=== PATIENT | male | born 1945 | race Caucasian/White ===

== ENCOUNTER 2018-05-06 09:59 | Outpatient (CLI) | payer MEDICARE, BC, SELFPAY ==
[2018-05-06 10:22] LABS: Abs Immature Grans 0.03 k/cumm (0.0-0.09); Absolute Basophil Count 0.04 k/cumm (0.0-0.2); Absolute Eosinophil Count 0.18 k/cumm (0.0-0.7); Absolute Lymphocyte Count 1.26 k/cumm (1.2-3.4); Absolute Monocyte Count 0.56 k/cumm (0.11-0.7); Absolute Neutrophil Count 4.98 k/cumm (1.2-6.7); Basophils % 0.6; Eosinophils % 2.6; HCT 46.1 % (40.0-50.0); HGB 15.2 g/dL (13.5-17.5); Immature Grans % 0.4; Lymphocytes % 17.9; Mean Corpuscular Hemoglobin 31.7 pg (27.0-33.0); Mean Platelet Volume 10.3 fL (8.0-11.0); Monocytes % 7.9; Neutrophils % 70.6; Platelet Count 317 x1000/uL (130-400); RBC Distribution Width 15.9 % (11.8-14.1); White Blood Cell Count 7.05 k/cumm (4.4-10.8)
[2018-05-06 11:28] LABS: ALT 21 U/L (12-78); AST 12 U/L (15-37); Albumin 3.9 g/dL (3.4-5.0); Alkaline Phosphatase 70 U/L (46-116); Anion Gap 6.1 mmol/L (3-11); BUN 17 mg/dL (7-18); Bilirubin, Total 0.4 mg/dL (0.2-1.0); CO2 28.9 mmol/L (21.0-32.0); CREATININE 1.13 mg/dL (0.70-1.30); Chloride 104 mmol/L (98-107); Glucose 92 mg/dL (70-100); Potassium 4.8 mmol/L (3.5-5.1); Sodium 139 mmol/L (136-145); Total Protein 6.7 g/dL (6.4-8.2)
== END 2018-05-06 10:19 ==
PROVIDERS: PCP Nurse Practitioner; Visit Provider Internal Medicine Rheumatology
DX: M06.4 Inflammatory polyarthropathy (principal); Z79.899 Other long term (current) drug therapy; G89.29 Other chronic pain
CPT/HCPCS: 36415; 80053; 85025

== ENCOUNTER 2018-05-15 13:07 | Outpatient (REF) | payer MEDICARE, BC, SELFPAY ==
[2018-05-18 08:49] LABS: PSA, Screening 0.5 ng/ml (0-6.5)
== END 2018-05-15 13:27 ==
LOC: NCHCN 13:07
PROVIDERS: PCP Nurse Practitioner; Visit Provider Nurse Practitioner
DX: R82.90 Unspecified abnormal findings in urine (principal); Z87.448 Personal history of other diseases of urinary system; Z12.5 Encounter for screening for malignant neoplasm of prostate
CPT/HCPCS: 84153; 87086

== ENCOUNTER 2018-05-18 15:26 | Outpatient (REF) | payer MEDICARE, BC, SELFPAY ==
[2018-05-18 22:19] LABS: Bilirubin Negative (Negative); Blood Trace-intact (Negative); Clarity Clear; Glucose Negative (Negative); Ketones Negative (Negative); Leukocyte Esterase Negative (Negative); Nitrite Negative (Negative); Specific Gravity 1.015 (1.005-1.025); Urobilinogen 0.2 EU/dL (Up TO 0.2)
[2018-05-18 22:35] LABS: Bacteria Negative HPF (Negative); C & S Indicated? No; Casts Negative LPF (Negative); Crystals Negative HPF (Negative); Epithelial Cells Negative HPF (Negative); Mucus Negative (Negative); Other Cells Negative (Negative); RBC 0-2 (0-2); WBC Negative HPF (0-5)
== END 2018-05-18 15:46 ==
LOC: NCHCN 15:26
PROVIDERS: PCP Nurse Practitioner; Visit Provider Nurse Practitioner
DX: R31.9 Hematuria, unspecified (principal)
CPT/HCPCS: 81003; 81015

== ENCOUNTER → 2018-06-04 13:41 | Outpatient (BNVA) | payer MEDICARE, BC, SELFPAY | PROVIDERS: PCP Nurse Practitioner; Visit Provider Nurse Practitioner Primary Care | DX: G47.33 Obstructive sleep apnea (adult) (pediatric) (principal); E66.9 Obesity, unspecified; E78.5 Hyperlipidemia, unspecified; I10 Essential (primary) hypertension; I49.5 Sick sinus syndrome; Z45.02 Encounter for adjustment and management of automatic implantable cardiac defibrillator | CPT/HCPCS: 93279; 99213 ==

== ENCOUNTER → 2018-06-26 09:46 | Outpatient (BNVA) | payer MEDICARE, BC, SELFPAY | PROVIDERS: PCP Nurse Practitioner; Visit Provider Urology | DX: R31.29 Other microscopic hematuria (principal) | CPT/HCPCS: 81003; 99214 ==

== ENCOUNTER 2018-09-07 15:41 | Outpatient (CLI) | payer MEDICARE, BC, SELFPAY ==
[2018-09-07 16:03] LABS: Abs Immature Grans 0.02 k/cumm (0.0-0.09); Absolute Basophil Count 0.02 k/cumm (0.0-0.2); Absolute Eosinophil Count 0.19 k/cumm (0.0-0.7); Absolute Lymphocyte Count 1.15 k/cumm (1.2-3.4); Absolute Monocyte Count 0.55 k/cumm (0.11-0.7); Absolute Neutrophil Count 4.48 k/cumm (1.2-6.7); Basophils % 0.3; HCT 51.1 % (40.0-50.0); Immature Grans % 0.3; Lymphocytes % 17.9; Mean Corp. HGB Concentration 33.3 g/dL (32.0-36.0); Mean Corpuscular Hemoglobin 31.7 pg (27.0-33.0); Mean Corpuscular Volume 95.2 fL (80-95); Mean Platelet Volume 10.6 fL (8.0-11.0); Monocytes % 8.6; Neutrophils % 69.9; Platelet Count 298 x1000/uL (130-400); RBC 5.37 m/cumm (4.50-6.00); RBC Distribution Width 16.2 % (11.8-14.1); White Blood Cell Count 6.41 k/cumm (4.4-10.8)
[2018-09-07 17:04] LABS: ALT 27 U/L (12-78); AST 22 U/L (15-37); Albumin 4.3 g/dL (3.4-5.0); Alkaline Phosphatase 75 U/L (46-116); Anion Gap 10.4 mmol/L (3-11); BUN 17 mg/dL (7-18); Bilirubin, Total 0.8 mg/dL (0.2-1.0); CO2 28.6 mmol/L (21.0-32.0); CREATININE 1.42 mg/dL (0.70-1.30); Calcium 9.6 mg/dL (8.5-10.1); Chloride 103 mmol/L (98-107); Estimated GFR 48.73 (mL/min/1.73m2); Glucose 103 mg/dL (70-100); Sodium 142 mmol/L (136-145); Total Protein 7.3 g/dL (6.4-8.2)
== END 2018-09-07 16:01 ==
PROVIDERS: PCP Nurse Practitioner; Visit Provider Internal Medicine Rheumatology
DX: M06.9 Rheumatoid arthritis, unspecified (principal); Z87.39 Personal history of other diseases of the musculoskeletal system and connective tissue
CPT/HCPCS: 36415; 80053; 85025

== ENCOUNTER 2018-12-12 00:12 | Outpatient (CLI) | payer MEDICARE, BC, SELFPAY ==
[2018-12-12 10:02] LABS: Abs Immature Grans 0.01 k/cumm (0.0-0.09); Absolute Basophil Count 0.03 k/cumm (0.0-0.2); Absolute Eosinophil Count 0.13 k/cumm (0.0-0.7); Absolute Lymphocyte Count 1.09 k/cumm (1.2-3.4); Absolute Monocyte Count 0.64 k/cumm (0.11-0.7); Absolute Neutrophil Count 5.04 k/cumm (1.2-6.7); Basophils % 0.4; Eosinophils % 1.9; HCT 53.3 % (40.0-50.0); HGB 17.4 g/dL (13.5-17.5); Immature Grans % 0.1; Lymphocytes % 15.7; Mean Corp. HGB Concentration 32.6 g/dL (32.0-36.0); Mean Corpuscular Hemoglobin 30.9 pg (27.0-33.0); Mean Corpuscular Volume 94.5 fL (80-95); Mean Platelet Volume 11.5 fL (8.0-11.0); Monocytes % 9.2; Neutrophils % 72.7; Platelet Count 339 x1000/uL (130-400); RBC 5.64 m/cumm (4.50-6.00); RBC Distribution Width 16.8 % (11.8-14.1); White Blood Cell Count 6.94 k/cumm (4.4-10.8)
[2018-12-12 10:56] LABS: Iron 69 ug/dL (50-175); Total Iron Binding Capacity 294 ug/dL (250-450); Transferrin Sat 23 % (20-55)
[2018-12-12 10:57] LABS: ALT 20 U/L (12-78); AST 5 U/L (15-37); Albumin 3.8 g/dL (3.4-5.0); Alkaline Phosphatase 84 U/L (46-116); BUN 16 mg/dL (7-18); Bilirubin, Total 0.6 mg/dL (0.2-1.0); CREATININE 1.09 mg/dL (0.70-1.30); Chloride 105 mmol/L (98-107); Glucose 116 mg/dL (70-100); Potassium 5.2 mmol/L (3.5-5.1); Sodium 140 mmol/L (136-145); Total Protein 6.8 g/dL (6.4-8.2)
[2018-12-12 11:10] LABS: Calcium 8.7 mg/dL (8.5-10.1)
[2018-12-12 11:20] LABS: Magnesium 2.1 mg/dL (1.8-2.4); Vitamin B12 560 pg/mL (193-986)
== END 2018-12-12 00:32 ==
PROVIDERS: Internal Medicine Rheumatology; PCP Nurse Practitioner; Visit Provider Nurse Practitioner Family
DX: I10 Essential (primary) hypertension (principal); M06.4 Inflammatory polyarthropathy; I49.5 Sick sinus syndrome; E78.5 Hyperlipidemia, unspecified; N18.3 Chronic kidney disease, stage 3 (moderate); K21.9 Gastro-esophageal reflux disease without esophagitis; Z87.39 Personal history of other diseases of the musculoskeletal system and connective tissue; Z79.899 Other long term (current) drug therapy; G25.81 Restless legs syndrome; R73.09 Other abnormal glucose; R71.8 Other abnormality of red blood cells
CPT/HCPCS: 36415; 80053; 82607; 83540; 83550; 83735; 85025

== ENCOUNTER → 2019-01-26 09:24 | Outpatient (BNVA) | payer MEDICARE, BC, SELFPAY | PROVIDERS: PCP Nurse Practitioner; Visit Provider Nurse Practitioner Primary Care | DX: G47.33 Obstructive sleep apnea (adult) (pediatric) (principal); E66.9 Obesity, unspecified; E78.5 Hyperlipidemia, unspecified; I12.9 Hypertensive chronic kidney disease with stage 1 through stage 4 chronic kidney disease, or unspecified chronic kidney disease; Z45.010 Encounter for checking and testing of cardiac pacemaker pulse generator [battery]; N18.3 Chronic kidney disease, stage 3 (moderate); R55 Syncope and collapse | CPT/HCPCS: 93288; 99214 ==

== ENCOUNTER 2019-01-28 08:29 | Outpatient (CLI) | payer MEDICARE, BC, SELFPAY ==
--- NOTE | 2019-01-28 08:45 | MERGE_ITS ---
*[facility]* *[facility]* [address] [place] [address] Date of study: 01/28/2019 Transthoracic Echocardiography M-mode, complete 2D, complete spectral Doppler, and color Doppler *STUDY CONCLUSIONS* Summary: 1. Left ventricle: The cavity size was normal. Wall thickness was increased in a pattern of mild LVH. Systolic function was normal. The estimated ejection fraction was 60-65%. Wall motion was normal; there were no regional wall motion abnormalities. 2. Right ventricle: The cavity size was normal. Systolic function was normal. 3. Aortic valve: Trileaflet; normal thickness, mildly calcified leaflets. There was mild to moderate regurgitation. *PATIENT PRESENTATION* Height: 182.9cm (72in ) S/D Pressure: 133 / 77 Weight: 101.2kg (222.5lb ) BSA: 2.29m^2 Test start time: 08:45 AM. Test stop time: 09:45 AM. PERFORMING Unknown PERFORMING [facility] CONSULTING Claire Lopez Aprn ORDERING Claire Lopez Aprn REFERRING Claire Lopez Aprn BOND MANAGER RT Eliceo (Alissa)(SAMREEN)RIAN *PROCEDURE DATA* Procedure information: This study was interpreted by [facility]. Pertinent images and digital data are archived for permanent storage and are available for subsequent review. Comparison was made to the study of 10/29/2005. Study status: Routine. Transthoracic echocardiography. M-mode, complete 2D, complete spectral Doppler, and color Doppler. A Transthoracic Echocardiogram was performed. Scanning was performed from the parasternal, apical, subcostal, and suprasternal notch acoustic windows. Images were obtained using an [id number] cardiac ultrasound machine. Image quality was adequate. Study completion: The patient tolerated the procedure well. There were no complications. History: PMH: Dizziness R42 HTN. *CARDIAC ANATOMY* Left ventricle: The cavity size was normal. Wall thickness was increased in a pattern of mild LVH. Systolic function was normal. The estimated ejection fraction was 60-65%. Wall motion was normal; there were no regional wall motion abnormalities. Findings consistent with diastolic dysfunction. There was no evidence of elevated ventricular filling pressure by Doppler parameters. Aortic valve: Trileaflet; normal thickness, mildly calcified leaflets. Mobility was not restricted. Doppler: Transvalvular velocity was within the normal range. There was no stenosis. There was mild to moderate regurgitation. VTI ratio of LVOT to aortic valve: 0.72. Valve area (VTI): 2.8cm^2. Indexed valve area (VTI): 1.2cm^2/m^2. Peak velocity ratio of LVOT to aortic valve: 0.7. Valve area (Vmax): 2.7cm^2. Indexed valve area (Vmax): 1.2cm^2/m^2. Mean velocity ratio of LVOT to aortic valve: 0.74. Valve area (Vmean): 2.9cm^2. Indexed valve area (Vmean): 1.3cm^2/m^2. Mean gradient (S): 5.5mm Hg. Peak gradient (S): 9.9mm Hg. Aorta: Aortic root: The aortic root was normal in size. Mitral valve: Mildly thickened leaflets. Mobility was not restricted. Doppler: Transvalvular velocity was within the normal range. There was no evidence for stenosis. There was trivial regurgitation. Valve area by pressure half-time: 3cm^2. Indexed valve area by pressure half-time: 1.3cm^2/m^2. Peak gradient (D): 4.5mm Hg. Left atrium: The atrium was normal in size. Right ventricle: The cavity size was normal. Systolic function was normal. Pulmonic valve: Poorly visualized. Doppler: Transvalvular velocity was within the normal range. There was no evidence for stenosis. There was no significant regurgitation. Tricuspid valve: Structurally normal valve. Doppler: Transvalvular velocity was within the normal range. There was no evidence for stenosis. There was trivial regurgitation. Pulmonary artery: Poorly visualized. Pulmonary systolic pressure was within the normal range, in the range of 20mm Hg to 25mm Hg. Right atrium: The atrium was normal in size. Device wire noted in right atrium. Pericardium: There was no pericardial effusion. Systemic veins: Inferior vena cava: Not well visualized. The vessel was patent and normal in size. Measurements Left ventricle Value Reference LV ID, ED, PLAX 4.6 cm 3.5 - 6.0 LV ID, ES, PLAX 2.7 cm 2.1 - 4.0 LV PW thickness, ED, PLAX 1.2 cm LV end-diastolic volume, 1-p A2C 97 ml LV ejection fraction, 1-p A2C 62 % LV end-diastolic volume, 1-p A4C 110 ml LV ejection fraction, 1-p A4C 64 % LV e', lateral 0.083 m/sec LV E/e', lateral 13 LV e', medial 0.064 m/sec LV E/e', medial 17 LV e', average 0.074 m/sec LV E/e', average 14 Ventricular septum Value Reference IVS thickness, ED, PLAX 1.3 cm LVOT Value Reference LVOT ID, A-P 2.2 cm LVOT area 3.9 cm^2 LVOT peak velocity, S 1.1 m/sec LVOT mean velocity, S 0.83 m/sec LVOT VTI, S 27.3 cm LVOT peak gradient, S 4.8 mm Hg LVOT mean gradient, S 3 mm Hg Stroke volume (SV), LVOT DP 107 ml Stroke index (SV/bsa), LVOT DP 47 ml/m^2 Aortic valve Value Reference Aortic valve peak velocity, S 1.6 m/sec Aortic valve mean velocity, S 1.1 m/sec Aortic valve VTI, S 38.0 cm Aortic mean gradient, S 5.5 mm Hg Aortic peak gradient, S 9.9 mm Hg VTI ratio, LVOT/AV 0.72 Aortic valve area, VTI 2.8 cm^2 Velocity ratio, peak, LVOT/AV 0.7 Aortic valve area, peak velocity 2.7 cm^2 Velocity ratio, mean, LVOT/AV 0.74 Aortic valve area, mean velocity 2.9 cm^2 Aortic valve area/bsa, mean velocity 1.3 cm^2/m^2 Aortic regurg deceleration 223 cm/s^2 Aortic regurg pressure half-time 438 ms Aorta Value Reference Aortic root ID, ED 4.0 cm Left atrium Value Reference LA ID, A-P, ES 4.6 cm LA ID/bsa, A-P 2.0 cm/m^2 <=2.2 LA volume/bsa, ES, 1-p A4C 30 ml/m^2 LA volume, ES, 2-p 52 ml LA volume/bsa, ES, 2-p 23 ml/m^2 LA/aortic root ratio 1.16 Mitral valve Value Reference Mitral E-wave peak velocity 1.06 m/sec Mitral A-wave peak velocity 0.85 m/sec Mitral deceleration time (H) 257 ms 150 - 230 Mitral pressure half-time 75 ms Mitral peak gradient, D 4.5 mm Hg Mitral E/A ratio, peak 1.25 Mitral valve area, PHT, DP 3 cm^2 Tricuspid valve Value Reference Tricuspid regurg peak velocity 2.3 m/sec Tricuspid peak RV-RA gradient 21.4 mm Hg Right atrium Value Reference RA area, ES, A4C 14.9 cm^2 8.3 - 19.5 Legend: (L) and (H) bipin values outside specified reference range. I have personally reviewed the images and have reviewed and edited the reported findings. Electronically signed by Vaughn Gandhi 01/28/2019 11:23
== END 2019-01-28 08:49 ==
PROVIDERS: PCP Nurse Practitioner; Visit Provider Nurse Practitioner Primary Care
DX: I10 Essential (primary) hypertension (principal); R42 Dizziness and giddiness; I35.1 Nonrheumatic aortic (valve) insufficiency
CPT/HCPCS: 93306

== ENCOUNTER 2019-02-01 02:17 | Outpatient (CLI) | payer MEDICARE, BC, SELFPAY ==
--- NOTE | 2019-02-10 09:50 | HOLTER_ITS ---
HOLTER MONITOR DATE OF DICTATION February 10, 2019 48-hour study. Baseline rhythm sinus. Rare single PAC. 2 burst SVT, longest 4-beat duration, fastest 164. No atrial fibrillation. Rare single PVC. No VT. No bradycardia. No symptoms. Average heart rate 68 beats per minute, range 60-112 beats per minute. Kalia York M.D. RAFAELA/jaguar T - 02/10/2019
== END 2019-02-01 02:37 ==
PROVIDERS: PCP Nurse Practitioner; Visit Provider Nurse Practitioner Primary Care
DX: R42 Dizziness and giddiness (principal); I49.1 Atrial premature depolarization; I49.3 Ventricular premature depolarization
CPT/HCPCS: 93225

== ENCOUNTER 2019-02-05 08:20 | Outpatient (CLI) | payer MEDICARE, BC, SELFPAY | END 2019-02-05 08:40 | PROVIDERS: PCP Nurse Practitioner; Visit Provider Nurse Practitioner Primary Care | DX: R42 Dizziness and giddiness (principal); I49.1 Atrial premature depolarization; I49.3 Ventricular premature depolarization | CPT/HCPCS: 93226 ==

== ENCOUNTER 2019-02-10 09:02 | Outpatient (CLI) | payer MEDICARE, BC, SELFPAY | END 2019-02-10 09:22 | PROVIDERS: PCP Nurse Practitioner; Referring Provider Nurse Practitioner; Visit Provider Internal Medicine Interventional Cardiology | DX: R42 Dizziness and giddiness (principal); I49.1 Atrial premature depolarization; I49.3 Ventricular premature depolarization | CPT/HCPCS: 93227 ==

== ENCOUNTER 2019-05-01 08:54 | Outpatient (CLI) | payer MEDICARE, BC, SELFPAY ==
[2019-05-01 10:17] LABS: Abs Immature Grans 0.03 k/cumm (0.0-0.09); Absolute Basophil Count 0.03 k/cumm (0.0-0.2); Absolute Eosinophil Count 0.15 k/cumm (0.0-0.7); Absolute Lymphocyte Count 1.35 k/cumm (1.2-3.4); Absolute Monocyte Count 0.86 k/cumm (0.11-0.7); Absolute Neutrophil Count 5.86 k/cumm (1.2-6.7); Basophils % 0.4; Eosinophils % 1.8; HGB 18.8 g/dL (13.5-17.5); Immature Grans % 0.4; Lymphocytes % 16.3; Mean Corp. HGB Concentration 31.3 g/dL (32.0-36.0); Mean Corpuscular Hemoglobin 26.5 pg (27.0-33.0); Mean Corpuscular Volume 84.5 fL (80-95); Mean Platelet Volume 10.9 fL (8.0-11.0); Monocytes % 10.4; Neutrophils % 70.7; Platelet Count 426 x1000/uL (130-400); RBC Distribution Width 18.7 % (11.8-14.1); White Blood Cell Count 8.28 k/cumm (4.4-10.8)
[2019-05-01 10:31] LABS: ALT 24 U/L (16-63); AST 18 U/L (15-37); Albumin 4.3 g/dL (3.4-5.0); Alkaline Phosphatase 88 U/L (46-116); Anion Gap 5.1 mmol/L (3-11); BUN 16 mg/dL (7-18); Bilirubin, Total 0.7 mg/dL (0.2-1.0); CO2 30.9 mmol/L (21.0-32.0); Calcium 9.5 mg/dL (8.5-10.1); Chloride 103 mmol/L (98-107); Estimated GFR 53.82 (mL/min/1.73m2); Glucose 93 mg/dL (70-100); Potassium 5.6 mmol/L (3.5-5.1); Sodium 139 mmol/L (136-145); Total Protein 7.5 g/dL (6.4-8.2)
== END 2019-05-01 09:14 ==
PROVIDERS: PCP Family Medicine; Visit Provider Internal Medicine Rheumatology
DX: M19.90 Unspecified osteoarthritis, unspecified site (principal); Z79.899 Other long term (current) drug therapy
CPT/HCPCS: 36415; 80053; 85025

== ENCOUNTER 2019-05-20 11:36 | Outpatient (REF) | payer MEDICARE, BC, SELFPAY ==
[2019-05-20 22:24] LABS: Abs Immature Grans 0.05 k/cumm (0.0-0.09); Absolute Basophil Count 0.04 k/cumm (0.0-0.2); Absolute Eosinophil Count 0.18 k/cumm (0.0-0.7); Absolute Lymphocyte Count 1.37 k/cumm (1.2-3.4); Absolute Monocyte Count 0.74 k/cumm (0.11-0.7); Absolute Neutrophil Count 6.15 k/cumm (1.2-6.7); Basophils % 0.5; Eosinophils % 2.1; Immature Grans % 0.6; Lymphocytes % 16.1; Mean Corp. HGB Concentration 31.3 g/dL (32.0-36.0); Mean Corpuscular Hemoglobin 25.6 pg (27.0-33.0); Mean Corpuscular Volume 82.1 fL (80-95); Mean Platelet Volume 11.8 fL (8.0-11.0); Monocytes % 8.7; Platelet Count 471 x1000/uL (130-400); RBC 7.02 m/cumm (4.50-6.00); RBC Distribution Width 18.9 % (11.8-14.1); White Blood Cell Count 8.53 k/cumm (4.4-10.8)
[2019-05-20 22:39] LABS: HCT 57.6 % (40.0-50.0)
[2019-05-20 22:49] LABS: Diff Comment RBC Morph Reviewed; RBC Morphology Normal
[2019-05-20 22:55] LABS: ALT 30 U/L (16-63); AST 22 U/L (15-37); Albumin 4.3 g/dL (3.4-5.0); Alkaline Phosphatase 99 U/L (46-116); Anion Gap 11.2 mmol/L (3-11); BUN 19 mg/dL (7-18); Bilirubin, Total 0.6 mg/dL (0.2-1.0); CO2 25.8 mmol/L (21.0-32.0); CREATININE 1.27 mg/dL (0.70-1.30); Calcium 9.5 mg/dL (8.5-10.1); Chloride 102 mmol/L (98-107); Estimated GFR 55.29 (mL/min/1.73m2); Folate > 20.0 ng/mL (8.6-20.0); Glucose 114 mg/dL (74-106); Magnesium 2.2 mg/dL (1.8-2.4); Potassium 5.3 mmol/L (3.5-5.1); Sodium 139 mmol/L (136-145); TSH (W/Ref FT4) 2.15 uIU/mL (0.36-3.74); Total Protein 7.7 g/dL (6.4-8.2); Vitamin B12 575 pg/mL (193-986)
[2019-05-20 23:13] LABS: ESR 3 mm/hr (1-20)
== END 2019-05-20 11:56 ==
LOC: NCHCN 11:36
PROVIDERS: PCP Family Medicine; Visit Provider Nurse Practitioner Family
DX: I10 Essential (primary) hypertension (principal); R42 Dizziness and giddiness; R73.09 Other abnormal glucose; R55 Syncope and collapse; E87.5 Hyperkalemia; D75.1 Secondary polycythemia; M06.4 Inflammatory polyarthropathy; N18.3 Chronic kidney disease, stage 3 (moderate)
CPT/HCPCS: 80053; 85652; 82607; 82746; 83036; 83735; 84443; 85025

== ENCOUNTER 2019-05-26 01:18 | Outpatient (CLI) | payer MEDICARE, BC, SELFPAY ==
--- NOTE | 2019-05-26 14:01 | DI.US_ITS ---
EXAM: US CAROTID CLINICAL HISTORY: DIZZINESS, R42, NEAR SYNCOPE, R55, HEADACHES, R51 TECHNIQUE: Ultrasound performed using standard protocol. COMPARISON: No previous for comparison. FINDINGS: On the right, there is mild calcific plaque seen in the carotid bulb. No hemodynamically significant velocity elevations are present. The right vertebral artery is antegrade. On the left, there is mild calcific plaque seen in the bulb and the origin of the internal carotid ar krys. No hemodynamically significant velocity elevations are present. The left vertebral artery is antegrade IMPRESSION: No evidence of hemodynamically significant carotid artery stenosis.
== END 2019-05-26 01:38 ==
PROVIDERS: PCP Family Medicine; Visit Provider Nurse Practitioner Family
DX: R42 Dizziness and giddiness (principal); R55 Syncope and collapse; R51 Headache
CPT/HCPCS: 93880

== ENCOUNTER 2019-06-03 00:32 | Outpatient (CLI) | payer MEDICARE, BC, SELFPAY ==
--- NOTE | 2019-06-03 13:16 | DI.CT_ITS ---
EXAM: CT HEAD WO/W CLINICAL HISTORY: DIZZINESS, R42, NEAR SYNCOPE, R55, HEADACHES X 1 MONTH, R51 TECHNIQUE: Cranial CT was performed prior to and following intravenous infusion of 100 cc of Omnipaq ue 350. COMPARISON: No exams were available for comparison FINDINGS: There is moderate generalized cerebral atrophy. There is no evidence of intracranial hemorrhage, mas s effect or midline shift. Post contrast imaging shows no mass lesion or enhancing lesion and the ci rcle of Landon vasculature is unremarkable in appearance. No aneurysm or significant stenosis. The o rbital and temporal bone structures appear intact. Mastoid air cells and visualized paranasal sinuse s are clear. IMPRESSION: Cranial CT negative for age.
[2019-06-03] MEDS: Omnipaque 350 MG/ML 100 ML BTL IV (13:46)
== END 2019-06-03 00:52 ==
PROVIDERS: PCP Family Medicine; Visit Provider Nurse Practitioner Family
DX: R42 Dizziness and giddiness (principal); R55 Syncope and collapse; R51 Headache; G31.89 Other specified degenerative diseases of nervous system
CPT/HCPCS: 70470; J3490

== ENCOUNTER → 2019-06-22 13:26 | Outpatient (BNVA) | payer MEDICARE, BC, SELFPAY | PROVIDERS: PCP Family Medicine; Referring Provider Nurse Practitioner; Visit Provider Urology | DX: R31.29 Other microscopic hematuria (principal) | CPT/HCPCS: 81002; 99213 ==

== ENCOUNTER 2019-10-06 13:33 | Outpatient (REF) | payer MEDICARE, BC, SELFPAY ==
[2019-10-11 11:43] LABS: JAK2 Result see interpretation
== END 2019-10-06 13:53 ==
LOC: LBN 13:33
PROVIDERS: PCP Family Medicine; Visit Provider Student in an Organized Health Care Education/Training Program
DX: D75.1 Secondary polycythemia (principal)
CPT/HCPCS: 81270

== ENCOUNTER 2019-11-09 01:45 | Outpatient (CLI) | payer MEDICARE, BC, SELFPAY ==
[2019-11-10 19:14] LABS: Erythropoietin 1.6 mIU/mL (2.6 - 18.5)
== END 2019-11-09 02:05 ==
PROVIDERS: PCP Family Medicine; Visit Provider Student in an Organized Health Care Education/Training Program
DX: D75.1 Secondary polycythemia (principal)
CPT/HCPCS: 36415; 82668

== ENCOUNTER 2019-12-14 02:38 | Outpatient (CLI) | payer MEDICARE, BC, SELFPAY ==
[2019-12-14 07:23] LABS: Abs Immature Grans 0.03 k/cumm (0.0-0.09); Absolute Basophil Count 0.05 k/cumm (0.0-0.2); Absolute Eosinophil Count 0.17 k/cumm (0.0-0.7); Absolute Neutrophil Count 3.55 k/cumm (1.2-6.7); Eosinophils % 3.3; HCT 55.1 % (40.0-50.0); HGB 17.3 g/dL (13.5-17.5); Immature Grans % 0.6 %; Lymphocytes % 21.2; Mean Corp. HGB Concentration 31.4 g/dL (32.0-36.0); Mean Corpuscular Hemoglobin 26.4 pg (27.0-33.0); Mean Platelet Volume 10.2 fL (8.0-11.0); Monocytes % 5.8; Neutrophils % 68.1; Platelet Count 454 x1000/uL (130-400); RBC 6.56 m/cumm (4.50-6.00); RBC Distribution Width 23.5 % (11.8-14.1)
[2019-12-14 07:48] LABS: Anisocytosis 3+; Diff Comment RBC Morph Reviewed; Poikilocytes 1+; Polychromasia Present
[2019-12-14 08:19] LABS: ALT 22 U/L (16-63); AST 20 U/L (15-37); Albumin 4.1 g/dL (3.4-5.0); Alkaline Phosphatase 83 U/L (46-116); BUN 18 mg/dL (7-18); Bilirubin, Total 0.7 mg/dL (0.2-1.0); CREATININE 1.22 mg/dL (0.70-1.30); Calcium 9.6 mg/dL (8.5-10.1); Chloride 102 mmol/L (98-107); Estimated GFR 57.75 (mL/min/1.73m2); Glucose 119 mg/dL (74-106); Potassium 5.1 mmol/L (3.5-5.1); Sodium 138 mmol/L (136-145)
== END 2019-12-14 02:58 ==
PROVIDERS: PCP Family Medicine; Visit Provider Family Medicine
DX: D45 Polycythemia vera (principal)
CPT/HCPCS: 36415; 80053; 85025

== ENCOUNTER 2019-12-20 02:11 | Outpatient (CLI) | payer MEDICARE, BC, SELFPAY ==
[2019-12-20 10:54] LABS: Abs Immature Grans 0.01 k/cumm (0.0-0.09); Absolute Basophil Count 0.02 k/cumm (0.0-0.2); Absolute Eosinophil Count 0.12 k/cumm (0.0-0.7); Absolute Lymphocyte Count 0.92 k/cumm (1.2-3.4); Absolute Monocyte Count 0.34 k/cumm (0.11-0.7); Absolute Neutrophil Count 4.66 k/cumm (1.2-6.7); Basophils % 0.3; HCT 50.3 % (40.0-50.0); HGB 15.9 g/dL (13.5-17.5); Immature Grans % 0.2 %; Lymphocytes % 15.2; Mean Corp. HGB Concentration 31.6 g/dL (32.0-36.0); Mean Corpuscular Hemoglobin 26.8 pg (27.0-33.0); Mean Corpuscular Volume 84.8 fL (80-95); Mean Platelet Volume 10.4 fL (8.0-11.0); Monocytes % 5.6; Neutrophils % 76.7; Platelet Count 365 x1000/uL (130-400); RBC 5.93 m/cumm (4.50-6.00); RBC Distribution Width 23.6 % (11.8-14.1); White Blood Cell Count 6.07 k/cumm (4.4-10.8)
[2019-12-20 11:18] LABS: Anisocytosis 3+; Diff Comment RBC Morph Reviewed
[2019-12-20 11:19] LABS: Poikilocytes 1+
[2019-12-20 11:21] LABS: ALT 35 U/L (16-63); AST 32 U/L (15-37); Albumin 3.8 g/dL (3.4-5.0); Alkaline Phosphatase 73 U/L (46-116); Anion Gap 9.4 mmol/L (3-11); BUN 18 mg/dL (7-18); Bilirubin, Total 0.4 mg/dL (0.2-1.0); CO2 24.6 mmol/L (21.0-32.0); CREATININE 1.01 mg/dL (0.70-1.30); Calcium 8.8 mg/dL (8.5-10.1); Chloride 105 mmol/L (98-107); Glucose 131 mg/dL (74-106); Potassium 4.8 mmol/L (3.5-5.1); Sodium 139 mmol/L (136-145); Total Protein 6.5 g/dL (6.4-8.2)
== END 2019-12-20 02:31 ==
PROVIDERS: PCP Family Medicine; Visit Provider Student in an Organized Health Care Education/Training Program
DX: D45 Polycythemia vera (principal)
CPT/HCPCS: 36415; 80053; 85025

== ENCOUNTER 2019-12-27 01:39 | Outpatient (CLI) | payer MEDICARE, BC, SELFPAY ==
[2019-12-27 07:51] LABS: Absolute Basophil Count 0.02 k/cumm (0.0-0.2); Absolute Eosinophil Count 0.07 k/cumm (0.0-0.7); Absolute Lymphocyte Count 0.97 k/cumm (1.2-3.4); Absolute Monocyte Count 0.25 k/cumm (0.11-0.7); Basophils % 0.5; Eosinophils % 1.7; Lymphocytes % 24.2; Mean Corpuscular Hemoglobin 27.4 pg (27.0-33.0); Mean Corpuscular Volume 85.6 fL (80-95); Mean Platelet Volume 10.2 fL (8.0-11.0); Monocytes % 6.2; Neutrophils % 67.4; Platelet Count 199 x1000/uL (130-400); RBC 5.84 m/cumm (4.50-6.00); White Blood Cell Count 4.01 k/cumm (4.4-10.8)
[2019-12-27 08:32] LABS: ALT 32 U/L (16-63); AST 30 U/L (15-37); Alkaline Phosphatase 70 U/L (46-116); Anion Gap 9.2 mmol/L (3-11); BUN 19 mg/dL (7-18); Bilirubin, Total 0.8 mg/dL (0.2-1.0); CO2 26.8 mmol/L (21.0-32.0); CREATININE 1.09 mg/dL (0.70-1.30); Calcium 9.2 mg/dL (8.5-10.1); Chloride 103 mmol/L (98-107); Glucose 117 mg/dL (74-106); Potassium 4.3 mmol/L (3.5-5.1); Sodium 139 mmol/L (136-145); Total Protein 6.7 g/dL (6.4-8.2)
== END 2019-12-27 01:59 ==
PROVIDERS: PCP Family Medicine; Visit Provider Student in an Organized Health Care Education/Training Program
DX: D45 Polycythemia vera (principal)
CPT/HCPCS: 36415; 80053; 85025

== ENCOUNTER 2020-01-03 02:30 | Outpatient (CLI) | payer MEDICARE, BC, SELFPAY ==
[2020-01-03 09:34] LABS: Abs Immature Grans 0.01 k/cumm (0.0-0.09); Absolute Basophil Count 0.01 k/cumm (0.0-0.2); Absolute Eosinophil Count 0.05 k/cumm (0.0-0.7); Absolute Lymphocyte Count 0.84 k/cumm (1.2-3.4); Absolute Monocyte Count 0.32 k/cumm (0.11-0.7); Absolute Neutrophil Count 3.67 k/cumm (1.2-6.7); Basophils % 0.2; HCT 47.8 % (40.0-50.0); HGB 15.2 g/dL (13.5-17.5); Immature Grans % 0.2 %; Lymphocytes % 17.1; Mean Corp. HGB Concentration 31.8 g/dL (32.0-36.0); Mean Platelet Volume 10.9 fL (8.0-11.0); Monocytes % 6.5; RBC 5.43 m/cumm (4.50-6.00); RBC Distribution Width 24.8 % (11.8-14.1)
[2020-01-03 09:47] LABS: ALT 29 U/L (16-63); AST 29 U/L (15-37); Alkaline Phosphatase 71 U/L (46-116); Anion Gap 10.4 mmol/L (3-11); BUN 20 mg/dL (7-18); Bilirubin, Total 0.8 mg/dL (0.2-1.0); CO2 24.6 mmol/L (21.0-32.0); CREATININE 1.08 mg/dL (0.70-1.30); Calcium 8.8 mg/dL (8.5-10.1); Chloride 103 mmol/L (98-107); Glucose 108 mg/dL (74-106); Potassium 4.3 mmol/L (3.5-5.1); Sodium 138 mmol/L (136-145); Total Protein 6.7 g/dL (6.4-8.2)
[2020-01-03 10:03] LABS: Anisocytosis 3+; Diff Comment RBC Morph Reviewed; Platelet Count 161 x1000/uL (130-400)
[2020-01-03 10:05] LABS: Poikilocytes 1+
== END 2020-01-03 02:50 ==
PROVIDERS: PCP Family Medicine; Visit Provider Student in an Organized Health Care Education/Training Program
DX: D45 Polycythemia vera (principal)
CPT/HCPCS: 36415; 80053; 85025

== ENCOUNTER 2020-01-10 02:23 | Outpatient (CLI) | payer MEDICARE, BC, SELFPAY ==
[2020-01-10 07:43] LABS: Abs Immature Grans 0.01 k/cumm (0.0-0.09); Absolute Basophil Count 0.02 k/cumm (0.0-0.2); Absolute Eosinophil Count 0.04 k/cumm (0.0-0.7); Absolute Lymphocyte Count 1.03 k/cumm (1.2-3.4); Absolute Monocyte Count 0.18 k/cumm (0.11-0.7); Absolute Neutrophil Count 2.75 k/cumm (1.2-6.7); Basophils % 0.5; HCT 44.1 % (40.0-50.0); Immature Grans % 0.2 %; Lymphocytes % 25.6; Mean Corp. HGB Concentration 31.7 g/dL (32.0-36.0); Mean Corpuscular Hemoglobin 28.2 pg (27.0-33.0); Mean Corpuscular Volume 88.9 fL (80-95); Mean Platelet Volume 10.5 fL (8.0-11.0); Monocytes % 4.5; Neutrophils % 68.2; Platelet Count 175 x1000/uL (130-400); RBC 4.96 m/cumm (4.50-6.00); RBC Distribution Width 25.6 % (11.8-14.1); White Blood Cell Count 4.03 k/cumm (4.4-10.8)
[2020-01-10 07:58] LABS: Anisocytosis 3+; Diff Comment RBC Morph Reviewed
[2020-01-10 07:59] LABS: Poikilocytes 1+
[2020-01-10 08:26] LABS: ALT 28 U/L (16-63); AST 28 U/L (15-37); Albumin 3.8 g/dL (3.4-5.0); Alkaline Phosphatase 59 U/L (46-116); BUN 23 mg/dL (7-18); Bilirubin, Total 0.6 mg/dL (0.2-1.0); CREATININE 1.02 mg/dL (0.70-1.30); Calcium 8.7 mg/dL (8.5-10.1); Chloride 106 mmol/L (98-107); Glucose 114 mg/dL (74-106); Potassium 4.3 mmol/L (3.5-5.1); Sodium 140 mmol/L (136-145); Total Protein 6.4 g/dL (6.4-8.2)
== END 2020-01-10 02:43 ==
PROVIDERS: PCP Family Medicine; Visit Provider Student in an Organized Health Care Education/Training Program
DX: D45 Polycythemia vera (principal)
CPT/HCPCS: 36415; 80053; 85025

== ENCOUNTER 2020-01-24 07:04 | Outpatient (CLI) | payer MEDICARE, BC, SELFPAY ==
[2020-01-24 07:48] LABS: Abs Immature Grans 0.01 10^3/uL (0.0-0.06); Absolute Basophil Count 0.03 10^3/uL (0.0-0.2); Absolute Eosinophil Count 0.04 10^3/uL (0.0-0.7); Absolute Lymphocyte Count 0.81 10^3/uL (1.2-3.4); Absolute Monocyte Count 0.31 10^3/uL (0.1-0.8); Absolute Neutrophil Count 1.37 10^3/uL (1.2-6.7); Basophils % 1.2; Eosinophils % 1.6; HCT 41.2 % (40.0-50.0); HGB 13.3 g/dL (13.5-17.5); Immature Grans % 0.4; Lymphocytes % 31.5; MCH 30.5 pg (27.0-33.0); MCHC 32.3 % (32.0-36.0); MCV 94.5 fL (80-95); MPV 10.6 fL (8.0-11.0); Monocytes % 12.1; Neutrophils % 53.2; Nucleated RBC 0 %; RBC 4.36 10^6/uL (4.36-5.78); RDW 26.2 % (11.8-14.1); RDW-SD 89.9 fL; WBC 2.57 10^3/uL (4.4-10.8)
[2020-01-24 08:07] LABS: Anisocytosis 3+; Diff Comment PLT Morph Reviewed; Poikilocytes 1+
[2020-01-24 08:56] LABS: ALT 21 U/L (16-63); AST 18 U/L (15-37); Albumin 3.7 g/dL (3.4-5.0); Alkaline Phosphatase 72 U/L (46-116); Anion Gap 10.4 mmol/L (3-11); BUN 20 mg/dL (7-18); Bilirubin, Total 0.6 mg/dL (0.2-1.0); CO2 25.6 mmol/L (21.0-32.0); Calcium 8.9 mg/dL (8.5-10.1); Chloride 105 mmol/L (98-107); Glucose 128 mg/dL (74-106); Potassium 4.9 mmol/L (3.5-5.1); Sodium 141 mmol/L (136-145); Total Protein 6.5 g/dL (6.4-8.2)
== END 2020-01-24 07:24 ==
PROVIDERS: PCP Family Medicine; Visit Provider Student in an Organized Health Care Education/Training Program
DX: D45 Polycythemia vera (principal)
CPT/HCPCS: 36415; 80053; 85025

== ENCOUNTER 2020-01-31 02:27 | Outpatient (CLI) | payer MEDICARE, BC, SELFPAY ==
[2020-01-31 07:20] LABS: Abs Immature Grans 0.01 10^3/uL (0.0-0.06); Absolute Basophil Count 0.01 10^3/uL (0.0-0.2); Absolute Eosinophil Count 0.04 10^3/uL (0.0-0.7); Absolute Lymphocyte Count 0.67 10^3/uL (1.2-3.4); Absolute Monocyte Count 0.32 10^3/uL (0.1-0.8); Basophils % 0.8; Eosinophils % 3.2; HCT 37.7 % (40.0-50.0); HGB 12.4 g/dL (13.5-17.5); Immature Grans % 0.8; MCH 31.1 pg (27.0-33.0); MCHC 32.9 % (32.0-36.0); MCV 94.5 fL (80-95); Monocytes % 25.8; Neutrophils % 15.4; Nucleated RBC 0 %; Platelet Count 123 10^3/uL (130-400); RBC 3.99 10^6/uL (4.36-5.78); RDW 26.2 % (11.8-14.1); RDW-SD 90.4 fL
[2020-01-31 08:28] LABS: ALT 23 U/L (16-63); AST 21 U/L (15-37); Albumin 3.5 g/dL (3.4-5.0); Alkaline Phosphatase 63 U/L (46-116); Anion Gap 10.1 mmol/L (3-11); BUN 20 mg/dL (7-18); Bilirubin, Total 0.3 mg/dL (0.2-1.0); CO2 23.9 mmol/L (21.0-32.0); CREATININE 1.07 mg/dL (0.70-1.30); Calcium 8.4 mg/dL (8.5-10.1); Chloride 107 mmol/L (98-107); Glucose 125 mg/dL (74-106); Sodium 141 mmol/L (136-145)
[2020-01-31 10:03] LABS: Absolute Neutrophil Count 0.19 10^3/uL (1.2-6.7); WBC 1.24 10^3/uL (4.4-10.8)
[2020-01-31 10:04] LABS: Anisocytosis 3+; Diff Comment Agrees w/ Instrument
[2020-01-31 10:05] LABS: Poikilocytes 1+
== END 2020-01-31 02:47 ==
PROVIDERS: PCP Family Medicine; Visit Provider Student in an Organized Health Care Education/Training Program
DX: D45 Polycythemia vera (principal)
CPT/HCPCS: 36415; 80053; 85025

== ENCOUNTER 2020-02-03 01:34 | Outpatient (CLI) | payer MEDICARE, BC, SELFPAY ==
[2020-02-03 07:16] LABS: Abs Immature Grans 0.02 10^3/uL (0.0-0.06); Absolute Eosinophil Count 0.04 10^3/uL (0.0-0.7); HCT 42.1 % (40.0-50.0); MCH 31.4 pg (27.0-33.0); MCHC 33.3 % (32.0-36.0); MCV 94.4 fL (80-95); MPV 9.3 fL (8.0-11.0); Nucleated RBC 0 %; Platelet Count 142 10^3/uL (130-400); RBC 4.46 10^6/uL (4.36-5.78); RDW 26.5 % (11.8-14.1); RDW-SD 91.3 fL
[2020-02-03 07:40] LABS: Anisocytosis 3+; Diff Comment Manual Differential
[2020-02-03 07:41] LABS: Absolute Basophil Count 0.04 10^3/uL (0.0-0.2); Absolute Lymphocyte Count 1.09 10^3/uL (1.2-3.4); Atypical Lymphocytes % 3; Poikilocytes 1+
[2020-02-03 08:13] LABS: Absolute Neutrophil Count 0.19 10^3/uL (1.2-6.7); WBC 1.76 10^3/uL (4.4-10.8)
[2020-02-03 08:49] LABS: ALT 25 U/L (16-63); AST 22 U/L (15-37); Albumin 4.2 g/dL (3.4-5.0); Alkaline Phosphatase 71 U/L (46-116); Anion Gap 9.2 mmol/L (3-11); BUN 17 mg/dL (7-18); Bilirubin, Total 0.6 mg/dL (0.2-1.0); CO2 27.8 mmol/L (21.0-32.0); CREATININE 1.22 mg/dL (0.70-1.30); Chloride 102 mmol/L (98-107); Estimated GFR 57.75 (mL/min/1.73m2); Glucose 115 mg/dL (74-106); Potassium 4.3 mmol/L (3.5-5.1); Sodium 139 mmol/L (136-145); Total Protein 7.2 g/dL (6.4-8.2)
== END 2020-02-03 01:54 ==
PROVIDERS: PCP Family Medicine; Visit Provider Student in an Organized Health Care Education/Training Program
DX: D45 Polycythemia vera (principal)
CPT/HCPCS: 36415; 80053; 85025

== ENCOUNTER 2020-02-07 02:47 | Outpatient (CLI) | payer MEDICARE, BC, SELFPAY ==
[2020-02-07 09:13] LABS: Abs Immature Grans 0.04 10^3/uL (0.0-0.06); Absolute Eosinophil Count 0.07 10^3/uL (0.0-0.7); HCT 42.6 % (40.0-50.0); HGB 14.3 g/dL (13.5-17.5); MCH 31.4 pg (27.0-33.0); MCHC 33.6 % (32.0-36.0); MCV 93.4 fL (80-95); MPV 9.6 fL (8.0-11.0); Nucleated RBC 0 %; Platelet Count 173 10^3/uL (130-400); RBC 4.56 10^6/uL (4.36-5.78); RDW 26.4 % (11.8-14.1); RDW-SD 88.4 fL
[2020-02-07 09:25] LABS: ALT 25 U/L (16-63); AST 20 U/L (15-37); Albumin 4.1 g/dL (3.4-5.0); Alkaline Phosphatase 66 U/L (46-116); Anion Gap 7.8 mmol/L (3-11); BUN 19 mg/dL (7-18); Bilirubin, Total 0.5 mg/dL (0.2-1.0); CO2 27.2 mmol/L (21.0-32.0); CREATININE 1.15 mg/dL (0.70-1.30); Chloride 103 mmol/L (98-107); Glucose 123 mg/dL (74-106); Potassium 4.2 mmol/L (3.5-5.1); Sodium 138 mmol/L (136-145); Total Protein 7.4 g/dL (6.4-8.2)
[2020-02-07 09:49] LABS: Absolute Basophil Count 0.07 10^3/uL (0.0-0.2); Absolute Lymphocyte Count 1.37 10^3/uL (1.2-3.4); Absolute Monocyte Count 0.58 10^3/uL (0.1-0.8); Absolute Neutrophil Count 1.51 10^3/uL (1.2-6.7); Anisocytosis 2+; Bands % 1; Diff Comment Manual Differential; Microcytosis 1+
[2020-02-07 09:50] LABS: Poikilocytes 1+
== END 2020-02-07 03:07 ==
PROVIDERS: PCP Family Medicine; Visit Provider Student in an Organized Health Care Education/Training Program
DX: D45 Polycythemia vera (principal)
CPT/HCPCS: 36415; 80053; 85025

== ENCOUNTER 2020-02-14 04:45 | Outpatient (CLI) | payer MEDICARE, BC, SELFPAY ==
[2020-02-14 07:39] LABS: Abs Immature Grans 0.02 10^3/uL (0.0-0.06); Absolute Basophil Count 0.04 10^3/uL (0.0-0.2); Absolute Eosinophil Count 0.11 10^3/uL (0.0-0.7); Absolute Lymphocyte Count 1.75 10^3/uL (1.2-3.4); Absolute Neutrophil Count 3.78 10^3/uL (1.2-6.7); Basophils % 0.7; Eosinophils % 1.8; HCT 43.5 % (40.0-50.0); HGB 14.3 g/dL (13.5-17.5); Immature Grans % 0.3; Lymphocytes % 28.7; MCH 31.3 pg (27.0-33.0); MCHC 32.9 % (32.0-36.0); MCV 95.2 fL (80-95); MPV 11.4 fL (8.0-11.0); Monocytes % 6.6; Neutrophils % 61.9; Nucleated RBC 0 %; Platelet Count 236 10^3/uL (130-400); RBC 4.57 10^6/uL (4.36-5.78); RDW 25.2 % (11.8-14.1); RDW-SD 86.4 fL
[2020-02-14 08:50] LABS: ALT 26 U/L (16-63); AST 22 U/L (15-37); Albumin 4.1 g/dL (3.4-5.0); Alkaline Phosphatase 69 U/L (46-116); Anion Gap 6.5 mmol/L (3-11); BUN 24 mg/dL (7-18); Bilirubin, Total 0.5 mg/dL (0.2-1.0); CO2 28.5 mmol/L (21.0-32.0); CREATININE 1.14 mg/dL (0.70-1.30); Calcium 9.1 mg/dL (8.5-10.1); Chloride 106 mmol/L (98-107); Glucose 128 mg/dL (74-106); Potassium 4.9 mmol/L (3.5-5.1); Sodium 141 mmol/L (136-145); Total Protein 6.9 g/dL (6.4-8.2)
[2020-02-16 11:01] LABS: BCR/ABL1, p210 Result see interpretation
== END 2020-02-14 05:05 ==
PROVIDERS: PCP Family Medicine; Visit Provider Student in an Organized Health Care Education/Training Program
DX: D45 Polycythemia vera (principal)
CPT/HCPCS: 36415; 80053; 81206; 85025

== ENCOUNTER 2020-02-22 04:49 | Outpatient (CLI) | payer MEDICARE, BC, SELFPAY ==
[2020-02-22 08:20] LABS: Abs Immature Grans 0.03 10^3/uL (0.0-0.06); Absolute Basophil Count 0.01 10^3/uL (0.0-0.2); Absolute Eosinophil Count 0.09 10^3/uL (0.0-0.7); Absolute Lymphocyte Count 1.32 10^3/uL (1.2-3.4); Absolute Monocyte Count 0.36 10^3/uL (0.1-0.8); Absolute Neutrophil Count 3.74 10^3/uL (1.2-6.7); Basophils % 0.2; Eosinophils % 1.6; HCT 42.4 % (40.0-50.0); HGB 13.9 g/dL (13.5-17.5); Immature Grans % 0.5; Lymphocytes % 23.8; MCH 32.4 pg (27.0-33.0); MCHC 32.8 % (32.0-36.0); MCV 98.8 fL (80-95); MPV 10.9 fL (8.0-11.0); Monocytes % 6.5; Neutrophils % 67.4; Nucleated RBC 0 %; Platelet Count 254 10^3/uL (130-400); RBC 4.29 10^6/uL (4.36-5.78); RDW 23.8 % (11.8-14.1); RDW-SD 85.8 fL; WBC 5.55 10^3/uL (4.4-10.8)
[2020-02-22 08:31] LABS: ALT 24 U/L (16-63); AST 18 U/L (15-37); Albumin 3.9 g/dL (3.4-5.0); Alkaline Phosphatase 63 U/L (46-116); Anion Gap 5.2 mmol/L (3-11); BUN 18 mg/dL (7-18); Bilirubin, Total 0.5 mg/dL (0.2-1.0); CO2 28.8 mmol/L (21.0-32.0); CREATININE 1.13 mg/dL (0.70-1.30); Calcium 8.8 mg/dL (8.5-10.1); Chloride 104 mmol/L (98-107); Glucose 125 mg/dL (74-106); Potassium 4.2 mmol/L (3.5-5.1); Sodium 138 mmol/L (136-145)
== END 2020-02-22 05:09 ==
PROVIDERS: PCP Family Medicine; Visit Provider Student in an Organized Health Care Education/Training Program
DX: D45 Polycythemia vera (principal)
CPT/HCPCS: 36415; 80053; 85025

== ENCOUNTER 2020-03-06 01:33 | Outpatient (CLI) | payer MEDICARE, BC, SELFPAY ==
[2020-03-06 07:30] LABS: Abs Immature Grans 0.01 10^3/uL (0.0-0.06); Absolute Basophil Count 0.02 10^3/uL (0.0-0.2); Absolute Eosinophil Count 0.11 10^3/uL (0.0-0.7); Absolute Lymphocyte Count 1.13 10^3/uL (1.2-3.4); Absolute Monocyte Count 0.25 10^3/uL (0.1-0.8); Absolute Neutrophil Count 2.98 10^3/uL (1.2-6.7); Basophils % 0.4; Eosinophils % 2.4; HCT 42.8 % (40.0-50.0); HGB 14.3 g/dL (13.5-17.5); Immature Grans % 0.2; Lymphocytes % 25.1; MCH 32.9 pg (27.0-33.0); MCHC 33.4 % (32.0-36.0); MCV 98.6 fL (80-95); MPV 10.4 fL (8.0-11.0); Monocytes % 5.6; Neutrophils % 66.3; Nucleated RBC 0 %; Platelet Count 223 10^3/uL (130-400); RBC 4.34 10^6/uL (4.36-5.78); RDW 21.2 % (11.8-14.1); RDW-SD 76.9 fL
[2020-03-06 08:49] LABS: ALT 18 U/L (16-63); AST 21 U/L (15-37); Alkaline Phosphatase 61 U/L (46-116); Anion Gap 4.7 mmol/L (3-11); BUN 18 mg/dL (7-18); Bilirubin, Total 0.9 mg/dL (0.2-1.0); CO2 29.3 mmol/L (21.0-32.0); CREATININE 1.08 mg/dL (0.70-1.30); Calcium 8.8 mg/dL (8.5-10.1); Chloride 105 mmol/L (98-107); Glucose 118 mg/dL (74-106); Potassium 4.5 mmol/L (3.5-5.1); Sodium 139 mmol/L (136-145); Total Protein 6.7 g/dL (6.4-8.2)
== END 2020-03-06 01:53 ==
PROVIDERS: PCP Family Medicine; Visit Provider Student in an Organized Health Care Education/Training Program
DX: D45 Polycythemia vera (principal)
CPT/HCPCS: 36415; 80053; 85025

== ENCOUNTER 2020-04-04 01:25 | Outpatient (CLI) | payer MEDICARE, BC, SELFPAY ==
[2020-04-04 08:50] LABS: Abs Immature Grans 0.03 10^3/uL (0.0-0.06); Absolute Basophil Count 0.03 10^3/uL (0.0-0.2); Absolute Eosinophil Count 0.12 10^3/uL (0.0-0.7); Absolute Lymphocyte Count 1.37 10^3/uL (1.2-3.4); Absolute Monocyte Count 0.46 10^3/uL (0.1-0.8); Absolute Neutrophil Count 4.57 10^3/uL (1.2-6.7); Basophils % 0.5; Eosinophils % 1.8; HGB 14.8 g/dL (13.5-17.5); Immature Grans % 0.5; Lymphocytes % 20.8; MCH 33.2 pg (27.0-33.0); MCHC 32.9 % (32.0-36.0); MCV 100.9 fL (80-95); MPV 10.8 fL (8.0-11.0); Neutrophils % 69.4; Nucleated RBC 0 %; Platelet Count 279 10^3/uL (130-400); RBC 4.46 10^6/uL (4.36-5.78); WBC 6.58 10^3/uL (4.4-10.8)
[2020-04-04 10:05] LABS: ALT 20 U/L (16-63); AST 18 U/L (15-37); Alkaline Phosphatase 69 U/L (46-116); Anion Gap 8.3 mmol/L (3-11); BUN 19 mg/dL (7-18); Bilirubin, Total 0.5 mg/dL (0.2-1.0); CO2 25.7 mmol/L (21.0-32.0); CREATININE 1.24 mg/dL (0.70-1.30); Calcium 9.1 mg/dL (8.5-10.1); Chloride 105 mmol/L (98-107); Estimated GFR 56.68 (mL/min/1.73m2); Glucose 120 mg/dL (74-106); Potassium 4.4 mmol/L (3.5-5.1); Sodium 139 mmol/L (136-145); Total Protein 6.7 g/dL (6.4-8.2)
== END 2020-04-04 01:45 ==
PROVIDERS: PCP Family Medicine; Visit Provider Student in an Organized Health Care Education/Training Program
DX: D45 Polycythemia vera (principal)
CPT/HCPCS: 36415; 80053; 85025

== ENCOUNTER 2020-04-19 03:05 | Outpatient (CLI) | payer MEDICARE, BC, SELFPAY ==
[2020-04-19 07:28] LABS: Abs Immature Grans 0.06 10^3/uL (0.0-0.06); Absolute Basophil Count 0.06 10^3/uL (0.0-0.2); Absolute Eosinophil Count 0.15 10^3/uL (0.0-0.7); Absolute Lymphocyte Count 1.42 10^3/uL (1.2-3.4); Absolute Monocyte Count 0.51 10^3/uL (0.1-0.8); Absolute Neutrophil Count 5.23 10^3/uL (1.2-6.7); Basophils % 0.8; HCT 44.1 % (40.0-50.0); HGB 14.4 g/dL (13.5-17.5); Immature Grans % 0.8; Lymphocytes % 19.1; MCH 32.4 pg (27.0-33.0); MCHC 32.7 % (32.0-36.0); MCV 99.1 fL (80-95); MPV 11.1 fL (8.0-11.0); Monocytes % 6.9; Neutrophils % 70.4; Nucleated RBC 0 %; Platelet Count 282 10^3/uL (130-400); RBC 4.45 10^6/uL (4.36-5.78); RDW 15.2 % (11.8-14.1); RDW-SD 55.4 fL; WBC 7.43 10^3/uL (4.4-10.8)
[2020-04-19 10:37] LABS: ALT 23 U/L (16-63); AST 17 U/L (15-37); Albumin 4.2 g/dL (3.4-5.0); Alkaline Phosphatase 75 U/L (46-116); Anion Gap 9.4 mmol/L (3-11); BUN 21 mg/dL (7-18); Bilirubin, Total 0.5 mg/dL (0.2-1.0); CO2 27.6 mmol/L (21.0-32.0); CREATININE 1.31 mg/dL (0.70-1.30); Calcium 8.9 mg/dL (8.5-10.1); Chloride 104 mmol/L (98-107); Glucose 138 mg/dL (74-106); Potassium 4.5 mmol/L (3.5-5.1); Sodium 141 mmol/L (136-145); Total Protein 6.9 g/dL (6.4-8.2)
== END 2020-04-19 03:25 ==
PROVIDERS: PCP Family Medicine; Visit Provider Student in an Organized Health Care Education/Training Program
DX: D45 Polycythemia vera (principal)
CPT/HCPCS: 36415; 80053; 85025

== ENCOUNTER 2020-05-01 02:07 | Outpatient (CLI) | payer MEDICARE, BC, SELFPAY ==
[2020-05-01 07:25] LABS: Abs Immature Grans 0.02 10^3/uL (0.0-0.06); Absolute Basophil Count 0.03 10^3/uL (0.0-0.2); Absolute Eosinophil Count 0.15 10^3/uL (0.0-0.7); Absolute Lymphocyte Count 1.07 10^3/uL (1.2-3.4); Absolute Monocyte Count 0.29 10^3/uL (0.1-0.8); Absolute Neutrophil Count 4.37 10^3/uL (1.2-6.7); Basophils % 0.5; Eosinophils % 2.5; HCT 44.7 % (40.0-50.0); HGB 14.6 g/dL (13.5-17.5); Immature Grans % 0.3; MCH 32.3 pg (27.0-33.0); MCHC 32.7 % (32.0-36.0); MCV 98.9 fL (80-95); MPV 10.9 fL (8.0-11.0); Monocytes % 4.9; Neutrophils % 73.8; Nucleated RBC 0 %; Platelet Count 257 10^3/uL (130-400); RBC 4.52 10^6/uL (4.36-5.78); RDW 14.8 % (11.8-14.1); RDW-SD 53.3 fL; WBC 5.93 10^3/uL (4.4-10.8)
[2020-05-01 07:40] LABS: ALT 26 U/L (16-63); AST 28 U/L (15-37); Albumin 4.1 g/dL (3.4-5.0); Alkaline Phosphatase 68 U/L (46-116); Anion Gap 7.8 mmol/L (3-11); BUN 18 mg/dL (7-18); Bilirubin, Total 0.6 mg/dL (0.2-1.0); CO2 26.2 mmol/L (21.0-32.0); CREATININE 1.19 mg/dL (0.70-1.30); Calcium 8.6 mg/dL (8.5-10.1); Chloride 105 mmol/L (98-107); Estimated GFR 59.44 (mL/min/1.73m2); Glucose 126 mg/dL (74-106); Potassium 4.3 mmol/L (3.5-5.1); Sodium 139 mmol/L (136-145); Total Protein 7.2 g/dL (6.4-8.2)
== END 2020-05-01 02:27 ==
PROVIDERS: PCP Family Medicine; Referring Provider Nurse Practitioner Family; Visit Provider Student in an Organized Health Care Education/Training Program
DX: Z87.39 Personal history of other diseases of the musculoskeletal system and connective tissue (principal); Z79.899 Other long term (current) drug therapy; D45 Polycythemia vera; M77.8 Other enthesopathies, not elsewhere classified
CPT/HCPCS: 36415; 80053; 85025

== ENCOUNTER 2020-06-07 01:57 | Outpatient (CLI) | payer MEDICARE, BC, SELFPAY ==
[2020-06-07 07:32] LABS: Abs Immature Grans 0.03 10^3/uL (0.0-0.06); Absolute Basophil Count 0.05 10^3/uL (0.0-0.2); Absolute Eosinophil Count 0.17 10^3/uL (0.0-0.7); Absolute Lymphocyte Count 1.16 10^3/uL (1.2-3.4); Absolute Monocyte Count 0.48 10^3/uL (0.1-0.8); Absolute Neutrophil Count 4.78 10^3/uL (1.2-6.7); Basophils % 0.7; Eosinophils % 2.5; HCT 44.9 % (40.0-50.0); HGB 14.3 g/dL (13.5-17.5); Immature Grans % 0.4; Lymphocytes % 17.4; MCH 29.9 pg (27.0-33.0); MCHC 31.8 % (32.0-36.0); MCV 93.9 fL (80-95); MPV 11.2 fL (8.0-11.0); Monocytes % 7.2; Neutrophils % 71.8; Nucleated RBC 0 %; Platelet Count 210 10^3/uL (130-400); RBC 4.78 10^6/uL (4.36-5.78); RDW 15.8 % (11.8-14.1); RDW-SD 53.3 fL; WBC 6.67 10^3/uL (4.4-10.8)
[2020-06-07 07:53] LABS: Hemoglobin A1C 6.1 % (<5.7)
[2020-06-07 08:25] LABS: COMMENT (LAB VIEW ONLY) 120.32 mg/dL; Microalb ug/mg Crea 4.1 ug/mg Cr
[2020-06-07 08:26] LABS: ALT 21 U/L (16-63); AST 17 U/L (15-37); Alkaline Phosphatase 71 U/L (46-116); Anion Gap 5.5 mmol/L (3-11); BUN 22 mg/dL (7-18); Bilirubin, Total 0.4 mg/dL (0.2-1.0); CO2 29.5 mmol/L (21.0-32.0); CREATININE 1.27 mg/dL (0.70-1.30); Calcium 8.7 mg/dL (8.5-10.1); Chloride 104 mmol/L (98-107); Estimated GFR 55.14 (mL/min/1.73m2); Glucose 119 mg/dL (74-106); Potassium 4.6 mmol/L (3.5-5.1); Sodium 139 mmol/L (136-145); Total Protein 6.9 g/dL (6.4-8.2)
[2020-06-07 08:51] LABS: Magnesium 2.3 mg/dL (1.8-2.4); Vitamin B12 593 pg/mL (193-986)
[2020-06-11 10:20] LABS: Bilirubin, Direct 0.08 mg/dL (0.00-0.20)
== END 2020-06-07 02:17 ==
PROVIDERS: PCP Nurse Practitioner Family; Visit Provider Nurse Practitioner Family
DX: D45 Polycythemia vera (principal); I10 Essential (primary) hypertension; R42 Dizziness and giddiness; R55 Syncope and collapse; M77.9 Enthesopathy, unspecified; K21.9 Gastro-esophageal reflux disease without esophagitis; G47.33 Obstructive sleep apnea (adult) (pediatric); M06.4 Inflammatory polyarthropathy; Z79.899 Other long term (current) drug therapy; Z87.39 Personal history of other diseases of the musculoskeletal system and connective tissue; G25.81 Restless legs syndrome
CPT/HCPCS: 36415; 80053; 80076; 82043; 82570; 82607; 83036; 83735; 85025

== ENCOUNTER 2020-06-15 03:41 | Outpatient (CLI) | payer MEDICARE, BC, SELFPAY ==
[2020-06-15 14:19] LABS: Abs Immature Grans 0.05 10^3/uL (0.0-0.06); Absolute Basophil Count 0.03 10^3/uL (0.0-0.2); Absolute Eosinophil Count 0.16 10^3/uL (0.0-0.7); Absolute Monocyte Count 0.51 10^3/uL (0.1-0.8); Absolute Neutrophil Count 4.84 10^3/uL (1.2-6.7); Basophils % 0.4; Eosinophils % 2.3; HCT 45.6 % (40.0-50.0); HGB 14.1 g/dL (13.5-17.5); Immature Grans % 0.7; Lymphocytes % 21.2; MCH 29.1 pg (27.0-33.0); MCHC 30.9 % (32.0-36.0); MPV 11.5 fL (8.0-11.0); Monocytes % 7.2; Neutrophils % 68.2; Nucleated RBC 0 %; Platelet Count 247 10^3/uL (130-400); RBC 4.85 10^6/uL (4.36-5.78); RDW 16.1 % (11.8-14.1); WBC 7.09 10^3/uL (4.4-10.8)
[2020-06-15 14:48] LABS: ALT 27 U/L (16-63); AST 16 U/L (15-37); Alkaline Phosphatase 72 U/L (46-116); Anion Gap 5.9 mmol/L (3-11); BUN 19 mg/dL (7-18); Bilirubin, Total 0.5 mg/dL (0.2-1.0); CO2 28.1 mmol/L (21.0-32.0); CREATININE 1.25 mg/dL (0.70-1.30); Calcium 8.8 mg/dL (8.5-10.1); Chloride 104 mmol/L (98-107); Estimated GFR 56.16 (mL/min/1.73m2); Glucose 119 mg/dL (74-106); Potassium 4.6 mmol/L (3.5-5.1); Sodium 138 mmol/L (136-145); Total Protein 6.7 g/dL (6.4-8.2)
== END 2020-06-15 04:01 ==
PROVIDERS: Nurse Practitioner Family; PCP Nurse Practitioner Family; Visit Provider Student in an Organized Health Care Education/Training Program
DX: D45 Polycythemia vera (principal); M77.8 Other enthesopathies, not elsewhere classified; Z87.39 Personal history of other diseases of the musculoskeletal system and connective tissue; Z79.899 Other long term (current) drug therapy
CPT/HCPCS: 36415; 80053; 85025

== ENCOUNTER → 2020-06-20 08:22 | Outpatient (BNVA) | payer MEDICARE, BC, SELFPAY | PROVIDERS: PCP Nurse Practitioner Family; Referring Provider Family Medicine; Visit Provider Urology | DX: R31.29 Other microscopic hematuria (principal) | CPT/HCPCS: 99212; 99213 ==

== ENCOUNTER 2020-06-22 02:41 | Outpatient (CLI) | payer MEDICARE, BC, SELFPAY ==
[2020-06-22 07:22] LABS: Abs Immature Grans 0.05 10^3/uL (0.0-0.06); Absolute Basophil Count 0.04 10^3/uL (0.0-0.2); Absolute Eosinophil Count 0.13 10^3/uL (0.0-0.7); Absolute Lymphocyte Count 1.18 10^3/uL (1.2-3.4); Absolute Monocyte Count 0.42 10^3/uL (0.1-0.8); Absolute Neutrophil Count 4.92 10^3/uL (1.2-6.7); Basophils % 0.6; Eosinophils % 1.9; HCT 46.5 % (40.0-50.0); HGB 14.4 g/dL (13.5-17.5); Immature Grans % 0.7; Lymphocytes % 17.5; MCH 29.2 pg (27.0-33.0); MCV 94.3 fL (80-95); MPV 11.9 fL (8.0-11.0); Monocytes % 6.2; Neutrophils % 73.1; Nucleated RBC 0 %; Platelet Count 215 10^3/uL (130-400); RBC 4.93 10^6/uL (4.36-5.78); RDW 16.8 % (11.8-14.1); RDW-SD 56.2 fL; WBC 6.74 10^3/uL (4.4-10.8)
== END 2020-06-22 03:01 ==
PROVIDERS: PCP Nurse Practitioner Family; Visit Provider Student in an Organized Health Care Education/Training Program
DX: D45 Polycythemia vera (principal)
CPT/HCPCS: 36415; 85025

== ENCOUNTER 2020-06-29 03:26 | Outpatient (CLI) | payer MEDICARE, BC, SELFPAY ==
[2020-06-29 11:09] LABS: Abs Immature Grans 0.06 10^3/uL (0.0-0.06); Absolute Basophil Count 0.05 10^3/uL (0.0-0.2); Absolute Eosinophil Count 0.19 10^3/uL (0.0-0.7); Absolute Lymphocyte Count 1.28 10^3/uL (1.2-3.4); Absolute Monocyte Count 0.78 10^3/uL (0.1-0.8); Absolute Neutrophil Count 5.76 10^3/uL (1.2-6.7); Basophils % 0.6; Eosinophils % 2.3; HCT 46.1 % (40.0-50.0); HGB 14.5 g/dL (13.5-17.5); Immature Grans % 0.7; Lymphocytes % 15.8; MCH 29.1 pg (27.0-33.0); MCHC 31.5 % (32.0-36.0); MCV 92.4 fL (80-95); MPV 11.5 fL (8.0-11.0); Monocytes % 9.6; Nucleated RBC 0 %; Platelet Count 237 10^3/uL (130-400); RBC 4.99 10^6/uL (4.36-5.78); RDW 17.6 % (11.8-14.1); RDW-SD 56.6 fL; WBC 8.12 10^3/uL (4.4-10.8)
[2020-06-29 12:19] LABS: ALT 24 U/L (16-63); AST 15 U/L (15-37); Alkaline Phosphatase 78 U/L (46-116); Anion Gap 8.6 mmol/L (3-11); BUN 19 mg/dL (7-18); Bilirubin, Total 0.5 mg/dL (0.2-1.0); CO2 26.4 mmol/L (21.0-32.0); Calcium 8.8 mg/dL (8.5-10.1); Chloride 103 mmol/L (98-107); Estimated GFR 58.86 (mL/min/1.73m2); Glucose 102 mg/dL (74-106); Potassium 4.5 mmol/L (3.5-5.1); Sodium 138 mmol/L (136-145); Total Protein 6.9 g/dL (6.4-8.2)
== END 2020-06-29 03:46 ==
PROVIDERS: PCP Nurse Practitioner Family; Visit Provider Nurse Practitioner Family
DX: D45 Polycythemia vera (principal); M77.9 Enthesopathy, unspecified; Z87.39 Personal history of other diseases of the musculoskeletal system and connective tissue; Z79.899 Other long term (current) drug therapy
CPT/HCPCS: 36415; 80053; 85025

== ENCOUNTER 2020-07-06 04:55 | Outpatient (CLI) | payer MEDICARE, BC, SELFPAY ==
[2020-07-06 07:50] LABS: Abs Immature Grans 0.07 10^3/uL (0.0-0.06); Absolute Basophil Count 0.06 10^3/uL (0.0-0.2); Absolute Eosinophil Count 0.19 10^3/uL (0.0-0.7); Absolute Lymphocyte Count 1.25 10^3/uL (1.2-3.4); Absolute Monocyte Count 0.59 10^3/uL (0.1-0.8); Absolute Neutrophil Count 4.98 10^3/uL (1.2-6.7); Basophils % 0.8; Eosinophils % 2.7; HCT 46.8 % (40.0-50.0); HGB 14.4 g/dL (13.5-17.5); Lymphocytes % 17.5; MCH 29.1 pg (27.0-33.0); MCHC 30.8 % (32.0-36.0); MCV 94.5 fL (80-95); MPV 11.5 fL (8.0-11.0); Monocytes % 8.3; Neutrophils % 69.7; Nucleated RBC 0 %; Platelet Count 277 10^3/uL (130-400); RBC 4.95 10^6/uL (4.36-5.78); RDW 18.4 % (11.8-14.1); RDW-SD 61.8 fL; WBC 7.14 10^3/uL (4.4-10.8)
[2020-07-06 09:10] LABS: ALT 25 U/L (16-63); AST 16 U/L (15-37); Alkaline Phosphatase 72 U/L (46-116); Anion Gap 8.2 mmol/L (3-11); BUN 22 mg/dL (7-18); Bilirubin, Total 0.4 mg/dL (0.2-1.0); CO2 26.8 mmol/L (21.0-32.0); CREATININE 1.29 mg/dL (0.70-1.30); Calcium 8.8 mg/dL (8.5-10.1); Chloride 105 mmol/L (98-107); Estimated GFR 54.15 (mL/min/1.73m2); Glucose 142 mg/dL (74-106); Potassium 4.6 mmol/L (3.5-5.1); Sodium 140 mmol/L (136-145); Total Protein 6.9 g/dL (6.4-8.2)
== END 2020-07-06 05:15 ==
PROVIDERS: PCP Nurse Practitioner Family; Visit Provider Nurse Practitioner Family
DX: D45 Polycythemia vera (principal); M77.8 Other enthesopathies, not elsewhere classified; Z87.39 Personal history of other diseases of the musculoskeletal system and connective tissue; Z79.899 Other long term (current) drug therapy
CPT/HCPCS: 36415; 80053; 85025

== ENCOUNTER 2020-07-24 03:23 | Outpatient (CLI) | payer MEDICARE, BC, SELFPAY ==
[2020-07-24 07:32] LABS: Abs Immature Grans 0.05 10^3/uL (0.0-0.06); Absolute Basophil Count 0.05 10^3/uL (0.0-0.2); Absolute Eosinophil Count 0.25 10^3/uL (0.0-0.7); Absolute Lymphocyte Count 0.95 10^3/uL (1.2-3.4); Absolute Monocyte Count 0.49 10^3/uL (0.1-0.8); Absolute Neutrophil Count 5.22 10^3/uL (1.2-6.7); Basophils % 0.7; Eosinophils % 3.6; HCT 46.3 % (40.0-50.0); HGB 14.5 g/dL (13.5-17.5); Immature Grans % 0.7; Lymphocytes % 13.6; MCH 29.2 pg (27.0-33.0); MCHC 31.3 % (32.0-36.0); MCV 93.3 fL (80-95); MPV 11.3 fL (8.0-11.0); Neutrophils % 74.4; Nucleated RBC 0 %; Platelet Count 245 10^3/uL (130-400); RBC 4.96 10^6/uL (4.36-5.78); RDW 19.1 % (11.8-14.1); RDW-SD 65.4 fL; WBC 7.01 10^3/uL (4.4-10.8)
[2020-07-24 07:43] LABS: ALT 24 U/L (16-63); AST 23 U/L (15-37); Albumin 3.9 g/dL (3.4-5.0); Alkaline Phosphatase 83 U/L (46-116); Anion Gap 7.9 mmol/L (3-11); BUN 25 mg/dL (7-18); Bilirubin, Total 0.6 mg/dL (0.2-1.0); CO2 27.1 mmol/L (21.0-32.0); CREATININE 1.5 mg/dL (0.70-1.30); Calcium 8.9 mg/dL (8.5-10.1); Chloride 105 mmol/L (98-107); Glucose 137 mg/dL (74-106); Potassium 4.4 mmol/L (3.5-5.1); Sodium 140 mmol/L (136-145); Total Protein 7.3 g/dL (6.4-8.2)
== END 2020-07-24 03:24 | disposition home or self-care (01) ==
LOC: LBO 03:23
PROVIDERS: PCP Nurse Practitioner Family; Visit Provider Student in an Organized Health Care Education/Training Program
DX: D45 Polycythemia vera (principal)
CPT/HCPCS: 36415; 80053; 85025

== ENCOUNTER 2020-09-05 03:49 | Outpatient (CLI) | payer MEDICARE, BC, SELFPAY ==
[2020-09-05 09:07] LABS: Abs Immature Grans 0.03 10^3/uL (0.0-0.06); Absolute Basophil Count 0.04 10^3/uL (0.0-0.2); Absolute Eosinophil Count 0.19 10^3/uL (0.0-0.7); Absolute Lymphocyte Count 1.11 10^3/uL (1.2-3.4); Absolute Monocyte Count 0.39 10^3/uL (0.1-0.8); Absolute Neutrophil Count 4.22 10^3/uL (1.2-6.7); Basophils % 0.7; Eosinophils % 3.2; HCT 46.6 % (40.0-50.0); HGB 14.6 g/dL (13.5-17.5); Immature Grans % 0.5; Lymphocytes % 18.6; MCH 30.4 pg (27.0-33.0); MCHC 31.3 % (32.0-36.0); MCV 96.9 fL (80-95); MPV 11.4 fL (8.0-11.0); Monocytes % 6.5; Neutrophils % 70.5; Nucleated RBC 0 %; Platelet Count 252 10^3/uL (130-400); RBC 4.81 10^6/uL (4.36-5.78); RDW 18.2 % (11.8-14.1); RDW-SD 66.2 fL; WBC 5.98 10^3/uL (4.4-10.8)
[2020-09-05 09:08] LABS: ALT 30 U/L (16-63); AST 22 U/L (15-37); Albumin 4.1 g/dL (3.4-5.0); Alkaline Phosphatase 83 U/L (46-116); BUN 22 mg/dL (7-18); Bilirubin, Total 0.6 mg/dL (0.2-1.0); CREATININE 1.1 mg/dL (0.70-1.30); Calcium 9.2 mg/dL (8.5-10.1); Chloride 102 mmol/L (98-107); Glucose 119 mg/dL (74-106); Potassium 4.7 mmol/L (3.5-5.1); Sodium 140 mmol/L (136-145); Total Protein 7.1 g/dL (6.4-8.2)
== END 2020-09-05 03:50 | disposition home or self-care (01) ==
LOC: LBO 03:50
PROVIDERS: PCP Nurse Practitioner Family; Visit Provider Student in an Organized Health Care Education/Training Program
DX: D45 Polycythemia vera (principal)
CPT/HCPCS: 36415; 80053; 85025

== ENCOUNTER 2020-09-25 14:50 | Outpatient (CLI) | payer MEDICARE, BC, SELFPAY ==
[2020-09-25 15:48] LABS: ALT 30 U/L (16-63); AST 26 U/L (15-37); Albumin 4.2 g/dL (3.4-5.0); Alkaline Phosphatase 73 U/L (46-116); Anion Gap 11.1 mmol/L (3-11); BUN 21 mg/dL (7-18); Bilirubin, Total 0.5 mg/dL (0.2-1.0); CO2 24.9 mmol/L (21.0-32.0); CREATININE 1.2 mg/dL (0.70-1.30); Calcium 9.4 mg/dL (8.5-10.1); Chloride 105 mmol/L (98-107); Estimated GFR 58.71 (mL/min/1.73m2); Glucose 115 mg/dL (74-106); Potassium 4.1 mmol/L (3.5-5.1); Sodium 141 mmol/L (136-145); Total Protein 7.3 g/dL (6.4-8.2)
[2020-09-25 15:49] LABS: Troponin I < 0.05 ng/mL (<0.06)
[2020-09-25 15:55] LABS: HCT 42.5 % (40.0-50.0); HGB 13.5 g/dL (13.5-17.5); MCH 29.9 pg (27.0-33.0); MCHC 31.8 % (32.0-36.0); Platelet Count 296 10^3/uL (130-400); RBC 4.52 10^6/uL (4.36-5.78); RDW 17.3 % (11.8-14.1); RDW-SD 60.4 fL; WBC 7.26 10^3/uL (4.4-10.8)
== END 2020-09-25 14:51 | disposition home or self-care (01) ==
LOC: LBO 14:52
PROVIDERS: PCP Nurse Practitioner Family; Visit Provider Family Medicine
DX: R07.89 Other chest pain (principal); Z95.0 Presence of cardiac pacemaker
CPT/HCPCS: 36415; 80053; 85027; 71046; 84484

== ENCOUNTER 2020-09-25 18:44 | Outpatient (CLI) | payer MEDICARE, BC, SELFPAY ==
--- NOTE | 2020-09-25 | DI.RAD_ITS ---
EXAM: XR CHEST 2V PA LATERAL CLINICAL HISTORY: CHEST PAIN EXERTIONAL, R07.89. TECHNIQUE: 2D digital imaging was performed. COMPARISON: CR CHEST 2 VIEWS PA,LAT from 11/08/2013 FINDINGS: Heart size is normal. The mediastinum is not widened. Unipolar left subclavian pacemaker again noted with lead tip in RA, unchanged. No infiltrates nor pleural effusions. No pulmonary edema. No pneumothorax IMPRESSION: No acute pulmonary findings.No significant change compared to 11/08/2013. DATA REPOSITORY: RADIATION DOSE DELIVERED:
== END 2020-09-25 19:04 ==
PROVIDERS: PCP Nurse Practitioner Family; Visit Provider Nurse Practitioner Family
DX: R07.89 Other chest pain (principal); Z95.0 Presence of cardiac pacemaker
CPT/HCPCS: 71046

== ENCOUNTER 2020-10-05 01:12 | Outpatient (CLI) | payer MEDICARE, BC, SELFPAY ==
--- NOTE | 2020-10-05 08:45 | DI.NM_ITS ---
APPROVED REPORT Exam: Pharmacologic paired with low level exercise Patient Location: Out-Patient Room/Bed: Ordering Provider:CASSANDRA QUINN, Contact Number: [phone] BMI: 31.19 Baseline Rhythm: Atrial Paced Indications: EXERTIONAL CHEST PAIN Medical History Medical History: NATALIE, CKD III, Obesity, HLD, GERD, Impaired fasting glucose, Clark's esophagus, Pac emaker for SSS, HTN, CP, Dizziness, Near syncope, PENDLETON Cardiac Medications: Simvastin, Omeprazole, Metoprolol succinate, Aspirin, Allergies: Lisinopril Cardiac Risk Factors: FHX of CAD, HTN, Hyperlipidemia, Obesity, Smoking (former) Previous Cardiac Procedures: PCI w/o stenting (2011), Pacemaker (2011) Pretest Chest Pain Characteristics: Exertional Chest pain/Dyspnea when getting out of chair. None whi le at rest. Exercise History: Sedentary Physical Disabilities: None. Lung Sounds: Clear to auscultation Heart Sounds: Regular Stress Test Details Test: Exercise stress converted to pharmacologic stress paired with low level exercise due to failur e to obtain a diagnostic stress test. Reason for pharmacologic stress test: physical limitation. Nuclear Acquisition: Rest Tc-99m/Stress Tc-99m 1 day Rest Isotope: Tc-99m Sestamibi. Dose: 12.2 Date: 10/05/20 Injection Time: 0900 Stress Isotope: Tc-99m Sestamibi. Dose: 37.7 Date: 10/05/20 Injection Time: 1030 HR Resting HR Supine: 61 bpm Max Heart Rate (APMHR): 143.200865 bpm Resting HR Standin bpm Target HR (85% APMHR): 121.849627 bpm Max HR Achieved: 97 bpm % of APMHR: 67.83 Recovery HR: 63 bpm HR response to stress: Normal HR response to stress Comment: Beta mckinley not held for test. BP Resting BP Supine: 134/78 mmHg Resting BP Standin/76 mmHg Max BP: 144/78 mmHg Recovery BP: 130/76 mmHg BP response to stress: Normal blood pressure response to stress. ECG Resting ECG: Atrial Paced Rhythm Ectopy: None Stress ECG: Atrial Paced Rhythm ST Change: No significant ST segment changes noted Arrhythmia: frequent PVCs, bigeminy Recovery ECG: Atrial Paced Rhythm Recovery ST Change: No significant ST segment changes noted Recovery Arrhythmia: frequent PVCs, bigeminy, trigeminy Clinical Reason for Termination: Chest pain/Anginal equivalent Stress Symptoms: Chest pain, Dyspnea, Headache, Dizziness Exercise duration: 1 min55 sec Highest Stage Reached: Stage 1: 1.7 mph at 10% grade. Rate Pressure Product: [id number] Stress ECG Conclusion 1. The resting electrocardiogram showed atrial paced, ventricular sensed rhythm 2. Patient exercised briefly on the treadmill. He received pharmacologic stress with regadenoson. P eak heart rate was 67% of maximal predicted for age 3. Electrocardiographically the test was nondiagnostic due to inadequate heart rate 4. Frequent PVCs were seen Stress Test Summary STAGE Time (mins) Speed (mph) Grade (%) HR BP SYMPTOMS METS Supine 61 134/78 Standing 63 130/76 1 3 1.7 10 10/10 CHEST PAIN, DYSPNEA 4.6 1 min post Lexiscan injection 71 144/78 DYSPNEA 3 min post Lexiscan injection 67 122/74 MACKEY, DIZZINESS, 7/10 CHEST PAIN 6 min post Lexiscan injection 63 130/76 SYMPTOMS RESOLVED. Patient reported feeling exertional chest pain when he stook up from chair before coming into the str ess lab. Symptoms resolved quickly. During exercise patient went into bigeminy and reports 10/10 ches t pain and SOB. Treadmill stopped and patient reports dizziness. BP obtained while standing. Patient reports symptoms better and wished to proceed with lexiscan injection paired with low level exercis e. Treadmill restarted at 1.0 MPH and 0% grade. Lexiscan injected and side effects reported include d yspnea, headache, dizziness, and 7/10 chest pain. MACKEY, dyspnea, and dizziness continued for 8 minutes into recovery period. Resolved by minute 9. MPI Conclusion Normal myocardial perfusion without evidence of ischemia or prior infarction EF 59% Radiologist Interpretation Radiologist agrees with Style Advisor's Interpretation. Radiologist Interpretation by: Shawnee Raya MD Interpretation Date/Time: 10/06/2020 11:57:05
[2020-10-05] MEDS: Regadenoson 0.4 MG/5 ML SYR IVP (10:47)
== END 2020-10-05 01:32 ==
PROVIDERS: PCP Nurse Practitioner Family; Visit Provider Family Medicine
DX: I20.8 Other forms of angina pectoris (principal); R07.89 Other chest pain; I10 Essential (primary) hypertension; Z87.891 Personal history of nicotine dependence; I49.3 Ventricular premature depolarization; Z82.49 Family history of ischemic heart disease and other diseases of the circulatory system; E78.5 Hyperlipidemia, unspecified; E66.9 Obesity, unspecified; Z68.31 Body mass index [BMI] 31.0-31.9, adult
CPT/HCPCS: 78452; 93016; 93018; 93017; J2785

== ENCOUNTER 2020-10-19 03:30 | Outpatient (CLI) | payer MEDICARE, BC, SELFPAY ==
[2020-10-19 07:37] LABS: Abs Immature Grans 0.07 10^3/uL (0.0-0.06); Absolute Basophil Count 0.06 10^3/uL (0.0-0.2); Absolute Eosinophil Count 0.15 10^3/uL (0.0-0.7); Absolute Lymphocyte Count 1.23 10^3/uL (1.2-3.4); Absolute Monocyte Count 0.59 10^3/uL (0.1-0.8); Absolute Neutrophil Count 5.27 10^3/uL (1.2-6.7); Basophils % 0.8; HCT 44.7 % (40.0-50.0); Immature Grans % 0.9; Lymphocytes % 16.7; MCH 29.5 pg (27.0-33.0); MCHC 31.3 % (32.0-36.0); MCV 94.1 fL (80-95); MPV 11.1 fL (8.0-11.0); Neutrophils % 71.6; Nucleated RBC 0 %; Platelet Count 272 10^3/uL (130-400); RBC 4.75 10^6/uL (4.36-5.78); RDW 16.7 % (11.8-14.1); RDW-SD 57.1 fL; WBC 7.37 10^3/uL (4.4-10.8)
[2020-10-19 07:50] LABS: ALT 25 U/L (16-63); AST 14 U/L (15-37); Albumin 4.2 g/dL (3.4-5.0); Alkaline Phosphatase 81 U/L (46-116); Anion Gap 7.9 mmol/L (3-11); BUN 23 mg/dL (7-18); Bilirubin, Total 0.5 mg/dL (0.2-1.0); CO2 28.1 mmol/L (21.0-32.0); CREATININE 1.3 mg/dL (0.70-1.30); Calcium 9.1 mg/dL (8.5-10.1); Chloride 105 mmol/L (98-107); Estimated GFR 53.53 (mL/min/1.73m2); Glucose 129 mg/dL (74-106); Potassium 4.1 mmol/L (3.5-5.1); Sodium 141 mmol/L (136-145); Total Protein 7.4 g/dL (6.4-8.2)
== END 2020-10-19 03:31 | disposition home or self-care (01) ==
LOC: LBO 03:30
PROVIDERS: PCP Nurse Practitioner Family; Visit Provider Student in an Organized Health Care Education/Training Program
DX: D45 Polycythemia vera (principal)
CPT/HCPCS: 36415; 80053; 85025

== ENCOUNTER 2020-12-11 03:57 | Outpatient (CLI) | payer MEDICARE, BC, SELFPAY ==
[2020-12-11 07:41] LABS: Abs Immature Grans 0.02 10^3/uL (0.0-0.06); Absolute Basophil Count 0.06 10^3/uL (0.0-0.2); Absolute Eosinophil Count 0.12 10^3/uL (0.0-0.7); Absolute Lymphocyte Count 1.12 10^3/uL (1.2-3.4); Absolute Monocyte Count 0.32 10^3/uL (0.1-0.8); Absolute Neutrophil Count 4.38 10^3/uL (1.2-6.7); HGB 13.3 g/dL (13.5-17.5); Immature Grans % 0.3; Lymphocytes % 18.6; MCH 27.9 pg (27.0-33.0); MCHC 30.2 % (32.0-36.0); MCV 92.2 fL (80-95); MPV 11.6 fL (8.0-11.0); Monocytes % 5.3; Neutrophils % 72.8; Nucleated RBC 0 %; Platelet Count 259 10^3/uL (130-400); RBC 4.77 10^6/uL (4.36-5.78); RDW 18.6 % (11.8-14.1); RDW-SD 62.9 fL; WBC 6.02 10^3/uL (4.4-10.8)
[2020-12-11 08:43] LABS: ALT 30 U/L (16-63); AST 26 U/L (15-37); Alkaline Phosphatase 76 U/L (46-116); Anion Gap 8.6 mmol/L (3-11); BUN 19 mg/dL (7-18); Bilirubin, Total 0.8 mg/dL (0.2-1.0); CO2 27.4 mmol/L (21.0-32.0); CREATININE 1.3 mg/dL (0.70-1.30); Calcium 8.9 mg/dL (8.5-10.1); Chloride 105 mmol/L (98-107); Estimated GFR 53.53 (mL/min/1.73m2); Glucose 130 mg/dL (74-106); Potassium 4.5 mmol/L (3.5-5.1); Sodium 141 mmol/L (136-145); Total Protein 6.9 g/dL (6.4-8.2)
== END 2020-12-11 03:58 | disposition home or self-care (01) ==
LOC: LBO 03:58
PROVIDERS: PCP Nurse Practitioner Family; Visit Provider Student in an Organized Health Care Education/Training Program
DX: D45 Polycythemia vera (principal)
CPT/HCPCS: 36415; 80053; 85025

== ENCOUNTER 2021-01-30 12:26 | Outpatient (REF) | payer MEDICARE, BC, SELFPAY ==
[2021-01-30 22:10] LABS: Rheumatoid Factor <8.6 IU/mL (<12.0)
[2021-01-31 08:55] LABS: Cyclic Citrullinated Peptide <2.5 U/mL (<5.0)
[2021-01-31 15:09] LABS: ANA Interpretation Positive (Negative); ANA Titer Pattern 1:160 Homogeneous
[2021-02-01 11:29] LABS: dsDNA Ab, IgG <12.3 IU/mL (<30.0)
[2021-02-05 16:49] LABS: Misc Referral (MAYO) See Comments
== END 2021-01-30 12:27 | disposition home or self-care (01) ==
LOC: LBN 12:26
PROVIDERS: PCP Nurse Practitioner Family; Visit Provider Student in an Organized Health Care Education/Training Program
DX: R06.00 Dyspnea, unspecified (principal)
CPT/HCPCS: 86200; 86038; 86225; 86431

== ENCOUNTER 2021-02-05 03:17 | Outpatient (CLI) | payer MEDICARE, BC, SELFPAY ==
[2021-02-05] MEDS: Albuterol HFA 18 GM 200 PUFF INH IH (16:07)
[2021-02-05] MEDS: Inhaler, Assist Device 1 EACH MC (16:07)
--- NOTE | 2021-02-05 17:15 | W.PFT ---
Date of service: 02/05/21 Time of Service: 14:56 Pulmonary Function Test Result Requesting Provider Kvng Interpretation Spirometry: There is no airflow limitation by spirometry values. There is no significant bronchodilator response. There appears to be some inspiratory loop flattening on the flow volume loop. There is also some evidence for airflow obstruction on the volume-time curve. Lung Volumes: Lung volumes are normal but there may be a mild amount of air trapping. Diffusion Capacity: Diffusion is normal Airway Pressure: Airways resistance is normal Impression Although there is technically no airflow limitation seen, the volume-time curve does suggest some degree of obstruction. There is also some inspiratory loop flattening on flow volume loop. Clinical Correlation therefore is recommended.
== END 2021-02-05 03:18 | disposition home or self-care (01) ==
LOC: RT 03:18
PROVIDERS: PCP Nurse Practitioner Family; Visit Provider Student in an Organized Health Care Education/Training Program
DX: R06.09 Other forms of dyspnea (principal); J44.9 Chronic obstructive pulmonary disease, unspecified
CPT/HCPCS: 94060; 94726; 94729

== ENCOUNTER 2021-02-16 04:34 | Outpatient (CLI) | payer MEDICARE, BC, SELFPAY ==
--- NOTE | 2021-02-16 08:00 | DI.CT_ITS ---
Exam(s) CT CHEST HIGH RESOLUTION EXAM: CT CHEST HIGH RESOLUTION CLINICAL HISTORY: New onset SOB, on methotrexate,DYSPNEA,R06.00 TECHNIQUE: COMPARISON: CT UPPER ABD WITH CONTRAST (P) from 06/22/2010 CR CHEST 2 VIEWS PA,LAT from 08/07/2012 CR CHEST 2 VIEWS PA,LAT from 08/07/2012 CR XR CHEST 2V PA LATERAL from 09/25/2020 CR XR CHEST 2V PA LATERAL from 09/25/2020 FINDINGS: Helical CT and inspiratory and expiratory high-resolution acquisitions were obtained. Patient report rosalie has a history of methotrexate use. Images obtained through the upper abdomen show unremarkable appearance of visualized portions of live r, spleen, pancreas, adrenals, and kidneys. Note is made of a prior cholecystectomy. No biliary dil atation. There is a transvenous cardiac pacemaker in position. No cardiomegaly. Coronary artery calcificatio ns are noted. Ascending thoracic aorta is ectatic at about 41 millimeters. There are multiple calcified and noncalcified pulmonary nodules. Largest noncalcified pulmonary nodu le is about 5 millimeters mean diameter in the right lower peripherally. There are predominantly linear areas increased radiodensity in both lung bases with some reticulation also present. There appears to be slight volume loss in these findings could represent atelectasis. No definite ground-glass opacities seen. Mild scattered bronchiectasis noted. No pleural effusion or pleural-based mass. No mediastinal or hilar adenopathy. No supraclavicular or axillary adenopat hy. Prior chest radiograph of September 25 did not show basilar opacities, linear or otherwise. IMPRESSION: Apparent interval development of areas of bibasilar pulmonary opacities, predominantly linear, but wi th additional reticular appearance. There appears to be mild volume loss. Although the findings may just represent atelectasis, the findings are somewhat suspicious for methotrexate toxicity, particul delmy considering the normal appearance of the lungs on prior recent examination in September of this year . Note is also made of multiple pulmonary nodules as described above, the largest a 5 millimeter noncal cified nodule in the right lower lobe. Follow-up low-dose chest CT suggested in 6 months in a smoker , 12 months in a nonsmoker. RADIATION DOSE DELIVERED: 797.08mGy.cm Total DLP 3.21mGy CTDIvol RADIATION OPTIMIZATION: All CT scans at this facility use at least one of these dose optimization te chniques: automated exposure control; mA and/or kV adjustment per patient size (includes targeted exa ms where dose is matched to clinical indication); or iterative reconstruction.
== END 2021-02-16 04:54 ==
PROVIDERS: PCP Nurse Practitioner Family; Visit Provider Student in an Organized Health Care Education/Training Program
DX: R06.00 Dyspnea, unspecified (principal); R91.8 Other nonspecific abnormal finding of lung field
CPT/HCPCS: 71250

== ENCOUNTER 2021-03-23 02:24 | Outpatient (CLI) | payer MEDICARE, BC, SELFPAY ==
[2021-03-23 07:22] LABS: Abs Immature Grans 0.04 10^3/uL (0.0-0.06); Absolute Basophil Count 0.05 10^3/uL (0.0-0.2); Absolute Eosinophil Count 0.14 10^3/uL (0.0-0.7); Absolute Lymphocyte Count 1.05 10^3/uL (1.2-3.4); Absolute Monocyte Count 0.54 10^3/uL (0.1-0.8); Absolute Neutrophil Count 5.03 10^3/uL (1.2-6.7); Basophils % 0.7; HGB 13.7 g/dL (13.5-17.5); Immature Grans % 0.6; Lymphocytes % 15.3; MCH 29.7 pg (27.0-33.0); MCHC 31.1 % (32.0-36.0); MCV 95.4 fL (80-95); MPV 10.6 fL (8.0-11.0); Monocytes % 7.9; Neutrophils % 73.5; Nucleated RBC 0 %; Platelet Count 242 10^3/uL (130-400); RBC 4.61 10^6/uL (4.36-5.78); RDW 18.4 % (11.8-14.1); RDW-SD 64.2 fL; WBC 6.85 10^3/uL (4.4-10.8)
[2021-03-23 07:37] LABS: ALT 20 U/L (16-63); AST 15 U/L (15-37); Albumin 3.8 g/dL (3.4-5.0); Alkaline Phosphatase 85 U/L (46-116); Anion Gap 6.2 mmol/L (3-11); BUN 21 mg/dL (7-18); Bilirubin, Total 0.6 mg/dL (0.2-1.0); CO2 27.8 mmol/L (21.0-32.0); CREATININE 1.2 mg/dL (0.70-1.30); Calcium 8.8 mg/dL (8.5-10.1); Chloride 105 mmol/L (98-107); Estimated GFR 58.71 (mL/min/1.73m2); Glucose 136 mg/dL (74-106); Sodium 139 mmol/L (136-145)
== END 2021-03-23 02:25 | disposition home or self-care (01) ==
LOC: LBO 02:25
PROVIDERS: PCP Nurse Practitioner Family; Visit Provider Student in an Organized Health Care Education/Training Program
DX: D45 Polycythemia vera (principal)
CPT/HCPCS: 36415; 80053; 85025

== ENCOUNTER 2021-03-27 00:58 | Outpatient (CLI) | payer MEDICARE, BC, SELFPAY ==
--- NOTE | 2021-03-27 | DI.US_ITS ---
APPROVED REPORT EXAM: Comprehensive 2D, Doppler, and color-flow Echocardiogram Patient Location: Out-Patient [place] Laborer: Summer Blank RDCS (AE) Indications: Pacem Other Information Study Quality: Fair. Technically limited study due to body habitus. Conclusion Technically difficult but adequate study Normal left ventricular wall thickness and chamber size. Estimated ejection fraction is 55 to 60%. There are no segmental wall motion abnormalities Normal right ventricular size and systolic function Both atria are normal in size The aortic valve is trileaflet and sclerotic with mild to moderate regurgitation Mild mitral annular calcification. Trace mitral regurgitation Normal tricuspid valve with trace regurgitation. Unable to estimate right ventricular systolic press ure The pulmonic valve is not well visualized Wall motion Left Ventricle The left ventricle is normal size. The overall left ventricular systolic function appears normal. The re is normal left ventricular wall thickness. There is normal LV segmental wall motion. There is no v entricular septal defect visualized. LVEF is 55-60%. Right Ventricle The right ventricle is normal size. The right ventricular systolic function is normal. Atria The left atrium size is normal. The right atrium size is normal. Aortic Valve The Aortic valve is sclerotic. There is no aortic valvular stenosis. Mild to moderate aortic regurgit ation. Mitral Valve Mild mitral annular calcification. No evidence of mitral valve stenosis. Trace mitral regurgitation. Tricuspid Valve The tricuspid valve is normal in structure. There is no tricuspid valve stenosis. Trace tricuspid reg urgitation. Pulmonic Valve Pulmonic valve is not well visualized. There is no pulmonic valvular stenosis. There is no pulmonic v alvular regurgitation. Great Vessels The aortic root is normal in size. Ascending aorta is not well visualized. Aortic arch is normal in c aliber. Due to poor image quality, the IVC could not be assessed. Pericardium Technically difficult subcostal imaging. 2D Dimensions IVSD d PLAX 1.04 cm M: 0.6-1.2 LV Vol A2C d MOD 83.6 mL LVPW d PLAX 1.04 cm M: 0.6 - 1.2 LV Vol A4C d MOD 103.6 mL LVID d PLAX 4.26 cm M: 4.2 - 5.8 LA vol/ BSA A2C s A-L 12.0 mL/m2 LVDs 3.00 cm M: 2.5 - 4.0 LA vol/ BSA A4C s A-L 21.6 mL/m2 Ao Root d 3.72 cm M: 3.1 - 3.7 LA Vol/ BSA Biplane s A-L 16.6 mL/m2 RA Area A4C 15.87 cm2 LA Area A4C s MOD 16.36 cm2 RA Vol/ BSA A4C s A-L 21.0 mL/m2 LA Area A2C s MOD 11.80 cm2 LV EF Teichholz 56.4 % LV EF A4C MOD 57.2 % LVEF (Young's) 56.01 % M: 52 - 72 LV EF A2C MOD 55.4 % LV Volume 68.45 mL M: 62 - 150 LV EF Biplane MOD 56.0 % LV Volume Index 30.55 mL/m2 M: 34 - 74 SV 53.01 mL LV Vol Biplane MOD 94.6 mL SV Index 23.67 mL/m2 FS 29.20 % M-Mode TAPSE 2.51 cm (M/F) >1.7 LV Diastology MV E' medial 0.065 (>0.07 m/s) E/A Ratio 0.8 LV E/e MED 11.15 (<14) MV E Vmax 0.72 (0.4-1.3 m/s) MV E' lateral 0.059 (>0.1 m/s) MV A Vmax 0.95 (0.4-1.3 m/s) LV E/e LAT 12.25 (<14) MV E/A Ratio 0.76 MV E/E' medial 11.17 MV E/E' lateral 12.29 Aortic Valve LVOT Area 3.88 cm2 AoV Area Vmax 2.95 cm2 LVOT Vmax 1.07 m/s AoV Area/ BSA (Vmax) 1.32 cm2/m2 LVOT Mean Camilo. 0.68 m/s YOMAIRA Mean Camilo. 2.79 cm2 LVOT Peak Grad 4.6 mmHg YOMAIRA Mean Camilo. Index 1.24 cm2/m2 LVOT Mean Grad 2.2 mmHg AR DT 3004 msec LVOT VTI 0.250 m AR PHT 871 msec LVOT Diam s 2.20 cm AoV Vmax 1.41 m/s Velocity Ratio 0.75 AoV Mean Camilo. 0.94 m/s AoV Peak Grad 7.9 mmHg LVOT SV 96.82 mL AoV Mean Grad 4.1 mmHg AoV VTI 0.271 m AoV Area VTI 3.57 cm2 AoV Area/ BSA (VTI) 1.59 cm/m2 Mitral Valve MV DT 460 (160-240 msec) MV PHT 133 msec MV Area PHT 1.65 cm2 MV VTI 0.411 m MV Area VTI 2.36 (4.0-6.0 cm2) Pulmonary Valve PV Vmax 1.05 (0.5-1.5 m/s) RVOT Peak Gr. 2.70 mmHg PV Peak Grad 4.4 mmHg RVOT Mean Gr. 1.45 mmHg PV Mean Grad 2.6 mmHg RVOT VTI 0.203 m PV VTI 0.251 m RVOT Vmax 0.82 m/s Tricuspid Valve TR Peak Grad 16.7 mmHg TR Vmax 2.04 m/s
== END 2021-03-27 01:18 ==
PROVIDERS: PCP Nurse Practitioner Family; Visit Provider Nurse Practitioner Primary Care
DX: I25.10 Atherosclerotic heart disease of native coronary artery without angina pectoris (principal); R93.9 Diagnostic imaging inconclusive due to excess body fat of patient; Z95.0 Presence of cardiac pacemaker; I08.0 Rheumatic disorders of both mitral and aortic valves
CPT/HCPCS: 93306

== ENCOUNTER 2021-05-21 03:13 | Outpatient (CLI) | payer MEDICARE, BC, SELFPAY ==
[2021-05-21 07:25] LABS: Abs Immature Grans 0.05 10^3/uL (0.0-0.06); Absolute Basophil Count 0.05 10^3/uL (0.0-0.2); Absolute Lymphocyte Count 1.33 10^3/uL (1.2-3.4); Absolute Neutrophil Count 5.48 10^3/uL (1.2-6.7); Basophils % 0.7; HCT 44.4 % (40.0-50.0); HGB 13.3 g/dL (13.5-17.5); Immature Grans % 0.7; Lymphocytes % 17.7; MCH 28.1 pg (27.0-33.0); MCV 93.9 fL (80-95); MPV 10.7 fL (8.0-11.0); Neutrophils % 72.9; Nucleated RBC 0 %; Platelet Count 328 10^3/uL (130-400); RBC 4.73 10^6/uL (4.36-5.78); RDW 16.4 % (11.8-14.1); RDW-SD 56.9 fL; WBC 7.51 10^3/uL (4.4-10.8)
[2021-05-21 08:46] LABS: ALT 20 U/L (16-63); AST 19 U/L (15-37); Albumin 3.7 g/dL (3.4-5.0); Alkaline Phosphatase 93 U/L (46-116); Anion Gap 7.7 mmol/L (3-11); BUN 17 mg/dL (7-18); Bilirubin, Total 0.4 mg/dL (0.2-1.0); CO2 29.3 mmol/L (21.0-32.0); CREATININE 1.3 mg/dL (0.70-1.30); Chloride 102 mmol/L (98-107); Estimated GFR 53.53 (mL/min/1.73m2); Glucose 127 mg/dL (74-106); Sodium 139 mmol/L (136-145)
== END 2021-05-21 03:14 | disposition home or self-care (01) ==
LOC: LBO 03:13
PROVIDERS: PCP Nurse Practitioner Family; Visit Provider Student in an Organized Health Care Education/Training Program
DX: D45 Polycythemia vera (principal); Z79.899 Other long term (current) drug therapy; Z87.39 Personal history of other diseases of the musculoskeletal system and connective tissue
CPT/HCPCS: 36415; 80053; 85025

== ENCOUNTER 2021-05-28 12:04 | Outpatient (CLI) | payer MEDICARE, BC, SELFPAY ==
--- NOTE | 2021-05-28 | DI.RAD_ITS ---
Exam(s) XR HIP RT COMPLETE AP PELVIS EXAM: XR HIP RT COMPLETE AP PELVIS CLINICAL HISTORY: RT PELVIC PAIN, R10.2, RT ANTERIOR HIP PAIN, S/P FALL FROM TRUCK 3 DAYS AGO. TECHNIQUE: 2D digital imaging was performed. COMPARISON: Prior x-rays 09/02/2013 FINDINGS: There is no evidence of obvious pelvic nor hip fracture. Again noted is evidence of previous left in guinal hernia surgery and there are surgical clips medial to both hips again noted which may be from prior vascular surgery. IMPRESSION: No fractures evident. DATA REPOSITORY: RADIATION DOSE DELIVERED:
== END 2021-05-28 12:24 ==
PROVIDERS: PCP Nurse Practitioner Family; Visit Provider Physician Assistant Medical
DX: R10.2 Pelvic and perineal pain (principal); Z98.890 Other specified postprocedural states
CPT/HCPCS: 73502

== ENCOUNTER 2021-06-07 02:15 | Outpatient (CLI) | payer MEDICARE, BC, SELFPAY ==
--- NOTE | 2021-06-07 | DI.CT_ITS ---
Exam(s) CT PELVIC WO EXAM: CT PELVIC WO CLINICAL HISTORY: RT PELVIC PAIN, R10.2,S/P TRAUMA, DIFFICULTY WALKING, ? FX. TECHNIQUE: Imaging Protocol: Axial computed tomography images with coronal and sagittal reformatted images were created and reviewed. CONTRAST MATERIAL: Oral: / no COMPARISON: CT UPPER ABD WITH CONTRAST (P) from 06/22/2010 CR XR HIP RT COMPLETE AP PELVIS from 05/28/2021 CR XR HIP RT COMPLETE AP PELVIS from 05/28/2021 FINDINGS: Bladder: Symmetric distention, no gross wall thickening. Bowel: No obstruction or bowel wall thickening. Peritoneal cavity: No ascites, collection or mesenteric inflammatory response. Bones: Nondisplaced fracture right inferior pubic ramus. No additional fractures identified. Degen erative disc changes at L4-5 and L5-S1. Mild degenerative changes of both hips. No visible hip join t effusion. SI joints and pubic since appear intact. Soft tissues: Prior inguinal and left lower abdominal wall hernia repairs. Surgical clips bilatera l groin regions. No hematoma. Symmetric musculature. IMPRESSION: Nondisplaced fracture right inferior pubic ramus. RADIATION DOSE DELIVERED: 510.75mGy.cmTotal DLP DATA REPOSITORY: All CT scans at this facility are submitted to the National Radiology Data Registry (NRDR) Dose Index Registry (DIR) with the [employer] ([employer]). RADIATION OPTIMIZATION: All CT scans at this facility use at least one of these dose optimization te chniques: automated exposure control; mA and/or kV adjustment per patient size (includes targeted exa ms where dose is matched to clinical indication); or iterative reconstruction.
== END 2021-06-07 02:35 ==
PROVIDERS: PCP Nurse Practitioner Family; Visit Provider Nurse Practitioner Family
DX: R10.2 Pelvic and perineal pain (principal); R26.2 Difficulty in walking, not elsewhere classified; S32.591A Other specified fracture of right pubis, initial encounter for closed fracture; X58.XXXA Exposure to other specified factors, initial encounter
CPT/HCPCS: 72192

== ENCOUNTER → 2021-06-22 07:51 | Outpatient (BNVA) | payer MEDICARE, BC, SELFPAY | PROVIDERS: PCP Nurse Practitioner Family; Referring Provider Nurse Practitioner Family; Visit Provider Urology | DX: R31.29 Other microscopic hematuria (principal); N40.0 Benign prostatic hyperplasia without lower urinary tract symptoms; N18.9 Chronic kidney disease, unspecified | CPT/HCPCS: 36415; 81003; 99214 ==

== ENCOUNTER 2021-06-22 08:44 | Outpatient (REF) | payer MEDICARE, BC, SELFPAY ==
[2021-06-22 13:42] LABS: ALT 24 U/L (16-63); AST 15 U/L (15-37); Alkaline Phosphatase 118 U/L (46-116); Anion Gap 8.1 mmol/L (3-11); BUN 20 mg/dL (7-18); Bilirubin, Total 0.4 mg/dL (0.2-1.0); CO2 27.9 mmol/L (21.0-32.0); CREATININE 1.2 mg/dL (0.70-1.30); Calcium 8.7 mg/dL (8.5-10.1); Chloride 104 mmol/L (98-107); Estimated GFR 58.71 (mL/min/1.73m2); Glucose 124 mg/dL (74-106); Potassium 4.5 mmol/L (3.5-5.1); Sodium 140 mmol/L (136-145)
== END 2021-06-22 08:45 | disposition home or self-care (01) ==
LOC: LBN 08:44
PROVIDERS: PCP Nurse Practitioner Family; Visit Provider Urology
DX: N18.30 Chronic kidney disease, stage 3 unspecified (principal)
CPT/HCPCS: 80053

== ENCOUNTER 2021-10-10 01:57 | Outpatient (CLI) | payer MEDICARE, BC, SELFPAY ==
--- NOTE | 2021-10-10 06:30 | DI.CT_ITS ---
Exam(s) CT CHEST WO EXAM: CT CHEST WO CLINICAL HISTORY: f/u nodules and methotrexate abnormalities,J98.4,R91.8,T45.1X5A TECHNIQUE: Imaging Protocol: Axial computed tomography images with coronal and sagittal reformatted images were created and reviewed CONTRAST MATERIAL: Intravenous: Omnipaque 350 Contrast volume:structured data in ml. COMPARISON: CT CT CHEST HIGH RESOLUTION from 02/16/2021 FINDINGS: Tracheobronchial tree: Minimal bronchiectasis. No mucous plugging. Mediastinum and Fabi: No dominant adenopathy or fluid collection. Pulmonary parenchyma: No consolidation or dominant measurable mass. Stable scattered tiny pulmonary n odules, the largest at the right lung base measuring 5 millimeters.Minimal peripheral reticular palencia es. Pleura: No effusion or pneumothorax. Heart: The heart is not dilated. coronary artery calcifications are seen. Aorta: Stable ectasia ascending aorta. Mild atherosclerotic changes.. Upper abdomen: Unremarkable. Lymph nodes: Within normal limits. Bones: Degenerative changes with flowing osteophytes. Tubes, Catheters, and Lines: Pacemaker. Soft tissues: Bilateral gynecomastia. IMPRESSION: Stable appearance of scattered small pulmonary nodules. Stable appearance of mild reticular changes and minimal bronchiectasis. RADIATION DOSE DELIVERED: 614.15mGy.cm Total DLP DATA REPOSITORY: All CT scans at this facility are submitted to the National Radiology Data Registry (NRDR) Dose Index Registry (DIR) with the [employer] (ACR). RADIATION OPTIMIZATION: All CT scans at this facility use at least one of these dose optimization te chniques: automated exposure control; mA and/or kV adjustment per patient size (includes targeted exa ms where dose is matched to clinical indication); or iterative reconstruction.
== END 2021-10-10 02:17 ==
PROVIDERS: PCP Nurse Practitioner Family; Visit Provider Student in an Organized Health Care Education/Training Program
DX: J98.4 Other disorders of lung (principal); R91.8 Other nonspecific abnormal finding of lung field; T45.1X5A Adverse effect of antineoplastic and immunosuppressive drugs, initial encounter; J47.9 Bronchiectasis, uncomplicated
CPT/HCPCS: 71250

== ENCOUNTER 2021-10-11 01:50 | Outpatient (CLI) | payer MEDICARE, BC, SELFPAY ==
--- NOTE | 2021-10-11 14:00 | DI.DEXA_ITS ---
Exam(s) XR DEXA BONE DENSITY W/WO REY EXAM: XR DEXA BONE DENSITY W/WO REY CLINICAL HISTORY: FX OTHER SITE DUE TO DISEASE, M84.68XA, RECENT STEROID USE, Z92.241 TECHNIQUE: COMPARISON: CR XR HIP RT COMPLETE AP PELVIS from 05/28/2021 FINDINGS: DEXA scan was performed according to the usual protocol. Please see the accompanying data sheets. Findings for left hip scanning are T-score -1.8 with left femoral neck T-score -1.9. Findings for lumbar spine scanning are T-score -1.5. Findings for left forearm scanning are T-score -1.5. IMPRESSION: The findings are consistent with osteopenia according to WHO criteria. The lateral vertebral scanogr am shows no evidence of a vertebral compression fracture. RADIATION DOSE DELIVERED: Total DLP
== END 2021-10-11 02:10 ==
PROVIDERS: PCP Nurse Practitioner Family; Visit Provider Nurse Practitioner Family
DX: M85.88 Other specified disorders of bone density and structure, other site (principal); M84.68XA Pathological fracture in other disease, other site, initial encounter for fracture; Z92.241 Personal history of systemic steroid therapy
CPT/HCPCS: 77080

== ENCOUNTER 2021-11-05 03:13 | Outpatient (CLI) | payer MEDICARE, BC, SELFPAY ==
[2021-11-05 07:12] LABS: Abs Immature Grans 0.05 10^3/uL (0.0-0.06); Absolute Basophil Count 0.07 10^3/uL (0.0-0.2); Absolute Lymphocyte Count 1.48 10^3/uL (1.2-3.4); Absolute Monocyte Count 0.67 10^3/uL (0.1-0.8); Absolute Neutrophil Count 6.33 10^3/uL (1.2-6.7); Basophils % 0.8; Immature Grans % 0.6; Lymphocytes % 17.2; MCH 22.7 pg (27.0-33.0); MCHC 28.3 % (32.0-36.0); MCV 80 fL (80-95); MPV 10.3 fL (8.0-11.0); Monocytes % 7.8; Neutrophils % 73.6; Platelet Count 291 10^3/uL (130-400); RBC 5.72 10^6/uL (4.36-5.78); RDW 18.3 % (11.8-14.1); RDW-SD 51.6 fL
[2021-11-05 08:26] LABS: Magnesium 2.5 mg/dL (1.8-2.4)
[2021-11-05 08:28] LABS: ALT 19 U/L (16-63); AST 15 U/L (15-37); Albumin 4.2 g/dL (3.4-5.0); Alkaline Phosphatase 97 U/L (46-116); Anion Gap 7.7 mmol/L (3-11); BUN 23 mg/dL (7-18); Bilirubin, Total 0.5 mg/dL (0.2-1.0); CO2 26.3 mmol/L (21.0-32.0); CREATININE 1.3 mg/dL (0.70-1.30); Calcium 8.9 mg/dL (8.5-10.1); Chloride 106 mmol/L (98-107); Estimated GFR 53.39 (mL/min/1.73m2); Glucose 128 mg/dL (74-106); Potassium 4.9 mmol/L (3.5-5.1); Sodium 140 mmol/L (136-145); Total Protein 7.1 g/dL (6.4-8.2)
[2021-11-05 17:12] LABS: Vitamin B12 592 pg/mL (193-986)
== END 2021-11-05 03:14 | disposition home or self-care (01) ==
LOC: LBO 03:13
PROVIDERS: Nurse Practitioner Family; PCP Nurse Practitioner Family; Visit Provider Nurse Practitioner Family
DX: Z87.39 Personal history of other diseases of the musculoskeletal system and connective tissue (principal); I12.9 Hypertensive chronic kidney disease with stage 1 through stage 4 chronic kidney disease, or unspecified chronic kidney disease; N18.30 Chronic kidney disease, stage 3 unspecified; K59.00 Constipation, unspecified; R06.09 Other forms of dyspnea; R21 Rash and other nonspecific skin eruption; Z79.899 Other long term (current) drug therapy
CPT/HCPCS: 36415; 80053; 82607; 83735; 85025

== ENCOUNTER 2021-12-21 01:13 | Outpatient (RCR) | payer MEDICARE, BC, SELFPAY ==
--- OUTSIDE RECORDS SUMMARY | 2021-12-21 01:19 | XMS_ITS | Encounter Summary ---
:1945 Author Organization [facility] Address [address] [place] [address] Care Team Providers Name Role Phone Layne Cai MD Primary Care Provider Claire Lopez LEAN SENSEI Unavailable Tod Perez LEAN SENSEI Unavailable Reason for Visit Reason Comments Telemedicine Video Visit Encounter Details Date Type Department Care Team Description 09/27/[address] [facility] Cancer Center Reshma Hilario Canc eled (Provider) Hematology & Oncology LEAN SENSEI - [id number] [place] [address] [facility] 2 [place] [address] (Wo rk) Social History Tobacco Use Types Packs/Day Years Used Date Former Smoker Cigarettes, Cigars 3 20 Quit: Smokeless Tobacco: Never Used Comments: Quit >30 years ago Alcohol Use Standard Drinks/Week Comments Yes 0 (1 standard drink = 0.6 oz pure alcoho l) Occasional beer Alcohol Habits Answer Date Recorded How often do you have a drink containing alcohol? Not asked How many drinks containing alcohol do you have on a Not aske d typical day when you are drinking? How often do you have six or more drinks on one Not asked occasion? Comment: Occasional beer 04/07/2012 Sex Assigned at Date Recorded Not on file documented as of this encounter Functional Status Functional Status Response Date of Assessment Because of a physical, mental, or emotional condition, No 06/19/2021 does this person have difficulty doing errands alone such as visiting a doctor's office or shopping? Cognitive Status Response Date of Assessment Because of a physical, mental, or emotional condition, No 11/24/2017 does this person have serious difficulty concentrating, remembering, or making decisions? documented as of this encounter Plan of Treatment Upcoming Encounters Date Type Specialty Care Team Description 12/27/2021 Office Visit Hematology and Erin Barillas M D Oncology [address] [place] [phone] (Wo rk) 02/14/2022 Office Visit Hematology and Erin Barillas M D Oncology [address] [place] [phone] (Wo rk) 04/25/2022 Ancillary Procedure Cardiology 04/25/2022 Office Visit Cardiology Claire Lopez NP [address] [place] [phone] (Wo rk) 05/13/2022 Office Visit Rheumatology Tod Perez NP [address] [phone] (Wo rk) documented as of this encounter Visit Diagnoses Not on filedocumented in this encounter Care Teams Flooring Salesperson Relationship Specialty Start Date End Date Layne Cai MD PCP - General 04/05/[address] [place] [phone] Claire Lopez NP Cardiovascular Disease 11/22/20 130 [facility] [address] [place] [address] Tod Perez NP Rheumatology 12/28/20 111 [facility], Level [address] [place] [address] documented as of this encounter
--- OUTSIDE RECORDS SUMMARY | 2021-12-21 01:19 | XMS_ITS | Encounter Summary ---
:1945 Author Organization [facility] Address [address] [place] [address] Care Team Providers Name Role Phone Layne Cai MD Primary Care Provider Claire Lopez AIRBORNE OPERATIONS Unavailable Tod Perez [employer] Unavailable Reason for Visit Reason Onset Date Comments Appointment Related 09/25/2021 Encounter Details Date Type Department Care Team Description 09/25/2021 Telephone [facility] Cancer Center Rochelle Hilario NP Appointment Related Hematology & Oncology [address] [place], [place] [address] [place] [address] [phone] (Wo rk) Social History Tobacco Use [...] making decisions? documented as of this encounter Miscellaneous Notes Telephone Encounter - Nan Queen MA - 09/25/2021 1607 EDT Called patient to remind them about upcoming televideo appointment scheduled for 09/27/21. Left a voicemail. documented in this encounter Plan of Treatment Upcoming Encounters Date Type Specialty Care Team Description 12/27/2021 Office Visit Hematology and Erin Barillas M D Oncology [address] [phone] (Wo rk) 02/14/2022 Office Visit Hematology and Erin Barillas M D Oncology [address] [phone] (Wo rk) 04/25/2022 Ancillary Procedure Cardiology 04/25/2022 Office Visit Cardiology Claire Lopez NP 130 [facility] 21 [place] [phone] (Wo rk) 05/13/2022 Office Visit Rheumatology Tod Perez NP [address] [phone] (Wo rk) documented as of this encounter Visit Diagnoses Not on filedocumented in this encounter Care Teams Child Psychometrist Relationship Specialty Start Date End Date Layne Cai MD PCP - General 04/05/20 [address] [place] [phone] Claire Lopez NP Cardiovascular Disease 11/22/20 130 [facility] [address] [place] [phone] Tod Perez NP Rheumatology 12/28/20 111 [facility], Level [address] [place] [phone] documented as of this encounter
--- OUTSIDE RECORDS SUMMARY | 2021-12-21 01:19 | XMS_ITS | Encounter Summary ---
:1945 Author Organization [facility] Address [address] [place] [address] Care Team Providers Name Role Phone Layne Cai MD Primary Care Provider Claire Lopez NP Unavailable Tod Perez NP Unavailable Reason for Referral Radiology Services (Routine/Next Available) - Receiving Office to Obtain Authorization Specialty Diagnoses / Procedures Referred By Contact Refer red To Contact Osteoporosis Diagnoses Pathological fracture of other site due to other disease, initial encounter Screening for osteoporosis History of recent steroid use Inflammatory arthritis Tod Perez NP [facility] Endocrinology Procedures XR DEXA BONE DENSITY [address], [address] [address] [place] [phone] Referral ID Status Reason Start Expiration Visits Visits Date Date Requested Authorized [id number] Receiving Office 07/31/2021 1 1 to Obtain Authorization Reason for Visit Reason Onset Date Comments Coordination Of Care 07/30/2021 Encounter Details Date Type Department Care Team Description 07/30/2021 Telephone [facility] Tod Perez, Co ordination Of Care Rheumatology & NEUROSCIENTIST Immunology - [facility] [address] [facility] [address] [place] [phone] [place] [address], [place] [phone] (Wo rk) Social History Tobacco Use Types [...] this encounter Miscellaneous Notes Telephone Encounter - Della Ceron RN - 07/31/2021 1505 EST I faxed over new order with correct ICD-10 code to [facility] Radiology. elephone Encounter - Tod Perez NP - 07/31/2021 1245 EST Spoke to [facility] M84.68xa was accepted. Please bipin corrected order on cover sheet and fax new order. Telephone Encounter - Gisele Elliott - 07/30/2021 1336 EST [facility] is calling to advise that Medicare won't cover a DXA for this patient with the diagnosis codes given on the referral. They need something showing he has fractures. It won't cover his right inferior pubic ramus fracture (S32.5) either. Please call back [facility] radiology to advise. documented in this encounter Plan of Treatment Upcoming Encounters Date Type Specialty Care Team Description 12/27/2021 Office Visit Hematology and Erin Barillas M D Oncology [address] [place] [phone] (Wo rk) 02/14/2022 Office Visit Hematology and Erin Barillas M D Oncology [address] [place] [phone] (Wo rk) 04/25/2022 Ancillary Procedure Cardiology 04/25/2022 Office Visit Cardiology Claire Lopez NP 130 [facility] [address] [phone] (Wo rk) 05/13/2022 Office Visit Rheumatology Tod Perez NP 111 [facility], [address] [phone] (Wo rk) Scheduled Orders Name Type Priority Associated Diagnoses Order S chedule XR DEXA BONE DENSITY Imaging Routine Pathological fractur e of Expected: 08/01/2021 other site due to other (Hugo roximate), disease, initial encounter Expires: 07/31/2022 Screening for os teoporosis History of recent steroid use Inflammatory arthritis documented as of this encounter Visit Diagnoses Diagnosis Pathological fracture of other site due to other disease, initial encounter - Primary Screening for osteoporosis Special screening for osteoporosis History of recent steroid use Inflammatory arthritis Unspecified inflammatory polyarthropathy documented in this encounter Care Teams Nuisance Wildlife Specialist Relationship Specialty Start Date End Date Layne Cai MD PCP - General 04/05/20 [address] [place] [phone] Claire Lopez NP Cardiovascular Disease 11/22/20 130 [facility] 2-1 [place] [phone] Tod Perez NP Rheumatology 12/28/20 111 [facility], [address] [place] [phone] documented as of this encounter
--- OUTSIDE RECORDS SUMMARY | 2021-12-21 01:19 | XMS_ITS | Encounter Summary ---
:[address] [facility] Address [address] [place] [address] Care Team Providers Name Role Phone Layne Cai MD Primary Care Provider Claire Lopez UPHOLSTERY DEPARTMENT SUPERVISOR Unavailable Tod Perez UPHOLSTERY DEPARTMENT SUPERVISOR Unavailable Reason for Referral Prior Authorization (See Order Priority) - Authorized Specialty Diagnoses / Procedures Referred By Contact Refer red To Contact Infusion Therapy Diagnoses Polycythemia vera (HCC) Reshma Hilario, UPHOLSTERY DEPARTMENT SUPERVISOR [facility] [address] [place] [phone] [facility] [address] [place], [place] Fax: [phone] Referral ID Status Reason Start Expiration Visits Visits Date Date Requested Authorized [id number] Authorized Specialty 06/15/2032 1 1 Services 1 Required Question Answer Is this appt for transfusion, medication, test or inje ction? Procedure Type of procedure? Therapeutic phlebotomy Have orders been place for this appt? (i.e.: Blood Tra nsfusion Yes Order Set, Therapy Plan, Lab Orders, Supportive Plan, Etc) Comments Patient needs appt on 06/19/21 (will be on site for a 12pm appt and can do earlier or after that appointment please) Reason for Visit Prior Authorization (See Order Priority) - Authorized Specialty Diagnoses / Procedures Referred By Contact Refer red To Contact Infusion Therapy Diagnoses Polycythemia vera (HCC) Reshma Hilario, UPHOLSTERY DEPARTMENT SUPERVISOR [facility] [address] [address] [facility], [address] [place], [place] Fax: [phone] Referral ID Status Reason Start Expiration Visits Visits Date Date Requested Authorized [id number] Authorized Specialty 06/15/2032 1 1 Services 1 Required Encounter Details Date Type Department Care Team Description 06/19/2021 Hospital Encounter [facility] Jonathan ycythemia vera (HCC) [facility] [address] [place] [address] Social History Tobacco Use Types Packs/Day Years [...] on file documented as of this encounter Last Filed Vital Signs Vital Sign Reading Time Taken Comments Blood Pressure 173/76 06/19/2021 1358 EST Pulse - - Temperature 36.2 ??C (97.2 ??F) 06/19/2021 1300 EST Respiratory Rate 20 06/19/2021 1300 EST Oxygen Saturation 98% 06/19/2021 1300 EST Inhaled Oxygen Concentration - - Weight - - Height - - Body Mass Index - - documented in this encounter Functional Status Functional Status Response [...] making decisions? documented as of this encounter Medications at Time of Discharge Medication Sig Dispensed Refills Start Date End Date aspirin 81 mg EC tablet Take 81 mg by 0 mouth daily. finasteride (PROSCAR) 5 mg Take 5 mg by mouth 0 tablet daily. metoprolol XL (TOPROL-XL) TK 1 T PO D 0 0 25 mg tablet omeprazole (PRILOSEC) 40 0 04/28/2019 mg capsule simvastatin (ZOCOR) 40 mg Take 40 mg by 0 tablet mouth every evening. sulfaSALAzine (AZULFIDINE) 1 tab twice daily 180 Tablet 3 500 mg tablet doxycycline (VIBRA-TABS) Take 100 mg by 0 11/15/2021 100 mg tablet mouth 2 times daily. hydroxyurea (HYDREA) 500 Take one tablet by 90 capsule 1 11/08/2021 mg capsule mouth daily. documented as of this encounter Discharge Disposition Disposition Code Departure Means Destination Home or Self Alf documented in this encounter Progress Notes Mata Singer RN - 06/19/2021 1300 EST Praneeth Villanueva arrive to [facility] Infusion Center for Therapeutic Phlebotomy secondary to D45 #20 Peripheral IV placed. Blood collection bag attached and unclamped. Tourniquet released after blood began to flow. 1355 Procedure completed, 500 ml blood withdrawn over 25 minutes. PIV removed, dressing applied. Patient encouraged to increase oral fluids before, during and after Therapeutic Phlebotomy procedure. Therapeutic phlebotomy performed per protocol, patient tolerated well. PIV removed, clean, sterile pressure dressing applied. Post Therapeutic phlebotomy instructions reviewed with patient. rMata rock RN - 06/19/2021 1300 EST CBC drawn via butterfly documented in this encounter Plan of Treatment Upcoming Encounters Date Type Specialty Care Team Description 12/27/2021 Office Visit Hematology and Erin Barillas M D Oncology 111 [facility] 2 [place] [phone] (Wo rk) 02/14/2022 Office Visit Hematology and Erin Barillas M D Oncology 111 [facility] 2 [place] [address] (Wo rk) 04/25/2022 Ancillary Procedure Cardiology 04/25/2022 Office Visit Cardiology Claire Lopez NP 130 [facility] [address] [phone] (Wo rk) 05/13/2022 Office Visit Rheumatology Tod Perez NP 111 [facility], [facility] 5 [place] [address] (Wo rk) Scheduled Referrals Name Type Priority Associated Diagnoses Order S chedule AMB Outpatient Referral STAT Polycythemia vera 1 O ccurrences CONS/FOLLOW UP (HCC) starting 09/2021 (SHEP 4 until 2 INFUSIONS) documented as of this encounter Procedures Procedure Name Priority Date/Time Associated Comments Diagnosis COMPLETE BLOOD COUNT STAT 06/19/2021 13:03 Res ults for this AND DIFFERENTIAL EST procedure a re in the results section. documented in this encounter Results (ABNORMAL) COMPLETE BLOOD COUNT AND DIFFERENTIAL (06/19/2021 13:03 EST) WBC 8.09 4.00 - 10.40 [facility] K/critical access hospital LABORATORY SERVICES RBC 5.06 4.36 - 5.78 [facility]critical access hospital LABORATORY SERVICES Hemoglobin 13.7 (L) 13.8 - 17.3 [facility] gm/dL LABORATORY SERVICES HCT 45.3 39.5 - 50.2 % [facility] LABORATORY SERVICES MCV 90 81 - 95 fl [facility] LABOR[facility]ORY SERVICES MCH 27.1 (L) 27.6 - 33.0 pg [facility] LABORATORY SERVICES MCHC 30.2 (L) 32.8 - 36.4 [facility] gm/dL LABORATORY SERVICES RDW-CV 16.5 (H) <14.2 % [facility] LABORATORY SERVICES RDW-SD 53.1 (H) <46.0 fl [facility] LABORATORY SERVICES PLT 286 141 - 377 [facility] MPV 12.1 9.5 - 12.7 fl [facility] LABORATORY SERVICES Neutrophils 73.4 % [facility] LABORATORY SERVICES Lymphocytes 17.6 % [facility] LABOR[facility]ORY SERVICES Monocytes 8.0 % [facility] LABORATORY SERVICES Eosinophils 0.0 % [facility] LABORATORY SERVICES Basophils 0.5 % [facility] LABORATORY SERVICES Immature Grans 0.5 % [facility] LABORATORY SERVICES Absolute Neutrophils 5.94 2.20 - 8.85 [facility] Kcounts include 234 beds at the [facility] LABORATORY SERVICES Absolute Lymphocytes 1.42 1.09 - 3.30 [facility] LABORATORY SERVICES Absolute Monocytes 0.65 0.10 - 0.80 [facility] LABORATORY SERVICES Absolute Eosinophils 0.00 (L) 0.03 - 0.61 [facility] LABORATORY SERVICES Absolute Basophils 0.04 0.01 - 0.11 [facility] LABORATORY SERVICES Absolute Immature 0.04 0.00 - 0.06 [facility] Grans [facility] LABORATORY SERVICES Type of Differential: Auto [facility] LABORATORY SERVICES Specimen Blood - Venous blood (substance) Performing Organization Address City/State/ZIP Code Phon e Number [facility] [address] [place] [address] SERVICES documented in this encounter Visit Diagnoses Diagnosis Polycythemia vera (HCC) documented in this encounter Care Teams Finish Repairer Relationship Specialty Start Date End Date Layne Cai MD PCP - General 04/05/[address] [place] [phone] Claire Lopez NP Cardiovascular Disease 11/22/20 130 [facility] [address] [place] [address] Tod Perez NP Rheumatology 12/28/20 111 [facility], [facility] 5 [place] [address] documented as of this encounter
--- OUTSIDE RECORDS SUMMARY | 2021-12-21 01:19 | XMS_ITS | Encounter Summary ---
:1945 Author Organization [facility] Address [address] [place] [address] Care Team Providers Name Role Phone Layne Cai MD Primary Care Provider Claire Lopez NP Unavailable Tod Perez TIN STACKER Unavailable Reason for Visit Reason Comments Other Encounter Details Date Type Department Care Team Description 11/07/2021 Refill [facility] Cancer Center Hematology Renate José, TIN STACKER Other & Oncology - [facility] 111 [facility] 111 [place] [address] [place], [place] [phone] (Wo rk) Social History Tobacco Use Types [...] making decisions? documented as of this encounter Ordered Prescriptions Prescription Sig Dispensed Refills Start Date End Date hydroxyurea (HYDREA) 500 TAKE 1 CAPSULE BY 90 capsule 1 10/1511/11/2021 mg capsule MOUTH DAILY documented in this encounter Plan of Treatment Upcoming Encounters Date Type Specialty Care Team Description 12/27/2021 Office Visit Hematology and Erin Barillas M D Oncology [address] [place] [phone] (Wo rk) 02/14/2022 Office Visit Hematology and Erin Barillas M D Oncology [address] [phone] (Wo rk) 04/25/2022 Ancillary Procedure Cardiology 04/25/2022 Office Visit Cardiology Claire Lopez NP [address] [place] [phone] (Wo rk) 05/13/2022 Office Visit Rheumatology Tod Perez NP [address] [phone] (Wo rk) documented as of this encounter Visit Diagnoses Not on filedocumented in this encounter Discontinued Medications Medication Sig Discontinue Reason Start Date End Date hydroxyurea (HYDREA) 500 Take one tablet by 05/14/2021 11/08/2021 mg capsule mouth daily. documented as of this encounter Care Teams Head Kiln Operator Relationship Specialty Start Date End Date Layne Cai MD PCP - General 04/05/[address] [place] [phone] Claire Lopez NP Cardiovascular Disease 11/22/20 130 [facility] 2[address] [place] [phone] Tod Perez NP Rheumatology 12/28/20 111 [facility], [address] [place] [phone] documented as of this encounter
--- OUTSIDE RECORDS SUMMARY | 2021-12-21 01:19 | XMS_ITS | Encounter Summary ---
:1945 Author Organization [facility] Address [address] [place] [address] Care Team Providers Name Role Phone Layne Cai MD Primary Care Provider Claire Lopez BIOFUELS PRODUCTION ASSOCIATE Unavailable Tod Perez BIOFUELS PRODUCTION ASSOCIATE Unavailable Encounter Details Date Type Department Care Team Description 05/03/2021 Orders Only [facility] Cancer Center Rehan Bearden ([facility]) Hematology & Oncology TRAM Diop (Prim augustine Dx) - [facility] [place] [address] [place] [address] Social History Tobacco Use Types Packs/Day Years [...] of a physical, mental, or emotional condition, Yes 12/28/2020 does this person have difficulty doing errands [...] Hematology and Erin Barillas M D Oncology [address] [place] [phone] (Wo rk) 02/14/2022 Office Visit Hematology and Erin Barillas M D Oncology [address] [place] [phone] (Wo rk) 04/25/2022 Ancillary Procedure Cardiology 04/25/2022 Office Visit Cardiology Claire Lopez NP [address] [place] [phone] (Wo rk) 05/13/2022 Office Visit Rheumatology Tod Perez NP [address] [place] [phone] (Wo rk) documented as of this encounter Visit Diagnoses Diagnosis Polycythemia vera (HCC) - Primary documented in this encounter Orders Nursing Count Last Ordered Date First Ordered Date NURSING COMMUNICATION 1 05/03/2021 documented in this encounter Care Teams Bakery Demonstrator Relationship Specialty Start Date End Date Layne Cai MD PCP - General 04/05/[address] [place] [phone] Claire Lopez NP Cardiovascular Disease 11/22/20 130 [facility] [address] [phone] Tod Perez NP Rheumatology 12/28/[address] [place], [place] [address]on, [address] [place] [address] documented as of this encounter
--- OUTSIDE RECORDS SUMMARY | 2021-12-21 01:19 | XMS_ITS | Encounter Summary ---
:1945 Author Organization [facility] Address [address] [place] [address] Care Team Providers Name Role Phone Layne Cai MD Primary Care Provider Claire Lopez NP Unavailable Tod Perez GLASS RIBBON MACHINE OPERATOR ASSISTANT Unavailable Reason for Referral Laboratory Services (Routine/Next Available) - New Request Specialty Diagnoses / Procedures Referred By Contact Refer red To Contact Diagnoses Inflammatory arthritis Encounter for vitamin deficiency screening Tod Perez NP Procedures COMPREHENSIVE METABOLIC PANEL (CMP) [address] [phone] Referral ID Status Reason Start Date Expiration Date Visits V isits Requested Authorized [id number] New Request 12/18/2021 1 1 aboratory Services (Routine/Next Available) - New Request Specialty Diagnoses / Procedures Referred By Contact Refer red To Contact Diagnoses Inflammatory arthritis Encounter for vitamin deficiency screening Tod Perez NP Procedures COMPLETE BLOOD COUNT AND DIFFERENTIAL [address] [phone] Referral ID Status Reason Start Date Expiration Date Visits V isits Requested Authorized [id number] New Request 12/18/2021 1 1 Reason for Visit Reason Comments Follow-up inflammatory arthritis, dexa scan results, lab work results (no response) Encounter Details Date Type Department Care Team Description 12/18/2021 Office Visit [facility] Tod Perez In flammatory arthritis (Primary Dx); Rheumatology & GLASS RIBBON MACHINE OPERATOR ASSISTANT En[place] [facility] [place] [address] [place] [address] [address], [place] [phone] (Wo rk) Social History Tobacco Use Types [...] Sign Reading Time Taken Comments Blood Pressure 121/74 12/18/2021 0958 EDT Pulse - - Temperature - - Respiratory Rate - - Oxygen Saturation - - Inhaled Oxygen Concentration - - Weight 102.1 kg (225 lb) 12/18/2021 0958 EDT Height 181 cm (5' 11.26) 12/18/2021 0958 EDT Body Mass Index 31.15 12/18/2021 0958 EDT documented in this encounter Functional Status Functional [...] making decisions? documented as of this encounter Patient Instructions Patient InstructionsTod Perez NP - 12/18/2021 10:00 EDT 1. Continue current meds. 2. Labs every 3-4 months 3. If you get covid, stop sulfasalzine and call the clinic for treatment 4. Per CDC guidelines recommend covid #4, 3 months after #3 Hold sulfasalazine 1-2 weeks , after each vaccine, then restart. Optional 5th covid vaccine per CDC, 4 months after #4 5. Recommend 1200-1500mg of calcium daily between diet and supplements. Dietary calcium is better absorbed and if taking supplements they should be spread out to twice daily dosing. One serving of dietary calcium is about 300mg = 1 glass of milk, 1 6-8oz yogurt or 1 slice or 1 inch of cheese. 6. Will check vit D on next labs F/u 5-6 months in person documented in this encounter Progress Notes Tod Perez NP - 12/18/2021 1000 EDT Images from the original note were not included. Patient ID: Deon Villanueva is a 76 y.o. y.o. male Subjective: Chief Complaint: Follow-up (inflammatory arthritis, dexa scan results, lab work results (no response)) HPI: ?? Pertinent Rheumatological History: 1. Seronegative inflammatory arthritis - On MTX 20 mg orally weekly with folic acid 1 mg orally daily - Will Reduce MTX to 17.5 mg orally weekly x 4 weeks then 15 mg orally weekly - Previously treated with hydroxychloroquine. ?? 2. Degenerative disc disease ?? 3. Rosacea - treated with Soolantra 4. Polycythemia vera ?? Previously followed with [facility] ?? Chief Complaint Patient presents with ??? Joint Pain ? neck and shoulders ??? Medications Refill ??? Labs Only ? SUBJECTIVE: Mr. Deon Villanueva is a 76 y.o. male with history of seronegative inflammatory polyarthritis and degenerative disc disease who presents today for a follow-up visit. ?? 04/03/2021 Alecia Saavedra at [facility] is concerned for MTX ILD/fibrosis. Reviewed that MTX resolved his hand swelling, but will try him on SSZ, alt arava. I would prefer to avoid biologics as he has been so MTX responsive. 03/27/21 ECHO EF 55-60%, aortic valve sclerotic with mild to moderate aortic regurgitation, mild mitral annual calcification, trace mitral regurgitation, trace triscupid regurgitation, IVC could not beassessed d/t poor imaging quality. All other structures normal. 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 Tellez ordered sleep study- neg for Sleep apnea, SOB has resolved CT findings had improved, F/u CT and PFTs 1 year- if good, might D/c pt. [facility] - osteopenia, no compression fractures Seeing hematology for polycethenia Denies any other joint pains or swelling. AM stiffness: Some Physical activity: Walks 2 miles per day Patient Active Problem List Diagnosis ??? Chest pain ??? Light headed ??? Sick sinus syndrome (HCC-CMS) ([facility]) ??? Pacemaker ??? Sleep apnea ??? Hypertension ??? GERD (gastroesophageal reflux disease) ??? Hypercholesteremia ??? Enlarged prostate ??? Left hand weakness ??? History of seronegative inflammatory arthritis ??? Facial rash ??? Exertional chest pain ??? Coronary artery disease involving [place] indians[place] division coronary artery of [place] heart without angina pectoris ??? PV (polycythemia vera) (HCC-CMS) ([facility]) Past Medical History: Diagnosis Date ??? Arthritis ??? Biliary colic ??? Cataract bilateral ??? Enlarged prostate ??? GERD (gastroesophageal reflux disease) ??? 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 Hypercholesteremia ??? Hypertension ??? Inguinal hernia bilateral ??? Pacemaker ??? Sleep apnea weaing cpap Past Surgical History: Procedure Laterality Date ??? CARDIAC PACEMAKER PLACEMENT ??? CATARACT REMOVAL bilateral ??? CHOLECYSTECTOMY 2005 ??? EYE SURGERY ??? HERNIA REPAIR Allergies Allergen Reactions ??? Lisinopril Causes chest pain. ? Myocardial bridging ??? 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 aspirin 81 mg EC tablet ??? finasteride (PROSCAR) 5 mg tablet ??? hydroxyurea (HYDREA) 500 mg capsule ??? metoprolol XL (TOPROL-XL) 25 mg tablet ??? metroNIDAZOLE (METROGEL) 0.75 % gel ??? omeprazole (PRILOSEC) 40 mg capsule ??? simvastatin (ZOCOR) 40 mg tablet ??? sulfaSALAzine (AZULFIDINE) 500 mg tablet No current facility-administered medications for this visit. ROS - SEE HPI I reviewed the 10 point ROS performed by the nurse which is as documented in Prism. Objective: BP 121/74 (BP Cuff Location: Left arm, BP Patient Position: Sitting, BP Cuff Sizes: Adult, regular) Ht 181 cm (71.26) Wt (!) 102.1 kg (225 lb) BMI 31.15 kg/m?? General: No acute distress. Alert, fully oriented, pleasant, conversant. HEENT: Conjunctivae/corneas clear. Pupils equal, Sclerae anicteric. Mucus membranes moist; oropharynx clear. Neck supple, symmetrical, trachea midline maxillary sinus tender to palpation bilaterally Lungs: Clear to auscultation bilaterally. Cough present Heart: Regular rate and rhythm, S1, S2 present, no murmur Abdomen: Soft, non-tender, non-distended. Extremities: Extremities without cyanosis, 2 + edema bilateral legs Skin: clear Musculoskeletal: Spine: No significant tenderness. Normal range of motion of the spine. Shoulder/Elbow: No significant tenderness, swelling, effusions, erythema or warmth is present. Appropriate range of motion present. Wrist/Hand: thickened wrists bilaterally, full ROM without any discomfort. No significant tenderness, swelling, effusions, erythema or warmth is present. Appropriate range ofmotion present. Hips/Knee: No significant tenderness, or erythema or warmth is present. Appropriate range of motion present. Ankle/Foot: no, hard to palpate 2-5 MTP but I think this is due to edema some OA, with cock ups, no significant tenderness, swelling, effusions, erythema or warmth is present. Appropriate range of motion present. LABS: Results for DEON VILLANUEVA ( ) as of 12/18/2021 07:57 Ref. Range 11/05/2021 00:00 Sodium, External Unknown 140 Potassium, External Unknown 4.9 Chloride, External Unknown 106 CO2, External Unknown 26.3 BUN, External Unknown 23 Creatinine, External Unknown 1.3 GFR, Calculated, External Unknown 53.39 Glucose, Serum, External Unknown 128 Magnesium, External Unknown 2.5 Total Protein, External Unknown 7.1 Albumin, External Unknown 4.2 ALT, External Unknown 19 AST, External Unknown 15 Bilirubin, Total, External Unknown 0.5 Alkaline Phosphatase, External Unknown 97 Calcium, External Unknown 8.9 WBC, External Unknown 8.60 RBC, External Unknown 5.72 Hemoglobin, External Unknown 13.0 HCT, External Unknown 46.0 MCH, External Unknown 22.7 MCV, External Unknown 80 MCHC, External Unknown 28.3 RDW-CV, External Unknown 18.3 PLT, External Unknown 291 ABS Neutrophils, External Unknown 6.33 Neutrophils, External Unknown 73.6 Lymphocytes, External Unknown 17.2 Eosinophils, External Unknown 0.0 Basophils, External Unknown 0.8 ABS Lymphs, External Unknown 1.48 ABS Monocytes, External Unknown 0.67 ABS Eosinophils, External Unknown 0.00 ABS Basophils, External Unknown 0.07 Monocytes, External Unknown 7.8 Results: SURGICAL PATHOLOGY Status: Final result (Collected: 10/23/2016 18:29) ?? SURGICAL PATHOLOGY Status: Final result ?Visible to patient: Yes ([employer]) Next appt: 05/25/2018 at 11:40 inRheumatology (Sudhir Rosales MD) Order: [id number] ? 1yr ago ?? Pathology Report: SURGICAL PATHOLOGY REPORT Reports generated via electronic interface contain original data; however they are lacking the format of the original report. Caution should be taken when reading/interpreting unformatted reports. Name: ? DEON VILLANUEVA ? Accession #: ? [id number] ? : ? 1945 (Age: 71) ??M ?Collect Date: ? 10/23/2016 ? Location: ? [facility] ? Receive Date: ? 10/24/2016 ? Provider: SHREYA LEA MD Copy to: MINDY SZYMANSKI [employer] ? Final Pathologic Diagnosis: A. ??GASTROESOPHAGEAL JUNCITON, BIOPSY: - Squamocolumnar junctional mucosa with reflux esophagitis. - Negative for intestinal metaplasia; Negative for dysplasia. B. ??STOMACH, ANTRUM, BIOPSY: - Fundic gland polyp. - Negative for histologic features of Helicobacter pylori. Document reviewed and electronically signed by: JACOBO RODRIGUES MD Report ??Date: 10/25/2016 16:35 By the signature above, the attending physician certifies that he/she has personally conducted a gross and/or microscopic examination of the described specimens and rendered or confirmed the above diagnosis. Specimen(s) Received: A. ??GE junction bx B. ??Antral bx for H. pylori Clinical History: Hx of Clark's esophagus ?? Gross Description: A. ?Received in formalin labelled with proper patient identification (initials C, J) and #1 GE junction bx are two light martínez tissues (0.2 x 0.2 x 0.1 cm and 0.5 x 0.2 x 0.1 cm). Entirely submitted in A1. B. ?Received in formalin labelled with proper patient identification (initials C, J) and #2 antral bx for H. pylori is a single light yellow-brown tissue fragment (0.4 x 0.2 x 0.1 cm). Submitted intact in B1. Ann Moscoso 10/25/2016 7:55 AM ?? Results: SURGICAL PATHOLOGY Status: Final result (Collected: 10/23/2016 18:29) ?? SURGICAL PATHOLOGY Status: Final result ?Visible to patient: Yes ([employer]) Next appt: 05/25/2018 at 11:40 inRheumatology (Sudhir Rosales MD) Order: [id number] ? 1yr ago ?? Pathology Report: SURGICAL PATHOLOGY REPORT Reports generated via electronic interface contain original data; however they are lacking the format of the original report. Caution should be taken when reading/interpreting unformatted reports. Name: ? DEON VILLANUEVA ? Accession #: ? [id number] ? : ? 1945 (Age: 71) ??M ?Collect Date: ? 10/23/2016 ? Location: ? [facility] ? Receive Date: ? 10/24/2016 ? Provider: SHREYA LEA MD Copy to: MINDY SZYMANSKI [facility] ? Final Pathologic Diagnosis: A. ??GASTROESOPHAGEAL JUNCITON, BIOPSY: - Squamocolumnar junctional mucosa with reflux esophagitis. - Negative for intestinal metaplasia; Negative for dysplasia. B. ??STOMACH, ANTRUM, BIOPSY: - Fundic gland polyp. - Negative for histologic features of Helicobacter pylori. Document reviewed and electronically signed by: JACOBO RODRIGUES MD Report ??Date: 10/25/2016 16:35 By the signature above, the attending physician certifies that he/she has personally conducted a gross and/or microscopic examination of the described specimens and rendered or confirmed the above diagnosis. Specimen(s) Received: A. ??GE junction bx B. ??Antral bx for H. pylori Clinical History: Hx of Clark's esophagus ?? Gross Description: A. ?Received in formalin labelled with proper patient identification (initials C, J) and #1 GE junction bx are two light martínez tissues (0.2 x 0.2 x 0.1 cm and 0.5 x 0.2 x 0.1 cm). Entirely submitted in A1. B. ?Received in formalin labelled with proper patient identification (initials C, J) and #2 antral bx for H. pylori is a single light yellow-brown tissue fragment (0.4 x 0.2 x 0.1 cm). Submitted intact in B1. Mihrab Ali 10/25/2016 7:55 AM ?XR CHEST 2 VIEWS (Order [id number]) Status: Final result (Exam End: 05/19/2020 16:15) Results XR CHEST 2 VIEWS ( (Order [id number]) XR CHEST 2 VIEWS Order: [id number] Status: Final result ?Visible to patient: Yes (MyChart) Next appt: None Details Reading Physician Reading Date Result Priority Dustin Ibrahim MD [phone] 05/19/2020 Narrative & Impression EXAM: RADIOLOGY/CHEST PA LAT EX. D/ (1542) CLINICAL INFORMATION: Z95.0 PACEMAKER PLACEMENT PRIOR TO GENERATOR CHANGE INDICATION: Z95.0 PACEMAKER PLACEMENT PRIOR TO GENERATOR, CHANGE. COMPARISON: None. TECHNIQUE: 2 views of the chest were obtained. FINDINGS: A single lead cardiac pacer is present with the lead tip superimposed over the right atrium. The cardiomediastinal silhouette and pulmonary vasculature are within normal limits. The lungs are clear. No pleural effusion or pneumothorax. Degenerative changes of aging throughout the thoracic spine. IMPRESSION: 1. Osteopenia. 2. Single lead cardiac pacer with lead tip superimposed over the right atrium. REPORT SIGNED IN OTHER VENDOR SYSTEM 05/19/2020 Reported By: Dustin Ibrahim MD XR CHEST 2 VIEWS (Order [id number]) Status: Final result (Exam End: 11/09/2020 16:33) Results XR CHEST 2 VIEWS ( (Order [id number]) XR CHEST 2 VIEWS Order: [id number] Status: Final result ?Visible to patient: Yes (seen) Next appt: 01/22/2021 at 10:45 in Cardiology(Claire Lopez, AUTO BUMPER STRAIGHTENER) 0 Result Notes Details Reading Physician Reading Date Result Priority Gerald Garcia MD [phone] 11/09/2020 Narrative & Impression EXAM: RADIOLOGY/CHEST PA LAT EX. D/ (6227) CLINICAL INFORMATION: SOB/cp PROCEDURE INFORMATION: Exam: XR Chest Exam date and time: 11/09/2020 4:01 PM Age: 75 years old Clinical indication: Pain; Other: Cp; Additional info: Sob/cp TECHNIQUE: Imaging protocol: XR of the chest. Views: 2 views. COMPARISON: CR (CHEST, CHEST PA) 05/19/2020 3:25 PM FINDINGS: Tubes, catheters and devices: Pacemaker. Lungs: Hyperinflation, interstitial prominence, and trace basilar airspace disease. Pleural spaces: No significant pleural effusion. Heart/Mediastinum: No cardiomegaly. Vasculature: Calcification of the thoracic aorta. Bones/joints: Degenerative change. IMPRESSION: 1. Hyperinflation, interstitial prominence, and trace basilar airspace disease. 2. Additional findings as described above. REPORT SIGNED IN OTHER VENDOR SYSTEM 11/09/2020 Reported By: Gerald CAMPBELL Summary Functional Status: 0.3 Pain Tolerance: 2 Global Estimate: 2 Score: 4.3 Interpretation: Low ASSESSMENT: 1.Inflammator arthritis doing well, no flares on SZZ 500mg BID started around 02/2021. Continue current meds. 2. 03/27/21 ECHO EF 55-60%, aortic valve sclerotic with mild to moderate aortic regurgitation, mild mitral annual calcification, trace mitral regurgitation, trace triscupid regurgitation, IVC could notbe assessed d/t poor imaging quality. All other structures normal. 3. Previously Dr. Alecia Calderon, at [facility] was concerned for MTX ILD/fibrosis. MTX d/'c'd for this reason. Pt's states SOB has resolved, and CT findings had improved. Sleep apnea resolved on recent sleep study. F/u CT and PFTs 1 year- if good, Pulm might D/c PT. 3. Labs every 3-4 months Given ext labs for [place] and for [facility]. 4. Polycythemia vera -followed by Dr. Barillas Hematology/Oncology On hydrea and aspirin 81mg. Not needing phlebotomy at this time as CBC and abs neutrophils normalized - 12/28/2020 doing well 5. moderna #1 and #2 and #3 6. HD flu 2020 complete 7. DXA at [facility]- osteopenia- neg for spinal fx. Reviewed calcium and vit D recommendations. Vit D lab added to next labs Will order DXA as he is >70 and most recent fx 9 dependent edema 2+ has been taking a break from his compression stockings- 2/2 increased restless leg - drinking pick juice per his PCP for restless leg, feels like it has helped some 10 recommend shingrix No diagnosis found. PLAN: 1. Continue current meds. 2. Labs every 3-4 months 3. If you get covid, stop sulfasalzine and call the clinic for treatment 4. Per CDC guidelines recommend covid #4, 3 months after #3 Hold sulfasalazine 1-2 weeks , after each vaccine, then restart. Optional 5th covid vaccine per CDC, 4 months after #4 5. Recommend 1200-1500mg of calcium daily between diet and supplements. Dietary calcium is better absorbed and if taking supplements they should be spread out to twice daily dosing. One serving of dietary calcium is about 300mg = 1 glass of milk, 1 6-8oz yogurt or 1 slice or 1 inch of cheese. 6. Will check vit D on next labs F/u 5-6 months in person No diagnosis found. No orders of the defined types were placed in this encounter. Barriers to learning identified: No Patient verbalizes understanding and agrees with plan Yes I was directly supervised by: Dr. Warner They were present in clinic and available for consult if needed. Tod Perez NP 12/18/2021 10:16 I spent a total of 30 minutes on the date of this encounter meeting with the patient and reviewing documentation/coordinating care as described in the above note. No procedures were performed at the time of the visit. documented in this encounter Plan of Treatment Upcoming Encounters Date Type Specialty Care Team Description 12/27/2021 Office Visit Hematology and Erin Barillas M D Oncology [address] [place] [address] [address] [place] [address] (Wo rk) 02/14/2022 Office Visit Hematology and Erin Barillas M D Oncology [address] [facility] 2 [place] [address] (Wo rk) 04/25/2022 Ancillary Procedure Cardiology 04/25/2022 Office Visit Cardiology Claire Lopez NP [facility] [address] [phone] (Wo rk) 05/13/2022 Office Visit Rheumatology Tod Perez NP [address] [phone] (Wo rk) Scheduled Orders Name Type Priority Associated Diagnoses Order S chedule VITAMIN D (25,OH) Lab Routine Inflammatory a rthritis Expected: 12/18/2021 Encounter for vitamin (Appro ximate), deficiency screening Expires : 12/18/2022 COMPLETE BLOOD COUNT AND Lab Routine Inflamm atory arthritis every 3-4 months for 4 DIFFERENTIAL Encounter for vitamin Occurr ences starting deficiency screening 022 until 12/18/2022 COMPREHENSIVE METABOLIC Lab Routine Inflamma tory arthritis every 3-4 months for 4 PANEL (CMP) Encounter for vitamin Occurr ences starting deficiency screening 022 until 12/18/2022 documented as of this encounter Visit Diagnoses Diagnosis Inflammatory arthritis - Primary Unspecified inflammatory polyarthropathy Encounter for vitamin deficiency screeni ng Screening for other and unspecified endo crine, nutritional, metabolic, and immunity disorders documented in this encounter Care Teams Engineer Process Relationship Specialty Start Date End Date Layne Cai MD PCP - General 04/05/[address] [place] [phone] Claire Lopez NP Cardiovascular Disease 11/22/20 [address] [facility] [address] [place] [address] Tod Perez NP Rheumatology 12/28/[address] [place] [address], [address] [place] [address] documented as of this encounter
--- OUTSIDE RECORDS SUMMARY | 2021-12-21 01:19 | XMS_ITS | Encounter Summary ---
:1945 Author Organization [facility] Address [address] [place] [address] Care Team Providers Name Role Phone Layne Cai MD Primary Care Provider Claire Lopez SOCIETY REPORTER Unavailable Tod Perez SOCIETY REPORTER Unavailable Encounter Details Date Type Department Care Team Description 11/16/2021 Orders Only [facility] Hematology Andrea Peters, TRAM & Oncology - Main [facility] [address] [place] [address] Social History Tobacco Use Types [...] making decisions? documented as of this encounter Progress Notes Almita Peters RN - 11/16/2021 1536 EDT Called [place], left message requesting they send us any needed paper orders for TP. Left PAC# and our fax #. documented in this encounter Plan of Treatment Upcoming Encounters Date Type Specialty Care Team Description 12/27/2021 Office Visit Hematology and Erin Barillas M D Oncology [address] [phone] (Wo rk) 02/14/2022 Office Visit Hematology and Erin Barillas M D Oncology [address] [phone] (Wo rk) 04/25/2022 Ancillary Procedure Cardiology 04/25/2022 Office Visit Cardiology Claire Lopez NP [address] [place] [address] [phone] (Wo rk) 05/13/2022 Office Visit Rheumatology Tod Perez NP [address] [phone] (Wo rk) documented as of this encounter Visit Diagnoses Not on filedocumented in this encounter Care Teams Sole Stainer Relationship Specialty Start Date End Date Layne Cai MD PCP - General 04/05/[address] [place] [phone] Claire Lopez NP Cardiovascular Disease 11/22/20 130 [facility] [address] [phone] Tod Perez NP Rheumatology 12/28/[address] [place] [address], [address] [place] [phone] documented as of this encounter
--- OUTSIDE RECORDS SUMMARY | 2021-12-21 01:19 | XMS_ITS | Encounter Summary ---
:1945 Author Organization [facility] Address [address] [place] [address] Care Team Providers Name Role Phone Layne Cai MD Primary Care Provider Claire Lopez NP Unavailable Tod Perez HORSE TRAINER Unavailable Encounter Details Date Type Department Care Team Description 06/25/2021 Abstract [facility] Juanjose Perez NP Rheumatology & Immunology - 111 [facility], [address], [address] [place], [place] [phone] [place] [phone] (Wo rk) Social History Tobacco Use [...] and Erin Barillas M D Oncology [address] [phone] (Wo rk) 02/14/2022 Office Visit Hematology and Erin Barillas M D Oncology [address] [place] [phone] (Wo rk) 04/25/2022 Ancillary Procedure Cardiology 04/25/2022 Office Visit Cardiology Claire Lopez , FETSUS 130 [facility] [address] [phone] (Wo rk) 05/13/2022 Office Visit Rheumatology Tod Perez NP [address] [phone] (Wo rk) documented as of this encounter Procedures Procedure Name Priority Date/Time Associated Diagnosis Comme nts COMPREHENSIVE METABOLIC Routine 06/22/2021 Resu lts for this PANEL (CMP) procedure are i n the results section . documented in this encounter Results COMPREHENSIVE METABOLIC PANEL (CMP) (06/22/2021) Pathologist Sig nature GFR, Calculated, 58.71 [facility] External Glucose, Serum, 124Comment: [facility] External high Albumin, External 4.0 [facility] Total Alkaline 118Comment: [facility] Phosphatase, high External ALT, External 24 [facility] AST, External 15 [facility] BUN, External 20Comment: high [facility] Calculated Calcium, [facility] External Calcium, External 8.7 [facility] Chloride, External 104 [facility] CO2, External 27.9 [facility] Creatinine, External 1.2 [facility] Fasting?, External [facility] Potassium, External 4.5 [facility] Sodium, External 140 [facility] Total Protein, 7.0 [facility] External Bilirubin, Total, 0.4 [facility] External Specimen Blood - Venous blood (substance) Performing Organization Address City/State/ZIP Code Phon e Number [facility] documented in this encounter Visit Diagnoses Not on filedocumented in this encounter Care Teams Snowblower Mechanic Relationship Specialty Start Date End Date Layne Cai MD PCP - General 04/05/20 26 [place] [phone] Claire Lopez NP Cardiovascular Disease 11/22/20 130 [facility] 21 [place] [phone] Tod Perez NP Rheumatology 12/28/20 111 [facility], Level 5 [place] [phone] documented as of this encounter
--- OUTSIDE RECORDS SUMMARY | 2021-12-21 01:19 | XMS_ITS | Encounter Summary ---
:1945 Author Organization [facility] Address [address] [place] [address] Care Team Providers Name Role Phone Layne Cai MD Primary Care Provider Claire Lopez DIRECTOR ONLINE MARKETING Unavailable Tod Perez DIRECTOR ONLINE MARKETING Unavailable Reason for Referral Prior Authorization (See Order Priority) - Authorized Specialty Diagnoses / Procedures Referred By Contact Refer red To Contact Infusion Therapy Diagnoses Polycythemia vera (HCC) Reshma Hilario, DIRECTOR ONLINE MARKETING [facility] [address] [place] [address] [facility], Level 2 [place], [place] Fax: [phone] Referral ID Status Reason Start Expiration Visits Visits Date Date Requested Authorized [id number] Authorized Specialty 06/15/2032 1 1 Services 1 [...] do earlier or after that appointment please) Encounter Details Date Type Department Care Team Description 06/14/2021 Orders Only [facility] Norah Vedruzco Polycyth emia vera ([facility]) Hematology & mental retardation nurse (Gladis Webb) - [address] [address] Social History Tobacco Use Types Packs/Day [...] documented as of this encounter Progress Notes Norah Verduzco RN - 06/14/2021 0851 EST [id number] placed for therapeutic phlebotomy needed on 06/19/21 documented in this encounter Plan of Treatment Upcoming Encounters Date Type Specialty Care Team Description 12/27/2021 Office Visit Hematology and Erin Barillas M D Oncology [address] [place] [address], [address] [place] [phone] (Wo rk) 02/14/2022 Office Visit Hematology and Erin Barillas M D Oncology 111 [facility] 2 [place] [phone] (Wo rk) 04/25/2022 Ancillary Procedure Cardiology 04/25/2022 Office Visit Cardiology Claire Lopez NP [address] [place] [phone] (Wo rk) 05/13/2022 Office Visit Rheumatology Tod Perez NP 111 [facility] 5 [place] [phone] (Wo rk) Scheduled Referrals Name Type Priority Associated Diagnoses Order S chedule AMB CONS/FOLLOW Outpatient Referral STAT Polycythemia vera (HCC) Expected: UP (SHEP 4 06/14/2021 INFUSIONS) (Approximate), Expires: 06/14/2022 documented as of this encounter Visit Diagnoses Diagnosis Polycythemia vera (HCC) - Primary documented in this encounter Care Teams Merry Go Round Attendant Relationship Specialty Start Date End Date Layne Cai MD PCP - General 04/05/[address] [place] [phone] Claire Lopez NP Cardiovascular Disease 11/22/[address] [place] [address], [place] [phone] Tod Perez NP Rheumatology 12/28/[address] [place] [phone] documented as of this encounter
--- OUTSIDE RECORDS SUMMARY | 2021-12-21 01:19 | XMS_ITS | Encounter Summary ---
:1945 Author Organization [facility] Address [address] [place] [address] Care Team Providers Name Role Phone Layne Cai MD Primary Care Provider Claire Lopez REGULATORY SUBMISSIONS ASSOCIATE Unavailable Tod ePrez REGULATORY SUBMISSIONS ASSOCIATE Unavailable Reason for Visit Reason Onset Date Comments Appointment Related 09/27/2021 Encounter Details Date Type Department Care Team Description 09/27/2021 Telephone [facility] Cancer Center Rochelle Hilario NP Appointment Related Hematology & Oncology [address] [place], [place] [address] [place] [address] [phone] (Wo rk) Social History Tobacco Use [...] this encounter Miscellaneous Notes Telephone Encounter - Kristi Adrian - 09/27/2021 1523 EDT Patient's Augustina called regarding patient's appointment and blurb writer informed it was rescheduled for 10/04 at 13:00. Augustina confirmed this time works. Please send new zoom link to patient. documented in this encounter Plan of Treatment Upcoming Encounters Date Type Specialty Care Team Description 12/27/2021 Office Visit Hematology and Erin Barillas M D Oncology [address] [phone] (Wo rk) 02/14/2022 Office Visit Hematology and Erin Barillas M D Oncology [address] [phone] (Wo rk) 04/25/2022 Ancillary Procedure Cardiology 04/25/2022 Office Visit Cardiology Claire Lopez NP [address] [phone] (Wo rk) 05/13/2022 Office Visit Rheumatology Tod Perez NP [address] [phone] (Wo rk) documented as of this encounter Visit Diagnoses Not on filedocumented in this encounter Care Teams Nurse Practical Relationship Specialty Start Date End Date Layne Cai MD PCP - General 04/05/20 26 [place] [phone] Claire Lopez NP Cardiovascular Disease 11/22/[address] [phone] Tod Perez NP Rheumatology 12/28/20 111 [facility], Level 5 [place] [phone] documented as of this encounter
--- OUTSIDE RECORDS SUMMARY | 2021-12-21 01:19 | XMS_ITS | Encounter Summary ---
:1945 Author Organization [facility] Address [address] [place] [address] Care Team Providers Name Role Phone Layne Cai MD Primary Care Provider Claire Lopez RESOURCE AGENT Unavailable Tod Perez RESOURCE AGENT Unavailable Encounter Details Date Type Department Care Team Description 06/07/2021 Orders Only [facility] - Rebeka Bell RN Sin us node dysfunction [facility] [place] [place] Cardiology Clin ic ([facility]) (HCC) [address] (Primary Dx) [place] [address] Social History Tobacco Use Types Packs/Day Years [...] Hematology and Erin Barillas M D Oncology [address] [place] [address] 2 [place] [phone] (Wo rk) 02/14/2022 Office Visit Hematology and Erin Barillas M D Oncology [address] [place] [phone] (Wo rk) 04/25/2022 Ancillary Procedure Cardiology 04/25/2022 Office Visit Cardiology Claire Lopez NP [address] [place] [address] [phone] (Wo rk) 05/13/2022 Office Visit Rheumatology Tod Perez NP [address] [place] [address], [facility] 5 [place] [phone] (Wo rk) documented as of this encounter Visit Diagnoses Diagnosis Sinus node dysfunction (HCC-CMS) (HCC) - Primary Sinoatrial node dysfunction documented in this encounter Orders Implantable Cardiac Device Count Last Ordered Date Fir st Ordered Date CARDIAC IMPLANT CHECK - REMOTE MONITOR 1 documented in this encounter Care Teams Print Developer Automatic Relationship Specialty Start Date End Date Layne Cai MD PCP - General 04/05/[address] [place] [phone] Claire Lopez NP Cardiovascular Disease 11/22/[address] [place] [address] [address] [place] [phone] Tod Perez NP Rheumatology 12/28/20 111 [facility], Level 5 [place] [phone] documented as of this encounter
--- OUTSIDE RECORDS SUMMARY | 2021-12-21 01:19 | XMS_ITS | Encounter Summary ---
:[address] [facility] Address [address] [place] [address] Care Team Providers Name Role Phone Layne Cai MD Primary Care Provider Claire Lopez JAVA DESIGNER Unavailable Tod Perez JAVA DESIGNER Unavailable Reason for Visit Reason Onset Date Comments Appointment Related 05/04/2021 Encounter Details Date Type Department Care Team Description 05/04/2021 Telephone [facility] Erin Barillas MD Appointment Related Ambulatory Infusion 111 [facility], [address] 2 [place], [place] [address] [place] [phone] (Wo rk) Social History Tobacco Use Types [...] this encounter Miscellaneous Notes Telephone Encounter - Robina Mendiola - 05/04/2021 1251 EST Screening Questions prior to Med Release 1. Do you have a fever or have had a fever of 100.4 degrees F. in the last 24 hours? No 2. Are you taking any medication for a recent infection? No 3. Have you had a recent illness, or changes in your health since your last infusion? If so, is yourordering provider aware? No 4. Have you had a recent COVID vaccination or have one scheduled? If so, does your ordering provideraware? Booster, 3 wks ago 5. (for Remicade, Entyvio, Renflexis, Rituximab, Ocrevus, pts, 'mab' patients) Have you had any recent surgeries in the last month or have any planned in the near future? No documented in this encounter Plan of Treatment Upcoming Encounters Date Type Specialty Care Team Description 12/27/2021 Office Visit Hematology and Erin Barillas M D Oncology [address] [phone] (Joi diallo) 02/14/2022 Office Visit Hematology and Erin Barillas M D Oncology [address] [phone] (Joi diallo) 04/25/2022 Ancillary Procedure Cardiology 04/25/2022 Office Visit Cardiology Claire Lopez , FESTUS 130 [facility] [address] [place] [phone] (Wo rk) 05/13/2022 Office Visit Rheumatology Tod Perez NP [address] [phone] (Wo rk) documented as of this encounter Visit Diagnoses Not on filedocumented in this encounter Care Teams Residential Sales Relationship Specialty Start Date End Date Layne Cai MD PCP - General 04/05/[address] [place] [phone] Claire Lopez NP Cardiovascular Disease 11/22/[address] [place] [phone] Tod Perez NP Rheumatology 12/28/[address] [phone] documented as of this encounter
--- OUTSIDE RECORDS SUMMARY | 2021-12-21 01:19 | XMS_ITS | Clinical Summary ---
:1945 Author Organization [facility] Address [address] [place] [address] Care Team Providers Name Role Phone Layne Cai MD Primary Care Provider Claire Lopez LAMP MECHANIC Unavailable Tod Perez LAMP MECHANIC Unavailable Allergies Active Allergy Reactions Severity Noted Date Comments Lisinopril 09/15/2013 Causes chest pa in. ? 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 omeprazole (PRILOSEC) 0 04/28/2019 Active 40 mg capsule metoprolol XL TK 1 T PO D 0 10/20/2019 Act nathaniel (TOPROL-XL) 25 mg tablet aspirin 81 mg EC tablet Take 81 mg by 0 Active mouth daily. simvastatin (ZOCOR) 40 Take 40 mg by 0 Active mg tablet mouth every evening. sulfaSALAzine 1 tab twice 180 Tablet 3 06/19/2021 Ac tive (AZULFIDINE) 500 mg daily tablet metroNIDAZOLE APPLY TO ROSACEA 0 10/05/2021 Active (METROGEL) 0.75 % gel TWO TIMES A DAY FOR 6 WEEKS; THEN ONCE DAILY EVER OTHER DAY hydroxyurea (HYDREA) TAKE 1 CAPSULE 90 capsule 1 11/15/2021 Active 500 mg capsule BY MOUTH DAILY Active Problems Patient Care Coordination Note Formatting of this note might be differe nt from the original. 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 Cardiac cath showing bridging and mild luminal irregularities in '12 Pacemaker Sleep apnea Overview: weaing cpap Hypertension GERD (gastroesophageal reflux disease) Hypercholesteremia Enlarged prostate Encounters Date Type Specialty Care Team Description 12/18/2021 Office Visit Rheumatology Ana, Inflammatory ar thritis (Primary Dx); Tod Maxwell NP Encounter for v itamin deficiency screening 11/28/2021 Telephone Hematology and Nargis, Coordination Of Care; Oncology MD Erin Orders (Non Pre -visit) 11/16/2021 Orders Only Hematology and Hudson, Oncology TRAM Recio 11/15/2021 Office Visit Hematology and Nargis, Polycythemia vera ([facility]) Oncology MD Erin (Primary Dx) 11/11/2021 Refill Hematology and Estefanía Renate Medications R efill Oncology R, LAMP MECHANIC 11/07/2021 Refill Hematology and Estefanía, Renate Other Oncology R, LAMP MECHANIC 11/05/2021 Abstract Rheumatology Tod Perez NP 10/17/2021 Office Visit Cardiology Jessica, Pacemaker (Prim augustine Dx); FESTUS Rangel Coronary artery disease involving tonawanda coronary artery of tonawanda heart without angina pectoris; Primary hyperte nsion; Hypercholestere nando 10/17/2021 Ancillary Procedure Cardiology Pacemake r 09/27/2021 Telemedicine Hematology and Yanelis, Canceled (Pro vider) Oncology Reshma Spencer NP 09/27/2021 Telephone Hematology and Yanelis, Appointment R elated Oncology Reshma Spencer NP 09/27/2021 Telephone Hematology and Yanelis, Appointment R elated Oncology Reshma Spencer, LAMP MECHANIC 09/25/2021 Telephone Hematology and Yanelis, Appointment R elated Oncology Reshma Spencer, LAMP MECHANIC from Last 3 Months Immunizations Name Administration Dates Next Due Covid-19 mRNA Vaccine (MODERNA COVID-19) 04/03/2021, 021, 07/13/2020 PF 0.5 ml IM (18 yrs+) Historical Influenza Vaccine, Unspecified 05/03/2019 Influenza Vaccine =>3yo Split 04/08/2012 Preservative Free IM Influenza Vaccine High Dose (FLUZONE HIGH 03/08/2021, 2019, 05/20/2019 DOSE) PF 0.7 ml IM (65 yrs+) Pneumococcal Conj Vacc PCV13 (PREVNAR-13) 12/28/2014 IM Pneumococcal Polysaccharide (PPSV23) 12/05/2008 Vaccine (PNEUMOVAX-23) =>2YO SQ/IM Surgical History Surgery Date Site/Laterality Comments CHOLECYSTECTOMY 2005 CATARACT REMOVAL bilateral HERNIA REPAIR EYE SURGERY CARDIAC PACEMAKER PLACEMENT Medical History Medical History Date Comments GERD (gastroesophageal reflux disease) Cataract bilateral Biliary colic Hypercholesteremia Enlarged prostate Inguinal hernia bilateral Hypertension Sleep apnea weaing cpap Pacemaker Heart imaging Left heart Cath 2011 Mild luminal irregularities and m yocardial bridging of LAD Arthritis Family History Medical History Relation Name Comments Diabetes Brother Diabetes Father Stroke Father Arthritis Mother unkown type Relation Name Status Comments Brother Father Mother Social History Tobacco Use Types Packs/Day Years [...] Assigned at Date Recorded Not on file Last Filed Vital Signs Vital Sign Reading Time Taken Comments Blood Pressure 121/74 12/18/2021 0958 EDT Pulse 77 11/15/2021 1016 EDT Temperature 36.1 ??C (96.9 ??F) 11/15/2021 1016 EDT Respiratory Rate 18 11/15/2021 1016 EDT Oxygen Saturation 98% 11/15/2021 1016 EDT Inhaled Oxygen Concentration - - Weight 102.1 kg (225 lb) 12/18/2021 0958 EDT Height 181 cm (5' 11.26) 12/18/2021 0958 EDT Body Mass Index 31.15 12/18/2021 0958 EDT Plan of Treatment Upcoming Encounters Date Type Specialty Care Team Description 12/27/2021 Office Visit Hematology and Erin Barillas M D Oncology [address] [place] [phone] (Joi rk) 02/14/2022 Office Visit Hematology and Erin Barillas M D Oncology [address] [place] [phone] (Wo rk) 04/25/2022 Ancillary Procedure Cardiology 04/25/2022 Office Visit Cardiology Claire Lopez NP 130 [facility] [address] [phone] (Wo rk) 05/13/2022 Office Visit Rheumatology Tod Perez NP 111 [facility], [facility] 5 [place] [phone] (Wo rk) Health Maintenance Due Date Last Done Comments COVID-19 Vaccine (4 - Booster for 08/04/2021 04/03/2021, , Moderna series) 07/13/2020 Fall Risk Screening 06/19/2022 06/19/2021, 04/03/2021, 12/28/2020, Additional history exists Hepatitis C Screen Completed 05/10/2014 Procedures Procedure Name Priority Date/Time Associated Comments Diagnosis MAGNESIUM Routine 11/05/2021 Results for thi s procedure are i n the results section. COMPLETE BLOOD COUNT Routine 11/05/2021 Results for this AND DIFFERENTIAL procedure a re in the results section. COMPREHENSIVE Routine 11/05/2021 Results for th is METABOLIC PANEL (CMP) proced ure are in the results section. CARDIAC IMPLANT CHECK Routine 10/17/2021 15:57 Pacemaker Re sults for this - IN CLINIC EDT procedure are i n the results section. from Last 3 Months Results COMPLETE BLOOD COUNT AND DIFFERENTIAL (11/05/2021) WBC, External 8.60 [facility] RBC, External 5.72 [facility] Hemoglobin, 13.0Comment: [facility] HCT, External 46.0 [facility] MCV, External 80 [facility] MCH, External 22.7Comment: [facility] MCHC, External 28.3Comment: [facility] PLT, External 291 [facility] RDW-CV, External 18.3Comment: [facility] Neutrophils, 73.6 [facility] Lymphocytes, 17.2 [facility] Monocytes, External 7.8 [facility] Eosinophils, 0.0 [facility] Basophils, External 0.8 [facility] ABS Neutrophils, 6.33 [facility] ABS Lymphs, 1.48 [facility] ABS Monocytes, 0.67 [facility] ABS Eosinophils, 0.00 [facility] ABS Basophils, 0.07 [facility] Specimen Blood - Venous blood (substance) Performing Organization Address City/State/ZIP Code Phon e Number [facility] MAGNESIUM (11/05/2021) Magnesium, External 2.5Comment: [facility] Specimen Blood - Venous blood (substance) Performing Organization Address City/State/ZIP Code Phon e Number [facility] COMPREHENSIVE METABOLIC PANEL (CMP) (11/05/2021) GFR, Calculated, 53.39 [facility] Glucose, Serum, 128Comment: [facility] Albumin, External 4.2 [facility] Total Alkaline [address] [facility] Phosphatase[facility] External ALT, External 19 [facility] AST, External 15 [facility] BUN, External 23Comment: [facility] Calculated Calcium, [facility] Calcium, External 8.9 [facility] Chloride, External 106 [facility] CO2, External 26.3 [facility] Creatinine, External 1.3 [facility] Fasting?, External [facility] Potassium, External 4.9 [facility] Sodium, External 140 [facility] Total Protein, 7.1 [facility] Bilirubin, Total, 0.5 [facility] Specimen Blood - Venous blood (substance) Performing Organization Address City/[facility]/ZIP Code Phon e Number [facility] CARDIAC IMPLANT CHECK - IN CLINIC - PACEMAKER SINGLE CHAMBER W/ PROG (10/17/2021 15:57 EDT) Specimen Narrative DEVICECHECK - 10/17/2021 15:58 EDT Refer to same day OV for full details Procedure Note Claire Lopez NP - 10/17/2021 Refer to same day OV for full details Performing Organization Address City/[facility] Code Phon e Number DEVICECHECK from Last 3 Months Insurance Payer Benefit Plan / Subscriber ID Effective Dates Phone Addre ss Type Group MEDICARE MEDICARE A/B [id number] 2008-Presen P O [place] [id number] Medicare GL [place] [facility] [place] [id number] [place] [facility] [id number] 2021-Prese [address] [place] [address] Colgrove,Praneeth E Personal/Family Self 1945 [address] (Home) [place] [address] Colgrove,Praneeth E Personal/Family Self 1945 [address] [place] [address] Colgrove,Praneeth E Personal/Family Self 1945 [address] (Home) [place] [address] Advance Directives For more information, please contact: [phone] Documents on File Type Date Recorded Patient Air Drier Machine Operator Explanati on Advance Directives and Living Will Power of Manager Procurement Latest Code Status on File Code Status Date Activated Date Inactivated Comments Full Code 11/22/2020 9:45 11/22/2020 17:38 Reason for decision includes: Full code consistent with over all plan of care Who participated in the discussion? Not Discussed Full Code 04/09/2012 14:03 04/10/2012 16:34 Full Code 04/08/2012 0:29 04/09/2012 14:03 Care Teams Capper Machine Operator Relationship Specialty Start Date End Date Layne Cai MD PCP - General 04/05/20 [address] [place] [phone] Claire Lopez NP Cardiovascular Disease 11/22/20 130 [facility] 2[address] [place] [phone] Tod Perez NP Rheumatology 12/28/20 111 [facility], [facility] 5 [place] [phone]
--- OUTSIDE RECORDS SUMMARY | 2021-12-21 01:19 | XMS_ITS | Encounter Summary ---
:1945 Author Organization [facility] Address [address] [place] [address] Care Team Providers Name Role Phone Layne Cai MD Primary Care Provider Claire Lopez CONSTRUCTION MGR Unavailable Tod Perez CONSTRUCTION MGR Unavailable Reason for Visit Reason Onset Date Comments Medications Refill 06/10/2021 Encounter Details Date Type Department Care Team Description 06/10/[address] [facility] Sudhir Rosales MD Medications Refill Rheumatology & Immunology [address], [facility] 5 [place], [place] [address] [place] [phone] (Wo rk) Social History Tobacco Use Types [...] Sig Dispensed Refills Start Date End Date sulfaSALAzine Take 1 tab daily for 60 Tablet 2 06/11/2021 0 06/19/2021 (AZULFIDINE) 500 mg 7-14 days then tablet increase to 1 tab in am and 1 tab in pm- check labs after 30 days documented in this encounter Miscellaneous Notes Telephone Encounter - Bing Espinal RN - 06/13/2021 1059 EST Images from the original note were not included. Catalina Willard MD Rheumatology Nurse Pool 13 hours ago (21:06) Hi, No concerns with labs. His renal function is stable. CBC and LFTs look good. No evidence of medication toxicity. Darcy elephone Encounter - Bing Espinal RN - 06/11/2021 1250 EST Results received. elephone Encounter - Bing Espinal RN - 06/11/2021 1245 EST [facility] lab contacted. Results to be faxed to us. elephone Encounter - Bing Espinal RN - 06/11/2021 1211 EST ESE 04/03/21 PLAN: Start sulfasalazine 500mg (1 tab) orally daily x 7-14 days if tolerated increase to 1 tab am and 1 tab pm Check labs 1 month after starting, then every 3-4 months Last labs 03/23/21 elephone Encounter - Bing Espinal RN - 06/11/2021 1211 EST From: Praneeth Villanueva To: Office of Sudhir Rosales MD Sent: 06/10/2021 9:41 EST Subject: Medication Renewal Request Refills have been requested for the following medications: sulfaSALAzine (AZULFIDINE) 500 mg tablet [Sudhir Rosales MD] Preferred pharmacy: [facility] [address] documented in this encounter Plan of Treatment Upcoming Encounters Date Type Specialty Care Team Description 12/27/2021 Office Visit Hematology and Erin Barillas M D Oncology [address] [place] [phone] (Joi diallo) 02/14/2022 Office Visit Hematology and Erin Barillas M D Oncology [address] [place] [phone] (Joi diallo) 04/25/2022 Ancillary Procedure Cardiology 04/25/2022 Office Visit Cardiology Claire Lopez NP 130 [facility] [address] [phone] (Joi rk) 05/13/2022 Office Visit Rheumatology Tod Perez NP 111 [facility], [facility] 5 [place] [address] (Joi diallo) documented as of this encounter Visit Diagnoses Not on filedocumented in this encounter Discontinued Medications Medication Sig Discontinue Reason Start Date End Date sulfaSALAzine Take 1 tab daily Reorder 04/12/2021 06/10/2021 (AZULFIDINE) 500 mg for 7-14 days then tablet increase to 1 tab in am and 1 tab in pm- check labs after 30 days documented as of this encounter Care Teams Boom Boss Relationship Specialty Start Date End Date Layne Cai MD PCP - General 04/05/20 [address] [place] [address] Claire Lopez NP Cardiovascular Disease 11/22/20 130 [facility] [address] [place] [phone] Tod Perez NP Rheumatology 12/28/20 111 [facility], Level 5 [place] [address] documented as of this encounter
--- OUTSIDE RECORDS SUMMARY | 2021-12-21 01:19 | XMS_ITS | Encounter Summary ---
:1945 Author Organization [facility] Address [address] [place] [address] Care Team Providers Name Role Phone Layne Cai MD Primary Care Provider Claire Lopez FILTER SCREEN CLEANER Unavailable Tod Perez NP Unavailable Reason for Visit (Routine) - Authorization Not Required Specialty Diagnoses / Procedures Referred By Contact Refer red To Contact Diagnoses Pacemaker Claire Lopez NP Procedures CARDIAC IMPLANT CHECK - IN CLINIC 130 [facility] [address] [place] [address] Referral ID Status Reason Start Expiration Visits Visits Date Date Requested Authorized [id number] Authorization Not 1 1 Required 9 Encounter Details Date Type Department Care Team Description 10/17/2021 Ancillary Procedure [facility] - [facility] Pacemaker Cardiology Clinic [address] [place] [address] Social History Tobacco Use Types [...] and Erin Barillas M D Oncology [address] [phone] (Wo rk) 02/14/2022 Office Visit Hematology and Erin Barillas M D Oncology [address] [phone] (Wo rk) 04/25/2022 Ancillary Procedure Cardiology 04/25/2022 Office Visit Cardiology Claire Lopez NP [address] [place] [address] [phone] (Wo rk) 05/13/2022 Office Visit Rheumatology Tod Perez NP [address] [phone] (Wo rk) documented as of this encounter Procedures Procedure Name Priority Date/Time Associated Diagnosis Comme nts CARDIAC IMPLANT Routine 10/17/2021 15:57 Pacemaker Results for this CHECK - IN CLINIC EDT procedure are in the results section. documented in this encounter Results CARDIAC IMPLANT CHECK - IN CLINIC - PACEMAKER SINGLE CHAMBER W/ PROG (10/17/2021 15:57 EDT) Specimen Narrative DEVICECHECK - 10/17/2021 15:58 EDT Refer to same day OV for full details Procedure Note Claire Lopez NP - 10/17/2021 Refer to same day OV for full details Performing Organization Address City/State/ZIP Code Phon e Number DEVICECHECK documented in this encounter Visit Diagnoses Diagnosis Pacemaker Cardiac pacemaker in situ documented in this encounter Care Teams President Relationship Specialty Start Date End Date Layne Cai MD PCP - General 04/05/20 26 [place] [phone] Claire Lopez NP Cardiovascular Disease 11/22/20 130 [facility] [address] [place] [address] Tod Perez NP Rheumatology 12/28/20 111 [facility], Level 5 [place] [address] documented as of this encounter
--- OUTSIDE RECORDS SUMMARY | 2021-12-21 01:19 | XMS_ITS | Encounter Summary ---
:1945 Author Organization [facility] Address [address] [place] [address] Care Team Providers Name Role Phone Layne Cai MD Primary Care Provider Claire Lopez LAST PICKER Unavailable Tod Perez LAST PICKER Unavailable Reason for Visit Reason Onset Date Comments Coordination Of Care 11/28/2021 Orders (Non Pre-visit) 12/03/2021 Encounter Details Date Type Department Care Team Description 11/28/2021 Telephone [facility] Cancer Center Erin Barillas MD Coordination Of Care; Hematology & Oncology [address] [place] [address] Orders (Non Pre-visit) - [facility], [address], [address] [place] [address] [place] [phone] (Wo rk) Social History Tobacco Use Types [...] this encounter Miscellaneous Notes Telephone Encounter - Almita Peters RN - 12/03/2021 1140 EDT Returned call to Chikis. Clarified that pt should have TP if hct is >44%. elephone Encounter - Demetrice Cole - 12/03/2021 1032 EDT Chikis from [facility] calling to get clarification on orders. Please call back to discuss elephone Encounter - Almita Peters RN - 11/30/2021 1651 EDT Returned call to Praneeth.Left message with PAC# for call back. elephone Encounter - Jame Soriano - 11/29/2021 1225 EDT Whitney with [facility] infusion services is calling regarding orders she received. Please call to discuss. elephone Encounter - Graciela Ross - 11/28/2021 0956 EDT States patient is to have theoputic phlebotomy [facility]. Calling to follow up documented in this encounter Plan of Treatment Upcoming Encounters Date Type Specialty Care Team Description 12/27/2021 Office Visit Hematology and Erin Barillas M D Oncology [address] [place] [phone] (Wo rk) 02/14/2022 Office Visit Hematology and Erin Barillas M D Oncology [address] [place] [phone] (Wo rk) 04/25/2022 Ancillary Procedure Cardiology 04/25/2022 Office Visit Cardiology Claire Lopez NP [address] [place] [phone] (Wo rk) 05/13/2022 Office Visit Rheumatology Tod Perez NP [address] [place] [phone] (Wo rk) documented as of this encounter Visit Diagnoses Not on filedocumented in this encounter Care Teams Supervisor Building Maintenance Relationship Specialty Start Date End Date Layne Cai MD PCP - General 04/05/[address] [place] [phone] Claire Lopez NP Cardiovascular Disease 11/22/[address] [place] [phone] Tod Perez NP Rheumatology 12/28/[address] [place] [phone] documented as of this encounter
--- OUTSIDE RECORDS SUMMARY | 2021-12-21 01:19 | XMS_ITS | Encounter Summary ---
:1945 Author Organization [facility] Address [address] [place] [address] Care Team Providers Name Role Phone Layne Cai MD Primary Care Provider Claire Lopez NP Unavailable Tod Perez ON SITE PROPERTY MANAGER Unavailable Encounter Details Date Type Department Care Team Description 11/05/2021 Abstract [facility] Juanjose Perez NP Rheumatology & Immunology - 111 [facility], [address], [address] [place], [place] [phone] [place] [phone] (Wo rk) Social History Tobacco Use [...] and Erin Barillas M D Oncology [address] [phone] (Wo rk) 02/14/2022 Office Visit Hematology and Erin Barillas M D Oncology [address] [place] [phone] (Wo rk) 04/25/2022 Ancillary Procedure Cardiology 04/25/2022 Office Visit Cardiology Claire Lopez , FESTUS 130 [facility] [address] [phone] (Wo rk) 05/13/2022 Office Visit Rheumatology Tod Perez NP 111 [facility], [facility] 5 [place] [address] (Wo rk) documented as of this encounter Procedures Procedure Name Priority Date/Time Associated Diagnosis Comme nts COMPLETE BLOOD COUNT AND Routine 11/05/2021 Res ults for this DIFFERENTIAL procedure are i n the results section . MAGNESIUM Routine 11/05/2021 Results for thi s procedure are i n the results section . COMPREHENSIVE METABOLIC Routine 11/05/2021 Resu lts for this PANEL (CMP) procedure are i n the results section . documented in this encounter Results MAGNESIUM (11/05/2021) Magnesium, External 2.5Comment: [facility] Specimen Blood - Venous blood (substance) Performing Organization Address City/State/ZIP Code Phon e Number [facility] COMPLETE BLOOD COUNT AND DIFFERENTIAL (11/05/2021) WBC, External 8.60 [facility] RBC, External 5.72 [facility] Hemoglobin, 13.0Comment: [facility] HCT, External 46.0 [facility] MCV, External 80 [facility] MCH, External 22.7Comment: [facility] MCHC, External 28.3Comment: [facility] PLT, External 291 [facility] RDW-CV, External 18.3Comment: [facility] Neutrophils, 73.6 [facility] Lymphocytes, 17.2 [facility] Monocytes, External 7.8 [facility] Eosinophils, 0.0 [facility] Basophils, External 0.8 [facility] ABS Neutrophils, 6.33 [facility] ABS Lymphs, 1.48 [facility] ABS Monocytes, 0.67 [facility] ABS Eosinophils, 0.00 [facility] ABS Basophils, 0.07 [facility] Specimen Blood - Venous blood (substance) Performing Organization Address City/State/ZIP Code Phon e Number [facility] COMPREHENSIVE METABOLIC PANEL (CMP) (11/05/2021) Pathologist [facility] GFR, Calculated, 53.39 [facility] Glucose, Serum, 128Comment: [facility] Albumin, External 4.2 [facility] Total Alkaline 97 [facility] External ALT, External 19 [facility] AST, External 15 [facility] BUN, External 23Comment: [facility] Calculated Calcium, [facility] Calcium, External 8.9 [facility] Chloride, External 106 [facility] CO2, External 26.3 [facility] Creatinine, External 1.3 [facility] Fasting?, External [facility] Potassium, External 4.9 [facility] Sodium, External 140 [facility] Total Protein, 7.1 [facility] Bilirubin, Total, 0.5 [facility] Specimen Blood - Venous blood (substance) Performing Organization Address City/State/ZIP Code Phon e Number [facility] documented in this encounter Visit Diagnoses Not on filedocumented in this encounter Care Teams Professor Of Marketing Relationship Specialty Start Date End Date Layne Cai MD PCP - General 04/05/20 [address] [place] [phone] Claire Lopez NP Cardiovascular Disease 11/22/20 130 [facility] [address] [place] [phone] Tod Perez NP Rheumatology 12/28/20 111 [facility], Level 5 [place] [phone] documented as of this encounter
--- OUTSIDE RECORDS SUMMARY | 2021-12-21 01:19 | XMS_ITS | Encounter Summary ---
:1945 Author Organization [facility] Address [address] [place] [address] Care Team Providers Name Role Phone Layne Cai MD Primary Care Provider Claire Lopez AUTO MACHINIST Unavailable Tod Perez AUTO MACHINIST Unavailable Reason for Visit Reason Onset Date Comments Results 06/11/2021 Encounter Details Date Type Department Care Team Description 06/11/2021 Telephone [facility] Cancer Center Erin Barillas MD Results Hematology & Oncology - [address] [place], [place] [phone] [place] [phone] (Wo rk) Social History Tobacco Use [...] this encounter Miscellaneous Notes Telephone Encounter - Augustina Salazar - 06/11/2021 1520 EST LABS ENTERED FROM EXTERNAL LAB. Augustina Salazar 06/11/2021 15:20 documented in this encounter Plan of Treatment Upcoming Encounters Date Type Specialty Care Team Description 12/27/2021 Office Visit Hematology and Erin Barillas M D Oncology [address] [place] [address] 2 [place] [phone] (Joi diallo) 02/14/2022 Office Visit Hematology and Erin Barillas M D Oncology [address] [phone] (Joi diallo) 04/25/2022 Ancillary Procedure Cardiology 04/25/2022 Office Visit Cardiology Claire Lopez NP 130 [facility] [address] [place] [phone] (Wo rk) 05/13/2022 Office Visit Rheumatology Tod Perez NP 111 [facility] 5 [place] [phone] (Wo imani) documented as of this encounter Procedures Procedure Name Priority Date/Time Associated Diagnosis Comme nts COMPREHENSIVE METABOLIC Routine 05/21/2021 Resu lts for this PANEL (ONCOLOGY USE procedur e are in the ONLY-INC MG) results section . COMPLETE BLOOD COUNT AND Routine 05/21/2021 Res ults for this DIFFERENTIAL procedure are i n the results section . documented in this encounter Results (ABNORMAL) COMPLETE BLOOD COUNT AND DIFFERENTIAL (05/21/2021) Pathologist Sig nature WBC, External 7.51 [facility] RBC, External 4.73 [facility] Hemoglobin, External 13.3 (A) 13.5 - 17.5 [facility] HCT, External 44.4 [facility] MCV, External 93.9 [facility] MCH, External 28.1 [facility] MCHC, External 30.0 (A) 32.0 - 36.0 [facility] PLT, External 328 [facility] RDW-CV, External 16.4 (A) 11.8 - 14.1 [facility] Neutrophils, External 72.9 [facility] Lymphocytes, External 17.7 [facility] Monocytes, External 8.0 [facility] Eosinophils, External 0.0 [facility] Basophils, External 0.7 [facility] ABS Neutrophils, External 5.48 [facility] ABS Lymphs, External 1.33 [facility] ABS Monocytes, External 0.60 [facility] ABS Eosinophils, External 0.00 [facility] ABS Basophils, External 0.05 [facility] LAB Specimen Blood - Venous blood (substance) Performing Organization Address City/State/ZIP Code Phon e Number EXTERNAL LAB (ABNORMAL) COMPREHENSIVE METABOLIC PANEL (ONCOLOGY USE ONLY-INC MG) (05/21/2021) Pathologist Sig nature Calcium, External 9.0 [facility] CO2, External 29.3 [facility] LAB AST, External 19 [facility] LAB ALT, External 20 [facility] LAB Bilirubin, Total, External 0.4 [facility] LAB Creatinine, External 1.3 [facility] LAB Calculated Calcium, External EXTERNAL LAB Anion Gap, External [facility] LAB Total Protein, External 7.0 [facility] LAB Potassium, External 5.0 [facility] LAB Total Alkaline Phosphatase, 93 [facility] LAB External Albumin, External 3.7 [facility] LAB BUN, External 17 [facility] LAB GFR, Calculated, External 53.53 EX[facility] LAB Fasting?, External [facility] LAB Chloride, External 102 [facility] LAB Glucose, Serum, External 127 (A) 74 - 106 [facility] LAB Sodium, External 139 [facility] LAB Magnesium, External [facility] LAB Specimen Blood - Venous blood (substance) Performing Organization Address City/State/ZIP Code Phon e Number EXTERNAL LAB documented in this encounter Visit Diagnoses Not on filedocumented in this encounter Care Teams Hand Icer Relationship Specialty Start Date End Date Layne Cai MD PCP - General 04/05/20 26 [place] [phone] Claire Lopez NP Cardiovascular Disease 11/22/20 130 [facility] [address] [place] [phone] Tod Perez NP Rheumatology 12/28/20 111 [facility], Level [address] [place] [address] documented as of this encounter
--- OUTSIDE RECORDS SUMMARY | 2021-12-21 01:19 | XMS_ITS | Encounter Summary ---
:1945 Author Organization [facility] Address [address] [place] [address] Care Team Providers Name Role Phone Layne Cai MD Primary Care Provider Claire Lopez CONSTRUCTION SALES MANAGER Unavailable Tod Perez CONSTRUCTION SALES MANAGER Unavailable Reason for Visit Reason Onset Date Comments Medications Refill 07/25/2021 Pt in [facility] and is in need of a new RX Returning Call 07/25/2021 Encounter Details Date Type Department Care Team Description 07/25/2021 Refill [facility] Tod Perez, Sc dications Refill (Pt Rheumatology & CONSTRUCTION SALES MANAGER in [facility] and is Immunology - Main [place] [facility] [address] [place] [address] in need of a new RX); 111 [facility], [facility] [place] [address] [place], [place] [phone] (Wo rk) Social History Tobacco Use Types [...] this encounter Miscellaneous Notes Telephone Encounter - Lane Uribe - 07/25/2021 1410 EST Patient's called to let us know this was sent to us in error. Patient's omeprazole filled by a different provider. Patient is all set. elephone Encounter - Raven Xie RN - 07/25/2021 1314 EST Left message for patient to call back. Not sure about the refill request we received today. I don't find a previous prescription for omeprazole from this office. documented in this encounter Plan of Treatment Upcoming Encounters Date Type Specialty Care Team Description 12/27/2021 Office Visit Hematology and Erin Barillas M D Oncology [address] [phone] (Joi diallo) 02/14/2022 Office Visit Hematology and Erin Barillas M D Oncology [address] [phone] (Joi diallo) 04/25/2022 Ancillary Procedure Cardiology 04/25/2022 Office Visit Cardiology Claire Lopez , FESTUS 130 [facility] [address] [place] [address] (Wo rk) 05/13/2022 Office Visit Rheumatology Tod Perez NP [address] [place] [phone] (Wo rk) documented as of this encounter Visit Diagnoses Not on filedocumented in this encounter Care Teams Freelance Operator Relationship Specialty Start Date End Date Layne Cai MD PCP - General 04/05/20 26 [place] [phone] Claire Lopez NP Cardiovascular Disease 11/22/20 130 [facility] 21 [place] [address] Tod Perez NP Rheumatology 12/28/[address] [place] [phone] documented as of this encounter
--- OUTSIDE RECORDS SUMMARY | 2021-12-21 01:19 | XMS_ITS | Encounter Summary ---
:1945 Author Organization [facility] Address [address] [place] [address] Care Team Providers Name Role Phone Layne Cai MD Primary Care Provider Claire Lopez PREVENTATIVE MAINTENANCE TECHNICIAN Unavailable Tod Perez PREVENTATIVE MAINTENANCE TECHNICIAN Unavailable Reason for Visit Reason Onset Date Comments Appointment Related 06/11/2021 Encounter Details Date Type Department Care Team Description 06/11/2021 Telephone [facility] Cancer Center Rochelle Hilario NP Appointment Related Hematology & Oncology [address] 2 [place], [place] [address] [place] [address] [phone] (Wo rk) Social History Tobacco Use [...] this encounter Miscellaneous Notes Telephone Encounter - Joanie Bowling MA - 06/11/2021 0930 EST Called patient pre-charting, no answer. Left message, reminder of visit. Will call back as time allows. documented in this encounter Plan of Treatment Upcoming Encounters Date Type Specialty Care Team Description 12/27/2021 Office Visit Hematology and Erin Barillas M D Oncology [address] [phone] (Wo rk) 02/14/2022 Office Visit Hematology and Erin Barillas M D Oncology [address] [place] [phone] (Wo rk) 04/25/2022 Ancillary Procedure Cardiology 04/25/2022 Office Visit Cardiology Claire Lopez NP 130 [facility] [address] [place] [phone] (Wo rk) 05/13/2022 Office Visit Rheumatology Tod Perez NP 111 [facility] 5 [place] [address] (Wo rk) documented as of this encounter Visit Diagnoses Not on filedocumented in this encounter Care Teams Nut Picker Relationship Specialty Start Date End Date Layne Cai MD PCP - General 04/05/20 26 [place] [address] Claire Lopez NP Cardiovascular Disease 11/22/20 130 [facility] [address] [place] [phone] Tod Perez NP Rheumatology 12/28/20 111 [facility], Level [address] [place] [address] documented as of this encounter
--- OUTSIDE RECORDS SUMMARY | 2021-12-21 01:19 | XMS_ITS | Encounter Summary ---
:1945 Author Organization [facility] Address [address] [place] [address] Care Team Providers Name Role Phone Layne Cai MD Primary Care Provider Claire Lopez PRODUCTION COST ESTIMATOR Unavailable Tod Perez PRODUCTION COST ESTIMATOR Unavailable Reason for Referral Prior Authorization (See Order Priority) - Authorized Specialty Diagnoses / Procedures Referred By Contact Refer red To Contact Infusion Therapy Diagnoses Polycythemia vera (HCC) Erin Barillas MD [facility] [address] [place] [id number] [facility] [address] [place], [place] Fax: [phone] Referral ID Status Reason Start Expiration Visits Visits Date Date Requested Authorized [id number] Authorized Specialty 04/23/2021 06/15/2021 1 1 Services Required Question Answer Is this appt for transfusion, medication, test or Proc edure injection? Type of procedure? Therapeutic phlebotomy Are labs to be obtained during the appt? No Does this have a lab dependency? This patient is not l ab dependent Are preliminary tests complete (like MRI)? No Have orders been place for this appt? (i.e.: Blood Yes Transfusion Order Set, Therapy Plan, Lab Orders, Supportive Plan, Etc) Comments Therapeutic phleb order from 08/2020 Reason for Visit Prior Authorization (See Order Priority) - Authorized Specialty Diagnoses / Procedures Referred By Contact Refer red To Contact Infusion Therapy Diagnoses Polycythemia vera (HCC) Erin Barillas MD [facility] [address] [address] [facility], [address] [place], [place] Fax: [phone] Referral ID Status Reason Start Expiration Visits Visits Date Date Requested Authorized [id number] Authorized Specialty 04/23/2021 06/15/2021 1 1 Services Required Encounter Details Date Type Department Care Team Description 05/04/2021 Hospital Encounter [facility] ycythemia vera (HCC) [facility] [address] [place] [address] Social History Tobacco Use Types Packs/Day Years [...] Sign Reading Time Taken Comments Blood Pressure 180/80 05/04/2021 1627 EST Pulse - - Temperature 36.4 ??C (97.5 ??F) 05/04/2021 1627 EST Respiratory Rate 18 05/04/2021 1627 EST Oxygen Saturation 95% 05/04/2021 1627 EST Inhaled Oxygen Concentration - - Weight [...] mg EC tablet Take 81 mg by mouth 0 daily. finasteride (PROSCAR) 5 Take 5 mg by mouth 0 mg tablet daily. metoprolol XL (TOPROL-XL) TK 1 T PO D 0 0 25 mg tablet omeprazole (PRILOSEC) 40 0 04/28/2019 mg capsule atorvastatin (LIPITOR) 40 Take 1 Tab by mouth 90 Tab 3 0 11/09/2020 06/14/2021 mg tablet at bedtime. hydroxyurea (HYDREA) 500 TAKE ONE CAPSULE BY 90 capsule 0 05/13/2021 mg capsule MOUTH EVERY DAY isosorbide MONOnitrate Take 1 Tablet by 90 Tablet 3 021 06/14/2021 (IMDUR) 30 mg CR tablet mouth daily. sulfaSALAzine Take 1 tab daily 60 Tablet 2 04/12/202106/10 (AZULFIDINE) 500 mg for 7-14 days then tablet increase to 1 tab in am and 1 tab in pm- check labs after 30 days documented as of this encounter Discharge Disposition Disposition Code Departure Means Destination Home or Self Care documented in this encounter Plan of Treatment Upcoming Encounters Date Type Specialty Care Team Description 12/27/2021 Office Visit Hematology and Erin Barillas M D Oncology 111 [facility] 2 [place] [address] (Joi diallo) 02/14/2022 Office Visit Hematology and Erin Barillas M D Oncology 111 [facility] 2 [place] [address] (Joi diallo) 04/25/2022 Ancillary Procedure Cardiology 04/25/2022 Office Visit Cardiology Claire Lopez NP 130 [facility] [address] [place] [phone] (Wo rk) 05/13/2022 Office Visit Rheumatology Tod Perez, FESTUS [address] [address] (Wo rk) Scheduled Referrals Name Type Priority Associated Order Schedule Diagnoses AMB CONS/FOLLOW Outpatient Routine/Next Polycythemia vera 1 Occur rences UP SHEP 4 Referral Available (HCC) starting INFUSIONS 05/04/2021 unti l 05/04/2021 documented as of this encounter Visit Diagnoses Diagnosis Polycythemia vera (HCC) documented in this encounter Care Teams Web Operations Administrator Relationship Specialty Start Date End Date Layne Cai MD PCP - General 04/05/[address] [place] [phone] Claire Lopez NP Cardiovascular Disease 11/22/20 130 [facility] [address] [place] [address] Tod Perez NP Rheumatology 12/28/[address] [phone] documented as of this encounter
--- OUTSIDE RECORDS SUMMARY | 2021-12-21 01:19 | XMS_ITS | Encounter Summary ---
:1945 Author Organization [facility] Address [address] [place] [address] Care Team Providers Name Role Phone Layne Cai MD Primary Care Provider Claire Lopez FOREIGN STUDENT ADVISER Unavailable Tod Perez FOREIGN STUDENT ADVISER Unavailable Encounter Details Date Type Department Care Team Description 05/31/2021 Orders Only [facility] Juanjose Perez NP Rheumatology & Immunology [address], [facility] 5 [place], [place] [address] [place] [address] [phone] (Wo rk) Social History Tobacco Use [...] Hematology and Erin Barillas M D Oncology [address] [place] [phone] (Wo rk) 02/14/2022 Office Visit Hematology and Erin Barillas M D Oncology [address] [place] [phone] (Wo rk) 04/25/2022 Ancillary Procedure Cardiology 04/25/2022 Office Visit Cardiology Claire Lopez NP [address] [place] [phone] (Wo rk) 05/13/2022 Office Visit Rheumatology Tod Perez NP [address] [place] [phone] (Wo rk) documented as of this encounter Visit Diagnoses Not on filedocumented in this encounter Care Teams Job Cost Estimator Relationship Specialty Start Date End Date Layne Cai MD PCP - General 04/05/[address] [place] [phone] Claire Lopez NP Cardiovascular Disease 11/22/[address] [place] [address] [phone] Tod Perez NP Rheumatology 12/28/20 111 [facility], Level [address] [place] [address] documented as of this encounter
--- OUTSIDE RECORDS SUMMARY | 2021-12-21 01:19 | XMS_ITS | Encounter Summary ---
:1945 Author Organization [facility] Address [address] [place] [address] Care Team Providers Name Role Phone Layne Cai MD Primary Care Provider Claire Lopez NP Unavailable Tod Perez HOSPICE NURSE PRACTITIONER Unavailable Encounter Details Date Type Department Care Team Description 08/30/2021 Abstract [facility] Juanjose Perez NP Rheumatology & Immunology - 111 [facility], [address], [address] [place], [place] [address] [place] [phone] (Wo rk) Social History Tobacco Use [...] and Erin Barillas M D Oncology [address] [phone] (Wo rk) 02/14/2022 Office Visit Hematology and Erin Barillas M D Oncology [address] [place] [phone] (Wo rk) 04/25/2022 Ancillary Procedure Cardiology 04/25/2022 Office Visit Cardiology Claire Lopez , FESTUS 130 [facility] [address] [phone] (Wo rk) 05/13/2022 Office Visit Rheumatology Tod Perez NP 111 [facility], [address] [phone] (Wo rk) documented as of this encounter Procedures Procedure Name Priority Date/Time Associated Diagnosis Comme nts COMPLETE BLOOD COUNT AND Routine 08/29/2021 Res ults for this DIFFERENTIAL procedure are i n the results section . COMPREHENSIVE METABOLIC Routine 08/29/2021 Resu lts for this PANEL (CMP) procedure are i n the results section . documented in this encounter Results COMPLETE BLOOD COUNT AND DIFFERENTIAL (08/29/2021) Pathologist Sig nature WBC, External 7.6 [facility] RBC, External 5.00 [facility] Hemoglobin, External 12.4Comment: [facility] Low HCT, External 43.0 [facility] MCV, External 86.0 [facility] MCH, External 24.8Comment: [facility] Low MCHC, External 28.8Comment: [facility] Low PLT, External 251 [facility] RDW-CV, External 17.8Comment: [facility] High Neutrophils, 71.8 [facility] External Lymphocytes, 18.5 [facility] External Monocytes, External 8.5 [facility] Eosinophils, 0.0 [facility] External Basophils, External 0.7 [facility] ABS Neutrophils, 5.43 [facility] External ABS Lymphs, External 1.40 [facility] ABS Monocytes, 0.64 [facility] External ABS Eosinophils, 0.00 [facility] External ABS Basophils, 0.05 [facility] External Specimen Blood - Venous blood (substance) Performing Organization Address City/[facility] Code Phon e Number [facility] COMPREHENSIVE METABOLIC PANEL (CMP) (08/29/2021) Pathologist Sig nature GFR, Calculated, 57Comment: Low [facility] External Glucose, Serum, 124Comment: [facility] External High Albumin, External 4.5 [facility] Total Alkaline 94 [facility] Phosphatase, External ALT, External 8 [facility] AST, External 15 [facility] BUN, External 23 [facility] Calculated Calcium, [facility] External Calcium, External 9.2 [facility] Chloride, External 104 [facility] CO2, External 25 [facility] Creatinine, External 1.28 [facility] Fasting?, External [facility] Potassium, External 4.5 [facility] Sodium, External 141 [facility] Total Protein, 6.7 [facility] External Bilirubin, Total, 0.3 [facility] External Specimen Blood - Venous blood (substance) Performing Organization Address City/State/ZIP Code Phon e Number [facility] documented in this encounter Visit Diagnoses Not on filedocumented in this encounter Care Teams Support Services Coordinator Relationship Specialty Start Date End Date Layne Cai MD PCP - General 04/05/20 [address] [place] [phone] Claire Lopez NP Cardiovascular Disease 11/22/20 130 [facility] [address] [phone] Tod Perez NP Rheumatology 12/28/20 111 [facility], [address] [place] [address] documented as of this encounter
--- OUTSIDE RECORDS SUMMARY | 2021-12-21 01:19 | XMS_ITS | Encounter Summary ---
:1945 Author Organization [facility] Address [address] [place] [address] Care Team Providers Name Role Phone Layne Cai MD Primary Care Provider Claire Lopez PLASTERER HELPER Unavailable Tod Perez PLASTERER HELPER Unavailable Reason for Visit Reason Onset Date Comments Medications Refill 11/11/2021 Encounter Details Date Type Department Care Team Description 11/11/2021 Refill [facility] Renate José, PLASTERER HELPER Medications Refill Hematology & Oncology - [address] [place], [place] [address] [place] [address] [phone] (Wo rk) Social History Tobacco Use [...] TAKE 1 CAPSULE BY 90 capsule 1 10/1611/15/2021 mg capsule MOUTH DAILY documented in this encounter Miscellaneous Notes Telephone Encounter - Almita Peters RN - 11/13/2021 1415 EDT From: Praneeth Villanueva To: Office of Renate José APRN Sent: 11/11/2021 21:28 EDT Subject: Medication Renewal Request Refills have been requested for the following medications: hydroxyurea (HYDREA) 500 mg capsule [Erin Barillas MD] Preferred pharmacy: [facility] [address] documented in this encounter Plan of Treatment Upcoming Encounters Date Type Specialty Care Team Description 12/27/2021 Office Visit Hematology and Erin Barillas M D Oncology [address] [phone] (Joi diallo) 02/14/2022 Office Visit Hematology and Erin Barillas M D Oncology [address] [phone] (Joi diallo) 04/25/2022 Ancillary Procedure Cardiology 04/25/2022 Office Visit Cardiology Claire Lopez NP [address] [phone] (Joi diallo) 05/13/2022 Office Visit Rheumatology Tod Perez NP [address] [facility] 5 [place] [address] (Wo rk) documented as of this encounter Visit Diagnoses Not on filedocumented in this encounter Discontinued Medications Medication Sig Discontinue Reason Start Date End Date hydroxyurea (HYDREA) 500 TAKE 1 CAPSULE BY Reorder 11/08/2021 11/11/2021 mg capsule MOUTH DAILY documented as of this encounter Care Teams Cloth Shrinking Machine Operator Helper Relationship Specialty Start Date End Date Layne Cai MD PCP - General 04/05/20 [address] [place] [phone] Claire Lopez NP Cardiovascular Disease 11/22/[address] [place] [phone] Tod Perez NP Rheumatology 12/28/[address] [facility] 5 [place] [phone] documented as of this encounter
--- OUTSIDE RECORDS SUMMARY | 2021-12-21 01:19 | XMS_ITS | Encounter Summary ---
:1945 Author Organization [facility] Address [address] [place] [address] Care Team Providers Name Role Phone Layne Cai MD Primary Care Provider Claire Lopez POULTRY BARN MANAGER Unavailable Tod Perez POULTRY BARN MANAGER Unavailable Reason for Visit Reason Onset Date Comments Appointment Related 05/15/2021 Encounter Details Date Type Department Care Team Description 05/15/2021 Telephone [facility] Rochelle Hilario NP Appointment Related Hematology & Oncology [address] [place], [place] [address] [place] [address] [phone] (Wo rk) Social History Tobacco Use [...] this encounter Miscellaneous Notes Telephone Encounter - Karina Bustamante - 05/15/2021 1138 EST Asked pt to have labs done either today or tomorrow for 05/17 zoom appt with AB documented in this encounter Plan of Treatment Upcoming Encounters Date Type Specialty Care Team Description 12/27/2021 Office Visit Hematology and Erin Barillas M D Oncology [address] [phone] (Wo rk) 02/14/2022 Office Visit Hematology and Erin Barillas M D Oncology [address] [phone] (Wo rk) 04/25/2022 Ancillary Procedure Cardiology 04/25/2022 Office Visit Cardiology Claire Lopez NP [address] [place] [address] [phone] (Wo rk) 05/13/2022 Office Visit Rheumatology Tod Perez NP 111 [facility] 5 [place] [phone] (Wo rk) documented as of this encounter Visit Diagnoses Not on filedocumented in this encounter Care Teams Yarn Texture Machine Operator Relationship Specialty Start Date End Date Layne Cai MD PCP - General 04/05/20 [address] [place] [phone] Claire Lopez NP Cardiovascular Disease 11/22/20 130 [facility] 2[address] [place] [phone] Tod Perez NP Rheumatology 12/28/20 111 [facility], [address] [place] [phone] documented as of this encounter
--- OUTSIDE RECORDS SUMMARY | 2021-12-21 01:19 | XMS_ITS | Encounter Summary ---
:1945 Author Organization [facility] Address [address] [place] [address] Care Team Providers Name Role Phone Layne Cai MD Primary Care Provider Claire Lopez NP Unavailable Tod Perez NP Unavailable Reason for Referral Laboratory Services (Routine/Next Available) - New Request Specialty Diagnoses / Procedures Referred By Contact Refer red To Contact Diagnoses History of seronegative inflammatory arthritis Encounter for long-term (current) use of medications Fall, initial encounter Screening for osteoporosis Tod Perez NP Procedures COMPREHENSIVE METABOLIC PANEL (CMP) [address] [phone] Referral ID Status Reason Start Date Expiration Date Visits V isits Requested Authorized [id number] New Request 06/19/2021 1 1 Laboratory Services (Routine/Next Available) - New Request Specialty Diagnoses / Procedures Referred By Contact Refer red To Contact Diagnoses History of seronegative inflammatory arthritis Encounter for long-term (current) use of medications Fall, initial encounter Screening for osteoporosis Tod Perez NP Procedures COMPLETE BLOOD COUNT AND DIFFERENTIAL [address] [phone] Referral ID Status Reason Start Date Expiration Date Visits V isits Requested Authorized [id number] New Request 06/19/2021 1 1 adiology Services (Routine/Next Available) - Receiving Office to Obtain Authorization Specialty Diagnoses / Procedures Referred By Contact Refer red To Contact Osteoporosis Diagnoses Fall, initial encounter Tod Perez NP [facility] Endocrinology Procedures DXA DUAL XRAY ABSORPTIOMETRY FOR BONE DENSITY ([facility] PERFORMED) [address] Phone: [phone] Referral ID Status Reason Start Expiration Visits Visits Date Date Requested Authorized [id number] Receiving Office 06/19/2021 1 1 to Obtain Authorization Laboratory Services (Routine/Next Available) - New Request Specialty Diagnoses / Procedures Referred By Contact Refer red To Contact Diagnoses History of seronegative inflammatory arthritis Encounter for long-term (current) use of medications Tod Perez NP Procedures COMPREHENSIVE METABOLIC PANEL (CMP) [address] [place] [phone] Referral ID Status Reason Start Date Expiration Date Visits V isits Requested Authorized [id number] New Request 06/19/2021 1 1 Laboratory Services (Routine/Next Available) - New Request Specialty Diagnoses / Procedures Referred By Contact Refer red To Contact Diagnoses History of seronegative inflammatory arthritis Encounter for long-term (current) use of medications Tod Peerz NP Procedures COMPLETE BLOOD COUNT AND DIFFERENTIAL [address] [phone] Referral ID Status Reason Start Date Expiration Date Visits V isits Requested Authorized [id number] New Request 06/19/2021 1 1 Reason for Visit Reason Comments Follow-up 3 month Joint Pain Nothing to mention - Inabili ty to stay on feet. 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 TECHNICIAN Encounter for long-term (current) use of medications; Immunology - Main [address] [place] Fall, in itial encounter; [address] Screening for osteoporosis [address] [place] [address] [place], [facility] [phone] (Wo rk) Social History Tobacco Use Types [...] Sign Reading Time Taken Comments Blood Pressure 140/78 06/19/2021 1158 EST Pulse 76 06/19/2021 1158 EST Temperature - - Respiratory Rate 18 06/19/2021 1158 EST Oxygen Saturation - - Inhaled Oxygen Concentration - - Weight 101.6 kg (224 lb) 06/19/2021 1158 EST Height 181.6 cm (5' 11.5) 06/19/2021 1158 EST Body Mass Index 30.81 06/19/2021 1158 EST documented in this encounter Functional Status Functional [...] of this encounter Patient Instructions Patient InstructionsTod Perez, BOILER ATTENDANT - 06/19/2021 12:00 EST 1. Continue on sulfasalazine 2 tabs orally daily 2. Please get labs monthly x 2, then if stable every 3-4 months 3. DXA for [facility] For when you get back to [place] to screen for osteoporosis 4. Recommend shingrix - sign up with pharmacist 5. Recommend compression stockings daily Vaccine Information Statement: Shingrix 6. F/u 4-5 months in person wear extra sun screen as the sulfasalazine can make you burn easier Recombinant Zoster (Shingles) Vaccine, RZV: What you need to know Many Vaccine Information Statements are available in Maltese and other languages. See www.immunize.org/vis Hojas de Informaci??n Sobre Vacunas est??n disponibles en Espa??ol y en muchos otros idiomas. Visitehttp://www.immunize.org/vis 1. Why get vaccinated? Shingles (also called herpes zoster, or just zoster) is a painful skin rash, often with blisters. Shingles is caused by the varicella zoster virus, the same virus that causes chickenpox. After you havechickenpox, the virus stays in your body and can cause shingles later in life. You can???t catch shingles from another person. However, a person who has never had chickenpox (or chickenpox vaccine) could get chickenpox from someone with shingles. A shingles rash usually appears on one side of the face or body and heals within 2 to 4 weeks. Its main symptom is pain, which can be severe. Other symptoms can include fever, headache, chills, and upset stomach. Very rarely, a shingles infection can lead to pneumonia, hearing problems, blindness, brain inflammation (encephalitis), or . For about 1 person in 5, severe pain can continue even long after the rash has cleared up. This long-lasting pain is called post-herpetic neuralgia (PHN). Shingles is far more common in people 50 years of age and older than in younger people, and the riskincreases with age. It is also more common in people whose immune system is weakened because of a disease such as cancer, or by drugs such as steroids or chemotherapy. At least 1 million people a year in the [place] get shingles. 2. Shingles vaccine (recombinant) Recombinant shingles vaccine was approved by FDA in 2017 for the prevention of shingles. In clinicaltrials, it was more than 90% effective in preventing shingles. It can also reduce the likelihood of PHN. Two doses, 2 to 6 months apart, are recommended for adults 50 and older. This vaccine is also recommended for people who have already gotten the live shingles vaccine (Zostavax). There is no live virus in this vaccine. 3. Some people should not get this vaccine Tell your vaccine provider if you: ??? Have any severe, life-threatening allergies. A person who has ever had a life-threatening allergic reaction after a dose of recombinant shingles vaccine, or has a severe allergy to any component ofthis vaccine, may be advised not to be vaccinated. Ask your health care provider if you want information about vaccine components. ??? Are or . There is not much information about use of recombinant shingles vaccine in or nursing women. Your healthcare provider might recommend delaying vaccination. ??? Are not feeling well. If you have a mild illness, such as a cold, you can probably get the vaccine today. If you are moderately or severely ill, you should probably wait until you recover. Your doctor can advise you. 4. Risks of a vaccine reaction With any medicine, including vaccines, there is a chance of reactions. After recombinant shingles vaccination, a person might experience: ??? Pain, redness, soreness, or swelling at the site of the injection ??? Headache, muscle aches, fever, shivering, fatigue In clinical trials, most people got a sore arm with mild or moderate pain after vaccination, and some also had redness and swelling where they got the shot. Some people felt tired, had muscle pain, a headache, shivering, fever, stomach pain, or nausea. About 1 out of 6 people who got recombinant zoster vaccine experienced side effects that prevented them from doing regular activities. Symptoms went away on their own in about 2 to 3 days. Side effects were more common in younger people. You should still get the second dose of recombinant zoster vaccine even if you had one of these reactions after the first dose. Other things that could happen after this vaccine: ??? People sometimes faint after medical procedures, including vaccination. Sitting or lying down for about 15 minutes can help prevent fainting and injuries caused by a fall. Tell your provider if youfeel dizzy or have vision changes or ringing in the ears. ??? Some people get shoulder pain that can be more severe and longer-lasting than routine soreness that can follow injections. This happens very rarely. ??? Any medication can cause a severe allergic reaction. Such reactions to a vaccine are estimated at about 1 in a million doses, and would happen within a few minutes to a few hours after the vaccination. As with any medicine, there is a very remote chance of a vaccine causing a serious injury or . The safety of vaccines is always being monitored. For more information, visit: www.cdc.gov/vaccinesafety/ 5. What if there is a serious problem? What should I look for? Look for anything that concerns you, such as signs of a severe allergic reaction, very high fever, or unusual behavior. Signs of a severe allergic reaction can include hives, swelling of the face and throat, difficulty breathing, a fast heartbeat, dizziness, and weakness. These would usually start a few minutes to a fewhours after the vaccination. What should I do? If you think it is a severe allergic reaction or other emergency that can???t wait, call or get to the nearest hospital. Otherwise, call your health care provider. Afterward, the reaction should be reported to the Vaccine Adverse Event Reporting System (VAERS). Your doctor should file this report, or you can do it yourself through the VAERS website at www.vaers.hhs.gov, or by calling . VAERS does not give medical advice. 6. How can I learn more? Ask your health care provider. He or she can give you the vaccine package insert or suggest other sources of information. ??? Call your local or state health department. ??? Contact the [facility] Disease Control and Prevention (CDC): - Call (2-440-BFO-INFO) or - Visit CDC???s website at www.cdc.gov/vaccines Vaccine Information Statement Recombinant Zoster Vaccine 07/28/2017 Department of Health and Human Services Centers for Disease Control and Prevention Office Use Only documented in this encounter Ordered Prescriptions Prescription Sig Dispensed Refills Start Date End Date sulfaSALAzine (AZULFIDINE) 1 tab twice daily 180 Tablet 3 500 mg tablet documented in this encounter Progress Notes Tod Perez APRN - 06/19/2021 1200 EST Images from the original note were not included. Patient ID: Deon Villanueva is a 75 y.o. y.o. male Subjective: Chief Complaint: Follow-up (3 month) and Joint Pain (Nothing to mention - Inability to stay on feet.Feel and Fractured his pelvis (Right Sided) Fell about a month ago ) HPI: ?? Pertinent Rheumatological History: 1. Seronegative [...] ? SUBJECTIVE: Mr. Deon Villanueva is a 75 y.o. male with history of seronegative inflammatory polyarthritis and degenerative disc disease who presents today for a follow-up visit. ?? 04/03/2021 Alecia Saavedra at [facility] is concerned for MTX ILD/fibrosis. Reviewed [...] pounds (lbs) Duration of AM joint stiffness hours / min Eye pain or dryness X Numbness/tingling X Mouth or nose sores X Heart burn / Nausea X Chest pain X Diarrhea X Shortness of Breath X Blood in stool X Cough X Burning on urination X Skin rash X Hand/Foot color change in cold X moderna #1 and #2 #3 HD flu completed 2020 Fell 05/25/21 inferior pubic ramus non displaced fracture, was getting out of the truck, No LOC, hit rocker panel and hit ground, Has not had a DXA SSZ 2 tabs daily doing well, no SE, no joint swelling On doxycycline for his skin with Derm, PCP recommended 6 months of treatment, his declined Denies any other joint pains or swelling. AM stiffness: Some Physical activity: Walks 5-6 miles per day Patient Active Problem List Diagnosis ??? Chest pain ??? Light headed ??? Sick sinus syndrome (HCC-CMS) (HCC) ??? Pacemaker ??? Sleep apnea ??? Hypertension ??? GERD (gastroesophageal reflux disease) ??? Hypercholesteremia ??? Enlarged prostate ??? Left hand weakness ??? History of seronegative inflammatory arthritis ??? Facial rash ??? Exertional chest pain ??? Coronary artery disease involving [place] coronary artery of [place] heart without angina pectoris ??? PV (polycythemia vera) (HCC-CMS) (HCC) Past Medical History: Diagnosis Date ??? Arthritis [...] ??? aspirin 81 mg EC tablet ??? doxycycline (VIBRA-TABS) 100 mg tablet ??? finasteride (PROSCAR) 5 mg tablet ??? hydroxyurea (HYDREA) 500 mg capsule ??? metoprolol XL (TOPROL-XL) 25 mg tablet ??? omeprazole (PRILOSEC) 40 mg capsule ??? simvastatin (ZOCOR) 40 mg tablet ??? sulfaSALAzine (AZULFIDINE) 500 mg tablet No current facility-administered medications for this visit. ROS - SEE HPI I reviewed the 10 point ROS performed by the nurse which is as documented in Prism. Objective: BP 140/78 (BP Cuff Location: Left arm) Pulse 76 Resp 18 Ht 181.6 cm (71.5) Wt (!) 101.6 kg (224 lb) BMI 30.81 kg/m?? General: No acute distress. Alert, fully oriented, pleasant, conversant. HEENT: Conjunctivae/corneas clear. Pupils equal, Sclerae anicteric. Mucus membranes moist; oropharynx clear. Neck supple, symmetrical, trachea midline maxillary sinus tender to palpation bilaterally Lungs: Clear to auscultation bilaterally. Cough present Heart: Regular rate and rhythm, S1, S2 present, no murmur Abdomen: Soft, non-tender, non-distended. Extremities: Extremities without cyanosis, 1+ edema bilateral legs Skin: clear Musculoskeletal: Spine: [...] present. Appropriate range of motion present. LABS: ??Results for DEON VILLANUEVA ( ) as of 04/03/2021 08:53 Ref. Range 12/28/2020 12:39 Sodium Latest Ref Range: 136 - 145 mEq/L 139 Potassium Latest Ref Range: 3.5 - 5.0 mEq/L 4.8 Chloride Latest Ref Range: 96 - 110 mEq/L 101 CO2 Latest Ref Range: 22 - 32 mEq/L 24 BUN Latest Ref Range: 10 - 26 mg/dL 16 Creatinine Latest Ref Range: 0.66 - 1.25 mg/dL 1.04 Glucose, Serum Latest Ref Range: 70 - 100 mg/dL 108 (H) Calcium Latest Ref Range: 8.5 - 10.5 mg/dL 9.5 Calculated Calcium Latest Ref Range: 8.5 - 10.5 mg/dL 9.2 Total Protein Latest Ref Range: 6.3 - 8.2 g/dL 6.9 Albumin Latest Ref Range: 3.4 - 4.9 g/dL 4.4 AST Latest Ref Range: 15 - 46 U/L 39 ALT Latest Ref Range: <50 U/L 18 Bilirubin, Total Latest Ref Range: <1.4 mg/dL 0.8 Total Alkaline Phosphatase Latest Ref Range: 38 - 126 U/L 58 GFR, Calculated Latest Ref Range: >60 mL/min/1.73m2 69 WBC Latest Ref Range: 4.00 - 10.40 K/cmm 5.77 RBC Latest Ref Range: 4.36 - 5.78 M/cmm 4.75 Hemoglobin Latest Ref Range: 13.8 - 17.3 gm/dL 13.5 (L) HCT Latest Ref Range: 39.5 - 50.2 % 42.6 MCV Latest Ref Range: 81 - 95 fl 90 MCH Latest Ref Range: 27.6 - 33.0 pg 28.4 MCHC Latest Ref Range: 32.8 - 36.4 gm/dL 31.7 (L) RDW-CV Latest Ref Range: <14.2 % 20.1 (H) RDW-SD Latest Ref Range: <46.0 fl 64.3 (H) PLT Latest Ref Range: 141 - 377 K/cmm 286 MPV Latest Ref Range: 9.5 - 12.7 fl 12.5 Neutrophils Latest Units: % 65.8 Lymphocytes Latest Units: % 20.1 Monocytes Latest Units: % 7.6 Eosinophils Latest Units: % 4.9 Basophils Latest Units: % 0.7 Immature Grans Latest Units: % 0.9 ABS Neutrophils Latest Ref Range: 2.20 - 8.85 K/cmm 3.80 ABS Lymphs Latest Ref Range: 1.09 - 3.30 K/cmm 1.16 ABS Monocytes Latest Ref Range: 0.10 - 0.80 K/cmm 0.44 ABS Eosinophils Latest Ref Range: 0.03 - 0.61 K/cmm 0.28 ABS Basophils Latest Ref Range: 0.01 - 0.11 K/cmm 0.04 ABS Immature Grans Latest Ref Range: 0.00 - 0.06 K/cmm 0.05 Type of Diff: Unknown Auto Lyme AB Latest Ref Range: Negative Negative Results: SURGICAL PATHOLOGY Status: Final result (Collected: 10/23/2016 18:29) ?? SURGICAL PATHOLOGY Status: Final result ?Visible to patient: Yes ([employer] Online) Next appt: 05/25/2018 at 11:40 inRheumatology (Sudhir Rosales MD) Order: [id number] ? 1yr ago ?? Pathology Report: SURGICAL PATHOLOGY REPORT Reports generated via electronic interface contain original data; however they are lacking the format of the original report. Caution should be taken when reading/interpreting unformatted reports. Name: ? ANTONIALORRAINE DEON Jeong ? Accession #: ? [id number] ? : ? 1945 (Age: 71) ??M ?Collect Date: ? 10/23/2016 ? Location: ? [facility] ? Receive Date: ? 10/24/2016 ? Provider: SHREYA LEA MD Copy to: MINDY MONTILLAP ? Final Pathologic Diagnosis: A. ??GASTROESOPHAGEAL JUNCITON, [...] Status: Final result ?Visible to patient: Yes ([facility]) Next appt: 05/25/2018 at 11:40 inRheumatology (Sudhir Rosales MD) Order: [id number] ? 1yr ago ?? Pathology Report: SURGICAL PATHOLOGY REPORT Reports generated via electronic interface contain original data; however they are lacking the format of the original report. Caution should be taken when reading/interpreting unformatted reports. Name: ? ANTONIADEON PETERS ? Accession #: ? [id number] ? : ? 1945 (Age: 71) ??M ?Collect Date: ? 10/23/2016 ? Location: ? [facility] ? Receive Date: ? 10/24/2016 ? Provider: SHREYA LEA MD Copy to: MINDY SZYMANSKI DENTAL HYGIENE PROFESSOR ? Final Pathologic Diagnosis: A. ??GASTROESOPHAGEAL JUNCITON, [...] in B1. Ann Moscoso 10/25/2016 7:55 AM ?XR CHEST 2 VIEWS (Order [id number]) Status: Final result (Exam End: 05/19/2020 16:15) Results XR CHEST 2 VIEWS ( (Order [id number]) XR CHEST 2 VIEWS Order: [id number] Status: Final result ?Visible to patient: Yes (MyChart) Next appt: None Details Reading Physician Reading Date Result Priority Dustin Ibrahim MD [phone] 05/19/2020 Narrative & Impression EXAM: RADIOLOGY/CHEST PA [...] Ibrahim MD XR CHEST 2 VIEWS (Order [id number]) Status: Final result (Exam End: 11/09/2020 16:33) Results XR CHEST 2 VIEWS ( (Order [id number]) XR CHEST 2 VIEWS Order: [id number] Status: Final result ?Visible to patient: Yes (seen) Next appt: 01/22/2021 at 10:45 in Cardiology(Claire Lopez APRN) 0 Result Notes Details Reading Physician Reading Date Result Priority Gerald Garcia MD [phone] 11/09/2020 Narrative & Impression EXAM: RADIOLOGY/CHEST PA LAT EX. D/ (1627) CLINICAL INFORMATION: SOB/cp PROCEDURE INFORMATION: Exam: XR [...] Reported By: Gerald CAMPBELL Summary Functional Status: 2 Pain Tolerance: 0 - No Pain Global Estimate: .5 Score: 2.5 Interpretation: NearRemission ASSESSMENT: 1.Inflammator arthritis doing well on SZZ 500mg BID started around 02/2021 as Alecia Saavedra at [facility] is concerned for MTX ILD/fibrosis. Doing well without SE and no joint swelling or pain. Continue current meds. 2. 03/27/21 ECHO EF 55-60%, aortic valve sclerotic with mild to moderate aortic regurgitation, mild mitral annual calcification, trace mitral regurgitation, trace triscupid regurgitation, IVC could notbe assessed d/t poor imaging quality. All other structures normal. 3. 04/03/2021 Alecia Saavedra at [facility] is concerned for MTX ILD/fibrosis. Reviewed that MTX 25mg po weekly completely resolved his hand swelling, but will try him on SSZ, altarava. I would prefer to avoid biologics as he has been so MTX responsive. 3. Labs monthly x 2, then every 3-4 months Given ext labs for [place] and for [facility]. 4. Polycythemia vera -followed by Dr. Barillas Hematology/Oncology On hydrea and aspirin 81mg. Not needing phlebotomy at this time as CBC and abs neutrophils normalized - 12/28/2020 doing well 5. moderna #1 and #2 and #3 6. HD flu 2020 complete 7. Rash to face, head and scalp. Seen by pulmonary and PCP. Greatly improved with doxy. PCP recommend 6 months of doxy but pt's declined. 8 05/25/21 Fell 05/25/21 inferior pubic ramus non displaced fracture, was getting out of the truck, No LOC, hit rocker panel and hit ground, Will order DXA as he is >70 and most recent fx 9 dependent edema 2+ has been taking a break from his compression stockings 10 recommend shingrix No diagnosis found. PLAN: 1. Continue on sulfasalazine 2 tabs orally daily 2. Please get labs monthly x 2, then if stable every 3-4 months 3. DXA for [facility] For when you get back to [place] to screen for osteoporosis 4. Recommend shingrix - sign up with pharmacist 5. Recommend compression stockings daily Vaccine Information Statement: Shingrix 6. F/u 4-5 months in person No diagnosis found. No orders of the defined types were placed in this encounter. Barriers to learning identified: No Patient verbalizes understanding and agrees with plan Yes I was directly supervised by: Dr. Warner They were present in clinic and available for consult if needed. Tod Perez APRN 06/19/2021 12:15 I spent a total of 30 minutes on the date of this encounter meeting with the patient and reviewing documentation/coordinating care as described in the above note.No procedures were performed at the time of the visit. documented in this encounter Plan of Treatment Upcoming Encounters Date Type Specialty Care Team Description 12/27/2021 Office Visit Hematology and Erin Barillas M D Oncology [address] [place] [phone] (Joi diallo) 02/14/2022 Office Visit Hematology and Erin Barillas M D Oncology [address] [phone] (Joi diallo) 04/25/2022 Ancillary Procedure Cardiology 04/25/2022 Office Visit Cardiology Claire Lopez NP [address] [facility] [address] [place] [address] (Joi diallo) 05/13/2022 Office Visit Rheumatology Tod Perez NP [address] [phone] (Joi diallo) Scheduled Orders Name Type Priority Associated Diagnoses Order S chedule COMPLETE BLOOD COUNT AND Lab Routine History of Exp ected: 06/19/2021 DIFFERENTIAL seronegative (Approximate), inflammatory art hritis Expires: 06/19/2022 Encounter for long-term (current) use of medications COMPREHENSIVE METABOLIC Lab Routine History of Expe cted: 06/19/2021 PANEL (CMP) seronegative (Approximate), inflammatory art hritis Expires: 06/19/2022 Encounter for long-term (current) use of medications DXA DUAL XRAY Imaging Routine Fall, initial Expected: , ABSORPTIOMETRY FOR BONE encounter Expi res: 06/19/2022 DENSITY ([facility] PERFORMED) COMPLETE BLOOD COUNT AND Lab Routine History of Mon ths - Every 1 DIFFERENTIAL seronegative (Monthly) for 1 2 inflammatory art hritis Occurrences starting Encounter for 06/19/2021 unt il long-term (current) 06/19/19 23 use of medicatio ns Fall, initial encounter Screening for osteoporosis COMPREHENSIVE METABOLIC Lab Routine History of Lizandro hs - Every 1 PANEL (CMP) seronegative (Monthly) for 1 2 inflammatory art hritis Occurrences starting Encounter for 06/19/2021 unt il long-term (current) 06/19/19 23 use of medicatio ns Fall, initial encounter Screening for osteoporosis documented as of this encounter Visit Diagnoses Diagnosis History of seronegative inflammatory art hritis - Primary Encounter for long-term (current) use of medications Encounter for long-term (current) use of other medications Fall, initial encounter Screening for osteoporosis Special screening for osteoporosis documented in this encounter Discontinued Medications Medication Sig Discontinue Reason Start Date End Date sulfaSALAzine Take 1 tab daily Reorder 06/11/2021 06/19/2021 (AZULFIDINE) 500 mg for 7-14 days then tablet increase to 1 tab in am and 1 tab in pm- check labs after 30 days documented as of this encounter Care Teams Interactive Developer Relationship Specialty Start Date End Date Layne Cai MD PCP - General 04/05/20 [address] [place] [phone] Claire Lopez NP Cardiovascular Disease 11/22/20 [address] [facility] [place] [address] Tod Perez NP Rheumatology 12/28/[address] [place] [address], [address] [place] [phone] documented as of this encounter
--- OUTSIDE RECORDS SUMMARY | 2021-12-21 01:19 | XMS_ITS | Encounter Summary ---
:1945 Author Organization [facility] Address [address] [place] [address] Care Team Providers Name Role Phone Layne Cai MD Primary Care Provider Claire Lopez MEDICAL BILLER Unavailable Tod Perez MEDICAL BILLER Unavailable Reason for Visit Reason Onset Date Comments Medications Refill 05/13/2021 Encounter Details Date Type Department Care Team Description 05/13/2021 Refill [facility] Erin Barillas MD Medications Refill Hematology & Oncology - [address] 2 [place], [place] [address] [place] [address] [phone] (Wo rk) Social History Tobacco Use [...] 1 11/08/2021 mg capsule mouth daily. documented in this encounter Plan of Treatment Upcoming Encounters Date Type Specialty Care Team Description 12/27/2021 Office Visit Hematology and Erin Barillas M D Oncology [address] [place] [phone] (Wo rk) 02/14/2022 Office Visit Hematology and Erin Barillas M D Oncology [address] [place] [phone] (Wo rk) 04/25/2022 Ancillary Procedure Cardiology 04/25/2022 Office Visit Cardiology Claire Lopez NP [address] [place] [phone] (Wo rk) 05/13/2022 Office Visit Rheumatology Tod Perez NP [address] [phone] (Wo rk) documented as of this encounter Visit Diagnoses Not on filedocumented in this encounter Discontinued Medications Medication Sig Discontinue Reason Start Date End Date hydroxyurea (HYDREA) 500 TAKE ONE CAPSULE BY Reorder 05/13/2021 mg capsule MOUTH EVERY DAY documented as of this encounter Care Teams Dinkey Brakeman Relationship Specialty Start Date End Date Layne Cai MD PCP - General 04/05/20 26 [place] [address] Claire Lopez NP Cardiovascular Disease 11/22/20 130 [facility] 21 [place] [phone] Tod Perez NP Rheumatology 12/28/20 111 [facility], Level 5 [place] [address] documented as of this encounter
--- OUTSIDE RECORDS SUMMARY | 2021-12-21 01:19 | XMS_ITS | Encounter Summary ---
:1945 Author Organization [facility] Address [address] [place] [address] Care Team Providers Name Role Phone Layne Cai MD Primary Care Provider Claire Lopez CLINICAL RN MANAGER Unavailable Tod Perez CLINICAL RN MANAGER Unavailable Reason for Visit Reason Comments Follow-up Encounter Details Date Type Department Care Team Description 11/15/2021 Office Visit [facility] Erin Barillas MD Polycythemia vera Hematology & [address] [place] [address] ([facility]) (Primar y Dx) Oncology - [facility], [address], [address] 2 [place], [place] [address] [place] [address] [phone] (Wo rk) Social History Tobacco Use [...] Sign Reading Time Taken Comments Blood Pressure 152/76 11/15/2021 1016 EDT Pulse 77 11/15/2021 1016 EDT Temperature 36.1 ??C (96.9 ??F) 11/15/2021 1016 EDT Respiratory Rate 18 11/15/2021 1016 EDT Oxygen Saturation 98% 11/15/2021 1016 EDT Inhaled Oxygen Concentration - - Weight 103 kg (227 lb 1.6 oz) 11/15/2021 1016 EDT Height 181.8 cm (5' 11.58) 11/15/2021 1016 EDT Body Mass Index 31.17 11/15/2021 1016 EDT documented in this encounter Functional Status [...] TAKE 1 CAPSULE BY 90 capsule 1 07/2021 mg capsule MOUTH DAILY documented in this encounter Progress Notes Erin Barillas MD - 11/15/2021 1000 EDT DATE: 11/15/21 HEMATOLOGIC HISTORY: Mr. Villanueva is a 76 y.o. gentleman with past medical history of Hypertension, Hyperlipidemia, Arthritis (followed by Dr. Rosales), currently on Sulfasalazine, BPH, history of sinus bradycardia and Type 2 sinoatrial exit block, s/p pacemaker placement and varicose veins. Referred to Hematology in November, for evaluation of Polycythemia vera. Labs showed BCR-ABL negative, Epo low, JAK2 positive. 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 He has not had a bone marrow biopsyand reports no history of blood clots. He was initially started on hydroxyurea 500 mg po bid, but developed cytopenias. His dose was decreased to Hydroxyurea 500 mg po daily. He receives intermittent phlebotomy. INTERVAL HISTORY: Praneeth returns to the clinic today with his spouse. Received phlebotomy in [place], [place] in August 2021.Tolerated this well. Continues to take Hydrea 500mg daily without any issues. No specific concerns today. BP elevated in the clinic but reports that it runs in SBP 120-130s at home. REVIEW OF SYSTEMS: The remainder of a 10-point review of systems, as filled out on the patient's symptom report form, is otherwise negative. SOCIAL HISTORY: Retired. Worked for the [employer]. Former smoker with 20 pack year smoking history, quit 40 years ago. 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 Family history: No family history of cancer, thrombosis or other blood disorders that patient is aware of. PHYSICAL EXAM: Vitals were not performed for this video visit. General: Well- appearing, in no acute distress. Alert and oriented to person, place, date and time. HEENT: Normocephalic. Resp: Lungs clear to auscultation Ext: No edema. Skin: Left upper extremity skin lesion noted. Labs: Reviewed in [facility] 46% Labs ordered, reviewed and interpreted by me today JAK2 V617F mutation testing is positive. Epo 1.6 (Low) ASSESSMENT: Praneeth Villanueva is a 76 y.o. male with a JAK2 positive myeloproliferative neoplasm, Polycythemia vera.He was started on hydroxyurea 1,000 mg daily in November, but this was complicated by cytopenias. He is now on hydroxyurea 500 mg po daily which is well tolerated. Also undergoes intermittent phlebotomy. PLAN: 1. Continue Hydrea 500mg daily 2. Recommend phlebotomy to maintain goal Hct <45. Will arrange for this at [facility] per patient request 3. Will send repeat lab orders for CBC with Diff, CMP to [facility] 4. Recommend yearly whole body skin examination given increased risk of secondary skin cancers whileon Hydrea. He has a juvenile court liaison that he sees locally and will follow up regarding this 5. Up to date with COVID vaccination series and booster. He is thinking about getting the 4th booster. 6. Follows with pulmonary for lung nodules. Next CT scan due in February 2022. RTC in 3 months Erin Barillas MD I spent 40 minutes related to this patient's care today, which includes time with the patient, time reviewing medical records and reviewing imaging reports and laboratory results, time updating the chart information, and time composing this note. documented in this encounter Plan of Treatment Upcoming Encounters Date Type Specialty Care Team Description 12/27/2021 Office Visit Hematology and Erin Barillas M D Oncology 111 [facility] 2 [place] [phone] (Wo rk) 02/14/2022 Office Visit Hematology and Erin Barillas M D Oncology [address] [place] [phone] (Wo rk) 04/25/2022 Ancillary Procedure Cardiology 04/25/2022 Office Visit Cardiology Claire Lopez NP [address] [phone] (Wo rk) 05/13/2022 Office Visit Rheumatology Tod Perez NP 111 [facility], [facility] 5 [place] [address] (Wo rk) documented as of this encounter Visit Diagnoses Diagnosis Polycythemia vera (HCC) - Primary documented in this encounter Discontinued Medications Medication Sig Discontinue Reason Start Date End Date doxycycline (VIBRA-TABS) Take 100 mg by mouth 11/15/2021 100 mg tablet 2 times daily. hydroxyurea (HYDREA) 500 TAKE 1 CAPSULE BY Reorder 11/13/2021 11/15/2021 mg capsule MOUTH DAILY documented as of this encounter Care Teams Mercury Cracking Tester Relationship Specialty Start Date End Date Layne Cai MD PCP - General 04/05/[address] [place] [phone] Claire Lopez NP Cardiovascular Disease 11/22/20 [facility] [address] [phone] Tod Perez NP Rheumatology 12/28/[address] [place] [address], [facility] 5 [place] [phone] documented as of this encounter
--- OUTSIDE RECORDS SUMMARY | 2021-12-21 01:19 | XMS_ITS | Encounter Summary ---
:1945 Author Organization [facility] Address [address] [place] [address] Care Team Providers Name Role Phone Layne Cai MD Primary Care Provider Claire Lopez NP Unavailable Tod Perez FRAUD ANALYST Unavailable Encounter Details Date Type Department Care Team Description 08/09/2021 Abstract [facility] Juanjose Perez NP Rheumatology & Immunology - 111 [facility], [address], [address] [place], [place] [phone] [place] [phone] (Wo rk) Social History Tobacco Use [...] Erin Barillas M D Oncology [address] [phone] (Wo rk) 02/14/2022 Office Visit Hematology and Erin Barillas M D Oncology [address] [place] [phone] (Wo rk) 04/25/2022 Ancillary Procedure Cardiology 04/25/2022 Office Visit Cardiology Claire Lopez , FESTUS 130 [facility] [address] [phone] (Wo rk) 05/13/2022 Office Visit Rheumatology Tod Perez NP 111 [facility], [address] [phone] (Wo rk) documented as of this encounter Procedures Procedure Name Priority Date/Time Associated Diagnosis Comme nts COMPLETE BLOOD COUNT AND Routine 07/25/2021 Res ults for this DIFFERENTIAL procedure are i n the results section . COMPREHENSIVE METABOLIC Routine 07/25/2021 Resu lts for this PANEL (CMP) procedure are i n the results section . documented in this encounter Results COMPLETE BLOOD COUNT AND DIFFERENTIAL (07/25/2021) Pathologist Sig nature WBC, External 6.6 [facility] RBC, External 5.40 [facility] Hemoglobin, External 13.8 [facility] HCT, External 48.0 [facility] MCV, External 88.9 [facility] MCH, External 25.6Comment: [facility] Low MCHC, External 28.8Comment: [facility] Low PLT, External 214 [facility] RDW-CV, External 16.9Comment: [facility] High Neutrophils, 70.2 [facility] External Lymphocytes, 19.7 [facility] External Monocytes, External 9.0 [facility] Eosinophils, 0.0 [facility] External Basophils, External 0.6 [facility] ABS Neutrophils, 4.63 [facility] External ABS Lymphs, External 1.30 [facility] ABS Monocytes, 0.59 [facility] External ABS Eosinophils, 0.00 [facility] External ABS Basophils, 0.04 [facility] External Specimen Blood - Venous blood (substance) Performing Organization Address City/State/[facility] Code Phon e Number [facility] COMPREHENSIVE METABOLIC PANEL (CMP) (07/25/2021) Pathologist Sig nature GFR, Calculated, 65 [facility] External Glucose, Serum, 138Comment: [facility] External High Albumin, External 4.7 [facility] Total Alkaline 113 [facility] Phosphatase, External ALT, External 12 [facility] AST, External 17 [facility] BUN, External 18 [facility] Calculated Calcium, [facility] External Calcium, External 9.4 [facility] Chloride, External 101 [facility] CO2, External 26 [facility] Creatinine, External 1.15 [facility] Fasting?, External [facility] Potassium, External 4.2 [facility] Sodium, External 138 [facility] Total Protein, 7.0 [facility] External Bilirubin, Total, 0.4 [facility] External Specimen Blood - Venous blood (substance) Performing Organization Address City/State/ZIP Code Phon e Number [facility] documented in this encounter Visit Diagnoses Not on filedocumented in this encounter Care Teams Airplane Fueler Relationship Specialty Start Date End Date Layne Cai MD PCP - General 04/05/20 26 [place] [address] Claire Lopez NP Cardiovascular Disease 11/22/20 130 [facility] [address] [phone] Tod Perez NP Rheumatology 12/28/[address] [facility], Level 5 [place] [phone] documented as of this encounter
--- OUTSIDE RECORDS SUMMARY | 2021-12-21 01:19 | XMS_ITS | Encounter Summary ---
:1945 Author Organization [facility] Address [address] [place] [address] Care Team Providers Name Role Phone Layne Cai MD Primary Care Provider Claire Lopez PEDIATRIC INTENSIVE PHYSICIAN Unavailable Tod Perez PEDIATRIC INTENSIVE PHYSICIAN Unavailable Reason for Visit Reason Comments Follow-up Telemedicine Video Visit Encounter Details Date Type Department Care Team Description 05/17/2021 Telemedicine [facility] Cancer Center Rochelle Hilario NP Canceled (Patient) Hematology & Oncology [address] [place], [place] [address] [place] [phone] (Wo rk) Social History Tobacco Use Types [...] and Erin Barillas M D Oncology [address] [phone] (Wo rk) 02/14/2022 Office Visit Hematology and Erin Barillas M D Oncology [address] [place] [phone] (Wo rk) 04/25/2022 Ancillary Procedure Cardiology 04/25/2022 Office Visit Cardiology Claire Lopez NP [address] [place], [place] [address]A [address] [place] [address] (Wo rk) 05/13/2022 Office Visit Rheumatology Tod Perez NP [address] [phone] (Wo rk) documented as of this encounter Visit Diagnoses Not on filedocumented in this encounter Care Teams Third Miller Relationship Specialty Start Date End Date Layne Cai MD PCP - General 04/05/[address] [place] [phone] Claire Lopez NP Cardiovascular Disease 11/22/20 [facility] [address] [place] [address] Tod Perez NP Rheumatology 12/28/[address] [place] [address], [address] [place] [phone] documented as of this encounter
--- OUTSIDE RECORDS SUMMARY | 2021-12-21 01:19 | XMS_ITS | Encounter Summary ---
:1945 Author Organization [facility] Address [address] [place] [address] Care Team Providers Name Role Phone Layne Cai MD Primary Care Provider Claire Lopez INSURANCE PRODUCER Unavailable Tod Perez INSURANCE PRODUCER Unavailable Reason for Visit Reason Onset Date Comments Appointment Related 05/15/2021 Encounter Details Date Type Department Care Team Description 05/15/2021 Telephone [facility] Center Rochelle Hilario NP Appointment Related Hematology & Oncology [address] [place], [place] [address] [place] [address] [phone] (Wo rk) Social History Tobacco Use [...] this encounter Miscellaneous Notes Telephone Encounter - Margaret Zelaya MA - 05/15/2021 1509 EST Called pt for 05/17 appt. No answer. Left message. MARGARET ZELAYA MA 05/15/2021 15:09 documented in this encounter Plan of Treatment Upcoming Encounters Date Type Specialty Care Team Description 12/27/2021 Office Visit Hematology and Erin Barillas M D Oncology [address] [phone] (Wo rk) 02/14/2022 Office Visit Hematology and Erin Barillas M D Oncology [address] [phone] (Wo rk) 04/25/2022 Ancillary Procedure Cardiology 04/25/2022 Office Visit Cardiology Claire Lopez NP 130 [facility] 21 [place] [phone] (Wo rk) 05/13/2022 Office Visit Rheumatology Tod Perez NP [address] [phone] (Wo rk) documented as of this encounter Visit Diagnoses Not on filedocumented in this encounter Care Teams Bottom Polisher Relationship Specialty Start Date End Date Layne Cai MD PCP - General 04/05/20 26 [place] [address] Claire Lopez NP Cardiovascular Disease 11/22/20 130 [facility] 21 [place] [phone] Tod Perez NP Rheumatology 12/28/20 111 [facility], [address] [place] [address] documented as of this encounter
--- OUTSIDE RECORDS SUMMARY | 2021-12-21 01:19 | XMS_ITS | Encounter Summary ---
:1945 Author Organization [facility] Address [address] [place] [address] Care Team Providers Name Role Phone Layne Cai MD Primary Care Provider Claire Lopez BOTTLE GAUGER Unavailable Tod Perez BOTTLE GAUGER Unavailable Encounter Details Date Type Department Care Team Description 06/14/2021 Orders Only [facility] Center Norah Verduzco Polycyth emia vera ([facility]) Hematology & biometrics technician (Prima ry Dx) - [facility] [address] [place] [address] Social History Tobacco Use Types [...] Progress Notes Norah Verduzco RN - 06/14/2021 0914 EST Therapeutic phlebotomy order entered per Alden Quintana NP for 06/19/21 documented in this encounter Plan of Treatment Upcoming Encounters Date Type Specialty Care Team Description 12/27/2021 Office Visit Hematology and Erin Barillas M D Oncology [address] [place] [phone] (Wo rk) 02/14/2022 Office Visit Hematology and Erin Barillas M D Oncology [address] [phone] (Wo rk) 04/25/2022 Ancillary Procedure Cardiology 04/25/2022 Office Visit Cardiology Claire Lopez NP [address] [place] [address] [phone] (Wo rk) 05/13/2022 Office Visit Rheumatology Tod Perez NP 111 [facility] 5 [place] [address] (Wo rk) documented as of this encounter Visit Diagnoses Diagnosis Polycythemia vera (HCC) - Primary documented in this encounter Orders IV Count Last Ordered Date First Ordered Date THERAPEUTIC PHLEBOTOMY 1 06/14/2021 documented in this encounter Care Teams Financial Systems Manager Relationship Specialty Start Date End Date aLyne Cai MD PCP - General 04/05/[address] [place] [phone] Claire Lopez NP Cardiovascular Disease 11/22/20 130 [facility] 2[address]1 [place] [address] Tod Perez NP Rheumatology 12/28/20 111 [facility], [facility] 5 [place] [phone] documented as of this encounter
--- OUTSIDE RECORDS SUMMARY | 2021-12-21 01:19 | XMS_ITS | Encounter Summary ---
:1945 Author Organization [facility] Address [address] [place] [address] Care Team Providers Name Role Phone Layne Cai MD Primary Care Provider Claire Lopez TRIPPER Unavailable Tod Perez TRIPPER Unavailable Reason for Visit Reason Onset Date Comments Other 09/05/2021 Disconnected carelin k box Encounter Details Date Type Department Care Team Description 09/05/2021 Telephone [facility] - Claire Lopez, Ot her (Disconnected [facility] Cardiology Clin ic TRIPPER carelink box) [address] [place] [address] [facility] [address] [place] [address] Social History Tobacco Use Types Packs/Day Years [...] this encounter Miscellaneous Notes Telephone Encounter - Ryann Venegas MA - 10/02/2021 1201 EDT Pt's carelink device is pluged back in and working. Pt has an appt in October with Claire and then a remote check scheduled on 01/21/22 elephone Encounter - Ryann Venegas MA - 09/05/2021 1353 EDT Pt's carelink remote box is currently disconnected per our [employer] carelink site. I have called and left a msg asking pt to please check on his remote box, it is either unplugged at this time or needs to be unplugged and plugged back in to be restarted. I have asked pt to call the office with any questions. documented in this encounter Plan of Treatment Upcoming Encounters Date Type Specialty Care Team Description 12/27/2021 Office Visit Hematology and Erin Barillas M D Oncology 111 [facility] 2 [place] [phone] (Joi diallo) 02/14/2022 Office Visit Hematology and Erin Barillas M D Oncology 111 [facility] 2 [place] [phone] (Joi diallo) 04/25/2022 Ancillary Procedure Cardiology 04/25/2022 Office Visit Cardiology Claire Lopez NP 130 [facility] [address] [place] [phone] (Wo rk) 05/13/2022 Office Visit Rheumatology Tod Perez NP [address] [phone] (Wo rk) documented as of this encounter Visit Diagnoses Not on filedocumented in this encounter Care Teams School Teacher Relationship Specialty Start Date End Date Layne Cai MD PCP - General 04/05/20 [address] [place] [phone] Claire Lopez NP Cardiovascular Disease 11/22/20 130 [facility] [address] [place] [address] Tod Perez NP Rheumatology 12/28/[address] [phone] documented as of this encounter
--- OUTSIDE RECORDS SUMMARY | 2021-12-21 01:19 | XMS_ITS | Encounter Summary ---
:1945 Author Organization [facility] Address [address] [place] [address] Care Team Providers Name Role Phone Layne Cai MD Primary Care Provider Claire Lopez COMMUNITY MENTAL HEALTH SOCIAL WORKER Unavailable Tod Perez COMMUNITY MENTAL HEALTH SOCIAL WORKER Unavailable Reason for Visit Reason Comments Telemedicine Video Visit Follow-up Encounter Details Date Type Department Care Team Description 06/14/2021 Telemedicine [facility] Reshma Hilario Poly cythemia vera Hematology & COMMUNITY MENTAL HEALTH SOCIAL WORKER (HCC) (Primary Dx) Oncology - [address] [place] [address] [address], [place] [address] (Wo rk) Social History Tobacco [...] documented as of this encounter Progress Notes Reshma Hilario, BATSHEVA - 06/14/2021 0800 EST DATE: 06/14/21 The concept of ???Telemedicine?? has been described to the patient. Patient has been informed of the anticipated benefits and possible risks. Patient understands the information provided regarding telemedicine, has had the opportunity to ask questions about this information, and all questions have been answered to patient???s satisfaction. Patient consents for the use of telemedicine in his/her medical care and authorizes the transmission of any relevant medical information to providers and their staff involved in patient???s medical or mental health care. The visit was conducted via Zoom. TELEMEDICINE VIDEO VISIT Today's visit was provided through telemedicine video conferencing: I have reviewed the appropriateness of using video technology with the patient with regards to today's visit. The location of the patient : [place], [place] The location of the provider: [place], [place] The following staff and their role did participate in today's encounter visit: Reshma Hilario APRN HEMATOLOGIC HISTORY: Mr. Villanueva is a 75 y.o. gentleman with past medical history of Hypertension, Hyperlipidemia, Arthritis (followed by Dr. Rosales), currently on weekly oral Methotrexate and folic acid supplements, BPH, history of sinus bradycardia and Type 2 sinoatrial exit block, s/p pacemaker placement and varicose veins. 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 Labs showed BCR-ABL negative, Epo low, JAK2 positive. 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 He has not had a bone marrow biopsy and reports no history of blood clots. He was initially started on hydroxyurea 500 mg po bid, but developed cytopenias. His dose was decreased to hydroxyurea 500 mg po daily. He receives intermittent phlebotomy. INTERVAL HISTORY: Praneeth returns for follow-up. His is with him on video. He states that he is feeling well. He hasnot had any trouble with hydroxyrea. He periodically receives TP intermittently, last on 05/04. He tolerates this fine. He has noticed an acneiform rash that his thinks could be from hydroxyurea. His PCP prescribed doxycycline and this has resolved. They are planning on traveling to [place] from June 26 to mid-September. They're thinking of etablishing care with a recycling collections driver out there, but would prefer not to. REVIEW OF SYSTEMS: The remainder of a 10-point review of systems, as filled out on the patient's symptom report form, is otherwise negative. Outpatient Medications Marked as Taking for the 06/14/21 encounter (Telemedicine) with Reshma Hilario APRN Medication Sig Dispense Refill ??? aspirin 81 mg EC tablet Take 81 mg by mouth daily. ??? doxycycline (VIBRA-TABS) 100 mg tablet Take 100 mg by mouth 2 times daily. ??? finasteride (PROSCAR) 5 mg tablet Take 5 mg by mouth daily. ??? hydroxyurea (HYDREA) 500 mg capsule Take one tablet by mouth daily. 90 capsule 1 ??? metoprolol XL (TOPROL-XL) 25 mg tablet TK 1 T PO D ??? omeprazole (PRILOSEC) 40 mg capsule ??? simvastatin (ZOCOR) 40 mg tablet Take 40 mg by mouth every evening. ??? sulfaSALAzine (AZULFIDINE) 500 mg tablet Take 1 tab daily for 7-14 days then increase to 1 tab in am and 1 tab in pm- check labs after 30 days 60 Tablet 2 SOCIAL HISTORY: Retired. Worked for the [employer]. Former smoker with 20 pack year smoking history, quit 40 years ago. 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 Family history: No family history of cancer, thrombosis or other blood disorders that patient is aware of. PHYSICAL EXAM: Vitals were not performed for this video visit. General: Well- appearing, in no acute distress. Alert and oriented to person, place, date and time. HEENT: Normocephalic. Resp: No distress noted, breathing comfortably on room air. Ext: No edema. Skin: No rashes noted. LABS: Ref. Range 05/21/2021 00:00 WBC, External Unknown 7.51 RBC, External Unknown 4.73 Hemoglobin, External Latest Ref Range: 13.5 - 17.5 13.3 (A) HCT, External Unknown 44.4 MCH, External Unknown 28.1 MCV, External Unknown 93.9 MCHC, External Latest Ref Range: 32.0 - 36.0 30.0 (A) RDW-CV, External Latest Ref Range: 11.8 - 14.1 16.4 (A) PLT, External Unknown 328 ABS Neutrophils, External Unknown 5.48 Neutrophils, External Unknown 72.9 Lymphocytes, External Unknown 17.7 Eosinophils, External Unknown 0.0 Basophils, External Unknown 0.7 ABS Lymphs, External Unknown 1.33 ABS Monocytes, External Unknown 0.60 ABS Eosinophils, External Unknown 0.00 ABS Basophils, External Unknown 0.05 Monocytes, External Unknown 8.0 Ref. Range 05/21/2021 00:00 Sodium, External Unknown 139 Potassium, External Unknown 5.0 Chloride, External Unknown 102 CO2, External Unknown 29.3 BUN, External Unknown 17 Creatinine, External Unknown 1.3 GFR, Calculated, External Unknown 53.53 Glucose, Serum, External Latest Ref Range: 74 - 106 127 (A) Total Protein, External Unknown 7.0 Albumin, External Unknown 3.7 ALT, External Unknown 20 AST, External Unknown 19 Bilirubin, Total, External Unknown 0.4 Alkaline Phosphatase, External Unknown 93 Calcium, External Unknown 9.0 JAK2 V617F mutation testing is positive. Epo 1.6 (Low) ASSESSMENT: Praneeth Villanueva is a 75 y.o. 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 He is now on hydroxyurea 500 mg po daily which is well tolerated. He receives intermittent phlebotomy at [facility], most recently on 05/04 (although I cannot see labs prior to that since December.) His most recent hematocrit level on 05/21/21 was 44 which is at goal. That being said, he is planning on traveling to [place] for 3 months and I think it would make sense to have phlebotomy before he leaves. We'll try to arrange this for 06/19/21, as he needs to be at [facility] for another appointment We'll plan on seeing him back when he returns from [place] in September. PLAN: 1. Schedule phlebotomy ideally on 06/19/21 despite recent hematocrit of 44.4 given upcoming travel. 2. Continue hydroxyurea 500 mg po daily. 3. Continue CBCd every 4 weeks, CMP quarterly- he will likely not have labs for the next 3 months while traveling. 4. Continue aspirin 81 mg po daily for secondary prophylaxis. 5. Follow-up with us in 3 months when returning from [place]. Reshma Hilario NP (Annie) Hematology Oncology I spent a total of 28 minutes on the date of this encounter meeting with the patient and reviewing documentation/coordinating care as described in the above note. No procedures were performed at the time of the visit. documented in this encounter Plan of Treatment Upcoming Encounters Date Type Specialty Care Team Description 12/27/2021 Office Visit Hematology and Erin Barillas M D Oncology [address] [phone] (Joi diallo) 02/14/2022 Office Visit Hematology and Erin Barillas M D Oncology [address] [phone] (Joi rk) 04/25/2022 Ancillary Procedure Cardiology 04/25/2022 Office Visit Cardiology Claire Lopez NP 130 [facility] [address] [phone] (Wo rk) 05/13/2022 Office Visit Rheumatology Tod Perez NP 111 [facility] [address] [place] [address] (Wo rk) documented as of this encounter Visit Diagnoses Diagnosis Polycythemia vera (HCC) - Primary documented in this encounter Discontinued Medications Medication Sig Discontinue Reason Start Date End Date isosorbide MONOnitrate Take 1 Tablet by 03/02/2021 1 (IMDUR) 30 mg CR tablet mouth daily. atorvastatin (LIPITOR) 40 Take 1 Tab by mouth 11/10/19 21 06/14/2021 mg tablet at bedtime. documented as of this encounter Historical Medications This list may reflect changes made after this encounter. Medication Sig Dispensed Refills Start Date End Date simvastatin (ZOCOR) 40 mg Take 40 mg by mouth 0 tablet every evening. doxycycline (VIBRA-TABS) Take 100 mg by 0 11/15/2021 100 mg tablet mouth 2 times daily. added in this encounter Care Teams Research And Evaluation Manager Relationship Specialty Start Date End Date Layne Cai MD PCP - General 04/05/20 [address] [place] [address] Claire Lopez NP Cardiovascular Disease 11/22/20 130 [facility] [address] [place] [address] Tod Perez NP Rheumatology 12/28/20 111 [facility], [facility] [address] [place] [phone] documented as of this encounter
--- OUTSIDE RECORDS SUMMARY | 2021-12-21 01:19 | XMS_ITS | Encounter Summary ---
:1945 Author Organization [facility] Address [address] [place] [address] Care Team Providers Name Role Phone Layne Cai MD Primary Care Provider Claire Lopez MANUFACTURERS AGENT Unavailable Tod Perez MANUFACTURERS AGENT Unavailable Reason for Visit Reason Onset Date Comments Appointment Related 09/27/2021 Encounter Details Date Type Department Care Team Description 09/27/2021 Telephone [facility] Rochelle Hilario NP Appointment Related Hematology & Oncology [address] [place], [place] [address] [place] [address] [phone] (Wo rk) Social History Tobacco Use [...] Notes Telephone Encounter - Karina Bustamante - 09/27/2021 1213 EDT pts 09/27 zoom now on 10/04 due to AB feeling sick documented in this encounter Plan of Treatment Upcoming Encounters Date Type Specialty Care Team Description 12/27/2021 Office Visit Hematology and Erin Barillas M D Oncology [address] [place] [phone] (Wo rk) 02/14/2022 Office Visit Hematology and Erin Barillas M D Oncology [address] [place] [phone] (Wo rk) 04/25/2022 Ancillary Procedure Cardiology 04/25/2022 Office Visit Cardiology Claire Lopez NP 130 [facility] [address] [place] [phone] (Wo rk) 05/13/2022 Office Visit Rheumatology Tod Perez NP 111 [facility], [facility] [address] [place] [address] (Wo rk) documented as of this encounter Visit Diagnoses Not on filedocumented in this encounter Care Teams Aerospace Engineer Relationship Specialty Start Date End Date Layne Cai MD PCP - General 04/05/[address] [place] [phone] Claire Lopez NP Cardiovascular Disease 11/22/20 130 [facility] [address] [place] [address] Tod Perez NP Rheumatology 12/28/[address] [place] [address], [address] [place] [phone] documented as of this encounter
--- OUTSIDE RECORDS SUMMARY | 2021-12-21 01:19 | XMS_ITS | Encounter Summary ---
:1945 Author Organization [facility] Address [address] [place] [address] Care Team Providers Name Role Phone Layne Cai MD Primary Care Provider Claire Lopez ELECTRICIAN HELPER Unavailable Tod Perez ELECTRICIAN HELPER Unavailable Reason for Visit Reason Onset Date Comments Appointment Related 06/19/2021 Encounter Details Date Type Department Care Team Description 06/19/2021 Telephone [facility] Serina Hilario, ELECTRICIAN HELPER Appointment Related Ambulatory Infusion 111 [facility], [address] [place], [place] [address] [place] [address] [phone] (Wo rk) Social History Tobacco Use [...] Notes Telephone Encounter - Robina Mendiola - 06/19/2021 0836 EST Screening Questions prior to Med Release [...] scheduled? If so, does your ordering provideraware? No 5. (for Remicade, Entyvio, Renflexis, Rituximab, Ocrevus, pts, 'mab' patients) Have you had any recent surgeries in the last month or have any planned in the near future? No documented in this encounter Plan of Treatment Upcoming Encounters Date Type Specialty Care Team Description 12/27/2021 Office Visit Hematology and Erin Barillas M D Oncology [address] [phone] (Joi diallo) 02/14/2022 Office Visit Hematology and Erin Barillas M D Oncology [address] [phone] (Joi diallo) 04/25/2022 Ancillary Procedure Cardiology 04/25/2022 Office Visit Cardiology Claire Lopez NP 130 [facility] [address] [place] [phone] (Wo rk) 05/13/2022 Office Visit Rheumatology Tod Perez NP [address] [phone] (Wo rk) documented as of this encounter Visit Diagnoses Not on filedocumented in this encounter Care Teams Toaster Element Repairer Relationship Specialty Start Date End Date Layne Cai MD PCP - General 04/05/[address] [place] [phone] Claire Lopez NP Cardiovascular Disease 11/22/[address] [place] [phone] Tod Perez NP Rheumatology 12/28/[address] [place] [phone] documented as of this encounter
--- OUTSIDE RECORDS SUMMARY | 2021-12-21 01:19 | XMS_ITS | Encounter Summary ---
:1945 Author Organization Address [address] [place] [address] Care Team Providers Name Role Phone Layne Cai MD Primary Care Provider Claire Lopez TOOL CRIB MANAGER Unavailable Tod Perez TOOL CRIB MANAGER Unavailable Reason for Visit Reason Comments Pacemaker/Device Check Medtronic Encounter Details Date Type Department Care Team Description 10/17/2021 Office Visit [facility] Jessica Pacemaker (Primary Dx); - [facility] [place] FESTUS Rangel Coronary artery disease involving [place] coronary artery of [place] heart without angina pectoris; Clinic [address] Primary hypertension; [address] [place] [address] [place], [place] [phone] Social History Tobacco Use Types Packs/Day [...] Sign Reading Time Taken Comments Blood Pressure 148/78 10/17/2021 1445 EDT Pulse 69 10/17/2021 1445 EDT Temperature - - Respiratory Rate - - Oxygen Saturation 98% 10/17/2021 1445 EDT Inhaled Oxygen Concentration - - Weight 105.2 kg (232 lb) 10/17/2021 1445 EDT Height 181.6 cm (5' 11.5) 10/17/2021 1445 EDT Body Mass Index 31.91 10/17/2021 1445 EDT documented in this encounter Functional Status [...] as of this encounter Patient Instructions Patient InstructionsClaire Lopez NP - 10/17/2021 15:00 EDT CONTINUE WITH ROUTINE HOME BP CHECKS IF CONSISTENTLY > 140/90 CALL OUR OFFICE OR MESSAGE IN [facility] documented in this encounter Progress Notes Claire Lopez NP - 10/17/2021 3484 EDT Cardiology Clinic Note 10/17/21 14:57 Presenting complaint: Pacemaker/Device Check (Medtronic) HPI Praneeth is a pleasant 76 yo with multiple medical co-morbidities including inflammatory polyarthropathytreated with methotrexate, hx benign neoplasm of the colon, polycythemia vera, GERD, BPH, stage III CKD, HLD, NATALIE, HTN, sinus node dysfunction s/p single chamber pacemaker who returns to the office forfollow-up. From a cardiac perspective Praneeth is feeling well. He is accompanied today by his , Augustina. They got back to [place] a few weeks ago after spending 3 months in [place]. Have follow up with tester vibrator equipment later this month. Recent Chest CT to f/u presumed methotrexate toxicity showed resolution of atelectasis. Also Praneeth ha had f/u with a sleep doctor who does not believe he has sleep apnea, although in recent days Augustina has noticed more snoring and apneic episodes. His fitbit shows improved sleep scores when he wears his CPAP so he has been doing this lately to see if he feels any better. Reportshaving good days and bad but overall is doing well. Routinely checks his BP at home. For the most part this shows excellent control although for the past few days has been in the 130's/80's. In the past he has become dizzy and does not feel well when on medications that lower his BP. Most recently he had to stop imdur due to feeling unwell while taking the medication. Systems review A 10 point review of systems was performed and pertinent negatives and positives are mentioned above. Past medical history Patient Active Problem List Diagnosis ??? Chest pain ??? Light headed ??? Sick sinus syndrome (HCC-CMS) ([facility]) ??? Pacemaker ??? Sleep apnea ??? Hypertension ??? GERD (gastroesophageal reflux disease) ??? Hypercholesteremia ??? Enlarged prostate ??? Left hand weakness ??? History of seronegative inflammatory arthritis ??? Facial rash ??? Exertional chest pain ??? Coronary artery disease involving [place] coronary artery of [place] heart without angina pectoris ??? PV (polycythemia vera) (HCC-CMS) ([facility]) Past Surgical History: Procedure Laterality Date ??? CARDIAC PACEMAKER PLACEMENT ??? CATARACT REMOVAL bilateral ??? CHOLECYSTECTOMY 2005 ??? EYE SURGERY ??? HERNIA REPAIR Medications Current Outpatient Medications on File Prior to Visit Medication Sig Dispense Refill ??? aspirin 81 mg EC tablet Take 81 mg by mouth daily. ??? doxycycline (VIBRA-TABS) 100 mg tablet Take 100 mg by mouth 2 times daily. (Patient not taking: Reported on 06/19/2021) ??? finasteride (PROSCAR) 5 mg tablet Take 5 mg by mouth daily. ??? hydroxyurea (HYDREA) 500 mg capsule Take one tablet by mouth daily. 90 capsule 1 ??? metoprolol XL (TOPROL-XL) 25 mg tablet TK 1 T PO D ??? metroNIDAZOLE (METROGEL) 0.75 % gel APPLY TO ROSACEA TWO TIMES A DAY FOR 6 WEEKS; THEN ONCE DAILY EVER OTHER DAY ??? omeprazole (PRILOSEC) 40 mg capsule ??? simvastatin (ZOCOR) 40 mg tablet Take 40 mg by mouth every evening. ??? sulfaSALAzine (AZULFIDINE) 500 mg tablet 1 tab twice daily 180 Tablet 3 No current facility-administered medications on file prior to visit. Medication allergies Allergies Allergen Reactions ??? Lisinopril Causes chest pain. ? Myocardial bridging ??? Methotrexate Methotrexate lung fibrosis dx per pulmonary 04/02/21 Fhx/ Shx Family History Problem Relation Age of Onset ??? Diabetes Father ??? Stroke Father ??? Diabetes Brother ??? Arthritis Mother unkown type Social History Socioeconomic History ??? Marital status: Spouse name: Not on file ??? Number of children: Not on file ??? Years of education: Not on file ??? Highest education level: Not on file Occupational History ??? Not on file Tobacco Use ??? Smoking status: Former Smoker Packs/day: 3.00 Years: 20.00 Pack years: 60.00 Types: Cigarettes, Cigars Quit date: 09/15/1980 Years since quittin.1 ??? Smokeless tobacco: Never Used ? ? Tobacco comment: Quit >30 years ago Vaping Use ??? Vaping Use: Never used ??? Passive vaping exposure Yes Substance and Sexual Activity ??? Alcohol use: Yes Comment: Occasional beer ??? Drug use: No ??? Sexual activity: Not on file Other Topics Concern ??? 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 BP re-check 154/80 General - A/Ox3, no acute distress -pleasant, cooperative -WD, WN HEENT -NC/AT - PERRL Chest - Chest expansion symmetrical, respirations unlabored - Lungs CTA throughout all lung hussein - no adventitious breath sounds CVS - regular rate and rhythm - S1, S2 - no murmur Extremities - no edema, distal pulses present, no clubbing Skin - intact Peripheral neurology - no focal deficits [facility] [place] Device Visit Supervisor Inventory Merchandising: Medtronic Device Type: Pacemaker Service: Office Visit Implant Date: 06/27/2020 Indication: Bradycardia Battery Longevity: 9.7 years Underlying rhythm: CHB with rare ventricular escape Mode: VVIR URL/LRL: 130/60 bpm Ventricle Paced: 96.6% Lead Impedance, threshold, and sensing testing all within normal parameters. (See scanned documentation associated with this visit for full details) Impression: Device program evaluation with iterative adjustments were made to test device function and select optimal permanent program values with analysis, review, and report. The leads and device are functioning normally. The patient will follow up In office in 6 months. LABS Lab Results Component Value Date WBC 8.09 06/19/2021 HGB 13.7 (L) 06/19/2021 HCT 45.3 06/19/2021 MCV 90 06/19/2021 PLT 286 06/19/2021 Lab Results Component Value Date CREATININE 1.04 12/28/2020 CREATININEEX 1.28 08/29/2021 Lab Results Component Value Date NA 139 12/28/2020 K 4.8 12/28/2020 KEXT 4.5 08/29/2021 CL 101 12/28/2020 CLEXT 104 08/29/2021 CO2 24 12/28/2020 CO2EXT 25 08/29/2021 Lab Results Component Value Date TSH 0.38 09/15/2013 Lab Results Component Value Date HGBA1C 6.0 04/08/2012 Lab Results Component Value Date CHOL 111 04/08/2012 HDL 22 04/08/2012 LDLBASE 66 04/08/2012 TRIG 117 04/08/2012 CHOLHDL 5.0 04/08/2012 Diagnostics C 11/2020 CORONARY ARTERIES: The coronary circulation is right dominant.?? Left main: Normal. LAD: Minor luminal irregularities. 1st diagonal: Minor luminal irregularities. Unchanged. Left circumflex: Minor luminal irregularities. Right coronary: Minor luminal irregularities. High anterior origin. HEMODYNAMICS: LVEDP 12 There was no gradient across the aortic valve. End diastolic pressure in the left ventricle is normal Nuclear stress test September 2020 ([place]) IMPRESSION: Normal myocardial perfusion without evidence of ischemia or prior infarction. LVEF afterstress 59%. 1. Pacemaker Device functioning normally with ample generator remaining. No arrhythmias. Refer to scanned documents for interrogation details. ?? 2. CAD Non flow limiting disease observed on [facility] 11/2020 involving the LAD, D1, LCx and RCA. Currently without CP symptoms. Previously developed dizziness while on imdur therefore discontinued this medication. ?? 3. Essential hypertension Good BP control on current regimen according to home BP readings, no changes. Recommended routine monitoring of home BP and to notify the office via phone or mychart if readings are consistently > 140/90. Reinforced lifestyle modification through diet, limiting sodium intake, regular activity and maintaining a healthy weight. ?? 4. Hypercholesteremia Continue statin. Lifestyle as above Claire Lopez NP [facility] [place] I spent a total of 40 minutes on the date of this encounter meeting with the patient and reviewing documentation/coordinating care as described in the above note. No procedures were performed at the time of the visit. documented in this encounter Plan of Treatment Upcoming Encounters Date Type Specialty Care Team Description 12/27/2021 Office Visit Hematology and Erin Barillas M D Oncology [address] [place] [phone] (Joi diallo) 02/14/2022 Office Visit Hematology and Erin Barillas M D Oncology [address] [place] [phone] (Joi rk) 04/25/2022 Ancillary Procedure Cardiology 04/25/2022 Office Visit Cardiology Claire Lopez NP 130 [facility] [address] [phone] (Joi diallo) 05/13/2022 Office Visit Rheumatology Tod Perez NP [address] [facility] [phone] (Wo rk) documented as of this encounter Visit Diagnoses Diagnosis Pacemaker - Primary Cardiac pacemaker in situ Coronary artery disease involving [place] coronary artery of [place] heart without angina pectoris Primary hypertension Unspecified essential hypertension Hypercholesteremia Pure hypercholesterolemia documented in this encounter Historical Medications This list may reflect changes made after this encounter. Medication Sig Dispensed Refills Start Date End Date metroNIDAZOLE (METROGEL) APPLY TO ROSAWINNIEA TWO 0 0 10/05/2021 0.75 % gel TIMES A DAY FOR 6 WEEKS; THEN ONCE DAILY EVER OTHER DAY added in this encounter Care Teams Practice Physician Relationship Specialty Start Date End Date Layne Cai MD PCP - General 04/05/[address] [place] [phone] Claire Lopez NP Cardiovascular Disease 11/22/[address] [place] [address] [address] [place] [phone] Tod Perez NP Rheumatology 12/28/[address] [phone] documented as of this encounter
--- OUTSIDE RECORDS SUMMARY | 2021-12-21 01:19 | XMS_ITS | Encounter Summary ---
:1945 Author Organization [facility] Address [address] [place] [address] Care Team Providers Name Role Phone Layne Cai MD Primary Care Provider Claire Lopez SINGING WAITER OR WAITRESS Unavailable Tod Perez SINGING WAITER OR WAITRESS Unavailable Reason for Visit Reason Onset Date Comments Appointment Related 05/16/2021 Encounter Details Date Type Department Care Team Description 05/16/2021 Telephone [facility] Cancer Center Rochelle Hilario NP Appointment Related Hematology & Oncology [address] 2 [place], [place] [phone] [place] [address] [phone] (Wo rk) Social History Tobacco Use [...] Notes Telephone Encounter - Karina Bustamante - 05/16/2021 0943 EST pts 05/17 zoom now on 06/14 as pt needed to get labs documented in this encounter Plan of Treatment Upcoming Encounters Date Type Specialty Care Team Description 12/27/2021 Office Visit Hematology and Erin Barillas M D Oncology [address] [place] [phone] (Wo rk) 02/14/2022 Office Visit Hematology and Erin Barillas M D Oncology [address] [place] [phone] (Wo rk) 04/25/2022 Ancillary Procedure Cardiology 04/25/2022 Office Visit Cardiology Claire Lopez NP 130 [facility] [address] [place] [phone] (Wo rk) 05/13/2022 Office Visit Rheumatology Tod Perez NP 111 [facility], [facility] 5 [place] [phone] (Wo rk) documented as of this encounter Visit Diagnoses Not on filedocumented in this encounter Care Teams Director Of Consulting Services Relationship Specialty Start Date End Date Layne Cai MD PCP - General 04/05/[address] [place] [phone] Claire Lopez NP Cardiovascular Disease 11/22/20 130 [facility] [address] [place] [phone] Tod Perez NP Rheumatology 12/28/[address] [place] [address], [address] [place] [phone] documented as of this encounter
--- OUTSIDE RECORDS SUMMARY | 2021-12-21 01:20 | XMS_ITS | Encounter Summary ---
:1945 Author Organization [facility] Address [address] [place] [address] Care Team Providers Name Role Phone Layne Cai MD Primary Care Provider Claire Lopez CONTROL AND RECOVERY SPECIAL TACTICS Unavailable Tod Perez CONTROL AND RECOVERY SPECIAL TACTICS Unavailable Reason for Visit Reason Onset Date Comments Appointment Related 04/19/2021 Encounter Details Date Type Department Care Team Description 04/19/2021 Telephone [facility] Cancer Center Erin Barillas MD Appointment Related Hematology & Oncology 111 [facility] 111 [facility], [address] [place], [place] [phone] [place] [phone] (Wo rk) Social History Tobacco Use Types [...] Telephone Encounter - Joanie Bowling MA - 04/19/2021 1007 EDT Called patient pre-charting, no answer. Left message, reminder of visit. documented in this encounter Plan of Treatment Upcoming Encounters Date Type Specialty Care Team Description 12/27/2021 Office Visit Hematology and Erin Barillas M D Oncology [address] [place] [phone] (Wo rk) 02/14/2022 Office Visit Hematology and Erin Barillas M D Oncology [address] [place] [phone] (Wo rk) 04/25/2022 Ancillary Procedure Cardiology 04/25/2022 Office Visit Cardiology Claire Lopez NP 130 [facility] [address] [phone] (Wo rk) 05/13/2022 Office Visit Rheumatology Tod Perez NP 111 [facility], [facility] 5 [place] [phone] (Wo rk) documented as of this encounter Visit Diagnoses Not on filedocumented in this encounter Care Teams Mining Engineer Relationship Specialty Start Date End Date Layne Cai MD PCP - General 04/05/[address] [place] [phone] Claire Lopez NP Cardiovascular Disease 11/22/20 130 [facility] [address] [place] [phone] Tod Perez NP Rheumatology 12/28/[address] [place] [address], [address] [place] [phone] documented as of this encounter
--- OUTSIDE RECORDS SUMMARY | 2021-12-21 01:20 | XMS_ITS | Encounter Summary ---
:1945 Author Organization [facility] Address [address] [place] [address] Care Team Providers Name Role Phone Layne Cai MD Primary Care Provider Claire Lopez ORDER ADMINISTRATOR Unavailable Tod Perez ORDER ADMINISTRATOR Unavailable Reason for Visit Reason Onset Date Comments Appointment Related 04/23/2021 Encounter Details Date Type Department Care Team Description 04/23/2021 Telephone [facility] Erin Barillas MD Appointment Related Ambulatory Infusion 111 [facility], [address] [place], [place] [address] [place] [phone] (Wo rk) Social History Tobacco Use Types [...] this encounter Miscellaneous Notes Telephone Encounter - Marilu Cleaning - 04/23/2021 1647 EST 1st attempt- Left VM requesting a call back to schedule appt. documented in this encounter Plan of Treatment Upcoming Encounters Date Type Specialty Care Team Description 12/27/2021 Office Visit Hematology and Erin Barillas M D Oncology [address] [phone] (Wo rk) 02/14/2022 Office Visit Hematology and Erin Barillas M D Oncology [address] [phone] (Wo rk) 04/25/2022 Ancillary Procedure Cardiology 04/25/2022 Office Visit Cardiology Claire Lopez NP [address] [place] [address] [phone] (Wo rk) 05/13/2022 Office Visit Rheumatology Tod Perez NP 111 [facility], [facility] 5 [place] [phone] (Wo rk) documented as of this encounter Visit Diagnoses Not on filedocumented in this encounter Care Teams Car Clerk Pullman Relationship Specialty Start Date End Date Layne Cai MD PCP - General 04/05/[address] [place] [phone] Claire Lopez NP Cardiovascular Disease 11/22/20 130 [facility] [address] [place] [phone] Tod Perez NP Rheumatology 12/28/[address] [place] [address], [address] [place] [phone] documented as of this encounter
--- OUTSIDE RECORDS SUMMARY | 2021-12-21 01:20 | XMS_ITS | Encounter Summary ---
:1945 Author Organization [facility] Address [address] [place] [address] Care Team Providers Name Role Phone Layne Cai MD Primary Care Provider Reason for Visit Reason Onset Date Comments COVID-19 11/15/2020 Encounter Details Date Type Department Care Team Description 11/15/2020 Telephone [facility] Cardiology [place] COVID-19 - Jamia UGALDE [address] NOT VALID [place], [place] [address] [place], [place] [phone] Social History Tobacco Use Types Packs/Day Years [...] a physical, mental, or emotional condition, No 06/01/2020 does this person have difficulty doing errands alone such as visiting a doctor's office or shopping? Cognitive Status Response Date of Assessment Because of a physical, mental, or emotional condition, No 11/24/2017 does this person have serious difficulty concentrating, remembering, or making decisions? documented as of this encounter Miscellaneous Notes Telephone Encounter - Lia Michaud RN - 11/15/2020 1211 EDT COVID pre LHC documented in this encounter Plan of Treatment Upcoming Encounters Date Type Specialty Care Team Description 12/27/2021 Office Visit Hematology and Erin Barillas M D Oncology 111 [facility], [facility] 2 [place] [phone] (Wo rk) 02/14/2022 Office Visit Hematology and Erin Barillas M D Oncology 111 [facility] 2 [place] [phone] (Wo rk) 04/25/2022 Ancillary Procedure Cardiology 04/25/2022 Office Visit Cardiology Claire Lopez NP 130 [facility] [address] [place] [phone] (Wo rk) 05/13/2022 Office Visit Rheumatology Tod Perez NP 111 [facility], [facility] 5 [place] [phone] (Wo rk) documented as of this encounter Results COVID-19 TESTING (11/19/2020 9:26 EDT) COVID-19 rt-PCR Negative Negative [facility] Result Comment: [facility] This test has not been FDA c leared or approved. This test has been authorized by FDA under an EUA for use by authorized laboratories. This test has been authorized only for detection of nucleic acid fro SERVICES m 2019-nCoV, not for any oth er viruses or pathogens. This test is only authorized for the duration of the declaration that circumstances exist justifying the authorization of emergency use of in vitro d iagnostic tests for detectio n and/or diagnosis of 2019-nCoV under section 564(b)(1) of Act, 21 U.S.C ?? 360bbb-3(b) (1), unless the authorization is terminated or revoked sooner. Negative results do not prec lude 2019-nCoV infection and should not be used as the sole basis for treatment or other patient management decisions. Negative results must be combined with clinical observa tions, patient history, and epidemiological informatio n. This test was developed and its performance characteristics determined by [facility]. It has not been cleared or approved by the US Food and Drug Administration. FDA does not require this test to go through premarket FDA review. This t est is used for clinical purposes. It should not be regarded as investigational or for research. This laboratory is certified under the Clinical Laboratory Improvement Amendm ents (CLIA) as qualified to perform high complexity clinical laboratory testing. This test is based on the CD C COVID-19 Emergency Use Authorization (EUA) assay, with minor modification as defined by the FDA Performed on the [employer] Flex RT-PCR System. Performing Lab [facility] Lab [facility] Specimen Swab - Anterior nares Performing Organization Address City/State/ZIP Code Phon e Number [facility] [address] [place] [address] SERVICES documented in this encounter Visit Diagnoses Diagnosis SOB (shortness of breath) - Primary Shortness of breath documented in this encounter Care Teams Rooming House Keeper Relationship Specialty Start Date End Date Layne Cai MD PCP - General 04/05/[address] [place] [phone] documented as of this encounter
--- OUTSIDE RECORDS SUMMARY | 2021-12-21 01:20 | XMS_ITS | Encounter Summary ---
:1945 Author Organization [facility] Address [address] [place] [address] Care Team Providers Name Role Phone Layne Cai MD Primary Care Provider Claire Lopez SEAM FINISHER Unavailable Tod Perez SEAM FINISHER Unavailable Reason for Visit Reason Comments Other Encounter Details Date Type Department Care Team Description 02/11/2021 Refill [facility] Hematology Ochoa Erin cutler MD Other & Oncology - [facility] Ca mpus 111 [facility] [address] [place] [address] [place] [phone] (Wo rk) Social History [...] 0 05/13/2021 mg capsule MOUTH EVERY DAY documented in this encounter Miscellaneous Notes Telephone Encounter - Renate De Leon, TRAM - 02/12/2021 1242 EDT Hydrea refill routed to [facility]. Per last note on 12/15/20 pt to continue on 500mg a day. Last filled 11/14. Pt has a return appointment with Dr Barillas on 03/29 documented in this encounter Plan of Treatment Upcoming Encounters Date Type Specialty Care Team Description 12/27/2021 Office Visit Hematology and Erin Barillas M D Oncology [address] [place] [phone] (Joi diallo) 02/14/2022 Office Visit Hematology and Erin Barillas M D Oncology [address] [phone] (Joi diallo) 04/25/2022 Ancillary Procedure Cardiology 04/25/2022 Office Visit Cardiology Claire Lopez NP 130 [facility] [address] [place] [phone] (Joi rk) 05/13/2022 Office Visit Rheumatology Tod Perez NP 111 [facility] 5 [place] [phone] (Wo rk) documented as of this encounter Visit Diagnoses Not on filedocumented in this encounter Discontinued Medications Medication Sig Discontinue Reason Start Date End Date hydroxyurea (HYDREA) 500 Take 1 Cap by 11/14/2020 mg capsuleIndications: mouth daily for 90 polycythemia vera days. documented as of this encounter Care Teams Golf Caddie Relationship Specialty Start Date End Date Layne Cai MD PCP - General 04/05/20 [address] [place] [phone] Claire Lopez NP Cardiovascular Disease 11/22/[address] [place] [address] [address] [place] [phone] Tod Perez NP Rheumatology 12/28/[address] [place] [address], Level 5 [place] [phone] documented as of this encounter
--- OUTSIDE RECORDS SUMMARY | 2021-12-21 01:20 | XMS_ITS | Encounter Summary ---
:1945 Author Organization [facility] Address [address] [place] [address] Care Team Providers Name Role Phone Layne Cai MD Primary Care Provider Claire Lopez FLIGHT READINESS TECHNICIAN Unavailable Reason for Visit Reason Onset Date Comments Results 12/13/2020 Encounter Details Date Type Department Care Team Description 12/13/2020 Telephone [facility] Erin Barillas MD Results Hematology & Oncology - 111 [facility], [address] 2 [place], [place] [address] [place] [phone] (Wo rk) Social History Tobacco Use [...] Assigned at Date Recorded Not on file COVID-19 Exposure Response Date Recorded In the last month, have you been in contact with No / Unsure 11/22/2020 9:32 EDT someone who was confirmed or suspected to have Coronavirus / COVID-19? documented as of this encounter Functional Status [...] Notes Telephone Encounter - Augustina Salazar - 12/13/2020 1200 EDT LABS ENTERED FROM [facility]. Augustina Salazar 12/13/2020 12:00 documented in this encounter Plan of Treatment Upcoming Encounters Date Type Specialty Care Team Description 12/27/2021 Office Visit Hematology and Erin Barillas M D Oncology [address] [phone] (Joi diallo) 02/14/2022 Office Visit Hematology and Erin Barillas M D Oncology [address] [phone] (Wo rk) 04/25/2022 Ancillary Procedure Cardiology 04/25/2022 Office Visit Cardiology Claire Lopez NP 130 [facility] [address] [phone] (Wo rk) 05/13/2022 Office Visit Rheumatology Tod Perez NP [address] [phone] (Wo rk) documented as of this encounter Procedures Procedure Name Priority Date/Time Associated Diagnosis Comme nts COMPREHENSIVE METABOLIC Routine 12/11/2020 Resu lts for this PANEL (ONCOLOGY USE procedur e are in the ONLY-INC MG) results section . COMPLETE BLOOD COUNT AND Routine 12/11/2020 Res ults for this DIFFERENTIAL procedure are i n the results section . documented in this encounter Results (ABNORMAL) COMPREHENSIVE METABOLIC PANEL (ONCOLOGY USE ONLY-INC MG) (12/11/2020) Pathologist Sig nature Calcium, External 8.9 [facility] CO2, External 27.4 [facility] AST, External 26 [facility] ALT, External 30 [facility] Bilirubin, Total, 0.8 [facility] Creatinine, External 1.3 [facility] Calculated Calcium, [facility] Anion Gap, External [facility] Total Protein, 6.9 [facility] Potassium, External 4.5 [facility] Total Alkaline 76 [facility] Phosphatase, [facility] AB Albumin, External 4.0 [facility] BUN, External 19 (A) 7 - 18 [facility] GFR, Calculated, 53.53 [facility] Fasting?, External [facility] Chloride, External 105 [facility] Glucose, Serum, 130 (A) 74 - 106 [facility] Sodium, External 141 [facility] Magnesium, External [facility] Specimen Blood - Venous blood (substance) Performing Organization Address City/State/ZIP Code Phon e Number [facility] (ABNORMAL) COMPLETE BLOOD COUNT AND DIFFERENTIAL (12/11/2020) Pathologist Sig nature WBC, External 6.02 [facility] RBC, External 4.77 [facility] Hemoglobin, External 13.3 (A) 13.5 - 17.5 [facility] HCT, External 44.0 [facility] MCV, External 92.2 [facility] MCH, External 27.9 [facility] MCHC, External 30.2 (A) 32.0 - 36.0 [facility] PLT, External 259 [facility] RDW-CV, External 18.6 (A) 11.8 - 14.1 [facility] Neutrophils, 72.8 [facility] Lymphocytes, 18.6 [facility] Monocytes, External 5.3 [facility] Eosinophils, 2.0 [facility] Basophils, External 1.0 [facility] ABS Neutrophils, 4.38 [facility] ABS Lymphs, External 1.12 (A) 1.2 - 3.4 [facility] ABS Monocytes, 0.32 [facility] ABS Eosinophils, 0.12 [facility] ABS Basophils, 0.06 [facility] Specimen Blood - Venous blood (substance) Performing Organization Address City/State/ZIP Code Phon e Number [facility] documented in this encounter Visit Diagnoses Not on filedocumented in this encounter Care Teams Van Loader Relationship Specialty Start Date End Date Layne Cai MD PCP - General 04/05/20 [address] [place] [phone] Claire Lopez NP Cardiovascular Disease 11/22/20 130 [facility] [address] [place] [phone] documented as of this encounter
--- OUTSIDE RECORDS SUMMARY | 2021-12-21 01:20 | XMS_ITS | Encounter Summary ---
:1945 Author Organization [facility] Address [address] [place] [address] Care Team Providers Name Role Phone Layne Cai MD Primary Care Provider Claire Lopez MOSQUITO SPRAYER Unavailable Tod Perez MOSQUITO SPRAYER Unavailable Reason for Visit Reason Onset Date Comments Appointment Related 03/09/2021 Encounter Details Date Type Department Care Team Description 03/09/2021 Telephone [facility] Erin Barillas MD Appointment Related Hematology & Oncology 111 [facility] 111 [facility], Level 2 [place], [place] [address] [place] [phone] (Wo rk) Social History Tobacco Use Types [...] Notes Telephone Encounter - Karina Bustamante - 03/12/2021 0851 EDT Called pt with zoom on April 20 elephone Encounter - Juan Bucio - 03/09/2021 1329 EDT Patients is calling about upcoming appt on 03/29/21 which they cannot make. They would prefer a zoom appointment as they are traveling across the state to get to the clinic. Please call back to reschedule. documented in this encounter Plan of Treatment Upcoming Encounters Date Type Specialty Care Team Description 12/27/2021 Office Visit Hematology and Erin Barillas M D Oncology [address] [place] [phone] (oJi diallo) 02/14/2022 Office Visit Hematology and Erin Barillas M D Oncology [address] [place] [phone] (Joi rk) 04/25/2022 Ancillary Procedure Cardiology 04/25/2022 Office Visit Cardiology Claire Lopez NP 130 [facility] [address] [phone] (Wo rk) 05/13/2022 Office Visit Rheumatology Tod Perez NP 111 [facility] 5 [place] [phone] (Wo rk) documented as of this encounter Visit Diagnoses Not on filedocumented in this encounter Care Teams Dock Operator Relationship Specialty Start Date End Date Layne Cai MD PCP - General 04/05/20 [address] [place] [phone] Claire Lopez NP Cardiovascular Disease 11/22/[address] [place] [address] [phone] Tod Perez NP Rheumatology 12/28/20 111 [facility] 5 [place] [phone] documented as of this encounter
--- OUTSIDE RECORDS SUMMARY | 2021-12-21 01:20 | XMS_ITS | Encounter Summary ---
:1945 Author Organization [facility] Address [address] [place] [address] Care Team Providers Name Role Phone Layne Cai MD Primary Care Provider Encounter Details Date Type Department Care Team Description 11/19/2020 Phlebotomy Only [facility] - SOB (shortness of DANDRE KERRI MOBILE breath) [address] [place] [address] Social History Tobacco Use Types Packs/Day Years [...] and Erin Barillas M D Oncology 111 [facility] 2 [place] [phone] (Wo rk) 02/14/2022 Office Visit Hematology and Erin Barillas M D Oncology 111 [facility] 2 [place] [phone] (Wo rk) 04/25/2022 Ancillary Procedure Cardiology 04/25/2022 Office Visit Cardiology Claire Lopez NP 130 [facility] [address] [phone] (Wo rk) 05/13/2022 Office Visit Rheumatology Tod Perez NP [address] [facility], [facility] 5 [place] [phone] (Wo rk) documented as of this encounter Procedures Procedure Name Priority Date/Time Associated Diagnosis Comme nts COVID-19 TEST [facility] Today 11/19/2020 9:26 EDT SOB (shortness of LAB PCR breath) COVID-19 TESTING Routine 11/19/2020 9:26 EDT SOB (shortness of Results for this breath) procedure are i n the results section. documented in this encounter Results COVID-19 TEST [facility] PCR (11/19/2020 9:26 EDT) Specimen Swab - Anterior nares Performing Organization Address City/State/ZIP Code Phon e Number [facility] [address] [place] [address] SERVICES COVID-19 TESTING (11/19/2020 9:26 EDT) COVID-19 rt-PCR Negative Negative [facility] Result Comment: CENTER LABORATORY This test [...] developed and its performance characteristics determined by [facility]. It has not been cleared or [...] defined by the FDA Performed on the [employer] 7 Flex RT-PCR System. Performing Lab [facility] Lab [facility] SERVICES Specimen Swab - Anterior nares Performing Organization Address City/State/ZIP Code Phon e Number [facility] [address] [place] [address] SERVICES documented in this encounter Visit Diagnoses Diagnosis SOB (shortness of breath) Shortness of breath documented in this encounter Care Teams Drier Feeder Relationship Specialty Start Date End Date Layne Cai MD PCP - General 04/05/[address] [place] [phone] documented as of this encounter
--- OUTSIDE RECORDS SUMMARY | 2021-12-21 01:20 | XMS_ITS | Encounter Summary ---
:1945 Author Organization [facility] Address [address] [place] [address] Care Team Providers Name Role Phone Layne Cai MD Primary Care Provider Claire Lopez EVP HEAD OF [employer] EXPERIENCE STRATEGY Unavailable Tod Perez EVP HEAD OF [employer] EXPERIENCE STRATEGY Unavailable Reason for Visit Reason Onset Date Comments Coordination Of Care 01/02/2021 Encounter Details Date Type Department Care Team Description 01/02/2021 Telephone [facility] Tod Perez, Co ordination Of Care Rheumatology & EVP [employer] EXPERIENCE STRATEGY Immunology - [facility] [address] [facility] [address] [place], [place] [address] [place] [address], [place] [phone] (Wo rk) Social History Tobacco Use Types [...] this encounter Miscellaneous Notes Telephone Encounter - Melchor Cantrell - 01/02/2021 1237 EDT Reason for Call: Coordination Of Care Summary/Symptoms: [facility] received a referral from Tod but the clinic is confused on if the patient was needing anything sleep related as from what they can tell the referral is for Pulm. If it was for Pulm please refax to [phone] and Pulm phone is [phone] Melchor Cantrell 01/02/2021 12:38 documented in this encounter Plan of Treatment Upcoming Encounters Date Type Specialty Care Team Description 12/27/2021 Office Visit Hematology and Erin Barillas M D Oncology [address] [place] [phone] (Wo rk) 02/14/2022 Office Visit Hematology and Erin Barillas M D Oncology [address] [phone] (Wo rk) 04/25/2022 Ancillary Procedure Cardiology 04/25/2022 Office Visit Cardiology Claire Lopez NP 130 [facility] [address] [place] [phone] (Wo rk) 05/13/2022 Office Visit Rheumatology Tod Perez NP 111 [facility] 5 [place] [phone] (Wo rk) documented as of this encounter Visit Diagnoses Not on filedocumented in this encounter Additional Health Concerns Infection Onset Date Last Indicated Resolved Time R/O COVID-19 12/28/2020 12/28/2020 01/02/2021 22:15 EDT documented as of this encounter Care Teams Credentials Specialist Relationship Specialty Start Date End Date aLyne Cai MD PCP - General 04/05/20 26 [place] [phone] Claire Lopez NP Cardiovascular Disease 11/22/20 130 [facility] [address] [place] [phone] Tod Perez NP Rheumatology 12/28/[address] [facility], Level [address] [place] [phone] documented as of this encounter
--- OUTSIDE RECORDS SUMMARY | 2021-12-21 01:20 | XMS_ITS | Encounter Summary ---
:1945 Author Organization [facility] Address [address] [place] [address] Care Team Providers Name Role Phone Layne Cai MD Primary Care Provider Claire Lopez LEAD SOFTWARE TESTER Unavailable Tod Perez LEAD SOFTWARE TESTER Unavailable Reason for Visit Reason Onset Date Comments Appointment Related 04/23/2021 Encounter Details Date Type Department Care Team Description 04/23/2021 Telephone [facility] Erin Barillas MD Appointment Related Hematology & Oncology 111 [facility] 111 [facility], Level 2 [place], [place] [address] [place] [phone] (Wo rk) Social History Tobacco Use Types [...] Notes Telephone Encounter - Karina Bustamante - 04/23/2021 1041 EST Called pt with 05/07 labs and 05/17 zoom with AB documented in this encounter Plan of Treatment Upcoming Encounters Date Type Specialty Care Team Description 12/27/2021 Office Visit Hematology and Erin Barillas M D Oncology [address] [place] [phone] (Joi rk) 02/14/2022 Office Visit Hematology and Erin Barillas M D Oncology [address] [phone] (Wo rk) 04/25/2022 Ancillary Procedure Cardiology 04/25/2022 Office Visit Cardiology Claire Lopez NP [address] [place] [address] [address] [place] [phone] (Wo rk) 05/13/2022 Office Visit Rheumatology Tod Perez NP 111 [facility] 5 [place] [phone] (Wo rk) documented as of this encounter Visit Diagnoses Not on filedocumented in this encounter Care Teams Brazing Machine Setter Relationship Specialty Start Date End Date Layne Cai MD PCP - General 04/05/[address] [place] [phone] Claire Lopez NP Cardiovascular Disease 11/22/20 130 [facility] [address] [place] [address] Tod Perez NP Rheumatology 12/28/[address] [place] [address], [address] [place] [phone] documented as of this encounter
--- OUTSIDE RECORDS SUMMARY | 2021-12-21 01:20 | XMS_ITS | Encounter Summary ---
:1945 Author Organization [facility] Address [address] [place] [address] Care Team Providers Name Role Phone Layne Cai MD Primary Care Provider Encounter Details Date Type Department Care Team Description 11/09/2020 Results Only [facility] Randy Null MD Lab - [facility] [address] [facility] [address] [place] [address] [place], [place] [id number] [phone] Social History Tobacco Use Types Packs/Day Years [...] and Erin Barillas M D Oncology 111 [facility], [facility] [address] [place] [phone] (Wo rk) 02/14/2022 Office Visit Hematology and Erin Barillas M D Oncology 111 [facility], [facility] [address] [place] [address] (Wo rk) 04/25/2022 Ancillary Procedure Cardiology 04/25/2022 Office Visit Cardiology Claire Lopez NP 130 [facility] [address] [phone] (Wo rk) 05/13/2022 Office Visit Rheumatology Tod Perez NP 111 [facility], [facility] [address] [place] [address] (Wo rk) documented as of this encounter Procedures Procedure Name Priority Date/Time Associated Comments Diagnosis D-DIMER Routine 11/09/2020 15:00 Results for this EDT procedure are i n the results section. NT-PROBNP SERPL-MCNC Routine 11/09/2020 14:40 Res ults for this - [facility] EDT procedure are i n the results section. COMPLETE BLOOD COUNT Routine 11/09/2020 14:40 Res ults for this WITH DIFFERENTIAL EDT procedure are in (AUTO) the results section. TROPONIN I Routine 11/09/2020 14:40 Results for this EDT procedure are i n the results section. MAGNESIUM Routine 11/09/2020 14:40 Results for this EDT procedure are i n the results section. documented in this encounter Results D-DIMER (11/09/2020 15:00 EDT) [facility]imer <150 <230 [facility] Comment: [facility] CUTOFF VALUE FOR THE EXCLUSION OF DVT and PE: 230 ng/mL D-dimer units. Any use of the age-adjusted cutoff value is a post-bruna lytic modification of this FDA-approved test and is consider ed off-label use of the test result. [facility] Laboratory do es not have literature to support the validity of an age-adju sted cutoff for our specific assay. Specimen Performing Organization Address [facility] Phon e Number [facility] [address] [place] [address] NT-PROBNP SERPL-[facility] - [facility] (11/09/2020 14:40 EDT) Pathologist Sig nature NT-pro BNP 126 <300 pg/mL [facility] Comment: CENTER LAB NT-proBNP values less than 300 pg/ml have a 99% negati ve predictive value for excluding acute congestive heart failure. A diagnostic NT-proBNP cutoff of 900 pg/ml ratliff s been suggested in adults over 50 years of age in the absenc e of renal failure. A cutoff of 1200 pg/ml for patients wit h eGFR <60 yields a diagnostic sensitivity and specificity of 89% and 72% for acute congestive failure. (OCD Praneeth Perez, PhD, [employer] of NT-proBNP (ICON) Study The results of this assay can be falsely lowered due t o the consumption of Biotin. Specimen Performing Organization Address [facility] [address] [place] [address] TROPONIN I (11/09/2020 14:40 EDT) Pathologist [facility] Troponin I <0.034 0.000 [facility] (ng/mL) Comment: 0.034 ng/mL [facility] CENTER LAB Interpretation comments: ??Cutoff for a positive troponin result is set at the 99th percentile of the upper reference limit. ??Elevated troponin must always be interpreted in the context of the clinical presentation. ?Serial troponin testing 3-6 hr from baseline is fav ored over relying on a single troponin level. ?? The results of this assay can be falsely lowered d ue to the consumption of Biotin. Specimen Performing Organization Address [facility] Phon e Number [facility] [address] [place] [address] MAGNESIUM (11/09/2020 14:40 EDT) Pathologist Sig nature Magnesium 2.00 1.7 - 2.8 mg/dL [facility] Specimen Performing Organization Address City/State/ZIP Code Phon e Number [facility] [address] [place] [address] (ABNORMAL) COMPLETE BLOOD COUNT WITH DIFFERENTIAL (AUTO) (11/09/2020 14:40 EDT) Pathologist Sig nature ABSOLUTE NEUTROPHIL 5.5 2.2 - 8.85 [facility] COUN - [facility] 10e3/uL CENTER LAB BASO # - [facility] 0.07 0.01 - 0.11 [facility] 10e/uL [facility] BASO % - [facility] 1 0 - 2 % [facility] EOS # - CV 0.16 0.03 - 0.61 [facility] 10e3/ul [facility] EOS % - [facility] 2 0 - 5 % [facility] GRAN % - [facility] 72.6 40 - 80 % [facility] HEMATOCRIT - [facility] 43.5 39.5 - 50.2 % [facility] HEMOGLOBIN - [facility] 13.6 (L) 13.8 - 17.3 [facility] g/dl [facility] IG# - [facility] 0.04 0 - 0.7 10e3/uL [facility] IG% - [facility] 0.5 0 - 0.9 % [facility] LYMPH # - [facility] 1.2 1.09 - 3.3 [facility] 10e3/ul [facility] LYMPH% - [facility] 16.4 (L) 20 - 40 % [facility] MEAN CORPUSCULAR HGB 28.5 27.6 - 33.0 pg [facility] ME D - [facility] CENTER LAB MEAN CORPUSCULAR HGB 31.3 (L) 32.8 - 36.4 [facility] CONC - [facility] g/dL [facility] MEAN CELL VOLUME - 91.2 81 - 95 fl [facility] MONO # - [facility] 0.6 0.1 - 0.8 [facility] 10e3/uL [facility] MONO% - [facility] 7.5 0 - 12 % [facility] PLATELET COUNT 255 141 - 377 [facility] 10e3/ul [facility] RED BLOOD COUNT - 4.77 4.36 - 5.78 [facility] 10e6/ul [facility]ENTER LAB RED CELL DISTRI WIDTH 17.6 <14.2 % [facility] WHITE BLOOD COUNT - 7.6 4.0 - 10.4 [facility] 10e3/ul [facility] LAB Specimen Performing Organization Address City/State/ZIP Code Phon e Number [facility] [address] [place] [address] documented in this encounter Visit Diagnoses Not on filedocumented in this encounter Care Teams Photography Colorist Relationship Specialty Start Date End Date Layne Cai MD PCP - General 04/05/20 [address] [place] [phone] documented as of this encounter
--- OUTSIDE RECORDS SUMMARY | 2021-12-21 01:20 | XMS_ITS | Encounter Summary ---
:1945 Author Organization [facility] Address [address] [place] [address] Care Team Providers Name Role Phone Layne Cai MD Primary Care Provider Claire Lopez BATCH UNLOADER Unavailable Tod Perez BATCH UNLOADER Unavailable Encounter Details Date Type Department Care Team Description 01/30/2021 Lab Requisition [facility] Outr Resulting Lab, Pathology & Laboratory Provider [facility] [address] [place] [address] Social History Tobacco Use Types [...] and Erin Barillas M D Oncology 111 [facility], [facility] [address] [place] [address] (Wo rk) 02/14/2022 Office Visit Hematology and Erin Barillas M D Oncology 111 [facility], [facility] [address] [place] [address] (Wo rk) 04/25/2022 Ancillary Procedure Cardiology 04/25/2022 Office Visit Cardiology Claire Lopez NP [address] [place] [address] [address] [place] [phone] (Wo rk) 05/13/2022 Office Visit Rheumatology Tod Perez NP 111 [facility], [address] [place] [address] (Wo rk) documented as of this encounter Procedures Procedure Name Priority Date/Time Associated Diagnosis Comme nts ANTI DNA (DOUBLE Routine 01/30/2021 10:15 Results for this STRANDED) EDT procedure are i n the results section. ANTI NUCLEAR AB Routine 01/30/2021 10:15 Results for this (AMOL), IFA EDT procedure are i n the results section. documented in this encounter Results ANTI DNA (DOUBLE STRANDED) (01/30/2021 10:15 EDT) Anti-DNA (Double <12.3 <30.0 IU/mL [facility] Stranded) Comment: LABORATORY ? SERV ICES ? Negative: ??<30.0 IU/mL ? Borderline Positive: ??30.0 - 75.0 IU/mL ? Positive: ??>75.0 IU/mL Results were obtained with angelika garner INOVA QUANTA Lite dsDNA SC SHANIA assay on the [employer] DSX. Specimen Blood - Venous blood (substance) Performing Organization Address City/[facility] Phon e Number [facility] [address] [place] [address] SERVICES (ABNORMAL) ANTI NUCLEAR AB (AMOL), IFA (01/30/2021 10:15 EDT) AMOL Interpretation Positive (A) Negative [facility] Comment: CENTER LABORATORY For titers greater than or e qual to 1:160 (except the centromere and nucleolar patterns) it is recommended that specific follow-up autoantibody testing ??(such as for dsDNA and Extractable Nuclear Antig SERVICES ens) be performed on all diffuse and/or speckled patterns NOTE: For add-on testing dsD NA is stable for 7 days refrigerated while Extractable Nuclear Antigens are only stable for 48 hours refrigerated. AMOL Titer and Pattern 1:[address] LABORATORY SERVICES Specimen Blood - Venous blood (substance) Narrative [facility] SERVICES - 01/31/2021 15:03 EDT Results were obtained with the INOVA NOV A Lite HEp-2 AMOL Kit by indirect immunofluorescence. Performing Organization Address City/[facility] Code Phon e Number [facility] [address] [place] [address] SERVICES documented in this encounter Visit Diagnoses Not on filedocumented in this encounter Care Teams Director Strategic Planning Relationship Specialty Start Date End Date Layne Cai MD PCP - General 04/05/[address] [place] [phone] Claire Lopez NP Cardiovascular Disease 11/22/20 130 [facility] [address] [place] [phone] Tod Perez NP Rheumatology 12/28/20 111 [facility], [address] [place] [address] documented as of this encounter
--- OUTSIDE RECORDS SUMMARY | 2021-12-21 01:20 | XMS_ITS | Encounter Summary ---
:1945 Author Organization [facility] Address [address] [place] [address] Care Team Providers Name Role Phone Layne Cai MD Primary Care Provider Claire Lopez NP Unavailable Tod Perez NP Unavailable Reason for Referral Consult (Routine) - Authorization Not Required Specialty Diagnoses / Procedures Referred By Contact Refer red To Contact Diagnoses History of seronegative inflammatory arthritis Encounter for long-term (current) use of medications Tod Perez NP [address] [phone] Referral ID Status Reason Start Expiration Visits Visits Date Date Requested Authorized [id number] Authorization Specialty 1 1 Not Required Services 1 Required Question Answer Reason for Request: SOB new onset since October 03, with some intermittent chest pain- which cardiology has w orked on, neg cardiac cath, Comments Usually walks 6-10 miles per day in the summer- was not able to do his summer walking, Hx of smoking, No updated chest CT adiology Services (Routine) - Authorization Not Required Specialty Diagnoses / Procedures Referred By Contact Refer red To Contact Diagnoses SOB (shortness of breath) Hx of smoking Tod Perez NP Procedures XR CHEST 2 VIEWS 111 [facility] [address] [place] [address] Referral ID Status Reason Start Expiration Visits Visits Date Date Requested Authorized [id number] Authorization Not 12/28/2020 1 1 Required Reason for Visit Reason Comments Follow-up Medication Management wants to discuss methotrexat e and if it could be contributing to his SOB Shortness of Breath SOB since august 2020, had ex tensive cards workup with no clear etiology Encounter Details Date Type Department Care Team Description 12/28/2020 Office Visit [facility] Tod Perez, [place] story of seronegative inflammatory arthritis (Primary Dx); 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 Pt sent to ED - for covid screening which was neg 2. Referred to Pulmonary- ext- pt would like to see [facility]. Chest xray Neg for infection, but it did show Chest xray did show Hyperinflation, interstitial prominence, and trace basilar airspace disease. Discussed this could be smoking and/or ILD related. 3. Inflammatory arthritis doing well continue methotrexate 10 tabs orally once weekly. Cr 1.02 doingwell. 4. Labs every 3-4 months 5. F/u 04/03/21 at 11am. If this time does not work for you please call the clinic. documented in this encounter Progress Notes Tod Perez APRN - 12/28/2020 1030 EDT Images from the original note were not included. Patient ID: Deon Villanueva is a 75 y.o. y.o. male Subjective: Chief Complaint: Follow-up, Medication Management (wants to discuss methotrexate and if it could be contributing to his SOB), and Shortness of Breath (SOB since august 2020, had extensive cards workup with no clear etiology ) HPI: ?? Pertinent Rheumatological History: 1. [...] ? SUBJECTIVE: Mr. Deon Villanueva is a 73 y.o. male with history of seronegative inflammatory polyarthritis and degenerative disc disease who presents today for a follow-up visit. he was last seen in clinic on 07/07/2018. ?? Since his last visit: - 07/07/2018 - decreased methotrexate to 10 mg orally weekly from 15 mg orally weekly. There was a mild flare and increased to 12.5 mg orally weekly for several weeks. Symptoms were stable and then decreased 10 mg orally weekly. - Neck and shoulder pain. Has increased his yard work activities - Left knee bruising after a work injury this past week. - CT myelogram was cancelled due to improvement of symptoms - Travelled to [place] including [facility] [place]. Able to ambulate without difficulty. - AM stiffness lasting approximately 30 minutes involving the hands and neck - Ibuprofen 800 mg orally daily as needed. Has not needed this in recent months. ?? 09/23/2019 Pt consents to telephone visit, Augustina also present on phone call 05/2019 visit canceled d/t CT the same day After my health discussion with Dr. Rosales MTX 1 tab weekly stopped first part of Jun 2019. Was tapering MTX to see if he could go off it. Having sciatic like pain right hip radiates to right ankle Hx of left sided sciatica - 1 year ago resolved with PT Started having inflammatory arthritis symptoms early 2019 with bilateral hand swelling. Was in a 5th meng in [place] at that time. new dx around 04/2019 of polycythemia: elevated RBC and hemoglobin Had repeat labs at [facility] 05/2019 PCP was suppose to set up NPV with hematology at [facility] - they have not heard from PCP or Hematology prednisone burst from PCP for hand swelling. 20mg x 7 days and 10mg x 7 days which ended today 12/02/2019 TELEMEDICINE VIDEO VISIT Today's visit was provided through telemedicine video conferencing: The location of the patient : Home The location of the provider: Office The following staff and their role did participate in today's encounter visit: Tod Perez APRN The concept of ???Telemedicine?? has been described to the patient.? Patient has been informed of the anticipated benefits and possible risks.? Patient understands the information provided regarding telemedicine, has had the opportunity to ask questions about this information, and all questions have been answered to patient???s satisfaction. Patient consents for the use of telemedicine in his/her medical care and authorizes the transmission of any relevant medical information to providers and theirstaff involved in patient???s medical or mental health care. MSK- MCP swelling and radicular pain intermittently to left hand and left wrist, No swelling to right hand Elbows, shoulders, right wrist, knees ankles, feet pt is not yet taking hydroxyurea until discusses with hematology Will have office visit with hematology on Friday and will will have phlebotomy- plan with weekly phlebotomy until counts are normal Will have CBC, 03/02/2020 Trouble closing left hand, but not as much pain Radiculopathy L>R- has not had that in the past month Polycythemia vera doing well followed by Dr. Barillas REVIEW OF SYSTEMS: Yes No Yes No Fever X Joint pain x Weight gain or loss pounds (lbs) Duration of AM joint stiffness 30 hours / min Eye pain or dryness X Numbness/tingling x X Mouth or nose sores X Heart burn / Nausea X Chest pain X Diarrhea X Shortness of Breath X Blood in stool X Cough X Burning on urination X Skin rash X Hand/Foot color change in cold X 08/31/2020 REVIEW OF SYSTEMS: Yes No Yes No Fever X Joint pain Weight gain or loss pounds (lbs) Duration of AM joint stiffness hours / min Eye pain or dryness X Numbness/tingling X Mouth or nose sores X Heart burn / Nausea X Chest pain X Diarrhea X Shortness of Breath X Blood in stool X Cough X Burning on urination X Skin rash X Hand/Foot color change in cold X Jun 2705/2021 scheduled for pacer battery replacement - completed moderna 19 #1, #2 doing well on MTX 10 tabs orally weekly Sc pen was too expensive Pt's states there was a breakdown in communication- they would like to fix the communication breakdown, or if unable to fix plan to transfer care. Has zoom meeting with Dr. Hilario next week, And labs next Changes since last visit REVIEW OF SYSTEMS: Yes No Yes No Fever x Joint pain X Weight gain or loss pounds (lbs) Duration of AM joint stiffness hours / min Eye pain or dryness X Numbness/tingling X Mouth or nose sores x Heart burn / Nausea X Chest pain X Diarrhea X Shortness of Breath x Blood in stool X Cough x X Burning on urination X Skin rash X Hand/Foot color change in cold X migel #1 and #2 11/22/20 cardiac cath was completed which was neg SOB since September 2020, was not able to do his spring walking, typically can do up to 10 miles, usually goes to [place] and walks daily in the winter, was not able to do that 2/2 covid panemic this year. He was much less active in the winter this year, worked around the house and some snow plowing with excavator, and a little shoveling. He was not SOB while shoveling. Friday- cough, sore throat, headache, fever 100.1 Was not able to get out of bed, was able to get out of bed , still has cough, nasal congestion, using saline mist No loss of state or smell, Did not treat with any meds, day time alchaselizer Friday blisters in his mouth- pt states it is from the fever he had, states they are improving, he has had blisters with fevers in the past States SOB was worse on Friday, now improved but still present, was able to do 2 flights of stairs without stopping on way to visit today, His was also SOB after 2 flights of stairs Was at an event on December 17 and was talking to a person who was coughing, had 2 grand children at the house tues, children were not sick. Denies any other sick contacts or people who were coughing, he continue to have chest pain, but less often, which cardiology is trying to work up, Saw PCP told him to see hematology and cardilogy, And was offered pulmonology, but declined at first, and is now ready to see pulmonology, Denies any other joint pains or swelling. AM stiffness: Some Physical activity: Walks 5-6 miles per day Patient Active Problem List Diagnosis ??? Chest pain ??? Light headed ??? Sick sinus syndrome (HCC-CMS) ??? Pacemaker ??? Sleep apnea ??? Hypertension ??? GERD (gastroesophageal reflux disease) ??? Hypercholesteremia ??? Enlarged prostate ??? Left hand weakness ??? History of seronegative inflammatory arthritis ??? Facial rash ??? Exertional chest pain Past Medical History: Diagnosis Date ??? Arthritis ??? Biliary colic ??? Cataract bilateral ??? Enlarged prostate ??? GERD (gastroesophageal reflux disease) ??? 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 Hypercholesteremia ??? Hypertension ??? Inguinal hernia bilateral ??? Pacemaker ??? Sleep apnea weaing cpap Past Surgical History: Procedure Laterality Date ??? CARDIAC PACEMAKER PLACEMENT ??? CATARACT REMOVAL bilateral ??? CHOLECYSTECTOMY 2005 ??? EYE SURGERY ??? HERNIA REPAIR Allergies Allergen Reactions ??? Lisinopril Causes chest pain. ? Myocardial bridging Current Outpatient Medications Medication ??? aspirin 81 mg EC tablet ??? atorvastatin (LIPITOR) 40 mg tablet ??? finasteride (PROSCAR) 5 mg tablet ??? folic acid (FOLVITE) 1 mg tablet ??? hydroxyurea (HYDREA) 500 mg capsule ??? isosorbide MONOnitrate (IMDUR) 60 mg CR tablet ??? methotrexate 2.5 mg tablet ??? metoprolol XL (TOPROL-XL) 25 mg tablet ??? omeprazole (PRILOSEC) 40 mg capsule No current facility-administered medications for this visit. ROS - SEE HPI I reviewed the 10 point ROS performed by the nurse which is as documented in Prism. Objective: BP 139/72 (BP Cuff Location: Left arm, BP Patient Position: Sitting, BP Cuff Sizes: Adult, long) Pulse 60 General: No acute distress. Alert, fully oriented, pleasant, conversant. HEENT: Conjunctivae/corneas clear. Pupils equal, Sclerae anicteric. Mucus membranes moist; oropharynx clear. Neck supple, symmetrical, trachea midline maxillary sinus tender to palpation bilaterally Lungs: Clear to auscultation bilaterally. Cough present Heart: Regular rate and rhythm, S1, S2 present, no murmur Abdomen: Soft, non-tender, non-distended. Extremities: Extremities without cyanosis, trace -1 edema left leg Skin: Clear Musculoskeletal: Spine: No significant tenderness. Normal range [...] present. Appropriate range of motion present. Ankle/Foot: In compression stockings, some OA, with cock ups, no significant tenderness, swelling, effusions, erythema or warmth is present. Appropriate range of motion present. LABS: Results for DEON VILLANUEVA ( ) as of 12/27/2020 10:56 Ref. Range 12/11/2020 00:00 Sodium, External Unknown 141 Potassium, External Unknown 4.5 Chloride, External Unknown 105 CO2, External Unknown 27.4 BUN, External Latest Ref Range: 7 - 18 19 (A) Creatinine, External Unknown 1.3 Glucose, Serum, External Latest Ref Range: 74 - 106 130 (A) Calcium, External Unknown 8.9 Total Protein, External Unknown 6.9 Albumin, External Unknown 4.0 AST, External Unknown 26 ALT, External Unknown 30 Bilirubin, Total, External Unknown 0.8 Alkaline Phosphatase, External Unknown 76 GFR, Calculated, External Unknown 53.53 WBC, External Unknown 6.02 RBC, External Unknown 4.77 Hemoglobin, External Latest Ref Range: 13.5 - 17.5 13.3 (A) HCT, External Unknown 44.0 MCH, External Unknown 27.9 MCV, External Unknown 92.2 MCHC, External Latest Ref Range: 32.0 - 36.0 30.2 (A) RDW-CV, External Latest Ref Range: 11.8 - 14.1 18.6 (A) PLT, External Unknown 259 ABS Neutrophils, External Unknown 4.38 Neutrophils, External Unknown 72.8 Lymphocytes, External Unknown 18.6 Eosinophils, External Unknown 2.0 Basophils, External Unknown 1.0 ABS Lymphs, External Latest Ref Range: 1.2 - 3.4 1.12 (A) ABS Monocytes, External Unknown 0.32 ABS Eosinophils, External Unknown 0.12 ABS Basophils, External Unknown 0.06 Monocytes, External Unknown 5.3 Ref. Range 07/24/2020 00:00 Sodium, External Unknown 140 Potassium, External Unknown 4.4 Chloride, External Unknown 105 CO2, External Unknown 27.1 BUN, External Latest Ref Range: 7 - 18 25 (A) Creatinine, External Latest Ref Range: 0.70 - 1.30 1.5 (A) Glucose, Serum, External Latest Ref Range: 74 - 106 137 (A) Calcium, External Unknown 8.9 Total Protein, External Unknown 7.3 Albumin, External Unknown 3.9 AST, External Unknown 23 ALT, External Unknown 24 Bilirubin, Total, External Unknown 0.6 Alkaline Phosphatase, External Unknown 83 GFR, Calculated, External Unknown 45.50 WBC, External Unknown 7.01 RBC, External Unknown 4.96 Hemoglobin, External Unknown 14.5 HCT, External Unknown 46.3 MCH, External Unknown 29.2 MCV, External Unknown 93.3 MCHC, External Latest Ref Range: 32.0 - 36.0 31.3 (A) RDW-CV, External Latest Ref Range: 11.8 - 14.1 19.1 (A) PLT, External Unknown 245 ABS Neutrophils, External Unknown 5.22 Neutrophils, External Unknown 74.4 Lymphocytes, External Unknown 13.6 Eosinophils, External Unknown 3.6 Basophils, External Unknown 0.7 ABS Lymphs, External Latest Ref Range: 1.2 - 3.4 0.95 (A) ABS Monocytes, External Unknown 0.49 ABS Eosinophils, External Unknown 0.25 ABS Basophils, External Unknown 0.05 Monocytes, External Unknown 7.0 Ref. Range 05/19/2020 15:25 Sodium Latest Ref Range: 136 - 145 mEq/L 138 Potassium Latest Ref Range: 3.5 - 5.0 mEq/L 4.5 Chloride Latest Ref Range: 96 - 110 mmol/L 102 CO2 Latest Ref Range: 21 - 32 mEq/L 28 BUN Latest Ref Range: 10 - 26 mg/dL 20 Creatinine Latest Ref Range: 0.66 - 1.25 mg/dL 1.06 Glucose, Serum Latest Ref Range: 70 - 100 mg/dL 105 (H) Calcium Latest Ref Range: 8.5 - 10.5 mg/dL 9.6 Anion Gap Latest Ref Range: 0 - 18 8 GFR, Calculated Unknown >60 WHITE BLOOD COUNT - [facility] Latest Ref Range: 4.0 - 10.4 10e3/ul 7.2 RED BLOOD COUNT - [facility] Latest Ref Range: 4.36 - 5.78 10e3/ul 4.74 Hemoglobin Latest Ref Range: 13.8 - 17.3 g/dl 14.3 HCT Latest Ref Range: 39.5 - 50.2 % 46.2 IG# - [facility] Latest Ref Range: 0 - 0.7 10e3/uL 0.05 IG% - [facility] Latest Ref Range: 0 - 0.9 % 0.7 MEAN CELL VOLUME - [facility] Latest Ref Range: 81 - 95 fl 97.5 (H) RED CELL DISTRI WIDTH - [facility] Latest Ref Range: <14.2 % 15.1 MEAN CORPUSCULAR HGB - [facility] Latest Ref Range: 27.6 - 33.0 pg 30.2 MEAN CORPUSCULAR HGB CONC - [facility] Latest Ref Range: 32.8 - 36.4 g/dL 31.0 (L) PLATELET COUNT Latest Ref Range: 141 - 377 10e3/ul 243 GRAN % - [facility] Latest Ref Range: 40 - 80 % 68.5 LYMPH% - [facility] Latest Ref Range: 20 - 40 % 17.8 (L) MONO% - [facility] Latest Ref Range: 0 - 12 % 9.8 EOS % - [facility] Latest Ref Range: 0 - 5 % 2 BASO % - [facility] Latest Ref Range: 0 - 2 % 1 ABSOLUTE NEUTROPHIL COUN - [facility] Latest Ref Range: 2.2 - 8.85 10e3/uL 4.9 LYMPH # - [facility] Latest Ref Range: 1.09 - 3.3 10e3/ul 1.3 MONO # - [facility] Latest Ref Range: 0.1 - 0.8 10e3/uL 0.7 EOS # - [facility] Latest Ref Range: 0.03 - 0.61 10e3/ul 0.16 BASO # - [facility] Latest Ref Range: 0.01 - 0.11 10e/uL 0.07 Ref. Range 02/14/2020 00:00 02/22/2020 00:00 Sodium, External Unknown 141 138 Potassium, External Unknown 4.9 4.2 Chloride, External Unknown 106 104 CO2, External Unknown 28.5 28.8 BUN, External Unknown 24 18 Creatinine, External Unknown 1.14 1.13 Glucose, Serum, External Unknown 128 125 Calcium, External Unknown 9.1 8.8 Total Protein, External Unknown 6.9 7.0 Albumin, External Unknown 4.1 3.9 AST, External Unknown 22 18 ALT, External Unknown 26 24 Bilirubin, Total, External Unknown 0.5 0.5 Alkaline Phosphatase, External Unknown 69 63 GFR, Calculated, External Unknown >60 >60 WBC, External Unknown 6.10 5.55 RBC, External Unknown 4.57 4.29 Hemoglobin, External Unknown 14.3 13.9 HCT, External Unknown 43.5 42.4 MCH, External Unknown 31.3 32.4 MCV, External Unknown 95.2 98.8 MCHC, External Unknown 32.9 32.8 RDW-CV, External Unknown 25.2 23.8 PLT, External Unknown 236 254 Neutrophils, External Unknown 61.9 67.4 Lymphocytes, External Unknown 28.7 23.8 Eosinophils, External Unknown 1.8 1.6 Basophils, External Unknown 0.7 0.2 ABS Lymphs, External Unknown 1.75 1.32 ABS Monocytes, External Unknown 0.40 0.36 ABS Eosinophils, External Unknown 0.11 0.09 ABS Basophils, External Unknown 0.04 0.01 Monocytes, External Unknown 6.6 6.5 ABS Neutrophils, External Unknown 3.78 3.74 Lab Results Component Value Date ?? WBC 7.21 03/29/2015 ?? WBC 7.10 09/20/2014 ?? WBC 8.75 07/26/2014 ?? WBC 9.15 06/23/2014 ?? WBC 7.48 05/10/2014 ?? HGB 14.6 03/29/2015 ?? HGB 14.7 09/20/2014 ?? HGB 15.1 07/26/2014 ?? HGB 14.9 06/23/2014 ?? HGB 14.4 05/10/2014 ?? HCT 44.5 03/29/2015 ?? HCT 43.7 09/20/2014 ?? HCT 45.5 07/26/2014 ?? HCT 44.4 06/23/2014 ?? HCT 43.3 05/10/2014 ?? MCV 91 03/29/2015 ?? MCV 92 09/20/2014 ?? MCV 91 07/26/2014 ?? MCV 89 06/23/2014 ?? MCV 88 05/10/2014 ?? PLT 219 03/29/2015 ?? PLT 210 09/20/2014 ?? PLT 196 07/26/2014 ?? PLT 212 06/23/2014 ?? PLT 220 05/10/2014 ?? Lab Results Component Value Date ?? BUN 13 03/29/2015 ?? CREATININE 0.90 03/29/2015 ?? AST 14 (L) 03/29/2015 ?? ALT 33 03/29/2015 ?? Lab Results Component Value Date ?? SEDRATE 5 05/10/2014 ?? CRP 2.9 (H) 05/10/2014 ?? Lab Results Component Value Date ?? AMOL <40 05/10/2014 ?? DSDNA <12.3 05/10/2014 ?? C3 135 05/10/2014 ?? C4 27 05/10/2014 ?? [facility]: 11/18/18: CBC with differential: CBC = 9.9 Hemoglobin = 16.5 Hematocrit = 49.2 Platelet = 25 MCV = 94.3 Neutrophil = 16.1% Lymphocyte = 20.4% Monocytes = 8.0% Eosinophil = 2.7% ?? CMP: Calcium 9.0 BUN = 16 Creatinine = 1.14 Estimated GFR > 60 Total protein = 6.9 Albumin: 4.0 Total bilirubin = 0.6 Alkaline phosphatase = 70 Sodium = 140 Potassium = 4.5 Chloride = 104 CO2 = 26.5 ?? AST = 10 low ( normal =15-37) ALT = 20 ?? Results: SURGICAL PATHOLOGY Status: Final result (Collected: 10/23/2016 18:29) ?? SURGICAL PATHOLOGY Status: Final result ?Visible to patient: Yes ([employer]) Next appt: 05/25/2018 at 11:40 inRheumatology (Sudhir Rosales MD) Order: [id number] ? 1yr ago ?? Pathology Report: SURGICAL PATHOLOGY REPORT Reports generated via electronic interface contain original data; however they are lacking the format of the original report. Caution should be taken when reading/interpreting unformatted reports. Name: ? ANTONIALORRAINE DEON Jean-Paul ? Accession #: ? [id number] ? : ? 1945 (Age: 71) ??M ?Collect Date: ? 10/23/2016 ? Location: ? [facility] ? Receive Date: ? 10/24/2016 ? Provider: SHREYA LEA MD Copy to: MINDY SZYMANSKI [employer] ? Final Pathologic Diagnosis: A. ??GASTROESOPHAGEAL JUNCITON, [...] Status: Final result ?Visible to patient: Yes ([employer]) Next appt: 05/25/2018 at 11:40 inRheumatology (Sudhir Rosales MD) Order: [id number] ? 1yr ago ?? Pathology Report: SURGICAL PATHOLOGY REPORT Reports generated via electronic interface contain original data; however they are lacking the format of the original report. Caution should be taken when reading/interpreting unformatted reports. Name: ? DEON VILLANUEVA ? Accession #: ? [id number] ? : ? 1945 (Age: 71) ??M ?Collect Date: ? 10/23/2016 ? Location: ? [facility] ? Receive Date: ? 10/24/2016 ? Provider: SHREYA LEA MD Copy to: MINDY SZYMANSKI [facility] ? Final Pathologic Diagnosis: A. ??GASTROESOPHAGEAL JUNCITON, [...] 7:55 AM ?XR CHEST 2 VIEWS (Order [id number]) Status: Final result (Exam End: 05/19/2020 16:15) Results XR CHEST 2 VIEWS ( (Order [id number]) XR CHEST 2 VIEWS Order: [id number] Status: Final result ?Visible to patient: Yes (MyChart) Next appt: None Details Reading Physician Reading Date Result Priority Dustin Ibrahim MD [phone] 05/19/2020 Narrative & Impression EXAM: RADIOLOGY/CHEST PA LAT EX. D/ (7832) CLINICAL INFORMATION: Z95.0 PACEMAKER PLACEMENT PRIOR TO [...] Ibrahim MD XR CHEST 2 VIEWS (Order [id number]) Status: Final result (Exam End: 11/09/2020 16:33) Results XR CHEST 2 VIEWS ( (Order [id number]) XR CHEST 2 VIEWS Order: [id number] Status: Final result ?Visible to patient: Yes (seen) Next appt: 01/22/2021 at 10:45 in Cardiology(Claire Lopez APRN) 0 Result Notes Details Reading Physician Reading Date Result Priority Gerald Garcia MD [phone] 11/09/2020 Narrative & Impression EXAM: RADIOLOGY/CHEST PA LAT EX. D/ (6427) CLINICAL INFORMATION: SOB/cp PROCEDURE INFORMATION: Exam: XR [...] Reported By: Gerald CAMPBELL Summary Functional Status: 1.7 Pain Tolerance: 0 - No Pain Global Estimate: 2.5 Score: 4.2 Interpretation: Low ASSESSMENT: 1.Inflammator arthritis doing well on MTX 10 tabs MTX pen was too expencive. Cr 1.04 GFR 69 12/28/2020 inflammatory arthritis doing well on MTX 10 tabs, no flares URI started Friday, with cough, sinus congestion, fever 100.1, fever blisters orally which pt stateshe has had in the past with fevers. He was not able to get out of bed on Friday and Friday and was feeling better Friday. He still has cough, nasal congestion, using saline mist and tried lanre seltzerx 1 without improvement. No loss of state or smell. I do not see any oral blisters on PE, he still has cough in office, and maxillary sinus tenderness on palpation bilaterally. He was at an event on December 17 and was talking to a person who was coughing,had 2 grand children at the house , children were not sick. Denies any other sick contacts or people who were coughing, Curbside consult with Dr. Philly Gee- pt sent to ER for covid 19 screening and was neg. Dx for URI, with chest xray neg for pneumonia or acute interstitial syndrome. Pt has been having new onset SOB since September 2020, was not able to do his spring walking, typically can do up to 10 miles, usually goes to [place] and walks daily in the winter, was not able to do that 2/2 covid panemic this year. He was much less active in the winter this year, worked around the house and some snow plowing with excavator, and a little shoveling. He was not SOB while shoveling. He has also been having chest pain but states less often which cardiology is trying to work up. 11/22/20 cardiac cath was completed which was neg. Saw PCP told him to see hematology and cardilogy, and was offered pulmonology referral, but declined at first, and is now ready to see pulmonology. He was able to do 2 flights of stairs without stopping on way to visit today, His was also SOB after 2 flights of stairs. Discussed this could be deconditioning, and he doeshave a hx of smoking, occasionally MTX can contribute to ILD, or ILD can be ideopathic. No signs of infection or acte interstitial lung disease on chest xray. Referred to Pulmonary at [facility] per their request. They states driving to [place] gets very tiring. Chest xray did show Hyperinflation, interstitial prominence, and trace basilar airspace disease. Discussed this could be smoking and/or ILD related. Pt updated by dilan. 3. up to date on labs 4. Polycythemia vera -followed by Dr. Barillas Hematology/Oncology On hydrea and aspirin 81mg. Not needing phlebotomy at this time as CBC and abs neutrophils normalized - 12/28/2020 doing well 5. moderna #1 and #2 Encounter Diagnoses Name Primary? History of seronegative inflammatory arthritis Yes ??? Encounter for long-term (current) use of medications PLAN: 1. Pt sent to ED - for covid screening which was neg 2. Referred to Pulmonary- ext- pt would like to see [facility]. Chest xray Neg for infection, but it did show Chest xray did show Hyperinflation, interstitial prominence, and trace basilar airspace disease. Discussed this could be smoking and/or ILD related. 3. Inflammatory arthritis doing well continue methotrexate 10 tabs orally once weekly. Cr 1.02 doingwell. 4. Labs every 3-4 months 5. F/u 04/03/21 at 11am. If this time does not work for you please call the clinic. 1. History of seronegative inflammatory arthritis 2. Encounter for long-term (current) use of medications No orders of the defined types were placed in this encounter. Barriers to learning identified: No Patient verbalizes understanding and agrees with plan Yes I was directly supervised by: Dr. Rosales They were present in clinic and available for consult if needed. Tod Perez APRN 12/28/2020 10:41 I spent a total of 50 minutes on the date of this encounter meeting with the patient and reviewing documentation/coordinating care as described in the above note. No procedures were performed at the time of the visit. documented in this encounter Plan of Treatment Upcoming Encounters Date Type Specialty Care Team Description 12/27/2021 Office Visit Hematology and Erin Barillas M D Oncology [address] [place] [phone] (Joi rk) 02/14/2022 Office Visit Hematology and Erin Barillas M D Oncology [address] [place] [phone] (Joi rk) 04/25/2022 Ancillary Procedure Cardiology 04/25/2022 Office Visit Cardiology Claire Lopez NP 130 [facility] [address] [phone] (Wo rk) 05/13/2022 Office Visit Rheumatology Tod Perez NP [address] [phone] (Wo rk) Scheduled Orders Name Type Priority Associated Diagnoses Order S chedule XR CHEST 2 VIEWS Imaging Routine SOB (shortness of breath) Expected: 12/28/2020, Hx of smoking Expires: 12/28 Scheduled Referrals Name Type Priority Associated Diagnoses Order S chedule AMB CONS/FOLLOW UP Outpatient Referral Routine History of Ex pected: PULMONARY seronegative 12/28/2020 inflammatory (Approximate) arthritis Encounter for long-term (current) use of medications documented as of this encounter Visit Diagnoses Diagnosis History of seronegative inflammatory art hritis - Primary Encounter for long-term (current) use of medications Encounter for long-term (current) use of other medications SOB (shortness of breath) Shortness of breath Hx of smoking Personal history of tobacco use, present ing hazards to health documented in this encounter Additional Health Concerns Infection Onset Date Last Indicated Resolved Time R/O COVID-19 12/28/2020 12/28/2020 01/02/2021 22:15 EDT documented as of this encounter Care Teams Banquet Director Relationship Specialty Start Date End Date Layne Cai MD PCP - General 04/05/20 26 [place] [phone] Claire Lopez NP Cardiovascular Disease 11/22/[address] [phone] Tod Perez NP Rheumatology 12/28/20 111 [facility], [address] [place] [phone] documented as of this encounter
--- OUTSIDE RECORDS SUMMARY | 2021-12-21 01:20 | XMS_ITS | Encounter Summary ---
:1945 Author Organization [facility] Address [address] [place] [address] Care Team Providers Name Role Phone Layne Cai MD Primary Care Provider Claire Lopez UNIFORM CAP OPERATOR Unavailable Tod Perez UNIFORM CAP OPERATOR Unavailable Reason for Visit Reason Comments Medication Management discuss TX Dizziness Encounter Details Date Type Department Care Team Description 04/03/2021 Office Visit [facility] oTd Perez, Ri story of seronegative inflammatory arthritis (Primary Dx); Rheumatology & UNIFORM CAP OPERATOR Encounter for long-term (current) use of medications Immunology - Main [address] [place], [place] [phone] [place] [address], [place] [phone] (Wo rk) Social History Tobacco [...] Sign Reading Time Taken Comments Blood Pressure 106/66 04/03/2021 1050 EDT Pulse 76 04/03/2021 1050 EDT Temperature - - Respiratory Rate - - Oxygen Saturation - - Inhaled Oxygen Concentration - - Weight 101.6 kg (224 lb) 04/03/2021 1050 EDT Height - - Body Mass Index 30.74 03/02/2021 1454 EDT documented in this encounter Functional Status [...] Patient Instructions Patient InstructionsTod Perez APRN - 04/03/2021 11:00 EDT 1. Stop methotrexate and folic acid 2. Start antibiotics from pulmonary for rash to face/head 3. Once antibiotics complete Start sulfasalazine 500mg (1 tab) orally daily x 7- 14 days if toleratedincrease to 1 tab am and 1 tab pm 3. Check labs 1 month after starting, then every 3-4 months 4. F/u jun 2021 in person SULFASALAZINE (AZULFIDINE) - Patient Fact Sheet WHAT IS IT? Sulfasalazine (Azulfidine) is considered a disease-modifying anti-rheumatic drug (DMARD). It can decrease the pain and swelling of arthritis, prevent joint damage and reduce the risk of long-term disability. Sulfasalazine is in a type of sulfa drug. You should not take it if you have a sulfa allergy. Sulfasalazine is used in the treatment of rheumatoid arthritis (RA), inflammatory bowel disease, and some other autoimmune conditions. It works to lower inflammation in the body. HOW TO TAKE IT Sulfasalazine comes in a 500mg tablet and should be taken with food and a full glass of water to avoid an upset stomach. The medication is often started at low doses when treating RA to prevent side effects, typically 1 to 2 tablets a day. After the first week, the dose may be slowly increased to the usual dosage of 2 tablets (1g) twice a day. This dose can be increased to up to 6 pills (3g) a day insome situations. An Enteric-coated (or stomach-coated) preparation is available that may lessen someof the side effects associated with sulfasalazine, particularly stomach upset. This form of sulfasalazine should not be crushed or chewed. Adequate fluid intake is required to prevent kidney stones. Itusually takes between 2 to 3 months to notice any improvement in RA symptoms after starting sulfasalazine. TIME TO EFFECT It usually takes between 1 and 3 months to notice any improvement in rheumatoid arthritis symptoms after starting sulfasalazine. SIDE EFFECTS In general, most patients can take sulfasalazine with few side effects. The most common side effectsare nausea and abdominal discomfort, which occurs early in the course of treatment. Serious side effects, such as stomach ulcers, are actually less common with sulfasalazine than with non-steroidal anti- inflammatory drugs (NSAIDs such as ibuprofen). Abdominal side effects that do occur with sulfasalazine usually improve with time, and are often avoided by slowly increasing from a low starting dose. Sun sensitivity of the skin can also be a a side effect. Those on sulfasalazine should use sunscreen (SPF 15 or higher) when outdoors and avoid prolonged exposure to sunlight. Some people will develop orange colored urine and even orange skin. This should not cause alarm. It is usually harmless and goes away after medication is stopped. In some cases, sulfasalazine may reduce the number of disease-fighting white blood cells in the body. This often does not cause symptoms, but can be detected by regular blood tests performed by your doctor. Sulfasalazine also increases the risk of reduced blood counts in people born with deficiency of an enzyme called Rqadqso-2-ujvzijral dehydrogenase. Most rashes are not serious, but occasionally patients taking sulfasalazine develop a more severe rash and should be evaluated by their doctor to determine if the medication should be discontinued. TELL YOUR DOCTOR Sulfasalazine may interfere with warfarin (Coumadin), cyclosporine or digoxin, so dose adjustments may be needed if these medications are taken together. Sulfasalazine increases the risk for liver injury if given with the drug isoniazid (INH), a drug for tuberculosis and may increase the risk for low blood sugar in patients taking certain medications for diabetes such as glimepiride (Amaryl), glyburide (Diabeta, Micronase, Glynase) and glipizide (Glucotrol). Sulfasalazine treatment is generally considered to be safe during , but usage should be discussed with your physician if you are planning to become . This medication should not be taken while , as it can cause jaundice (yellowing of baby's skin and eyes) and brainproblems in infants younger than two years old. Tell your doctor if you have ever had any unusual orallergic reaction to any other sulfa medicines as well as medicines that are chemically related to sulfa drugs. In men, sulfasalazine may lower sperm count, although this should improve after stopping the medication. ?? 2019 [employer] documented in this encounter Progress Notes Tod Perez APRN - 04/03/2021 1100 EDT Images from the original note were not included. Patient ID: Deon Villanueva is a 75 y.o. y.o. male Subjective: Chief Complaint: Medication Management (discuss TX) and Dizziness HPI: ?? Pertinent Rheumatological History: 1. Seronegative [...] presents today for a follow-up visit. ?? Changes since last visit REVIEW OF SYSTEMS: [...] X Burning on urination X Skin rash x Hand/Foot color change in cold X moderna #1 and #2 #3 Dose #3 today, denies any side effect HD flu completed 2020 Alecia Saavedra at [facility] is concerned for MTX ILD/fibrosis. Reviewed [...] poor imaging quality. All other structures normal. Rash to scalp, face, and is pruritic 2-3 months ago, started with pulmonary, then PCP today, Will start oral doxy, Will go back to [place] Jun 2021 Denies any other joint pains or swelling. [...] chest pain ??? Coronary artery disease involving [place] coronary artery of [place] heart without angina pectoris Past Medical History: Diagnosis Date ??? Arthritis [...] PLACEMENT ??? CATARACT REMOVAL bilateral ??? CHOLECYSTECTOMY 2004 ??? EYE SURGERY ??? HERNIA REPAIR Allergies Allergen Reactions ??? Lisinopril Causes chest pain. ? Myocardial bridging Current Outpatient Medications Medication ??? aspirin 81 mg EC tablet ??? atorvastatin (LIPITOR) 40 mg tablet ??? finasteride (PROSCAR) 5 mg tablet ??? hydroxyurea (HYDREA) 500 mg capsule ??? isosorbide MONOnitrate (IMDUR) 30 mg CR tablet ??? metoprolol XL (TOPROL-XL) 25 mg tablet ??? omeprazole (PRILOSEC) 40 mg capsule No current facility-administered medications for this visit. ROS - SEE HPI I reviewed the 10 point ROS performed by the nurse which is as documented in Prism. Objective: BP 106/66 (BP Cuff Location: Left arm, BP Patient Position: Sitting, BP Cuff Sizes: Adult, large) Pulse 76 Wt (!) 101.6 kg (224 lb) BMI 30.74 kg/m?? General: No acute distress. Alert, fully oriented, pleasant, conversant. HEENT: Conjunctivae/corneas clear. Pupils equal, Sclerae anicteric. Mucus membranes moist; oropharynx clear. Neck supple, symmetrical, trachea midline maxillary sinus tender to palpation bilaterally Lungs: Clear to auscultation bilaterally. Cough present Heart: Regular rate and rhythm, S1, S2 present, no murmur Abdomen: Soft, non-tender, non-distended. Extremities: Extremities without cyanosis, 1+ edema bilateral legs Skin: Macular papular with acne like pustules, to face, ears, scalp, pruritic Musculoskeletal: Spine: No significant tenderness. Normal range [...] of motion present. Ankle/Foot: In compression stockings, hard to palpate 2-5 MTP but I [...] Status: Final result ?Visible to patient: Yes ([employer]) Next appt: 05/25/2018 at 11:40 inRheumatology (Sudhir Rosales MD) Order: [id number] ? 1yr ago ?? Pathology Report: SURGICAL PATHOLOGY REPORT Reports generated via electronic interface contain original data; however they are lacking the format of the original report. Caution should be taken when reading/interpreting unformatted reports. Name: ? DEON VILLANUEVA ? Accession #: ? [id number] ? : ? 1945 (Age: 71) ??M ?Collect Date: ? 10/23/2016 ? Location: ? [facility] ? Receive Date: ? 10/24/2016 ? Provider: SHREYA LEA MD Copy to: MINDY SHEFFIELD ? Final Pathologic Diagnosis: A. ??GASTROESOPHAGEAL JUNCITON, [...] Status: Final result ?Visible to patient: Yes ([employer]) Next appt: 05/25/2018 at 11:40 inRheumatology (Sudhir Rosales MD) Order: [id number] ? 1yr ago ?? Pathology Report: SURGICAL PATHOLOGY REPORT Reports generated via electronic interface contain original data; however they are lacking the format of the original report. Caution should be taken when reading/interpreting unformatted reports. Name: ? DEON VILLANUEVA ? Accession #: ? [id number] ? : ? 1945 (Age: 71) ??M ?Collect Date: ? 10/23/2016 ? Location: ? [facility] ? Receive Date: ? 10/24/2016 ? Provider: SHREYA LEA MD Copy to: MINDY SZYMANSKI ICE SKATING COACH ? Final Pathologic Diagnosis: A. ??GASTROESOPHAGEAL JUNCITON, [...] x 0.1 cm). Submitted intact in B1. Minat Moscoso 10/25/2016 7:55 AM ?XR CHEST 2 VIEWS (Order [id number]) Status: Final result (Exam End: 05/19/2020 16:15) Results XR CHEST 2 VIEWS ( (Order [id number]) XR CHEST 2 VIEWS Order: [id number] Status: Final result ?Visible to patient: Yes (MyChart) Next appt: None Details Reading Physician Reading Date Result Priority Dustin Ibrahim MD [phone] 05/19/2020 Narrative & Impression EXAM: RADIOLOGY/CHEST PA [...] Ibrahim MD XR CHEST 2 VIEWS (Order [id number]) Status: Final result (Exam End: 11/09/2020 16:33) Results XR CHEST 2 VIEWS ( (Order [id number]) XR CHEST 2 VIEWS Order: [id number] Status: Final result ?Visible to patient: Yes (seen) Next appt: 01/22/2021 at 10:45 in Cardiology(Claire Lopez APRN) 0 Result Notes Details Reading Physician Reading Date Result Priority Gerald Garcia MD [phone] 11/09/2020 Narrative & Impression EXAM: RADIOLOGY/CHEST PA [...] Reported By: Gerald CAMPBELL Summary Functional Status: Pain Tolerance: 1 Global Estimate: 2 Score: Interpretation: ASSESSMENT: 1.Inflammator arthritis doing well on MTX 10 tabs MTX pen was too expencive. Alecia Saavedra at [facility] is concerned for MTX ILD/fibrosis. Reviewed that MTX 25mg po weekly completely resolved his hand swelling, but will try him on SSZ, altarava. I would prefer to avoid biologics as he has been so MTX responsive. 2. 03/27/21 ECHO EF 55-60%, aortic valve sclerotic with mild to moderate aortic regurgitation, mild mitral annual calcification, trace mitral regurgitation, trace triscupid regurgitation, IVC could notbe assessed d/t poor imaging quality. All other structures normal. 3. Pt has been having new onset SOB since September 2020, was not able to do his spring walking, typically can do up to 10 miles, usually goes to [place] and walks daily in the winter, was [...] on chest xray. Referred to Pulmonary at [facility] per their request. They states driving to [place] gets very tiring. Chest xray did show Hyperinflation, interstitial prominence, and trace basilar airspace disease. Discussed this could be smoking and/or ILD related. Pt updated by [employer] Wait[employer]. 04/03/2021 Alecia Saavedra at [facility] is concerned for MTX ILD/fibrosis. Reviewed that MTX 25mg po weekly completely resolved his hand swelling, but will try him on SSZ, altarava. I would prefer to avoid biologics as he has been so MTX responsive. 3. up to date on labs they are being faxed 4. Polycythemia vera -followed by Dr. Barillas Hematology/Oncology On hydrea and aspirin 81mg. Not needing phlebotomy at this time as CBC and abs neutrophils normalized - 12/28/2020 doing well 5. moderna #1 and #2 and #3 6. HD flu 2020 complete 7. Rash to face, head and scalp. Seen by pulmonary and PCP. Pt will start doxycycline x 10 days Encounter Diagnoses Name Primary? History of seronegative inflammatory arthritis Yes ??? Encounter for long-term (current) use of medications PLAN: 1. Stop methotrexate and folic acid 2. Start antibiotics from pulmonary for rash to face/head 3. Once antibiotics complete Start sulfasalazine 500mg (1 tab) orally daily x 7- 14 days if toleratedincrease to 1 tab am and 1 tab pm 3. Check labs 1 month after starting, then every 3-4 months 4. F/u jun 2021 in person 1. History of seronegative inflammatory arthritis COMPLETE BLOOD COUNT AND DIFFERENTIAL COMPREHENSIVE METABOLIC PANEL (CMP) 2. Encounter for long-term (current) use of medications COMPLETE BLOOD COUNT AND DIFFERENTIAL COMPREHENSIVE METABOLIC PANEL (CMP) Orders Placed This Encounter Procedures ??? Complete Blood Count and Differential Standing Status: Standing Number of Occurrences: 12 Standing Expiration Date: 04/03/2022 Order Specific Question: Release to Patient (Note: Choosing Manual Release will only block results from tests performed at [facility] and does not apply for Miscellaneous Test Order) Answer: Immediate ??? Comprehensive Metabolic Panel (CMP) Standing Status: Standing Number of Occurrences: 12 Standing Expiration Date: 04/03/2022 Scheduling Instructions: Blood Test and Fasting How long do I have to fast for before a blood test? - If a fasting blood test is ordered, you should not have anything to eat or drink (except water) for at least eight hours. This usually involves an overnight fast. - You should continue to take any prescription medications, unless your physician directed you not to take them. - Smoking and exercise may affect your results as well, so you should refrain from these activitiesas much as possible during this time. If you have any concerns about refraining from food for this period of time, talk to your physician. Order Specific Question: The lab recommends a fasting sample. Should phlebotomy collect the sample if the patient is NOT fasting? Answer: Yes Order Specific Question: Release to Patient (Note: Choosing Manual Release will only block results from tests performed at [facility] and does not apply for Miscellaneous Test Order) Answer: Immediate Barriers to learning identified: No Patient verbalizes understanding and agrees with plan Yes I was directly supervised by: Dr. Rosales They were present in clinic and available for consult if needed. Tod Perez APRN 04/03/2021 13:27 I spent a total of 30 minutes on the date of this encountermeeting with the patient and reviewing documentation/coordinating care as described in the above note. No procedures were performed at the time of the visit. documented in this encounter Plan of Treatment Upcoming Encounters Date Type Specialty Care Team Description 12/27/2021 Office Visit Hematology and Erin Barillas M D Oncology [address] [place] [phone] (Joi diallo) 02/14/2022 Office Visit Hematology and Erin Barillas M D Oncology [address] [phone] (Joi diallo) 04/25/2022 Ancillary Procedure Cardiology 04/25/2022 Office Visit Cardiology Claire Lopez NP [address] [place] [address] (Joi diallo) 05/13/2022 Office Visit Rheumatology Tod Perez NP [address] [phone] (Wo rk) Scheduled Orders Name Type Priority Associated Diagnoses Order S chedule COMPLETE BLOOD COUNT AND Lab Routine History of seron egative Months - Every 1 DIFFERENTIAL inflammatory art hritis (Monthly) for 12 Encounter for long-term Occu rrences starting (current) use of 04/03/2021 until medications 04/03/2022 COMPREHENSIVE METABOLIC Lab Routine History of serone gative Months - Every 1 PANEL (CMP) inflammatory art hritis (Monthly) for 12 Encounter for long-term Occu rrences starting (current) use of 04/03/2021 until medications 04/03/2022 documented as of this encounter Visit Diagnoses Diagnosis History of seronegative inflammatory art hritis - Primary Encounter for long-term (current) use of medications Encounter for long-term (current) use of other medications documented in this encounter Discontinued Medications Medication Sig Discontinue Reason Start Date End Date methotrexate 2.5 mg Take 10 Tabs by 11/16/202004/03 tabletIndications: mouth once a week. Inflammation around joint, Encounter for long-term (current) use of medications folic acid (FOLVITE) 1 mg Take 1 Tab by 09/20/2020 1 tabletIndications: mouth daily. Inflammation around joint, Encounter for long-term (current) use of medications documented as of this encounter Care Teams Boatbuilder Supervisor Relationship Specialty Start Date End Date Layne Cai MD PCP - General 04/05/20 [address] [place] [phone] Claire Lopez NP Cardiovascular Disease 11/22/20 130 [facility] [address] [place] [phone] Tod Perez NP Rheumatology 12/28/[address] [place] [address], [facility] [address] [place] [phone] documented as of this encounter
--- OUTSIDE RECORDS SUMMARY | 2021-12-21 01:20 | XMS_ITS | Encounter Summary ---
:1945 Author Organization [facility] Address [address] [place] [address] Care Team Providers Name Role Phone Layne Cai MD Primary Care Provider Reason for Visit Reason Onset Date Comments Medications Refill 11/12/2020 Encounter Details Date Type Department Care Team Description 11/12/2020 Refill [facility] Erin Barillas MD Medications Refill Hematology & Oncology - 111 [facility], [address], [address] [place], [place] [id number] [place] [address] [phone] (Wo rk) Social History Tobacco Use [...] hydroxyurea (HYDREA) 500 Take 1 Cap by mouth 90 Cap 0 02/12/2021 mg capsuleIndications: daily for 90 days. polycythemia vera documented in this encounter Miscellaneous Notes Telephone Encounter - Thalia Linda RN - 11/14/2020 0900 EDT From: Praneeth Villanueva To: Office of Erin Barillas MD Sent: 11/12/2020 9:15 EDT Subject: Medication Renewal Request Refills have been requested for the following medications: hydroxyurea (HYDREA) 500 mg capsule [Erin Barillas MD] Preferred pharmacy: [facility] [address] documented in this encounter Plan of Treatment Upcoming Encounters Date Type Specialty Care Team Description 12/27/2021 Office Visit Hematology and Erin Barillas M D Oncology [address] [place] [phone] (Joi diallo) 02/14/2022 Office Visit Hematology and Erin Barillas M D Oncology [address] [place] [phone] (Jio rk) 04/25/2022 Ancillary Procedure Cardiology 04/25/2022 Office Visit Cardiology Claire Lopez NP 130 [facility] [address] [phone] (Wo rk) 05/13/2022 Office Visit Rheumatology Tod Perez NP 111 [facility] 5 [place] [address] (Wo rk) documented as of this encounter Visit Diagnoses Not on filedocumented in this encounter Discontinued Medications Medication Sig Discontinue Reason Start Date End Date hydroxyurea (HYDREA) 500 Take 1 Cap by Reorder 08/14/2020 mg capsuleIndications: mouth daily for 90 polycythemia vera days. documented as of this encounter Care Teams Mid Level Developer Relationship Specialty Start Date End Date Layne Cai MD PCP - General 04/05/[address] [place] [phone] documented as of this encounter
--- OUTSIDE RECORDS SUMMARY | 2021-12-21 01:20 | XMS_ITS | Encounter Summary ---
:1945 Author Organization [facility] Address [address] [place] [address] Care Team Providers Name Role Phone Layne Cai MD Primary Care Provider Claire Lopez NP Unavailable Tod Perez EQUINE DENTIST Unavailable Encounter Details Date Type Department Care Team Description 12/28/2020 Telephone [facility] Juanjose Perez NP Rheumatology & Immunology - [address] [facility], [address], [address] [place], [place] [phone] [place] [phone] (Wo rk) Social History Tobacco Use [...] this encounter Miscellaneous Notes Telephone Encounter - Tod Perez APRN - 12/28/2020 1136 EDT Spoke to [facility] intake, Sending pt for covid screening after curbside consult with Dr. Philly Flores Friday- cough, sore throat, headache, fever 100.1 [...] without stopping on way to visit today, He had interaction with a person who was coughing on December 17. New onset SOB started September 2020, was not able to do his spring walking, usually walks 6-10 miles daily, did not go to [place] in the winter covid and was much less active. Hx of smoking. On PE maxillary sinus tenderness bilaterally, cough, no wheezes or crackles Chest xray ordered for SOB, cough, screen for pneumonia and on MTX 10 tabs weekly, ddx screen for ILD documented in this encounter Plan of Treatment Upcoming Encounters Date Type Specialty Care Team Description 12/27/2021 Office Visit Hematology and Erin Barillas M D Oncology 111 [facility] [address] 2 [place] [phone] (Wo rk) 02/14/2022 Office Visit Hematology and Erin Barillas M D Oncology 111 [facility] 2 [place] [phone] (Wo rk) 04/25/2022 Ancillary Procedure Cardiology 04/25/2022 Office Visit Cardiology Claire Lopez NP [address] [facility] [address] [place] [address] (Wo rk) 05/13/2022 Office Visit Rheumatology Tod Perez NP 111 [facility] 5 [place] [phone] (Wo rk) documented as of this encounter Visit Diagnoses Not on filedocumented in this encounter Additional Health Concerns Infection Onset Date Last Indicated Resolved Time R/O COVID-19 12/28/2020 12/28/2020 01/02/2021 22:15 EDT documented as of this encounter Care Teams Pocket Setter Relationship Specialty Start Date End Date Layne Cai MD PCP - General 04/05/[address] [place] [phone] Claire Lopez NP Cardiovascular Disease 11/22/[address] [facility] [address] [place] [address] Tod Perez NP Rheumatology 12/28/[address] [phone] documented as of this encounter
--- OUTSIDE RECORDS SUMMARY | 2021-12-21 01:20 | XMS_ITS | Encounter Summary ---
:1945 Author Organization [facility] Address [address] [place] [address] Care Team Providers Name Role Phone Layne Cai MD Primary Care Provider Claire Lopez RADIATOR MECHANIC Unavailable Reason for Visit Reason Comments Follow-up Encounter Details Date Type Department Care Team Description 12/15/2020 Office Visit [facility] Erin Barillas MD Polycythemia vera Hematology & [address] [place] [address] ([facility]LY [facility] ([facility]) [facility], [address] [place], [place] [id number] [place] [address] [phone] (Wo rk) Social History Tobacco Use [...] / COVID-19? documented as of this encounter Last Filed Vital Signs Vital Sign Reading Time Taken Comments Blood Pressure 146/72 12/15/2020 1350 EDT Pulse 64 12/15/2020 1350 EDT Temperature 36.1 ??C (96.9 ??F) 12/15/2020 1350 EDT Respiratory Rate 16 12/15/2020 1350 EDT Oxygen Saturation 99% 12/15/2020 1350 EDT Inhaled Oxygen Concentration - - Weight 103.5 kg (228 lb 3.2 oz) 12/15/2020 1350 EDT Height 181.8 cm (5' 11.58) 12/15/2020 1350 EDT Body Mass Index 31.32 12/15/2020 1350 EDT documented in this encounter Functional Status [...] documented as of this encounter Progress Notes Erin Barillas MD - 12/15/2020 1400 EDT In person visit Subjective: Chief Complaint Patient presents with ??? Follow-up HPI Mr. Villanueva is a pleasant 74 year old gentleman with past medical history of Hypertension, Hyperlipidemia, Arthritis (followed by Dr. Rosales), currently on weekly oral Methotrexate and folicacid supplements, BPH, history of sinus bradycardia and Type 2 sinoatrial exit block, s/p pacemaker placement and varicose veins. 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 Currently on Hydrea Interval Visit: Mr. Villanueva is accompanied to the clinic today by his . Reports having some dyspnea with exertion and substernal chest pain. He underwent a thorough cardiac workup for this including a nuclear stress test followed by a cardiac catheterization. Reports that this was within normal limits. He continues to have some dyspnea. PCP had recommended PFTs but he refused. Otherwise, no new complaints. 12 point ROS performed with pertinent positives and negatives as documented in HPI and ROS summary below. Previous Visit Patient reports that he generally feels well. States that he is very active and works 8-10 hours a day. Denies any fatigue. However, does report an unintentional weight loss of 8-10 lbs over the past 6months. States that he has a good appetite. Denies any fevers or chills. No night sweats. No headaches. Occasional dizziness but no loss of consciousness reported. No vision changes reported. No URI symptoms. Denies any dyspnea or cough. No chest pain or palpitations. No nausea or vomiting. No abdominal pain. No changes in bowel habits. No blood in stool or urine reported. Reports occasional tinglingin the left hand. Denies any pruritus. Denies any skin rashes. States that he spent the winter in [place] and noted that his fingers would turn red and get cold very easily. Denies any epistaxis, gum bleeding or easy bruising. BCR-ABL negative. Epo low. JAK2 positive. 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 Received phlebotomy initially followed by initiation of Hydrea. Noted to have significant myelosuppression with hydrea, requiring dose reduction to 500 mg daily. Patient denies any history of blood clots. 12 point ROS performed with pertinent positives and negatives as documented in HPI and ROS summary below. Social history: Retired. Worked for the [employer]. Former smoker with 20 pack year smoking history, quit 40 years ago. Family history: No family history of cancer, thrombosis or other blood disorders that patient is aware of. Past Medical History: Diagnosis Date ??? Arthritis [...] 2004 ??? EYE SURGERY ??? HERNIA REPAIR Family History Family History Problem Relation Age of Onset ??? Diabetes Father ??? Stroke Father ??? Diabetes Brother ??? Arthritis Mother unkown type Social History Social History Socioeconomic History ??? Marital status: Spouse name: None ??? Number of children: None ??? Years of education: None ??? Highest education level: None Occupational History ??? None Tobacco Use ??? Smoking status: Former Smoker Packs/day: 3.00 Years: 20.00 Pack years: 60.00 Types: Cigarettes, Cigars Quit date: 09/15/1980 Years since quittin.2 ??? Smokeless tobacco: Never Used ? ? Tobacco comment: Quit >30 years ago Substance and Sexual Activity ??? Alcohol use: Yes Comment: Occasional beer ??? Drug use: No ??? Sexual activity: None Other Topics Concern ??? 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 Difficulty of Paying Living Expenses: Food Insecurity: ??? Worried About Running Out of Food in the Last Year: ??? Ran Out of Food in the Last Year: Transportation Needs: ??? Lack of Transportation (Medical): ??? Lack of Transportation (Non-Medical): Physical Activity: ??? Days of Exercise per Week: ??? Minutes of Exercise per Session: Stress: ??? Feeling of Stress : Social Connections: ??? Frequency of Communication with Friends and Family: ??? Frequency of Social Gatherings with Friends and Family: ??? Attends Sabianist Services: ??? Active Member of Clubs or Organizations: ??? Attends Club or Organization Meetings: ??? Marital Status: Current Outpatient Medications Medication ??? aspirin 81 [...] No current facility-administered medications for this visit. Allergies Allergen Reactions ??? Lisinopril Causes chest pain. ? Myocardial bridging Review of Systems Neurological: Positive for dizziness. - See HPI Objective: BP (!) 146/72 Pulse 64 Temp 36.1 ??C (96.9 ??F) (Tympanic) Resp 16 Ht 181.8 cm (71.58) Wt(!) 103.5 kg (228 lb 3.2 oz) SpO2 99% BMI 31.32 kg/m?? ECOG Performance Status: 0 Physical Exam: Resting comfortably. In no acute distress Lungs clear to auscultation +S1/S2. No murmurs. No pedal edema. No calf tenderness Labs: Labs: Complete Blood Count Lab Results Component Value Date WBC 7.59 11/22/2020 RBC 4.86 11/22/2020 HGB 13.9 11/22/2020 HCT 43.7 11/22/2020 MCV 90 11/22/2020 MCH 28.6 11/22/2020 MCHC 31.8 (L) 11/22/2020 PLT 315 11/22/2020 MPV 11.8 11/22/2020 RDWCV 18.4 (H) 11/22/2020 Differential (Absolute) Lab Results Component Value Date DIFFTYPE Auto 12/06/2019 NEUTROABS 6.74 12/06/2019 LYMPHSABS 1.41 12/06/2019 MONOSABS 0.48 12/06/2019 EOSABS 0.26 12/06/2019 BASOSABS 0.04 03/29/2015 Basic Metabolic Panel Lab Results Component Value Date NA 143 11/22/2020 K 4.8 11/22/2020 CL 106 11/22/2020 CO2 25 11/22/2020 BUN 22 11/22/2020 CREATININE 1.07 11/22/2020 CALCGFR 67 11/22/2020 CALCIUM 9.6 12/06/2019 CALCCA 9.4 12/06/2019 MG 2.00 11/09/2020 Gastrointestinal Lab Results Component Value Date ALKPHOS 68 12/06/2019 AST 26 12/06/2019 ALT 16 12/06/2019 TBIL <0.5 12/06/2019 TP 7.1 12/06/2019 LABALBU 4.3 12/06/2019 Labs ordered, reviewed and interpreted by me today Review of records from patient's PCP's office demonstrates recent onset of polycythemia since May 2019 with Hgb ranging from 18-18.8, WBC count 8, Platelets ranging from 426-471. 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 Epo 1.6 (Low) Assessment: Mr. Villanueva is a pleasant 74 year old gentleman with past medical history of Hypertension, Hyperlipidemia, Arthritis (followed by Dr. Rosales), currently on weekly oral Methotrexate and folicacid supplements, BPH, history of sinus bradycardia and Type 2 sinoatrial exit block, s/p pacemaker placement and varicose veins. Referred to Hematology for evaluation of polycythemia. As per the WHO criteria, diagnosis of Polycythemia vera (PV) includes the following: Major: 1. Hgb above 16.5 in men 2. JAK2 V617F mutation present 3. Bone marrow biopsy findings consistent with PV. Minor: 4. Serum Erythropoietin level below reference range for normal. Diagnosis requires the presence of either all 3 major criteria or the first two major and minor criteria. Given the presence of Hgb above 18, JAK2 V617F mutation and now a confirmed low Erythropoietin level, patient's diagnosis of Polycythemia Vera is confirmed. No need to proceed with a bone marrow biopsy at this time. I explained to the patient and his the natural history of PV and risk of thrombosis, stroke, cardiovascular complications, bleeding and possible risk of transformation to secondary MDS, myelofibrosis and AML. Given that the patient is above the age of 60 years, he would be considered to have high-risk disease, even in the absence of a history of thrombotic events. The risk in this definition typically refers to a risk of thrombotic events Treatment for high risk PV typically consists of initiation of phlebotomy and likely cytoreductive therapy, and modification of lifestyle factors that would increase risk of cardiovascular complications. Plan: 1. Continue Hydrea. Hematocrit <45 so will hold off on further phlebotomy. 2. Continue low-dose Aspirin 81mg daily. 3. Recommend Pulmonary follow up given persistent dyspnea. We discussed alarm symptoms including but not limited to worsening fatigue, night sweats, fever, chills, weight loss, abdominal pain, nausea, dyspnea, chest pain, that would prompt an urgent medical evaluation. Patient expresses understanding and is agreeable to this plan of care I explained the above findings to the patient who is agreeable to this course of action. Required billing statement: I spent a total of 40 minutes on the date of this encounter meeting withthis patient, reviewing medical records, radiology reports and studies, laboratory results, updatingthe chart and records, documenting today's findings and recommendations, writing orders as necessary, and reviewing this all with the patient and coordinating care and followup as necessary. rEin Barillas MD documented in this encounter Plan of Treatment Upcoming Encounters Date Type Specialty Care Team Description 12/27/2021 Office Visit Hematology and Erin Barillas M D Oncology [address] [place] [phone] (Wo rk) 02/14/2022 Office Visit Hematology and Erin Barillas M D Oncology [address] [place] [phone] (Wo rk) 04/25/2022 Ancillary Procedure Cardiology 04/25/2022 Office Visit Cardiology Claire Lopez NP [address] [phone] (Wo rk) 05/13/2022 Office Visit Rheumatology Tod Perez NP [address] [phone] (Wo rk) documented as of this encounter Visit Diagnoses Diagnosis Polycythemia vera (HCC) - Primary documented in this encounter Discontinued Medications Medication Sig Discontinue Reason Start Date End Date ibuprofen (MOTRIN) 200 Take 200 mg by mouth 12/15/2020 mg tablet every 6 hours as needed for Pain. documented as of this encounter Care Teams Rent And Miscellaneous Remittance Clerk Relationship Specialty Start Date End Date Layne Cai MD PCP - General 04/05/[address] [place] [phone] Claire Lopez NP Cardiovascular Disease 11/22/[address] [place] [address], [place] [phone] documented as of this encounter
--- OUTSIDE RECORDS SUMMARY | 2021-12-21 01:20 | XMS_ITS | Encounter Summary ---
:1945 Author Organization [facility] Address [address] [place] [address] Care Team Providers Name Role Phone Layne Cai MD Primary Care Provider Claire Lopez PROFESSOR OF SOCIOLOGY Unavailable Tod Perez PROFESSOR OF SOCIOLOGY Unavailable Reason for Referral Prior Authorization (See Order Priority) - Authorized Specialty Diagnoses / Procedures Referred By Contact Refer red To Contact Infusion Therapy Diagnoses Polycythemia vera (HCC) Erin Barillas MD [facility] [address] [place] [phone] [facility], [address] [place], [place] Fax: [phone] Referral ID Status Reason Start Expiration Visits Visits Date Date Requested Authorized [id number] Authorized Specialty 04/23/2021 06/15/2021 1 1 Services [...] Etc) Comments Therapeutic phleb order from 08/2020 Encounter Details Date Type Department Care Team Description 04/23/2021 Orders Only [facility] Rehan Bearden ([facility]) Hematology & Oncology TRAM Diop (Prim augustine Dx) - [address] [phone] Social History Tobacco Use Types Packs/Day Years [...] documented as of this encounter Progress Notes Chikis Bearden RN - 04/23/2021 1350 EST requested patient have therapeutic phlebotomy week of 04/30. Spoke with Jatinder at [facility], placed new [id number] to be scheduled. documented in this encounter Plan of Treatment Upcoming Encounters Date Type Specialty Care Team Description 12/27/2021 Office Visit Hematology and Erin Barillas M D Oncology [address] [place] [address], [facility], [address] [place] [phone] (Wo rk) 02/14/2022 Office Visit Hematology and Erin Barillas M D Oncology 111 [facility] 2 [place] [phone] (Wo rk) 04/25/2022 Ancillary Procedure Cardiology 04/25/2022 Office Visit Cardiology Claire Lopez NP [address] [place] [address] [phone] (Wo rk) 05/13/2022 Office Visit Rheumatology Tod Perez NP [address] [phone] (Wo rk) Scheduled Referrals Name Type Priority Associated Order Schedule Diagnoses AMB CONS/FOLLOW Outpatient Routine/Next Polycythemia vera Expecte d: UP SHEP 4 Referral Available (HCC) 04/30/2021 INFUSIONS (Approximate), Expires: 04/23/2022 documented as of this encounter Visit Diagnoses Diagnosis Polycythemia vera (HCC) - Primary documented in this encounter Care Teams Ophthalmology Assistant Relationship Specialty Start Date End Date Layne Cai MD PCP - General 04/05/[address] [place] [phone] Claire Lopez NP Cardiovascular Disease 11/22/[address] [place] [address] [phone] Tod Perez NP Rheumatology 12/28/[address] [phone] documented as of this encounter
--- OUTSIDE RECORDS SUMMARY | 2021-12-21 01:20 | XMS_ITS | Encounter Summary ---
:1945 Author Organization [facility] Address [address] [place] [address] Care Team Providers Name Role Phone Layne Cai MD Primary Care Provider Claire Lopez STRUCTURAL ANALYSIS ENGINEER Unavailable Tod Perez STRUCTURAL ANALYSIS ENGINEER Unavailable Encounter Details Date Type Department Care Team Description 12/28/2020 Emergency [facility] Margaret Villavicencio Acute viral syndrome Emergency Department Octavia Castellanos (Primary Dx) - [facility] [address] 111 [facility] [address] [address] [phone] (Wo rk) Social History Tobacco Use Types [...] Reading Time Taken Comments Blood Pressure 140/78 12/28/2020 1400 EDT Pulse - - Temperature - - Respiratory Rate 17 12/28/2020 1400 EDT Oxygen Saturation 98% 12/28/2020 1400 EDT Inhaled Oxygen Concentration - - Weight - [...] making decisions? documented as of this encounter Discharge Instructions Margaret Bell MD - 12/28/2020 Thank you for trusting me with your emergent medical care. It was a privilege to be your doctor today. I am sorry you were not feeling well. We did a thorough evaluation in the emergency department including blood work and a lung ultrasound. The cause of your symptoms is most likely due to a viral syndrome with sore throat and nasal congestion. Fortunately, no immediately dangerous or emergent condition was identified. You had no evidence of pneumonia on your lung ultrasound or exam, your labs were reassuringly normal. Please continue your usual medications and activities. Please return or see your doctor immediately should you develop persistent fever lasting more than 48 hours, severe headache or neck stiffness, worsening shortness of breath, chest pain, neurologic symptoms, new or worsening symptoms. Please ask your nurse or me if you have questions about your care. Please follow-up with your regular doctor (or the doctor you were referred to) as directed. Indications for more urgent follow-up are listed but you may return to the Emergency Department at ANY time for any reason, particularly for any new or concerning symptoms. I hope you feel better soon. Sincerely, Margaret Villavicencio MD documented in this encounter Medications at Time of Discharge Medication Sig Dispensed Refills Start Date End Date aspirin 81 mg EC tablet Take 81 mg by mouth 0 daily. finasteride (PROSCAR) 5 mg Take 5 mg by mouth 0 tablet daily. metoprolol XL (TOPROL-XL) TK 1 T PO D 0 0 25 mg tablet omeprazole (PRILOSEC) 40 0 04/28/2019 mg capsule atorvastatin (LIPITOR) 40 Take 1 Tab by mouth 90 Tab 3 0 11/09/2020 06/14/2021 mg tablet at bedtime. folic acid (FOLVITE) 1 mg Take 1 Tab by mouth 90 Tab 3 0 09/20/2020 04/03/2021 tabletIndications: daily. Inflammation around joint, Encounter for long-term (current) use of medications hydroxyurea (HYDREA) 500 Take 1 Cap by mouth 90 Cap 0 02/12/2021 mg capsuleIndications: daily for 90 days. polycythemia vera isosorbide MONOnitrate Take 1 Tab by mouth 90 Tab 3 10/1503/02/2021 (IMDUR) 60 mg CR tablet daily. methotrexate 2.5 mg Take 10 Tabs by 120 Tab 1 11/16/2020 04/03/2021 tabletIndications: mouth once a week. Inflammation around joint, Encounter for long-term (current) use of medications documented as of this encounter Discharge Disposition Disposition Code Departure Means Destination Home or Self [place] documented in this encounter ED Notes Margaret Villavicencio MD - 12/28/2020 1258 EDT EMERGENCY DEPARTMENT ATTENDING NOTE Scribe Attestation: This documentation is recorded by Lawanda Carrera acting as Scribe under the direction and presence of Margaret Villavicencio*. Margaret Villavicencio*: I personally performed the services recorded by the scribe in my presence. I confirm the scribe's documentation has been reviewed by me to accurately and completely record mywork, treatment, procedures, and medical decision making. CHIEF COMPLAINT Fever, nasal congestion MEDICAL DECISION MAKING: This patient received an evaluation and medical screening exam for emergent medical conditions at the [facility] on 12/28/2020 I reviewed past medical history, I reviewed relevant prior medical records. I reviewed all labs, EKGs, and imaging studies, pertinent results are discussed below. More detailedresults are found at the bottom of this note. Symptoms and exam most consistent with acute viral upper respiratory infection with mild sore throat, nasal congestion and a mild headache. He has no throat erythema, no exudate, no swelling therefore I think bacterial pharyngitis is unlikely.He has an unchanged chronic cough, clear lungs bilaterally on exam, no worsening of chronic shortness of breath and fwbrf-sj-lmsl lung ultrasound very reassuring with no evidence of an acute interstitial syndrome, consolidation or viral process. 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 Considered tickborne illness though no known tick bites or rashes. No joint swelling. No symptoms of GI infection. No symptoms of infection. Plan for basic labs, Covid swab, Lyme test. ED COURSE: Patient continued to feel well. Labs reviewed and unremarkable. Plan for discharge home with supportive care, PCP follow-up and return precautions. FINAL IMPRESSION Final diagnoses: Acute viral syndrome DISPOSITION: home HPI: Praneeth Villanueva is a 75 y.o. 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 He reports a several month history of shortness of breath that is unchanged and a dry cough that he has had for several years that is also unchanged. He spoke with his PCPs office over the phone about the symptoms and they were concerned about possible Covid though he has been fully vaccinated and referred him to the emergency department. Patient reports mild gradual onset headache as well but no neck stiffness. He denies chest pain. Denies leg swelling. Denies rash. Denies any known tick bites. Denies known sick contacts. Denies nausea, vomiting or diarrhea. No abdominal pain. He has been eating and drinking well. He is not on any immunosuppression other than methotrexate. REVIEW OF SYSTEMS Constitutional:+low grade fevers Eyes: Denies vision changes HENT: +mild sore throat Respiratory: + chronic SOB Cardiovascular: Denies chest pain GI: Denies abdominal pain Musculoskeletal: Denies leg swelling Skin: Denies rash Neurologic: Denies focal weakness : Denies dysuria PAST MEDICAL HISTORY Past Medical History: Diagnosis Date ??? Arthritis ??? Biliary colic ??? Cataract bilateral ??? Enlarged prostate ??? GERD (gastroesophageal reflux disease) ??? 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 Hypercholesteremia ??? Hypertension ??? Inguinal hernia bilateral ??? Pacemaker ??? Sleep apnea weaing cpap SURGICAL HISTORY Past Surgical History: Procedure Laterality Date ??? CARDIAC PACEMAKER PLACEMENT ??? CATARACT REMOVAL bilateral ??? CHOLECYSTECTOMY 2005 ??? EYE SURGERY ??? HERNIA REPAIR CURRENT MEDICATIONS No current facility-administered medications for this encounter. Current Outpatient Medications Medication ??? aspirin 81 mg EC tablet ??? atorvastatin (LIPITOR) 40 mg tablet ??? finasteride (PROSCAR) 5 mg tablet ??? folic acid (FOLVITE) 1 mg tablet ??? hydroxyurea (HYDREA) 500 mg capsule ??? isosorbide MONOnitrate (IMDUR) 60 mg CR tablet ??? methotrexate 2.5 mg tablet ??? metoprolol XL (TOPROL-XL) 25 mg tablet ??? omeprazole (PRILOSEC) 40 mg capsule ALLERGIES Allergies Allergen Reactions ??? Lisinopril Causes chest pain. ? Myocardial bridging FAMILY HISTORY Family History Problem Relation Age of Onset ??? Diabetes Father ??? Stroke Father ??? Diabetes Brother ??? Arthritis Mother unkown type SOCIAL HISTORY: Social History Socioeconomic History ??? Marital status: Spouse name: None ??? Number of children: None ??? Years of education: None ??? Highest education level: None Occupational History ??? None Tobacco Use ??? Smoking status: Former Smoker Packs/day: 3.00 Years: 20.00 Pack years: 60.00 Types: Cigarettes, Cigars Quit date: 09/15/1980 Years since quittin.3 ??? Smokeless tobacco: Never Used ? ? Tobacco comment: Quit >30 years ago Substance and Sexual Activity ??? Alcohol use: Yes Comment: Occasional beer ??? Drug use: No ??? Sexual activity: None Other Topics Concern ??? 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 Attends Restorationist Services: ??? Active Member of Clubs or Organizations: ??? Attends Club or Organization Meetings: ??? Marital Status: PHYSICAL EXAM Gen: well appearing, afebrile Eyes: conjunctiva without injection HENT: atraumatic, no nasal discharge, mucous membranes moist, oropharynx clear with no erythema, no exudates, no cervical lymphadenopathy Neck: supple, no stridor CV: RRR, brisk and symmetric bilateral radial pulses Pulm: normal respiratory effort, clear to auscultation bilaterally Abd: soft and non-tender MSK: no edema, no joint effusions Skin: no rashes, warm and dry Back: grossly atraumatic Neuro: alert and conversant, speech fluent, face symmetric VITAL SIGN FLOW SHEET: Vitals: 12/28/20 1300 12/28/20 1400 BP: 141/79 140/78 Resp: 06 01 SpO2: 98% 98% RESULTS: LABS: Labs Reviewed COMPLETE BLOOD COUNT AND DIFFERENTIAL - Abnormal Result Value Status WBC 5.77 Final RBC 4.75 Final Hemoglobin 13.5 (*) Final HCT 42.6 Final MCV 90 Final MCH 28.4 Final MCHC 31.7 (*) Final RDW-CV 20.1 (*) Final RDW-SD 64.3 (*) Final PLT 286 Final MPV 12.5 Final Neutrophils 65.8 Final Lymphocytes 20.1 Final Monocytes 7.6 Final Eosinophils 4.9 Final Basophils 0.7 Final Immature Grans 0.9 Final Absolute Neutrophils 3.80 Final Absolute Lymphocytes 1.16 Final Absolute Monocytes 0.44 Final Absolute Eosinophils 0.28 Final Absolute Basophils 0.04 Final Absolute Immature Grans 0.05 Final Type of Differential: Auto Final COMPREHENSIVE METABOLIC PANEL (CMP) - Abnormal Sodium 139 Final Potassium 4.8 Final Chloride 101 Final CO2 Total 24 Final Glucose 108 (*) Final BUN 16 Final Creatinine 1.04 Final eGFR 69 Final Total Protein 6.9 Final Albumin 4.4 Final Alkaline Phosphatase 58 Final AST 39 Final ALT 18 Final Bilirubin, Total 0.8 Final Calcium 9.5 Final Calculated Calcium 9.2 Final LYME AB - Normal Lyme Ab Negative Final COVID-19 TESTING COVID-19 TEST [facility] PCR HOLD BLUE TOP Hold Hold Final HOLD GREEN TOP Hold Hold Final HOLD LAVENDER TOP Hold Hold Final HOLD SST Hold Hold Final HOLD GREEN TOP Hold Hold Final EXTRA BLOOD DRAW (RAINBOW) Narrative: The following orders were created for panel order EXTRA BLOOD DRAW (RAINBOW). Procedure Abnormality Status --------- ------ HOLD BLUE TOP[[id number]] Final result HOLD GREEN TOP[[id number]] Final result HOLD LAVENDER TOP[[id number]] Final result HOLD RED TOP[[id number]] HOLD SST[[id number]] Final result Please view results for these tests on the individual orders. HOLD RED TOP IMAGING: I performed a limited ED POCUS applications: Thoracic dvxyd-mv-phdl ultrasound. Please see my narrative and impression recorded in imaging results. I performed, reviewed, and independently interpreted the images. Images saved in XO1 and PACS. Procedures documented in this encounter Plan of Treatment Upcoming Encounters Date Type Specialty Care Team Description 12/27/2021 Office Visit Hematology and Erin Barillas M D Oncology [address] [place] [address] 2 [place] [address] (Wo rk) 02/14/2022 Office Visit Hematology and Erin Barillas M D Oncology [address] [place] [phone] (Wo rk) 04/25/2022 Ancillary Procedure Cardiology 04/25/2022 Office Visit Cardiology Claire Lopez NP [address] [place] [address] [address] [place] [address] (Wo rk) 05/13/2022 Office Visit Rheumatology Tod Perez NP [address] [facility], [facility] [address] [place] [address] (Wo rk) documented as of this encounter Procedures Procedure Name Priority Date/Time Associated Comments Diagnosis POCT US ED THORACIC 12/28/2020 13:06 Resu lts for this EDT procedure are i n the results section. COVID[facility]19 [facility] 12/28/2020 12:58 Resu lts for this LAB PCR EDT procedure are i n the results section. COVID-19 TESTING Routine 12/28/2020 12:58 Results for this EDT procedure are i n the results section. HOLD GREEN TOP Routine 12/28/2020 12:57 Results f or this EDT procedure are i n the results section. HOLD SST Routine 12/28/2020 12:39 Results for this EDT procedure are i n the results section. HOLD LAVENDER TOP Routine 12/28/2020 12:39 Result s for this EDT procedure are i n the results section. HOLD GREEN TOP Routine 12/28/2020 12:39 Results f or this EDT procedure are i n the results section. HOLD BLUE TOP Routine 12/28/2020 12:39 Results fo r this EDT procedure are i n the results section. LYME AB Add-On 12/28/2020 12:39 Results for this EDT procedure are i n the results section. EXTRA BLOOD DRAW Routine 12/28/2020 12:39 Results for this (RAINBOW) EDT procedure are i n the results section. COMPLETE BLOOD COUNT STAT Add-on 12/28/2020 12:39 Res ults for this AND DIFFERENTIAL EDT procedure a re in the results section. COMPREHENSIVE STAT Add-on 12/28/2020 12:39 Results fo r this METABOLIC PANEL (CMP) EDT proced ure are in the results section. documented in this encounter Results POCT US ED THORACIC (12/28/2020 13:06 EDT) Specimen Narrative [facility] - 02/21/2021 20:35 EDT Addendum: Authorized by Margaret Villavicencio on 2021-02-21 20:35 Study Date and Time: 2020-12-28 13:06 Study Author: Margaret Villavicencio ED Thoracic/Lung: Indication(s) for exam: ?Select all that apply: Dyspnea ?Other: N/A Views obtained: ?Right Thorax: RT Anterior / Superi or Thorax, RT Lateral/Distal Thorax, RT Posterior/PLAPS ?Left Thorax: LT Anterior / Superio r Thorax, LT Lateral / Distal Thorax, LT Posterior/PLAPS ?Cardiac Views: N/A ?Other: N/A Findings (Right Thorax): ?RT Lung Sliding: Present ?RT Lung Point Sign: Absent ?If positive, estimated size of pne umothorax: N/A ?Right Pleural Findings: Normal ?Other right pleural findings: N/A ?RT Interstitium: A-Lines: Present ?RT Interstitium: B-Lines (>3 per v iew): Absent ?RT Pleural Effusion: Absent ?If RT Pleural Effusion present: N/ A ?RT Lung Consolidation: Absent ?RT Air Bronchograms: N/A ?Other Right Thoracic Findings: N/A Findings (Left Thorax): ?LT Lung Sliding: Present ?LT Lung Point Sign: Absent ?If positive, estimated size of pne umothorax: N/A ?Left Pleural Findings: Normal ?Other left pleural findings: N/A ?LT Interstitium: A-Lines: Present ?LT Interstitium: B-Lines (>3 per v iew): Absent ?LT Pleural Effusion: Absent ?If LT Pleural Effusion present: N/ A ?LT Lung Consolidation: Absent ?LT Air Bronchograms: N/A ?Other Left Thoracic Findings: N/A Findings - Cardiac/IVC: ?Cardiac Findings: N/A ?Other Cardiac: N/A ?IVC Findings: N/A Interpretation: ?Select all that apply: No sonograp hic evidence of acute pulmonary disease ?Other: N/A Confirmatory Study: ?What confirmatory study was perfor med during ED patient evaluation?: No additional imaging ordered ?Confirmatory Study Findings/Commen ts:: N/A Signed by Margaret Villavicencio on 2021-02-21 2 0:35 Procedure Note Margaret Villavicencio MD - Addendum: Authorized by Margaret snider 2021-02-21 20:35 Study Date and Time: 2020-12-28 13:06 Study Author: Margaret Villavicencio ED Thoracic/Lung: Indication(s) for exam: Select all that apply: Dyspnea Other: N/A Views obtained: Right Thorax: RT Anterior / Superior Th orax, RT Lateral/Distal Thorax, RT Posterior/PLAPS Left Thorax: LT Anterior / Superior Tho rax, LT Lateral / Distal Thorax, LT Posterior/PLAPS Cardiac Views: N/A Other: N/A Findings (Right Thorax): RT Lung Sliding: Present RT Lung Point Sign: Absent If positive, estimated size of pneumoth orax: N/A Right Pleural Findings: Normal Other right pleural findings: N/A RT Interstitium: A-Lines: Present RT Interstitium: B-Lines (>3 per view): Absent RT Pleural Effusion: Absent If RT Pleural Effusion present: N/A RT Lung Consolidation: Absent RT Air Bronchograms: N/A Other Right Thoracic Findings: N/A Findings (Left Thorax): LT Lung Sliding: Present LT Lung Point Sign: Absent If positive, estimated size of pneumoth orax: N/A Left Pleural Findings: Normal Other left pleural findings: N/A LT Interstitium: A-Lines: Present LT Interstitium: B-Lines (>3 per view): Absent LT Pleural Effusion: Absent If LT Pleural Effusion present: N/A LT Lung Consolidation: Absent LT Air Bronchograms: N/A Other Left Thoracic Findings: N/A Findings - Cardiac/IVC: Cardiac Findings: N/A Other Cardiac: N/A IVC Findings: N/A Interpretation: Select all that apply: No sonographic e vidence of acute pulmonary disease Other: N/A Confirmatory Study: What confirmatory study was performed d [facility] ED patient evaluation?: No additional imaging ordered Confirmatory Study Findings/Comments:: N/A Signed by Margaret Villavicencio on 2021-02-21 2 0:35 Performing Organization Address [facility] Phon e Number [facility] COVID-19 TEST [facility] PCR (12/28/2020 12:58 EDT) Specimen Swab - Entire nasopharynx (body structur e) Performing Organization Address [facility] Phon e Number [facility] [address] [place] [address] SERVICES COVID-19 TESTING (12/28/2020 12:58 EDT) COVID-19 rt-PCR Negative Negative [facility] Result Comment: CENTER LABORATORY This test [...] tions, patient history, and epidemiological informatio n. Performed on the [place] Fusion instrument Performing Lab [place] [facility] Lab [facility] SERVICES Specimen Swab - Entire nasopharynx (body structur e) Performing Organization Address [facility] Phon e Number [facility] [address] [place] [address] SERVICES HOLD GREEN TOP (12/28/2020 12:57 EDT) Pathologist Sig nature Hold Hold [facility] LABORATOR Y SERVICES Specimen Blood - Venous blood (substance) Performing Organization Address [facility] Phon e Number [facility] [address] [place] [address] SERVICES LYME AB (12/28/2020 12:39 EDT) Pathologist Sig nature Lyme Ab NegativeComment: New Negative [facility] 3rd generation assay LABORATORY SERVICES in use 11/24/2019 Specimen Blood - Venous blood (substance) Performing Organization Address City/State/ZIP Code Phon e Number [facility] [address] [place] [address] SERVICES (ABNORMAL) COMPREHENSIVE METABOLIC PANEL (CMP) (12/28/2020 12:39 EDT) Sodium 139 136 - 145 [facility] mEq/L [facility] SERVICES Potassium 4.8Comment: Slight 3.5 - 5.0 [facility] hemolysis mEq/L [facility] identified, SERVICES interpret with caution as hemolysis will elevate potassium result. Chloride 101 96 - 110 [facility] mEq/L [facility] CO2 Total 24 22 - 32 mEq/L [facility] SERVICES Glucose 108 (H) 70 - 100 [facility] mg/dL [facility] SERVICES BUN 16 10 - 26 mg/dL [facility] Comment: [facility]ENTER LAB[facility]ATORY Slight hemolysis identified, interpret with caution as results may be affected due to hemolysis. SERVICES Creatinine 1.04 0.66 - 1.25 [facility] mg/dL [facility] SERVICES eGFR 69Comment: eGFR >60 [facility] calculated using mL/min/1.73m2 [facility] CKD-EPI equation SERVICES for non- Americans. Multiply eGFR by 1.16 for patients. Total Protein 6.9Comment: Slight 6.3 - 8.2 [facility] hemolysis g/dL [facility] identified, SERVICES interpret with caution as results may be affected due to hemolysis. Albumin 4.4Comment: Slight 3.4 - 4.9 [facility] hemolysis g/dL [facility] identified, SERVICES interpret with caution as results may be affected due to hemolysis. Alkaline 58Comment: Slight 38 - 126 U/L [facility] Phosphatase hemolysis [facility] identified, SERVICES hemolysis will decrease ALKP result. Interpret with caution as results may be affected due to hemolysis. AST 39Comment: Slight 15 - 46 U/L [facility] hemolysis [facility] identified, SERVICES interpret with caution as results may be affected due to hemolysis. ALT 18 <50 U/L [facility] SERVICES Bilirubin, Total 0.8 <1.4 mg/dL [facility] SERVICES Calcium 9.5 8.5 - 10.5 [facility] mg/dL [facility] SERVICES Calculated Calcium 9.2Comment: Slight 8.5 - 10.5 [facility] hemolysis mg/dL [facility] identified, SERVICES interpret with caution as results may be affected due to hemolysis. Specimen Blood - Venous blood (substance) Performing Organization Address City/State/ZIP Code Phon e Number [facility] [address] [place] [address] SERVICES (ABNORMAL) COMPLETE BLOOD COUNT AND DIFFERENTIAL (12/28/2020 12:39 EDT) WBC 5.77 4.00 - 10.40 [facility] LABORATORY SERVICES RBC 4.75 4.36 - 5.78 [facility] LABORATORY SERVICES Hemoglobin 13.5 (L) 13.8 - 17.3 [facility] gm/dL LABORATORY SERVICES HCT 42.6 39.5 - 50.2 % [facility] LABORATORY SERVICES MCV 90 81 - 95 fl [facility] SERVICES MCH 28.4 27.6 - 33.0 pg [facility] LABORATORY SERVICES MCHC 31.7 (L) 32.8 - 36.4 [facility] gm/dL LABORATORY SERVICES RDW-CV 20.1 (H) <14.2 % [facility] LABORATORY SERVICES RDW-SD 64.3 (H) <46.0 fl [facility] LABORATORY SERVICES PLT 286 141 - 377 /[facility] LABORATORY SERVICES MPV 12.5 9.5 - 12.7 fl [facility] LABORATORY SERVICES Neutrophils 65.8 % [facility] LABORATORY SERVICES Lymphocytes 20.1 % [facility] LAB[facility]ORY SERVICES Monocytes 7.6 % [facility]ORY SERVICES Eosinophils 4.9 % [facility] LAB[facility]ATORY SERVICES Basophils 0.7 % [facility] LAB[facility]ATORY SERVICES Immature Grans 0.9 % [facility] LABORATORY SERVICES Absolute Neutrophils 3.80 2.20 - 8.85 [facility] LABORATORY SERVICES Absolute Lymphocytes 1.16 1.09 - 3.30 [facility] LABORATORY SERVICES Absolute Monocytes 0.44 0.10 - 0.80 [facility] LABORATORY SERVICES Absolute Eosinophils 0.28 0.03 - 0.61 [facility] LABORATORY SERVICES Absolute Basophils 0.04 0.01 - 0.11 [facility] LABORATORY SERVICES Absolute Immature 0.05 0.00 - 0.06 [facility] Grans K/cmm LABORATORY SERVICES Type of Differential: Auto [facility] SERVICES Specimen Blood - Venous blood (substance) Performing Organization Address City/[facility]/ZIP Code Phon e Number [facility] [address] [place] [address] SERVICES HOLD SST (12/28/2020 12:39 EDT) Pathologist Sig nature Hold Hold [facility] LABORATOR Y SERVICES Specimen Blood - Venous blood (substance) Performing Organization Address [facility]/ZIP Code Phon e Number [facility] [address] [place] [address] SERVICES HOLD LAVENDER TOP (12/28/2020 12:39 EDT) Pathologist Sig nature Hold Hold [facility] Y SERVICES Specimen Blood - Venous blood (substance) Performing Organization Address [facility]/ZIP Code Phon e Number [facility] [address] [place] [address] SERVICES HOLD GREEN TOP (12/28/2020 12:39 EDT) Pathologist Sig nature Hold Hold [facility] Y SERVICES Specimen Blood - Venous blood (substance) Performing Organization Address City/[facility]/ZIP Code Phon e Number [facility] [address] [place] [address] SERVICES HOLD BLUE TOP (12/28/2020 12:39 EDT) Pathologist Sig nature Hold Hold [facility] Y SERVICES Specimen Blood - Venous blood (substance) Performing Organization Address [facility]/ZIP Code Phon e Number [facility] [address] [place] [address] SERVICES documented in this encounter Visit Diagnoses Diagnosis Acute viral syndrome - Primary Unspecified viral infection, in conditio ns classified elsewhere and of unspecified site documented in this encounter Active and Recently Administered Medications Orders Medications Ordered That Might Not Have Count Last Ord ered Date First Ordered Date Been Administered lidocaine (PF) 10 mg/mL (1 %) injection 2 1 2020 mg documented in this encounter Additional Health Concerns Infection Onset Date Last Indicated Resolved Time R/O COVID-19 12/28/2020 12/28/2020 01/02/2021 22:15 EDT documented as of this encounter Care Teams Automobile Parker Relationship Specialty Start Date End Date Layne Cai MD PCP - General 04/05/[address] [place] [phone] Claire Lopez NP Cardiovascular Disease 11/22/20 130 [facility] [address] [place] [address] Tod Perez NP Rheumatology 12/28/[address] [place] [address], [address] [place] [phone] documented as of this encounter
--- OUTSIDE RECORDS SUMMARY | 2021-12-21 01:20 | XMS_ITS | Encounter Summary ---
:1945 Author Organization [facility] Address [address] [place] [address] Care Team Providers Name Role Phone Layne Cai MD Primary Care Provider Reason for Visit Reason Onset Date Comments Results 11/10/2020 Encounter Details Date Type Department Care Team Description 11/10/2020 Telephone [facility] Erin Barillas MD Results Hematology & Oncology - 111 [facility], [address], [address] [place], [place] [address] [place] [phone] (Wo rk) Social History Tobacco Use Types [...] Notes Telephone Encounter - Augustina Salazar - 11/10/2020 1016 EDT LABS ENTERED FROM [facility]. Augustina Salazar 11/10/2020 10:16 documented in this encounter Plan of Treatment Upcoming Encounters Date Type Specialty Care Team Description 12/27/2021 Office Visit Hematology and Erin Barillas M D Oncology [address] [place] [phone] (Wo rk) 02/14/2022 Office Visit Hematology and Erin Barillas M D Oncology [address] [place] [phone] (Wo rk) 04/25/2022 Ancillary Procedure Cardiology 04/25/2022 Office Visit Cardiology Claire Lopez NP [address] [place] [address] [phone] (Wo rk) 05/13/2022 Office Visit Rheumatology Tod Perez NP [address] [phone] (Wo rk) documented as of this encounter Procedures Procedure Name Priority Date/Time Associated Diagnosis Comme nts COMPREHENSIVE METABOLIC Routine 10/19/2020 Resu lts for this PANEL (ONCOLOGY USE procedur e are in the ONLY-INC MG) results section . COMPLETE BLOOD COUNT AND Routine 10/19/2020 Res ults for this DIFFERENTIAL procedure are i n the results section . documented in this encounter Results (ABNORMAL) COMPREHENSIVE METABOLIC PANEL (ONCOLOGY USE ONLY-INC MG) (10/19/2020) Pathologist Sig nature Calcium, External 9.1 [facility] CO2, External 28.1 [facility] AST, External 14 (A) 15 - 37 [facility] ALT, External 25 [facility] Bilirubin, Total, 0.5 [facility] Creatinine, External 1.3 [facility] Calculated Calcium, [facility] Anion Gap, External [facility] Total Protein, 7.4 [facility] Potassium, External 4.1 [facility] Total Alkaline 81 [facility] Phosphatase, [facility] LAB Albumin, External 4.2 [facility] BUN, External 23 (A) 7 - 18 [facility] GFR, Calculated, 53.53 [facility] Fasting?, External [facility] Chloride, External 105 [facility] Glucose, Serum, 129 (A) 74 - 106 [facility] Sodium, External 141 [facility] Magnesium, External [facility] Specimen Blood - Venous blood (substance) Performing Organization Address City/[facility] Code Phon e Number [facility] (ABNORMAL) COMPLETE BLOOD COUNT AND DIFFERENTIAL (10/19/2020) Pathologist Sig nature WBC, External 7.37 [facility] RBC, External 4.75 [facility] Hemoglobin, External 14.0 [facility] HCT, External 44.7 [facility] MCV, External 94.1 [facility] MCH, External 29.5 [facility] MCHC, External 31.3 (A) 32.0 - 36.0 [facility] PLT, External 272 [facility] RDW-CV, External 16.7 (A) 11.8 - 14.1 [facility] Neutrophils, 71.6 [facility] Lymphocytes, 16.7 [facility] Monocytes, External 8.0 [facility] Eosinophils, 2.0 [facility] Basophils, External 0.8 [facility] ABS Neutrophils, 5.27 [facility] ABS Lymphs, External 1.23 [facility] ABS Monocytes, 0.59 [facility] ABS Eosinophils, 0.15 [facility] ABS Basophils, 0.06 [facility] Specimen Blood - Venous blood (substance) Performing Organization Address City/State/ZIP Code Phon e Number [facility] documented in this encounter Visit Diagnoses Not on filedocumented in this encounter Care Teams Marker Assembler Relationship Specialty Start Date End Date Layne Cai MD PCP - General 04/05/20 [address] [place] [address] documented as of this encounter
--- OUTSIDE RECORDS SUMMARY | 2021-12-21 01:20 | XMS_ITS | Encounter Summary ---
:1945 Author Organization [facility] Address [address] [place] [address] Care Team Providers Name Role Phone Layne Cai MD Primary Care Provider Claire Lopez FRETTED INSTRUMENT INSPECTOR Unavailable Tod Perez NP Unavailable Reason for Visit (Routine) - Authorization Not Required Specialty Diagnoses / Procedures Referred By Contact Refer red To Contact Diagnoses Pacemaker Claire Lopez NP Procedures CARDIAC IMPLANT CHECK - IN CLINIC [address] [facility] [address] [place] [address] Referral ID Status Reason Start Expiration Visits Visits Date Date Requested Authorized [id number] Authorization Not 1 1 Required 9 Encounter Details Date Type Department Care Team Description 03/02/2021 Ancillary Procedure [facility] [facility] [place] [facility] [address] [place] [address] Social History Tobacco Use Types [...] and Erin Barillas M D Oncology [address] [phone] (Wo rk) 02/14/2022 Office Visit Hematology and Erin Barillas M D Oncology [address] [phone] (Wo rk) 04/25/2022 Ancillary Procedure Cardiology 04/25/2022 Office Visit Cardiology Claire Lopez NP [address] [place] [address] [phone] (Wo rk) 05/13/2022 Office Visit Rheumatology Tod Perez NP [address] [phone] (Wo rk) documented as of this encounter Procedures Procedure Name Priority Date/Time Associated Diagnosis Comme nts CARDIAC IMPLANT Routine 03/02/2021 16:26 Pacemaker Results for this CHECK - IN CLINIC EDT procedure are in the results section. documented in this encounter Results CARDIAC IMPLANT CHECK - IN CLINIC - PACEMAKER SINGLE CHAMBER W/ PROG (03/02/2021 16:26 EDT) Specimen Narrative DEVICECHECK - 03/02/2021 16:26 EDT Refer to same day OV for full details Procedure Note Claire Lopez APRN - 03/02/2021 Refer to same day OV for full details Performing Organization Address City/State/ZIP Code Phon e Number [facility] documented in this encounter Visit Diagnoses Diagnosis Pacemaker Cardiac pacemaker in situ documented in this encounter Care Teams Computer Science Professor Relationship Specialty Start Date End Date Layne Cai MD PCP - General 04/05/20 [address] [place] [phone] Claire Lopez NP Cardiovascular Disease 11/22/20 130 [facility] [address] [place] [address] Tod Perez NP Rheumatology 12/28/20 111 [facility], [address] [place] [address] documented as of this encounter
--- OUTSIDE RECORDS SUMMARY | 2021-12-21 01:20 | XMS_ITS | Encounter Summary ---
:1945 Author Organization [facility] Address [address] [place] [address] Care Team Providers Name Role Phone Layne Cai MD Primary Care Provider Claire Lopez SHAMPOO TECHNICIAN Unavailable Tod Perez SHAMPOO TECHNICIAN Unavailable Reason for Referral Laboratory Services (Routine/Next Available) - New Request Specialty Diagnoses / Procedures Referred By Contact Refer red To Contact Diagnoses History of seronegative inflammatory arthritis Encounter for long-term (current) use of medications Tod Perez, FESTUS Procedures COMPREHENSIVE METABOLIC PANEL (CMP) [address] [phone] Referral ID Status Reason Start Date Expiration Date Visits V isits Requested Authorized [id number] New Request 04/02/2021 1 1 Laboratory Services (Routine/Next Available) - New Request Specialty Diagnoses / Procedures Referred By Contact Refer red To Contact Diagnoses History of seronegative inflammatory arthritis Encounter for long-term (current) use of medications Tod Perez NP Procedures COMPLETE BLOOD COUNT AND DIFFERENTIAL [address] [phone] Referral ID Status Reason Start Date Expiration Date Visits V isits Requested Authorized [id number] New Request 04/02/2021 1 1 Encounter Details Date Type Department Care Team Description 04/02/2021 Telephone [facility] Juanjose Perez, FESTUS Rheumatology & Immunology - [address] [place] [address], [address], [address] [place], [place] [phone] [place] [phone] (Wo rk) Social History Tobacco Use Types [...] Telephone Encounter - Tod Perez APRN - 04/02/2021 1634 EDT Spoke to rosalinda on his . Dr. 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 Therefore stop MTX and switch to sulfasalazine 1. Stop methotrexate 2. Start sulfasalazine 500mg (1 tab) orally daily x 7-14 days if tolerated increase to 1 tab am and 1 tab pm 3. Check labs 1 month after starting, then every 3-4 months Alt arava, or biologic documented in this encounter Plan of Treatment Upcoming Encounters Date Type Specialty Care Team Description 12/27/2021 Office Visit Hematology and Erin Barillas M D Oncology 111 [facility] 2 [place] [phone] (Wo rk) 02/14/2022 Office Visit Hematology and Erin Barillas M D Oncology [address] [phone] (Wo rk) 04/25/2022 Ancillary Procedure Cardiology 04/25/2022 Office Visit Cardiology Claire Lopez NP 130 [facility] [address] [phone] (Wo rk) 05/13/2022 Office Visit Rheumatology Tod Perez NP 111 [facility], [facility] 5 [place] [phone] (Wo rk) Scheduled Orders Name Type Priority Associated Diagnoses Order S chedule COMPLETE BLOOD COUNT AND Lab Routine History of seron egative Months - Every 1 DIFFERENTIAL inflammatory art hritis (Monthly) for 12 Encounter for long-term Occu rrences starting (current) use of 04/02/2021 until medications 04/02/2022 COMPREHENSIVE METABOLIC Lab Routine History of serone gative Months - Every 1 PANEL (CMP) inflammatory art hritis (Monthly) for 12 Encounter for long-term Occu rrences starting (current) use of 04/02/2021 until medications 04/02/2022 documented as of this encounter Visit Diagnoses Diagnosis History of seronegative inflammatory art hritis - Primary Encounter for long-term (current) use of medications Encounter for long-term (current) use of other medications documented in this encounter Care Teams Shield Installer Relationship Specialty Start Date End Date Layne Cai MD PCP - General 04/05/20 [address] [place] [address] Claire Lopez NP Cardiovascular Disease 11/22/20 130 [facility] [address] [place] [address] Tod Perez NP Rheumatology 12/28/20 111 [facility], [address] [place] [phone] documented as of this encounter
--- OUTSIDE RECORDS SUMMARY | 2021-12-21 01:20 | XMS_ITS | Encounter Summary ---
:1945 Author Organization [facility] Address [address] [place] [address] Care Team Providers Name Role Phone Layne Cai MD Primary Care Provider Claire Lopez CREDIT PRODUCT ANALYST Unavailable Tod Perez CREDIT PRODUCT ANALYST Unavailable Encounter Details Date Type Department Care Team Description 01/30/2021 Lab Requisition [facility] Outr Resulting Lab, Pathology & Laboratory Provider [facility] [address] [place] [address] Social History Tobacco Use Types [...] and Erin Barillas M D Oncology 111 [facility], [facility] 2 [place] [phone] (Wo rk) 02/14/2022 Office Visit Hematology and Erin Barillas M D Oncology 111 [facility], [facility] 2 [place] [phone] (Wo rk) 04/25/2022 Ancillary Procedure Cardiology 04/25/2022 Office Visit Cardiology Claire Lopez NP [address] [place] [address] [phone] (Wo rk) 05/13/2022 Office Visit Rheumatology Tod Perez NP 111 [facility], [facility] 5 [place] [address] (Wo rk) documented as of this encounter Procedures Procedure Name Priority Date/Time Associated Diagnosis Comme nts CCP ANTIBODIES Routine 01/30/2021 10:15 Results f or this EDT procedure are i n the results section. RHEUMATOID FACTOR Routine 01/30/2021 10:15 Result s for this EDT procedure are i n the results section. documented in this encounter Results RHEUMATOID FACTOR (01/30/2021 10:15 EDT) Pathologist Sig nature Rheumatoid Factor <8.6 <12.0 IU/mL [facility] SERVICES Specimen Blood - Venous blood (substance) Performing Organization Address City/State/ZIP Code Phon e Number [facility] [address] [place] [address] SERVICES CCP ANTIBODIES (01/30/2021 10:15 EDT) Pathologist Sig nature CCP Antibodies <2.5 <5.0 U/mL [facility] SERVICES Specimen Blood - Venous blood (substance) Performing Organization Address City/State/ZIP Code Phon e Number [facility] [address] [place] [address] SERVICES documented in this encounter Visit Diagnoses Not on filedocumented in this encounter Care Teams Airline Pilot Relationship Specialty Start Date End Date Layne Cai MD PCP - General 04/05/20 [address] [place] [phone] Claire Lopez NP Cardiovascular Disease 11/22/20 130 [facility] [address] [place] [address] Tod Perez NP Rheumatology 12/28/[address] [facility], [facility] 5 [place] [phone] documented as of this encounter
--- OUTSIDE RECORDS SUMMARY | 2021-12-21 01:20 | XMS_ITS | Encounter Summary ---
:[address] [facility] Address [address] [place] [address] Care Team Providers Name Role Phone Layne Cai MD Primary Care Provider Claire Lopez TELEVISION REPAIR TEACHER Unavailable Tod Perez TELEVISION REPAIR TEACHER Unavailable Reason for Referral Cardiology (Routine/Next Available) - Specialty Report Received Specialty Diagnoses / Procedures Referred By Contact Refer red To Contact Diagnoses Pacemaker Claire Lopez NP Procedures TRANSTHORACIC ECHO (TTE) COMPLETE [address] [facility] [address] [place] [address] Referral ID Status Reason Start Date Expiration Date Visits V isits Requested Authorized [id number] Specialty 03/02/2021 1 1 Report Received Reason for Visit Reason Comments Pacemaker/Device Check Medtronic Cardiology (Routine) - Authorization Not Required Specialty Diagnoses / Procedures Referred By Contact Refer red To Contact Cardiology Diagnoses Other chest pain Yannick Shaw MD [facility] [address] [place] [address] [place] [address] Referral ID Status Reason Start Expiration Visits Visits Date Date Requested Authorized [id number] Authorization Not 1 1 Required Encounter Details Date Type Department Care Team Description 03/02/2021 Office Visit [facility] Crissy Lopez (Primary Dx); - [facility] [place]iology FESTUS Rangel Coronary artery disease involving solomon coronary artery of solomon heart without angina pectoris; Clinic [address] Essential hypertension; [address] [place] [address] [place], [place] [phone] Social History Tobacco Use Types Packs/Day [...] Sign Reading Time Taken Comments Blood Pressure 120/70 03/02/2021 1454 EDT Pulse 66 03/02/2021 1454 EDT Temperature - - Respiratory Rate - - Oxygen Saturation 97% 03/02/2021 1454 EDT Inhaled Oxygen Concentration - - Weight 102.7 kg (226 lb 8 oz) 03/02/2021 1454 EDT Height 181.8 cm (5' 11.58) 03/02/2021 1454 EDT Body Mass Index 31.08 03/02/2021 1454 EDT documented in this encounter [...] Sig Dispensed Refills Start Date End Date isosorbide MONOnitrate Take 1 Tablet by 90 Tablet 3 09/17/2 021 06/14/2021 (IMDUR) 30 mg CR tablet mouth daily. documented in this encounter Progress Notes Claire Lopez APRN - 03/02/2021 1500 EDT Cardiology Clinic Note 03/02/21 15:03 Presenting complaint: Pacemaker/Device Check (Vyykntronic) CHASITY Dacosta is a pleasant 75 yo with multiple medical co-morbidities including inflammatory polyarthropathytreated with methotrexate, hx benign neoplasm of the colon, polycythemia vera, GERD, BPH, stage III CKD, HLD, NATALIE, HTN, sinus node dysfunction s/p single chamber pacemaker with recent generator change with Dr Chawla 06/27/2020 who returns to the office for follow-up. Last seen in the office in late October 2020 where he complained of exertional chest pain, shortness of breath and diaphoresis. Underwent exercise nuclear stress test at [facility] and was told that this was normal, although mentions he was only able to exercise for 2 to 3 minutes on the treadmill before experiencing symptoms. Given his ongoing symptoms it was recommended he go to the emergency department for further evaluation. There his work-up was generally benign, however we coordinated an outpatient cardiac catheterization to assess for flow-limiting coronary disease. This was obtained on November 22, 2020 and showed no flow-limiting disease,minor luminal irregularities of the LAD, left circumflex and RCA. Imdur was increased at that time with near resolution of symptoms, however today he and his expressed concern that this has resulted in increased dizziness. 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 Exertional chest pain Past Surgical History: Procedure Laterality Date ??? CARDIAC PACEMAKER PLACEMENT ??? CATARACT REMOVAL bilateral ??? CHOLECYSTECTOMY 2005 ??? EYE SURGERY ??? HERNIA REPAIR Medications Current Outpatient Medications on File Prior to Visit Medication Sig Dispense Refill ??? aspirin 81 mg EC tablet Take 81 mg by mouth daily. ??? atorvastatin (LIPITOR) 40 mg tablet Take 1 Tab by mouth at bedtime. 90 Tab 3 ??? finasteride (PROSCAR) 5 mg tablet Take 5 mg by mouth daily. ??? folic acid (FOLVITE) 1 mg tablet Take 1 Tab by mouth daily. 90 Tab 3 ??? hydroxyurea (HYDREA) 500 mg capsule TAKE ONE CAPSULE BY MOUTH EVERY DAY 90 capsule 0 ??? isosorbide MONOnitrate (IMDUR) 60 mg CR tablet Take 1 Tab by mouth daily. 90 Tab 3 ??? methotrexate 2.5 mg tablet Take 10 Tabs by mouth once a week. 120 Tab 1 ??? metoprolol XL (TOPROL-XL) 25 mg tablet TK 1 T PO D ??? omeprazole (PRILOSEC) 40 mg capsule No current facility-administered medications on file prior to visit. Medication allergies Allergies Allergen Reactions ??? Lisinopril Causes chest pain. ? Myocardial bridging Fhx/ Shx Family History Problem Relation Age [...] Cigarettes, Cigars Quit date: 09/15/1980 Years since quittin.4 ??? Smokeless tobacco: Never Used ? ? Tobacco comment: Quit >30 years ago Substance and Sexual Activity ??? Alcohol use: Yes Comment: Occasional beer ??? Drug use: No ??? Sexual activity: Not on file Other Topics Concern ??? 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 Difficulty of Paying Living Expenses: Not on file Food Insecurity: ??? Worried About Running Out of Food in the Last Year: Not on file ??? Ran Out of Food in the Last Year: Not on file Transportation Needs: ??? Lack of Transportation (Medical): Not on file ??? Lack of Transportation (Non-Medical): Not on file Physical Activity: ??? Days of Exercise per Week: Not on file ??? Minutes of Exercise per Session: Not on file Stress: ??? Feeling of Stress : Not on file Social Connections: ??? Frequency of Communication with Friends and Family: Not on file ??? Frequency of Social Gatherings with Friends and Family: Not on file ??? Attends Christian Services: Not on file ??? Active Member of Clubs or Organizations: Not on file ??? Attends Club or Organization Meetings: Not on file ??? Marital Status: Not on file Examination BP 120/70 (BP Cuff Location: Left arm, BP Patient Position: Sitting, BP Cuff Sizes: Adult, regular) Pulse 66 Ht 181.8 cm (71.58) Wt (!) 102.7 kg (226 lb 8 oz) SpO2 97% BMI 31.08 kg/m?? General - A/Ox3, no acute distress -pleasant, cooperative -WD, WN HEENT -NC/AT - PERRL Chest - Chest expansion symmetrical, respirations unlabored - Lungs CTA throughout all lung hussein - no adventitious breath sounds CVS - regular rate and rhythm - S1, S2 - no murmur Extremities - no edema, distal pulses present, no clubbing Skin - intact Peripheral neurology - no focal deficits [facility] Cardiology Device Visit Loom Starter: Medtronic Device Type: Pacemaker Service: Office Visit Implant Date: 06/27/2020 Indication: Bradycardia Battery Longevity: 10.4 years Underlying rhythm: CHB with rare ventricular escape Mode: VVIR URL/LRL: 130/60 bpm Ventricle Paced: 99.3% Lead Impedance, threshold, and sensing testing all [...] LABS Lab Results Component Value Date WBC 5.77 12/28/2020 HGB 13.5 (L) 12/28/2020 HCT 42.6 12/28/2020 MCV 90 12/28/2020 PLT 286 12/28/2020 Lab Results Component Value Date CREATININE 1.04 12/28/2020 CREATININEEX 1.3 12/11/2020 Lab Results Component Value Date NA 139 12/28/2020 K 4.8 12/28/2020 KEXT 4.5 12/11/2020 CL 101 12/28/2020 CLEXT 105 12/11/2020 CO2 24 12/28/2020 CO2EXT 27.4 12/11/2020 Lab Results Component Value Date TSH 0.38 09/15/2013 Lab Results Component Value Date HGBA1C 6.0 04/08/2012 Lab Results Component Value Date CHOL 111 04/08/2012 HDL 22 04/08/2012 LDLBASE 66 04/08/2012 TRIG 117 04/08/2012 CHOLHDL 5.0 04/08/[address] [facility] 11/2020 CORONARY ARTERIES: The coronary circulation is right dominant.?? Left main: Normal. LAD: Minor luminal irregularities. 1st diagonal: Minor luminal irregularities. Unchanged. Left circumflex: Minor luminal irregularities. Right coronary: Minor luminal irregularities. High anterior origin. HEMODYNAMICS: LVEDP 12 There was no gradient across the aortic valve. End diastolic pressure in the left ventricle is normal Nuclear stress test September 2020 ([facility]) IMPRESSION: Normal myocardial perfusion without evidence of ischemia or prior infarction. LVEF afterstress 59%. 1. Pacemaker Device functioning normally with ample generator remaining. 1 episode of nsVT lasting 1 sec in duration, pt asymptomatic. Refer to scanned documents for interrogation details. ?? 2. CAD Non flow limiting disease observed on [facility] 11/2020 involving the LAD, D1, LCx and RCA. Currently without CP symptoms. Due to worsening dizziness recommended reducing imdur from 60 mg to 30 mg daily. Given intermittent CP symptoms recommended repeat ECHO to assess LV function and for any structural/valvular disease or for evidence of chino/pauline-carditis. Follow up with results via phone. ?? 3. Essential hypertension Good BP control on current regimen, no changes. Reinforced lifestyle modification through diet, limiting sodium intake, regular activity and maintaining a healthy weight. ?? 4. Hypercholesteremia Continue statin. Lifestyle as above Claire Lopez NP [facility] Cardiology I spent a total of 30 minutes on the date of this encounter meeting with the patient and reviewing documentation/coordinating care as described in the above note. No procedures were performed at the time of the visit. documented in this encounter Plan of Treatment Upcoming Encounters Date Type Specialty Care Team Description 12/27/2021 Office Visit Hematology and Erin Barillas M D Oncology [address] [place] [phone] (Wo rk) 02/14/2022 Office Visit Hematology and Erin Barillas M D Oncology [address] [place] [phone] (Wo rk) 04/25/2022 Ancillary Procedure Cardiology 04/25/2022 Office Visit Cardiology Claire Lopez NP 130 [facility] [address] [place] [phone] (Wo rk) 05/13/2022 Office Visit Rheumatology Tod Perez NP [address] [phone] (Wo rk) documented as of this encounter Visit Diagnoses Diagnosis Pacemaker - Primary Cardiac pacemaker in situ Coronary artery disease involving solomon coronary artery of solomon heart without angina pectoris Essential hypertension Unspecified essential hypertension Hypercholesteremia Pure hypercholesterolemia documented in this encounter Discontinued Medications Medication Sig Discontinue Reason Start Date End Date isosorbide MONOnitrate Take 1 Tab by mouth 11/09/2020 03/02/2021 (IMDUR) 60 mg CR tablet daily. documented as of this encounter Orders Echocardiography Count Last Ordered Date First Ordered Date TRANSTHORACIC ECHO (TTE) COMPLETE 1 03/02/2021 documented in this encounter Care Teams Machine Shop Lead Man Relationship Specialty Start Date End Date Layne Cai MD PCP - General 04/05/20 [address] [place] [phone] Claire Lopez NP Cardiovascular Disease 11/22/20 130 [facility] [address] [place] [phone] Tod Perez NP Rheumatology 12/28/20 111 [facility], [address] [place] [address] documented as of this encounter
--- OUTSIDE RECORDS SUMMARY | 2021-12-21 01:20 | XMS_ITS | Encounter Summary ---
:1945 Author Organization [facility] Address [address] [place] [address] Care Team Providers Name Role Phone Layne Cai MD Primary Care Provider Reason for Visit Reason Onset Date Comments Medications Refill 11/12/2020 Encounter Details Date Type Department Care Team Description 11/12/2020 Refill [facility] Juanjose Perez NP Medications Refill Rheumatology & Immunology [address] [place], [place] [id number] [place] [address] [phone] (Wo rk) Social History Tobacco Use [...] Sig Dispensed Refills Start Date End Date methotrexate 2.5 mg Take 10 Tabs by 120 Tab 1 11/16/2020 04/03/2021 tabletIndications: mouth once a week. Inflammation around joint, Encounter for long-term (current) use of medications documented in this encounter Miscellaneous Notes Telephone Encounter - Payton Young RN - 11/15/2020 1620 EDT Requested Prescriptions Pending Prescriptions Disp Refills ??? methotrexate 2.5 mg tablet 120 Tab 3 Sig: Take 10 Tabs by mouth once a week. Pharmacy: [facility] Last Refill Date: 08/14/20 - different pharmacy Last Visit Date: 08/31/20 Next Non-Acute Visit Date Scheduled with Care Team: 12/28/2020 From last OV note 08/31/20: 'We will see what your next Cr is, if it is higher we need to decrease your methorexate PAYTON YOUNG RN 11/15/2020 16:20 elephone Encounter - Payton Young RN - 11/15/2020 1609 EDT From: Praneeth Villanueva To: Office of Tod Perez APRN Sent: 11/12/2020 9:24 EDT Subject: Medication Renewal Request Refills have been requested for the following medications: methotrexate 2.5 mg tablet [Tdo Perez APRN] Patient Comment: Prescriptions have been moved from [facility] to [facility]...[facility] will not transfer prescription so need renewal [facility] in [facility] . Preferred pharmacy: [id number] documented in this encounter Plan of Treatment Upcoming Encounters Date Type Specialty Care Team Description 12/27/2021 Office Visit Hematology and Erin Barillas M D Oncology 111 [facility] 2 [place] [address] (Wo rk) 02/14/2022 Office Visit Hematology and Erin Barillas M D Oncology [address] [phone] (Wo rk) 04/25/2022 Ancillary Procedure Cardiology 04/25/2022 Office Visit Cardiology Claire Lopez NP [address] [phone] (Wo rk) 05/13/2022 Office Visit Rheumatology Tod Perez NP 111 [facility] 5 [place] [address] (Wo rk) documented as of this encounter Visit Diagnoses Diagnosis Inflammation around joint Enthesopathy of unspecified site Encounter for long-term (current) use of medications Encounter for long-term (current) use of other medications documented in this encounter Discontinued Medications Medication Sig Discontinue Reason Start Date End Date methotrexate 2.5 mg Take 10 Tabs by Reorder 08/14/202011/12 tabletIndications: mouth once a week. Inflammation around joint, Encounter for long-term (current) use of medications documented as of this encounter Care Teams Cryptanalyst Relationship Specialty Start Date End Date Layne Cai MD PCP - General 04/05/[address] [place] [phone] documented as of this encounter
--- OUTSIDE RECORDS SUMMARY | 2021-12-21 01:20 | XMS_ITS | Encounter Summary ---
:1945 Author Organization [facility] Address [address] [place] [address] Care Team Providers Name Role Phone Layne Cai MD Primary Care Provider Claire Lopez SUPERVISOR TRANSCRIBING OPERATORS Unavailable Tod Perez SUPERVISOR TRANSCRIBING OPERATORS Unavailable Reason for Visit Reason Comments Telemedicine Video Visit Follow-up Encounter Details Date Type Department Care Team Description 04/20/2021 Telemedicine [facility] Erin Barillas MD Polycythemia vera Hematology & [address] [place] [phone] ([facility]) (Primar y Dx) Oncology - [facility], [address] [place], [place] [phone] [place] [address] [phone] (Wo rk) Social History Tobacco Use [...] encounter Progress Notes Erin Barillas MD - 04/20/2021 1630 EDT The concept of ???Telemedicine?? has been described [...] in patient???s medical or mental health care. TELEMEDICINE VIDEO VISIT Today's visit was provided through telemedicine video conferencing: I have reviewed the appropriateness of using video technology with the patient with regards to today's visit. The location of the patient : Home Patient location state: Visit Location State: [place] The location of the provider: Office Provider location state: Visit Location State: [place] The following people and their roles were present for today's visit: Appointment Provider: Erin Barillas MD Sakshi Jasra, MD Subjective: Chief Complaint Patient presents with ??? Telemedicine Video Visit ??? Follow-up HPI Mr. Villanueva is a pleasant 74 year old gentleman with past medical history of Hypertension, Hyperlipidemia, Arthritis (followed by Dr. Rosales), currently on weekly oral Methotrexate and folicacid supplements, BPH, history of sinus bradycardia and Type 2 sinoatrial exit block, s/p pacemaker placement and varicose veins. 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 Currently on Hydrea Interval Visit: Praneeth feels well. He has been following up with Pulmonary locally and noted to have Methotrexate toxicity. ROS also significant for dizziness when bending over but no episodes of loss of consciousness or falls reported. No other concerns today. 12 point ROS performed with pertinent positives [...] States that he spent the winter in [place] and noted that his fingers would turn [...] below. Social history: Retired. Worked for the [employer]. Former smoker with 20 pack year smoking [...] 2005 ??? EYE SURGERY ??? HERNIA REPAIR Family [...] Cigarettes, Cigars Quit date: 09/15/1980 Years since quittin.6 ??? Smokeless tobacco: Never Used ? ? Tobacco comment: Quit >30 years ago Vaping Use ??? Vaping Use: Never used Substance and Sexual Activity ??? Alcohol use: Yes Comment: Occasional beer ??? Drug use: No ??? Sexual activity: Not on file Other Topics Concern ??? 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 Attends Orthodox Services: Not on file ??? Active Member of Clubs or Organizations: Not on file ??? Attends Club or Organization Meetings: Not on file ??? Marital Status: Not on file Current Outpatient Medications Medication ??? aspirin 81 mg EC tablet ??? atorvastatin (LIPITOR) 40 mg tablet ??? finasteride (PROSCAR) 5 mg tablet ??? hydroxyurea (HYDREA) 500 mg capsule ??? isosorbide MONOnitrate (IMDUR) 30 mg CR tablet ??? metoprolol XL (TOPROL-XL) 25 mg tablet ??? omeprazole (PRILOSEC) 40 mg capsule ??? sulfaSALAzine (AZULFIDINE) 500 mg tablet No current facility-administered medications for this visit. Allergies Allergen Reactions ??? Lisinopril Causes chest pain. ? Myocardial bridging Review of Systems Neurological: Positive for dizziness. - See HPI Objective: There were no vitals taken for this visit. ECOG Performance Status: 0 Physical Exam: Resting comfortably. In no acute distress Lungs clear to auscultation +S1/S2. No murmurs. No pedal edema. No calf tenderness Labs: Labs: Reviewed in [facility] Review of records from patient's PCP's office [...] of cardiovascular complications. Plan: 1. Continue Hydrea. Will proceed with phlebotomy this month to maintain Hct <45 2. Continue low-dose Aspirin 81mg daily. We discussed alarm symptoms including but not [...] billing statement: I spent a total of 30 minutes on the date of this encounter meeting withthis patient, reviewing medical records, radiology reports and studies, laboratory results, updatingthe chart and records, documenting today's findings and recommendations, writing orders as necessary, and reviewing this all with the patient and coordinating care and followup as necessary. Erin Barillas MD documented in this encounter Plan of Treatment Upcoming Encounters Date Type Specialty Care Team Description 12/27/2021 Office Visit Hematology and Erin Barillas M D Oncology [address] [phone] (Joi diallo) 02/14/2022 Office Visit Hematology and Erin Barillas M D Oncology [address] [phone] (Joi rk) 04/25/2022 Ancillary Procedure Cardiology 04/25/2022 Office Visit Cardiology Claire Lopez NP 130 [facility] [address] [place] [phone] (Wo rk) 05/13/2022 Office Visit Rheumatology Tod Perez NP [address] [phone] (Wo rk) documented as of this encounter Visit Diagnoses Diagnosis Polycythemia vera (HCC) - Primary documented in this encounter Care Teams Stained Glass Installer Relationship Specialty Start Date End Date Layne Cai MD PCP - General 04/05/20 [address] [place] [phone] Claire Lopez NP Cardiovascular Disease 11/22/[address] [facility] [place] [address] Tod Perez NP Rheumatology 12/28/20 111 [facility], [address] [place] [address] documented as of this encounter
--- OUTSIDE RECORDS SUMMARY | 2021-12-21 01:20 | XMS_ITS | Encounter Summary ---
:1945 Author Organization [facility] Address [address] [place] [address] Care Team Providers Name Role Phone Layne Cai MD Primary Care Provider Reason for Visit Reason Comments Shortness of Breath Encounter Details Date Type Department Care Team Description 11/09/2020 Office Visit [facility] - Claire Herrmann, Ex ertional chest pain [facility] Cardiology Clin ic MACHINE INKER (Primary Dx) [address] [place], [place] [id number] [place] [address] [place] [phone] Social History Tobacco Use Types Packs/Day Years [...] Sign Reading Time Taken Comments Blood Pressure 122/62 11/09/2020 1338 EDT Pulse 63 11/09/2020 1338 EDT Temperature - - Respiratory Rate - - Oxygen Saturation 97% 11/09/2020 1338 EDT Inhaled Oxygen Concentration - - Weight 104.2 kg (229 lb 11.2 oz) 11/09/2020 1338 EDT Height 181.6 cm (5' 11.5) 11/09/2020 1338 EDT Body Mass Index 31.59 11/09/2020 1338 EDT documented in this encounter Functional Status [...] Sig Dispensed Refills Start Date End Date atorvastatin (LIPITOR) 40 Take 1 Tab by mouth 90 Tab 3 0 11/09/2020 06/14/2021 mg tablet at bedtime. isosorbide MONOnitrate Take 1 Tab by mouth 90 Tab 3 10/1503/02/2021 (IMDUR) 60 mg CR tablet daily. documented in this encounter Progress Notes Claire Herrmann APRN - 11/09/2020 1345 EDT Cardiology Clinic Note 11/09/20 13:54 Presenting complaint: Shortness of Breath HPI Deon is a pleasant 75 yo with multiple medical co-morbidities including inflammatory polyarthropathytreated with methotrexate, hx benign neoplasm of the colon, polycythemia vera, GERD, BPH, stage III CKD, HLD, NATALIE, HTN, sinus node dysfunction s/p single chamber pacemaker with recent generator change with Dr Chawla 06/27/2020 who returns to the office prior to regularly scheduled follow- up with complaints of exertional chest pain, shortness of breath and diaphoresis. For the past couple of months Deon has been experiencing regular episodes of exertional symptoms, however will occasionally experience chest discomfort and shortness of breath at rest. Symptoms are certainly exacerbated by exertion and improves after several minutes of rest. Is hardly able to walk up half of a flight of stairs without stopping to rest. Underwent exercise nuclear stress test at [facility] and was told that this was normal, although mentions he was only able to exercise for 2 to 3 minutes on the treadmill before experiencing symptoms. Has noticed a significant decline in his functional capacity and is not able to participate in enjoyable activities or work. Systems review A 10 point review of [...] of seronegative inflammatory arthritis ??? Facial rash Past Surgical History: Procedure Laterality Date ??? CARDIAC PACEMAKER PLACEMENT ??? CATARACT REMOVAL bilateral ??? CHOLECYSTECTOMY 2004 ??? EYE SURGERY ??? HERNIA REPAIR Medications Current Outpatient Medications on File Prior to Visit Medication Sig Dispense Refill ??? aspirin 81 mg EC tablet Take 81 mg by mouth daily. ??? finasteride (PROSCAR) 5 mg tablet Take 5 mg by mouth daily. ??? folic acid (FOLVITE) 1 mg tablet Take 1 Tab by mouth daily. 90 Tab 3 ??? hydroxyurea (HYDREA) 500 mg capsule Take 1 Cap by mouth daily for 90 days. 90 Cap 0 ??? ibuprofen (MOTRIN) 200 mg tablet Take 200 mg by mouth every 6 hours as needed for Pain. ??? isosorbide MONOnitrate (IMDUR) 30 mg CR tablet Take 30 mg by mouth daily. ??? methotrexate 2.5 mg tablet Take 10 Tabs by mouth once a week. 120 Tab 3 ??? metoprolol XL (TOPROL-XL) 25 mg tablet TK 1 T PO D ??? omeprazole (PRILOSEC) 40 mg capsule ??? simvastatin (ZOCOR) 40 mg tablet Take 40 mg by mouth every evening. No current facility-administered medications on file prior [...] file Occupational History ??? Not on file Social Needs ??? Financial resource strain: Not on file ??? Food insecurity Worry: Not on file Inability: Not on file ??? Transportation needs Medical: Not on file Non-medical: Not on file Tobacco Use ??? Smoking status: Former Smoker Packs/day: 3.00 Years: 20.00 Pack years: 60.00 Types: Cigarettes, Cigars Quit date: 09/15/1980 Years since quittin.1 ??? Smokeless tobacco: Never Used ? ? Tobacco comment: Quit >30 years ago Substance and Sexual Activity ??? Alcohol use: Yes Comment: Occasional beer ??? Drug use: No ??? Sexual activity: Not on file Lifestyle ??? Physical activity Days per week: Not on file Minutes per session: Not on file ??? Stress: Not on file Relationships ??? Social connections Talks on phone: Not on file Gets together: Not on file Attends episcopalian service: Not on file Active member of club or organization: Not on file Attends meetings of clubs or organizations: Not on file Relationship status: Not on file ??? Intimate partner violence Fear of current or ex partner: Not on file Emotionally abused: Not on file Physically abused: Not on file Forced sexual activity: Not on file Other Topics Concern ??? 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 General - A/Ox3, no acute distress [...] intact Peripheral neurology - no focal deficits LABS Lab Results Component Value Date WBC 8.98 12/06/2019 HGB 14.3 05/19/2020 HCT 58.4 (H) 12/06/2019 MCV 97.5 (H) 05/19/2020 PLT 243 05/19/2020 Lab Results Component Value Date CREATININE 1.06 05/19/2020 CREATININEEX 1.1 09/05/2020 Lab Results Component Value Date NA 138 05/19/2020 K 4.5 05/19/2020 KEXT 4.7 09/05/2020 CL 102 05/19/2020 CLEXT 102 09/05/2020 CO2 28 05/19/2020 CO2EXT 30.0 09/05/2020 Lab Results Component Value Date TSH 0.38 09/15/2013 Lab Results Component Value Date HGBA1C 6.0 04/08/2012 Lab Results Component Value Date CHOL 111 04/08/2012 HDL 22 04/08/2012 LDLBASE 66 04/08/2012 TRIG 117 04/08/2012 CHOLHDL 5.0 04/08/2012 1. Exertional Chest Pain Unclear etiology, however due to underlying polycythemia vera there is increased concern for a thromboembolic event. Differentials include PE, ACS, unlikely pericarditis or myocarditis. Recommended he undergo further evaluation in the emergency department. If he is stable and able to be discharged home would suggest antianginal therapy with plans for outpatient cardiac catheterization to assess for flow-limiting coronary disease. Was only able to make it 2-3 mins on Gerald Protocol on recent nuclear stress test before reproduction of symptoms which is concerning. Hemodynamically stable. 12 lead EKG shows an AP rhythm with no evidence of ischemia. Claire Herrmann NP [facility] Cardiology documented in this encounter Miscellaneous Notes Addendum Note - Claire Herrmann APRN - 11/09/2020 1345 EDT Addended by: CLAIRE HERRMANN on: 11/09/2020 17:12 Modules accepted: Orders ddendum Note - Claire Herrmann APRN - 11/09/2020 1345 EDT Addended by: CLAIRE HERRMANN on: 11/09/2020 17:11 Modules accepted: Orders documented in this encounter Plan of Treatment Upcoming Encounters Date Type Specialty Care Team Description 12/27/2021 Office Visit Hematology and Erin Barillas M D Oncology 111 [facility] [address] [place] [phone] (Wo rk) 02/14/2022 Office Visit Hematology and Erin Barillas M D Oncology 111 [facility] [address] [place] [address] (Wo rk) 04/25/2022 Ancillary Procedure Cardiology 04/25/2022 Office Visit Cardiology Claire Herrmann , FESTUS 130 [facility] [address] [phone] (Wo rk) 05/13/2022 Office Visit Rheumatology Tod Perez NP 111 [facility], [address] [phone] (Wo rk) documented as of this encounter Procedures Procedure Name Priority Date/Time Associated Diagnosis Comme nts XR CHEST 2 VIEWS 11/09/2020 16:33 EDT Res ults for this procedure are i n the results section. EKG 12-LEAD 11/09/2020 14:46 EDT Results for this procedure are i n the results section. EKG 12-LEAD 11/09/2020 13:44 EDT Results for this procedure are i n the results section. documented in this encounter Results XR CHEST 2 VIEWS (11/09/2020 16:33 EDT) Specimen [facility] RADIOLOGY - 11/09/2020 16:33 EDT ? EXAM: RADIOLOGY/CHEST PA ?? LAT ?EX. D/ (1627) ? CLINICAL INFORMATION: ? SOB/cp ? PROCEDURE INFORMATION: ? Exam: XR Chest ? Exam date and time: 11/09/2020 4:0 1 PM ? Age: 75 years old ? Clinical indication: Pain; Other: Cp; Additional info: Sob/cp ? TECHNIQUE: ? Imaging protocol: XR of the chest . ? Views: 2 views. ? COMPARISON: ? CR (CHEST, CHEST PA) 05/19/2020 3: 25 PM ? FINDINGS: ? Tubes, catheters and devices: Pac emaker. ? Lungs: ??Hyperinflation, intersti tial prominence, and trace ? basilar airspace disease. ? Pleural spaces: No significant pl eural effusion. ? Heart/Mediastinum: No cardiomegal y. ? Vasculature: Calcification of the thoracic aorta. ? Bones/joints: Degenerative change . ? IMPRESSION: ? 1. Hyperinflation, interstitial p rominence, and trace basilar ? airspace disease. ? 2. Additional findings as describ ed above. ? REPORT SIGNED IN OTHER VENDOR SYSTEM 11/09/2020 ?Reported B y: Gerald Garcia ? CC: ? Transcribed Date/Time: 11/09/2020 (1633) ? Hotel Staff Member: ? Printed Date/Time: 11/09/2020 (16 33) ? PAGE 1 ? Arcelia d Report ? Procedure Note Gerald Garcia MD - 11/09/2020 EXAM: RADIOLOGY/CHEST PA LAT EX. D/T: 0 11/09/2020 (1627) CLINICAL INFORMATION: SOB/cp PROCEDURE INFORMATION: Exam: XR Chest Exam date and time: 11/09/2020 4:01 PM Age: 75 years old Clinical indication: Pain; Other: Cp; A dditional info: Sob/cp TECHNIQUE: Imaging protocol: XR of the chest. Views: 2 views. COMPARISON: CR (CHEST, CHEST PA) 05/19/2020 3:25 PM FINDINGS: Tubes, catheters and devices: Pacemaker . Lungs: Hyperinflation, interstitial pro minence, and trace basilar airspace disease. Pleural spaces: No significant pleural effusion. Heart/Mediastinum: No cardiomegaly. Vasculature: Calcification of the thora cic aorta. Bones/joints: Degenerative change. IMPRESSION: 1. Hyperinflation, interstitial promine nce, and trace basilar airspace disease. 2. Additional findings as described abo ve. REPORT SIGNED IN OTHER VENDOR SYSTEM 11/09/2020 Reported By: Gerald Garcia CC: Transcribed Date/Time: 11/09/2020 (6877 ) Hotel Staff Member: Printed Date/Time: 11/09/2020 (9197) PAGE 1 Signed Report Performing Organization Address City/State/ZIP Code Phon e Number [facility] RADIOLOGY EKG 12-LEAD (11/09/2020 14:46 EDT) Specimen Narrative [facility] - 021 14:46 EDT ? [facility] ? Test Date: ?2020-11-09 14:46:13 Pat Name: ? DEON VILLANUEVA ?Department: ?Room: ? Gender: ? M ?Office Supervisor: ?? DT : ?1945 ? Requested By: Order Number: ?Reading MD: ?? Shiv Moran, MD ? Measurements Intervals ?[place] ? Rate: ? 67 ? P: ? NH: ? 242 ?QRS: ?47 QRSD: ? 92 ? T: ?50 QT: ? 460 ? QTc: ?486 ? Interpretive Statements Atrial-paced rhythm with prolonged AV co nduction with premature atrial complexes with aberrant conduction Prolonged QT Abnormal ECG Compared to ECG 05/19/2020 14:35:38 Atrial premature complex(es) now present Aberrant conduction of supraventricular beat(s) now present Prolonged QT interval now present Electronically Signed On 11-09-2020 17:24 :48 EDT by Shiv Moran MD [email or web address] Procedure Note Shiv Moran MD - 11/09/2020 [facility] Test Date: 2020-11-09 14:46:13 Pat Name: DEON VILLANUEVA Department: Room: Gender: Office Supervisor: PEPPER : 1945 Requested By: Order Number: Reading MD: Shiv flowers MD Measurements Intervals [place] Rate: 67 P: NH: 242 QRS: 47 QRSD: 92 T: 50 QT: 460 QTc: 486 Interpretive Statements Atrial-paced rhythm with prolonged AV co nduction with premature atrial complexes with aberrant conduction Prolonged QT Abnormal ECG Compared to ECG 05/19/2020 14:35:38 Atrial premature complex(es) now present Aberrant conduction of supraventricular beat(s) now present Prolonged QT interval now present Electronically Signed On 11-09-2020 17:24 :48 EDT by Shiv Moran MD [email or web address] Performing Organization Address City/State/ZIP Code Phon e Number [facility] [address] [place] [address] EKG 12-LEAD (11/09/2020 13:44 EDT) Specimen Narrative [facility] - 021 13:44 EDT ? [facility] ? Test Date: ?2020-11-09 13:44:16 Pat Name: ? DEON VILLANUEVA ?Department: ?Room: ? Gender: ? M ?Office Supervisor: ?? ES : ?1945 ? Requested By: Order Number: ?Reading MD: ?? Shiv Stellar, MD ? Measurements Intervals ?[place] ? Rate: ? 62 ? P: ?-19 NH: ? 234 ?QRS: ?51 QRSD: ? 86 ? T: ?54 QT: ? 442 ? QTc: ?448 ? Interpretive Statements Atrial-paced rhythm with prolonged AV co nduction Abnormal ECG Compared to ECG 05/19/2020 14:35:38 No significant changes Electronically Signed On 11-09-2020 17:26 :13 EDT by Shiv Moran MD [email or web address] [email or web address] Procedure Note Shiv Moran MD - 11/09/2020 [facility] Test Date: 2020-11-09 13:44:16 Pat Name: DEON VILLANUEVA Department: Room: Gender: Office Supervisor: : 1945 Requested By: Order Number: Reading MD: Shiv flowers MD Measurements Intervals [place] Rate: 62 P: -19 NH: 234 QRS: 51 QRSD: 86 T: 54 QT: 442 QTc: 448 Interpretive Statements Atrial-paced rhythm with prolonged AV co nduction Abnormal ECG Compared to ECG 05/19/2020 14:35:38 No significant changes Electronically Signed On 11-09-2020 17:26 :13 EDT by Shiv Moran MD [email or web address] Performing Organization Address City/State/ZIP Code Phon e Number [facility] [address] [place] [address] documented in this encounter Visit Diagnoses Diagnosis Exertional chest pain - Primary Chest pain, unspecified documented in this encounter Discontinued Medications Medication Sig Discontinue Reason Start Date End Date isosorbide MONOnitrate Take 30 mg by mouth 10/21/2020 11/09/2020 (IMDUR) 30 mg CR tablet daily. simvastatin (ZOCOR) 40 mg Take 40 mg by mouth Alternate therapy 11/09/2020 tablet every evening. documented as of this encounter Historical Medications This list may reflect changes made after this encounter. Medication Sig Dispensed Refills Start Date End Date isosorbide MONOnitrate Take 30 mg by mouth 0 01/202111/09/2020 (IMDUR) 30 mg CR tablet daily. added in this encounter Orders Case Request Count Last Ordered Date First Ordered Date CASE REQUEST OPERATIONS SECTION MANAGER 1 11/09/2020 documented in this encounter Care Teams Mobile Home Servicer Relationship Specialty Start Date End Date Layne Cai MD PCP - General 04/05/20 [address] [place] [phone] documented as of this encounter
--- OUTSIDE RECORDS SUMMARY | 2021-12-21 01:20 | XMS_ITS | Encounter Summary ---
:1945 Author Organization [facility] Address [address] [place] [address] Care Team Providers Name Role Phone Layne Cai MD Primary Care Provider Claire Lopez SAFETY COUNSELOR Unavailable Tod Perez SAFETY COUNSELOR Unavailable Reason for Visit Reason Onset Date Comments Coordination Of Care 04/18/2021 Encounter Details Date Type Department Care Team Description 04/18/2021 Telephone [facility] Hematology & Oncology - TRAM Di[facility] [address] [place] [address] Social History Tobacco Use Types [...] this encounter Miscellaneous Notes Telephone Encounter - Chikis Bearden RN - 04/18/2021 1328 EDT Called [facility] and requested 03/23 labs be sent to us as patient has a follow up this week. documented in this encounter Plan of Treatment Upcoming Encounters Date Type Specialty Care Team Description 12/27/2021 Office Visit Hematology and Erin Barillas M D Oncology [address] [place] [phone] (Wo rk) 02/14/2022 Office Visit Hematology and Erin Barillas M D Oncology [address] [phone] (Wo rk) 04/25/2022 Ancillary Procedure Cardiology 04/25/2022 Office Visit Cardiology Claire Lopez NP [address] [place] [address] [phone] (Wo rk) 05/13/2022 Office Visit Rheumatology Tod Perez NP 111 [facility], [address] [phone] (Wo rk) documented as of this encounter Visit Diagnoses Not on filedocumented in this encounter Care Teams Coin Machine Supervisor Relationship Specialty Start Date End Date Layne Cai MD PCP - General 04/05/[address] [place] [phone] Claire Lopez NP Cardiovascular Disease 11/22/20 130 [facility] [address] [place] [phone] Tod Perez, FESTUS Rheumatology 12/28/[address] [facility] [address] [place] [address] documented as of this encounter
--- OUTSIDE RECORDS SUMMARY | 2021-12-21 01:20 | XMS_ITS | Encounter Summary ---
:1945 Author Organization [facility] Address [address] [place] [address] Care Team Providers Name Role Phone Layne Cai MD Primary Care Provider Claire Lopez LAMINATION ASSEMBLER Unavailable Encounter Details Date Type Department Care Team Description 11/22/2020 Travel Social History Tobacco Use Types Packs/Day Years [...] Hematology and Erin Barillas M D Oncology [address] [place] [phone] (Wo rk) 02/14/2022 Office Visit Hematology and Erin Barillas M D Oncology [address] [phone] (Wo rk) 04/25/2022 Ancillary Procedure Cardiology 04/25/2022 Office Visit Cardiology Claire Lopez NP [address] [place] [phone] (Wo rk) 05/13/2022 Office Visit Rheumatology Tod Perez NP 111 [facility] [address] [place] [address] (Wo rk) documented as of this encounter Visit Diagnoses Not on filedocumented in this encounter Care Teams Schedule Analyst Relationship Specialty Start Date End Date Layne Cai MD PCP - General 04/05/[address] [place] [phone] Claire Lopez NP Cardiovascular Disease [facility]/22/20 [facility] [address] [place] [phone] documented as of this encounter
--- OUTSIDE RECORDS SUMMARY | 2021-12-21 01:20 | XMS_ITS | Encounter Summary ---
:1945 Author Organization [facility] Address [address] [id number] Care Team Providers Name Role Phone Layne Cai MD Primary Care Provider Jessica Claire BASE MANAGER Unavailable Reason for Visit Auth/Cert Specialty Diagnoses / Procedures Referred By Contact Refer red To Contact Diagnoses Exertional chest pain Exertional chest pain [R07.9] Cupid, Invasive Cardiolo gist Referral ID Status Reason Start Date Expiration Date Visits Requ ested Visits Authorized [id number] 11/09/2020 1 1 Encounter Details Date Type Department Care Team Description 11/22/2020 Surgery [facility] Jose Joseph Jr., Coronary Angiogram Invasive Cardiology Unit MD [address] [phone] Level 1 [place] [address] (Wo rk) Surgery Details Date/Time Status Location OR Service Patient Case Class Case Tr auma Class Type Case? 11/22/20 0930 Posted [facility] - Lab Lab 3 Outpatient Elective Procedure Panel 1 Procedure LRB Anes Op Region Wound Class Commen ts Coronary Angiogram Left Chest Surgeon Surgeon Role Service Panel Jose Joseph Jr., MD Primary Cardiovascular 1 Deon Flores MD Fellow Interventional Cardiology 1 Social History Tobacco Use Types Packs/Day Years [...] Sign Reading Time Taken Comments Blood Pressure 145/83 11/22/2020 0950 EDT Pulse - - Temperature 36 ??C (96.8 ??F) 11/22/2020 0950 EDT Respiratory Rate - - Oxygen Saturation 97% 11/22/2020 0950 EDT Inhaled Oxygen - - Concentration Weight 102.9 kg (226 lb 11/22/2020 0950 Simultaneous fi ling. 13.7 oz) EDT User may not hav e seen previous data. Height 182.9 cm (6') 11/22/2020 0950 EDT Body Mass Index 30.77 11/22/2020 0950 EDT documented in this encounter Functional Status [...] documented as of this encounter Discharge Instructions Anastasiya Israel RN - 11/22/2020 Diagnostic Cardiovascular Catheterization Discharge Instructions Department of Cardiology Deon Villanueva, your Procedure was performed by Dr Joseph . Phone # [phone] You have had a Cardiovascular Catheterization performed through a small incision in the artery in your right radial. Your artery was closed using the following method: TR Band Care of your Incision: For your right radial incision, keep the area clean & dry. Leave the sterile dressing in place for 24 hours. After this you may shower but no tub baths, swimming, or hot tubs for 5 days. You may remove your dressing the next day in the shower & wash area gently. (It is best to soak the dressing off with water in the shower. ) Apply a sterile bandage such as a Band Aid to the site after your shower daily until the site heals. DO NOT apply powder or lotion or antibiotic ointment to this area. Activity: Unless your physician instructs you otherwise, continue to drink a lot of fluids for the next 24 hours to flush the dye out of your system. Avoid Driving x 24 hours. If you had an ARM approach, Keep your arm comfortably straight for the first 24 hours and AVOID Bending or Lifting with your ARM for 48-72 hours. No Heavy lifting (>10 pounds) for one week. Normal Observations: Soreness or tenderness at the site that may last one week. Bruising that could last 2 weeks. Formation of a small lump (dime to quarter size) which may last up to 6 weeks. Call your Physician immediately if you experience any of the following: Fever (temp >101), swelling, redness or signs of infection (including yellow discharge). Persistent and increasing pain at the site of the wound, in your extremity or your back. Numbness or tingling at a point below the wound Skin Rash If you have not been able to Urinate within 24 hours of the procedure. *If you note any signs of bleeding, such as bulging under the skin (size of a golf ball or larger)put Direct Pressure on the area and Call your Doctor immediately.If bleeding persists after 10 minutes with pressure held call 911. *Please make a follow-up appointment with your Primary Care Physician 2 weeks after your Cardiac Catheterization was performed. documented in this encounter Medications at Time [...] capsuleIndications: daily for 90 days. polycythemia vera ibuprofen (MOTRIN) 200 mg Take 200 mg by 0 12/15/2020 tablet mouth every 6 hours as needed for Pain. isosorbide MONOnitrate Take 1 Tab by mouth 90 Tab 3 10/1503/02/2021 (IMDUR) 60 mg CR tablet daily. methotrexate 2.5 mg Take 10 Tabs by 120 Tab 1 11/16/2020 04/03/2021 tabletIndications: mouth once a week. Inflammation around joint, Encounter for long-term (current) use of medications documented as of this encounter Discharge Disposition Disposition Code Departure Means Destination Home or Self [facility] documented in this encounter Progress Notes Jeannette Hernandez RN - 11/22/2020 1517 EDT 1515 Reviewed discharge instructions with patient and . Verbalized understanding of discharge instructions. Anastasiya Carreon RN - 11/22/2020 1419 EDT Deon Villanueva arrived to CVU # 5 at 1142 via stretcher s/p diag heart cath. Alert and oriented x3. 1330 Discharge instructions gone over with pt and , copy given 1345 5ml removed from tr band immediate bleeding noted 3 place back in 1430 Last 4ml removed from tr band no bleeding or hematoma noted, good csmt. TR Band removed dsd applied,, Report given to Octavia hernandez rn. Kristina Worrell RN - 11/22/2020 1002 EDT Deon Villanueva arrived to the Cardiovascular Unit via ambulation. Patient alert and oriented x3. Transfers to stretcher independently. Patient greeted and identified per [facility] medical center policy. Allergies and procedure verified & patient oriented to Unit. Reviewed all pre-procedure instructionswith Deon Villanueva. All questions answered & patient verbalizes willingness and understanding of pre-procedure education. Patient stretcher in low position with side rails up & call boyle within patient reach. Patient's spouse is at bedside No covid symptoms. Lin Fisher RN - 11/15/2020 1231 EDT Pt's support person is fully vaccinated. Precardiac Cath Nursing Checklist Recent Labs: Lab Results Component Value Date BUN 19 11/09/2020 CREATININE 1.01 11/09/2020 HGB 13.6 (L) 11/09/2020 CALCGFR >60 11/09/2020 Hgt: 181.6cm Wgt: 104.2kg Allergies: Allergies Allergen Reactions ??? Lisinopril Causes chest pain. ? Myocardial bridging Local [facility] - [address] [address] Cardiac History: Stress Test? No Reason for Cath: chest pain, SOB Anginal equivalent:: Cardiac Procedures: no Stent Type/Size: Cardiac surgery: no Medical/Surgical History: Patient has a past medical history of Arthritis, Biliary colic, Cataract (bilateral), Enlarged prostate, GERD (gastroesophageal reflux disease), Heart imaging (Left heart Cath 2011 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), Hypercholesteremia, Hypertension, Inguinal hernia (bilateral), Pacemaker, and Sleep apnea (weaing cpap). Patient has a past surgical history that includes Cholecystectomy; Cataract removal; hernia repair; eye surgery; and Cardiac pacemaker placement. Chronic Risk Factors: HTN, HLD and CKD III Smoking and Alcohol intake: reports that he quit smoking about 40 years ago. His smoking use included cigarettes and cigars. He has a 60.00 pack-year smoking history. He has never used smokeless tobacco. He reports current alcohol use. History of complications from sedation: No Patient Instructions: Patient Instructed by: Patient instructed by Advanced Testing Nurse NPO Instructions: Patient/family instructed to have no solid food after midnight and to stop drinking clear liquids 3 hours prior to registration time. Diabetic Pre procedure Instructions: N/A Shower Instructions: Patient/family instructed to shower the night before or the day of the procedure. Registration location: Patient/family instructed to register on the 3rd floor [facility]. Transportation Issues: No Patient/family instructed that they will need a designated food service driver if they are discharged on the day of the procedure. Medications: Medication list: Patient/family instructed to bring medication list with them on the day of the procedure. Anticoagulants/Antiplatelets: Takes Aspirin 81 mg daily Anti-Anginal meds: B-Blockers and Long acting Nitrates LIN FLORES RN arkLin Montejo RN - 11/15/2020 1214 EDT Images from the original note were not included. [facility] [address] [place] [id number] Ara Melchor is important information regarding your upcoming Cardiac Catheterization procedure. I will callyou soon to go over these and answer any questions you may have. Please feel free to call with any questions or concerns, using phone numbers provided at the end of this letter. Procedure Date: Wednesday 11/22 Check in at: 0630am Performing Physician: Reid Brown Pre-procedure Nursing Instructions Have no solid food or liquids containing fats, including milk, after midnight before your procedure. You may have fat free liquids (clear liquids) until 4 hours before the scheduled time of check in. Fat free clear liquids include water, clear fruit juices (apple or cranberry), carbonated beverages, Jell-O, black or sweetened coffee and tea. 1. On the morning of your procedure please take your regular morning medications with a small amountof water. 2. Please REMAIN on your Aspirin. 3. Please self-quarantine as much as possible prior to your procedure. 4. Please shower the evening before or the morning of your procedure. 5. Please do not bring any medications with you to the hospital; it is important however to bring anaccurate list of the medications you are currently taking. 6. You may need to spend the night in the hospital, so please plan accordingly by bringing an overnight bag with simple items, such as a tooth brush, change of clothes, etc. We request that you leave any valuables at home unless you are able to hand them over to the support person with you. IF you need to spend the night you will be Allowed 1 FULLY vaccinated visitor per day. (Fully Vaccinated is hasreceived 1 J&J, or both doses of the Pfizer or Moderna vaccine a FULL 14 days prior to admission). 7. If you do not need to spend the night, you will be discharged once you have recovered. When you go home you will need a designated food service driver, or a responsible adult to accompany you if you are taking public transportation or a cab. 8. The pre-registration department will call you 1 to 2 business days before your procedure to verify your address and insurance information. You will still need to stop by registration the day of yourprocedure. When you arrive at the Hospital 1. Park in the underground garage, and take any elevator to the 3rd floor registration; or you may prefer to have your food service driver drop you off at the front entrance. 2. You will be met by our COVID greeters at the entrance to the hospital and your temperature will be taken. You may have only one person accompany you. 3. Please request a wheelchair within the lobby if needed. There is a long walk (the length of 2 football hussein) between registration and the cardiovascular unit. We have volunteers available to escort you. 4. The registration staff will direct you to the Cardiovascular Unit waiting room. Please check in with the radiology receptionist and they will notify of your arrival. If someone is accompanying you they will stay in the waiting room until your procedure is done. 5. When you arrive where you will be prepped for your procedure, the nurse will initiate your pre-procedure admission by reviewing your information, medications, etc. You will also have an intravenous started and possible some blood work drawn. 6. When the procedure is over, the doctor will meet with your family member or friend to review the results. We are here to help, so should you need assistance feel free to call anyone listed below with questions. Cath Fiberglass Boat Maker ??? [phone] Advanced Testing Nurse- [phone] ~ Lin Patients & Visitors Information [email or web address] documented in this encounter H&P Notes Deon Azevedo MD - 11/22/2020 1056 EDT CARDIOLOGY ADMISSION H&P Admit Date: 11/22/2020 PCP: Layne Cai Chief Complaint: SOB and PENDLETON HPI: Deon Villanueva is a 75 y.o. 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 Patient follows with Dr. Chawla with noted generator change 06/27/2020 and follow-up for complaints of exertional CP, S OB, diaphoresis. Symptoms noted over the past few months occurring both at rest and with exertion. Underwent nuclear stress test at [facility] which had been reportedly normal. ROS: Full 10 point system obtained; negative unless indicated in the HPI Relevant prior Cardiac Studies: [facility]: 04/08/2012: Left Main Artery: The left main coronary artery is normal in size and has no significant angiographic lesions. ?? Note injection of RCA is associated with increased pauses of sinus arrest 5 to 10 secs ?? Left Anterior Descending Artery: The LAD was normal in size and had mild luminal irregularities. The proximal portion of the 2nd Diagonal artery has a 50% stenosis The mid LAD has prominent bridging. ?? Circumflex Artery: The circumflex artery was normal in size and had mild luminal irregularities. ?? Right Coronary Artery: The RCA was normal in size and had mild luminal irregularities. The RCA is dominant. TTE: 04/08/12: Summary: 1. Left ventricle: The cavity size was normal. Wall thickness was normal. Systolic function was normal. The estimated ejection fraction was 60-65%. Wall motion was normal; there were no regional wall motion abnormalities. 2. Left atrium: The atrium was mildly dilated. PMH PSH Past Medical History: Diagnosis Date ??? Arthritis [...] 2005 ??? EYE SURGERY ??? HERNIA REPAIR Social History Family History Social History Tobacco Use ??? Smoking status: Former Smoker Packs/day: 3.00 Years: 20.00 Pack years: 60.00 Types: Cigarettes, Cigars Quit date: 09/15/1980 Years since quittin.2 ??? Smokeless tobacco: Never Used ? ? Tobacco comment: Quit >30 years ago Substance Use Topics ??? Alcohol use: Yes Comment: Occasional beer Family History Problem Relation Age of Onset ??? Diabetes Father ??? Stroke Father ??? Diabetes Brother ??? Arthritis Mother unkown type Medications No current facility-administered medications on file prior to encounter. Current Outpatient Medications on File Prior to Encounter Medication Sig Dispense Refill ??? aspirin 81 [...] needed for Pain. ??? isosorbide MONOnitrate (IMDUR) 60 mg CR tablet Take 1 Tab by mouth daily. 90 Tab 3 ??? methotrexate 2.5 mg tablet Take 10 Tabs by mouth once a week. 120 Tab 1 ??? metoprolol XL (TOPROL-XL) 25 mg tablet TK 1 T PO D ??? omeprazole (PRILOSEC) 40 mg capsule Allergies Allergies Allergen Reactions ??? Lisinopril Causes chest pain. ? Myocardial bridging Physical Exam: VS: Patient Vitals for the past 8 hrs: BP Temp SpO2 O2 Device 11/22/20 0950 (!) 145/83 36 ??C (96.8 ??F) 97 % None Weight: Weight : (!) 102.9 kg (226 lb 13.7 oz)(Simultaneous filing. User may not have seen previous data.) BMI: Body mass index is 30.77 kg/m??. GEN: in NAD, alert and oriented, appears stated age HEENT: NC/AT, EOMI, Anicteric, Oral mucosa moist. Neck: supple, trachea midline Resp: No accessory muscle use. Clear to auscultation b/l. No wheezes, crackles, rales or rhonchi. CV: Normal rate, regular rhythm. S1/S2. No MRG appreciated Pulses: Radial 2+ b/l; Femoral 2+ b/l; TP 2+ b/l; DP 2+ b/l. Abd: Soft, NT/ND, +BS. No masses, no organomegaly Ext: No edema, no cyanosis. No calf tenderness. Neuro: Grossly normal, non-focal exam. Skin: Warm, good turgor, no suspicious lesions noted Psych: Mood stable, affect appropriate Data Data reviewed. EKG: Reviewed Labs: WBC/Hgb/Hct/Plts: 7.59/13.9/43.7/315 (11/22 1014) PT/INR/PTT: 12.4/1.1/-- (11/22 101) BMP: Recent Labs 11/22/20 1014 NA 143 K 4.8 CL 106 CO2 25 BUN 22 CREATININE 1.07 Assessment/Plan: 75 y.o. male with a history of CAD, HTN, HLD, SSS (s/p PPM), inflammatory polyarthropathy (on MTX), benign neoplasm of the colon, PV, CKD 3, and BPH presenting for [facility]. Plan: Left heart catheterization to evaluate coronary anatomy and hemodynamics. Aspirin -81 mg daily Anti-anginal -Imdur 30 mg daily, Toprol 25 mg daily Anti-platelet - n/a Anti-coagulation - n/a MCKAY protocol - Yes. CKD 3 Cardiomyopathy - n/a Heart Failure - III PATIENT CONSENT TO CARDIOVASCULAR CATHETERIZATION OR INTERVENTION: I, DEON AZEVEDO MD, have explained the risks and benefits of cardiac catheterization and/or intervention to the patient (or responsible constitution party) and have answered the patient's (or responsible constitution party's) questions. To the best of my knowledge, the patient (or responsible constitution party) has been adequately informed. The patient (or responsible constitution party) has consented to the interventional cardiac procedure. As part of the consent we reviewed that, like surgical procedures, interventional procedures require aggressive short term support to determine the potential benefits of the procedures. For this reason, the patient (or responsible constitution party) has agreed to remain FULL CODE for a minimum of 48 hours after the procedure. DEON AZEVEDO MD 11/22/2020 10:59 documented in this encounter Procedure Notes Jose Joseph Jr., MD - 11/22/2020 1134 EDT Cardiovascular Catheterization Laboratory Preliminary Report -- Catheterization Date of Service/Procedure: 11/22/2020 Attending Physician: Jose Joseph Jr., MD Fellow: Deon Azevedo MD Dear Claire, I had the pleasure of performing cardiac catheterization on Deon Gunn today. As you know, he boogie 75-year-old male with atypical chest discomfort, with both exertional symptoms as well as symptomswith the onset at rest. He has a prior history of cardiac catheterization where no flow-limiting coronary disease was found, including pressure wire assessment of a first diagonal artery. He underwent stress testing recently, with no evidence of perfusion defects. Because of persistent symptoms, he was referred for cardiac catheterization. Details are below. In summary, he has no new flow-limiting coronary artery disease. His films today look identical to those in 2012, with the absence of the vasospasm after pressure wire assessment in 2012. Thus, he has no flow-limiting coronary artery disease, and revascularization is clearly not indicated. The origin of his symptoms is not related to high risk coronary artery disease. Thank you for allowing me to participate in the care of this patient. Please feel free to contact [facility] if you have any questions or concerns. Pre-Procedure Diagnosis /NCDR Indication: Deon Villanueva is a 75 y.o. year old male with new onset angina <= 2 months and stable known CAD. Chest Pain Symptom Assessment: Atypical Angina Heart Failure: No CHSA Clinical Frailty Scale: 3: Managing Well Prior Stress Testing? Yes, with a negative result. Anesthesia: A moderate level of anesthesia/conscious sedation was used in addition to local anesthesia. Access: Right radial artery Procedure: He was brought to [facility] Cardiac Catheterization Laboratory for the procedure: Diagnostic coronary/graft angiography and Left heart cath. Closure: TR Band Post-Procedure Condition: The condition of the patient was Good. Complications: None. IV Contrast Total: 70 mL X-ray Dose: 384 mGy Estimated Blood Loss: Minimal. Unless otherwise noted,there were no specimens removed, cultures obtained, or drains retained. Research Study: Patient is not enrolled in a research study. Diagnostic Cardiac Study Results Left main: Free of angiographically significant disease. Left anterior descending: Minor luminal irregularities. Minor disease in D1 and LAD unchanged. Left circumflex: Minor luminal irregularities. Right coronary artery: Dominant. High anterior origin in RCC. Minor luminal irregularities. Hemodynamic Results LVEDP 12 There was no gradient across the aortic valve. Post-Procedure Diagnostic Conclusion: Medical therapy is indicated. Plan: Continue prior medications. At the completion of the procedure, the attending physician has explained the findings, therapies, any complications and treatment plan to the patient. With the patients consent, all family members andpatient support persons who were present at the conclusion of the procedure have been notified of these results and treatment plans as well. Post Procedure Follow Up: Patient to follow up with Claire Lopez in 4 weeks Jose Joseph Jr., MD PagerNumber: [phone] 11/22/2020 11:34 documented in this encounter Plan of Treatment Upcoming Encounters Date Type Specialty Care Team Description 12/27/2021 Office Visit Hematology and Erin Barillas M D Oncology [address] [place] [address] [address] [place] [phone] (Wo rk) 02/14/2022 Office Visit Hematology and Erin Barillas M D Oncology [address] [facility] 2 [place] [address] (Wo rk) 04/25/2022 Ancillary Procedure Cardiology 04/25/2022 Office Visit Cardiology Claire Lopez NP [address] [facility] [address] [place] [phone] (Wo rk) 05/13/2022 Office Visit Rheumatology Tod Perez NP [address] [facility], [address] [place] [address] (Wo rk) documented as of this encounter Procedures Procedure Name Priority Date/Time Associated Comments Diagnosis ECG REPORT - SCANNED 11/27/2020 14:03 EDT ECG REPORT - SCANNED 11/27/2020 14:03 EDT ECG REPORT - SCANNED 11/23/2020 16:32 EDT CARDIAC CATHETERIZATION Routine 11/22/2020 11:38 Exertional ch est Results for this EDT pain procedure are i n the results section. PROTIME STAT 11/22/2020 10:14 Results for this EDT procedure are i n the results section. COMPLETE BLOOD COUNT STAT 11/22/2020 10:14 Res ults for this EDT procedure are i n the results section. BUN STAT 11/22/2020 10:14 Results for this EDT procedure are i n the results section. CREATININE STAT 11/22/2020 10:14 Results for this EDT procedure are i n the results section. ELECTROLYTES STAT 11/22/2020 10:14 Results for this EDT procedure are i n the results section. EKG 12-LEAD Routine 11/22/2020 10:03 Results for this EDT procedure are i n the results section. documented in this encounter Results CORONARY ANGIOGRAM (11/22/2020 11:38 EDT) Specimen Narrative [facility] - 11/28/2020 12:28 EDT Cardiology [address] [place] [address] Catheterization Laboratory Study Patient: Deon Villanueva ? Study Date: ? 11/22/2020 ? Accession #: ?[id number] : ? 1945 Referring: Claire Lopez Aprn Diagnostic Attending: ??Jose Joseph Interventional Attending: ?? Glendy Joseph Interventional Fellow: Deon Azevedo ATTESTATION: IDr. Deon was the initial a uthor of this report. Dr. Jose Joseph was present and supervisin g for the entire procedure. I, Dr. Jose Joseph have reviewed and agre ed with the findings of this report. (Report amended ) PROCEDURE PLAN: A diagnostic study was performed without intervention. RESEARCH STUDY: Patient is not enrolled in any research studies. IMPRESSIONS: Mild coronary artery disease. SUMMARY: 1. HPI and indications: Dyspnea. Sinus b radycardia. 2. Coronary arteries: The coronary circu lation is right dominant. 3. Left main: Normal. 4. LAD: Minor luminal irregularities. 5. 1st diagonal: Minor luminal irregular ities. Unchanged. 6. Left circumflex: Minor luminal irregu larities. 7. Right coronary: Minor luminal irregul arities. High anterior origin. RECOMMENDATIONS: ACC recommendation: Medical therapy and/ or counseling. HISTORY: Dyspnea. ??Sinus bradycardia. ??Function al status: ?? Normal LV systolic function; NYHA class III (symptoms with minimal exercise). ??Risk factors: ??Hypertension. Dyslipidemia. LABS, PRIOR TESTS, PROCEDURES AND SURGER Y: International normalized ratio (INR) of 1.1. ??Serum potassium (K) of 4.8 mEq/l. ??Serum creatinine (current admis nguyen) of 1.07 mg/dl. ??Blood urea nitrogen of 22 mg/dl. ??Platelet count o f 315 th/ul. ??Hematocrit of 43.7 %. ??Hemoglobin (pre-procedure) of 13.9 g/dl. STUDY DATA: Study status: ??Cardiac cath: elective. ??Location: ??Catheterization laboratory. Sex: male. Patient is 75yr o ld. Height: 182.9cm. Weight: 102.9kg. BSA: 2.31m^2. Procedures performed: ?Left heart catheterization. ?Right radial artery access. ?Left coronary angiog ming. ?Right coronary angiography. ANESTHESIA: Conscious sedation by cardiology staff. PROCEDURE: 1. Initial setup. The patient was deana t to the laboratory in the ?? fasting state. A baseline ECG was re corded. Surface ECG leads, ?? automatic cuff blood pressure measur ements, and pulse oximetric ?? signals were monitored. 2. Skin preparation. The planned punctur e sites were prepped with ?? chlorhexidine and draped in the usua l sterile manner. 3. Local anesthesia. Using 2% Lidocaine, local anesthetic was ?? administered to the access site(s). 4. Left heart catheterization. A 5 FR Ja cky catheter was successfully ?? advanced across the aortic valve to the left ventricle under ?? fluoroscopic guidance. Resting hemod ynamics were obtained. ?? Post-ventriculography LV pressure wa s obtained. The catheter was ?? gradually withdrawn into the aorta w ith continuous pressure ?? recording. 5. Right radial artery access. A 6FR/.02 1 Zumbrota Sheath Slender sheath ?? was advanced into the vessel. 6. Selective left coronary angiography. A 5 FR Dennis catheter was ?? advanced into the left coronary vess el ostium under fluoroscopic ?? guidance. Contrast was injected. Tia ges were obtained in multiple ?? projections. 7. Selective right coronary angiography. A 6F WRP catheter was advanced ?? into the right coronary vessel ostiu m under fluoroscopic guidance. ?? Contrast was injected. Images were o btained in multiple projections. 8. Right radial artery hemostasis. Mecha nical compression was applied. STUDY COMPLETION: The estimated blood loss was 10ml. All c atheters inserted during the procedure were removed. The patient saman rated the procedure well and was discharged from the lab. There were no c omplications. ??Contrast: Isovue 70ml (total dose). ??Isovue 130ml (wasted). ??Fluoroscopy time: 7.2min. ??Fluoroscopy dose: ??38.4cGy. CORONARY ARTERIES: The coronary circulation is right domina nt. Left main: ??Normal. LAD: ??Minor luminal irregularities. 1st diagonal: ??Minor luminal irregulari ties. Unchanged. Left circumflex: ??Minor luminal irregul arities. Right coronary: ??Minor luminal irregula rities. High anterior origin. HEMODYNAMICS: LVEDP 12 There was no gradient across the aortic valve. End diastolic pressure in the left ventr icle is normal. + + + LV pressure s/ed ? 120/12 ? + + + Arterial pressure s/d (m) 125/64 (91) + + + * Amended and electronically signed by Jose Joseph Jr., MD 2020-12-04 11:01 Procedure Note Jose Joseph Jr., MD - 12/04/2020 Cardiology [address] [place] [address] Catheterization Laboratory Study Patient: Deon Villanueva Study Date: : 1945 Referring: Claire Lopez Aprn Diagnostic Attending: Jose Joseph Interventional Attending: Jose Joseph Interventional Fellow: Deon Azevedo ATTESTATION: Dr. Deon Prajapati was the initial a uthor of this report. Dr. Jose Joseph was present and supervisin karla for the entire procedure. Dr. Jose Prajapati have reviewed and agre ed with the findings of this report. (Report amended ) PROCEDURE PLAN: A diagnostic study was performed without intervention. RESEARCH STUDY: Patient is not enrolled in any research studies. IMPRESSIONS: Mild coronary artery disease. SUMMARY: 1. HPI and indications: Dyspnea. Sinus b radycardia. 2. Coronary arteries: The coronary circu lation is right dominant. 3. Left main: Normal. 4. LAD: Minor luminal irregularities. 5. 1st diagonal: Minor luminal irregular ities. Unchanged. 6. Left circumflex: Minor luminal irregu larities. 7. Right coronary: Minor luminal irregul arities. High anterior origin. RECOMMENDATIONS: ACC recommendation: Medical therapy and/ or counseling. HISTORY: Dyspnea. Sinus bradycardia. Functional s tatus: Normal LV systolic function; NYHA class III (symptoms with minimal exercise). Risk factors: Hypertension. Dyslipidemia. LABS, PRIOR TESTS, PROCEDURES AND SURGER Y: International normalized ratio (INR) of 1.1. Serum potassium (K) of 4.8 mEq/l. Serum creatinine (current admissi on) of 1.07 mg/dl. Blood urea nitrogen of 22 mg/dl. Platelet count of 315 th/ul. Hematocrit of 43.7 %. Hemoglobin (pre-procedure) of 13.9 g/ dl. STUDY DATA: Study status: Cardiac cath: elective. Lo cation: Catheterization laboratory. Sex: male. Patient is 75yr o ld. Height: 182.9cm. Weight: 102.9kg. BSA: 2.31m^2. Procedures performed: Left heart cathete rization. Right radial artery access. Left coronary angiography . Right coronary angiography. ANESTHESIA: Conscious sedation by cardiology staff. PROCEDURE: 1. Initial setup. The patient was deana t to the laboratory in the fasting state. A baseline ECG was recor ded. Surface ECG leads, automatic cuff blood pressure measureme nts, and pulse oximetric signals were monitored. 2. Skin preparation. The planned punctur e sites were prepped with chlorhexidine and draped in the usual s terile manner. 3. Local anesthesia. Using 2% Lidocaine, local anesthetic was administered to the access site(s). 4. Left heart catheterization. A 5 FR Ja Revision Militaryy catheter was successfully advanced across the aortic valve to the left ventricle under fluoroscopic guidance. Resting hemodyna mics were obtained. Post-ventriculography LV pressure was o btained. The catheter was gradually withdrawn into the aorta with continuous pressure recording. 5. Right radial artery access. A 6FR/.02 1 Zumbrota Sheath Slender sheath was advanced into the vessel. 6. Selective left coronary angiography. A 5 FR Dennis catheter was advanced into the left coronary vessel ostium under fluoroscopic guidance. Contrast was injected. Images were obtained in multiple projections. 7. Selective right coronary angiography. A 6F WRP catheter was advanced into the right coronary vessel ostium u nder fluoroscopic guidance. Contrast was injected. Images were obta ined in multiple projections. 8. Right radial artery hemostasis. Mecha nical compression was applied. STUDY COMPLETION: The estimated blood loss was 10ml. All c atheters inserted during the procedure were removed. The patient saman rated the procedure well and was discharged from the lab. There were no c omplications. Contrast: Isovue 70ml (total dose). Isovue 130ml ( wasted). Fluoroscopy time: 7.2min. Fluoroscopy dose: 38.4cGy. CORONARY ARTERIES: The coronary circulation is right domina nt. Left main: Normal. LAD: Minor luminal irregularities. 1st diagonal: Minor luminal irregulariti es. Unchanged. Left circumflex: Minor luminal irregular ities. Right coronary: Minor luminal irregulari ties. High anterior origin. HEMODYNAMICS: LVEDP 12 There was no gradient across the aortic valve. End diastolic pressure in the left ventr icle is normal. + + + LV pressure s/ed 120/12 + + + Arterial pressure s/d (m) 125/64 (91) + + + * Amended and electronically signed by Jose Joseph Jr., MD 2020-12-04 11:01 Performing Organization Address City/[facility]/ZIP Code Phon e Number [facility] PROTIME (11/22/2020 10:14 EDT) Pathologist Sig yohana I.N.R. 1.1 0.9 - 1.1 Ratio [facility] Pro Time 12.4 10.4 - 12.6 secs [facility] Specimen Blood - Venous blood (substance) Narrative [facility] - 11/22/2020 10:38 EDT Moderate Intensity Coumadin INR = 2.0-3.0 Adjustments in anticoagulant therapy dos e should be based on the INR and NOT on the Protime. Performing Organization Address [facility] Phon e Number [facility] [address] [place] [address] SERVICES (ABNORMAL) COMPLETE BLOOD COUNT (11/22/2020 10:14 EDT) Pathologist Sig yohana WBC 7.59 4.00 - 10.40 K/cmm [facility] RBC 4.86 4.36 - 5.78 M/cmm [facility] Hemoglobin 13.9 13.8 - 17.3 gm/dL [facility] HCT 43.7 39.5 - 50.2 % [facility] MCV 90 81 - 95 fl [facility] MCH 28.6 27.6 - 33.0 pg [facility] MCHC 31.8 (L) 32.8 - 36.4 gm/dL [facility] RDW-CV 18.4 (H) <14.2 % [facility] RDW-SD 58.2 (H) <46.0 fl [facility] PLT 315 141 - 377 K/cmm [facility] MPV 11.8 9.5 - 12.7 fl [facility] Specimen Blood - Venous blood (substance) Performing Organization Address [facility]/ZIP Code Phon e Number [facility] [address] [place] [address] SERVICES ELECTROLYTES (11/22/2020 10:14 EDT) Pathologist Sig nature Sodium 143 136 - 145 mEq/L [facility] Potassium 4.8 3.5 - 5.0 mEq/L [facility] Chloride 106 96 - 110 mEq/L [facility] CO2 Total 25 22 - 32 mEq/L [facility] Specimen Blood - Venous blood (substance) Performing Organization Address [facility]/ZIP [facility] Phon e Number [facility] [address] [place] [address] SERVICES CREATININE (11/22/2020 10:14 EDT) Creatinine 1.07 0.66 - 1.25 [facility] mg/dL [facility] eGFR 67Comment: eGFR >60 [facility] calculated using mL/min/1.73m2 LAB[facility]AT[facility] SERVICES CKD-EPI equation for non- Americans. Multiply eGFR by 1.16 for patients. Specimen Blood - Venous blood (substance) Performing Organization Address [facility]/ZIP Code Phon e Number [facility] [address] [place] [address] SERVICES BUN (11/22/2020 10:14 EDT) Pathologist Sig nature BUN 22 10 - 26 mg/dL [facility] Specimen Blood - Venous blood (substance) Performing Organization Address [facility]/ZIP [facility] Phon e Number [facility] [address] [place] [address] SERVICES EKG 12-LEAD (11/22/2020 10:03 EDT) Specimen Narrative [facility] EKG - 11/23/2020 16:2 7 EDT ? [facility] ? Test Date: ?2020-11-22 Pat Name: ? DEON VILLANUEVA ?Department: ?? CVU ? Room: ? CL Gender: ? Male ? Domestic Cleaner: ?? [id number] : ?1945 ? Requested By: BARRY CHAVES Order Number: [id number] ? Reading MD: ?? SCARLETT JIN MD ? Measurements Intervals ?[place] ? Rate: ? 62 ? P: ?261 MS: ? 239 ?QRS: ?53 QRSD: ? 92 ? T: ?59 QT: ? 442 ? QTc: ?451 ? Interpretive Statements ELECTRONIC ATRIAL PACEMAKER ABNORMAL RHYTHM ECG I reviewed the tracing and have either a greed or edited the findings in this report. Electronically Signed On 11-24-19 16:27:49 EDT by SCARLETT JIN MD. Procedure Note Scarlett Jin MD - 11/23/2020 [facility] Test Date: 2020-11-22 Pat Name: DEON VILLANUEVA Department: CVU Room: Gender: Male Domestic Cleaner: [id number] : 1945 Requested By: BARRY GAMA Order Number: [id number] Reading MD: Boom JIN MD Measurements Intervals [place] Rate: 62 P: 261 MS: 239 QRS: 53 QRSD: 92 T: 59 QT: 442 QTc: 451 Interpretive Statements ELECTRONIC ATRIAL PACEMAKER ABNORMAL RHYTHM ECG I reviewed the tracing and have either a greed or edited the findings in this report. Electronically Signed On 11-24-19 16:27:49 EDT by SCARLETT JIN MD. Performing Organization Address City/State/ZIP Code Phon e Number [facility] EKG documented in this encounter Visit Diagnoses Diagnosis Exertional chest pain - Primary Chest pain, unspecified Exertional chest pain Chest pain, unspecified documented in this encounter Admitting Diagnoses Diagnosis Exertional chest pain Chest pain, unspecified documented in this encounter Administered Medications Inactive Administered Medications - up to 3 most recent administrations Medication Order MAR Action Action Date Dose Rate Site acetaminophen (TYLENOL) tablet 650 Given 11/22/2020 15:11 EDT 65 0 mg mg 650 mg, oral, EVERY 4 HOURS PRN, Starting on Fri11/22/20 at 1141, Until Fri11/22/20 at 1733, Pain, Routine, Release fentaNYL citrate (PF) 50 mcg/mL injectio n 1 dose, Starting on Fri11/22/20 at 1041, Until Fri at 1733 fentaNYL citrate (PF) injection Given 11/22/2020 11:12 EDT 25 mcg PRN, Starting on Fri11/22/20 at 1112, Until Fri11/22/20 at 1138, Routine, Intraprocedure heparin 1,000 unit/mL injection 1 dose, Starting on Fri11/22/20 at 1041, Until Fri at 1733 iopamidoL (ISOVUE-370) injection Given 11/22/2020 11:38 EDT 70 mL PRN, Starting on Fri11/22/20 at 1138, Until Fri11/22/20 at 1138, Routine, Intraprocedure lidocaine 20 mg/mL (2 %) injection 1 dose, Starting on Fri11/22/20 at 1041, Until Fri at 1733 midazolam (PF) (VERSED) 1 mg/mL injectio n 1 dose, Starting on Fri11/22/20 at 1041, Until Fri at 1733 midazolam (PF) (VERSED) injection Given 11/22/2020 11:12 EDT 1 mg PRN, Starting on Fri11/22/20 at 1112, Until Fri11/22/20 at 1138, Routine, Intraprocedure nitroglycerin 100 mcg/mL syringe 1 dose, Starting on Fri11/22/20 at 1041, Until Fri at 1733 sodium chloride 0.9 % (NS) Rate Change 11/22/2020 14:17 EDT 104 mL/hr 104 mL/hr infusion at 30 mL/hr, 30 mL/hr, intravenous, CONTINUOUS, Starting on Fri11/22/20 at 1015, Until Fri11/22/20 at 1733, Routine, Preprocedure Rate Change 11/22/2020 11:52 EDT 30 mL/hr 30 mL/hr sodium chloride 0.9 % (NS) New Bag 11/22/2020 10:26 EDT 3 mL/kg/hr 312.6 mL/hr infusion at 312.6 mL/hr, 3 mL/kg/hr ? 104.2 kg (312.6 mL/hr), intravenous, CONTINUOUS, Starting on Fri11/22/20 at 1015, Until Fri11/22/20 at 1125, Routine, Preprocedure sodium chloride 0.9 % (NS) infusion at 104.2 mL/hr, 1 mL/kg/hr ? 104.2 kg (104.2 mL/hr), intravenous, CON TINUOUS, Starting on Fri11/22/20 at 1126, Until Fri11/22/20 at 1725, Routine, Preprocedure verapamil (ISOPTIN) 2.5 mg/mL injection 1 dose, Starting on Fri11/22/20 at 1041, Until Fri at 1733 documented in this encounter Active and Recently Administered Medications Times are shown in EDT. Continuous Medication Order 11/20/2020 11/21/2020 11/22/2020 sodium chloride 0.9 % (NS) infusion 1015 (Canceled Entry - Provider: Batch Job User Admin - Comment: Automatically canceled at discontinue of medication order)1152 (Rate Change - Provider: Adam Florian RN)1417 (Rate Change - Provider: Anastasiya Steve RN) at 30 mL/hr, 30 mL/hr, intravenous, CONT INUOUS, Starting Fri11/22/20 at 1015, Until Fri11/22/20 at 1733, Routine, Preprocedure sodium chloride 0.9 % (NS) infusion 1026 (New Bag - Provider: Kristina Rivera RN - Comment: rate set at 125/hr) at 312.6 mL/hr, 3 mL/kg/hr ? 104.2 kg (312.6 mL/hr), intravenous, CONTINUOUS, Starting Fri11/22/20 at 1015, Until Fri11/22/20 at 1125, Routine, Preprocedure sodium chloride 0.9 % (NS) infusion 1126 (Canceled Entry - Provider: Batch Job User Admin - Comment: Automatically canceled at discontinue of medication order) at 104.2 mL/hr, 1 mL/kg/hr ? 104.2 kg (104.2 mL/hr), intravenous, CONTINUOUS, Starting Fri11/22/20 at 1126, Until Fri11/22/20 at 1725, Routine, Preprocedure PRN Medication Order 11/20/2020 11/21/2020 11/22/2020 acetaminophen (TYLENOL) tablet 650 mg 1511 (Given - Provider: Jeannette Hernandez RN) 650 mg, oral, EVERY 4 HOURS PRN, Startin g Fri11/22/20 at 1141, Until Fri11/22/20 at 1733, Pain, Routine, Release fentaNYL citrate (PF) injection (CANCELED) 1112 (Given - Provider: Ladonna Couch RN) PRN, Starting Fri11/22/20 at 1112, Until Fri11/22/20 at 1138, Routine, Intraprocedure iopamidoL (ISOVUE-370) injection (CANCELED) 1138 (Given - Provider: Jose Joseph Jr., MD) PRN, Starting Fri11/22/20 at 1138, Until Fri11/22/20 at 1138, Routine, Intraprocedure midazolam (PF) (VERSED) injection (CANCELED) 111 (Given - Provider: Ladonna Couch RN) PRN, Starting Fri11/22/20 at 1112, Until Fri11/22/20 at 1138, Routine, Intraprocedure No Frequency Medication Order 11/20/2020 11/21/2020 11/22/2020 fentaNYL citrate (PF) 50 mcg/mL injection 1 dose, Starting Fri11/22/20 at 1041, Until Discontinued heparin 1,000 unit/mL injection 1 dose, Starting Fri11/22/20 at 1041, Until Discontinued lidocaine 20 mg/mL (2 %) injection 1 dose, Starting Fri11/22/20 at 1041, Until Discontinued midazolam (PF) (VERSED) 1 mg/mL injection 1 dose, Starting Fri11/22/20 at 1041, Until Discontinued nitroglycerin 100 mcg/mL syringe 1 dose, Starting Fri11/22/20 at 1041, Until Discontinued verapamil (ISOPTIN) 2.5 mg/mL injection 1 dose, Starting Fri11/22/20 at 1041, Until Discontinued documented in this encounter Orders Medications Ordered That Might Not Have Count Last Ord ered Date First Ordered Date Been Administered fentaNYL citrate (PF) 50 mcg/mL injection 1 2020 heparin 1,000 unit/mL injection 1 11/22/2020 lidocaine (PF) 10 mg/mL (1 %) injection 2 1 2020 mg lidocaine 20 mg/mL (2 %) injection 1 11/22/2020 midazolam (PF) (VERSED) 1 mg/mL injection 1 2020 nitroglycerin 100 mcg/mL syringe 1 11/22/2020 sodium chloride 0.9 % (NS) infusion 1 11/22/2020 verapamil (ISOPTIN) 2.5 mg/mL injection 1 11/23/19 21 Procedures Count Last Ordered Date First Ordered Date ECG REPORT - SCANNED 3 11/27/2020 11/24/2020 Nursing Count Last Ordered Date First Ordered Date PATIENT AT LOW RISK FOR VTE: RISK OF 1 11/22/2020 MECHANICAL PROPHYLAXIS OUTWEIGHS PATIENT AT LOW RISK FOR VTE: RISK OF 1 11/22/2020 PHARMACOLOGIC PROPHYLAXIS OUTWEIG Discharge Count Last Ordered Date First Ordered Date DISCHARGE PATIENT 1 11/22/2020 documented in this encounter Care Teams Head Up Operator Helper Relationship Specialty Start Date End Date Layne Cai MD PCP - General 04/05/20 [address] [place] [phone] Claire Lopez NP Cardiovascular Disease 11/22/[address] [place] [address] [phone] documented as of this encounter
--- OUTSIDE RECORDS SUMMARY | 2021-12-21 01:20 | XMS_ITS | Encounter Summary ---
:1945 Author Organization [facility] Address [address] [place] [address] Care Team Providers Name Role Phone Layne Cai MD Primary Care Provider Claire Lopez NP Unavailable Tod Perez DUST MOP MAKER Unavailable Encounter Details Date Type Department Care Team Description 01/01/2021 Telephone [facility] Juanjose Perez NP Rheumatology & Immunology - [address] [facility], [address], [address] [place], [place] [id number] [place] [phone] (Wo rk) Social History Tobacco Use [...] Hematology and Erin Barillas M D Oncology [address] [place] [phone] (Wo rk) 02/14/2022 Office Visit Hematology and Erin Barillas M D Oncology [address] [place] [phone] (Wo rk) 04/25/2022 Ancillary Procedure Cardiology 04/25/2022 Office Visit Cardiology Claire Lopez NP [address] [place] [phone] (Wo rk) 05/13/2022 Office Visit Rheumatology Tod Perez NP [address] [phone] (Wo rk) documented as of this encounter Visit Diagnoses Not on filedocumented in this encounter Additional Health Concerns Infection Onset Date Last Indicated Resolved Time R/O COVID-19 12/28/2020 12/28/2020 01/02/2021 22:15 EDT documented as of this encounter Care Teams Steak Tenderizer Machine Relationship Specialty Start Date End Date Layne Cai MD PCP - General 04/05/[address] [place] [phone] Claire Lopez NP Cardiovascular Disease 11/22/[address] [phone] Tod Perez NP Rheumatology 12/28/[address] [place] [address], [facility] [address] [place] [phone] documented as of this encounter
--- OUTSIDE RECORDS SUMMARY | 2021-12-21 01:20 | XMS_ITS | Encounter Summary ---
:1945 Author Organization [facility] Address [address] [place] [address] Care Team Providers Name Role Phone Layne Cai MD Primary Care Provider Claire Lopez NETWORK DESIGNER Unavailable Reason for Visit Auth/Cert Specialty Diagnoses / Procedures Referred By Contact Refer red To Contact Diagnoses Exertional chest pain Exertional chest pain [R07.9] Cupid, Invasive Cardiolo gist Referral ID Status Reason Start Date Expiration Date Visits Requ ested Visits Authorized [id number] 11/09/2020 1 1 Encounter Details Date Type Department Care Team Description 11/22/2020 [facility] Jose Joseph Exert ional chest Encounter Cardiovascular Unit MD Grace pain 111 [facility] [address] [place] [address] Avenue [phone] [facility] [address] [place] [address] Social History Tobacco Use Types Packs/Day Years [...] Sign Reading Time Taken Comments Blood Pressure 152/69 11/22/2020 1435 EDT Pulse - - Temperature 36.1 ??C (97 ??F) 11/22/2020 1435 EDT Respiratory Rate 16 11/22/2020 1435 EDT Oxygen Saturation 97% 11/22/2020 1435 EDT Inhaled Oxygen - - Concentration Weight [...] performed by Dr Joseph . Phone # [phone] You have had a Cardiovascular Catheterization performed [...] or Self Halfway documented in this encounter Progress Notes Jeannette [...] stretcher independently. Patient greeted and identified per [facility] policy. Allergies and procedure verified & patient [...] chest pain. ? Myocardial bridging Local [facility] - [address] [address] Cardiac History: Stress Test? No Reason for [...] instructed to register on the 3rd floor [facility]. Transportation Issues: No Patient/family instructed that they will need a designated team truck driver if they are discharged on the day of the procedure. Medications: Medication list: Patient/family instructed to bring medication list with them on the day of the procedure. Anticoagulants/Antiplatelets: Takes Aspirin 81 mg daily Anti-Anginal meds: B-Blockers and Long acting Nitrates LIN FLORES RN arkLin Montejo RN - 11/15/2020 1214 EDT Images from the original note were not included. [facility] Cardiology Services [address] [place] [id number] Octavio Dacosta, Here is important information regarding your upcoming Cardiac [...] go home you will need a designated team truck driver, or a responsible adult to accompany [...] or you may prefer to have your team truck driver drop you off at the front [...] waiting room. Please check in with the nuclear control room operator and they will notify of your arrival. [...] call anyone listed below with questions. Cath Singing Messenger ??? [phone] Advanced Testing Nurse- [phone] Priya Fitzgerald Patients & Visitors Information [email or web address] documented in this encounter H&P Notes Deon Azevedo MD - 11/22/2020 1056 EDT CARDIOLOGY ADMISSION H&P Admit Date: 11/22/2020 PCP: Layne Cai Chief Complaint: SOB and PENDLETON HPI: Deon Villanueva is a 75 y.o. male with a PMHx significant for CAD, HTN, HLD, SSS (s/p PPM), inflammatory polyarthropathy (on MTX), benign neoplasm of the colon, PV, CKD 3, and BPH presenting for [facility]. Patient follows with Dr. Chawla with noted generator change 06/27/2020 and follow-up for complaints of exertional CP, S OB, diaphoresis. Symptoms noted over the past few months occurring both at rest and with exertion. Underwent nuclear stress test at [facility] which had been reportedly normal. ROS: Full 10 point system obtained; negative unless indicated in the HPI Relevant prior Cardiac Studies: [facility]: 04/08/2012: Left Main Artery: The left main [...] WBC/Hgb/Hct/Plts: 7.59/13.9/43.7/315 (11/22 1014) PT/INR/PTT: 12.4/1.1/-- (11/22 1014) BMP: Recent Labs 11/22/20 1014 NA 143 K 4.8 CL 106 CO2 25 BUN 22 CREATININE 1.07 Assessment/Plan: 75 y.o. male with a history of CAD, HTN, HLD, SSS (s/p PPM), inflammatory polyarthropathy (on MTX), benign neoplasm of the colon, PV, CKD 3, and BPH presenting for [facility]. Plan: Left heart catheterization to evaluate coronary [...] and/or intervention to the patient (or responsible green party) and have answered the patient's (or responsible green party's) questions. To the best of my knowledge, the patient (or responsible green party) has been adequately informed. The patient (or responsible green party) has consented to the interventional cardiac procedure. As part of the consent we reviewed that, like surgical procedures, interventional procedures require aggressive short term support to determine the potential benefits of the procedures. For this reason, the patient (or responsible green party) has agreed to remain FULL CODE [...] this patient. Please feel free to contact [facility] if you have any questions or [...] artery Procedure: He was brought to [facility] Cardiac Catheterization Laboratory for the procedure: [...] 4 weeks Jose Joseph Jr., MD PagerNumber: [phone] 11/22/2020 11:34 documented in this encounter Plan of Treatment Upcoming Encounters Date Type Specialty Care Team Description 12/27/2021 Office Visit Hematology and Erin Barillas M D Oncology [address] [phone] (Joi diallo) 02/14/2022 Office Visit Hematology and Erin Barillas M D Oncology [address] [phone] (Joi diallo) 04/25/2022 Ancillary Procedure Cardiology 04/25/2022 Office Visit Cardiology Claire Lopez NP 130 [facility] [address] [place] [phone] (Joi rk) 05/13/2022 Office Visit Rheumatology Tod Perez NP 111 [facility], [facility] [address] [place] [phone] (Joi rk) documented as of this encounter Procedures [...] CORONARY ANGIOGRAM (11/22/2020 11:38 EDT) Specimen Narrative [facility] CARDIOLOGY MAIN CAM[place] S - 11/28/2020 12:28 EDT Cardiology [address] [place] [address] Catheterization Laboratory Study Patient: Deon Villanueva ? Study Date: ? 11/22/2020 ? Accession #: ?[id number] : ? 1945 Referring: Claire Lopez Aprn Diagnostic Attending: ?Jose Bernal Interventional Attending: ?Glendy Clayton Interventional Fellow: Deon Azevedo ATTESTATION: Dr. Deon [...] with ?? chlorhexidine and draped in the ua errol sterile manner. 3. Local anesthesia. Using 2% [...] Right radial artery access. A 6FR/.02 1 [place] Slender sheath ?? was advanced into [...] Jose Joseph Jr., MD - 12/04/[address] [place] [address] Catheterization Laboratory Study Patient: Deon Villanueva Study Date: : 1945 Referring: Claire Lopez Aprn Diagnostic Attending: Jose Joseph Interventional Attending: Jose Joseph Interventional Fellow: Deon Azevedo ATTESTATION: I, Dr. Deon Flores was the initial a uthor of this [...] 5 FR Ja cky catheter was successfully advanced across the aortic valve to the left ventricle under fluoroscopic guidance. Resting hemodyna mics were obtained. Post-ventriculography LV pressure was o btained. The catheter was gradually withdrawn into the aorta with continuous pressure recording. 5. Right radial artery access. A 6FR/.02 1 [place] Slender sheath was advanced into the [...] Jr., MD 2020-12-04 11:01 Performing Organization Address City/State/ZIP Code Phon e Number [facility] CARDIOLOGY MAIN CAMPUS PROTIME (11/22/2020 10:14 EDT) Pathologist Sig nature I.N.R. 1.1 0.9 - 1.1 Ratio [facility] LABORA TORY SERVICES Pro Time 12.4 10.4 - 12.6 secs [facility] LABOR ATORY SERVICES Specimen Blood - Venous blood (substance) Narrative [facility] LABORATORY SERVICES - 11/22/2020 10:38 EDT Moderate Intensity Coumadin INR = 2.0-3.0 Adjustments in anticoagulant therapy dos e should be based on the INR and NOT on the Protime. Performing Organization Address City/[facility]/ZIP Code Phon e Number [facility] LABORATORY [address] [place] [address] SERVICES (ABNORMAL) COMPLETE BLOOD COUNT (11/22/2020 10:14 EDT) Pathologist Sig nature WBC 7.59 4.00 - 10.40 K/cmm [facility] LABORATORY SERVICES RBC 4.86 4.36 - 5.78 M/cmm [facility] LABORATORY SERVICES Hemoglobin 13.9 13.8 - 17.3 gm/dL [facility] LABORATORY SERVICES HCT 43.7 39.5 - 50.2 % [facility] LABORATORY SERVICES MCV 90 81 - 95 fl [facility] LABORATORY SERVICES MCH 28.6 27.6 - 33.0 pg [facility] LABORATORY SERVICES MCHC 31.8 (L) 32.8 - 36.4 gm/dL [facility] LABORATORY SERVICES RDW-CV 18.4 (H) <14.2 % [facility] LABORATORY SERVICES RDW-SD 58.2 (H) <46.0 fl [facility] LABORATORY SERVICES PLT 315 141 - 377 K/cmm [facility] LABORATORY SERVICES MPV 11.8 9.5 - 12.7 fl [facility] LABORATORY SERVICES Specimen Blood - Venous blood (substance) Performing Organization Address City/State/ZIP Code Phon e Number [facility] LABORATORY [address] [place] [address] SERVICES ELECTROLYTES (11/22/2020 10:14 EDT) Pathologist Sig nature Sodium 143 136 - 145 mEq/L [facility] LABORA TORY SERVICES Potassium 4.8 3.5 - 5.0 mEq/L [facility] LABORA TORY SERVICES Chloride 106 96 - 110 mEq/L [facility] LABORAT ORY SERVICES CO2 Total 25 22 - 32 mEq/L [facility] Specimen Blood - Venous blood (substance) Performing Organization Address [facility]/ZIP Code Phon e Number [facility] LABORATORY [address] [place] [phone] SERVICES CREATININE (11/22/2020 10:14 EDT) Creatinine 1.07 0.66 - 1.25 [facility] mg/dL LABORATORY SERVICES eGFR 67Comment: eGFR >60 [facility] calculated using mL/min/1.73m2 LABORATORY SERVICES CKD-EPI equation for non- Americans. Multiply eGFR by 1.16 for patients. Specimen Blood - Venous blood (substance) Performing Organization Address City/[facility]/ZIP Code Phon e Number [facility] LABORATORY [address] [place] [phone] SERVICES BUN (11/22/2020 10:14 EDT) Pathologist Sig nature BUN 22 10 - 26 mg/dL [facility] Specimen Blood - Venous blood (substance) Performing Organization Address City/[facility]/ZIP Code Phon e Number [facility] LABORATORY [address] [place] [address] SERVICES EKG 12-LEAD (11/22/2020 10:03 EDT) Specimen Narrative [facility] EKG - 11/23/2020 16:2 7 EDT ? [facility] ? Test Date: ?2020-11-22 Pat Name: ? DEON VILLANUEVA ?Department: ?? CVU ? Room: ? CL Gender: ? Male ? Tearoom Hostess: ?? [id number] : ?1945 ? Requested By: BARRY CHAVES Order Number: [id number] ? Reading MD: ?? SCARLETT JIN MD ? Measurements Intervals ?[place] ? Rate: ? 62 ? P: ?261 MD: ? 239 ?QRS: ?53 QRSD: ? 92 ? T: ?59 QT: ? 442 ? QTc: ?451 ? Interpretive Statements ELECTRONIC ATRIAL PACEMAKER ABNORMAL RHYTHM ECG I reviewed the tracing and have either a greed or edited the findings in this report. Electronically Signed On 11-24-19 21 16:27:49 EDT by SCARLETT JIN MD. Procedure Note Scarlett Jin MD - 11/23/2020 [facility] Test Date: 2020-11-22 Pat Name: DEON VILLANUEVA Department: CVU Room: Gender: Male Tearoom Hostess: [id number] : 1945 Requested By: BARRY GAMA Order Number: [id number] Reading MD: Boom JIN MD Measurements Intervals [place] Rate: 62 P: 261 MD: 239 QRS: 53 QRSD: 92 T: 59 QT: 442 QTc: 451 Interpretive Statements ELECTRONIC ATRIAL PACEMAKER ABNORMAL RHYTHM ECG I reviewed the tracing and have either a greed or edited the findings in this report. Electronically Signed On 11-24-19 16:27:49 EDT by SCARLETT JIN MD. Performing Organization Address City/State/ZIP Code Phon e Number [facility] EKG documented in this encounter Visit Diagnoses [...] Fri11/22/20 at 1041, Until Fri at 1733 heparin 1,000 unit/mL injection 1 dose, Starting on Fri11/22/20 at 1041, Until Fri at 1733 lidocaine 20 mg/mL (2 %) injection 1 dose, Starting on Fri11/22/20 at 1041, Until Fri at 1733 midazolam (PF) (VERSED) 1 mg/mL injectio n 1 dose, Starting on Fri11/22/20 at 1041, Until Fri at 1733 nitroglycerin 100 mcg/mL syringe 1 dose, Starting [...] Routine, Intraprocedure midazolam (PF) (VERSED) injection (CANCELED) 1112 (Given - Provider: Ladonna Couch RN) PRN, Starting Fri11/22/20 at 1112, Until Fri11/22/20 at 1138, Routine, Intraprocedure No Frequency Medication Order 11/20/2020 11/21/2020 11/22/2020 fentaNYL citrate (PF) 50 mcg/mL injection 1 dose, Starting Fri11/22/20 at 1041, Until Discontinued heparin 1,000 unit/mL injection 1 dose, Starting Fri11/22/20 at 1041, Until Discontinued lidocaine 20 mg/mL (2 %) injection 1 dose, Starting 11/22/20 at 1041, Until Discontinued midazolam (PF) (VERSED) 1 mg/mL injection 1 dose, Starting 11/22/20 at 1041, Until Discontinued nitroglycerin 100 mcg/mL syringe 1 dose, Starting 11/22/20 at 1041, Until Discontinued verapamil (ISOPTIN) 2.5 mg/mL injection 1 dose, Starting 11/22/20 at 1041, Until Discontinued documented in this encounter Orders Medications Ordered That Might Not Have Count Last Ord ered Date First Ordered Date Been Administered fentaNYL citrate (PF) 50 mcg/mL injection 1 2020 fentaNYL citrate (PF) injection 1 11/22/2020 heparin 1,000 unit/mL injection 1 11/22/2020 iopamidoL (ISOVUE-370) injection 1 11/22/2020 lidocaine (PF) 10 mg/mL (1 %) injection 2 1 2020 mg lidocaine 20 mg/mL (2 %) injection 1 11/22/2020 midazolam (PF) (VERSED) 1 mg/mL injection 1 2020 midazolam (PF) (VERSED) injection 1 11/22/2020 nitroglycerin 100 mcg/mL syringe 1 11/22/2020 sodium [...] 11/22/2020 documented in this encounter Care Teams School Psychologist Assistant Relationship Specialty Start Date End Date Layne Cai MD PCP - General 04/05/[address] [place] [phone] Claire Lopez NP Cardiovascular Disease 11/22/20 [address] [facility] [place] [address] documented as of this encounter
--- OUTSIDE RECORDS SUMMARY | 2021-12-21 01:20 | XMS_ITS | Encounter Summary ---
:1945 Author Organization [facility] Address [address] [place] [address] Care Team Providers Name Role Phone Layne Cai MD Primary Care Provider Reason for Visit Reason Onset Date Comments COVID-19 11/15/2020 testing Returning Call 11/15/2020 Encounter Details Date Type Department Care Team Description 11/15/2020 Telephone [facility] - Redi Brown , COVID-19 (testing); DANDRE SHOEMAKER MD Returning Call [address] [place] [address] (Wo rk) Social History Tobacco [...] this encounter Miscellaneous Notes Telephone Encounter - Cheyenne Pringle - 11/15/2020 1407 EDT We no longer do Covid testing here. Please call your patient and give them instructions and lab hours per the new algorythm. elephone Encounter - Nikole Guan - 11/15/2020 1320 EDT Per Augustina, , patient would like to have testing done on 6.6 Friday for 6.9 Friday procedure in [place]. Please call to schedule. elephone Encounter - Concepcion Woods - 11/15/2020 1306 EDT Called patient to schedule COVID-19 testing. Requested a call back @[phone]. This is our first attempt at contacting patient. documented in this encounter Plan of Treatment Upcoming Encounters Date Type Specialty Care Team Description 12/27/2021 Office Visit Hematology and Erin Barillas M D Oncology [address] [phone] (Joi diallo) 02/14/2022 Office Visit Hematology and Erin Barillas M D Oncology [address] [phone] (Joi diallo) 04/25/2022 Ancillary Procedure Cardiology 04/25/2022 Office Visit Cardiology Claire Lopez , FESTUS 130 [facility] [place] [address] (Wo rk) 05/13/2022 Office Visit Rheumatology Tod Perez, SAFETY LEAD 111 [facility], [facility] [address] [place] [address] (Wo rk) documented as of this encounter Visit Diagnoses Not on filedocumented in this encounter Care Teams Sales Account Executive Relationship Specialty Start Date End Date Layne Cai MD PCP - General 04/05/20 [address] [place] [phone] documented as of this encounter
--- OUTSIDE RECORDS SUMMARY | 2021-12-21 01:21 | XMS_ITS | Encounter Summary ---
:1945 Author Organization [facility] Address [address] [place] [address] Care Team Providers Name Role Phone Layne Cai MD Primary Care Provider Reason for Visit Reason Comments Pacemaker/Device Check Medtronic Encounter Details Date Type Department Care Team Description 05/19/2020 Office Visit [facility] Jessica, Pacemaker (Primary Dx); - [facility] Cardiology FESTUS Rangel Sick sinus syndrome (HCC-CMS); Clinic [address] [facility] Essential hypertension; [address] [place] [address] [place] [phone] Social History Tobacco Use Types Packs/Day [...] Reading Time Taken Comments Blood Pressure 140/78 05/19/2020 1417 EST Pulse 62 05/19/2020 1417 EST Temperature - - Respiratory Rate - - Oxygen Saturation 95% 05/19/2020 1417 EST Inhaled Oxygen Concentration - - Weight 103.2 kg (227 lb 8 oz) 05/19/2020 1417 EST Height 180.3 cm (5' 11) 05/19/2020 1417 EST Body Mass Index 31.73 05/19/2020 1417 EST documented in this encounter Functional Status Functional Status Response Date of Assessment Because of a physical, mental, or emotional condition, Yes 09/23/2019 does this person have difficulty doing errands alone such as visiting a doctor's office or shopping? Cognitive Status Response Date of Assessment Because of a physical, mental, or emotional condition, No 11/24/2017 does this person have serious difficulty concentrating, remembering, or making decisions? documented as of this encounter Progress Notes Claire Lopez APRN - 05/19/2020 1415 EST Cardiology Clinic Note 05/19/20 14:25 Presenting complaint: Pacemaker/Device Check (Medtronic) CHASITY Dacosta is a pleasant 74 yo with multiple medical co-morbidities including inflammatory polyarthropathytreated with methotrexate, hx benign neoplasm of the colon, polycythemia vera, GERD, BPH, stage III CKD, HLD, NATALIE, HTN, sinus node dysfunction s/p single chamber pacemaker who returns to the office forroutine device interrogation. Overall he reports feeling well from a cardiac perspective. Has no specific complaints or concerns to offer. His dialysis clinical manager and clothes marker have gotten his arthritis and polycythemia under control and he is back to being busy outside splitting and cutting [employer] Systems review A 10 point review of [...] 6 hours as needed for Pain. ??? methotrexate 2.5 mg tablet Take 9 Tabs by mouth once a week. 16 Tab 1 ??? metoprolol XL (TOPROL-XL) 25 [...] Cigarettes, Cigars Quit date: 09/15/1980 Years since quittin.7 ??? Smokeless tobacco: Never Used ? ? 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 General - A/Ox3, no acute distress -pleasant, cooperative -WD, WN HEENT -NC/AT - PERRL - oropharynx clear, moist mucous membranes -no carotid bruit Chest - Chest expansion symmetrical, respirations unlabored - Lungs CTA throughout all lung hussein - no adventitious breath sounds CVS - regular rate and rhythm - S1, S2 - no murmur Abdomen - soft and non-tender - no masses - bowel sounds present Extremities - no edema, distal pulses present, no clubbing Skin - intact Peripheral neurology - no focal deficits [facility] Cardiology Device Visit Hand Lacer: Medtronic Device Type: Single chamber pacemaker Service: Office Visit Implant Date: 04/09/2012 Indication: Bradycardia Battery Longevity: 6 months (< 1-15 months) Underlying rhythm: bradycardia, SND Mode: AAIR URL/LRL: 130/60 bpm Atrial Paced: 96% Lead Impedance, threshold, and sensing testing all within normal parameters. (See scanned documentation associated with this visit for full details) There were: no alerts AMS: none AF burden: none AT/AF: Patient is taking daily N/A Impression: The leads and device are functioning normally. The patient will follow up In office in 6months. Device program evaluation with iterative adjustments were made to test device function and select optimal permanent program values with analysis, review, and report. Generator approaching ADE[place]YO, e levated battery impedance. 96% AP, no underlying rhythm LABS Lab Results Component Value Date WBC 8.98 12/06/2019 HGB 17.8 (H) 12/06/2019 HCT 58.4 (H) 12/06/2019 MCV 84 12/06/2019 PLT 551 (H) 12/06/2019 Lab Results Component Value Date CREATININE 1.09 12/06/2019 CREATININEEX 1.19 05/01/2020 Lab Results Component Value Date NA 138 12/06/2019 K 4.9 12/06/2019 KEXT 4.3 05/01/2020 CL 102 12/06/2019 CLEXT 105 05/01/2020 CO2 30 12/06/2019 CO2EXT 26.2 05/01/2020 Lab Results Component Value Date TSH 0.38 09/15/2013 Lab Results Component Value Date HGBA1C 6.0 04/08/2012 Lab Results Component Value Date CHOL 111 04/08/2012 HDL 22 04/08/2012 LDLBASE 66 04/08/2012 TRIG 117 04/08/2012 CHOLHDL 5.0 04/08/2012 1. Pacemaker Device functioning normally. Generator at ADEBAYO. 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 12 lead EKG, BMP, CBC and CXR today in preparation for generator change. Will try to arrange wound check to be performed by PCP at [facility]. 2. Sick sinus syndrome (HCC-CMS) S/p single chamber pacemaker. 3. Essential hypertension Slightly hypertensive today in the office. Managed by PCP. If he remains hypertensive would recommend adding an ACEI or ARB. Reinforced lifestyle modification through diet, limiting sodium intake, regular activity and maintaining a healthy weight. 4. Hypercholesteremia Continue statin. Reinforced lifestyle modification through diet, limiting sodium intake, regular activity and maintaining a healthy weight. Claire Lopez NP [facility] Cardiology Face to face time spent with patient 25 minutes, > 50% in counseling and education regarding multiple medical co-morbidities and discussion regarding plan of care documented in this encounter Plan of Treatment Upcoming Encounters Date Type Specialty Care Team Description 12/27/2021 Office Visit Hematology and Erin Barillas M D Oncology [address] [place] [address] [address] [place] [address] (Wo rk) 02/14/2022 Office Visit Hematology and Erin Barillas M D Oncology 111 [facility], [facility], [facility] [address] [place] [address] (Wo rk) 04/25/2022 Ancillary Procedure Cardiology 04/25/2022 Office Visit Cardiology Claire Lopez NP 130 [facility] [address] [place] [address] (Wo rk) 05/13/2022 Office Visit Rheumatology Tod Perez NP 111 [facility], [address] [place] [address] (Wo rk) documented as of this encounter Procedures Procedure Name Priority Date/Time Associated Comments Diagnosis XR CHEST 2 VIEWS 05/19/2020 16:15 Results for this EST procedure are i n the results section. COMPLETE BLOOD COUNT Routine 05/19/2020 15:25 Pacemaker Res ults for this WITH DIFFERENTIAL EST procedure are in (AUTO) the results section. BASIC METABOLIC PANEL Routine 05/19/2020 15:25 Pacemaker Re sults for this (BMP) EST procedure are i n the results section. EKG 12-LEAD 05/19/2020 14:35 Results for this EST procedure are i n the results section. documented in this encounter Results XR CHEST 2 VIEWS (05/19/2020 16:15 EST) Specimen Narrative [facility] - 05/19/2020 16:15 EST ? EXAM: RADIOLOGY/CHEST PA ?? LAT ?EX. D/ (1542) ? CLINICAL INFORMATION: ? Z95.0 PACEMAKER PLACEMENT PRIOR T O GENERATOR ? CHANGE ? INDICATION: Z95.[address] MENT PRIOR TO GENERATOR, CHANGE. ? COMPARISON: None. ? TECHNIQUE: 2 views of the chest w ere obtained. ? FINDINGS: ? A single lead cardiac pacer is pr esent with the lead tip superimposed ? over the right atrium. The cardio mediastinal silhouette and pulmonary ? vasculature are within normal ipke its. The lungs are clear. No pleural ? effusion or pneumothorax. Degener ative changes of aging throughout ? the thoracic spine. ? IMPRESSION: ? 1. Osteopenia. ? 2. Single lead cardiac pacer with lead tip superimposed over the ? right atrium. ? REPORT SIGNED IN OTHER VENDOR SYSTEM 05/19/2020 ?Reported B y: Dustin Ibrahim MD ? CC: ? Transcribed Date/Time: 05/19/2020 (1615) ? Antichecking Iron Worker: SCR ? Printed Date/Time: 05/19/2020 (16 15) ? PAGE 1 ? Ar[place]ia d Report ? Procedure Note Dustin Ibrahim MD - 0 EXAM: RADIOLOGY/CHEST PA LAT EX. D/T: 1 07/20/2019 (1542) CLINICAL INFORMATION: Z95.0 PACEMAKER PLACEMENT PRIOR TO GENE RATOR CHANGE INDICATION: Z95.0 PACEMAKER PLACEMENT P RIOR TO GENERATOR, CHANGE. COMPARISON: None. TECHNIQUE: 2 views of the chest were ob tained. FINDINGS: A single lead cardiac pacer is present with the lead tip superimposed over the right atrium. The cardiomedias tinal silhouette and pulmonary vasculature are within normal limits. T he lungs are clear. No pleural effusion or pneumothorax. Degenerative changes of aging throughout the thoracic spine. IMPRESSION: 1. Osteopenia. 2. Single lead cardiac pacer with lead tip superimposed over the right atrium. REPORT SIGNED IN OTHER VENDOR SYSTEM 05/19/2020 Reported By: Dustin Ibrahim MD CC: Transcribed Date/Time: 05/19/2020 (1614 ) Antichecking Iron Worker: Printed Date/Time: 05/19/2020 (792) PAGE 1 Signed Report Performing Organization Address City/[facility]/ZIP Code Phon e Number [facility] (ABNORMAL) BASIC METABOLIC PANEL (BMP) (05/19/2020 15:25 EST) BUN - [facility] 20 10 - 26 mg/dL [facility] CALCIUM - [facility] 9.6 8.5 - 10.5 [facility] mg/dL [facility] Chloride 102 96 - 110 [facility] mmol/L [facility] CO2 Total 28 21 - 32 mEq/L [facility] CREATININE 1.06 0.66 - 1.25 [facility] mg/dL [facility] eGFR >60 [facility] Comment: [facility] Chronic renal impairment is defined as GFR <60 Multiply result by 1.210 for patients . Anion Gap 8 0 - 18 [facility] GLUCOSE - [facility] 105 (H) 70 - 100 mg/dL [facility] Potassium 4.5 3.5 - 5.0 [facility] mEq/L [facility] Sodium 138 136 - 145 [facility] mEq/L [facility] Specimen Narrative [facility] - 020 16:10 EST Does PT Have a Latex Allergy? NO Performing Organization Address City/[facility]/ZIP Code Phon e Number [facility] [address] [place] [address] (ABNORMAL) COMPLETE BLOOD COUNT WITH DIFFERENTIAL (AUTO) (05/19/2020 15:25 EST) Pathologist Sig nature ABSOLUTE NEUTROPHIL 4.9 2.2 - 8.85 [facility] COUN - [facility] 10e3/uL [facility] BASO # - [facility] 0.07 0.01 - 0.11 [facility] 10e/uL [facility] BASO % - CV 1 0 - 2 % [facility] EOS # - [facility] 0.16 0.03 - 0.61 [facility] 10e3/ul [facility] EOS % - [facility] 2 0 - 5 % [facility] GRAN % - CV 68.5 40 - 80 % [facility] HEMATOCRIT - [facility] 46.2 39.5 - 50.2 % [facility] HEMOGLOBIN - [facility] 14.3 13.8 - 17.3 [facility] g/dl [place] [facility] IG# - [facility] 0.05 0 - 0.7 10e3/uL [facility] IG% - [facility] 0.7 0 - 0.9 % [facility] LYMPH # - [facility] 1.3 1.09 - 3.3 [facility] 10e3/ul [place] [facility] LYMPH% - [facility] 17.8 (L) 20 - 40 % [facility] MEAN CORPUSCULAR HGB 30.2 27.6 - 33.0 pg [facility] ME D - [facility]ENTER LAB MEAN CORPUSCULAR HGB 31.0 (L) 32.8 - 36.4 [facility] CONC - [facility] g/dL CENTER [facility] MEAN CELL VOLUME - 97.5 (H) 81 - 95 fl [facility] MONO # - [facility] 0.7 0.1 - 0.8 [facility] 10e3/uL [place] [facility] MONO% - [facility] 9.8 0 - 12 % [facility] PLATELET COUNT 243 141 - 377 [facility] 10e3/ul [place] [facility] RED BLOOD COUNT - 4.74 4.36 - 5.78 [facility] 10e3/ul [place] [facility] RED CELL DISTRI WIDTH 15.1 <14.2 % [facility] WHITE BLOOD COUNT - 7.2 4.0 - 10.4 [facility] 10e3/ul [place] [facility] Specimen Narrative [facility] - 020 15:54 EST Does PT Have a Latex Allergy? NO Performing Organization Address City/State/ZIP Code Phon e Number [facility] [address] [place] [address] EKG 12-LEAD (05/19/2020 14:35 EST) Specimen Narrative [facility] - 020 14:35 EST ? [facility] Cardiology ? Test Date: ?2020-05-19 14:35:38 Pat Name: ? DEON VILLANUEVA ?Department: ?Room: ? Gender: ? M ?Gaggerman: ?? ES : ?1945 ? Requested By: Order Number: ?Reading MD: ?? Clayton Lischke, MD ? Measurements Intervals ?[place] ? Rate: ? 61 ? P: ? [place]: ? 234 ?QRS: ?36 QRSD: ? 90 ? T: ?51 QT: ? 438 ? QTc: ?440 ? Interpretive Statements Atrial-paced rhythm with prolonged AV co nduction Abnormal ECG No previous ECG available for comparison Electronically Signed On 05-19-2020 15:02 :25 EST by Clayton Torres MD [email or web address] Procedure Note Clayton Torres MD - 05/19/2020 [facility] Cardiology Test Date: 2020-05-19 14:35:38 Pat Name: DEON VILLANUEVA Department: Room: Gender: M Gaggerman: ROSANGELA : 1945 Requested By: Order Number: Reading MD: Clayton Torres MD Measurements Intervals [place] Rate: 61 P: [place]: 234 QRS: 36 QRSD: 90 T: 51 QT: 438 QTc: 440 Interpretive Statements Atrial-paced rhythm with prolonged AV co nduction Abnormal ECG No previous ECG available for comparison Electronically Signed On 05-19-2020 15:02 :25 EST by Clayton Torres MD [email or web address] Performing Organization Address City/State/ZIP Code Phon e Number [facility] [address] [place] [address] documented in this encounter Visit Diagnoses Diagnosis Pacemaker - Primary Cardiac pacemaker in situ Sick sinus syndrome (HCC-CMS) (HCC) Sinoatrial node dysfunction Essential hypertension Unspecified essential hypertension Hypercholesteremia Pure hypercholesterolemia documented in this encounter Care Teams Business Continuity Planner Relationship Specialty Start Date End Date Layne Cai MD PCP - General 04/05/[address] [place] [phone] documented as of this encounter
--- OUTSIDE RECORDS SUMMARY | 2021-12-21 01:21 | XMS_ITS | Encounter Summary ---
:1945 Author Organization [facility] Address [address] [place] [address] Care Team Providers Name Role Phone Layne Cai MD Primary Care Provider Encounter Details Date Type Department Care Team Description 04/12/2020 Hospital Encounter [facility] [address] [place], [place] [address] Social History Tobacco Use Types Packs/Day Years [...] been in contact with No / Unsure 04/07/2020 12:30 EDT someone who was confirmed or suspected [...] omeprazole (PRILOSEC) 40 0 04/28/2019 mg capsule folic acid (FOLVITE) 1 mg Take 1 Tab by mouth 90 Tab 3 0 09/23/2019 2020 tabletIndications: daily. Inflammation around joint, Encounter for long-term (current) use of medications hydroxyurea (HYDREA) 500 Take 500 mg by 0 05/15/2020 mg capsuleIndications: mouth daily. polycythemia vera ibuprofen (MOTRIN) 200 mg Take 200 mg by 0 12/15/2020 tablet mouth every 6 hours as needed for Pain. methotrexate 2.5 mg Take 9 Tabs by 16 Tab 1 04/10/2020 1 07/30/2019 tabletIndications: mouth once a week. Inflammation around joint, Encounter for long-term (current) use of medications simvastatin (ZOCOR) 40 mg Take 40 mg by mouth 0 11/09/2020 tablet every evening. documented as of this encounter Discharge Disposition Disposition Code Departure Means Destination Home or Self Alf documented in this encounter Plan of Treatment Upcoming Encounters Date Type Specialty Care Team Description 12/27/2021 Office Visit Hematology and Erin Barillas M D Oncology [address] [phone] (Joi rk) 02/14/2022 Office Visit Hematology and Erin Barillas M D Oncology [address] [phone] (Joi rk) 04/25/2022 Ancillary Procedure Cardiology 04/25/2022 Office Visit Cardiology Claire Lopez , FESTUS 130 [facility] [address] [place] [phone] (Wo rk) 05/13/2022 Office Visit Rheumatology Tod Perez NP 111 [facility], [address] [place] [address] (Wo rk) documented as of this encounter Visit Diagnoses Not on filedocumented in this encounter Care Teams Size Painter Relationship Specialty Start Date End Date Layne Cai MD PCP - General 04/05/[address] [place] [phone] documented as of this encounter
--- OUTSIDE RECORDS SUMMARY | 2021-12-21 01:21 | XMS_ITS | Encounter Summary ---
:1945 Author Organization [facility] Address [address] [place] [address] Care Team Providers Name Role Phone Layne Cai MD Primary Care Provider Reason for Visit Reason Onset Date Comments Results 09/05/2020 Encounter Details Date Type Department Care Team Description 09/05/2020 Telephone [facility] Erin Barillas MD Results Hematology & Oncology - 111 [facility], [address], [address] [place], [place] [address] [place] [phone] (Wo rk) Social History Tobacco Use Types [...] Notes Telephone Encounter - Augustina Salazar - 09/05/2020 1517 EDT LABS ENTERED FROM [facility]. Augustina Salazar 09/05/2020 15:17 documented in this encounter Plan of Treatment Upcoming Encounters Date Type Specialty Care Team Description 12/27/2021 Office Visit Hematology and Erin Barillas M D Oncology [address] [place] [phone] (Wo rk) 02/14/2022 Office Visit Hematology and Erin Barillas M D Oncology [address] [phone] (Wo rk) 04/25/2022 Ancillary Procedure Cardiology 04/25/2022 Office Visit Cardiology Claire Lopez NP [address] [place] [phone] (Wo rk) 05/13/2022 Office Visit Rheumatology Tod Perez NP [address] [phone] (Wo rk) documented as of this encounter Procedures Procedure Name Priority Date/Time Associated Diagnosis Comme nts COMPREHENSIVE METABOLIC Routine 09/05/2020 Resu lts for this PANEL (ONCOLOGY USE procedur e are in the ONLY-INC MG) results section . COMPLETE BLOOD COUNT AND Routine 09/05/2020 Res ults for this DIFFERENTIAL procedure are i n the results section . documented in this encounter Results (ABNORMAL) COMPREHENSIVE METABOLIC PANEL (ONCOLOGY USE ONLY-INC MG) (09/05/2020) Pathologist Sig nature Calcium, External 9.2 [facility] CO2, External 30.0 [facility] AST, External 22 [facility] ALT, External 30 [facility] Bilirubin, Total, 0.6 [facility] Creatinine, External 1.1 [facility] Calculated Calcium, [facility] Anion Gap, External [facility] Total Protein, 7.1 [facility] Potassium, External 4.7 [facility] Total Alkaline 83 [facility] Phosphatase, [facility] AB Albumin, External 4.1 [facility] BUN, External 22 (A) 7 - 18 [facility] GFR, Calculated, 60 [facility] Fasting?, External [facility] Chloride, External 102 [facility] Glucose, Serum, 119 (A) 74 - 106 [facility] Sodium, External 140 [facility] Magnesium, External [facility] Specimen Blood - Venous blood (substance) Performing Organization Address City/State/ZIP Code Phon e Number [facility] (ABNORMAL) COMPLETE BLOOD COUNT AND DIFFERENTIAL (09/05/2020) Pathologist Sig nature WBC, External 5.98 [facility] RBC, External 4.81 [facility] Hemoglobin, External 14.6 [facility] HCT, External 46.6 [facility] MCV, External 96.9 (A) 80 - 95 [facility] MCH, External 30.4 [facility] MCHC, External 31.3 (A) 32.0 - 36.0 [facility] PLT, External 252 [facility] RDW-CV, External 18.2 (A) 11.8 - 14.1 [facility] Neutrophils, 70.5 [facility] Lymphocytes, 18.6 [facility] Monocytes, External 6.5 [facility] Eosinophils, 3.2 [facility] Basophils, External 0.7 [facility] ABS Neutrophils, 4.22 [facility] ABS Lymphs, External 1.11 (A) 1.2 - 3.4 [facility] ABS Monocytes, 0.39 [facility] ABS Eosinophils, 0.19 [facility] ABS Basophils, 0.04 [facility] Specimen Blood - Venous blood (substance) Performing Organization Address City/State/ZIP Code Phon e Number [facility] documented in this encounter Visit Diagnoses Not on filedocumented in this encounter Care Teams Hot Dog Vendor Relationship Specialty Start Date End Date Layne Cai MD PCP - General 04/05/20 [address] [place] [phone] documented as of this encounter
--- OUTSIDE RECORDS SUMMARY | 2021-12-21 01:21 | XMS_ITS | Encounter Summary ---
:1945 Author Organization [facility] Address [address] [place] [address] Care Team Providers Name Role Phone Layne Cai MD Primary Care Provider Encounter Details Date Type Department Care Team Description 10/23/2020 Orders Only [facility] - Sollace, Ryann, Sinus node dysfunction [facility] [place] ([facility]) (Primary Dx) [address] [place], [place] [id number] Social History Tobacco Use Types Packs/Day Years [...] and Erin Barillas M D Oncology 111 [facility] 2 [place] [address] (Wo rk) 02/14/2022 Office Visit Hematology and Erin Barillas M D Oncology 111 [facility] 2 [place] [address] (Wo rk) 04/25/2022 Ancillary Procedure Cardiology 04/25/2022 Office Visit Cardiology Claire Lopez NP 130 [facility] [address] [place] [phone] (Wo rk) 05/13/2022 Office Visit Rheumatology Tod Perez NP 111 [facility], [facility] 5 [place] [address] (Wo rk) documented as of this encounter Procedures Procedure Name Priority Date/Time Associated Diagnosis Comme nts CARDIAC IMPLANT Routine 10/24/2020 9:31 EDT Sinus node Resul ts for this CHECK - REMOTE dysfunction procedure are in MONITOR ([facility]) the results section. documented in this encounter Results CARDIAC IMPLANT CHECK - REMOTE - PACEMAKER (10/24/2020 9:31 EDT) Specimen Narrative [facility] POINT OF CARE - 10/24/2020 9:32 ED T I have reviewed the pacemaker interrogation. ??I agree with the findings. See scanned document for details of monico te download. Adrien Hackett APRN Procedure Note Adrien Hackett APRN - 10/24/2020 I have reviewed the pacemaker interrogat ion. I agree with the findings. See scanned document for details of remote download. Adrien Hackett APRN Performing Organization Address City/State/ZIP Code Phon e Number [facility] POINT OF CARE documented in this encounter Visit Diagnoses Diagnosis Sinus node dysfunction (HCC-CMS) (HCC) - Primary Sinoatrial node dysfunction documented in this encounter Care Teams Hot Die Press Feeder Relationship Specialty Start Date End Date Layne Cai MD PCP - General 04/05/20 [address] [place] [phone] documented as of this encounter
--- OUTSIDE RECORDS SUMMARY | 2021-12-21 01:21 | XMS_ITS | Encounter Summary ---
:1945 Author Organization [facility] Address [address] [place] [address] Care Team Providers Name Role Phone Layne Cai MD Primary Care Provider Reason for Visit Reason Onset Date Comments Pacemaker Problem 05/22/2020 Needs generator thomas ge Labs Only 05/22/2020 06/22/20 9:00am Encounter Details Date Type Department Care Team Description 05/22/[address] [facility] - Claire Lopez Pa cemaker Problem [facility] [place] [place] Cardiology Clin ic LABORATORY DIRECTOR (Needs generator [address] change); [place] [address] [address] (06/22/20 9:00am) [phone] [place] [address] Social History Tobacco Use Types Packs/Day Years [...] this encounter Miscellaneous Notes Telephone Encounter - Ruthie Cheung RN - 06/26/2020 1137 EST OR called to request that patients OR time change to 1PM. Per time change OK. Per OR they called patient and [employer] and they are also OK with time change elephone Encounter - Liz Alvarez - 06/19/2020 1614 EST ..C-19 screening recommended by provider. Routed for testing ordering. Pre Surgery Clearance- 06/27 Vehicle: [employer] Color: white Cell #: [phone] Spoke to patient and verbally gave instructions for Testing Facility. Patient is instructed to be there at 9:00am sharp on 06/22/20. elephone Encounter - Thony Brooks RN - 06/19/2020 1526 EST Pt has a scheduled appt at [facility] on 07/04/20 and they can do a wound check on his surgical site at that time. elephone Encounter - Bronson Padilla - 06/19/2020 1311 EST Needs covid test scheduled on 06/22. elephone Encounter - Thony Brooks RN - 06/19/2020 1255 EST Routing message to [facility] Call Center schedulers to schedule patient for pre procedure COVID-19 screening. elephone Encounter - Sophie Chicas - 06/19/2020 1254 EST Called patient to schedule 4 week follow up with Claire, scheduled for 07/25/20. Patient's askedabout having wound check done at PCP at [facility]? Telephone Encounter - Thony Brooks RN - 06/19/2020 0858 EST Single Chamber Pacemaker Generator Change requested by Claire Lopez APRN for Sick Sinus Syndrome. Timeframe: 06/27/20 Location: [facility] [place] [place] Same Day Surgery unit. Physician Order form and surgical preparation form faxed 06/19/20. Surgical Booking Slip returned with date and time for procedure of 06/27/20 @ 1400hrs. Patient is NOT taking OAC. Patient had labs and CXR beginning of May 2020. Patient notified of date/time of arrival of procedure as well as need for a responsible person to drive them to and from the hospital as the patient will be receiving sedation and will not be able to drive. Patient verbalizes understanding that if they do not have a responsible person to drive them then the procedure will have to be rescheduled and that a bus or taxi is not acceptable for this situation. Current guidelines require patient have a screening test for COVID-19 and they are requesting those be done 5 days prior to the procedure. Order placed. Pt wondered about getting the COVID screening done closer to home, in [facility]. Advised pt that is acceptable to do so, but after explaining steps to register on line and that he would need to email the results to the office, pt decided to just have the COVID screening as ordered, performed at [facility] [place] [place] testing site. Wound Check scheduled in the PCP office ([facility]) for 07/04/20. 4 week follow up visit in office for device check and office visit with Claire Lopez APRN needs to be scheduled. Will forward to scheduling. Letter with detailed information as above printed and mailed to patient on 06/19/20. Patient verbalizes understanding of above information and advised to contact office as needed for questions or for clarification. elephone Encounter - Thony Brooks RN - 05/25/2020 1555 EST Called and offered 06/27/20 for generator change to see if that date works for pt/spouse. That is agreeable with them. Booking slip sent to the [facility] scheduling office requesting that date at either 1300 or 1400 hrs. Will contact pt with further details when date/time of procedure is confirmed. elephone Encounter - Claire Lopez APRN - 05/25/2020 1217 EST Wound check needs to be within 5-7 days of generator change. I already had Ricardo fax my OV note and device check. Thanks. elephone Encounter - Thony Brooks RN - 05/24/2020 1048 EST Routing to BATSHEVA Mar. Can you clarify how urgently patient is in need of generator change? elephone Encounter - Vianey Stark - 05/24/2020 1030 EST Call from [facility]. Pt has an appt scheduled already for 07/04/20. Wanted to know if this is an appropriate f/u time frame. The PCP would like any office notes, labs, testing faxed to them prior to checkup. elephone Encounter - Thony Brooks RN - 05/22/2020 1304 EST Patient is in need of a pacemaker generator change. From Office visit note on 05/19/20 with Isabela: 1. Pacemaker Device functioning normally. Generator at [employer]. 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 12 lead EKG, BMP, CBC and CXR today in preparation for generator change. Will try to arrange wound check to be performed by PCP at [facility]. elephone Encounter - Claire Lopez APRN - 05/22/2020 1150 EST He needs a visit for wound check with his PCP once he has been scheduled. Is from [facility]. Thanks. elephone Encounter - Vianey Stark - 05/22/2020 1016 EST Call from Solomon at PCP office. Returning call to Claire to discuss this patients pace maker. documented in this encounter Plan of Treatment Upcoming Encounters Date Type Specialty Care Team Description 12/27/2021 Office Visit Hematology and Erin Barillas M D Oncology [address] [place] [phone] (Joi diallo) 02/14/2022 Office Visit Hematology and Erin Barillas M D Oncology [address] [phone] (Wo rk) 04/25/2022 Ancillary Procedure Cardiology 04/25/2022 Office Visit Cardiology Claire Lopez NP 130 [facility] [address] [place] [phone] (Wo rk) 05/13/2022 Office Visit Rheumatology Tod Perez NP 111 [facility] Level 5 [place] [phone] (Wo rk) documented as of this encounter Visit Diagnoses Diagnosis Encounter for preprocedure screening lab oratory testing for COVID-19 - Primary documented in this encounter Care Teams Platen Press Operator Apprentice Relationship Specialty Start Date End Date Layne Cai MD PCP - General 04/05/20 [address] [place] [address] documented as of this encounter
--- OUTSIDE RECORDS SUMMARY | 2021-12-21 01:21 | XMS_ITS | Encounter Summary ---
:1945 Author Organization [facility] Address [address] [place] [address] Care Team Providers Name Role Phone Layne Cai MD Primary Care Provider Reason for Visit (Routine) - Authorization Not Required Specialty Diagnoses / Procedures Referred By Contact Refer red To Contact Diagnoses Pacemaker Claire Lopez NP Procedures CARDIAC IMPLANT CHECK - IN CLINIC 130 [facility]- [address] [place] [address] Referral ID Status Reason Start Expiration Visits Visits Date Date Requested Authorized [id number] Authorization Not 1 1 Required 9 Encounter Details Date Type Department Care Team Description 07/25/2020 Ancillary Procedure [facility] [place] Card[facility] Clinic [address] [place] [address] Social History Tobacco Use Types Packs/Day [...] Erin Barillas M D Oncology [address] [phone] (Wo rk) 02/14/2022 Office Visit Hematology and Erin Barillas M D Oncology [address] [phone] (Wo rk) 04/25/2022 Ancillary Procedure Cardiology 04/25/2022 Office Visit Cardiology Claire Lopez NP 130 [facility] [address] [phone] (Wo rk) 05/13/2022 Office Visit Rheumatology Tod Perez NP [address] [phone] (Wo rk) documented as of this encounter Visit Diagnoses Diagnosis Pacemaker Cardiac pacemaker in situ documented in this encounter Orders Implantable Cardiac Device Count Last Ordered Date Fir st Ordered Date CARDIAC IMPLANT CHECK - IN CLINIC 1 07/25/2020 documented in this encounter Care Teams Field Marketing Coordinator Relationship Specialty Start Date End Date Layne Cai MD PCP - General 04/05/[address] [place] [phone] documented as of this encounter
--- OUTSIDE RECORDS SUMMARY | 2021-12-21 01:21 | XMS_ITS | Encounter Summary ---
:1945 Author Organization [facility] Address [address] [place] [address] Care Team Providers Name Role Phone Layne Cai MD Primary Care Provider Reason for Visit Reason Onset Date Comments Medications Refill 05/15/2020 Encounter Details Date Type Department Care Team Description 05/15/2020 Refill [facility] Erin Barillas MD Medications Refill Hematology & Oncology - 111 [facility], [address], [address] [place], [place] [address] [place] [address] [phone] (Wo rk) Social History Tobacco Use [...] 1 Cap by mouth 90 Cap 0 08/14/2020 mg capsuleIndications: daily for 90 days. polycythemia vera documented in this encounter Miscellaneous Notes Telephone Encounter - Jeannette Araiza - 05/15/2020 0825 EST Medication(s) Requested hydroxyurea (HYDREA) 500 mg capsule 500 mg, DAILY EditCancel Reorder Summary: Take 500 mg by mouth daily Pharmacy [facility] Next Visit Date Visit date not found Out of Medication? No Jeannette Jose G 05/15/2020 8:25 documented in this encounter Plan of Treatment Upcoming Encounters Date Type Specialty Care Team Description 12/27/2021 Office Visit Hematology and Erin Barillas M D Oncology [address] [phone] (Joi diallo) 02/14/2022 Office Visit Hematology and Erin Barillas M D Oncology 111 [facility] 2 [place] [address] (Joi diallo) 04/25/2022 Ancillary Procedure Cardiology 04/25/2022 Office Visit Cardiology Claire Lopez NP 130 [facility] [address] [place] [phone] (Joi diallo) 05/13/2022 Office Visit Rheumatology Tod Perez NP 111 [facility], [facility] 5 [place] [address] (Wo rk) documented as of this encounter Visit Diagnoses Not on filedocumented in this encounter Discontinued Medications Medication Sig Discontinue Reason Start Date End Date hydroxyurea (HYDREA) 500 Take 500 mg by Reorder 1 07/15/2019 mg capsuleIndications: mouth daily. polycythemia vera documented as of this encounter Care Teams Motorcycle Riding Instructor Relationship Specialty Start Date End Date Layne Cai MD PCP - General 04/05/[address] [place] [phone] documented as of this encounter
--- OUTSIDE RECORDS SUMMARY | 2021-12-21 01:21 | XMS_ITS | Encounter Summary ---
:1945 Author Organization [facility] Address [address] [place] [address] Care Team Providers Name Role Phone Layne Cai MD Primary Care Provider Reason for Visit Reason Onset Date Comments Medications Refill 05/29/2020 Encounter Details Date Type Department Care Team Description 05/29/2020 Refill [facility] Juanjose Perez NP Medications Refill Rheumatology & Immunology [address], [address] [place], [place] [address] [place] [address] [phone] (Wo rk) Social History Tobacco Use [...] Date End Date methotrexate 2.5 mg Take 9 Tabs by 36 Tab 3 05/29/2020 1 08/02/2019 tabletIndications: mouth once a week. Inflammation around joint, Encounter for long-term (current) use of medications documented in this encounter Miscellaneous Notes Telephone Encounter - Zari Mccabe RN - 05/29/2020 0938 EST From: Praneeth Villanueva To: Office of Tod Perez APRN Sent: 05/29/2020 8:36 EST Subject: Medication Renewal Request Refills have been requested for the following medications: methotrexate 2.5 mg tablet [Tod Perez APRN] Preferred pharmacy: [id number] [facility] documented in this encounter Plan of Treatment Upcoming Encounters Date Type Specialty Care Team Description 12/27/2021 Office Visit Hematology and Erin Barillas M D Oncology [address] [place] [phone] (Joi diallo) 02/14/2022 Office Visit Hematology and Erin Barillas M D Oncology [address] [place] [phone] (Joi rk) 04/25/2022 Ancillary Procedure Cardiology 04/25/2022 Office Visit Cardiology Claire Lopez NP 130 [facility] [address] [phone] (Joi diallo) 05/13/2022 Office Visit Rheumatology Tod Perez NP 111 [facility], Level [address] [place] [address] (Wo rk) documented as of this encounter Visit Diagnoses Diagnosis Inflammation around joint Enthesopathy of unspecified site Encounter for long-term (current) use of medications Encounter for long-term (current) use of other medications documented in this encounter Discontinued Medications Medication Sig Discontinue Reason Start Date End Date methotrexate 2.5 mg Take 9 Tabs by Reorder 04/10/20202019 tabletIndications: mouth once a week. Inflammation around joint, Encounter for long-term (current) use of medications documented as of this encounter Care Teams Certified Orthotist/Pedorthist Relationship Specialty Start Date End Date Layne Cai MD PCP - General 04/05/[address] [place] [phone] documented as of this encounter
--- OUTSIDE RECORDS SUMMARY | 2021-12-21 01:21 | XMS_ITS | Encounter Summary ---
:1945 Author Organization [facility] Address [address] [place] [address] Care Team Providers Name Role Phone Layne Cai MD Primary Care Provider Encounter Details Date Type Department Care Team Description 04/07/2020 Travel Social History Tobacco Use Types Packs/Day [...] Barillas M D Oncology 111 [facility] 2 [place] [phone] (Wo rk) 02/14/2022 Office Visit Hematology and Erin Barillas M D Oncology 111 [facility] 2 [place] [phone] (Wo rk) 04/25/2022 Ancillary Procedure Cardiology 04/25/2022 Office Visit Cardiology Claire Lopez NP 130 [facility] [address] [phone] (Wo rk) 05/13/2022 Office Visit Rheumatology Tod Perez NP 111 [facility], Level [address] [place] [address] (Wo rk) documented as of this encounter Visit Diagnoses Not on filedocumented in this encounter Care Teams Delivery Manager Relationship Specialty Start Date End Date Layne Cai MD PCP - General 04/05/[address] [place] [phone] documented as of this encounter
--- OUTSIDE RECORDS SUMMARY | 2021-12-21 01:21 | XMS_ITS | Encounter Summary ---
:1945 Author Organization [facility] Address [address] [place] [address] Care Team Providers Name Role Phone Layne aCi MD Primary Care Provider Encounter Details Date Type Department Care Team Description 08/29/2020 Orders Only [facility] Cancer Center Omar Espinosa RN Hematology & Oncology - [address] [place] [address] [address] [place] [address] Social History Tobacco Use Types Packs/Day Years [...] Barillas M D Oncology 111 [facility] 2 [place] [phone] (Wo rk) 02/14/2022 Office Visit Hematology and Erin Barillas M D Oncology 111 [facility] 2 [place] [phone] (Wo rk) 04/25/2022 Ancillary Procedure Cardiology 04/25/2022 Office Visit Cardiology Claire Lopez NP 130 [facility] [address] [phone] (Wo rk) 05/13/2022 Office Visit Rheumatology Tod Perez NP 111 [facility], [facility] 5 [place] [address] (Wo rk) documented as of this encounter Visit Diagnoses Not on filedocumented in this encounter Care Teams Fine Arts Teacher Relationship Specialty Start Date End Date Layne Cai MD PCP - General 04/05/[address] [place] [phone] documented as of this encounter
--- OUTSIDE RECORDS SUMMARY | 2021-12-21 01:21 | XMS_ITS | Encounter Summary ---
:1945 Author Organization [facility] Address [address] [place] [address] Care Team Providers Name Role Phone Layne Cai MD Primary Care Provider Claire Lopez BARGE PILOT Unavailable Tod Perez BARGE PILOT Unavailable Encounter Details Date Type Department Care Team Description 06/22/2020 Lab Requisition [facility] Outr Resulting Lab, Pathology & Laboratory Provider [facility] [address] [place] [address] Social History Tobacco Use Types [...] and Erin Barillas M D Oncology 111 [facility], [facility] 2 [place] [phone] (Wo rk) 02/14/2022 Office Visit Hematology and Eirn Barillas M D Oncology 111 [facility], [facility] 2 [place] [phone] (Wo rk) 04/25/2022 Ancillary Procedure Cardiology 04/25/2022 Office Visit Cardiology Claire Lopez NP 130 [facility] [address] [phone] (Wo rk) 05/13/2022 Office Visit Rheumatology Tod Perez NP 111 [facility], [facility] 5 [place] [address] (Wo rk) documented as of this encounter Procedures Procedure Name Priority Date/Time Associated Diagnosis Comme nts COVID-19 TEST [facility] Today 06/22/2020 9:02 EST LAB PCR COVID-19 TESTING Routine 06/22/2020 9:02 EST Resu lts for this procedure are i n the results section. documented in this encounter Results COVID-19 TEST [facility] LAB PCR (06/22/2020 9:02 EST) Specimen Swab - Entire nasopharynx (body structur e) Performing Organization Address City/State/ZIP Code Phon e Number [facility] [address] [place] [address] SERVICES COVID-19 TESTING (06/22/2020 9:02 EST) COVID-19 rt-PCR Negative Negative [facility] Result Comment: CENTER LABORATORY This [...] and epidemiological informatio n. Performed on the in3Dgalleryher Fusion instrument Performing Lab [place] [facility] Lab [facility] SERVICES Specimen Swab Performing Organization Address City/State/ZIP Code Phon e Number [facility] [address] [place] [address] SERVICES documented in this encounter Visit Diagnoses Not on filedocumented in this encounter Additional Health Concerns Infection Onset Date Last Indicated Resolved Time R/O COVID-19 12/28/2020 12/28/2020 01/02/2021 22:15 EDT documented as of this encounter Care Teams Managing Consultant Relationship Specialty Start Date End Date Layne Cai MD PCP - General 04/05/[address] [place] [phone] Claire Lopez NP Cardiovascular Disease 11/22/20 130 [facility] [address] [place] [phone] Tod Perez NP Rheumatology 12/28/20 111 [facility], [facility] 5 [place] [phone] documented as of this encounter
--- OUTSIDE RECORDS SUMMARY | 2021-12-21 01:21 | XMS_ITS | Encounter Summary ---
:[address] [facility] Address [address] [place] [address] Care Team Providers Name Role Phone Layne Cai MD Primary Care Provider Encounter Details Date Type Department Care Team Description 07/07/2020 Orders Only [facility] Cancer Center Rehan Powell Hematology & Oncology TRAM Cuellar (HCC-C MS) (Primary Dx) - Main [place] [address] [place], [place] [phone] Social History Tobacco Use Types Packs/Day Years [...] and Erin Barillas M D Oncology 111 [facility] 2 [place] [phone] (Wo rk) 02/14/2022 Office Visit Hematology and Erin Barillas M D Oncology 111 [facility] 2 [place] [address] (Wo rk) 04/25/2022 Ancillary Procedure Cardiology 04/25/2022 Office Visit Cardiology Claire Lopez NP 130 [facility] [address] [phone] (Wo rk) 05/13/2022 Office Visit Rheumatology Tod Perez NP [address] [facility], [facility] 5 [place] [address] (Wo rk) documented as of this encounter Visit Diagnoses Diagnosis Polycythemia vera (HCC) - Primary documented in this encounter Care Teams Mid Level Clinician Relationship Specialty Start Date End Date Layne Cai MD PCP - General 04/05/[address] [place] [phone] documented as of this encounter
--- OUTSIDE RECORDS SUMMARY | 2021-12-21 01:21 | XMS_ITS | Encounter Summary ---
:1945 Author Organization [facility] Address [address] [place] [address] Care Team Providers Name Role Phone Layne Cai MD Primary Care Provider Reason for Visit Reason Comments Follow-up Joint Pain Encounter Details Date Type Department Care Team Description 08/31/2020 Office Visit [facility] Tod Perze Hi story of seronegative inflammatory arthritis (Primary Dx); Rheumatology & [employer] Encounter for long-term (current) use of medications Immunology - Main [address] [place], [place] [phone] [place] [address], [place] [phone] (Wo rk) Social History Tobacco Use Types [...] Sign Reading Time Taken Comments Blood Pressure 138/68 08/31/2020 1023 EDT Pulse 90 08/31/2020 1023 EDT Temperature - - Respiratory Rate - - Oxygen Saturation - - Inhaled Oxygen Concentration - - Weight 105.2 kg (232 lb) 08/31/2020 1023 EDT Height 181.6 cm (5' 11.5) 08/31/2020 1023 EDT Body Mass Index 31.91 08/31/2020 1023 EDT documented in this encounter Functional Status [...] Patient Instructions Patient InstructionsTod Perez APRN - 08/31/2020 10:30 EDT 1. Continue current meds. 2. We will see what your next Cr is, if it is higher we need to decrease your methorexate, Could add plaquenil, you would need to have plaquenil eye screening every 6-12 month 3. Labs next week every 3-4 months 4. F/u 3-4 months in person HYDROXYCHLOROQUINE (PLAQUENIL) - Patient Fact Sheet WHAT IS IT? Hydroxychloroquine (Plaquenil) is considered a disease-modifying anti-rheumatic drug (DMARD). It candecrease the pain and swelling of arthritis, prevent joint damage and reduce the risk of long-term disability. Hydroxychloroquine is in a class of medications that was first used to prevent and treat malaria. Today, it is used to treat rheumatoid arthritis, some symptoms of lupus, childhood arthritis (also known as juvenile idiopathic arthritis) and other autoimmune diseases. It is not clear why hydroxychloroquine is effective at treating autoimmune diseases. It is believed that hydroxychloroquine interferes with communication of cells in the immune system. HOW TO TAKE IT Hydroxychloroquine comes in an oral tablet. Adult dosing ranges from 200mg or 400mg per day (5 mg per kg of actual body weight). In some cases, higher doses can be used. It is recommended one tablet twice daily if taking more than one tablet. It is also recommended to be taken with food. Symptoms can start to improve in one to two months, but it may take up to six months before full benefits of this medication are experienced. SIDE EFFECTS Hydroxychloroquine typically is very well tolerated. Serious side effects are rare. The most common side effects are nausea and diarrhea, which often improve with time. Less common side effects includerash, changes in skin pigment (such as darkening or dark spots), hair changes, and muscle weakness. Rarely, hydroxychloroquine can lead to anemia in some individuals. This can happen in individuals with a condition known as G6PD deficiency or porphyria. In rare cases, hydroxychloroquine can cause visual changes or loss of vision. Such vision problems are more likely to occur in individuals taking high doses for many years, in individuals 60 years or older, or in those with significant kidney disease. At the recommended dose, development of visual problems due to the medication is rare. It is recommended that you have an eye exam within the first year of use, then repeat every 1 to 5 years based on current guidelines. TELL YOUR DOCTOR Although there are few drug interactions with hydroxychloroquine, to be safe be sure to tell your doctor about all of the medications you are taking, including zehy-ttu-hprynnu drugs and natural remedies. Be sure to notify your other physicians when taking this drug. This drug does not have a strong effect on the immune system, so vaccines recommended by other physicians are generally acceptable. Notify your eye doctor when you are on this medication so regular visual screening tests can be performed. If you are , considering becoming , or lactating, please discuss this with your doctor before taking this medication. However, hydroxychloroquine has been shown to be safe during p regnancy and breast feeding. ?? 2019 [employer] documented in this encounter Progress Notes Tod Perez APRN - 08/31/2020 1030 EDT Images from the original note were not included. Patient ID: Deon Villanueva is a 74 y.o. y.o. male Subjective: Chief Complaint: Follow-up and Joint Pain HPI: ?? Pertinent Rheumatological History: 1. Seronegative [...] to improvement of symptoms - Travelled to [place] including [facility]. Able to ambulate without difficulty. - AM [...] swelling. Was in a 5th meng in [place] at that time. new dx around 04/2019 of polycythemia: elevated RBC and hemoglobin Had repeat labs at [facility] 05/2019 PCP was suppose to set up NPV with hematology at [facility] - they have not heard from PCP [...] X Hand/Foot color change in cold X Changes since last visit REVIEW OF SYSTEMS: [...] Dr. Hilario next week, And labs next tues Denies any other joint pains or swelling. [...] seronegative inflammatory arthritis ??? Facial rash Past Medical History: Diagnosis Date ??? Arthritis [...] ??? hydroxyurea (HYDREA) 500 mg capsule ??? ibuprofen (MOTRIN) 200 mg tablet ??? methotrexate 2.5 mg tablet ??? metoprolol XL (TOPROL-XL) 25 mg tablet ??? omeprazole (PRILOSEC) 40 mg capsule ??? simvastatin (ZOCOR) 40 mg tablet No current facility-administered medications for this visit. ROS - SEE HPI I reviewed the 10 point ROS performed by the nurse which is as documented in Prism. Objective: BP 138/68 Pulse 90 Ht 181.6 cm (71.5) Wt (!) 105.2 kg (232 lb) BMI 31.91 kg/m?? General: No acute distress. Alert, fully oriented, pleasant, conversant. HEENT: Conjunctivae/corneas clear. Pupils equal, Sclerae anicteric. Mucus membranes moist; oropharynx clear. Neck supple, symmetrical, trachea midline Lungs: Clear to auscultation bilaterally. Heart: Regular rate and rhythm, S1, S2 present, no murmur Abdomen: Soft, non-tender, non-distended. Extremities: Extremities without cyanosis, Skin: Clear Musculoskeletal: Spine: No significant tenderness. [...] for DEON VILLANUEVA ( ) as of 08/30/2020 08:40 Ref. Range 07/24/2020 00:00 Sodium, External Unknown [...] Calculated Unknown >60 WHITE BLOOD COUNT - [facility] Latest Ref Range: 4.0 - 10.4 10e3/ul 7.2 RED BLOOD COUNT - [facility] Latest Ref Range: 4.36 - 5.78 10e3/ul 4.74 Hemoglobin Latest Ref Range: 13.8 - 17.3 g/dl 14.3 HCT Latest Ref Range: 39.5 - 50.2 % 46.2 IG# - [facility] Latest Ref Range: 0 - 0.7 10e3/uL [...] 2 % 1 ABSOLUTE NEUTROPHIL COUN - [facility] Latest Ref Range: 2.2 - 8.85 10e3/uL 4.9 LYMPH # - [facility] Latest Ref Range: 1.09 - 3.3 10e3/ul 1.3 MONO # - [facility] Latest Ref Range: 0.1 - 0.8 10e3/uL 0.7 EOS # - [facility] Latest Ref Range: 0.03 - 0.61 10e3/ul 0.16 BASO # - [facility] Latest Ref Range: 0.01 - 0.11 10e/uL [...] 135 05/10/2014 ?? C4 27 05/10/2014 ?? [facility]: 11/18/18: CBC with differential: CBC = [...] Status: Final result ?Visible to patient: Yes (Energy Excelerator Online) Next appt: 05/25/2018 at 11:40 inRheumatology (Sudhir Rosales MD) Order: [id number] ? 1yr ago ?? Pathology Report: SURGICAL PATHOLOGY REPORT Reports generated via electronic interface contain original data; however they are lacking the format of the original report. Caution should be taken when reading/interpreting unformatted reports. Name: ? DEON VILLANUEVA ? Accession #: ? [id number] ? : ? 1945 (Age: 71) ??M ?Collect Date: ? 10/23/2016 ? Location: ? [facility] ? Receive Date: ? 10/24/2016 ? Provider: SHREYA LEA MD Copy to: MINDY SZYMANSKI [facility] ? Final Pathologic Diagnosis: A. ??GASTROESOPHAGEAL JUNCITON, [...] Status: Final result ?Visible to patient: Yes (Rattle) Next appt: 05/25/2018 at 11:40 inRheumatology (Sudhir Rosales MD) Order: [id number] ? 1yr ago ?? Pathology Report: SURGICAL PATHOLOGY REPORT Reports generated via electronic interface contain original data; however they are lacking the format of the original report. Caution should be taken when reading/interpreting unformatted reports. Name: ? DEON VILLANUEVA ? Accession #: ? [id number] ? : ? 1945 (Age: 71) ??M ?Collect Date: ? 10/23/2016 ? Location: ? [facility] ? Receive Date: ? 10/24/2016 ? Provider: SHREYA LEA MD Copy to: MINDY E STEPHON MARKET RESEARCH INTERVIEWER ? Final Pathologic Diagnosis: A. ??GASTROESOPHAGEAL JUNCITON, [...] 7:55 AM ?XR CHEST 2 VIEWS (Order [id number]) Status: Final result (Exam End: 05/19/2020 16:15) Results XR CHEST 2 VIEWS ( (Order [id number]) XR CHEST 2 VIEWS Order: [id number] Status: Final result ?Visible to patient: Yes (MyChart) Next appt: None Details Reading Physician Reading Date Result Priority Dustin Ibrahim MD [phone] 05/19/2020 Narrative & Impression EXAM: RADIOLOGY/CHEST PA [...] SYSTEM 05/19/2020 Reported By: Dustin Ibrahim MD [email or web address] Summary Functional Status: 0 Pain Tolerance: 0 - No Pain Global Estimate: 0 - Very Well Score: 0 Interpretation: Near Remission ASSESSMENT: 1.Inflammator arthritis doing well on MTX 10 tabs MTX pen was too expencive. PT had increase in Cr 1.5 (1.2)- he is checking it next week, if still elevated will have to decrease MTX and could add HCQ. 2 up to date on labs PT had increase in Cr 1.5- he is checking it next week, maintenance labs every 3-4 months 4. Polycythemia vera -followed by Dr. Barillas Hematology/Oncology On hydrea and aspirin 81mg. Not needing phlebotomy at this time as CBC and abs neutrophils normalized Encounter Diagnoses Name Primary? History of seronegative inflammatory arthritis Yes ??? Encounter for long-term (current) use of medications PLAN: 1. Continue current meds. 2. We will see what your next Cr is, if it is higher we need to decrease your methorexate, Could add plaquenil, you would need to have plaquenil eye screening every 6-12 month 3. Labs next week every 3-4 months 4. F/u 3-4 months in person Addendum 09/05/20 Cr. 1.1 BUN 22. Continue current meds. 1. History of seronegative inflammatory arthritis 2. Encounter for long-term (current) use of medications No orders of the defined types were placed in this encounter. Barriers to learning identified: No Patient verbalizes understanding and agrees with plan Yes I was directly supervised by: Dr. Rosales They were present in clinic and available for consult if needed. Tod Peerz, BEER STILL RUNNER COMPOUNDER 08/31/2020 12:30 I spent a total of 30 minutes on the date of this encounter meeting with the patient and reviewing documentation/coordinating care as described in the above note. No procedures were performed at the time of the visit. documented in this encounter Plan of Treatment Upcoming Encounters Date Type Specialty Care Team Description 12/27/2021 Office Visit Hematology and Erin Barillas M D Oncology [address] [facility] [address] [place] [phone] (Wo rk) 02/14/2022 Office Visit Hematology and Erin Barillas M D Oncology [address] [phone] (Wo rk) 04/25/2022 Ancillary Procedure Cardiology 04/25/2022 Office Visit Cardiology Claire Lopez NP [address] [facility] [address] [place] [phone] (Wo rk) 05/13/2022 Office Visit Rheumatology Tod Perez NP 111 [facility] 5 [place] [phone] (Wo rk) documented as of this encounter Visit Diagnoses Diagnosis History of seronegative inflammatory art hritis - Primary Encounter for long-term (current) use of medications Encounter for long-term (current) use of other medications documented in this encounter Discontinued Medications Medication Sig Discontinue Reason Start Date End Date methotrexate, PF, Inject 25 mg into Therapy completed 06/06/2020 08/31/2020 (RASUVO, PF,) 25 mg/0.5 the skin once a mL auto-injector week. documented as of this encounter Care Teams Documentation Lead Relationship Specialty Start Date End Date Layne Cai MD PCP - General 04/05/[address] [place] [phone] documented as of this encounter
--- OUTSIDE RECORDS SUMMARY | 2021-12-21 01:21 | XMS_ITS | Encounter Summary ---
:1945 Author Organization [facility] Address [address] [place] [address] Care Team Providers Name Role Phone Layne Cai MD Primary Care Provider Reason for Visit Reason Comments Other pacer battery depletion Encounter Details Date Type Department Care Team Description 06/27/2020 External Contact [facility] - Andres Chawla Sick sinus syndrome ([facility]) (Primary Dx); [facility] Cardiology MD Minh Pacemaker battery depletion; Clinic [address] Pacemaker [address] [facility] [address] [place] [address] [place] [phone] Social History Tobacco Use Types Packs/Day [...] documented as of this encounter Progress Notes Andres Chawla MD - 06/27/2020 1252 EST [facility] Cardiology PreOP H&P Subjective: Chief Complaint(s): Other (pacer battery depletion) HPI: 74 yo with multiple medical co-morbidities including inflammatory polyarthropathy treated with methotrexate, hx benign neoplasm of the colon, polycythemia vera, GERD, BPH, stage III CKD, HLD, NATALIE, HTN,sinus node dysfunction s/p single chamber pacemaker who returns to the office for routine device interrogation. Overall he reports feeling well from a cardiac perspective. Has no specific complaints orconcerns to offer. 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 ?? Systems review A 10 point review of systems was performed and pertinent negatives and positives are mentioned above. ? Past medical history Patient Active Problem List Diagnosis ??? Chest pain ??? Light headed ??? Sick sinus syndrome (HCC-CMS) ??? Pacemaker ??? Sleep apnea ??? Hypertension ??? GERD (gastroesophageal reflux disease) ??? Hypercholesteremia ??? Enlarged prostate ??? Left hand weakness ??? History of seronegative inflammatory arthritis ??? Facial rash ?? Past Surgical History: Procedure Laterality Date ??? CARDIAC PACEMAKER PLACEMENT ? CATARACT REMOVAL ? bilateral ??? CHOLECYSTECTOMY ? 2005 ??? EYE SURGERY ? HERNIA REPAIR ? Medications Current Outpatient Medications on File Prior to Visit Medication Sig Dispense Refill ??? aspirin 81 mg EC tablet Take 81 mg by mouth daily. ? finasteride (PROSCAR) 5 mg tablet Take 5 mg by mouth daily. ? folic acid (FOLVITE) 1 mg tablet Take 1 Tab by mouth daily. 90 Tab 3 ??? hydroxyurea (HYDREA) 500 mg capsule Take 1 Cap by mouth daily for 90 days. 90 Cap 0 ??? ibuprofen (MOTRIN) 200 mg tablet Take 200 mg by mouth every 6 hours as needed for Pain. ? methotrexate 2.5 mg tablet Take 9 Tabs by mouth once a week. 16 Tab 1 ??? metoprolol XL (TOPROL-XL) 25 mg tablet TK 1 T PO D ? omeprazole (PRILOSEC) 40 mg capsule ? simvastatin (ZOCOR) 40 mg tablet Take 40 mg by mouth every evening. ? No current facility-administered medications on file prior to visit. ? Medication allergies Allergies Allergen Reactions ??? Lisinopril ? Causes chest pain. ? Myocardial bridging ? Fhx/ Shx Family History Problem Relation Age of Onset ??? Diabetes Father ? Stroke Father ? Diabetes Brother ? Arthritis Mother ? unkown type ?? Social History ?? Socioeconomic History ??? Marital status: ? Spouse name: Not on file ??? Number of children: Not on file ??? Years of education: Not on file ??? Highest education level: Not on file Occupational History ??? Not on file Social Needs ??? Financial resource strain: Not on file ??? Food insecurity ? Worry: Not on file ? Inability: Not on file ??? Transportation needs ? Medical: Not on file ? Non-medical: Not on file Tobacco Use ??? Smoking status: Former Smoker ? Packs/day: 3.00 ? Years: 20.00 ? Pack years: 60.00 ? Types: Cigarettes, Cigars ? Quit date: 09/15/1980 ? Years since quittin.7 ??? Smokeless tobacco: Never Used ? ? Tobacco comment: Quit >30 years ago Substance and Sexual Activity ??? Alcohol use: Yes ? Comment: Occasional beer ??? Drug use: No ??? Sexual activity: Not on file Lifestyle ??? Physical activity ? Days per week: Not on file ? Minutes per session: Not on file ??? Stress: Not on file Relationships ??? Social connections ? Talks on phone: Not on file ? Gets together: Not on file ? Attends protestant service: Not on file ? Active member of club or organization: Not on file ? Attends meetings of clubs or organizations: Not on file ? Relationship status: Not on file ??? Intimate partner violence ? Fear of current or ex partner: Not on file ? Emotionally abused: Not on file ? Physically abused: Not on file ? Forced sexual activity: Not on file Other Topics Concern ??? Not on file Social History Narrative ?? 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 3 children ? I have reviewed current problem list and current medications. ROS: A 10-system ROS was performed, pertinent items as mentioned in HPI, otherwise negative. ROS Objective: Examination: Vitals: see PRE-OP sheet. There were no vitals taken for this visit.There is no height or weight on file to calculate BMI. Physical Exam GENERAL APPEARANCE: no acute distress, pleasant, cooperative. HEENT EYES: conjunctiva clear, sclerae anicteric. NECK: supple, no JVD, no carotid bruit. CHEST: normal shape and expansion. HEART: regular rate and rhythm, normal S1S2, no murmurs, rub or gallop. LUNGS: clear to auscultation & percussion, good air entry bilaterally. ABDOMEN: soft, NT/ND, BS present. EXTREMITIES: no clubbing, no cyanosis, no edema. PERIPHERAL PULSES: carotid, radial, PT: 2+ bilaterally. SKIN: warm & dry. NEUROLOGIC EXAM: alert & oriented x3, nonfocal, normal speech, gait normal. Labs: Lab Results Component Value Date CHOL 111 04/08/2012 HDL 22 04/08/2012 LDLBASE 66 04/08/2012 TRIG 117 04/08/2012 CHOLHDL 5.0 04/08/2012 BUN Date Value Ref Range Status 12/06/2019 24 10 - 26 mg/dL Final 03/29/2015 13 10 - 26 mg/dl Final BUN - [facility] Date Value Ref Range Status 05/19/2020 20 10 - 26 mg/dL Final Creatinine Date Value Ref Range Status 12/06/2019 1.09 0.66 - 1.25 mg/dL Final 03/29/2015 0.90 0.66 - 1.25 mg/dl Final CREATININE Date Value Ref Range Status 05/19/2020 1.06 0.66 - 1.25 mg/dL Final Potassium Date Value Ref Range Status 05/19/2020 4.5 3.5 - 5.0 mEq/L Final 03/29/2015 4.3 3.5 - 5.0 mEq/L Final CALCIUM - [facility] Date Value Ref Range Status 05/19/2020 9.6 8.5 - 10.5 mg/dL Final WBC Date Value Ref Range Status 12/06/2019 8.98 4.00 - 10.40 K/cmm Final 03/29/2015 7.21 4.0 - 10.4 K/cmm Final Hemoglobin Date Value Ref Range Status 12/06/2019 17.8 (H) 13.8 - 17.3 gm/dL Final 03/29/2015 14.6 13.8 - 17.3 gm/dl Final HEMOGLOBIN - [facility] Date Value Ref Range Status 05/19/2020 14.3 13.8 - 17.3 g/dl Final PLT Date Value Ref Range Status 12/06/2019 551 (H) 141 - 377 K/cmm Final 03/29/2015 219 141 - 320 K/cmm Final PLATELET COUNT Date Value Ref Range Status 05/19/2020 243 141 - 377 10e3/ul Final TSH Date Value Ref Range Status 09/15/2013 0.38 0.35 - 5.00 uIU/ml Final Lab Results Component Value Date HGBA1C 6.0 04/08/2012 No results found for: NTBNP DEvice check 05/19/2020 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 Service: Office Visit Implant Date: 04/09/2012 Indication: Bradycardia Battery Longevity: 6 months (< 1-15 months) ?? Underlying rhythm: bradycardia, SND ?? Mode: AAIR ?? URL/LRL: 130/60 bpm ?? Atrial Paced: 96% ?? Lead Impedance, threshold, and sensing testing all within normal parameters. (See scanned documentation associated with this visit for full details) ?? There were: no alerts ?? AMS: none ?? AF burden: none ?? AT/AF: Patient is taking daily N/A ?? Impression: The leads and device are functioning normally. The patient will follow up In office in 6months. Device program evaluation with iterative adjustments were made to test device function and select optimal permanent program values with analysis, review, and report. Generator approaching ADEBAYO, e levated battery impedance. 96% AP, no underlying rhythm ? Assessment & Plan: 1. Sick sinus syndrome (HCC-CMS) 2. Pacemaker battery depletion 3. Pacemaker ?? 1. Pacemaker Device functioning normally. Generator at ADEBAYO. 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 12 lead EKG, BMP, CBC and CXR today in preparation for generator change. Will try to arrange wound check to be performed by PCP at [facility]. ?? 2. Sick sinus syndrome (HCC-CMS) S/p single chamber pacemaker. ?? Andres Chawla MD documented in this encounter Plan of Treatment Upcoming Encounters Date Type Specialty Care Team Description 12/27/2021 Office Visit Hematology and Erin Barillas M D Oncology [address] [place] [phone] (Joi diallo) 02/14/2022 Office Visit Hematology and Erin Barillas M D Oncology [address] [place] [phone] (Joi rk) 04/25/2022 Ancillary Procedure Cardiology 04/25/2022 Office Visit Cardiology Claire Lopez NP 130 [facility] [address] [place] [phone] (Wo rk) 05/13/2022 Office Visit Rheumatology Tod Perez NP 111 [facility] 5 [place] [phone] (Wo rk) documented as of this encounter Visit Diagnoses Diagnosis Sick sinus syndrome (HCC-CMS) (HCC) - Pr imary Sinoatrial node dysfunction Pacemaker battery depletion Fitting and adjustment of cardiac pacema ker Pacemaker Cardiac pacemaker in situ documented in this encounter Care Teams Wrapper Hand Relationship Specialty Start Date End Date Layne Cai MD PCP - General 04/05/[address] [place] [phone] documented as of this encounter
--- OUTSIDE RECORDS SUMMARY | 2021-12-21 01:21 | XMS_ITS | Encounter Summary ---
:1945 Author Organization [facility] Address [address] [place] [address] Care Team Providers Name Role Phone Layne Cai MD Primary Care Provider Reason for Visit Reason Onset Date Comments Results 07/27/2020 Encounter Details Date Type Department Care Team Description 07/27/2020 Telephone [facility] Erni Barillas MD Results Hematology & Oncology - 111 [facility], [address], [address] 2 [place], [place] [address] [place] [phone] (Wo rk) Social History Tobacco Use Types [...] Notes Telephone Encounter - Augustina Salazar - 07/27/2020 1041 EST LABS ENTERED FROM [facility]. Augustina Salazar 07/27/2020 10:42 documented in this encounter Plan of Treatment Upcoming Encounters Date Type Specialty Care Team Description 12/27/2021 Office Visit Hematology and Erin Barillas M D Oncology [address] [place] [phone] (Wo rk) 02/14/2022 Office Visit Hematology and Erin Barillas M D Oncology [address] [place] [phone] (Wo rk) 04/25/2022 Ancillary Procedure Cardiology 04/25/2022 Office Visit Cardiology Claire Lopez NP [address] [place] [address] [phone] (Wo rk) 05/13/2022 Office Visit Rheumatology Tod Perez NP [address] [phone] (Wo rk) documented as of this encounter Procedures Procedure Name Priority Date/Time Associated Diagnosis Comme nts COMPREHENSIVE METABOLIC Routine 07/24/2020 Resu lts for this PANEL (ONCOLOGY USE procedur e are in the ONLY-INC MG) results section . COMPLETE BLOOD COUNT AND Routine 07/24/2020 Res ults for this DIFFERENTIAL procedure are i n the results section . documented in this encounter Results (ABNORMAL) COMPREHENSIVE METABOLIC PANEL (ONCOLOGY USE ONLY-INC MG) (07/24/2020) Pathologist Sig nature Calcium, External 8.9 [facility] CO2, External 27.1 [facility] AST, External 23 [facility] ALT, External 24 [facility] Bilirubin, Total, 0.6 [facility] Creatinine, External 1.5 (A) 0.70 - 1.30 [facility] Calculated Calcium, [facility] Anion Gap, External [facility] Total Protein, 7.3 [facility] Potassium, External 4.4 [facility] Total Alkaline [facility] Phosphatase, [facility] AB Albumin, External 3.9 [facility] BUN, External 25 (A) 7 - 18 [facility] GFR, Calculated, 45.50 [facility] Fasting?, External [facility] Chloride, External 105 [facility] Glucose, Serum, 137 (A) 74 - 106 [facility] Sodium, External 140 [facility] Magnesium, External [facility] Specimen Blood - Venous blood (substance) Performing Organization Address City/State/ZIP Code Phon e Number [facility] (ABNORMAL) COMPLETE BLOOD COUNT AND DIFFERENTIAL (07/24/2020) Pathologist Sig nature WBC, External 7.01 [facility] RBC, External 4.96 [facility] Hemoglobin, External 14.5 [facility] HCT, External 46.3 [facility] MCV, External 93.3 [facility] MCH, External 29.2 [facility] MCHC, External 31.3 (A) 32.0 - 36.0 [facility] PLT, External 245 [facility] RDW-CV, External 19.1 (A) 11.8 - 14.1 [facility] Neutrophils, 74.4 [facility] Lymphocytes, 13.6 [facility] Monocytes, External 7.0 [facility] Eosinophils, 3.6 [facility] Basophils, External 0.7 [facility] ABS Neutrophils, 5.22 [facility] ABS Lymphs, External 0.95 (A) 1.2 - 3.4 [facility] ABS Monocytes, 0.49 [facility] ABS Eosinophils, 0.25 [facility] ABS Basophils, 0.05 [facility] Specimen Blood - Venous blood (substance) Performing Organization Address City/State/ZIP Code Phon e Number [facility] documented in this encounter Visit Diagnoses Not on filedocumented in this encounter Care Teams Hr Coordinator Relationship Specialty Start Date End Date Layne Cai MD PCP - General 04/05/20 [address] [place] [phone] documented as of this encounter
--- OUTSIDE RECORDS SUMMARY | 2021-12-21 01:21 | XMS_ITS | Encounter Summary ---
:1945 Author Organization [facility] Address [address] [place] [address] Care Team Providers Name Role Phone Layne Cai MD Primary Care Provider Reason for Visit Reason Onset Date Comments Appointment Related 07/28/2020 Encounter Details Date Type Department Care Team Description 07/28/2020 Telephone [facility] Serina Hilario, SENIOR QUALITY ENGINEER Appointment Related Ambulatory Infusion 111 [facility], [facility] 111 [facility], Level 2 [place], [place] [address] [address] [phone] (Wo rk) Social History Tobacco Use [...] Notes Telephone Encounter - Marilu Cleaning - 07/28/2020 0456 EST Spoke w/PT. Did not schedule as he was confused about who the provider is & insists he's never heard of Dr. Hilario. I sent an Search to Phone message to Dr. Hilario. documented in this encounter Plan of Treatment Upcoming Encounters Date Type Specialty Care Team Description 12/27/2021 Office Visit Hematology and Erin Barillas M D Oncology 111 [facility] 2 [place] [phone] (Wo rk) 02/14/2022 Office Visit Hematology and Erin Barillas M D Oncology 111 [facility] 2 [place] [phone] (Wo rk) 04/25/2022 Ancillary Procedure Cardiology 04/25/2022 Office Visit Cardiology Claire Lopez NP [address] [place] [address] 2[address] [place] [phone] (Wo rk) 05/13/2022 Office Visit Rheumatology Tod Perez NP 111 [facility], [facility] 5 [place] [phone] (Wo rk) documented as of this encounter Visit Diagnoses Not on filedocumented in this encounter Care Teams Senior Hydrogeologist Relationship Specialty Start Date End Date Layne Cai MD PCP - General 04/05/[address] [place] [phone] documented as of this encounter
--- OUTSIDE RECORDS SUMMARY | 2021-12-21 01:21 | XMS_ITS | Encounter Summary ---
:1945 Author Organization [facility] Address [address] [place] [address] Care Team Providers Name Role Phone Layne Cai MD Primary Care Provider Reason for Referral (Routine) - Authorization Not Required Specialty Diagnoses / Procedures Referred By Contact Refer red To Contact Diagnoses Sinus node dysfunction ([facility]) ([facility]) Adrien Hackett, NUT GRADER Procedures CARDIAC IMPLANT CHECK - REMOTE MONITOR [address] [place] [phone] Referral ID Status Reason Start Expiration Visits Visits Date Date Requested Authorized [id number] Authorization Not 10/23/2020 18 18 Required Encounter Details Date Type Department Care Team Description 10/23/2020 Orders Only [facility] - Adrien Hackett, Sin us node dysfunction [facility] Cardiology Clin ic NUT GRADER ([facility]) (Primary Dx) [address] [place] [address] [address] [place] [address] Social History Tobacco Use Types [...] Hematology and Erin Barillas M D Oncology [address] [place] [phone] (Joi diallo) 02/14/2022 Office Visit Hematology and Erin Barillas M D Oncology [address] [place] [phone] (Wo rk) 04/25/2022 Ancillary Procedure Cardiology 04/25/2022 Office Visit Cardiology Claire Lopez NP 130 [facility] [address] [place] [phone] (Wo rk) 05/13/2022 Office Visit Rheumatology Tod Perez NP 111 [facility], [facility] 5 [place] [phone] (Wo rk) documented as of this encounter Results CARDIAC IMPLANT CHECK - REMOTE - PACEMAKER (06/04/2021 12:55 EST) Specimen Narrative [facility]ARE - 06/07/2021 12:[address] I have reviewed the pacemaker interrogation. ??I agree with the findings. See scanned document for details of monico te download. Adrien Hackett APRN Performing Organization Address City/State/ZIP Code Phon e Number [facility] POINT OF CARE CARDIAC IMPLANT CHECK - REMOTE - PACEMAKER (10/24/2020 9:31 EDT) Specimen Narrative [facility] POINT OF CARE - 10/24/2020 9:32 ED [...] Organization Address City/State/ZIP Code Phon e Number [facility] POINT OF CARE documented in this encounter Visit Diagnoses Diagnosis Sinus node dysfunction (HCC-CMS) (HCC) - Primary Sinoatrial node dysfunction documented in this encounter Orders Implantable Cardiac Device Count Last Ordered Date Fir st Ordered Date CARDIAC IMPLANT CHECK - REMOTE MONITOR 1 1 documented in this encounter Care Teams Tour Coordinator Relationship Specialty Start Date End Date Layne Cai MD PCP - General 04/05/[address] [place] [phone] documented as of this encounter
--- OUTSIDE RECORDS SUMMARY | 2021-12-21 01:21 | XMS_ITS | Encounter Summary ---
:1945 Author Organization [facility] Address [address] [place] [address] Care Team Providers Name Role Phone Layne Cai MD Primary Care Provider Encounter Details Date Type Department Care Team Description 09/07/2020 Orders Only [facility] Cancer Center Rehan Powell Hematology & Oncology TRAM Cuellar (HCC-C MS) (Primary Dx) - [facility] [place] [address] [place], [place] [phone] Social History Tobacco Use Types Packs/Day Years [...] Erin Barillas M D Oncology 111 [facility] 2 [place] [phone] (Wo rk) 02/14/2022 Office Visit Hematology and Erin Barillas M D Oncology 111 [facility] 2 [place] [phone] (Wo rk) 04/25/2022 Ancillary Procedure Cardiology 04/25/2022 Office Visit Cardiology Claire Lopez NP 130 [facility] [address] [phone] (Wo rk) 05/13/2022 Office Visit Rheumatology Tod Perez NP 111 [facility], [facility] 5 [place] [phone] (Wo rk) documented as of this encounter Visit Diagnoses Diagnosis Polycythemia vera (HCC) - Primary documented in this encounter Care Teams Tire Repairman Relationship Specialty Start Date End Date Layne Cai MD PCP - General 04/05/[address] [place] [phone] documented as of this encounter
--- OUTSIDE RECORDS SUMMARY | 2021-12-21 01:21 | XMS_ITS | Encounter Summary ---
:1945 Author Organization [facility] Address [address] [place] [address] Care Team Providers Name Role Phone Layne Cai MD Primary Care Provider Reason for Visit Reason Comments Telemedicine Video Visit Encounter Details Date Type Department Care Team Description 09/07/2020 Telemedicine [facility] Center Reshma Hilario Poly cythemia vera Hematology & HAND FORMER HELPER ([facility]) (Primary Oncology - [address] [place] [address] [address], [place] [phone] (Wo rk) Social History Tobacco Use Types [...] as of this encounter Progress Notes Reshma Hilario APRN - 09/07/2020 1000 EDT DATE: 09/07/20 The concept of ???Telemedicine?? has been described [...] health care. The visit was conducted via Zoom, starting at 10:00 and ending at 10:22. TELEMEDICINE VIDEO VISIT Today's visit was provided through telemedicine video conferencing: I have reviewed the appropriateness of using video technology with the patient with regards to today's visit. The location of the patient : Home The location of the provider: Home The following staff and their role did participate in today's encounter visit: Reshma Hilario APRN HEMATOLOGIC HISTORY: Mr. Villanueva is a 74 y.o. gentleman with past medical history of [...] His is with him on video. He reports that he has been feeling well.He has not noticed any side effects with hydrea therapy. He reports no nausea or vomiting. No mouth sores or leg ulcerations. His appetite is normal. No drenching night sweats, fevers or chills. No headaches or vision changes. No chest pain, shortness of breath or lower extremity swelling. REVIEW OF SYSTEMS: The remainder of a 10-point review of systems, as filled out on the patient's symptom report form, is otherwise negative. Outpatient Medications Marked as Taking for the 09/07/20 encounter (Telemedicine) with Reshma Hilario APRN Medication [...] Pain. ??? methotrexate 2.5 mg tablet Take 10 Tabs by mouth once a week. 120 Tab 3 ??? metoprolol XL (TOPROL-XL) 25 mg tablet TK 1 T PO D ??? omeprazole (PRILOSEC) 40 mg capsule ??? simvastatin (ZOCOR) 40 mg tablet Take 40 mg by mouth every evening. SOCIAL HISTORY: Retired. 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 Former smoker with 20 pack year smoking history, quit 40 years ago. 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 Family history: No family history of cancer, [...] Skin: No rashes noted. LABS: Ref. Range 09/05/2020 00:00 Sodium, External Unknown 140 Potassium, External Unknown 4.7 Chloride, External Unknown 102 CO2, External Unknown 30.0 BUN, External Latest Ref Range: 7 - 18 22 (A) Creatinine, External Unknown 1.1 Glucose, Serum, External Latest Ref Range: 74 - 106 119 (A) Calcium, External Unknown 9.2 Total Protein, External Unknown 7.1 Albumin, External Unknown 4.1 AST, External Unknown 22 ALT, External Unknown 30 Bilirubin, Total, External Unknown 0.6 Alkaline Phosphatase, External Unknown 83 GFR, Calculated, External Unknown 60 WBC, External Unknown 5.98 RBC, External Unknown 4.81 Hemoglobin, External Unknown 14.6 HCT, External Unknown 46.6 MCH, External Unknown 30.4 MCV, External Latest Ref Range: 80 - 95 96.9 (A) MCHC, External Latest Ref Range: 32.0 - 36.0 31.3 (A) RDW-CV, External Latest Ref Range: 11.8 - 14.1 18.2 (A) PLT, External Unknown 252 ABS Neutrophils, External Unknown 4.22 Neutrophils, External Unknown 70.5 Lymphocytes, External Unknown 18.6 Eosinophils, External Unknown 3.2 Basophils, External Unknown 0.7 ABS Lymphs, External Latest Ref Range: 1.2 - 3.4 1.11 (A) ABS Monocytes, External Unknown 0.39 ABS Eosinophils, External Unknown 0.19 ABS Basophils, External Unknown 0.04 Monocytes, External Unknown 6.5 JAK2 V617F mutation testing is positive. Epo 1.6 (Low) ASSESSMENT: Praneeth Villanueva is a 74 y.o. 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 He is now on hydroxyurea 500 mg po daily which is well tolerated. He receives intermittent phlebotomy at [facility]. His most recent hematocrit levels have been >45, and not meeting goal. We will schedule him for therapeutic phlebotomy next week. He remains tolerating hydroxyurea well with no side effects or toxicity. He'll continue to have labs monitored every4 weeks locally, and will follow-up with us in 3 months. PLAN: 1. Schedule phlebotomy next Friday, 09/15 (per patient request) for hematocrit >45. 2. Continue hydroxyurea 500 mg po daily. 3. Continue CBCd every 4 weeks, CMP quarterly. 4. Continue aspirin 81 mg po daily for secondary prophylaxis. 5. Follow-up with us in 3 months. 6. Blood pressure/lipid monitoring through PCP's office. 7. He has received both doses of the Moderna COVID-19 vaccine. Reshma Hilario NP (Annie) Hematology Oncology documented in this encounter Plan of Treatment Upcoming Encounters Date Type Specialty Care Team Description 12/27/2021 Office Visit Hematology and Erin Barillas M D Oncology [address] [phone] (Wo rk) 02/14/2022 Office Visit Hematology and Erin Barillas M D Oncology [address] [place] [phone] (Wo rk) 04/25/2022 Ancillary Procedure Cardiology 04/25/2022 Office Visit Cardiology Claire Lopez NP 130 [facility] 2-1 [place] [phone] (Wo rk) 05/13/2022 Office Visit Rheumatology Tod Perez NP 111 [facility], [address] [phone] (Wo rk) documented as of this encounter Visit Diagnoses Diagnosis Polycythemia vera (HCC) - Primary documented in this encounter Care Teams Search Optimization Analyst Relationship Specialty Start Date End Date Layne Cai MD PCP - General 04/05/[address] [place] [phone] documented as of this encounter
--- OUTSIDE RECORDS SUMMARY | 2021-12-21 01:21 | XMS_ITS | Encounter Summary ---
:1945 Author Organization [facility] Address [address] [place] [address] Care Team Providers Name Role Phone Layne Cai MD Primary Care Provider Reason for Visit Reason Onset Date Comments Results 04/05/2020 Encounter Details Date Type Department Care Team Description 04/05/2020 Telephone [facility] Cancer Center Erin Barillas MD Results Hematology & Oncology - 111 [facility], [address], [address] 2 [place], [place] [phone] [place] [phone] (Wo rk) Social History Tobacco Use [...] Notes Telephone Encounter - Augustina Salazar - 04/05/2020 8735 EDT LABS ENTERED FROM [facility]. Augustina Salazar 04/05/2020 13:55 documented in this encounter Plan of Treatment Upcoming Encounters Date Type Specialty Care Team Description 12/27/2021 Office Visit Hematology and Erin Barillas M D Oncology [address] [place] [phone] (Wo rk) 02/14/2022 Office Visit Hematology and Erin Barillas M D Oncology [address] [place] [phone] (Wo rk) 04/25/2022 Ancillary Procedure Cardiology 04/25/2022 Office Visit Cardiology Claire Lopez NP [address] [place] [address] [phone] (Wo rk) 05/13/2022 Office Visit Rheumatology Tod Perez NP 111 [facility] 5 [place] [phone] (Wo rk) documented as of this encounter Procedures Procedure Name Priority Date/Time Associated Diagnosis Comme nts COMPREHENSIVE METABOLIC Routine 04/04/2020 Resu lts for this PANEL (ONCOLOGY USE procedur e are in the ONLY-INC MG) results section . COMPLETE BLOOD COUNT AND Routine 04/04/2020 Res ults for this DIFFERENTIAL procedure are i n the results section . documented in this encounter Results (ABNORMAL) COMPLETE BLOOD COUNT AND DIFFERENTIAL (04/04/2020) Pathologist Sig nature WBC, External 6.58 LAB RBC, External 4.46 LAB Hemoglobin, External 14.8 LAB HCT, External 45.0 LAB MCV, External 100.9 (A) 80 - 95 LAB MCH, External 33.2 (A) 27.0 - 33.0 LAB MCHC, External 32.9 LAB PLT, External 279 LAB RDW-CV, External 16.0 (A) 11.8 - 14.1 LAB Neutrophils, 69.4 [facility] Lymphocytes, 20.8 [facility] Monocytes, External 7.0 LAB Eosinophils, 1.8 [facility] Basophils, External 0.5 LAB ABS Neutrophils, 4.57 [facility] ABS Lymphs, External 1.37 LAB ABS Monocytes, 0.46 [facility] ABS Eosinophils, 0.12 [facility] ABS Basophils, 0.03 [facility] Specimen Blood - Venous blood (substance) Performing Organization Address City/State/ZIP Code Phon e Number LAB (ABNORMAL) COMPREHENSIVE METABOLIC PANEL (ONCOLOGY USE ONLY-INC MG) (04/04/2020) Pathologist Sig nature Calcium, External 9.1 LAB CO2, External 25.7 LAB AST, External 18 LAB ALT, External 20 LAB Bilirubin, Total, 0.5 [facility] Creatinine, External 1.24 LAB Calculated Calcium, [facility] Anion Gap, External LAB Total Protein, 6.7 [facility] Potassium, External 4.4 LAB Total Alkaline 69 [facility] Phosphatase, [facility] LAB Albumin, External 4.0 LAB BUN, External 19 (A) 7 - 18 LAB GFR, Calculated, 56.68 [facility] Fasting?, External LAB Chloride, External 105 LAB Glucose, Serum, 120 (A) 74 - 106 [facility] Sodium, External 139 LAB Magnesium, External LAB Specimen Blood - Venous blood (substance) Performing Organization Address City/State/ZIP Code Phon e Number LAB documented in this encounter Visit Diagnoses Not on filedocumented in this encounter Care Teams Rolling Down Machine Operator Relationship Specialty Start Date End Date Layne Cai MD PCP - General 04/05/20 [address] [place] [phone] documented as of this encounter
--- OUTSIDE RECORDS SUMMARY | 2021-12-21 01:21 | XMS_ITS | Encounter Summary ---
:1945 Author Organization [facility] Address [address] [place] [address] Care Team Providers Name Role Phone Layne Cai MD Primary Care Provider Claire Lopez LOW RAW SUGAR CUTTER Unavailable Tod Perez LOW RAW SUGAR CUTTER Unavailable Reason for Visit Reason Onset Date Comments Returning Call 08/07/2020 Labs Only 08/07/2020 Encounter Details Date Type Department Care Team Description 08/07/2020 Telephone [facility] Cancer Center Rochelle Hilario LOW RAW SUGAR CUTTER Returning Call; Labs Hematology & Oncology 111 [facility] - [facility], [address], [facility] 2 [place] [address] [place], [place] [phone] (Wo rk) Social History Tobacco Use [...] this encounter Miscellaneous Notes Telephone Encounter - Coreen Astorga - 08/07/2020 1133 EST Patient returning Reshma's call regarding lab orders? Please call to discuss. documented in this encounter Plan of Treatment Upcoming Encounters Date Type Specialty Care Team Description 12/27/2021 Office Visit Hematology and Erin Barillas M D Oncology [address] [place] [phone] (Joi diallo) 02/14/2022 Office Visit Hematology and Erin Barillas M D Oncology [address] [place] [phone] (Wo rk) 04/25/2022 Ancillary Procedure Cardiology 04/25/2022 Office Visit Cardiology Claire Lopez NP [address] [place] [address] [phone] (Wo rk) 05/13/2022 Office Visit Rheumatology Tod Perez NP 111 [facility] 5 [place] [phone] (Wo rk) documented as of this encounter Visit Diagnoses Not on filedocumented in this encounter Additional Health Concerns Infection Onset Date Last Indicated Resolved Time R/O COVID-19 12/28/2020 12/28/2020 01/02/2021 22:15 EDT documented as of this encounter Care Teams Financial Services Counselor Relationship Specialty Start Date End Date Layne Cai MD PCP - General 04/05/20 [address] [place] [phone] Claire Lopez NP Cardiovascular Disease 11/22/20 130 [facility] 2-1 [place] [phone] Tod Perez NP Rheumatology 12/28/20 111 [facility], Level 5 [place] [phone] documented as of this encounter
--- OUTSIDE RECORDS SUMMARY | 2021-12-21 01:21 | XMS_ITS | Encounter Summary ---
:1945 Author Organization [facility] Address [address] [place] [address] Care Team Providers Name Role Phone Layne Cai MD Primary Care Provider Reason for Visit Reason Onset Date Comments Results 06/28/2020 Encounter Details Date Type Department Care Team Description 06/28/2020 Telephone [facility] Erin Barillas MD Results Hematology & Oncology - 111 [facility], [address], [address] 2 [place], [place] [address] [place] [phone] (Wo rk) Social History Tobacco Use Types [...] Notes Telephone Encounter - Augustina Salazar - 06/28/2020 1508 EST LABS ENTERED FROM [facility]. documented in this encounter Plan of Treatment Upcoming Encounters Date Type Specialty Care Team Description 12/27/2021 Office Visit Hematology and Erin Barillas M D Oncology [address] [place] [phone] (Wo rk) 02/14/2022 Office Visit Hematology and Erin Barillas M D Oncology [address] [phone] (Wo rk) 04/25/2022 Ancillary Procedure Cardiology 04/25/2022 Office Visit Cardiology Claire Lopez NP [address] [place] [address] [phone] (Wo rk) 05/13/2022 Office Visit Rheumatology Tod Perez NP 111 [facility] 5 [place] [phone] (Wo rk) documented as of this encounter Procedures Procedure Name Priority Date/Time Associated Diagnosis Comme nts COMPLETE BLOOD COUNT AND Routine 06/22/2020 Res ults for this DIFFERENTIAL procedure are i n the results section . documented in this encounter Results (ABNORMAL) COMPLETE BLOOD COUNT AND DIFFERENTIAL (06/22/2020) Pathologist Sig nature WBC, External 6.74 [facility] RBC, External 4.93 [facility] Hemoglobin, External 14.4 [facility] HCT, External 46.5 [facility] MCV, External 94.3 [facility] MCH, External 29.2 [facility] MCHC, External 31.0 (A) 32.0 - 36.0 [facility] PLT, External 215 [facility] RDW-CV, External 16.8 (A) 11.8 - 14.1 [facility] Neutrophils, 73.1 [facility] Lymphocytes, 17.5 [facility] Monocytes, External 6.2 [facility] Eosinophils, 1.9 [facility] Basophils, External 0.6 [facility] ABS Neutrophils, 4.92 [facility] ABS Lymphs, External 1.18 (A) 1.2 - 3.4 [facility] ABS Monocytes, 0.42 [facility] ABS Eosinophils, 0.13 [facility] ABS Basophils, 0.04 [facility] Specimen Blood - Venous blood (substance) Performing Organization Address City/State/ZIP Code Phon e Number [facility] documented in this encounter Visit Diagnoses Not on filedocumented in this encounter Care Teams Ingot Caster Relationship Specialty Start Date End Date Layne Cai MD PCP - General 04/05/[address] [place] [phone] documented as of this encounter
--- OUTSIDE RECORDS SUMMARY | 2021-12-21 01:21 | XMS_ITS | Encounter Summary ---
:1945 Author Organization [facility] Address [address] [place] [address] Care Team Providers Name Role Phone Layne Cai MD Primary Care Provider Reason for Visit Reason Onset Date Comments Coordination Of Care 08/01/2020 Encounter Details Date Type Department Care Team Description 08/01/2020 Telephone [facility] Rochelle Hilario, MANAGER COMMUNITY DEVELOPMENT Coordination Of Care Hematology & Oncology [address] [place], [place] [address] [place] [address] [phone] (Wo rk) Social History Tobacco Use [...] this encounter Miscellaneous Notes Telephone Encounter - Reshma Hilario, BOBBIN CLEANER - 08/01/2020 1323 EST ----- Message from [employer] sent at 07/28/2020 14:53 EST ----- Regarding: Confused Patient Good afternoon Dr. Hilario, I reached out to this patient in attempt to schedule a Therapeutic Phlebotomy for next week, and he didn't have a clue what I was talking about. He said the only provider he sees in [place] is Dr. Barillas and he will not do anything without first speaking with her. I suggested he contact the office for more information but I wanted to inform you, too. Please let me know if there's anything I can do to help. Have a great day- Marilu [employer]aning ----- I called Praneeth to help clarify. No answer. Left message on machine asking for call back. -Diana Hilario NP documented in this encounter Plan of Treatment Upcoming Encounters Date Type Specialty Care Team Description 12/27/2021 Office Visit Hematology and Erin Barillas M D Oncology [address] [phone] (Joi diallo) 02/14/2022 Office Visit Hematology and Erin Barillas M D Oncology [address] [phone] (Joi diallo) 04/25/2022 Ancillary Procedure Cardiology 04/25/2022 Office Visit Cardiology Claire Lopez , FESTUS 130 [facility] [address] [place] [phone] (Wo rk) 05/13/2022 Office Visit Rheumatology Tod Perez NP 111 [facility], [address] 5 [place] [phone] (Wo rk) documented as of this encounter Visit Diagnoses Not on filedocumented in this encounter Care Teams Coffee Sampler Relationship Specialty Start Date End Date Layne Cai MD PCP - General 04/05/20 [address] [place] [phone] documented as of this encounter
--- OUTSIDE RECORDS SUMMARY | 2021-12-21 01:21 | XMS_ITS | Encounter Summary ---
:1945 Author Organization [facility] Address [address] [place] [address] Care Team Providers Name Role Phone Layne Cai MD Primary Care Provider Reason for Visit Reason Onset Date Comments Results 07/06/2020 Encounter Details Date Type Department Care Team Description 07/06/2020 Telephone [facility] Cancer Center Erin Barillas MD Results Hematology & Oncology - 111 [facility], [address], [address] [place], [place] [address] [place] [phone] (Wo rk) Social History Tobacco Use Types [...] Notes Telephone Encounter - Augustina Salazar - 07/06/2020 1352 EST LABS ENTERED FROM [facility]. Augustina Salazar 07/06/2020 13:52 documented in this encounter Plan of Treatment Upcoming Encounters Date Type Specialty Care Team Description 12/27/2021 Office Visit Hematology and Erin Barillas M D Oncology [address] [place] [phone] (Wo rk) 02/14/2022 Office Visit Hematology and Erin Barillas M D Oncology [address] [place] [phone] (Wo rk) 04/25/2022 Ancillary Procedure Cardiology 04/25/2022 Office Visit Cardiology Claire Lopez NP [address] [place] [address] [phone] (Wo rk) 05/13/2022 Office Visit Rheumatology Tod Perez NP [address] [phone] (Wo rk) documented as of this encounter Procedures Procedure Name Priority Date/Time Associated Diagnosis Comme nts COMPREHENSIVE METABOLIC Routine 07/06/2020 Resu lts for this PANEL (ONCOLOGY USE procedur e are in the ONLY-INC MG) results section . COMPLETE BLOOD COUNT AND Routine 07/06/2020 Res ults for this DIFFERENTIAL procedure are i n the results section . documented in this encounter Results (ABNORMAL) COMPREHENSIVE METABOLIC PANEL (ONCOLOGY USE ONLY-INC MG) (07/06/2020) Pathologist Sig nature Calcium, External 8.8 [facility] CO2, External 26.8 [facility] AST, External 16 [facility] ALT, External 25 [facility] Bilirubin, Total, 0.4 [facility] Creatinine, External 1.29 [facility] Calculated Calcium, [facility] Anion Gap, External [facility] Total Protein, 6.9 [facility] Potassium, External 4.6 [facility] Total Alkaline 72 [facility] Phosphatase, [facility] L AB Albumin, External 4.0 [facility] BUN, External 22 (A) 7 - 18 [facility] GFR, Calculated, 54.15 [facility] Fasting?, External [facility] Chloride, External 105 [facility] Glucose, Serum, 142 (A) 74 - 106 [facility] Sodium, External 140 [facility] Magnesium, External [facility] Specimen Blood - Venous blood (substance) Performing Organization Address City/State/ZIP Code Phon e Number [facility] (ABNORMAL) COMPLETE BLOOD COUNT AND DIFFERENTIAL (07/06/2020) Pathologist Sig nature WBC, External 7.14 [facility] RBC, External 4.95 [facility] Hemoglobin, External 14.4 [facility] HCT, External 46.8 [facility] MCV, External 94.5 [facility] MCH, External 29.1 [facility] MCHC, External 30.8 (A) 32.0 - 36.0 [facility] PLT, External 277 [facility] RDW-CV, External 18.4 (A) 11.8 - 14.1 [facility] Neutrophils, 69.7 [facility] Lymphocytes, 17.5 [facility] Monocytes, External 8.3 [facility] Eosinophils, 2.7 [facility] Basophils, External 0.8 [facility] ABS Neutrophils, 4.98 [facility] ABS Lymphs, External 1.25 [facility] ABS Monocytes, 0.59 [facility] ABS Eosinophils, 0.19 [facility] ABS Basophils, 0.06 [facility] Specimen Blood - Venous blood (substance) Performing Organization Address City/State/ZIP Code Phon e Number [facility] documented in this encounter Visit Diagnoses Not on filedocumented in this encounter Care Teams Certified Medical Transcriptionist Relationship Specialty Start Date End Date Layne Cai MD PCP - General 04/05/20 [address] [place] [phone] documented as of this encounter
--- OUTSIDE RECORDS SUMMARY | 2021-12-21 01:21 | XMS_ITS | Encounter Summary ---
:[address] [facility] Address [address] [place] [address] Care Team Providers Name Role Phone Layne Cai MD Primary Care Provider Reason for Referral Prior Authorization (3 - 10 Business Days) - Authorized Specialty Diagnoses / Procedures Referred By Contact Refer red To Contact Infusion Therapy Diagnoses Polycythemia vera (HCC) Reshma Hilario, FIREWORKS ASSEMBLY SUPERVISOR [facility] Procedures [place] PHLEBOTOMY 111 [facility] [address] [place] [address] [address], [address] [place], [place] Fax: [phone] Referral ID Status Reason Start Expiration Visits Visits Date Date Requested Authorized [id number] Authorized Specialty 09/07/2020 06/15/2032 1 1 Services Required Question Answer Is this appt for transfusion, medication, test or inje ction? Procedure Type of procedure? Therapeutic phlebotomy Have orders been place for this appt? (i.e.: Blood Tra nsfusion No Order Set, Therapy Plan, Lab Orders, Supportive Plan, Etc) Reason for Visit Prior Authorization (3 - 10 Business Days) - Authorized Specialty Diagnoses / Procedures Referred By Contact Refer red To Contact Infusion Therapy Diagnoses Polycythemia vera (HCC) Reshma Hilario, FIREWORKS ASSEMBLY SUPERVISOR [facility] Procedures [place] PHLEBOTOMY 111 [facility] [address] [place] [address] [address] [place], [place] Fax: [phone] Referral ID Status Reason Start Expiration Visits Visits Date Date Requested Authorized [id number] Authorized Specialty 09/07/2020 06/15/2032 1 1 Services Required Encounter Details Date Type Department Care Team Description 09/15/2020 Hospital Encounter [facility] Jonathan ycythemia vera Ambulatory Infusion ([facility] Center [address] [place] [address] Social History Tobacco Use Types [...] Sign Reading Time Taken Comments Blood Pressure 149/74 09/15/2020 1616 EDT Pulse - - Temperature 36.3 ??C (97.3 ??F) 09/15/2020 1548 EDT Respiratory Rate 16 09/15/2020 1616 EDT Oxygen Saturation 100% 09/15/2020 1548 EDT Inhaled Oxygen Concentration - - Weight [...] 1 Cap by mouth 90 Cap 0 11/12/2020 mg capsuleIndications: daily for 90 days. polycythemia vera ibuprofen (MOTRIN) 200 mg Take 200 mg by 0 12/15/2020 tablet mouth every 6 hours as needed for Pain. methotrexate 2.5 mg Take 10 Tabs by 120 Tab 3 08/14/2020 11/12/2020 tabletIndications: mouth once a week. Inflammation around joint, Encounter for long-term (current) use of medications simvastatin (ZOCOR) 40 mg Take 40 mg by mouth 0 11/09/2020 tablet every evening. documented as of this encounter Discharge Disposition Disposition Code Departure Means Destination Home or Self Care documented in this encounter Progress Notes Robi Dunlap RN - 09/15/2020 1600 EDT Patient Praneeth Villanueva admitted to [address] for therapeutic phlebotomy related to d45. Patient identification verified verbally and on patient armband. Consent signed. IV placed 18g. Therapeutic phlebotomy initiated at 1550 pre BP 157/80 Completed at 1620 BP 149/74, tolerated well without side effects. IV removed. Left via ambulation. documented in this encounter Plan of Treatment Upcoming Encounters Date Type Specialty Care Team Description 12/27/2021 Office Visit Hematology and Erin Barillas M D Oncology [address] [place] [address] 2 [place] [phone] (Wo rk) 02/14/2022 Office Visit Hematology and Erin Barillas M D Oncology 111 [facility], [facility] 2 [place] [phone] (Wo rk) 04/25/2022 Ancillary Procedure Cardiology 04/25/2022 Office Visit Cardiology Claire Lopez , FESTUS 130 [facility] 2[address]1 [place] [phone] (Wo rk) 05/13/2022 Office Visit Rheumatology Tod Perez NP 111 [facility], Level 5 [place] [phone] (Wo rk) Scheduled Referrals Name Type Priority Associated Diagnoses Order S chedule AMB CONS/FOLLOW Outpatient Referral Routine Polycythemia vera 1 Occurrences UP INFUSION (HCC-CMS) starting 2020 until documented as of this encounter Visit Diagnoses Diagnosis Polycythemia vera (HCC) documented in this encounter Care Teams Counter Supply Worker Relationship Specialty Start Date End Date Layne Cai MD PCP - General 04/05/[address] [place] [phone] documented as of this encounter
--- OUTSIDE RECORDS SUMMARY | 2021-12-21 01:21 | XMS_ITS | Encounter Summary ---
:1945 Author Organization [facility] Address [address] [place] [address] Care Team Providers Name Role Phone Layne Cai MD Primary Care Provider Reason for Visit Reason Comments Telemedicine Video Visit Follow-up Encounter Details Date Type Department Care Team Description 04/21/2020 Telemedicine [facility] Cancer Center Erin Barillas MD Polycythemia vera Hematology & [address] [place] [address] (HCC-[facility]) (Pr imary Oncology - [facility] Dx) [facility], [address], [address] [place], [place] [address] [place] [address] [phone] (Wo rk) Social History Tobacco Use [...] encounter Progress Notes Erin Barillas MD - 04/21/2020 1630 EST The concept of ???Telemedicine?? has been described [...] role did participate in today's encounter visit: Erin Barillas MD Subjective: Chief Complaint Patient presents with [...] to Hematology for evaluation of polycythemia vera. Interval Visit: No new complaints 12 point ROS performed with pertinent positives [...] States that he spent the winter in [place] and noted that his fingers would turn [...] below. Social history: Retired. Worked for the [employer]. Former smoker with 20 pack year [...] Cigarettes, Cigars Quit date: 09/15/1980 Years since quittin.8 ??? Smokeless tobacco: Never Used ? ? 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 aspirin 81 mg EC tablet ??? finasteride (PROSCAR) 5 mg tablet ??? folic acid (FOLVITE) 1 mg tablet ??? hydroxyurea (HYDREA) 500 mg capsule ??? ibuprofen (MOTRIN) 200 mg tablet ??? methotrexate 2.5 mg tablet ??? methotrexate, PF, (RASUVO, PF,) 25 mg/0.5 mL auto-injector ??? metoprolol XL (TOPROL-XL) 25 mg tablet ??? omeprazole (PRILOSEC) 40 mg capsule ??? simvastatin (ZOCOR) 40 mg tablet No current facility-administered medications for this visit. Allergies Allergen Reactions ??? Lisinopril Causes chest pain. ? Myocardial bridging Review of Systems Neurological: Positive for dizziness. - See HPI Objective: There were no vitals taken for this visit. ECOG Performance Status: 0 Labs: CBC reviewed Review of records from patient's PCP's office [...] would increase risk of cardiovascular complications. Plan: 1.Restarted Hydrea given resolution of neutropenia. Hct <45 so will hold off on further phlebotomy. 2. Continue low-dose Aspirin 81mg daily. Patient reports that BP at home has been ranging 120s-140s systolic We discussed alarm symptoms including but not limited to worsening fatigue, night sweats, fever, chills, weight loss, abdominal pain, nausea, dyspnea, chest pain, that would prompt an urgent medical evaluation. Patient expresses understanding and is agreeable to this plan of care I explained the above findings to the patient who is agreeable to this course of action. I spent a total of 25 minutes with Praneeth Villanueva today and 25 minutes of that time was spent in counseling and coordination of care as described in the progress note. Erin Barillas MD documented in this encounter Plan of Treatment Upcoming Encounters Date Type Specialty Care Team Description 12/27/2021 Office Visit Hematology and Erin Barillas M D Oncology [address] [phone] (Wo rk) 02/14/2022 Office Visit Hematology and Erin Barillas M D Oncology [address] [phone] (Wo rk) 04/25/2022 Ancillary Procedure Cardiology 04/25/2022 Office Visit Cardiology Claire Lopez NP 130 [facility] [address] [phone] (Wo rk) 05/13/2022 Office Visit Rheumatology Tod Perez NP 111 [facility] 5 [place] [phone] (Wo rk) documented as of this encounter Procedures Procedure Name Priority Date/Time Associated Diagnosis Comme nts ORDERS - SCANNED 08/03/2020 7:34 EST documented in this encounter Visit Diagnoses Diagnosis Polycythemia vera (HCC) - Primary documented in this encounter Orders Admission Count Last Ordered Date First Ordered Date ORDERS - SCANNED 1 08/03/2020 documented in this encounter Care Teams Control Room Technician Relationship Specialty Start Date End Date Layne Cai MD PCP - General 04/05/[address] [place] [phone] documented as of this encounter
--- OUTSIDE RECORDS SUMMARY | 2021-12-21 01:21 | XMS_ITS | Encounter Summary ---
:1945 Author Organization [facility] Address [address] [place] [address] Care Team Providers Name Role Phone Layne Cai MD Primary Care Provider Reason for Referral Prior Authorization (3 - 10 Business Days) - Authorized Specialty Diagnoses / Procedures Referred By Contact Refer red To Contact Infusion Therapy Diagnoses Polycythemia vera (HCC) Reshma Hilario, DRAWING IN MACHINE TENDER HELPER [facility] Procedures [place] PHLEBOTOMY [address] [address] [address], [address] [place], [place] Fax: [phone] Referral ID Status Reason Start Expiration Visits Visits Date Date Requested Authorized [id number] Authorized Specialty 09/07/2020 06/15/2032 1 1 Services Required Question Answer Is this appt for transfusion, medication, test or inje ction? Procedure Type of procedure? Therapeutic phlebotomy Have orders been place for this appt? (i.e.: Blood Tra nsfusion No Order Set, Therapy Plan, Lab Orders, Supportive Plan, Etc) Encounter Details Date Type Department Care Team Description 09/07/2020 Orders Only [facility] Cancer Center Rehan Powell ia vermandy Hematology & Oncology TRAM Cuellar (HCC-C [place]) (Primary Dx) - [address] [phone] Social History Tobacco Use Types Packs/Day Years [...] Hematology and Erin Barillas M D Oncology [address] [place] [phone] (Wo rk) 02/14/2022 Office Visit Hematology and Erin Barillas M D Oncology [address] [phone] (Wo rk) 04/25/2022 Ancillary Procedure Cardiology 04/25/2022 Office Visit Cardiology Claire Lopez NP 130 [facility] [address] [phone] (Wo rk) 05/13/2022 Office Visit Rheumatology Tod Perez NP [address] [phone] (Wo rk) Scheduled Referrals Name Type Priority Associated Diagnoses Order S chedule AMB CONS/FOLLOW UP Outpatient Referral Routine Polycythemia ve ra Expected: INFUSION ([facility]) 09/15/2020 documented as of this encounter Visit Diagnoses Diagnosis Polycythemia vera (HCC) - Primary documented in this encounter Care Teams Marble Polisher Relationship Specialty Start Date End Date Layne Cai MD PCP - General 04/05/[address] [place] [phone] documented as of this encounter
--- OUTSIDE RECORDS SUMMARY | 2021-12-21 01:21 | XMS_ITS | Encounter Summary ---
:1945 Author Organization [facility] Address [address] [place] [address] Care Team Providers Name Role Phone Layne Cai MD Primary Care Provider Reason for Visit Reason Comments Other pre-op covid 19 testing Encounter Details Date Type Department Care Team Description 06/22/2020 Office Visit [facility] Mobile Scre ening for viral [facility] Testing disease (Prim augustine Dx) [facility] - Mobile Testing Department [address] [place] [address] Social History Tobacco Use Types Packs/Day Years [...] documented as of this encounter Progress Notes Anisha Amezcua - 06/22/2020 0900 EST Covid specimen collected by: Michael Amezcua CCA II Patient tolerated well. Covid instructional hand-out given. documented in this encounter Plan of Treatment Upcoming Encounters Date Type Specialty Care Team Description 12/27/2021 Office Visit Hematology and Erin Barillas M D Oncology 111 [facility] 2 [place] [phone] (Wo rk) 02/14/2022 Office Visit Hematology and Erin Barillas M D Oncology 111 [facility] 2 [place] [phone] (Wo rk) 04/25/2022 Ancillary Procedure Cardiology 04/25/2022 Office Visit Cardiology Claire Lopez NP 130 [facility] [address] [place] [phone] (Wo rk) 05/13/2022 Office Visit Rheumatology Tod Perez NP 111 [facility], [facility] 5 [place] [phone] (Wo rk) documented as of this encounter Visit Diagnoses Diagnosis Screening for viral disease - Primary Special screening examination for unspec ified viral disease documented in this encounter Care Teams Chisel Worker Relationship Specialty Start Date End Date Layne Cai MD PCP - General 04/05/[address] [place] [phone] documented as of this encounter
--- OUTSIDE RECORDS SUMMARY | 2021-12-21 01:21 | XMS_ITS | Encounter Summary ---
:1945 Author Organization [facility] Address [address] [place] [address] Care Team Providers Name Role Phone Layne Cai MD Primary Care Provider Claire Lopez BUCKET OPERATOR Unavailable Tod Perez BUCKET OPERATOR Unavailable Reason for Visit Reason Onset Date Comments Prior Auth, Medication 06/05/2020 Rasuvo 25mg Encounter Details Date Type Department Care Team Description 06/05/2020 Telephone [facility] Tod Perez, Pr ior Auth, Rheumatology & BUCKET OPERATOR Medication (Rasuvo [facility] [address]) [address] [place], [place] [id number] [place] [address], [place] [phone] (Wo rk) Social History Tobacco [...] Sig Dispensed Refills Start Date End Date methotrexate, PF, Inject 25 mg into 12 Syringe 1 06/06/2020 08/31/2020 (RASUVO, PF,) 25 mg/0.5 the skin once a mL auto-injector week. documented in this encounter Miscellaneous Notes Telephone Encounter - Blanka Albert RPH - 06/06/2020 0854 EST Patient and informed that a PA is not required for Rasuvo (injectable methotrexate) use. They prefer that this prescription is sent to their [facility] pharmacy. Will discuss use with their pharmacist and call clinic afterwards if additional Zoom training is needed. Will also alert us if cost is an issue. Blanka Albert, Pharm.D., [facility] Pharmacist Clinician - Rheumatology 06/06/2020 Telephone Encounter - Scot Parikh - 06/05/2020 1301 EST Prior Authorization Not Required Medication: Rasuvo 25mg Insurance Response: drug is covered by current benefit plan Pharmacy: [facility] Prior Authorization Submission Process Medication: Rasuvo 25mg Insurance: GUI MedD Date PA Request Received: 06/01/20 PA Submission Date: 06/05/20 CMM Hansen: [id number] Submitted by: Danielleronickapil signed by Scot Parikh at 06/05/2020 13:24 ESTdocumented in this encounter Plan of Treatment Upcoming Encounters Date Type Specialty Care Team Description 12/27/2021 Office Visit Hematology and Erin Barillas M D Oncology [address] [place] [address] 2 [place] [phone] (Wo rk) 02/14/2022 Office Visit Hematology and Erin Barillas M D Oncology [address] [phone] (Wo rk) 04/25/2022 Ancillary Procedure Cardiology 04/25/2022 Office Visit Cardiology Claire Lopez NP [address] [place] [address] [phone] (Wo rk) 05/13/2022 Office Visit Rheumatology Tod Perez NP [address] [place] [phone] (Wo rk) documented as of this encounter Visit Diagnoses Not on filedocumented in this encounter Additional Health Concerns Infection Onset Date Last Indicated Resolved Time R/O COVID-19 12/28/2020 12/28/2020 01/02/2021 22:15 EDT documented as of this encounter Care Teams Insurance Policy Issue Clerk Relationship Specialty Start Date End Date Layne Cai MD PCP - General 04/05/[address] [place] [phone] Claire Lopez NP Cardiovascular Disease 11/22/[address] [place] [address] [phone] Tod Perez NP Rheumatology 12/28/[address] [place] [phone] documented as of this encounter
--- OUTSIDE RECORDS SUMMARY | 2021-12-21 01:21 | XMS_ITS | Encounter Summary ---
:1945 Author Organization [facility] Address [address] [place] [address] Care Team Providers Name Role Phone Layne Cai MD Primary Care Provider Reason for Visit Reason Onset Date Comments Results 06/30/2020 Encounter Details Date Type Department Care Team Description 06/30/2020 Telephone [facility] Erin Barillas MD Results Hematology & Oncology - 111 [facility], [address], [address] 2 [place], [place] [address] [place] [phone] (Wo rk) Social History Tobacco Use Types [...] Notes Telephone Encounter - Augustina Salazar - 06/30/2020 2505 EST LABS ENTERED FROM [facility]. Augustina Salazar 06/30/2020 15:58' documented in this encounter Plan of Treatment Upcoming Encounters Date Type Specialty Care Team Description 12/27/2021 Office Visit Hematology and Erin Barillas M D Oncology [address] [place] [address] 2 [place] [phone] (Wo rk) 02/14/2022 Office Visit Hematology and Erin Barillas M D Oncology [address] [place] [phone] (Wo rk) 04/25/2022 Ancillary Procedure Cardiology 04/25/2022 Office Visit Cardiology Claire Lopez NP [address] [place] [address] [phone] (Wo rk) 05/13/2022 Office Visit Rheumatology Tod Perez NP [address] [phone] (Wo rk) documented as of this encounter Procedures Procedure Name Priority Date/Time Associated Diagnosis Comme nts COMPREHENSIVE METABOLIC Routine 06/29/2020 Resu lts for this PANEL (ONCOLOGY USE procedur e are in the ONLY-INC MG) results section . COMPLETE BLOOD COUNT AND Routine 06/29/2020 Res ults for this DIFFERENTIAL procedure are i n the results section . documented in this encounter Results (ABNORMAL) COMPREHENSIVE METABOLIC PANEL (ONCOLOGY USE ONLY-INC MG) (06/29/2020) Pathologist Sig nature Calcium, External 8.8 [facility] CO2, External 26.4 [facility] AST, External 15 [facility] ALT, External 24 [facility] Bilirubin, Total, 0.5 [facility] Creatinine, External 1.20 [facility] Calculated Calcium, [facility] Anion Gap, External [facility] Total Protein, 6.9 [facility] Potassium, External 4.5 [facility] Total Alkaline [facility] Phosphatase, [facility] L AB Albumin, External 4.0 [facility] BUN, External 19 (A) 7 - 18 [facility] GFR, Calculated, 58.86 [facility] Fasting?, External [facility] Chloride, External 103 [facility] Glucose, Serum, 102 [facility] Sodium, External 138 [facility] Magnesium, External [facility] Specimen Blood - Venous blood (substance) Performing Organization Address City/State/ZIP Code Phon e Number [facility] (ABNORMAL) COMPLETE BLOOD COUNT AND DIFFERENTIAL (06/29/2020) Pathologist Sig nature WBC, External 8.12 [facility] RBC, External 4.99 [facility] Hemoglobin, External 14.5 [facility] HCT, External 46.1 [facility] MCV, External 92.4 [facility] MCH, External 29.1 [facility] MCHC, External 31.5 (A) 32.0 - 36.0 [facility] PLT, External 237 [facility] RDW-CV, External 17.6 (A) 11.8 - 14.1 [facility] Neutrophils, 71.0 [facility] Lymphocytes, 15.8 [facility] Monocytes, External 9.6 [facility] Eosinophils, 2.3 [facility] Basophils, External 0.6 [facility] ABS Neutrophils, 5.76 [facility] ABS Lymphs, External 1.28 [facility] ABS Monocytes, 0.78 [facility] ABS Eosinophils, 0.19 [facility] ABS Basophils, 0.05 [facility] Specimen Blood - Venous blood (substance) Performing Organization Address City/State/ZIP Code Phon e Number [facility] documented in this encounter Visit Diagnoses Not on filedocumented in this encounter Care Teams Data Analytics Specialist Relationship Specialty Start Date End Date Layne Cai MD PCP - General 04/05/20 [address] [place] [phone] documented as of this encounter
--- OUTSIDE RECORDS SUMMARY | 2021-12-21 01:21 | XMS_ITS | Encounter Summary ---
:1945 Author Organization [facility] Address [address] [place] [address] Care Team Providers Name Role Phone Layne Cai MD Primary Care Provider Encounter Details Date Type Department Care Team Description 06/22/[address] [facility] Chawla, Cardiology Clinic 130 [facility] [address] [place] [address] [address] [place] [phone] (Wo rk) Social History Tobacco Use Types [...] and Erin Barillas M D Oncology 111 [facility], [facility] 2 [place] [phone] (Wo rk) 02/14/2022 Office Visit Hematology and Erin Barillas M D Oncology 111 [facility], [facility] 2 [place] [phone] (Wo rk) 04/25/2022 Ancillary Procedure Cardiology 04/25/2022 Office Visit Cardiology Claire Lopez NP 130 [facility] [address] [phone] (Wo rk) 05/13/2022 Office Visit Rheumatology Tod Perez NP 111 [facility], [facility] 5 [place] [phone] (Wo rk) documented as of this encounter Procedures Procedure Name Priority Date/Time Associated Diagnosis Comme nts COVID-19 TESTING Routine 06/22/2020 9:02 EST Resu lts for this procedure are i n the results section. documented in this encounter Results COVID-19 TESTING (06/22/2020 9:02 EST) Performing Lab [place] [facility] () [facility] Comment: [facility] Please indicate the Triage TierT1 Test performed or referred by The [address] [address] COVID-19 rt-PCR Not Detected Negative [facility] Result Comment: [facility] This test has not been FDA cleared or approved. This t est has been authorized by FDA under an EUA for use by authorized laboratories. This test has been authorized only for detection of nucleic acid from 2019-nCoV, not for any other viruses or pathogens. This test is only authoriz ed for the duration of the declaration that circumstances exist justifying the authorization of emergency use of in vitro diagnostic tests for detection and/or diagnosis of 2019-nCoV under section 564(b)(1) of Act, 21 U.S.C ? 360bbb-3(b) (1), unless the authorization is terminate d or revoked sooner. Negative results do not preclude 2019-nCoV infection a nd should not be used as the sole basis for treatment or other patient management decisions. Negative results must be combined with clinical observations, patient history, and epidemiological information. Performed on the One Touch EMR Fusion instrument Specimen Performing Organization Address City/State/ZIP Code Phon e Number [facility] [address] [place] [address] documented in this encounter Visit Diagnoses Not on filedocumented in this encounter Care Teams Participant Administrator Relationship Specialty Start Date End Date Layne Cai MD PCP - General 04/05/[address] [place] [phone] documented as of this encounter
--- OUTSIDE RECORDS SUMMARY | 2021-12-21 01:21 | XMS_ITS | Encounter Summary ---
:1945 Author Organization [facility] Address [address] [place] [address] Care Team Providers Name Role Phone Layne Cai MD Primary Care Provider Claire Lopez WAREHOUSE PULLER Unavailable Tod Perez WAREHOUSE PULLER Unavailable Reason for Visit Reason Onset Date Comments Medications Refill 08/14/2020 Encounter Details Date Type Department Care Team Description 08/14/2020 Refill [facility] Erin Barillas MD Medications Refill Hematology & Oncology - [address] 2 [place], [place] [address] [place] [address] [phone] (Wo rk) Social History Tobacco Use [...] days. polycythemia vera documented in this encounter Plan of Treatment Upcoming Encounters Date Type Specialty Care Team Description 12/27/2021 Office Visit Hematology and Erin Barillas M D Oncology [address] [phone] (Joi rk) 02/14/2022 Office Visit Hematology and Erin Barillas M D Oncology [address] [phone] (Wo rk) 04/25/2022 Ancillary Procedure Cardiology 04/25/2022 Office Visit Cardiology Claire Lopez NP [address] [phone] (Wo rk) 05/13/2022 Office Visit Rheumatology Tod Perez NP [address] [phone] (Wo rk) documented as of this encounter Visit Diagnoses Not on filedocumented in this encounter Discontinued Medications Medication Sig Discontinue Reason Start Date End Date hydroxyurea (HYDREA) 500 Take 1 Cap by Reorder 05/15/2020 mg capsuleIndications: mouth daily for 90 polycythemia vera days. documented as of this encounter Additional Health Concerns Infection Onset Date Last Indicated Resolved Time R/O COVID-19 12/28/2020 12/28/2020 01/02/2021 22:15 EDT documented as of this encounter Care Teams Parts Sales Advisor Relationship Specialty Start Date End Date Layne Cai MD PCP - General 04/05/20 [address] [place] [phone] Claire Lopez NP Cardiovascular Disease 11/22/20 130 [facility] [address] [place] [phone] Tod Perez NP Rheumatology 12/28/[address] [facility], [facility] 5 [place] [phone] documented as of this encounter
--- OUTSIDE RECORDS SUMMARY | 2021-12-21 01:21 | XMS_ITS | Encounter Summary ---
:1945 Author Organization [facility] Address [address] [place] [address] Care Team Providers Name Role Phone Layne Cai MD Primary Care Provider Reason for Visit Reason Onset Date Comments Medications Refill 08/14/2020 Encounter Details Date Type Department Care Team Description 08/14/[address] [facility] Juanjose Perez NP Medications Refill Rheumatology & Immunology [address], [address] [place], [place] [address] [place] [address] [phone] (Wo rk) Social History Tobacco Use [...] Telephone Encounter - Zari Mccabe RN - 08/14/2020 1139 EST From: Praneeth Villanueva To: Office of Tod Perez APRN Sent: 08/14/2020 7:56 EST Subject: Medication Renewal Request Refills have been requested for the following medications: methotrexate 2.5 mg tablet [Tod Perez APRN] [id number] [facility] [address] documented in this encounter Plan of Treatment Upcoming Encounters Date Type Specialty Care Team Description 12/27/2021 Office Visit Hematology and Erin Barillas M D Oncology [address] [place] [phone] (Joi diallo) 02/14/2022 Office Visit Hematology and Erin Barillas M D Oncology [address] [phone] (Joi diallo) 04/25/2022 Ancillary Procedure Cardiology 04/25/2022 Office Visit Cardiology Claire Lopez NP [address] [phone] (Joi diallo) 05/13/2022 Office Visit Rheumatology Tod Perez NP 111 [facility], Level 5 [place] [phone] (Wo rk) documented as of this encounter Visit Diagnoses Diagnosis Inflammation around joint Enthesopathy of unspecified site Encounter for long-term (current) use of medications Encounter for long-term (current) use of other medications documented in this encounter Discontinued Medications Medication Sig Discontinue Reason Start Date End Date methotrexate 2.5 mg Take 10 Tabs by Reorder 06/01/202008/14 tabletIndications: mouth once a week. Inflammation around joint, Encounter for long-term (current) use of medications documented as of this encounter Care Teams Jewelry Sales Relationship Specialty Start Date End Date Layne Cai MD PCP - General 04/05/[address] [place] [phone] documented as of this encounter
--- OUTSIDE RECORDS SUMMARY | 2021-12-21 01:21 | XMS_ITS | Encounter Summary ---
:1945 Author Organization [facility] Address [address] [place] [address] Care Team Providers Name Role Phone Layne Cai MD Primary Care Provider Reason for Visit Reason Comments Other battery depletion Encounter Details Date Type Department Care Team Description 06/27/2020 External Contact [facility] - Andres Chawla Pacemaker battery depletion (Primary Dx); [facility] Cardiology MD Minh Pacemaker; Clinic 130 [facility] Sick sinus syndrome ([facility]) 130 [facility] [address] [place] [address] [place], [place] [phone] Social History Tobacco Use Types Packs/Day [...] Progress Notes Andres Chawla MD - 06/27/2020 2332 EST Operative Note ?? Patient:??Praneeth Villanueva ?? :??1945 ?? Date of service:??06/27/2020 ?? Preoperative diagnosis:??Pacemaker battery depletion, Sinus node dysfunction ?? Postoperative diagnosis:??Pacemaker battery depletion, Sinus node dysfunction ?? Procedure: Single chamber (AAI) pacemaker generator change ? Regional Sales Trainer: Andres Chawla MD ?? Anesthesia/sedation: Local and MAC??(Donato Abel CRNA) ?? Fluids: Per anesthesia protocol ?? Preprocedure antibiotic: Cefazolin??2000mg IV x1? Estimated blood loss:??less than 30 mL ?? Specimens: None ?? Drains: None ?? Complications: None ?? Fluoroscopy: 0.1 minutes ?? Indication for procedure:??Pacemaker??battery depletion ?? HPI:??74-year-old man with history of sinus node dysfunction and single-chamber atrial pacemaker implantation [place] [address] [facility]. He was noted on his last device check that his device had come close to ADEBAYO. He now presents for generator change. ?Procedure in detail: After informed consent was obtained, the patient was brought to the operatingroom in the fasting state??and??was prepped and draped in the usual sterile manner. ??Cefazolin was??given for perioperative infection prophylaxis. ??After timeout the??left??deltopectoral groove region was anesthetized. ??An incision was made??through the previous incision scar and cautiously taken down towards the device.??A Haolianluotronic PlasmaBlade was used to??dissect??around the lead??plug??to freethe device from scar tissue. ??After explanting the device,??the lead was??tested on the external report programmer. ??The??lead measurements were??within normal range??and the??lead plug??was mechanically intact on visual inspection.??The pocket was inspected and hemostasis achieved with the??PlasmaBlade.??The pocket was then copiously irrigated with bacitracin solution. ??The leads??were??attached to the new device and tight fit??and serial numbers??were??verified. ??The incision was then closed with 3 layers of suture. ??The deepest layer was continuous vertical mattress suture using 2-0 Biosyn, the mid layer was continuous horizontal mattress sutureThe system was placed in the pocket, verifying proper location of the lead with fluoroscopy. The incision was closed with a deep Continuous vertical mattress suture using 2-0 Biosyn. The mid layer with a continuous horizontal mattress suture using 3-0 Biosyn and the superficial layer was continuous horizontal mattress suture using 4-0 Biosyn. ??The skinwas closed with Dermabond skin glue and covered with a pressure dressing. ?? Programming: The device was programmed in??AAIR??mode with a lower rate of??60/min,??upper rate 130/min,??output??2.75V at 0.4ms.?Sensitivity was set to 0.45??mV.? Implanted hardware: 1. ??New Device: Medtronic??Leora S MRI,??[id number], serial number??[id number] 2. ??Right Atrial lead:??Medtronic 5076, 52cm, serial# [id number],??implanted?? 04/09/2012??to the??RA,??pacing threshold??0.5at 0.5ms, impedance??503??ohms,??P??wave??8.6??mV. Explanted device: Pacemaker Medtronic Sensia SR, SESR01, serial number??[id number],??implanted??04/09/2012. ?? Summary: ??1.??Successful??pacemaker generator change for battery depletion. ??2. As the Medtronic 5076 lead was approved MRI conditional, the pacemaker system is now MRI approved by FDA. ?? CPT 55095 ?? Andres Chawla MD documented in this encounter Plan of Treatment Upcoming Encounters Date Type Specialty Care Team Description 12/27/2021 Office Visit Hematology and Erin Barillas M D Oncology [address] [phone] (Wo rk) 02/14/2022 Office Visit Hematology and Erin Barillas M D Oncology [address] [place] [phone] (Wo rk) 04/25/2022 Ancillary Procedure Cardiology 04/25/2022 Office Visit Cardiology Claire Lopez , FESTUS 130 [facility] [address] [phone] (Wo rk) 05/13/2022 Office Visit Rheumatology Tod Perez NP [address] [phone] (Wo rk) documented as of this encounter Visit Diagnoses Diagnosis Pacemaker battery depletion - Primary Fitting and adjustment of cardiac pacema ker Pacemaker Cardiac pacemaker in situ Sick sinus syndrome (HCC-CMS) (HCC) Sinoatrial node dysfunction documented in this encounter Care Teams Microsoft Bi Architect Relationship Specialty Start Date End Date Layne Cai MD PCP - General 04/05/[address] [place] [phone] documented as of this encounter
--- OUTSIDE RECORDS SUMMARY | 2021-12-21 01:21 | XMS_ITS | Encounter Summary ---
:1945 Author Organization [facility] Address [address] [place] [address] Care Team Providers Name Role Phone Layne Cai MD Primary Care Provider Reason for Visit Reason Onset Date Comments Medications Refill 2020 Encounter Details Date Type Department Care Team Description 2020 Refill [facility] Juanjose Perez NP Medications Refill Rheumatology & Immunology [address], [address] [place], [place] [address] [place] [address] [phone] (Wo rk) Social History Tobacco Use [...] Sig Dispensed Refills Start Date End Date folic acid (FOLVITE) 1 mg Take 1 Tab by mouth 90 Tab 3 0 2020 09/20/2020 tabletIndications: daily. Inflammation around joint, Encounter for long-term (current) use of medications documented in this encounter Plan of Treatment Upcoming Encounters Date Type Specialty Care Team Description 12/27/2021 Office Visit Hematology and Erin Barillas M D Oncology [address] [place] [phone] (Wo rk) 02/14/2022 Office Visit Hematology and Erin Barillas M D Oncology [address] [place] [phone] (Wo rk) 04/25/2022 Ancillary Procedure Cardiology 04/25/2022 Office Visit Cardiology Claire Lopez NP [address] [place] [phone] (Wo rk) 05/13/2022 Office Visit Rheumatology Tod Perez NP [address] [phone] (Wo rk) documented as of this encounter Visit Diagnoses Diagnosis Inflammation around joint Enthesopathy of unspecified site Encounter for long-term (current) use of medications Encounter for long-term (current) use of other medications documented in this encounter Discontinued Medications Medication Sig Discontinue Reason Start Date End Date folic acid (FOLVITE) 1 mg Take 1 Tab by Reorder 09/23/2019 0 2020 tabletIndications: mouth daily. Inflammation around joint, Encounter for long-term (current) use of medications documented as of this encounter Care Teams Warranty Manager Relationship Specialty Start Date End Date Layne Cai MD PCP - General 04/05/20 26 [place] [phone] documented as of this encounter
--- OUTSIDE RECORDS SUMMARY | 2021-12-21 01:21 | XMS_ITS | Encounter Summary ---
:1945 Author Organization [facility] Address [address] [place] [address] Care Team Providers Name Role Phone Layne Cai MD Primary Care Provider Reason for Referral Prior Authorization (Routine/Next Available) - Authorized Specialty Diagnoses / Procedures Referred By Contact Refer red To Contact Infusion Therapy Diagnoses Polycythemia vera (HCC) Reshma Hilario, INDUCTION BRAZER [facility] [address] [place] [address] [address] [place] [address] [facility] Level 2 [place], [place] Fax: [phone] Referral ID Status Reason Start Expiration Visits Visits Date Date Requested Authorized [id number] Authorized Specialty 07/27/2020 1 1 Services Required Question Answer Is this appt for transfusion, medication, test or inje ction? Procedure Type of procedure? Therapeutic phlebotomy Have orders been place for this appt? (i.e.: Blood Tra nsfusion No Order Set, Therapy Plan, Lab Orders, Supportive Plan, Etc) Encounter Details Date Type Department Care Team Description 07/27/2020 Orders Only [facility] Andre Polycythem ia vera Hematology & Oncology TRAM Cuellar (HCC-C MS) (Primary Dx) - [address] [id number] Social History Tobacco Use Types Packs/Day Years [...] and Erin Barillas M D Oncology [address] [phone] (Wo rk) 02/14/2022 Office Visit Hematology and Erin Barillas M D Oncology [address] [phone] (Wo rk) 04/25/2022 Ancillary Procedure Cardiology 04/25/2022 Office Visit Cardiology Claire Lopez NP 130 [facility] [address] [phone] (Wo rk) 05/13/2022 Office Visit Rheumatology Tod Perez NP [address] [phone] (Wo rk) Scheduled Referrals Name Type Priority Associated Diagnoses Order S chedule AMB CONS/FOLLOW UP Outpatient Referral Routine Polycythemia ve ra Expected: INFUSION ([facility]) 08/03/2020 documented as of this encounter Visit Diagnoses Diagnosis Polycythemia vera (HCC) - Primary documented in this encounter Care Teams Etl Analyst Developer Relationship Specialty Start Date End Date Layne Cai MD PCP - General 04/05/[address] [place] [phone] documented as of this encounter
--- OUTSIDE RECORDS SUMMARY | 2021-12-21 01:21 | XMS_ITS | Encounter Summary ---
:1945 Author Organization [facility] Address [address] [place] [address] Care Team Providers Name Role Phone Layne Cai MD Primary Care Provider Reason for Visit Reason Onset Date Comments Results 05/15/2020 Encounter Details Date Type Department Care Team Description 05/15/[address] [facility] Cancer Center Erin Barillas MD Results Hematology & Oncology - 111 [facility], [address], [address] [place], [place] [phone] [place] [phone] (Wo rk) Social History Tobacco Use Types [...] encounter Miscellaneous Notes Telephone Encounter - Chikis Ji RN - 05/15/2020 0937 EST Received copy of Praneeth's lab results collected on 05/01/2020 at [facility]. I entered Praneeth's lab results from 04/19/20 and 05/01/20. I advised Praneeth's Augustina that I will send the results to Dr. Barillas so she can determine his Hydrea dosing. Augustina said Praneeth is currently taking Hydrea 500 mg daily. Also received a Hydrea refill request - will forward this request for Dr. Barillas to sign and/or change as needed. ------- Addendum 05/15/2020 at 1444: Spoke with Dr. Barillas - she wants Praneeth to continue Hydrea 500 mg daily and she refilled the Hydrea rxrequest. Outgoing call made to Praneeth's Augustina, I relayed the above information and she is agreeable and understanding. elephone Encounter - Jose GJeannette - 05/15/2020 0827 EST Patients calling for the results of patients labs done at [facility] from 2 weeks ago. documented in this encounter Plan of Treatment Upcoming Encounters Date Type Specialty Care Team Description 12/27/2021 Office Visit Hematology and Erin Barillas M D Oncology [address] [place] [phone] (Joi diallo) 02/14/2022 Office Visit Hematology and Erin Barillas M D Oncology [address] [phone] (Wo rk) 04/25/2022 Ancillary Procedure Cardiology 04/25/2022 Office Visit Cardiology Claire Lopez , [facility] [address] [place] [phone] (Wo rk) 05/13/2022 Office Visit Rheumatology Tod Perez, FESTUS 111 [facility], [address] [place] [phone] (Wo rk) documented as of this encounter Procedures Procedure Name Priority Date/Time Associated Diagnosis Comme nts COMPLETE BLOOD COUNT AND Routine 05/01/2020 Res ults for this DIFFERENTIAL procedure are i n the results section . COMPREHENSIVE METABOLIC Routine 05/01/2020 Resu lts for this PANEL (CMP) procedure are i n the results section . COMPLETE BLOOD COUNT AND Routine 04/19/2020 Res ults for this DIFFERENTIAL procedure are i n the results section . COMPREHENSIVE METABOLIC Routine 04/19/2020 Resu lts for this PANEL (CMP) procedure are i n the results section . documented in this encounter Results COMPREHENSIVE METABOLIC PANEL (CMP) (05/01/2020) Pathologist Sig nature GFR, Calculated, External 59.44 [facility] Glucose, Serum, External 126 [facility] ARE Albumin, External 4.1 [facility] Total Alkaline Phosphatase, 68 [facility] External ALT, External 26 [facility] AST, External 28 [facility] BUN, External 18 [facility] Calculated Calcium, [facility] External Calcium, External 8.6 [facility] Chloride, External 105 [facility] CO2, External 26.2 [facility] Creatinine, External 1.19 [facility] Fasting?, External [facility] Potassium, External 4.3 [facility] Sodium, External 139 [facility] Total Protein, External 7.2 [facility] RE Bilirubin, Total, External 0.6 [facility] Specimen Blood - Venous blood (substance) Performing Organization Address City/State/[facility] Code Phon e Number [facility] COMPLETE BLOOD COUNT AND DIFFERENTIAL (05/01/2020) Pathologist Sig nature WBC, External 5.93 [facility] RBC, External 4.52 [facility] Hemoglobin, External 14.6 [facility] HCT, External 44.7 [facility] MCV, External 98.9 [facility] MCH, External 32.3 [facility] MCHC, External 32.7 [facility] PLT, External 257 [facility] RDW-CV, External 14.8 [facility] Neutrophils, External 73.8 [facility] Lymphocytes, External 18.0 [facility] Monocytes, External 4.9 [facility] Eosinophils, External 2.5 [facility] Basophils, External 0.5 [facility] ABS Neutrophils, External 4.37 [facility] ABS Lymphs, External 1.07 [facility] ABS Monocytes, External 0.29 [facility]INT [facility] RE ABS Eosinophils, External 0.15 [facility] ABS Basophils, External 0.03 [facility]INT [facility] RE Specimen Blood - Venous blood (substance) Performing Organization Address City/[facility] Phon e Number [facility] COMPREHENSIVE METABOLIC PANEL (CMP) (04/19/2020) Pathologist Sig nature GFR, Calculated, External 53.20 [facility] Glucose, Serum, External 138 [facility]INT [facility] C ARE Albumin, External 4.2 [facility] Total Alkaline Phosphatase, 75 [facility] External ALT, External 23 [facility] AST, External 17 [facility] BUN, External 21 [facility] Calculated Calcium, [facility] External Calcium, External 8.9 [facility] Chloride, External 104 [facility] CO2, External 27.6 [facility] Creatinine, External 1.31 [facility] Fasting?, External [facility] Potassium, External 4.5 [facility] Sodium, External 141 [facility] Total Protein, External 6.9 [facility] POINT OF CA RE Bilirubin, Total, External 0.5 [facility] Specimen Blood - Venous blood (substance) Performing Organization Address City/State/[facility] Code Phon e Number [facility] COMPLETE BLOOD COUNT AND DIFFERENTIAL (04/19/2020) Pathologist Sig nature WBC, External 7.43 [facility] RBC, External 4.45 [facility] Hemoglobin, External 14.4 [facility] HCT, External 44.1 [facility] MCV, External 99.1 [facility] MCH, External 32.4 [facility] MCHC, External 32.7 [facility] PLT, External 282 [facility] RDW-CV, External 15.2 [facility] Neutrophils, External 70.4 [facility] Lymphocytes, External 19.1 [facility] Monocytes, External 6.9 [facility] Eosinophils, External 2.0 [facility] Basophils, External 0.8 [facility] ABS Neutrophils, External 5.23 [facility] ABS Lymphs, External 1.42 [facility] ABS Monocytes, External 0.51 [facility] POINT [facility] RE ABS Eosinophils, External 0.15 [facility] ABS Basophils, External 0.06 [facility] POINT OF CA RE Specimen Blood - Venous blood (substance) Performing Organization Address City/[facility] Phon e Number [facility] documented in this encounter Visit Diagnoses Not on filedocumented in this encounter Care Teams Sales Effectiveness Manager Relationship Specialty Start Date End Date Layne Cai MD PCP - General 04/05/[address] [place] [phone] documented as of this encounter
--- OUTSIDE RECORDS SUMMARY | 2021-12-21 01:21 | XMS_ITS | Encounter Summary ---
:1945 Author Organization [facility] Address [address] [place] [address] Care Team Providers Name Role Phone Layne Cai MD Primary Care Provider Reason for Visit (Routine) - Authorization Not Required Specialty Diagnoses / Procedures Referred By Contact Refer red To Contact Diagnoses Pacemaker Claire Lopez NP Procedures CARDIAC IMPLANT CHECK - IN CLINIC [address] [place] [phone] Referral ID Status Reason Start Expiration Visits Visits Date Date Requested Authorized [id number] Authorization Not 1 1 Required 9 Encounter Details Date Type Department Care Team Description 05/19/2020 Ancillary Procedure [facility] Cardiology Clinic [address] [place] [phone] Social History Tobacco Use Types Packs/Day [...] and Erin Barillas M D Oncology [address] [phone] (Wo rk) 02/14/2022 Office Visit Hematology and Erin Barillas M D Oncology [address] [place] [phone] (Wo rk) 04/25/2022 Ancillary Procedure Cardiology 04/25/2022 Office Visit Cardiology Claire Lopez , FESTUS 130 [facility] [address] [phone] (Wo rk) 05/13/2022 Office Visit Rheumatology Tod Perez NP [address] [phone] (Wo rk) documented as of this encounter Visit Diagnoses Not on filedocumented in this encounter Orders Implantable Cardiac Device Count Last Ordered Date Fir st Ordered Date CARDIAC IMPLANT CHECK - IN CLINIC 1 11/18/2019 documented in this encounter Care Teams Billet Header Relationship Specialty Start Date End Date Layne Cai MD PCP - General 04/05/[address] [place] [phone] documented as of this encounter
--- OUTSIDE RECORDS SUMMARY | 2021-12-21 01:21 | XMS_ITS | Encounter Summary ---
:1945 Author Organization [facility] Address [address] [place] [address] Care Team Providers Name Role Phone Layne Cai MD Primary Care Provider Reason for Visit Reason Comments Pacemaker/Device Check Medtronic Encounter Details Date Type Department Care Team Description 07/25/2020 Office Visit [facility] Jessica, Pacemaker (Primary Dx); - [facility] Cardiology FESTUS Rangel Sick sinus syndrome (HCC-CMS); Clinic 130 [facility] Essential hypertension; 130 [facility] [address] [place] [address] [place] [phone] Social History Tobacco Use Types Packs/Day [...] Sign Reading Time Taken Comments Blood Pressure 122/70 07/25/2020 0946 EST Pulse 61 07/25/2020 0946 EST Temperature - - Respiratory Rate - - Oxygen Saturation 97% 07/25/2020 0946 EST Inhaled Oxygen Concentration - - Weight 105 kg (231 lb 6.4 oz) 07/25/2020 0946 EST Height 181.6 cm (5' 11.5) 07/25/2020 0946 EST Body Mass Index 31.82 07/25/2020 0946 EST documented in this encounter Functional Status [...] as of this encounter Progress Notes Claire Lopez, BATSHEVA - 07/25/2020 1015 EST Cardiology Clinic Note 07/25/20 10:08 Presenting complaint: Pacemaker/Device Check (Medtronic) CHASITY Dacosta is a pleasant 74 yo with multiple medical co-morbidities including inflammatory polyarthropathytreated with methotrexate, hx benign neoplasm of the colon, polycythemia vera, GERD, BPH, stage III CKD, HLD, NATALIE, HTN, sinus node dysfunction s/p single chamber pacemaker with recent generator change with Dr Chawla 06/27/2020. Overall he reports feeling well from a cardiac perspective. Has no specific complaints or concerns to offer. Believes that his pacer insertion site has healed well. Since having his device change out he has noticed improved sleep and his CPAP machine is reading better O2 satsthroughout the night. Has remained physically active and denies exertional symptoms. Systems review A 10 point review of [...] once a week. 120 Tab 3 ??? methotrexate, PF, (RASUVO, PF,) 25 mg/0.5 mL auto-injector Inject 25 mg into the skin once a week. (Patient not taking: Reported on 07/25/2020) 12 Syringe 1 ??? 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 General - A/Ox3, no acute distress [...] intact Peripheral neurology - no focal deficits [facility] Cardiology Device Visit Negative Restorer: Medtronic Device Type: Single chamber pacemaker Service: Office Visit Implant Date: 04/09/2012 Indication: Bradycardia Battery Longevity: 11 years Underlying rhythm: bradycardia, SND Mode: VVIR URL/LRL: 130/60 bpm Atrial Paced: 96% Lead [...] program values with analysis, review, and report. LABS Lab Results Component Value Date WBC 8.98 12/06/2019 HGB 14.3 05/19/2020 HCT 58.4 (H) 12/06/2019 MCV 97.5 (H) 05/19/2020 PLT 243 05/19/2020 Lab Results Component Value Date CREATININE 1.06 05/19/2020 CREATININEEX 1.29 07/06/2020 Lab Results Component Value Date NA 138 05/19/2020 K 4.5 05/19/2020 KEXT 4.6 07/06/2020 CL 102 05/19/2020 CLEXT 105 07/06/2020 CO2 28 05/19/2020 CO2EXT 26.8 07/06/2020 Lab Results Component Value Date TSH 0.38 09/15/2013 Lab Results Component Value Date HGBA1C 6.0 04/08/2012 Lab Results Component Value Date CHOL 111 04/08/2012 HDL 22 04/08/2012 LDLBASE 66 04/08/2012 TRIG 117 04/08/2012 CHOLHDL 5.0 04/08/2012 1. Pacemaker Device functioning normally with ample generator remaining. No arrhythmias. Pacemaker site appears well approximated and is without signs of infection. 2. Sick sinus syndrome (HCC-CMS) S/p single chamber pacemaker. 3. Essential hypertension Good BP control on current regimen, no changes. Reinforced lifestyle modification through diet, limiting sodium intake, regular activity and maintaining a healthy weight. 4. Hypercholesteremia Continue statin. Reinforced lifestyle modification through diet, limiting sodium intake, regular activity and maintaining a healthy weight. Claire Lopez NP [facility] Cardiology documented in this encounter Plan of Treatment Upcoming Encounters Date Type Specialty Care Team Description 12/27/2021 Office Visit Hematology and Erin Barillas M D Oncology [address] [phone] (Wo rk) 02/14/2022 Office Visit Hematology and Erin Barillas M D Oncology [address] [phone] (Wo rk) 04/25/2022 Ancillary Procedure Cardiology 04/25/2022 Office Visit Cardiology Claire Lopez NP 130 [facility] [address] [place] [phone] (Wo rk) 05/13/2022 Office Visit Rheumatology Tod Perez NP 111 [facility] [address] [place] [phone] (Wo rk) documented as of this encounter Visit Diagnoses Diagnosis Pacemaker - Primary Cardiac pacemaker in situ Sick sinus syndrome (HCC-CMS) (HCC) Sinoatrial node dysfunction Essential hypertension Unspecified essential hypertension Hypercholesteremia Pure hypercholesterolemia documented in this encounter Care Teams Treating Machine Operator Relationship Specialty Start Date End Date Layne Cai MD PCP - General 04/05/[address] [place] [phone] documented as of this encounter
--- OUTSIDE RECORDS SUMMARY | 2021-12-21 01:21 | XMS_ITS | Encounter Summary ---
:1945 Author Organization [facility] Address [address] [place] [address] Care Team Providers Name Role Phone Layne Cai MD Primary Care Provider Reason for Referral Medication Prior Authorization (Routine) - Authorized Specialty Diagnoses / Procedures Referred By Contact Refer red To Contact Pharmacy Diagnoses History of seronegative inflammatory arthritis Encounter for long-term (current) use of medications Tod Perez, [facility] [address] [facility] e [address] [place] [address] [place], [address] [place], [place] Fax: [phone] Referral ID Status Reason Start Expiration Visits Visits Date Date Requested Authorized [id number] Authorized Medication Prior 06/01/20 1 1 Authorization 20 Question Answer Medication to be Prior Authorized: methotrexate pen 25 mg sc weeklyk, otrexup or rasuvo, pt has hard time to make a tight fist, will likely have hard time w ith needles Comments The purpose of this consult request is t o inform the scheduling staff that a medication needs to be prior-authorized before it is prescribed and/or administered. Reason for Visit Reason Comments Follow-up doing well Encounter Details Date Type Department Care Team Description 06/01/2020 Office Visit [facility] Tod Perez Hi story of seronegative inflammatory arthritis (Primary Dx); Rheumatology & SURGICAL NURSE Encounter for long-term (current) use of medications; Immunology - Main [address] [place] Inflamma tion around [facility] [address] [place] [address] [facility] [place] [phone] (Wo rk) Social History Tobacco Use Types [...] Sign Reading Time Taken Comments Blood Pressure 140/80 06/01/2020 1011 EST Pulse 72 06/01/2020 1011 EST Temperature - - Respiratory Rate - - Oxygen Saturation - - Inhaled Oxygen Concentration - - Weight 101.6 kg (224 lb) 06/01/2020 1011 EST Height 181.6 cm (5' 11.5) 06/01/2020 1011 EST Body Mass Index 30.81 06/01/2020 1011 EST documented in this encounter Functional Status [...] Patient Instructions Patient InstructionsTod Perez APRN - 06/01/2020 10:30 EST 1 increase methotrexate to 10 tabs orally weekly 2. Folic acid 1mg If you get oral or nasal sores, GI upset, diarrhea, feeling unwell around methotrexate day, please call to increase your folic acid Please do LFTs - given external order I don't need need CMP or CBC this time. Maintenance is every 3-4 months Please do CMP ( which includes liver enzymes) and cbc for methotrexate every 3-4 months Could try oboz, or SHERIE- for allen wool compression stockings [place] going to [place] for methotrexate injectable pen, if pen denies we can offer methotrexate needle and vial 5 can do pen or needle teaching over zoom 6/ f/u 3-4 months in person documented in this encounter Ordered Prescriptions Prescription Sig Dispensed Refills Start Date End Date methotrexate 2.5 mg Take 10 Tabs by 120 Tab 3 06/01/2020 08/14/2020 tabletIndications: mouth once a week. Inflammation around joint, Encounter for long-term (current) use of medications documented in this encounter Progress Notes Tod Perez APRN - 06/01/2020 1030 EST Images from the original note were not included. Patient ID: Deon Villanueva is a 74 y.o. y.o. male Subjective: Chief Complaint: Follow-up (doing well) HPI: ?? Pertinent Rheumatological History: 1. Seronegative [...] to improvement of symptoms - Travelled to [place] including [facility]. Able to ambulate without difficulty. - [...] swelling. Was in a 5th meng in [place] at that time. new dx around 04/2019 of polycythemia: elevated RBC and hemoglobin Had repeat labs at [facility] 05/2019 PCP was suppose to set up NPV with hematology at [facility] - they have not heard from PCP [...] Jun 2705/2021 scheduled for pacer battery replacement Denies any other joint pains or swelling. [...] is as documented in Prism. Objective: BP 140/80 (BP Cuff Location: Left arm, BP Patient Position: Sitting) Pulse 72 Ht 181.6 cm (71.5) Wt (!) 101.6 kg (224 lb) BMI 30.81 kg/m?? General: No acute distress. Alert, fully oriented, pleasant, conversant. HEENT: Conjunctivae/corneas clear. Pupils equal, Sclerae anicteric. Mucus membranes moist; oropharynx clear. Neck supple, symmetrical, trachea midline Lungs: Clear to auscultation bilaterally. Heart: Regular rate and rhythm, S1, S2 present, no murmur Abdomen: Soft, non-tender, non-distended. Extremities: Extremities without cyanosis, 3+ pitting edema bilaterally Skin: Clear Musculoskeletal: Spine: No significant tenderness. Normal range of motion of the spine. Shoulder/Elbow: No significant tenderness, swelling, effusions, erythema or warmth is present. Appropriate range of motion present. Wrist/Hand: very mild swelling bilateral wrist, no pain right 3rd pip minimial swelling, pain with making tight fist, decreased flexion/extension of wrist L>R No significant tenderness, swelling, effusions, erythema or warmth is present. Appropriate range of motion present. Hips/Knee: No significant tenderness, or erythema or warmth is present. Appropriate range of motion present. Ankle/Foot: In nylon stockings with mild compression which stop at mid foot, making assessment for edema vs joint swelling. Swelling vs edema posterior ankles difficult No significant tenderness, swelling, effusions, erythema or warmth is present. Appropriate range of motion present. LABS: RResults for DEON VILLANUEVA ( ) as of 06/01/2020 10:18 Ref. Range 05/19/2020 15:25 Sodium Latest Ref [...] - 3.3 10e3/ul 1.3 [place] [facility] [place]est Ref Range: 0.1 - 0.8 10e3/uL 0.7 [place] # [place] [facility] [place] Latest Ref Range: 0.03 - 0.61 10e3/ul 0.16 BASO # [place] [facility] [place] Latest Ref Range: 0.01 - 0.11 10e/uL [...] 135 05/10/2014 ?? C4 27 05/10/2014 ?? [facility]: 11/18/18: CBC with differential: CBC = 9.9 [...] Status: Final result ?Visible to patient: Yes (MyHealth Online) Next appt: 05/25/2018 at 11:40 inRheumatology (Sudhir Rosales MD) Order: [id number] ? 1yr ago ?? Pathology Report: SURGICAL PATHOLOGY REPORT Reports generated via electronic interface contain original data; however they are lacking the format of the original report. Caution should be taken when reading/interpreting unformatted reports. Name: ? DEON VILLANUEVA ? Accession #: ? [id number] ? : ? 1945 (Age: 71) ??M ?Collect Date: ? 10/23/2016 ? Location: ? [facility] ? Receive Date: ? 10/24/2016 ? Provider: SHREYA LEA MD Copy to: MINDY SZYMANSKI [facility] ? Final Pathologic Diagnosis: A. ??GASTROESOPHAGEAL [...] Status: Final result ?Visible to patient: Yes (Revinate) Next appt: 05/25/2018 at 11:40 inRheumatology (Sudhir Rosales MD) Order: [id number] ? 1yr ago ?? Pathology Report: SURGICAL PATHOLOGY REPORT Reports generated via electronic interface contain original data; however they are lacking the format of the original report. Caution should be taken when reading/interpreting unformatted reports. Name: ? DEON VILLANUEVA ? Accession #: ? [id number] ? : ? 1945 (Age: 71) ??M ?Collect Date: ? 10/23/2016 ? Location: ? [facility] ? Receive Date: ? 10/24/2016 ? Provider: SHREYA LEA MD Copy to: MINDY SZYMANSKI [facility] ? Final Pathologic Diagnosis: A. ??GASTROESOPHAGEAL [...] 7:55 AM ?XR CHEST 2 VIEWS (Order [id number]) Status: Final result (Exam End: 05/19/2020 16:15) Results XR CHEST 2 VIEWS ( (Order [id number]) XR CHEST 2 VIEWS Order: [id number] Status: Final result ?Visible to patient: Yes (MyChart) Next appt: None Details Reading Physician Reading Date Result Priority Dustin Ibrahim MD [phone] 05/19/2020 Narrative & Impression EXAM: RADIOLOGY/CHEST PA [...] 0 Interpretation: Near Remission ASSESSMENT: 1.Inflammator arthritis active but improved at MTX 9 tabs, still some mild swelling bilateral wrists, painful and not fully able to make tight fist. He also has swelling vs edema to feet and ankles. His is working to get correct compression stocking pressure from PCP. Once pressure is know, could also try allen wool compression stockings if desired. I increased MTX to 10 tabs, but would liketo switch him to MTX 25mg Sc pen. I do not think he will be able to do needles due to his hands. PA placed for MTX 25mg sc pen- brand does not matter 2 up to date on labs Labs up to date from cardiology but missing LFTs He is suppose to get his pacer batter replaced Jun and will need LFT labs for MTX, Given ext order to do through PCP maintenance labs every 3-4 months 4. Polycythemia vera -followed by Dr. Barillas Hematology/Oncology On hydrea and aspirin 81mg. Not needing phlebotomy at this time as CBC and abs neutrophils normalized Encounter Diagnoses Name Primary? History of seronegative inflammatory arthritis Yes ??? Encounter for long-term (current) use of medications ??? Inflammation around joint PLAN: 1 increase methotrexate to 10 tabs orally weekly 2. Folic acid 1mg If you get oral or nasal sores, GI upset, diarrhea, feeling unwell around methotrexate day, please call to increase your folic acid Please do LFTs - given external order I don't need need CMP or CBC this time. Maintenance is every 3-4 months Please do CMP ( which includes liver enzymes) and cbc for methotrexate every 3-4 months Could try oboz, or SHERIE- for allen wool compression stockings [place] going [place] for [place]otrexate injectable pen, if pen denies we can offer methotrexate needle and vial 5 can do pen or needle teaching over zoom 6/ f/u 3-4 months in person 1. History of seronegative inflammatory arthritis HEPATIC FUNCTION PANEL (ALB,ALK PHOS,ALT,AST,DBIL,TOT LAVELLE,TOT PROT) AMB MEDICATION PRIOR AUTHORIZATION 2. Encounter for long-term (current) use of medications HEPATIC FUNCTION PANEL (ALB,ALK PHOS,ALT,AST,DBIL,TOT LAVELLE,TOT PROT) AMB MEDICATION PRIOR AUTHORIZATION methotrexate 2.5 mg tablet 3. Inflammation around joint methotrexate 2.5 mg tablet Orders Placed This Encounter Procedures ??? Hepatic Function Panel (Alb,Alk Phos,ALT,AST,DBIL,Tot LAVELLE,Tot PROT) Standing Status: Future Standing Expiration Date: 06/01/2021 ??? Ambulatory Medication Prior Authorization The purpose of this consult request is to inform the scheduling staff that a medication needs to beprior-authorized before it is prescribed and/or administered. Standing Status: Future Referral Priority: Routine Referral Type: Medication Prior Authorization Referral Reason: Medication Prior Authorization Number of Visits Requested: 1 Barriers to learning identified: No Patient verbalizes understanding and agrees with plan Yes I was directly supervised by: Dr. Rosales They were present in clinic and available for consult if needed. Tod Perez APRN 06/01/2020 11:04 documented in this encounter Plan of Treatment Upcoming Encounters Date Type Specialty Care Team Description 12/27/2021 Office Visit Hematology and Eirn Barillas M D Oncology [address] [phone] (Joi diallo) 02/14/2022 Office Visit Hematology and Erin Barillas M D Oncology 111 [facility] 2 [place] [address] (Joi diallo) 04/25/2022 Ancillary Procedure Cardiology 04/25/2022 Office Visit Cardiology Claire Lopez NP 130 [facility] [address] [phone] (Joi diallo) 05/13/2022 Office Visit Rheumatology Tod Perez NP 111 [facility], [address] [place] [address] (Wo rk) Scheduled Referrals Name Type Priority Associated Diagnoses Order S chedule AMB MEDICATION PRIOR Outpatient Routine History of Expecte d: AUTHORIZATION Referral seronegative 06/01/2020 inflammatory (Approximate) arthritis Encounter for long-term (current) use of medications documented as of this encounter Visit Diagnoses Diagnosis History of seronegative inflammatory art hritis - Primary Encounter for long-term (current) use of medications Encounter for long-term (current) use of other medications Inflammation around joint Enthesopathy of unspecified site documented in this encounter Discontinued Medications Medication Sig Discontinue Reason Start Date End Date methotrexate 2.5 mg Take 9 Tabs by Reorder 05/29/20202019 tabletIndications: mouth once a week. Inflammation around joint, Encounter for long-term (current) use of medications documented as of this encounter Care Teams Certified Physical Therapist Assistant Relationship Specialty Start Date End Date Layne Cai MD PCP - General 04/05/[address] [place] [phone] documented as of this encounter
--- OUTSIDE RECORDS SUMMARY | 2021-12-21 01:22 | XMS_ITS | Encounter Summary ---
:1945 Author Organization [facility] Address [address] [place] [address] Care Team Providers Name Role Phone Dereck Schultz MD Primary Care Provider [phone] Reason for Visit Reason Onset Date Comments Coordination Of Care 12/30/2019 Encounter Details Date Type Department Care Team Description 12/30/2019 Telephone [facility] Chikis Ji [facility] Hematology & Oncology - Main [place] [address] [place], [place] [id number] Social History Tobacco Use Types Packs/Day Years [...] been in contact with No / Unsure 12/28/2019 12:44 EDT someone who was confirmed or suspected [...] Telephone Encounter - Chikis Ji RN - 12/30/[address] Barillas, Praneeth needs weekly therapeutic phlebotomies until his Hct <45, and Praneeth needs CBCD/CMP labs done prior to each TP. I scheduled Praneeth for lab dependent weekly therapeutic phlebotomies through 02/15/2020 on Shep 4. Praneeth will continue to get his weekly labs done at [facility] the day prior to each scheduled therapeutic phlebotomy. Standing CBCD/CMP orders are already in place at [facility] - I called the lab today and they confirmed the standing orders are valid until December 2020. Praneeth and his are aware of the TP appts via [employer]. documented in this encounter Plan of Treatment Upcoming Encounters Date Type Specialty Care Team Description 12/27/2021 Office Visit Hematology and Erin Barillas M D Oncology [address] [place] [phone] (Joi diallo) 02/14/2022 Office Visit Hematology and Erin Barillas M D Oncology [address] [place] [phone] (Joi diallo) 04/25/2022 Ancillary Procedure Cardiology 04/25/2022 Office Visit Cardiology Claire Lopez NP 130 [facility] [address] [place] [phone] (Joi rk) 05/13/2022 Office Visit Rheumatology Tod Perez NP 111 [facility] 5 [place] [address] (Wo rk) documented as of this encounter Visit Diagnoses Not on filedocumented in this encounter Care Teams Local Announcer Relationship Specialty Start Date End Date Dereck Schultz MD PCP - General 04/07/19 04/04/[address] [place] [phone] documented as of this encounter
--- OUTSIDE RECORDS SUMMARY | 2021-12-21 01:22 | XMS_ITS | Encounter Summary ---
:1945 Author Organization [facility] Address [address] [place] [address] Care Team Providers Name Role Phone Dereck Schultz MD Primary Care Provider [phone] Reason for Visit Reason Comments Follow-up Encounter Details Date Type Department Care Team Description 12/06/2019 Office Visit [facility] Cancer Center Erin Barillas MD Polycythemia vera Hematology & [address] [place] [address] ([facility]) (Pr imary Oncology - [facility] Dx) [facility], [address], [address] [place], [place] [address] [place] [address] [phone] (Wo rk) Social History Tobacco Use [...] been in contact with No / Unsure 12/06/2019 11:42 EDT someone who was confirmed or suspected to have Coronavirus / COVID-19? documented as of this encounter Last Filed Vital Signs Vital Sign Reading Time Taken Comments Blood Pressure 165/74 12/06/2019 1036 EDT Pulse 63 12/06/2019 1036 EDT Temperature 36.3 ??C (97.3 ??F) 12/06/2019 1036 EDT Respiratory Rate 16 12/06/2019 1036 EDT Oxygen Saturation 98% 12/06/2019 1036 EDT Inhaled Oxygen Concentration - - Weight 100 kg (220 lb 8 oz) 12/06/2019 1036 EDT Height - - Body Mass Index 30.75 05/11/2019 1458 EST documented in this encounter Functional Status [...] encounter Progress Notes Erin Barillas MD - 12/06/2019 1030 EDT This was an in person visit Subjective: Chief Complaint Patient presents [...] Referred to Hematology for evaluation of polycythemia. Interval Visit: Reports having occasional episodes of dizziness while bending down. Reports difficulty closing his left hand due to pain. Denies any difficulty breathing or cough. No chest pain or palpitations. No headaches or dizziness. Denies any significant pain on swelling in upper or lower extremities. No other complaints today. Has not as yet started taking Hydrea. 12 point ROS performed with pertinent positives [...] States that he spent the winter in [place] and noted that his fingers would turn red and get cold very easily. Denies any epistaxis, gum bleeding or easy bruising. Patient denies any history of blood clots. 12 point ROS performed with pertinent positives and negatives as documented in HPI and ROS summary below. Social history: Retired. Worked for the [employer]. Former smoker with 20 pack year smoking [...] education level: None Occupational History ??? None Social Needs ??? Financial resource strain: None ??? Food insecurity: Worry: None Inability: None ??? Transportation needs: Medical: None Non-medical: None Tobacco Use ??? Smoking status: Former Smoker Packs/day: 3.00 Years: 20.00 Pack years: 60.00 Types: Cigarettes, Cigars Last attempt to quit: 09/15/1980 Years since quittin.2 ??? Smokeless tobacco: Never Used ? ? Tobacco comment: Quit >30 years ago Substance and Sexual Activity ??? Alcohol use: Yes Comment: Occasional beer ??? Drug use: No ??? Sexual activity: None Lifestyle ??? Physical activity: Days per week: None Minutes per session: None ??? Stress: None Relationships ??? Social connections: Talks on phone: None Gets together: None Attends christianity service: None Active member of club or organization: None Attends meetings of clubs or organizations: None Relationship status: None ??? Intimate partner violence: Fear of current or ex partner: None Emotionally abused: None Physically abused: None Forced sexual activity: None Other Topics Concern ??? 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 Allergies Allergen Reactions ??? Lisinopril Causes chest pain. ? Myocardial bridging Review of Systems Neurological: Positive for dizziness. - See HPI Objective: BP (!) 165/74 Pulse 63 Temp 36.3 ??C (97.3 ??F) (Tympanic) Resp 16 Wt 100 kg (220 lb 8 oz) SpO2 98% BMI 30.75 kg/m?? ECOG Performance Status: 0 Physical Exam Constitutional: He is oriented to person, place, and time. He appears well- developed and well-nourished. No distress. HENT: Head: Atraumatic. Nose: Nose normal. Eyes: Pupils are equal, round, and reactive to light. EOM are normal. Neck: Normal range of motion. Neck supple. Cardiovascular: Normal rate, regular rhythm and normal heart sounds. Pulmonary/Chest: Effort normal and breath sounds normal. No respiratory distress. He has no wheezes. Abdominal: Soft. He exhibits no distension. There is no tenderness. Musculoskeletal: Normal range of motion. He exhibits edema (Trace pedal edema). He exhibits no tenderness. Varicose veins noted in bilateral LE Lymphadenopathy: He has no cervical adenopathy. Neurological: He is alert and oriented to person, place, and time. Skin: Skin is warm and dry. He is not diaphoretic. Psychiatric: He has a normal mood and affect. Thought content normal. Vitals reviewed. Labs: Complete Blood Count Lab Results Component Value Date WBC 8.98 12/06/2019 RBC 6.97 (H) 12/06/2019 HGB 17.8 (H) 12/06/2019 HCT 58.4 (H) 12/06/2019 MCV 84 12/06/2019 MCH 25.5 (L) 12/06/2019 MCHC 30.5 (L) 12/06/2019 PLT 551 (H) 12/06/2019 MPV 11.1 12/06/2019 RDWCV 23.2 (H) 12/06/2019 Differential (Absolute) Lab Results Component Value Date DIFFTYPE Auto 12/06/2019 NEUTROABS 6.74 12/06/2019 LYMPHSABS 1.41 12/06/2019 MONOSABS 0.48 12/06/2019 EOSABS 0.26 12/06/2019 BASOSABS 0.04 03/29/2015 Basic Metabolic Panel Lab Results Component Value Date NA 138 12/06/2019 K 4.9 12/06/2019 CL 102 12/06/2019 CO2 30 12/06/2019 BUN 24 12/06/2019 CREATININE 1.09 12/06/2019 CALCGFR 66 12/06/2019 CALCIUM 9.6 12/06/2019 CALCCA 9.4 12/06/2019 Gastrointestinal Lab Results Component Value Date ALKPHOS [...] would increase risk of cardiovascular complications. Plan: 1.Will plan to proceed with phlebotomy to maintain Hct <45. Will also initiate Hydroxyurea. We discussed the risks and benefits of phlebotomy including but not limited to cardiovascular complications. We also discussed the risks of Hydroxyurea including but not limited to mucocutaneous ulcerations,fatigue and low blood counts leading to an increased risk of infections, fatigue and bleeding. Patient expresses understanding and is agreeable to proceeding with treatment. 2. Will plan to schedule for phlebotomy x weekly for now until Hct <45. Also prescribed Hydroxyurea 500mg oral BID. May need to adjust dose to ensure that Hct <45 but WBC >3000. Check weekly labs. 3. Continue low-dose Aspirin 81mg daily. 4. Noted to have an elevated BP in clinic today. Patient does not recall what medication he takes athome for this. As per records is on Metoprolol but unclear if a recent change was made in his BP medications. Will follow up and contact PCP regarding adjusting medications. I explained the above findings to the patient who is agreeable to this course of action. Thank you for this referral. Diagnoses and all orders for this visit: Polycythemia vera ([facility]) Erin Barillas MD documented in this encounter Plan of Treatment Upcoming Encounters Date Type Specialty Care Team Description 12/27/2021 Office Visit Hematology and Erin Barillas M D Oncology 111 [facility] 2 [place] [phone] (Wo rk) 02/14/2022 Office Visit Hematology and Erin Barillas M D Oncology 111 [facility] 2 [place] [phone] (Wo rk) 04/25/2022 Ancillary Procedure Cardiology 04/25/2022 Office Visit Cardiology Claire Lopez NP 130 [facility] [address] [place] [phone] (Wo rk) 05/13/2022 Office Visit Rheumatology Tod Perez NP 111 [facility], [facility] 5 [place] [address] (Wo rk) documented as of this encounter Visit Diagnoses Diagnosis Polycythemia vera (HCC) - Primary documented in this encounter Care Teams Broomcorn Scraper Relationship Specialty Start Date End Date Dereck Schultz MD PCP - General 04/07/19 04/04/20 [address] [place] [phone] documented as of this encounter
--- OUTSIDE RECORDS SUMMARY | 2021-12-21 01:22 | XMS_ITS | Encounter Summary ---
:1945 Author Organization [facility] Address [address] [place] [address] Care Team Providers Name Role Phone Dereck Schultz MD Primary Care Provider [phone] Reason for Visit Reason Onset Date Comments Labs Only 01/10/2020 Encounter Details Date Type Department Care Team Description 01/10/2020 Telephone [facility] Cancer Center Hematology & [facility] hawa rodarte RN Labs Only Oncology - Main [facility] [address] [place] [address], [place] [phone] Social History Tobacco Use Types Packs/Day Years [...] Telephone Encounter - Chikis Ji RN - 01/10/2020 9767 EDT Entered external lab results from [facility]. Labs collected on 01/10/2020. documented in this encounter Plan of Treatment Upcoming Encounters Date Type Specialty Care Team Description 12/27/2021 Office Visit Hematology and Erin Barillas M D Oncology [address] [place] [phone] (Wo rk) 02/14/2022 Office Visit Hematology and Erin Barillas M D Oncology [address] [phone] (Wo rk) 04/25/2022 Ancillary Procedure Cardiology 04/25/2022 Office Visit Cardiology Claire Lopez NP [address] [place] [phone] (Wo rk) 05/13/2022 Office Visit Rheumatology Tdo Perez NP 111 [facility], [address] [phone] (Wo rk) documented as of this encounter Procedures Procedure Name Priority Date/Time Associated Diagnosis Comme nts COMPLETE BLOOD COUNT AND Routine 01/10/2020 Res ults for this DIFFERENTIAL procedure are i n the results section . COMPREHENSIVE METABOLIC Routine 01/10/2020 Resu lts for this PANEL (CMP) procedure are i n the results section . documented in this encounter Results COMPLETE BLOOD COUNT AND DIFFERENTIAL (01/10/2020) Pathologist Sig nature WBC, External 4.03 [facility] RBC, External 4.96 [facility] Hemoglobin, External 14.0 [facility] HCT, External 44.1 [facility] MCV, External 88.9 [facility] MCH, External 28.2 [facility] MCHC, External 31.7 [facility] PLT, External 175 [facility] RDW-CV, External 25.6 [facility] Neutrophils, External 68.2 [facility] Lymphocytes, External 25.6 [facility] Monocytes, External 4.5 [facility] Eosinophils, External 1.0 [facility] Basophils, External 0.5 [facility] ABS Neutrophils, External 2.75 [facility] ABS Lymphs, External 1.03 [facility] ABS Monocytes, External 0.18 [facility] Eosinophils, External 0.04 [facility] ABS Basophils, External 0.02 [facility] Specimen Blood - Venous blood (substance) Performing Organization Address City/State/ZIP Code Phon e Number [facility] POINT OF CARE [facility] COMPREHENSIVE METABOLIC PANEL (CMP) (01/10/2020) Pathologist Sig nature GFR, Calculated, External >=60 [facility] Glucose, Serum, External 114 [facility] Albumin, External 3.8 [facility] Total Alkaline Phosphatase, 59 [facility] External ALT, External 28 [facility] AST, External 28 [facility] BUN, External 23 [facility] Calculated Calcium, [facility] CARE [facility] External Calcium, External 8.7 [facility] Chloride, External 106 [facility] CO2, External 26.0 [facility] Creatinine, External 1.02 [facility] Fasting?, External [facility] Potassium, External 4.3 [facility] Sodium, External 140 [facility] Total Protein, External 6.4 [facility] Bilirubin, Total, External 0.6 [facility] Specimen Blood - Venous blood (substance) Performing Organization Address City/State/ZIP Code Phon e Number [facility] POINT OF CARE POINT [facility] CARE [facility] documented in this encounter Visit Diagnoses Not on filedocumented in this encounter Care Teams Clinical Academic Allergist Relationship Specialty Start Date End Date Dereck Schultz MD PCP - General 04/07/19 04/04/[address] [place] [phone] documented as of this encounter
--- OUTSIDE RECORDS SUMMARY | 2021-12-21 01:22 | XMS_ITS | Encounter Summary ---
:1945 Author Organization [facility] Address [address] [place] [address] Care Team Providers Name Role Phone Dereck Schultz MD Primary Care Provider [phone] Reason for Visit Reason Onset Date Comments Results 01/18/2020 Encounter Details Date Type Department Care Team Description 01/18/2020 Telephone [facility] Cancer [facility] Erin Barillas MD Results Hematology & Oncology - 111 [facility], [address], [address] [place], [place] [phone] [place] [phone] (Wo rk) Social History Tobacco Use Types [...] Notes Telephone Encounter - Augustina Salazar - 01/18/2020 0843 EDT LABS ENTERED FROM [facility]. documented in this encounter Plan of Treatment Upcoming Encounters Date Type Specialty Care Team Description 12/27/2021 Office Visit Hematology and Erin Barillas M D Oncology [address] [place] [address] 2 [place] [phone] (Joi diallo) 02/14/2022 Office Visit Hematology and Erin Barillas M D Oncology 111 [facility] 2 [place] [phone] (Joi diallo) 04/25/2022 Ancillary Procedure Cardiology 04/25/2022 Office Visit Cardiology Claire Lopez NP [address] [facility] [address] [place] [phone] (Wo rk) 05/13/2022 Office Visit Rheumatology Tod Perez NP 111 [facility], [facility] 5 [place] [address] (Wo rk) documented as of this encounter Procedures Procedure Name Priority Date/Time Associated Diagnosis Comme nts COMPREHENSIVE METABOLIC Routine 12/20/2019 Resu lts for this PANEL (ONCOLOGY USE procedur e are in the ONLY-INC MG) results section . COMPLETE BLOOD COUNT AND Routine 12/20/2019 Res ults for this DIFFERENTIAL procedure are i n the results section . documented in this encounter Results (ABNORMAL) COMPREHENSIVE METABOLIC PANEL (ONCOLOGY USE ONLY-INC MG) (12/20/2019) Pathologist Sig nature Calcium, External 8.8 [facility] CO2, External 24.6 [facility] AST, External 32 [facility] ALT, External 35 [facility] Bilirubin, Total, 0.4 [facility] Creatinine, External 1.01 [facility] Calculated Calcium, [facility] Anion Gap, External [facility] Total Protein, 6.5 [facility] Potassium, External 4.8 [facility] Total Alkaline 73 [facility] Phosphatase, [facility] Albumin, External 3.8 [facility] BUN, External 18 [facility] GFR, Calculated, 60 [facility] Fasting?, External [facility] Chloride, External 105 [facility] Glucose, Serum, 131 (A) 74 - 106 [facility] Sodium, External 139 [facility] Magnesium, External [facility] Specimen Blood - Venous blood (substance) Performing Organization Address City/State/ZIP Code Phon e Number [facility] (ABNORMAL) COMPLETE BLOOD COUNT AND DIFFERENTIAL (12/20/2019) Pathologist Sig nature WBC, External 6.07 [facility] RBC, External 5.93 [facility] Hemoglobin, External 15.9 [facility] HCT, External 50.3 (A) 40.0 - 50.0 [facility] MCV, External 84.8 [facility] MCH, External 26.8 (A) 27.0 - 33.0 [facility] MCHC, External 31.6 (A) 32.0 - 36.0 [facility] PLT, External 365 [facility] RDW-CV, External 23.6 (A) 11.8 - 14.1 [facility] Neutrophils, 76.7 [facility] Lymphocytes, 15.2 [facility] Monocytes, External 5.6 [facility] Eosinophils, 2.0 [facility] Basophils, External 0.3 [facility] ABS Neutrophils, 4.66 [facility] ABS Lymphs, External 0.92 (A) 1.2 - 3.4 [facility] ABS Monocytes, 0.34 [facility] ABS Eosinophils, 0.12 [facility] ABS Basophils, 0.02 [facility] Specimen Blood - Venous blood (substance) Performing Organization Address City/State/ZIP Code Phon e Number [facility] documented in this encounter Visit Diagnoses Not on filedocumented in this encounter Care Teams Asset Protection Representative Relationship Specialty Start Date End Date Dereck Schultz MD PCP - General 04/07/19 04/04/[address] [place] [phone] documented as of this encounter
--- OUTSIDE RECORDS SUMMARY | 2021-12-21 01:22 | XMS_ITS | Encounter Summary ---
:1945 Author Organization [facility] Address [address] [place] [address] Care Team Providers Name Role Phone Dereck Schultz MD Primary Care Provider [phone] Reason for Visit Reason Onset Date Comments Follow-up 12/27/2019 Encounter Details Date Type Department Care Team Description 12/27/2019 Telephone [facility] Cancer Center Hematology & Ga[facility] hawa meyers RN Follow-up Oncology - [facility] [address] [place], [place] [phone] Social History Tobacco Use Types Packs/Day Years [...] been in contact with No / Unsure 12/21/2019 13:54 EDT someone who was confirmed or suspected [...] Telephone Encounter - Chikis Ji RN - 12/28/[address] Barillas entered the Hydrea prescription. Outgoing call made to Praneeth. I notified Praneeth that the Hydrea prescription has been sent to [facility] - he verbalized understanding. elephone Encounter - Chikis Ji RN - 12/27/2019 1409 EDT Received copy of Praneeth's lab results collected today at [facility]. Reviewed results with Dr. Barillas - she recommends Praneeth continue Hydrea 500 mg PO TID, and that Praneeth needs to continue with the previously arranged therapeutic phlebotomy that is scheduled for tomorrow 12/28/2019. I called Praneeth and his Augustina answered. I relayed the above information and she verbalized understanding. Per Augustina, Praneeth has enough Hydrea pills until the evening of Fri12/29/2019, so she is requesting a prescription be sent to the [facility] pharmacy in [facility]. I entered the Hydrea prescription and routed to Dr. Barillas for review and signature. documented in this encounter Plan of Treatment Upcoming Encounters Date Type Specialty Care Team Description 12/27/2021 Office Visit Hematology and Erin Barillas M D Oncology [address] [place] [phone] (Wo rk) 02/14/2022 Office Visit Hematology and Erin Barillas M D Oncology [address] [phone] (Wo rk) 04/25/2022 Ancillary Procedure Cardiology 04/25/2022 Office Visit Cardiology Claire Lopez NP 130 [facility] [address] [address] [place] [phone] (Wo rk) 05/13/2022 Office Visit Rheumatology Tod Perez NP 111 [facility], [address] [place] [phone] (Wo rk) documented as of this encounter Visit Diagnoses Diagnosis Polycythemia vera (HCC) - Primary documented in this encounter Care Teams Manufacturing Maintenance Manager Relationship Specialty Start Date End Date Dereck Schultz MD PCP - General 04/07/19 04/04/20 [address] [place] [phone] documented as of this encounter
--- OUTSIDE RECORDS SUMMARY | 2021-12-21 01:22 | XMS_ITS | Encounter Summary ---
:1945 Author Organization [facility] Address [address] [place] [address] Care Team Providers Name Role Phone Dereck Schultz MD Primary Care Provider [phone] Encounter Details Date Type Department Care Team Description 12/15/2019 Hospital Encounter [facility] [address] [place], [place] [phone] Social History Tobacco Use Types Packs/Day Years [...] Sign Reading Time Taken Comments Blood Pressure 152/72 12/15/2019 1535 EDT Pulse 60 12/15/2019 1535 EDT Temperature 36.7 ??C (98.1 ??F) 12/15/2019 1535 EDT Respiratory Rate 18 12/15/2019 1535 EDT Oxygen Saturation 97% 12/15/2019 1535 EDT Inhaled Oxygen Concentration - - Weight [...] (HYDREA) 500 Take 1 Cap by mouth 60 Cap 0 12/26/2019 mg capsule 2 times daily for 30 days. ibuprofen (MOTRIN) 200 mg Take 200 mg by 0 12/15/2020 tablet mouth every 6 hours as needed for Pain. methotrexate 2.5 mg Take 6 Tabs by 72 Tab 1 12/02/2019 0 03/02/2020 tabletIndications: mouth once a week. Inflammation around joint, Encounter for long-term (current) use of medications predniSONE (DELTASONE) 5 Take 1 Tab by mouth 25 Tab 0 03/02/2020 mg tablet daily. 5mg daily x 14-21 then taper to 2.5 mg x 7 days simvastatin (ZOCOR) 40 mg Take 40 mg by mouth 0 11/09/2020 tablet every evening. documented as of this encounter Discharge Disposition Disposition Code Departure Means Destination Home or Self Care documented in this encounter Progress Notes Savannah Nunez RN - 12/15/2019 1430 EDT Therapeutic phlebotomy performed per protocol. Peripheral IV placed. Blood collection bag attached and unclamped. Tourniquet released after blood began to flow. 450 ml blood withdrawn over 30 Minutes. Order called for 250 ML NS post Therapeutic phlebotomy 15:00--250 ml NS infusion initiated 15:30 NS infusion completed Patient encouraged to increase po fluids before, during and after Therapeutic Phlebotomy procedure. Patient tolerated procedure. Pressure dressing applied. Post Therapeutic phlebotomy instructions reviewed with patient. No heavy lifting with the arm the IV was placed in for the next 6-8 hours to prevent bleeding. Increase fluids over next two days. Dressing clean dry and intact upon discharge. documented in this encounter Plan of Treatment Upcoming Encounters Date Type Specialty Care Team Description 12/27/2021 Office Visit Hematology and Erin Barillas M D Oncology [address] [phone] (Joi diallo) 02/14/2022 Office Visit Hematology and Erin Barillas M D Oncology [address] [phone] (Joi diallo) 04/25/2022 Ancillary Procedure Cardiology 04/25/2022 Office Visit Cardiology Claire Lopez NP 130 [facility] [address] [place] [phone] (Joi diallo) 05/13/2022 Office Visit Rheumatology Tod Perez NP 111 [facility] 5 [place] [address] (Joi diallo) documented as of this encounter Visit Diagnoses Not on filedocumented in this encounter Care Teams Dumper Bulk System Relationship Specialty Start Date End Date Dereck Schultz MD PCP - General 04/07/19 04/04/20 [facility] [place] [phone] documented as of this encounter
--- OUTSIDE RECORDS SUMMARY | 2021-12-21 01:22 | XMS_ITS | Encounter Summary ---
:1945 Author Organization [facility] Address [address] [place] [address] Care Team Providers Name Role Phone Dereck Schultz MD Primary Care Provider [phone] Reason for Visit Reason Comments Telemedicine Video Visit Encounter Details Date Type Department Care Team Description 02/10/2020 Telemedicine [facility] Cancer Center Erin Barillas MD Polycythemia vera Hematology & [address] [place] [address] ([facility]) [facility], [address], [address] [place], [place] [address] [place] [address] [phone] (Wo rk) Social History Tobacco Use [...] encounter Progress Notes Erin Barillas MD - 02/10/2020 1000 EDT The concept of ???Telemedicine?? has been [...] Patient presents with ??? Telemedicine Video Visit HPI Mr. Villanueva is a pleasant 74 year old gentleman with past medical history of Hypertension, Hyperlipidemia, Arthritis (followed by Dr. Rosales), currently on weekly oral Methotrexate and folicacid supplements, BPH, history of sinus bradycardia and Type 2 sinoatrial exit block, s/p pacemaker placement and varicose veins. 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 Interval Visit: Hydrea held given significant neutropenia, now resolving. Patient reports losing ~ 7 lbs of weight over the past month. However, states that he has put back 4lbs. No changes in appetite. Occasional headaches and dizziness but no loss of consciousness. No vision changes reported. Denies any dyspnea at rest or with exertion. No chest pain. No palpitations. No nausea/vomiting/abdominal pain/changes in bowel habits. No blood in stool or urine. No fever/chills or night sweats. No dysuria/hematuria. No rashes. No epistaxis/gum bleeding. No easy bruising reported. No other complaints offered today. 12 point ROS performed with pertinent [...] States that he spent the winter in [place] and noted that his fingers would turn red and get cold very easily. Denies any epistaxis, gum bleeding or easy bruising. Patient denies any history of blood clots. 12 point ROS performed with pertinent positives and negatives as documented in HPI and ROS summary below. Social history: Retired. Worked for the [employer]. Former smoker with 20 pack year smoking [...] ??? Financial resource strain: None ??? Food insecurity Worry: None Inability: None ??? Transportation needs Medical: None Non-medical: None Tobacco Use ??? Smoking status: Former Smoker Packs/day: 3.00 Years: 20.00 Pack years: 60.00 Types: Cigarettes, Cigars Quit date: 09/15/1980 Years since quittin.4 ??? Smokeless tobacco: Never Used ? ? Tobacco comment: Quit >30 years ago Substance and Sexual Activity ??? Alcohol use: Yes Comment: Occasional beer ??? Drug use: No ??? Sexual activity: None Lifestyle ??? Physical activity Days per week: None Minutes per session: None ??? Stress: None Relationships ??? Social connections Talks on phone: None Gets together: None Attends hindu service: None Active member of club or organization: None Attends meetings of clubs or organizations: None Relationship status: None ??? Intimate partner violence Fear of current or ex partner: None Emotionally abused: None Physically abused: None Forced sexual activity: None Other Topics Concern ??? 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 acyclovir (ZOVIRAX) 400 mg tablet ??? aspirin 81 mg EC tablet ??? finasteride (PROSCAR) 5 mg tablet ??? fluconazole (DIFLUCAN) 200 mg tablet ??? folic acid (FOLVITE) 1 mg tablet ??? ibuprofen (MOTRIN) 200 mg tablet ??? levOFLOXacin (LEVAQUIN) 500 mg tablet ??? methotrexate 2.5 mg tablet ??? metoprolol XL (TOPROL-XL) 25 mg tablet ??? omeprazole (PRILOSEC) 40 mg capsule ??? predniSONE (DELTASONE) 5 mg tablet ??? simvastatin (ZOCOR) 40 mg tablet No current facility-administered medications for this visit. Allergies Allergen Reactions ??? Lisinopril Causes chest pain. ? Myocardial bridging Review of Systems Neurological: Positive for dizziness. - See HPI Objective: There were no vitals taken for this visit. ECOG Performance Status: 0 Labs: CBC shows resolving neutropenia Labs ordered, reviewed and interpreted by me [...] increase risk of cardiovascular complications. Plan: 1. Hydrea on hold given neutropenia. Continue weekly CBC until neutropenia resolves. Will reinitiateHydrea at 500mg daily at that time. Hct <45 so will hold off on [...] of action. I spent a total of 40 minutes with Praneeth Villanueva today and 40 minutes of that time was spent in counseling and coordination of care as described in the progress note. Erin Barillas MD documented in this encounter Plan of Treatment Upcoming Encounters Date Type Specialty Care Team Description 12/27/2021 Office Visit Hematology and Erin Barillas M D Oncology [address] [phone] (Wo rk) 02/14/2022 Office Visit Hematology and Erin Barillas M D Oncology [address] [place] [phone] (Wo rk) 04/25/2022 Ancillary Procedure Cardiology 04/25/2022 Office Visit Cardiology Claire Lopez , FESTUS 130 [facility] [address] [phone] (Wo rk) 05/13/2022 Office Visit Rheumatology Tod Perez NP [address] [phone] (Wo rk) documented as of this encounter Visit Diagnoses Diagnosis Polycythemia vera (HCC) - Primary documented in this encounter Care Teams Clinic Business Manager Relationship Specialty Start Date End Date Dereck Schultz MD PCP - General 04/07/19 04/04/20 [address] [place] [phone] documented as of this encounter
--- OUTSIDE RECORDS SUMMARY | 2021-12-21 01:22 | XMS_ITS | Encounter Summary ---
:1945 Author Organization [facility] Address [address] [place] [address] Care Team Providers Name Role Phone Dereck Schultz MD Primary Care Provider [phone] Reason for Visit Laboratory Services (Routine) - Order Cancelled Specialty Diagnoses / Procedures Referred By Contact Refer red To Contact Diagnoses Encounter for long-term (current) use of medications Arthritis Sudhir Rosales MD Procedures COMPLETE BLOOD COUNT AND DIFFERENTIAL 111 [facility], Level 5 [place] [address] Referral ID Status Reason Start Date Expiration Date Visits V isits Requested Authorized [id number] Order 12/07/2018 1 1 Cancelled Encounter Details Date Type Department Care Team Description 12/06/2019 Phlebotomy Only [facility] ED Center 2 Linux Systems Analyst, Acc Encoun ter for long- term (current) use of medications; Phlebotomy Phlebotomy Arthritis; 111 [facility] Inflammation around joint; [place], [place] Polycythemia; [address] Polycythemia vera ([facility]) [phone] Social History Tobacco Use Types Packs/Day Years [...] and Erin Barillas M D Oncology [address] [address] (Wo rk) 02/14/2022 Office Visit Hematology and Erin Barillas M D Oncology [address] [phone] (Wo rk) 04/25/2022 Ancillary Procedure Cardiology 04/25/2022 Office Visit Cardiology Claire Lopez NP 130 [facility] 21 [place] [address] (Wo rk) 05/13/2022 Office Visit Rheumatology Tod Perez NP [address] [phone] (Wo rk) documented as of this encounter Procedures Procedure Name Priority Date/Time Associated Diagnosis Comme nts ERYTHROPOIETIN Routine 12/06/2019 9:26 Polycythemia Results fo r this EDT procedure are i n the results section. COMPLETE BLOOD COUNT STAT 12/06/2019 9:26 Polycythemia vera Results for this AND DIFFERENTIAL EDT ([facility]) procedure a re in the results section. COMPREHENSIVE STAT 12/06/2019 9:26 Polycythemia vera Result s for this METABOLIC PANEL (CMP) EDT ([facility]) proced ure are in the results section. documented in this encounter Results (ABNORMAL) COMPLETE BLOOD COUNT AND DIFFERENTIAL (12/06/2019 9:26 EDT) WBC 8.98 4.00 - 10.40 [facility] LABORATORY SERVICES RBC 6.97 (H) 4.36 - 5.78 [facility] LABORATORY SERVICES Hemoglobin 17.8 (H) 13.8 - 17.3 [facility] gm/dL LABORATORY SERVICES HCT 58.4 (H) 39.5 - 50.2 % [facility] LABORATORY SERVICES MCV 84 81 - 95 fl [facility] LABORATORY SERVICES MCH 25.5 (L) 27.6 - 33.0 pg [facility] LABORATORY SERVICES Hypochromia 1+ [facility] LABORATORY SERVICES MCHC 30.5 (L) 32.8 - 36.4 [facility] gm/dL LABORATORY SERVICES RDW-CV 23.2 (H) <14.2 % [facility] LABORATORY SERVICES RDW-SD 66.3 (H) <46.0 fl [facility] LABORATORY SERVICES Anisocytosis 2+ [facility] LABORATORY SERVICES PLT 551 (H) 141 - 377 K/[facility] LABORATORY SERVICES MPV 11.1 9.5 - 12.7 fl [facility] LABORATORY SERVICES Neutrophils 75.1 % [facility] LABORATORY SERVICES Lymphocytes 15.7 % [facility] LABORATORY SERVICES Monocytes 5.3 % [facility] LABORATORY SERVICES Eosinophils 2.9 % [facility] LABORATORY SERVICES Basophils 0.6 % [facility] LABORATORY SERVICES Immature Grans 0.4 % [facility] LABORATORY SERVICES Absolute Neutrophils 6.74 2.20 - 8.85 [facility] LABORATORY SERVICES Absolute Lymphocytes 1.41 1.09 - 3.30 [facility] LABORATORY SERVICES Absolute Monocytes 0.48 0.10 - 0.80 [facility] LABORATORY SERVICES Absolute Eosinophils 0.26 0.03 - 0.61 [facility] K/cm LABORATORY SERVICES Absolute Basophils 0.05 0.01 - 0.11 [facility] K/[facility] LABORATORY SERVICES Absolute Immature 0.04 0.00 - 0.06 [facility] Grans K/[facility] LABORATORY SERVICES Type of Differential: Auto [facility] LABORATORY SERVICES Specimen Blood - Venous blood (substance) Performing Organization Address [facility] Phon e Number [facility] LABORATORY [address] [place] [address] SERVICES (ABNORMAL) COMPREHENSIVE METABOLIC PANEL (CMP) (12/06/2019 9:26 EDT) Sodium 138 136 - 145 [facility] mEq/L [facility] Potassium 4.9 3.5 - 5.0 [facility] mEq/L [facility] Chloride 102 96 - 110 [facility] mEq/L [facility] CO2 Total 30 22 - 32 mEq/L [facility] LABORATORY SERVICES Glucose 111 (H) 70 - 100 [facility] mg/dL [facility] BUN 24 10 - 26 mg/dL [facility] LABORATORY SERVICES Creatinine 1.09 0.66 - 1.25 [facility] mg/dL [facility] eGFR 66Comment: eGFR >60 [facility] calculated using mL/min/1.73m2 CENTER LABORATORY CKD-EPI equation SERVICES for non- Americans. Multiply eGFR by 1.16 for patients. Total Protein 7.1 6.3 - 8.2 [facility] g/dL [facility] Albumin 4.3 3.4 - 4.9 [facility] g/dL [facility] Alkaline 68 38 - 126 U/L [facility] Phosphatase [facility] AST 26 15 - 46 U/L [facility] LABORATORY SERVICES ALT 16 <50 U/L [facility] LABORATORY SERVICES Bilirubin, Total <0.5 <1.4 mg/dL [facility] LABORATORY SERVICES Calcium 9.6 8.5 - 10.5 [facility] mg/dL [facility] Calculated Calcium 9.4 8.5 - 10.5 [facility] mg/dL [facility] Specimen Blood - Venous blood (substance) Performing Organization Address [facility] Phon e Number [facility] LABORATORY [address] [place] [address] SERVICES (ABNORMAL) ERYTHROPOIETIN (12/06/2019 9:26 EDT) Erythropoietin (EPO), 1.4 (L) 2.6 - 18.5 [facility] Comment: mIU/mL LABORATORIES Test Performed by: [facility] [address] [place] [address] Preboarder: Shiv Bhatia M.D. Ph.D.; CLIA# [id number] Specimen Blood - Venous blood (substance) Performing Organization Address City/State/ZIP Code Phon e Number [facility] [address] [place] [address] documented in this encounter Visit Diagnoses Diagnosis Encounter for long-term (current) use of medications Encounter for long-term (current) use of other medications Arthritis Arthropathy, unspecified, site unspecifi ed Inflammation around joint Enthesopathy of unspecified site Polycythemia Polycythemia vera Polycythemia vera (HCC) documented in this encounter Care Teams Pen Maker Relationship Specialty Start Date End Date Dereck Schultz MD PCP - General 04/07/19 04/04/20 4 [facility] [address] documented as of this encounter
--- OUTSIDE RECORDS SUMMARY | 2021-12-21 01:22 | XMS_ITS | Encounter Summary ---
:1945 Author Organization [facility] Address [address] [place] [address] Care Team Providers Name Role Phone Dereck Schultz MD Primary Care Provider Reason for Visit Reason Onset Date Comments Results 01/24/2020 Encounter Details Date Type Department Care Team Description 01/24/2020 Telephone [facility] Erin Barillas MD Results Hematology & Oncology - 111 [facility], [address], [address] [place], [place] [id number] [place] [phone] (Wo rk) Social History Tobacco Use Types [...] Notes Telephone Encounter - Augustina Salazar - 01/24/2020 1324 EDT LABS ENTERED FROM [facility]. documented in this encounter Plan of Treatment Upcoming Encounters Date Type Specialty Care Team Description 12/27/2021 Office Visit Hematology and Erin Barillas M D Oncology [address] [place] [address] 2 [place] [address] (Joi diallo) 02/14/2022 Office Visit Hematology and Erin Barillas M D Oncology 111 [facility] 2 [place] [address] (Joi diallo) 04/25/2022 Ancillary Procedure Cardiology 04/25/2022 Office Visit Cardiology Claire Lopez NP 130 [facility] [address] [place] [address] (Wo rk) 05/13/2022 Office Visit Rheumatology Tod Perez NP 111 [facility], [facility] 5 [place] [address] (Wo rk) documented as of this encounter Procedures Procedure Name Priority Date/Time Associated Diagnosis Comme nts COMPREHENSIVE METABOLIC Routine 01/24/2020 Resu lts for this PANEL (ONCOLOGY USE procedur e are in the ONLY-INC MG) results section . COMPLETE BLOOD COUNT AND Routine 01/24/2020 Res ults for this DIFFERENTIAL procedure are i n the results section . documented in this encounter Results (ABNORMAL) COMPREHENSIVE METABOLIC PANEL (ONCOLOGY USE ONLY-INC MG) (01/24/2020) Pathologist Sig nature Calcium, External 8.9 [facility] CO2, External 25.6 [facility] AST, External 18 [facility] ALT, External 21 [facility] Bilirubin, Total, 0.6 [facility] Creatinine, External 1.10 [facility] Calculated Calcium, [facility] Anion Gap, External [facility] Total Protein, 6.5 [facility] Potassium, External 4.9 [facility] Total Alkaline 72 [facility] Phosphatase, [facility] LAB Albumin, External 3.7 [facility] BUN, External 20 (A) 7 - 18 [facility] GFR, Calculated, 60 [facility] Fasting?, External [facility] Chloride, External 105 [facility] Glucose, Serum, 128 (A) 74 - 106 [facility] Sodium, External 141 [facility] Magnesium, External [facility] Specimen Blood - Venous blood (substance) Performing Organization Address City/State/ZIP Code Phon e Number [facility] (ABNORMAL) COMPLETE BLOOD COUNT AND DIFFERENTIAL (01/24/2020) Pathologist Sig nature WBC, External 2.57 (A) 4.4 - 10.8 [facility] RBC, External 4.36 [facility] Hemoglobin, External 13.3 (A) 13.5 - 17.5 [facility] HCT, External 41.2 [facility] MCV, External 94.5 [facility] MCH, External 30.5 [facility] MCHC, External 32.3 [facility] PLT, External [facility] RDW-CV, External 26.2 (A) 11.8 - 14.1 [facility] Neutrophils, 53.2 [facility] Lymphocytes, 31.5 [facility] Monocytes, External 12.1 [facility] Eosinophils, 1.6 [facility] Basophils, External 1.2 [facility] ABS Neutrophils, 1.37 [facility] ABS Lymphs, External 0.81 (A) 1.2 - 3.4 [facility] ABS Monocytes, 0.31 [facility] ABS Eosinophils, 0.04 [facility] ABS Basophils, 0.03 [facility] Specimen Blood - Venous blood (substance) Performing Organization Address City/State/ZIP Code Phon e Number [facility] documented in this encounter Visit Diagnoses Not on filedocumented in this encounter Care Teams Housing Counselor Relationship Specialty Start Date End Date Dereck Schultz MD PCP - General 04/07/19 04/04/[address] [place] [address] documented as of this encounter
--- OUTSIDE RECORDS SUMMARY | 2021-12-21 01:22 | XMS_ITS | Encounter Summary ---
:1945 Author Organization [facility] Address [address] [place] [address] Care Team Providers Name Role Phone Dereck Schultz MD Primary Care Provider [phone] Layne Cai MD Primary Care Provider Reason for Visit Reason Onset Date Comments Appointment Related 02/09/2020 Encounter Details Date Type Department Care Team Description 02/09/2020 Telephone [facility] Cancer Center Erin Barillas MD Appointment Related Hematology & Oncology [address] [place], [place] [address] [place] [address] [phone] (Wo rk) Social History Tobacco Use [...] this encounter Miscellaneous Notes Telephone Encounter - Elly Martinez MA - 02/09/2020 1054 EDT Called to pre-chart for 02/[address] Barillas. No answer. Will try again later. documented in this encounter Plan of Treatment Upcoming Encounters Date Type Specialty Care Team Description 12/27/2021 Office Visit Hematology and Erin Barillas M D Oncology [address] [address] (Joi diallo) 02/14/2022 Office Visit Hematology and Erin Barillas M D Oncology [address] [address] (Joi diallo) 04/25/2022 Ancillary Procedure Cardiology 04/25/2022 Office Visit Cardiology Claire Lopez NP 130 [facility] 2[address] [place] [address] (Joi diallo) 05/13/2022 Office Visit Rheumatology Tod Perez NP 111 [facility], [facility] 5 [place] [address] (Joi diallo) documented as of this encounter Visit Diagnoses Not on filedocumented in this encounter Care Teams Licensed Audiologist Relationship Specialty Start Date End Date Dereck Schultz MD PCP - General 04/07/19 04/04/20 [address] [place] [address] Layne aCi MD PCP - General 04/05/20 [address] [place] [phone] documented as of this encounter
--- OUTSIDE RECORDS SUMMARY | 2021-12-21 01:22 | XMS_ITS | Encounter Summary ---
:1945 Author Organization [facility] Address [address] [place] [address] Care Team Providers Name Role Phone Dereck Schultz MD Primary Care Provider [phone] Reason for Visit Reason Comments Telemedicine Phone Call Encounter Details Date Type Department Care Team Description 02/24/2020 Telemedicine [facility] Cancer Center Erin Barillas MD Polycythemia vera Hematology & [address] [place] [address] ([facility]) [facility], [address], [address] [place], [place] [address] [place] [address] [phone] (Wo rk) Social History Tobacco Use [...] encounter Progress Notes Erin Barillas MD - 02/24/2020 1430 EDT The concept of ???Telemedicine?? has been [...] in patient???s medical or mental health care. Phone visit Subjective: Chief Complaint Patient presents with ??? Telemedicine Phone Call [facility] Mr. Villanueva is a pleasant 74 year old gentleman with past medical history of Hypertension, Hyperlipidemia, Arthritis (followed by Dr. Rosales), currently on weekly oral Methotrexate and folicacid supplements, BPH, history of sinus bradycardia and Type 2 sinoatrial exit block, s/p pacemaker placement and varicose veins. 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 Interval Visit: Feels better at this time. Denies any headaches/dizziness. No vision changes reported. Denies any dyspnea at rest or with exertion. No chest pain. No palpitations. No nausea/vomiting/abdominal pain/changes in bowel habits. No blood in stool or urine. No fever/chills or night sweats. No unintentional we ight loss. No dysuria/hematuria. No rashes. No epistaxis/gum bleeding. No easy bruising reported. Noother complaints offered today. 12 point ROS performed [...] States that he spent the winter in [place] and noted that his fingers would turn [...] below. Social history: Retired. Worked for the [employer]. 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 Labs ordered, reviewed and interpreted by me [...] Barillas M D Oncology 111 [facility] 2 [place] [phone] (Wo rk) 02/14/2022 Office Visit Hematology and Erin Barillas M D Oncology 111 [facility] 2 [place] [address] (Wo rk) 04/25/2022 Ancillary Procedure Cardiology 04/25/2022 Office Visit Cardiology Claire Lopez NP 130 [facility] [address] [place] [phone] (Wo rk) 05/13/2022 Office Visit Rheumatology Tod Perez NP 111 [facility], [facility] 5 [place] [address] (Wo rk) documented as of this encounter Visit Diagnoses Diagnosis Polycythemia vera (HCC) - Primary documented in this encounter Care Teams Sugar Mixer Relationship Specialty Start Date End Date Dereck Schultz MD PCP - General 04/07/19 04/04/[address] [place], [place] [address] [place] [phone] documented as of this encounter
--- OUTSIDE RECORDS SUMMARY | 2021-12-21 01:22 | XMS_ITS | Encounter Summary ---
:1945 Author Organization [facility] Address [address] [place] [address] Care Team Providers Name Role Phone Dereck Schultz MD Primary Care Provider [phone] Encounter Details Date Type Department Care Team Description 01/04/2020 Hospital Encounter [facility] [address] [place], [place] [address] Social History Tobacco Use Types Packs/Day Years [...] Sign Reading Time Taken Comments Blood Pressure 145/73 01/04/2020 1309 EDT Pulse 60 01/04/2020 1309 EDT Temperature 36.2 ??C (97.2 ??F) 01/04/2020 1159 EDT Respiratory Rate 18 01/04/2020 1159 EDT Oxygen Saturation 99% 01/04/2020 1309 EDT Inhaled Oxygen Concentration - - Weight [...] Take 1 Cap by mouth 90 Cap 1 01/27/2020 mg capsule 3 times daily for 30 days. ibuprofen (MOTRIN) [...] Care documented in this encounter Progress Notes Loida Araujo RN - 01/04/2020 1314 EDT Post T.P. Hydration completed at 13:09. VSS. PIV removed, site wnl. Pt ambulated off of unit for discharge. Ivon apple RN - 01/04/2020 1257 EDT Pt Praneeth Villanueva admitted to [address] for Therapeutic Phlebotomy and post hydration after. DX--[id number] 1155 Therapeutic phlebotomy started.-djp 1250Therapeutic phlebotomy completed per protocol. 500ml blood withdrawn over 55 minutes. Patient encouraged to increase po fluids before, during and after Therapeutic Phlebotomy procedure. 1252 Post hydration started.-djp documented in this encounter Plan of Treatment Upcoming Encounters Date Type Specialty Care Team Description 12/27/2021 Office Visit Hematology and Erin Barillas M D Oncology [address] [phone] (Joi rk) 02/14/2022 Office Visit Hematology and Erin Barillas M D Oncology [address] [place] [phone] (Wo rk) 04/25/2022 Ancillary Procedure Cardiology 04/25/2022 Office Visit Cardiology Claire Lopez NP 130 [facility] 2[address] [place] [phone] (Wo rk) 05/13/2022 Office Visit Rheumatology Tod Perez NP 111 [facility] 5 [place] [address] (Wo rk) documented as of this encounter Visit Diagnoses Not on filedocumented in this encounter Administered Medications Inactive Administered Medications - up to 3 most recent administrations Medication Order MAR Action Action Date Dose Rate Site sodium chloride 0.9 % BOLUS 250 mL New Bag 01/04/2020 12:52 EDT 250 mL 250 mL, intravenous, ONCE, 1 dose, Starting on Fri01/04/20 at 1215, Until Fri01/04/20 at 1309, Routine documented in this encounter Orders Medications Ordered That Might Not Have Count Last Ord ered Date First Ordered Date Been Administered sodium chloride 0.9 % BOLUS 250 mL 1 01/04/2020 documented in this encounter Care Teams Breaker Unit Assembler Relationship Specialty Start Date End Date Dereck Schultz MD PCP - General 04/07/19 04/04/[address] [place] [address] documented as of this encounter
--- OUTSIDE RECORDS SUMMARY | 2021-12-21 01:22 | XMS_ITS | Encounter Summary ---
:1945 Author Organization [facility] Address [address] [place] [address] Care Team Providers Name Role Phone Dereck Schultz MD Primary Care Provider [phone] Reason for Visit Reason Onset Date Comments Follow-up 01/10/2020 Encounter Details Date Type Department Care Team Description 01/10/2020 Telephone [facility] Cancer Center Hematology & St hawa Ji RN Follow-up Oncology - [facility] [address] [place], [place] [phone] Social History Tobacco Use Types Packs/Day Years [...] Encounter - Chikis Ji RN - 01/10/[address] Barillas, agrees no further therapeutic phlebotomy at this time; Praneeth should continue his Hydrea; Praneeth should have repeat labs in 2 weeks. Outgoing call made to Praneeth and his Augustina. I relayed the above information and they both verbalized understanding. There are standing lab orders for CB[facility]/C[facility] at [facility] (orders valid through December 2020). elephone Encounter - Chikis Ji RN - 01/10/2020 1509 EDT Reviewed Praneeth's lab results from today. Hct is 44.1. Outgoing call made to Praneeth and his Augustina Jackman answered so I informed her of Praneeth's lab results and that Praneeth will not need therapeutic phlebotomy tomorrow. I advised Augustina that I am waiting to hear from Dr. Barillas regarding the next steps, like when Praneeth should be repeat labs, etc. Augustina verbalized understanding and agreement. Will follow up with Dr. Barillas and notify Praneeth/Augustina. Requested Shep 4 to please cancel Praneeth's therapeutic phlebotomy appts. documented in this encounter Plan of Treatment Upcoming Encounters Date Type Specialty Care Team Description 12/27/2021 Office Visit Hematology and Erin Barillas M D Oncology [address] [place] [phone] (Wo rk) 02/14/2022 Office Visit Hematology and Erin Barillas M D Oncology 111 [facility] 2 [place] [phone] (Wo rk) 04/25/2022 Ancillary Procedure Cardiology 04/25/2022 Office Visit Cardiology Claire Lopez NP 130 [facility] [address] [phone] (Wo rk) 05/13/2022 Office Visit Rheumatology Tod Perez NP 111 [facility] 5 [place] [address] (Wo rk) documented as of this encounter Visit Diagnoses Not on filedocumented in this encounter Care Teams Regional Administrative Assistant Relationship Specialty Start Date End Date Dereck Schultz MD PCP - General 04/07/19 04/04/[address] [place] [phone] documented as of this encounter
--- OUTSIDE RECORDS SUMMARY | 2021-12-21 01:22 | XMS_ITS | Encounter Summary ---
:1945 Author Organization [facility] Address [address] [place] [address] Care Team Providers Name Role Phone Dereck Schultz MD Primary Care Provider Reason for Visit Reason Onset Date Comments Follow-up 03/06/2020 Encounter Details Date Type Department Care Team Description 03/06/2020 Telephone [facility] Cancer Center Hematology & St hawa Ji RN Follow-up Oncology - [facility] [address] [place], [place] [id number] Social History Tobacco Use Types Packs/Day Years [...] Telephone Encounter - Chikis Ji RN - 03/06/2020 1300 EDT Per discussion with Dr. Barillas, she wants Praneeth to get repeat labs in 1 month. Outgoing call to the home number listed under Praneeth's name - no answer so I left a voicemail requesting a call back. Outgoing call made to Praneeth's mobile number - I reviewed Praneeth's lab results and advised him that he should continue his Hydrea 500 mg daily and get repeat labs in 1 months (around 04/03/2020). Praneeth verbalized understanding and will get repeat labs done at [facility] (this facility already has standing lab orders in place). elephone Encounter - Chikis Ji RN - 03/06/2020 1244 EDT Entered external lab results collected today at [facility] lab. Routed encounter to Dr. Barillas for review. documented in this encounter Plan of Treatment Upcoming Encounters Date Type Specialty Care Team Description 12/27/2021 Office Visit Hematology and Erin Barillas M D Oncology [address] [phone] (Joi diallo) 02/14/2022 Office Visit Hematology and Erin Barillas M D Oncology [address] [phone] (Jio diallo) 04/25/2022 Ancillary Procedure Cardiology 04/25/2022 Office Visit Cardiology Claire Lopez , FESTUS [address] [facility] [address] [place] [phone] (Joi diallo) 05/13/2022 Office Visit Rheumatology Tod Perez, FESTUS 111 [facility], [address] [place] [address] (Wo rk) documented as of this encounter Procedures Procedure Name Priority Date/Time Associated Diagnosis Comme nts COMPLETE BLOOD COUNT AND Routine 03/06/2020 Res ults for this DIFFERENTIAL procedure are i n the results section . COMPREHENSIVE METABOLIC Routine 03/06/2020 Resu lts for this PANEL (CMP) procedure are i n the results section . documented in this encounter Results COMPLETE BLOOD COUNT AND DIFFERENTIAL (03/06/2020) Pathologist Sig nature WBC, External 4.50 [facility] RBC, External 4.34 [facility] Hemoglobin, External 14.3 [facility] HCT, External 42.8 [facility] MCV, External 98.6 [facility] MCH, External 32.9 [facility] MCHC, External 33.4 [facility] PLT, External 223 [facility] RDW-CV, External 21.2 [facility] Neutrophils, External 66.3 [facility] Lymphocytes, External 25.1 [facility] Monocytes, External 5.6 [facility] Eosinophils, External 2.4 [facility] Basophils, External 0.4 [facility] ABS Neutrophils, External 2.98 [facility] ABS Lymphs, External 1.13 [facility] ABS Monocytes, External 0.25 [facility] RE ABS Eosinophils, External 0.11 [facility] ABS Basophils, External 0.02 [facility] RE Specimen Blood - Venous blood (substance) Performing Organization Address City/State/ZIP Code Phon e Number [facility] COMPREHENSIVE METABOLIC PANEL (CMP) (03/06/2020) Pathologist Sig nature GFR, Calculated, External >60 [facility] Glucose, Serum, External 118 [facility] Albumin, External 4.0 [facility] Total Alkaline Phosphatase, 61 [facility] External ALT, External 18 [facility] AST, External 21 [facility] BUN, External 18 [facility] Calculated Calcium, [facility] External Calcium, External 8.8 [facility] Chloride, External 105 [facility] CO2, External 29.3 [facility] Creatinine, External 1.08 [facility] Fasting?, External [facility] Potassium, External 4.5 [facility] Sodium, External 139 [facility] Total Protein, External 6.7 [facility] Bilirubin, Total, External 0.9 [facility] Specimen Blood - Venous blood (substance) Performing Organization Address City/State/ZIP Code Phon e Number [facility] documented in this encounter Visit Diagnoses Not on filedocumented in this encounter Care Teams Confidential Secretary Relationship Specialty Start Date End Date Dereck Schultz MD PCP - General 04/07/19 04/04/[address] [place] [address] documented as of this encounter
--- OUTSIDE RECORDS SUMMARY | 2021-12-21 01:22 | XMS_ITS | Encounter Summary ---
:1945 Author Organization [facility] Address [address] [place] [address] Care Team Providers Name Role Phone Dereck Schultz MD Primary Care Provider [phone] Reason for Visit Reason Comments Joint Pain inflammatory arthritis Encounter Details Date Type Department Care Team Description 03/02/2020 Office Visit [facility] Tod Perez, In flammation around joint (Primary Dx); Rheumatology & RD SCIENTIST History of seronegative inflammatory art hritis; Immunology - Main [facility] for long-term (current) use of medications [address] [place], [place] [id number] [place] [address], [place] [address] (Wo rk) Social History Tobacco [...] Sign Reading Time Taken Comments Blood Pressure 163/78 03/02/2020 1024 EDT Pulse 80 03/02/2020 1024 EDT Temperature - - Respiratory Rate - - Oxygen Saturation - - Inhaled Oxygen Concentration - - Weight 100.2 kg (221 lb) 03/02/2020 1024 EDT Height - - Body Mass Index 30.82 05/11/2019 1458 EST documented in this encounter [...] this encounter Patient Instructions Patient InstructionsTod Perez, BATSHEVA - 03/02/2020 10:00 EDT 1. Increase methotrexate to 17.5mg orally once weekly Will continue this dose for 6-8 weeks if not improved please call the clinic to increase methotrexate 2. Labs in about 4 weeks, then if stable every 3-4 months -given external orders 3.Recommend HD flu vaccine when available Recommend shingrix when covid 19 is quiet- sign up with pharmacist 4. Please ask Dr. Barillas your hydrea questions 5. F/u 3 months in person Vaccine Information Statement: Shingrix Recombinant Zoster (Shingles) Vaccine, RZV: What you need to know Many Vaccine Information Statements are available in Slovak and other languages. See www.immunize.org/vis [place] de [...] it yourself through the [employer]ERS website at www.vaers.[facility].gov, or by calling . [employer]ERS does not give medical advice. 6. How can I learn more? Ask your health care provider. He or she can give you the vaccine package insert or suggest other sources of information. ??? Call your local or state health department. ??? Contact the Centers for Disease Control and Prevention (CDC): - Call (5-322-OTM-INFO) or - Visit [facility]???s website at www.cdc.gov/vaccines Vaccine Information Statement Recombinant Zoster Vaccine 07/28/2017 Department of Health and Human Services Centers for Disease Control and Prevention Office Use Only documented in this encounter Ordered Prescriptions Prescription Sig Dispensed Refills Start Date End Date methotrexate 2.5 mg Take 7 Tabs by 84 Tab 1 03/02/2020 1 tabletIndications: mouth once a week. Inflammation around joint, Encounter for long-term (current) use of medications documented in this encounter Progress Notes Zari Mccabe RN - 03/02/2020 1000 EDT REVIEW OF SYSTEMS: Yes No Yes No Fever X Joint pain x Weight gain or loss x fluctuates Duration of AM joint stiffness 30 min Eye pain or dryness X Numbness/tingling X Mouth or nose sores X Heart burn / Nausea X Chest pain X Diarrhea X Shortness of Breath X Blood in stool X Cough x Burning on urination X Skin rash X Hand/Foot color change in cold X Are our immunization records accurate per patient report? (i.e. influenza, pneumococcal, shingles) Yes No If no, note change(s) below and update record x Tod morillo APRN - 03/02/2020 1000 EDT Images from the original note were not included. Patient ID: Deon Villanueva is a 74 y.o. y.o. male Subjective: Chief Complaint: Joint Pain (inflammatory arthritis ) HPI: ?? Pertinent Rheumatological History: 1. [...] to improvement of symptoms - Travelled to [place] including [facility]. Able to ambulate without difficulty. - AM stiffness lasting approximately 30 minutes involving the hands and neck - Ibuprofen 800 mg orally daily as needed. Has not needed this in recent months. ?? 09/23/2019 Pt consents to telephone visit, Augustian also present on phone call 05/2019 visit [...] swelling. Was in a 5th meng in [place] at that time. new dx around 04/2019 of polycythemia: elevated RBC and hemoglobin Had repeat labs at [facility] 05/2019 PCP was suppose to set up NPV with hematology at [facility] - they have not [...] until counts are normal Will have CBC, Changes since last visit Trouble closing left hand, but not as [...] X Hand/Foot color change in cold X Denies any other joint pains or swelling. [...] is as documented in Prism. Objective: BP (!) 163/78 Pulse 80 Wt 100.2 kg (221 lb) BMI 30.82 kg/m?? General: No acute distress. Alert, fully [...] present. Appropriate range of motion present. Wrist/Hand: soft tissue swelling left hand and wrist, some on right hand dorsal as well, not as muchas left, trouble making tight fist with left hand, No significant tenderness, swelling, effusions, erythema or warmth is present. Appropriate range of motion present. Hips/Knee: No significant tenderness, or erythema or warmth is present. Appropriate range of motion present. Ankle/Foot: swelling left lateral ankle - ? Tenosynovitis? -pt states this never changes and is chronic, swelling right medial ankle, soft tissue swelling vs edema right dorsal surface No significant tenderness, swelling, effusions, erythema or warmth is present. Appropriate range of motion present. LABS: Results for DEON VILLANUEVA ( ) as of 03/01/2020 09:09 Ref. Range 02/14/2020 00:00 02/22/2020 00:00 Sodium, [...] 135 05/10/2014 ?? C4 27 05/10/2014 ?? [facility]: 11/18/18: CBC with differential: CBC = [...] Status: Final result ?Visible to patient: Yes ([facility] Next appt: 05/25/2018 at 11:40 inRheumatology (Sudhir Rosales MD) Order: [id number] ? 1yr ago ?? Pathology Report: SURGICAL PATHOLOGY REPORT Reports generated via electronic interface contain original data; however they are lacking the format of the original report. Caution should be taken when reading/interpreting unformatted reports. Name: ? DEON VILLANUEVA ? Accession #: ? [id number] ? : ? 1945 (Age: 71) ??M ?Collect Date: ? 10/23/2016 ? Location: ? [facility] ? Receive Date: ? 10/24/2016 ? Provider: SHREYA LEA MD Copy to: MINDY SZYMANSKI [facility] ? Final Pathologic Diagnosis: A. ??GASTROESOPHAGEAL [...] Status: Final result ?Visible to patient: Yes ([employer]) Next appt: 05/25/2018 at 11:40 inRheumatology (Sudhir Rosales MD) Order: [id number] ? 1yr ago ?? Pathology Report: SURGICAL PATHOLOGY REPORT Reports generated via electronic interface contain original data; however they are lacking the format of the original report. Caution should be taken when reading/interpreting unformatted reports. Name: ? DEON VILLANUEVA ? Accession #: ? [id number] ? : ? 1945 (Age: 71) ??M ?Collect Date: ? 10/23/2016 ? Location: ? [facility] ? Receive Date: ? 10/24/2016 ? Provider: SHREAY LEA MD Copy to: MINDY SZYMANSKI [facility] ? Final Pathologic Diagnosis: A. ??GASTROESOPHAGEAL [place], [...] in B1. Ann Moscoso 10/25/2016 7:55 AM ? RAPID3 Summary Functional Status: 1 Pain Tolerance: 5 Global Estimate: 2 Score: 8 Interpretation: Moderate ASSESSMENT: 1.Inflammator arthritis active, weaned MTX Jun [address] Rosales as was trying to reduce his medication. Started flaring Jul 2019 with hand swelling. Was in [place] at that time. Received prednisone burst from PCP 2 weeks ago- 20mg x 7 days, then 10mg x 7 days. MTX 10mg restarted 09/23/2019. Currently on MTX 15mg with active swelling bilateral hands L>R, wrists and possibly tenosynovitis left lateral ankle. Will increase MTX slowly 2/2 polycemia vera, increased today to 17.5mg, will likely need higher dose. 2 up to date on labs Labs in 1 month for MTX increase 4. Polycythemia vera -followed by Dr. Barillas Hematology/Oncology On hydrea and aspirin 81mg. Not needing phlebotomy at this time as CBC and abs neutrophils normalized Encounter Diagnoses Name Primary? Inflammation around joint ??? History of seronegative inflammatory arthritis Yes ??? Encounter for long-term (current) use of medications PLAN: 1. Increase methotrexate to 17.5mg orally once weekly Will continue this dose for 6-8 weeks if not improved please call the clinic to increase methotrexate 2. Labs in about 4 weeks, then if stable every 3-4 months -given external orders 3.Recommend HD flu vaccine when available Recommend shingrix when covid 19 is quiet- sign up with pharmacist 4. Please ask Dr. Barillas your hydrea questions 5. F/u 3 months in person 8 1. History of seronegative inflammatory arthritis 2. Inflammation around joint 3. Encounter for long-term (current) use of medications No orders of the defined types were placed in this encounter. Barriers to learning identified: No Patient verbalizes understanding and agrees with plan Yes I was directly supervised by: Dr. Rosales They were present in clinic and available for consult if needed. Tod Perez APRN 03/02/2020 10:35 documented in this encounter Plan of Treatment Upcoming Encounters Date Type Specialty Care Team Description 12/27/2021 Office Visit Hematology and Erin Barillas M D Oncology [address] [phone] (Joi diallo) 02/14/2022 Office Visit Hematology and Erin Barillas M D Oncology [address] [phone] (Joi diallo) 04/25/2022 Ancillary Procedure Cardiology 04/25/2022 Office Visit Cardiology Claire Lopez , FESTUS 130 [facility] [address] [place] [phone] (Joi diallo) 05/13/2022 Office Visit Rheumatology Tod Perez NP 111 [facility], [address] [place] [address] (Wo rk) documented as of this encounter Visit Diagnoses Diagnosis Inflammation around joint - Primary Enthesopathy of unspecified site History of seronegative inflammatory art hritis Encounter for long-term (current) use of medications Encounter for long-term (current) use of other medications documented in this encounter Discontinued Medications Medication Sig Discontinue Reason Start Date End Date predniSONE (DELTASONE) 5 Take 1 Tab by Therapy completed 10/25/2019 03/02/2020 mg tablet mouth daily. 5mg daily x 14-21 then taper to 2.5 mg x 7 days methotrexate 2.5 mg Take 6 Tabs by Reorder 12/02/20192019 tabletIndications: mouth once a week. Inflammation around joint, Encounter for long-term (current) use of medications documented as of this encounter Historical Medications This list may reflect changes made after this encounter. Medication Sig Dispensed Refills Start Date End Date hydroxyurea (HYDREA) 500 Take 500 mg by 0 05/15/2020 mg capsuleIndications: mouth daily. polycythemia vera added in this encounter Care Teams Log Snaker Relationship Specialty Start Date End Date Dereck Schultz MD PCP - General 04/07/19 04/04/20 [address] [place] [phone] documented as of this encounter
--- OUTSIDE RECORDS SUMMARY | 2021-12-21 01:22 | XMS_ITS | Encounter Summary ---
:1945 Author Organization [facility] Address [address] [place] [address] Care Team Providers Name Role Phone Dereck Schultz MD Primary Care Provider [phone] Reason for Visit Reason Onset Date Comments Labs Only 02/22/2020 Follow-up 02/22/2020 Encounter Details Date Type Department Care Team Description 02/22/2020 Telephone [facility] Cancer Center Chikis Ji, Labs Only; Follow-up Hematology & Oncology - [facility] [place] [address] [place] [address] Social History Tobacco Use Types [...] this encounter Miscellaneous Notes Telephone Encounter - Karin Cardoza - 02/23/2020 1724 EDT Call Augustina and she wants to do a phone call on 02/[address] Barillas. elephone Encounter - Chikis Ji RN - 02/22/2020 1217 EDT Entered external labs (CBCD/CMP) collected today at [facility]. Forwarded results to Dr. Barillas for review - per discussion with Dr. Barillas, she wants Praneeth to continue his current dose of Hydrea 500 mg daily and get repeat labs every 2 weeks now. Outgoing call made to Praneeth. His Augustina answered. I advised her that Dr. Barillas wants Praneeth to continue Hydrea 500 mg daily and to get labs every 2 weeks. Augustina verbalized understanding/agreement and said she will notify Praneeth. Of note, Augustina does not need to change Praneeth's appt on this 02/23 as previously requested, but she is not sure if it's a phone or video appt since she didn't receive a Zoom link. I told her I'd askour outsoles channel opener to call her and clarify the plan. I sent an [employer] message to clinical data abstractor. Of note, I securely emailed Praneeth's BCR-ABL results to Dr. Barillas for review and sent copy of results to be scanned into Praneeth's medical record. documented in this encounter Plan of Treatment Upcoming Encounters Date Type Specialty Care Team Description 12/27/2021 Office Visit Hematology and Erin Barillas M D Oncology [address] [place] [address] [address] [place] [phone] (Wo rk) 02/14/2022 Office Visit Hematology and Erin Barillas M D Oncology 111 [facility] [address] [place] [phone] (Wo rk) 04/25/2022 Ancillary Procedure Cardiology 04/25/2022 Office Visit [facility] [address] [place] [phone] (Wo rk) 05/13/2022 Office Visit Rheumatology Tod Perez NP 111 [facility], [address] [place] [address] (Wo rk) documented as of this encounter Procedures Procedure Name Priority Date/Time Associated Diagnosis Comme nts COMPLETE BLOOD COUNT AND Routine 02/22/2020 Res ults for this DIFFERENTIAL procedure are i n the results section . COMPREHENSIVE METABOLIC Routine 02/22/2020 Resu lts for this PANEL (CMP) procedure are i n the results section . documented in this encounter Results COMPREHENSIVE METABOLIC PANEL (CMP) (02/22/2020) Pathologist Sig nature GFR, Calculated, External >60 [facility] Glucose, Serum, External 125 [facility] Albumin, External 3.9 [facility] Total Alkaline Phosphatase, 63 [facility] External ALT, External 24 [facility] AST, External 18 [facility] BUN, External 18 [facility] Calculated Calcium, [facility] External Calcium, External 8.8 [facility] Chloride, External 104 [facility] CO2, External 28.8 [facility] Creatinine, External 1.13 [facility] Fasting?, External [facility] Potassium, External 4.2 [facility] Sodium, External 138 [facility] Total Protein, External 7.0 [facility]INT [facility] RE Bilirubin, Total, External 0.5 [facility] Specimen Blood - Venous blood (substance) Performing Organization Address City/State/ZIP Code Phon e Number [facility] COMPLETE BLOOD COUNT AND DIFFERENTIAL (02/22/2020) Pathologist Sig nature WBC, External 5.55 [facility] RBC, External 4.29 [facility] Hemoglobin, External 13.9 [facility] HCT, External 42.4 [facility] MCV, External 98.8 [facility] MCH, External 32.4 [facility] MCHC, External 32.8 [facility] PLT, External 254 [facility] RDW-CV, External 23.8 [facility] Neutrophils, External 67.4 [facility] Lymphocytes, External 23.8 [facility] Monocytes, External 6.5 [facility] Eosinophils, External 1.6 [facility] Basophils, External 0.2 [facility] ABS Neutrophils, External 3.74 [facility] ABS Lymphs, External 1.32 [facility] ABS Monocytes, External 0.36 [facility] RE ABS Eosinophils, External 0.09 [facility] ABS Basophils, External 0.01 [facility] RE Specimen Blood - Venous blood (substance) Performing Organization Address City/State/ZIP Code Phon e Number [facility] documented in this encounter Visit Diagnoses Not on filedocumented in this encounter Care Teams Manager Monitoring Relationship Specialty Start Date End Date Dereck Schultz MD PCP - General 04/07/19 04/04/20 [address] [place] [phone] documented as of this encounter
--- OUTSIDE RECORDS SUMMARY | 2021-12-21 01:22 | XMS_ITS | Encounter Summary ---
:1945 Author Organization [facility] Address [address] [place] [address] Care Team Providers Name Role Phone Dereck Schultz MD Primary Care Provider [phone] Reason for Visit Reason Onset Date Comments Follow-up 12/20/2019 Encounter Details Date Type Department Care Team Description 12/20/2019 Telephone [facility] Hematology & GaSt hawa meyers RN Follow-up Oncology - [facility] [address] [place], [place] [phone] Social History Tobacco Use Types Packs/Day Years [...] Telephone Encounter - Chikis Ji RN - 12/20/2019 6283 EDT Per discussion with Dr. Barillas, Praneeth should proceed with his phlebotomy tomorrow 12/21/19, and Praneeth should increase his Hydrea to 500 mg three times a day. I called Praneeth and spoke with his Augustina. I relayed the above information and she is agreeable. documented in this encounter Plan of Treatment Upcoming Encounters Date Type Specialty Care Team Description 12/27/2021 Office Visit Hematology and Erin Barillas M D Oncology [address] [phone] (Wo rk) 02/14/2022 Office Visit Hematology and Erin Barillas M D Oncology [address] [phone] (Wo rk) 04/25/2022 Ancillary Procedure Cardiology 04/25/2022 Office Visit Cardiology Claire Lopez NP 130 [facility] [address] [place] [phone] (Wo rk) 05/13/2022 Office Visit Rheumatology Tod Perez NP 111 [facility] [address] [place] [address] (Wo rk) documented as of this encounter Visit Diagnoses Not on filedocumented in this encounter Care Teams Train Engineer Relationship Specialty Start Date End Date Dereck Schultz MD PCP - General 04/07/19 04/04/[address] [place] [address] documented as of this encounter
--- OUTSIDE RECORDS SUMMARY | 2021-12-21 01:22 | XMS_ITS | Encounter Summary ---
:1945 Author Organization [facility] Address [address] [place] [address] Care Team Providers Name Role Phone Dereck Schultz MD Primary Care Provider [phone] Reason for Visit Reason Comments Telemedicine Video Visit Encounter Details Date Type Department Care Team Description 12/20/2019 Telemedicine [facility] Erin Barillas MD Polycythemia vera Hematology & [address] [place] [address] (HCC-[facility]) ([place] im[place] Oncology - [facility] Dx) [facility], [address], [address] [place], [place] [address] [place] [address] [phone] (Wo rk) Social History Tobacco Use [...] encounter Progress Notes Erin Barillas MD - 12/20/2019 0930 EDT The concept of ???Telemedicine?? has been [...] Hematology for evaluation of polycythemia. Interval Visit: Tolerating phlebotomy well. Occasional dizziness but no episodes of loss of consciousness. 12 point ROS performed with pertinent positives [...] below. Social history: Retired. Worked for the [employer]. Former smoker with 20 pack year smoking [...] on phone: None Gets together: None Attends latter day service: None Active member of club or organization: None Attends meetings of clubs or organizations: None Relationship status: None ??? Intimate partner violence Fear of current or ex partner: None Emotionally abused: None Physically abused: None Forced sexual activity: None Other Topics Concern ??? 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 ECOG Performance Status: 0 Labs: Complete Blood Count Lab Results Component [...] of cardiovascular complications. Plan: 1.Will plan to continue with phlebotomy to maintain Hct <45. Will also initiate Hydroxyurea. We discussed the risks and benefits of phlebotomy including but not limited to cardiovascular complications. We also discussed the risks of Hydroxyurea including but not limited to mucocutaneous ulcerations, fatigue and low blood counts leading to an [...] labs. 3. Continue low-dose Aspirin 81mg daily. We discussed [...] and Erin Barillas M D Oncology [address] [place] [address] 2 [place] [phone] (Wo rk) 02/14/2022 Office Visit Hematology and Erin Barillas M D Oncology 111 [facility], [facility] 2 [place] [phone] (Wo rk) 04/25/2022 Ancillary Procedure Cardiology 04/25/2022 Office Visit [facility]iology [facility] 2[address]1 [place] [phone] (Wo rk) 05/13/2022 Office Visit Rheumatology Tod Perez NP 111 [facility], [facility] 5 [place] [address] (Wo rk) documented as of this encounter Visit Diagnoses Diagnosis Polycythemia vera (HCC) - Primary documented in this encounter Care Teams Mandrel Puller Relationship Specialty Start Date End Date Dereck Schultz MD PCP - General 04/07/19 04/04/[address] [place] [place] [phone] documented as of this encounter
--- OUTSIDE RECORDS SUMMARY | 2021-12-21 01:22 | XMS_ITS | Encounter Summary ---
:1945 Author Organization [facility] Address [address] [place] [address] Care Team Providers Name Role Phone Dereck Schultz MD Primary Care Provider [phone] Reason for Visit Reason Onset Date Comments Critical Value 01/31/2020 Encounter Details Date Type Department Care Team Description 01/31/[address] [facility] Cancer Center Erin Barillas MD Critical Value Hematology & Oncology - [facility], [address], [address] [place], [place] [address] [place] [address] [phone] (Wo rk) Social History Tobacco Use [...] Sig Dispensed Refills Start Date End Date levOFLOXacin (LEVAQUIN) Take 1 Tab by mouth 14 Tab 0 02/14/2020 500 mg tablet daily for 14 days. fluconazole (DIFLUCAN) 200 Take 1 Tab by mouth 14 Tab 0 01/31/2020 02/14/2020 mg tabletIndications: daily for 14 days. Neutropenia, unspecified type (HCC-CMS) (HCC), Polycythemia vera (HCC) acyclovir (ZOVIRAX) 400 mg Take 1 Tab by mouth 28 Tab 0 01/31/2020 02/14/2020 tabletIndications: 2 times daily for Neutropenia, unspecified 14 days. type (HCC-CMS) (HCC), Polycythemia vera (HCC) documented in this encounter Miscellaneous Notes Telephone Encounter - Chikis Ji RN - 01/31/2020 1150 [address] discussion with Dr[address] Barillas, Praneeth should get repeat labs this 02/03/2020. Outgoing call made to Praneeth. He answered and I reviewed the information I discussed earlier with his Augustina - Praneeth said he already spoke with Augustina and did not have any questions. I reinforced neutropenic precautions and when he should call the clinic. I advised Praneeth that he needs to get repeat labs this 02/02. He verbalized understanding of the conversation and asked me to call his about the labs. Outgoing call made to Augustina. Augustina verbalized understanding that Praneeth needs to get labs done this . elephone Encounter - Chikis Ji RN - 01/31/2020 1045 [address] discussion with Dr[address] Barillas, Praneeth should hold Hydrea, and start antimicrobial prophylaxis Fluconazole, Levaquin and Acyclovir as per our protocol. Outgoing call to Praneeth - no answer so I left a voicemail, attempted his other number and received a busy signal. Outgoing call to Praneeth's Augustina. Augustina answered and said Praneeth is up the road at their other houseworking on a trailer. I reviewed Praneeth's lab results and that Dr. Barillas is requesting Praneeth to hold his Hydrea and start prophylactic antimicrobials. I reviewed neutropenic precautions (to include not working in the yard or on equipment) and symptoms for which he should call the clinic immediately (including but not limited to temp or greater, chills, feeling run- down, vomiting, diarrhea, any skin issues like a poorly healing cut). Augustina reports Praneeth cut his forearm this weekend - she said it is healing fine but I will take a look at it again today. Augustina took notes during the conversation and verbalized understanding. At the end of the conversation Praneeth started walking into their house and Augustina said she will review the information with Praneeth. I encouraged them to please call the clinic if they have any questions or concerns. Entered prophylactic antimicrobial prescriptions to Praneeth's local pharmacy. Of note, Augustina reports Praneeth does not have any antibiotic allergies. elephone Encounter - Chikis Ji RN - 01/31/2020 1014 EDT Clinical Staff notified with Critical Results Provider Notified: Provider Name: Dr. Barillas Date: 01/31/2020 Time: 1015 AM Treatment Plan: Patient Notified: Date: Time: Did not notify Praneeth yet about his results. Routed encounter to Dr. Barillas for review and recommendation. Called [facility] lab and requested them to fax the rest of Praneeth's results to [phone]. elephone Encounter - Augustina Salazar - 01/31/2020 1003 EDT Non Clinical Staff notified with Critical Results Ordering Provider: HERLINDA Date and Time Test was Performed: 01/31/20 @ 7:13 AM Results: WBC 1.24 ANC 0.19 Result Read Back and Verified: yes Nursing/Provider Notified:YES Nursing/Provider Name: CHIKIS Mohamud Date: 01/31/20 Time: 10:04 AM documented in this encounter Plan of Treatment Upcoming Encounters Date Type Specialty Care Team Description 12/27/2021 Office Visit Hematology and Erin Barillas M D Oncology 111 [facility] 2 [place] [address] (Wo rk) 02/14/2022 Office Visit Hematology and Erin Barillas M D Oncology [address] [place] [address] 2 [place] [phone] (Wo rk) 04/25/2022 Ancillary Procedure Cardiology 04/25/2022 Office Visit Cardiology Claire Lopez NP 130 [facility] [address] [place] [phone] (Wo rk) 05/13/2022 Office Visit Rheumatology Tod Perez NP 111 [facility], [facility] 5 [place] [address] (Wo rk) documented as of this encounter Visit Diagnoses Diagnosis Neutropenia, unspecified type (HCC-CMS) (HCC) - Primary Polycythemia vera (HCC) documented in this encounter Care Teams Cupola Tapper Helper Relationship Specialty Start Date End Date Dereck Schultz MD PCP - General 04/07/19 04/04/[address] [place] [phone] documented as of this encounter
--- OUTSIDE RECORDS SUMMARY | 2021-12-21 01:22 | XMS_ITS | Encounter Summary ---
:1945 Author Organization [facility] Address [address] [place] [address] Care Team Providers Name Role Phone Dereck Schultz MD Primary Care Provider [phone] Encounter Details Date Type Department Care Team Description 12/28/2019 Hospital Encounter [facility] [address] [place], [place] [address] Social History Tobacco Use Types Packs/Day Years [...] Sign Reading Time Taken Comments Blood Pressure 165/76 12/28/2019 1427 EDT Pulse - - Temperature 35.9 ??C (96.6 ??F) 12/28/2019 1427 EDT Respiratory Rate 18 12/28/2019 1427 EDT Oxygen Saturation 97% 12/28/2019 1427 EDT Inhaled Oxygen Concentration - - Weight [...] Care documented in this encounter Progress Notes Judith Granados RN - 12/28/2019 1318 EDT Patient Praneeth Villanueva arrives [facility] for Therapeutic Phlebotomy related to D45. Pt identification verified verbally and on patient armband. Peripheral IV Placed line in placeon arrival. Therapeutic Phlebotomy initiated at 1315 Completed at 1420 Replaced with 250 ml NS Pt tolerated infusion well without signs or symptoms of infusion reaction. Peripheral IV removed . Pt left infusion center via ambulation. documented in this encounter Plan of Treatment Upcoming Encounters Date Type Specialty Care Team Description 12/27/2021 Office Visit Hematology and Erin Barillas M D Oncology 111 [facility] 2 [place] [address] (Wo rk) 02/14/2022 Office Visit Hematology and Erin Barillas M D Oncology 111 [facility] 2 [place] [address] (Wo rk) 04/25/2022 Ancillary Procedure Cardiology 04/25/2022 Office Visit Cardiology Claire Lopez NP 130 [facility] 2-[address] [place] [phone] (Wo rk) 05/13/2022 Office Visit Rheumatology Tod Perez NP 111 [facility], [facility] 5 [place] [address] (Wo rk) documented as of this encounter Visit Diagnoses Not on filedocumented in this encounter Care Teams Occupational Therapist Home Based Relationship Specialty Start Date End Date Dereck Schultz MD PCP - General 04/07/19 04/04/20 [address] [place] [phone] documented as of this encounter
--- OUTSIDE RECORDS SUMMARY | 2021-12-21 01:22 | XMS_ITS | Encounter Summary ---
:[address] [facility] Address [address] [place] [address] Care Team Providers Name Role Phone Dereck Schultz MD Primary Care Provider [phone] Reason for Visit Reason Onset Date Comments Labs Only 12/27/2019 Encounter Details Date Type Department Care Team Description 12/27/2019 Telephone [facility] Cancer Center Hematology & [address] hawa rodarte RN Labs Only Oncology - Main [facility] [address] [place], [place] [address] Social History Tobacco Use Types Packs/Day Years [...] Telephone Encounter - Chikis Ji RN - 12/27/2019 1520 EDT Entered external lab results from [facility] that were collected on 12/27/2019. documented in this encounter Plan of Treatment Upcoming Encounters Date Type Specialty Care Team Description 12/27/2021 Office Visit Hematology and Erin Barillas M D Oncology [address] [place] [address] 2 [place] [address] (Wo rk) 02/14/2022 Office Visit Hematology and Erin Barillas M D Oncology [address] [phone] (Wo rk) 04/25/2022 Ancillary Procedure Cardiology 04/25/2022 Office Visit Cardiology Claire Lopez NP [address] [place] [address] [phone] (Wo rk) 05/13/2022 Office Visit Rheumatology Tod Perez NP 111 [facility], [facility] 5 [place] [address] (Wo rk) documented as of this encounter Procedures Procedure Name Priority Date/Time Associated Comments Diagnosis COMPREHENSIVE Routine 11/09/2020 14:40 Results fo r this METABOLIC PANEL (CMP) EDT proced ure are in the results section. COMPLETE BLOOD COUNT Routine 12/27/2019 Results for this AND DIFFERENTIAL procedure a re in the results section. COMPREHENSIVE Routine 12/27/2019 Results for th is METABOLIC PANEL (CMP) proced ure are in the results section. documented in this encounter Results (ABNORMAL) COMPREHENSIVE METABOLIC PANEL (CMP) (11/09/2020 14:40 EDT) ALBUMIN - [facility] 4.6 3.4 - 4.9 [facility] g/dL [facility] ALKALINE 65 38 - 126 U/L [facility] PHOSPHATASE - [facility] BILIRUBIN TOTAL 0.5 0.2 - 1.3 [facility] mg/dL [facility] BUN - [facility] 19 10 - 26 mg/dL [facility] CALCIUM - [facility] 9.5 8.5 - 10.5 [facility] mg/dL [facility] Chloride 103 96 - 110 [facility] mmol/L [facility] CO2 Total 22 21 - 32 mEq/L [facility] CREATININE 1.01 0.66 - 1.25 [facility] mg/dL [facility] eGFR >60 [facility] Comment: [facility] Chronic renal impairment is defined as GFR <60 Multiply result by 1.210 for patients . Anion Gap 14 0 - 18 [facility] GLUCOSE - [facility] 152 (H) 70 - 100 [facility] mg/dL [facility] Potassium 4.3 3.5 - 5.0 [facility] mEq/L [facility] Sodium 139 136 - 145 [facility] mEq/L [facility] TOTAL PROTEIN - 7.1 6.2 - 8.2 [facility] gm/dL [facility] SGOT/AST - [facility] 23 17 - 59 U/L [facility] SGPT/ALT - [facility] 15 0 - 50 U/L [facility] Specimen Blood - Venous blood (substance) Performing Organization Address City/State/ZIP Code Phon e Number [facility] [address] [place] [address] COMPREHENSIVE METABOLIC PANEL (CMP) (12/27/2019) Pathologist Sig nature GFR, Calculated, External >=60 POINT OF CARE U [facility] Glucose, Serum, External 117 POINT OF CARE [facility] Albumin, External 4.0 POINT OF CARE [facility] Total Alkaline Phosphatase, 70 POINT OF CARE [facility] External ALT, External 32 POINT OF CARE [facility] AST, External 30 POINT OF CARE [facility] BUN, External 19 POINT OF CARE [facility] Calculated Calcium, POINT OF CARE [facility] External Calcium, External 9.2 POINT OF CARE [facility] Chloride, External 103 POINT OF CARE [facility] CO2, External 26.8 POINT OF CARE [facility] Creatinine, External 1.09 POINT OF CARE [facility] Fasting?, External POINT OF CARE [facility] Potassium, External 4.3 POINT OF CARE [facility] Sodium, External 139 POINT OF CARE [facility] Total Protein, External 6.7 POINT OF CARE [facility] Bilirubin, Total, External 0.8 POINT OF CARE [facility] Specimen Blood - Venous blood (substance) Performing Organization Address City/State/ZIP Code Phon e Number [facility] POINT OF CARE POINT OF CARE [facility] COMPLETE BLOOD COUNT AND DIFFERENTIAL (12/27/2019) Pathologist Sig nature WBC, External 4.01 POINT OF CARE [facility] RBC, External 5.84 POINT OF CARE [facility] Hemoglobin, External 16.0 POINT OF CARE [facility] HCT, External 50.0 POINT OF CARE [facility] MCV, External 85.6 POINT OF CARE [facility] MCH, External 27.4 POINT OF CARE [facility] MCHC, External 32.0 POINT OF CARE [facility] PLT, External 199 POINT OF CARE [facility] RDW-CV, External 24.0 POINT OF CARE [facility] Neutrophils, External 67.4 POINT OF CARE [facility] Lymphocytes, External 24.2 POINT OF CARE [facility] Monocytes, External 6.2 POINT OF CARE [facility] Eosinophils, External 1.7 POINT OF CARE [facility] Basophils, External 0.5 POINT OF CARE [facility] ABS Neutrophils, External 2.7 POINT OF CARE U [facility] ABS Lymphs, External 0.97 POINT OF CARE [facility] ABS Monocytes, External 0.25 POINT OF CARE [facility] ABS Eosinophils, External 0.07 POINT OF CARE [facility] ABS Basophils, External 0.02 POINT OF CARE [facility] Specimen Blood - Venous blood (substance) Performing Organization Address City/State/[facility] Code Phon e Number [facility] POINT OF CARE POINT OF CARE [facility] documented in this encounter Visit Diagnoses Not on filedocumented in this encounter Care Teams Veterinary Hospital Attendant Relationship Specialty Start Date End Date Dereck Schultz MD PCP - General 04/07/19 04/04/20 [address] [place] [address] documented as of this encounter
--- OUTSIDE RECORDS SUMMARY | 2021-12-21 01:22 | XMS_ITS | Encounter Summary ---
:1945 Author Organization [facility] Address [address] [place] [address] Care Team Providers Name Role Phone Dereck Schultz MD Primary Care Provider [phone] Encounter Details Date Type Department Care Team Description 12/06/2019 Travel Social History Tobacco Use Types Packs/Day [...] Erin Barillas M D Oncology 111 [facility] 2 [place] [address] (Wo rk) 02/14/2022 Office Visit Hematology and Erin Barillas M D Oncology 111 [facility] 2 [place] [address] (Wo rk) 04/25/2022 Ancillary Procedure Cardiology 04/25/2022 Office Visit Cardiology Claire Lopez NP 130 [facility] [address] [phone] (Wo rk) 05/13/2022 Office Visit Rheumatology Tod Perez NP 111 [facility] 5 [place] [address] (Wo rk) documented as of this encounter Visit Diagnoses Not on filedocumented in this encounter Care Teams Cooler Conveyor Loader Relationship Specialty Start Date End Date Dereck Schultz MD PCP - General 04/07/19 04/04/[address] [place] [phone] documented as of this encounter
--- OUTSIDE RECORDS SUMMARY | 2021-12-21 01:22 | XMS_ITS | Encounter Summary ---
:1945 Author Organization [facility] Address [address] [place] [address] Care Team Providers Name Role Phone Dereck Schultz MD Primary Care Provider [phone] Encounter Details Date Type Department Care Team Description 12/28/2019 Travel Social History Tobacco Use Types Packs/Day [...] and Erin Barillas M D Oncology 111 [facility] 2 [place] [address] (Wo rk) 02/14/2022 Office Visit Hematology and Erin Barillas M D Oncology 111 [facility] 2 [place] [address] (Wo rk) 04/25/2022 Ancillary Procedure Cardiology 04/25/2022 Office Visit Cardiology Claire Lopez NP 130 [facility] [address] [phone] (Wo rk) 05/13/2022 Office Visit Rheumatology Tod Perez NP 111 [facility], [facility] 5 [place] [address] (Wo rk) documented as of this encounter Visit Diagnoses Not on filedocumented in this encounter Care Teams Deliverer Merchandise Relationship Specialty Start Date End Date Dereck Schultz MD PCP - General 04/07/19 04/04/[address] [place] [phone] documented as of this encounter
--- OUTSIDE RECORDS SUMMARY | 2021-12-21 01:22 | XMS_ITS | Encounter Summary ---
:1945 Author Organization [facility] Address [address] [place] [address] Care Team Providers Name Role Phone Dereck Schultz MD Primary Care Provider [phone] Reason for Visit Reason Onset Date Comments Results 02/15/2020 Encounter Details Date Type Department Care Team Description 02/15/2020 Telephone [facility] Erin Barillas MD Results Hematology & Oncology - 111 [facility], [address], [address] 2 [place], [place] [address] [place] [phone] (Wo rk) Social History Tobacco Use Types [...] Notes Telephone Encounter - Augustina Salazar - 02/15/2020 1219 EDT LABS ENTERED FROM [facility]. Augustina Salazar 02/15/2020 12:19 documented in this encounter Plan of Treatment Upcoming Encounters Date Type Specialty Care Team Description 12/27/2021 Office Visit Hematology and Erin Barillas M D Oncology [address] [place] [phone] (Wo rk) 02/14/2022 Office Visit Hematology and Erin Barillas M D Oncology [address] [place] [phone] (Wo rk) 04/25/2022 Ancillary Procedure Cardiology 04/25/2022 Office Visit Cardiology Claire Lopez NP [address] [place] [phone] (Wo rk) 05/13/2022 Office Visit Rheumatology Tod Perez NP 111 [facility] 5 [place] [address] (Wo rk) documented as of this encounter Procedures Procedure Name Priority Date/Time Associated Diagnosis Comme nts COMPREHENSIVE METABOLIC Routine 01/31/2020 Resu lts for this PANEL (ONCOLOGY USE procedur e are in the ONLY-INC MG) results section . COMPLETE BLOOD COUNT AND Routine 01/31/2020 Res ults for this DIFFERENTIAL procedure are i n the results section . documented in this encounter Results (ABNORMAL) COMPREHENSIVE METABOLIC PANEL (ONCOLOGY USE ONLY-INC MG) (01/31/2020) Pathologist Sig nature Calcium, External 8.4 (A) 8.5 - 10.1 [facility] CO2, External 23.9 [facility] AST, External 21 [facility] ALT, External 23 [facility] Bilirubin, Total, 0.3 [facility] Creatinine, External 1.07 [facility] Calculated Calcium, [facility] Anion Gap, External [facility] Total Protein, 6.0 (A) 6.4 - 8.2 [facility] Potassium, External 4.0 [facility] Total Alkaline 63 [facility] Phosphatase, [facility] Albumin, External 3.5 [facility] BUN, External 20 (A) 7 - 18 [facility] GFR, Calculated, 60 [facility] Fasting?, External [facility] Chloride, External 107 [facility] Glucose, Serum, 125 (A) 74 - 106 [facility] Sodium, External 141 [facility] Magnesium, External [facility] Specimen Blood - Venous blood (substance) Performing Organization Address City/State/ZIP Code Phon e Number [facility] (ABNORMAL) COMPLETE BLOOD COUNT AND DIFFERENTIAL (01/31/2020) Pathologist Sig nature WBC, External 1.24 (A) 4.4 - 10.8 [facility] RBC, External 3.99 (A) 4.36 - 5.78 [facility] Hemoglobin, External 12.4 (A) 13.5 - 17.5 [facility] HCT, External 37.7 (A) 40.0 - 50.0 [facility] MCV, External 94.5 [facility] MCH, External 31.1 [facility] MCHC, External 32.9 [facility] PLT, External 123 (A) 130 - 400 [facility] RDW-CV, External 26.2 (A) 11.8 - 14.1 [facility] Neutrophils, 15.4 [facility] Lymphocytes, 54.0 [facility] Monocytes, External 25.8 [facility] Eosinophils, 3.2 [facility] Basophils, External 0.8 [facility] ABS Neutrophils, 0.19 (A) 1.2 - 6.7 [facility] ABS Lymphs, External 0.67 (A) 1.2 - 3.4 [facility] ABS Monocytes, 0.32 [facility] ABS Eosinophils, 0.04 [facility] ABS Basophils, 0.01 [facility] Specimen Blood - Venous blood (substance) Performing Organization Address City/State/ZIP Code Phon e Number [facility] documented in this encounter Visit Diagnoses Not on filedocumented in this encounter Care Teams State Manager Relationship Specialty Start Date End Date Dereck Schultz MD PCP - General 04/07/19 04/04/[address] [place] [phone] documented as of this encounter
--- OUTSIDE RECORDS SUMMARY | 2021-12-21 01:22 | XMS_ITS | Encounter Summary ---
:[address] [facility] Address [address] [place] [address] Care Team Providers Name Role Phone Dereck Schultz MD Primary Care Provider [phone] Reason for Visit Reason Onset Date Comments Critical Value 02/03/2020 Encounter Details Date Type Department Care Team Description 02/03/2020 Telephone [facility] Erin Barillas MD Critical Value Hematology & Oncology - 111 [facility], [address], [address] [place], [place] [address] [place] [address] [phone] (Wo rk) Social History Tobacco Use [...] Telephone Encounter - Chikis Ji RN - 02/03/2020 0904 EDT This issue is being addressed in a previous note - please refer to previous note written by this contract technical writer on 02/03/2020 at 0857. elephone Encounter - Mirela Pantoja - 02/03/2020 0808 EDT Nick from [facility] calling with critical values. Paging nurse. documented in this encounter Plan of Treatment Upcoming Encounters Date Type Specialty Care Team Description 12/27/2021 Office Visit Hematology and Erin Barillas M D Oncology [address] [phone] (Joi diallo) 02/14/2022 Office Visit Hematology and Erin Barillas M D Oncology [address] [phone] (Joi diallo) 04/25/2022 Ancillary Procedure Cardiology 04/25/2022 Office Visit Cardiology Claire Lopez NP 130 [facility] [address] [place] [phone] (Joi diallo) 05/13/2022 Office Visit Rheumatology Tod Perez NP 111 [facility], [facility] 5 [place] [address] (Joi diallo) documented as of this encounter Visit Diagnoses Not on filedocumented in this encounter Care Teams Stem Setter Relationship Specialty Start Date End Date Dereck Schultz MD PCP - General 04/07/19 04/04/[address] [place] [phone] documented as of this encounter
--- OUTSIDE RECORDS SUMMARY | 2021-12-21 01:22 | XMS_ITS | Encounter Summary ---
:1945 Author Organization [facility] [place] [facility] Address [address] [place] [address] Care Team Providers Name Role Phone Dereck Schultz MD Primary Care Provider [phone] Encounter Details Date Type Department Care Team Description 12/21/2019 Travel Social History Tobacco Use Types Packs/Day [...] Barillas M D Oncology 111 [facility] 2 [place] [phone] (Wo rk) 02/14/2022 Office Visit Hematology and Erin Barillas M D Oncology 111 [facility] 2 [place] [address] (Wo rk) 04/25/2022 Ancillary Procedure Cardiology 04/25/2022 Office Visit Cardiology Claire Lopez NP 130 [facility] [address] [phone] (Wo rk) 05/13/2022 Office Visit Rheumatology Tod Perez NP 111 [facility], [facility] 5 [place] [address] (Wo rk) documented as of this encounter Visit Diagnoses Not on filedocumented in this encounter Care Teams Pool Coordinator Relationship Specialty Start Date End Date Dereck Schultz MD PCP - General 04/07/19 04/04/[address] [place] [phone] documented as of this encounter
--- OUTSIDE RECORDS SUMMARY | 2021-12-21 01:22 | XMS_ITS | Encounter Summary ---
:1945 Author Organization [facility] Address [address] [place] [address] Care Team Providers Name Role Phone Dereck Schultz MD Primary Care Provider [phone] Reason for Visit Reason Onset Date Comments Labs Only 02/07/2020 Follow-up 02/07/2020 Encounter Details Date Type Department Care Team Description 02/07/2020 Telephone [facility] Chikis Ji, Labs Only; Follow-up Hematology & Oncology - Main [place] [address] [place] [address] Social History Tobacco Use Types [...] Telephone Encounter - Chikis Ji RN - 02/07/2020 9134 EDT Received Praneeth's lab results collected today from [facility] lab. Enteredexternal lab results. Per discussion with Dr. Barillas, she advises Praneeth hold his prophylactic antimicrobials, and continue to hold his Hydrea. Plan to re-check labs in 1 week. When Praneeth resumes his Hydrea he can restart at 500 mg daily. Outgoing call made to Praneeth, he and his Augustina were present on the call. Reviewed Praneeth's lab results and advised that since Praneeth's ANC has improved, he should stop the prophylactic antimicrobials. Also advised that Dr. Barillas wants him to continue to hold his Hydrea and get repeat labs again next Fri02/14/2020. Both parties verbalized understanding. Of note, Praneeth reports he gained 4 lbs since we spoke last week. His appetite, food intake, and energy levels remain unchanged. Praneeth weighs himself every Friday and Friday. documented in this encounter Plan of Treatment Upcoming Encounters Date Type Specialty Care Team Description 12/27/2021 Office Visit Hematology and Erin Barillas M D Oncology [address] [phone] (Joi diallo) 02/14/2022 Office Visit Hematology Erin Hernandez M D Oncology [address] [phone] (Joi diallo) 04/25/2022 Ancillary Procedure Cardiology 04/25/2022 Office Visit Cardiology Claire Lopez NP 130 [facility] [address] [place] [phone] (Joi diallo) 05/13/2022 Office Visit Rheumatology Tod Perez NP 111 [facility], Level 5 [place] [address] (Wo rk) documented as of this encounter Procedures Procedure Name Priority Date/Time Associated Diagnosis Comme nts COMPLETE BLOOD COUNT AND Routine 02/07/2020 Res ults for this DIFFERENTIAL procedure are i n the results section . COMPREHENSIVE METABOLIC Routine 02/07/2020 Resu lts for this PANEL (CMP) procedure are i n the results section . COMPLETE BLOOD COUNT AND Routine 02/03/2020 Res ults for this DIFFERENTIAL procedure are i n the results section . COMPREHENSIVE METABOLIC Routine 02/03/2020 Resu lts for this PANEL (CMP) procedure are i n the results section . documented in this encounter Results COMPLETE BLOOD COUNT AND DIFFERENTIAL (02/07/2020) Pathologist Sig nature WBC, External 3.60 [facility] RBC, External 4.56 [facility] Hemoglobin, External 14.3 [facility] HCT, External 42.6 [facility] MCV, External 93.4 [facility] MCH, External 31.4 [facility] MCHC, External 33.6 [facility] PLT, External 173 [facility] RDW-CV, External 26.4 [facility] Neutrophils, External 41.0 [facility] Lymphocytes, External 38.0 [facility] Monocytes, External 16.0 [facility] Eosinophils, External 2.0 [facility] Basophils, External 2.0 [facility] ABS Neutrophils, External 1.51 [facility] ABS Lymphs, External 1.37 [facility] ABS Monocytes, External 0.58 [facility] ABS Eosinophils, External 0.07 [facility] ABS Basophils, External 0.07 [facility] Specimen Blood - Venous blood (substance) Performing Organization Address City/State/ZIP Code Phon e Number [facility] COMPREHENSIVE METABOLIC PANEL (CMP) (02/07/2020) Pathologist Sig nature GFR, Calculated, External >60 [facility] Glucose, Serum, External 123 [facility] Albumin, External 4.1 [facility] Total Alkaline Phosphatase, 66 [facility] External ALT, External 25 [facility] AST, External 20 [facility] BUN, External 19 [facility] Calculated Calcium, [facility] External Calcium, External 9.0 [facility] Chloride, External 103 [facility] CO2, External 27.2 [facility] Creatinine, External 1.15 [facility] Fasting?, External [facility] Potassium, External 4.2 [facility] Sodium, External 138 [facility] Total Protein, External 7.4 [facility] Bilirubin, Total, External 0.5 [facility] Specimen Blood - Venous blood (substance) Performing Organization Address City/[facility] Code Phon e Number [facility] COMPLETE BLOOD COUNT AND DIFFERENTIAL (02/03/2020) Pathologist Sig nature WBC, External 1.76 [facility] RBC, External 4.46 [facility] Hemoglobin, External 14.0 [facility] HCT, External 42.1 [facility] MCV, External 94.4 [facility] MCH, External 31.4 [facility] MCHC, External 33.3 [facility] PLT, External 142 [facility] RDW-CV, External 26.5 [facility] Neutrophils, External 11.0 [facility] Lymphocytes, External 59.0 [facility] Monocytes, External 23.0 [facility] Eosinophils, External 2.0 [facility] Basophils, External 2.0 [facility] ABS Neutrophils, External 0.19 [facility] ABS Lymphs, External 1.09 [facility] ABS Monocytes, External 0.40 [facility] ABS Eosinophils, External 0.04 [facility] ABS Basophils, External 0.04 [facility] Specimen Blood - Venous blood (substance) Performing Organization Address City/[facility] Code Phon e Number [facility] COMPREHENSIVE METABOLIC PANEL (CMP) (02/03/2020) Pathologist Sig nature GFR, Calculated, External 57.75 [facility] Glucose, Serum, External 115 [facility] Albumin, External 4.2 [facility] Total Alkaline Phosphatase, 71 [facility] External ALT, External 25 [facility] AST, External 22 [facility] BUN, External 17 [facility] Calculated Calcium, [facility] External Calcium, External 9.0 [facility] Chloride, External 102 [facility] CO2, External 27.8 [facility] Creatinine, External 1.22 [facility] Fasting?, External [facility] [...] on filedocumented in this encounter Care Teams Press Tender Smoke Signal Relationship Specialty Start Date End Date Dereck Schultz MD PCP - General 04/07/19 04/04/[address] [place] [phone] documented as of this encounter
--- OUTSIDE RECORDS SUMMARY | 2021-12-21 01:22 | XMS_ITS | Encounter Summary ---
:1945 Author Organization [facility] Address [address] [place] [address] Care Team Providers Name Role Phone Dereck Schultz MD Primary Care Provider [phone] Reason for Visit Reason Onset Date Comments Follow-up 01/24/2020 Encounter Details Date Type Department Care Team Description 01/24/2020 Telephone [facility] Cancer Center Hematology & St hawa Ji RN Follow-up Oncology - [facility] [address] [place], [place] [phone] Social History Tobacco Use Types Packs/Day Years [...] Telephone Encounter - Chikis Ji RN - 01/24/2020 1527 EDT Per discussion with Dr. Barillas, she requests that Praneeth decrease his Hydrea 500 mg PO to twice a day and get repeat labs in 1 week. I called Praneeth and his Augustina answered. I relayed the above information and she verbalized understanding. Praneeth to get repeat labs next week at [facility]. [facility] elephone Encounter - Chikis Ji RN - 01/24/2020 1346 EDT Outgoing call made to Praneeth (his Augustina answered). Reviewed today's lab results. Augustina is wondering if Praneeth should continue his current dose of Hydrea 500 mg TID - I told Augustina that I will check with Dr. Barillas and then follow up with her. Augustina was agreeable. documented in this encounter Plan of Treatment Upcoming Encounters Date Type Specialty Care Team Description 12/27/2021 Office Visit Hematology and Erin Barillas M D Oncology [address] [phone] (Joi diallo) 02/14/2022 Office Visit Hematology and Erin Barillas M D Oncology [address] [phone] (Joi diallo) 04/25/2022 Ancillary Procedure Cardiology 04/25/2022 Office Visit Cardiology Claire Lopez , FESTUS 130 [facility] 2[address]1 [place] [phone] (Wo rk) 05/13/2022 Office Visit Rheumatology Tod Perez NP 111 [facility], [facility] 5 [place] [phone] (Wo rk) documented as of this encounter Visit Diagnoses Not on filedocumented in this encounter Care Teams Filing Clerk Relationship Specialty Start Date End Date Dereck Schultz MD PCP - General 04/07/19 04/04/20 4 [place] [phone] documented as of this encounter
--- OUTSIDE RECORDS SUMMARY | 2021-12-21 01:22 | XMS_ITS | Encounter Summary ---
:1945 Author Organization [facility] [place] [facility] Address [address] [place] [address] Care Team Providers Name Role Phone Dereck Schultz MD Primary Care Provider [phone] Reason for Visit Reason Onset Date Comments Labs Only 02/10/2020 Encounter Details Date Type Department Care Team Description 02/10/2020 Telephone [facility] Cancer Center Hematology & [facility] hawa rodarte RN Labs Only Oncology - Main [facility] [address] [place], [place] [address] Social History Tobacco Use Types Packs/Day Years [...] Telephone Encounter - Chikis Ji RN - 02/10/2020 [address] discussion with Dr[address] Barillas, Praneeth will have repeat labs in 1 week, and he is holding Hydrea for now. Dr. Barillas ordered the BCR-ABL lab and is requesting this to be done when Praneeth gets his repeat labsdone next week. I called [facility] and spoke with Steph. I advised Steph of the above information - she made note of this request in Praneeth's record and requested me to fax the BCR-ABL order to [phone]. Faxed BCR-ABL lab order as requested. documented in this encounter Plan of Treatment Upcoming Encounters Date Type Specialty Care Team Description 12/27/2021 Office Visit Hematology and Erin Barillas M D Oncology [address] [phone] (Wo rk) 02/14/2022 Office Visit Hematology and Erin Barillas M D Oncology [address] [phone] (Wo rk) 04/25/2022 Ancillary Procedure Cardiology 04/25/2022 Office Visit Cardiology Claire Lopez NP 130 [facility] 21 [place] [phone] (Wo rk) 05/13/2022 Office Visit Rheumatology Tod Perez NP 111 [facility], [facility] 5 [place] [address] (Wo rk) documented as of this encounter Visit Diagnoses Not on filedocumented in this encounter Care Teams Slasher Hand Relationship Specialty Start Date End Date Dereck Schultz MD PCP - General 04/07/19 04/04/20 [address] [place] [phone] documented as of this encounter
--- OUTSIDE RECORDS SUMMARY | 2021-12-21 01:22 | XMS_ITS | Encounter Summary ---
:1945 Author Organization [facility] Address [address] [place] [address] Care Team Providers Name Role Phone Dereck Schultz MD Primary Care Provider [phone] Reason for Visit Reason Onset Date Comments Coordination Of Care 01/04/2020 Encounter Details Date Type Department Care Team Description 01/04/2020 Telephone [facility] Center Chikis Ji [facility] Hematology & Oncology - Main [facility] [address] [place], [place] [phone] Social History Tobacco Use Types Packs/Day Years [...] Telephone Encounter - Chikis Ji RN - 01/04/[address] Barillas and, per Praneeth's preference, she is agreeable for Praneeth to receive future therapeutic phlebotomies at [facility] as long as Praneeth's PCP office agrees to make these arrangements. Outgoing call made to Praneeth, his Augustina answered. I advised Augustina that we still need Praneeth to get his labs done on 01/10/2020, and if he needs TP then the clinic nurse will contact Praneeth's PCP andattempt to have this arranged at [facility]. But for now, we will keep Praneeth's scheduledTP appts on Shep 4 just in case these appts are needed, if they are not needed then the clinic nursewill cancel these appts. Augustina verbalized understanding and agreement with the plan. Of note, ??Praneeth's current PCP is Layne Cai at the [facility] (the current PCP Dereck Schultz listed for Praneeth has since retired). On 01/03/20 I asked our clinical dietician to please update Praneeth's PCP information in Epic. documented in this encounter Plan of Treatment Upcoming Encounters Date Type Specialty Care Team Description 12/27/2021 Office Visit Hematology and Erin Barillas M D Oncology [address] [phone] (Joi diallo) 02/14/2022 Office Visit Hematology and Erin Barillas M D Oncology [address] [phone] (Joi diallo) 04/25/2022 Ancillary Procedure Cardiology 04/25/2022 Office Visit Cardiology Claire Lopez , FESTUS 130 [facility] [address] [place] [phone] (Wo rk) 05/13/2022 Office Visit Rheumatology Tod Perez NP 111 [facility], Level [address] [place] [address] (Wo rk) documented as of this encounter Visit Diagnoses Not on filedocumented in this encounter Care Teams Animal Killer Relationship Specialty Start Date End Date Dereck Schultz MD PCP - General 04/07/19 04/04/[address] [place] [phone] documented as of this encounter
--- OUTSIDE RECORDS SUMMARY | 2021-12-21 01:22 | XMS_ITS | Encounter Summary ---
:1945 Author Organization [facility] Address [address] [place] [address] Care Team Providers Name Role Phone Dereck Schultz MD Primary Care Provider Reason for Visit Reason Onset Date Comments Labs Only 12/20/2019 Encounter Details Date Type Department Care Team Description 12/20/2019 Telephone [facility] Cancer Center Hematology & [address] hawa rodarte RN Labs Only Oncology - Main [facility] [address] [place], [place] [address] Social History Tobacco Use Types Packs/Day Years [...] Encounter - Chikis Ji RN - 12/20/2019 4550 EDT Received copy of Praneeth's labs from [facility] that were collected today. Hct is 50.3. Per parameters established by Dr. Barillas, Praneeth needs weekly TP until Hct <45. Praneeth is already scheduled for TP on Shep 4 tomorrow 12/21/2019. I messaged Praneeth via [employer] requesting him to please get his TP done as previously arranged. I emailed a copy of Praneeth's lab results to Dr. Barillas, and requested our chief quality officer to enter theresults. documented in this encounter Plan of Treatment Upcoming Encounters Date Type Specialty Care Team Description 12/27/2021 Office Visit Hematology and Erin Barillas M D Oncology [address] [phone] (Joi diallo) 02/14/2022 Office Visit Hematology and Erin Barillas M D Oncology 111 [facility] 2 [place] [phone] (Joi diallo) 04/25/2022 Ancillary Procedure Cardiology 04/25/2022 Office Visit Cardiology Claire Lopez NP 130 [facility] [address] [place] [phone] (Joi diallo) 05/13/2022 Office Visit Rheumatology Tod Perez NP 111 [facility], [facility] 5 [place] [address] (Wo rk) documented as of this encounter Visit Diagnoses Not on filedocumented in this encounter Care Teams Zoo Keeper Relationship Specialty Start Date End Date Dereck Schultz MD PCP - General 04/07/19 04/04/[address] [place] [phone] documented as of this encounter
--- OUTSIDE RECORDS SUMMARY | 2021-12-21 01:22 | XMS_ITS | Encounter Summary ---
:1945 Author Organization [facility] Address [address] [place] [address] Care Team Providers Name Role Phone Dereck Schultz MD Primary Care Provider Reason for Visit Reason Onset Date Comments Labs Only 01/03/2020 Encounter Details Date Type Department Care Team Description 01/03/2020 Telephone [facility] Cancer Center Hematology & GavrSt hawa rodarte RN Labs Only Oncology - Main [facility] [address] [place], [place] [id number] Social History Tobacco Use Types Packs/Day Years [...] Telephone Encounter - Chikis Ji RN - 01/03/2020 6776 EDT Entered external lab results from [facility], labs were collected today 01/03/2020. Praneeth's Hct is 47.8. Praneeth is scheduled for therapeutic phlebotomy on 01/04/2020 at 1145 am on [facility] 4.Outgoing call made to Praneeth, his Augustina answered the phone. I reviewed lab results and she said Praneeth is agreeable with TP on 01/03. Augustina is wondering if future therapeutic phlebotomies can be arranged at [facility]. I advised Augustina that Dr. Barillas does not have privilegesthere but I could see if Praneeth's PCP could order this at [facility]. Augustina would like me to look into this. Per Augustina, Praneeth's current PCP is Layne Cai at the [facility] (the current PCP Dereck Schultz listed for Praneeth has since retired). I asked our advanced clinical specialist to please update Praneeth's PCP information in Epic. Scanned lab results to Dr. Barillas for review. documented in this encounter Plan of Treatment Upcoming Encounters Date Type Specialty Care Team Description 12/27/2021 Office Visit Hematology and Erin Barillas M D Oncology [address] [address] (Joi diallo) 02/14/2022 Office Visit Hematology Erin Hernandez M D Oncology [address] [address] (Joi diallo) 04/25/2022 Ancillary Procedure Cardiology 04/25/2022 Office Visit Cardiology Claire Lopez NP 130 [facility] [address] [place] [address] (Wo rk) 05/13/2022 Office Visit Rheumatology Tod Perez NP 111 [facility], [address] [place] [address] (Wo rk) documented as of this encounter Procedures Procedure Name Priority Date/Time Associated Diagnosis Comme nts COMPLETE BLOOD COUNT AND Routine 01/03/2020 Res ults for this DIFFERENTIAL procedure are i n the results section . COMPREHENSIVE METABOLIC Routine 01/03/2020 Resu lts for this PANEL (CMP) procedure are i n the results section . documented in this encounter Results COMPREHENSIVE METABOLIC PANEL (CMP) (01/03/2020) Pathologist Sig nature GFR, Calculated, External >=60 POINT OF CARE [facility] Glucose, Serum, External 108 POINT OF CARE [facility] Albumin, External 4.0 POINT OF CARE [facility] Total Alkaline Phosphatase, 71 POINT OF CARE [facility] External ALT, External 29 POINT OF CARE [facility] AST, External 29 POINT OF CARE [facility] BUN, External 20 POINT OF CARE [facility] Calculated Calcium, POINT OF CARE [facility] External Calcium, External 8.8 POINT OF CARE [facility] Chloride, External 103 POINT OF CARE [facility] CO2, External 24.6 POINT OF CARE [facility] Creatinine, External 1.08 POINT OF CARE [facility] Fasting?, External POINT OF CARE [facility] Potassium, External 4.3 POINT OF CARE [facility] Sodium, External 138 POINT OF CARE [facility] Total Protein, External 6.7 POINT OF CARE [facility] Bilirubin, Total, External 0.8 POINT OF CARE [facility] Specimen Blood - Venous blood (substance) Performing Organization Address City/State/ZIP Code Phon e Number [facility] POINT OF CARE POINT OF CARE [facility] COMPLETE BLOOD COUNT AND DIFFERENTIAL (01/03/2020) Pathologist Sig nature WBC, External 4.90 POINT OF CARE [facility] RBC, External 5.43 POINT OF CARE [facility] Hemoglobin, External 15.2 POINT OF CARE [facility] HCT, External 47.8 POINT OF CARE [facility] MCV, External 88.0 POINT OF CARE [facility] MCH, External 28.0 POINT OF CARE [facility] MCHC, External 31.8 POINT OF CARE [facility] PLT, External 161 POINT OF CARE [facility] RDW-CV, External 24.8 POINT OF CARE [facility] Neutrophils, External 75.0 POINT OF CARE [facility] Lymphocytes, External 17.1 POINT OF CARE [facility] Monocytes, External 6.5 POINT OF CARE [facility] Eosinophils, External 1.0 POINT OF CARE [facility] Basophils, External 0.2 POINT OF CARE [facility] ABS Neutrophils, External 3.67 POINT OF CARE [facility] ABS Lymphs, External 0.84 POINT OF CARE [facility] ABS Monocytes, External 0.32 POINT OF CARE [facility] ABS Eosinophils, External 0.05 POINT OF CARE [facility] ABS Basophils, External 0.01 POINT OF CARE [facility] Specimen Blood - Venous blood (substance) Performing Organization Address City/State/ZIP Code Phon e Number [facility] POINT OF CARE POINT OF CARE [facility] documented in this encounter Visit Diagnoses Not on filedocumented in this encounter Care Teams Dyer Assistant Relationship Specialty Start Date End Date Dereck Schultz MD PCP - General 04/07/19 04/04/20 [address] [place] [address] documented as of this encounter
--- OUTSIDE RECORDS SUMMARY | 2021-12-21 01:22 | XMS_ITS | Encounter Summary ---
:1945 Author Organization [facility] Address [address] [place] [address] Care Team Providers Name Role Phone Dereck Schultz MD Primary Care Provider [phone] Reason for Visit Reason Onset Date Comments Follow-up 02/14/2020 Encounter Details Date Type Department Care Team Description 02/14/2020 Telephone [facility] Cancer Center Hematology & St hawa Ji RN Follow-up Oncology - [facility] [address] [place], [place] [id number] Social History Tobacco Use Types Packs/Day Years [...] Telephone Encounter - Chikis Ji RN - 02/14/2020 1453 EDT [address] discussion with Dr[address] Barillas, Praneeth can restart Hydrea 500 mg daily and he needs to get repeat labs in 1 week. Outgoing call made to Praneeth - I advised him of the above information from Dr. Barillas and he verbalizedunderstanding and agreement. Outgoing call made to Praneeth's Augustina - no answer so I left a voicemail with the above informationfrom Dr. Barillas. elephone Encounter - Chikis Ji RN - 02/14/2020 1413 EDT Entered external lab results collected on 02/14/2020 from [facility] lab. Of note, [facility] lab was collected but it gets sent to [facility] so it will not result for a few days. [facility] lab said they will fax the final result to the clinic fax number [phone]. documented in this encounter Plan of Treatment Upcoming Encounters Date Type Specialty Care Team Description 12/27/2021 Office Visit Hematology and Erin Barillas M D Oncology 111 [facility] 2 [place] [address] (Joi diallo) 02/14/2022 Office Visit Hematology and Erin Barillas M D Oncology 111 [facility] 2 [place] [address] (Joi diallo) 04/25/2022 Ancillary Procedure Cardiology 04/25/2022 Office Visit Cardiology Claire Lopez , [facility] 130 [facility] [address] [place] [phone] (Joi diallo) 05/13/2022 Office Visit Rheumatology Tod Perez, [facility] 111 [facility], [address] [place] [address] (Joi diallo) documented as of this encounter Procedures Procedure Name Priority Date/Time Associated Diagnosis Comme nts COMPLETE BLOOD COUNT AND Routine 02/14/2020 Res ults for this DIFFERENTIAL procedure are i n the results section . COMPREHENSIVE METABOLIC Routine 02/14/2020 Resu lts for this PANEL (CMP) procedure are i n the results section . documented in this encounter Results COMPLETE BLOOD COUNT AND DIFFERENTIAL (02/14/2020) Pathologist Sig nature WBC, External 6.10 [facility] POINT OF CARE RBC, External 4.57 [facility] POINT OF CARE Hemoglobin, External 14.3 [facility] POINT OF CARE HCT, External 43.5 [facility] POINT OF CARE MCV, External 95.2 [facility] POINT OF CARE MCH, External 31.3 [facility] POINT OF CARE MCHC, External 32.9 [facility] POINT OF CARE PLT, External 236 [facility] POINT OF CARE RDW-CV, External 25.2 [facility] POINT OF CARE Neutrophils, External 61.9 [facility] POINT OF CARE Lymphocytes, External 28.7 [facility] POINT OF CARE Monocytes, External 6.6 [facility] POINT OF CARE Eosinophils, External 1.8 [facility] POINT OF CARE Basophils, External 0.7 [facility] POINT OF CARE ABS Neutrophils, External 3.78 [facility] POINT OF CARE ABS Lymphs, External 1.75 [facility] POINT OF CARE ABS Monocytes, External 0.40 [facility] POINT OF CA RE ABS Eosinophils, External 0.11 [facility] POINT OF CARE ABS Basophils, External 0.04 [facility] POINT OF CA RE Specimen Blood - Venous blood (substance) Performing Organization Address City/State/ZIP Code Phon e Number [facility] POINT OF CARE COMPREHENSIVE METABOLIC PANEL (CMP) (02/14/2020) Pathologist Sig nature GFR, Calculated, External >60 [facility] POINT OF CARE Glucose, Serum, External 128 [facility] POINT OF C ARE Albumin, External 4.1 [facility] POINT OF CARE Total Alkaline Phosphatase, 69 [facility] POINT O F CARE External ALT, External 26 [facility] POINT OF CARE AST, External 22 [facility] POINT OF CARE BUN, External 24 [facility] POINT OF CARE Calculated Calcium, [facility] POINT OF CARE External Calcium, External 9.1 [facility] POINT OF CARE Chloride, External 106 [facility] POINT OF CARE CO2, External 28.5 [facility] POINT OF CARE Creatinine, External 1.14 [facility] POINT OF CARE Fasting?, External [facility] POINT OF CARE Potassium, External 4.9 [facility] POINT OF CARE Sodium, External 141 [facility] POINT OF CARE Total Protein, External 6.9 [facility] POINT OF CA RE Bilirubin, Total, External 0.5 [facility] POINT OF CARE Specimen Blood - Venous blood (substance) Performing Organization Address City/State/ZIP Code Phon e Number [facility] POINT OF CARE documented in this encounter Visit Diagnoses Not on filedocumented in this encounter Care Teams Service Developer Relationship Specialty Start Date End Date Dereck Schultz MD PCP - General 04/07/19 04/04/[address] [place] [address] documented as of this encounter
--- OUTSIDE RECORDS SUMMARY | 2021-12-21 01:22 | XMS_ITS | Encounter Summary ---
:1945 Author Organization [facility] Address [address] [place] [address] Care Team Providers Name Role Phone Dereck Schultz MD Primary Care Provider Reason for Visit Reason Onset Date Comments Labs Only 12/14/2019 Encounter Details Date Type Department Care Team Description 12/14/2019 Telephone [facility] Center Hematology & GavrSt hawa rodarte RN Labs Only Oncology - Main [facility] [address] [place], [place] [address] Social History Tobacco Use Types Packs/Day Years [...] Telephone Encounter - Chikis Ji RN - 12/14/2019 1332 EDT Received Praneeth's lab results collected today from [facility]. Left voicemail for Praneeth and his Augustina letting them know we received the results and Praneeth shouldattend his previously arranged therapeutic phlebotomy appointment on Shep 4 tomorrow 12/15/2019 at 1430. I requested them to please call back if they have any questions or concerns. elephone Encounter - Chikis Ji RN - 12/14/2019 1149 EDT Called [facility] to inquire about Praneeth's CBCD/CMP results from this morning.I spoke with aLyne - she said the results are complete and she will fax the results to [facility] fax [phone]. Will continue to monitor for incoming fax. documented in this encounter Plan of Treatment Upcoming Encounters Date Type Specialty Care Team Description 12/27/2021 Office Visit Hematology and Erin Barillas M D Oncology [address] [address] (Joi diallo) 02/14/2022 Office Visit Hematology and Erin Barillas M D Oncology [address] [phone] (Joi diallo) 04/25/2022 Ancillary Procedure Cardiology 04/25/2022 Office Visit Cardiology Claire Lopez , [facility] [place] [address] (Wo rk) 05/13/2022 Office Visit Rheumatology Tod Perez NP 111 [facility] 5 [place] [address] (Wo rk) documented as of this encounter Visit Diagnoses Not on filedocumented in this encounter Care Teams Medical Front Desk Specialist Relationship Specialty Start Date End Date Dereck Schultz MD PCP - General 04/07/19 04/04/20 [address] [place] [address] documented as of this encounter
--- OUTSIDE RECORDS SUMMARY | 2021-12-21 01:22 | XMS_ITS | Encounter Summary ---
:1945 Author Organization [facility] Address [address] [place] [address] Care Team Providers Name Role Phone Dereck Schultz MD Primary Care Provider [phone] Reason for Visit Reason Onset Date Comments Critical Value 02/03/2020 Encounter Details Date Type Department Care Team Description 02/03/2020 Telephone [facility] Center Erin Barillas MD Critical Value Hematology & Oncology - 111 [facility], [address], [address] [place], [place] [id number] [place] [address] [phone] (Wo rk) Social History Tobacco Use [...] this encounter Miscellaneous Notes Telephone Encounter - Sony Karin - 02/03/2020 1241 EDT Spoke to Praneeth. Scheduled him for a video appt on 02/10/[address] Barillas at 10am. Emailed Zoom link. elephone Encounter - Chikis Ji RN - 02/03/2020 0946 EDT Per discussion with Dr. Barillas, Praneeth should continue to hold his Hydrea, continue taking his prophylactic antimicrobials, and should get repeat labs on Fri02/07/2020. Outgoing call made to Praneeth, he answered and handed the phone to his Augustina. I reviewed Praneeth's lab results from today, advised that Praneeth should continue to hold the Hydrea, continue taking his prophylactic antimicrobials, and get repeat labs on 02/06. I also reinforced that Praneeth should continueneutropenic precautions and he should call the clinic immediately if he develops symptoms including but not limited to a temp of 100.4 or greater, cough, chills, feeling run-down, vomiting, diarrhea, or any skin issues like a poorly healing cut. Augustina verbalized understanding and agreement. Of note, Augustina reports Praneeth has lost 7 lbs in the past 2 weeks despite his appetite/food intake staying the same - I told Augustina that I will notify Dr. Barillas. elephone Encounter - Chikis Ji RN - 02/03/2020 0857 EDT Clinical Staff notified with Critical Results Provider Notified: Provider Name: Dr. Barillas Date: 02/03/2020 Time: 0900 AM Treatment Plan: Patient Notified: Date: Time: Praneeth not yet notified. Routed encounter to Dr. Barillas for review. Also called [facility] lab and requested copy of Praneeth's lab results from today. elephone Encounter - Augustina Salazar - 02/03/2020 0814 EDT Non Clinical Staff notified with Critical Results Ordering Provider: HERLINDA Date and Time Test was Performed: 02/03/20 @ 7:10 AM Results: WBC 1.76 ANC 0.19 Result Read Back and Verified: yes Nursing/Provider Notified:YES Nursing/Provider Name: CHIKIS Mohamud Date: 02/03/20 Time: 8:16 AM documented in this encounter Plan of Treatment Upcoming Encounters Date Type Specialty Care Team Description 12/27/2021 Office Visit Hematology and Erin Barillas M D Oncology [address] [place] [phone] (Wo rk) 02/14/2022 Office Visit Hematology and Erin Barillas M D Oncology [address] [place] [phone] (Wo rk) 04/25/2022 Ancillary Procedure Cardiology 04/25/2022 Office Visit Cardiology Claire Lopez NP 130 [facility] 21 [place] [address] (Wo rk) 05/13/2022 Office Visit Rheumatology Tod Perez NP 111 [facility] [place] [facility] 5 [place] [address] (Wo rk) documented as of this encounter Visit Diagnoses Not on filedocumented in this encounter Care Teams Real Time Analyst Relationship Specialty Start Date End Date Dereck Schultz MD PCP - General 04/07/19 04/04/[address] [place] [address] documented as of this encounter
--- OUTSIDE RECORDS SUMMARY | 2021-12-21 01:22 | XMS_ITS | Encounter Summary ---
:[address] [facility] Address [address] [place] [address] Care Team Providers Name Role Phone Dereck Schultz MD Primary Care Provider [phone] Encounter Details Date Type Department Care Team Description 12/21/2019 Hospital Encounter [facility] [address] [place], [place] [address] Social History Tobacco Use Types Packs/Day Years [...] Sign Reading Time Taken Comments Blood Pressure 137/68 12/21/2019 1437 EDT Pulse - - Temperature 36.7 ??C (98.1 ??F) 12/21/2019 1437 EDT Respiratory Rate 16 12/21/2019 1437 EDT Oxygen Saturation 96% 12/21/2019 1437 EDT Inhaled Oxygen Concentration - - Weight [...] encounter Progress Notes Judith Granados RN - 12/21/2019 1416 EDT Patient Praneeth Villanueva [facility] for therapeutic phlebotomy related to D45. Pt identification verified verbally and on patient armband. Peripheral IV Placed. Therapeutic phlebotomy initiated at 1410 completed at 1430 Pt replaced with 250 ml NS Pt tolerated infusion well without signs or symptoms of infusion reaction. Peripheral IV removed. Ptleft infusion center via ambulation. documented in this encounter Plan of Treatment Upcoming Encounters Date Type Specialty Care Team Description 12/27/2021 Office Visit Hematology and Erin Barillas M D Oncology 111 [facility] 2 [place] [address] (Wo rk) 02/14/2022 Office Visit Hematology and Erin Barillas M D Oncology [address] [phone] (Wo rk) 04/25/2022 Ancillary Procedure Cardiology 04/25/2022 Office Visit Cardiology Claire Lopez NP 130 [facility] [address] [place] [address] (Wo rk) 05/13/2022 Office Visit Rheumatology Tod Perez NP 111 [facility] 5 [place] [address] (Wo rk) documented as of this encounter Visit Diagnoses Not on filedocumented in this encounter Care Teams Green Ware Caster Relationship Specialty Start Date End Date Dereck Schultz MD PCP - General 04/07/19 04/04/20 [facility] [place] [phone] documented as of this encounter
--- OUTSIDE RECORDS SUMMARY | 2021-12-21 01:22 | XMS_ITS | Encounter Summary ---
:1945 Author Organization [facility] Address [address] [place] [address] Care Team Providers Name Role Phone Dereck Schultz MD Primary Care Provider [phone] Encounter Details Date Type Department Care Team Description 12/28/2019 Orders Only [facility] Erin Barillas MD Hematology & Oncology - 111 [facility], [address] [place], [place] [id number] [place] [phone] (Wo rk) Social History Tobacco Use [...] capsule 3 times daily for 30 days. documented in this encounter Plan of Treatment Upcoming Encounters Date Type Specialty Care Team Description 12/27/2021 Office Visit Hematology and Erin Barillas M D Oncology [address] [place] [phone] (Wo rk) 02/14/2022 Office Visit Hematology and Erin Barillas M D Oncology [address] [place] [phone] (Wo rk) 04/25/2022 Ancillary Procedure Cardiology 04/25/2022 Office Visit Cardiology Claire Lopez NP [address] [place] [phone] (Wo rk) 05/13/2022 Office Visit Rheumatology Tod Perez NP [address] [address] (Wo rk) documented as of this encounter Visit Diagnoses Not on filedocumented in this encounter Care Teams Upholstery Trimmer Relationship Specialty Start Date End Date Dereck Schultz MD PCP - General 04/07/19 04/04/[address] [place] [phone] documented as of this encounter
--- OUTSIDE RECORDS SUMMARY | 2021-12-21 01:22 | XMS_ITS | Encounter Summary ---
:1945 Author Organization [facility] Address [address] [place] [address] Care Team Providers Name Role Phone Dereck Schultz MD Primary Care Provider [phone] Reason for Visit Reason Onset Date Comments Results 12/14/2019 Encounter Details Date Type Department Care Team Description 12/14/2019 Telephone [facility] Erin Barillas MD Results Hematology & Oncology - 111 [facility], [address], [address] [place], [place] [id number] [place] [phone] (Wo rk) Social History Tobacco Use Types [...] Notes Telephone Encounter - Augustina Salazar - 12/14/2019 1329 EDT LABS ENTERED FROM [facility]. Augustina Salazar 12/14/2019 13:29 documented in this encounter Plan of Treatment Upcoming Encounters Date Type Specialty Care Team Description 12/27/2021 Office Visit Hematology and Erin Barillas M D Oncology [address] [place] [phone] (Wo rk) 02/14/2022 Office Visit Hematology and Erin Barillas M D Oncology [address] [place] [phone] (Wo rk) 04/25/2022 Ancillary Procedure Cardiology 04/25/2022 Office Visit Cardiology Claire Lopez NP 130 [facility] 2[address]1 [place] [phone] (Wo rk) 05/13/2022 Office Visit Rheumatology Tod Perez NP 111 [facility] 5 [place] [phone] (Wo rk) documented as of this encounter Procedures Procedure Name Priority Date/Time Associated Diagnosis Comme nts COMPREHENSIVE METABOLIC Routine 12/14/2019 Resu lts for this PANEL (ONCOLOGY USE procedur e are in the ONLY-INC MG) results section . COMPLETE BLOOD COUNT AND Routine 12/14/2019 Res ults for this DIFFERENTIAL procedure are i n the results section . documented in this encounter Results (ABNORMAL) COMPLETE BLOOD COUNT AND DIFFERENTIAL (12/14/2019) Pathologist Sig nature WBC, External 5.20 [facility] RBC, External 6.56 (A) 4.50 - 6.00 [facility] Hemoglobin, External 17.3 [facility] HCT, External 55.1 (A) 40.0 - 50.0 [facility] MCV, External 84.0 [facility] MCH, External 26.4 (A) 27.0 - 33.0 [facility] MCHC, External 31.4 (A) 32.0 - 36.0 [facility] PLT, External 454 (A) 130 - 400 [facility] RDW-CV, External 23.5 (A) 11.8 - 14.1 [facility] Neutrophils, 68.1 [facility] Lymphocytes, 21.2 [facility] Monocytes, External 5.8 [facility] Eosinophils, 3.3 [facility] Basophils, External 1.0 [facility] ABS Neutrophils, 3.55 [facility] ABS Lymphs, External 1.10 (A) 1.2 - 3.4 [facility] ABS Monocytes, 0.30 [facility] ABS Eosinophils, 0.17 [facility] ABS Basophils, 0.05 [facility] Specimen Blood - Venous blood (substance) Performing Organization Address City/State/ZIP Code Phon e Number [facility] (ABNORMAL) COMPREHENSIVE METABOLIC PANEL (ONCOLOGY USE ONLY-INC MG) (12/14/2019) Pathologist Sig nature Calcium, External 9.6 [facility] CO2, External 29.0 [facility] AST, External 20 [facility] ALT, External 22 [facility] Bilirubin, Total, 0.7 [facility] Creatinine, External 1.22 [facility] Calculated Calcium, [facility] Anion Gap, External [facility] Total Protein, 7.0 [facility] Potassium, External 5.1 [facility] Total Alkaline 83 [facility] Phosphatase, [facility] Albumin, External 4.1 [facility] BUN, External 18 [facility] GFR, Calculated, 57.75 [facility] Fasting?, External [facility] Chloride, External 102 [facility] Glucose, Serum, 119 (A) 74 - 106 [facility] Sodium, External 138 [facility] Magnesium, External [facility] Specimen Blood - Venous blood (substance) Performing Organization Address City/State/ZIP Code Phon e Number [facility] documented in this encounter Visit Diagnoses Not on filedocumented in this encounter Care Teams Forestry Workers Relationship Specialty Start Date End Date Dereck Schultz MD PCP - General 04/07/19 04/04/[address] [place] [phone] documented as of this encounter
--- OUTSIDE RECORDS SUMMARY | 2021-12-21 01:23 | XMS_ITS | Encounter Summary ---
:1945 Author Organization [facility] Address [address] [place] [address] Care Team Providers Name Role Phone Dereck Schultz MD Primary Care Provider [phone] Reason for Visit Reason Comments Joint Pain hands hard time closing them Encounter Details Date Type Department Care Team Description 12/27/2015 Office Visit [facility] Marie Stanford arthritis (Primary Dx); Rheumatology & M, PADomingaC Encounter for long-term (current) use of medications Immunology - Main [address] [facility] 4 [address] [place] [phone] Social History Tobacco Use Types Packs/Day Years [...] Sign Reading Time Taken Comments Blood Pressure 135/78 12/27/2015 0913 EDT Pulse 66 12/27/2015912 EDT Temperature - - Respiratory Rate 18 12/27/2015912 EDT Oxygen Saturation - - Inhaled Oxygen Concentration - - Weight 112.5 kg (248 lb) 12/27/2015912 EDT Height 183.5 cm (6' 0.25) 12/27/2015912 EDT Body Mass Index 33.4 12/27/2015912 EDT documented in this encounter Functional Status Functional Status Response Date of Assessment Because of a physical, mental, or emotional condition, No 12/27/2015 does this person have difficulty doing errands alone such as visiting a doctor's office or shopping? Cognitive Status Response Date of Assessment Because of a physical, mental, or emotional condition, No 12/27/2015 does this person have serious difficulty concentrating, remembering, or making decisions? 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 Continue Methotrexate 8 tabs once weekly. Remember to have your labs checked every 3-4 months to monitor Methotrexate.?? Due again in April. Please let me know if your hands become more problematic and we'll adjust your medications.?? Otherwise I'll plan to see you back in 8 months. documented in this encounter Progress Notes Marie Stanford PA - 12/27/2015 09 EDT Images from the original note were not included. Division of Rheumatology and Clinical Immunology Chief Complaint Patient presents with ??? Joint Pain hands hard time closing them HPI: Mr. Praneeth Villanueva is a 70 y.o. male here for follow up of seronegative inflammatory polyarthritis.?? 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 Changes since last visit: Tapered off Prednisone. Remains on Methotrexate 8 tabs weekly. Going ok. Pretty much under control. No major flares. Affected joints: Hands. Stiff. Pain when tries to force them to close. Can't make a full fist. Makes it hard to hang on to the weedwacker. AM stiffness: Lasts 30 minutes (improves with hot shower) Physical activity: Stays active around the house Functional Limitations: See above Current Outpatient Prescriptions Medication Sig Dispense Refill ??? aspirin chewable 81 mg tablet Take 81 mg by mouth daily. ??? finasteride (PROSCAR) 5 mg tablet Take 5 mg by mouth daily. ??? folic acid (FOLVITE) 1 mg tablet Take 1 Tab by mouth daily. 90 Tab 3 ??? ibuprofen (MOTRIN) 200 mg tablet Take 200 mg by mouth every 6 hours as needed for Pain. Infrequent. Once in awhile. ??? LACTOBACILLUS ACIDOPHILUS (PROBIOTIC ORAL) Take by mouth daily ??? methotrexate 2.5 mg tablet Take 8 Tabs by mouth once a week. Recent canker sore. Otherwise tolerates ok without reported side effects. No recent infections. 96 Tab 1 ??? metoprolol (LOPRESSOR) 25 mg tablet Take 25 mg by mouth daily. ??? omeprazole (PRILOSEC) 20 mg capsule Take 40 mg by mouth daily. ??? predniSONE (DELTASONE) 1 mg tablet Decrease Prednisone to 4 mg daily for 1 month then slowly taper by 1 mg every month as tolerated Now off. 120 Tab 2 ??? RANITIDINE HCL ORAL Take by mouth. ??? simvastatin (ZOCOR) 40 mg tablet Take 40 mg by mouth every evening. Acute gastritis. Needed scoping. Increased Omeprazole dose and Ranitidine was added. Allergies include: Lisinopril Past Medical History Diagnosis Date ??? Biliary colic ??? Cataract bilateral ??? Enlarged prostate ??? GERD (gastroesophageal reflux disease) ??? 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 Hypercholesteremia ??? Hypertension ??? Inguinal hernia bilateral ??? Pacemaker ??? Sleep apnea weaing cpap Past Surgical History Procedure Laterality Date ??? Cholecystectomy 2005 ??? Cataract removal bilateral ??? Hernia repair Family History Problem Relation Age of Onset ??? Diabetes Father ??? Diabetes Brother ??? Arthritis Mother unkown type Social History Substance Use Topics ??? Smoking status: Former Smoker Packs/day: 3.00 Years: 20.00 Types: Cigarettes, Cigars Quit date: 09/15/1980 ??? Smokeless tobacco: Never Used Comment: Quit >30 years ago ??? Alcohol use Yes Comment: Occasional beer REVIEW OF SYSTEMS: As documented by Nurses/MAs during this visit and reviewed by me (LISSA). PHYSICAL EXAMINATION: Constitutional: Pleasant, well developed, well nourished male in no acute distress. Visit Vitals ??? BP 135/78 ??? Pulse 66 ??? Resp 18 ??? Ht 183.5 cm (72.25) ??? Wt (!) 112.5 kg (248 lb) ??? BMI 33.4 kg/m2 HEENT: No occular inflammation. No oral ulcers. No lymphadenopathy. RESPIRATORY: Clear to auscultation bilaterally; no adventitious sounds. CARDIOVASCULAR: Regular rate and rhythm, normal S1S2, no murmurs/gallops/rubs. NEUROLOGIC: Mental status normal. Walks without an assistive device. Moves on/off exam table independently. Muscle strength not formally assessed but moving all extremities against gravity. MUSCULOSKELETAL: A complete msk exam including bilateral upper and lower extremities was done and was normal except for abnormal findings shown on homonculus. RAPID3 Score: As documented by Nurses/MAs during this visit and reviewed by me (LISSA). LABS: No visits with results within 6 Month(s) from this visit. Latest known visit with results is: Phlebotomy Only on 03/29/2015 Component Date Value ??? WBC 03/29/2015 7.21 ??? RBC 03/29/2015 4.89 ??? Hemoglobin 03/29/2015 14.6 ??? HCT 03/29/2015 44.5 ??? MCV 03/29/2015 91 ??? MCH 03/29/2015 29.9 ??? MCHC 03/29/2015 32.9 ??? RDW-CV 03/29/2015 15.5* ??? RDW-SD 03/29/2015 48.6* ??? PLT 03/29/2015 219 ??? MPV 03/29/2015 10.1 ??? Neutrophils 03/29/2015 66.1 ??? Lymphocytes 03/29/2015 25.6 ??? Monocytes 03/29/2015 6.7 ??? Eosinophils 03/29/2015 1.0 ??? Basophils 03/29/2015 0.6 ??? ABS Neutrophils 03/29/2015 4.76 ??? ABS Lymphs 03/29/2015 1.84 ??? ABS Monocytes 03/29/2015 0.49 ??? ABS Eosinophils 03/29/2015 0.08 ??? ABS Basophils 03/29/2015 0.04 ??? Type of Diff: 03/29/2015 Automated ??? Potassium 03/29/2015 4.3 ??? Sodium 03/29/2015 139 ??? Chloride 03/29/2015 104 ??? CO2 03/29/2015 25 ??? Total Alkaline Phosphata* 03/29/2015 62 ??? Bilirubin, Total 03/29/2015 0.5 ??? AST 03/29/2015 14* ??? ALT 03/29/2015 33 ??? Albumin 03/29/2015 4.1 ??? Total Protein 03/29/2015 6.1* ??? Creatinine 03/29/2015 0.90 ??? GFR, Calculated 03/29/2015 86 ??? BUN 03/29/2015 13 ??? Calcium 03/29/2015 9.0 ??? Calculated Calcium 03/29/2015 9.3 ??? Glucose, Serum 03/29/2015 93 ??? Fasting? 03/29/2015 No Imaging: None recent/pertinent Impression/Plan: 1. Inflammatory arthritis Mild activity but remains functional and does not want to take more medication. 2. Encounter for long-term (current) use of medications Continue regular labs to monitor Methotrexate. - Hemagram & Differential; Standing - Comprehensive Metabolic Panel (CMP); Standing Patient Instructions No changes today.?? Continue Methotrexate 8 tabs once weekly. Remember to have your labs checked every 3-4 months to monitor Methotrexate.?? Due again in April. Please let me know if your hands become more problematic and we'll adjust your medications.?? Otherwise I'll plan to see you back in 8 months. Barriers to learning identified: No Patient verbalizes understanding and agrees with plan: Yes I was supervised by Dr. Rosales who was in the suite and immediately available for the entire time the service was provided. ALMA Bills 12/27/2015 9:22 Attestation statement: Supervising Physician Sudhir Rosales MD Della Magaña - 12/27/2015 0916 EDT REVIEW OF SYSTEMS: Yes No Yes No Fever X Joint pain x Weight gain or loss pounds (lbs) Duration of AM joint stiffness 30 min Eye pain or dryness X Numbness/tingling X Mouth or nose sores X Heart burn / Nausea X Chest pain X Diarrhea X Shortness of Breath X Blood in stool X Cough X Burning on urination X Skin rash X Hand/Foot color change in cold X documented in this encounter Plan of Treatment Upcoming Encounters Date Type Specialty Care Team Description 12/27/2021 Office Visit Hematology and Erin Barillas M D Oncology [address] [phone] (Wo rk) 02/14/2022 Office Visit Hematology and rEin Barillas M D Oncology [address] [phone] (Wo rk) 04/25/2022 Ancillary Procedure Cardiology 04/25/2022 Office Visit Cardiology Claire Lopez NP 130 [facility] [address] [phone] (Wo rk) 05/13/2022 Office Visit Rheumatology Tod Perez NP [address] [phone] (Wo rk) documented as of this encounter Visit Diagnoses Diagnosis Inflammatory arthritis - Primary Unspecified inflammatory polyarthropathy Encounter for long-term (current) use of medications Encounter for long-term (current) use of other medications documented in this encounter Discontinued Medications Medication Sig Discontinue Reason Start Date End Date predniSONE (DELTASONE) Decrease Prednisone to Therapy completed 12/27/2015 1 mg tablet 4 mg daily for 1 month then slowly taper by 1 mg every month as tolerated documented as of this encounter Historical Medications This list may reflect changes made after this encounter. Medication Sig Dispensed Refills Start Date End Date RANITIDINE HCL ORAL Take 300 mg by mouth 0 11/17/2019 daily. added in this encounter Care Teams Fibre Technologist Relationship Specialty Start Date End Date Dereck Schultz MD PCP - General 10/19/08 02/12/[address] [place] [phone] documented as of this encounter
--- OUTSIDE RECORDS SUMMARY | 2021-12-21 01:23 | XMS_ITS | Encounter Summary ---
:1945 Author Organization [facility] Address [address] [place] [address] Care Team Providers Name Role Phone Dereck Schultz MD Primary Care Provider [phone] Reason for Visit Reason Onset Date Comments Medications Refill 08/11/2016 Encounter Details Date Type Department Care Team Description 08/11/2016 Refill [facility] Marie Stanford, [facility] Refill Rheumatology & Immunology [address] [place] [address] [place] [address] [phone] (Wo rk) Social History Tobacco Use Types [...] Start Date End Date methotrexate 2.5 mg tablet Take 8 Tabs by 96 Tab 0 08/1211/04/2016 mouth once a week. documented in this encounter Miscellaneous Notes Telephone Encounter - Zari Mccabe RN - 08/12/2016 0954 EST From: Praneeth Villanueva To: Marie Stanford PA Sent: 08/11/2016 11:08 EST Subject: Medication Renewal Request Original authorizing provider: ALMA Bills would like a refill of the following medications: methotrexate 2.5 mg tablet [ALMA Bills] Preferred pharmacy: [address] Comment: documented in this encounter Plan of Treatment Upcoming Encounters Date Type Specialty Care Team Description 12/27/2021 Office Visit Hematology and Erin Barillas M D Oncology [address] [place] [phone] (Joi diallo) 02/14/2022 Office Visit Hematology and Erin Barillas M D Oncology [address] [place] [phone] (Joi rk) 04/25/2022 Ancillary Procedure Cardiology 04/25/2022 Office Visit Cardiology Claire Lopez NP 130 [facility] [address] [phone] (Wo rk) 05/13/2022 Office Visit Rheumatology Tod Preez NP 111 [facility] 5 [place] [address] (Wo rk) documented as of this encounter Visit Diagnoses Not on filedocumented in this encounter Discontinued Medications Medication Sig Discontinue Reason Start Date End Date methotrexate 2.5 mg tablet Take 8 Tabs by Reorder 12/08/2015 08/11/2016 mouth once a week. documented as of this encounter Care Teams Precipitator Operator Relationship Specialty Start Date End Date Dereck Schultz MD PCP - General 10/19/08 02/12/[address] [place] [phone] documented as of this encounter
--- OUTSIDE RECORDS SUMMARY | 2021-12-21 01:23 | XMS_ITS | Encounter Summary ---
:1945 Author Organization [facility] Address [address] [place] [address] Care Team Providers Name Role Phone Dereck Schultz MD Primary Care Provider [phone] Encounter Details Date Type Department Care Team Description 09/30/2019 Documentation Visit [facility] Kinsey Parry RN Hematology & Oncology [address] [place] [address] [address] [place] [address] Social History Tobacco Use Types Packs/Day Years [...] documented as of this encounter Progress Notes Luis Felipe Parry RN - 09/30/2019 0916 EDT Pt referred for long standing polycythemia. 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 Pt needs MPN panel drawn by PCP and then apt in hematology in October when he returns from [place]. PCP will be notified. documented in this encounter Plan of Treatment Upcoming Encounters Date Type Specialty Care Team Description 12/27/2021 Office Visit Hematology and Erin Barillas M D Oncology [address] [phone] (Wo rk) 02/14/2022 Office Visit Hematology and Erin Barillas M D Oncology [address] [phone] (Wo rk) 04/25/2022 Ancillary Procedure Cardiology 04/25/2022 Office Visit Cardiology Claire Lopez NP 130 [facility] [address] [phone] (Wo rk) 05/13/2022 Office Visit Rheumatology Tod Perez NP 111 [facility] 5 [place] [address] (Wo rk) documented as of this encounter Visit Diagnoses Not on filedocumented in this encounter Care Teams Architectural Manager Relationship Specialty Start Date End Date Dereck Schultz MD PCP - General 04/07/19 04/04/20 4 [place] [phone] documented as of this encounter
--- OUTSIDE RECORDS SUMMARY | 2021-12-21 01:23 | XMS_ITS | Encounter Summary ---
:1945 Author Organization [facility] Address [address] [place] [address] Care Team Providers Name Role Phone Dereck Schultz MD Primary Care Provider [phone] Reason for Visit Reason Onset Date Comments Medications Refill 09/11/2015 Encounter Details Date Type Department Care Team Description 09/11/2015 Refill [facility] Marie Stanford, [facility] Refill Rheumatology & Immunology [address] [place] [address] [place] [address] [phone] (Wo rk) Social History Tobacco Use Types [...] a physical, mental, or emotional condition, No 06/29/2015 does this person have difficulty doing errands alone such as visiting a doctor's office or shopping? Cognitive Status Response Date of Assessment Because of a physical, mental, or emotional condition, No 06/29/2015 does this person have serious difficulty concentrating, remembering, or making decisions? documented as of this encounter Ordered Prescriptions Prescription Sig Dispensed Refills Start Date End Date folic acid (FOLVITE) 1 mg Take 1 Tab by mouth 90 Tab 3 0 09/11/2015 09/09/2016 tablet daily. documented in this encounter Miscellaneous Notes Telephone Encounter - Claudia Salgado RN - 09/11/2015 1614 EDT From: Praneeth Villanueva To: Marie Stanford PA Sent: 09/11/2015 16:06 EDT Subject: Medication Renewal Request Original authorizing provider: ALMA Bills would like a refill of the following medications: folic acid (FOLVITE) 1 mg tablet [ALMA Bills] Preferred pharmacy: [address] Comment: Is it possible to get a 90 day prescription for the folic acid? Please renew at [facility] in [facility]. Thank you. documented in this encounter Plan of Treatment Upcoming Encounters Date Type Specialty Care Team Description 12/27/2021 Office Visit Hematology and Erin Barillas M D Oncology [address] [phone] (Joi diallo) 02/14/2022 Office Visit Hematology and Erin Barillas M D Oncology [address] [phone] (Joi diallo) 04/25/2022 Ancillary Procedure Cardiology 04/25/2022 Office Visit Cardiology Claire Lopez , [facility] 130 [facility] [address] [phone] (Joi diallo) 05/13/2022 Office Visit Rheumatology Tod Perez, [facility] 111 [facility], [address] [place] [phone] (Wo rk) documented as of this encounter Visit Diagnoses Not on filedocumented in this encounter Discontinued Medications Medication Sig Discontinue Reason Start Date End Date folic acid (FOLVITE) 1 mg Take 1 Tab by mouth Reorder 12/20/19 15 09/11/2015 tablet daily documented as of this encounter Care Teams Nut Roaster Helper Relationship Specialty Start Date End Date Dereck Schultz MD PCP - General 10/19/08 02/12/[address] [place] [phone] documented as of this encounter
--- OUTSIDE RECORDS SUMMARY | 2021-12-21 01:23 | XMS_ITS | Encounter Summary ---
:1945 Author Organization [facility] Address [address] [place] [address] Care Team Providers Name Role Phone Dereck Schultz MD Primary Care Provider [phone] Reason for Visit Reason Onset Date Comments Appointment Related 11/24/2019Saturday 11/25 Encounter Details Date Type Department Care Team Description 11/24/2019 Telephone [facility] Erin Barillas MD Appointment Related Hematology & Oncology 111 [facility] (Saturday 11/25) - [facility], [facility] 111 [facility], [address] [place], [place] [address] [place] [address] [phone] (Wo rk) Social History Tobacco Use [...] this encounter Miscellaneous Notes Telephone Encounter - Libra Rich - 11/25/2019 0940 EDT Called and scheduled on 11/25 at 930 elephone Encounter - Miley Verde - 11/24/2019 1252 EDT Please call to schedule appt for 11/25 as per RN note as soon as possible documented in this encounter Plan of Treatment Upcoming Encounters Date Type Specialty Care Team Description 12/27/2021 Office Visit Hematology and Erin Barillas M D Oncology [address] [phone] (Joi diallo) 02/14/2022 Office Visit Hematology and Erin Barillas M D Oncology [address] [phone] (Joi rk) 04/25/2022 Ancillary Procedure Cardiology 04/25/2022 Office Visit Cardiology Claire Lopez NP 130 [facility] 21 [place] [phone] (Wo rk) 05/13/2022 Office Visit Rheumatology Tod Perez NP 111 [facility] 5 [place] [phone] (Joi rk) documented as of this encounter Visit Diagnoses Not on filedocumented in this encounter Care Teams Clinical Research Analyst Relationship Specialty Start Date End Date Dereck Schultz MD PCP - General 04/07/19 04/04/[address] [place] [phone] documented as of this encounter
--- OUTSIDE RECORDS SUMMARY | 2021-12-21 01:23 | XMS_ITS | Encounter Summary ---
:1945 Author Organization [facility] Address [address] [place] [address] Care Team Providers Name Role Phone Dereck Schultz MD Primary Care Provider [phone] Reason for Referral Laboratory Services (Routine) - New Request Specialty Diagnoses / Procedures Referred By Contact Refer red To Contact Diagnoses Polycythemia Erin Barillas MD Procedures ERYTHROPOIETIN 111 [facility] 2 [place] [address] Referral ID Status Reason Start Date Expiration Date Visits V isits Requested Authorized [id number] New Request 11/04/2019 1 1 Reason for Visit Reason Onset Date Comments Labs Only 11/04/2019 Encounter Details Date Type Department Care Team Description 11/04/2019 Telephone [facility] Hematology & St hawa Ji RN Labs Only Oncology - [facility] [address] [place] [address] Social History Tobacco Use Types [...] Telephone Encounter - Chikis Ji RN - 11/04/2019 3051 EDT Per request of Dr. Barillas, entered lab order for serum erythropoietin and routed lab order to 's local hospital . Spoke with [facility] lab and they report Praneeth needs to call ([phone]) ahead of time to schedule an appt. Called Praneeth and spoke with his Augustina. Augustina reports she will let Praneeth know about the lab. documented in this encounter Plan of Treatment Upcoming Encounters Date Type Specialty Care Team Description 12/27/2021 Office Visit Hematology and Erin Barillas M D Oncology 111 [facility] 2 [place] [address] (Joi diallo) 02/14/2022 Office Visit Hematology and Erin Barillas M D Oncology 111 [facility] 2 [place] [address] (Joi diallo) 04/25/2022 Ancillary Procedure Cardiology 04/25/2022 Office Visit Cardiology Claire Lopez NP 130 [facility] [address] [place] [phone] (Joi diallo) 05/13/2022 Office Visit Rheumatology Tod Perez NP 111 [facility], Level [address] [place] [phone] (Wo rk) documented as of this encounter Visit Diagnoses Diagnosis Polycythemia - Primary Polycythemia vera documented in this encounter Orders Lab Orders Without Results Count Last Ordered Date st Ordered Date ERYTHROPOIETIN 1 11/04/2019 documented in this encounter Care Teams Safety Sitter Relationship Specialty Start Date End Date Dereck Schultz MD PCP - General 04/07/19 04/04/20 [address] [place] [phone] documented as of this encounter
--- OUTSIDE RECORDS SUMMARY | 2021-12-21 01:23 | XMS_ITS | Encounter Summary ---
:1945 Author Organization [facility] Address [address] [place] [address] Care Team Providers Name Role Phone CesarLawanda song [facility] Primary Care Provider [phone] Reason for Visit Reason Onset Date Comments Medications Refill 09/06/2018 Encounter Details Date Type Department Care Team Description 09/06/2018 Refill [facility] [place] Sudhir Rosales MD Medications Refill Rheumatology & Immunology [address], [address] [place], [place] [address] [place] [address] [phone] (Wo rk) Social History Tobacco Use [...] condition, No 11/24/2017 does this person have difficulty doing errands [...] folic acid (FOLVITE) 1 mg Take 1 tablet by 90 tablet 3 08/1509/23/2019 tablet mouth daily. documented in this encounter Miscellaneous Notes Telephone Encounter - Zari Mccabe RN - 09/07/2018 0945 EDT From: Praneeth Villanueva Sent: 09/06/2018 10:02 EDT Subject: Medication Renewal Request Praneeth Villanueva would like a refill of the following medications: folic acid (FOLVITE) 1 mg tablet [Sudhir Rosales MD] [facility]erred [facility]: [facility] documented in this encounter Plan of Treatment Upcoming Encounters Date Type Specialty Care Team Description 12/27/2021 Office Visit Hematology and Erin Barillas M D Oncology [address] [place] [address] (Joi diallo) 02/14/2022 Office Visit Hematology and Erin Barillas M D Oncology [address] [address] (Joi diallo) 04/25/2022 Ancillary Procedure Cardiology 04/25/2022 Office Visit Cardiology Claire Lopez NP 130 [facility] [address] [phone] (Joi diallo) 05/13/2022 Office Visit Rheumatology Tod Perez NP 111 [facility] 5 [place] [address] (Wo rk) documented as of this encounter Visit Diagnoses Not on filedocumented in this encounter Discontinued Medications Medication Sig Discontinue Reason Start Date End Date folic acid (FOLVITE) 1 mg Take 1 Tab by mouth Reorder 02/25/20 18 09/06/2018 tablet daily. documented as of this encounter Care Teams Professor Of Sport Management Relationship Specialty Start Date End Date Lawanda Teran, CORRESPONDENCE COORDINATOR- PCP - General 11/24/17 04/06/19 [address] [place] [address] documented as of this encounter
--- OUTSIDE RECORDS SUMMARY | 2021-12-21 01:23 | XMS_ITS | Encounter Summary ---
:1945 Author Organization [facility] Address [address] [place] [address] Care Team Providers Name Role Phone Jeffry Lawanda K [facility] Primary Care Provider [phone] Encounter Details Date Type Department Care Team Description 07/17/2018 Orders Only [facility] Mccabe, History o f seronegative inflammatory arthritis (Primary Dx); Rheumatology & TRAM Hameed Encounter for long-term (current) use of medications Immunology - [facility] [address] [place], [place] [phone] Social History Tobacco Use Types Packs/Day Years [...] and Erin Barillas M D Oncology [address] [place] [phone] (Wo rk) 02/14/2022 Office Visit Hematology and Erin Barillas M D Oncology [address] [phone] (Wo rk) 04/25/2022 Ancillary Procedure Cardiology 04/25/2022 Office Visit Cardiology Claire Lopez , FESTUS 130 [facility] [address] [phone] (Wo rk) 05/13/2022 Office Visit Rheumatology Tod Perez NP 111 [facility], [facility] 5 [place] [address] (Wo rk) documented as of this encounter Visit Diagnoses Diagnosis History of seronegative inflammatory art hritis - Primary Encounter for long-term (current) use of medications Encounter for long-term (current) use of other medications documented in this encounter Care Teams Retail Loan Originator Assistant Relationship Specialty Start Date End Date Lawanda Teran, NETTIE- PCP - General 11/24/17 04/06/[address] [place] [address] documented as of this encounter
--- OUTSIDE RECORDS SUMMARY | 2021-12-21 01:23 | XMS_ITS | Encounter Summary ---
:1945 Author Organization [facility] Address [address] [place] [address] Care Team Providers Name Role Phone Dereck Schultz MD Primary Care Provider [phone] Reason for Visit Reason Onset Date Comments Labs Only 07/09/2019 Encounter Details Date Type Department Care Team Description 07/09/2019 Orders Only [facility] Sudhir Rosales MD Encounter for long-term (current) use of medications (Primary Dx); Rheumatology & [address] [place] [address] [facility] Immunology [address], [address] [place], [place] [phone] [place] [phone] (Wo rk) Social History Tobacco Use Types [...] documented as of this encounter Progress Notes Jazmyne Welch MA - 07/09/2019 0822 EST Standing orders [facility] [id number] signed by Jazmyne Welch MA at 07/09/2019 9:20 ESTdocumented in this encounter Plan of Treatment Upcoming Encounters Date Type Specialty Care Team Description 12/27/2021 Office Visit Hematology and Erin Barillas M D Oncology [address] [place] [phone] (Wo rk) 02/14/2022 Office Visit Hematology and Erin Barillas M D Oncology [address] [place] [phone] (Wo rk) 04/25/2022 Ancillary Procedure Cardiology 04/25/2022 Office Visit Cardiology Claire Lopez NP [address] [place] [phone] (Wo rk) 05/13/2022 Office Visit Rheumatology Tod Perez NP [address] [phone] (Wo rk) documented as of this encounter Visit Diagnoses Diagnosis Encounter for long-term (current) use of medications - Primary Encounter for long-term (current) use of other medications Inflammation around joint Enthesopathy of unspecified site documented in this encounter Care Teams Heat Treat Puller Relationship Specialty Start Date End Date Dereck Schultz MD PCP - General 04/07/19 04/04/[address] [place] [address] documented as of this encounter
--- OUTSIDE RECORDS SUMMARY | 2021-12-21 01:23 | XMS_ITS | Encounter Summary ---
:1945 Author Organization [facility] Address [address] [place] [address] Care Team Providers Name Role Phone Dereck Schultz MD Primary Care Provider [phone] Reason for Visit Reason Onset Date Comments Coordination Of Care 11/29/2019 Encounter Details Date Type Department Care Team Description 11/29/2019 Telephone [facility] Cancer Center Chikis Ji [facility] Emergency Department Hematology & Oncology - [facility] [address] [place], [place] [phone] Social History Tobacco Use Types Packs/Day Years [...] Telephone Encounter - Chikis Ji RN - 11/29/2019 1502 EDT Praneeth is scheduled to see Dr. Barillas for an in-person FUR on Fri12/06/19 at 1030 hrs. Received confirmation from [facility] that Praneeth is scheduled for a therapeutic phlebotomy on Fri12/06/19at [address] Barillas anticipates Praneeth will need weekly therapeutic phlebotomies for now until Hct <45, and he will need CBCD/CMP done prior to each phlebotomy. Called Praneeth and spoke with his Augustina. Augustina reports Praneeth is busy but she can take the call. I informed Augustina about Praneeth's appointments as listed above and that Praneeth will need a CBCD/CMP done priorto each phlebotomy. Augustina reports Praneeth will get his labs done at [facility] on Fri12/06/19 around 0900 hrs. Regarding labs for future phlebotomies, since Praneeth lives in [place], [place], he would prefer to complete lab work at [facility] the day prior to future phlebotomies. Submitted a [facility] booking request for weekly Therapeutic Phlebotomies on Tuesdays, 12/20, 12/27, 01/03, and 01/10. Once future TP appts are confirmed, will need to route CBCD/CMP lab orders to [facility] and call Praneeth with confirmed future TP appts. documented in this encounter Plan of Treatment Upcoming Encounters Date Type Specialty Care Team Description 12/27/2021 Office Visit Hematology and Erin Barillas M D Oncology [address] [phone] (Joi diallo) 02/14/2022 Office Visit Hematology and Erin Barillas M D Oncology [address] [phone] (Joi diallo) 04/25/2022 Ancillary Procedure Cardiology 04/25/2022 Office Visit Cardiology Claire Lopez NP 130 [facility] [address] [place] [address] (Wo rk) 05/13/2022 Office Visit Rheumatology Tod Perez NP 111 [facility], [address] [place] [address] (Wo rk) documented as of this encounter Visit Diagnoses Not on filedocumented in this encounter Care Teams Type Mapper Relationship Specialty Start Date End Date Dereck Schultz MD PCP - General 04/07/19 04/04/[address] [place] [phone] documented as of this encounter
--- OUTSIDE RECORDS SUMMARY | 2021-12-21 01:23 | XMS_ITS | Encounter Summary ---
:1945 Author Organization [facility] Address [address] [place] [address] Care Team Providers Name Role Phone Dereck Schultz MD Primary Care Provider [phone] Encounter Details Date Type Department Care Team Description 10/23/2016 Hospital Encounter [facility] Unknown, Provider, [facility] [address] [facility] [phone] [place] [address] (Work) [phone] Social History Tobacco Use Types Packs/Day Years [...] a physical, mental, or emotional condition, No 09/24/2016 does this person have difficulty doing errands alone such as visiting a doctor's office or shopping? Cognitive Status Response Date of Assessment Because of a physical, mental, or emotional condition, No 09/24/2016 does this person have serious difficulty concentrating, remembering, or making decisions? documented as of this encounter Medications at Time of Discharge Medication Sig Dispensed Refills Start Date End Date finasteride (PROSCAR) 5 mg Take 5 mg by mouth 0 tablet daily. aspirin chewable 81 mg Take 81 mg by mouth 0 12/07/2018 tablet daily. folic acid (FOLVITE) 1 mg Take 1 Tab by mouth 90 Tab 3 0 09/09/2016 09/03/2017 tablet daily. ibuprofen (MOTRIN) 200 mg Take 200 mg by 0 12/15/2020 tablet mouth every 6 hours as needed for Pain. LACTOBACILLUS ACIDOPHILUS Take by mouth daily 0 05/10/2019 (PROBIOTIC ORAL) methotrexate 2.5 mg tablet Take 8 Tabs by 96 Tab 0 08/1211/04/2016 mouth once a week. metoprolol (LOPRESSOR) 25 Take 25 mg by mouth 0 11/17/2019 mg tablet daily. omeprazole (PRILOSEC) 20 Take 40 mg by mouth 0 05/11/2019 mg capsule daily. RANITIDINE HCL ORAL Take 300 mg by 0 0 11/17/2019 mouth daily. simvastatin (ZOCOR) 40 mg Take 40 mg by mouth 0 11/09/2020 tablet every evening. documented as of this encounter Discharge Disposition Disposition Code Departure Means Destination Home or Self Longterm documented in this encounter Plan of Treatment Upcoming Encounters Date Type Specialty Care Team Description 12/27/2021 Office Visit Hematology and Erin Barillas M D Oncology [address] [phone] (Joi diallo) 02/14/2022 Office Visit Hematology and Erin Barillas M D Oncology [address] [phone] (Wo rk) 04/25/2022 Ancillary Procedure Cardiology 04/25/2022 Office Visit Cardiology Claire Lopez NP 130 [facility] [address] [phone] (Wo rk) 05/13/2022 Office Visit Rheumatology Tod Perez NP 111 [facility], [address] [place] [phone] (Wo rk) documented as of this encounter Visit Diagnoses Not on filedocumented in this encounter Care Teams Item Processor Relationship Specialty Start Date End Date Dereck Schultz MD PCP - General 10/19/08 02/12/17 [facility] [facility] [place] [address] documented as of this encounter
--- OUTSIDE RECORDS SUMMARY | 2021-12-21 01:23 | XMS_ITS | Encounter Summary ---
:[address] [facility] Address [address] [place] [address] Care Team Providers Name Role Phone Dereck Schultz MD Primary Care Provider [phone] Reason for Referral Laboratory Services (Routine) - New Request Specialty Diagnoses / Procedures Referred By Contact Refer red To Contact Diagnoses Polycythemia Erin Barillas MD Procedures ERYTHROPOIETIN 111 [facility] 2 [place] [address] Referral ID Status Reason Start Date Expiration Date Visits V isits Requested Authorized [id number] New Request 11/04/2019 1 1 Reason for Visit Reason Comments Telemedicine Video Visit Consult (Routine) - Receiving Office to Obtain Authorization Specialty Diagnoses / Procedures Referred By Contact Refer red To Contact Hematology and Diagnoses Polycythemia Ary Araujo FNP Ep2 Hem/Onc Oncology [address] [place] [phone] [place] [id number] Referral ID Status Reason Start Expiration Visits Visits Date Date Requested Authorized [id number] Receiving Office 1 1 to Obtain Authorization Encounter Details Date Type Department Care Team Description 11/04/2019 Telemedicine [facility] Cancer Center Erin Barillas MD Polycythemia (Primary Hematology & [address] [place]x) Oncology - [facility], [address], [address] [place] [address] [place], [place] [phone] (Wo rk) Social History Tobacco Use [...] encounter Progress Notes Erin Barillas MD - 11/04/2019 1100 EDT The concept of ???Telemedicine?? has been [...] Referred to Hematology for evaluation of polycythemia. Patient reports that he generally feels well. [...] below. Social history: Retired. Worked for the [employer]. Former smoker with 20 pack year smoking [...] resource strain: Not on file ??? Food insecurity: Worry: Not on file Inability: Not on file ??? Transportation needs: Medical: Not on file Non-medical: Not on file Tobacco Use ??? Smoking status: Former Smoker Packs/day: 3.00 Years: 20.00 Pack years: 60.00 Types: Cigarettes, Cigars Last attempt to quit: 09/15/1980 Years since quittin.1 ??? Smokeless tobacco: Never Used ? ? Tobacco comment: Quit >30 years ago Substance and Sexual Activity ??? Alcohol use: Yes Comment: Occasional beer ??? Drug use: No ??? Sexual activity: Not on file Lifestyle ??? Physical activity: Days per week: Not on file Minutes per session: Not on file ??? Stress: Not on file Relationships ??? Social connections: Talks on phone: Not on file Gets together: Not on file Attends worship service: Not on file Active member of club or organization: Not on file Attends meetings of clubs or organizations: Not on file Relationship status: Not on file ??? Intimate partner violence: Fear of current or ex partner: Not on file Emotionally abused: Not on file Physically abused: Not on file Forced sexual activity: Not on file Other Topics Concern ??? 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 Allergies Allergen Reactions ??? Lisinopril Causes chest pain. ? Myocardial bridging ROS - See HPI Objective: There were no vitals taken for this visit. ECOG Performance Status: 0 Physical Exam Unable to perform as this was a video visit. Overall, patient appears well. In no distress. Able to speak in full sentences without difficulty Review of records from patient's PCP's office demonstrates recent onset of polycythemia since May 2019 with Hgb ranging from 18-18.8, WBC count 8, Platelets ranging from 426-471. 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 Assessment: Mr. Villanueva is a pleasant 74 [...] the first two major and minor criteria. For Mr. Villanueva, although he does have a consistently elevated Hgb and [id number] mutation present, we need to either perform a bone marrow biopsy or serum erythropoietin level to confirm the diagnosis of PV. I explained to the patient and his the natural history of PV and risk of thrombosis, stroke, cardiovascular complications, bleeding and possible risk of transformation to secondary MDS and AML. Given that the patient is above the age of 60 years, if the diagnosis of PV is confirmed, he would be considered to have high-risk disease, even in the absence of a history of thrombotic events. Treatment for high risk PV typically consists of initiation of phlebotomy and likely cytoreductive therapy, and modification of lifestyle factors that would increase risk of cardiovascular complications. Plan: 1. Recommend checking Erythropoietin level. Will contact patient's PCP to determine if this can be done locally. If Epo level is inconclusive, will plan to perform a bone marrow biopsy. 2. If the diagnosis of PV is confirmed, would recommend initiation of phlebotomy and cytoreductive therapy with Hydrea. 3. Would also recommend initiation of low-dose Aspirin 81mg daily. Will plan to follow up with the patient in 2 weeks once serum Epo levels have resulted to discuss further plan for treatment. Would prefer to see patient in person prior to initiation of cytoreductive therapy and phlebotomy. I explained the above findings to the patient who is agreeable to this course of action. Thank you for this referral. Diagnoses and all orders for this visit: Polycythemia - ERYTHROPOIETIN I spent a total of 60 minutes in face to face time with this patient today and 60 minutes of that time was spent in counseling and coordination of care as described in the progress note. Erin Barillas MD documented in this encounter Plan of Treatment Upcoming Encounters Date Type Specialty Care Team Description 12/27/2021 Office Visit Hematology and Erin Barillas M D Oncology [address] [place] [phone] (Joi diallo) 02/14/2022 Office Visit Hematology and Erin Barillas M D Oncology [address] [place] [address] 2 [place] [phone] (Joi diallo) 04/25/2022 Ancillary Procedure Cardiology 04/25/2022 Office Visit Cardiology Claire Lopez NP 130 [facility] [address] [place] [address] (Wo rk) 05/13/2022 Office Visit Rheumatology Tod Perez NP 111 [facility], [facility] 5 [place] [address] (Wo imani) documented as of this encounter Results (ABNORMAL) ERYTHROPOIETIN (12/06/2019 9:26 EDT) Erythropoietin (EPO), 1.4 (L) 2.6 - 18.5 [facility] Comment: mIU/mL LABORATORIES Test Performed by: [facility] [address] [facility], [place] [address] Pipe Supervisor: Shiv Bhatia M.D. Ph.D.; CLIA# [id number] Specimen Blood - Venous blood (substance) Performing Organization Address City/State/ZIP Code Phon e Number [facility] [address] [place] [address] documented in this encounter Visit Diagnoses Diagnosis Polycythemia - Primary Polycythemia vera documented in this encounter Care Teams Bank Examiner Relationship Specialty Start Date End Date Dereck Schultz MD PCP - General 04/07/19 04/04/[address] [place] [address] documented as of this encounter
--- OUTSIDE RECORDS SUMMARY | 2021-12-21 01:23 | XMS_ITS | Encounter Summary ---
:1945 Author Organization [facility] Address [address] [place] [address] Care Team Providers Name Role Phone Dereck Schultz MD Primary Care Provider [phone] Reason for Referral Laboratory Services (Routine/Next Available) - New Request Specialty Diagnoses / Procedures Referred By Contact Refer red To Contact Diagnoses Inflammation around joint Encounter for long-term (current) use of medications Tod Perez, FESTUS Procedures COMPREHENSIVE METABOLIC PANEL (CMP) [address] [phone] Referral ID Status Reason Start Date Expiration Date Visits V isits Requested Authorized [id number] New Request 09/23/2019 1 1 Laboratory Services (Routine/Next Available) - New Request Specialty Diagnoses / Procedures Referred By Contact Refer red To Contact Diagnoses Encounter for long-term (current) use of medications Inflammation around joint Tod Perez NP Procedures COMPLETE BLOOD COUNT AND DIFFERENTIAL [address] [phone] Referral ID Status Reason Start Date Expiration Date Visits V isits Requested Authorized [id number] New Request 09/23/2019 1 1 Reason for Visit Reason Comments Telemedicine Phone Call Hand Problem given prednisone burst for h and problem/ twice really helped Back Pain radiateds down right side Medication Management stopped meds in Jun/ Dr Rosales Encounter Details Date Type Department Care Team Description 09/23/2019 Telemedicine [facility] Tod Perez, In flammation around joint (Primary Dx); 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 Start prednisone 5mg tabs 20mg (4 tabs) x 5 days orally, decrease by 5 mg (1 tab) orally weekly 1. Please call PCP regarding new patient hematology consult 2. Restart methotrexate 10mg orally weekly 3. Folic acid 1mg orally daily try labs for late October 2019 if covid 19 is quiet, if it is active please call the clinic to discuss 4. For right sided sciatica - see exercises below- do what works for your body, Ok to skip what you need to 5. Recommend shingrix when covid 19 is quiet has similar side effects to symptoms of covid 19 6. F/u around 11/2019 with Tod Perez NP Or Dr. Rosales Vaccine Information Statement: Shingrix Recombinant Zoster (Shingles) Vaccine, RZV: What you need to know Many Vaccine Information Statements are available in Albanian and other languages. See www.immunize.org/vis [place] de [...] it yourself through the VAERS website at www.vaers.[facility].gov, or by calling . VAERS does not give medical advice. 6. How can I learn more? Ask your health care provider. He or she can give you the vaccine package insert or suggest other sources of information. ??? Call your local or state health department. ??? Contact the Centers for Disease Control and Prevention (CDC): - Call (7-080-XLK-INFO) or - Visit CDC???s website at www.cdc.gov/vaccines Vaccine Information Statement Recombinant Zoster Vaccine 07/28/2017 Department of Health and Human Services Centers for Disease Control and Prevention Office Use Only documented in this encounter Ordered Prescriptions Prescription Sig Dispensed Refills Start Date End Date predniSONE (DELTASONE) 5 20mg (4 tabs) x 5 62 Tab 0 02/202011/18/2019 mg tablet days orally, decrease by 5 mg (1 tab) orally weekly folic acid (FOLVITE) 1 mg Take 1 Tab by mouth 90 Tab 3 0 09/23/2019 2020 tabletIndications: daily. Inflammation around joint, Encounter for long-term (current) use of medications methotrexate 2.5 mg Take 4 Tabs by mouth 48 Tab 1 201912/02/2019 tabletIndications: once a week. Inflammation around joint, Encounter for long-term (current) use of medications documented in this encounter Progress Notes Tod Perez, LANDSCAPE CREW LEADER - 09/23/2019 1400 EDT Images from the original note were not included. Patient ID: Deon Villanueva is a 74 y.o. y.o. male Subjective: Chief Complaint: Telemedicine Phone Call; Hand Problem (given prednisone burst for hand problem/ twice really helped); Back Pain (radiateds down right side); and Medication Management (stopped meds in Jun/ per Dr Rosales) HPI: ?? Pertinent Rheumatological History: 1. Seronegative inflammatory arthritis - On MTX 20 mg orally weekly with folic acid 1 mg orally daily - Will Reduce MTX to 17.5 mg orally weekly x 4 weeks then 15 mg orally weekly - Previously treated with hydroxychloroquine. ?? 2. Degenerative disc disease ?? 3. Rosacea - treated with Soolantra ?? Previously followed with ALMA Mcclendon ?? [...] to improvement of symptoms - Travelled to [place] including [facility]. Able to ambulate without difficulty. - AM stiffness lasting approximately 30 minutes involving the hands and neck - Ibuprofen 800 mg orally daily as needed. Has not needed this in recent months. ?? Changes since last visit Pt consents to telephone visit, Augustina also [...] swelling. Was in a 5th meng in [place] at that time. new dx around 04/2019 of polycythemia: elevated RBC and hemoglobin Had repeat labs at [facility] 05/2019 PCP was suppose to set up NPV with hematology at [facility] - they have not heard from PCP or Hematology prednisone burst from PCP for hand swelling. 20mg x 7 days and 10mg x 7 days which ended today Denies any other joint pains or swelling. [...] chest pain. ? Myocardial bridging Current Outpatient Medications: finasteride (PROSCAR) 5 mg tablet folic acid (FOLVITE) 1 mg tablet ibuprofen (MOTRIN) 200 mg tablet methotrexate 2.5 mg tablet metoprolol (LOPRESSOR) 25 mg tablet omeprazole (PRILOSEC) 40 mg capsule PREDNISONE ORAL RANITIDINE HCL ORAL simvastatin (ZOCOR) 40 mg tablet No current facility-administered medications for this visit. ROS - SEE HPI I reviewed the 10 point ROS performed by the nurse which is as documented in Prism. Objective: There were no vitals taken for this visit. LABS: Lab Results Component Value Date ?? WBC [...] 135 05/10/2014 ?? C4 27 05/10/2014 ?? [facility]: 11/18/18: CBC with differential: CBC = [...] Status: Final result ?Visible to patient: Yes (STP Group) Next appt: 05/25/2018 at 11:40 inRheumatology (Sudhir Rosales MD) Order: [id number] ? 1yr ago ?? Pathology Report: SURGICAL PATHOLOGY REPORT Reports generated via electronic interface contain original data; however they are lacking the format of the original report. Caution should be taken when reading/interpreting unformatted reports. Name: ? DEON VILLANUEVA ? Accession #: ? [id number] ? : ? 1945 (Age: 71) ??M [...] Status: Final result ?Visible to patient: Yes (STP Group) Next appt: 05/25/2018 at 11:40 inRheumatology (Sudhir Rosales MD) Order: [id number] ? 1yr ago ?? Pathology Report: SURGICAL PATHOLOGY REPORT Reports generated via electronic interface contain original data; however they are lacking the format of the original report. Caution should be taken when reading/interpreting unformatted reports. Name: ? DEON VILLANUEVA ? Accession #: ? [id number] ? : ? 1945 (Age: 71) ??M ?Collect Date: ? 10/23/2016 ? Location: ? [facility] ? Receive Date: ? 10/24/2016 ? Provider: SHREYA LEA MD Copy to: MINDY Jean-Paul STEPHON SORTING AND FOLDING SUPERVISOR ? Final Pathologic Diagnosis: A. ??GASTROESOPHAGEAL JUNCITON, [...] 7:55 AM ? RAPID3 Summary Functional Status: 1.3 Pain Tolerance: 2 Global Estimate: 3 Score: 6.3 Interpretation: Moderate ASSESSMENT: 1.Inflammator arthritis active, weaned MTX Jun [address] Rosales as was trying to reduce his medication. Started flaring Jul 2019 with hand swelling. Was in [place] at that time. Received prednisone burst from PCP 2 weeks ago- 20mg x 7 days, then 10mg x 7 days, he completed this today. Will restart MTX at last effective dose 10mg orally weekly and folic acid 1mg orally daily prednisone burst sent 20mg (4 tabs) x 5 days orally, decrease by 5 mg (1 tab) orally weekly 2. Labs at [facility] in October 2019 if Covid 19 quiet 3. Active right sided sciatica, not sure if improved with prednisone burst from PCP, hx of left sided sciatic 1 year ago, resolved with PT. Encouraged him to restart those exercises and will mail him some additional ones. Instructed to pick which exercises work for his body. 4. New dx of polycythemia - managed by PCP was suppose to see NPV with hematology at [facility]. I do not see a referral in [facility], his will follow up with PCP States 05/2019 labs at [facility]- will call for labs Encounter Diagnoses Name Primary? Inflammation around joint Yes ??? Encounter for long-term (current) use of medications PLAN: 1. Please call PCP regarding new patient hematology consult 2. Restart methotrexate 10mg orally weekly 3. Folic acid 1mg orally daily try labs for late October 2019 if covid 19 is quiet, if it is active please call the clinic to discuss 4. For right sided sciatica - see exercises below- do what works for your body, Ok to skip what you need to 5. Recommend shingrix when covid 19 is quiet has similar side effects to symptoms of covid 19 6. F/u around 11/2019 with Tod Perez NP Or Dr. Rosales 1. Inflammation around joint 2. Encounter for long-term (current) use of medications No orders of the defined types were placed in this encounter. Barriers to learning identified: No Patient verbalizes understanding and agrees with plan Yes I was directly supervised by: Dr. Morocho They were present in clinic and available for consult if needed. Tod Perez APRN 09/23/2019 14:09 This visit was conducted by telephone. I spent a total of 30 minutes in discussion with the patientas described in the progress note. Jazmyne Welch MA - 09/23/2019 1400 EDT REVIEW OF SYSTEMS: Yes No Yes No Fever X Joint pain hip Weight gain or loss pounds (lbs) Duration of AM joint stiffness / min Eye pain or dryness X Numbness/tingling x Mouth or nose sores X Heart burn / Nausea X Chest pain X Diarrhea X Shortness of Breath X Blood in stool X Cough X Burning on urination X Skin rash X Hand/Foot color change in cold X Are our immunization records accurate per patient report? (i.e. influenza, pneumococcal, shingles) Yes No If no, note change(s) below and update record documented in this encounter Plan of Treatment Upcoming Encounters Date Type Specialty Care Team Description 12/27/2021 Office Visit Hematology and Erin Barillas M D Oncology [address] [phone] (Wo rk) 02/14/2022 Office Visit Hematology and Erin Barillas M D Oncology [address] [phone] (Wo rk) 04/25/2022 Ancillary Procedure Cardiology 04/25/2022 Office Visit Cardiology Claire Lopez NP 130 [facility] [address] [phone] (Wo rk) 05/13/2022 Office Visit Rheumatology Tod Perez NP [address] [phone] (Wo rk) documented as of this encounter Visit Diagnoses Diagnosis Inflammation around joint - Primary Enthesopathy of unspecified site Encounter for long-term (current) use of medications Encounter for long-term (current) use of other medications documented in this encounter Discontinued Medications Medication Sig Discontinue Reason Start Date End Date metoprolol XL (TOPROL-XL) Duplicate order 05/02/2019 09/23/2019 25 mg tablet PREDNISONE ORAL Take 10 mg by mouth Alternate therapy 09/23/2019 daily. methotrexate 2.5 mg Take 4 Tabs by Reorder 12/07/20182019 tablet mouth once a week. folic acid (FOLVITE) 1 mg Take 1 tablet by Reorder 09/07/2018 09/23/2019 tablet mouth daily. documented as of this encounter Historical Medications This list may reflect changes made after this encounter. Medication Sig Dispensed Refills Start Date End Date PREDNISONE ORAL Take 10 mg by mouth daily. 0 09/23/2019 added in this encounter Orders Lab Orders Without Results Count Last Ordered Date st Ordered Date COMPLETE BLOOD COUNT AND DIFFERENTIAL 1 09/23/2019 COMPREHENSIVE METABOLIC PANEL (CMP) 1 09/23/2019 documented in this encounter Care Teams Senior Cost Analyst Relationship Specialty Start Date End Date Dereck Schultz MD PCP - General 04/07/19 04/04/[address] [place] [phone] documented as of this encounter
--- OUTSIDE RECORDS SUMMARY | 2021-12-21 01:23 | XMS_ITS | Encounter Summary ---
:1945 Author Organization [facility] Address [address] [place] [address] Care Team Providers Name Role Phone Dereck Schultz MD Primary Care Provider [phone] Reason for Visit Reason Comments Telemedicine Video Visit Follow-up Encounter Details Date Type Department Care Team Description 11/26/2019 Telemedicine [facility] Erin Barillas MD Polycythemia vera Hematology & [address] [place] [address] [address]) ([facility], [address], [address] [place], [place] [address] [place] [address] [phone] (Wo rk) Social History Tobacco Use [...] capsule 2 times daily for 30 days. documented in this encounter Progress Notes Erin Barillas MD - 11/26/2019 0930 EDT The concept of ???Telemedicine?? has [...] Hematology for evaluation of polycythemia. Interval Visit: Mr. Villanueva states that he has experienced increasing tingling in his hands. States that he noticestrouble moving his left wrist and is not able to make a fist with that hand. Denies any shoulder pains. Denies any overall weakness in his arms or legs. Denies similar tingling, numbness or pain in hisfeet. Reports that he has chronic back pain which has not worsened. Reports occasional dizziness when bending but denies any headaches or vision changes. Denies any falls at home. No difficulty breathing or cough. No chest pain or palpitations. No nausea/vomiting/abdominal pain/changes in bowel habits. No other complaints offered at this time. 12 point ROS performed with pertinent positives [...] States that he spent the winter in [place] and noted that his fingers would turn red and get cold very easily. Denies any epistaxis, gum bleeding or easy bruising. Patient denies any history of blood clots. 12 point ROS performed with pertinent positives and negatives as documented in HPI and ROS summary below. Social history: Retired. Worked for the [employer]. Former smoker with 20 pack year smoking [...] on phone: None Gets together: None Attends caodaism service: None Active member of club or organization: None Attends meetings of clubs or organizations: None Relationship status: None ??? Intimate partner violence: Fear of current or ex partner: None Emotionally abused: None Physically abused: None Forced sexual activity: None Other Topics Concern ??? 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 Plan: 1.We discussed proceeding with phlebotomy, to maintain Hct <45. Will also initiate [...] ensure that Hct <45 but WBC >3000. 3. Would also recommend initiation of low-dose Aspirin 81mg daily. Will plan to see patient in person for a physical examination prior to the phlebotomy initiation. Will cohort both visits to limit patient's exposure to the hospital given the ongoing COVID19 pandemic I explained the above findings to the patient who is agreeable to this course of action. Thank you for this referral. Diagnoses and all orders for this visit: Polycythemia vera ([facility]) Other orders - hydroxyurea (HYDREA) 500 mg capsule I spent a total of 30 minutes in face to face time with this patient today and 60 minutes of that time was spent in counseling and coordination of care as described in the progress note. Erin Barillas MD documented in this encounter Plan of Treatment Upcoming Encounters Date Type Specialty Care Team Description 12/27/2021 Office Visit Hematology and Erin Barillas M D Oncology [address] [phone] (Joi rk) 02/14/2022 Office Visit Hematology and Erin Barillas M D Oncology [address] [place] [phone] (Wo rk) 04/25/2022 Ancillary Procedure Cardiology 04/25/2022 Office Visit Cardiology Claire Lopez NP 130 [facility] [address] [place] [address] (Wo rk) 05/13/2022 Office Visit Rheumatology Tod Perez NP 111 [facility], [facility] 5 [place] [address] (Wo rk) documented as of this encounter Visit Diagnoses Diagnosis Polycythemia vera (HCC) - Primary documented in this encounter Care Teams Dish Room Worker Relationship Specialty Start Date End Date Dereck Schultz MD PCP - General 04/07/19 04/04/[address] [place] [phone] documented as of this encounter
--- OUTSIDE RECORDS SUMMARY | 2021-12-21 01:23 | XMS_ITS | Encounter Summary ---
:1945 Author Organization [facility] Address [address] [place] [address] Care Team Providers Name Role Phone Dereck Schultz MD Primary Care Provider [phone] Reason for Visit Reason Onset Date Comments Medications Refill 12/08/2015 Encounter Details Date Type Department Care Team Description 12/08/2015 Refill [facility] Marie Stanford, [facility] Refill Rheumatology & Immunology [address] [place] [address] [place] [address] [phone] (Wo rk) Social History Tobacco Use Types [...] tablet Take 8 Tabs by 96 Tab 1 12/0708/11/2016 mouth once a week. documented in this encounter Miscellaneous Notes Telephone Encounter - Zari Mccabe RN - 12/08/2015 1247 EDT From: Praneeth Villanueva To: Marie Stanford PA Sent: 12/08/2015 11:36 EDT Subject: Medication Renewal Request Original authorizing provider: ALMA Bills would like a refill of the following medications: methotrexate 2.5 mg tablet [ALMA Bills] Preferred pharmacy: [address] Comment: documented in this encounter Plan of Treatment Upcoming Encounters Date Type Specialty Care Team Description 12/27/2021 Office Visit Hematology and Erin Barillas M D Oncology [address] [place] [phone] (Wo rk) 02/14/2022 Office Visit Hematology and Erin Barillas M D Oncology [address] [place] [phone] (Wo rk) 04/25/2022 Ancillary Procedure Cardiology 04/25/2022 Office Visit Cardiology Claire Lopez NP [address] [phone] (Wo rk) 05/13/2022 Office Visit Rheumatology Tod Perez NP 111 [facility] 5 [place] [address] (Wo rk) documented as of this encounter Visit Diagnoses Not on filedocumented in this encounter Discontinued Medications Medication Sig Discontinue Reason Start Date End Date methotrexate 2.5 mg tablet Take 8 Tabs by Reorder 2015 12/08/2015 mouth once a week. documented as of this encounter Care Teams Gunner'S Mate Relationship Specialty Start Date End Date Dereck Schultz MD PCP - General 10/19/08 02/12/[address] [place] [phone] documented as of this encounter
--- OUTSIDE RECORDS SUMMARY | 2021-12-21 01:23 | XMS_ITS | Encounter Summary ---
:1945 Author Organization [facility] Address [address] [place] [address] Care Team Providers Name Role Phone Rebecca Pickens SHADOWGRAPH OPERATOR Primary Care Provider Reason for Visit Reason Onset Date Comments Medications Refill 11/09/2017 Encounter Details Date Type Department Care Team Description 11/09/2017 Refill [facility] Sudhir Rosales MD Medications Refill Rheumatology & Immunology [address], [address] [place], [place] [address] [place] [address] [phone] (Wo rk) Social History Tobacco Use [...] a physical, mental, or emotional condition, No 05/28/2017 does this person have difficulty doing errands alone such as visiting a doctor's office or shopping? Cognitive Status Response Date of Assessment Because of a physical, mental, or emotional condition, No 05/28/2017 does this person have serious difficulty concentrating, remembering, or making decisions? documented as of this encounter Ordered Prescriptions Prescription Sig Dispensed Refills Start Date End Date methotrexate 2.5 mg tablet Take 6 Tabs by 72 Tab 1 11/1304/26/2018 mouth once a week. documented in this encounter Miscellaneous Notes Telephone Encounter - Diandra Chavez RN - 11/13/2017 0844 EDT Received call from pt's spouse verifying that pt is taking 6 tabs of methotrexate weekly. Labs current, methotrexate refilled. elephone Encounter - Savannah Nunez RN - 11/12/2017 0842 EDT From: Praneeth Villanueva To: Sudhir Rosales MD Sent: 11/09/2017 9:46 EDT Subject: Medication Renewal Request Original authorizing provider: MD Praneeth Evans would like a refill of the following medications: methotrexate 2.5 mg tablet [Sudhir Rosales MD] Preferred pharmacy: [address] Comment: documented in this encounter Plan of Treatment Upcoming Encounters Date Type Specialty Care Team Description 12/27/2021 Office Visit Hematology and Erin Barillas M D Oncology [address] [phone] (Joi diallo) 02/14/2022 Office Visit Hematology and Erin Barillas M D Oncology [address] [phone] (Joi diallo) 04/25/2022 Ancillary Procedure Cardiology 04/25/2022 Office Visit Cardiology Claire Lopez , FESTUS [facility] [address] [place] [phone] (Wo rk) 05/13/2022 Office Visit Rheumatology Tod Perez NP 111 [facility], [facility] 5 [place] [phone] (Wo rk) documented as of this encounter Visit Diagnoses Not on filedocumented in this encounter Discontinued Medications Medication Sig Discontinue Reason Start Date End Date methotrexate 2.5 mg tablet Take 8 Tabs by Reorder 04/23/2017 11/09/2017 mouth once a week. documented as of this encounter Care Teams Logistics And Planning Manager Relationship Specialty Start Date End Date Rebecca Pickens FNP PCP - General 02/13/17 11/23/[address] [place] [address] documented as of this encounter
--- OUTSIDE RECORDS SUMMARY | 2021-12-21 01:23 | XMS_ITS | Encounter Summary ---
:1945 Author Organization [facility] Address [address] [place] [address] Care Team Providers Name Role Phone Dereck Schulzt MD Primary Care Provider [phone] Reason for Visit Reason Comments Pacemaker/Device Check Follow-up Encounter Details Date Type Department Care Team Description 11/18/2019 Office Visit [facility] Jessica, Hyperchol esteremia (Primary Dx); - [facility] FESTUS Rangel Pacemaker; Clinic [address] [facility] Sick sinus syndrome ([facility]); [address] [place] [address] [place] [phone] Social History Tobacco Use Types Packs/Day [...] Sign Reading Time Taken Comments Blood Pressure 154/88 11/18/2019 1530 EDT Pulse 61 11/18/2019 1530 EDT Temperature - - Respiratory Rate 16 11/18/2019 1530 EDT Oxygen Saturation 95% 11/18/2019 1530 EDT Inhaled Oxygen Concentration - - Weight 99.3 kg (219 lb) 11/18/2019 1530 EDT Height - - Body Mass Index 30.54 05/11/2019 1458 EST documented in this encounter [...] documented as of this encounter Progress Notes Ryann Venegas - 11/18/2019 1545 EDT Note faxed to PCP Claire Lopez APRN - 11/18/2019 1545 EDT Cardiology Clinic Note 11/18/19 15:36 Presenting complaint: Pacemaker/Device Check and Follow-up HPI Praneeth is a pleasant 74 yo with multiple medical co-morbidities including inflammatory polyarthropathytreated with methotrexate, hx benign neoplasm of the colon, GERD, BPH, stage III CKD, HLD, NATALIE, HTN,sinus node dysfunction s/p single chamber pacemaker who returns to the office for routine device interrogation. Since our last visit Praneeth states he has been diagnosed with polycythemia vera. Is supposed to be undergoing a bone marrow biopsy to confirm diagnosis. Otherwise he has been in great health and spirits. Has remained physically active outdoors and tolerates physical activity well. Has no cardiac complaints or concerns to offer. Systems review A 10 point review of [...] SURGERY ??? HERNIA REPAIR Medications Current Outpatient Medications: aspirin 81 mg EC tablet finasteride (PROSCAR) 5 mg tablet folic acid (FOLVITE) 1 mg tablet ibuprofen (MOTRIN) 200 mg tablet methotrexate 2.5 mg tablet metoprolol XL (TOPROL-XL) 25 mg tablet omeprazole (PRILOSEC) 40 mg capsule predniSONE (DELTASONE) 5 mg tablet ranitidine (ZANTAC) 300 mg tablet simvastatin (ZOCOR) 40 mg tablet No current facility-administered medications for this visit. Medication allergies Allergies Allergen Reactions ??? 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 General - A/Ox3, no acute distress [...] intact Peripheral neurology - no focal deficits [facility] Device Visit Weave Room Supervisor: [employer] Device Type: Single chamber pacemaker Service: Office Visit Implant Date: 04/09/2012 Indication: Bradycardia Battery Longevity: 13 months (< 1-25 months) Underlying rhythm: bradycardia, SND Mode: AAIR URL/LRL: 130/60 bpm Atrial Paced: 83.6% Lead Impedance, threshold, and sensing testing all within normal parameters. (See scanned documentation associated with this visit for full details) There were: no alerts AMS: none AF burden: none AT/AF: Patient is taking daily N/A Impression: The leads and device are functioning normally. The patient will follow up In office in 6months. LABS Lab Results Component Value Date WBC 7.21 03/29/2015 HGB 14.6 03/29/2015 HCT 44.5 03/29/2015 MCV 91 03/29/2015 PLT 219 03/29/2015 Lab Results Component Value Date CREATININE 0.90 03/29/2015 Lab Results Component Value Date NA 139 03/29/2015 K 4.3 03/29/2015 CL 104 03/29/2015 CO2 25 03/29/2015 Lab Results Component Value Date TSH 0.38 09/15/2013 Lab Results Component Value Date HGBA1C 6.0 04/08/2012 Lab Results Component Value Date CHOL 111 04/08/2012 HDL 22 04/08/2012 LDLBASE 66 04/08/2012 TRIG 117 04/08/2012 CHOLHDL 5.0 04/08/2012 1. Pacemaker Device functioning normally. Generator approaching ADEBAYO. Judging from battery longevity at last visit6 months ago we should be ok to follow up in another 6 months. - CARDIAC IMPLANT CHECK - IN CLINIC 2. Sick sinus syndrome (HCC-CMS) S/p single chamber pacemaker. 3. Essential hypertension Slightly hypertensive today in the office. Previously held off on adding anti- hypertensives due to complaints of dizziness. This seems to have gotten better. He has follow up with his PCP soon. If he remains hypertensive would recommend adding an ACEI or ARB. Reinforced lifestyle modification through diet, limiting sodium intake, regular activity and maintaining a healthy weight. 4. Hypercholesteremia Continue statin Claire Lopez NP [facility] documented in this encounter Plan of Treatment Upcoming Encounters Date Type Specialty Care Team Description 12/27/2021 Office Visit Hematology and Erin Barillas M D Oncology [address] [phone] (Joi diallo) 02/14/2022 Office Visit Hematology and Erin Barillas M D Oncology [address] [phone] (Joi diallo) 04/25/2022 Ancillary Procedure Cardiology 04/25/2022 Office Visit Cardiology Claire Lopez NP 130 [facility] 21 [place] [address] (Joi diallo) 05/13/2022 Office Visit Rheumatology Tod Perez NP [address] [phone] (Joi diallo) documented as of this encounter Visit Diagnoses Diagnosis Hypercholesteremia - Primary Pure hypercholesterolemia Pacemaker Cardiac pacemaker in situ Sick sinus syndrome (HCC-CMS) (HCC) Sinoatrial node dysfunction Essential hypertension Unspecified essential hypertension documented in this encounter Discontinued Medications Medication Sig Discontinue Reason Start Date End Date RANITIDINE HCL ORAL Take 300 mg by mouth 11/17/2019 daily. metoprolol (LOPRESSOR) Take 25 mg by mouth 11/17/2019 25 mg tablet daily. predniSONE (DELTASONE) Therapy completed 09/10/2019 11/18/2019 10 mg tablet predniSONE (DELTASONE) 20mg (4 tabs) x 5 Therapy completed 09/23/1911/18/2019 5 mg tablet days orally, decrease by 5 mg (1 tab) orally weekly documented as of this encounter Historical Medications This list may reflect changes made after this encounter. Medication Sig Dispensed Refills Start Date End Date aspirin 81 mg EC tablet Take 81 mg by mouth 0 daily. metoprolol XL (TOPROL-XL) TK 1 T PO D 0 0 25 mg tablet ranitidine (ZANTAC) 300 TK 1 T PO D 0 08/23/2019 12/02/2019 mg tablet predniSONE (DELTASONE) 10 0 09/10/2019 11/18/2019 mg tablet added in this encounter Care Teams Color Blender Relationship Specialty Start Date End Date Dereck Schultz MD PCP - General 04/07/19 04/04/[address] [place] [address] documented as of this encounter
--- OUTSIDE RECORDS SUMMARY | 2021-12-21 01:23 | XMS_ITS | Encounter Summary ---
:1945 Author Organization [facility] Address [address] [place] [address] Care Team Providers Name Role Phone Dereck Schultz MD Primary Care Provider [phone] Reason for Visit Reason Onset Date Comments Appointment Related 11/02/2019 Encounter Details Date Type Department Care Team Description 11/02/2019 Telephone [facility] Erin Barillas MD Appointment Related Hematology & Oncology 111 [facility], [facility] 111 [facility], Level 2 [place] [address] [place], [place] [phone] (Wo rk) Social History Tobacco Use [...] this encounter Miscellaneous Notes Telephone Encounter - Pepe Meier MA - 11/02/2019 1602 EDT Attempted to call and speak to discuss pre-charting for 11/04/19 televideo appt with Erin Barillas MD. No answer. Will call again later. - 11/02/19 documented in this encounter Plan of Treatment Upcoming Encounters Date Type Specialty Care Team Description 12/27/2021 Office Visit Hematology and Erin Barillas M D Oncology 111 [facility] 2 [place] [address] (Joi diallo) 02/14/2022 Office Visit Hematology and Erin Barillas M D Oncology [address] [phone] (Joi rk) 04/25/2022 Ancillary Procedure Cardiology 04/25/2022 Office Visit Cardiology Claire Lopez NP 130 [facility] [address] [place] [address] (Wo rk) 05/13/2022 Office Visit Rheumatology Tod Perez NP 111 [facility], [facility] 5 [place] [address] (Wo rk) documented as of this encounter Visit Diagnoses Not on filedocumented in this encounter Care Teams Consumer Educator Relationship Specialty Start Date End Date Dereck Schultz MD PCP - General 04/07/19 04/04/[address] [place] [phone] documented as of this encounter
--- OUTSIDE RECORDS SUMMARY | 2021-12-21 01:23 | XMS_ITS | Encounter Summary ---
:1945 Author Organization [facility] Address [address] [place] [address] Care Team Providers Name Role Phone Dereck Schultz MD Primary Care Provider [phone] Layne Cai MD Primary Care Provider Reason for Visit Reason Onset Date Comments Appointment Related 11/02/2019 called for pre-visit , no answer Encounter Details Date Type Department Care Team Description 11/02/2019 Telephone [facility] Erin Barillas MD Appointment Related Hematology & Oncology 111 [facility] (called for pre-visit, - Main Barto Main Barto, Main no answer) [address] [facility] Level 2 [place] [address] [place] [phone] (Wo rk) Social History Tobacco Use [...] this encounter Miscellaneous Notes Telephone Encounter - Sintia Piña MA - 09/28/2020 1025 EDT Apt related documented in this encounter Plan of Treatment Upcoming Encounters Date Type Specialty Care Team Description 12/27/2021 Office Visit Hematology and Erin Barillas M D Oncology [address] [phone] (Joi diallo) 02/14/2022 Office Visit Hematology and Erin Barillas M D Oncology [address] [phone] (Joi diallo) 04/25/2022 Ancillary Procedure Cardiology 04/25/2022 Office Visit Cardiology Claire Lopez NP 130 [facility] [address] [place] [address] (Joi diallo) 05/13/2022 Office Visit Rheumatology Tod Perez NP 111 [facility], [facility] 5 [place] [address] (Joi diallo) documented as of this encounter Visit Diagnoses Not on filedocumented in this encounter Care Teams Oreman Relationship Specialty Start Date End Date Dereck Schultz MD PCP - General 04/07/19 04/04/20 [address] [place] [address] Layne Cai MD PCP - General 04/05/20 [address] [place] [phone] documented as of this encounter
--- OUTSIDE RECORDS SUMMARY | 2021-12-21 01:23 | XMS_ITS | Encounter Summary ---
:1945 Author Organization [facility] Address [address] [place] [address] Care Team Providers Name Role Phone CesarLawanda song [facility] Primary Care Provider [phone] Reason for Visit Reason Onset Date Comments Medications Refill 04/26/2018 Encounter Details Date Type Department Care Team Description 04/26/2018 Refill [facility] Sudhir Rosales MD Medications Refill Rheumatology & Immunology [address], [address] [place], [place] [address] [place] [address] [phone] (Wo rk) Social History Tobacco Use [...] Take 6 Tabs by 72 Tab 1 04/2807/07/2018 mouth once a week. documented in this encounter Miscellaneous Notes Telephone Encounter - Claudia Salgado RN - 04/28/2018 1606 EST [employer] message sent to pt to get labs completed when able. elephone Encounter - Sudhir Rosales MD - 04/28/2018 1539 EST 1. He should monitor blood work every 3-4 months 2. Ok to refill methotrexate Thank you Sudhir Rosales MD Telephone Encounter - Claudia Salgado RN - 04/28/2018 1520 EST Is pt to do labs every 3-4 months or on different schedule? Last done 11/2017. documented in this encounter Plan of Treatment Upcoming Encounters Date Type Specialty Care Team Description 12/27/2021 Office Visit Hematology and Erin Barillas M D Oncology [address] [phone] (Joi diallo) 02/14/2022 Office Visit Hematology and Erin Barillas M D Oncology 111 [facility] 2 [place] [address] (Joi diallo) 04/25/2022 Ancillary Procedure Cardiology 04/25/2022 Office Visit Cardiology Claire Lopez NP 130 [facility] [address] [place] [address] (Wo rk) 05/13/2022 Office Visit Rheumatology Tod Perez NP 111 [facility], [facility] 5 [place] [phone] (Wo rk) documented as of this encounter Visit Diagnoses Not on filedocumented in this encounter Discontinued Medications Medication Sig Discontinue Reason Start Date End Date methotrexate 2.5 mg tablet Take 6 Tabs by Reorder 11/13/2017 04/26/2018 mouth once a week. documented as of this encounter Care Teams Lumber Scaler Relationship Specialty Start Date End Date Lawanda Teran, PROFESSOR OF PSYCHOLOGY-BC PCP - General 11/24/17 04/06/19 [address] [place] [address] documented as of this encounter
--- OUTSIDE RECORDS SUMMARY | 2021-12-21 01:23 | XMS_ITS | Encounter Summary ---
:1945 Author Organization [facility] Address [address] [place] [address] Care Team Providers Name Role Phone Rebecca Pickens SENIOR FRONT END DEVELOPER Primary Care Provider Reason for Visit Reason Comments New Patient Visit facial rash x10 years Consult (Routine) - Closed Specialty Diagnoses / Procedures Referred By Contact Refer red To Contact Dermatology Diagnoses History of seronegative inflammatory arthritis Facial rash Taking multiple medications for chronic disease Sudhir Rosales MD [facility] Dermatology [address] [place] [address] [place], [place] Fax: [phone] Referral ID Status Reason Start Date Expiration Date Visits V isits Requested Authorized [id number] Closed Specialty 09/24/2016 1 1 Services Required Encounter Details Date Type Department Care Team Description 02/14/2017 Office Visit [facility] Tye Farley Ros acea (Primary Dx); Dermatology - Rudy [facility] Seborrheic keratoses [place] [phone] [facility] 5 [place] [address] (Wo rk) Social History Tobacco [...] as of this encounter Discharge Diagnoses Diagnosis L71.9 Rosacea, unspecified-L71.9[ICD-10- CM] documented in this encounter Ordered Prescriptions Prescription Sig Dispensed Refills Start Date End Date ivermectin 1 % cream Apply topically to 1 Tube 11 017 05/10/2019 affected area daily. documented in this encounter Discharge Disposition Disposition Code Departure Means Destination Auto Discharge documented in this encounter Progress Notes Tye Farley MD - 02/14/2017 0930 EDT Dermatology Outpatient Clinic Note 02/14/2017 Chief Complaint: History of Present Illness: Patient is a 71 y.o. male who presents for new evaluation and treatment a rash Forehead and cheeks Present x 10 years - not worsening Little white head pimples Occasionally itches, but not very often Picks at it, develops a scab, bleeds when he picks scab off Denies pain. Previously used a metro product, - metrocream or gel. No hx skin ca No fh melanoma. has a current medication list which includes the following prescription(s): aspirin chewable, finasteride, folic acid, ibuprofen, lactobacillus acidophilus, methotrexate, metoprolol, omeprazole, ranitidine hcl, and simvastatin. See documentation in [facility] for medical, surgical, social and family history, which were reviewed at this visit. Present medications, allergies, review of systems are also documented and were all reviewed at this visit. EXAM: a/o x 3. NAD. Scalp face neck trunk and 4 exts seen. Red papules and pustules central face Scattered stuck on brown papules c/w [place] IMPRESSION & PLAN: 1. Rosacea rx topical ivermectin cream 2. [place] - reassure Call w/ status in 1 month rtc prn Tye Farley MD 02/14/2017 9:37 inita Lion - 02/14/2017 0930 EDT Review of Systems Constitutional: Negative for fatigue, fever and unexpected weight change. HENT: Negative for mouth sores. Eyes: Negative for pain. Respiratory: Negative for cough and shortness of breath. Cardiovascular: Negative for chest pain and palpitations. Gastrointestinal: Negative for abdominal pain, blood in stool, constipation, diarrhea, nausea and vomiting. Genitourinary: Negative for dysuria, frequency and hematuria. Musculoskeletal: Negative for myalgias, joint swelling, arthralgias and muscle stiffness in the morning. Skin: Negative for rash. Neurological: Negative for numbness and headaches. Endo/Heme/Allergies: Does not bruise/bleed easily. Psychiatric/Behavioral: Negative for sleep disturbance. The patient is not nervous/anxious. Vinita Lion 02/14/2017 9:10 documented in this encounter Plan of Treatment Upcoming Encounters Date Type Specialty Care Team Description 12/27/2021 Office Visit Hematology and Erin Barillas M D Oncology [address] [phone] (Joi diallo) 02/14/2022 Office Visit Hematology and Erin Barillas M D Oncology [address] [phone] (Joi diallo) 04/25/2022 Ancillary Procedure Cardiology 04/25/2022 Office Visit Cardiology Claire Lopez , FESTUS 130 [facility] [address] [place] [phone] (Wo rk) 05/13/2022 Office Visit Rheumatology Tod Perez NP 111 [facility], [facility] 5 [place] [address] (Wo rk) documented as of this encounter Visit Diagnoses Diagnosis Rosacea - Primary Seborrheic keratoses documented in this encounter Care Teams Fusing Furnace Loader Relationship Specialty Start Date End Date Rebecca Pickens FNP PCP - General 02/13/17 11/23/[address] [place] [phone] documented as of this encounter
--- OUTSIDE RECORDS SUMMARY | 2021-12-21 01:23 | XMS_ITS | Encounter Summary ---
:1945 Author Organization [facility] Address [address] [place] [address] Care Team Providers Name Role Phone Dereck Schultz MD Primary Care Provider [phone] Reason for Visit Reason Onset Date Comments Medications Refill 11/04/2016 Encounter Details Date Type Department Care Team Description 11/04/2016 Refill [facility] Sudhir Rosales MD Medications Refill Rheumatology & Immunology [address], [address] [place], [place] [address] [place] [address] [phone] (Wo rk) Social History Tobacco Use [...] Take 8 Tabs by 96 Tab 1 11/0504/22/2017 mouth once a week. documented in this encounter Miscellaneous Notes Telephone Encounter - Claudia Salgado RN - 11/05/2016 1516 EDT From: Praneeth Villanueva To: Sudhir Rosales MD Sent: 11/04/2016 9:11 EDT Subject: Medication Renewal Request Original authorizing provider: MD Praneeth Evans would like a refill of the following medications: methotrexate 2.5 mg tablet [Sudhir Rosales MD] Preferred pharmacy: [address] Comment: documented in this encounter Plan of Treatment Upcoming Encounters Date Type Specialty Care Team Description 12/27/2021 Office Visit Hematology and Erin Barillas M D Oncology [address] [place] [phone] (Wo rk) 02/14/2022 Office Visit Hematology and Erin Barillas M D Oncology [address] [place] [phone] (Wo rk) 04/25/2022 Ancillary Procedure Cardiology 04/25/2022 Office Visit Cardiology Claire Lopez NP [address] [phone] (Wo rk) 05/13/2022 Office Visit Rheumatology Tod Perez NP 111 [facility] 5 [place] [address] (Wo rk) documented as of this encounter Visit Diagnoses Not on filedocumented in this encounter Discontinued Medications Medication Sig Discontinue Reason Start Date End Date methotrexate 2.5 mg tablet Take 8 Tabs by Reorder 08/12/2016 11/04/2016 mouth once a week. documented as of this encounter Care Teams Warehouse Order Picker Relationship Specialty Start Date End Date Dereck Schultz MD PCP - General 10/19/08 02/12/[address] [place] [phone] documented as of this encounter
--- OUTSIDE RECORDS SUMMARY | 2021-12-21 01:23 | XMS_ITS | Encounter Summary ---
:1945 Author Organization [facility] Address [address] [place] [address] Care Team Providers Name Role Phone Rebecca Pickens AMALGAMATOR Primary Care Provider Reason for Visit Reason Onset Date Comments Medications Refill 09/03/2017 Encounter Details Date Type Department Care Team Description 09/03/2017 Refill [facility] Sudhir Rosales MD Medications Refill Rheumatology & Immunology [address], [address] [place], [place] [address] [place] [address] [phone] (Wo rk) Social History Tobacco Use [...] Take 1 Tab by mouth 90 Tab 1 0 09/04/2017 02/24/2018 tablet daily. documented in this encounter Miscellaneous Notes Telephone Encounter - Claudia Salgado RN - 09/04/2017 1010 EDT From: Praneeth Villanueva To: Sudhir Rosales MD Sent: 09/03/2017 18:48 EDT Subject: Medication Renewal Request Original authorizing provider: MD Praneeth Evans would like a refill of the following medications: folic acid (FOLVITE) 1 mg tablet [Sudhir Rosales MD] Preferred pharmacy: [address] Comment: documented in this encounter Plan of Treatment Upcoming Encounters Date Type Specialty Care Team Description 12/27/2021 Office Visit Hematology and Erin Barillas M D Oncology [address] [place] [phone] (Wo rk) 02/14/2022 Office Visit Hematology and Erin Barillas M D Oncology [address] [place] [phone] (Wo rk) 04/25/2022 Ancillary Procedure Cardiology 04/25/2022 Office Visit Cardiology Claire Lopez NP 130 [facility] [address] [phone] (Wo rk) 05/13/2022 Office Visit Rheumatology Tod Perez NP 111 [facility] 5 [place] [address] (Wo rk) documented as of this encounter Visit Diagnoses Not on filedocumented in this encounter Discontinued Medications Medication Sig Discontinue Reason Start Date End Date folic acid (FOLVITE) 1 mg Take 1 Tab by mouth Reorder 09/10/19 17 09/03/2017 tablet daily. documented as of this encounter Care Teams Food Service Coordinator Relationship Specialty Start Date End Date Rebecca Pickens FNP PCP - General 02/13/17 11/23/[address] [place] [phone] documented as of this encounter
--- OUTSIDE RECORDS SUMMARY | 2021-12-21 01:23 | XMS_ITS | Encounter Summary ---
:1945 Author Organization [facility] Address [address] [place] [address] Care Team Providers Name Role Phone Rebecca Pickens SILK SCREEN CUTTER Primary Care Provider Reason for Visit Reason Comments Joint Pain neck,arms,hands, Rash legs Encounter Details Date Type Department Care Team Description 05/28/2017 Office Visit [facility] Sudhir Rosales MD History of seronegative inflammatory art hritis (Primary Dx); Rheumatology & [address] [place] [address] Taking mult iple medications for chronic disease; Immunology - [facility] Skin rash [facility], [address], [address] [place], [place] [id number] [place] [address] [phone] (Wo rk) Social History Tobacco Use [...] Sign Reading Time Taken Comments Blood Pressure 151/76 05/28/2017 1501 EST Pulse 67 05/28/2017 1501 EST Temperature - - Respiratory Rate - - Oxygen Saturation - - Inhaled Oxygen Concentration - - Weight 103 kg (227 lb) 05/28/2017 1501 EST Height 181.6 cm (5' 11.5) 05/28/2017 1501 EST Body Mass Index 31.22 05/28/2017 1501 EST documented in this encounter Functional Status [...] as of this encounter Discharge Diagnoses Diagnosis Z87.39 Personal history of other disease s of the musculoskeletal system and connective tissue-Z87.39[ICD-10-CM] R69 Illness, unspecified-R69[ICD-10-CM] R21 Rash and other nonspecific skin erup tion-R21[ICD-10-CM] documented in this encounter Patient Instructions Patient InstructionsSudhir Rosales MD - 05/28/2017 15:00 EST 1. Decrease methotrexate to 17.5 mg (7 tab) orally weekly x 4 weeks then decrease to 15 mg (6 tab) orally weekly. 2. Continue folic acid 1 mg orally daily 3. Continue ibuprofen 600 mg - 800 mg orally every 8 hours with food as needed 4. Add tylenol 1000 mg orally every 8 hours as needed 5. May try topical aspercreme with lidocaine 4% (patches or cream)/Salonpas lidocaine 4% patches or capzasin cream or icy/hot or biofreeze up to 4x/day to affected muscles and joints. 6. Schedule an appointment with dermatology for a skin check. 7. Recheck blood work every 3-4 months 8. Follow up in 6 months documented in this encounter Discharge Disposition Disposition Code Departure Means Destination Auto Discharge documented in this encounter Progress Notes Svetlana Stringer - 05/28/2017 1500 EST REVIEW OF SYSTEMS: Yes No Yes No [...] x Hand/Foot color change in cold X Sudhir Giordano MD - 05/28/2017 1500 EST DIVISION OF RHEUMATOLOGY AND CLINICAL IMMUNOLOGY PROGRESS / FOLLOW-UP VISIT NOTE Date of Service: 05/28/2017 Pertinent Rheumatological History: 1. Seronegative inflammatory arthritis - On MTX 20 mg orally weekly with folic acid 1 mg orally daily - Will Reduce MTX to 17.5 mg orally weekly x 4 weeks then 15 mg orally weekly - Previously treated with hydroxychloroquine. 2. Degenerative disc disease 3. Rosacea - treated with Soolantra Previously followed with [facility] Chief Complaint Patient presents with ??? Joint Pain neck,arms,hands, ??? Rash legs SUBJECTIVE: Mr. Praneeth Villanueva is a 71 y.o. male with history of seronegative inflammatory polyarthritis and degenerative disc disease who presents today for a follow-up visit. he was last seen in clinic on 09/24/2016. Since his last visit: - MTX 20 mg (8 tabs) orally weekly with folic acid 1 mg orally daily - AM stiffness lasting approximately 30 minutes involving the hands and neck - Feels that he has lost the strength in his hands - Rash on his thighs, saw. Rebecca Pickens NP, prescribed triamcinolone ointment, hydrocortisone cream and lotrimin. This is improving. - REVIEW OF SYSTEMS: Review of systems as documented by Nurses/MA's during this visit and reviewed by me. MEDICATIONS: Current Outpatient Prescriptions: aspirin chewable 81 mg tablet Take 81 mg by mouth daily. finasteride (PROSCAR) 5 mg tablet Take 5 mg by mouth daily. folic acid (FOLVITE) 1 mg tablet Take 1 Tab by mouth daily. ibuprofen (MOTRIN) 200 mg tablet Take 200 mg by mouth every 6 hours as needed for Pain. ivermectin 1 % cream Apply topically to affected area daily. LACTOBACILLUS ACIDOPHILUS (PROBIOTIC ORAL) Take by mouth daily methotrexate 2.5 mg tablet Take 8 Tabs by mouth once a week. metoprolol (LOPRESSOR) 25 mg tablet Take 25 mg by mouth daily. omeprazole (PRILOSEC) 20 mg capsule Take 40 mg by mouth daily. RANITIDINE HCL ORAL Take by mouth. simvastatin (ZOCOR) 40 mg tablet Take 40 mg by mouth every evening. triamcinolone (KENALOG) 0.1 % cream Apply topically daily. OBJECTIVE: Blood pressure (!) 151/76, pulse 67, height 181.6 cm (71.5), weight (!) 103 kg (227 lb). General: No acute distress. Alert, fully oriented, pleasant, conversant. HEENT: Conjunctivae/corneas clear. Pupils equal, Sclerae anicteric. Mucus membranes moist; oropharynx clear. Neck supple, symmetrical, trachea midline Lungs: Clear to auscultation bilaterally. Heart: Regular rate and rhythm, S1, S2 present, no murmur Abdomen: Soft, non-tender, non-distended. Extremities: Extremities without cyanosis or edema. Lower extremity varicosities. Skin: Facial rash with telangiectasia. Resolving confluent linear rash on bilateral inner thighs. Musculoskeletal: Spine: No significant tenderness. Normal range of motion of the spine. Shoulder/Elbow: No significant tenderness, swelling, effusions, erythema or warmth is present. Appropriate range of motion present. Wrist/Hand: Mild thickening of the 1stn-3rd MCP joints without tenderness, bogginess or erythema. Nosignificant tenderness, swelling, effusions, erythema or warmth is present. Appropriate range of motion present. Hips/Knee: Slight warmth of the left knee. Mild crepitance bilaterally. No other significant tenderness, swelling, effusions, erythema or warmth is present. Appropriate range of motion present. Ankle/Foot: No significant tenderness, swelling, effusions, erythema or warmth is present. Appropriate range of motion present. DIAGNOSTIC DATA: Labs: Lab Results Component Value Date WBC 7.21 03/29/2015 WBC 7.10 09/20/2014 WBC 8.75 07/26/2014 WBC 9.15 06/23/2014 WBC 7.48 05/10/2014 HGB 14.6 03/29/2015 HGB 14.7 09/20/2014 HGB 15.1 07/26/2014 HGB 14.9 06/23/2014 HGB 14.4 05/10/2014 HCT 44.5 03/29/2015 HCT 43.7 09/20/2014 HCT 45.5 07/26/2014 HCT 44.4 06/23/2014 HCT 43.3 05/10/2014 MCV 91 03/29/2015 MCV 92 09/20/2014 MCV 91 07/26/2014 MCV 89 06/23/2014 MCV 88 05/10/2014 PLT 219 03/29/2015 PLT 210 09/20/2014 PLT 196 07/26/2014 PLT 212 06/23/2014 PLT 220 05/10/2014 Lab Results Component Value Date BUN 13 03/29/2015 CREATININE 0.90 03/29/2015 AST 14 (L) 03/29/2015 ALT 33 03/29/2015 Lab Results Component Value Date SEDRATE 5 05/10/2014 CRP 2.9 (H) 05/10/2014 Lab Results Component Value Date AMOL <40 05/10/2014 DSDNA <12.3 05/10/2014 C3 135 05/10/2014 C4 27 05/10/2014 RAPID3 Summary Functional Status: 0 Pain Tolerance: 2 Global Estimate: 1 Score: 3 Interpretation: Near Remission RAPID3 SCORES AND INTERPRETATION 12/27/2015 09/24/2016 05/28/2017 Functional Status 0 0.3 0 Pain Tolerance 0 - No Pain 3 2 Global Estimate 0 - Very Well 2.5 1 RAPID3 0 5.8 3 Interpretation Near Remission Low Near Remission IMPRESSION / PLAN: Mr. Praneeth Villanueva is a 71 y.o. male with 1. Seronegative Inflammatory arthritis - Doing well on methotrexate 20 mg orally weekly with folic acid 1 mg orally daily. AM stifffness lasting 10 - 30 minutes. Feels well. CBC w/diff and CMP on 05/01/2017 reviewed. No evidence of leukopenia, leukocytosis, anemia, thrombocytopenia, neutropenia, lymphopenia, renal insufficiency or transaminitis. Since he is doing well we can try to decrease methotrexate to 17.5 mg (7 tab) orally weekly ??4 weeks then decrease to 15 mg (6 tabs) orally weekly. If he remains stable with continue this dose. ?? 2. Facial Rosacea - treated with Soolantra 3. Skin rash on legs - resolving with topical corticosteroids. If rash worsens he was instructed to contact Dr. Farley's office. 4. Encounter for long-term (current) use of medications - CBC w/diff and CMP in August 2016 within normal limits. ?? PATIENT INSTRUCTIONS: 1. Decrease methotrexate to 17.5 mg (7 tab) orally weekly x 4 weeks then decrease to 15 mg (6 tab) orally weekly. 2. Continue folic acid 1 mg orally daily 3. Continue ibuprofen 600 mg - 800 mg orally every 8 hours with food as needed 4. Add tylenol 1000 mg orally every 8 hours as needed 5. May try topical aspercreme with lidocaine 4% (patches or cream)/Salonpas lidocaine 4% patches or capzasin cream or icy/hot or biofreeze up to 4x/day to affected muscles and joints. 6. Schedule an appointment with dermatology for a skin check. 7. Recheck blood work every 3-4 months 8. Follow up in 6 months There are no barriers to understanding/learning. Patient verbalizes understanding and agrees with plan. Sudhir Rosales MD 05/28/2017 Please note: Parts of this documentation was created using voice recognition software. Transcriptionerrors may be present. documented in this encounter Plan of Treatment Upcoming Encounters Date Type Specialty Care Team Description 12/27/2021 Office Visit Hematology and Erin Barillas M [facility] Oncology [address] [phone] (Joi diallo) 02/14/2022 Office Visit Hematology and Erin Barillas M D Oncology [address] [phone] (Joi diallo) 04/25/2022 Ancillary Procedure Cardiology 04/25/2022 Office Visit Cardiology Claire Lopez NP [address] [facility] [address] [place] [phone] (Joi diallo) 05/13/2022 Office Visit Rheumatology Tod Perez NP [address] [facility], [address] [place] [phone] (Wo rk) documented as of this encounter Visit Diagnoses Diagnosis History of seronegative inflammatory art hritis - Primary Taking multiple medications for chronic disease Other unknown and unspecified cause of m orbidity or mortality Skin rash Rash and other nonspecific skin eruption documented in this encounter Historical Medications This list may reflect changes made after this encounter. Medication Sig Dispensed Refills Start Date End Date triamcinolone (KENALOG) Apply topically 0 05/10/2019 0.1 % creamIndications: daily. History of seronegative inflammatory arthritis, Taking multiple medications for chronic disease, Skin rash added in this encounter Care Teams Knifeman Relationship Specialty Start Date End Date Rebecca Pickens FNP PCP - General 02/13/17 11/23/17 [address] [place] [phone] documented as of this encounter
--- OUTSIDE RECORDS SUMMARY | 2021-12-21 01:23 | XMS_ITS | Encounter Summary ---
:1945 Author Organization [facility] Address [address] [place] [address] Care Team Providers Name Role Phone Lawanda Teran [facility] Primary Care Provider [phone] Reason for Referral Radiology Services (Routine) - Authorization Not Required Specialty Diagnoses / Procedures Referred By Contact Refer red To Contact Diagnoses Radicular low back pain History of seronegative inflammatory arthritis Sick sinus syndrome (HCC-CMS) ([facility]) Pacemaker Sudhir Rosales MD Procedures CT MYELOGRAM LUMBAR W CONTRAST [address] [phone] Referral ID Status Reason Start Expiration Visits Visits Date Date Requested Authorized [id number] Authorization Not 11/24/2017 1 1 Required T/OT/ST (Routine) - New Request Specialty Diagnoses / Procedures Referred By Contact Refer red To Contact Diagnoses Radicular low back pain History of seronegative inflammatory arthritis Sick sinus syndrome (HCC-CMS) ([facility]) Pacemaker Sudhir Rosales MD [address] [phone] Referral ID Status Reason Start Expiration Visits Visits Date Date Requested Authorized [id number] New Request Specialty 11/24/2017 1 1 Services Required Question Answer Reason for Request: low back pain with left lowe r extremity radiculopathy rior Authorization (Routine) - Closed Specialty Diagnoses / Procedures Referred By Contact Refer red To Contact Diagnoses Radicular low back pain History of seronegative inflammatory arthritis Sick sinus syndrome (HCC-CMS) ([facility]) Pacemaker Sudhir Rosales MD [address] [place] [phone] Referral ID Status Reason Start Date Expiration Date Visits V isits Requested Authorized [id number] Closed Specialty 11/24/2017 1 1 Services Required Question Answer Reason for Request: CT myelogram of the lumbar s pine. Low back pain with left lower extremity radiculopathy. Wor se when ascending hills and spinal extension. Positive left low er extremity straight leg raise. Comments The purpose of this consult request is t o inform the scheduling staff that a procedure/surgery needs to be prior-auth orized before it is scheduled. adiology Services (Routine) - New Request Specialty Diagnoses / Procedures Referred By Contact Refer red To Contact Diagnoses Radicular low back pain History of seronegative inflammatory arthritis Sick sinus syndrome (HCC-CMS) ([facility]) Pacemaker Sudhir Rosales MD Procedures L SPINE 2-[address] [place] [phone] Referral ID Status Reason Start Date Expiration Date Visits V isits Requested Authorized [id number] New Request 11/24/2017 1 1 Reason for Visit Reason Comments Joint Pain right hand Back Pain lower left side Encounter Details Date Type Department Care Team Description 11/24/2017 Office Visit [facility] Sudhir Rosales MD Radicular low back pain (Primary Dx); Rheumatology & [address] [place] [address] History of seronegative inflammatory arthritis; Immunology - [facility] Sick sinus syndrome ([facility]-CMS); [id number] [place], [place] [phone] (Wo rk) Social History Tobacco Use Types [...] Sign Reading Time Taken Comments Blood Pressure 130/68 11/24/2017 1533 EDT Pulse - - Temperature - - Respiratory Rate - - Oxygen Saturation - - Inhaled Oxygen Concentration - - Weight 102.1 kg (225 lb) 11/24/2017 1533 EDT Height 181.6 cm (5' 11.5) 11/24/2017 1533 EDT Body Mass Index 30.95 11/24/2017 1533 EDT documented in this encounter Functional Status [...] as of this encounter Discharge Diagnoses Diagnosis M54.5 Low back pain-M54.5[ICD-10-CM] M54.10 Radiculopathy, site unspecified-M 54.10[ICD-10-CM] Z87.39 Personal history of other disease s of the musculoskeletal system and connective tissue-Z87.39[ICD-10-CM] I49.5 Sick sinus syndrome-I49.5[ICD-10-C M] documented in this encounter Patient Instructions Patient InstructionsSudhir Rosales MD - 11/24/2017 15:00 EDT 1. Please have an x-ray of your lumbar spine done today 2. We will order a CT Myelogram imaging of the lumbar spine to evaluate further for spinal stenosis 3. This can be scheduled by you at [facility] 4. Schedule physical therapy for lumbar spinal stenosis 5. Continue ibuprofen 800 mg orally up to every 8 hours with food 6. Continue methotrexate 15 mg (6 tab) orally weekly 7. Once your back symptoms improve/resolve, we can then continue working on reducing the methotrexate. 8. If your back pain and left lower extremity symptoms worsen, please contact me. I can have you seethe spine doctors or pain management 9. Follow up in 6 months documented in this encounter Discharge Disposition Disposition Code Departure Means Destination Auto Discharge documented in this encounter Progress Notes Sudhir Rosales MD - 11/24/2017 1500 EDT DIVISION OF RHEUMATOLOGY AND CLINICAL IMMUNOLOGY PROGRESS / FOLLOW-UP VISIT NOTE Date of Service: 11/24/2017 Pertinent Rheumatological History: 1. Seronegative inflammatory arthritis [...] Complaint Patient presents with ??? Joint Pain right hand ??? Back Pain lower left side SUBJECTIVE: Mr. Deon Villanueva is a 72 y.o. male with history of seronegative inflammatory polyarthritis and degenerative disc disease who presents today for a follow-up visit. he was last seen in clinic on 05/28/2017. Since his last visit: - Decreased MTX to 15 mg (6 tabs) orally weekly with folic acid 1 mg orally daily - AM stiffness lasting approximately 30 minutes involving the hands and neck - Low back pain with radiation into the LLE. Radicular symptoms while sitting and standing. - laying flat on his back provokes pain - lays on his right side which provides some relief. - Able to cut grass and weed wacking without issues - walking up hills worsens lower extremity and lowe back pain - bilateral shoulders do get colder as well - ibuprofen 800 mg orally daily as needed REVIEW OF SYSTEMS: Review of systems as [...] cream Apply topically to affected area daily. (Patient not taking: Reported on 11/24/2017) LACTOBACILLUS ACIDOPHILUS (PROBIOTIC ORAL) Take by mouth daily methotrexate 2.5 mg tablet Take 6 Tabs by mouth once a week. metoprolol (LOPRESSOR) 25 mg tablet Take 25 mg by mouth daily. omeprazole (PRILOSEC) 20 mg capsule Take 40 mg by mouth daily. RANITIDINE HCL ORAL Take by mouth. simvastatin (ZOCOR) 40 mg tablet Take 40 mg by mouth every evening. triamcinolone (KENALOG) 0.1 % cream Apply topically daily. OBJECTIVE: Blood pressure 130/68, height 181.6 cm (71.5), weight (!) 102.1 kg (225 lb). General: No acute distress. Alert, fully [...] present. Appropriate range of motion present. Hips/Knee: positive straight leg raise test causing electrical shooting pain down the LLE. Slight warmth of the left knee. Mild [...] 05/10/2014 C3 135 05/10/2014 C4 27 05/10/2014 [facility]: 11/18/18: CBC with differential: CBC = 9.9 Hemoglobin = 16.5 Hematocrit = 49.2 Platelet = 25 MCV = 94.3 Neutrophil = 16.1% Lymphocyte = 20.4% Monocytes = 8.0% Eosinophil = 2.7% CMP: Calcium 9.0 BUN = 16 Creatinine = 1.14 Estimated GFR > 60 Total protein = 6.9 Albumin: 4.0 Total bilirubin = 0.6 Alkaline phosphatase = 70 Sodium = 140 Potassium = 4.5 Chloride = 104 CO2 = 26.5 AST = 10 low ( normal =15-37) ALT = 20 Results: SURGICAL PATHOLOGY Status: Final result (Collected: 10/23/2016 18:29) SURGICAL PATHOLOGY Status: Final result ?Visible to patient: Yes ([employer]) Next appt: 05/25/2018 at 11:40 inRheumatology (Sudhir Rosales MD) Order: [id number] ?? 1yr ago Pathology Report: SURGICAL PATHOLOGY REPORT Reports generated via electronic interface contain original data; however they are lacking the format of the original report. Caution should be taken when reading/interpreting unformatted reports. Name: ? DEON VILLANUEVA ? Accession #: ? [id number] ? : ? 1945 (Age: 71) ??M ?Collect Date: ? 10/23/2016 ? Location: ? [facility] ? Receive Date: ? 10/24/2016 ? Provider: SHREYA LEA MD Copy to: [facility] ? Final Pathologic Diagnosis: A. ??GASTROESOPHAGEAL [...] in B1. Ann Moscoso 10/25/2016 7:55 AM Results: SURGICAL PATHOLOGY Status: Final result (Collected: 10/23/2016 18:29) SURGICAL PATHOLOGY Status: Final result ?Visible to patient: Yes ([employer]) Next appt: 05/25/2018 at 11:40 inRheumatology (Sudhir Rosales MD) Order: [id number] ?? 1yr ago Pathology Report: SURGICAL PATHOLOGY REPORT Reports generated via electronic interface contain original data; however they are lacking the format of the original report. Caution should be taken when reading/interpreting unformatted reports. Name: ? DEON VILLANUEVA ? Accession #: ? [id number] ? : ? 1945 (Age: 71) ??M ?Collect Date: ? 10/23/2016 ? Location: ? [facility] ? Receive Date: ? 10/24/2016 ? Provider: SHREYA LEA MD Copy to: [facility] ? Final Pathologic Diagnosis: A. ??GASTROESOPHAGEAL [place], [...] in B1. Ann Moscoso 10/25/2016 7:55 AM RAPID3 Summary Functional Status: 0.3 Pain Tolerance: 1 Global Estimate: 1 Score: 2.3 Interpretation: Near Remission RAPID3 SCORES AND INTERPRETATION 12/27/2015 09/24/2016 05/28/2017 11/24/2017 Functional Status 0 0.3 0 0.3 Pain Tolerance 0 - No Pain 3 2 1 Global Estimate 0 - Very Well 2.5 1 1 RAPID3 0 5.8 3 2.3 Interpretation Near Remission Low Near Remission Near Remission IMPRESSION / PLAN: Mr. Deon Villanueva is a 72 y.o. male with 1. Low back pain with LLE radiculopathy - denies trauama to lower back. Describes pain and LLE paresthesia with spinal extension, ambulating up hill and laying supine. Able to participate in [employer] and weed whacking without difficulty. Ibuprofen 800 mg orally as needed helps alleviate back pain but not the radicular symptoms. On examination he has a positive straight leg raise test. I will order a lumbar spine x-ray and physical therapy. I have also submitted a PA for a CT myelogram has also been ordered. An MRI is contraindicated as he as a [employer]onic SES01 pacemaker that is not MRI compatible. Local steroid injections can be considered either by pain management or [place] interventional spine. 2. Seronegative Inflammatory arthritis - Doing well since reducing methotrexate to methotrexate 15 mg orally weekly with folic acid 1 mg orally daily. AM stifffness lasting 10 - 30 minutes. Feels well.CBC w/diff and CMP on 05/01/2017 reviewed. No evidence of leukopenia, leukocytosis, anemia, thrombocytopenia, neutropenia, lymphopenia, renal insufficiency or transaminitis. ?? 3. 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 4. Facial Rosacea - treated with Soolantra 5. Skin rash on legs - resolving with topical corticosteroids. If rash worsens he was instructed to contact Dr. Farley's office. 56. Encounter for long-term (current) use of medications - CBC w/diff and CMP in October 2017 is within normal limits. ?? PATIENT INSTRUCTIONS: 1. Please have an x-ray of your lumbar spine done today 2. We will order a CT Myelogram imaging of the lumbar spine to evaluate further for spinal stenosis 3. This can be scheduled by you at [facility] 4. Schedule physical therapy for lumbar spinal stenosis 5. Continue ibuprofen 800 mg orally up to every 8 hours with food 6. Continue methotrexate 15 mg (6 tab) orally weekly 7. Once your back symptoms improve/resolve, we can then continue working on reducing the methotrexate. 8. If your back pain and left lower extremity symptoms worsen, please contact me. I can have you seethe spine doctors or pain management 9. Follow up in 6 months There are no barriers to understanding/learning. Patient verbalizes understanding and agrees with plan. Sudhir Rosales MD 11/24/2017 Please note: Parts of this documentation was created using voice recognition software. Transcriptionerrors may be present. Svetlana Stringer - 11/24/2017 1500 EDT REVIEW OF SYSTEMS: Yes No Yes No Fever X Joint pain x Weight gain or loss pounds (lbs) Duration of AM joint stiffness 1 hour Eye pain or dryness X Numbness/tingling x [...] note change(s) below and update record x documented in this encounter Plan of Treatment Upcoming Encounters Date Type Specialty Care Team Description 12/27/2021 Office Visit Hematology and Erin Barillas M D Oncology [address] [phone] (Wo rk) 02/14/2022 Office Visit Hematology and Erin Barillas M D Oncology [address] [phone] (Wo rk) 04/25/2022 Ancillary Procedure Cardiology 04/25/2022 Office Visit Cardiology Claire Lopez NP 130 [facility] [address] [place] [phone] (Wo rk) 05/13/2022 Office Visit Rheumatology Tod Perez NP 111 [facility] [address] [place] [phone] (Wo rk) Scheduled Orders Name Type Priority Associated Diagnoses Order S chedule CT MYELOGRAM LUMBAR W Imaging Routine Radicular low back pain Ordered: 11/24/2017 CONTRAST History of seronegative inflammatory art hritis Sick sinus syndrome (HCC-CMS) Pacemaker Scheduled Referrals Name Type Priority Associated Diagnoses Order S chedule AMB CONS/FOLLOW UP Outpatient Routine Radicular low back Ord ered: PROCEDURE PRIOR Referral pain 11/24/2017 AUTHORIZATION REQUEST History of seronegative inflammatory arthritis Sick sinus syndrome (CMS-HCC) Pacemaker AMB CONS/FOLLOW UP Outpatient Routine Radicular low back Ord ered: PHYSICAL THERAPY Referral pain 11/24/2017 History of seronegative inflammatory arthritis Sick sinus syndrome (HCC-CMS) Pacemaker documented as of this encounter Procedures Procedure Name Priority Date/Time Associated Diagnosis Comme nts L SPINE 2-3 VIEWS Routine 11/24/2017 16:44 Radicular low back Results for this EDT pain procedure are in History of the results seronegative section. inflammatory arthritis Sick sinus syndrome (HCC-CMS) Pacemaker documented in this encounter Results L SPINE 2-3 VIEWS (11/24/2017 16:44 EDT) Anatomical Region Laterality Modality Other Specimen Narrative [facility]/MAIN [facility] MPUS - 11/26/2017 8:39 EDT L SPINE 2-3 VIEWS ??11/24/2017 4:44 PM Signs and Symptoms/Comments: ?? M54.10-Radiculopathy, site unspecified-I CD-10 Z87.39-Personal history of other diseases of the musculo skeletal system and connective [id number]; Low back pain with left lower extremity radiculopathy. ??Worse when ascending hi lls and spinal extension. Positive left lower extremity straight l eg raise. COMPARISON: None FINDINGS: Recumbent frontal, lateral and spot LS lateral views were obtained. Alignment is normal and vertebral body h eights are preserved. Moderate disc space narrowing is present at L4-L5. The L5-S1 disc space is severely narrowed. Facet arthro jeniffer is probably present at L4-L5, but the facets are incompletely e valuated without oblique views. Procedure Note Arjun Draper MD - 11/26/2017 L SPINE 2-3 VIEWS 11/24/2017 4:44 PM Signs and Symptoms/Comments: M54.10-Radiculopathy, site unspecified-I CD-10 Z87.39-Personal history of other diseases of the musculo skeletal system and connective [id number]; Low back pain with left lower extremity radiculopathy. Worse when ascending hill s and spinal extension. Positive left lower extremity straight l eg raise. COMPARISON: None FINDINGS: Recumbent frontal, lateral and spot LS lateral views were obtained. Alignment is normal and vertebral body h eights are preserved. Moderate disc space narrowing is present at L4-L5. The L5-S1 disc space is severely narrowed. Facet arthro jeniffer is probably present at L4-L5, but the facets are incompletely e valuated without oblique views. Performing Organization Address City/State/ZIP Code Phon e Number [facility] documented in this encounter Visit Diagnoses Diagnosis Radicular low back pain - Primary Thoracic or lumbosacral neuritis or radi culitis, unspecified History of seronegative inflammatory art hritis Sick sinus syndrome (HCC-CMS) (HCC) Sinoatrial node dysfunction Pacemaker Cardiac pacemaker in situ documented in this encounter Care Teams Violin Restorer Relationship Specialty Start Date End Date Lawanda Teran, [facility] PCP - General 11/24/17 04/06/19 [address] [place] [phone] documented as of this encounter
--- OUTSIDE RECORDS SUMMARY | 2021-12-21 01:23 | XMS_ITS | Encounter Summary ---
:1945 Author Organization [facility] Address [address] [place] [address] Care Team Providers Name Role Phone Rebecca Pickens THERAPEUTIC STRATEGY LEAD Primary Care Provider Reason for Visit Reason Onset Date Comments Medications Refill 04/22/2017 Encounter Details Date Type Department Care Team Description 04/22/2017 Refill [facility] Sudhir Rosales MD Medications Refill Rheumatology & Immunology [address] [place], [place] [address] [place] [address] [phone] (Wo rk) Social History Tobacco Use [...] Take 8 Tabs by 96 Tab 1 04/2311/09/2017 mouth once a week. documented in this encounter Miscellaneous Notes Telephone Encounter - Claudia Salgado RN - 04/23/2017 1113 EST From: Praneeth Villanueva To: Sudhir Rosales MD Sent: 04/22/2017 6:22 EST Subject: Medication Renewal Request Original authorizing provider: MD Praneeth Evans would like a refill of the following medications: methotrexate 2.5 mg tablet [Sudhir Rosales MD] Preferred pharmacy: [address] Comment: documented in this encounter Plan of Treatment Upcoming Encounters Date Type Specialty Care Team Description 12/27/2021 Office Visit Hematology and Erin Barillas M D Oncology [address] [place] [phone] (Wo rk) 02/14/2022 Office Visit Hematology and Erin Barillas M D Oncology [address] [place] [phone] (Wo rk) 04/25/2022 Ancillary Procedure Cardiology 04/25/2022 Office Visit Cardiology Claire Lopez NP [address] [phone] (Wo rk) 05/13/2022 Office Visit Rheumatology Tod Perez NP [address] [phone] (Wo rk) documented as of this encounter Visit Diagnoses Not on filedocumented in this encounter Discontinued Medications Medication Sig Discontinue Reason Start Date End Date methotrexate 2.5 mg tablet Take 8 Tabs by Reorder 11/05/2016 04/22/2017 mouth once a week. documented as of this encounter Care Teams Certified Public Accountant Relationship Specialty Start Date End Date Rebecca Pickens FNP PCP - General 02/13/17 11/23/[address] [place] [phone] documented as of this encounter
--- OUTSIDE RECORDS SUMMARY | 2021-12-21 01:23 | XMS_ITS | Encounter Summary ---
:1945 Author Organization [facility] Address [address] [place] [address] Care Team Providers Name Role Phone Lawanda Teran [facility] Primary Care Provider [phone] Reason for Visit Reason Comments Follow-up pt says he is stiff, but doi ng okay Encounter Details Date Type Department Care Team Description 07/07/[address] [facility] Sudhir Rosales MD History of seronegative inflammatory art hritis (Primary Dx); Rheumatology & [address] [place] [address] Encounter f or long-term (current) use of medications Immunology - [facility], [address], [address] [place], [place] [address] [place] [address] [phone] (Wo rk) Social History Tobacco Use [...] Sign Reading Time Taken Comments Blood Pressure 119/67 07/07/2018 1157 EST Pulse 64 07/07/2018 1157 EST Temperature - - Respiratory Rate - - Oxygen Saturation - - Inhaled Oxygen Concentration - - Weight 102.1 kg (225 lb) 07/07/2018 1157 EST Height 181.5 cm (5' 11.46) 07/07/2018 1157 EST Body Mass Index 30.98 07/07/2018 1157 EST documented in this encounter Functional Status [...] of the musculoskeletal system and connective tissue-Z87.39[ICD-10-CM] Z79.899 [facility] [place] [facility] (current) drug t herapy-Z79.899[ICD-10-CM] documented in this encounter Patient Instructions Patient InstructionsSudhir Rosales MD - 07/07/2018 11:20 EST 1. Decrease methotrexate to 12.5 mg (5 tab) orally weekly. Continue this for 4 weeks then decrease to 10 mg (4 tab) orally weekly. 2. Continue folic acid 1 mg orally daily 3. If symptoms of joint pain/swelling worsen, you can increase methotrexate back to the dose where you felt the best. 4. Recheck blood work every 3 months 5. Follow up in 5 months documented in this encounter Ordered Prescriptions Prescription Sig Dispensed Refills Start Date End Date methotrexate 2.5 mg tablet Take 6 Tabs by 72 Tab 1 07/0712/07/2018 mouth once a week. documented in this encounter Discharge Disposition Disposition Code Departure Means Destination Auto Discharge documented in this encounter Progress Notes Sudhir Rosales MD - 07/07/2018 1120 EST DIVISION OF RHEUMATOLOGY AND CLINICAL IMMUNOLOGY PROGRESS / FOLLOW-UP VISIT NOTE Date of Service: 07/07/2018 Pertinent Rheumatological History: 1. Seronegative inflammatory arthritis [...] Mcclendon Chief Complaint Patient presents with ??? Follow-up pt says he is stiff, but doing okay SUBJECTIVE: Mr. Deon Villanueva is a 72 y.o. male with history of seronegative inflammatory polyarthritis and degenerative disc disease who presents today for a follow-up visit. he was last seen in clinic on 11/24/2017. Since his last visit: - Participated in PT with improvement of his low back pain. - CT myelogram was cancelled due to improvement of symptoms - Feeling well. - Travelled to [place] [facility]. Able to ambulate without difficulty. - Decreased MTX to 15 mg (6 tabs) orally weekly with folic acid 1 mg orally daily - AM stiffness lasting approximately 30 minutes involving the hands and neck - Ibuprofen 800 mg orally daily as needed. Has not needed this in recent months. REVIEW OF SYSTEMS: Review of systems as documented by Nurses/MA's during this visit and reviewed by me. MEDICATIONS: Current Outpatient Medications: aspirin chewable 81 mg tablet Take 81 [...] cream Apply topically daily. OBJECTIVE: Blood pressure 119/67, pulse 64, height 181.5 cm (71.46), weight (!) 102.1 kg (225 lb). General: [...] is present. Appropriate range of motion present. No changes since last visit. Hips/Knee: Mild crepitance bilaterally. No other significant tenderness, [...] 05/10/2014 C3 135 05/10/2014 C4 27 05/10/2014 [facility]: 11/18/18: CBC with differential: [...] Status: Final result ?Visible to patient: Yes (Zscaler) Next appt: 05/25/2018 at 11:40 inRheumatology (Sudhir Rosales MD) Order: [id number] ?? 1yr ago Pathology Report: SURGICAL PATHOLOGY REPORT Reports generated via electronic interface contain original data; however they are lacking the format of the original report. Caution should be taken when reading/interpreting unformatted reports. Name: ? DEON VILLANUEVA ? Accession #: ? [id number] ? : ? 1945 (Age: 71) ??M ?Collect Date: ? 10/23/2016 ? Location: ? [facility] ? Receive Date: ? 10/24/2016 ? Provider: SHREYA LEA MD Copy to: MINDY SZYMANSKI [employer]OUNDR[employer] WORKER APPRENTICE ? Final Pathologic Diagnosis: A. ??GASTROESOPHAGEAL JUNCITON, [...] Status: Final result ?Visible to patient: Yes (Zscaler) Next appt: 05/25/2018 at 11:40 inRheumatology (Sudhir Rosales MD) Order: [id number] ?? 1yr ago Pathology Report: SURGICAL PATHOLOGY REPORT Reports generated via electronic interface contain original data; however they are lacking the format of the original report. Caution should be taken when reading/interpreting unformatted reports. Name: ? DEON VILLANUEVA ? Accession #: ? [id number] ? : ? 1945 (Age: 71) ??M ?Collect Date: ? 10/23/2016 ? Location: ? [facility] ? Receive Date: ? 10/24/2016 ? Provider: SHREYA LEA MD Copy to: MINDY SZYMANSKI [facility] ? Final Pathologic Diagnosis: A. ??GASTROESOPHAGEAL JUNCITON, [...] 10/25/2016 7:55 AM RAPID3 Summary Functional Status: 0 Pain Tolerance: 2 Global Estimate: 1 Score: 3 Interpretation: Near Remission RAPID3 SCORES AND INTERPRETATION 12/27/2015 09/24/2016 05/28/2017 11/24/2017 07/07/2018 Functional Status 0 0.3 0 0.3 0 Pain Tolerance 0 - No Pain 3 2 1 2 Global Estimate 0 - Very Well 2.5 1 1 1 RAPID3 0 5.8 3 2.3 3 Interpretation Near Remission Low Near Remission Near Remission Near Remission IMPRESSION / PLAN: Mr. Deon Villanueva is a 72 y.o. male with 1. Seronegative Inflammatory arthritis - Doing well since reducing methotrexate to methotrexate 15 mg orally weekly with folic acid 1 mg orally daily. AM stifffness lasting 10 - 30 minutes. Feels well.CBC w/diff and CMP on 05/03/2018 reviewed. No evidence of leukopenia, leukocytosis, anemia, thrombocytopenia, neutropenia, lymphopenia, renal insufficiency or transaminitis. Will continue to reduce methotrexate. Decrease to 12.5 mg orally weekly x 4 weeks then 10 mg orally weekly. If arthritis symptoms return or worsen, he was instructed to increase back to the dose where he felt most comfortable. Monitor CBC w/diff and CMP every 3-4 months. 2. Low back pain with LLE radiculopathy - denied trauama to lower back. Described pain and LLE paresthesia with spinal extension, ambulating up hill and laying supine. 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 Ibuprofen 800 mg orally as needed helps alleviate back pain but not the radicular symptoms. On examination had a positive straight leg raise test. Participated in PT with improvement of symptoms. Cancelled CT myelogram (ordered since an MRI is contraindicated as he as a [employer]onic SES01 pacemaker that is not MRI compatible). If symptoms worsen or return, this can be ordered and/or a local steroid injections can be considered either by pain management or [place] interventional spine. ?? 3. 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 4. Facial Rosacea - treated with Soolantra 5. Skin rash on legs - resolving with topical corticosteroids. If rash worsens he was instructed to contact Dr. Farley's office. 6. Encounter for long-term (current) use of medications - CBC w/diff and CMP in October 2017 is within normal limits. ?? PATIENT INSTRUCTIONS: 1. Decrease methotrexate to 12.5 mg (5 tab) orally weekly. Continue this for 4 weeks then decrease to 10 mg (4 tab) orally weekly. 2. Continue folic acid 1 mg orally daily 3. If symptoms of joint pain/swelling worsen, you can increase methotrexate back to the dose where you felt the best. 4. Recheck blood work every 3 months 5. Follow up in 5 months There are no barriers to understanding/learning. Patient verbalizes understanding and agrees with plan. Sudhir Rosales MD 07/07/2018 Please note: Parts of this documentation was created using voice recognition software. Transcriptionerrors may be present. Bill Walker - 07/07/2018 1120 EST REVIEW OF SYSTEMS: Yes No Yes No Fever X Joint pain x Weight gain or loss pounds (lbs) Duration of AM joint stiffness 1 hours Eye pain or dryness X Numbness/tingling X [...] and Erin Barillas M D Oncology [address] [place] [phone] (Wo rk) 02/14/2022 Office Visit Hematology and Erin Barillas M D Oncology [address] [address] [place] [phone] (Wo rk) 04/25/2022 Ancillary Procedure Cardiology 04/25/2022 Office Visit Cardiology [facility] NP [facility] [address] [place] [address] (Wo rk) 05/13/2022 Office Visit Rheumatology Tod Perez NP 111 [facility], [facility] 5 [place] [address] (Wo rk) documented as of this encounter Visit Diagnoses Diagnosis History of seronegative inflammatory art hritis - Primary Encounter for long-term (current) use of medications Encounter for long-term (current) use of other medications documented in this encounter Discontinued Medications Medication Sig Discontinue Reason Start Date End Date methotrexate 2.5 mg tablet Take 6 Tabs by Reorder 04/28/2018 07/07/2018 mouth once a week. documented as of this encounter Care Teams Companion Caregiver Relationship Specialty Start Date End Date Lawanda Teran FNP-BC PCP - General 11/24/17 04/06/19 [address] [place] [address] documented as of this encounter
--- OUTSIDE RECORDS SUMMARY | 2021-12-21 01:23 | XMS_ITS | Encounter Summary ---
:1945 Author Organization [facility] Address [address] [place] [address] Care Team Providers Name Role Phone Dereck Schultz MD Primary Care Provider [phone] Encounter Details Date Type Department Care Team Description 12/06/2019 Hospital Encounter [facility] Nay Barillas MD Ambulatory Infusion 111 [facility], [facility] 111 [facility] [address] 2 [place], [place] [address] [place] [address] [phone] (Wo rk) Social History Tobacco Use [...] Sign Reading Time Taken Comments Blood Pressure 152/80 12/06/2019 1219 EDT Pulse 60 12/06/2019 1219 EDT Temperature 35.5 ??C (95.9 ??F) 12/06/2019 1100 EDT Respiratory Rate 16 12/06/2019 1100 EDT Oxygen Saturation - - Inhaled Oxygen [...] documented as of this encounter Discharge Instructions Chikis Crook RN - 12/06/2019 After having a therapeutic phlebotomy, your body will require time to adjust to the loss of blood. You may feel mildly light-headed or dizzy and may need to lie down for a few minutes. Please make sureto increase your fluid intake about 2 liters per day with water or juices for the next two to three days and avoid alcohol. Also, you should avoid strenuous activity for the next six to eight hours. You should keep your arm dry for a few hours. You may develop a bruise at the site where the needle was placed. This is normal and will disappear in a few days. You may wish to use a warm compress to help this. There should be no bleeding at the site after you leave. If this does occur, raise your arm above the level of your heart and apply direct pressure to the site with a clean gauze until the bleeding stops. If the bleeding does not stop within 5 minutes, go to the Urgent Care or call 911 for an ambulance if you are bleeding heavily. documented in this encounter Medications at Time [...] Code Departure Means Destination Home or Self Jail documented in this encounter Progress Notes Chikis Centeno RN - 12/06/2019 1158 EDT Patient Praneeth Villanueva admitted to [address] for Therapeutic Phlebotomy related to D45. Patient identification verified verbally and on patient armband. Therapeutic phlebotomy performed per protocol. Peripheral IV placed. Blood collection bag attached and unclamped. Tourniquet released after blood began to flow. 500 ml blood withdrawn over 25 minutes. Patient encouraged to increase po fluids before, during and after Therapeutic Phlebotomy procedure. NS bolus given 250 ml post infusion. Patient tolerated procedure. Pressure dressing applied. Post Therapeutic phlebotomy instructions reviewed with patient. No heavy lifting with the arm the IV was placed in for the next 6-8 hours to prevent bleeding. Increase fluids over next two days. Dressing clean dry and intact upon discharge. CHIKIS ECNTENO RN 12/06/2019 12:29 documented in this encounter Plan of Treatment Upcoming Encounters Date Type Specialty Care Team Description 12/27/2021 Office Visit Hematology and Erin Barillas M D Oncology 111 [facility], [facility] 2 [place] [address] (Wo rk) 02/14/2022 Office Visit Hematology and Erin Barillas M D Oncology 111 [facility] 2 [place] [address] (Wo rk) 04/25/2022 Ancillary Procedure Cardiology 04/25/2022 Office Visit Cardiology Claire Lopez NP 130 [facility] [address] [place] [phone] (Wo rk) 05/13/2022 Office Visit Rheumatology Tod Perez NP 111 [facility], [address] [place] [address] (Wo rk) documented as of this encounter Visit Diagnoses Not on filedocumented in this encounter Administered Medications Inactive Administered Medications - up to 3 most recent administrations Medication Order MAR Action Action Date Dose Rate Site sodium chloride 0.9 % BOLUS 250 mL New Bag 12/06/2019 12:24 EDT 250 mL 250 mL, intravenous, NOW X1, 1 dose, On 12/06/19 at 1200, Routine documented in this encounter Orders Medications Ordered That Might Not Have Count Last Ord ered Date First Ordered Date Been Administered sodium chloride 0.9 % BOLUS 250 mL 1 12/06/2019 documented in this encounter Care Teams Room Service Attendant Relationship Specialty Start Date End Date Dereck Schultz MD PCP - General 04/07/19 04/04/20 [address] [place] [phone] documented as of this encounter
--- OUTSIDE RECORDS SUMMARY | 2021-12-21 01:23 | XMS_ITS | Encounter Summary ---
:[address] [facility] Address [address] [place] [address] Care Team Providers Name Role Phone Dereck Schultz MD Primary Care Provider [phone] Reason for Visit (Routine) - Authorization Not Required Specialty Diagnoses / Procedures Referred By Contact Refer red To Contact Diagnoses Pacemaker Claire Lopez NP Procedures CARDIAC IMPLANT CHECK - IN CLINIC 130 [facility] [address] [place] [address] Referral ID Status Reason Start Expiration Visits Visits Date Date Requested Authorized [id number] Authorization Not 1 1 Required 9 Encounter Details Date Type Department Care Team Description 11/18/2019 Ancillary Procedure [facility] Pacemaker Cardiology Clinic [address] [place] [address] Social History Tobacco Use Types Packs/Day [...] Erin Barillas M D Oncology [address] [phone] (Wo rk) 02/14/2022 Office Visit Hematology Erin Hernandez M D Oncology [address] [place] [phone] (Wo rk) 04/25/2022 Ancillary Procedure Cardiology 04/25/2022 Office Visit Cardiology Claire Lopez NP 130 [facility] [address] [phone] (Wo rk) 05/13/2022 Office Visit Rheumatology Tod Perez NP 111 [facility] 5 [place] [address] (Wo rk) documented as of this encounter Procedures Procedure Name Priority Date/Time Associated Diagnosis Comme nts CARDIAC IMPLANT Routine 11/22/2019 11:05 Pacemaker Results for this CHECK - IN CLINIC EDT procedure are in the results section. documented in this encounter Results CARDIAC IMPLANT CHECK - IN CLINIC - PACEMAKER SINGLE CHAMBER W/ PROG (11/22/2019 11:05 EDT) Specimen Narrative DEVICECHECK - 11/22/2019 11:05 EDT Refer to same day OV for full details Performing Organization Address City/State/ZIP Code Phon e Number DEVICECHECK documented in this encounter Visit Diagnoses Diagnosis Pacemaker Cardiac pacemaker in situ documented in this encounter Care Teams Air Pollution Specialist Relationship Specialty Start Date End Date Dereck Schultz MD PCP - General 04/07/19 04/04/[address] [place] [phone] documented as of this encounter
--- OUTSIDE RECORDS SUMMARY | 2021-12-21 01:23 | XMS_ITS | Encounter Summary ---
:1945 Author Organization [facility] Address [address] [place] [address] Care Team Providers Name Role Phone Dereck Schultz MD Primary Care Provider [phone] Layne Cai MD Primary Care Provider Claire Lopez STATIONARY BOILER FIREMAN Unavailable Tod Perez STATIONARY BOILER FIREMAN Unavailable Encounter Details Date Type Department Care Team Description 09/24/2019 Telephone [facility] Rheumatology Claudia Salgado RN & Immunology - [facility] [place] [address] [place] [address] Social History Tobacco Use Types [...] Telephone Encounter - Claudia Salgado RN - 09/24/2019 7437 EDT Received PA request for prednisone. Called pharmacy and cost to pt would be $13 dollars. While speaking with pt asked about folic acid needing PA. Reported that we did not receive PA request for folic acid and is reporting that they are being told it will be over $300. Discussed to use [facility] where it is priced from $3 dollars to $5 dollars or get OTC. If any issues will call our office andwill pay frankel for the prednisone. documented in this encounter Plan of Treatment Upcoming Encounters Date Type Specialty Care Team Description 12/27/2021 Office Visit Hematology and Erin Barillas M D Oncology [address] [phone] (Joi diallo) 02/14/2022 Office Visit Hematology and Erin Barillas M D Oncology [address] [phone] (Joi rk) 04/25/2022 Ancillary Procedure Cardiology 04/25/2022 Office Visit Cardiology Claire Lopez NP 130 [facility] [address] [phone] (Wo rk) 05/13/2022 Office Visit Rheumatology Tod Perez NP [address] [phone] (Wo rk) documented as of this encounter Visit Diagnoses Not on filedocumented in this encounter Additional Health Concerns Infection Onset Date Last Indicated Resolved Time R/O COVID-19 12/28/2020 12/28/2020 01/02/2021 22:15 EDT documented as of this encounter Care Teams Video Journalist Relationship Specialty Start Date End Date Dereck Schultz MD PCP - General 04/07/19 04/04/20 [address] [place] [phone] Layne Cai MD PCP - General 04/05/20 [address] [place] [phone] Claire Lopez NP Cardiovascular Disease 11/22/20 130 [facility] [address] [place] [phone] Tod Perez NP Rheumatology 12/28/[address] [place] [address], [address] [place] [phone] documented as of this encounter
--- OUTSIDE RECORDS SUMMARY | 2021-12-21 01:23 | XMS_ITS | Encounter Summary ---
:1945 Author Organization [facility] Address [address] [place] [address] Care Team Providers Name Role Phone Dereck Schultz MD Primary Care Provider [phone] Reason for Visit Reason Onset Date Comments Appointment Related 11/03/2019 Encounter Details Date Type Department Care Team Description 11/03/2019 Telephone [facility] Erin Barillas MD Appointment Related Hematology & Oncology 111 [facility], [facility] 111 [facility], [address] [place] [address] [place] [phone] (Wo rk) Social History Tobacco Use [...] Telephone Encounter - Elly Martinez MA - 11/03/2019 0924 EDT Called to pre-chart for appointment with Dr. Barillas on 11/03 at 11:00. No answer x2. documented in this encounter Plan of Treatment Upcoming Encounters Date Type Specialty Care Team Description 12/27/2021 Office Visit Hematology and Erin Barillas M D Oncology [address] [place] [phone] (Wo rk) 02/14/2022 Office Visit Hematology and Erin Barillas M D Oncology [address] [phone] (Wo rk) 04/25/2022 Ancillary Procedure Cardiology 04/25/2022 Office Visit Cardiology Claire Lopez NP [address] [place] [phone] (Wo rk) 05/13/2022 Office Visit Rheumatology Tod Perez NP [address] [phone] (Wo rk) documented as of this encounter Visit Diagnoses Not on filedocumented in this encounter Care Teams Network Operations Center Technician Relationship Specialty Start Date End Date Dereck Schultz MD PCP - General 04/07/19 04/04/20 [address] [place] [phone] documented as of this encounter
--- OUTSIDE RECORDS SUMMARY | 2021-12-21 01:23 | XMS_ITS | Encounter Summary ---
:1945 Author Organization [facility] Address [address] [place] [address] Care Team Providers Name Role Phone Dereck Schultz MD Primary Care Provider [phone] Encounter Details Date Type Department Care Team Description 11/18/2019 Orders Only [facility] - Claire Lopez Pa cemaker (Primary Dx) [facility] Cardiology Clin ic FORKLIFT TRUCK OPERATOR [address] [place] [address] [address] [place] [address] Social History Tobacco Use Types [...] D Oncology 111 [facility] 2 [place] [address] (Wo rk) 02/14/2022 Office Visit Hematology and Erin Barillas M D Oncology 111 [facility] 2 [place] [address] (Wo rk) 04/25/2022 Ancillary Procedure Cardiology 04/25/2022 Office Visit Cardiology Claire Lopez NP 130 [facility] [address] [place] [phone] (Wo rk) 05/13/2022 Office Visit Rheumatology Tod Perez NP 111 [facility], [facility] 5 [place] [address] (Wo rk) documented as of this encounter Visit Diagnoses Diagnosis Pacemaker - Primary Cardiac pacemaker in situ documented in this encounter Orders Implantable Cardiac Device Count Last Ordered Date Fir st Ordered Date CARDIAC IMPLANT CHECK - IN CLINIC 1 11/18/2019 documented in this encounter Care Teams Acquisition Specialist Relationship Specialty Start Date End Date Dereck Schultz MD PCP - General 04/07/19 04/04/20 4 [place] [phone] documented as of this encounter
--- OUTSIDE RECORDS SUMMARY | 2021-12-21 01:23 | XMS_ITS | Encounter Summary ---
:1945 Author Organization [facility] Address [address] [place] [address] Care Team Providers Name Role Phone Dereck Schultz MD Primary Care Provider [phone] Reason for Visit Reason Onset Date Comments Coordination Of Care 11/26/2019 Encounter Details Date Type Department Care Team Description 11/26/2019 Telephone [facility] Chikis Ji [facility] Hematology & Oncology - Main [place] [address] [place], [place] [phone] Social History Tobacco Use Types Packs/Day Years [...] Telephone Encounter - Chikis Ji RN - 11/26/[address] Barillas, Praneeth needs weekly therapeutic phlebotomy for now until Hct <45, he will need CBCD/CMP done prior to each phlebotomy, and she needs to see Praneeth prior to the first therapeutic phlebotomy appointment. In an effort to coordinate with Dr. Barillas's schedule and She 4, I submitted a Shep 4 booking request for 12/06/19. I entered therapeutic phlebotomy and CBCD/CMP orders. Called Praneeth's mobile phone and left a message stating I am working on coordinating the two follow upappointments and will reach out to him next week. Will follow up with Shep 4 and Dr. Barillas availability and contact Praneeth once the two appointments arecoordinated. documented in this encounter Plan of Treatment Upcoming Encounters Date Type Specialty Care Team Description 12/27/2021 Office Visit Hematology and Erin Barillas M D Oncology [address] [phone] (Joi diallo) 02/14/2022 Office Visit Hematology and Erin Barillas M D Oncology [address] [phone] (Joi diallo) 04/25/2022 Ancillary Procedure Cardiology 04/25/2022 Office Visit Cardiology Claire Lopez NP 130 [facility] [address] [place] [address] (Joi diallo) 05/13/2022 Office Visit Rheumatology Tod Perez NP 111 [facility], [facility] [address] [place] [address] (Wo rk) documented as of this encounter Results (ABNORMAL) COMPREHENSIVE METABOLIC PANEL (CMP) (12/06/2019 9:26 EDT) Sodium 138 136 - 145 [facility] mEq/L [facility] Potassium 4.9 3.5 - 5.0 [facility] mEq/L [facility] Chloride 102 96 - 110 [facility] mEq/L [facility] CO2 Total 30 22 - 32 mEq/L [facility] Glucose 111 (H) 70 - 100 [facility] mg/dL [facility] BUN 24 10 - 26 mg/dL [facility] Creatinine 1.09 0.66 - 1.25 [facility] mg/dL [facility] eGFR 66Comment: eGFR >60 [facility] calculated using mL/min/1.73m2 [facility] CKD-EPI equation SERVICES for non- Americans. Multiply eGFR by 1.16 for patients. Total Protein 7.1 6.3 - 8.2 [facility] g/dL [facility] Albumin 4.3 3.4 - 4.9 [facility] g/dL [facility] Alkaline 68 38 - 126 U/L [facility] Phosphatase [facility] AST 26 15 - 46 U/L [facility] ALT 16 <50 U/L [facility] Bilirubin, Total <0.5 <1.4 mg/dL [facility] Calcium 9.6 8.5 - 10.5 [facility] mg/dL [facility] Calculated Calcium 9.4 8.5 - 10.5 [facility] mg/dL [facility] Specimen Blood - Venous blood (substance) Performing Organization Address City/State/ZIP Code Phon e Number [facility] [address] [place] [address] SERVICES documented in this encounter Visit Diagnoses Diagnosis Polycythemia vera (HCC) - Primary documented in this encounter Care Teams Group Care Worker Relationship Specialty Start Date End Date Dereck Schultz MD PCP - General 04/07/19 04/04/[address] [place] [phone] documented as of this encounter
--- OUTSIDE RECORDS SUMMARY | 2021-12-21 01:23 | XMS_ITS | Encounter Summary ---
:1945 Author Organization [facility] Address [address] [place] [address] Care Team Providers Name Role Phone Dereck Schultz MD Primary Care Provider [phone] Reason for Referral Consult (Routine) - Closed Specialty Diagnoses / Procedures Referred By Contact Refer red To Contact Dermatology Diagnoses History of seronegative inflammatory arthritis Facial rash Taking multiple medications for chronic disease Sudhir Rosales MD [address] [place] [address], [address] [place], [place] Fax: [phone] Referral ID Status Reason Start Date Expiration Date Visits V isits Requested Authorized [id number] Closed Specialty 09/24/2016 1 1 Services Required Question Answer Reason for Request: Facial rash and skin check. History of inflammatory arthritis on methotrexate. Reason for Visit Reason Comments Joint Pain neck and shoulders am is the worst Encounter Details Date Type Department Care Team Description 09/24/2016 Office Visit [facility] Sudhir Rosales MD History of seronegative inflammatory art hritis (Primary Dx); Rheumatology & [address] [place] Facial rash ; Immunology - [address] Taking multiple medications for chronic disease [address], [address] [phone] ( rk) Social History Tobacco Use Types Packs/Day [...] Sign Reading Time Taken Comments Blood Pressure 151/75 09/24/2016 0754 EDT Pulse 67 09/24/2016 0754 EDT Temperature - - Respiratory Rate - - Oxygen Saturation - - Inhaled Oxygen Concentration - - Weight 112.5 kg (248 lb 0.3 oz) 09/24/2016 0754 EDT Height 182.9 cm (6') 09/24/2016 0754 EDT Body Mass Index 33.64 09/24/2016 0754 EDT documented in this encounter Functional Status [...] of the musculoskeletal system and connective tissue-Z87.39[ICD-10-CM] R21 Rash and other nonspecific skin erup tion-R21[ICD-10-CM] R69 Illness, unspecified-R69[ICD-10-CM] documented in this encounter Patient Instructions Patient InstructionsSudhir Rosales MD - 09/24/2016 8:00 EDT 1. Continue methotrexate 20 mg orally weekly 2. Continue folic acid 1 mg orally [...] 3-4 months 8. Follow up in 6 months. documented in this encounter Progress Notes Sudhir Rosales MD - 09/24/2016 0800 EDT DIVISION OF RHEUMATOLOGY AND CLINICAL IMMUNOLOGY PROGRESS / FOLLOW-UP VISIT NOTE Date of Service: 09/24/2016 Pertinent Rheumatological History: 1. Seronegative inflammatory arthritis - On MTX 20 mg orally weekly with folic acid 1 mg orally daily - Previously treated with hydroxychloroquine. 2. Degenerative disc disease Chief Complaint Patient presents with ??? Joint Pain neck and shoulders am is the worst SUBJECTIVE: Mr. Praneeth Villanueva is a 71 y.o. male with history of seronegative inflammatory polyarthritis and degenerative disc disease who presents today for a follow-up visit. he was last seen in clinic on 12/27/2015 by ALMA Pelletier. Since his last visit: - MTX 20 mg orally weekly with folic acid 1 mg orally daily - AM stiffness lasting approximately 10 minutes involving the hands and neck - Feels that he has lost the strength in his hands REVIEW OF SYSTEMS: Review of systems as documented by Nurses/MA's during this visit and reviewed by me. MEDICATIONS: Current Outpatient Prescriptions Medication Sig ??? aspirin chewable 81 mg tablet Take 81 mg by mouth daily. ??? finasteride (PROSCAR) 5 mg tablet Take 5 mg by mouth daily. ??? folic acid (FOLVITE) 1 mg tablet Take 1 Tab by mouth daily. ??? ibuprofen (MOTRIN) 200 mg tablet Take 200 mg by mouth every 6 hours as needed for Pain. ??? LACTOBACILLUS ACIDOPHILUS (PROBIOTIC ORAL) Take by mouth daily ??? methotrexate 2.5 mg tablet Take 8 Tabs by mouth once a week. ??? metoprolol (LOPRESSOR) 25 mg tablet Take 25 mg by mouth daily. ??? omeprazole (PRILOSEC) 20 mg capsule Take 40 mg by mouth daily. ??? RANITIDINE HCL ORAL Take by mouth. ??? simvastatin (ZOCOR) 40 mg tablet Take 40 mg by mouth every evening. OBJECTIVE: Blood pressure (!) 151/75, pulse 67, height 182.9 cm (72), weight (!) 112.5 kg (248 lb 0.3 oz). General: No acute distress. Alert, fully oriented, pleasant, conversant. HEENT: Conjunctivae/corneas clear. Pupils equal, Sclerae anicteric. Mucus membranes moist; oropharynx clear. Neck supple, symmetrical, trachea midline Lungs: Clear to auscultation bilaterally. Heart: Regular rate and rhythm, S1, S2 present, no murmur Abdomen: Soft, non-tender, non-distended. Extremities: Extremities without cyanosis or edema. Lower extremity varicosities. Skin: Facial rash. Musculoskeletal: Spine: No significant tenderness. Normal range [...] C3 135 05/10/2014 C4 27 05/10/2014 RAPID3 (Routine assessment of pt index data): Rapid3 score: 5.8 Disease activity: LS Goal: continue to help alleviate arthritis symptoms. This was discussed with patient. RAPID3 SCORES AND INTERPRETATION 12/27/2015 09/24/2016 Functional Status 0 0.3 Pain Tolerance 0 - No Pain 3 Global Estimate 0 - Very Well 2.5 RAPID3 0 5.8 Interpretation Near Remission Low IMPRESSION / PLAN: Mr. Praneeth Villanueva is a 71 y.o. male with 1. Seronegative Inflammatory arthritis - Doing well on methotrexate 20 mg orally weekly with folic acid 1 mg orally daily. AM stifffness lasting 10 minutes. Improves with heat and activity. ?? 2. Facial rash - will refer to dermatology for evaluation and a skin check. 3. Encounter for long-term (current) use of medications - CBC w/diff and CMP in August 2016 within normal limits. ?? PATIENT INSTRUCTIONS: Patient Instructions 1. Continue methotrexate 20 mg orally weekly 2. Continue folic acid 1 mg orally [...] 7. Recheck blood work every 3-4 months Follow up in 6 months. There are no barriers to understanding/learning. Patient verbalizes understanding and agrees with plan. Sudhir Rosales MD 09/24/2016 Please note: Parts of this documentation was created using voice recognition software. Transcriptionerrors may be present. ella Connell - 09/24/2016 0800 EDT REVIEW OF SYSTEMS: Yes No Yes [...] Erin Barillas M D Oncology [address] [phone] (Joi diallo) 02/14/2022 Office Visit Hematology and Erin Barillas M D Oncology [address] [phone] (Joi diallo) 04/25/2022 Ancillary Procedure Cardiology 04/25/2022 Office Visit Cardiology Claire Lopez NP 130 [facility] [address] [place] [address] (Joi rk) 05/13/2022 Office Visit Rheumatology Tod Perez NP 111 [facility], [facility] [address] [place] [address] (Wo rk) Scheduled Referrals Name Type Priority Associated Diagnoses Order S chedule AMB CONS/FOLLOW UP Outpatient Referral Routine History of Or dered: DERMATOLOGY seronegative 09/24/2016 inflammatory arthritis Facial rash Taking multiple medications for chronic disease documented as of this encounter Visit Diagnoses Diagnosis History of seronegative inflammatory art hritis - Primary Facial rash Rash and other nonspecific skin eruption Taking multiple medications for chronic disease Other unknown and unspecified cause of m orbidity or mortality documented in this encounter Care Teams Drycleaner Relationship Specialty Start Date End Date Dereck Schultz MD PCP - General 10/19/08 02/12/[address] [place] [phone] documented as of this encounter
--- OUTSIDE RECORDS SUMMARY | 2021-12-21 01:23 | XMS_ITS | Encounter Summary ---
:1945 Author Organization [facility] Address [address] [place] [address] Care Team Providers Name Role Phone Dereck Schultz MD Primary Care Provider Reason for Visit Reason Onset Date Comments Medications Refill 09/17/2015 Encounter Details Date Type Department Care Team Description 09/17/2015 Refill [facility] Marie Stanofrd, [facility] Refill Rheumatology & Immunology [address]ERA [address] [place] [address] [phone] (Wo rk) Social History Tobacco Use Types [...] Take 8 Tabs by 96 Tab 0 09/1712/08/2015 mouth once a week. documented in this encounter Miscellaneous Notes Telephone Encounter - Zari Mccabe RN - 2015 1239 EDT From: Praneeth Villanueva To: Marie Stanford PA Sent: 09/17/2015 8:44 EDT Subject: Medication Renewal Request Original authorizing provider: ALMA Bills would like a refill of the following medications: methotrexate 2.5 mg tablet [ALMA Bills] Preferred pharmacy: [address] Comment: documented in this encounter Plan of Treatment Upcoming Encounters Date Type Specialty Care Team Description 12/27/2021 Office Visit Hematology and Erin Barillas M D Oncology [address] [place] [phone] (Wo rk) 02/14/2022 Office Visit Hematology and Erin Barillas M D Oncology [address] [place] [phone] (Wo rk) 04/25/2022 Ancillary Procedure Cardiology 04/25/2022 Office Visit Cardiology Claire Lopez NP [address] [phone] (Wo rk) 05/13/2022 Office Visit Rheumatology Tod Perez NP 111 [facility] 5 [place] [address] (Wo rk) documented as of this encounter Visit Diagnoses Not on filedocumented in this encounter Discontinued Medications Medication Sig Discontinue Reason Start Date End Date methotrexate 2.5 mg tablet Take 8 Tabs by Reorder 06/29/2015 2015 mouth once a week documented as of this encounter Care Teams Motion Picture Director Relationship Specialty Start Date End Date Dereck Schultz MD PCP - General 10/19/08 02/12/[address] [place] [phone] documented as of this encounter
--- OUTSIDE RECORDS SUMMARY | 2021-12-21 01:23 | XMS_ITS | Encounter Summary ---
:1945 Author Organization [facility] Address [address] [place] [address] Care Team Providers Name Role Phone Dereck Schultz MD Primary Care Provider [phone] Reason for Visit Reason Comments Back Pain Telemedicine Video Visit Joint Pain left hand pain/ feels like a shocking pain/ swelling Encounter Details Date Type Department Care Team Description 12/02/2019 Telemedicine [facility] Tod Perez In flammation around joint (Primary Dx); Rheumatology & OUTSIDE SALES REPRESENTATIVE Encounter for long-term (current) use of medications Immunology - Main [address] [place], [place] [phone] [place] [address], [place] [phone] (Wo rk) Social History Tobacco Use Types [...] Patient Instructions Patient InstructionsTod Perez APRN - 12/02/2019 11:00 EDT 1. Increase methotrexate 15mg orally weekly 2. Folic acid 1mg orally daily If oral or nasal sores, GI upset, diarrhea, feeling unwell around methotrexate day please call the clinic to increase folic acid \3. Check labs - CBC, CMP 1 month for dose increase of methotrexate Then labs CBC and CMP every 3-4 months 4. Recommend daily home PT exercises for right sided sciatica 5. If hand not tolerable can call for prednsione- we would prefer to avoid prednisone if possible asit increases your risk of infection 6. F/u 3-4 months could be by zoom documented in this encounter Ordered Prescriptions Prescription Sig Dispensed Refills Start Date End Date methotrexate 2.5 mg Take 6 Tabs by 72 Tab 1 12/02/2019 0 03/02/2020 tabletIndications: mouth once a week. Inflammation around joint, Encounter for long-term (current) use of medications documented in this encounter Progress Notes Jazmyne Welch MA - 12/02/2019 1100 EDT REVIEW OF SYSTEMS: Yes No Yes [...] no, note change(s) below and update record y Tod Perez APRN - 12/02/2019 1100 EDT Images from the original note were not included. Patient ID: Deon Villanueva is a 74 y.o. y.o. male Subjective: Chief Complaint: Back Pain; Telemedicine Video Visit; and Joint Pain (left hand pain/ feels like a shocking pain/ swelling) HPI: ?? Pertinent Rheumatological History: 1. Seronegative [...] to improvement of symptoms - Travelled to [place] including [facility]. Able to ambulate without difficulty. - [...] swelling. Was in a 5th meng in [place] at that time. new dx around 04/2019 of polycythemia: elevated RBC and hemoglobin Had repeat labs at [facility] 05/2019 PCP was suppose to set up NPV with hematology at [facility] - they have not heard from PCP or Hematology prednisone burst from PCP for hand swelling. 20mg x 7 days and 10mg x 7 days which ended today Changes since last visit TELEMEDICINE VIDEO VISIT Today's visit was provided [...] until counts are normal Will have CBC, Denies any other joint pains or swelling. [...] pain. ? Myocardial bridging Current Outpatient Medications: aspirin 81 mg EC [...] 135 05/10/2014 ?? C4 27 05/10/2014 ?? [facility]: 11/18/18: CBC with differential: CBC = [...] Status: Final result ?Visible to patient: Yes (Soniqplay Online) Next appt: 05/25/2018 at 11:40 inRheumatology (Sudhir Rosales MD) Order: [id number] ? 1yr ago ?? Pathology Report: SURGICAL PATHOLOGY REPORT Reports generated via electronic interface contain original data; however they are lacking the format of the original report. Caution should be taken when reading/interpreting unformatted reports. Name: ? DEON VILLANUEVA ? Accession #: ? [id number] ? : ? 1945 (Age: 71) ??M ?Collect Date: ? 10/23/2016 ? Location: ? [facility] ? Receive Date: ? 10/24/2016 ? Provider: SHREYA LEA MD Copy to: MINDY SZYMANSKI [facility] [facility] ? Final Pathologic Diagnosis: A. ??GASTROESOPHAGEAL JUNCITON, [...] Status: Final result ?Visible to patient: Yes (Octopusapp) Next appt: 05/25/2018 at 11:40 inRheumatology (Sudhir Rosales MD) Order: [id number] ? 1yr ago ?? Pathology Report: SURGICAL PATHOLOGY REPORT Reports generated via electronic interface contain original data; however they are lacking the format of the original report. Caution should be taken when reading/interpreting unformatted reports. Name: ? DEON VILLANUEVA ? Accession #: ? [id number] ? : ? 1945 (Age: 71) ??M ?Collect Date: ? 10/23/2016 ? Location: ? [facility] ? Receive Date: ? 10/24/2016 ? Provider: SHREYA LEA MD Copy to: MINDY SZYMANSKI [facility] ? Final Pathologic Diagnosis: A. ??GASTROESOPHAGEAL [...] x 0.1 cm). Submitted intact in B1. Dominga Blanka 10/25/2016 7:55 AM ? RAPID3 Summary Functional Status: Pain Tolerance: 8 Global Estimate: 4 Score: Interpretation: ASSESSMENT: 1.Inflammator arthritis active, weaned MTX Jun [address] Rosales as was trying to reduce his medication. Started flaring Jul 2019 with hand swelling. Was in [place] at that time. Received prednisone burst from PCP 2 weeks ago- 20mg x 7 days, then 10mg x 7 days. MTX 10mg restarted 09/23/2019, still has swelling left hand and wrist with intermittent radiculopathywill increase to 15mg po weekly. 2. Labs at [facility] in October 2019 - I have called for these will check labs 1 month for MTX increase then every 3-4 months 3. Active right sided sciatica, not sure if improved with prednisone burst from PCP, hx of left sided sciatic 1 year ago, resolved with PT. Encouraged him to restart those exercises and will mail him some additional ones. Instructed to pick which exercises work for his body. - intermittently active, saw PT for left side occasionally home PT exercises, does not think they are helping, declines PT 4. New dx of polycythemia - managed by PCP was suppose to see NPV with hematology at [facility]. pt is not yet taking hydroxyurea until discusses with hematology Will have office visit with hematology on Friday and will will have phlebotomy- plan with weekly phlebotomy until counts are normal Will have CBC, Encounter Diagnoses Name Primary? Inflammation around joint ??? Encounter for long-term (current) use of medications PLAN: 1. Increase methotrexate 15mg orally weekly 2. Folic acid 1mg orally daily If oral or nasal sores, GI upset, diarrhea, feeling unwell around methotrexate day please call the clinic to increase folic acid \3. Check labs - CBC, CMP 1 month for dose increase of methotrexate Then labs CBC and CMP every 3-4 months 4. Recommend daily home PT exercises for right sided sciatica 5. If hand not tolerable can call for prednsione- we would prefer to avoid prednisone if possible asit increases your risk of infection 6. F/u 3-4 months could be by zoom 1. Inflammation around joint methotrexate 2.5 mg tablet 2. Encounter for long-term (current) use of medications methotrexate 2.5 mg tablet No orders of the defined types were placed in this encounter. Barriers to learning identified: No Patient verbalizes understanding and agrees with plan Yes I was directly supervised by: Dr. Morocho They were present in clinic and available for consult if needed. Tod Perez APRN 12/02/2019 12:17 documented in this encounter Plan of Treatment Upcoming Encounters Date Type Specialty Care Team Description 12/27/2021 Office Visit Hematology and Erin Barillas M D Oncology [address] [place] [phone] (Joi rk) 02/14/2022 Office Visit Hematology and Erin Barillas M D Oncology [address] [place] [phone] (Joi rk) 04/25/2022 Ancillary Procedure Cardiology 04/25/2022 Office Visit Cardiology Claire Lopez NP 130 [facility] [address] [phone] (Wo rk) 05/13/2022 Office Visit Rheumatology Tod Perez NP [address] [phone] (Joi rk) documented as of this encounter Visit Diagnoses Diagnosis Inflammation around joint - Primary Enthesopathy of unspecified site Encounter for long-term (current) use of medications Encounter for long-term (current) use of other medications documented in this encounter Discontinued Medications Medication Sig Discontinue Reason Start Date End Date ranitidine (ZANTAC) 300 mg TK 1 T PO D Therapy completed 0 12/02/2019 tablet methotrexate 2.5 mg Take 4 Tabs by Reorder 09/23/20192019 tabletIndications: mouth once a week. Inflammation around joint, Encounter for long-term (current) use of medications documented as of this encounter Care Teams Biomedical Photographer Relationship Specialty Start Date End Date Dereck Schultz MD PCP - General 04/07/19 04/04/[address] [place] [phone] documented as of this encounter
--- OUTSIDE RECORDS SUMMARY | 2021-12-21 01:23 | XMS_ITS | Encounter Summary ---
:1945 Author Organization [facility] Address [address] [place] [address] Care Team Providers Name Role Phone Dereck Schultz MD Primary Care Provider [phone] Reason for Visit (Routine) - Authorization Not Required Specialty Diagnoses / Procedures Referred By Contact Refer red To Contact Diagnoses Pacemaker Claire Lopez NP Procedures CARDIAC IMPLANT CHECK - IN CLINIC [address] [facility] [address] [place] [address] Referral ID Status Reason Start Expiration Visits Visits Date Date Requested Authorized [id number] Authorization Not 1 1 Required 9 Encounter Details Date Type Department Care Team Description 05/11/2019 Ancillary Procedure [facility] [address] [place] [address] Social History Tobacco Use Types Packs/Day [...] and Erin Barillas M D Oncology [address] [address] (Wo rk) 02/14/2022 Office Visit Hematology and Erin Barillas M D Oncology [address] [place] [phone] (Wo rk) 04/25/2022 Ancillary Procedure Cardiology 04/25/2022 Office Visit Cardiology Claire Lopez NP 130 [facility] [address] [address] (Wo rk) 05/13/2022 Office Visit Rheumatology Tod Perez NP 111 [facility] 5 [place] [address] (Wo rk) documented as of this encounter Procedures Procedure Name Priority Date/Time Associated Diagnosis Comme nts CARDIAC IMPLANT Routine 05/11/2019 15:41 Pacemaker Results for this CHECK - IN CLINIC EST procedure are in the results section. documented in this encounter Results CARDIAC IMPLANT CHECK - IN CLINIC - PACEMAKER (05/11/2019 15:41 EST) Specimen Narrative DEVICECHECK - 05/11/2019 15:42 EST This result has an attachment that is no t available. Refer to Office note performed same day for full details. Procedure Note Claire Lopez APRN - 05/11/2019 Refer to Office note performed same day for full details. Performing Organization Address City/State/ZIP Code Phon e Number DEVICECHECK documented in this encounter Visit Diagnoses Diagnosis Pacemaker Cardiac pacemaker in situ documented in this encounter Care Teams Housing Management Representative Relationship Specialty Start Date End Date Dereck Schultz MD PCP - General 04/07/19 04/04/[address] [place] [address] documented as of this encounter
--- OUTSIDE RECORDS SUMMARY | 2021-12-21 01:23 | XMS_ITS | Encounter Summary ---
:1945 Author Organization [facility] Address [address] [place] [address] Care Team Providers Name Role Phone Dereck Schultz MD Primary Care Provider [phone] Reason for Visit Reason Onset Date Comments Coordination Of Care 11/30/2019 Encounter Details Date Type Department Care Team Description 11/30/2019 Telephone [facility] Chikis Ji [facility] [place] Hematology & Oncology - Main Chemult [address] [place], [place] [phone] Social History Tobacco Use Types Packs/Day Years [...] Telephone Encounter - Chikis Ji RN - 11/30/2019 1309 EDT Received the fax number for [facility] lab. Faxed standing CBCD/CMP lab orders to [phone]. elephone Encounter - Chikis Ji RN - 11/30/2019 1047 EDT PAC - When [facility] calls back, please page [phone] or call [phone], thank you Per Dr. Barillas, Praneeth will need weekly therapeutic phlebotomies for now until Hct <45, and he will need CBCD/CMP done prior to each phlebotomy. Praneeth is scheduled for initial TP on [facility] 4 on Fri12/06/19 at 1245. Praneeth will get his CBCD/CMP labs done Fri12/06/19 around 0900. [facility] 4 confirmed future weekly therapeutic phlebotomy appts for: 12/15/19, 12/21/19, 12/28/19, 01/04/20, 01/11/20. Given the fact that Praneeth lives in [facility], he prefers to get pre-TP labs done at [facility] the day prior to future TP. I called Praneeth and reviewed his upcoming TP appts/needing labs done day prior - he verbalized understanding but asked that I call his Augustina as she usually handles his appts. I then called Augustina and reviewed his upcoming TP appts and needing labs done the day prior. Augustina isagreeable with the plan and said she will check the appointments in [facility] and Praneeth will get futurelabs done at [facility]. Augustina knows the lab is open Mon-Fri 7 am to 5 pm and they only see patients via appointments. I called [facility] lab to clarify the number which I should route standing CBCD/CMP orders - no answer so I left a voicemail requesting a call back. Will route lab orders once [facility] lab calls back. documented in this encounter Plan of Treatment Upcoming Encounters Date Type Specialty Care Team Description 12/27/2021 Office Visit Hematology and Erin Barillas M D Oncology [address] [place] [phone] (Wo rk) 02/14/2022 Office Visit Hematology and Erin Barillas M D Oncology [address] [place] [phone] (Wo rk) 04/25/2022 Ancillary Procedure Cardiology 04/25/2022 Office Visit Cardiology Claire Lopez , FESTUS 130 [facility] [address] [phone] (Wo rk) 05/13/2022 Office Visit Rheumatology Tod Perez NP 111 [facility] 5 [place] [address] (Wo rk) documented as of this encounter Visit Diagnoses Diagnosis Polycythemia vera (HCC) - Primary documented in this encounter Care Teams Engine Service Repairer Relationship Specialty Start Date End Date Dereck Schultz MD PCP - General 04/07/19 04/04/[address] [place] [phone] documented as of this encounter
--- OUTSIDE RECORDS SUMMARY | 2021-12-21 01:23 | XMS_ITS | Encounter Summary ---
:1945 Author Organization [facility] Address [address] [place] [address] Care Team Providers Name Role Phone CesarLawanda song [facility] Primary Care Provider [phone] Reason for Visit Reason Onset Date Comments Medications Refill 02/24/2018 Encounter Details Date Type Department Care Team Description 02/24/2018 Refill [facility] Sudhir Rosales MD Medications Refill Rheumatology & Immunology [address] [place], [place] [address] [place] [address] [phone] (Wo rk) Social History Tobacco Use [...] Tab by mouth 90 Tab 1 0 02/24/2018 09/06/2018 tablet daily. documented in this encounter Miscellaneous Notes Telephone Encounter - Layne Hatfield - 02/24/2018 1046 EDT Medication(s) Requested Folic Acid 1 mg tablet [facility] [place] [id number] Next Visit Date 05/25/2018 Out of Medication? No Layne Hatfield 02/24/2018 10:48 documented in this encounter Plan of Treatment Upcoming Encounters Date Type Specialty Care Team Description 12/27/2021 Office Visit Hematology and Erin Barillas M D Oncology [address] [address] (Joi diallo) 02/14/2022 Office Visit Hematology and Erin Barillas M D Oncology [address] [address] (Wo rk) 04/25/2022 Ancillary Procedure Cardiology 04/25/2022 Office Visit Cardiology Claire Lopez NP 130 [facility] [address] [place] [address] (Wo rk) 05/13/2022 Office Visit Rheumatology Tod Perez NP 111 [facility] 5 [place] [address] (Wo rk) documented as of this encounter Visit Diagnoses Not on filedocumented in this encounter Discontinued Medications Medication Sig Discontinue Reason Start Date End Date folic acid (FOLVITE) 1 mg Take 1 Tab by mouth Reorder 09/05/19 18 02/24/2018 tablet daily. documented as of this encounter Care Teams Facing Baster Relationship Specialty Start Date End Date Lawanda Teran, INSTALLATION MANAGER- PCP - General 11/24/17 04/06/19 [address] [place] [address] documented as of this encounter
--- OUTSIDE RECORDS SUMMARY | 2021-12-21 01:23 | XMS_ITS | Encounter Summary ---
:1945 Author Organization [facility] Address [address] [place] [address] Care Team Providers Name Role Phone CesarLawanda song CHIEF MARKETING OFFICER- Primary Care Provider [phone] Reason for Visit Reason Comments Joint Pain neck and shoulders Medications Refill Labs Only Encounter Details Date Type Department Care Team Description 12/07/2018 Office Visit [facility] Sudhir Rosales MD History of seronegative inflammatory art hritis (Primary Dx); Rheumatology & [address] [place] [address] Encounter f or long-term (current) use of medications; Immunology - [facility] Arthritis [address] [place], [place] [address] [place] [phone] (Wo rk) Social History Tobacco Use Types [...] Sign Reading Time Taken Comments Blood Pressure 158/78 12/07/2018 1452 EDT Pulse 64 12/07/2018 1452 EDT Temperature - - Respiratory Rate - - Oxygen Saturation - - Inhaled Oxygen Concentration - - Weight 101.6 kg (224 lb) 12/07/2018 1452 EDT Height 17.8 cm (7) 12/07/2018 1452 EDT Body Mass Index 3214.07 12/07/2018 1452 EDT documented in this encounter Functional Status [...] musculoskeletal system and connective tissue-Z87.39[ICD-10-CM] Z79.899 Other correction (current) drug t herapy-Z79.899[ICD-10-CM] M19.90 Unspecified osteoarthritis, unspe cified site-M19.90[ICD-10-CM] documented in this encounter Patient Instructions Patient InstructionsSudhir Rosales MD, MD - 12/07/2018 14:40 EDT 1. Continue methotrexate 10 mg (4 tab) orally weekly. 2. Continue folic acid 1 mg orally daily 3. If symptoms of joint pain/swelling worsen, you can increase methotrexate back to 12.5 mg orally weekly. 4. Recheck blood work every 3 months 5. Follow up in 6-7 months documented in this encounter Ordered Prescriptions Prescription Sig Dispensed Refills Start Date End Date methotrexate 2.5 mg tablet Take 4 Tabs by 48 Tab 1 12/0709/23/2019 mouth once a week. documented in this encounter Discharge Disposition Disposition Code Departure Means Destination Auto Discharge documented in this encounter Progress Notes Sudhir Rosales MD, MD - 12/07/2018 1440 EDT DIVISION OF RHEUMATOLOGY AND CLINICAL IMMUNOLOGY PROGRESS / FOLLOW-UP VISIT NOTE Date of Service: 12/07/2018 Pertinent Rheumatological History: 1. Seronegative inflammatory arthritis [...] with ??? Joint Pain neck and shoulders ??? Medications Refill ??? Labs Only SUBJECTIVE: Mr. Deon Huston is a 73 y.o. male with history of seronegative inflammatory polyarthritis and degenerative disc disease who presents today for a follow-up visit. he was last seen in clinic on 07/07/2018. Since his last visit: - 07/07/2018 - [...] to improvement of symptoms - Travelled to [place] including [facility]. Able to ambulate without difficulty. - AM stiffness lasting approximately 30 minutes involving the hands and neck - Ibuprofen 800 mg orally daily as needed. Has not needed this in recent months. REVIEW OF SYSTEMS: Review of systems as documented by Nurses/MA's during this visit and reviewed by me. MEDICATIONS: Current Outpatient Medications: finasteride (PROSCAR) 5 mg tablet Take 5 mg by mouth daily. folic acid (FOLVITE) 1 mg tablet Take 1 tablet by mouth daily. ibuprofen (MOTRIN) 200 mg tablet Take 200 mg by mouth every 6 hours as needed for Pain. ivermectin 1 % cream Apply topically to affected area daily. (Patient not taking: Reported on 12/07/2018) LACTOBACILLUS ACIDOPHILUS (PROBIOTIC ORAL) Take by mouth daily methotrexate 2.5 mg tablet Take 6 Tabs by mouth once a week. (Patient taking differently: Take 10 mgby mouth once a week. ) metoprolol (LOPRESSOR) 25 mg tablet Take 25 mg by mouth daily. omeprazole (PRILOSEC) 20 mg capsule Take 40 mg by mouth daily. RANITIDINE HCL ORAL Take 300 mg by mouth daily. simvastatin (ZOCOR) 40 mg tablet Take 40 mg by mouth every evening. triamcinolone (KENALOG) 0.1 % cream Apply topically daily. OBJECTIVE: Blood pressure (!) 158/78, pulse 64, height (!) 17.8 cm (7), weight (!) 101.6 kg (224 lb). General: No acute distress. Alert, fully [...] present. No changes since last visit. Hips/Knee: Left knee ecchymoses. Mild crepitance bilaterally. No other significant tenderness, [...] 05/10/2014 C3 135 05/10/2014 C4 27 05/10/2014 [facility]: 11/18/18: CBC with differential: CBC [...] Status: Final result ?Visible to patient: Yes (Aprilage) Next appt: 05/25/2018 at 11:40 inRheumatology (Sudhir Rosales MD) Order: [id number] ?? 1yr ago Pathology Report: SURGICAL PATHOLOGY REPORT Reports generated via electronic interface contain original data; however they are lacking the format of the original report. Caution should be taken when reading/interpreting unformatted reports. Name: ? DEON HUSTON ? Accession #: ? [id number] ? : ? 1945 (Age: 71) ??M ?Collect Date: ? 10/23/2016 ? Location: ? [facility] ? Receive Date: ? 10/24/2016 ? Provider: SHREYA LEA MD Copy to: MINDY Jeong STEPHON CHIEF MARKETING OFFICER ? Final Pathologic Diagnosis: A. ??GASTROESOPHAGEAL JUNCITON, [...] Status: Final result ?Visible to patient: Yes ([employer]) Next appt: 05/25/2018 at 11:40 inRheumatology (Sudhir Rosales MD) Order: [id number] ?? 1yr ago Pathology Report: SURGICAL PATHOLOGY REPORT Reports generated via electronic interface contain original data; however they are lacking the format of the original report. Caution should be taken when reading/interpreting unformatted reports. Name: ? DEON HUSTON ? Accession #: ? [id number] ? : ? 1945 (Age: 71) ??M ?Collect Date: ? 10/23/2016 ? Location: ? [facility] ? Receive Date: ? 10/24/2016 ? Provider: SHREYA LEA MD Copy to: MINDY [facility]SKI [facility] ? Final Pathologic Diagnosis: A. ??GASTROESOPHAGEAL [...] RAPID3 Summary Functional Status: 0 Pain Tolerance: 4 Global Estimate: 2 Score: 6 Interpretation: Low RAPID3 SCORES AND INTERPRETATION 12/27/2015 09/24/2016 05/28/2017 11/24/2017 07/07/2018 12/07/2018 Functional Status 0 0.3 0 0.3 0 0 Pain Tolerance 0 - No Pain 3 2 1 2 4 Global Estimate 0 - Very Well 2.5 1 1 1 2 RAPID3 0 5.8 3 2.3 3 6 Interpretation Near Remission Low Near Remission Near Remission Near Remission Low IMPRESSION / PLAN: Mr. Deon Huston is a 73 y.o. male with 1. Seronegative Inflammatory arthritis - Decreased methotrexate by 2.5 mg every 4 weeks until 10 mg orally weekly. Presents today on 10 mg orally weekly. A mild flare initially when reduced to 10 mg weekly then increased to 12.5 mg for 2-3 weeks with improvement of symptoms. [place] well then decreased back to 10 mg weekly. Continue methotrexate 10 mg orally weekly. If arthritis symptoms return or worsen, he was instructed to increase back to the dose where he feltmost comfortable. Monitor CBC w/diff and CMP every 3-4 months. 2. Low back pain with LLE radiculopathy - denied trauama to lower back. Described pain and LLE paresthesia with spinal extension, ambulating up hill and laying supine. Able to participate in mowing thelawn and weed whacking without difficulty. Ibuprofen 800 [...] within normal limits. ?? PATIENT INSTRUCTIONS: 1. Continue methotrexate 10 mg (4 tab) orally weekly. 2. Continue folic acid 1 mg orally daily 3. If symptoms of joint pain/swelling worsen, you can increase methotrexate back to 12.5 mg orally weekly. 4. Recheck blood work every 3 months 5. Follow up in 6-7 months There are no barriers to understanding/learning. Patient verbalizes understanding and agrees with plan. Sudhir Rosales MD 12/07/2018 Please note: Parts of this documentation was created using voice recognition software. Transcriptionerrors may be present. Jazmyne Welch - 12/07/2018 1440 EDT REVIEW OF SYSTEMS: Yes No Yes No Fever X Joint pain x Weight gain or loss pounds (lbs) Duration of AM joint stiffness min Eye pain or dryness X Numbness/tingling [...] and Erin Barillas M D Oncology [address] [place] [address] 2 [place] [address] (Wo rk) 02/14/2022 Office Visit Hematology and Erin Barillas M D Oncology 111 [facility] 2 [place] [address] (Wo rk) 04/25/2022 Ancillary Procedure Cardiology 04/25/2022 Office Visit Cardiology Claire Lopez NP 130 [facility] 21 [place] [address] (Wo rk) 05/13/2022 Office Visit Rheumatology Tod Perez NP 111 [facility], [facility] 5 [place] [address] (Wo rk) documented as of this encounter Visit Diagnoses Diagnosis History of seronegative inflammatory art hritis - Primary Encounter for long-term (current) use of medications Encounter for long-term (current) use of other medications Arthritis Arthropathy, unspecified, site unspecifi ed documented in this encounter Discontinued Medications Medication Sig Discontinue Reason Start Date End Date aspirin chewable 81 mg Take 81 mg by 11/15 tablet mouth daily. methotrexate 2.5 mg tablet Take 6 Tabs by Reorder 07/07/2018 12/07/2018 mouth once a week. documented as of this encounter Care Teams Java Web User Interface Developer Relationship Specialty Start Date End Date Lawanda Teran FNP- PCP - General 11/24/17 04/06/[address] [place] [address] documented as of this encounter
--- OUTSIDE RECORDS SUMMARY | 2021-12-21 01:23 | XMS_ITS | Encounter Summary ---
:1945 Author Organization [facility] Address [address] [place] [address] Care Team Providers Name Role Phone Dereck Schultz MD Primary Care Provider [phone] Reason for Visit Reason Onset Date Comments Provider Referred 09/24/2016 Encounter Details Date Type Department Care Team Description 09/24/2016 Telephone [facility] Tommy Mace MD Provider Referred Dermatology - Main [address] [place] [address] [address] [place] [address] (Wo rk) Social History Tobacco Use Types [...] this encounter Miscellaneous Notes Telephone Encounter - Loida Green RN - 10/02/2016 1534 EDT Spoke to patient Rash Forehead and cheeks Present x 10 years - not worsening Little white head pimples Occasionally itches, but not very often Picks at it, develops a scab, bleeds when he picks scab off Denies pain Uses dove soap to wash face Has not been prescribed any treatment Handed phone to so she could coordinate appointment NPV 02/14/17 at 9:[address] bunch, EP3 LOIDA GREEN RN 10/02/2016 15:41 elephone Encounter - Cami Cooper - 10/02/2016 1451 EDT The patient's stated she is returning a call. Please call the patient back. elephone Encounter - Cami Cooper - 09/24/2016 0913 EDT Per solar sales manager: Referring Provider: Sudhir Rosales MD Reason for referral: Facial rash and skin check. History of inflammatory arthritis on methotrexate Notes are in Prism documented in this encounter Plan of Treatment Upcoming Encounters Date Type Specialty Care Team Description 12/27/2021 Office Visit Hematology and Erin Barillas M D Oncology [address] [address] (Joi diallo) 02/14/2022 Office Visit Hematology and Erin Barillas M D Oncology [address] [address] (Wo rk) 04/25/2022 Ancillary Procedure Cardiology 04/25/2022 Office Visit Cardiology Claire Lopez NP 130 [facility] [address] [place] [phone] (Wo rk) 05/13/2022 Office Visit Rheumatology Tod Perez NP 111 [facility], [facility] 5 [place] [address] (Wo rk) documented as of this encounter Visit Diagnoses Not on filedocumented in this encounter Care Teams Record Changer Tester Relationship Specialty Start Date End Date Dereck Schultz MD PCP - General 10/19/08 02/12/17 [address] [place] [address] documented as of this encounter
--- OUTSIDE RECORDS SUMMARY | 2021-12-21 01:23 | XMS_ITS | Encounter Summary ---
:1945 Author Organization [facility] Address [address] [place] [address] Care Team Providers Name Role Phone Dereck Schultz MD Primary Care Provider [phone] Reason for Visit Reason Onset Date Comments Joint Swelling 09/10/2019 Hands Hand Pain 09/10/2019 Encounter Details Date Type Department Care Team Description 09/10/2019 Telephone [facility] Sudhir Rosales MD Joint Swelling Rheumatology & [address] [place] [address] (Hands); [place] [facility] Pain Immunology - [facility], [address] [place], [place] [address] [place] [address] [phone] (Wo rk) Social History Tobacco Use [...] this encounter Miscellaneous Notes Telephone Encounter - Vera Silva RN - 09/10/2019 1306 EDT Spoke with Ching from PCP office. They gave pt a new burst of prednisone to take for 2 weeks until FURwith FESTUS Perez. The burst is 20 mg for one week then 10 for one week. Telephone Encounter - Yessica Tyson - 09/10/2019 1120 EDT Patient had hands swelling so PCP got him Prednisone on 08/24/19. He still is having pain but swelling has gone down. This was all going on while Patient was having wige drive across country back to [place]. Please call Ching for the next steps. documented in this encounter Plan of Treatment Upcoming Encounters Date Type Specialty Care Team Description 12/27/2021 Office Visit Hematology and Erin Barillas M D Oncology [address] [place] [address] [address] (Joi diallo) 02/14/2022 Office Visit Hematology and Erin Barillas M D Oncology [address] [place] [address] [phone] (Joi diallo) 04/25/2022 Ancillary Procedure Cardiology 04/25/2022 Office Visit Cardiology Claire Lopez NP [address] [facility] [address] [place] [address] (Wo rk) 05/13/2022 Office Visit Rheumatology Tod Perez NP 111 [facility], [facility] 5 [place] [phone] (Wo rk) documented as of this encounter Visit Diagnoses Not on filedocumented in this encounter Care Teams Microfilm Processor Relationship Specialty Start Date End Date Dereck Schultz MD PCP - General 04/07/19 04/04/20 [address] [place] [address] documented as of this encounter
--- OUTSIDE RECORDS SUMMARY | 2021-12-21 01:23 | XMS_ITS | Encounter Summary ---
:1945 Author Organization [facility] Address [address] [place] [address] Care Team Providers Name Role Phone Dereck Schultz MD Primary Care Provider [phone] Encounter Details Date Type Department Care Team Description 10/23/2016 Results Only [facility]- Shreya Pitt, [address] [place] [address] [address] [place], [place] [id number] (Wo rk) Social History Tobacco Use Types [...] and Erin Barillas M D Oncology [address] [address] (Wo rk) 02/14/2022 Office Visit Hematology and Erin Barillas M D Oncology [address] [address] (Wo rk) 04/25/2022 Ancillary Procedure Cardiology 04/25/2022 Office Visit Cardiology Claire Lopez , FESTUS 130 [facility] [address] [address] (Wo rk) 05/13/2022 Office Visit Rheumatology Tod Perez NP [address] [address] (Wo rk) documented as of this encounter Procedures Procedure Name Priority Date/Time Associated Diagnosis Comme [facility] SURGICAL PATHOLOGY Routine 10/23/2016 18:29 Resul ts for this EDT procedure are i n the results section. documented in this encounter Results SURGICAL PATHOLOGY (10/23/2016 18:29 EDT) Pathology Report: SURGICAL PATHOLOGY REPORT [facility] Reports generated via electronic interface contain halle ginal data; LABORATORY however they are lacking the format of the original re port. SERVICES Caution should be taken when reading/interpreting unfo rmatted reports. Name: ? DEON VILLANUEVA ? Accession #: ? [id number] ? : ? 1945 (Age: 71 ) ??M ? Collect Date: ? 10/23/2016 ? Location: ? [facility] ? Receive Date: ? 10/25/19 17 ? Provider: SHREYA LEA MD Copy to: MINDY SZYMANSKI CLAMP OPERATOR ? Final Pathologic Diagnosis: A. ??GASTROESOPHAGEAL JUNCITON, BIOPSY: - Squamocolumnar junctional mucosa with reflux esophag itis. - Negative for intestinal metaplasia; Negative for dys plasia. B. ??STOMACH, ANTRUM, BIOPSY: - Fundic gland polyp. - Negative for histologic features of Helicobacter pyl halle. Document reviewed and electronically signed by: JACOBO RODRIGUES MD Report ??Date: 10/25/2016 16:35 By the signature above, the attending physician certif ies that he/she has personally conducted a gross and/or microscopic examin ation of the described specimens and rendered or confirmed the above diagnosi s. Specimen(s) Received: A. ??GE junction bx B. ??Antral bx for H. pylori Clinical History: Hx of Clark's esophagus Gross Description: A. ?Received in formalin labelled with proper p atient identification (initials C, J) and #1 GE junction bx are two light martínez tissues (0.2 x 0.2 x 0.1 cm and 0.5 x 0.2 x 0.1 cm). Entirely submitted in A1. B. ?Received in formalin labelled with proper p atient identification (initials C, J) and #2 antr al bx for H. pylori is a single light yellow-brown tissue fragment (0.4 x 0.2 x 0.1 cm). Submitted intact in B1. Ann Moscoso 10/25/2016 7:55 AM End of Report Specimen Performing Organization Address City/State/ZIP Code Phon e Number [facility] [address] [place] [address] SERVICES documented in this encounter Visit Diagnoses Not on filedocumented in this encounter Care Teams Deck Mate Relationship Specialty Start Date End Date Dereck Schultz MD PCP - General 10/19/08 02/12/[address] [place] [phone] documented as of this encounter
--- OUTSIDE RECORDS SUMMARY | 2021-12-21 01:23 | XMS_ITS | Encounter Summary ---
:1945 Author Organization [facility] Address [address] [place] [address] Care Team Providers Name Role Phone Dereck Schultz MD Primary Care Provider [phone] Reason for Referral (Routine) - Authorization Not Required Specialty Diagnoses / Procedures Referred By Contact Refer red To Contact Diagnoses Pacemaker Claire Lopez NP Procedures CARDIAC IMPLANT CHECK - IN CLINIC [address] [place] [address] [address] [place] [address] Referral ID Status Reason Start Expiration Visits Visits Date Date Requested Authorized [id number] Authorization Not 1 1 Required 9 (Routine) - Authorization Not Required Specialty Diagnoses / Procedures Referred By Contact Refer red To Contact Diagnoses Pacemaker Claire Lopez NP Procedures [facility] [address] [facility] [address] [place] [address] Referral ID Status Reason Start Expiration Visits Visits Date Date Requested Authorized [id number] Authorization Not 1 1 Required 9 Reason for Visit Reason Comments Pacemaker/Device Check [employer] Cardiology (Routine) - Specialty Report Received Specialty Diagnoses / Procedures Referred By Contact Refer red To Contact Diagnoses Encounter for adjustment and management of other part of cardiac pacemaker Andres Chawla MD Procedures CARDIAC IMPLANT CHECK - IN CLINIC [address] [facility] [address] [place] [address] Referral ID Status Reason Start Date Expiration Date Visits V varghese Requested Authorized [id number] Specialty 04/04/2019 1 1 Report Received Encounter Details Date Type Department Care Team Description 05/11/2019 Office Visit [facility] Jessica, Pacemaker (Primary Dx); - [facility] Cardiology FESTUS Rangel Sick sinus syndrome ([facility]-CMS); Clinic [address] [facility] Essential hypertension; [address] [facility] [address] [place] [address] [place], [place] [phone] Social History Tobacco Use Types Packs/Day [...] Sign Reading Time Taken Comments Blood Pressure 150/80 05/11/2019 1458 EST Pulse 66 05/11/2019 1458 EST Temperature - - Respiratory Rate - - Oxygen Saturation 94% 05/11/2019 1458 EST Inhaled Oxygen Concentration - - Weight 104.3 kg (230 lb) 05/11/2019 1458 EST Height 180.3 cm (5' 11) 05/11/2019 1458 EST Body Mass Index 32.08 05/11/2019 1458 EST documented in this encounter [...] encounter Progress Notes Claire Lopez, BATSHEVA - 05/11/2019 1515 EST Cardiology Clinic Note 05/11/19 15:30 Presenting complaint: Pacemaker/Device Check ([employer]) CHASITY Dacosta is a pleasant 73 yo with multiple medical co-morbidities including inflammatory polyarthropathytreated with methotrexate, hx benign neoplasm of the colon, GERD, BPH, stage III CKD, HLD, NATALIE, HTN,sinus node dysfunction s/p single chamber pacemaker who returns to the office for routine device interrogation. Last seen in January 2019 at [facility] device clinic where he complained of dizziness and pre-syncope prompting a holter and ECHO. Holter monitor 01/2019 showed no evidence of arrhythmia or high degree AVB that would contribute to symptoms. He also had an ECHO at that time which showed normal LV function and no significant structural or valvular disease to explain his dizziness/pre-syncope. Todayhe reports feeling well from a cardiac standpoint, however he experiences daily headaches and dizziness that does not seem to be related to position changes. Has a visit scheduled with his PCP next week and he is hoping to figure out what is going on. Systems review A 10 point review of [...] ??? HERNIA REPAIR Medications Current Outpatient Medications: finasteride (PROSCAR) 5 mg tablet folic acid (FOLVITE) 1 mg tablet ibuprofen (MOTRIN) 200 mg tablet methotrexate 2.5 mg tablet metoprolol (LOPRESSOR) 25 mg tablet metoprolol XL (TOPROL-XL) 25 mg tablet omeprazole (PRILOSEC) 40 mg capsule RANITIDINE HCL ORAL simvastatin (ZOCOR) 40 mg [...] Last attempt to quit: 09/15/1980 Years since quittin.6 ??? 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 General - A/Ox3, no acute distress [...] intact Peripheral neurology - no focal deficits [facility] Cardiology Device Visit Superintendent System Operation: [employer] Device Type: Single chamber pacemaker Service: Office Visit Implant Date: 04/09/2012 Indication: Bradycardia Battery Longevity: 15 months (< 2-27 months) Underlying rhythm: bradycardia, SND Mode: AAIR URL/LRL: 130/60 bpm Atrial Paced: 91.5% Lead Impedance, threshold, and sensing testing all [...] ADEBAYO. Judging from battery longevity at last visit3 months ago we should be ok to follow up in 6 months. - CARDIAC IMPLANT CHECK - IN CLINIC 2. Sick sinus syndrome (HCC-CMS) S/p single chamber pacemaker. 3. Essential hypertension Slightly hypertensive today in the office. I am hesitant to start an anti- hypertensive due to ongoing dizzy spells. He has follow up with his PCP next week so I will attempt to contact her to better coordinate care. I think he needs to have a sleep study to evaluate for NATALIE. 4. Hypercholesteremia Continue statin 5. Dizziness Holter monitor and ECHO 01/2019 fail to suggest any arrhythmia, structural or valvular disease to explain his symptoms. Recommended he discuss further work up with his PCP. Claire Lopez NP [facility] Cardiology documented in this encounter Plan of Treatment Upcoming Encounters Date Type Specialty Care Team Description 12/27/2021 Office Visit Hematology and Erin Barillas M D Oncology 111 [facility] [address] [place] [address] (Wo rk) 02/14/2022 Office Visit Hematology and Erin Barillas M D Oncology 111 [facility] [address] [place] [address] (Wo rk) 04/25/2022 Ancillary Procedure Cardiology 04/25/2022 Office Visit Cardiology Claire Lopez NP 130 [facility] [address] [place] [address] (Wo rk) 05/13/2022 Office Visit Rheumatology Tod Perez NP 111 [facility], [facility] [address] [place] [address] (Wo rk) documented as of [...] Address City/State/ZIP Code Phon e Number DEVICECHECK CARDIAC IMPLANT CHECK - IN CLINIC - PACEMAKER SINGLE CHAMBER W/ PROG (03/02/2021 16:26 EDT) Specimen Narrative DEVICECHECK - 03/02/2021 16:26 EDT Refer to same day OV for full details Procedure Note Claire Lopez APRN - 03/02/2021 Refer to same day OV for full details Performing Organization Address City/State/ZIP Code Phon e Number DEVICECHECK CARDIAC IMPLANT CHECK - IN CLINIC - PACEMAKER SINGLE CHAMBER W/ PROG (11/22/2019 11:05 EDT) Specimen Narrative DEVICECHECK - 11/22/2019 11:05 EDT Refer to same day OV for full details Performing Organization Address City/State/ZIP Code Phon e Number DEVICECHECK CARDIAC IMPLANT CHECK - IN CLINIC - [...] hypertension Unspecified essential hypertension Hypercholesteremia Pure hypercholesterolemia Pacemaker Cardiac pacemaker in situ Pacemaker Cardiac pacemaker in situ Pacemaker Cardiac pacemaker in situ Pacemaker Cardiac pacemaker in situ documented in this encounter Discontinued Medications Medication Sig Discontinue Reason Start Date End Date triamcinolone (KENALOG) Apply topically Patient Stopped 05/10/2019 0.1 % creamIndications: daily. Taking History of seronegative inflammatory arthritis, Taking multiple medications for chronic disease, Skin rash LACTOBACILLUS Take by mouth daily Patient Stopped 04/17 ACIDOPHILUS (PROBIOTIC Taking ORAL) ivermectin 1 % cream Apply topically to Patient Stopped 02/14/2017 05/10/2019 affected area Taking daily. omeprazole (PRILOSEC) Take 40 mg by mouth Duplicate order 05/11/2019 20 mg capsule daily. documented as of this encounter Historical Medications This list may reflect changes made after this encounter. Medication Sig Dispensed Refills Start Date End Date omeprazole (PRILOSEC) 40 mg capsule 0 04/28/2019 metoprolol XL (TOPROL-XL) 25 mg tablet 0 05/02/2019 09/23/2019 added in this encounter Orders Implantable Cardiac Device Count Last Ordered Date Fir st Ordered Date CARDIAC IMPLANT CHECK - IN CLINIC 3 07/25/2020 05/11/2019 documented in this encounter Care Teams Decontaminator Relationship Specialty Start Date End Date Dereck Schultz MD PCP - General 04/07/19 04/04/[address] [place] [phone] documented as of this encounter
--- OUTSIDE RECORDS SUMMARY | 2021-12-21 01:24 | XMS_ITS | Encounter Summary ---
:1945 Author Organization [facility] Address [address] [place] [address] Care Team Providers Name Role Phone Dereck Schultz MD Primary Care Provider [phone] Reason for Visit Reason Comments Other Encounter Details Date Type Department Care Team Description 03/17/2014 Refill [facility] Rheumatology & YueMajor MD Other Immunology - Main [facility] [address] [place] [address] Social History Tobacco Use Types [...] documented as of this encounter Functional Status Cognitive Status Response Date of Assessment Because of a physical, mental, or emotional condition, do Ye s 04/08/2012 you have serious difficulty concentrating, remembering, or making decisions? (5 years old or older) documented as of this encounter Ordered Prescriptions Prescription Sig Dispensed Refills Start Date End Date gabapentin (NEURONTIN) 100 Take 2 Caps by 180 Cap 5 03/1806/23/2014 mg capsule mouth 3 times daily. documented in this encounter Miscellaneous Notes Telephone Encounter - Zari Mccabe RN - 03/18/2014 0906 EDT Spoke with pt's . She states that the pt is taking 200mg TID and doing well. I will refill the Gabapentin. documented in this encounter Plan of Treatment Upcoming Encounters Date Type Specialty Care Team Description 12/27/2021 Office Visit Hematology and Erin Barillas M D Oncology 111 [facility] [address] [place] [address] (Wo rk) 02/14/2022 Office Visit Hematology and Erin Barillas M D Oncology [address] [place] [phone] (Wo rk) 04/25/2022 Ancillary Procedure Cardiology 04/25/2022 Office Visit Cardiology Claire Loepz NP 130 [facility] [address] [place] [phone] (Wo rk) 05/13/2022 Office Visit Rheumatology Tod Perez NP 111 [facility], [facility] [address] [place] [address] (Wo rk) documented as of this encounter Visit Diagnoses Not on filedocumented in this encounter Discontinued Medications Medication Sig Discontinue Reason Start Date End Date gabapentin (NEURONTIN) 1 tablet at bedtime Reorder 01/03/2014 03/17/2014 100 mg capsule for 4 days, then 1 bid for 4 days then 1 tid; after 2 weeks increase to 2 tid. documented as of this encounter Care Teams Flag Football Coach Relationship Specialty Start Date End Date Dereck Schultz MD PCP - General 10/19/08 02/12/17 [facility] [place] [phone] documented as of this encounter
--- OUTSIDE RECORDS SUMMARY | 2021-12-21 01:24 | XMS_ITS | Encounter Summary ---
:1945 Author Organization [facility] Address [address] [place] [address] Care Team Providers Name Role Phone Dereck Schultz MD Primary Care Provider [phone] Encounter Details Date Type Department Care Team Description 05/10/2014 Phlebotomy Only [facility] Python Django Developer, Darrick herrera arthritis; - [facility] Outpatient Pain in joint, multiple site s [address] [place] [address] Social History Tobacco Use Types Packs/Day Years [...] or older) documented as of this encounter Plan of Treatment Upcoming Encounters Date Type Specialty Care Team Description 12/27/2021 Office Visit Hematology and Erin Barillas M D Oncology [address] [facility], [address] [place] [address] (Wo rk) 02/14/2022 Office Visit Hematology and Erin Barillas M D Oncology 111 [facility], [facility] [address] [place] [address] (Wo rk) 04/25/2022 Ancillary Procedure Cardiology 04/25/2022 Office Visit Cardiology Claire Lopez NP [address] [facility] [address] [place] [address] (Wo rk) 05/13/2022 Office Visit Rheumatology Tod Perez NP 111 [facility], [facility] [address] [place] [address] (Wo rk) documented as of this encounter Procedures Procedure Name Priority Date/Time Associated Diagnosis Comme nts SSB ANTIBODIES BY Routine 05/10/2014 15:37 Inflammatory Result s for this YUE EST arthritis procedure are in Pain in joint, the results multiple sites section. SSA ANTIBODIES BY Routine 05/10/2014 15:37 Inflammatory Result s for this YUE EST arthritis procedure are in Pain in joint, the results multiple sites section. URINALYSIS WITH Routine 05/10/2014 15:37 Inflammatory Results for this MICROSCOPIC IF EST arthritis procedure are in POSITIVE Pain in joint, the results multiple sites section. HEPATITIS C AB W Routine 05/10/2014 15:37 Inflammatory Results for this REFLEX TO HCV RNA BY EST arthritis procedure are in PCR Pain in joint, the results multiple sites section. ANTI DNA (DOUBLE Routine 05/10/2014 15:37 Inflammatory Results for this STRANDED) EST arthritis procedure are in Pain in joint, the results multiple sites section. HEPATITIS B SURFACE Routine 05/10/2014 15:37 Inflammatory Resu lts for this ANTIGEN EST arthritis procedure are in Pain in joint, the results multiple sites section. ANCA, IFA Routine 05/10/2014 15:37 Inflammatory Results for this EST arthritis procedure are in Pain in joint, the results multiple sites section. SED RATE Routine 05/10/2014 15:37 Inflammatory Results for this EST arthritis procedure are in Pain in joint, the results multiple sites section. COMPLETE BLOOD COUNT Routine 05/10/2014 15:37 Inflammatory Res ults for this AND DIFFERENTIAL EST arthritis procedure are in Pain in joint, the results multiple sites section. C3 COMPLEMENT Routine 05/10/2014 15:37 Inflammatory Results fo r this EST arthritis procedure are in Pain in joint, the results multiple sites section. C4 COMPLEMENT Routine 05/10/2014 15:37 Inflammatory Results fo r this EST arthritis procedure are in Pain in joint, the results multiple sites section. C REACTIVE PROTEIN Routine 05/10/2014 15:37 Inflammatory Resul ts for this EST arthritis procedure are in Pain in joint, the results multiple sites section. ANTI NUCLEAR AB (AMOL), Routine 05/10/2014 15:37 Inflammatory R esults for this IFA EST arthritis procedure are in Pain in joint, the results multiple sites section. COMPREHENSIVE Routine 05/10/2014 15:37 Inflammatory Results fo r this METABOLIC PANEL (CMP) EST arthritis procedure are in Pain in joint, the results multiple sites section. documented in this encounter Results ANTI DNA (DOUBLE STRAND) (05/10/2014 15:37 EST) Pathologist Sig nature Anti DNA (DS) <12.3 <30 IU/mL [facility] Comment: LABORATORY SERVICES The following results were obtained with the [employer] Lite dsDNA SC Yue assay on the [employer] DSX. Specimen Blood specimen (specimen) - Blood Performing Organization Address City/[facility]/ZIP Code Phon e Number [facility] LABORATORY [address] [place] [address] SERVICES ANTI NUCLEAR ANTIBODY (05/10/2014 15:37 EST) Pathologist Sig nature Anti Nuclear Ab <40 0 - 40 [facility] LABORA TORY SERVICES Specimen Blood specimen (specimen) - Blood Performing Organization Address City/State/ZIP Code Phon e Number [facility] LABORATORY [address] [place] [address] SERVICES ANCA (05/10/2014 15:37 EST) Pathologist Sig nature ANCA Neg [facility] Specimen Blood specimen (specimen) - Blood Performing Organization Address City/[facility]/ZIP Code Phon e Number [facility] LABORATORY [address] [place] [address] SERVICES HEPATITIS C ANTIBODY (05/10/2014 15:37 EST) Pathologist Sig nature Hepatitis C Ab NegativeComment: [facility] Reference Range: LABORATORY SERVICES Negative Specimen Blood specimen (specimen) - Blood Performing Organization Address [facility]/ZIP [facility] Phon e Number [facility] LABORATORY [address] [place] [address] SERVICES HEPATITIS B SURFACE ANTIGEN (05/10/2014 15:37 EST) Hepatitis B NegativeComment: [facility] Surface Ag Reference Range: LABORATORY SERVICES Negative Specimen Blood specimen (specimen) - Blood Performing Organization Address City/[facility] Phon e Number [facility] LABORATORY [address] [place] [address] SERVICES SED. RATE:WESTERGREN (05/10/2014 15:37 EST) Pathologist Sig nature Sed. Rate Westergren 5 0 - 20 mm/hr [facility] LABORATORY SERVICES Specimen Blood specimen (specimen) - Blood Performing Organization Address [facility] Phon e Number [facility] LABORATORY [address] [place] [address] SERVICES (ABNORMAL) C-REACTIVE PROTEIN (05/10/2014 15:37 EST) Pathologist Sig nature C-Reactive Protein 2.9 (H) <1.0 mg/dl [facility] LABORATORY SERVICES Specimen Blood specimen (specimen) - Blood Performing Organization Address [facility] Phon e Number [facility] LABORATORY [address] [place] [address] SERVICES (ABNORMAL) HEMAGRAM AND DIFFERENTIAL (05/10/2014 15:37 EST) Pathologist Sig nature WBC 7.48 4.0 - 10.4 K/cmm [facility] LABORATORY SERVICES RBC 4.91 4.36 - 5.78 [facility] M/cmm LABORATORY SERVICES Hemoglobin 14.4 13.8 - 17.3 [facility] gm/dl LABORATORY SERVICES HCT 43.3 39.5 - 50.2 % [facility] LABORATORY SERVICES MCV 88 81 - 95 fl [facility] LABORATORY SERVICES MCH 29.4 27.6 - 33.0 pg [facility] LABORATORY SERVICES MCHC 33.3 32.8 - 36.4 [facility] gm/dl LABORATORY SERVICES PLT 220 141 - 320 K/cmm [facility] LABORATORY SERVICES RDW-CV 14.5 (H) 11.8 - 14.1 % [facility] LABORATORY SERVICES Neutrophils 74.2 45.5 - 79.7 % [facility] LABORATORY SERVICES Lymphocytes 17.0 15.0 - 46.8 % [facility] LABORATORY SERVICES Monocytes 8.0 1.8 - 12.0 % [facility] LABORATORY SERVICES Eosinophils 0.3 (L) 0.6 - 6.9 % [facility] LABORATORY SERVICES Basophils 0.5 0.2 - 1.4 % [facility] LABORATORY SERVICES ABS Neutrophils 5.54 2.20 - 8.85 [facility] K/[facility] LABORATORY SERVICES ABS Lymphs 1.27 1.09 - 3.30 [facility] K/[facility] LABORATORY SERVICES ABS Monocytes 0.60 0.1 - 0.8 /[facility] LABORATORY SERVICES ABS Eosinophils 0.02 (L) 0.03 - 0.61 [facility] K/[facility] LABORATORY SERVICES ABS Basophils 0.04 0.01 - 0.11 [facility] K/[facility] LABORATORY SERVICES Type of Diff: Automated [facility] LABORATORY SERVICES Specimen Blood specimen (specimen) - Blood Performing Organization Address City/State/[facility] Code Phon e Number [facility] LABORATORY [address] [place] [address] SERVICES (ABNORMAL) COMPREHENSIVE METABOLIC PANEL (CMP) (05/10/2014 15:37 EST) Pathologist Sig nature Potassium 4.7 3.5 - 5.0 mEq/L [facility] LABORATORY SERVICES Sodium 141 136 - 145 mEq/L [facility] LABORATORY SERVICES Chloride 105 96 - 110 mEq/L [facility] LABORATORY SERVICES CO2 25 24 - 32 mEq/L [facility] LABORATORY SERVICES Total Alkaline 62 38 - 126 U/L [facility] Phosphatase LABORATORY SERVICES Bilirubin, Total <0.5 <1.4 mg/dl [facility] LABORATORY SERVICES AST 22 15 - 46 U/L [facility] LABORATORY SERVICES ALT 32 21 - 72 U/L [facility] LABORATORY SERVICES Albumin 4.5 3.4 - 4.9 g/dl [facility] LABORATORY SERVICES Total Protein 6.8 6.5 - 8.3 g/dl [facility] LABORATORY SERVICES Creatinine 0.90 0.66 - 1.25 [facility] mg/dl LABORATORY SERVICES GFR, Calculated >60 >60 [facility] ml/min/1.73m2 LABORATORY SERVICES BUN 25 10 - 26 mg/dl [facility] LABORATORY SERVICES Calcium 9.9 8.5 - 10.5 [facility] mg/dl LABORATORY SERVICES Calculated Calcium 9.8 8.5 - 10.5 [facility] mg/dl LABORATORY SERVICES Glucose, Serum 134 (H) 70 - 100 mg/dl [facility] LABORATORY SERVICES Fasting? Unknown [facility] LABORATORY SERVICES Specimen Blood specimen (specimen) - Blood Performing Organization Address [facility]/ZIP Code Phon e Number [facility] LABORATORY [address] [place] [address] SERVICES SS-B/LA ANTIBODY, IGG, SERUM (05/10/2014 15:37 EST) Pathologist Sig nature SS B/La Ab, IgG, S <0.2 <1.0 (Negative) U [facility] LABORATORY SERVICES Specimen Blood specimen (specimen) - Blood Performing Organization Address [facility]/ZIP Code Phon e Number [facility] LABORATORY [address] [place] [address] SERVICES SS-A/RO ANTIBODY, IGG, SERUM (05/10/2014 15:37 EST) Pathologist Sig nature SS A/Ro Ab, IgG, S 0.3 <1.0 (Negative) U [facility] LABORATORY SERVICES Specimen Blood specimen (specimen) - Blood Performing Organization Address [facility]/ZIP [facility] Phon e Number [facility] LABORATORY [address] [place] [address] SERVICES (ABNORMAL) URINALYSIS (05/10/2014 15:37 EST) Pathologist Sig nature Color, UA Yellow [facility] LABORATORY SERVICES Clarity, UA Clear [facility] LABORATORY SERVICES Glucose, UA Neg Neg [facility] LABORATORY SERVICES Bilirubin, UA Neg Neg [facility] LABORATORY SERVICES Ketones, UA Neg Neg [facility] LABORATORY SERVICES Specific [place], 1.025 1.001 - 1.035 [facility] Urine LABORATORY SERVICES Blood, UA 2+ (A) Neg [facility] LABORATORY SERVICES pH, UA 5.5 4.6 - 8.0 [facility] LABORATORY SERVICES Protein, UA Neg Neg [facility] LABORATORY SERVICES Urobilinogen, UA 0.2 0.2 - 1.0 [facility] E.U./dl LABORATORY SERVICES Nitrite, UA Neg Neg [facility] LABORATORY SERVICES Leuk Esterase Neg Neg [facility] LABORATORY SERVICES Specimen Urine (substance) - Urine Performing Organization Address City/[facility]/ZIP Code Phon e Number [facility] LABORATORY [address] [place] [address] SERVICES C4 COMPLEMENT (05/10/2014 15:37 EST) Pathologist Sig nature C4 Complement 27 16 - 38 mg/dl [facility] LABORAT ORY SERVICES Specimen Blood specimen (specimen) - Blood Performing Organization Address City/[facility]/ZIP Code Phon e Number [facility] LABOR[facility]ORY [address] [place] [address] SERVICES C3 COMPLEMENT (05/10/2014 15:37 EST) Pathologist Sig nature C3 Complement 135 79 - 152 mg/dl [facility] LABORATORY SERVICES Specimen Blood specimen (specimen) - Blood Performing Organization Address City/[facility]/ZIP Code Phon e Number [facility] LABOR[facility]ORY [address] [place] [address] SERVICES documented in this encounter Visit Diagnoses Diagnosis Inflammatory arthritis Unspecified inflammatory polyarthropathy Pain in joint, multiple sites documented in this encounter Care Teams Entry Level Relationship Specialty Start Date End Date Dereck Schultz MD PCP - General 10/19/08 02/12/[address] [place] [id number] documented as of this encounter
--- OUTSIDE RECORDS SUMMARY | 2021-12-21 01:24 | XMS_ITS | Encounter Summary ---
:1945 Author Organization [facility] Address [address] [place] [address] Care Team Providers Name Role Phone Dereck Schultz MD Primary Care Provider [phone] Reason for Visit Reason Comments Medication Management doing well today Encounter Details Date Type Department Care Team Description 07/26/2014 Office Visit [facility] Major Turner Inflam matory arthritis (Primary Dx); Rheumatology & MD Pain in joint , ankle and foot; Immunology - Main LBP (low b ack pain) [place] [address] [place] [address] Social History Tobacco Use Types Packs/Day Years [...] Sign Reading Time Taken Comments Blood Pressure 130/80 07/26/2014 1412 EST Pulse 78 07/26/2014 1412 EST Temperature - - Respiratory Rate 18 07/26/2014 1412 EST Oxygen Saturation - - Inhaled Oxygen Concentration - - Weight 112 kg (247 lb) 07/26/2014 1412 EST Height 182.1 cm (5' 11.7) 07/26/2014 1412 EST Body Mass Index 33.78 07/26/2014 1412 EST documented in this encounter Functional Status Cognitive Status Response Date of Assessment Because of a physical, mental, or emotional condition, do Ye s 04/08/2012 you have serious difficulty concentrating, remembering, or making decisions? (5 years old or older) documented as of this encounter Discharge Diagnoses Diagnosis 714.9 INFLAMM POLYARTHROP NOS[ICD-9-CM] 719.47 JOINT PAIN-ANKLE[ICD-9-CM] 724.2 LUMBAGO[ICD-9-CM] documented in this encounter Progress Notes Della Catalan - 07/26/2014 1413 EST Division of Rheumatology and Clinical Immunology Chief Complaint Patient presents with ??? Medication Management doing well today HPI: Return visit for this 68-year-old male with a seronegative inflammatory polyarthritis. It has been 1month since my last visit with him. He is currently on methotrexate 15 mg orally once a week along with prednisone 12.5 mg a day. Since my last visit with him, he reports significant improvement in hisjoint pain and he no longer has any numbness in his left hand. His lower back pain and left leg numbness have also resolved. Current Outpatient Prescriptions Medication Sig Dispense Refill ??? aspirin chewable 81 mg tablet Take 81 mg by mouth daily. ??? finasteride (PROSCAR) 5 mg tablet Take 5 mg by mouth daily. ??? folic acid (FOLVITE) 1 mg tablet Take 1 Tab by mouth daily. 100 Tab 3 ??? gabapentin (NEURONTIN) 400 mg capsule Take 1 Cap by mouth 3 times daily. 90 Cap 5 ??? HYDROcodone-acetaminophen (VICODIN) 5-300 mg tablet Take 2 Tabs by mouth at bedtime. ??? ibuprofen (MOTRIN) 200 mg tablet Take 200 mg by mouth every 6 hours as needed for Pain. ??? methotrexate 2.5 mg tablet 6 tablets once a week. 30 Tab 3 ??? metoprolol (LOPRESSOR) 25 mg tablet Take 25 mg by mouth daily. ??? omeprazole (PRILOSEC) 20 mg capsule Take 20 mg by mouth daily. ??? predniSONE (DELTASONE) 5 mg tablet 3 daily or as directed by taper. 90 Tab 1 ??? simvastatin (ZOCOR) 40 mg tablet Take 40 mg by mouth every evening. No current facility-administered medications for this visit. Allergies include: Lisinopril Past Medical History Diagnosis Date ??? GERD (gastroesophageal reflux disease) ??? Cataract bilateral ??? Biliary colic ??? Hypercholesteremia ??? Enlarged prostate ??? Inguinal hernia bilateral ??? Hypertension ??? Sleep apnea weaing cpap ??? Pacemaker ??? 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 Cholecystectomy 2005 ??? Cataract removal bilateral ??? Hernia repair Family History Problem Relation Age of Onset ??? Diabetes Father ??? Diabetes Brother ??? Arthritis Mother unkown type History Social History ??? Marital Status: Spouse Name: N/A Number of Children: N/A ??? Years of Education: N/A Occupational History ??? Not on file. Social History Main Topics ??? Smoking status: Former Smoker -- 3.00 packs/day for 20 years Types: Cigarettes, Cigars Quit date: 09/15/1980 ??? Smokeless tobacco: Never Used Comment: Quit >30 years ago ??? Alcohol Use: Yes Comment: Occasional beer ??? Drug Use: No ??? Sexual Activity: Not on file Other Topics Concern ??? 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 loss Numbness/tingling x Eye discomfort x Headaches x Mouth/Nose sores x Muscle weakness x Chest pain x Burning on urination x Palpitations x Dark/bloody urine x Shortness of breath x Frequent urination x Cough x Trouble sleeping x Nausea/vomiting x Change in mood x Stomach pains/cramps x Nervous or anxious x Blood in stools x Sad or depressed x Diarrhea x Skin rash/changes x Constipation x Sun induced rash x Itching x Hand/Foot color change w/cold x Hair Loss x PHYSICAL EXAMINATION: BP 130/80 Pulse 78 Resp 18 Ht 182.1 cm (71.7) Wt 112.038 kg (247 lb) BMI 33.79 kg/m2 He is well appearing and in no distress. On joint exam, there is no swelling or pain in the DIP, PIPor MCP joints. The wrists, elbows, shoulders, hips, knees and ankles reveal no pain with passive motion. Mid foot and MTP joints are nontender. LABS Phlebotomy Only on 06/23/2014 Component Date Value ??? Potassium 06/23/2014 4.6 ??? Sodium 06/23/2014 143 ??? Chloride 06/23/2014 102 ??? CO2 06/23/2014 30 ??? Total Alkaline Phosphata* 06/23/2014 54 ? ? Bilirubin, Total 06/23/2014 <0.5 ??? AST 06/23/2014 16 ??? ALT 06/23/2014 26 ??? Albumin 06/23/2014 4.4 ??? Total Protein 06/23/2014 6.7 ??? Creatinine 06/23/2014 1.20 ??? GFR, Calculated 06/23/2014 60* ??? BUN 06/23/2014 25 ??? Calcium 06/23/2014 9.6 ??? Calculated Calcium 06/23/2014 9.6 ??? Glucose, Serum 06/23/2014 121* ??? Fasting? 06/23/2014 Unknown ??? WBC 06/23/2014 9.15 ??? RBC 06/23/2014 5.01 ??? Hemoglobin 06/23/2014 14.9 ??? HCT 06/23/2014 44.4 ??? MCV 06/23/2014 89 ??? MCH 06/23/2014 29.8 ??? MCHC 06/23/2014 33.6 ??? PLT 06/23/2014 212 ??? RDW-CV 06/23/2014 15.6* ??? Neutrophils 06/23/2014 75.4 ??? Lymphocytes 06/23/2014 17.0 ??? Monocytes 06/23/2014 6.7 ??? Eosinophils 06/23/2014 0.3* ??? Basophils 06/23/2014 0.6 ??? ABS Neutrophils 06/23/2014 6.89 ??? ABS Lymphs 06/23/2014 1.55 ??? ABS Monocytes 06/23/2014 0.62 ??? ABS Eosinophils 06/23/2014 0.03 ??? ABS Basophils 06/23/2014 0.05 ??? Type of Diff: 06/23/2014 Automated Results Only on 05/10/2014 Component Date Value ??? WBC, UA 05/10/2014 less than 1 ??? RBC, UA 05/10/2014 1 to 5 ??? Squam Epithel, UA 05/10/2014 None seen ??? Renal Epithel, UA 05/10/2014 None seen ??? Bacteria, UA 05/10/2014 None seen ??? Crystals, UA 05/10/2014 None seen ??? Casts, UA 05/10/2014 None seen ??? UA Comment 05/10/2014 Microscopic results ??? Mucus, UA 05/10/2014 Present Phlebotomy Only on 05/10/2014 Component Date Value ??? C3 Complement 05/10/2014 135 ??? C4 Complement 05/10/2014 27 ??? Color, UA 05/10/2014 Yellow ??? Clarity, UA 05/10/2014 Clear ??? Glucose, UA 05/10/2014 Neg ??? Bilirubin, UA 05/10/2014 Neg ??? Ketones, UA 05/10/2014 Neg ??? Specific [place], Urine 05/10/2014 1.025 ??? Blood, UA 05/10/2014 2+* ??? pH, UA 05/10/2014 5.5 ??? Protein, UA 05/10/2014 Neg ??? Urobilinogen, UA 05/10/2014 0.2 ??? Nitrite, UA 05/10/2014 Neg ??? Leuk Esterase 05/10/2014 Neg ??? SS A/Ro Ab, IgG, S 05/10/2014 0.3 ? ? SS B/La Ab, IgG, S 05/10/2014 <0.2 ??? Potassium 05/10/2014 4.7 ??? Sodium 05/10/2014 141 ??? Chloride 05/10/2014 105 ??? CO2 05/10/2014 25 ??? Total Alkaline Phosphata* 05/10/2014 62 ? ? Bilirubin, Total 05/10/2014 <0.5 ??? AST 05/10/2014 22 ??? ALT 05/10/2014 32 ??? Albumin 05/10/2014 4.5 ??? Total Protein 05/10/2014 6.8 ??? Creatinine 05/10/2014 0.90 ? ? GFR, Calculated 05/10/2014 >60 ??? BUN 05/10/2014 25 ??? Calcium 05/10/2014 9.9 ??? Calculated Calcium 05/10/2014 9.8 ??? Glucose, Serum 05/10/2014 134* ??? Fasting? 05/10/2014 Unknown ??? WBC 05/10/2014 7.48 ??? RBC 05/10/2014 4.91 ??? Hemoglobin 05/10/2014 14.4 ??? HCT 05/10/2014 43.3 ??? MCV 05/10/2014 88 ??? MCH 05/10/2014 29.4 ??? MCHC 05/10/2014 33.3 ??? PLT 05/10/2014 220 ??? RDW-CV 05/10/2014 14.5* ??? Neutrophils 05/10/2014 74.2 ??? Lymphocytes 05/10/2014 17.0 ??? Monocytes 05/10/2014 8.0 ??? Eosinophils 05/10/2014 0.3* ??? Basophils 05/10/2014 0.5 ??? ABS Neutrophils 05/10/2014 5.54 ??? ABS Lymphs 05/10/2014 1.27 ??? ABS Monocytes 05/10/2014 0.60 ??? ABS Eosinophils 05/10/2014 0.02* ??? ABS Basophils 05/10/2014 0.04 ??? Type of Diff: 05/10/2014 Automated ??? C-Reactive Protein 05/10/2014 2.9* ??? Sed. Rate Westergren 05/10/2014 5 ??? Hepatitis B Surface Ag 05/10/2014 Negative ??? Hepatitis C Ab 05/10/2014 Negative ??? ANCA 05/10/2014 Neg ? ? Anti Nuclear Ab 05/10/2014 <40 ? ? Anti DNA (DS) 05/10/2014 <12.3 Imaging: Diagnosis / Assessment: Inflammatory polyarthritis, much improved. Recommendations/Evaluation: I told him to go ahead and reduce his prednisone to 5 mg b.i.d. He will continue methotrexate 15 mg once a week along with folic acid 1 mg per day. I will see him back in 8 weeks. Barriers to learning identified: No Patient verbalizes understanding and agrees with plan Yes Major Turner MD 07/26/2014 15:04 documented in this encounter Plan of Treatment Upcoming Encounters Date Type Specialty Care Team Description 12/27/2021 Office Visit Hematology and Erin Barillas M D Oncology [address] [phone] (Wo rk) 02/14/2022 Office Visit Hematology and Erin Barillas M D Oncology [address] [place] [phone] (Wo rk) 04/25/2022 Ancillary Procedure Cardiology 04/25/2022 Office Visit Cardiology Claire Lopez NP 130 [facility] [address] [phone] (Wo rk) 05/13/2022 Office Visit Rheumatology Tod Perez, [facility] [address] [phone] (Wo rk) documented as of this encounter Results (ABNORMAL) HEMAGRAM AND DIFFERENTIAL (07/26/2014 15:06 EST) Pathologist Sig nature WBC 8.75 4.0 - 10.4 K/cmm [facility] RBC 5.02 4.36 - 5.78 [facility] Hemoglobin 15.1 13.8 - 17.3 [facility] gm/dl LABORATORY SERVICES HCT 45.5 39.5 - 50.2 % [facility] MCV 91 81 - 95 fl [facility] MCH 30.0 27.6 - 33.0 pg [facility] MCHC 33.1 32.8 - 36.4 [facility] gm/dl LABORATORY SERVICES RDW-CV 16.6 (H) 11.8 - 14.1 % [facility] RDW-SD 53.4 (H) 36.5 - 45.9 fl [facility] Anisocytosis 1+ [facility] PLT 196 141 - 320 [facility] MPV 9.8 7.5 - 11.2 fl [facility] Neutrophils 74.9 45.5 - 79.7 % [facility] Lymphocytes 17.2 15.0 - 46.8 % [facility] Monocytes 6.9 1.8 - 12.0 % [facility] Eosinophils 0.7 0.6 - 6.9 % [facility] Basophils 0.3 0.2 - 1.4 % [facility] ABS Neutrophils 6.56 2.20 - 8.85 [facility] ABS Lymphs 1.51 1.09 - 3.30 [facility] ABS Monocytes 0.60 0.1 - 0.8 K/[facility] ABS Eosinophils 0.06 0.03 - 0.61 [facility] ABS Basophils 0.03 0.01 - 0.11 [facility] Type of Diff: Automated [facility] Specimen Blood specimen (specimen) - Blood Performing Organization Address City/State/ZIP Code Phon e Number [facility] [address] [place] [address] SERVICES (ABNORMAL) COMPREHENSIVE METABOLIC PANEL (CMP) (07/26/2014 15:06 EST) Pathologist Sig nature Potassium 4.4 3.5 - 5.0 mEq/L [facility] Sodium 140 136 - 145 mEq/L [facility] Chloride 103 96 - 110 mEq/L [facility] CO2 27 24 - 32 mEq/L [facility] Total Alkaline 56 38 - 126 U/L [facility] Phosphatase LABORATORY SERVICES Bilirubin, Total 0.7 <1.4 mg/dl [facility] AST 17 15 - 46 U/L [facility] ALT 30 21 - 72 U/L [facility] Albumin 4.2 3.4 - 4.9 g/dl [facility] Total Protein 6.6 6.5 - 8.3 g/dl [facility] Creatinine 1.02 0.66 - 1.25 [facility] mg/dl LABORATORY SERVICES GFR, Calculated >60 >60 [facility] ml/min/1.73m2 LABORATORY SERVICES BUN 19 10 - 26 mg/dl [facility] Calcium 9.6 8.5 - 10.5 [facility] mg/dl LABORATORY SERVICES Calculated Calcium 9.8 8.5 - 10.5 [facility] mg/dl LABORATORY SERVICES Glucose, Serum 118 (H) 70 - 100 mg/dl [facility] Fasting? YES [facility] Specimen Blood specimen (specimen) - Blood Performing Organization Address City/State/ZIP Code Phon e Number [facility] [address] [place] [address] SERVICES documented in this encounter Visit Diagnoses Diagnosis Inflammatory arthritis - Primary Unspecified inflammatory polyarthropathy Pain in joint, ankle and foot LBP (low back pain) Lumbago documented in this encounter Care Teams Correctional Supervisor Relationship Specialty Start Date End Date Dereck Schultz MD PCP - General 10/19/08 02/12/[address] [place] [address] documented as of this encounter
--- OUTSIDE RECORDS SUMMARY | 2021-12-21 01:24 | XMS_ITS | Encounter Summary ---
:1945 Author Organization [facility] Address [address] [place] [address] Care Team Providers Name Role Phone Dereck Schultz MD Primary Care Provider [phone] Reason for Referral Prior Authorization (Routine) - Closed Specialty Diagnoses / Procedures Referred By Contact Refer red To Contact Diagnoses Inflammatory polyarthritis ([facility]) ([facility]) Major Turner MD [address] [place] [address] Referral ID Status Reason Start Date Expiration Date Visits Requ ested Visits Authorized [id number] Closed Other 09/14/2014 1 1 Question Answer Medication to be Prior Authorized: prednisone 5 mg twi ce a day Comments The purpose of this consult request is t o inform the scheduling staff that a medication needs to be prior-authorized before it is prescribed and/or administered. Reason for Visit Reason Onset Date Comments Medications Refill 09/13/2014 Encounter Details Date Type Department Care Team Description 09/13/2014 Refill [facility] Major Turner MD Med ications Refill Rheumatology & Immunology - Main Man [address] [place] [address] Social History Tobacco Use Types [...] Start Date End Date predniSONE (DELTASONE) 5 mg 1 tab twice a day 60 Tab 1 0 09/14/2014 09/20/2014 tablet documented in this encounter Miscellaneous Notes Telephone Encounter - Lynda Treadwell RN - 09/14/2014 1112 EDT Refill signed for 5 mg bid. New order for prior auth of prednisone has been placed elephone Encounter - Lynda Treadwell RN - 09/14/2014 1110 EDT From: Praneeth Villanueva To: Major Turner MD Sent: 09/13/2014 14:40 EDT Subject: Medication Renewal Request Original authorizing provider: MD Praneeth Odom would like a refill of the following medications: predniSONE (DELTASONE) 5 mg tablet [Major Turner MD] Preferred pharmacy: [id number] Comment: Praneeth needs a new prescription - please send to [facility]. The pharmacy tells me this Rx needs a prior authorization. Thank you. Augustina Villanueva documented in this encounter Plan of Treatment Upcoming Encounters Date Type Specialty Care Team Description 12/27/2021 Office Visit Hematology and Erin Barillas M D Oncology [address] [place] [address] [address] [place] [phone] (Wo rk) 02/14/2022 Office Visit Hematology and Erin Barillas M D Oncology 111 [facility] [address] [place] [address] (Wo rk) 04/25/2022 Ancillary Procedure Cardiology 04/25/2022 Office Visit Cardiology Claire Lopez NP 130 [facility] [address] [place] [phone] (Wo rk) 05/13/2022 Office Visit Rheumatology Tod Perez NP 111 [facility] [address] [place] [address] (Wo rk) Scheduled Referrals Name Type Priority Associated Diagnoses Order S chedule AMB MEDICATION PRIOR Outpatient Routine Inflammatory Ordered : AUTHORIZATION Referral polyarthritis 09/14/2014 ([facility]) documented as of this encounter Visit Diagnoses Diagnosis Inflammatory polyarthritis ([facility]) ([facility]) - Primary Unspecified inflammatory polyarthropathy documented in this encounter Discontinued Medications Medication Sig Discontinue Reason Start Date End Date predniSONE (DELTASONE) 3 daily or as Reorder 06/06/2014 04/0 06/2014 5 mg tablet directed by taper. documented as of this encounter Care Teams Cafe Assistant Relationship Specialty Start Date End Date Dereck Schultz MD PCP - General 10/19/08 02/12/17 [facility] [phone] documented as of this encounter
--- OUTSIDE RECORDS SUMMARY | 2021-12-21 01:24 | XMS_ITS | Encounter Summary ---
:1945 Author Organization [facility] Address [address] [place] [address] Care Team Providers Name Role Phone Dereck Schultz MD Primary Care Provider [phone] Reason for Visit Reason Comments Joint Pain hips Rash spot on upper left arm area Encounter Details Date Type Department Care Team Description 02/07/2014 Office Visit [facility] Major Turner Inflam matory arthritis (Primary Dx); Rheumatology & MD LBP (low back pain); Immunology - Main CTS (carpa l tunnel syndrome) [facility] [address], [place] [id number] Social History Tobacco Use Types Packs/Day Years [...] Sign Reading Time Taken Comments Blood Pressure 140/85 02/07/2014 1525 EDT Pulse 84 02/07/2014 1525 EDT Temperature - - Respiratory Rate 18 02/07/2014 1525 EDT Oxygen Saturation - - Inhaled Oxygen Concentration - - Weight 111.6 kg (246 lb) 02/07/2014 1525 EDT Height - - Body Mass Index 34.31 10/11/2013 1253 EDT documented in this encounter Functional Status Cognitive Status Response Date of Assessment Because of a physical, mental, or emotional condition, do Ye s 04/08/2012 you have serious difficulty concentrating, remembering, or making decisions? (5 years old or older) documented as of this encounter Discharge Diagnoses Diagnosis 714.9 INFLAMM POLYARTHROP NOS[ICD-9-CM] 724.2 LUMBAGO[ICD-9-CM] 354.0 CARPAL TUNNEL SYNDROME[ICD-9-CM] documented in this encounter Patient Instructions Patient InstructionsMajor Turner MD - 02/07/2014 15:51 EDT Reduce prednisone to 9 mg daily with breakfast for 30 days Then 8 mg daily for 30 days Then 7 mg daily for 30 days, until return visit documented in this encounter Ordered Prescriptions Prescription Sig Dispensed Refills Start Date End Date predniSONE (DELTASONE) 1 4 tablets daily or 100 Tab 5 06/23/2014 mg tablet as directed. predniSONE (DELTASONE) 5 1 daily or as 100 Tab 3 02/08/20 14 06/06/2014 mg tablet directed. documented in this encounter Progress Notes Major Turner MD - 02/07/2014 1526 EDT Division of Rheumatology and Clinical Immunology Chief Complaint Patient presents with ??? Joint Pain hips ??? Rash spot on upper left arm area HPI: Return visit for this 68-year-old gentleman with an inflammatory polyarthritis. Since my last visit with him, he has been doing well. 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 His low back pain has improved with the use of gabapentin and x-rays of the lumbar spine obtained, which I reviewed, showed some degenerative change in the lower lumbar spine. He continues on prednisone, his dose has now been reduced to 10 mg per day. He still has some mild numbness in his left hand and left foot. Current Outpatient Prescriptions Medication Sig Dispense Refill ??? aspirin chewable 81 mg tablet Take 81 mg by mouth daily. ??? finasteride (PROSCAR) 5 mg tablet Take 5 mg by mouth daily. ??? gabapentin (NEURONTIN) 100 mg capsule 1 tablet at bedtime for 4 days, then 1 bid for 4 days then1 tid; after 2 weeks increase to 2 tid. 100 Cap 3 ??? HYDROcodone-acetaminophen (VICODIN) 5-300 mg tablet Take 2 Tabs by mouth at bedtime. ??? ibuprofen (MOTRIN) 200 mg tablet Take 200 mg by mouth every 6 hours as needed for Pain. ??? metoprolol (LOPRESSOR) 25 mg tablet Take 25 mg by mouth daily. ??? omeprazole (PRILOSEC) 20 mg capsule Take 20 mg by mouth daily. ??? predniSONE (DELTASONE) 1 mg tablet 4 tablets daily or as directed. 100 Tab 5 ??? predniSONE (DELTASONE) 5 mg tablet 1 daily or as directed. 100 Tab 3 ??? simvastatin (ZOCOR) 40 mg tablet Take [...] Occasional beer ??? Drug Use: No ??? Sexually Active: Not on file Other Topics Concern ??? 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 Numbness/tingling x Eye discomfort x Headaches x [...] x Hair Loss x PHYSICAL EXAMINATION: BP 140/85 Pulse 84 Resp 18 Wt 111.585 kg (246 lb) BMI 34.33 kg/m2 On exam, he has no swelling or tenderness in the DIP, PIP or MCP joints. Wrists, elbows, shoulders, hips, knees and ankles reveal no pain with passive motion. Mid-foot and MTP joints are nontender. There is an area of erythema and scale on the upper left arm between 1 and 2 cm in diameter, which is not raised. LABS No visits with results within 3 Month(s) from this visit. Latest known visit with results is: Phlebotomy Only on 09/15/2013 Component Date Value ? ? CCP Antibodies 09/15/2013 <2.5 ??? TSH 09/15/2013 0.38 ??? Total Protein 09/15/2013 7.5 ??? Albumin, SPEP 09/15/2013 55.6 ??? Alpha 1, SPEP 09/15/2013 4.1 ??? Alpha 2, SPEP 09/15/2013 13.0 ??? Beta, SPEP 09/15/2013 13.0 ??? Gamma, SPEP 09/15/2013 14.3 ??? Comments, SPEP 09/15/2013 No apparent monoclonal protein ??? Potassium 09/15/2013 4.9 ??? Sodium 09/15/2013 140 ??? Chloride 09/15/2013 102 ??? CO2 09/15/2013 24 ??? Total Alkaline Phosphata* 09/15/2013 77 ??? Bilirubin, Total 09/15/2013 0.6 ??? AST 09/15/2013 18 ??? ALT 09/15/2013 39 ??? Albumin 09/15/2013 4.7 ??? Total Protein 09/15/2013 7.4 ??? Creatinine 09/15/2013 0.92 ??? GFR, Calculated 09/15/2013 Not calculated ??? BUN 09/15/2013 20 ??? Calcium 09/15/2013 9.8 ??? Calculated Calcium 09/15/2013 9.5 ??? Glucose, Serum 09/15/2013 138* ??? Fasting? 09/15/2013 Unknown ??? C-Reactive Protein 09/15/2013 0.8 ??? Sed. Rate Westergren 09/15/2013 4 Imaging: Diagnosis / Assessment: 1. Inflammatory polyarthritis, much improved. 2. Degenerative arthritis, lower lumbar spine. 3. Low back pain improved. 4. Left leg pain, improved. 5. Episodic erythematous skin rash of unclear etiology. Some of the features of this suggest that this could be a psoriasiform type rash. Recommendations/Evaluation: We are going to reduce his prednisone by 1 mg to 9 mg daily and he will reduce that in 30 days to 8 mg per day and 30 days later to 7 mg daily. He will continue gabapentin 200 mg t.i.d. Recheck in 3 months. Barriers to learning identified: No Patient verbalizes understanding and agrees with plan Yes Major Turner MD 02/07/2014 15:58 documented in this encounter Plan of Treatment Upcoming Encounters Date Type Specialty Care Team Description 12/27/2021 Office Visit Hematology and Erin Barillas M D Oncology [address] [phone] (Joi diallo) 02/14/2022 Office Visit Hematology and Erin Barillas M D Oncology [address] [phone] (Joi diallo) 04/25/2022 Ancillary Procedure Cardiology 04/25/2022 Office Visit Cardiology Claire Lopez NP [address] [facility] [address] [place] [phone] (Wo rk) 05/13/2022 Office Visit Rheumatology Tod Perez NP 111 [facility], [address] [place] [phone] (Wo rk) documented as of this encounter Visit Diagnoses Diagnosis Inflammatory arthritis - Primary Unspecified inflammatory polyarthropathy LBP (low back pain) Lumbago CTS (carpal tunnel syndrome) Carpal tunnel syndrome documented in this encounter Discontinued Medications Medication Sig Discontinue Reason Start Date End Date PREDNISONE ORAL Take 20 mg by mouth daily 20 mg alt with 10 mg. 02/07/2014 documented as of this encounter Care Teams Patent Leather Sorter Relationship Specialty Start Date End Date Dereck Schultz MD PCP - General 10/19/08 02/12/[address] [place], [place] [address] [phone] documented as of this encounter
--- OUTSIDE RECORDS SUMMARY | 2021-12-21 01:24 | XMS_ITS | Encounter Summary ---
:1945 Author Organization [facility] Address [address] [place] [address] Care Team Providers Name Role Phone Dereck Schultz MD Primary Care Provider [phone] Reason for Visit Reason Onset Date Comments Labs Only 09/24/2013 Encounter Details Date Type Department Care Team Description 09/24/2013 Telephone [facility] Rheumatology & YueMajor MD Labs Only Immunology - Main [facility] [address] [place], [place] [id number] Social History Tobacco Use Types Packs/Day Years [...] or older) documented as of this encounter Miscellaneous Notes Telephone Encounter - Lynda Treadwell RN - 09/24/2013 0102 EDT Lab req has been sent to pcp office as requested. elephone Encounter - Mariana Naik - 09/24/2013 1425 EDT Pt would like lab order to be sent to his PCP office/ [facility]. documented in this encounter Plan of Treatment Upcoming Encounters Date Type Specialty Care Team Description 12/27/2021 Office Visit Hematology and Erin Barillas M D Oncology [address] [phone] (Wo rk) 02/14/2022 Office Visit Hematology and Erin Barillas M D Oncology [address] [phone] (Wo rk) 04/25/2022 Ancillary Procedure Cardiology 04/25/2022 Office Visit Cardiology Claire Lopez , FESTUS [address] [place] [address] [phone] (Wo rk) 05/13/2022 Office Visit Rheumatology Tod Perez NOZZLEMAN [address] [facility] [address] [place] [phone] (Wo rk) documented as of this encounter Visit Diagnoses Not on filedocumented in this encounter Care Teams Training Systems Officer Relationship Specialty Start Date End Date Dereck Schultz MD PCP - General 10/19/08 02/12/17 [address] [place] [address] documented as of this encounter
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
--- OUTSIDE RECORDS SUMMARY | 2021-12-21 01:24 | XMS_ITS | Encounter Summary ---
:1945 Author Organization [facility] Address [address] [place] [address] Care Team Providers Name Role Phone Dereck Schultz MD Primary Care Provider [phone] Encounter Details Date Type Department Care Team Description 09/15/2013 Phlebotomy Only [facility] Contract Driver, Pain in joint, ankle - [facility] Outpatient and foot [address] [place] [address] Social History Tobacco Use Types Packs/Day Years [...] and Erin Barillas M D Oncology 111 [facility], [address] [place] [address] (Wo rk) 02/14/2022 Office Visit Hematology and Erin Barillas M D Oncology 111 [facility], [address] [place] [phone] (Wo rk) 04/25/2022 Ancillary Procedure Cardiology 04/25/2022 Office Visit Cardiology Claire Lopez , FESTUS [address] [facility] [address] [place] [address] (Wo rk) 05/13/2022 Office Visit Rheumatology Tod Perez NP 111 [facility], [facility], [address] [place] [address] (Wo rk) documented as of this encounter Procedures Procedure Name Priority Date/Time Associated Comments Diagnosis CCP ANTIBODIES Routine 09/15/2013 11:57 Pain in joint, Results for this EDT ankle and foot procedure are in the results section. SED RATE Routine 09/15/2013 11:57 Pain in joint, Results f or this EDT ankle and foot procedure are in the results section. C REACTIVE PROTEIN Routine 09/15/2013 11:57 Pain in joint, Res ults for this EDT ankle and foot procedure are in the results section. TSH Routine 09/15/2013 11:57 Pain in joint, Results f or this EDT ankle and foot procedure are in the results section. SPEP, INCLUDES Routine 09/15/2013 11:57 Pain in joint, Results for this QUANTITATION OF EDT ankle and foot procedure are in MONOCLONAL SPIKE the results section. COMPREHENSIVE Routine 09/15/2013 11:57 Pain in joint, Results for this METABOLIC PANEL (CMP) EDT ankle and foot proc edure are in the results section. documented in this encounter Results SED. RATE:JUAN (09/15/2013 11:57 EDT) Pathologist Sig nature Sed. Rate Juan 4 0 - 20 mm/hr [facility] Specimen Blood specimen (specimen) Performing Organization Address City/State/[facility] Code Phon e Number [facility] [address] [place] [address] SERVICES [facility] [address] [place] [address] C-REACTIVE PROTEIN (09/15/2013 11:57 EDT) Pathologist Sig nature C-Reactive Protein 0.8 <1.0 mg/dl [facility] Specimen Blood specimen (specimen) Performing Organization Address [facility] Phon e Number [facility] [address] [place] [address] SERVICES [facility] [address] [place] [address] (ABNORMAL) COMPREHENSIVE METABOLIC PANEL (CMP) (09/15/2013 11:57 EDT) Potassium 4.9 3.5 - 5.0 [facility] mEq/L LAB Sodium 140 136 - 145 [facility] mEq/L LAB Chloride 102 96 - 110 mEq/L [facility] CO2 24 24 - 32 mEq/L [facility] Total Alkaline 77 38 - 126 U/L [facility] Phosphatase LAB Bilirubin, Total 0.6 <1.4 mg/dl [facility] AST 18 15 - 46 U/L [facility] ALT 39 21 - 72 U/L [facility] Albumin 4.7 3.4 - 4.9 g/dl [facility] Total Protein 7.4 6.5 - 8.3 g/dl [facility] Creatinine 0.92 0.66 - 1.25 [facility] mg/dl LAB GFR, Calculated Not calculated >60 [facility] ml/min/1.73m2 LAB BUN 20 10 - 26 mg/dl [facility] Calcium 9.8 8.5 - 10.5 [facility] mg/dl LAB Calculated Calcium 9.5 8.5 - 10.5 [facility] mg/dl LAB Glucose, Serum 138 (H) 70 - 100 mg/dl [facility] Fasting? Unknown [facility] Specimen Blood specimen (specimen) Performing Organization Address City/[facility]/ZIP Code Phon e Number [facility] [address] [place] [address] SERVICES [facility] [address] [place] [address] ELECTROPHORESIS, SERUM (09/15/2013 11:57 EDT) Total Protein 7.5 6.5 - 8.3 g/dl [facility] Albumin, SPEP 55.6 47.6 - 61.9 % [facility] Alpha 1, SPEP 4.1 1.4 - 4.6 % [facility] Alpha 2, SPEP 13.0 7.3 - 13.9 % [facility] Beta, SPEP 13.0 10.9 - 19.1 % [facility] Gamma, SPEP 14.3 9.5 - 24.8 % [facility] Comments, SPEP No apparent monoclonal protein [facility] Comment: on serum electrophoresis. See Pathology Scanned Report in PRISM. Specimen Blood specimen (specimen) Performing Organization Address City/[facility] Phon e Number [facility] [address] [place] [address] SERVICES [facility] [address] [place] [id number] TSH (09/15/2013 11:57 EDT) Pathologist Sig nature TSH 0.38 0.35 - 5.00 uIU/ml [facility] Specimen Blood specimen (specimen) Performing Organization Address City/[facility]/ZIP Code Phon e Number [facility] [address] [place] [address] SERVICES [facility] [address] [place] [id number] CCP ANTIBODIES (09/15/2013 11:57 EDT) Pathologist Sig nature CCP Antibodies <2.5 <5.0 U/mL [facility] Specimen Performing Organization Address City/[facility] Phon e Number [facility] [address] [place] [address] SERVICES [facility] [address] [place] [id number] documented in this encounter Visit Diagnoses Diagnosis Pain in joint, ankle and foot documented in this encounter Care Teams Supervisor Plate Forming Relationship Specialty Start Date End Date Dereck Schultz MD PCP - General 10/19/08 02/12/17 [address] [place] [phone] documented as of this encounter
--- OUTSIDE RECORDS SUMMARY | 2021-12-21 01:24 | XMS_ITS | Encounter Summary ---
:[address] [facility] Address [address] [place] [address] Care Team Providers Name Role Phone Dereck Schultz MD Primary Care Provider [phone] Reason for Visit Reason Onset Date Comments Medications Refill 06/04/2014 Encounter Details Date Type Department Care Team Description 06/04/2014 Refill [facility] Major Turner MD [facility] Refill Rheumatology & Immunology - [facility] [address] [place], [place] [id number] Social History Tobacco Use Types Packs/Day Years [...] Start Date End Date predniSONE (DELTASONE) 5 3 daily or as 90 Tab 1 06/06/20 14 09/14/2014 mg tablet directed by taper. gabapentin (NEURONTIN) Take 1 Cap by mouth 90 Cap 5 05/1712/05/2014 400 mg capsule 3 times daily. documented in this encounter Miscellaneous Notes Telephone Encounter - Zari Mccabe RN - 06/06/2014 0854 EST Spoke with pt's . I advised her that I would send in a new RX for 400mg Gabapentin Caps. He willtake one cap three times a day. He will keep his follow up for Jun. Telephone Encounter - Zari Mccabe RN - 06/06/2014 0831 EST From: Praneeth Villanueva To: Major Turner MD Sent: 06/04/2014 12:55 EST Subject: Medication Renewal Request Original authorizing provider: MD Praneeth Odom would like a refill of the following medications: gabapentin (NEURONTIN) 100 mg capsule [Major Turner MD] Preferred pharmacy: [id number] Comment: Praneeth is taking 400 mg 3x/day. The pharmacy will not refill current Rx until 06/10. Could this new Rx be sent today? If not, we will pay for enough pills to get him through to 06/06. Thank you. documented in this encounter Plan of Treatment Upcoming Encounters Date Type Specialty Care Team Description 12/27/2021 Office Visit Hematology and Erin Barillas M D Oncology [address] [phone] (Joi diallo) 02/14/2022 Office Visit Hematology and Erin Barillas M D Oncology [address] [phone] (Joi diallo) 04/25/2022 Ancillary Procedure Cardiology 04/25/2022 Office Visit Cardiology Claire Lopez NP [address] [facility] [address] [place] [phone] (Wo rk) 05/13/2022 Office Visit Rheumatology Tod Perez NP 111 [facility], [address] [place] [address] (Wo rk) documented as of this encounter Visit Diagnoses Not on filedocumented in this encounter Discontinued Medications Medication Sig Discontinue Reason Start Date End Date predniSONE (DELTASONE) 5 1 daily or as Reorder 02/07/2014 mg tablet directed. documented as of this encounter Care Teams Tube Dispatcher Relationship Specialty Start Date End Date Dereck Schultz MD PCP - General 10/19/08 02/12/17 [facility] [place] [address] [place] [phone] documented as of this encounter
--- OUTSIDE RECORDS SUMMARY | 2021-12-21 01:24 | XMS_ITS | Encounter Summary ---
:1945 Author Organization [facility] Address [address] [place] [address] Care Team Providers Name Role Phone Dereck Schultz MD Primary Care Provider [phone] Encounter Details Date Type Department Care Team Description 05/10/2014 Results Only [facility] Major Turner MD Rheumatology & Immunology - [address] [address] Social History Tobacco Use Types [...] and Erin Barillas M D Oncology 111 [facility], [address] [place] [address] (Wo rk) 02/14/2022 Office Visit Hematology and Erin Barillas M D Oncology 111 [facility], [facility] [address] [place] [phone] (Wo rk) 04/25/2022 Ancillary Procedure Cardiology 04/25/2022 Office Visit Cardiology Claire Lopez , [facility] [address] [place] [phone] (Wo rk) 05/13/2022 Office Visit Rheumatology Tod Perez NP 111 [facility], [facility] [address] [place] [address] (Wo rk) documented as of this encounter Procedures Procedure Name Priority Date/Time Associated Diagnosis Comme nts URINE MICROSCOPIC Routine 05/10/2014 15:37 Result s for this EST procedure are i n the results section. documented in this encounter Results URINE MICROSCOPIC (05/10/2014 15:37 EST) WBC, UA less than 1 0 - 5 /HPF [facility] RBC, UA 1 to 5 0 - 5 /HPF [facility] Squam Epithel, UA None seen None seen [facility] Renal Epithel, UA None seen None seen [facility] Bacteria, UA None seen None seen [facility] Crystals, UA None seen /HPF [facility] Hyaline Casts, UA None seen /LPF [facility] UA Comment Microscopic results [facility] Comment: LABORATORY are unreliable on SERVICES urines unrefrig >2hrs or refrig >8hrs. Mucus, UA Present [facility] Specimen Urine Performing Organization Address City/State/ZIP Code Phon e Number [facility] [address] [place] [address] SERVICES documented in this encounter Visit Diagnoses Not on filedocumented in this encounter Care Teams Eye Clinic Manager Relationship Specialty Start Date End Date Meierdiercks, Dereck J, MD PCP - General 10/19/08 02/12/[address] [place] [phone] documented as of this encounter
--- OUTSIDE RECORDS SUMMARY | 2021-12-21 01:24 | XMS_ITS | Encounter Summary ---
:1945 Author Organization [facility] Address [address] [place] [address] Care Team Providers Name Role Phone Dereck Schultz MD Primary Care Provider [phone] Reason for Referral Radiology Services (Routine) - Closed Specialty Diagnoses / Procedures Referred By Contact Refer red To Contact Diagnoses Left leg pain LBP (low back pain) Major Turner MD Procedures L SPINE 4 OR MORE VIEWS [address] [place] [id number] Referral ID Status Reason Start Date Expiration Date Visits Requ ested Visits Authorized [id number] Closed 01/03/2014 1 1 Reason for Visit Reason Comments Joint Pain whole left side aches and ti ngles Encounter Details Date Type Department Care Team Description 01/03/2014 Office Visit [facility] Major Turner Inflam matlisa arthritis (Primary Dx); Rheumatology & Left leg pain ; Immunology - Main LBP (low b ack pain) [place] [address] [place], [place] [id number] Social History Tobacco Use Types Packs/Day Years [...] Sign Reading Time Taken Comments Blood Pressure 120/64 01/03/2014 1605 EDT Pulse 64 01/03/2014 1605 EDT Temperature - - Respiratory Rate 16 01/03/2014 1605 EDT Oxygen Saturation - - Inhaled Oxygen Concentration - - Weight 111.6 kg (246 lb) 01/03/2014 1605 EDT Height - - Body Mass Index 34.31 10/11/2013 1253 EDT documented in this encounter Functional Status Cognitive Status Response Date of Assessment Because of a physical, mental, or emotional condition, do Ye s 04/08/2012 you have serious difficulty concentrating, remembering, or making decisions? (5 years old or older) documented as of this encounter Discharge Diagnoses Diagnosis 714.9 INFLAMM POLYARTHROP NOS[ICD-9-CM] 729.5 PAIN IN LIMB[ICD-9-CM] 724.2 LUMBAGO[ICD-9-CM] documented in this encounter Ordered Prescriptions Prescription Sig Dispensed Refills Start Date End Date gabapentin (NEURONTIN) 1 tablet at bedtime 100 Cap 3 12/1503/17/2014 100 mg capsule for 4 days, then 1 bid for 4 days then 1 tid; after 2 weeks increase to 2 tid. documented in this encounter Progress Notes Jazmyne Welch - 01/03/2014 1604 EDT Division of Rheumatology and Clinical Immunology Chief Complaint Patient presents with ??? Joint Pain whole left side aches and tingles HPI: Mr. Villanueva is a 68 yo male who has been followed in rheumatology clinic for inflammatory polyarthritis which has caused hand swelling, compression of the L carpal tunnel and subsequent neuropathy, and L hand weakness. He has been tapering his prednisone and is currently taking a 20mg alternatedwith 10mg dose. He does report significant back pain which bothers him when he sits for long periodsof time which will affect him on an upcoming trip to [facility]. He does have a tingling of the left leg as well, but only when he has walked a bit. He explains that he is not able to work currently out of concern for his left leg not working properly and because he needs to rest every 20 minutes due to hand weakness. Current Outpatient Prescriptions Medication Sig Dispense Refill [...] by mouth daily. ??? PREDNISONE ORAL Take 20 mg by mouth daily 20 mg alt with 10 mg. ??? 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 Numbness/tingling x Eye discomfort [...] x Hair Loss x PHYSICAL EXAMINATION: BP 120/64 Pulse 64 Resp 16 Wt 111.585 kg (246 lb) BMI 34.33 kg/m2 Alert, no acute distress Heart with normal S1 and S2, no murmurs appreciated Left and right hands diffuse swelling, nonpainful joints or wrist, good strength throughout, no atrophy, muscular Good range of motion of shoulders, elbows Wrist flexion reduced in left wrist No nodules of forearms or elbows Knee has no effusions, full range of motion Ankles have full range of motion, moderate swelling present L>R No tender or inflamed joints in feet and ankles, no pitting edema Good dorsalis pedis pulses bilaterally Varicose veins bilaterally, very significant on left LABS No visits with results within 3 [...] [place]gren 09/15/2013 4 Imaging: Diagnosis / Assessment: 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 He is comfortable moving to 10mg daily. He is continuing to have swelling of his hands which worsens with activity, neurologic symptoms of tingling in his left hand (EMG showed this to be carpal tunnel) and perceives hand weakness although his strength is still very good objectively, and some left leg tingling when he walks. He is also having lower back pain exacerbated bysitting. These problems have made it difficult for him to do the physical labor he wishes to do. 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 If this worsens or objective weakness occurs, certainly we can reconsider other neurologic causes. Of note, his symptom of tingling in his left foot after walking for a period is concerning for vascular disease; he does have good dorsalis pedis pulses on exam. Recommendations/Evaluation: 1. We are slowly reducing the prednisone. Take 10mg daily. 2. Start neurontin 100mg for your tingling and hand pain. 3. Please return to office in 1 month Barriers to learning identified: Yes Mr. Villanueva prefers verbal instructions to written. Patient verbalizes understanding and agrees with plan Yes I spent a total of 25 minutes in face to face time with this patient and 15 minutes of that time wasspent in counseling and coordination of care as described in the progress note. Major Turner MD 01/04/2014 7:31 Attestation statement: I saw and examined the patient with the resident/fellow. I agree with the findings and plan of care documented in the resident's/fellow's note. Major Turner MD 01/04/2014 7:31 documented in this encounter Plan of Treatment Upcoming Encounters Date Type Specialty Care Team Description 12/27/2021 Office Visit Hematology and Erin Barillas M D Oncology [address] [place] [phone] (Wo rk) 02/14/2022 Office Visit Hematology and Erin Barillas M D Oncology [address] [place] [phone] (Wo rk) 04/25/2022 Ancillary Procedure Cardiology 04/25/2022 Office Visit Cardiology Claire Lopez NP [address] [place] [phone] (Wo rk) 05/13/2022 Office Visit Rheumatology Tod Perez NP [address] [phone] (Wo rk) Scheduled Orders Name Type Priority Associated Diagnoses Order S chedule L SPINE 4 OR MORE Imaging Routine Left leg pain Ordered: 01/03/2014 VIEWS LBP (low back pain) documented as of this encounter Visit Diagnoses Diagnosis Inflammatory arthritis - Primary Unspecified inflammatory polyarthropathy Left leg pain Pain in limb LBP (low back pain) Lumbago documented in this encounter Discontinued Medications Medication Sig Discontinue Reason Start Date End Date acetaminophen (TYLENOL) Take 1 Tab by Therapy completed 04/10/2012 01/03/2014 650 mg tablet mouth every 4 hours as needed for Pain. documented as of this encounter Care Teams Color Receiver Relationship Specialty Start Date End Date Dereck Schultz MD PCP - General 10/19/08 02/12/[address] [place] [phone] documented as of this encounter
--- OUTSIDE RECORDS SUMMARY | 2021-12-21 01:24 | XMS_ITS | Encounter Summary ---
:1945 Author Organization [facility] Address [address] [place] [address] Care Team Providers Name Role Phone Dereck Schultz MD Primary Care Provider [phone] Reason for Visit Reason Comments Joint Pain right or left shoulder 1st h our in AM Medication Management ?instruction for tapering pr ednisone (cut down prednisone to 2.5 mg in AM, 5 mg in PM to not run out before getting insurance auth). ?cut down g abapentin Bruise left upper arm Encounter Details Date Type Department Care Team Description 09/20/2014 Office Visit [facility] Major Turner Inflam matory arthritis (Primary Dx); Rheumatology & MD LBP (low back pain); Immunology - Main Osteoarthr [address] [id number] Social History Tobacco Use Types Packs/Day Years [...] Sign Reading Time Taken Comments Blood Pressure 140/84 09/20/2014 1452 EDT Pulse 72 09/20/2014 1452 EDT Temperature - - Respiratory Rate - - Oxygen Saturation - - Inhaled Oxygen Concentration - - Weight - - Height - - Body Mass Index - - documented in this encounter Functional Status Cognitive Status Response Date of Assessment Because of a physical, mental, or emotional condition, do Ye s 04/08/2012 you have serious difficulty concentrating, remembering, or making decisions? (5 years old or older) documented as of this encounter Discharge Diagnoses Diagnosis 714.9 INFLAMM POLYARTHROP NOS[ICD-9-CM] 724.2 LUMBAGO[ICD-9-CM] 715.90 OSTEOARTHROS NOS-UNSPEC[ICD-9-CM] documented in this encounter Ordered Prescriptions Prescription Sig Dispensed Refills Start Date End Date predniSONE (DELTASONE) 1 tab twice a day for 60 Tab 5 06/29/2015 5 mg tablet inflammatory arthritis (714.9) documented in this encounter Progress Notes Major Turner MD - 09/20/2014 1502 EDT Division of Rheumatology and Clinical Immunology Chief Complaint Patient presents with ??? Joint Pain right or left shoulder 1st hour in AM ??? Medication Management ?instruction for tapering prednisone (cut down prednisone to 2.5 mg in AM, 5 mg in PM to not run out before getting insurance auth). ?cut down gabapentin ??? Bruise left upper arm HPI: Return visit for this 69-year-old male with a seronegative inflammatory arthropathy, lumbar spine degenerative facet joint arthropathy and degenerative disk disease, left lower extremity weakness. He is currently on immunosuppressive therapy with methotrexate 15 mg orally once a week and prednisone, the dose of which has now been reduced to 7.5 mg per day. He also continues on gabapentin 400 mg 3 times daily. He has not needed to take any hydrocodone now for the last 2 to 3 months as the pain in hisback and left leg, and in fact, the rest of his joints has been much improved. Currently, he has about 10 minutes of morning stiffness. He has occasional shoulder pain. Since my last visit with him, hehas had a flareup of his chronic rosacea. Current Outpatient Prescriptions Medication Sig Dispense Refill [...] daily. ??? predniSONE (DELTASONE) 5 mg tablet 1 tab twice a day for inflammatory arthritis (714.9) 60 Tab 5 ??? simvastatin (ZOCOR) 40 mg tablet Take [...] x Weight change x If yes, duration 10 min Gain or loss? Numbness/tingling x Eye discomfort [...] or depressed x Diarrhea x Skin rash/changes bruise Constipation x Sun induced rash x Itching x Hand/Foot color change w/cold x Hair Loss x PHYSICAL EXAMINATION: BP 140/84 Pulse 72 He is well appearing and in no distress. Skin reveals erythematous rash on the forehead and face with some pustules. Certainly, this looks to be consistent with rosacea. He has a few scattered ecchymoses on the upper extremities. No vasculitic lesions, purpura or petechiae are found. HEENT Exam: Oropharynx, no lesions. On joint exam, he has no swelling or tenderness in the DIP, PIP or MCP joints. Wrists, elbows, shoulders, hips, knees and ankles reveal no pain with passive motion. Mid foot and MTP joints are nontender. Strength is normal proximally and distally in the left lower extremity. LABS Phlebotomy Only on 07/26/2014 Component Date Value ??? Potassium 07/26/2014 4.4 ??? Sodium 07/26/2014 140 ??? Chloride 07/26/2014 103 ??? CO2 07/26/2014 27 ??? Total Alkaline Phosphata* 07/26/2014 56 ??? Bilirubin, Total 07/26/2014 0.7 ??? AST 07/26/2014 17 ??? ALT 07/26/2014 30 ??? Albumin 07/26/2014 4.2 ??? Total Protein 07/26/2014 6.6 ??? Creatinine 07/26/2014 1.02 ? ? GFR, Calculated 07/26/2014 >60 ??? BUN 07/26/2014 19 ??? Calcium 07/26/2014 9.6 ??? Calculated Calcium 07/26/2014 9.8 ??? Glucose, Serum 07/26/2014 118* ??? Fasting? 07/26/2014 YES ??? WBC 07/26/2014 8.75 ??? RBC 07/26/2014 5.02 ??? Hemoglobin 07/26/2014 15.1 ??? HCT 07/26/2014 45.5 ??? MCV 07/26/2014 91 ??? MCH 07/26/2014 30.0 ??? MCHC 07/26/2014 33.1 ??? RDW-CV 07/26/2014 16.6* ??? RDW-SD 07/26/2014 53.4* ??? Anisocytosis 07/26/2014 1+ ??? PLT 07/26/2014 196 ??? MPV 07/26/2014 9.8 ??? Neutrophils 07/26/2014 74.9 ??? Lymphocytes 07/26/2014 17.2 ??? Monocytes 07/26/2014 6.9 ??? Eosinophils 07/26/2014 0.7 ??? Basophils 07/26/2014 0.3 ??? ABS Neutrophils 07/26/2014 6.56 ??? ABS Lymphs 07/26/2014 1.51 ??? ABS Monocytes 07/26/2014 0.60 ??? ABS Eosinophils 07/26/2014 0.06 ??? ABS Basophils 07/26/2014 0.03 ??? Type of Diff: 07/26/2014 Automated Phlebotomy Only on 06/23/2014 Component Date Value [...] 0.05 ??? Type of Diff: 06/23/2014 Automated Imaging: Diagnosis / Assessment: 1. Seronegative inflammatory polyarthritis, which continues to improve. 2. Low back pain, which has also improved. 3. Lumbar spine degenerative disk disease, and facet joint degenerative arthropathy, symptomaticallyimproved. 4. Left lower extremity weakness, which has resolved. Recommendations/Evaluation: He will continue methotrexate 15 mg orally once a week. In 3 weeks, he will try reducing his prednisone from 7.5 mg daily to 5 mg a day, taking 2.5 mg with breakfast and supper. I recommended he continue gabapentin 400 mg t.i.d. He no longer needs the hydrocodone, and he, at this point, continues to steadily improve. Return visit in 3 months. Barriers to learning identified: No Patient verbalizes understanding and agrees with plan Yes Major Turner MD 09/20/2014 15:30 documented in this encounter Plan of Treatment Upcoming Encounters Date Type Specialty Care Team Description 12/27/2021 Office Visit Hematology and Erin Barillas M D Oncology [address] [facility], [facility] [address] [place] [address] (Wo rk) 02/14/2022 Office Visit Hematology and Erin Barillas M D Oncology [address] [facility] [address] [place] [address] (Wo rk) 04/25/2022 Ancillary Procedure Cardiology 04/25/2022 Office Visit Cardiology Claire Lopez NP [address] [facility] [address] [address] (Wo rk) 05/13/2022 Office Visit Rheumatology Tod Perez NP [address] [facility], [facility] [address] [place] [address] (Wo rk) documented as of this encounter Results (ABNORMAL) HEMAGRAM AND DIFFERENTIAL (09/20/2014 15:43 EDT) Pathologist [facility] nature WBC 7.10 4.0 - 10.4 K/cmm [facility] RBC 4.73 4.36 - 5.78 [facility] M/cm LABORATORY SERVICES Hemoglobin 14.7 13.8 - 17.3 [facility] gm/dl LABORATORY SERVICES HCT 43.7 39.5 - 50.2 % [facility] MCV 92 81 - 95 fl [facility] MCH 31.1 27.6 - 33.0 pg [facility] MCHC 33.7 32.8 - 36.4 [facility] gm/dl LABORATORY SERVICES RDW-CV 15.7 (H) 11.8 - 14.1 % [facility] RDW-SD 49.4 (H) 36.5 - 45.9 fl [facility] PLT 210 141 - 320 K/cmm [facility] MPV 9.7 7.5 - 11.2 fl [facility] Neutrophils 65.9 45.5 - 79.7 % [facility] Lymphocytes 24.7 15.0 - 46.8 % [facility] Monocytes 7.9 1.8 - 12.0 % [facility] Eosinophils 0.9 0.6 - 6.9 % [facility] Basophils 0.6 0.2 - 1.4 % [facility] ABS Neutrophils 4.68 2.20 - 8.85 [facility] K/[facility] ABS Lymphs 1.76 1.09 - 3.30 [facility] K/[facility] ABS Monocytes 0.56 0.1 - 0.8 K/[facility]ORATORY [facility] ABS Eosinophils 0.06 0.03 - 0.61 [facility] K/[facility] ABS Basophils 0.04 0.01 - 0.11 [facility] K/[facility] Type of Diff: Automated [facility] Specimen Blood specimen (specimen) - Blood Performing Organization Address City/State/[facility] Code Phon e Number [facility] [address] [place] [address] SERVICES (ABNORMAL) COMPREHENSIVE METABOLIC PANEL (CMP) (09/20/2014 15:43 EDT) Pathologist Sig nature Potassium 4.5 3.5 - 5.0 mEq/L [facility] Sodium 143 136 - 145 mEq/L [facility] Chloride 100 96 - 110 mEq/L [facility] CO2 30 24 - 32 mEq/L [facility] Total Alkaline 64 38 - 126 U/L [facility] Phosphatase LABORATORY SERVICES Bilirubin, Total 0.6 <1.4 mg/dl [facility] AST 22 15 - 46 U/L [facility] ALT 38 21 - 72 U/L [facility] Albumin 4.5 3.4 - 4.9 g/dl [facility] Total Protein 6.7 6.5 - 8.3 g/dl [facility] Creatinine 1.01 0.66 - 1.25 [facility] mg/dl LABORATORY SERVICES GFR, Calculated >60 >60 [facility] ml/min/1.73m2 [facility] SERVICES BUN 19 10 - 26 mg/dl [facility] Calcium 9.7 8.5 - 10.5 [facility] mg/dl LABORATORY SERVICES Calculated Calcium 9.6 8.5 - 10.5 [facility] mg/dl LABORATORY SERVICES Glucose, Serum 102 (H) 70 - 100 mg/dl [facility] Fasting? No [facility] Specimen Blood specimen (specimen) - Blood Performing Organization Address City/State/ZIP Code Phon e Number [facility] [address] [place] [address] SERVICES documented in this encounter Visit Diagnoses Diagnosis Inflammatory arthritis - Primary Unspecified inflammatory polyarthropathy LBP (low back pain) Lumbago Osteoarthritis Osteoarthrosis, unspecified whether gene ralized or localized, unspecified site documented in this encounter Discontinued Medications Medication Sig Discontinue Reason Start Date End Date predniSONE (DELTASONE) 5 1 tab twice a day Reorder 09/14/2014 09/20/2014 mg tablet documented as of this encounter Care Teams Digital Printer Operator Relationship Specialty Start Date End Date Dereck Schultz MD PCP - General 10/19/08 02/12/[address] [place] [id number] documented as of this encounter
--- OUTSIDE RECORDS SUMMARY | 2021-12-21 01:24 | XMS_ITS | Encounter Summary ---
:[address] [facility] Address [address] [place] [address] Care Team Providers Name Role Phone Dereck Schultz MD Primary Care Provider [phone] Reason for Referral Radiology Services (Routine) - Closed Specialty Diagnoses / Procedures Referred By Contact Refer red To Contact Diagnoses Pain in joint, ankle and foot Major Turner MD Procedures HAND 2 VIEWS [address] [place] [address] Referral ID Status Reason Start Date Expiration Date Visits Requ ested Visits Authorized [id number] Closed 09/15/2013 1 1 Reason for Visit Reason Comments Joint Pain back, neck, shoulder,hand,/ mostly left sided Numbness hands and feet Encounter Details Date Type Department Care Team Description 09/15/2013 Office Visit [facility] Major Turner, Pain i n joint, ankle and foot (Primary Dx); Rheumatology & MD CTS (carpal t unnel syndrome); Immunology - Main [facility] [place] [address] [place], [place] [id number] Social History Tobacco Use Types Packs/Day Years [...] Sign Reading Time Taken Comments Blood Pressure 144/74 09/15/2013 0932 EDT Pulse 74 09/15/2013 0932 EDT Temperature - - Respiratory Rate 16 09/15/2013 0932 EDT Oxygen Saturation - - Inhaled Oxygen Concentration - - Weight 101.6 kg (224 lb) 09/15/2013 0932 EDT Height 182.2 cm (5' 11.75) 09/15/2013 0932 EDT Body Mass Index 30.59 09/15/2013 0932 EDT documented in this encounter Functional Status Cognitive Status Response Date of Assessment Because of a physical, mental, or emotional condition, do Ye s 04/08/2012 you have serious difficulty concentrating, remembering, or making decisions? (5 years old or older) documented as of this encounter Discharge Diagnoses Diagnosis 719.47 JOINT PAIN-ANKLE[ICD-9-CM] 354.0 CARPAL TUNNEL SYNDROME[ICD-9-CM] 729.1 MYALGIA AND MYOSITIS NOS[ICD-9-CM] documented in this encounter Patient Instructions Patient InstructionsRanThony martinez DO - 09/15/2013 11:30 EDT 1. Continue the current dose of prednisone at 30 mg 2. Xrays and Lab work today 3. The EMG test--speak to the front office schedulers about that 4. Bring a CD at next visit of your xrays and CT scan 5. Come back to see us in 3 weeks documented in this encounter Progress Notes Thony Richey DO - 09/15/2013 1138 EDT Rheumatology Initial Patient Visit / Consultation 09/15/2013 Dereck Schultz MD Frank Meierdiercks, MD [address] [facility] [id number] Chief Complaint Patient presents with ??? Joint Pain back, neck, shoulder,hand,/ mostly left sided ??? Numbness hands and feet Age: 67 y.o. Sex: male HPI: Mr. Villanueva is a pleasant 67 year old male with a past medical history of BPH, NATALIE on CPAP, bradycardia s/p pacemaker, HTN, HLD, rosacea, and barett's esophagus who presents on referral from his PCP for question of polymyalgia rheumatica. He is accompanied by his . The patient relates that he was in his usual state of health until ~2 months ago when he developed bilateral shoulder discomfort. Shortly thereafter his symptoms localized to his left side with persistent left shoulder pain, left hand weakness, left hand swelling (causing pt to remove his ring), occasional left wrist pain. The patients notes significant functional impairement from this weakness, making it difficult for him to hold a coffee cup, work, or do chores. He also developed symptoms in his left lower extremity including hip pain, leg weakness and pain. The patient notes that his leg weakness makes it hard for him to get out of a chair and has required him to pick up man his leg with his hands to get out of his truck. His leg pain is described as achy, numbness, tingling. It wakes the pt up from his sleep several times/night and resolves within a few minutes. He does endorse significant AM stiffness, lasting for 30 minutes and improved after a shower. He denies any spasms, worm like movement in his hand or otherwise. He also denies other focal joint pain or joint swelling. He was seen by his PCP who ordered several imagining studies that we have not been able to directly visualize including a shoulder xray (the interpretation of which we do not have), a CT of the cervical spine which was notable for DJD with mild to moderate narrowing of the foramen on R. C3-C5 and L. C4-C5. An Xray of the Pelvis and left hip was noable for minimal degerative changes. Labs studies include Rheumatoid Factor <20, ESR 22, CRP 1.66, CK 66 and a normal BMP/CBC/Calcium.Approximately 2 weeks ago the patient was put on 40 mg of prednisone daily and is currently on 30 mg. He notes improvement within 24-36 hours of beginning the steroids. ROS: a 12 point ROS was performed and is negative unless noted below Chronic hearing loss Mild non productive chronic cough Hematuria @ CDL physical but none following 2 repeats at PCP. Social: , 3 children. 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 30 pack yr tobacco history, quit 1980 1 beer/week No Drugs Family History: Mother: arthritis NOS causing hand disfigurement Father: DM Brother: DM Current Outpatient Prescriptions Medication Sig Dispense Refill [...] facility-administered medications for this visit. Allergies include: Lisinopril--Causes chest pain Past Medical History Diagnosis Date ??? 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 Overweight BP 144/74 Pulse 74 Resp 16 Ht 182.2 cm (71.75) Wt 101.606 kg (224 lb) BMI 30.61 kg/m2 HEENT: NCAT. MMM. No oral lesion. Mild submandibular adenopathy Bilat, no thyromegally Lungs: CTA (b) Heart: s1/s1. 1/6 MAC over RUSB Abd: S/NT/ND. No organomegally. Ext: Pronounced bilateral varicosities MSK: -Unable to rise from chair without using hands -Shoulder: Strength 5/5 (b). R. Shoulder/Trap region much more elevated than left at baseline.Left shoulder with decreased internal rotation and abduction. Negative neers and empty can test. -Upper extremity reflexes: Symmetric, 2+ biceps, triceps, brachioradialis -Wrist: pain on flexion and extension of left wrist -Hand: No synovitis, erythema, bony deformity -Hand sensation: subjectively decreased over entire left hand compared with right. 2 point discrimination much impaired on left compared with right. : + tinnel/phalen on left. Negative kenney.No atrophy or fasiculations -Hand Strength:Full on Right. Markedly diminished on left. Unable to completely close fist. -Legs: Bilateral strength 5/5 (B). Patellar reflexes 2+ Bilaterally. Achiles 1+ (B). Toes downgoing on babinski test.Left hip pain on external rotation. LABS: As mentioned in HPI Imaging: As mentioned in HPI Diagnosis / Assessment: 67 year old male in relatively good health with almost entirely left sided weakness associated with sensory and motor deficits and wrist pain who responded to steroids. The picture here is not clear given the uniaterality and unimpressive lab findings. DDX includes hypothyroidism, early rheumatoid arthritis, polymyalgia rheumatica, multiple myeloma, MS, or a confluence of symptoms associated with chronic shoulder impingement and some element of wrist inflammation causing irritation in wrist sheath. Suspect carpal tunnel syndrome in left hand Recommendations/Evaluation: 1. Imaging: hand xray today. Pt to bring original images of shoulder and hip and neck at next visit 2. Continue steroids at 30 mg. No taper for now. 3. Labs today: AMOL, ESR, CRP, CCP, TSH, serum protein electropheresis 4. Return in 3 weeks; EMG has been requested Patient seen and examined with Dr. Turner. Thony Richey DO 09/15/2013 11:39 Attestation statement: I saw and examined the patient with the resident/fellow. I agree with the findings and plan of care documented in the resident's/fellow's note. Major Turner MD 09/16/2013 8:10 documented in this encounter Plan of Treatment Upcoming Encounters Date Type Specialty Care Team Description 12/27/2021 Office Visit Hematology and Erin Barillas M D Oncology [address] [facility], [facility] [address] [place] [address] (Wo rk) 02/14/2022 Office Visit Hematology and Erin Barillas M D Oncology [address] [facility] [address] [place] [address] (Wo rk) 04/25/2022 Ancillary Procedure Cardiology 04/25/2022 Office Visit Cardiology Claire Lopez NP [address] [facility] [address] [place] [address] (Wo rk) 05/13/2022 Office Visit Rheumatology Tod Perez NP [address] [facility], [address] [place] [address] (Wo rk) documented as of this encounter Procedures Procedure Name Priority Date/Time Associated Diagnosis Comme nts PATHOLOGY - SCANNED 09/16/2013 14:00 EDT HAND 2 VIEWS Routine 09/15/2013 11:49 Pain in joint, ankle Res ults for this EDT and foot procedure are i n the results section. documented in this encounter Results PATHOLOGY - SCANNED (09/16/2013 14:00 EDT) Specimen Narrative This result has an attachment that is no t available. SED. RATE:WESTERGREN (09/15/2013 11:57 EDT) Pathologist Sig nature Sed. Rate Westergren 4 0 - 20 mm/hr [facility] Specimen Blood specimen (specimen) Performing Organization Address City/[facility]/[place] [facility] [place] [facility] [address] [place] [address] SERVICES [facility] [address] [place] [address] C-REACTIVE PROTEIN (09/15/2013 11:57 EDT) Pathologist Sig nature C-Reactive Protein 0.8 <1.0 mg/dl [facility] Specimen Blood specimen (specimen) Performing Organization Address [facility] Phon e Number [facility] [address] [place] [address] SERVICES [facility] [address] [place] [address] (ABNORMAL) COMPREHENSIVE METABOLIC PANEL (CMP) (09/15/2013 11:57 EDT) Potassium 4.9 3.5 - 5.0 [facility] mEq/L LAB Sodium 140 136 - 145 [facility] mEq/L LAB Chloride 102 96 - 110 mEq/L [facility] CO2 24 24 - 32 mEq/L [facility] Total Alkaline 77 38 - 126 U/L [facility] Phosphatase LAB Bilirubin, Total 0.6 <1.4 mg/dl [facility] AST 18 15 - 46 U/L [facility] ALT 39 21 - 72 U/L [facility] Albumin 4.7 3.4 - 4.9 g/dl [facility] Total Protein 7.4 6.5 - 8.3 g/dl [facility] Creatinine 0.92 0.66 - 1.25 [facility] mg/dl LAB GFR, Calculated Not calculated >60 [facility] ml/min/1.73m2 LAB BUN 20 10 - 26 mg/dl [facility] Calcium 9.8 8.5 - 10.5 [facility] mg/dl LAB Calculated Calcium 9.5 8.5 - 10.5 [facility] mg/dl LAB Glucose, Serum 138 (H) 70 - 100 mg/dl [facility] Fasting? Unknown [facility] Specimen Blood specimen (specimen) Performing Organization Address City/[facility]/ZIP Code Phon e Number [facility] [address] [place] [address] SERVICES [facility] [address] [place] [address] ELECTROPHORESIS, SERUM (09/15/2013 11:57 EDT) Total Protein [...] Specimen Blood specimen (specimen) Performing Organization Address [facility]/[place] [facility] [place] [facility] [address] [place] [address] SERVICES [facility] [address] [place] [address] TSH (09/15/2013 11:57 EDT) Pathologist Sig nature TSH 0.38 0.35 - 5.00 uIU/ml [facility] Specimen Blood specimen (specimen) Performing Organization Address City/[facility]/ZIP Code Phon e Number [facility] [address] [place] [address] SERVICES [facility] [address] [place] [address] CCP ANTIBODIES (09/15/2013 11:57 EDT) Pathologist Sig nature CCP Antibodies <2.5 <5.0 U/mL [facility] Specimen Performing Organization Address City/[facility]/ZIP Code Phon e Number [facility] [address] [place] [address] SERVICES [facility] [address] [place] [address] HAND 2 VIEWS (09/15/2013 11:49 EDT) Anatomical Region Laterality Modality Other Specimen Narrative [facility] - 09/15/2013 16:34 EDT HAND 2 VIEWS ??09/15/2013 11:49 AM Signs and Symptoms/Comments: ??719.47-Pa in in joint, ankle and [id number]; hand pain. Comparisons: None. Technique: PA and AP ball-catcher's view of the left hand. Findings: Osteoarthritic degenerative changes are evident within the triscaphe joint with asymmetric joint space loss, subchondral sclerosis and osteophytes present. Mild degenerative c hanges are evident in the 1st MCP and carpometacarpal joint spaces. Ad ditional mild osteoarthrosis is present throughout the DIP joints. Th e remainder of the joint spaces are relatively preserved. The ove rlying soft tissues are unremarkable. 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 Procedure Note 09/15/2013 HAND 2 VIEWS 09/15/2013 11:49 AM Signs and Symptoms/Comments: 719.47-Pain in joint, ankle and [id number]; hand pain. Comparisons: None. Technique: PA and AP ball-catcher's view of the left hand. Findings: Osteoarthritic degenerative changes are evident within the triscaphe joint with asymmetric joint space loss, subchondral sclerosis and osteophytes present. Mild degenerative c hanges are evident in the 1st MCP and carpometacarpal joint spaces. Ad ditional mild osteoarthrosis is present throughout the DIP joints. Th e remainder of the joint spaces are relatively preserved. The ove rlying soft tissues are unremarkable. 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 Performing Organization Address City/State/ZIP Code Phon e Number [facility] documented in this encounter Visit Diagnoses Diagnosis Pain in joint, ankle and foot - Primary CTS (carpal tunnel syndrome) Carpal tunnel syndrome Muscle pain Mylagia and myositis, unspecified documented in this encounter Discontinued Medications Medication Sig Discontinue Reason Start Date End Date lisinopril (PRINIVIL, Take 10 mg by mouth Formulary change 09/15/2013 ZESTRIL) 10 mg tablet daily. documented as of this encounter Historical Medications This list may reflect changes made after this encounter. Medication Sig Dispensed Refills Start Date End Date PREDNISONE ORAL Take 20 mg by mouth daily 20 mg alt with 10 mg. 0 02/07/2014 HYDROcodone-acetaminophen Take 2 Tabs by mouth 0 03/29/2015 (VICODIN) 5-300 mg tablet at bedtime. ibuprofen (MOTRIN) 200 mg Take 200 mg by mouth 0 12/15/2020 tablet every 6 hours as needed for Pain. metoprolol (LOPRESSOR) 25 Take 25 mg by mouth 0 11/17/2019 mg tablet daily. added in this encounter Care Teams Senior Project Leader/Team Lead Relationship Specialty Start Date End Date Dereck Schultz MD PCP - General 10/19/08 02/12/[address] [place] [phone] documented as of this encounter
--- OUTSIDE RECORDS SUMMARY | 2021-12-21 01:24 | XMS_ITS | Encounter Summary ---
:1945 Author Organization [facility] Address [address] [place] [address] Care Team Providers Name Role Phone Dereck Schultz MD Primary Care Provider [phone] Reason for Visit Reason Comments Other Encounter Details Date Type Department Care Team Description 12/03/2014 [facility] Rheumatology & YueMajor winkler MD Other Immunology - Main [facility] [address] [place] [address] Social History Tobacco Use Types [...] and Erin Barillas M D Oncology [address] [facility] [address] [place] [address] (Wo rk) 02/14/2022 Office Visit Hematology and Erin Barillas M D Oncology [address] [facility] [address] [place] [phone] (Wo rk) 04/25/2022 Ancillary Procedure Cardiology 04/25/2022 Office Visit Cardiology Claire Lopez NP [address] [facility] [address] [place] [address] (Wo rk) 05/13/2022 Office Visit Rheumatology Tod Perez NP [address] [facility], [facility] [address] [place] [address] (Wo rk) documented as of this encounter Visit Diagnoses Not on filedocumented in this encounter Care Teams Fire Tender Relationship Specialty Start Date End Date Dereck Schultz MD PCP - General 10/19/08 02/12/[address] [place], [place] [address] [place] [phone] documented as of this encounter
--- OUTSIDE RECORDS SUMMARY | 2021-12-21 01:24 | XMS_ITS | Encounter Summary ---
:1945 Author Organization [facility] Address [address] [place] [address] Care Team Providers Name Role Phone Dereck Schultz MD Primary Care Provider [phone] Reason for Visit Reason Comments Follow-up inflammatory arthritis Encounter Details Date Type Department Care Team Description 03/29/2015 Office Visit [facility] Marie Stanford arthritis (Primary Dx); Rheumatology & M, PA-C Chronic low back pain; Immunology - Main [address] Riley for long-term (current) use of medications [place] [address] [place], [place] [id number] Social History Tobacco Use Types Packs/Day Years [...] Sign Reading Time Taken Comments Blood Pressure 160/80 03/29/2015 0858 EDT Pulse 74 03/29/2015 0858 EDT Temperature - - Respiratory Rate 16 03/29/2015 0858 EDT Oxygen Saturation - - Inhaled Oxygen Concentration - - Weight 112.5 kg (248 lb) 03/29/2015 0858 EDT Height 183.5 cm (6' 0.25) 03/29/2015 0858 EDT Body Mass Index 33.4 03/29/2015 0858 EDT documented in this encounter Functional Status Functional Status Response Date of Assessment Because of a physical, mental, or emotional condition, No 03/29/2015 does this person have difficulty doing errands alone such as visiting a doctor's office or shopping? Cognitive Status Response Date of Assessment Because of a physical, mental, or emotional condition, No 03/29/2015 does this person have serious difficulty concentrating, remembering, or making decisions? documented as of this encounter Discharge Diagnoses Diagnosis M06.4 Inflammatory polyarthropathy-M06.4 [ICD-10-CM] Z79.899 Other long term care phlebotomist (current) drug t herapy-Z79.899[ICD-10-CM] documented in this encounter Patient Instructions Patient InstructionsMarie Stanford PA - 03/29/2015 9:47 EDT Please stop downstairs for labs today (2nd floor). As long as your labs look ok I would like you to increase Methotrexate to 8 tabs (20 mg) once weeklyto better control your arthritis. Please have labs repeated in 1 month then every 2-3 months thereafter to monitor Methotrexate. I would also like you to try tapering Prednisone again but slower this time. Start by dropping down to 4 mg daily for 1 month. If doing ok you can continue to wean by 1 mg every month as tolerated. Please let me know if you have any problems tapering Prednisone. Otherwise I will plan to follow up with you in 3 months. documented in this encounter Ordered Prescriptions Prescription Sig Dispensed Refills Start Date End Date predniSONE (DELTASONE) 1 Decrease Prednisone 120 Tab 2 12/27/2015 mg tablet to 4 mg daily for 1 month then slowly taper by 1 mg every month as tolerated methotrexate 2.5 mg Take 8 Tabs by mouth 96 Tab 1 201406/29/2015 tablet once a week documented in this encounter Progress Notes Marie Stanford PA - 03/29/2015 0938 EDT Images from the original note were not included. Division of Rheumatology and Clinical Immunology Chief Complaint Patient presents with ??? Follow-up inflammatory arthritis HPI: Mr. Praneeth Villanueva is a 69 y.o. male here for follow up of seronegative inflammatory polyarthritis. 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 Last seen in clinic ~3 months ago. Changes since last visit: Stopped Gabapentin without change in low back pain. Has also been taperingPrednisone. Got down to 2.5 mg daily but then developed pain and swelling in left hand so went back up to 5 mg daily with good response and has been fine since. Affected joints: Denies current joint pain or swelling. No significant AM stiffness. Physical activity: Stays active around the house Functional Limitations: None identified Current Outpatient Prescriptions Medication Sig Dispense Refill ??? aspirin chewable 81 mg tablet Take 81 mg by mouth daily. ??? finasteride (PROSCAR) 5 mg tablet Take 5 mg by mouth daily. ??? folic acid (FOLVITE) 1 mg tablet Take 1 Tab by mouth daily 100 Tab 3 ??? ibuprofen (MOTRIN) 200 mg tablet Take 200 mg by mouth every 6 hours as needed for Pain. Only as needed. Maybe once or twice per month. ??? LACTOBACILLUS ACIDOPHILUS (PROBIOTIC ORAL) Take by mouth daily ??? methotrexate 2.5 mg tablet Take 6 Tabs by mouth once a week Tolerates ok without reported side effects. No recent infections. All ready got a flu shot. 72 Tab 3 ??? metoprolol (LOPRESSOR) 25 mg tablet Take 25 mg by mouth daily. ??? omeprazole (PRILOSEC) 20 mg capsule Take 20 mg by mouth daily. ??? predniSONE (DELTASONE) 5 mg tablet 1 tab twice a day for inflammatory arthritis (714.9) (Patienttaking differently: Take 5 mg by mouth daily 1 tab twice a day for inflammatory arthritis (714.9) Currently taking 5 mg daily. 60 Tab 5 ??? simvastatin (ZOCOR) 40 mg tablet Take 40 mg by mouth every evening. Allergies include: Lisinopril Past Medical History Diagnosis Date ??? GERD (gastroesophageal reflux disease) ??? Cataract bilateral ??? Biliary colic ??? Hypercholesteremia ??? Enlarged prostate ??? Inguinal hernia bilateral ??? Hypertension ??? Sleep apnea weaing cpap ??? Pacemaker ??? 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 Cholecystectomy 2005 ??? Cataract removal bilateral ??? Hernia repair Family History Problem Relation Age of Onset ??? Diabetes Father ??? Diabetes Brother ??? Arthritis Mother unkown type History Substance Use Topics ??? Smoking status: Former Smoker -- 3.00 packs/day for 20 years Types: Cigarettes, Cigars Quit date: 09/15/1980 ??? Smokeless tobacco: Never Used Comment: Quit >30 years ago ??? Alcohol Use: Yes Comment: Occasional beer REVIEW OF SYSTEMS: As documented by Nurses/MAs during this visit and reviewed by me (LISSA). PHYSICAL EXAMINATION: Constitutional: Pleasant, well developed, well nourished male in no acute distress. BP 160/80 mmHg Pulse 74 Resp 16 Ht 183.5 cm (72.25) Wt 112.492 kg (248 lb) BMI 33.41 kg/m2 HEENT: PERRL, EOM's intact, no occular inflammation. Oropharynx clear, throat normal without erythema or exudate, no oral ulcers. No lymphadenopathy. RESPIRATORY: Some wheezing present. CARDIOVASCULAR: Regular rate and rhythm, normal S1S2, no murmurs/gallops/rubs. NEUROLOGIC: Mental status normal. Gait normal without assistive device. Moves on/off exam table independently. Muscle strength not formally assessed but moving all extremities against gravity. MUSCULOSKELETAL: A complete msk exam including bilateral upper and lower extremities was done and was normal except for abnormal findings shown on homonculus. RAPID3 Score: As documented by Nurses/MAs during this visit and reviewed by me (LISSA). LABS: Obtained externally on 12/19/14 - CMP: Glucose marked as elevated (108) but no mention of fasting status, otherwise normal CBC with diff not done Imaging: None recent Impression/Plan: Seronegative inflammatory arthritis. Doing better on Methotrexate but still unable to taper off Prednisone. Will increase Methotrexate dose for better control and try a slower Prednisone taper. 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 Seems to be managing ok off Gabapentin. Continue NSAID as needed. Could always restart Gabapentin if symptoms worsen. Encounter for intermediate use of medication. Due for labs. Patient Instructions Please stop downstairs for labs today (2nd floor). As long as your labs look ok I would like you to increase Methotrexate to 8 tabs (20 mg) once weeklyto better control your arthritis. Please have labs repeated in 1 month then every 2-3 months thereafter to monitor Methotrexate. I would also like you to try tapering Prednisone again but slower this time. Start by dropping down to 4 mg daily for 1 month. If doing ok you can continue to wean by 1 mg every month as tolerated. Please let me know if you have any problems tapering Prednisone. Otherwise I will plan to follow up with you in 3 months. Barriers to learning identified: No Patient verbalizes understanding and agrees with plan: Yes I was supervised by Dr. Sahu who was in the suite and immediately available for the entire time the service was provided. ALMA Bills 03/29/2015 9:38 I was available during the encounter. Gokul Sahu MD 03/31/2015 10:10 Jazmyne Jama - 03/29/2015 0856 EDT REVIEW OF SYSTEMS: Yes No Yes No Fever X Joint pain x Weight gain or loss pounds (lbs) Duration of AM joint stiffness hours / min Eye pain or dryness X Numbness/tingling X Mouth or nose sores X Heart burn / Nausea X Chest pain x Diarrhea x Shortness of Breath X Blood in stool x Cough x Burning on urination X Skin rash X Hand/Foot color change in cold X RAPID3 SCORE Over the last week were you able to: a. Dress yourself including tying shoelaces / doing buttons? 0 0 = Without ANY difficulty 1 = With SOME difficulty 2 = With MUCH difficulty 3 = UNABLE to do Conversion scale: 1=0.3 2=0.7 3=1.0 4=1.3 5=1.7 6=2.0 7=2.3 8=2.7 9=3.0 10=3.3 11=3.7 12=4.0 13=4.3 14=4.7 15=5.0 16=5.3 17=5.7 18=6.0 19=6.3 20=6.7 21=7.0 22=7.3 23=7.7 24=8.0 25=8.3 26=8.7 27=9.0 28=9.3 29=9.7 30=10 b. Get in and out of bed? 0 c. Lift a full cup or glass to your mouth? 0 d. Walk outdoors on flat ground? 0 e. Wash and dry your entire body? 0 f. Bend down to oyster picker clothing from the floor? 1 g. Turn regular faucets on and off? 0 h. Get in and out of a car, bus, train or airplane? 1 i. Walk two miles or three kilometers, if you wish? 2 j. Participate in recreational activities/sports, if you wish? 3 TOTAL = 7 FUNCTION (FN) (Use conversion scale) = 2.3 (Use conversion scale above) Get a good night???s sleep? 0 0 = Without ANY difficulty (0.0) 1 = With SOME difficulty (1.1) 2 = With MUCH difficulty (2.2) 3 = UNABLE to do (3.3) Deal with feelings of anxiety or being nervous? 0 Deal with feelings of depression or feeling blue? 0 PAIN (PN) = 1.5 0-10 PATIENT GLOBAL (PTGE) = 0 0-10 RAPID3 SCORE (FN + PN + PTGE) = 3.8 0-30 HS: > 12 MS: 6.1 - 12 LS: 3.1 - 6 NR: ? 3 documented in this encounter Plan of Treatment Upcoming Encounters Date Type Specialty Care Team Description 12/27/2021 Office Visit Hematology and Erin Barillas M D Oncology [address] [place] [phone] (Wo rk) 02/14/2022 Office Visit Hematology and Erin Barillas M D Oncology [address] [phone] (Wo rk) 04/25/2022 Ancillary Procedure Cardiology 04/25/2022 Office Visit [facility] [address] [place] [phone] (Wo rk) 05/13/2022 Office Visit Rheumatology Tod Perez NP 111 [facility] [address] [place] [address] (Wo rk) documented as of this encounter Visit Diagnoses Diagnosis Inflammatory arthritis - Primary Unspecified inflammatory polyarthropathy Chronic low back pain Lumbago Encounter for long-term (current) use of medications Encounter for long-term (current) use of other medications documented in this encounter Discontinued Medications Medication Sig Discontinue Reason Start Date End Date gabapentin (NEURONTIN) 400 Take 400 mg by Therapy completed 03/29/2015 mg capsule mouth daily HYDROcodone-acetaminophen Take 2 Tabs by Therapy completed 03/29/2015 (VICODIN) 5-300 mg tablet mouth at bedtime. methotrexate 2.5 mg tablet Take 6 Tabs by Reorder 12/19/2014 03/29/2015 mouth once a week documented as of this encounter Historical Medications This list may reflect changes made after this encounter. Medication Sig Dispensed Refills Start Date End Date LACTOBACILLUS ACIDOPHILUS Take by mouth 0 05/10/2019 (PROBIOTIC ORAL) daily added in this encounter Care Teams Game Farm Helper Relationship Specialty Start Date End Date Dereck Schultz MD PCP - General 10/19/08 02/12/17 [address] [place] [phone] documented as of this encounter
--- OUTSIDE RECORDS SUMMARY | 2021-12-21 01:24 | XMS_ITS | Encounter Summary ---
:1945 Author Organization [facility] Address [address] [place] [address] Care Team Providers Name Role Phone Dereck Schultz MD Primary Care Provider [phone] Encounter Details Date Type Department Care Team Description 07/26/2014 Phlebotomy Only [facility] Mechanic And Welder, Darrick herrera arthritis; - [facility] Outpatient Pain in joint, ankle and johanna t; [address] [facility] LBP (low back pain) [place] [address] Social History Tobacco Use Types Packs/Day Years [...] Barillas M D Oncology 111 [facility], [facility], [address] [place] [address] (Wo rk) 02/14/2022 Office Visit Hematology and Erin Barillas M D Oncology 111 [facility], [facility], [facility] 2 [place] [phone] (Wo rk) 04/25/2022 Ancillary Procedure Cardiology 04/25/2022 Office Visit Cardiology Claire Lopez NP [facility] [address] [place] [phone] (Wo rk) 05/13/2022 Office Visit Rheumatology Tod Perez NP 111 [facility], [facility] 5 [place] [address] (Wo rk) documented as of this encounter Procedures Procedure Name Priority Date/Time Associated Diagnosis Comme nts COMPLETE BLOOD COUNT Routine 07/26/2014 15:06 Inflammatory Res ults for this AND DIFFERENTIAL EST arthritis procedure are in Pain in joint, ankle the res ults and foot section. LBP (low back pain) COMPREHENSIVE Routine 07/26/2014 15:06 Inflammatory Results fo r this METABOLIC PANEL (CMP) EST arthritis procedure are in Pain in joint, ankle the res ults and foot section. LBP (low back pain) documented in this encounter Results (ABNORMAL) HEMAGRAM AND DIFFERENTIAL (07/26/2014 15:06 EST) Pathologist Sig nature WBC 8.75 4.0 - 10.4 K/cmm [facility] LABORATORY SERVICES RBC 5.02 4.36 - 5.78 [facility] M/cm LABORATORY SERVICES Hemoglobin 15.1 13.8 - 17.3 [facility] gm/dl LABORATORY SERVICES HCT 45.5 39.5 - 50.2 % [facility]OR[facility]ORY SERVICES MCV 91 81 - 95 fl [facility] SERVICES MCH 30.0 27.6 - 33.0 pg [facility]OR[facility]ORY SERVICES MCHC 33.1 32.8 - 36.4 [facility] gm/dl LABORATORY SERVICES RDW-CV 16.6 (H) 11.8 - 14.1 % [facility] LABOR[facility]ORY SERVICES RDW-SD 53.4 (H) 36.5 - 45.9 fl [facility] SERVICES Anisocytosis 1+ [facility] LABORATORY SERVICES PLT 196 141 - 320 [facility] MPV 9.8 7.5 - 11.2 fl [facility] SERVICES Neutrophils 74.9 45.5 - 79.7 % [facility] SERVICES Lymphocytes 17.2 15.0 - 46.8 % [facility] SERVICES Monocytes 6.9 1.8 - 12.0 % [facility] SERVICES Eosinophils 0.7 0.6 - 6.9 % [facility] SERVICES Basophils 0.3 0.2 - 1.4 % [facility] LABORATORY SERVICES ABS Neutrophils 6.56 2.20 - 8.85 [facility] ABS Lymphs 1.51 1.09 - 3.30 [facility] LAB[facility]ATORY SERVICES ABS Monocytes 0.60 0.1 - 0.8 K/[facility] LABORATORY SERVICES ABS Eosinophils 0.06 0.03 - 0.61 [facility] LABORATORY SERVICES ABS Basophils 0.03 0.01 - 0.11 [facility] LAB[facility]ATORY SERVICES Type of Diff: Automated [facility]OR[facility]ORY SERVICES Specimen Blood specimen (specimen) - Blood Performing Organization Address City/State/ZIP Code Phon e Number [facility] LABOR[facility]ORY [address] [place] [address] SERVICES (ABNORMAL) COMPREHENSIVE METABOLIC PANEL (CMP) (07/26/2014 15:06 EST) Pathologist Sig nature Potassium 4.4 3.5 - 5.0 mEq/L [facility] SERVICES Sodium 140 136 - 145 mEq/L [facility] SERVICES Chloride 103 96 - 110 mEq/L [facility]ATORY SERVICES CO2 27 24 - 32 mEq/L [facility]ORY SERVICES Total Alkaline 56 38 - 126 U/L [facility] Phosphatase LABORATORY SERVICES Bilirubin, Total 0.7 <1.4 mg/dl [facility] LABORATORY SERVICES AST 17 15 - 46 U/L [facility] LABORATORY SERVICES ALT 30 21 - 72 U/L [facility]ORY SERVICES Albumin 4.2 3.4 - 4.9 g/dl [facility]ORY SERVICES Total Protein 6.6 6.5 - 8.3 g/dl [facility]ORY SERVICES Creatinine 1.02 0.66 - 1.25 [facility] mg/dl LABORATORY SERVICES GFR, Calculated >60 >60 [facility] ml/min/1.73m2 LABORATORY SERVICES BUN 19 10 - 26 mg/dl [facility]ORY SERVICES Calcium 9.6 8.5 - 10.5 [facility] mg/dl LABORATORY SERVICES Calculated Calcium 9.8 8.5 - 10.5 [facility] mg/dl LABORATORY SERVICES Glucose, Serum 118 (H) 70 - 100 mg/dl [facility] LABORATORY SERVICES Fasting? YES [facility] SERVICES Specimen Blood specimen (specimen) - Blood Performing Organization Address City/State/ZIP Code Phon e Number [facility]ORY [address] [place] [address] SERVICES documented in this encounter Visit Diagnoses Diagnosis Inflammatory arthritis Unspecified inflammatory polyarthropathy Pain in joint, ankle and foot LBP (low back pain) Lumbago documented in this encounter Care Teams Carpet Layer Relationship Specialty Start Date End Date Dereck Schultz MD PCP - General 10/19/08 02/12/[address] [place] [address] documented as of this encounter
--- OUTSIDE RECORDS SUMMARY | 2021-12-21 01:24 | XMS_ITS | Encounter Summary ---
:1945 Author Organization [facility] Address [address] [place] [address] Care Team Providers Name Role Phone Dereck Schultz MD Primary Care Provider [phone] Reason for Visit Reason Onset Date Comments Labs Only 12/19/2014 STAT add on Encounter Details Date Type Department Care Team Description 12/19/2014 Telephone [facility] Marie Stanford, Lab s Only (STAT add on Rheumatology & PA-C ) Immunology - Main [place] [address]ES [place] [id number] [place] [address] [place] [address] Social History Tobacco Use Types Packs/Day Years [...] this encounter Miscellaneous Notes Telephone Encounter - Desire Adrian RN - 12/20/2014 0848 EDT Spoke with lab. The add on was entered for external and faxed to hospital in [facility]. Lab techverbalized understanding. elephone Encounter - Krista Mahan - 12/19/2014 1700 EDT Reason for Call: Labs Only Summary/Symptoms: Lab unable to complete STAT add on CMP, as no sample submitted. Krista Mahan 12/19/2014 17:00 documented in this encounter Plan of Treatment Upcoming Encounters Date Type Specialty Care Team Description 12/27/2021 Office Visit Hematology and Erin Barillas M D Oncology [address] [phone] (Wo rk) 02/14/2022 Office Visit Hematology and Erin Barillas M D Oncology [address] [phone] (Wo rk) 04/25/2022 Ancillary Procedure Cardiology 04/25/2022 Office Visit Cardiology Claire Lopez NP 130 [facility] [address] [place] [phone] (Wo rk) 05/13/2022 Office Visit Rheumatology Tod Perez NP 111 [facility] 5 [place] [address] (Wo rk) documented as of this encounter Visit Diagnoses Not on filedocumented in this encounter Care Teams Tattoo Artist Relationship Specialty Start Date End Date Dereck Schultz MD PCP - General 10/19/08 02/12/[address] [place] [phone] documented as of this encounter
--- OUTSIDE RECORDS SUMMARY | 2021-12-21 01:24 | XMS_ITS | Encounter Summary ---
:1945 Author Organization [facility] Address [address] [place] [address] Care Team Providers Name Role Phone Dereck Schultz MD Primary Care Provider [phone] Reason for Visit Reason Onset Date Comments Medications Refill 12/03/2014 Encounter Details Date Type Department Care Team Description 12/03/2014 Refill [facility] Major Turner MD Med [facility] Refill Rheumatology & Immunology - [facility] [address] [place], [place] [id number] Social History Tobacco Use Types Packs/Day Years [...] Start Date End Date methotrexate 2.5 mg 6 tablets once a 24 Tab 0 12/05/2014 12/19/2014 tablet week gabapentin (NEURONTIN) Take 1 Cap by mouth 90 Cap 0 11/1512/19/2014 400 mg capsule 3 times daily documented in this encounter Miscellaneous Notes Telephone Encounter - Zari Mccabe RN - 12/05/2014 0840 EDT From: Praneeth Villanueva To: Major Turner MD Sent: 12/03/2014 13:17 EDT Subject: Medication Renewal Request Original authorizing provider: MD Praneeth Odom would like a refill of the following medications: gabapentin (NEURONTIN) 400 mg capsule [Major Turner MD] methotrexate 2.5 mg tablet [Major Turner MD] [facility]: [facility] [place] [address] Comment: documented in this encounter Plan of Treatment Upcoming Encounters Date Type Specialty Care Team Description 12/27/2021 Office Visit Hematology and Erin Barillas M D Oncology [address] [phone] (Joi diallo) 02/14/2022 Office Visit Hematology and Erin Barillas M D Oncology [address] [phone] (Joi diallo) 04/25/2022 Ancillary Procedure Cardiology 04/25/2022 Office Visit Cardiology Claire Lopez NP 130 [facility] [address] [phone] (Joi rk) 05/13/2022 Office Visit Rheumatology Tod Perez NP [address] [phone] (Joi rk) documented as of this encounter Visit Diagnoses Not on filedocumented in this encounter Discontinued Medications Medication Sig Discontinue Reason Start Date End Date gabapentin (NEURONTIN) Take 1 Cap by mouth Reorder 06/06/2014 12/05/2014 400 mg capsule 3 times daily. methotrexate 2.5 mg 6 tablets once a Reorder 06/23/201411/15 tablet week. documented as of this encounter Care Teams Sewing Pattern Layout Technician Relationship Specialty Start Date End Date Dereck Schultz MD PCP - General 10/19/08 02/12/[address] [place] [phone] documented as of this encounter
--- OUTSIDE RECORDS SUMMARY | 2021-12-21 01:24 | XMS_ITS | Encounter Summary ---
:1945 Author Organization [facility] Address [address] [place] [address] Care Team Providers Name Role Phone Dereck Schultz MD Primary Care Provider [phone] Reason for Visit Reason Comments Follow-up inflammatory arthritis; no n ew issues Encounter Details Date Type Department Care Team Description 06/29/2015 Office Visit [facility] Marie Stanford arthritis (Primary Dx); Rheumatology & M, PADomingaC Encounter for long-term (current) use of medications Immunology - Main [address] [facility] [address] [phone] Social History Tobacco Use Types Packs/Day Years [...] Sign Reading Time Taken Comments Blood Pressure 122/80 06/29/2015 0834 EST Pulse 64 06/29/2015 0834 EST Temperature - - Respiratory Rate - [...] osteoarthritis, unspe cified site-M19.90[ICD-10-CM] Z79.899 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 Continue Methotrexate 8 tabs once weekly. Keep tapering Prednisone by 1 mg every month as tolerated. Remember to have your labs checked every 3-4 months to monitor Methotrexate. Due again in September. Please let me know if you have any problems tapering Prednisone. Otherwise I'll plan to see you backin 6 months. documented in this encounter Ordered Prescriptions Prescription Sig Dispensed Refills Start Date End Date methotrexate 2.5 mg tablet Take 8 Tabs by 96 Tab 1 06/2909/18/2015 mouth once a week documented in this encounter Progress Notes Marie Stanford PA - 06/29/2015 0842 EST Images from the original note were not included. Division of Rheumatology and Clinical Immunology Chief Complaint Patient presents with ??? Follow-up inflammatory arthritis; no new issues HPI: Mr. Praneeth Villanueva is a 69 y.o. male here for follow up of seronegative inflammatory polyarthritis.?? 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 Last seen in clinic ~3 months ago. Changes since last visit: Increased Methotrexate from 15 to 20 mg weekly. Tapering Prednisone by 1 mg every month. Down to 2 mg daily and doing well. No major flares. Affected joints: Denies current joint pain or swelling. AM stiffness: Lasts 30 minutes Physical activity: Stays active around the house [...] every 6 hours as needed for Pain. As needed. Infrequent. ??? LACTOBACILLUS ACIDOPHILUS (PROBIOTIC ORAL) Take by mouth daily ??? methotrexate 2.5 mg tablet Take 8 Tabs by mouth once a week Tolerates [...] by 1 mg every month as tolerated Currently 2 mg daily. 120 Tab 2 ??? simvastatin (ZOCOR) 40 mg tablet Take [...] nourished male in no acute distress. BP 122/80 mmHg Pulse 64 HEENT: No occular inflammation. No oral ulcers. No lymphadenopathy. RESPIRATORY: Clear to auscultation bilaterally; no adventitious sounds. CARDIOVASCULAR: Regular rate and rhythm, normal S1S2, no murmurs/gallops/rubs. NEUROLOGIC: Mental status normal. Walks without an assistive device. Muscle strength not formally assessed but moving all extremities against gravity. MUSCULOSKELETAL: A complete msk exam including bilateral upper and lower extremities was done and was normal except for abnormal findings shown on homonculus. RAPID3 Score: As documented by Nurses/MAs during this visit and reviewed by me (LISSA). LABS: Obtained externally on 06/26/15 - CBC with diff: Normal CMP: Glucose marked as elevated (118) but no mention of fasting status, otherwise normal Imaging: None reviewed Impression/Plan: 1. Inflammatory arthritis Improved on higher dose Methotrexate. Continue to slowly taper Prednisone as tolerated. 2. Encounter for long-term (current) use of medications Labs up to date. CBC with diff unremarkable. Renal and hepatic function normal. - Hemagram & Differential; Standing - Comprehensive Metabolic Panel (CMP); Standing Patient Instructions No changes today. Continue Methotrexate 8 tabs once weekly. Keep tapering Prednisone by 1 mg every month as tolerated. Remember to have your labs checked every 3-4 months to monitor Methotrexate. Due again in September. Please let me know if you have any problems tapering Prednisone. Otherwise I'll plan to see you backin 6 months. Barriers to learning identified: No Patient verbalizes understanding and agrees with plan: Yes I was supervised by Dr. Kaminski who was in the suite and immediately available for the entire time the service was provided. ALMA Bills 06/29/2015 8:42 Claudia Romano RN - 06/29/2015 0836 EST REVIEW OF SYSTEMS: Yes No Yes No Fever X Joint pain x Weight gain or loss pounds (lbs) Duration of AM joint stiffness 1.5 hours Eye pain or dryness X Numbness/tingling [...] entire body? 0 f. Bend down to pick and shovel man clothing from the floor? 0 g. Turn regular faucets on and off? 0 h. Get in and out of a car, bus, train or airplane? 0 i. Walk two miles or three kilometers, if you wish? 0 j. Participate in recreational activities/sports, if you wish? 0 TOTAL = 0 FUNCTION (FN) (Use conversion scale) = 0 (Use conversion scale above) Get a good night???s sleep? 0 0 = Without ANY difficulty (0.0) 1 = With SOME difficulty (1.1) 2 = With MUCH difficulty (2.2) 3 = UNABLE to do (3.3) Deal with feelings of anxiety or being nervous? 0 Deal with feelings of depression or feeling blue? 0 PAIN (PN) = 2 0-10 PATIENT GLOBAL (PTGE) = 1 0-10 RAPID3 SCORE (FN + PN + PTGE) = 3 0-30 HS: > 12 MS: 6.1 - 12 LS: 3.1 - 6 NR: ? 3 documented in this encounter Plan of Treatment Upcoming Encounters Date Type Specialty Care Team Description 12/27/2021 Office Visit Hematology and Erin Barillas M D Oncology 111 [facility] 2 [place] [address] (Wo rk) 02/14/2022 Office Visit Hematology and Erin Barillas M D Oncology [address] [place] [phone] (Wo rk) 04/25/2022 Ancillary Procedure Cardiology 04/25/2022 Office Visit Cardiology Claire Lopez NP [address] [place] [address] [phone] (Wo rk) 05/13/2022 Office Visit Rheumatology Tod Perez NP 111 [facility] 5 [place] [address] (Wo rk) documented as of this encounter Visit Diagnoses Diagnosis Inflammatory arthritis - Primary Unspecified inflammatory polyarthropathy Encounter for long-term (current) use of medications Encounter for long-term (current) use of other medications documented in this encounter Discontinued Medications Medication Sig Discontinue Reason Start Date End Date predniSONE (DELTASONE) 1 tab twice a day for Dose adjustment 201406/29/2015 5 mg tablet inflammatory arthritis (714.9) methotrexate 2.5 mg Take 8 Tabs by mouth Reorder 03/31/2015 06/29/2015 tablet once a week documented as of this encounter Care Teams Computer Numerical Control Operator Relationship Specialty Start Date End Date Dereck Schultz MD PCP - General 10/19/08 02/12/17 [facility] [place] [address] documented as of this encounter
--- OUTSIDE RECORDS SUMMARY | 2021-12-21 01:24 | XMS_ITS | Encounter Summary ---
:1945 Author Organization [facility] Address [address] [place] [address] Care Team Providers Name Role Phone Dereck Schultz MD Primary Care Provider [phone] Reason for Visit Reason Comments Follow-up Medication Management Encounter Details Date Type Department Care Team Description 12/19/2014 Office Visit [facility] Marie Stanford arthritis (Primary Dx); Rheumatology & M, PA-C Spondylosis of lumbar region without mye lopathy or radiculopathy; Immunology - Main [address] Riley for long-term (current) use of other medications [place] [address] [place] [address] [phone] Social History Tobacco Use Types Packs/Day Years [...] Sign Reading Time Taken Comments Blood Pressure 124/60 12/19/2014 1604 EDT Pulse 68 12/19/2014 1604 EDT Temperature - - Respiratory Rate 14 12/19/2014 1604 EDT Oxygen Saturation - - Inhaled Oxygen Concentration - - Weight 112.9 kg (249 lb) 12/19/2014 1604 EDT Height 182.2 cm (5' 11.75) 12/19/2014 1604 EDT Body Mass Index 34.01 12/19/2014 1604 EDT documented in this encounter Functional Status Cognitive Status Response Date of Assessment Because of a physical, mental, or emotional condition, do Ye s 04/08/2012 you have serious difficulty concentrating, remembering, or making decisions? (5 years old or older) documented as of this encounter Discharge Diagnoses Diagnosis 714.9 INFLAMM POLYARTHROP NOS[ICD-9-CM] 721.3 LUMBOSACRAL SPONDYLOSIS[ICD-9-CM] V58.69 AFTERCARE PROGRAM ADVISOR USE MEDICATN[ ICD-9-CM] documented in this encounter Patient Instructions Patient InstructionsMarie Stanford PA - 12/19/2014 16:55 EDT Continue Prednisone 2.5 mg daily for 2 more weeks then decrease to 2.5 mg every other day for 1 month. If no difference in joint symptoms you can try stopping it. Ok to try tapering Gabapentin by taking 1 tab every other day for 1 week. As long as your back pain doesn't worsen you can also try stopping this. Continue Methotrexate 6 tablets once weekly for now. Please let me know if you have any problems as you taper your medications. Otherwise I will follow up with you in 3 months. Please have labs checked before your appointment. documented in this encounter Ordered Prescriptions Prescription Sig Dispensed Refills Start Date End Date methotrexate 2.5 mg tablet Take 6 Tabs by 72 Tab 3 12/1903/29/2015 mouth once a week folic acid (FOLVITE) 1 mg Take 1 Tab by mouth 100 Tab 3 0 12/19/2014 09/11/2015 tablet daily documented in this encounter Progress Notes Marie Stanford PA - 12/19/2014 1627 EDT Images from the original note were not included. Division of Rheumatology and Clinical Immunology Chief Complaint Patient presents with ??? Follow-up ??? Medication Management HPI: Mr. Praneeth Villanueva is a 69 y.o. male here for follow up of seronegative inflammatory polyarthritis. 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 Previously followed by Dr. Turner, new to me. Last seen in clinic ~3 months ago. Changes since last visit: Decreased Prednisone from 7.5 to 5 mg daily in the beginning of October. Then 2 weeks ago further dropped down to 2.5 mg daily. Is hoping to get off of it soon. No difference in joint symptoms on lower dose Prednisone. He also decreased Gabapentin from 400 mg three times to once daily (per advice from his ). Affected joints: Has some low back pain but it's tolerable. His shoulders only hurt when it's cold. He says that he couldn't even lift his shoulders last year when he first met Dr. Turner so comparably he is doing a whole lot better. All that stuff is pretty much resolved right now. 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 aspirin chewable 81 mg tablet Take 81 mg by mouth daily. ??? finasteride (PROSCAR) 5 mg tablet Take 5 mg by mouth daily. ??? folic acid (FOLVITE) 1 mg tablet Take 1 Tab by mouth daily. 100 Tab 3 ??? gabapentin (NEURONTIN) 400 mg capsule Take 400 mg by mouth daily ??? HYDROcodone-acetaminophen (VICODIN) 5-300 mg tablet Take 2 Tabs by mouth at bedtime. Infrequent use. Hasn't taken in some time. ??? ibuprofen (MOTRIN) 200 mg tablet Take 200 mg by mouth every 6 hours as needed for Pain. As needed. Infrequent. ??? methotrexate 2.5 mg tablet 6 tablets once a week Tolerates ok without reported side effects. Has a lingering cough from a recent cold that he caught from his grandchildren. No other infections. 24 Tab 0 ??? metoprolol (LOPRESSOR) 25 mg tablet Take 25 mg by mouth daily. ??? omeprazole (PRILOSEC) 20 mg capsule Take 20 mg by mouth daily. ??? predniSONE (DELTASONE) 5 mg tablet 1 tab twice a day for inflammatory arthritis (714.9) (Patienttaking differently: Take 2.5 mg by mouth daily 1 tab twice a day for inflammatory arthritis (714.9) Taking 2.5 mg daily. 60 Tab 5 ??? simvastatin [...] Surgical History Procedure Laterality Date ??? Cholecystectomy 2004 ??? Cataract removal bilateral ??? Hernia repair [...] well nourished male in no acute distress. Accompanied by his today. BP 124/60 Pulse 68 Resp 14 Ht 182.2 cm (71.75) Wt 112.946 kg (249 lb) BMI 34.02 kg/m2 HEENT: PERRL, EOM's intact, no occular inflammation. Oropharynx clear, throat normal without erythema or exudate, no oral ulcers. No lymphadenopathy. RESPIRATORY: Clear to auscultation bilaterally; no adventitious sounds. CARDIOVASCULAR: Regular rate and rhythm, normal S1S2, no murmurs/gallops/rubs. SKIN: Rosacea (face). NEUROLOGIC: Mental status normal. Walks without an assistive device. Moves on/off exam table independently. Muscle strength not formally assessed but moving all extremities against gravity. MUSCULOSKELETAL: A complete msk exam including bilateral upper and lower extremities was done and was normal except for abnormal findings shown on homonculus. RAPID3 Score: As documented by Nurses/MAs during this visit and reviewed by me (LISSA). LABS: Phlebotomy Only on 09/20/2014 Component Date Value ??? Potassium 09/20/2014 4.5 ??? Sodium 09/20/2014 143 ??? Chloride 09/20/2014 100 ??? CO2 09/20/2014 30 ??? Total Alkaline Phosphata* 09/20/2014 64 ??? Bilirubin, Total 09/20/2014 0.6 ??? AST 09/20/2014 22 ??? ALT 09/20/2014 38 ??? Albumin 09/20/2014 4.5 ??? Total Protein 09/20/2014 6.7 ??? Creatinine 09/20/2014 1.01 ? ? GFR, Calculated 09/20/2014 >60 ??? BUN 09/20/2014 19 ??? Calcium 09/20/2014 9.7 ??? Calculated Calcium 09/20/2014 9.6 ??? Glucose, Serum 09/20/2014 102* ??? Fasting? 09/20/2014 No ??? WBC 09/20/2014 7.10 ??? RBC 09/20/2014 4.73 ??? Hemoglobin 09/20/2014 14.7 ??? HCT 09/20/2014 43.7 ??? MCV 09/20/2014 92 ??? MCH 09/20/2014 31.1 ??? MCHC 09/20/2014 33.7 ??? RDW-CV 09/20/2014 15.7* ??? RDW-SD 09/20/2014 49.4* ??? PLT 09/20/2014 210 ??? MPV 09/20/2014 9.7 ??? Neutrophils 09/20/2014 65.9 ??? Lymphocytes 09/20/2014 24.7 ??? Monocytes 09/20/2014 7.9 ??? Eosinophils 09/20/2014 0.9 ??? Basophils 09/20/2014 0.6 ??? ABS Neutrophils 09/20/2014 4.68 ??? ABS Lymphs 09/20/2014 1.76 ??? ABS Monocytes 09/20/2014 0.56 ??? ABS Eosinophils 09/20/2014 0.06 ??? ABS Basophils 09/20/2014 0.04 ??? Type of Diff: 09/20/2014 Automated Imaging: None recent Impression/Plan: Seronegative inflammatory arthritis. Good response to Methotrexate. Continue to slowly taper Prednisone as tolerated. 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 Symptomatic improvement on Gabapentinbut Praneeth is eager to taper off as many medications as he can so will try weaning off. Encounter for medical terminologist use of medication. Praneeth says that he had labs drawn at [facility] this morning. Nursing contacted [facility] but these did not include our standing labs. They were able to add on a CMP (results pending) but couldn't do the CBC with diff (no purple top). Patient Instructions Continue Prednisone 2.5 mg daily for 2 more weeks then decrease to 2.5 mg every other day for 1 month. If no difference in joint symptoms you can try stopping it. Ok to try tapering Gabapentin by taking 1 tab every other day for 1 week. As long as your back pain doesn't worsen you can also try stopping this. Continue Methotrexate 6 tablets once weekly for now. Please let me know if you have any problems as you taper your medications. Otherwise I will follow up with you in 3 months. Please have labs checked before your appointment. Barriers to learning identified: No Patient verbalizes understanding and agrees with plan: Yes I was supervised by Dr. Warner who was in the suite and immediately available for the entire time the service was provided. ALMA Bills 12/19/2014 16:27 I was present in the clinic for consultation while the PA was seeing patients. Russ Warner MD. 12/26/2014 Jazmyne Jama - 12/19/2014 7684 EDT REVIEW OF SYSTEMS: Yes No Yes [...] x Burning on urination X Skin rash x Hand/Foot color change in cold X RAPID3 [...] entire body? 0 f. Bend down to cherry picker operator clothing from the floor? 0 g. Turn regular faucets on and off? 0 h. Get in and out of a car, bus, train or airplane? 0 i. Walk two miles or three kilometers, if you wish? 0 j. Participate in recreational activities/sports, if you wish? 0 TOTAL = 0 FUNCTION (FN) (Use conversion scale) = (Use conversion scale above) Get a good night???s sleep? 1 0 = Without ANY difficulty (0.0) 1 = With SOME difficulty (1.1) 2 = With MUCH difficulty (2.2) 3 = UNABLE to do (3.3) Deal with feelings of anxiety or being nervous? 0 Deal with feelings of depression or feeling blue? 0 PAIN (PN) = 0.5 0-10 PATIENT GLOBAL (PTGE) = 0 0-10 RAPID3 SCORE (FN + PN + PTGE) = 0.5 0-30 HS: > 12 MS: 6.1 - 12 LS: 3.1 - 6 NR: ? 3 documented in this encounter Plan of Treatment Upcoming Encounters Date Type Specialty Care Team Description 12/27/2021 Office Visit Hematology and Erin Barillas M D Oncology 111 [facility] 2 [place] [address] (Wo rk) 02/14/2022 Office Visit Hematology and Erin Barillas M D Oncology [address] [phone] (Wo rk) 04/25/2022 Ancillary Procedure Cardiology 04/25/2022 Office Visit Cardiology Claire Lopez NP 130 [facility] [address] [phone] (Wo rk) 05/13/2022 Office Visit Rheumatology Tod Perez NP [address] [phone] (Wo rk) documented as of this encounter Visit Diagnoses Diagnosis Inflammatory arthritis - Primary Unspecified inflammatory polyarthropathy Spondylosis of lumbar region without mye lopathy or radiculopathy Lumbosacral spondylosis without myelopat hy Encounter for long-term (current) use of other medications documented in this encounter Discontinued Medications Medication Sig Discontinue Reason Start Date End Date gabapentin (NEURONTIN) Take 1 Cap by mouth Dose adjustment 12/06/19 15 12/19/2014 400 mg capsule 3 times daily folic acid (FOLVITE) 1 mg Take 1 Tab by mouth Reorder 05/10/20 14 12/19/2014 tablet daily. methotrexate 2.5 mg 6 tablets once a Reorder 12/05/201411/2014 tablet week documented as of this encounter Historical Medications This list may reflect changes made after this encounter. Medication Sig Dispensed Refills Start Date End Date gabapentin (NEURONTIN) Take 400 mg by mouth 0 03/29/2015 400 mg capsule daily added in this encounter Care Teams Oyster Bed Worker Relationship Specialty Start Date End Date Dereck Schultz MD PCP - General 10/19/08 02/12/[address] [place] [phone] documented as of this encounter
--- OUTSIDE RECORDS SUMMARY | 2021-12-21 01:24 | XMS_ITS | Encounter Summary ---
:1945 Author Organization [facility] Address [address] [place] [address] Care Team Providers Name Role Phone Dereck Schultz MD Primary Care Provider [phone] Encounter Details Date Type Department Care Team Description 12/19/2014 Orders Only [facility] Marie Stanford Rheumatology & M, PA-C arthropathy (Primary Immunology - Main [address] [place] [address] DR Anthony) [place] [address] [place] [phone] Social History Tobacco Use Types Packs/Day Years [...] or older) documented as of this encounter Progress Notes Desire Adrian RN - 12/19/2014 0050 EDT Asked by LEONEL padilla to add on CBC with diff and CMP to pt's labs drawn today at [facility]. Spoke with [facility]. They are not able to add CBC with diff because no purple top drawn. Order for CMP faxed to [phone] with confirmation of successful transmission page received. documented in this encounter Plan of Treatment Upcoming Encounters Date Type Specialty Care Team Description 12/27/2021 Office Visit Hematology and Erin Barillas M D Oncology [address] [place] [phone] (Wo rk) 02/14/2022 Office Visit Hematology and Erin Barillas M D Oncology [address] [phone] (Wo rk) 04/25/2022 Ancillary Procedure Cardiology 04/25/2022 Office Visit Cardiology Claire Lopez NP [address] [place] [address] [phone] (Wo rk) 05/13/2022 Office Visit Rheumatology Tod Perez NP 111 [facility] 5 [place] [address] (Wo rk) documented as of this encounter Procedures Procedure Name Priority Date/Time Associated Diagnosis Comme nts OUTPATIENT ADD-ON STAT 12/19/2014 16:46 Inflammatory Result s for this EDT arthropathy procedure are i n the results section. documented in this encounter Results OUTPATIENT ADD-ON (12/19/2014 16:46 EDT) Tests to be added CMP [facility] Diagnosis Code SEE PRISM [facility] Number for problems 802 [facility] Comment: LABORATORY 847 SERVICES 3180 Accession number CALLED RHEUM WITH [facility] INABILITY TO ADD LABORATORY ON CMP DUE TO NOT SERVICES HAVING A SAMPLE SPOKE WITH LOW [place] ABP Done [facility] Specimen Blood Performing Organization Address City/State/ZIP Code Phon e Number [facility] [address] [place] [address] SERVICES documented in this encounter Visit Diagnoses Diagnosis Inflammatory arthropathy - Primary Arthropathy, unspecified, site unspecifi ed documented in this encounter Care Teams Hourly Caregiver Relationship Specialty Start Date End Date Dereck Schultz MD PCP - General 10/19/08 02/12/[address] [place] [address] documented as of this encounter
--- OUTSIDE RECORDS SUMMARY | 2021-12-21 01:24 | XMS_ITS | Encounter Summary ---
:1945 Author Organization [facility] Address [address] [place] [address] Care Team Providers Name Role Phone Dereck Schultz MD Primary Care Provider [phone] Encounter Details Date Type Department Care Team Description 03/29/2015 Phlebotomy Only [facility] Drop Forger Helper, Darrick herrera arthritis; - [facility] Outpatient Encounter for long-term (cur rent) use of medications [address] [place] [address] Social History Tobacco Use Types Packs/Day Years [...] Erin Barillas M D Oncology 111 [facility] 2 [place] [address] (Wo rk) 02/14/2022 Office Visit Hematology and Erin Barillas M D Oncology 111 [facility] 2 [place] [address] (Wo rk) 04/25/2022 Ancillary Procedure Cardiology 04/25/2022 Office Visit Cardiology Claire Lopez NP 130 [facility] [address] [phone] (Wo rk) 05/13/2022 Office Visit Rheumatology Tod Perez NP 111 [facility] 5 [place] [address] (Wo rk) documented as of this encounter Procedures Procedure Name Priority Date/Time Associated Diagnosis Comme nts COMPLETE BLOOD COUNT Routine 03/29/2015 10:13 Inflammatory Res ults for this AND DIFFERENTIAL EDT arthritis procedure are in Encounter for the results long-term (current) section. use of medications COMPREHENSIVE Routine 03/29/2015 10:13 Inflammatory Results fo r this METABOLIC PANEL (CMP) EDT arthritis procedure are in Encounter for the results long-term (current) section. use of medications documented in this encounter Results (ABNORMAL) COMPREHENSIVE METABOLIC PANEL (CMP) (03/29/2015 10:13 EDT) Potassium 4.3 3.5 - 5.0 [facility] Sodium 139 136 - 145 [facility] Chloride 104 96 - 110 [facility] CO2 25 24 - 32 mEq/L [facility] [place] Total Alkaline 62 38 - 126 U/L [facility] Phosphatase [facility] Bilirubin, Total 0.5 <1.4 mg/dl [facility] AST 14 (L) 15 - 46 U/L [facility] ALT 33 21 - 72 U/L [facility] Albumin 4.1 3.4 - 4.9 [facility] g/dl [facility] Total Protein 6.1 (L) 6.3 - 8.2 [facility] g/dl [facility] Creatinine 0.90 0.66 - 1.25 [facility] mg/dl [facility] GFR, Calculated 86 >60 [facility] Comment: ml/min/1.73m2 [facility] eGFR calculated using CKD-EPI equation for SERVICES non Americans. Multiply eGFR by 1.16 for Americans. BUN 13 10 - 26 mg/dl [facility] Calcium 9.0 8.5 - 10.5 [facility] mg/dl [facility] Calculated Calcium 9.3 8.5 - 10.5 [facility] mg/dl [facility] Glucose, Serum 93 70 - 100 [facility] mg/dl [facility] Fasting? No [facility] Specimen Blood specimen (specimen) - Blood Performing Organization Address City/State/ZIP Code Phon e Number [facility] [address] [place] [address] SERVICES (ABNORMAL) HEMAGRAM AND DIFFERENTIAL (03/29/2015 10:13 EDT) Pathologist Sig nature WBC 7.21 4.0 - 10.4 [facility] RBC 4.89 4.36 - 5.78 [facility] M/[facility] LABORATORY SERVICES Hemoglobin 14.6 13.8 - 17.3 [facility] gm/dl LAB[facility] SERVICES HCT 44.5 39.5 - 50.2 % [facility] MCV 91 81 - 95 fl [facility] MCH 29.9 27.6 - 33.0 pg [facility] MCHC 32.9 32.8 - 36.4 [facility] gm/dl LABORATORY SERVICES RDW-CV 15.5 (H) 11.8 - 14.1 % [facility] RDW-SD 48.6 (H) 36.5 - 45.9 fl [facility] PLT 219 141 - 320 K/[facility] LABORATORY SERVICES MPV 10.1 7.5 - 11.2 fl [facility] Neutrophils 66.1 45.5 - 79.7 % [facility] Lymphocytes 25.6 15.0 - 46.8 % [facility] Monocytes 6.7 1.8 - 12.0 % [facility] Eosinophils 1.0 0.6 - 6.9 % [facility] Basophils 0.6 0.2 - 1.4 % [facility] ABS Neutrophils 4.76 2.20 - 8.85 [facility] K/[facility] LABORATORY SERVICES ABS Lymphs 1.84 1.09 - 3.30 [facility] LABORATORY SERVICES ABS Monocytes 0.49 0.1 - 0.8 K/[facility] LABORATORY SERVICES ABS Eosinophils 0.08 0.03 - 0.61 [facility]OR[facility]ORY SERVICES ABS Basophils 0.04 0.01 - 0.11 [facility]ORY SERVICES Type of Diff: Automated [facility] Specimen Blood specimen (specimen) - Blood Performing Organization Address City/State/[facility] Phon e Number [facility] [address] [place] [address] SERVICES documented in this encounter Visit Diagnoses Diagnosis Inflammatory arthritis Unspecified inflammatory polyarthropathy Encounter for long-term (current) use of medications Encounter for long-term (current) use of other medications documented in this encounter Orders Lab Orders Without Results Count Last Ordered Date Fir st Ordered Date COMPREHENSIVE METABOLIC PANEL (CMP) 1 03/29/2015 HEMAGRAM AND DIFFERENTIAL 1 03/29/2015 documented in this encounter Care Teams Customer Data Technician Relationship Specialty Start Date End Date Dereck Schultz MD PCP - General 10/19/08 02/12/[address] [place] [phone] documented as of this encounter
--- OUTSIDE RECORDS SUMMARY | 2021-12-21 01:24 | XMS_ITS | Encounter Summary ---
:1945 Author Organization [facility] Address [address] [place] [address] Care Team Providers Name Role Phone Dereck Schultz MD Primary Care Provider [phone] Reason for Visit Reason Comments Clinic Admin Medications follow up prednisone dosing Encounter Details Date Type Department Care Team Description 06/23/2014 Office Visit [facility] Major Turner Inflam matory arthritis Rheumatology & (Primary Dx) Immunology - Main [place] [address] [place], [place] [id number] Social History Tobacco Use Types Packs/Day Years [...] Sign Reading Time Taken Comments Blood Pressure 130/72 06/23/2014 1302 EST Pulse 68 06/23/2014 1302 EST Temperature - - Respiratory Rate 16 06/23/2014 1302 EST Oxygen Saturation - - Inhaled Oxygen Concentration - - Weight 112.5 kg (248 lb) 06/23/2014 1302 EST Height 182.2 cm (5' 11.75) 06/23/2014 1302 EST Body Mass Index 33.87 06/23/2014 1302 EST documented in this encounter Functional Status Cognitive Status Response Date of Assessment Because of a physical, mental, or emotional condition, do Ye s 04/08/2012 you have serious difficulty concentrating, remembering, or making decisions? (5 years old or older) documented as of this encounter Discharge Diagnoses Diagnosis 714.9 INFLAMM POLYARTHROP NOS[ICD-9-CM] documented in this encounter Ordered Prescriptions Prescription Sig Dispensed Refills Start Date End Date methotrexate 2.5 mg 6 tablets once a 30 Tab 3 06/23/2014 12/05/2014 tablet week. documented in this encounter Progress Notes Major Turner MD - 06/23/2014 1301 EST Division of Rheumatology and Clinical Immunology Chief Complaint: Joint pain HPI: Return visit for this 68-year-old male with inflammatory arthritis. He is currently on prednisone 15mg daily and methotrexate 10 mg once a week. Since my last visit with him, there has been substantial improvement in his joint pain. He is now almost pain free and no longer has any tingling in his left hand. In addition to the methotrexate and prednisone he is also on gabapentin 400 mg 3 times daily.This has been quite helpful for his low back and left leg pain. 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 Numbness/tingling x Eye [...] x Hair Loss x PHYSICAL EXAMINATION: BP 130/72 Pulse 68 He well appearing and in no distress. HEENT exam: Eyes: Pupils round, reactive to light. Sclerae anicteric, noninjected. Oropharynx: No lesions. Lungs are clear to auscultation. Heart regular rate and rhythm without murmur, rub or gallop. On joint exam, he had no swelling or pain in the DIP, PIP or MCP joints. Wrists, elbows, shoulders, hips, knees and ankles reveal no pain with passive motion. Mid foot and MTP joints are nontender. LABS Results Only on 05/10/2014 Component Date Value [...] ??? Ketones, UA 05/10/2014 Neg ??? Specific [place], Urine 05/10/2014 1.025 ??? Blood, UA 05/10/2014 [...] <12.3 Imaging: Diagnosis / Assessment: Inflammatory polyarthritis, substantially improved since his last visit a month ago. Recommendations/Evaluation: I do feel that we need to increase his methotrexate to at least 15 mg once a week. After the third dose of that, he will try reducing his prednisone from 15 mg a day to 12.5 mg daily. Recheck in a month. Barriers to learning identified: No Patient verbalizes understanding and agrees with plan Yes Major Turner MD 06/23/2014 13:36 documented in this encounter Plan of Treatment Upcoming Encounters Date Type Specialty Care Team Description 12/27/2021 Office Visit Hematology and Erin Barillas M D Oncology [address] [place] [phone] (Joi rk) 02/14/2022 Office Visit Hematology and Erin Barillas M D Oncology [address] [phone] (Jio rk) 04/25/2022 Ancillary Procedure Cardiology 04/25/2022 Office Visit Cardiology Claire Lopez NP [address] [place] [address] [phone] (Wo rk) 05/13/2022 Office Visit Rheumatology Tod Perez NP 111 [facility], [address] [address] (Wo rk) documented as of this encounter Results (ABNORMAL) HEMAGRAM AND DIFFERENTIAL (06/23/2014 13:39 EST) [facility] nature WBC 9.15 4.0 - 10.4 K/cmm [facility]ORY SERVICES RBC 5.01 4.36 - 5.78 [facility] M/cm LABORATORY SERVICES Hemoglobin 14.9 13.8 - 17.3 [facility] gm/dl LABORATORY SERVICES HCT 44.4 39.5 - 50.2 % [facility] SERVICES MCV 89 81 - 95 fl [facility] SERVICES MCH 29.8 27.6 - 33.0 pg [facility] SERVICES MCHC 33.6 32.8 - 36.4 [facility] gm/dl LABORATORY SERVICES PLT 212 141 - 320 K/cmm [facility] SERVICES RDW-CV 15.6 (H) 11.8 - 14.1 % [facility] Neutrophils 75.4 45.5 - 79.7 % [facility] Lymphocytes 17.0 15.0 - 46.8 % [facility] SERVICES Monocytes 6.7 1.8 - 12.0 % [facility] Eosinophils 0.3 (L) 0.6 - 6.9 % [facility] SERVICES Basophils 0.6 0.2 - 1.4 % [facility]ORY SERVICES ABS Neutrophils 6.89 2.20 - 8.85 [facility] K/[facility] LABORATORY SERVICES ABS Lymphs 1.55 1.09 - 3.30 [facility] K/[facility] LABORATORY SERVICES ABS Monocytes 0.62 0.1 - 0.8 K/[facility] LABORATORY SERVICES ABS Eosinophils 0.03 0.03 - 0.61 [facility] K/[facility] LABORATORY SERVICES ABS Basophils 0.05 0.01 - 0.11 [facility] K/[facility] LABORATORY SERVICES Type of Diff: Automated [facility] SERVICES Specimen Blood specimen (specimen) - Blood Performing Organization Address City/State/ZIP Code Phon e Number [facility] [address] [place] [address] SERVICES (ABNORMAL) COMPREHENSIVE METABOLIC PANEL (CMP) (06/23/2014 13:39 EST) Pathologist Sig nature Potassium 4.6 3.5 - 5.0 mEq/L [facility] SERVICES Sodium 143 136 - 145 mEq/L [facility] SERVICES Chloride 102 96 - 110 mEq/L [facility] SERVICES CO2 30 24 - 32 mEq/L [facility] Total Alkaline 54 38 - 126 U/L [facility] Phosphatase LABORATORY SERVICES Bilirubin, Total <0.5 <1.4 mg/dl [facility] SERVICES AST 16 15 - 46 U/L [facility] SERVICES ALT 26 21 - 72 U/L [facility] Albumin 4.4 3.4 - 4.9 g/dl [facility] Total Protein 6.7 6.5 - 8.3 g/dl [facility] SERVICES Creatinine 1.20 0.66 - 1.25 [facility] mg/dl LABORATORY SERVICES GFR, Calculated 60 (L) >60 [facility] ml/min/1.73m2 LABORATORY SERVICES BUN 25 10 - 26 mg/dl [facility] SERVICES Calcium 9.6 8.5 - 10.5 [facility] mg/dl LABORATORY SERVICES Calculated Calcium 9.6 8.5 - 10.5 [facility] mg/dl LABORATORY SERVICES Glucose, Serum 121 (H) 70 - 100 mg/dl [facility] SERVICES Fasting? Unknown [facility] Specimen Blood specimen (specimen) - Blood Performing Organization Address City/State/ZIP Code Phon e Number [facility] [address] [place] [address] SERVICES documented in this encounter Visit Diagnoses Diagnosis Inflammatory arthritis - Primary Unspecified inflammatory polyarthropathy documented in this encounter Discontinued Medications Medication Sig Discontinue Reason Start Date End Date gabapentin (NEURONTIN) Take 2 Caps by Dose adjustment 03/18/2014 06/23/2014 100 mg capsule mouth 3 times daily. predniSONE (DELTASONE) 1 4 tablets daily or Therapy completed 02/0706/23/2014 mg tablet as directed. methotrexate 2.5 mg 4 tablets once a 05/30/201401/2015 tablet week. documented as of this encounter Care Teams Subway Train Operator Relationship Specialty Start Date End Date Dereck Schultz MD PCP - General 10/19/08 02/12/[address] [place] [address] documented as of this encounter
--- OUTSIDE RECORDS SUMMARY | 2021-12-21 01:24 | XMS_ITS | Encounter Summary ---
:1945 Author Organization [facility] Address [address] [place] [address] Care Team Providers Name Role Phone Dereck Schultz MD Primary Care Provider [phone] Encounter Details Date Type Department Care Team Description 09/24/2013 Orders Only [facility] Thony Richey DO Myopathy (Primary Dx) Adult Primary Care - [phone] [place] [address] [phone] (Wo rk) Social History Tobacco Use [...] Barillas M D Oncology 111 [facility] 2 [place] [address] (Wo rk) 02/14/2022 Office Visit Hematology and Erin Barillas M D Oncology 111 [facility] 2 [place] [address] (Wo rk) 04/25/2022 Ancillary Procedure Cardiology 04/25/2022 Office Visit Cardiology Claire Lopez NP 130 [facility] [address] [phone] (Wo rk) 05/13/2022 Office Visit Rheumatology Tod Perez NP 111 [facility] [address] [place] [address] (Wo rk) documented as of this encounter Visit Diagnoses Diagnosis Myopathy - Primary Myopathy, unspecified documented in this encounter Care Teams Pattern Mechanic Relationship Specialty Start Date End Date Dereck Schultz MD PCP - General 10/19/08 02/12/[address] [place] [phone] documented as of this encounter
--- OUTSIDE RECORDS SUMMARY | 2021-12-21 01:24 | XMS_ITS | Encounter Summary ---
:1945 Author Organization [facility] Address [address] [place] [address] Care Team Providers Name Role Phone Dereck Schultz MD Primary Care Provider [phone] Reason for Visit Reason Onset Date Comments Medications Refill 05/30/2014 methotrexate Encounter Details Date Type Department Care Team Description 05/30/2014 Refill [facility] Major Turner MD Med ications Refill Rheumatology & Immunology (m ethotrexate) - Main [place] [address] [place], [place] [address] Social History Tobacco Use Types Packs/Day Years [...] Start Date End Date methotrexate 2.5 mg 4 tablets once a 20 Tab 3 05/30/2014 06/23/2014 tablet week. documented in this encounter Miscellaneous Notes Telephone Encounter - Claudia Salgado RN - 05/31/2014 1508 EST The pharmacy was able to run the medication and it went through without difficulty. Telephone Encounter - Claudia Salgado RN - 05/31/2014 1209 EST Spoke with pt's and he took the MTX wrong. He has taken two doses and only has 3 tablets left. Will need 5 tablets phoned in to allow him to take the the correct dose. Do you want any lab work or ok to phone in a one time order of 5 tablets that will allow 8 tablets that will take him to his nextrefill. elephone Encounter - Shruthi Martel - 05/30/2014 0938 EST Medication(s) Requested: Methotrexate 2.5 mg tab 5 tabs a week Pharmacy: [place] [place] Last Refill Date: 05/10/14 Last Visit Date: 05/10/14 Next Visit Date: 06/23/2014 Is patient out of medication? Yes, pt's next does is 06/03/14 Shruthi Martel 05/30/2014 9:45 documented in this encounter Plan of Treatment Upcoming Encounters Date Type Specialty Care Team Description 12/27/2021 Office Visit Hematology and Erin Barillas M D Oncology [address] [phone] (Joi diallo) 02/14/2022 Office Visit Hematology and Erin Barillas M D Oncology [address] [phone] (Joi diallo) 04/25/2022 Ancillary Procedure Cardiology 04/25/2022 Office Visit Cardiology Claire Lopez NP 130 [facility] [address] [place] [phone] (Wo rk) 05/13/2022 Office Visit Rheumatology Tod Perez NP 111 [facility] [address] [place] [address] (Wo rk) documented as of this encounter Visit Diagnoses Not on filedocumented in this encounter Discontinued Medications Medication Sig Discontinue Reason Start Date End Date methotrexate 2.5 mg 4 tablets once a Reorder 05/10/201405/16 tablet week. documented as of this encounter Care Teams Fire Battalion Chief Relationship Specialty Start Date End Date Dereck Schultz MD PCP - General 10/19/08 02/12/17 [facility] [place] [phone] documented as of this encounter
--- OUTSIDE RECORDS SUMMARY | 2021-12-21 01:24 | XMS_ITS | Encounter Summary ---
:1945 Author Organization [facility] Address [address] [place] [address] Care Team Providers Name Role Phone Dereck Schultz MD Primary Care Provider [phone] Encounter Details Date Type Department Care Team Description 06/23/2014 Phlebotomy Only [facility] Mosaicist, [facility] Outpatient arthritis [address] [place] [address] Social History Tobacco Use Types Packs/Day Years [...] and Erin Barillas M D Oncology 111 [facility], Level [address] [place] [address] (Wo rk) 02/14/2022 Office Visit Hematology and Erin Barillas M D Oncology 111 [facility], [facility] 2 [place] [address] (Wo rk) 04/25/2022 Ancillary Procedure Cardiology 04/25/2022 Office Visit Cardiology Claire Lopez , [facility] [address] [place] [address] (Wo rk) 05/13/2022 Office Visit Rheumatology Tod Perez NP 111 [facility], [facility] 5 [place] [address] (Wo rk) documented as of this encounter Procedures Procedure Name Priority Date/Time Associated Diagnosis Comme nts COMPLETE BLOOD COUNT Routine 06/23/2014 13:39 Inflammatory Res ults for this AND DIFFERENTIAL EST arthritis procedure a re in the results section. COMPREHENSIVE Routine 06/23/2014 13:39 Inflammatory Results fo r this METABOLIC PANEL (CMP) EST arthritis proced ure are in the results section. documented in this encounter Results (ABNORMAL) HEMAGRAM AND DIFFERENTIAL (06/23/2014 13:39 EST) Pathologist Sig nature WBC 9.15 4.0 - 10.4 K/cmm [facility] RBC 5.01 4.36 - 5.78 [facility] M/cmm LABORATORY SERVICES Hemoglobin 14.9 13.8 - 17.3 [facility] gm/dl LABORATORY SERVICES HCT 44.4 39.5 - 50.2 % [facility] MCV 89 81 - 95 fl [facility] MCH 29.8 27.6 - 33.0 pg [facility] MCHC 33.6 32.8 - 36.4 [facility] gm/dl LAB[facility]ORY SERVICES PLT 212 141 - 320 K/cmm [facility] RDW-CV 15.6 (H) 11.8 - 14.1 % [facility] Neutrophils 75.4 45.5 - 79.7 % [facility] Lymphocytes 17.0 15.0 - 46.8 % [facility] Monocytes 6.7 1.8 - 12.0 % [facility] Eosinophils 0.3 (L) 0.6 - 6.9 % [facility] Basophils 0.6 0.2 - 1.4 % [facility] ABS Neutrophils 6.89 2.20 - 8.85 [facility] K/[facility] ABS Lymphs 1.55 1.09 - 3.30 [facility] K/[facility]ORATORY SERVICES ABS Monocytes 0.62 0.1 - 0.8 K/[facility] LABORATORY SERVICES ABS Eosinophils 0.03 0.03 - 0.61 [facility]ORATORY SERVICES ABS Basophils 0.05 0.01 - 0.11 [facility] K/[facility]ATORY SERVICES Type of Diff: Automated [facility] Specimen Blood specimen (specimen) - Blood Performing Organization Address City/State/[facility] Code Phon e Number [facility] [address] [place] [address] SERVICES (ABNORMAL) COMPREHENSIVE METABOLIC PANEL (CMP) (06/23/2014 13:39 EST) Pathologist Sig nature Potassium 4.6 3.5 - 5.0 mEq/L [facility] Sodium 143 136 - 145 mEq/L [facility] Chloride 102 96 - 110 mEq/L [facility] CO2 30 24 - 32 mEq/L [facility] Total Alkaline 54 38 - 126 U/L [facility] Phosphatase LABORATORY SERVICES Bilirubin, Total <0.5 <1.4 mg/dl [facility] AST 16 15 - 46 U/L [facility] ALT 26 21 - 72 U/L [facility] Albumin 4.4 3.4 - 4.9 g/dl [facility] Total Protein 6.7 6.5 - 8.3 g/dl [facility] Creatinine 1.20 0.66 - 1.25 [facility] mg/dl LAB[facility]ORY SERVICES GFR, Calculated 60 (L) >60 [facility] ml/min/1.73m2 LAB[facility] SERVICES BUN 25 10 - 26 mg/dl [facility] Calcium 9.6 8.5 - 10.5 [facility] mg/dl LAB[facility]ORY SERVICES Calculated Calcium 9.6 8.5 - 10.5 [facility] mg/dl [facility] Glucose, Serum 121 (H) 70 - 100 mg/dl [facility] Fasting? Unknown [facility] Specimen Blood specimen (specimen) - Blood Performing Organization Address City/State/ZIP Code Phon e Number [facility] [address] [place] [address] SERVICES documented in this encounter Visit Diagnoses Diagnosis Inflammatory arthritis Unspecified inflammatory polyarthropathy documented in this encounter Care Teams Counseling Aide Relationship Specialty Start Date End Date Dereck Schultz MD PCP - General 10/19/08 02/12/[address] [place] [phone] documented as of this encounter
--- OUTSIDE RECORDS SUMMARY | 2021-12-21 01:24 | XMS_ITS | Encounter Summary ---
:1945 Author Organization [facility] Address [address] [place] [address] Care Team Providers Name Role Phone Dereck Schultz MD Primary Care Provider [phone] Encounter Details Date Type Department Care Team Description 09/22/2013 Hospital Encounter [facility] Unknown, P MD ophelia [facility] [address] [facility]. [address] [place] [address] [place] MD Nancy [address] [place] [address] Social History Tobacco Use Types [...] as of this encounter Discharge Diagnoses Diagnosis 354.0 CARPAL TUNNEL SYNDROME[ICD-9-CM] 354.2 ULNAR NERVE LESION[ICD-9-CM] documented in this encounter Medications at Time of Discharge Medication Sig Dispensed Refills Start Date End Date finasteride (PROSCAR) 5 mg Take 5 mg by mouth 0 tablet daily. acetaminophen (TYLENOL) Take 1 Tab by mouth 60 Tab 3 01/03/2014 650 mg tablet every 4 hours as needed for Pain. aspirin chewable 81 mg Take 81 mg by mouth 0 12/07/2018 tablet daily. HYDROcodone-acetaminophen Take 2 Tabs by 0 03/29/2015 (VICODIN) 5-300 mg tablet mouth at bedtime. ibuprofen (MOTRIN) 200 mg Take 200 mg by 0 12/15/2020 tablet mouth every 6 hours as needed for Pain. metoprolol (LOPRESSOR) 25 Take 25 mg by mouth 0 11/17/2019 mg tablet daily. omeprazole (PRILOSEC) 20 Take 40 mg by mouth 0 05/11/2019 mg capsule daily. PREDNISONE ORAL Take 20 mg by mouth daily 20 mg alt with 10 mg. 0 02/07/2014 simvastatin (ZOCOR) 40 mg Take 40 mg by mouth 0 11/09/2020 tablet every evening. documented as of this encounter Discharge Disposition Disposition Code Departure Means Destination Home or Self Long Term documented in this encounter Procedure Notes Melchor Chan MD - 09/22/2013 1533 EDT [facility] ELECTRODIAGNOSTIC MEDICINE CONSULTATION - 09/22/2013 Major Turner MD [facility] - Rheumatology [address] [place] [address] Turner: Thank you for your [...] left lumbosacral radiculopathy or plexopathy. Sincerely yours, Melchor Chan MD 10 13 AM - Melchor Chan MD jn Dictation ID: [id number] cc: Major Turner MD, [facility] - Rheumatology [address] [place] [address] [id number] signed by Melchor Chan MD at 09/28/2013 15:51 EDT documented in this encounter Plan of Treatment Upcoming Encounters Date Type Specialty Care Team Description 12/27/2021 Office Visit Hematology and Erin Barillas M D Oncology [address] [place] [address] 2 [place] [phone] (Wo rk) 02/14/2022 Office Visit Hematology and Erin Barillas M D Oncology 111 [facility] 2 [place] [phone] (Wo rk) 04/25/2022 Ancillary Procedure Cardiology 04/25/2022 Office Visit Cardiology Claire Lopez NP [address] [facility] [address] [place] [phone] (Wo rk) 05/13/2022 Office Visit Rheumatology Tod Perez NP [address] [address] (Wo rk) Pending Results Name Type Priority Associated Diagnoses Date/Ti me OUTSIDE CD - OTHER NEURO Imaging 05/2014 11:52 EDT Scheduled Orders Name Type Priority Associated Diagnoses Order S chedule OUTSIDE CD - OTHER Imaging One Time for 1 NEURO Occurrences sta rting 01/25/2014 unti l 01/25/2014 documented as of this encounter Procedures Procedure Name Priority Date/Time Associated Diagnosis Comme nts ELECTROMYOGRAM - SCANNED 09/22/2013 11:43 EDT documented in this encounter Visit Diagnoses Not on filedocumented in this encounter Orders Procedures Count Last Ordered Date First Ordered Date ELECTROMYOGRAM - SCANNED 1 09/22/2013 documented in this encounter Care Teams Industrial X Ray Operator Relationship Specialty Start Date End Date Dereck Schultz MD PCP - General 10/19/08 02/12/17 [address] [place] [phone] documented as of this encounter
--- OUTSIDE RECORDS SUMMARY | 2021-12-21 01:24 | XMS_ITS | Encounter Summary ---
:1945 Author Organization [facility] Address [address] [place] [address] Care Team Providers Name Role Phone Dereck Schultz MD Primary Care Provider [phone] Reason for Visit Reason Comments Follow-up has decreased prednisone to 20 mg without any increase in pain. Encounter Details Date Type Department Care Team Description 11/18/2013 Office Visit [facility] Major Turner Inflam matlisa polyarthritis ([facility]) (Primary Dx); Rheumatology & Numbness and tingling in left hand; Immunology - Main Rash and o ther nonspecific skin eruption [place] [address] [place] [address] Social History Tobacco Use Types [...] Reading Time Taken Comments Blood Pressure 120/70 11/18/2013 1448 EDT Pulse 62 11/18/2013 1448 EDT Temperature - - Respiratory Rate - [...] Discharge Diagnoses Diagnosis 714.9 INFLAMM POLYARTHROP NOS[ICD-9-CM] 782.0 SKIN SENSATION DISTURB[ICD-9-CM] 782.1 NONSPECIF SKIN ERUPT NEC[ICD-9-CM] documented in this encounter Patient Instructions Patient InstructionsMajor Turner MD - 11/18/2013 15:19 EDT Reduce prednisone to 1/2 tablet one day with 1 tablet the next day for 3 weeks, the 1/2 tablet daily documented in this encounter Progress Notes Major Turner MD - 11/18/2013 1226 EDT Division of Rheumatology and Clinical Immunology Chief Complaint Patient presents with ??? Follow-up has decreased prednisone to 20 mg without any increase in pain. HPI: Return visit for this 68-year-old male with inflammatory polyarthritis. This has been associated with tingling in the left hand, thought to be due to carpal tunnel syndrome. He reports no significant pain since he was last here when his prednisone dose was reduced from 30 to 20 mg per day. He does have fairly constant tingling in the 3rd and 4th fingers of the left hand, but no change in sensation, and his hand function is normal. He has otherwise been quite comfortable. Current Outpatient Prescriptions Medication Sig Dispense Refill [...] ORAL Take 20 mg by mouth daily . ??? 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 Numbness/tingling x Eye [...] x Hair Loss x PHYSICAL EXAMINATION: BP 120/70 Pulse 62 He is well appearing and in no distress. On joint exam, there is no swelling or pain in the DIP, PIP, or MCP joints. Wrists, elbows, shoulders, hips, knees, and ankles reveal no pain with passive motion. Midfoot and MTP joints are nontender. Tinel's sign is negative at the wrists. There was also an approximately 1 cm superficial area of erythema with central clearing on the volaraspect of the left forearm. This was not tender to palpation. LABS Phlebotomy Only on 09/15/2013 Component Date [...] Assessment: 1. Inflammatory polyarthritis, much improved. 2. Continued tingling in the 3rd and 4th fingers of the left hand, which may be due to some residualmedian nerve irritation from this inflammatory process. 3. Solitary skin lesion, left forearm, etiology unclear. On further review, he tells me he has had these spots come up periodically over the last 4 years, but they are not painful and seem to go away within a couple of weeks of when he gets them. Recommendations/Evaluation: I have gone ahead and given him instructions on further reducing his prednisone dose so alternate 20mg 1 day with 10 mg the next day for the next 3 weeks and then to reduce the dose further at 10 mg daily. I will see him again in 6 weeks. Barriers to learning identified: No Patient verbalizes understanding and agrees with plan Yes Major Turner MD 11/18/2013 15:28 documented in this encounter Plan of Treatment Upcoming Encounters Date Type Specialty Care Team Description 12/27/2021 Office Visit Hematology and Erin Barillas M D Oncology [address] [address] (Joi diallo) 02/14/2022 Office Visit Hematology and Erin Barillas M D Oncology [address] [address] (Joi diallo) 04/25/2022 Ancillary Procedure Cardiology 04/25/2022 Office Visit Cardiology Claire Lopez NP 130 [facility] [address] [place] [address] (Joi diallo) 05/13/2022 Office Visit Rheumatology Tod Perez NP 111 [facility], [facility] 5 [place] [address] (Joi diallo) documented as of this encounter Visit Diagnoses Diagnosis Inflammatory polyarthritis (HCC-CMS) (HC C) - Primary Unspecified inflammatory polyarthropathy Numbness and tingling in left hand Disturbance of skin sensation Rash and other nonspecific skin eruption documented in this encounter Care Teams Welder Tack Relationship Specialty Start Date End Date Dereck Schultz MD PCP - General 10/19/08 02/12/[address] [place] [phone] documented as of this encounter
--- OUTSIDE RECORDS SUMMARY | 2021-12-21 01:24 | XMS_ITS | Encounter Summary ---
:1945 Author Organization [facility] Address [address] [place] [address] Care Team Providers Name Role Phone Dereck Schultz MD Primary Care Provider [phone] CelioRebecca oropeza [facility] Primary Care Provider Lawanda Teran [facility] Primary Care Provider [phone] Dereck Schultz MD Primary Care Provider [phone] Layne Cai MD Primary Care Provider Claire Lopez BANK CASHIER Unavailable Tod Perez BANK CASHIER Unavailable Reason for Referral Other Type (48 Hrs (Urgent)) - Closed Specialty Diagnoses / Procedures Referred By Contact Refer red To Contact Diagnoses Unspecified inflammatory polyarthropathy Encounter for long-term (current) use of other medications Major Turner MD [address] [place] [address] Referral ID Status Reason Start Date Expiration Date Visits Requ ested Visits Authorized [id number] Closed Other 06/27/2014 1 1 Question Answer Medication to be Prior Authorized: Methotrexate 6 tabs once weekly. (pt needs refill) Comments The purpose of this consult request is t o inform the scheduling staff that a medication needs to be prior-authorized before it is prescribed and/or administered. Reason for Visit Reason Onset Date Comments Medications Refill 06/27/2014 Encounter Details Date Type Department Care Team Description 06/27/2014 Refill [facility] Major Turner MD Med ications Refill Rheumatology [place] [address] Social History Tobacco Use Types Packs/Day Years [...] Telephone Encounter - Zari Mccabe RN - 06/27/2014 1415 EST From: Praneeth Villanueva To: Major Turner MD Sent: 06/27/2014 14:00 EST Subject: Medication Renewal Request Original authorizing provider: MD Praneeth Odom would like a refill of the following medications: methotrexate 2.5 mg tablet [Major Turner MD] [id number] Comment: I have tried twice now to warehouse order picker this Methotrexate prescription and the pharmacy tells me they need a prior authorization. Please advise when this has been sent. Thank you. Augustina Villanueva documented in this encounter Plan of Treatment Upcoming Encounters Date Type Specialty Care Team Description 12/27/2021 Office Visit Hematology and Erin Barillas M D Oncology [address] [place] [address], [address] [place] [address] (Wo rk) 02/14/2022 Office Visit Hematology and Erin Barillas M D Oncology 111 [facility] 2 [place] [address] (Wo rk) 04/25/2022 Ancillary Procedure Cardiology 04/25/2022 Office Visit Cardiology Claire Lopez , FESTUS 130 [facility] [address] [place] [address] (Wo rk) 05/13/2022 Office Visit Rheumatology Tod Perez NP 111 [facility], [facility] 5 [place] [address] (Wo rk) Scheduled Referrals Name Type Priority Associated Diagnoses Order S chedule AMB MEDICATION PRIOR Outpatient Routine Unspecified Ordered : AUTHORIZATION Referral inflammatory 06/27/2014 polyarthropathy Encounter for long-term (current) use of other medications documented as of this encounter Visit Diagnoses Diagnosis Unspecified inflammatory polyarthropathy - Primary Encounter for long-term (current) use of other medications documented in this encounter Additional Health Concerns Infection Onset Date Last Indicated Resolved Time R/O COVID-19 12/28/2020 12/28/2020 01/02/2021 22:15 EDT documented as of this encounter Care Teams Sales Specialist Relationship Specialty Start Date End Date Dereck Schultz MD PCP - General 10/19/08 02/12/17 [address] [place] [phone] Rebecca Pickens FNP PCP - General 02/13/17 11/23/17 [address] [place] [address] Lawanda Teran PCP - General 11/24/1703/17 [facility] [address] [facility] [place] [address] Dereck Schultz MD PCP - General 04/07/19 04/04/[address] [place] [phone] Layne Cai MD PCP - General 04/05/20 [address] [place] [phone] Claire Lopez NP Cardiovascular Disease 11/22/20 130 [facility] [address] [phone] Tod Perez NP Rheumatology 12/28/[address] [place] [address], [address] [place] [address] documented as of this encounter
--- OUTSIDE RECORDS SUMMARY | 2021-12-21 01:24 | XMS_ITS | Encounter Summary ---
:1945 Author Organization [facility] Address [address] [place] [address] Care Team Providers Name Role Phone Dereck Schultz MD Primary Care Provider [phone] Reason for Visit Reason Comments Joint Pain shoulders Encounter Details Date Type Department Care Team Description 05/10/2014 Office Visit [facility] Major Turner Inflam matory arthritis (Primary Dx); Rheumatology & Pain in joint , multiple sites Immunology - Main [place] [address], [place] [id number] Social History Tobacco Use Types Packs/Day Years [...] Sign Reading Time Taken Comments Blood Pressure 159/85 05/10/2014 1458 EST Pulse 64 05/10/2014 1458 EST Temperature - - Respiratory Rate 18 05/10/2014 1458 EST Oxygen Saturation - - Inhaled Oxygen Concentration - - Weight 113.4 kg (250 lb) 05/10/2014 1458 EST Height - - Body Mass Index 34.87 10/11/2013 1253 EDT documented in this encounter Functional Status Cognitive Status Response Date of Assessment Because of a physical, mental, or emotional condition, do Ye s 04/08/2012 you have serious difficulty concentrating, remembering, or making decisions? (5 years old or older) documented as of this encounter Discharge Diagnoses Diagnosis 714.9 INFLAMM POLYARTHROP NOS[ICD-9-CM] 719.49 JOINT PAIN-MULT JTS[ICD-9-CM] documented in this encounter Ordered Prescriptions Prescription Sig Dispensed Refills Start Date End Date folic acid (FOLVITE) 1 mg Take 1 Tab by mouth 100 Tab 3 1 07/10/2013 12/19/2014 tablet daily. methotrexate 2.5 mg 4 tablets once a 20 Tab 3 05/10/2014 05/30/2014 tablet week. documented in this encounter Progress Notes Major Turner MD - 05/10/2014 0097 EST Division of Rheumatology and Clinical Immunology Chief Complaint Patient presents with ??? Joint Pain shoulders HPI: Return visit for this 68-year-old male with a seronegative inflammatory arthritis. Since my last visit with him, he has had increasing difficulty with pain in both shoulders so much so that he went to the emergency room a couple weeks ago and received a steroid injection in his left shoulder, which helped for a few days. 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 He also has some pain initially hands and wrists. He has no significant lower extremity joint pain. Current Outpatient Prescriptions Medication Sig Dispense Refill ??? aspirin chewable 81 mg tablet Take 81 mg by mouth daily. ??? finasteride (PROSCAR) 5 mg tablet Take 5 mg by mouth daily. ??? folic acid (FOLVITE) 1 mg tablet Take 1 Tab by mouth daily. 100 Tab 3 ??? gabapentin (NEURONTIN) 100 mg capsule Take 2 Caps by mouth 3 times daily. 180 Cap 5 ??? HYDROcodone-acetaminophen (VICODIN) 5-300 mg tablet Take 2 Tabs by mouth at bedtime. ??? ibuprofen (MOTRIN) 200 mg tablet Take 200 mg by mouth every 6 hours as needed for Pain. ??? methotrexate 2.5 mg tablet 4 tablets once a week. 20 Tab 3 ??? 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 Numbness/tingling x Eye discomfort [...] x Hair Loss x PHYSICAL EXAMINATION: BP 159/85 Pulse 64 Resp 18 Wt 113.399 kg (250 lb) BMI 34.88 kg/m2 He is well appearing and in no acute distress. HEENT exam: Temporal arteries are palpable, pulsatile, not tender and not thickened. Eyes: Pupils round, reactive to light. Oropharynx: No lesions. There is no palpable cervical, supraclavicular or axillary lymphadenopathy. Lungs clear to auscultation. Heart regular rate and rhythm without murmur, rub or gallop. On joint exam, he had no swelling or tenderness in the DIP joints. There was mild swelling but no tenderness in the PIP and MCP joints except for the right 3rd MCP joint where there was 1+ tenderness. There was mild to moderate swelling in the wrists, but at 70 degrees of flexion, extension of the left wrist without pain. Right wrist revealed mild pain at 60 degrees of extension, 70 degrees of flexion in the right wrist was without pain. Elbows reveal full range of motion without significant pain. Shoulders revealed mild to moderate pain with abduction at 60 to 70 degrees. External rotation was mildly painful at 60 degrees, internal rotation was moderately painful at 50 degrees and Smith sign was positive bilaterally, Neer sign was negative. Hips, knees and ankles reveal no pain with passive motion. Mid foot and MTP joints are nontender. LABS No visits with results within 3 [...] 09/15/2013 4 Imaging: Diagnosis / Assessment: 1. Seronegative inflammatory arthropathy with increasing synovitis and periarthritis. 2. Bilateral shoulder pain, likely due to a combination of synovitis and rotator cuff tendinopathy. Recommendations/Evaluation: Begin methotrexate 10 mg once a week, folic acid 1 mg per day. He will take an extra 5 mg of prednisone each evening along with his current morning dose of prednisone, which is 9 mg a day. He was provided with a methotrexate information sheet. I did review with him the possible side effects. He knows to drink no alcohol. I will see him back in about a month. Barriers to learning identified: No Patient verbalizes understanding and agrees with plan Yes Major Turner MD 05/10/2014 15:34 documented in this encounter Plan of Treatment Upcoming Encounters Date Type Specialty Care Team Description 12/27/2021 Office Visit Hematology and Erin Barillas M D Oncology [address] [place] [address] [address] [place] [address] (Wo rk) 02/14/2022 Office Visit Hematology and Erin Barillas M D Oncology [address] [facility], [facility], [address] [place] [address] (Wo rk) 04/25/2022 Ancillary Procedure Cardiology 04/25/2022 Office Visit Cardiology Jessica ClaireFESTUS najera [address] [facility] [address] [place] [address] (Wo rk) 05/13/2022 Office Visit Rheumatology Tod Perez NP [address] [facility], [address] [place] [address] (Wo rk) documented as of this encounter Results SS-B/LA ANTIBODY, IGG, SERUM (05/10/2014 15:37 EST) Pathologist Sig nature SS B/La Ab, IgG, S <0.2 <1.0 (Negative) U [facility] LABORATORY SERVICES Specimen Blood specimen (specimen) - Blood Performing Organization Address City/[facility]/ZIP Code Phon e Number [facility] LABORATORY [address] [place] [address] SERVICES SS-A/RO ANTIBODY, IGG, SERUM (05/10/2014 15:37 EST) Pathologist Sig nature SS A/Ro Ab, IgG, S 0.3 <1.0 (Negative) U [facility] LABORATORY SERVICES Specimen Blood specimen (specimen) - Blood Performing Organization Address City/State/ZIP Code Phon e Number [facility] LABORATORY [address] [place] [address] SERVICES (ABNORMAL) URINALYSIS (05/10/2014 15:37 EST) Pathologist Sig nature Color, UA Yellow [facility] LABORATORY SERVICES Clarity, UA Clear [facility] LABORATORY SERVICES Glucose, UA Neg Neg [facility] LABORATORY SERVICES Bilirubin, UA Neg Neg [facility] LABORATORY SERVICES Ketones, UA Neg Neg [facility] LABORATORY SERVICES Specific [place], 1.025 1.001 - 1.035 [facility] Urine LABORATORY SERVICES Blood, UA 2+ (A) Neg [facility] LABORATORY SERVICES pH, UA 5.5 4.6 - 8.0 [facility] LABORATORY SERVICES Protein, UA Neg Neg [facility] LABORATORY SERVICES Urobilinogen, UA 0.2 0.2 - 1.0 [facility] E.U./dl LABORATORY SERVICES Nitrite, UA Neg Neg [facility] LABORATORY SERVICES Leuk Esterase Neg Neg [facility] LABORATORY SERVICES Specimen Urine (substance) - Urine Performing Organization Address [facility] LABORATORY [address] [place] [address] SERVICES C4 COMPLEMENT (05/10/2014 15:37 EST) Pathologist Sig nature C4 Complement 27 16 - 38 mg/dl [facility] LABORAT ORY SERVICES Specimen Blood specimen (specimen) - Blood Performing Organization Address [facility] LABORATORY [address] [place] [address] SERVICES C3 COMPLEMENT (05/10/2014 15:37 EST) Pathologist Sig nature C3 Complement 135 79 - 152 mg/dl [facility] LABORATORY SERVICES Specimen Blood specimen (specimen) - Blood Performing Organization Address [facility] LABORATORY [address] [place] [address] SERVICES ANTI DNA (DOUBLE STRAND) (05/10/2014 15:37 EST) Pathologist Sig nature Anti DNA (DS) <12.3 <30 IU/mL [facility] Comment: LABORATORY SERVICES The following results were obtained with the [facility] [employer] QUANTA Lite dsDNA SC Yue assay on the [employer] DSX. Specimen Blood specimen (specimen) - Blood Performing Organization Address [facility] LABORATORY [address] [place] [address] SERVICES ANTI NUCLEAR ANTIBODY (05/10/2014 15:37 EST) Pathologist Sig nature Anti Nuclear Ab <40 0 - 40 Dils [facility] LABORA TORY SERVICES Specimen Blood specimen (specimen) - Blood Performing Organization Address [facility] LABORATORY [address] [place] [address] SERVICES ANCA (05/10/2014 15:37 EST) Pathologist Sig nature ANCA Neg Neg [facility] Y SERVICES Specimen Blood specimen (specimen) - Blood Performing Organization Address [facility]/ZIP Code Phon e Number [facility] LABORATORY [address] [place] [address] SERVICES HEPATITIS C ANTIBODY (05/10/2014 15:37 EST) Pathologist Sig nature Hepatitis C Ab NegativeComment: [facility] Reference Range: LABORATORY SERVICES Negative Specimen Blood specimen (specimen) - Blood Performing Organization Address [facility]/ZIP [facility] Phon e Number [facility] LABORATORY [address] [place] [address] SERVICES HEPATITIS B SURFACE ANTIGEN (05/10/2014 15:37 EST) Hepatitis B NegativeComment: [facility] Surface Ag Reference Range: LABORATORY SERVICES Negative Specimen Blood specimen (specimen) - Blood Performing Organization Address [facility]/ZIP [facility] Phon e Number [facility] LABORATORY [address] [place] [address] SERVICES SED. RATE:WESTERGREN (05/10/2014 15:37 EST) Pathologist Sig nature Sed. Rate Westergren 5 0 - 20 mm/hr [facility] LABORATORY SERVICES Specimen Blood specimen (specimen) - Blood Performing Organization Address City/[facility]/ZIP Code Phon e Number [facility] LABORATORY [address] [place] [address] SERVICES (ABNORMAL) C-REACTIVE PROTEIN (05/10/2014 15:37 EST) Pathologist Sig nature C-Reactive Protein 2.9 (H) <1.0 mg/dl [facility] LABORATORY SERVICES Specimen Blood specimen (specimen) - Blood Performing Organization Address [facility]/ZIP [facility] Phon e Number [facility] LABORATORY [address] [place] [address] SERVICES (ABNORMAL) HEMAGRAM AND DIFFERENTIAL (05/10/2014 15:37 EST) Pathologist Sig nature WBC 7.48 4.0 - 10.4 K/cmm [facility] LABORATORY SERVICES RBC 4.91 4.36 - 5.78 [facility] M/cmm LABORATORY SERVICES Hemoglobin 14.4 13.8 - 17.3 [facility] gm/dl LABORATORY SERVICES HCT 43.3 39.5 - 50.2 % [facility] LABORATORY SERVICES MCV 88 81 - 95 fl [facility] LABORATORY SERVICES MCH 29.4 27.6 - 33.0 pg [facility] LABORATORY SERVICES MCHC 33.3 32.8 - 36.4 [facility] gm/dl LABORATORY SERVICES PLT 220 141 - 320 K/cmm [facility] LABORATORY SERVICES RDW-CV 14.5 (H) 11.8 - 14.1 % [facility] LABORATORY SERVICES Neutrophils 74.2 45.5 - 79.7 % [facility] LABORATORY SERVICES Lymphocytes 17.0 15.0 - 46.8 % [facility] LABORATORY SERVICES Monocytes 8.0 1.8 - 12.0 % [facility] LABORATORY SERVICES Eosinophils 0.3 (L) 0.6 - 6.9 % [facility] LABORATORY SERVICES Basophils 0.5 0.2 - 1.4 % [facility] LABORATORY SERVICES ABS Neutrophils 5.54 2.20 - 8.85 [facility] K/[facility] LABORATORY SERVICES ABS Lymphs 1.27 1.09 - 3.30 [facility], [facility] LABORATORY SERVICES ABS Monocytes 0.60 0.1 - 0.8 /[facility] LABORATORY SERVICES ABS Eosinophils 0.02 (L) 0.03 - 0.61 [facility] LABORATORY SERVICES ABS Basophils 0.04 0.01 - 0.11 [facility] LABORATORY SERVICES Type of Diff: Automated [facility] LABORATORY SERVICES Specimen Blood specimen (specimen) - Blood Performing Organization Address City/State/ZIP Code Phon e Number [facility] LABORATORY [address] [place] [address] SERVICES (ABNORMAL) COMPREHENSIVE METABOLIC PANEL (CMP) (05/10/2014 15:37 EST) Pathologist Sig nature Potassium 4.7 3.5 - 5.0 mEq/L [facility] LABORATORY SERVICES Sodium 141 136 - 145 mEq/L [facility] LABORATORY SERVICES Chloride 105 96 - 110 mEq/L [facility] LABORATORY SERVICES CO2 25 24 - 32 mEq/L [facility] LABORATORY SERVICES Total Alkaline 62 38 - 126 U/L [facility] Phosphatase LABORATORY SERVICES Bilirubin, Total <0.5 <1.4 mg/dl [facility] LABORATORY SERVICES AST 22 15 - 46 U/L [facility] LABORATORY SERVICES ALT 32 21 - 72 U/L [facility] LABORATORY SERVICES Albumin 4.5 3.4 - 4.9 g/dl [facility] LABORATORY SERVICES Total Protein 6.8 6.5 - 8.3 g/dl [facility] LABORATORY SERVICES Creatinine 0.90 0.66 - 1.25 [facility] mg/dl LABORATORY SERVICES GFR, Calculated >60 >60 [facility] ml/min/1.73m2 LABORATORY SERVICES BUN 25 10 - 26 mg/dl [facility] LABORATORY SERVICES Calcium 9.9 8.5 - 10.5 [facility] mg/dl LABORATORY SERVICES Calculated Calcium 9.8 8.5 - 10.5 [facility] mg/dl LABORATORY SERVICES Glucose, Serum 134 (H) 70 - 100 mg/dl [facility] LABORATORY SERVICES Fasting? Unknown [facility] LABORATORY SERVICES Specimen Blood specimen (specimen) - Blood Performing Organization Address City/State/ZIP Code Phon e Number [facility] LABORATORY [address] [place] [address] SERVICES documented in this encounter Visit Diagnoses Diagnosis Inflammatory arthritis - Primary Unspecified inflammatory polyarthropathy Pain in joint, multiple sites documented in this encounter Care Teams Guest Service Supervisor Relationship Specialty Start Date End Date Dereck Shcultz MD PCP - General 10/19/08 02/12/[address] [place] [address] documented as of this encounter
--- OUTSIDE RECORDS SUMMARY | 2021-12-21 01:24 | XMS_ITS | Encounter Summary ---
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, Darrick herrera arthritis; - [facility] Outpatient LBP (low back pain) [address] [place] [address] Social History Tobacco Use Types Packs/Day Years [...] and Erin Barillas M D Oncology [address] [facility], [address] [place] [address] (Wo rk) 02/14/2022 Office Visit Hematology and Erin Barillas M D Oncology [address] [facility], [facility] [address] [place] [address] (Wo rk) 04/25/2022 Ancillary Procedure Cardiology 04/25/2022 Office Visit Cardiology Claire Lopez , FESTUS [address] [facility] [address] [place] [address] (Wo rk) 05/13/2022 Office Visit Rheumatology Tod Perez NP [address] [facility], [facility] [address] [place] [address] (Wo rk) documented as of this encounter Procedures Procedure Name Priority Date/Time Associated Diagnosis Comme nts COMPLETE BLOOD COUNT Routine 09/20/2014 15:43 Inflammatory Res ults for this AND DIFFERENTIAL EDT arthritis procedure are in LBP (low back pain) the resu lts section. COMPREHENSIVE Routine 09/20/2014 15:43 Inflammatory Results fo r this METABOLIC PANEL (CMP) EDT arthritis procedure are in LBP (low back pain) the resu lts section. documented in this encounter Results (ABNORMAL) HEMAGRAM AND DIFFERENTIAL (09/20/2014 15:43 EDT) Pathologist Sig nature WBC 7.10 4.0 - 10.4 K/cmm [facility] LABORATORY SERVICES RBC 4.73 4.36 - 5.78 [facility] M/cmm LABORATORY SERVICES Hemoglobin 14.7 13.8 - 17.3 [facility] gm/dl LABORATORY SERVICES HCT 43.7 39.5 - 50.2 % [facility] LABORATORY SERVICES MCV 92 81 - 95 fl [facility] LABORATORY SERVICES MCH 31.1 27.6 - 33.0 pg [facility] LABORATORY SERVICES MCHC 33.7 32.8 - 36.4 [facility] gm/dl LABORATORY SERVICES RDW-CV 15.7 (H) 11.8 - 14.1 % [facility] LABORATORY SERVICES RDW-SD 49.4 (H) 36.5 - 45.9 fl [facility] LABORATORY SERVICES PLT 210 141 - 320 [facility] MPV 9.7 7.5 - 11.2 fl [facility] LABORATORY SERVICES Neutrophils 65.9 45.5 - 79.7 % [facility] LABORATORY SERVICES Lymphocytes 24.7 15.0 - 46.8 % [facility] LABORATORY SERVICES Monocytes 7.9 1.8 - 12.0 % [facility] LABORATORY SERVICES Eosinophils 0.9 0.6 - 6.9 % [facility] LABORATORY SERVICES Basophils 0.6 0.2 - 1.4 % [facility] LABORATORY SERVICES ABS Neutrophils 4.68 2.20 - 8.85 [facility] K/[facility] LABORATORY SERVICES ABS Lymphs 1.76 1.09 - 3.30 [facility] LABORATORY SERVICES ABS Monocytes 0.56 0.1 - 0.8 K/[facility] LABORATORY SERVICES ABS Eosinophils 0.06 0.03 - 0.61 [facility] K/[facility] LABORATORY SERVICES ABS Basophils 0.04 0.01 - 0.11 [facility] K/[facility] LABORATORY SERVICES Type of Diff: Automated [facility] LABORATORY SERVICES Specimen Blood specimen (specimen) - Blood Performing Organization Address City/State/ZIP Code Phon e Number [facility] LABOR[facility] [address] [place] [address] SERVICES (ABNORMAL) COMPREHENSIVE METABOLIC PANEL (CMP) (09/20/2014 15:43 EDT) Pathologist Sig nature Potassium 4.5 3.5 - 5.0 mEq/L [facility] LABORATORY SERVICES Sodium 143 136 - 145 mEq/L [facility] LAB[facility] SERVICES Chloride 100 96 - 110 mEq/L [facility]ORATORY SERVICES CO2 30 24 - 32 mEq/L [facility] LABORATORY SERVICES Total Alkaline 64 38 - 126 U/L [facility] Phosphatase LABORATORY SERVICES Bilirubin, Total 0.6 <1.4 mg/dl [facility] LABORATORY SERVICES AST 22 15 - 46 U/L [facility] LABORATORY SERVICES ALT 38 21 - 72 U/L [facility] LABORATORY SERVICES Albumin 4.5 3.4 - 4.9 g/dl [facility] LABORATORY SERVICES Total Protein 6.7 6.5 - 8.3 g/dl [facility] LABORATORY SERVICES Creatinine 1.01 0.66 - 1.25 [facility] mg/dl LABORATORY SERVICES GFR, Calculated >60 >60 [facility] ml/min/1.73m2 LABORATORY SERVICES BUN 19 10 - 26 mg/dl [facility] LABORATORY SERVICES Calcium 9.7 8.5 - 10.5 [facility] mg/dl LABORATORY SERVICES Calculated Calcium 9.6 8.5 - 10.5 [facility] mg/dl LABORATORY SERVICES Glucose, Serum 102 (H) 70 - 100 mg/dl [facility] LABORATORY SERVICES Fasting? No [facility] LAB[facility] SERVICES Specimen Blood specimen (specimen) - Blood Performing Organization Address City/State/ZIP Code Phon e Number [facility] LABOR[facility] [address] [place] [address] SERVICES documented in this encounter Visit Diagnoses Diagnosis Inflammatory arthritis Unspecified inflammatory polyarthropathy LBP (low back pain) Lumbago documented in this encounter Care Teams Clinic Nurse Relationship Specialty Start Date End Date Dereck Schultz MD PCP - General 10/19/08 02/12/[address] [place] [phone] documented as of this encounter
--- OUTSIDE RECORDS SUMMARY | 2021-12-21 01:24 | XMS_ITS | Encounter Summary ---
:1945 Author Organization [facility] Address [address] [place] [address] Care Team Providers Name Role Phone Dereck Schultz MD Primary Care Provider [phone] Reason for Visit Reason Onset Date Comments Appointment Related 09/16/2013 09/22/13 Encounter Details Date Type Department Care Team Description 09/16/[address] [facility] Major Turner, Christiano cornelius Related Rheumatology & MD (09/22/13) Immunology - Main [place] [facility] [address] [place] [address] Social History Tobacco Use Types [...] Telephone Encounter - Zari Mccabe RN - 09/17/2013 0844 EDT Msg left for pt with EMG appt day and time. elephone Encounter - Shruthi Martel - 09/16/2013 1639 EDT Remi Archibald pt is scheduled for EMG 09/22/13 at 9:15, check in 9:00 at [facility], no need to go to Registration. Requests we contact the pt and give them their number for call back - [phone]. documented in this encounter Plan of Treatment Upcoming Encounters Date Type Specialty Care Team Description 12/27/2021 Office Visit Hematology and Erin Barillas M D Oncology [address] [place] [phone] (Joi diallo) 02/14/2022 Office Visit Hematology and Erin Barillas M D Oncology [address] [place] [phone] (Wo rk) 04/25/2022 Ancillary Procedure Cardiology 04/25/2022 Office Visit Cardiology Claire Lopez NP [address] [facility] [address] [place] [phone] (Wo rk) 05/13/2022 Office Visit Rheumatology Tod Perez NP [address] [facility] 5 [place] [address] (Wo rk) documented as of this encounter Visit Diagnoses Not on filedocumented in this encounter 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
--- OUTSIDE RECORDS SUMMARY | 2021-12-21 01:25 | XMS_ITS | Encounter Summary ---
:1945 Author Organization [facility] Address [address] [place] [address] Care Team Providers Name Role Phone Dereck Narvaez MD Primary Care Provider [phone] Encounter Details Date Type Department Care Team Description 11/17/2007 Results Only [facility] Deon ellis MD conversion [address] [place] [phone] Social History Tobacco Use Types Packs/Day Years Used Date Never Assessed Sex Assigned at Date Recorded Not on file documented as of this encounter Plan of Treatment Upcoming Encounters Date Type Specialty Care Team Description 12/27/2021 Office Visit Hematology and Erin Barillas M D Oncology [address] [phone] (Joi diallo) 02/14/2022 Office Visit Hematology and Erin Barillas M D Oncology [address] [phone] (Joi diallo) 04/25/2022 Ancillary Procedure Cardiology 04/25/2022 Office Visit Cardiology Claire Lopez NP [address] [facility] [address] [place] [phone] (Joi diallo) 05/13/2022 Office Visit Rheumatology Tod Perez, FESTUS [address] [facility], [address] [place] [phone] (Joi diallo) documented as of this encounter Procedures Procedure Name Priority Date/Time Associated Diagnosis Comme nts SURGICAL PATHOLOGY Routine 11/17/2007 0:00 EDT Re sults for this procedure are i n the results section. documented in this encounter Results SURGICAL PATHOLOGY (11/17/2007 0:00 EDT) Pathology Report: SURGICAL PATHOLOGY REPORT JOHN BOB Reports generated via electronic interface contain halle ginal data; LAB however they are lacking the format of the original re port. Caution should be taken when reading/interpreting unfo rmatted reports. Name: ? ROBEL DEON ? Accession #: ? [id number] ? : ? 1945 (Age: 62) ??M ? Collect Date: ? 11/17/2007 ? Location: ? [facility] ? Receive Date: ? 008 ? Provider: MISSY VELAZQUEZ MD Copy to: DERECK NARVAEZ MD ? Final Pathologic Diagnosis: A. ?Stomach, polyp, biopsies: 1. ?Fundic gland polyp. B. ?Esophagus, gastroesophageal junction, biopsy: 1. ?Squamocolum silvana-line mucosa with acute and chronic inflammation and reactive epithelial changes. ? - PAS stain for fungal organisms is negative. ?2. ?? Negative for intestinal metaplasi a. ? 3. ?? Negative for H. pylori on H&E. Document reviewed and electronically signed by: Kathy Sahu [facility] Report ??Date: 11/23/2007 14:15 By the signature above, the attending physician certif ies that he/she has personally conducted a gross and/or microscopic examin ation of the described specimens and rendered or confirmed the above diagnosi s. Specimen(s) Received: A. ?Fundic gland polyp B. ? Bx GE junction Clinical History: ? Epigastric pain, dyspepsia Gross Description: ? Received in [employer]e' s fixative labelled [place] and #1 fundic gland polyp are two polypoid biopsies measuring 0.2 x 0.2 x 0.1 cm and 0.4 x 0.3 x 0.2 cm. ??The specimen is submitted intact as (A). Received in Hollande's fixat nathaniel labelled [place] and #2 bx GE junction is a 0.3 x 0.1 x 0.1 cm biopsy. ??The specimen is submitted intact as (B). ??(NITA Bartholomew)/karla End of Report Specimen Performing Organization Address City/State/ZIP Code Phon e Number 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
--- OUTSIDE RECORDS SUMMARY | 2021-12-21 01:25 | XMS_ITS | Encounter Summary ---
:1945 Author Organization [facility] Address [address] [place] [address] Care Team Providers Name Role Phone Dereck Schultz MD Primary Care Provider [phone] Reason for Visit Reason Comments Chest Pain See TCall. Pt sent for ACS, onset of SSCP at 1500, on Nitro gtt at 125 mcg/min, pain free upon arri bel to ED. Denies SOB, n/v upon arrival. Encounter Details Date Type Department Care Team Description 04/07/2012 - [facility] Zabrina Valencia MD [address] [place] [phone] Chest pain; 04/10/2012 Encounter Cardiac/Telemetry Saman Ortega MD [address] [place] [phone] Lipids abnormal; Unit Irena Posey MD [address] [place] [phone] HTN (hypertension); [address] [place] [address] Nguyễn uNnez MD [address] [place] [phone] Unstable angina ([facility]); [place], [place] Dizziness - l ight-headed; [id number] SSS (sick sinus syndrome) ([facility]) [phone] Social History Tobacco Use Types Packs/Day Years Used Date Former Smoker Comments: Quit >30 years ago Alcohol Use [...] Sign Reading Time Taken Comments Blood Pressure 133/74 04/10/2012 0814 EDT Pulse 66 04/09/2012 2321 EDT Temperature 36.8 ??C (98.2 ??F) 04/10/2012 0814 EDT Respiratory Rate 18 04/10/2012 0814 EDT Oxygen Saturation 97% 04/10/2012 0814 EDT Inhaled Oxygen Concentration - - Weight 102.2 kg (225 lb 5 oz) 04/10/2012 0510 EDT Height 188 cm (6' 2.02) 04/08/2012 0051 EDT Body Mass Index 28.92 04/08/2012 0051 EDT documented in this encounter Functional Status Cognitive Status Response Date of Assessment Because of a physical, mental, or emotional condition, do Ye s 04/08/2012 you have serious difficulty concentrating, remembering, or making decisions? (5 years old or older) documented as of this encounter Discharge Summaries Korey Raphael MD - 04/08/2012 1141 EDT Discharge Summary Deon Huston : 1945 [facility] Admission Dates: 04/07/2012 - 04/10/12 Discharge Location: home Chief Complaint/Reason for Admission: Chest pain Principal/Final Diagnosis: Sinus node dysfunction, mild CAD without stenosis Secondary Diagnoses: Past Medical History Diagnosis Date ??? GERD (gastroesophageal reflux disease) ??? Cataract bilateral ??? Biliary colic ??? Hypercholesteremia ??? Enlarged prostate ??? Inguinal hernia bilateral ??? Hypertension ??? Sleep apnea Code Status at time of discharge: Full Code Procedures: Left heart cath Pacemaker placement Follow up Appointments: Dr Mancia in Dr. Schultz office on April 23 at 9:15 for incision check. 6-8 week f/u with Dr. Canchola in [facility] for pacemaker check. Condition at Discharge: Fair Gen: NAD, resting comfortably Chest: CTAB, no w/r/r CV: RRR, S1/S2 normal, no m/r/g Extr: left pacemaker site c/d/i, mild erythema. Right inguinal cath site c/d/i, no bleeding or discharge, no hematoma or mass Pulse: radial pulse 2+ Neuro: A+Ox3, Hospital Course: Mr Huston is a 66 year old male with PMH HLD, HTN, ex-smoker, BPH, with central chest pain radiating into his shoulder with ssociated SOB and nausea. No emesis or diaphoresis noted. He was not exerting himself. Pain would not ease so he went to local ER, and pain resolved when given sublingual nitroand morphine. Commenced on IV nitroglycerin and transferred to [facility] for further care. Does report exertion chest pressure over last month - eased with rest, as well as some exertional SOB over the last1-2 months. On ED visit, he was pain free without SOB or nausea. No hx of palpitations or leg swelling or PND ororthopnea. No headache. His vital signs were within normal limits on room air. Physical exam was unremarkable. Had normal CBC, CMP, PT/PTT/INR, CK, MB, and troponins x 2. ECG showed irregular rhythm with sinus block, normal rate. No ST changes. He was admitted to the telemetry floor, started on heparin gtt, loaded with Plavix, continued on nitro drip, and an echo was ordered. Echo showed EF of 60- 65% with no wall motion abnormalities. Mild L atrial dilation. The patient was scheduled for the crown and bridge dental lab technician on 04/08/12 which showed mild CAD. Of note, patient was noted to have significant mid LAD bridging and sinus pauses during procedure. EP was consulted for this. He was diagnosed with sinus node dysfunction and a pacemaker was placed 04/09/2012. Post-procedure, he remained in NSR with a HR 60-70, asymptomatic, VS were stable. His VS remained stable and within normal limits overnight and on 04/10/12 he reported no problems. He was discharged home with his on 04/10/12 in good condition. Follow up Imaging/Labs required: None. Pacemaker check as above noted in [facility] with Dr. Canchola. Home Medication Instructions Medication Information simvastatin (ZOCOR) 40 mg tablet Take 40 mg by mouth every evening. lisinopril (PRINIVIL, ZESTRIL) 10 mg tablet Take 10 mg by mouth daily. finasteride (PROSCAR) 5 mg tablet Take 5 mg by mouth daily. omeprazole (PRILOSEC) 20 mg capsule Take 20 mg by mouth daily. aspirin chewable 81 mg tablet Take 81 mg by mouth daily. acetaminophen (TYLENOL) 650 mg tablet Take 1 Tab by mouth every 4 hours as needed for Pain. Disposition Data: Medications added include: Tylenol 650mg q4 for pain. Imaging: DIAGNOSTIC STUDY RESULTS: Cardiac: LM: normal LAD: With minor irregs, mid has prominent bridging, D1 50% prox Cx:minor irrges RCA:minor irregs FFR of D 1 is in normal range .94 Note injection of RCA is associated with increased pauses of sinus arrest 5 to 10 secs Echo: 04/08/2012 *STUDY CONCLUSIONS* Summary: 1. Left ventricle: The cavity size was normal. Wall thickness was normal. Systolic function was normal. The estimated ejection fraction was 60-65%. Wall motion was normal; there were no regional wall motion abnormalities. 2. Left atrium: The atrium was mildly dilated. Pertinent Labs: Results for DEON HUSTON ( ) as of 04/10/2012 11:13 Ref. Range 04/08/2012 00:08 04/08/2012 00:51 04/08/2012 07:56 Troponin I Latest Range: <0.034 ng/ml <0.034 <0.034 <0.034 Results for DEON HUSTON ( ) as of 04/10/2012 11:13 Ref. Range 04/08/2012 00:51 Cholesterol No range found 111 Triglycerides No range found 117 HDL No range found 22 LDL, Calculated No range found 66 Results for DEON HUSTON ( ) as of 04/10/2012 11:13 Ref. Range 04/08/2012 00:56 Hemoglobin A1C No range found 6.0 Est Avg Glucose No range found 126 Medications at Discharge: Medications prior to admission that will be resumed at discharge: Medication Sig Dispense Refill ??? simvastatin (ZOCOR) 40 mg tablet Take 40 mg by mouth every evening. ??? lisinopril (PRINIVIL, ZESTRIL) 10 mg tablet Take 10 mg by mouth daily. ??? finasteride (PROSCAR) 5 mg tablet Take 5 mg by mouth daily. ??? omeprazole (PRILOSEC) 20 mg capsule Take 20 mg by mouth daily. ??? aspirin chewable 81 mg tablet Take 81 mg by mouth daily. No new medications prescribed at discharge. Last Lab Results at Discharge: CBC: Recent Labs Basename 04/10/1252 04/09/12 0615 04/08/12 0051 WBC 6.57 6.33 6.62 HGB 14.2 13.7* 12.6* PLT 152 152 168 BMP: Recent Labs Basename 04/10/12 0652 04/09/12 0615 04/08/12 0051 NA 138 139 138 K 4.2 4.1 4.4 CL 104 106 108 CO2 23* 23* 24 BUN 17 12 19 CREATININE 0.84 0.93 0.96 Blood Sugar: No results found for this basename: GLUCOSEFINGE:12 in the last 72 hours Coagulation: PT/INR/PTT: --/-- (04/10 652) LFTs: No results found for this basename: ALT:3,AST:3,GGT:3,ALKPHOS:3,TBIL:3,CONJBILI:3,UNCONJBILI:3,TP:3,P REALBUMIN:3,LABALBU:3 in the last 72 hours cc: Dereck Schultz Discharge Summary Completed by Korey Raphael MD Attending at time of discharge: MD Dina. documented in this encounter Discharge Instructions InstructionsKorey Raphael MD - 04/09/2012 DISCHARGE INSTRUCTIONS FOR PATIENTS WITH PACEMAKERS 1. Wound Care: Dermabond adhesive was used: Do not attempt to remove the adhesive. It will disappear in 2-3 weeks. You will NOT have a dressing over the dermabond. Do not apply one. You may shower the next day. Call your physician or nurse if: ?? you develop drainage, redness or swelling at the incision site ?? you develop marked tenderness or bruising over incision site and it does not resolve in 2 days ?? you develop a fever 2. Activity: You can resume most of your normal activities as tolerated, unless you have been instructed otherwise. ?? No vigorous activity with your left / right arm for 4 weeks ?? KEEP YOUR ARM BELOW SHOULDER LEVEL FOR 4 WEEKS AFTER IMPLANT. ?? Do not lift more than 10 pounds with the affected arm for 4 weeks. ?? Avoid rough contact with the generator 3. Additional Instructions: ?? Avoid strong magnetic hussein as they may interfere with your pacemaker. Example: MRI (Magnetic Resonance Imaging). This does NOT include small refrigerator magnets or microwave ovens. ?? Avoid Security Medal Detectors such as when traveling by air please inform the grain elevator agent &airport security of your pacemaker. You must be hand searched verses walking through the medal detector. ?? Know your medicines, keep a list with you and take them as prescribed. ?? Please tell other physicians and dentists that you have a pacemaker. The pacemaker may need to bereprogrammed temporarily for certain procedures. ?? Instructions for the use of cellular phones: Your cellular phone should be held a minimum of 6 inches away from the ICD. It is recommended to hold the cellular phone on the side opposite of your device. ?? Carry your pacemaker identification card with you at all times. A permanent card will be sent to your home in approximately 6-8 weeks. 4. Appointments: ?? You will need to have a wound check approximately 2 weeks post-op. An appointment will be arranged for you prior to your discharge from the hospital. If you do not receive an appointment please callyour primary care physician or [place] [phone] Mancia in Dr. Schultz office on April 23 at 9:15 for a check of your incision. Please call Dr. Canchola's office in [facility] and make an appointment to follow up with him in 6-8 weeks. 5. Follow Up: ?? Your first pacemaker check will be scheduled in three months after implant at your closest choseninic location. You will be reminded of this date by mail ?? Subsequent pacemaker clinic checks will be scheduled either once or twice a year depending on your device. Appointments will be scheduled at your first pacemaker clinic visit. ?? Out Outpatient Cardiology clinic is located at [address] [place] [address] in [place]. ?? Clinics are also held in [facility], [facility]. If you live in those areas, we will make arrangements for follow-up appointments in one of those clinics. ?? Remote Monitors: Depending on where you live and the kind of pacemaker you have. You may be enrolled for a Remote Monitor. The monitor will be mailed to you and will allow you to have your pacemakerchecked over the phone for some scheduled check instead of coming into the clinic. This will also allow you to send information about your pacemaker over the phone in the event you do not feel well. Ifyou receive a remote monitor please bring it to your next clinic visit so you can learn how to use it. Please Note: If we have not contacted you or you have missed your scheduled appointment, you must contact us. If you have any nursing questions please don't hesitate to call the Cardiac Arrhythmia Service at [facility] at [phone] or extension [phone]. For any scheduling of appointments please call [phone] or extension [phone]. Mr. Huston's only new medicine prescribed is Tylenol, as above noted. This prescription can be picked up over the counter. Other than Tylenol, no new medicines prescribed, he can resume his home medicines as above noted when leaves the hospital. documented in this encounter Medications at Time of Discharge Medication Sig Dispensed Refills Start Date End Date finasteride (PROSCAR) 5 mg Take 5 mg by mouth 0 tablet daily. acetaminophen (TYLENOL) Take 1 Tab by mouth 60 Tab 3 01/03/2014 650 mg tablet every 4 hours as needed for Pain. aspirin chewable 81 mg Take 81 mg by mouth 0 12/07/2018 tablet daily. lisinopril (PRINIVIL, Take 10 mg by mouth 0 09/15/2013 ZESTRIL) 10 mg tablet daily. omeprazole (PRILOSEC) 20 Take 40 mg by mouth 0 05/11/2019 mg capsule daily. simvastatin (ZOCOR) 40 mg Take 40 mg by mouth 0 11/09/2020 tablet every evening. documented as of this encounter Ordered Prescriptions Prescription Sig Dispensed Refills Start Date End Date acetaminophen (TYLENOL) Take 1 Tab by mouth 60 Tab 3 01/03/2014 650 mg tablet every 4 hours as needed for Pain. documented in this encounter Discharge Disposition Disposition Code Departure Means Destination Home or Self Care documented in this encounter Progress Notes Yessica Balbuena MD - 04/09/2012 1700 EDT Cardiology Post Procedure Note s/p pacemaker placement Subjective: Pt is resting comfortably. Denies chest pain, palpitations, lightheadedness, dizziness, dyspnea, numbness or weakness. Objective: Blood pressure 141/75, pulse 51, temperature 36.2 ??C (97.2 ??F), temperature source Tympanic, resp.rate 18, height 188 cm (74.02), weight 103.4 kg (227 lb 15.3 oz), SpO2 95.00%. Gen: NAD, resting comfortably Chest: CTAB, no w/r/r CV: RRR, S1/S2 normal, no m/r/g Extr: left pacemaker site c/d/i, mild erythema Pulse: radial pulse 2+ Neuro: A+Ox3, A/P: 66 y.o.male s/p pacemaker placement -- stable as above, cont to monitor -- cont plan as per morning note Yessica Balbuena MD PGY2 ORIAManliusSavannah baez - 04/09/2012 1448 EDT Brief Case Management Assessment Reason for Hospitalization: Chest pain, Sinus node dysfunction Current Living Arrangements: Resides with his spouse in a camper. He states 3 steps in. He sold a home and is in the process of building a garage for his camper which he intends to heat with wood to keep the camper warm this winter. [employer] is assisting with this process. Pt uses no DME and is independent Current Social, Health Care and Community Supports: No services at home. Spouse and son are siupportive Identified Case Management/Social Work Needs and Issues (housing, care, financial, transportation, cultural, spiritual, emotional, legal, etc.): Pt and spouse both drive and spouse can provide ride home. Pt has [employer] and [employer] and states med assist(but per pt, his knows better than himself) . He uses [facility] in [facility] for meds. Case Management Actions (completed and planned): No needs identified. WIll monitor. Pt states his son and his daughter's boyfriend can assist with building his building and getting heat. JENNIFER Ryan #[id number] Dina, Adan Davison MD - 04/09/2012 9871 EDT Cardiology Progress note Admit Date: 04/07/2012 Hospital day: LOS: 2 days Date of Service: 04/09/2012 Code Status: Full Code Chief Complaint: Chest pain, sinus node dysfunction Events/ Procedures in the last 24 hrs: -cardiac catheterization showing mild CAD without stenosis, sinus pauses -seen by EP, plan for PPM today. Subjective: Mr. Huston denies chest pain, dyspnea, fatigue, irregular heart beat, palpitations. + dizziness with sitting yesterday. Current Facility-Administered Medications Medication Route Frequency ??? aspirin chewable tablet 81 mg Oral DAILY ??? finasteride (PROSCAR) tablet 5 mg Oral DAILY ??? simvastatin (ZOCOR) tablet 40 mg Oral QPM ??? pantoprazole (PROTONIX) tablet 40 mg Oral DAILY ??? lidocaine-EPINEPHrine 2 %-1:100,000 injection 5-10 mL Intradermal PRN Review of Systems: Pertinent items are noted in Subjective/HPI Objective/Physical Exam: VS: Patient Vitals for the past 8 hrs: BP Resp Temp SpO2 O2 Device 04/09/12 0750 - - 36.9 ??C (98.4 ??F) - - 04/09/12 0646 128/70 mmHg 19 - 95 % Room air Pain: Patient Vitals for the past 8 hrs: Numeric Pain Level (Scale 1-10) Asleep 04/09/12 0750 0 - 04/09/12 0629 0 Reassessed, sleeping comfortably, RR WNL. Weight: Patient Vitals for the past 8 hrs: Weight 04/09/12 0514 103.4 kg (227 lb 15.3 oz) Glucose Readings (last 8 hours): No results found for this basename: GLUCOSEFINGE:8 in the last 72 hours I&O: Intake/Output Summary (Last 24 hours) at 04/09/12 0755 Last data filed at 04/09/12 0623 Gross per 24 hour Intake 0 ml Output 3525 ml Net -3525 ml Exam: General appearance: alert, cooperative, no distress Lungs: clear to auscultation bilaterally, non labored breathing Heart: regular rate and rhythm, S1, S2 normal, no murmur, click, rub or gallop Abdomen: soft, non-tender; bowel sounds normal; no masses, no organomegaly Extremities: extremities warm, atraumatic, no cyanosis or edema positive pulses bilat Pulses: 2+ and symmetric Right femoral cath site is c/d with dressing intact Is PICC / Central line present?: No, PICC/Central line not present. Data Review: NA Lab Review: I have personally reviewed CBC: Lab Results Component Value Date WBC 6.33 04/09/2012 RBC 4.67 04/09/2012 HGB 13.7* 04/09/2012 HCT 41.8 04/09/2012 MCV 89 04/09/2012 MCH 29.4 04/09/2012 MCHC 32.9 04/09/2012 PLT 152 04/09/2012 NEUTROABS 4.41 04/09/2012 BMP: Lab Results Component Value Date NA 139 04/09/2012 K 4.1 04/09/2012 CL 106 04/09/2012 CO2 23* 04/09/2012 BUN 12 04/09/2012 CREATININE 0.93 04/09/2012 Coagulation: Lab Results Component Value Date PROTIME 12.1 04/08/2012 INR 1.1 04/08/2012 PTT 28 04/09/2012 Cardiac markers: Lab Results Component Value Date TROPONINI <0.034 04/08/2012 TROPONINI <0.034 04/08/2012 TROPONINI <0.034 04/08/2012 Lab Results Component Value Date HGBA1C 6.0 04/08/2012 Non-Invasive Findings last 24 hours: echo: *STUDY CONCLUSIONS* Summary: 1. Left ventricle: The cavity size was normal. Wall thickness was normal. Systolic function was normal. The estimated ejection fraction was 60-65%. Wall motion was normal; there were no regional wall motion abnormalities. 2. Left atrium: The atrium was mildly dilated. Telemetry: yes, Normal sinus rhythm EKG: N/A Does the patient have active heart failure? no Assessment: 66 year old male presents with chest pain, negative cardiac biomarkers, s/p LHC showing mild CAD, but having sinus node dysfunction. Will go for PPM today. Plan: (update problem list daily as appropriate) Patient Active Hospital Problem List: Chest pain (04/07/2012)- chest pain free -d/c heparin -d/c nitro - aspirin 81 mg daily Sinus node dysfunction -continuous telemetry -for PPM placement today BPH: -finasteride GERD Pantoprazole HLD Simvastatin Prophylaxis: heparin TID Diet: NPO Discharge Plan: Home or self care Yessica Balbuena MD 04/09/2012 7:55 I personally interviewed and examined the patient. I agree completely with Dr. Balbuena's history, physical examination and assessment. 20 minutes spent. Adan Valencia MD Attending in Cardiology #[id number] Saman Lo - 04/08/2012 3848 EDT Cardiology Post Procedure Note s/p left heart cardiac catheterization S: Pt resting comfortably. Denies chest pain, palpitations, lightheadedness, dizziness, dyspnea, numbness or weakness. Denies pain, bleeding or discharge from the cath site. Ambulating without complication. O:Blood pressure 141/69, pulse 51, temperature 37 ??C (98.6 ??F), temperature source Tympanic, resp.rate 16, height 188 cm (74.02), weight 103.6 kg (228 lb 6.3 oz), SpO2 95.00%. Gen: NAD, resting comfortably Chest: CTAB, no w/r/r CV: RRR, S1/S2 normal, no m/r/g Extr: right inguinal cath site c/d/i, no bleeding or discharge, no hematoma or mass Pulse: 2+ Neuro: A+Ox3, 5/5 strength, grossly normal sensation A/P: 66 y.o.male s/p cardiac catheterization. -- stable as above, cont to monitor -- NPO p MN, for PM placement tomorrow SAMAN LO MD PGY-3 ischlerAdan MD - 04/08/2012 1405 EDT No significant flow limiting CAD. However, when RCA injected, developed pauses. Has had documented sinus pauses on strips and tele. EP team to see to determine whether or not he would benefit from PPM implantation. The fact that he has significant LAD bridging makes it desirable to treat with beta mckinley which would likely be problematic without PPM. documented in this encounter H&P Notes Adan Valencia MD - 04/07/2012 2345 EDT Cardiology Admission Note Date - 04/07/2012 Day - 1 Presenting complaint: 66 year old male. Transfer from OSH with chest pain. Past medical history: Hypertension Dyslipidemia Ex-smoker BPH Varicose vein surgery in past Cholecystectomy Chest pain - with normal stress test 5 yrs ago Medications: Omeprazole 20 mg daily Aspirin 81 mg daily Simvastatin 40 mg daily Lisinopril 10 mg daily Finasteride 5 mg daily NKDA HPI Noted chest pain - central - at around 3 pm today. Heaviness. Radiation into shoulder. Associated SOB and nausea. No emesis. No diaphoresis. Was not exerting himself. Pain would not ease so he went to local ER. Was eased with s/l nitro and morphine at ER. Commenced on IV nitroglycerin. Transferred to [facility] for further care. Does report exertion chest pressure over last month - eased with rest. Had also noted some exertional SOB over the last 1-2 months. Currently pain free. No complaints of SOB or nausea at present. No hx of palpitations or leg swelling or PND or orthopnea. No headache. Systems review A 10 point review of systems was performed and pertinent negatives and positives are mentioned above. Fhx/ Shx Ex-smoker - quit 30 years ago. Occasional ethanol. No family hx of IHD. Independent of ADL's. Examination Blood pressure 106/60, pulse 51, temperature 36.7 ??C (98.1 ??F), temperature source Oral, resp. rate 14, SpO2 99.00%. General - alert and orientated, no acute distress HEENT - MADISYN - oropharynx clear - no palpable lymphadenopathy Chest - good air entry - no focal crepitations - no wheeze CVS - heart sounds I and II normal - no added sounds or murmurs - no elevated JVP Abdomen - soft and non-tender - no signs of peritonism - bowel sounds present Extremities - no edema, distal pulses present Skin - intact Peripheral neurology - grossly intact LABS CBC: Recent Labs Basename 04/08/1250 WBC 6.62 RBC 4.21* HGB 12.6* HCT 36.8* MCV 87 MCH 30.0 MCHC 34.3 PLT 168 NEUTROABS 4.54 SEDRATE -- BMP: Recent Labs Basename 04/08/1250 NA 138 K 4.4 CL 108 CO2 24 BUN 19 CREATININE 0.96 CALCIUM -- CALCCA -- CAION -- MG -- PHOS -- LABALBU -- Coags: Recent Labs Basename 04/08/1250 PROTIME 12.1 INR 1.1 PTT 28 Cardiac Markers: Recent Labs Basename 04/08/125004/08/12 0008 CK 76 -- MB 0.73 -- CKMBINDEX -- -- TROPONINI <0.034 <0.034 EKG - SR. Rate 55/ minute. Normal axis. Sinus exit block. Occasional junctional beats. No ST changes. Impression: ACS - unstable angina Arrhythmia - sinus exit block - likely type II (secondary to ischemia?) Plan: Telemetry bed Aspirin 81 mg daily Plavix 300 mg load and 75 mg daily Heparin drip prescribed Continue Simvastatin Hold STEPHANIE -inhibitor whilst on nitro drip Continue nitro drip for now Hold rate limiting medications (given bradycardia) Echo requested Left heart cath requested - NPO from midnight Prophylaxis - heparin drip Code - Full Disposition - uncertain Vaughn Gandhi MD Pager # [phone] 66 yo male with HTN, HLD ex smoker presents with substernal chest pressure at rest with multiple prior episodes as well sinus bradycardia with type II SA exit block, Sx relieved by nitro and triggered by activity. Keep npo for LHC in am given UA presentation and possible ischemic substrate to block . D/w Dr. Nunez and Dr. Hackett interventional staff I personally interviewed and examined the patient. I agree completely with Martha Davis and Eugene's history, physical examination and assessment. 40 minutes spent. Adan Valencia MD Attending in Cardiology #[id number] documented in this encounter Procedure Notes BUTT WELDER, SCAN 2 - 04/15/2012 2220 EDTAssociated Order(s): CARDIAC CATHERIZATION REPORT - SCANNED BUTT WELDER, SCAN 2 - 04/15/2012 2159 EDTAssociated Order(s): IMPLANT RECORD - SCANNED BUTT WELDER, SCAN 2 - 04/15/2012 2159 EDTAssociated Order(s): CARDIAC CATHERIZATION REPORT - SCANNED BUTT WELDER, SCAN 2 - 04/15/2012 2159 EDTAssociated Order(s): ECG REPORT - SCANNED BUTT WELDER, SCAN 2 - 04/10/2012 1033 EDTAssociated Order(s): ECG REPORT - SCANNED orrNelson alejandra Sa, MD - 04/09/2012 1442 EDT Electrophysiology Laboratory Preliminary Report -- Invasive Electrophysiology Procedure Date of Service/Procedure: 04/09/2012 Attending Physician: Manav Rodriguez MD Fellow: Nelson portillo Sa, MD Pre-Procedure Diagnosis/Indication: Deon Huston is a 66 y.o. year old male Presents to [facility] Elect[facility]iology [facility] in [place] for a pacemaker implantation which is Indicated for symptomatic bradycardia or chronotropic incompetence w/ 2AVB, 3AVB, or SND. Symptoms include pre-syncope and indication for dual chamber pacing is N/A Anesthesia: A moderate level of anesthesia/conscious sedation was used., Local anesthesia was used.. Access: Left axillary vein 1 x 7.0 fr Post-Procedure Condition: The condition of the patient was Good. Complications: None. Estimated Blood Loss: Minimal. Unless otherwise noted, there were no specimens removed, cultures obtained, or drains retained. Clinical Trial: The patient is not enrolled in a clinical trial. Summary of Procedure: Implant of a single chamber AAI Med[employer] pacemaker Full report in Verics and available on images after attending signature Post-Procedure Diagnosis: bradycardia Plan: see post-procedure orders and bedrest for 2 hour(s). At the completion of the procedure, the attending physician has explained the findings, therapies, any complications and treatment plan to the patient. With the patients consent, all family members andpatient support persons who were present at the conclusion of the procedure have been notified of these results and treatment plans as well. Post Procedural Disposition: Return for recovery to [place] [address] Reference: Hospitalization Criteria for Pacemaker and ICD Placement and EP/Ablation; Heart Rhythm Society; Revised November, NELSON PORTILLO SA, MD 04/09/2012 14:44 Edwin Marinelli MD - 04/08/2012 1403 EDT Preliminary Cardiac Catheterization Results and Plan ATTENDING: Mary Fellow/GLASSWARE MAKER DEMONSTRATOR: Scot Indication: A ( 66 ) year old cp and presyncope and baseline sinus arrythmia and pauses Anesthesia used for procedure: A moderate level of anesthesia/conscious sedation was used for this procedure. Contrast Total: 120 ml Estimated Blood Loss: < 20 ml Unless otherwise noted, there was no blood loss, specimens removed, cultures obtained or drains retained PROCEDURE: Diagnostic Coronary/Graft Angiography _XXX Pressure Wire_XXX ACCESS: Right: Femoral Artery- 6F Closure: Starclose: XXX Complications: None DIAGNOSTIC STUDY RESULTS: Cardiac: LM: normal LAD: With minor irregs, mid has prominent bridging, D1 50% prox Cx:minor irrges RCA:minor irregs FFR of D 1 is in normal range .94 Note injection of RCA is associated with increased pauses of sinus arrest 5 to 10 secs Endovascular: Right Femoral Artery: normal Diagnostic Summary and Plan: 1. Mild CAD without culprit stenosis. 2. Significant Mid LAD bridging 3. Sinus pauses reviewed with CCU team and Nahomy who is concerned with symptomatic bradycardia which may be aggravated with BBlocker or Ca Mckinley to Rx bridging. He plans further eval. 4. Heparin and nitro D/Alexis I have personally reviewed the results of the above procedure and the current treatment plan with the patient and with family members if available. Edwin Hernandez MD Attending Cardiology documented in this encounter Consult Notes Jose Alejandro Corea MD - 04/08/2012 1612 EDT Cardiology Consult Presenting Illness: 1. Sinus Node Dysfunction History of Presenting Illness: Pt is a 66 yo WM with MHx of HTN, HLD, NATALIE, GERD who initially presented with an Atypical Pleuritic CP. This has been occurring for some time, described as sharp, worsened with inspiration, occuring with greater frequency and severity. He also reports some Pre-Syncope type symptoms without over Syncope. The pt is not DM, and has never experienced an episode fo Syncope or Seizure. Upon transfer to [facility], he was noted to have SSS vs. SND. This was further typified by Vagal Maneuvers at bedside as well as RCA Contrast Injections. PCP: Dereck Schultz Corner Trimmer Operator: None 2D-TTE: Summary: 1. Left ventricle: The cavity size was normal. Wall thickness was normal. Systolic functionwas normal. The estimated ejection fraction was 60-65%. Wall motion was normal; there were no regional wall motion abnormalities. 2. Left atrium: The atrium was mildly dilated. LHC: DIAGNOSTIC STUDY RESULTS: Cardiac: LM: normal LAD: With minor irregs, mid has prominent bridging, D1 50% prox Cx:minor irrges RCA:minor irregs FFR of D 1 is in normal range 0.94 Note injection of RCA is associated with increased pauses of sinus arrest 5 to 10 secs Endovascular: Right Femoral Artery: normal EKG and Tele: ? Sinus Wenckebach Krystina: Results for DEON HUSTON ( ) as of 04/08/2012 16:32 Ref. Range 04/08/2012 00:51 04/08/2012 00:56 04/08/2012 07:56 CK Latest Range: 0-250 U/L 76 65 MB Latest Range: <4.21 ng/ml 0.73 0.76 Troponin I Latest Range: <0.034 ng/ml <0.034 <0.034 Cholesterol No range found 111 Triglycerides No range found 117 HDL No range found 22 LDL, Calculated No range found 66 Chol/HDL Ratio No range found 5.0 Fasting? No range found YES BNP ,CXR: No recent pertinent study performed. Exercise Capacity wnl, No Orthopnea, PND, Pedal Edema. No Syncope, +Pre-Syncope, Palpitations. No intermittent Claudication. Constitutional: No Fevers, Weight Loss, Night sweats, Malaise/Fatigue. Cardiovascular: see above. Respiratory: No Hemoptysis, Coughing, Wheezing. Gastrointestinal: No Hematemesis, Hematochezia, Melena, Diarrhea, Abdominal Pain, N/V. Neurologic: No Weakness, Speech Disturbance, loss of Balance. Dermatologic: No new Rashes, Lesions. Review of Systems: A 14 point review of systems was reviewed by myself; and negative except for pertinent positives as per HPI. Medical History: Past Medical History Diagnosis Date ??? GERD (gastroesophageal reflux disease) ??? Cataract bilateral ??? Biliary colic ??? Hypercholesteremia ??? Enlarged prostate ??? Inguinal hernia bilateral ??? Hypertension ??? Sleep apnea Surgical History: Past Surgical History Procedure Date ??? Cholecystectomy ??? Cataract removal bilateral ??? Hernia repair Social History: History Substance Use Topics ??? Smoking status: Former Smoker ??? Smokeless tobacco: Not on file Comment: Quit >30 years ago ??? Alcohol Use: Yes Occasional beer Family History: No family history on file. Allergies: No Known Allergies Outpatient Medications: Prescriptions prior to admission Medication Sig Dispense Refill ??? simvastatin (ZOCOR) 40 mg tablet Take 40 mg by mouth every evening. ??? lisinopril (PRINIVIL, ZESTRIL) 10 mg tablet Take 10 mg by mouth daily. ??? finasteride (PROSCAR) 5 mg tablet Take 5 mg by mouth daily. ??? omeprazole (PRILOSEC) 20 mg capsule Take 20 mg by mouth daily. ??? aspirin chewable 81 mg tablet Take 81 mg by mouth daily. Inpatient Medications: Current Facility-Administered Medications Medication Route Frequency ??? aspirin chewable tablet 81 mg Oral DAILY ??? finasteride (PROSCAR) tablet 5 mg Oral DAILY ??? simvastatin (ZOCOR) tablet 40 mg Oral QPM ??? pantoprazole (PROTONIX) tablet 40 mg Oral DAILY ??? lidocaine-EPINEPHrine 2 %-1:100,000 injection 5-10 mL Intradermal PRN Physical Exam: Patient Vitals for the past 24 hrs: BP Temp Temp src Pulse Resp SpO2 Height Weight 04/08/12 1535 123/88 mmHg - - - 16 - - - 04/08/12 1520 139/78 mmHg - - - - - - - 04/08/12 1505 128/67 mmHg - - - - - - - 04/08/12 1450 133/66 mmHg - - - 16 - - - 04/08/12 1440 122/61 mmHg - - - 16 - - - 04/08/12 1420 128/64 mmHg 37 ??C (98.6 ??F) Tympanic - 16 95 % - - 04/08/12 0700 106/59 mmHg 36.9 ??C (98.4 ??F) Tympanic - 18 97 % - - 04/08/12 0622 - - - - - - - 103.6 kg (228 lb 6.3 oz) 04/08/12 0257 108/57 mmHg 36 ??C (96.8 ??F) Tympanic - 16 96 % - - 04/08/12 0115 100/57 mmHg - - - 14 96 % - - 04/08/12 0051 - - - - - - 188 cm (74.02) 99.791 kg (220 lb) 04/08/12 0048 - - - - - - 188 cm (74) 102.059 kg (225 lb) 04/08/12 0045 99/58 mmHg - - - 15 98 % - - 04/08/12 0037 98/61 mmHg - - - 14 98 % - - 04/07/12 2245 106/60 mmHg - - - 14 99 % - - 04/07/12 2200 104/61 mmHg - - - 15 100 % - - 04/07/12 2130 108/70 mmHg - - - 14 99 % - - 04/07/122118 105/54 mmHg 36.7 ??C (98.1 ??F) Oral 51 14 99 % - - Weight: Weight : 103.6 kg (228 lb 6.3 oz) Body mass index is 29.31 kg/(m^2). General: Awake, Alert, Oriented x3/3, GCS 15. No Cardio-Pulmonary Distress. HEENT: Mucous Membranes [place] & Moist. Sclerae Anicteric. CVS: S1/S2, No Ad. Snds, Murmurs, Rubs, Gallops, Heaves, Thrills, Carotid Bruits. JVD/P wnl. Marked Sinus Bradycardia upon Carotid Massage. RS: CTAB btl, No Wheezes or Crackles. No Effusions. WIPING CLOTH CUTTER: No Focal Neurological Deficit noted. ABD: Soft, Non-Tender, Non-Distended, No Masses, HSM. Bowel Sounds Normoactive & Present. EXT: Pulses ++ x4. No Cyanosis, Edema, Clubbing. Data Review: CBC: Recent Labs Basename 04/08/1250 WBC 6.62 HGB 12.6* HCT 36.8* MCV 87 PLT 168 BMP: Recent Labs Basename 04/08/1250 NA 138 K 4.4 CL 108 CO2 24 BUN 19 CREATININE 0.96 CALCIUM -- MG -- PHOS -- SERGLU -- Estimated Creatinine Clearance: 94.6 ml/min (by C-G formula based on Cr of 0.96). KRYSTINA: Recent Labs Basename 04/08/12 0756 04/08/125004/08/12 0008 BNP -- -- -- NTBNP -- -- -- MB 0.76 0.73 -- TROPONINI <0.034 <0.034 <0.034 Coags: Lab Results Component Value Date/Time PROTIME 12.1 04/08/201250 INR 1.1 04/08/201250 PTT 99* 04/08/2012 0756 LFTs: No results found for this basename: ALT, AST, ALKPHOS, TBIL, CONJBILI, UNCONJBILI, TP, LABALBU DM: Lab Results Component Value Date/Time HGBA1C 6.0 04/08/2012 0056 FLP: Lab Results Component Value Date/Time CHOL 111 04/08/2012 0051 TRIG 117 04/08/2012 005 HDL 22 04/08/2012 0051 LDLBASE 66 04/08/2012 0051 CHOLHDL 5.0 04/08/2012 0051 TFTs: No results found for this basename: TSH, FREET4 Prev. EKG: See HPI Curr. EKG: See HPI I have independently visualized and reviewed the above EKGs. Impression and Assessment: -Sinus Node Dysfunction, accentuated with Vagal Maneuvers -Mild CAD -mLAD myocardial bridging -HTN, HLD, NATALIE -GERD Plan : -NPO MN -PPM (AAIR) tomorrow Discussed with Dr. Tarik Corea M.D. Cem Mauricio M.D. Cardiovascular Disease Fellow [facility] Office: [phone] Pager: [phone] Email: [email or web address] documented in this encounter ED Notes Lexi Self RN - 04/08/2012 0147 EDT Pt continues to be pain free, in hospital bed for comfort. Rand mota RN - 04/08/2012 0120 EDT Blood drawn via saline lock per protocol, rainbow tube(s) sent to lab per order. Kalia Pruitt - 04/08/2012 0011 EDT Blood drawn via saline lock per protocol, green tube(s) sent to lab per order. Saman amin MD - 04/07/20126 EDT The patient arrives stable in transfer for admission to the cardiology service. He is seen in the by cardiology and will be admitted to cardiology service for further evaluation and therapy. Lexi Rosales RN - 04/07/20123 EDT Cardiology at bedside for eval. Quinton Blankenship RN - 04/07/20120 EDT 12 Lead EKG Performed by Quinton Main RN and shown to Saman Garcia MD. exi Swan RN - 04/07/20122136 EDT 12 Lead EKG Performed by Lexi Self RN and shown to Dr. Ortega. Lexi Rosales RN - 04/07/20122125 EDT Upon arrival pt kept on Nitro at 125 mcg/min, placed on continuous cardiac, NIBP, and SpO2 monitoring, kept on 2L O2 via NC. Dr. Ortega at bedside for eval. lfredito Condon - 04/07/20122110 EDT Tcall: Deon Huston 41 Pt xfr from [facility] Dr. Nunez accepting. Cc: 66ym sudden onset SSCP at 1500. 6/10 Pale, sob on arrival. Ekg: SSS +ectopy DDimer neg, trop neg. 108/52 50'S-> 56 20 97% 4 liters 20G l ac Asa, ntg Note taken by Jean Carlos Saldivar RN ([facility]) documented in this encounter Miscellaneous Notes Scanned Note-Null - BUTT WELDER, SCAN 2 - 04/15/2012 2220 EDT canned Note- Null - BUTT WELDER, SCAN 2 - 04/15/2012 2159 EDT canned Note- Null - BUTT WELDER, SCAN 2 - 04/15/2012 2159 EDT lan of David - Marie Houston RN - 04/10/2012 0954 EDT Problem: PAIN Goal: Patient???s Pain And Discomfort Are Adequately Managed Intervention: Assess pain level Pain is to be assessed: admission, every shift, prior to medication administration, within two hoursafter pain medication administration, before transfer or discharge and every two hours while on LASER ENGRAVER or epidural. Data: Pt reports aching pain of 2/10 at pacemaker site. Action: Pt assessed, pacemaker site, clean, dry , intact. Reviewed activity restrictions post pacemaker placement and care of site. 650 mg Tylenol given for pain. Response: Pt verbalized understanding of post pacemaker instructions. Pain reported at 1/10 following Tylenol. Marie Houston RN 04/10/2012 9:52 1200: D: Patient ready for discharge . Order obtained. A: IV removed, catheter intact. Telemetry removed. Reviewed discharge instructions and medication with patient. Patient given discharge instructions. R: Discharge home via wheelchair. Pt expressed good understanding of discharge instructions. lan of Karin Anand RN - 04/10/2012 0656 EDT Problem: CIRCULATORY STATUS Goal: Patient Has Stable Vital Signs And Fluid Balance D Assumed care of post-ppm pt. VSS. SR on tele. L SC incision intact with minimal swelling. Pt declines pain medication. A Assessment per flow sheet. Reviewed plan of care. R Continue to monitor. lan of Care - Joanie Cole RN - 04/09/2012 1844 EDT Problem: CIRCULATORY STATUS Goal: Patient Has Stable Vital Signs And Fluid Balance Intervention: Assess rate, rhythm and regularity of pulses Including apical assessment for cardiology patients. Data: Post PPM placement. Action: Assumed patient care at 1530 and patient A&O x 3 with 5/10 pacer site pain. 650 mg Tylenol given with good result. Orthos completed and patient passed. Response: Patient up independently, will CTM. Joanie Cole RN 04/09/2012 18:42 canned Note-Null - BUTT WELDER, SCAN 2 - 04/09/2012 0707 EDT lan of Care - Anisha Hawley RN - 04/09/2012 0355 EDT Problem: CIRCULATORY STATUS Goal: Patient Has Stable Vital Signs And Fluid Balance Intervention: Assess rate, rhythm and regularity of pulses Including apical assessment for cardiology patients. D:Received pt at 1900 for care. Pt alert and oriented. A:No complaints of pain or discomfort. Call light in reach. Pt voiding in urinal. R:Will continue to monitor and report changes. lan of Care - Sophie Kothari RN - 04/08/2012 1857 EDT Problem: CIRCULATORY STATUS Goal: Patient Has Stable Vital Signs And Fluid Balance Outcome: Met This Shift D: Assumed care of pt this AM. Heparin gtt, nitro gtt & NS gtt infusing. NPO for crown and bridge dental lab technician. VSS. Denies chest pain. Tele- SB/SR 30s-60s. A: Echo done. Pt returned from crown and bridge dental lab technician with no intervention done. Right femoral cath site CDI. + pedal pulses. See post-cath flowsheet. R: Attempted to do orthos at 1710. Pt feeling dizzy when sitting at bedside. SBP increased. Pt back to bed for now. Encouraged food & fluids. Cath site remains intact. NPO after midnight for PPM r/t sick sinus syndrome. Sophie Kothari RN 04/08/2012 18:55 lan of Care - Eliceo Martin RN - 04/08/2012 034 EDT D: Patient arrived to [place] [address]. Vital signs noted. Tele applied. Patient SB with HR in 50s. Patientdenies chest pain, SOB, and discomfort. Patient denies complaints at this time. Patient oriented to room, equipment, and careplan. A: Assessment as documented in flowsheet. Admission database complete. R: RN will continue to monitor and document per protocol. canned Note-Null - BUTT WELDER, SCAN 2 - 04/07/20122208 EDT canned Note- Null - BUTT WELDER, SCAN 2 - 04/07/20122208 EDT canned Note- Null - BUTT WELDER, SCAN 2 - 04/07/20122208 EDT documented in this encounter Plan of Treatment Upcoming Encounters Date Type Specialty Care Team Description 12/27/2021 Office Visit Hematology and Erin Barillas M D Oncology [address] [facility] [facility] [place] [address] (Wo rk) 02/14/2022 Office Visit Hematology and Erin Barillas M D Oncology [address] [facility] [facility] [place] [address] (Wo rk) 04/25/2022 Ancillary Procedure Cardiology 04/25/2022 Office Visit Cardiology Claire Lopez , FESTUS [address] [facility] [address] [place] [address] (Wo rk) 05/13/2022 Office Visit Rheumatology Tod Perez NP [address] [facility] [place] [address] (Wo rk) documented as of this encounter Procedures Procedure Name Priority Date/Time Associated Comments Diagnosis INVASIVE CARDIOLOGY 04/15/2012 22:20 Resu lts for this REPORT-SCANNED EDT procedure are in the results section. IMPLANT RECORD - 04/15/2012 21:59 Results for this SCANNED EDT procedure are i n the results section. ECG REPORT - SCANNED 04/15/2012 21:59 Res ults for this EDT procedure are i n the results section. INVASIVE CARDIOLOGY 04/15/2012 21:59 Resu lts for this REPORT-SCANNED EDT procedure are in the results section. ECG REPORT - SCANNED 04/10/2012 10:33 Res ults for this EDT procedure are i n the results section. DIFFERENTIAL Routine 04/10/2012 6:52 Results for this EDT procedure are i n the results section. PTT Routine 04/10/2012 6:52 Results for this EDT procedure are i n the results section. COMPLETE BLOOD COUNT Routine 04/10/2012 6:52 Resu lts for this EDT procedure are i n the results section. COMPLETE BLOOD COUNT Routine 04/10/2012 6:52 AND DIFFERENTIAL EDT BUN Routine 04/10/2012 6:52 Results for this EDT procedure are i n the results section. CREATININE Routine 04/10/2012 6:52 Results for this EDT procedure are i n the results section. ELECTROLYTES Routine 04/10/2012 6:52 Results for this EDT procedure are i n the results section. PORTABLE CHEST 1 VIEW Routine 04/09/2012 14:59 Re sults for this EDT procedure are i n the results section. PERMANENT PACEMAKER Routine 04/09/2012 13:19 Resu lts for this PROCEDURE EDT procedure are i n the results section. DIFFERENTIAL Routine 04/09/2012 6:15 Results for this EDT procedure are i n the results section. PTT Routine 04/09/2012 6:15 Results for this EDT procedure are i n the results section. COMPLETE BLOOD COUNT Routine 04/09/2012 6:15 Resu lts for this EDT procedure are i n the results section. COMPLETE BLOOD COUNT Routine 04/09/2012 6:15 AND DIFFERENTIAL EDT BUN Routine 04/09/2012 6:15 Results for this EDT procedure are i n the results section. CREATININE Routine 04/09/2012 6:15 Results for this EDT procedure are i n the results section. ELECTROLYTES Routine 04/09/2012 6:15 Results for this EDT procedure are i n the results section. LEFT HEART CATH Routine 04/08/2012 13:33 Results for this EDT procedure are i n the results section. ECHOCARDIOGRAM Routine 04/08/2012 9:33 Results fo r this EDT procedure are i n the results section. TROPONIN I Routine 04/08/2012 7:56 Results for this EDT procedure are i n the results section. PTT STAT 04/08/2012 7:56 Results for this EDT procedure are i n the results section. CK MB WITH TOTAL CK Routine 04/08/2012 7:56 Resul ts for this EDT procedure are i n the results section. HEMOGLOBIN A1C Routine 04/08/2012 0:56 Results fo r this EDT procedure are i n the results section. SCREENING GLUCOSE Routine 04/08/2012 0:51 Results for this EDT procedure are i n the results section. TROPONIN I Routine 04/08/2012 0:51 Results for this EDT procedure are i n the results section. DIFFERENTIAL Routine 04/08/2012 0:51 Results for this EDT procedure are i n the results section. PTT Routine 04/08/2012 0:51 Results for this EDT procedure are i n the results section. PROTIME Routine 04/08/2012 0:51 Results for this EDT procedure are i n the results section. COMPLETE BLOOD COUNT Routine 04/08/2012 0:51 Resu lts for this EDT procedure are i n the results section. COMPLETE BLOOD COUNT Routine 04/08/2012 0:51 AND DIFFERENTIAL EDT BUN Routine 04/08/2012 0:51 Results for this EDT procedure are i n the results section. CREATININE Routine 04/08/2012 0:51 Results for this EDT procedure are i n the results section. CK MB WITH TOTAL CK Routine 04/08/2012 0:51 Resul ts for this EDT procedure are i n the results section. LIPID PROFILE (INCLUDES Routine 04/08/2012 0:51 R esults for this CHOLESTEROL, EDT procedure are i n TRIGLYCERIDES, HDL, the resu lts LDL) section. ELECTROLYTES Routine 04/08/2012 0:51 Results for this EDT procedure are i n the results section. TROPONIN I Routine 04/08/2012 0:08 Results for this EDT procedure are i n the results section. EKG 12-LEAD STAT 04/07/2012 22:08 EDT EKG 12-LEAD STAT 04/07/2012 21:33 Results for this EDT procedure are i n the results section. documented in this encounter Results CARDIAC CATHERIZATION REPORT - SCANNED (04/15/2012 22:20 EDT) Specimen Narrative 04/15/2012 22:23 EDT Procedure Note BUTT WELDER, SCAN 2 - 04/15/2012 22:20 EDT IMPLANT RECORD - SCANNED (04/15/2012 21:59 EDT) Specimen Narrative 04/15/2012 22:23 EDT Procedure Note BUTT WELDER, SCAN 2 - 04/15/2012 21:59 EDT CARDIAC CATHERIZATION REPORT - SCANNED (04/15/2012 21:59 EDT) Specimen Narrative 04/15/2012 22:23 EDT Procedure Note BUTT WELDER, SCAN 2 - 04/15/2012 21:59 EDT ECG REPORT - SCANNED (04/15/2012 21:59 EDT) Specimen Narrative 04/15/2012 22:23 EDT Procedure Note BUTT WELDER, SCAN 2 - 04/15/2012 21:59 EDT ECG REPORT - SCANNED (04/10/2012 10:33 EDT) Specimen Narrative 04/11/2012 4:44 EDT Procedure Note BUTT WELDER, SCAN 2 - 04/10/2012 10:33 EDT (ABNORMAL) DIFFERENTIAL (04/10/2012 6:52 EDT) Pathologist Sig nature Neutrophils 72.6 45.5 - 79.7 % [facility] Lymphocytes 14.0 (L) 15.0 - 46.8 % [facility] Monocytes 10.7 1.8 - 12.0 % [facility] Eosinophils 2.4 0.6 - 6.9 % [facility] Basophils 0.3 0.2 - 1.4 % [facility] ABS Neutrophils 4.77 2.20 - 8.85 K/cmm [facility] ABS Lymphs 0.92 (L) 1.09 - 3.30 K/cmm [facility] ABS Monocytes 0.70 0.1 - 0.8 K/cmm [facility] ABS Eosinophils 0.16 0.03 - 0.61 K/cmm [facility] ABS Basophils 0.02 0.01 - 0.11 K/cmm [facility] Type of Diff: Automated [facility] Specimen Performing Organization Address City/State/ZIP Code Phon e Number [facility] [address] [place] [address] SERVICES [facility] [address] [place] [address] HEMAGRAM (04/10/2012 6:52 EDT) Pathologist Sig nature WBC 6.57 4.0 - 10.4 K/cmm [facility] RBC 4.73 4.36 - 5.78 M/cmm [facility] Hemoglobin 14.2 13.8 - 17.3 gm/dl [facility] HCT 41.5 39.5 - 50.2 % [facility] MCV 88 81 - 95 fl [facility] MCH 30.0 27.6 - 33.0 pg [facility] MCHC 34.2 32.8 - 36.4 gm/dl [facility] PLT 152 141 - 320 K/cmm [facility] RDW-CV 13.9 11.8 - 14.1 % [facility] Specimen Performing Organization Address [facility] Phon e Number [facility] [address] [place] [address] SERVICES [facility] [address] [place] [address] PTT (04/10/2012 6:52 EDT) Pathologist Sig nature PTT 29Comment: Therapeutic 26 - 37 secs [facility] Heparin range: 65-100 seconds Specimen Blood specimen (specimen) Performing Organization Address [facility] Phon e Number [facility] [address] [place] [address] SERVICES [facility] [address] [place] [address] CREATININE (04/10/2012 6:52 EDT) Pathologist Sig nature Creatinine 0.84 0.66 - 1.25 mg/dl [facility] GFR, Calculated >60 >60 ml/min/1.73m2 [facility] Specimen Blood specimen (specimen) Performing Organization Address [facility] Phon e Number [facility] [address] [place] [address] SERVICES [facility] [address] [place] [address] BUN (04/10/2012 6:52 EDT) Pathologist Sig nature BUN 17 10 - 26 mg/dl [facility] Specimen Blood specimen (specimen) Performing Organization Address [facility] Phon e Number [facility] [address] [place] [id number] SERVICES [facility] [address] [place] [address] (ABNORMAL) ELECTROLYTES (04/10/2012 6:52 EDT) Pathologist Sig nature Sodium 138 136 - 145 mEq/L [facility] Potassium 4.2 3.5 - 5.0 mEq/L [facility] Chloride 104 96 - 110 mEq/L [facility] CO2 23 (L) 24 - 32 mEq/L [facility] Specimen Blood specimen (specimen) Performing Organization Address City/State/ZIP Code Phon e Number [facility] [address] [place] [address] SERVICES [facility] [address] [place] [address] PORTABLE CHEST 1 VIEW (04/09/2012 14:59 EDT) Anatomical Region Laterality Modality Other Specimen Narrative [facility] - 04/09/2012 15:05 EDT PORTABLE CHEST 1 VIEW ??Apr 09, 2012 02:59:00 PM Signs and Symptoms/Comments: ?? s/p ppm, check leads Impression: 1. No pneumothorax identified. Description: A portable semiupright AP c hest without comparisons. There is a battery pack projected over t he left axillary soft tissues with a single lead from this to the righ t atrium. The left diaphragm is slightly higher than the right. Procedure Note 04/09/2012 PORTABLE CHEST 1 VIEW Apr 09, 2012 02:59 :00 PM Signs and Symptoms/Comments: s/p ppm, ch mayo leads Impression: 1. No pneumothorax identified. Description: A portable semiupright AP c hest without comparisons. There is a battery pack projected over t he left axillary soft tissues with a single lead from this to the righ t atrium. The left diaphragm is slightly higher than the right. Performing Organization Address City/[facility]/ZIP Code Phon e Number [facility] PERMANENT PACEMAKER PROCEDURE (04/09/2012 13:19 EDT) Specimen Narrative CARDIOLOGY - 04/09/2012 15:04 EDT *Cardiology* [address] [place] [address] Device Implantation Patient: Deon Huston ?Kirk Date: ? 04/09/2012 ?Accession #: ?[id number] : ? 1945 Referring: Dereck Schultz Attending: Manav Rodriguez MD Fellow: ?Nelson portillo Sa, MD Assisting: Copies: SUMMARY OF PROCEDURE: - There were no complications. - Successful Single chamber pacemaker im plant. PROCEDURE INDICATION: INDICATION FOR PACING: Symptomatic korey cardia or chronotropic incompetence with 2AVB, 3AVB or SND. Sym ptoms include pre-syncope. HISTORY AND INDICATIONS: ??Pt is a 66 yo WM with MHx of HTN, HLD, NATALIE, GERD who initially presented with an Aty pical Pleuritic CP. This has been occurring for some time, described as sharp, worsened with inspiration, occuring with greater frequ ency and severity. He also reports some Pre-Syncope type symptoms w ithout over Syncope. The pt is not DM, and has never experienced an epi sode fo Syncope or Seizure. Upon transfer to [facility], he was noted to h ave SSS vs. SND. This was [facility] as well as RCA Contrast Injections. PROCEDURE: - Implant of a single chamber pacemaker ANESTHESIA: Conscious sedation and local anesthesia. PROCEDURE: The risks, benefits, and alternatives to the procedure and sedation were explained and informed consent was obtained. The patient name, date of , surgica l site, and procedure were verified prior to the procedure. The pat ient was brought to the OR in the fasting state. The chest was prepped and draped in the usual sterile manner. ??Local anesthestic was administered to the left deltopectoral groove. ??Left axillary ve in access. With the patient in Trendelenburg position and under fluoros copic guidance the vessel was entered on 1 occasion(s) allowing for pl acement of 1 soft-tipped J-wire(s) to the level of the inferior v anand cava. The attending physician was present for the entire pro cedure. An incision was made medial and perpendi cular to the left deltopectoral groove. Using blunt dissec tion and electrocautery to achieve hemostasis, a device pocket was constructed. Lead implantation. The wire was tunneled into the incision area. Using a 7F safety sheath, a lead was advanced to th e right atrium under fluoroscopic guidance and actively fixed to the right atrial appendage.The lead(s) were tested before and after suturing the lead sleeve(s) to the pre-pectoralis fascia. Device detail in table below. Wound closure. The pocket was copiously irrigated with bacitracin solution. The lead was attached to the d evice and the system was placed in the pocket.The wound was close d in three layers.The deepest layer was interrupted vertical mattress using 2-0 Monocryl.The mid layer was interrupted horizontal mattres s using 3-0 Monocryl.The superficial layer was continuous horizon driss mattress using 4-0 Monocryl.The skin was coated with topica l skin adhesive. IMPLANTED HARDWARE: Implanted device: Medtronic - Sensia SR - [id number] LEAD PARAMETERS + + + Lead # ? 1 ? + + + Chamber ? RA ? + + + Date implanted ?? 09-Apr-2012 + + + Model information Medtronic ?? + + + Serial number ? [id number] ?? + + + Location ? RA appendage + + + Capture ? 0.8V@ 0.5ms + + + Impedance ? 833Ohms ? + + + Sensing ? 1.5mV ? + + + Status ? Active ? + + + PACING SETTINGS + +-----+ Mode ? AAI ?? + +-----+ Lower rate 60bpm + +-----+ CHAMBER SETTINGS + +-------+ ? RA ? + +-------+ Pacing polarity Bipolar + +-------+ Amplitude ? 3.5V ?? + +-------+ Pulse width ? 0.4ms ?? + +-------+ Sensing polarity Bipolar + +-------+ Sensitivity ? 0.5mV ?? + +-------+ STUDY COMPLETION Administered medications: ?? Cefazolin ( Ancef, Kefzol) , prior to the procedure for infection prophylaxis. - Patient in-room time: 12:48 PM. - Patient out-of-room time: 02:30 PM. - Intake: 200ml - Estimated blood loss: 30ml. Clinical Trial: ??The patient is not enr olled in a clinical trial. PLAN: ??See post procedure orders. Bed r est for 2hours. At the completion of the procedure, find ings, results, any complications, and treatment plan were c ommunicated to the patient and reinforced after recovery from anesthesi a. With the patient's consent, the attending physician communicated fin dings, results, any complications, and treatment plan to [facility] and patient support persons who were present at the conclusion of the procedure. ?? Electronically signed by Manav Rodriguez MD 04/09/2012 15:03 Procedure Note 04/09/2012 *Cardiology* [address] [place] [address] Device Implantation Patient: Deon Huston Study Date: : 1945 Referring: Dereck Schultz Attending: Manav Rodriguez MD Fellow: Nelson portillo Sa, MD Assisting: Copies: SUMMARY OF PROCEDURE: - There were no complications. - Successful Single chamber pacemaker im plant. PROCEDURE INDICATION: INDICATION FOR PACING: Symptomatic korey cardia or chronotropic incompetence with 2AVB, 3AVB or SND. Sym ptoms include pre-syncope. HISTORY AND INDICATIONS: Pt is a 66 yo W M with MHx of HTN, HLD, NATALIE, GERD who initially presented with an Aty pical Pleuritic CP. This has been occurring for some time, described as sharp, worsened with inspiration, occuring with greater frequ ency and severity. He also reports some Pre-Syncope type symptoms w ithout over Syncope. The pt is not DM, and has never experienced an epi sode fo Syncope or Seizure. Upon transfer to [facility], he was noted to h ave SSS vs. SND. This was further typified by Vagal Maneuvers at [facility] as well as RCA Contrast Injections. PROCEDURE: - Implant of a single chamber pacemaker ANESTHESIA: Conscious sedation and local anesthesia. PROCEDURE: The risks, benefits, and alternatives to the procedure and sedation were explained and informed consent was obtained. The patient name, date of , surgica l site, and procedure were verified prior to the procedure. The pat ient was brought to the OR in the fasting state. The chest was prepped and draped in the usual sterile manner. Local anesthestic was ad ministered to the left deltopectoral groove. Left axillary vein access. With the patient in Trendelenburg position and under fluoros copic guidance the vessel was entered on 1 occasion(s) allowing for pl acement of 1 soft-tipped J-wire(s) to the level of the inferior v anand cava. The attending physician was present for the entire pro cedure. An incision was made medial and perpendi cular to the left deltopectoral groove. Using blunt dissec tion and electrocautery to achieve hemostasis, a device pocket was constructed. Lead implantation. The wire was tunneled into the incision area. Using a 7F safety sheath, a lead was advanced to th e right atrium under fluoroscopic guidance and actively fixed to the right atrial appendage.The lead(s) were tested before and after suturing the lead sleeve(s) to the pre-pectoralis fascia. Device detail in table below. Wound closure. The pocket was copiously irrigated with bacitracin solution. The lead was attached to the d evice and the system was placed in the pocket.The wound was close d in three layers.The deepest layer was interrupted vertical mattress using 2-0 Monocryl.The mid layer was interrupted horizontal mattres s using 3-0 Monocryl.The superficial layer was continuous horizon driss mattress using 4-0 Monocryl.The skin was coated with topica l skin adhesive. IMPLANTED HARDWARE: Implanted device: Medtronic - Kwame SR - [id number] LEAD PARAMETERS + + + Lead # 1 + + + Chamber RA + + + Date implanted 09-Apr-2012 + + + Model information Medtronic + + + Serial number [id number] + + + Location RA appendage + + + Capture 0.8V@ 0.5ms + + + Impedance 833Ohms + + + Sensing 1.5mV + + + Status Active + + + PACING SETTINGS + +-----+ Mode AAI + +-----+ Lower rate 60bpm + +-----+ CHAMBER SETTINGS + +-------+ RA + +-------+ Pacing polarity Bipolar + +-------+ Amplitude 3.5V + +-------+ Pulse width 0.4ms + +-------+ Sensing polarity Bipolar + +-------+ Sensitivity 0.5mV + +-------+ STUDY COMPLETION Administered medications: Cefazolin (Anc ef, Kefzol) , prior to the procedure for infection prophylaxis. - Patient in-room time: 12:48 PM. - Patient out-of-room time: 02:30 PM. - Intake: 200ml - Estimated blood loss: 30ml. Clinical Trial: The patient is not enrol led in a clinical trial. PLAN: See post procedure orders. Bed res t for 2hours. At the completion of the procedure, find ings, results, any complications, and treatment plan were c ommunicated to the patient and reinforced after recovery from anesthesi a. With the patient's consent, the attending physician communicated fin dings, results, any complications, and treatment plan to [facility] members and patient support persons who were present at the conclusion of the procedure. Electronically signed by Manav Rodriguez MD 04/09/2012 15:03 Performing Organization Address City/State/ZIP Code Phon e Number [facility] CARDIOLOGY (ABNORMAL) DIFFERENTIAL (04/09/2012 6:15 EDT) Pathologist Sig nature Neutrophils 69.7 45.5 - 79.7 % [facility] Lymphocytes 15.6 15.0 - 46.8 % [facility] Monocytes 13.6 (H) 1.8 - 12.0 % [facility] Eosinophils 0.8 0.6 - 6.9 % [facility] Basophils 0.3 0.2 - 1.4 % [facility] ABS Neutrophils 4.41 2.20 - 8.85 K/cmm [facility] ABS Lymphs 0.99 (L) 1.09 - 3.30 K/cmm [facility] ABS Monocytes 0.86 (H) 0.1 - 0.8 K/cmm [facility] ABS Eosinophils 0.05 0.03 - 0.61 K/cmm [facility] ABS Basophils 0.02 0.01 - 0.11 K/cmm [facility] Type of Diff: Automated [facility] Specimen Performing Organization Address City/State/ZIP Code Phon e Number [facility] [address] [place] [id number] SERVICES [facility] [address] [place] [address] (ABNORMAL) HEMAGRAM (04/09/2012 6:15 EDT) Pathologist Sig nature WBC 6.33 4.0 - 10.4 K/cmm [facility] RBC 4.67 4.36 - 5.78 M/cmm [facility] Hemoglobin 13.7 (L) 13.8 - 17.3 gm/dl [facility] HCT 41.8 39.5 - 50.2 % [facility] MCV 89 81 - 95 fl [facility] MCH 29.4 27.6 - 33.0 pg [facility] MCHC 32.9 32.8 - 36.4 gm/dl [facility] PLT 152 141 - 320 K/cmm [facility] RDW-CV 14.0 11.8 - 14.1 % [facility] Specimen Performing Organization Address City/[facility]/ZIP Code Phon e Number [facility] [address] [place] [address] SERVICES [facility] [address] [place] [address] PTT (04/09/2012 6:15 EDT) Pathologist Sig nature PTT 28Comment: Therapeutic 26 - 37 secs [facility] Heparin range: 65-100 seconds Specimen Blood specimen (specimen) Performing Organization Address [facility]/ZIP [place] Phon e Number [facility] [address] [place] [address] SERVICES [facility] [address] [place] [address] CREATININE (04/09/2012 6:15 EDT) Pathologist Sig [facility] Creatinine 0.93 0.66 - 1.25 mg/dl [facility] GFR, Calculated >60 >60 ml/min/1.73m2 [facility] Specimen Blood specimen (specimen) Performing Organization Address City/[facility]/ZIP [place] Phon e Number [facility] [address] [place] [address] SERVICES [facility] [address] [place] [address] BUN (04/09/2012 6:15 EDT) Pathologist Sig nature BUN 12 10 - 26 mg/dl [facility] Specimen Blood specimen (specimen) Performing Organization Address City/[facility]/ZIP [place] Phon e Number [facility] [address] [place] [address] SERVICES [facility] [address] [place] [address] (ABNORMAL) ELECTROLYTES (04/09/2012 6:15 EDT) Pathologist [facility] Sodium 139 136 - 145 mEq/L [facility] Potassium 4.1 3.5 - 5.0 mEq/L [facility] Chloride 106 96 - 110 mEq/L [facility] CO2 23 (L) 24 - 32 mEq/L [facility] Specimen Blood specimen (specimen) Performing Organization Address City/State/ZIP Code Phon e Number [facility] [address] [place] [address] SERVICES [facility] [address] [place] [address] LEFT HEART CATH (04/08/2012 13:33 EDT) Specimen Narrative CARDIOLOGY - 04/13/2012 11:42 EDT ?[facility] ? [address] ?? [place] [address] ? ?Fax: ?? [email or web address] ?Final Diagnostic Cardi ovascular Catheterization Report ?- -- SUMMARY OF RESULTS --- > Diagnostic cardiac catheterization wa s performed without any significant complications. > Coronary angiography revealed mild lum inal irregularities only. >There is prominent bridging in the mid LAD. > Injection of the RCA is associated wit h increased pauses of sinus arrest 5- 10 seconds. ? --- PLAN --- > It is recommended that the patient hav e medical therapy for mild coronary disease. > Further evaluation of the patient's si nus pauses is planned. ? --- PATIENT PRESENTATION --- The patient is a 66 year old male with t he following indications: ??arrythmia, chest pain . The patient has the following Comorbidit ies/Risk Factors: ??Dyslipidemia, Hypertension. : 1945 ?Sex: male ?Height : 188cm ?Weight: 103.6kg ?BSA: 2.3 Allergies: ??NKA Pre-Teacher Aide Values: ??HCT: 36.8 ?Pl atelets: 168.0 ?Creatinine:.9 ? --- PROCEDURE --- DIAGNOSTIC CARDIAC PROCEDURE Under local anesthesia, the right femora l artery was accessed with a 6F sheath using modified Seldinger technique. ??A 6F JL4 catheter was introduced and positioned in the ascending aorta. Selective coronary arteriography was the n performed using a 6F JL4 catheter to engage the left coronary artery and a 6F modified AR catheter to engage the right coronary artery. ??Right and left coronary arteriography were performed in multiple views. Via a 6F guide, an 0.014 inch RADI press ure wire was placed in the 2nd Diagonal. ??IV adenosine was infused ach ieving maximal hyperemia and the fractional flow reserve was assessed. The Largest Arterial Sheath/Cath placed was ??6F The Hemostasis method used was: ? Starclose [facility] Cheryl Sys Fluoro Time (min): 7 ?? The NCDR Recomme nds a Warning if FT > 30 minutes SELECTED MEDICATION ADMINISTERED DURING THE PROCEDURE: ??FENTANYL, VERSED ? (Please see PhysioLog report for complete list of medications used.) ?--- RESULTS --- HEMODYNAMICS ??Pressures: ?Site ?Systolic ??Araya to ??Mean ?lic ?Ao ?97 ? 53 ?73 ?Ao ?89 ? 50 ?67 ?Ao ?81 ? 34 ?64 LEFT VENTRICULOGRAPHY Ventriculography was not performed durin g the procedure. FEMORAL ANGIOGRAPHIC FINDINGS The right common femoral artery was norm al in size and had no significant angiographic lesions. The femoral artery sheath was placed wit hin the common femoral artery. CORONARY ANGIOGRAPHIC FINDINGS Left Main Artery: The left main coronary artery is normal in size and has no significant angiographic lesions. Note injection of RCA is associated with increased pauses of sinus arrest 5 to 10 secs Left Anterior Descending Artery: The LAD was normal in size and had mild luminal irregularities. The proximal por tion of the 2nd Diagonal artery has a 50% stenosis The mid LAD has prominent bridging. Circumflex Artery: The circumflex artery was normal in size and had mild luminal irregularities. Right Coronary Artery: The RCA was eric l in size and had mild luminal irregularities. The RCA is dominant. FFR: flow wire of D1 was negative for is chemia by FFR .94 Referring Physician: EUGENE FUCHS,VAUGHN Diagnostic Attending: Margarita Hernandez MD Diagnostic Assisting 1: Scot MORTENSEN, Rhea snider As the attending, supervising physician, I was present for the entire procedure. Signature date/time: 04/13/2012 11:42:18 AM Procedure Note Edwin Hernandez MD - 04/13/2012 [facility] [address] [place] [address] [phone] [email or web address] Final Diagnostic Cardiovascular Cathete rization Report --- SUMMARY OF RESULTS --- > Diagnostic cardiac catheterization wa s performed without any significant complications. > Coronary angiography revealed mild lum inal irregularities only. >There is prominent bridging in the mid LAD. > Injection of the RCA is associated wit h increased pauses of sinus arrest 5- 10 seconds. --- PLAN --- > It is recommended that the patient hav e medical therapy for mild coronary disease. > Further evaluation of the patient's si nus pauses is planned. --- PATIENT PRESENTATION --- The patient is a 66 year old male with t he following indications: arrythmia, chest pain . The patient has the following Comorbidit ies/Risk Factors: Dyslipidemia, Hypertension. : 1945 Sex: male Height: 188cm We ight: 103.6kg BSA: 2.3 Allergies: NKA Pre-Teacher Aide Values: HCT: 36.8 Platelets : 168.0 Creatinine:.9 --- PROCEDURE --- DIAGNOSTIC CARDIAC PROCEDURE Under local anesthesia, the right femora l artery was accessed with a 6F sheath using modified Seldinger technique. A 6F JL4 catheter was introduced and positioned in the ascending aorta. Selective coronary arteriography was the n performed using a 6F JL4 catheter to engage the left coronary artery and a 6F modified AR catheter to engage the right coronary artery. Right and left co ronary arteriography were performed in multiple views. Via a 6F guide, an 0.014 inch RADI press ure wire was placed in the 2nd Diagonal. IV adenosine was infused achie ving maximal hyperemia and the fractional flow reserve was assessed. The Largest Arterial Sheath/Cath placed was 6F The Hemostasis method used was: Starclos e Vascular Cheryl Sys Fluoro Time (min): 7 The NCDR Recommends a Warning if FT > 30 minutes SELECTED MEDICATION ADMINISTERED DURING THE PROCEDURE: FENTANYL, VERSED (Please see PhysioLog report for comple te list of medications used.) --- RESULTS --- HEMODYNAMICS Pressures: Site Systolic Diasto Mean lic Ao 97 53 73 Ao 89 50 67 Ao 81 34 64 LEFT VENTRICULOGRAPHY Ventriculography was not performed durin g the procedure. FEMORAL ANGIOGRAPHIC FINDINGS The right common femoral artery was norm al in size and had no significant angiographic lesions. The femoral artery sheath was placed wit hin the common femoral artery. CORONARY ANGIOGRAPHIC FINDINGS Left Main Artery: The left main coronary artery is normal in size and has no significant angiographic lesions. Note injection of RCA is associated with increased pauses of sinus arrest 5 to 10 secs Left Anterior Descending Artery: The LAD was normal in size and had mild luminal irregularities. The proximal por tion of the 2nd Diagonal artery has a 50% stenosis The mid LAD has prominent bridging. Circumflex Artery: The circumflex artery was normal in size and had mild luminal irregularities. Right Coronary Artery: The RCA was eric l in size and had mild luminal irregularities. The RCA is dominant. FFR: flow wire of D1 was negative for is chemia by FFR .94 Referring Physician: EUGENE FUCHS,PREJOSEY Diagnostic Attending: Mary FUCHS, Margarita resendiz Diagnostic Assisting 1: Scot MORTENSEN, Rhea snider As the attending, supervising physician, I was present for the entire procedure. Signature date/time: 04/13/2012 11:42:18 AM Performing Organization Address City/State/ZIP Code Phon e Number [facility] CARDIOLOGY ECHOCARDIOGRAM (04/08/2012 9:33 EDT) Specimen Narrative CARDIOLOGY - 04/08/2012 10:54 EDT *Interpreting Group:* *[facility]* [address] [place] [address] *STUDY CONCLUSIONS* Summary: 1. Left ventricle: The cavity size was n ormal. Wall ?? thickness was normal. Systolic funct ion was normal. The ?? estimated ejection fraction was 60-6 5%. Wall motion was ?? normal; there were no regional wall motion abnormalities. 2. Left atrium: The atrium was mildly di lated. *PATIENT PRESENTATION* Height: ? 188cm (74in ) S/D Pressure: 100 / 48 Weight: ? 103.4kg (227.5lb ) BSA: ?2.34m^2 Test start time: ??08:35 AM. Test stop time: ??09:35 AM. ADMITTING ?Nguyễn Nunez ATTENDING ?Nguyễn Nunez SPECIAL SERVICES DIRECTOR ??Alissa Milner LILLIAM REFERRING ?Dereck Schultz ORDERING ? Vaughn Gandhi REFERRING ?Vaughn Gandhi PERFORMING ?? Andrew SPECIAL SERVICES DIRECTOR ??Shruthi Ricardo *PROCEDURE DATA* Procedure information: ??This study was interpreted by [facility]. ??Study status: Routine. Transthoracic echocardiography. ??M-mode, complete 2D, complete spectral Doppler, and color Dop pler. A Transthoracic Echocardiogram was performed. The parast ernal window was low, thus no M-mode measurements were recorded. Scann ing was performed from the parasternal, apical, subcostal, and supr asternal notch acoustic windows. Images were obtained using a [employer] IE33 5 cardiac ultrasound machine. Image quality was ad equate. ??Study completion: The patient tolerated the procedure well . *INDICATIONS AND HISTORY* Indications: ?? Chest pain 786.51. *CARDIAC ANATOMY* Left ventricle: ??The cavity size was no rmal. Wall thickness was normal. Systolic function was normal. Th e estimated ejection fraction was 60-65%. Wall motion was normal; ther e were no regional wall motion abnormalities. Aortic valve: ?? Trileaflet; mildly thic kened leaflets. Mobility was not restricted. ??Doppler: ??Transvalvul ar velocity was within the normal range. There was no stenosis. ??N o regurgitation. Aorta: ??Aortic root: The aortic root wa s normal in size. Mitral valve: ?? Structurally normal bel ve. ?? Mobility was not restricted. ??Doppler: ??Transvalvular v elocity was within the normal range. There was no evidence for stenosi s. ??No regurgitation. ?Peak gradient: 5.1mm Hg (D). Left atrium: ??The atrium was mildly dil ated. Right ventricle: ??The cavity size was n ormal. Wall thickness was normal. Systolic function was normal. Pulmonic valve: ?Doppler: ??Transval vular velocity was within the normal range. There was no evidence for stenosis. Tricuspid valve: ?? Structurally normal valve. ?Doppler: Transvalvular velocity was within the no rmal range. ??Trivial regurgitation. Pulmonary artery: ?? Pulmonary systolic pressure was within the normal range. Right atrium: ??The atrium was normal in size. Pericardium: ??There was no pericardial effusion. Systemic veins: Inferior vena cava: The vessel was eric l in size. *MEASUREMENT TABLES* 2D measurements ?Normal Left ventricle Volume, ED, MOD, 1-plane ?105 ml ? ------- Volume, ES, MOD, 1-plane ? 37 ml ? ------- Ejection fraction, MOD, 1-plane ?65 % ?------- Volume index, ED, MOD, 1-plane ? 45 ml/m^2 ------- Volume index, ES, MOD, 1-plane ? 16 ml/m^2 ------- Aorta Root diameter, ED ?40 mm ? ------- Ascending aorta anterior-posterior ? 36 mm ? ------- diameter, S Left atrium Anterior-posterior dimension ? 41 mm ? ------- Anterior-posterior dimension index ? 1.75 cm/m^2 <2.2 Doppler measurements ? Normal Left ventricle IVRT ? 95 ms ? 60-100 Mitral valve Peak E-wave velocity ?113 cm/s ?? ------- Peak A-wave velocity ? 89.3 cm/s ?? ------- Deceleration time ?*239 ms ? 150-230 Peak gradient, D ?5.1 mm Hg ??------- Peak E/A ratio ? 1.27 ?------- Legend: Mean values are shown as u=mean value. Asterisk (*) plasencia values outside specif ied normal range. Electronically signed by Adan Valencia MD [id number] Procedure Note 04/08/2012 *Interpreting Group:* *[facility]* [address] [place] [address] *STUDY CONCLUSIONS* Summary: 1. Left ventricle: The cavity size was n ormal. Wall thickness was normal. Systolic function was normal. The estimated ejection fraction was 60-65%. Wall motion was normal; there were no regional wall mot ion abnormalities. 2. Left atrium: The atrium was mildly di lated. *PATIENT PRESENTATION* Height: 188cm (74in ) S/D Pressure: 100 / 48 Weight: 103.4kg (227.5lb ) BSA: 2.34m^2 Test start time: 08:35 AM. Test stop time: 09:35 AM. ADMITTING Nguyễn Nunez ATTENDING Nguyễn Nunez SPECIAL SERVICES DIRECTOR Kristy Rooney RN RDCS REFERRING Dereck Schultz ORDERING Vaughn Gandhi REFERRING Vaughn Gandhi PERFORMING [facility], SPECIAL SERVICES DIRECTOR Shruthi Ricardo *PROCEDURE DATA* Procedure information: This study was in terpreted by [facility] at [facility]. Study status: Routine. Transthoracic echocardiography. M-mode, complete 2D, complete spectral Doppler, and color Dop pler. A Transthoracic Echocardiogram was performed. The parast ernal window was low, thus no M-mode measurements were recorded. Scann ing was performed from the parasternal, apical, subcostal, and supr asternal notch acoustic windows. Images were obtained using a [employer] [id number] 5 cardiac ultrasound machine. Image quality was ad equate. Study completion: The patient tolerated the procedure well . *INDICATIONS AND HISTORY* Indications: Chest pain 786.51. *CARDIAC ANATOMY* Left ventricle: The cavity size was norm al. Wall thickness was normal. Systolic function was normal. Th e estimated ejection fraction was 60-65%. Wall motion was normal; ther e were no regional wall motion abnormalities. Aortic valve: Trileaflet; mildly thicken ed leaflets. Mobility was not restricted. Doppler: Transvalvular v elocity was within the normal range. There was no stenosis. No regurgitation. Aorta: Aortic root: The aortic root was normal in size. Mitral valve: Structurally normal valve. Mobility was not restricted. Doppler: Transvalvular veloc ity was within the normal range. There was no evidence for stenosi s. No regurgitation. Peak gradient: 5.1mm Hg (D). Left atrium: The atrium was mildly dilat ed. Right ventricle: The cavity size was nor mal. Wall thickness was normal. Systolic function was normal. Pulmonic valve: Doppler: Transvalvular v elocity was within the normal range. There was no evidence for stenosis. Tricuspid valve: Structurally normal bel ve. Doppler: Transvalvular velocity was within the no rmal range. Trivial regurgitation. Pulmonary artery: Pulmonary systolic pre ssure was within the normal range. Right atrium: The atrium was normal in s ize. Pericardium: There was no pericardial ef fusion. Systemic veins: Inferior vena cava: The vessel was eric l in size. *MEASUREMENT TABLES* 2D measurements Normal Left ventricle Volume, ED, MOD, 1-plane 105 ml ------- Volume, ES, MOD, 1-plane 37 ml ------- Ejection fraction, MOD, 1-plane 65 % --- ---- Volume index, ED, MOD, 1-plane 45 ml/m^2 ------- Volume index, ES, MOD, 1-plane 16 ml/m^2 ------- Aorta Root diameter, ED 40 mm ------- Ascending aorta anterior-posterior 36 mm ------- diameter, S Left atrium Anterior-posterior dimension 41 mm ----- -- Anterior-posterior dimension index 1.75 cm/m^2 <2.2 Doppler measurements Normal Left ventricle IVRT 95 ms 60-100 Mitral valve Peak E-wave velocity 113 cm/s ------- Peak A-wave velocity 89.3 cm/s ------- Deceleration time *239 ms 150-230 Peak gradient, D 5.1 mm Hg ------- Peak E/A ratio 1.27 ------- Legend: Mean values are shown as u=mean value. Asterisk (*) plasencia values outside specif ied normal range. Electronically signed by Adan Valencia MD [id number] Performing Organization Address City/State/ZIP Code Phon e Number [facility] C[facility] (ABNORMAL) PTT (04/08/2012 7:56 EDT) Pathologist Sig nature PTT 99 (H)Comment: 26 - 37 secs [facility] Therapeutic Heparin range: 65-100 seconds Specimen Blood specimen (specimen) Performing Organization Address City/[facility]/ZIP [place] Phon e Number [facility] [address] [place] [address] SERVICES [facility] [address] [place] [address] CK MB WITH TOTAL CK (04/08/2012 7:56 EDT) Pathologist Sig nature CK 65 0 - 250 U/L [facility] MB 0.76 <4.21 ng/ml [facility] Specimen Blood specimen (specimen) Performing Organization Address [facility] Phon e Number [facility] [address] [place] [address] SERVICES [facility] [address] [place] [address] TROPONIN I (04/08/2012 7:56 EDT) Pathologist Sig nature Troponin I (ng/mL) <0.034 <0.034 ng/ml [facility] Specimen Blood specimen (specimen) Performing Organization Address [facility] Phon e Number [facility] [address] [place] [address] SERVICES [facility] [address] [place] [address] HEMOGLOBIN A1C (04/08/2012 0:56 EDT) Hemoglobin A1C 6.0 % [facility] Comment: Reference Range: <5.7% Normal 5.7-6.4% Increased risk for diabetes =>6.5% Diagnostic for diabetes (if confirmed) The A1c goal for non adults in general is <7%. The A1c goal for selected patients may be significantly lower than 7% if this can be achieved without significant hypoglycemia or other adverse effects of treatment. Est Avg Glucose 126 mg/dl [facility] Comment: eAG represents the A1c result expressed as average glucose in mg/dl. Specimen Blood specimen (specimen) Performing Organization Address [facility] Phon e Number [facility] [address] [place] [address] SERVICES [facility] [address] [place] [address] DIFFERENTIAL (04/08/2012 0:51 EDT) Pathologist Sig nature Neutrophils 68.4 45.5 - 79.7 % [facility] Lymphocytes 20.1 15.0 - 46.8 % [facility] Monocytes 9.6 1.8 - 12.0 % [facility] Eosinophils 1.5 0.6 - 6.9 % [facility] Basophils 0.4 0.2 - 1.4 % [facility] ABS Neutrophils 4.54 2.20 - 8.85 K/cmm [facility] ABS Lymphs 1.33 1.09 - 3.30 K/cmm [facility] ABS Monocytes 0.63 0.1 - 0.8 K/cmm [facility] ABS Eosinophils 0.10 0.03 - 0.61 K/cmm [facility] ABS Basophils 0.02 0.01 - 0.11 K/cmm [facility] Type of Diff: Automated [facility] Specimen Performing Organization Address [facility] Phon e Number [facility] [address] [place] [address] SERVICES [facility] [address] [place] [address] (ABNORMAL) HEMAGRAM (04/08/2012 0:51 EDT) Pathologist Sig nature WBC 6.62 4.0 - 10.4 K/cmm [facility] RBC 4.21 (L) 4.36 - 5.78 M/cmm [facility] Hemoglobin 12.6 (L) 13.8 - 17.3 gm/dl [facility] HCT 36.8 (L) 39.5 - 50.2 % [facility] MCV 87 81 - 95 fl [facility] MCH 30.0 27.6 - 33.0 pg [facility] MCHC 34.3 32.8 - 36.4 gm/dl [facility] PLT 168 141 - 320 K/cmm [facility] RDW-CV 14.2 (H) 11.8 - 14.1 % [facility] Specimen Performing Organization Address [facility] Phon e Number [facility] [address] [place] [address] SERVICES [facility] [address] [place] [address] LIPID PROFILE (INCLUDES CHOLESTEROL, TRIGLYCERIDES, HDL, LDL) (04/08/2012 0:51 EDT) Cholesterol 111 mg/dl [facility] Comment: Slight hemolysis Desirable:<200 Borderline High:200-239 High:>ac=156 Triglycerides 117 mg/dl [facility] Comment: Slight hemolysis Normal:<150 Borderline High:150-199 High:200-499 Very High:>bg=882 HDL 22 mg/dl [facility] Comment: Slight hemolysis Low:<40 Normal:40-60 Desirable: >60 LDL, Calculated 66 mg/dl [facility] Comment: Optimal:<100 Near Optimal:100-129 Borderline High:130-159 High:160-189 Very High:>dj=965 Chol/HDL Ratio 5.0 [facility] Fasting? YES [facility] Specimen Performing Organization Address [facility] Phon e Number [facility] [address] [place] [address] SERVICES [facility] [address] [place] [address] CREATININE (04/08/2012 0:51 EDT) Creatinine 0.96Comment: 0.66 - 1.25 [facility] Slight hemolysis mg/dl GFR, Calculated >60 >60 [facility] ml/min/1.73m2 Specimen Blood specimen (specimen) Performing Organization Address [facility] Phon e Number [facility] [address] [place] [address] SERVICES [facility] [address] [place] [address] BUN (04/08/2012 0:51 EDT) Pathologist Sig nature BUN 19 10 - 26 mg/dl [facility] Comment: Slight hemolysis Results may be affected due to hemolysis. Specimen Blood specimen (specimen) Performing Organization Address City/[facility]/ZIP [place] Phon e Number [facility] [address] [place] [address] SERVICES [facility] [address] [place] [address] ELECTROLYTES (04/08/2012 0:51 EDT) Pathologist Sig nature Sodium 138Comment: Slight 136 - 145 mEq/L [facility] hemolysis Potassium 4.4 3.5 - 5.0 mEq/L [facility] Comment: Slight hemolysis Hemolysis may elevate potassium result. Chloride 108Comment: Slight 96 - 110 mEq/L [facility] hemolysis CO2 24Comment: Slight 24 - 32 mEq/L [facility] hemolysis Specimen Blood specimen (specimen) Performing Organization Address [facility]/ZIP [place] Phon e Number [facility] [address] [place] [address] SERVICES [facility] [address] [place] [address] CK MB WITH TOTAL CK (04/08/2012 0:51 EDT) Pathologist Sig nature CK 76 0 - 250 U/L [facility] MB 0.73 <4.21 ng/ml [facility] Specimen Blood specimen (specimen) Performing Organization Address [facility]/ZIP [place] Phon e Number [facility] [address] [place] [address] SERVICES [facility] [address] [place] [address] TROPONIN I (04/08/2012 0:51 EDT) Pathologist Sig nature Troponin I (ng/mL) <0.034 <0.034 ng/ml [facility] Specimen Blood specimen (specimen) Performing Organization Address [facility] Phon e Number [facility] [address] [place] [address] SERVICES [facility] [address] [place] [address] PTT (04/08/2012 0:51 EDT) Pathologist Sig nature PTT 28Comment: Therapeutic 26 - 37 secs [facility] Heparin range: 65-100 seconds Specimen Blood specimen (specimen) Performing Organization Address [facility]/ZIP [place] Phon e Number [facility] [address] [place] [address] SERVICES [facility] [address] [place] [id number] PROTIME (04/08/2012 0:51 EDT) Pro Time 12.1 9.5 - 13.1 [facility] secs I.N.R. 1.1 0.9 - 1.1 [facility] Comment: Ratio Moderate Intensity Coumadin INR = 2.0-3.0 Adjustments in anticoagulant therapy dose should be based upon the INR and NOT the Pro Time. Specimen Blood specimen (specimen) Performing Organization Address [facility] Phon e Number [facility] [address] [place] [address] SERVICES [facility] [address] [place] [address] (ABNORMAL) SCREENING GLUCOSE (04/08/2012 0:51 EDT) Glucose, Screening 103 (H) 70 - 100 [facility] Comment: mg/dl LAB Slight hemolysis Results may be affected due to hemolysis. Specimen Blood specimen (specimen) Performing Organization Address [facility] Phon e Number [facility] [address] [place] [address] SERVICES [facility] [address] [place] [address] TROPONIN I (04/08/2012 0:08 EDT) Pathologist Sig nature Troponin I (ng/mL) <0.034 <0.034 ng/ml [facility] Specimen Blood specimen (specimen) Performing Organization Address [facility]/ZIP Code Phon e Number [facility] [address] [place] [address] SERVICES [facility] [address] [place] [address] EKG 12-LEAD (04/07/2012 21:33 EDT) Specimen Narrative [facility] - 04/08/2012 10 :11 EDT ?[facility] ? Test Date: ?2012-04-07 Pat Name: ? DEON HUSTON ?Department: ?? ED ? Room: ? AC10 Gender: ? 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 [id number] : ?1945 ? Requested By: DINA DAVISON Order Number: [id number] ?Reading : ?? Edwin Hernandez MD ? Measurements Intervals ?Sherrill ? Rate: ? 53 ? P: ?53 CA: ? 180 ?QRS: ?45 QRSD: ? 96 ? T: ?56 QT: ? 520 ? QTc: ?502 ? Interpretive Statements SINUS BRADYCARDIA WITH 2ND DEGREE AV BLO CK, MOBITZ TYPE II LONG QT INTERVAL No previous ECG available for comparison Electronically Signed On 04-08-12 10:11: 24 EDT by Edwin Hernandez MD Procedure Note Edwin Hernandez MD - 04/08/2012 [facility] Test Date: 2012-04-07 Pat Name: DEON HUSTON Department: ED Room: [facility] Gender: M Costume Rental Clerk: [id number] : 1945 Requested By: DINA DAVISON Order Number: [id number] Reading MD: Katherine Hernandez MD Measurements Intervals Sherrill Rate: 53 P: 53 CA: 180 QRS: 45 QRSD: 96 T: 56 QT: 520 QTc: 502 Interpretive Statements SINUS BRADYCARDIA WITH 2ND DEGREE AV BLO CK, MOBITZ TYPE II LONG QT INTERVAL No previous ECG available for comparison Electronically Signed On 04-08-12 10:11: 24 EDT by Edwin Hernandez MD Performing Organization Address City/State/ZIP Code Phon e Number [facility] [address] [facility] [address] [facility] [address] [place], [place] [address] documented in this encounter Visit Diagnoses Diagnosis Chest pain Chest pain, unspecified Lipids abnormal Unspecified disorder of lipoid metabolis m HTN (hypertension) Unspecified essential hypertension Unstable angina (HCC-CMS) (HCC) Intermediate coronary syndrome Dizziness - light-headed Dizziness and giddiness SSS (sick sinus syndrome) (HCC-CMS) (HCC ) Sinoatrial node dysfunction documented in this encounter Administered Medications Inactive Administered Medications - up to 3 most recent administrations Medication Order MAR Action Action Date Dose Rate Site acetaminophen (TYLENOL) tablet 650 mg Given 04/10/2012 8:53 EDT 650 mg 650 mg, oral, EVERY 4 HOURS PRN, Starting on Marti 04/09/12 at 1403, Until Fri04/10/12 at 1634, Pain, Routine, Postprocedure Given 04/09/2012 23:22 EDT 650 mg Given 04/09/2012 17:04 EDT 650 mg aspirin chewable tablet 81 mg Given 04/10/2012 8:53 EDT 81 mg 81 mg, oral, DAILY, First dose on Fri04/08/12 at 0900, Until Discontinued, STAT Given 04/09/2012 8:04 EDT 81 mg Given 04/08/2012 9:46 EDT 81 mg ceFAZolin (ANCEF) 1,000 mg in sodium chloride Given 6:13 EDT 1,000 mg 0.9 % 50 mL IVPB 1,000 mg, intravenous, Administer over 30 Minutes, EVERY 8 HOURS, 3 doses, First dose on Marti 12 at 1430, Last dose on Fri04/10/12 at 0800, Routine, Postprocedure Given 04/09/2012 21:43 EDT 1,000 mg clopidogrel (PLAVIX) tablet 300 mg Given 04/08/2012 1:33 EDT 300 mg 300 mg, oral, NOW X1, 1 dose, On Fri04/08/12 at 0045, STAT clopidogrel (PLAVIX) tablet 75 mg Given 04/08/2012 9:46 EDT 75 mg 75 mg, oral, DAILY, First dose on Fri04/08/12 at 0900, Until Discontinued, STAT finasteride (PROSCAR) tablet 5 mg Given 04/10/2012 8:53 EDT 5 mg 5 mg, oral, DAILY, First dose on Fri04/08/12 at 0900, Until Discontinued, STAT Given 04/09/2012 8:04 EDT 5 mg Given 04/08/2012 9:46 EDT 5 mg heparin 1,000 unit/mL injection 6,200 Un its Given 04/08/2012 1:35 EDT 6,200 Units 6,200 Units (70 Units/kg ? 89.2 kg Adjusted weight), intravenous, NOW X1, 1 dose, On Fri04/08/12 at 0045, STAT heparin in D5W 25,000 Rate Documented 04/08/2012 7:30 EDT 15 Units/ kg/hr 13.4 mL/hr unit/250 mL infusion 15 Units/kg/hr ? 89.2 kg Adjusted weight (rounded to 13.4 mL/hr), intravenous, at 13.4 mL/hr, CONTINUOUS, Starting on Fri04/08/12 at 0045, Until Fri04/08/12 at 1400, STAT Rate Documented 04/08/2012 3:07 EDT 15 Units/kg/hr 13.4 mL/hr New Bag 04/08/2012 1:36 EDT 15 Units/kg/hr 13.4 mL/hr heparin injection 5,000 Units Given 04/10/2012 8:53 EDT 5,000 Units 5,000 Units, subcutaneous, EVERY 8 HOURS, First dose on Fri04/09/12 at 1600, Until Discontinued, Routine Given 04/09/2012 23:25 EDT 5,000 Units Given 04/09/2012 17:04 EDT 5,000 Units nitroglycerin 400 mcg/ml in D5W 250 ml i nfusion 1 dose, Starting on Fri04/07/12 at 2136, Until Fri at 2107 nitroglycerin 400 mcg/ml Rate Documented 04/08/2012 7:43 EDT 100 mc g/min 15 mL/hr in D5W 250 ml infusion 5 mcg/min (rounded to 0.8 mL/hr), intravenous, at 0.8 mL/hr, CONTINUOUS, Starting on Fri04/07/12 at 2245, Until Fri04/08/12 at 1513, STAT Rate Change 04/08/2012 3:09 EDT 100 mcg/min 15 mL/hr Rate Documented 04/08/2012 3:05 EDT 125 mcg/min 18.8 mL/hr pantoprazole (PROTONIX) tablet 40 mg Given 04/10/2012 8:53 EDT 40 mg 40 mg, oral, DAILY, First dose on Fri04/08/12 at 0900, Until Discontinued, STAT Given 04/09/2012 8:04 EDT 40 mg Given 04/08/2012 9:46 EDT 40 mg simvastatin (ZOCOR) tablet 40 mg Given 04/09/2012 17:04 EDT 40 mg 40 mg, oral, EVERY EVENING, First dose on Fri04/08/12 at 1700, Until Discontinued, STAT Given 04/08/2012 17:32 EDT 40 mg sodium chloride 0.9 % (NS) infusion Rate Documented 04/08/2012 7:44 EDT 75 mL/hr at 75 mL/hr, intravenous, CONTINUOUS, Starting on Fri04/08/12 at 0200, Until Fri04/08/12 at 1335, STAT New Bag 04/08/2012 1:36 EDT 75 mL/hr documented in this encounter Historical Medications This list may reflect changes made after this encounter. Medication Sig Dispensed Refills Start Date End Date finasteride (PROSCAR) 5 mg Take 5 mg by mouth 0 tablet daily. aspirin chewable 81 mg Take 81 mg by mouth 0 12/07/2018 tablet daily. omeprazole (PRILOSEC) 20 Take 40 mg by mouth 0 05/11/2019 mg capsule daily. lisinopril (PRINIVIL, Take 10 mg by mouth 0 09/15/2013 ZESTRIL) 10 mg tablet daily. simvastatin (ZOCOR) 40 mg Take 40 mg by mouth 0 11/09/2020 tablet every evening. added in this encounter Active and Recently Administered Medications Times are shown in EDT. Scheduled Medication Order 04/08/2012 04/09/2012 04/10/2012 aspirin chewable tablet 81 mg (CANCELED) 0946 (Given - Provider: Sophie Kothari RN) 0804 (Given - Provider: Rocio Mustafa, TRAM) 0853 (Gi cailin - Provider: Marie Houston, TRAM) 81 mg, Oral, DAILY, First dose on Fri04/08/12 at 0900, Until Di scontinued ceFAZolin (ANCEF) 1,000 mg in sodium chloride 0.9 % 50 mL IV PB (CANCELED) 1430 (Canceled Entry - Provider: Rocio Mustafa RN)2143 (Given - Provider: Karin Coronado, TRAM) 0000 (Canceled Entry - Provider: Rocio Mustafa RN)0613 (Given - Provider: Karin Coronado RN)0800 (Canceled Entry - Provider: Rocio Mustafa RN) 1,000 mg, Intravenous, for 30 Minutes, E VERY 8 HOURS, 3 doses, First dose on Marti 04/09/12 at 1430, Last dose on Fri04/10/12 at 0800 clopidogrel (PLAVIX) tablet 300 mg (COMPLETED) 0133 (G iven - Provider: Lexi Self, TRAM) 300 mg, Oral, NOW X1, 1 dose, Fri04/08/12 at 0045 clopidogrel (PLAVIX) tablet 75 mg (CANCELED) 09 (Giv en - Provider: Sophie Kothari RN) 75 mg, Oral, DAILY, First dose on Fri04/08/12 at 0900, Until Di scontinued finasteride (PROSCAR) tablet 5 mg (CANCELED) 945 (Giv en - Provider: Sophie Kothari, TRAM) 08 (Given - Provider: Rocio Mustafa RN) 0853 (Gi cailin - Provider: Marie Houston, TRAM) 5 mg, Oral, DAILY, First dose on Fri04/08/12 at 0900, Until Dis continued heparin 1,000 unit/mL injection 6,200 Units (COMPLETED ) 0135 (Given - Provider: Lexi Self RN) 70 Units/kg ? 89.2 kg (Adjusted weight) = 6,200 Units, Intravenous, NOW X1, 1 dose, Fri04/08/12 at 0045 heparin injection 5,000 Units (CANCELED) 1704 (Given - Provider: Joanie Cole, TRAM)2325 (Given - Provider: Karin Coronado RN) 0853 (Given - Provider: Marie Houston, TRAM) 5,000 Units, Subcutaneous, EVERY 8 HOURS , First dose on Marti 04/09/12 at 1600, Until Discontinued pantoprazole (PROTONIX) tablet 40 mg (CANCELED) 0946 ( Given - Provider: Sophie Kothari, TRAM) 0804 (Given - Provider: Rocio Mustafa RN) 0853 (Given - Provider: Marie Houston, TRAM) 40 mg, Oral, DAILY, First dose on Fri04/08/12 at 0900, Until Di scontinued simvastatin (ZOCOR) tablet 40 mg (CANCELED) 0204 (Not Given - Provider: Lexi Self RN - Reason: NPO)1732 (Given - Provider: Sophie Kothari, TRAM) 1704 (Given - Provider: Joanie Cole RN) 40 mg, Oral, EVERY EVENING, First dose o n Fri04/08/12 at 1700, Until Discontinued Continuous Medication Order 04/08/2012 04/09/2012 04/10/2012 heparin in D5W 25,000 unit/250 mL infusion (CANCELED) 0136 (New Bag - Provider: Lexi Self RN)0307 (Rate Documented - Provider: Eliceo [place], TRAM)0730 (Rate Documented - Provider: Sophie Kothari, TRAM) 15 Units/kg/hr ? 89.2 kg (Adjusted weight) = 13.4 mL/hr, Intravenous, at 13.4 mL/hr, CONTINUOUS, Starting Fri04/08/12 at 0045, Until Fri04/08/12 at 1400 nitroglycerin 400 mcg/ml in D5W 250 ml infusion (CANCE LED) 0015 (Canceled Entry - Provider: Ce Melchor RN)0305 (Rate Documented - Provider: Eliceo [place], TRAM)0309 (Rate Change - Provider: Eliceo [place], TRAM)0743 (Rate Documented - Provider: Sophie Kothari, TRAM) 5 mcg/min = 0.8 mL/hr, Intravenous, at 0 .8 mL/hr, CONTINUOUS, Starting Tu04/07/12 at 2245, Until Fri04/08/12 at 1513 sodium chloride 0.9 % (NS) infusion () 0136 (Ne w Bag - Provider: Lexi Self RN)0744 (Rate Documented - Provider: Sophie Kothari, TRAM) at 75 mL/hr, Intravenous, CONTINUOUS, St arting Fri04/08/12 at 0200, Until Fri04/08/12 at 1335 PRN Medication Order 04/08/2012 04/09/2012 04/10/2012 acetaminophen (TYLENOL) tablet 650 mg 17 04 (Given - Provider: Joanie Cole RN)2322 (Given - Provider: Karin Coronado RN) 0853 (Given - Provider: Marie Houston RN) 650 mg, Oral, EVERY 4 HOURS PRN, Startin g Marti 04/09/12 at 1403, Until Fri04/10/12 at 1634, Pain documented in this encounter Orders Medications Ordered That Might Not Have Count Last Ord ered Date First Ordered Date Been Administered oxycodone-acetaminophen (PERCOCET) 5-325 1 012 mg per tablet 1-2 Tab heparin 1,000 unit/mL injection 3,100 1 04/08/2012 Units heparin 1,000 unit/mL injection 6,200 1 04/08/2012 Units lidocaine-EPINEPHrine 2 %-1:100,000 1 04/08/2012 injection 5-10 mL omeprazole (PRILOSEC) capsule 20 mg 1 04/08/2012 sodium bicarbonate 8.4 % 150 mEq in 2 04/08/2012 dextrose 5% (D5W) 1,000 mL infusion EKG Orders Without Results Count Last Ordered Date Fir st Ordered Date EKG 12-LEAD 1 04/07/2012 Admission Count Last Ordered Date First Ordered Date STATUS: INPATIENT ACUTE ADMISSION 2 04/08/2012 04/07/2012 Transfer Count Last Ordered Date First Ordered Date NOTIFY PPS OF DISCHARGE COMPLETE 1 04/10/2012 NOTIFY PPS OF ROOM CHANGE COMPLETE 1 04/08/2012 TEACHING SERVICE 1 04/08/2012 Discharge Count Last Ordered Date First Ordered Date DISCHARGE PATIENT 1 04/10/2012 documented in this encounter Care Teams Route Sales Delivery Drivers Supervisor Relationship Specialty Start Date End Date Dereck Schultz MD PCP - General 10/19/08 02/12/[address] [place] [id number] documented as of this encounter
--- OUTSIDE RECORDS SUMMARY | 2021-12-21 01:25 | XMS_ITS | Encounter Summary ---
:1945 Author Organization [facility] Address [address] [place] [address] Care Team Providers Name Role Phone Dereck Schultz MD Primary Care Provider [phone] Encounter Details Date Type Department Care Team Description 09/14/2008 Before [facility] - Asa Mcdonnell, Converted Visit Zayra arellano MD (Zayra) [phone] [place] [phone] (Joi diallo) Social History Tobacco Use Types Packs/Day Years Used Date Never Assessed Sex Assigned at Date Recorded Not on file documented as of this encounter Plan of Treatment Upcoming Encounters Date Type Specialty Care Team Description 12/27/2021 Office Visit Hematology and Erin Barillas M D Oncology [address] [phone] (Joi diallo) 02/14/2022 Office Visit Hematology and Erin Barillas M D Oncology [address] [phone] (Joi diallo) 04/25/2022 Ancillary Procedure Cardiology 04/25/2022 Office Visit Cardiology Claire Lopez NP 130 [facility] 2[address] [place] [phone] (Wo rk) 05/13/2022 Office Visit Rheumatology Tod Perez NP 111 [facility], [address] [place] [address] (Wo rk) documented as of this encounter Procedures Procedure Name Priority Date/Time Associated Diagnosis Comme nts CYTOPATHOLOGY Routine 09/14/2008 0:00 EDT Results for this procedure are i n the results section . documented in this encounter Results CYTOPATHOLOGY (09/14/2008 0:00 EDT) Pathology Report: CYTOPATHOLOGY REPORT ? [facility] ? LAB Reports generated via electr onic interface contain original data; ? however they are lacking the format of the original report. ? Caution should be taken when reading/interpreting unformatted reports. ? Name: ? DEON VILLANUEVA ? Accession #: ? [id number] ? : ? 1945 (Age: 62) ??M ?Collect Date: ? 09/14/2008 ? Location: ? [facility] ? Receive Date: ? 09/15/2008 ? Provider: ? ASA KILLEE N MD ? Copy to: ? Specimen Type: ? Urine, Voided ? Clinical History: ? Clinical diagnosis co de: ??599.72 ? Gross Description: ? One vial of Cytolyt w as received and processed by selective cellular ? enhancement technique. ? CYTOLOGIC DIAGNOSIS: ? Urine, voided, cytolo gic evaluation: ? 1. ?Negative fo r malignant cells. ? 2. ? Many degenerated ur othelial cells. ? 3. ? Rare granular casts . ? Document reviewed and electr onically signed by: ? ABDELMONEM ELHOSSEINY MD ? Report Date: ??09/15/2008 19 :24 ? By the signature above, the attending physician certifies that he/she has ? personally conducted a gross and/or microscopic examination of the described ? specimens and rendered or co nfirmed the above diagnosis. ? End of Report ? Specimen Performing Organization Address City/[facility] Code Phon e Number [facility] [address] [place] [address] SERVICES [facility] [address] [place] [address] documented in this encounter Visit Diagnoses Not on filedocumented in this encounter Care Teams Assistant Administrator Relationship Specialty Start Date End Date Dereck Schultz MD PCP - General 10/19/08 02/12/17 [address] [place] [phone] documented as of this encounter
--- OUTSIDE RECORDS SUMMARY | 2021-12-21 01:25 | XMS_ITS | Encounter Summary ---
:1945 Author Organization [facility] Address [address] [place] [address] Care Team Providers Name Role Phone Dereck Schultz MD Primary Care Provider [phone] Encounter Details Date Type Department Care Team Description 08/27/2010 Results Only [facility] Ace Benito MD Laboratory Services - [address] [place] [address] [place] [address] [phone] Social History Tobacco Use Types Packs/Day Years Used Date Never Assessed Sex Assigned at Date Recorded Not on file documented as of this encounter Plan of Treatment Upcoming Encounters Date Type Specialty Care Team Description 12/27/2021 Office Visit Hematology and Erin Barillas M D Oncology [address] [phone] (Wo rk) 02/14/2022 Office Visit Hematology and Erin Barillas M D Oncology [address] [phone] (Wo rk) 04/25/2022 Ancillary Procedure Cardiology 04/25/2022 Office Visit Cardiology Claire Lopez NP 130 [facility] [address] [place] [phone] (Wo rk) 05/13/2022 Office Visit Rheumatology Tod Perez NP 111 [facility], [address] [place] [address] (Wo rk) documented as of this encounter Procedures Procedure Name Priority Date/Time Associated Diagnosis Comme nts SURGICAL PATHOLOGY Routine 08/27/2010 0:00 EDT Re sults for this procedure are i n the results section. documented in this encounter Results SURGICAL PATHOLOGY (08/27/2010 0:00 EDT) Pathology Report: SURGICAL PATHOLOGY REPORT ? JOHN MANNING Reports generated via electr [employer] interface contain original data; ? LAB however they are lacking the format of the original report. ? Caution should be taken when reading/interpreting unformatted reports. ? Name: ? DEON VILLANUEVA ? Accession #: ? [id number] ? : ? 1945 (Age: 64) ??M ? Collec t Date: ? 08/27/2010 ? Location: ? [facility] ? R eceive Date: ? 08/27/2010 ? Provider: BON AC MD ? Copy to: DERECK MEIERDIERCKS MD ? Final Pathologic Diagnosis: ? A. ?Duodenum, b iopsies: ? 1. ?Duodenal mu cosa with villous blunting and increased intraepithelial lymphocytes. ??See comment. ? B. ?Stomach, mariano dy, biopsies: ? 1. ?Oxyntic muc mendel with cystically dilated fundic glands. ??See comment. C. ?Esophagus, 38 cm, biopsies: ? 1. ?Clark's e sophagus. ? 2. ? Chronic inflammatio n and reactive epithelial changes. ? 3. ? No dysplasia identi fied. ? Comment: ? There is surface epit helial damage with increased intraepithelial ? lymphocytes and villous atro phy. 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 ??However, other conditions, such as bacterial overgrowth, chroni c malnutrition or hypersensitivity to other proteins may produce similar findings . ??Serologic studies may be further contributory. ?? The stomach biopsy shows dil ated fundic glands, raising the possibility of ? fundic gland polyp. Correlat ion with clinical and endoscopic findings is ? essential. ??(Dr. Brandon)/cj h ? Document reviewed and electr onically signed by: ? Jenni Cotton MD ? Report ??Date: 08/30/2010 11 :20 ? By the signature above, the attending physician certifies that he/she has ? personally conducted a gross and/or microscopic examination of the described ? specimens and rendered or co nfirmed the above diagnosis. ? Specimen(s) Received: ? A. ?Duodenum bx ? B. ? Body of stomach bx ? C. ? Esophagus 38 cm bx ? Clinical History: ? Early satiety, 30 hong nd weight loss ? Gross Description: ? Received in Andrei' s fixative labelled Deon Villanueva and duodenum ?? are two biopsies measuring 0 .3 x 0.3 x 0.2 cm and 0.6 x 0.2 x 0.1 cm. ??The ? specimen is submitted intact as (A). ? Received in [facility] fixat nathaniel labelled Deon Villanueva and #2 body of ? stomach bx are three polypo id biopsies which vary in size from 0.3 x 0.3 x 0.2 cm up to 0.5 x 0.3 x 0.3 cm. ??The specimen is submitted intact as (B). ? Received in Andrei's fixat nathaniel labelled Deon Villanueva and #3 esophagus 38 ?? cm bx are six biopsies whic h vary in size from 0.1 x 0.1 x 0.1 cm up to 0.5 x ?? 0.3 x 0.2 cm. ??The specimen is submitted intact as (C1) and (C2). ??(NITA ? Tessitore)/tmg ? End of Report ? Specimen Performing Organization Address City/State/[facility] Phon e Number [facility] [address] [place] [address] SERVICES [facility] [address] [place] [address] documented in this encounter Visit Diagnoses Not on filedocumented in this encounter Care Teams Galley Hand Relationship Specialty Start Date End Date Dereck Schultz MD PCP - General 10/19/08 02/12/17 [address] [place] [phone] documented as of this encounter
--- OUTSIDE RECORDS SUMMARY | 2021-12-21 01:25 | XMS_ITS | Encounter Summary ---
:1945 Author Organization [facility] Address [address] [place] [address] Care Team Providers Name Role Phone Dereck Narvaez MD Primary Care Provider [phone] Encounter Details Date Type Department Care Team Description 12/21/2003 Results Only [facility] Deon ellis MD conversion [address] [place] [phone] Social History Tobacco Use Types Packs/Day Years Used Date Never Assessed Sex Assigned at Date Recorded Not on file documented as of this encounter Plan of Treatment Upcoming Encounters Date Type Specialty Care Team Description 12/27/2021 Office Visit Hematology and Erin Barillas M D Oncology [address] [phone] (Joi diallo) 02/14/2022 Office Visit Hematology and Erin Barillas M D Oncology [address] [phone] (Joi diallo) 04/25/2022 Ancillary Procedure Cardiology 04/25/2022 Office Visit Cardiology Claire Lopez NP 130 [facility] [address] [place] [phone] (Joi diallo) 05/13/2022 Office Visit Rheumatology Ana, Tod Maxwell, SPECIAL WARFARE OPERATOR 111 [facility], [address] [place] [address] (Joi diallo) documented as of this encounter Procedures Procedure Name Priority Date/Time Associated Diagnosis Comme nts SURGICAL PATHOLOGY Routine 12/21/2003 0:00 EDT Re sults for this procedure are i n the results section. documented in this encounter Results SURGICAL PATHOLOGY (12/21/2003 0:00 EDT) Pathology Report: SURGICAL PATHOLOGY REPORT JONH BOB Reports generated via electronic interface contain halle ginal data; LAB however they are lacking the format of the original re port. Caution should be taken when reading/interpreting unfo rmatted reports. Name: ? ANTONIADEON PETERS ? Accession #: ? [id number] ? : ? 1945 (Age: 58) ??M ? Collect Date: ? 12/21/2003 ? Location: ? [facility] ? Receive Date: ? 004 ? Provider: MISSY VELAZQUEZ MD Copy to: DERECK NARVAEZ MD ? Final Pathologic Diagnosis: ? Colon, 30 cm, polypectomy: - Tubular adenoma. Document reviewed and electronically signed by: FLOR OSORIO MD Report ??Date: 12/27/2003 16:06 By the signature above, the attending physician certif ies that he/she has personally conducted a gross and/or microscopic examin ation of the described specimens and rendered or confirmed the above diagnosi s. Specimen(s) Received: ? Polyp 30 cm Clinical History: ? Screening colonoscopy; polyp @ 30 cm Gross Description: ? Received in Hollande' s fixative labelled Colgrove and polyp 30 cm are two martínez-pink, irregular soft tissue frag ments measuring 0.2 x 0.2 x 0.2 cm and 0.7 x 0.6 x 0.3 cm. ??The sp ecimen is entirely submitted in one cassette. ??(Pooja Cruz)/modesta End of Report Specimen Performing Organization Address City/State/ZIP Code Phon e Number [facility] [address] [place] [address] SERVICES [facility] [address] [place] [address] documented in this encounter Visit Diagnoses Not on filedocumented in this encounter Care Teams Survey Manager Relationship Specialty Start Date End Date Dereck Narvaez MD PCP - General 10/19/08 02/12/17 [address] [place] [phone] documented as of this encounter
--- OUTSIDE RECORDS SUMMARY | 2021-12-21 01:25 | XMS_ITS | Clinical Summary ---
:1945 Author Organization [facility] [place] [address] Care Team Providers Name Role Phone DaljitRohiniVianey Aimee HERMAN Primary Care Provider [phone] Allergies No known active allergies Medications Medication Sig Dispensed Refills Start Date End Date Status CIS Free Text Med - 0 10/13/2006 Active Baby ASA (aspirin) simvastatin (ZOCOR) 40 0 10/13/2006 Active mg tablet omeprazole (PRILOSEC) 0 10/13/2006 Active 20 mg capsule finasteride (PROSCAR) 5 0 10/13/2006 Active mg tablet metroNIDAZOLE Apply twice daily 45 g 5 10/04/2021 Active (METROGEL) 0.75 % Gel to rosacea for six weeks then apply once daily or every other day. Active Problems No known active problems Encounters Date Type Specialty Care Team Description 10/04/2021 Office Visit Dermatology Dustin Espinoza MD Rosace a 10/04/2021 Refill Dermatology Danya Taylor LPN from Last 3 Months Social History Tobacco Use Types Packs/Day Years Used Date Never Smoker Smokeless Tobacco: Never Used Sex Assigned at Date Recorded Not on file Plan of Treatment Upcoming Encounters Date Type Specialty Care Team Description 01/24/2022 Office Visit Dermatology Dustin Espinoza MD 580 [facility] DERMATOLOGY [place], [place] [address] (Wo rk) Health Maintenance Due Date Last Done Comments Covid-19 Vaccine (#1) 09/17/1950 Hepatitis C Screening 09/17/1961 Tdap adult 09/17/1962 Tetanus vaccine 09/17/1962 Zoster vaccine (1 of 2) 09/17/1993 Advance Directive 09/17/1998 Pneumoccocal Vaccine: 65+ (1 - PCV) 09/17/2008 Influenza (Flu) vaccine (1 of - Influenza standard 02/14/2022 series) Insurance Payer Benefit Plan / Subscriber ID Effective Phone Address T ype Group Dates [employer] [place] [id number] 2018-Prese [address] [place] [address] [place] [address] MEDICARE MEDICARE PART [id number] 2021-Prese [phone] [place] [address] Care Teams Band Nailer Relationship Specialty Start Date End Date Vianey Bocanegra APRN PCP - General Family Medicine 10/04/21 [address] [place], [place] [phone]
--- OUTSIDE RECORDS SUMMARY | 2021-12-21 01:25 | XMS_ITS | Encounter Summary ---
:1945 Author Organization [facility] [place] [address] Care Team Providers Name Role Phone Vianey Bocanegra APRN Primary Care Provider [phone] Encounter Details Date Type Department Care Team Description 10/04/2021 Refill Dermatology at [facility] Danya Winslow LPN [address] [facility] [place] [address] Social History Tobacco Use Types Packs/Day Years Used Date Never Smoker Smokeless Tobacco: Never Used Sex Assigned at Date Recorded Not on file documented as of this encounter Plan of Treatment Upcoming Encounters Date Type Specialty Care Team Description 01/24/2022 Office Visit Dermatology Dustin Espinoza MD [address] [facility] [address] DERMATOLOGY [place], [place] [address] (Wo rk) documented as of this encounter Visit Diagnoses Not on filedocumented in this encounter Care Teams Industrial Chemistry Teacher Relationship Specialty Start Date End Date Vianey Bocanegra APRN PCP - General Family Medicine 10/04/21 [address] [place] [address] documented as of this encounter
--- OUTSIDE RECORDS SUMMARY | 2021-12-21 01:25 | XMS_ITS | Encounter Summary ---
:1945 Author Organization [place] [address] Care Team Providers Name Role Phone Vianey Bocanegra BATSHEVA Primary Care Provider [phone] Reason for Visit Reason Comments Follow-up Encounter Details Date Type Department Care Team Description 10/04/2021 Office Visit Dermatology at [facility] Dustin Espinoza MD Rosacea [address] [facility] [address] [place] [phone] DERMATOLOGY [phone] [place], [place] [address] (Wo rk) Social History Tobacco Use Types Packs/Day Years Used Date Never Smoker Smokeless Tobacco: Never Used Sex Assigned at Date Recorded Not on file documented as of this encounter Progress Notes Dustin Espinoza MD - 10/04/2021 9:15 AM EDT Problem: Samira Dacosta follows up and is now 76. I last saw him in 2007. He is here today with his , Augustina. For about the last year and a half he has had a facial rash. It looks like acne. When I had seen him in 2006 I had diagnosed rosacea just on his right cheek.. They spent the winter in [place]. The rash improves when he takes oral doxycycline but they would prefer not to be on it long-term oral antibiotic. Physical examination reveals a pleasant 76-year-old gentleman with erythematous papules present in the rosacea form pattern over the nose the malar cheeks some on his chin and also on the front of the glabella. He has no involvement elsewhere. Assessment plan: Rosacea 1. Previously I had prescribed MetroGel. About a year ago he was seen at [facility] and a $600 prescriptionwas given to them. They do not want to use that again nor do they want for Praneeth to be on long-term oral antibiotics. 2. Begin metronidazole 0.75% gel apply on a twice daily basis first for 6 weeks then use this once daily once every other day. 3. Metronidazole 0.75% gel dispense 45 g with 5 refills apply once to twice daily. We will call stormcandy Raoaj in [facility]. If too expensive there, they are familiar with [facility] and I gave them awritten prescription to fill at the pharmacy of his choice 4. Return to clinic here as needed CC: Vianey Bocanegra APRN documented in this encounter Plan of Treatment Upcoming Encounters Date Type Specialty Care Team Description 01/24/2022 Office Visit Dermatology Dustin Espinoza MD 580 [facility] DERMATOLOGY [place], [place] [address] (Wo rk) documented as of this encounter Visit Diagnoses Diagnosis Rosacea documented in this encounter Care Teams Agricultural Research Director Relationship Specialty Start Date End Date Vianey Bocanegra APRN PCP - General Family Medicine 10/04/21 [address] [place] [address] documented as of this encounter
--- OUTSIDE RECORDS SUMMARY | 2021-12-21 01:25 | XMS_ITS | Encounter Summary ---
:1945 Author Organization [facility] Address [address] [place] [address] Care Team Providers Name Role Phone Dereck Narvaez MD Primary Care Provider [phone] Encounter Details Date Type Department Care Team Description 06/24/2007 Results Only [facility] Deon ellis MD conversion [address] [place] [phone] Social History Tobacco Use Types Packs/Day Years Used Date Never Assessed Sex Assigned at Date Recorded Not on file documented as of this encounter Plan of Treatment Upcoming Encounters Date Type Specialty Care Team Description 12/27/2021 Office Visit Hematology and Erin Barillas M D Oncology [address] [phone] (Joi diallo) 02/14/2022 Office Visit Hematology and Erin Barillas M D Oncology [address] [phone] (Joi diallo) 04/25/2022 Ancillary Procedure Cardiology 04/25/2022 Office Visit Cardiology Claire Lopez NP 130 [facility] [address] [place] [phone] (Joi diallo) 05/13/2022 Office Visit Rheumatology Ana, Tod Maxwell, AGRICULTURAL ENGINEERING TECHNOLOGIST 111 [facility], [address] [place] [address] (Joi diallo) documented as of this encounter Procedures Procedure Name Priority Date/Time Associated Diagnosis Comme nts SURGICAL PATHOLOGY Routine 06/24/2007 0:00 EST Re sults for this procedure are i n the results section. documented in this encounter Results SURGICAL PATHOLOGY (06/24/2007 0:00 EST) Pathology Report: SURGICAL PATHOLOGY REPORT JOHN BOB Reports generated via electronic interface contain halle ginal data; LAB however they are lacking the format of the original re port. Caution should be taken when reading/interpreting unfo rmatted reports. Name: ? DEON VILLANUEVA ? Accession #: ? [id number] ? : ? 1945 (Age: 61) ??M ? Collect Date: ? 06/24/2007 ? Location: ? [facility] ? Receive Date: ? 008 ? Provider: MISSY VELAZQUEZ MD Copy to: DERECK NARVAEZ MD ? Final Pathologic Diagnosis: A. ?Colon, 26 cm, polyp, biopsy: 1. ?Hyperplastic polyp. ??See comment. B. ?Colon, 30 cm, polyp, biopsy: 1. ?Benign fibroblastic polyp. See valerie Ryan ?Colon, 40 cm, polyp, biopsy: 1. ?Hyperplastic polyp with cautery artif act. D. ?Colon, transverse, biopsies: 1. ?Fragments of hyperplastic polyp. Comment: ? Sections (A) and (B) were shown at intradepartm ental consultation conference on 06/26/07. (Pooja Adkins) Document reviewed and electronically signed by: DOLORES ADKINS MD Report ??Date: 06/26/2007 15:38 By the signature above, the attending physician certif ies that he/she has personally conducted a gross and/or microscopic examin ation of the described specimens and rendered or confirmed the above diagnosi s. Specimen(s) Received: A. ?Polyp at 26 cm B. ? Polyp at 30 cm C. ? Polyp at 40 cm D. ? Transverse colon Clinical History: ? Hx of polyps Gross Description: ? Received in Hollande' s fixative labelled Colgrove and #1 polyp at 26 cm is a 0.5 x 0.5 x 0.3 cm firm, slightly l obular sessile polyp which is bisected and submitted entirely as (A). Received in Hollande's fixat nathaniel labelled Colgrove and #2 polyp at 30 cm is a 0.3 x 0.3 x 0.2 cm firm, smooth-surface sessile polyp which is bisected and submitted entirely as (B). Received in Hollande's fixat nathaniel labelled Colgrove and #3 polyp at 40 cm is a 0.9 x 0.2 x 0.2 cm piece of tissue which is submitted intact as (C). Received in Hollande's fixative labelled Colgro ve and #4 transverse colon are two firm pieces of tissue each of which jaquelin ures 0.2 x 0.2 x 0.2 cm which are submitted intact as (D). (Raul Bartholomew)/mpl End of Report Specimen Performing Organization Address City/State/ZIP Code Phon e Number [facility] [address] [place] [id number] SERVICES [facility] [address] [place] [address] documented in this encounter Visit Diagnoses Not on filedocumented in this encounter Care Teams Life Enrichment Manager Relationship Specialty Start Date End Date Dereck Narvaez MD PCP - General 10/19/08 02/12/[address] [place] [phone] documented as of this encounter
--- OUTSIDE RECORDS SUMMARY | 2021-12-21 01:25 | XMS_ITS | Encounter Summary ---
:1945 Author Organization [facility] Address [address] [place] [address] Care Team Providers Name Role Phone Dereck Narvaez MD Primary Care Provider [phone] Encounter Details Date Type Department Care Team Description 11/06/2005 Results Only [facility] - Luke Shen MD [employer] [address] [place] [address] [id number] [phone] Social History Tobacco Use Types Packs/Day Years Used Date Never Assessed Sex Assigned at Date Recorded Not on file documented as of this encounter Plan of Treatment Upcoming Encounters Date Type Specialty Care Team Description 12/27/2021 Office Visit Hematology and Erin Barillas M D Oncology [address] [phone] (Wo rk) 02/14/2022 Office Visit Hematology and Erin Barillas M D Oncology [address] [phone] (Wo rk) 04/25/2022 Ancillary Procedure Cardiology 04/25/2022 Office Visit Cardiology Claire Lopez , FESTUS [address] [facility] [address] [place] [phone] (Wo rk) 05/13/2022 Office Visit Rheumatology Tod Perez NP [address] [facility], [address] [place] [address] (Wo rk) documented as of this encounter Procedures Procedure Name Priority Date/Time Associated Diagnosis Comme nts SURGICAL PATHOLOGY Routine 11/06/2005 0:00 EDT Re sults for this procedure are i n the results section. documented in this encounter Results SURGICAL PATHOLOGY (11/06/2005 0:00 EDT) Pathology Report: SURGICAL PATHOLOGY REPORT JOHN BOB Reports generated via electronic interface contain halle ginal data; LAB however they are lacking the format of the original re port. Caution should be taken when reading/interpreting unfo rmatted reports. Name: ? DEON VILLANUEVA ? Accession #: ? [id number] ? : ? 1945 (Age: 60) ??M ? Collect Date: ? 11/06/2005 ? Location: ? [facility] ? Receive Date: ? 006 ? Provider: LUKE SHEN MD Copy to: DERECK NARVAEZ MD ? Final Pathologic Diagnosis: ? Gallbladder, cholecystectomy: 1. ?Chronic cholecystitis. 2. ?Benign cystic duct lymph node. Document reviewed and electronically signed by: DOLORES DORSEY MD Report ??Date: 11/08/2005 15:51 By the signature above, the attending physician certif ies that he/she has personally conducted a gross and/or microscopic examin ation of the described specimens and rendered or confirmed the above diagnosi s. Specimen(s) Received: ? Gallbladder Clinical History: ? Biliary colic Gross Description: ? Received in formalin labelled [place]gro[place] and gallbladder is a product of a cholecystectomy which jaquelin ures 8.0 x 4.2 x 2.5 cm and is received closed. ??The serosa is dark green to yellow, smooth and glistening. ??There is a moderate amount of attached adipose tissue on the non-hep atic side of the gallbladder. The cystic duct measures 0.4 cm in length by 0.2 cm in diameter and shows a 0.1 cm lumen. ??A possible cysti c duct lymph node is identified which measures 0.5 x 0.3 x 0.3 cm. ??The gallblad perla is open revealing a moderate amount of dark green bile. ??The mucosa is dark green, smooth and glistenin g. ??No choleliths are identified. ??The gallbladder wall measures less than 0.1 cm in thickness. Utility Worker Driver sections to include cysti c duct margin en face, body and fundus are submitted as (A1) and th e cystic duct lymph node is submitted as (A2). (Dr. Vann)/[facility] End of Report Specimen Performing Organization Address City/State/ZIP Code Phon e Number [facility] [address] [place] [address] [facility] [address] [place] [address] documented in this encounter Visit Diagnoses Not on filedocumented in this encounter Care Teams Client Renewal Specialist Relationship Specialty Start Date End Date Dereck Narvaze MD PCP - General 10/19/08 02/12/17 [address] [place] [address] documented as of this encounter
[2021-12-21 10:17] LABS: HCT 44.6 % (40.0-50.0)
[2021-12-21] MEDS: Normal Saline Flush 10 ML SYR IVP (10:50)
[2021-12-21 10:59] VITALS: BP 162/80; PULSE 60; RESP 16; TEMP 36.4; O2SAT 100
== END 2022-01-13 23:59 | disposition home or self-care (01) ==
LOC: INF 01:13
PROVIDERS: PCP Nurse Practitioner Family; Visit Provider Student in an Organized Health Care Education/Training Program
DX: D45 Polycythemia vera (principal)
CPT/HCPCS: 36415; 99195; 85014

== ENCOUNTER 2022-02-11 04:31 | Outpatient (CLI) | payer MEDICARE, BC, SELFPAY ==
[2022-02-11 08:04] LABS: Abs Immature Grans 0.05 10^3/uL (0.0-0.06); Absolute Basophil Count 0.08 10^3/uL (0.0-0.2); Absolute Eosinophil Count 0.22 10^3/uL (0.0-0.7); Absolute Lymphocyte Count 1.44 10^3/uL (1.2-3.4); Absolute Monocyte Count 0.62 10^3/uL (0.1-0.8); Absolute Neutrophil Count 6.42 10^3/uL (1.2-6.7); Basophils % 0.9; Eosinophils % 2.5; HCT 43.2 % (40.0-50.0); HGB 12.3 g/dL (13.5-17.5); Immature Grans % 0.6; Lymphocytes % 16.3; MCH 22.4 pg (27.0-33.0); MCHC 28.5 % (32.0-36.0); MCV 79 fL (80-95); Neutrophils % 72.7; RBC 5.48 10^6/uL (4.36-5.78); RDW 19.2 % (11.8-14.1); RDW-SD 53.5 fL; WBC 8.83 10^3/uL (4.4-10.8)
[2022-02-11 08:35] LABS: Platelet Count 255 10^3/uL (130-400)
[2022-02-11 08:42] LABS: ALT 15 U/L (16-63); AST 16 U/L (15-37); Alkaline Phosphatase 71 U/L (46-116); Anion Gap 7.9 mmol/L (3-11); BUN 22 mg/dL (7-18); Bilirubin, Total 0.5 mg/dL (0.2-1.0); CO2 28.1 mmol/L (21.0-32.0); CREATININE 1.1 mg/dL (0.70-1.30); Chloride 105 mmol/L (98-107); Glucose 128 mg/dL (74-106); Potassium 4.7 mmol/L (3.5-5.1); Sodium 141 mmol/L (136-145); Total Protein 7.4 g/dL (6.4-8.2)
[2022-02-11 09:44] LABS: Hemoglobin A1C 6.4 % (<5.7)
== END 2022-02-11 04:32 | disposition home or self-care (01) ==
PROVIDERS: PCP Nurse Practitioner Family; Visit Provider Nurse Practitioner Family
DX: R73.03 Prediabetes (principal); I10 Essential (primary) hypertension; R51.9 Headache, unspecified; K21.9 Gastro-esophageal reflux disease without esophagitis; G25.81 Restless legs syndrome
CPT/HCPCS: 36415; 80053; 83036; 85025

== ENCOUNTER 2022-05-23 01:46 | Outpatient (CLI) | payer MEDICARE, BC, SELFPAY ==
[2022-05-23 07:30] LABS: Abs Immature Grans 0.16 10^3/uL (0.0-0.06); Absolute Basophil Count 0.06 10^3/uL (0.0-0.2); Absolute Eosinophil Count 0.15 10^3/uL (0.0-0.7); Absolute Lymphocyte Count 1.22 10^3/uL (1.2-3.4); Absolute Monocyte Count 0.71 10^3/uL (0.1-0.8); Basophils % 0.6; Eosinophils % 1.6; HCT 44.7 % (40.0-50.0); HGB 12.8 g/dL (13.5-17.5); Immature Grans % 1.7; MCH 23.2 pg (27.0-33.0); MCHC 28.6 % (32.0-36.0); MCV 81 fL (80-95); MPV 10.7 fL (8.0-11.0); Monocytes % 7.6; Neutrophils % 75.5; Platelet Count 371 10^3/uL (130-400); RBC 5.51 10^6/uL (4.36-5.78); RDW 19.3 % (11.8-14.1); RDW-SD 54.7 fL
[2022-05-23 08:21] LABS: ALT 23 U/L (16-63); AST 19 U/L (15-37); Albumin 3.9 g/dL (3.4-5.0); Alkaline Phosphatase 76 U/L (46-116); Anion Gap 7.6 mmol/L (3-11); BUN 19 mg/dL (7-18); Bilirubin, Total 0.5 mg/dL (0.2-1.0); CO2 30.4 mmol/L (21.0-32.0); CREATININE 1.4 mg/dL (0.70-1.30); Calcium 9.2 mg/dL (8.5-10.1); Chloride 102 mmol/L (98-107); Estimated GFR 51.45 (mL/min/1.73m2); Glucose 128 mg/dL (74-106); Potassium 4.3 mmol/L (3.5-5.1); Sodium 140 mmol/L (136-145); Total Protein 7.4 g/dL (6.4-8.2)
== END 2022-05-23 01:47 | disposition home or self-care (01) ==
PROVIDERS: PCP Nurse Practitioner Family; Visit Provider Nurse Practitioner Family
DX: Z87.39 Personal history of other diseases of the musculoskeletal system and connective tissue (principal); Z79.899 Other long term (current) drug therapy; M06.09 Rheumatoid arthritis without rheumatoid factor, multiple sites
CPT/HCPCS: 36415; 80053; 85025

== ENCOUNTER 2022-06-21 02:09 | Outpatient (RCR) | payer MEDICARE, BC, SELFPAY ==
[2022-06-21] MEDS: Normal Saline Flush 10 ML SYR IVP (09:05)
[2022-06-21 09:07] LABS: HCT 45.3 % (40.0-50.0); HGB 12.7 g/dL (13.5-17.5)
== END 2022-07-16 23:59 | disposition home or self-care (01) ==
LOC: INF 02:09
PROVIDERS: PCP Nurse Practitioner Family; Visit Provider Student in an Organized Health Care Education/Training Program
DX: D45 Polycythemia vera (principal)
CPT/HCPCS: 36415; 51798; 81003; 99195; 99213; 85014; 85018

== ENCOUNTER 2022-10-21 02:59 | Outpatient (CLI) | payer MEDICARE, BC, SELFPAY ==
[2022-10-21 07:21] LABS: Abs Immature Grans 0.04 10^3/uL (0.0-0.06); Absolute Basophil Count 0.09 10^3/uL (0.0-0.2); Absolute Eosinophil Count 0.18 10^3/uL (0.0-0.7); Absolute Lymphocyte Count 1.38 10^3/uL (1.2-3.4); Absolute Monocyte Count 0.69 10^3/uL (0.1-0.8); Absolute Neutrophil Count 7.21 10^3/uL (1.2-6.7); Basophils % 0.9; Eosinophils % 1.9; HCT 42.6 % (40.0-50.0); HGB 12.1 g/dL (13.5-17.5); Immature Grans % 0.4; Lymphocytes % 14.4; MCH 21.8 pg (27.0-33.0); MCHC 28.4 % (32.0-36.0); MCV 77 fL (80-95); Monocytes % 7.2; Neutrophils % 75.2; Platelet Count 338 10^3/uL (130-400); RBC 5.56 10^6/uL (4.36-5.78); RDW 19.9 % (11.8-14.1); RDW-SD 53.4 fL; WBC 9.59 10^3/uL (4.4-10.8)
[2022-10-21 08:06] LABS: Anisocytosis 2+; Poikilocytes 2+; Polychromasia Present
== END 2022-10-21 03:00 | disposition home or self-care (01) ==
PROVIDERS: PCP Nurse Practitioner Family; Visit Provider Nurse Practitioner Family
DX: M19.90 Unspecified osteoarthritis, unspecified site (principal); Z79.899 Other long term (current) drug therapy; M06.09 Rheumatoid arthritis without rheumatoid factor, multiple sites
CPT/HCPCS: 36415; 85025

== ENCOUNTER 2022-10-31 01:27 | Outpatient (CLI) | payer MEDICARE, BC, SELFPAY ==
--- NOTE | 2022-10-31 07:30 | DI.CT_ITS ---
Exam(s) CT CHEST WO EXAM: CT CHEST WO CLINICAL HISTORY: f/u nodules,r91.8. TECHNIQUE: Imaging protocol: Axial computed tomography images were obtained and coronal and sagittal reformatted images were created and reviewed. COMPARISON: CT CT CHEST WO from 10/10/2021 FINDINGS: Tracheobronchial tree: Patent where visualized. Pulmonary parenchyma: No consolidation or dominant measurable mass. There are calcified granuloma pre sent. There again seen several noncalcified pulmonary nodules. No new pulmonary nodules are present . Mediastinum and Fabi: No dominant adenopathy or fluid collection. The esophagus is unremarkable.There is a small hiatal hernia. Thyroid gland: Unremarkable. Pleura: No effusion or pneumothorax. Heart: The heart is not dilated. Moderate coronary artery calcification is present. No pericardial e ffusion. Aorta: Thoracic aorta non-dilated. Atherosclerosis is present. Upper abdomen: Status post cholecystectomy. Lymph nodes: Within normal limits. Tubes, Catheters, and Lines: There is a single lead cardiac pacing device in place. Soft tissues: Bilateral gynecomastia. Bones:Within normal limits for the patient's age. IMPRESSION: Stable calcified and noncalcified pulmonary nodules. RADIATION DOSE DELIVERED: 546.22mGy.cm Total DLP 546.22mGy.cm Total DLP DATA REPOSITORY: All CT scans at this facility are submitted to the National Radiology Data Registry (NRDR) Dose Index Registry (DIR) with the [employer] (ACR). RADIATION OPTIMIZATION: All CT scans at this facility use at least one of these dose optimization te chniques: automated exposure control; mA and/or kV adjustment per patient size (includes targeted exa ms where dose is matched to clinical indication); or iterative reconstruction.
== END 2022-10-31 01:47 ==
PROVIDERS: PCP Nurse Practitioner Family; Visit Provider Student in an Organized Health Care Education/Training Program
DX: R91.8 Other nonspecific abnormal finding of lung field (principal); R59.0 Localized enlarged lymph nodes
CPT/HCPCS: 71250

== ENCOUNTER 2022-11-04 02:37 | Outpatient (CLI) | payer MEDICARE, BC, SELFPAY ==
[2022-11-04] MEDS: Inhaler, Assist Device 1 EACH MC (11:06)
[2022-11-04] MEDS: Albuterol HFA 18 GM 200 PUFF INH IH (11:06)
--- NOTE | 2022-11-04 13:49 | W.PFT ---
Date of service: 11/04/22 Time of Service: 10:05 Pulmonary Function Test Result Indications: Methotrexate induced pulmonary fibrosis Interpretation Spirometry: There is no airflow limitation. There is no bronchodilator response. Lung Volumes: Normal lung volumes Diffusion Capacity: Normal diffusion Airway Pressure: Normal airways resistance Impression Normal pulmonary function testing. Clinical Correlation therefore is recommended.
== END 2022-11-04 02:38 | disposition home or self-care (01) ==
LOC: RT 02:37
PROVIDERS: PCP Nurse Practitioner Family; Visit Provider Student in an Organized Health Care Education/Training Program
DX: J70.2 Acute drug-induced interstitial lung disorders (principal)
CPT/HCPCS: 94060; 94726; 94729

== ENCOUNTER 2022-11-14 09:23 | Outpatient (REF) | payer MEDICARE, BC, SELFPAY ==
[2022-11-14 10:17] LABS: Anion Gap 6.1 mmol/L (3-11); BUN 18 mg/dL (7-18); CO2 26.9 mmol/L (21.0-32.0); CREATININE 1.1 mg/dL (0.70-1.30); Calcium 9.1 mg/dL (8.5-10.1); Chloride 104 mmol/L (98-107); Estimated GFR 68.29 (mL/min/1.73m2); Glucose 125 mg/dL (74-106); Potassium 4.4 mmol/L (3.5-5.1); Sodium 137 mmol/L (136-145)
== END 2022-11-14 09:24 | disposition home or self-care (01) ==
LOC: LBN 09:23
PROVIDERS: PCP Nurse Practitioner Family; Visit Provider Student in an Organized Health Care Education/Training Program
DX: N18.30 Chronic kidney disease, stage 3 unspecified (principal)
CPT/HCPCS: 80048

== ENCOUNTER → 2022-11-14 09:27 | Outpatient (BNVA) | payer MEDICARE, BC, SELFPAY | PROVIDERS: PCP Nurse Practitioner Family; Referring Provider Nurse Practitioner Family; Visit Provider Physical Therapy Assistant | DX: K22.70 Barrett's esophagus without dysplasia (principal); D64.9 Anemia, unspecified | CPT/HCPCS: 99213 ==

== ENCOUNTER 2022-12-03 09:27 | Day surgery (SDC) | payer MEDICARE, BC, SELFPAY ==
--- NOTE | 2022-12-02 22:00 | ENDO_ITS ---
Date of service: 12/03/22 Time of Service: 09:00 Endoscopy Report DATE OF PROCEDURE: 12/03/22 PRE-OP DIAGNOSIS: Clark's /GERD/Anemia/hiatal hernia POST-OP DIAGNOSIS: same (also duodenal polyp) SURGEON: Swetha Tobin ANESTHESIA TYPE: General:No Airway ESTIMATED BLOOD LOSS: 1 PATHOLOGY: other COMPLICATIONS: None DISPOSITION: same day PROCEDURE DESCRIPTION: After informed consent was obtained the patient was take to the procedure room and placed in a supine position. Monitors were applied and a time out was done. The patients name, date of , procedure type, allergies to medications and metal in their body was reviewed. A bite block was placed and the patient was sedated. Once sedated and comfortable the gastroscope was advanced through the oropharynx which was grossly normal into the esophagus. The proximal and mid- esophagus were normal. In the distal esophagus there was 1 cm sliding-type hiatal hernia noted there is a x1, 5 mm tongue of Clark's at the 7 o'clock position. Otherwise there is no erosions, stricture, diverticula or varices noted. The scope was advanced into the stomach and through the pylorus into the 3rd portion of the duodenum. The duodenum was noted to be normal. There is a small polyp in D1. This is removed with a cold biting forcep. The scope was retracted back into the stomach and biopsies were done to rule out H. pylori. There are no gastritis or ulcers. The scope was retroflexed. The cardia and fundus were noted to be normal. There a small 1 cm sliding-type hiatal hernia noted. The scope was retracted back into the esophagus and biopsies were done of the GE junction to rule out Clark's. The Z line was irregular. The GE junction was at 42 cm. The scope was removed and the patient was woken up and taken back to [facility] in stable condition.
--- NOTE | 2022-12-02 22:02 | W.PM.DSUDISC ---
Date of service: 12/03/22 Time of Service: 12:58 Discharge Plan Disposition Patient Disposition: Home Condition: Good Discharge Details Reason For Visit: stomach and colon scope Attending Provider: Swetha Tobin Primary Care Provider: Vianey Bocanegra Home Meds and New Rx's Prescriptions: Continued hydroxyurea 500 mg capsule 500 mg PO DAILY simvastatin 40 mg tablet 40 mg PO DAILY sulfasalazine 500 mg tablet 0.5 g PO BID Rx Instructions: give with food (meal/snack) metronidazole 0.75 % gel 1 applic topical DAILY PRN gabapentin 300 mg capsule 300 mg PO QHS Qty: 60 2RF metoprolol succinate 25 MG tablet extended release 24 hr 25 mg PO HS Qty: 90 omeprazole 40 MG capsule,delayed release(DR/EC) 40 mg PO DAILY Qty: 90 3RF Rx Instructions: Take in the morning on an empty stomach at least 20-30 minutes before first meal finasteride 5 mg tablet 5 mg PO DAILY Qty: 90 4RF Held aspirin 81 mg tablet,chewable 81 mg PO DAILY Hold Instructions: Resume on 12/06/22. Discontinued bisacodyl [Dulcolax (bisacodyl)] 5 mg tablet,delayed release (DR/EC) 5 mg PO ONCE Qty: 4 0RF Rx Instructions: Take per colonoscopy instructions provided by ordering providers office polyethylene glycol 3350 17 gram/dose powder 17 g PO ONCE Qty: 238 0RF Rx Instructions: Take per colonoscopy instructions provided by ordering providers office Discharge Instructions Additional Instructions: DSU Colonoscopy Post-Op Instructions Instructions for Everyone who is given Anesthesia: For your safety, please do the following for the next twenty-four (24) hours: *Do Not operate a motor vehicle (car, truck, motorcycle, etc.) *Do Not drink alcoholic beverages or use any recreational drugs for the first 24 hours or while taking pain medications. The medications in your body may have a reaction that can be dangerous. *Do Not make any important decisions or sign any important papers. Findings: chronic reflux small polyp in colon Continue with lifestyle modifications: no alcohol, tobacco products, Aspirin or NSAID's (ibuprofen, Motrin, Naprosyn, aleve, etc), soda pop/any carbonated beverages, caffeine (including tea & chocolate), and acidic foods, (tomatoes, citrus, onions, peppermints) spicy or fried/fatty foods. Do not lie down for 30 minutes after eating, and do not eat 2 hours prior to bedtime. Avoid wearing tight fitting clothing/ belts Follow up: My office will send a letter in 2 to 3 weeks time with the results of the biopsies 1. No lifting over 20 pounds or strenuous activity for the first 24 hours after your procedure. After 24 hours there are no restrictions on your activity but you may feel fatigued for a few days. 2. After you arrive home you may have a light meal and return to your normal diet as you can tolerate it without feeling sick to your stomach. 3. You may have a bloated, gaseous feeling in your belly (abdomen) after a colonoscopy. Passing gas and belching will help. Walking or lying down on your left side with your knees flexed may relieve the discomfort. Call the office at [phone] (Office) or [phone] (Hospital) right away if you notice any of the following: a.Vomiting of blood or ?coffee ground stools?. b.Rectal bleeding 1Tbsp, blood clots or continuous bleeding. c.Severe belly (abdominal) pain. d.A hard distended belly (abdomen) and an inability to pass gas.Patient is seen and examined after they are endoscopy.? Patient has minimal sore throat.? They have been able to tolerate liquids.? They do not have any nausea vomiting.? They are not having any chest pain or shortness of breath.? They have been able to pass gas and are not having any abdominal pain or distention.? They have not vomited any blood.? The vital signs have been stable-see nursing notes. We discussed findings on their endoscopy. We reviewed the importance of lifestyle modification-see discharge instructions We reviewed any new medications that the patient may be prescribed-see discharge instructions Patient will either be sent a letter with the biopsy results or follow-up in the office-see discharge instructions. Patient was given explicit instructions to follow-up regarding post endoscopy-refer to discharge Patient verbalized understanding and discharged in stable and satisfactory condition.? See nursing notes. 4. Please don?t expect to have a normal see above (bowel movement) for 2-3 days after your procedure. 5. If there are questions regarding the findings of your procedure, please contact your doctor 6. If you are unable to contact your doctor with a problem, contact the hospital at [phone]. 7. Continue all your regular medications unless directed otherwise. I understand the above instructions and have no questions. Signature of Patient or Adult Escort Name of Responsible Adult Escort Signature of Nurse Date/Time Stand Alone Forms: Anesthesia Discharge Inst., Reji Chung ([facility]U) Referrals: Swetha Tobin DO [OSTEOPATHIC DOCTOR] - 12/23/22 11:30 am Activity:: see [facility] Diet:: see above Discharge Orders Discharge Orders: Discharge Order (Routine); Ordered 12/03/22 Ordered By: Swetha Tobin DS: Diagnosis Discharge Diagnosis (1) Coronary artery calcification seen on CAT scan: Status: Acute (2) Hiatal hernia with gastroesophageal reflux: Status: Acute Asessment and Plan: Patient is seen and examined after they are endoscopy.? Patient has minimal sore throat.? They have been able to tolerate liquids.? They do not have any nausea vomiting.? They are not having any chest pain or shortness of breath.? They have been able to pass gas and are not having any abdominal pain or distention.? They have not vomited any blood.? The vital signs have been stable-see nursing notes. We discussed findings on their endoscopy. We reviewed the importance of lifestyle modification-see discharge instructions We reviewed any new medications that the patient may be prescribed-see discharge instructions Patient will either be sent a letter with the biopsy results or follow-up in the office-see discharge instructions. Patient was given explicit instructions to follow-up regarding post endoscopy-refer to discharge Patient verbalized understanding and discharged in stable and satisfactory condition.? See nursing notes. (3) Hx of adenomatous colonic polyps: Status: Acute Asessment and Plan: The patient is seen and examined after their colonoscopy.? The patient has been able to pass gas.? They are not having abdominal pain.? They have been able to tolerate liquids and a snack.? They do not have any nausea or vomiting.? They are not having any chest pain or shortness of breath.??? They are not having any rectal bleeding. Their vital signs have been stable-see nursing notes. We discussed findings during their colonoscopy, and any biopsies that were done/polyps that were removed. The patient will be sent a letter with any biopsy results, and when to repeat the colonoscopy.-see discharge instructions. Patient was given explicit instructions to follow-up regarding colonoscopy-refer to discharge instructions.? We reviewed resumption of medications. Patient verbalized understanding and discharged in stable and satisfactory condition- See nursing notes. 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 Patient has minimal sore throat.? They have been able to tolerate liquids.? They do not have any nausea vomiting.? They are not having any chest pain or shortness of breath.? They have been able to pass gas and are not having any abdominal pain or distention.? They have not vomited any blood.? The vital signs have been stable-see nursing notes. We discussed findings on their endoscopy. We reviewed the importance of lifestyle modification-see discharge instructions We reviewed any new medications that the patient may be prescribed-see discharge instructions Patient will either be sent a letter with the biopsy results or follow-up in the office-see discharge instructions. Patient was given explicit instructions to follow-up regarding post endoscopy-refer to discharge Patient verbalized understanding and discharged in stable and satisfactory condition.? See nursing notes. (5) Barretts esophagus: (6) BPH (benign prostatic hyperplasia): (7) Celiac disease: (8) GERD (gastroesophageal reflux disease): (9) Hyperlipidemia: (10) Polycythemia: (11) Pre-diabetes: (12) Rosacea: (13) Sick sinus syndrome: (14) Sleep apnea: (15) Stage 3 chronic kidney disease: (16) Tubular adenoma:
--- NOTE | 2022-12-02 22:17 | COLE_ITS ---
Date of service: 12/03/22 Time of Service: 12:00 Colonoscopy Report Date of procedure: 12/03/22 Pre-op diagnosis general: previous polyps/anemia Post-op diagnosis procedure note: other (Polyps at 20 cm) Surgeon: Swetha Tobin Anesthesia Type: General:No Airway Estimated blood loss (mL): 1 Complications: None Disposition: PACU Prep: Miralax/Dulcolax Retraction Time: 9 Procedure Description: After informed consent was obtained the patient was taken to the procedure room and placed in a left decubitous position. Monitors were applied and a time out was done. The patients name, date of , procedure, allergies to medications and metal in their body was reviewed. The patient was then sedated. Once sedated and comfortable a rectal exam was done. External exam was normal. Internal exam revealed a normal sphincter tone and no palpable masses. The scope was then introduced and retrofelexed. Grade II internal hemorrhoids were identified, x 3 columns. The scope was then advanced to the cecum without difficulty. The TI and appendiceal orifice were identified. The prep was BBPS 2 in all segments for total of 6.. The scope was then slowly retracted over 9 minutes back into the rectum. At 20 cm there are multiple flat 5 mm polyps. A vaccine customer representative polyp was removed with a cold biting forcep. All specimen was retrieved and no bleeding is noted. These are most likely hyperplastic. There are no AVMs or diverticula visualized today.. The scope was removed and the patient was woken up and taken back to Same day surgery in stable condition. The patient tolerated the procedure well and there were no immediate complicati ons. Follow up: The patient does not require any further colonoscopies, unless they develop changes in bowel habits or other new gastrointestinal complaints.
[2022-12-03 09:43] VITALS: BP 142/82; PULSE 80; RESP 18; TEMP 36.6; O2SAT 98
[2022-12-03 09:47] VITALS: BMI 30.5
--- NOTE | 2022-12-03 09:47 | W.ANESPRE ---
General Info Date of Service Date Performed: 12/03/22 Height: 6 ft Weight: 102.058 kg Body Mass Index (BMI): 30.5 Surgical Procedure: Operation Date: 12/03/22 10:35 Proposed Procedure Side Surgeon p Colonoscopy/Gastroscopy Swetha Tobin, Meds Allergies and Home Medications Allergies Allergy/AdvReac Type Severity Reaction Status Date / Time methotrexate AdvReac Intermediate pulmonary Verified 12/02/22 13:09 fibrosis lisinopril AdvReac Mild cough Unverified 12/02/22 13:09 Home Medication Medication Instructions Recorded metoprolol succinate 25 mg 25 mg PO HS ##90 09/16/16 tablet,extended release 24 hr omeprazole 40 mg capsule,delayed 40 mg PO DAILY #90 tab-caps 04/30/17 release aspirin 81 mg chewable tablet 81 mg PO DAILY 06/20/20 hydroxyurea 500 mg capsule 500 mg PO DAILY 06/20/20 sulfasalazine 500 mg tablet 0.5 g PO BID 06/11/21 simvastatin 40 mg tablet 40 mg PO DAILY 06/22/21 metronidazole 0.75 % topical gel 1 applic topical DAILY PRN 12/10/21 finasteride 5 mg tablet 5 mg PO DAILY prostate #90 tabs 06/30/22 gabapentin 300 mg capsule 300 mg PO QHS #60 caps 11/07/22 Current Visit Medications: Current Medications Generic Name Dose Route Start Last Admin Trade Name Freq PRN Reason Stop Dose Admin Hyoscyamine Sulfate 0.125 mg 12/03/22 10:20 Hyoscyamine 0.125 Mg Sl/Oral/Chew SL 01/02/23 10:19 DIRECTED PRN Ringer's Solution 1,000 mls @ 80 mls/hr 12/03/22 06:00 IV 01/01/23 23:59 INFUSION [facility] IV Miscellaneous Supplies 1 each 12/03/22 06:00 Iv Access IV 01/01/23 23:59 DIRECTED LORENA Ondansetron HCl 4 mg 12/03/22 10:20 Ondansetron 4 Mg/2 Ml Vial IVP 01/02/23 10:19 Q4H PRN PRN Nausea / Vomiting Sodium Chloride 0 ml 12/03/22 06:00 Normal Saline Flush 10 Ml Syr IV 01/01/23 23:59 PRN PRN Sodium Chloride 0 ml 12/03/22 06:00 Normal Saline 10 Ml Vial IJ 01/01/23 23:59 DIRECTED PRN Sterile Water 0 ml 12/03/22 06:00 Water,Injection,Sterile 10 Ml Vial IJ 01/01/23 23:59 DIRECTED PRN PFSH Active Problems Active Problems: Problem Status Onset Code 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 K22.70 Hx of adenomatous colonic polyps Z86.010 Hiatal hernia with gastroesophageal reflux K44.9, K21.9 Coronary artery calcification seen on CAT scan I25.10 Cardiac pacemaker in situ Z95.0 Benign hypertension I10 Hypercholesterolemia E78.0 History of surgery Z98.89 BPH w/o urinary obs/LUTS 09/20/11 N40.0 Clark's esophagus 09/20/11 K22.70 Cardiac dysrhythmia, unspecified 06/03/12 I49.9 Carpal tunnel syndrome 10/13/13 G56.00 Celiac disease 09/20/11 K90.0 Chest pain 01/08/13 R07.9 Fundic gland polyps of stomach, benign 11/20/16 D13.1 Gastroesophageal reflux disease 09/20/11 K21.9 Gynecomastia 06/30/15 N62 BPH w urinary obs/LUTS 09/20/11 N40.1, N13.8 Hyperlipidemia 09/20/11 E78.5 Impaired fasting glucose 09/20/11 R73.01 Inflammatory polyarthropathy 10/13/13 M06.4 Microscopic hematuria 09/16/13 R31.29 Obesity 01/08/13 E66.9 Obstructive sleep apnea syndrome 09/20/11 G47.33 Rosacea 02/18/17 L71.9 Stage 3 chronic kidney disease 01/31/17 N18.3 Pre-syncope R55 Light headed R42 Pacemaker Z95.0 Hypertensive disorder I10 Hypercholesteremia E78.00 Enlarged prostate N40.0 Facial rash R21 Exertional chest pain R07.9 Dyspnea R06.00 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 states he does not have this anymore Stage 3 chronic kidney disease Tinea corporis Tubular adenoma Surgical History Surgical History (Updated 12/02/22 @ 13:19 by Ricardo Grijalva) Cardiac Cath 2012 Cholecystectomy 2006 Colonoscopy - IV Sedation (03/13/15) 2008,2014 DR.ANNICK ELA EGD - IV Sedation 2007 2010-Clark's 02/03/17 W/ BX EGD - MAC (10/23/16) Extraction of cataract Left and Right 2006 Pacemaker 2001 Implant date (per pt. battery was changed per [facility] visit was 06/27/2020 (8.8 year battery longevity) [employer] VVIR Indication: Bradycardia Last Interrogated: 11/05/22 @ [facility] Cardiology Claire Lopez NP Repair of inguinal hernia 2009 Stress test 2005, 2015 Tobacco Smoking/Tobacco Use Status: Former Tobacco Use Alcohol Alcohol Intake: never Substance Use Substance use: Never Substance use type: does not use Vital Signs and Lab Results Lab Results Blood Type / Crossmatch: No Data to Display Complete Blood Count: No Data to Display Complete Metabolic Panel: Sodium 137 mmol/L (136-145) 11/14/22 09:20 Potassium 4.4 mmol/L (3.5-5.1) 11/14/22 09:20 Chloride 104 mmol/L (98-107) 11/14/22 09:20 Carbon Dioxide 26.9 mmol/L (21.0-32.0) 11/14/22 09:20 BUN 18 mg/dL (7-18) 11/14/22 09:20 Creatinine 1.1 mg/dL (0.70-1.30) 11/14/22 09:20 Est GFR (CKD-EPI 2020) 68.29 (mL/min/1.73m2) 11/14/22 09:20 Calcium 9.1 mg/dL (8.5-10.1) 11/14/22 09:20 Glucose 125 mg/dL (74-106) H 11/14/22 09:20 Liver Function Panel: No Data to Display Coagulation Panel: No Data to Display Cardiac Panel: No Data to Display Arterial Blood Gas: No Data to Display Venous Blood Gas: No Data to Display Pancreas Panel: No Data to Display Thyroid Panel: No Data to Display Infectious Disease: No Data to Display Blood Cultures: No Data to Display Toxicology Panel: No Data to Display Anesthesia Assessment and Plan Anesthesia History Personal History: No History of Anesthesia Complications Family History: No Family History of Anesthesia Complications Exercise Tolerance Exercise Tolerance: Metabolic Equivalents>4 Pertinent Negatives Pertinent Negatives: No Symptoms of GERD Cardiac & Pulmonary Exam Cardiac Exam: Normal S1/S2 Heart Sounds Pulmonary Exam: Clear Bilateral Breath Sounds Implantable Cardiac Device Does patient have a Pacemaker or an ICD?: Yes Device Banking Pin Adjuster:: Twenty Jeans VVIR Reason for Placement:: Bradycardia Date of Last Device Interrogation:: 11/05/22 Airway Exam Known Difficult Airway: No Mallampati Class: 2 Mouth Opening: Normal (> 3cm) Thyromental Distance: Greater than 3 cm Neck Range of Motion: Full ROM Neck Circumference: Normal Teeth Condition: Normal Dentition ASA Classification ASA Score: ASA 2 Emergency Case?: No NPO Status NPO Status: NPO Clears >2 hours, Solids >8 hours Anesthesia Plan Resuscitation Status: Full Code Anesthesia Technique: General Anesthesia Airway Planned: Natural Airway Monitors Used: Standard Monitors
[2022-12-03] MEDS: Lactated Ringers 1,000 ML 80 ML IV (09:56)
--- NOTE | 2022-12-03 11:26 | STOM_PTH ---
PATIENT: Praneeth Villanueva LOC: [facility] U#:[id number] AGE/SX: 77/M ROOM: RE12/03/[address]: Swetha Tobin : 1945 BED: DIS: 12/03/2022 SPEC #: [id number] RECD: 12/03/22 12:56 STATUS: [facility] #: [id number] KIERRA: 12/03/22 11:[address]: Swetha Tobin DEPT: Surgical Specimen RECD BY: Mya Turpin ENTERED: 12/03/22 12:57 SP TYPE: STOMACH OTHR DR: Vianey Bocanegra Tissues: 1 - BIOPSY BOWEL 2 - BIOPSY BOWEL 3 - STOMACH BIOPSY 4 - STOMACH BIOPSY 5 - STOMACH BIOPSY 6 - ESOPHAGUS BIOPSY 7 - ESOPHAGUS BIOPSY 8 - BIOPSY BOWEL Procedures: GROSS AND MICRO LEVEL 4 Comments: [id number]
[2022-12-03 11:58] VITALS: BP 105/65; PULSE 60; RESP 16; TEMP 36.1; O2SAT 94
--- NOTE | 2022-12-03 12:14 | W.ANESPOSTOP ---
Postoperative Evaluation Date, Time and Location Date Performed: 12/03/22 Time Performed: 12:15 Patient Location: Day Surgery Unit Vital Signs Most Recent Imported Vital Signs: Most Recent Vital Signs Temp Pulse Resp BP Pulse Ox 36.1 C L 60 16 105/65 94 12/03/22 11:58 12/03/22 11:58 12/03/22 11:58 12/03/22 11:58 12/03/22 11:58 Pain Score Most Recent Pain Score: Most Recent Pain Score Pain Level 0 12/03/22 09:43 Assessment Mental Status: Awake (Alert & Oriented to Patient Baseline) Airway and Respiratory Function: Patent airway with normal (patient baseline) respiratory exam Cardiovascular Function: Hemodynamically Stable Hydration Status: Adequately Hydrated Nausea & Vomiting: No Nausea or Vomiting Pain: Pt. Denies Any Pain Peripheral Nerve Block: Patient did not receive a nerve block
[2022-12-03 12:35] VITALS: BP 152/73; PULSE 60; RESP 16; TEMP 36.2; O2SAT 97
== END 2022-12-03 13:10 | disposition home or self-care (01) ==
LOC: SUR 09:27
PROVIDERS: PCP Nurse Practitioner Family; Visit Provider Surgery
PROC: (CPT 45380; principal; 2022-12-03 10:30)
DX: Z12.11 Encounter for screening for malignant neoplasm of colon (principal); K63.5 Polyp of colon; K64.1 Second degree hemorrhoids; K22.70 Barrett's esophagus without dysplasia; D64.9 Anemia, unspecified; K31.7 Polyp of stomach and duodenum; K44.9 Diaphragmatic hernia without obstruction or gangrene; K31.89 Other diseases of stomach and duodenum
CPT/HCPCS: 45380; 43239; 88305; J2001

== ENCOUNTER 2023-01-16 04:23 | Outpatient (CLI) | payer MEDICARE, BC, SELFPAY ==
[2023-01-16 07:23] LABS: Abs Immature Grans 0.07 10^3/uL (0.0-0.06); Absolute Basophil Count 0.08 10^3/uL (0.0-0.2); Absolute Eosinophil Count 0.18 10^3/uL (0.0-0.7); Absolute Monocyte Count 0.68 10^3/uL (0.1-0.8); Absolute Neutrophil Count 9.07 10^3/uL (1.2-6.7); Basophils % 0.7; Eosinophils % 1.6; HCT 45.6 % (40.0-50.0); Immature Grans % 0.6; MCH 21.6 pg (27.0-33.0); MCHC 28.5 % (32.0-36.0); MCV 76 fL (80-95); Neutrophils % 80.1; Platelet Count 329 10^3/uL (130-400); RBC 6.03 10^6/uL (4.36-5.78); RDW 20.5 % (11.8-14.1); RDW-SD 53.1 fL; WBC 11.32 10^3/uL (4.4-10.8)
[2023-01-16 07:25] LABS: Absolute Lymphocyte Count 1.25 10^3/uL (1.2-3.4)
[2023-01-16 07:46] LABS: Anisocytosis 2+; Diff Comment RBC Morph Reviewed
[2023-01-16 09:09] LABS: ALT 16 U/L (16-63); AST 22 U/L (15-37); Albumin 4.1 g/dL (3.4-5.0); Alkaline Phosphatase 82 U/L (46-116); Anion Gap 8.8 mmol/L (3-11); BUN 21 mg/dL (7-18); Bilirubin, Total 0.6 mg/dL (0.2-1.0); CO2 27.2 mmol/L (21.0-32.0); CREATININE 1.3 mg/dL (0.70-1.30); Calcium 9.1 mg/dL (8.5-10.1); Chloride 104 mmol/L (98-107); Estimated GFR 55.88 (mL/min/1.73m2); Glucose 132 mg/dL (74-106); Potassium 4.6 mmol/L (3.5-5.1); Sodium 140 mmol/L (136-145); Total Protein 7.5 g/dL (6.4-8.2)
[2023-01-16 09:28] LABS: Vitamin D 25 Total 28.3 ng/mL (30-100)
== END 2023-01-16 04:24 | disposition home or self-care (01) ==
PROVIDERS: PCP Nurse Practitioner Family; Visit Provider Nurse Practitioner Family
DX: M85.88 Other specified disorders of bone density and structure, other site (principal); M19.90 Unspecified osteoarthritis, unspecified site; Z79.899 Other long term (current) drug therapy
CPT/HCPCS: 36415; 80053; 82306; 85025

== ENCOUNTER 2023-02-13 01:23 | Outpatient (RCR) | payer MEDICARE, BC, SELFPAY | END 2023-02-13 23:59 | disposition home or self-care (01) | LOC: INF 01:23 | PROVIDERS: PCP Nurse Practitioner Family; Visit Provider Student in an Organized Health Care Education/Training Program | DX: D45 Polycythemia vera (principal) | CPT/HCPCS: 99195 ==

== ENCOUNTER 2023-04-18 01:47 | Outpatient (CLI) | payer MEDICARE, BC, SELFPAY ==
[2023-04-18 07:17] LABS: HCT 44.4 % (40.0-50.0); HGB 12.3 g/dL (13.5-17.5); MCH 21.2 pg (27.0-33.0); MCHC 27.7 % (32.0-36.0); MCV 77 fL (80-95); Platelet Count 320 10^3/uL (130-400); RDW 19.9 % (11.8-14.1); RDW-SD 52.8 fL; WBC 11.12 10^3/uL (4.4-10.8)
[2023-04-18 07:34] LABS: Absolute Lymphocyte Count 2.56 10^3/uL (1.2-3.4); Atypical Lymphocytes % 4
[2023-04-18 07:35] LABS: Absolute Eosinophil Count 0.33 10^3/uL (0.0-0.7); Absolute Monocyte Count 0.33 10^3/uL (0.1-0.8); Diff Comment Manual Differential; Hypochromasia 2+
[2023-04-18 08:43] LABS: ALT 19 U/L (16-63); AST 16 U/L (15-37); Albumin 4.2 g/dL (3.4-5.0); Alkaline Phosphatase 81 U/L (46-116); Anion Gap 9.3 mmol/L (3-11); BUN 21 mg/dL (7-18); Bilirubin, Total 0.3 mg/dL (0.2-1.0); CO2 26.7 mmol/L (21.0-32.0); CREATININE 1.3 mg/dL (0.70-1.30); Calcium 9.4 mg/dL (8.5-10.1); Chloride 103 mmol/L (98-107); Estimated GFR 55.88 (mL/min/1.73m2); Glucose 137 mg/dL (74-106); Potassium 4.4 mmol/L (3.5-5.1); Sodium 139 mmol/L (136-145); Total Protein 7.7 g/dL (6.4-8.2)
[2023-04-18 09:02] LABS: Vitamin D 25 Total 32.7 ng/mL (30-100)
== END 2023-04-18 01:48 | disposition home or self-care (01) ==
PROVIDERS: Student in an Organized Health Care Education/Training Program; PCP Nurse Practitioner Family; Visit Provider Nurse Practitioner Family
DX: Z79.899 Other long term (current) drug therapy (principal); R71.8 Other abnormality of red blood cells
CPT/HCPCS: 36415; 80053; 82306; 85025

== ENCOUNTER → 2023-06-20 07:53 | Outpatient (BNVA) | payer MEDICARE, BC, SELFPAY | PROVIDERS: PCP Nurse Practitioner Family; Visit Provider Urology | DX: N40.1 Benign prostatic hyperplasia with lower urinary tract symptoms (principal); N13.8 Other obstructive and reflux uropathy; R35.1 Nocturia; R35.0 Frequency of micturition | CPT/HCPCS: 81003; 99214 ==

== ENCOUNTER 2023-08-01 02:11 | Outpatient (CLI) | payer MEDICARE, BC, SELFPAY ==
[2023-08-01 07:32] LABS: Abs Immature Grans 0.12 10^3/uL (0.0-0.06); Absolute Basophil Count 0.11 10^3/uL (0.0-0.2); Absolute Lymphocyte Count 1.73 10^3/uL (1.2-3.4); Absolute Monocyte Count 0.75 10^3/uL (0.1-0.8); Basophils % 0.9; Eosinophils % 1.6; HCT 45.5 % (40.0-50.0); HGB 12.7 g/dL (13.5-17.5); Lymphocytes % 14.1; MCH 21.1 pg (27.0-33.0); MCHC 27.9 % (32.0-36.0); MCV 76 fL (80-95); Monocytes % 6.1; Neutrophils % 76.3; Nucleated RBC 0.2 % (0.0-0.3); RBC 6.01 10^6/uL (4.36-5.78); RDW 19.8 % (11.8-14.1); RDW-SD 50.7 fL; WBC 12.24 10^3/uL (4.4-10.8)
[2023-08-01 07:36] LABS: Absolute Neutrophil Count 9.34 10^3/uL (1.2-6.7)
[2023-08-01 07:55] LABS: ALT 18 U/L (16-63); AST 18 U/L (15-37); Albumin 4.1 g/dL (3.4-5.0); Alkaline Phosphatase 87 U/L (46-116); Anion Gap 9.4 mmol/L (3-11); BUN 24 mg/dL (7-18); Bilirubin, Total 0.5 mg/dL (0.2-1.0); CO2 26.6 mmol/L (21.0-32.0); CREATININE 1.4 mg/dL (0.70-1.30); Chloride 103 mmol/L (98-107); Estimated GFR 51.13 (mL/min/1.73m2); Glucose 145 mg/dL (74-106); Potassium 4.1 mmol/L (3.5-5.1); Sodium 139 mmol/L (136-145); Total Protein 7.6 g/dL (6.4-8.2)
[2023-08-01 08:03] LABS: Diff Comment Diff Reviewed; Hypochromasia 2+; Platelet Count 348 10^3/uL (130-400); Polychromasia Present
[2023-08-01 08:04] LABS: Poikilocytes 2+
== END 2023-08-01 02:12 | disposition home or self-care (01) ==
PROVIDERS: PCP Nurse Practitioner Family; Visit Provider Nurse Practitioner Family
DX: Z79.899 Other long term (current) drug therapy (principal)
CPT/HCPCS: 36415; 80053; 85025

== ENCOUNTER 2023-10-10 01:07 | Outpatient (CLI) | payer MEDICARE, BC, SELFPAY ==
[2023-10-10 07:22] LABS: Abs Immature Grans 0.07 10^3/uL (0.0-0.06); Absolute Eosinophil Count 0.22 10^3/uL (0.0-0.7); Absolute Lymphocyte Count 1.64 10^3/uL (1.2-3.4); Absolute Monocyte Count 0.67 10^3/uL (0.1-0.8); Basophils % 0.9; HCT 44.5 % (40.0-50.0); HGB 12.7 g/dL (13.5-17.5); Immature Grans % 0.6; Lymphocytes % 14.7; MCH 21.7 pg (27.0-33.0); MCHC 28.5 % (32.0-36.0); MCV 76 fL (80-95); Neutrophils % 75.8; Platelet Count 316 10^3/uL (130-400); RBC 5.86 10^6/uL (4.36-5.78); RDW 20.2 % (11.8-14.1); RDW-SD 53.1 fL; WBC 11.18 10^3/uL (4.4-10.8)
[2023-10-10 07:26] LABS: Absolute Neutrophil Count 8.47 10^3/uL (1.2-6.7)
[2023-10-10 07:36] LABS: Diff Comment Diff Reviewed
[2023-10-10 07:37] LABS: Anisocytosis 2+; Hypochromasia 1+; Poikilocytes 1+
[2023-10-10 07:59] LABS: ALT 20 U/L (16-63); AST 14 U/L (15-37); Albumin 4.1 g/dL (3.4-5.0); Alkaline Phosphatase 83 U/L (46-116); Anion Gap 9.9 mmol/L (3-11); BUN 23 mg/dL (7-18); Bilirubin, Total 0.5 mg/dL (0.2-1.0); CO2 26.1 mmol/L (21.0-32.0); CREATININE 1.3 mg/dL (0.70-1.30); Calcium 9.2 mg/dL (8.5-10.1); Chloride 105 mmol/L (98-107); Estimated GFR 55.53 (mL/min/1.73m2); Glucose 148 mg/dL (74-106); Potassium 4.2 mmol/L (3.5-5.1); Sodium 141 mmol/L (136-145); Total Protein 7.4 g/dL (6.4-8.2)
== END 2023-10-10 01:08 | disposition home or self-care (01) ==
PROVIDERS: PCP Nurse Practitioner Family; Visit Provider Nurse Practitioner Family
DX: Z79.899 Other long term (current) drug therapy (principal)
CPT/HCPCS: 36415; 80053; 85025

== ENCOUNTER → 2023-10-27 01:19 | Outpatient (CLI) | payer MEDICARE, BC, SELFPAY ==
--- NOTE | 2023-10-27 07:00 | DI.CT_ITS ---
Exam(s) CT CHEST WO EXAM: CT CHEST WO CLINICAL HISTORY: f/u multiple pulmonary nodules,r91.8. TECHNIQUE: Imaging protocol: Axial computed tomography images were obtained and coronal and sagittal reformatted images were created and reviewed. COMPARISON: CT CT CHEST HIGH RESOLUTION from 02/16/[address] CHEST WO from 10/10/[address] CHEST WO from 10/31/2022 FINDINGS: Tracheobronchial tree: Patent where visualized. No evidence of bronchiectasis. Pulmonary parenchyma: No consolidation or dominant measurable mass. There is a stable 3 mm nodule in the lateral aspect of the left lower lobe (series 3, image 370). There is a stable 4 mm nodule in th e lateral aspect of the right lower lobe (series 3, image 395). There are calcified granuloma presen t. The nodule seen in the right upper lobe is now calcified. No new pulmonary nodules are present. Chronic scarring is seen in the lung bases. Mediastinum and Fabi: No dominant adenopathy or fluid collection. The esophagus is unremarkable.There is a small hiatal hernia. Thyroid gland: Unremarkable. Pleura: No effusion or pneumothorax. Heart: The heart is not dilated. Coronary artery calcifications and/or stents are present. No perica rdial effusion. Aorta: Thoracic aorta non-dilated. Atherosclerotic calcification is present. Upper abdomen: Status post cholecystectomy. Lymph nodes: Within normal limits. Tubes, Catheters, and Lines: A air sampling and monitoring is in place. Soft tissues: Bilateral gynecomastia. Bones:Within normal limits for the patient's age. IMPRESSION: 1. Stable pulmonary nodules. No new pulmonary nodules are seen. 2. No acute pulmonary process. RADIATION DOSE DELIVERED: 577mGy.cm Total DLP 577mGy.cm Total DLP DATA REPOSITORY: All CT scans at this facility are submitted to the National Radiology Data Registry (NRDR) Dose Index Registry (DIR) with the [employer] (ACR). RADIATION OPTIMIZATION: All CT scans at this facility use at least one of these dose optimization te chniques: automated exposure control; mA and/or kV adjustment per patient size (includes targeted exa ms where dose is matched to clinical indication); or iterative reconstruction.
== END ==
PROVIDERS: PCP Nurse Practitioner Family; Visit Provider Student in an Organized Health Care Education/Training Program
DX: R91.8 Other nonspecific abnormal finding of lung field (principal)
CPT/HCPCS: 71250

== ENCOUNTER → 2023-11-07 08:15 | Outpatient (BNVA) | payer MEDICARE, BC, SELFPAY | PROVIDERS: PCP Nurse Practitioner Family; Referring Provider Nurse Practitioner Family; Visit Provider Student in an Organized Health Care Education/Training Program | DX: R06.02 Shortness of breath (principal); T45.1X5A Adverse effect of antineoplastic and immunosuppressive drugs, initial encounter; R91.8 Other nonspecific abnormal finding of lung field; G47.33 Obstructive sleep apnea (adult) (pediatric) | CPT/HCPCS: 99214 ==

== ENCOUNTER 2024-01-09 01:45 | Outpatient (CLI) | payer MEDICARE, BC, SELFPAY ==
--- OUTSIDE RECORDS SUMMARY | 2024-01-09 01:47 | XMS_ITS | Encounter Summary ---
Author Organization [facility] Address [address] [place] [address] Care Team Providers Care Mailing Specialist Name Role Phone Layne Cai MD Primary Care Provider [phone] Claire Lopez INSPECTOR CRYSTAL Unavailable [phone] [facility] Tod Perez INSPECTOR CRYSTAL Unavailable [phone] Reason for Referral * Laboratory Services (Routine/Next Available) - New Request Specialty Diagnoses / Procedures Referred By Marissa carney Referred To Contact Diagnoses PV (polycythemia vera) ([facility]) Iron deficiency anemia due to chronic blood loss Procedures FERRITIN Erin Barillas MD [address] [address] Referral ID Status Reason Start Date Expiration Date V isits Requested Visits Authorized [id number] New Request 05/02/2023 7 7 * Laboratory Services (Routine/Next Available) - New Request Specialty Diagnoses / Procedures Referred By Marissa carney Referred To Contact Diagnoses PV (polycythemia vera) ([facility]) Iron deficiency anemia due to chronic blood loss Procedures COMPREHENSIVE METABOLIC PANEL (ONCOLOGY USE ONLY-INC MG) Erin Barillas MD [address] [address] Referral ID Status Reason Start Date Expiration Date V isits Requested Visits Authorized [id number] New Request 05/02/2023 7 7 * Laboratory Services (Routine/Next Available) - New Request Specialty Diagnoses / Procedures Referred By Contac t Referred To Contact Diagnoses PV (polycythemia vera) ([facility]) Iron deficiency anemia due to chronic blood loss Procedures COMPLETE BLOOD COUNT AND DIFFERENTIAL Erin Barillas MD [address] [place] [address] [address] [place] [address] Referral ID Status Reason Start Date Expiration Date V isits Requested Visits Authorized [id number] New Request 05/02/2023 7 7 Encounter Details Date Type Department Care Team (Late st Contact Info) Description 05/02/2023 Orders Only [facility] Hematology & Oncology - [address] [address] Libra Rich RN PV (polycythemia vera) ([facility]) (Primary Dx); Iron deficiency anemia due to chronic blood loss Social History Tobacco Use Types Packs/Day Years Used Date Smoking Tobacco: Former Cigarettes 3 20.2 1 961 - 09/15/1980 Cigars Passive Smoke Exposure: Never Smokeless Tobacco: Never Comments:Quit >30 years ago Alcohol Use Standard Drinks/Week Comments Yes 0 (1 standard drink = 0.6 oz pur e alcohol) Occasional beer Interpersonal Safety Answer Date Record ed Physically Hurt Never 01/16/2020 Verbally Threaten Not on file 01/16/2020 Sex and Gender Information Value Date Recorded Sex Assigned at Not on file Gender Identity Male 05/11/2019 13:17 EST Sexual Orientation Not on file documented as of this encounter Functional Status Functional Status Response Date of Assess ment Because of a physical, menta l, or emotional condition, does this person have difficulty doing errands alone such as visiting a doctor's office or shopping? No 10/24/2022 Cognitive Status Response Date of Assess ent Because of a physical, menta l, or emotional condition, does this person have serious difficulty concentrating, remembering, or making decisions? No 11/24/2017 documented as of this encounter Progress Notes * Libra Rich, RN - 05/02/2023 1534 EST External labs mailed to pt to have done in [place] documented in this encounter Plan of Treatment Upcoming Encounters Date Type Department Care Team (Late st Contact Info) Description 04/09/2024 16:30 EDT Office Visit [facility] Hematology & Oncology [address] [phone] Erin Barillas MD [address] [place] [address] [address] [place] [phone] 05/18/2024 10:00 EST Office Visit [facility] Rheumatology & Immunology [address] [phone] Tod Perez NP [address] [place] [address], [facility] [address] [place] [phone] 06/03/2024 9:00 EST Ancillary Procedure [facility] [address] [place] [phone] 06/03/2024 9:00 EST Office Visit [facility] [address] [place] [address] Claire Lopez NP [address] [place] [address] [place] [phone] Scheduled Orders Name Type Priority Associated Diagnoses Orde r Schedule COMPLETE BLOOD COUNT AND DIFFERENTIAL Lab Routine PV (polycythemia vera) ([facility]) Iron deficiency anemia due to chronic blood loss monthly for 7 Occurrences starting 05/02/2023 until 05/02/2024 COMPREHENSIVE METABOLIC PANEL (ONCOLOGY USE ONLY-INC MG) Lab Routine PV (polycythemia vera) ([facility]) Iron deficiency anemia due to chronic blood loss monthly for 7 Occurrences starting 05/02/2023 until 05/02/2024 FERRITIN Lab Routine PV (polycythemia vera) ([facility]) Iron deficiency anemia due to chronic blood loss monthly for 7 Occurrences starting 05/02/2023 until 05/02/2024 documented as of this encounter Visit Diagnoses Diagnosis PV (polycythemia vera) ([facility])- Primary Polycythemia vera Iron deficiency anemia due to chronic blood loss Iron deficiency anemia secondary to blood loss (chronic) documented in this encounter Care Teams Mailing Specialist Relationship Specialty Start Date End Date Layne Cai MD [address] [place] [address] PCP - General 04/05/20 12/16/23 Claire Lopez NP [address] [place] [address] [address] [place] [phone] Cardiovascular Disease 11/22/20 Tod Perez NP [address] [place] [address], [facility] [address] [place] [phone] Rheumatology 12/28/20 documented as of this encounter
--- OUTSIDE RECORDS SUMMARY | 2024-01-09 01:47 | XMS_ITS | Encounter Summary ---
Author Organization Health system Address [address] [place] [address] Care Team Providers Care Typewriter Assembler Name Role Phone Jessica Claire RN CARDIOLOGY Unavailable [phone] Tod Perez RN CARDIOLOGY Unavailable [phone] Vianey Bocanegra APRN Primary Care Provider [phone] Reason for Visit * Reason Onset Date Comments Appointment Related 12/17/2023 5 MO Follow Up Encounter Details Date Type Department Care Team (Late st Contact Info) Description 12/17/2023 Telephone [facility] Rheumatology & Immunology - [facility] [address] [place], [place] [phone] Tod Perez, RN CARDIOLOGY 111 [facility], [address] [place] [address] Appointment Related (5 MO Follow Up) Social History Tobacco Use Types Packs/Day Years [...] No 10/24/2022 Cognitive Status Response Date of Assessm ent Because of a physical, menta l, or emotional condition, does this person have serious difficulty concentrating, remembering, or making decisions? No 11/24/2017 documented as of this encounter Miscellaneous Notes * Telephone Encounter - Nikole Guan - 12/17/2023 0934 EDT Reason for Call: Appointment Related (5 MO Follow Up) Summary/Symptoms: Reason for call: Follow Up Appointment Left message to call back to schedule follow up appointment with Tod Perez Patient is due on or after 05.18.2024 First Call- Please schedule patient from the recall. Nikole Guan 12/17/2023 9:34 documented in this encounter Plan of Treatment Upcoming Encounters Date Type Department Care Team (Late st Contact Info) Description 04/09/2024 16:30 EDT Office Visit [facility] Hematology & Oncology - [address] [phone] Erin Barillas MD 111 [facility], [facility] [address] [place] [phone] 05/18/2024 10:00 EST Office Visit [facility] Rheumatology & Immunology - [address] [phone] Tod Perez NP 111 [facility], [facility] 5 [place] [phone] 06/03/2024 9:00 EST Ancillary Procedure [facility] [address] [place] [phone] 06/03/2024 9:00 EST Office Visit [facility] Cardiology Clinic [address] [place] [address] Claire Lopez NP [address] [place] [address] [address] [place] [address] documented as of this encounter Visit Diagnoses Not on filedocumented in this encounter Care Teams Typewriter Assembler Relationship Specialty Start Date End Date Vianey Bocanegra APRN 26 [facility] [address] [place] [phone] PCP - General 12/17/23 Claire Lopez NP [address] [place] [address] [address] Cardiovascular Disease 11/22/20 Tod Perez NP 111 [facility], [address] [place] [address] Rheumatology 12/28/20 documented as of this encounter
--- OUTSIDE RECORDS SUMMARY | 2024-01-09 01:47 | XMS_ITS | Encounter Summary ---
Author Organization [facility] Address [address] [place] [address] Care Team Providers Care Hobbing Press Operator Name Role Phone Layne Cai MD Primary Care Provider [phone] Claire Lopez AUTOMATIC SCREWMAKER Unavailable [phone] Tod Perez AUTOMATIC SCREWMAKER Unavailable [phone] Vianey Bocanegra APRN Primary Care Provider [phone] Reason for Visit * Reason Onset Date Comments Medications Refill 02/01/2023 Encounter Details Date Type Department Care Team (Late st Contact Info) Description 02/01/2023 Refill [facility] Hematology & Oncology - [address] [phone] Erin Barillas MD 111 [facility], [address] [place] [address] Medications Refill Social History Tobacco Use Types Packs/Day Years [...] No 11/24/2017 documented as of this encounter Ordered Prescriptions Prescription Sig Dispensed Refills Start Date End Da te hydroxyurea (HYDREA) 500 mg capsule Take 1 Capsule by mouth daily for 90 days. 90 Capsule 3 02/04/2023 05/05/2023 documented in this encounter Miscellaneous Notes * Telephone Encounter - Libra Rich RN - 02/04/2023 1009 EDT Last visit note: Continue Hydrea 500mg daily * Telephone Encounter - Libra Rich RN - 02/04/2023 1008 EDTFrom: Praneeth Villanueva To: Office of Erin Barillas MD Sent: 02/01/2023 22:48 EDT Subject: Medication Renewal Request Refills have been requested for the following medications: hydroxyurea (HYDREA) 500 mg capsule [Erin Barillas] Patient Comment: Can we go back to a 90 day supply please Preferred pharmacy: [phone] documented in this encounter Plan of Treatment Upcoming Encounters Date Type Department Care Team (Late st Contact Info) Description 04/09/2024 16:30 EDT Office Visit [facility] Hematology & Oncology - [address] [address] Erin Barillas MD [address] [place] [address] 2 [place] [phone] 05/18/2024 10:00 EST Office Visit [facility] Rheumatology & Immunology - [facility] [address] [place], [place] [phone] Tod Perez NP 111 [facility], [facility] [address] [place] [address] 06/03/2024 9:00 EST Ancillary Procedure [facility] Cardiology Clinic [address] [place] [address] 06/03/2024 9:00 EST Office Visit [facility] Cardiology Clinic [address] [place] [address] Claire Lopez NP [address] [phone] documented as of this encounter Visit Diagnoses Not on filedocumented in this encounter Discontinued Medications Medication Sig Discontinue Reason Start Date End Da te hydroxyurea (HYDREA) 500 mg capsule Take 1 Capsule by mouth daily. Reorder 10/02/2022 02/01/2023 documented as of this encounter Care Teams Hobbing Press Operator Relationship Specialty Start Date End Date Layne Cai MD [address] [place] [phone] PCP - General 04/05/20 12/16/23 Vianey Bocanegra APRN 26 [facility] [address] [place] [phone] PCP - General 12/17/23 Claire Lopez NP 130 [facility] [address] [phone] Cardiovascular Disease 11/22/20 Tod Perez NP [address] [place] [address], [facility] [address] [place] [phone] Rheumatology 12/28/20 documented as of this encounter
--- OUTSIDE RECORDS SUMMARY | 2024-01-09 01:47 | XMS_ITS | Encounter Summary ---
Author Organization [facility] Address [address] [place] [address] Care Team Providers Care Manager Bank Name Role Phone Layne Cai MD Primary Care Provider [phone] Claire Lopez GRAPHICS PRODUCTION SPECIALIST Unavailable [phone] Tod Perez GRAPHICS PRODUCTION SPECIALIST Unavailable [phone] Reason for Visit * Reason Comments Follow-up Encounter Details Date Type Department Care Team (Late st Contact Info) Description 10/13/2023 16:20 EDT Telemedicine [facility] Hematology & Oncology - [facility] [address], [place] [id number] Reshma Hilario, GRAPHICS PRODUCTION SPECIALIST [address] [facility], Level 2 [place] [address] PV (polycythemia vera) ([facility]) (Primary Dx) Social History Tobacco Use Types Packs/Day Years [...] as of this encounter Progress Notes * Reshma Hilario NP - 10/13/2023 1620 EDT DATE: 10/13/23 The concept of ???Telemedicine?? has been described to the patient. Patient has been informed of the anticipated benefits and possible risks. Patient understands the information provided regarding telemedicine, has had the opportunity to ask questions about this information, and all questions havebeen answered to patient???s satisfaction. Patient consents for [...] visit. The location of the patient : [place], [place] The location of the provider: [place], [place] The following staff and their role did participate in today's encounter visit: Reshma Hilario NP HEMATOLOGIC HISTORY: Mr. Villanueva is a 78 y.o. gentleman with past medical history of Hypertension, Hyperlipidemia, Arthritis (followed by Dr. Rosales), BPH, history of sinus bradycardia and Type 2 sinoatrial exit block, s/p pacemaker placement and varicose veins. 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 Labs showed BCR-ABL negative, Epo low, JAK2 positive. 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 He has not had a bone marrow biopsy and reports no historyof blood clots. He was initially started on hydroxyurea 500 mg po bid, but developed cytopenias. His dose was decreased to hydroxyurea 500 mg po daily. He receives intermittent phlebotomy. INTERVAL HISTORY: Praneeth returns for follow-up. His is with him on video. He reports that he is overall doing well. He celebrated his 78th birthday recently with his family. He reports some restless leg symptoms atnight and has been using gabapentin. His believes he had TP in April, but the last in the system is from January 2023. He continues to tolerate hydroxyurea well. No new health concerns at today 's visit. REVIEW OF SYSTEMS: The remainder of a 10-point review of systems, as filled out on the patient's symptom report form, is otherwise negative. SOCIAL HISTORY: Retired. Worked for the [employer]. Former smoker with 20 pack year smoking history, quit 40 years ago. 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 Family history: No family history of cancer, thrombosis or other blood disorders that patient is aware of. PHYSICAL EXAM: Vitals were not performed for this video visit. General: Well- appearing, in no acute distress. Alert and oriented to person, place, date and time. HEENT: Normocephalic. Resp: No distress noted, breathing comfortably on room air. LABS: Pending- these were drawn Friday at [facility]. However, his has the report and tells me his hematocrit is 44.5 via the portal. 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 Epo 1.6 (Low) ASSESSMENT: Praneeth Villanueva is a 78 y.o. male with a JAK2 positive myeloproliferative neoplasm, favor polycythemia vera (he has not had a bone marrow biopsy.) He was started on hydroxyurea 1,000 mg daily in November, but this was complicated by cytopenias. He is now on hydroxyurea 500 mg po daily which is well tolerated. He receives intermittent phlebotomy at [facility], most recently in January 2023. While I do not have labs to review personally at today's visit (they were drawn locally on Friday), his is able to report that his hematocrit is 44.5. We did not make any changes to his regimen today. He'll continue to have quarterly labs locally, and will follow-up with us in 6 months. PLAN: 1. Continue hydroxyurea 500 mg po daily. 2. Continue CBC and CMP every 3 months. We'll request a copy of his labs from Friday. 3. Continue aspirin 81 mg po daily for secondary prophylaxis. 4. Follow-up with Dr. Barillas in 6 months via televideo. Diana Hilario NP I spent a total of 30 minutes on the date of this encounter meeting with the patient and reviewing documentation/coordinating care as described in the above note. No procedures were performed at the time of the visit. documented in this encounter Plan of Treatment Upcoming Encounters Date Type Department Care Team (Late st Contact Info) Description 04/09/2024 16:30 EDT Office Visit [facility] Hematology & Oncology - [address] [phone] Erin Barillas MD [address] [place] [address] 2 [place] [phone] 05/18/2024 10:00 EST Office Visit [facility] Rheumatology & Immunology [address] [phone] Tod Perez NP [address] [place] [address], [facility] 5 [place] [phone] 06/03/2024 9:00 EST Ancillary Procedure [facility] Cardiology Clinic [address] [place] [phone] 06/03/2024 9:00 EST Office Visit [facility]iology Clinic [address] [place] [phone] Claire Lopez NP [address] [place] [address]-[address] [place] [address] [phone] documented as of this encounter Visit Diagnoses Diagnosis PV (polycythemia vera) ([facility])- Primary Polycythemia vera documented in this encounter Care Teams Manager Bank Relationship Specialty Start Date End Date Layne Cai MD [address] [place] [phone] PCP - General 04/05/20 12/16/23 Claire Lopez NP [address] [place] [address] 2[address] [place] [address] Cardiovascular Disease 11/22/20 Tod Perez NP [address] [facility], [address] [place] [address] Rheumatology 12/28/20 documented as of this encounter
--- OUTSIDE RECORDS SUMMARY | 2024-01-09 01:47 | XMS_ITS | Encounter Summary ---
Author Organization [facility] Address [address] [place] [address] Care Team Providers Care Mechanical Specialist Name Role Phone Layne Cai MD Primary Care Provider [phone] Claire Lopez DIESEL TRUCK DRIVER Unavailable [phone] Tod Perez DIESEL TRUCK DRIVER Unavailable [phone] Encounter Details Date Type Department Care Team (Late st Contact Info) Description 08/14/2023 Orders Only [facility] Cardiology Clinic [address] [place] [address] Ryann Venegas MA Sinus node dysfunction (HCC-CMS) (Primary Dx) Social History Tobacco Use Types [...] No 11/24/2017 documented as of this encounter Plan of Treatment Upcoming Encounters Date Type Department Care Team (Late st Contact Info) Description 04/09/2024 16:30 EDT Office Visit [facility] Hematology & Oncology [address] [phone] Erin Barillas MD [address] [place] [address] 2 [place] [phone] 05/18/2024 10:00 EST Office Visit [facility] Rheumatology & Immunology [address] 549051 Tod Perez NP [address] [place] [address], [facility] [address] [place] [phone] 06/03/2024 9:00 EST Ancillary Procedure [facility]iology Clinic [address] [place] [phone] 06/03/2024 9:00 EST Office Visit [facility] Clinic [address] [place] [address] [phone] Claire Lopez NP [address] [place] [address] MOB-A [address] [place] [phone] documented as of this encounter Procedures Procedure Name Priority Date/Time Associated Diagnosis Comments CARDIAC IMPLANT CHECK - REMOTE MONITOR Routine 08/14/2023 11:31 EST Sinus node dysfunction (HCC-CMS) documented in this encounter Results * CARDIAC IMPLANT CHECK - REMOTE - PACEMAKER (08/14/2023 11:31 EST) Anatomical Region Laterality Modality Device Narrative 08/14/2023 11:31 EST I have reviewed the pacemaker interrogation. ??I agree with the findings. See scanned document for details of remote download. Adrien Hackett NP Procedure Note Adrien Hackett NP - 08/14/2023 I have reviewed the pacemaker interrogation. I agree with the findings.See scanned document for details of remote download. Adrien Hackett NP Adrien Hackett NP CV IMPLANTABLE CARDI AC DEVICE documented in this encounter Visit Diagnoses Diagnosis Sinus node dysfunction (HCC-CMS)- Primary Sinoatrial node dysfunction documented in this encounter Care Teams Mechanical Specialist Relationship Specialty Start Date End Date Layne Cai MD [address] [place] [phone] PCP - General 04/05/20 12/16/23 Claire Lopez NP [address] [place] [address] 2[address] [place] [address] Cardiovascular Disease 11/22/20 Tod Perez NP [address] [place] [address], [facility] 5 [place] [phone] Rheumatology 12/28/20 documented as of this encounter
--- OUTSIDE RECORDS SUMMARY | 2024-01-09 01:47 | XMS_ITS | Encounter Summary ---
Author Organization [facility] Address [address] [place] [address] Care Team Providers Care Fish Pitcher Name Role Phone Layne Cai MD Primary Care Provider [phone] Claire Lopez NP Unavailable [phone] Tod Perez NP Unavailable [phone] Reason for Visit * (Routine) - Closed Specialty Diagnoses / Procedures Referred By Marissa carney Referred To Contact Diagnoses Pacemaker Procedures CARDIAC IMPLANT CHECK - IN CLINIC Claire Lopez NP [address] [facility] [address] [place] [address] Referral ID Status Reason Start Date Expiration Date Visits Re quested Visits Authorized [id number] Closed 05/11/2019 1 1 Encounter Details Date Type Department Care Team (Late st Contact Info) Description 05/13/2023 10:45 EST Ancillary Procedure [facility] [address] [place] [address] Social History Tobacco Use Types [...] Info) Description 04/09/2024 16:30 EDT Office Visit [facility] Hematology & Oncology [address] [phone] Erin Barillas MD [address] [place] [address] 2 [place] [phone] 05/18/2024 10:00 EST Office Visit [facility] Rheumatology & Immunology [address] [address]112[address] Tod Perez NP [address] [place] [address] 5 [place] [phone] 06/03/2024 9:00 EST Ancillary Procedure [facility] Cardiology Clinic [address] [place] [address] [phone] 06/03/2024 9:00 EST Office Visit [facility] Cardiology Clinic [address] [place] [address] [phone] Claire Lopez NP 130 [facility] MOB-A [address] [place] [phone] documented as of this encounter Procedures Procedure Name Priority Date/Time Associated Diagnosis Comments CARDIAC IMPLANT CHECK - IN CLINIC Routine 05/13/2023 11:02 EST Pacemaker documented in this encounter Results * CARDIAC IMPLANT CHECK - IN CLINIC - PACEMAKER SINGLE CHAMBER W/ PROG (05/13/2023 11:02 EST) Anatomical Region Laterality Modality Device Narrative 05/13/2023 11:02 EST Refer to same day OV for full details Procedure Note Claire Lopez NP - 05/13/2023 Refer to same day OV for full details Claire Lopez NP CV IMPLANTABLE CARDI AC DEVICE documented in this encounter Visit Diagnoses Not on filedocumented in this encounter Care Teams Fish Pitcher Relationship Specialty Start Date End Date Layne Cai MD [address] [place] [phone] PCP - General 04/05/20 12/16/23 Claire Lopez NP [address] [place] [address] 2[address] [place] [address] Cardiovascular Disease 11/22/20 Tod Perez NP [address] [place] [address], [address] [place] [phone] Rheumatology 12/28/20 documented as of this encounter
--- OUTSIDE RECORDS SUMMARY | 2024-01-09 01:47 | XMS_ITS | Encounter Summary ---
Author Organization [facility] Address [address] [place] [address] Care Team Providers Care Sales Floor Team Member Name Role Phone Layne Cai MD Primary Care Provider [phone] Claire Lopez QUALITY IMPROVEMENT SPECIALIST Unavailable [phone] Tod Perez NP Unavailable [phone] Reason for Visit * Reason Comments Pacemaker/Device Check Medtronic Encounter Details Date Type Department Care Team (Late st Contact Info) Description 12/04/2023 9:00 EDT Office Visit [facility] Cardiology Clinic [address] [place] [address] Claire Lopez NP [address] [facility] [address] [place] [address] Pacemaker (Primary Dx); Coronary artery disease involving port gamble coronary artery of port gamble heart without angina pectoris; Primary hypertension; Hypercholesteremia Social History Tobacco Use Types Packs/Day Years [...] Sign Reading Time Taken Comments Blood Pressure 116/70 12/04/2023 0853 EDT Pulse 67 12/04/2023 0853 EDT Temperature - - Respiratory Rate - - Oxygen Saturation 98% 12/04/2023 0853 EDT Inhaled Oxygen Concentration - - Weight 102.8 kg (226 lb 9.6 oz) 12/04/2023 0853 EDT Height 181 cm (5' 11.26) 12/04/2023 0853 EDT Body Mass Index 31.37 12/04/2023 0853 EDT documented in this encounter Functional Status [...] as of this encounter Progress Notes * Claire Lopez NP - 12/04/2023 0900 EDT CC: Pacemaker/Device Check (Medtronic) HPI: Praneeth is a pleasant 78 yo with multiple medical co-morbidities including inflammatory polyarthropathy, hx benign neoplasm of the colon, polycythemia vera, GERD, BPH, stage III CKD, HLD, NATALIE, HTN, sinus node dysfunction s/p single chamber pacemaker who returns to the office for follow-up. From a cardiac perspective Praneeth is feeling well. He is accompanied today by his , Augustina. Has no cardiac complaints or concerns to offer. Has been feeling significantly better since stopping methotrexate, which was being used to treat inflammatory arthritis but was the cause of her breathing trouble as wellas his polycythemia vera. PMH: Past Medical History: Diagnosis Date Arthritis Biliary colic Cataract bilateral Enlarged prostate GERD (gastroesophageal reflux disease) Heart imaging Left heart Cath 2011 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 Hypercholesteremia Hypertension Inguinal hernia bilateral Pacemaker Sleep apnea weaing cpap SH/FH: reviewed and updated MEDICATIONS: Medications Prior to Today's Visit Medication Sig aspirin 81 mg EC tablet Take 1 Tablet by mouth daily. ergocalciferol, vitamin D2, (VITAMIN D ORAL) Take 2,000 mg by mouth daily. finasteride (PROSCAR) 5 mg tablet Take 1 Tablet by mouth daily. gabapentin (NEURONTIN) 300 mg capsule Take 1 Capsule by mouth as needed. HYDROXYUREA, SICKLE CELL, ORAL Take 500 mg by mouth daily. melatonin 3 mg tablet Take 1 Tablet by mouth at bedtime. metoprolol XL (TOPROL-XL) 25 mg tablet Take 1 Tablet by mouth daily. metroNIDAZOLE (METROGEL) 0.75 % gel Apply topically as needed. omeprazole (PRILOSEC) 40 mg capsule Take 1 Capsule by mouth daily. simvastatin (ZOCOR) 40 mg tablet Take 1 Tablet by mouth every evening. sulfaSALAzine (AZULFIDINE) 500 mg tablet 1 tab twice daily No facility-administered medications prior to visit. ALLERGIES: Allergies Allergen Reactions Lisinopril Causes chest pain. ? 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 EOMI. Conjunctiva clear. Sclera anicteric NECK: Supple with full range of motion. No JVD/HJR CHEST: Normal shape and expansion HEART: Regular rate and rhythm no murmurs LUNGS: Clear to auscultation bilaterally, unlabored EXTREMITIES: No clubbing, cyanosis, or edema. PERIPHERAL PULSES: Lower extremity pulses 2+ bilaterally NEUROLOGIC EXAM: Alert and oriented x3. Gait normal [facility] Cardiology Device Visit Class C Truck Driver: Medtronic Device Type: Pacemaker Service: Office Visit Implant Date: 06/27/2020 Indication: Bradycardia Battery Longevity: 8 years Underlying rhythm: sinus arrest with rare ventricular escape Mode: VVIR URL/LRL: 130/60 bpm Ventricle Paced: 99.5% Lead Impedance, threshold, and sensing testing all within normal parameters. (See scanned documentation associated with this visit for full details) Impression: Device program evaluation with iterative adjustments were made to test device function and select optimal permanent program values with analysis, review, and report. The leads and device are functioning normally. The patient will follow up In office in 6 months. DATA: Lab Results Component Value Date HGB 12.6 (L) 10/24/2022 HCT 45.1 10/24/2022 PLT 298 10/24/2022 NTBNP 126 11/09/2020 CHOL 111 04/08/2012 HDL 22 04/08/2012 LDLBASE 66 04/08/2012 TRIG 117 04/08/2012 HGBA1C 6.0 04/08/2012 [facility] 11/2020 CORONARY ARTERIES: The coronary circulation is right dominant. Left main: Normal. LAD: Minor luminal irregularities. [...] evidence of ischemia or prior infarction. LVEF after stress 59%. ASSESSMENT: Problem List Items Addressed This Visit Cardiac/Vasculature Coronary artery disease involving port gamble coronary artery of port gamble heart without angina pectoris Non flow limiting disease observed on [facility] 11/2020 involving the LAD, D1, LCx and RCA. Currently without CP symptoms. Previously developed dizziness while on imdur therefore discontinued this medication. Pacemaker - Primary Device functioning normally with ample generator remaining. No arrhythmias. Refer to scanned documents for interrogation details. Hypertension Acceptable BP control on current regimen, no changes. Reinforced lifestyle modification through diet, limiting sodium intake, regular activity and maintaining a healthy weight. Hypercholesteremia Continue statin. Follow Up: 6 months I spent a total of 20 minutes on the date of this encounter which includes time with the patient, time reviewing medical records and laboratory results, time updating the chart information, and time composing this note. No procedures were performed at the time of the visit. Claire Lopez NP documented in this encounter Miscellaneous Notes * Assessment & Plan Note - Claire Lopez NP - 12/04/2023 0856 EDTAssociated Problem(s): Hypercholesteremia Continue statin. * Assessment & Plan Note - Claire Lopez NP - 12/04/2023 0856 EDTAssociated Problem(s): Hypertension Acceptable BP control on current regimen, no changes. Reinforced lifestyle modification through diet, limiting sodium intake, regular activity and maintaining a healthy weight. * Assessment & Plan Note - Claire Lopez NP - 12/04/2023 0855 EDTAssociated Problem(s): Coronary artery disease involving port gamble coronary artery of port gamble heart without angina pectoris Non flow limiting disease observed on [facility] 11/2020 involving the LAD, D1, LCx and RCA. Currently without CP symptoms. Previously developed dizziness while on imdur therefore discontinued this medication. * Assessment & Plan Note - Claire Lopez NP - 12/04/2023 0855 EDTAssociated Problem(s): Pacemaker Device functioning normally with ample generator remaining. No arrhythmias. Refer to scanned documents for interrogation details. documented in this encounter Plan of Treatment Upcoming Encounters Date Type Department Care Team (Late st Contact Info) Description 04/09/2024 16:30 EDT Office Visit [facility] Hematology & Oncology - [address] 070[address] Erin Barillas MD [address] [place] [address], [address] [place] [phone] 05/18/2024 10:00 EST Office Visit [facility] Rheumatology & Immunology - [address] [phone] Tod Perez NP [address] [place] [phone] 06/03/2024 9:00 EST Ancillary Procedure [facility] Cardiology Clinic [address] [place], [place] [phone] 06/03/2024 9:00 EST Office Visit [facility] Cardiology Clinic [address] [place] [address] Claire Lopez NP [address] [place] [phone] documented as of this encounter Visit Diagnoses Diagnosis Pacemaker- Primary Cardiac pacemaker in situ Coronary artery disease involving port gamble coronary artery of port gamble heart without angina pectoris Primary hypertension Unspecified essential hypertension Hypercholesteremia Pure hypercholesterolemia documented in this encounter Historical Medications * This list may reflect changes made after this encounter. Medication Sig Dispensed Refills Start Date End Date melatonin 3 mg tablet Take 10 mg by mouth at bedtime. gabapentin (NEURONTIN) 300 mg capsule Take 1 Capsule by mouth as needed. 11/17/2023 added in this encounter Care Teams Sales Floor Team Member Relationship Specialty Start Date End Date Layne Cai MD [address] [place] [phone] PCP - General 04/05/20 12/16/23 Claire Lopez NP [address] [place] [phone] Cardiovascular Disease 11/22/20 Tod Perez NP [address] [place] [phone] Rheumatology 12/28/20 documented as of this encounter
--- OUTSIDE RECORDS SUMMARY | 2024-01-09 01:47 | XMS_ITS | Encounter Summary ---
Author Organization [facility] Address [address] [place] [address] Care Team Providers Care Soda Fountain Manager Name Role Phone Layne Cai MD Primary Care Provider [phone] Claire Lopez NP Unavailable [phone] [facility] Tod Perez NP Unavailable [phone] Reason for Referral * Laboratory Services (Routine/Next Available) - New Request Specialty Diagnoses / Procedures Referred By Marissa carney Referred To Contact Diagnoses Inflammatory arthritis Encounter for long-term (current) use of medications Procedures COMPREHENSIVE METABOLIC PANEL (CMP) Tod Perez NP [address] [phone] Referral ID Status Reason Start Date Expiration Date V isits Requested Visits Authorized [id number] New Request 05/19/2023 1 1 * Laboratory Services (Routine/Next Available) - New Request Specialty Diagnoses / Procedures Referred By Marissa carney Referred To Contact Diagnoses Inflammatory arthritis Encounter for long-term (current) use of medications Procedures COMPLETE BLOOD COUNT AND DIFFERENTIAL Tod Perez NP [address] [phone] Referral ID Status Reason Start Date Expiration Date V isits Requested Visits Authorized [id number] New Request 05/19/2023 1 1 * Laboratory Services (Routine/Next Available) - New Request Specialty Diagnoses / Procedures Referred By Marissa carney Referred To Contact Diagnoses Inflammatory arthritis Encounter for long-term (current) use of medications Procedures COMPREHENSIVE METABOLIC PANEL (CMP) Tod Perez NP [address] [place] [phone] Referral ID Status Reason Start Date Expiration Date V isits Requested Visits Authorized [id number] New Request 05/19/2023 1 1 * Laboratory Services (Routine/Next Available) - New Request Specialty Diagnoses / Procedures Referred By Marissa carney Referred To Contact Diagnoses Inflammatory arthritis Encounter for long-term (current) use of medications Procedures COMPLETE BLOOD COUNT AND DIFFERENTIAL Tod Perez NP [address] [place] [phone] Referral ID Status Reason Start Date Expiration Date V isits Requested Visits Authorized [id number] New Request 05/19/2023 1 1 Reason for Visit * Reason Comments Follow-up Encounter Details Date Type Department Care Team (Late st Contact Info) Description 05/19/2023 13:30 EST Office Visit [facility] Rheumatology & Immunology - [address] [address] Tod Perez NP [address] [place], [place] [phone] Inflammatory arthritis (Primary Dx); Encounter for long-term (current) use of medications Social History Tobacco Use Types Packs/Day Years Used Date Smoking Tobacco: Former Cigarettes 3 20.2 1 961 - 09/15/1980 Cigars Passive Smoke Exposure: Never Smokeless Tobacco: Never Tobacco Cessation:Counseling Given: Not Answered Comments:Quit >30 years ago Alcohol Use Standard [...] Sign Reading Time Taken Comments Blood Pressure 142/66 05/19/2023 1321 EST Pulse 65 05/19/2023 1321 EST Temperature 36.7 ??C (98.1 ??F) 05/19/2023 1321 EST Respiratory Rate - - Oxygen Saturation - - Inhaled Oxygen Concentration - - Weight 103.9 kg (229 lb) 05/19/2023 1321 EST Height 181 cm (5' 11.26) 05/19/2023 1321 EST Body Mass Index 31.71 05/19/2023 1321 EST documented in this encounter Functional Status [...] No 11/24/2017 documented as of this encounter Patient Instructions * Patient Instructions* Tod Peerz NP - 05/19/2023 13:30 EST Continue current meds. Labs every 3-4 months If you get covid, stop sulfasalazine and call clinic for treatment Can discuss gabapentin dosing for restless leg with Dr. Calderon documented in this encounter Ordered Prescriptions Prescription Sig Dispensed Refills Start Date End Da te sulfaSALAzine (AZULFIDINE) 500 mg tabletIndications:Inflamma tory arthritis 1 tab twice daily 180 Tablet 3 05/19/2023 documented in this encounter Progress Notes * Tod Perez, LUMBER KILN OPERATOR - 05/19/2023 1330 EST Images from the original note were not included. Patient ID: Praneeth Villanueva is a 77 y.o. y.o. male Subjective: Chief Complaint: Follow-up HPI: ?? Pertinent Rheumatological History:?? 1. Seronegative inflammatory arthritis - On MTX 20 mg orally weekly with folic acid 1 mg orally daily - Will Reduce MTX to 17.5 mg orally weekly x 4 weeks then 15 mg orally weekly - Previously treated with hydroxychloroquine. ?? 2. Degenerative disc disease ?? 3. Rosacea - treated with Soolantra ?? 4. Polycythemia vera ?? Previously followed with [facility] Mcclendon history of seronegative inflammatory polyarthritis and degenerative disc disease who presents todayfor a follow-up visit. ? 04/03/2021 Alecia Saavedra at [facility] is concerned for MTX ILD/fibrosis. Reviewed that MTX resolved his hand swelling, but will try him on SSZ, alt arava. I would prefer toavoid biologics as he has been so MTX responsive. 03/27/21 ECHO EF 55-60%, aortic valve sclerotic with mild to moderate aortic regurgitation, mild mitral annual calcification, trace mitral regurgitation, trace triscupid regurgitation, IVC could not be assessed d/t poor imaging quality. All other structures normal. No specialty comments available. REVIEW OF SYSTEMS: Yes No Yes No Fever X Joint pain X Weight gain or loss pounds (lbs) Duration of AM joint stiffness none hours / min Eye pain or dryness X Numbness/tingling X Mouth or nose sores X Heart burn / Nausea X Chest pain X Diarrhea X Shortness of Breath x X Blood in stool X Cough x X Burning on urination X Skin rash X Hand/Foot color change in cold X Has f/u Dr. Calderon and CT chest October 2023 and plan for possible DC from pulmonary if doing well RSV, HD flu, shingles Declines covid Has been gabapentin 100mg at HS from Dr. Calderon for restless leg- states it helps and it doesn't sounds like he still gets some breakthrough Patient Active Problem List Diagnosis ??? Chest pain ??? Light headed ??? Sick sinus syndrome (HCC-CMS) ??? Pacemaker ??? Sleep apnea ??? Hypertension ??? GERD (gastroesophageal reflux disease) ??? Hypercholesteremia ??? Enlarged prostate ??? Left hand weakness ??? History of seronegative inflammatory arthritis ??? Facial rash ??? Exertional chest pain ??? Coronary artery disease involving [place] coronary artery of [place] heart without angina pectoris ??? PV (polycythemia vera) (HCC-CMS) Allergies Allergen Reactions ??? Lisinopril Causes chest pain. ? Myocardial bridging ??? 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 aspirin 81 mg EC tablet ??? ergocalciferol, vitamin D2, (VITAMIN D ORAL) ??? finasteride (PROSCAR) 5 mg tablet ??? HYDROXYUREA, SICKLE CELL, ORAL ??? metoprolol XL (TOPROL-XL) 25 mg tablet ??? metroNIDAZOLE (METROGEL) 0.75 % gel ??? omeprazole (PRILOSEC) 40 mg capsule ??? simvastatin (ZOCOR) 40 mg tablet ??? sulfaSALAzine (AZULFIDINE) 500 mg tablet No current facility-administered medications for this visit. Objective: BP (!) 142/66 (BP Cuff Location: Right arm, BP Patient Position: Sitting, BP Cuff Sizes: Adult, large) Pulse 65 Temp 36.7 ??C (98.1 ??F) Ht 181 cm (71.26) Wt (!) 103.9 kg (229 lb) BMI 31.71 kg/m?? PHYSICAL EXAM: General: No acute distress. Alert, fully oriented, pleasant, conversant. HEENT: Conjunctivae/corneas clear. Pupils equal, Sclerae anicteric. Left upper eye lid stye Mucus membranes moist; oropharynx clear. Neck supple, symmetrical, trachea midline maxillary sinus tender to palpation bilaterally Lungs: clear Heart: Regular rate and rhythm, S1, S2 present, no murmur Abdomen: Soft, non-tender, non-distended. Extremities: Extremities without cyanosis, 1 + edema bilateral legs Skin: clear Musculoskeletal: [...] or warmth is present. Appropriate range of motionpresent. Ankle/Foot: no, hard to palpate 2-5 MTP but I think this is due to edema some OA, with cock ups, no significant tenderness, swelling, effusions, erythema or warmth is present. Appropriate range ofmotion present. ?? LABS: Lab Results Component Value Date WBC 10.79 (H) 10/24/2022 HGB 12.6 (L) 10/24/2022 HCT 45.1 10/24/2022 MCV 77 (L) 10/24/2022 PLT 298 10/24/2022 Lab Results Component Value Date BUN 16 10/24/2022 CREATININE 1.15 10/24/2022 AST 22 10/24/2022 ALT 15 10/24/2022 Lab Results Component Value Date SEDRATE 5 05/10/2014 CRP 2.9 (H) 05/10/2014 Lab Results Component Value Date RF <8.6 01/30/2021 AMOL Positive (A) 01/30/2021 DSDNA <12.3 01/30/2021 C3 135 05/10/2014 C4 27 05/10/2014 No components found for: UPROT U/A: Lab Results Component Value Date CLARITYU Clear 05/10/2014 LABSPEC 1.025 05/10/2014 PHUR 5.5 05/10/2014 GLUCOSEU Neg 05/10/2014 BILIRUBINUR Neg 05/10/2014 KETONES Neg 05/10/2014 BLOODU 2+ (A) 05/10/2014 PROTEINUA Neg 05/10/2014 Lipid Profile: Lab Results Component Value Date CHOL 111 04/08/2012 TRIG 117 04/08/2012 HDL 22 04/08/2012 LDLBASE 66 04/08/2012 CHOLHDL 5.0 04/08/2012 RAPID3 Summary Functional Status: (P) 0 Pain Tolerance: (P) 0 - No Pain Global Estimate: (P) 0 - Very Well Score: (P) 0 Interpretation: (P) Near Remission ASSESSMENT/PLAN: Encounter Diagnoses Name Primary? Inflammatory arthritis Yes ??? Encounter for long-term (current) use of medications 1.Inflammator arthritis doing well, no flares on SZZ 500mg BID started around 02/2021. Continue current meds. ? 2. 03/27/21 ECHO EF 55-60%, aortic valve sclerotic with mild to moderate aortic regurgitation, mildmitral annual calcification, trace mitral regurgitation, trace triscupid regurgitation, IVC could not be assessed d/t poor imaging quality. All other structures normal. ? 3. Previously Dr. Alecia Calderon, at [facility] was concerned for MTX ILD/fibrosis. MTX d/'c'd forthis reason. At last visit Pt's states SOB has resolved, and CT findings had improved. Sleep apnea resolved on recent sleep study. F/u CT and PFTs 1 year- if good, Pulm might D/c PT in 2023. 05/19/23 ROS for some SOB with exertion ?? 3. Labs every 3-4 months Given ext labs for [place] and for [facility] ?? 4. Polycythemia vera -followed by Dr. Barillas Hematology/Oncology On hydrea and aspirin 81mg. Not needing phlebotomy at this time as CBC and abs neutrophils normalized 03/14/23 doing well. ? 5. moderna #1 and #2 and #3 ?? 6. HD flu 2020 complete ?? 7. DXA at [facility]- osteopenia- neg for spinal fx. Reviewed calcium and vit D recommendations. ? 9 dependent edema 1+ has been taking a break from his compression stockings- 2/2 increased restlessleg - drinking pick juice per his PCP for restless leg, feels like it has helped some ?? covid 05/16/22 did not stop SSZ , had -10lb wt loss, loss taste and smell, arthralgias, diarrha - treated with molpinivir, -still has a lingering cough. Pt does not think he will get 2022 covid vaccine. Patient Instructions 1. Continue current meds. 2. Labs every 3-4 months 3. If you get covid, stop sulfasalazine and call clinic for treatment 4. Can discuss gabapentin dosing for restless leg with Dr. Calderon Return in about 6 months (around 11/18/2023) for in person, f/u with me. Patient verbalizes understanding and agrees with plan Yes I was directly supervised by: Dr. Morocho. They were present in clinic and available for consult if needed. I spent a total of 25 minutes on the date of this encounter meeting with the patient and reviewing documentation/coordinating care as described in the above note. No procedures were performed at the time of the visit. Tod Perez NP 05/19/2023 documented in this encounter Plan of Treatment Upcoming Encounters Date Type Department Care Team (Late st Contact Info) Description 04/09/2024 16:30 EDT Office Visit [facility] Hematology & Oncology [address] [phone] Erin Barillas MD [address] [place] [address] 2 [place] [phone] 05/18/2024 10:00 EST Office Visit [facility] Rheumatology & Immunology [address] [phone] Tod Perez NP [address] [place] [address] 5 [place] [phone] 06/03/2024 9:00 EST Ancillary Procedure [facility] Cardiology Clinic [address] [place] [phone] 06/03/2024 9:00 EST Office Visit [facility] Cardiology Clinic [address] [place] [phone] Claire Lopez NP [address] [place] [address] [place] [address] Scheduled Orders Name Type Priority Associated Diagnoses Orde r Schedule COMPLETE BLOOD COUNT AND DIFFERENTIAL Lab Routine Inflammatory arthritis Encounter for long-term (current) use of medications Every 12-Weeks for 4 Occurrences starting 05/19/2023 until 05/19/2024 COMPREHENSIVE METABOLIC PANEL (CMP) Lab Routine Inflammatory arthritis Encounter for long-term (current) use of medications Every 12-Weeks for 4 Occurrences starting 05/19/2023 until 05/19/2024 COMPLETE BLOOD COUNT AND DIFFERENTIAL Lab Routine Inflammatory arthritis Encounter for long-term (current) use of medications Every 12-Weeks for 4 Occurrences starting 05/19/2023 until 05/19/2024 COMPREHENSIVE METABOLIC PANEL (CMP) Lab Routine Inflammatory arthritis Encounter for long-term (current) use of medications Every 12-Weeks for 4 Occurrences starting 05/19/2023 until 05/19/2024 documented as of this encounter Visit Diagnoses Diagnosis Inflammatory arthritis- Primary Unspecified inflammatory polyarthropathy Encounter for long-term (current) use of medications Encounter for long-term (current) use of other medications documented in this encounter Discontinued Medications Medication Sig Discontinue Reason Start Date End Da te sulfaSALAzine (AZULFIDINE) 500 mg tabletIndications:Inflamma tory arthritis 1 tab twice daily Reorder 06/29/2022 05/19/2023 documented as of this encounter Historical Medications * This list may reflect changes made after this encounter. Medication Sig Dispensed Refills Start Date End Date finasteride (PROSCAR) 5 mg tablet Take 1 Tablet by mouth daily. 03/13/2023 added in this encounter Care Teams Soda Fountain Manager Relationship Specialty Start Date End Date Layne Cai MD [address] [place] [address] PCP - General 04/05/20 12/16/23 Claire Lopez NP [address] [place] [address] [address] [place] [phone] Cardiovascular Disease 11/22/20 Tod Perez NP [address] [place] [address], [facility] [address] [place] [address] Rheumatology 12/28/20 documented as of this encounter
--- OUTSIDE RECORDS SUMMARY | 2024-01-09 01:47 | XMS_ITS | Encounter Summary ---
Author Organization [facility] Address [address] [place] [address] Care Team Providers Care Air Sampler Name Role Phone Layne Cai MD Primary Care Provider [phone] Claire Lopez NP Unavailable Tod Perez NP Unavailable [phone] Reason for Visit * (Routine) - Closed Specialty Diagnoses / Procedures Referred By Marissa carney Referred To Contact Diagnoses Pacemaker Procedures CARDIAC IMPLANT CHECK - IN CLINIC Claire Lopez NP [address] [facility] [address] [place] [address] Referral ID Status Reason Start Date Expiration Date Visits Re quested Visits Authorized [id number] Closed 05/11/2019 1 1 Encounter Details Date Type Department Care Team (Late st Contact Info) Description 11/05/2022 10:45 EDT Ancillary Procedure [facility] [address] [place] [address] Pacemaker Social History Tobacco Use Types Packs/Day Years [...] Info) Description 04/09/2024 16:30 EDT Office Visit [facility] Hematology & Oncology [address] [phone] Erin Barillas MD [address] [place] [address] 2 [place] [phone] 05/18/2024 10:00 EST Office Visit [facility] Rheumatology & Immunology [address] [phone] Tod Perez NP [address] [place] [address] 5 [place] [phone] 06/03/2024 9:00 EST Ancillary Procedure [facility] Cardiology Clinic [address] [place] [phone] 06/03/2024 9:00 EST Office Visit [facility] Cardiology Clinic [address] [place] [phone] Claire Lopez NP [address] [place] [address] [address] [place] [phone] documented as of this encounter Procedures Procedure Name Priority Date/Time Associated Diagnosis Comments CARDIAC IMPLANT CHECK - IN CLINIC Routine 11/05/2022 10:56 EDT Pacemaker documented in this encounter Results * CARDIAC IMPLANT CHECK - IN CLINIC - PACEMAKER SINGLE CHAMBER W/ PROG (11/05/2022 10:56 EDT) Anatomical Region Laterality Modality Device Narrative 11/05/2022 10:56 EDT Refer to same day OV for full details Procedure Note Claire Lopez NP - 11/05/2022 Refer to same day OV for full details Claire Lopez NP CV IMPLANTABLE CARDI AC DEVICE documented in this encounter Visit Diagnoses Diagnosis Pacemaker Cardiac pacemaker in situ documented in this encounter Care Teams Air Sampler Relationship Specialty Start Date End Date Layne Cai MD [address] [place] [phone] PCP - General 04/05/20 12/16/23 Claire Lopez NP [address] [place] [address] [address] [place] [address] Cardiovascular Disease 11/22/20 Tod Perez NP [address] [facility] [place] [phone] Rheumatology 12/28/20 documented as of this encounter
--- OUTSIDE RECORDS SUMMARY | 2024-01-09 01:47 | XMS_ITS | Encounter Summary ---
Author Organization [facility] Address [address] [place] [address] Care Team Providers Care Anchor Tacker Name Role Phone Layne Cai MD Primary Care Provider [phone] Claire Lopez RN PALLIATIVE Unavailable [phone] Tod Perez NP Unavailable [phone] Reason for Visit * Reason Comments Follow-up Pacemaker/Device Check Encounter Details Date Type Department Care Team (Late st Contact Info) Description 11/05/2022 10:45 EDT Office Visit [facility] [address] [place] [address] Claire Lopez NP 130 [facility] [address] [place] [address] Pacemaker (Primary Dx); 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; Primary hypertension; Hypercholesteremia [...] Sign Reading Time Taken Comments Blood Pressure 144/70 11/05/2022 1032 EDT Pulse 72 11/05/2022 1032 EDT Temperature - - Respiratory Rate - - Oxygen Saturation 98% 11/05/2022 1032 EDT Inhaled Oxygen Concentration - - Weight 99.8 kg (220 lb) 11/05/2022 1032 EDT Height - - Body Mass Index 30.29 10/24/2022 1310 EDT documented in this encounter Functional Status [...] Progress Notes * Claire Lopez NP - 11/05/2022 1045 EDT Cardiology Clinic Note 11/05/22 10:33 Presenting complaint: Follow-up and Pacemaker/Device Check HPI Praneeth is a pleasant 77 yo with multiple medical co-morbidities including inflammatory polyarthropathy, hx benign neoplasm of the colon, polycythemia vera, GERD, BPH, stage III CKD, HLD, NATALIE, HTN, sinus node dysfunction s/p single chamber pacemaker who returns to the office for follow-up. From a cardiac perspective Praneeth is feeling well. He is accompanied today by his , Augustina. Systems review A 10 point review of [...] chest pain ??? 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 PV (polycythemia vera) ([facility]) Past Surgical History: Procedure Laterality Date ??? CARDIAC PACEMAKER PLACEMENT ??? CATARACT REMOVAL bilateral ??? CHOLECYSTECTOMY 2004 ??? EYE SURGERY ??? HERNIA REPAIR Medications Current Outpatient Medications on File Prior to Visit Medication Sig Dispense Refill ??? aspirin 81 mg EC tablet Take 81 mg by mouth daily. ??? hydroxyurea (HYDREA) 500 mg capsule Take 1 Capsule by mouth daily. 30 Capsule 2 ??? metoprolol XL (TOPROL-XL) 25 mg tablet Take 25 mg by mouth daily. ??? metroNIDAZOLE (METROGEL) 0.75 % gel Apply topically as needed. ??? omeprazole (PRILOSEC) 40 mg capsule Take 40 mg by mouth daily. ??? simvastatin (ZOCOR) 40 mg tablet Take 40 mg by mouth every evening. ??? sulfaSALAzine (AZULFIDINE) 500 mg tablet 1 tab twice daily (Patient taking differently: Take 500 mg by mouth 2 times daily. 1 tab twice daily) 180 Tablet 3 No current facility-administered medications [...] file Tobacco Use ??? Smoking status: Former Packs/day: 3.00 Years: 20.00 Pack years: 60.00 Types: Cigarettes, Cigars Start date: 1962 Quit date: 09/15/1980 Years since quittin.1 Passive exposure: Never ??? Smokeless tobacco: Never ??? Tobacco comments: Quit >30 years ago Vaping Use ??? Vaping Use: Never used ??? Passive vaping exposure: Yes Substance and Sexual Activity ??? Alcohol use: Yes Comment: Occasional beer ??? Drug use: No ??? Sexual activity: Not on file Other Topics Concern ??? 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 General - A/Ox3, no acute distress [...] intact Peripheral neurology - no focal deficits [facility] Cardiology Device Visit Certified Legal Investigator: [employer] Device Type: Pacemaker Service: Office Visit Implant Date: 06/27/2020 Indication: Bradycardia Battery Longevity: 8.8 years Underlying rhythm: sinus arrest with rare ventricular escape Mode: VVIR URL/LRL: 130/60 bpm Ventricle Paced: 96.2% Lead Impedance, threshold, and sensing testing all [...] LABS Lab Results Component Value Date WBC 10.79 (H) 10/24/2022 HGB 12.6 (L) 10/24/2022 HCT 45.1 10/24/2022 MCV 77 (L) 10/24/2022 PLT 298 10/24/2022 Lab Results Component Value Date CREATININE 1.15 10/24/2022 CREATININEEX 1.4 (H) 05/23/2022 Lab Results Component Value Date NA 141 10/24/2022 K 4.6 10/24/2022 KEXT 4.3 05/23/2022 CL 103 10/24/2022 CLEXT 102 05/23/2022 CO2 27 10/24/2022 CO2EXT 30.4 05/23/2022 Lab Results Component Value Date TSH 0.38 09/15/2013 Lab Results Component Value Date HGBA1C 6.0 04/08/2012 Lab Results Component Value Date CHOL 111 04/08/2012 HDL 22 04/08/2012 LDLBASE 66 04/08/2012 TRIG 117 04/08/2012 CHOLHDL 5.0 04/08/2012 Diagnostics [facility] 11/2020 CORONARY ARTERIES: The coronary circulation [...] or prior infarction. LVEF after stress 59%. 1. Pacemaker Device functioning normally with ample generator remaining. No arrhythmias. Refer to scanned documents for interrogation details. ?? 2. CAD Non flow limiting disease observed on [facility] 11/2020 involving the LAD, D1, LCx and RCA. Currently without CP symptoms. Previously developed dizziness while on imdur therefore discontinued this medication. ?? 3. Essential hypertension Good BP control on current regimen according to home BP readings, no changes. Recommended routine monitoring of home BP and to notify the office via phone or mychart if readings are consistently >140/90. Reinforced lifestyle modification through diet, limiting sodium intake, regular activity and maintaining a healthy weight. ?? 4. Hypercholesteremia Continue statin. Lifestyle as above Claire Lopez NP [facility] Cardiology documented in this encounter Plan of Treatment Upcoming Encounters Date Type Department Care Team (Late st Contact Info) Description 04/09/2024 16:30 EDT Office Visit [facility] Hematology & Oncology - [address] 740[address] Erin Barillas MD [address] [place] [address], [facility], [address] [place] [phone] 05/18/2024 10:00 EST Office Visit [facility] Rheumatology & Immunology - [address] [phone] Tod Perez NP [address] [place] [phone] 06/03/2024 9:00 EST Ancillary Procedure [facility] [address] [place] [address] [phone] 06/03/2024 9:00 EST Office Visit [facility] [address] [place] [address] Claire Lopez NP [address] [place] [phone] documented as of this encounter Visit Diagnoses Diagnosis Pacemaker- Primary Cardiac pacemaker in situ 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 Primary hypertension Unspecified essential hypertension Hypercholesteremia Pure hypercholesterolemia documented in this encounter Care Teams Anchor Tacker Relationship Specialty Start Date End Date Layne Cai MD [address] [place] [phone] PCP - General 04/05/20 12/16/23 Claire Lopez NP [address] [place] [address] Cardiovascular Disease 11/22/20 Tod Perez NP [address] [place] [phone] Rheumatology 12/28/20 documented as of this encounter
--- OUTSIDE RECORDS SUMMARY | 2024-01-09 01:47 | XMS_ITS | Clinical Summary ---
Author Organization [facility] Address [address] [place] [address] Care Team Providers Care Electron Beam Welder Setter Name Role Phone JessicaClaire campoverde ELECTRONIC EQUIPMENT REPAIRMEN Unavailable Tod Perez ELECTRONIC EQUIPMENT REPAIRMEN Unavailable [phone] Vianey Bocanegra APRN Primary Care Provider [phone] Allergies Active Allergy Reactions Criticality Noted Date Comments Lisinopril 09/15/2013 Causes chest pain. ? Myocardial bridging Methotrexate 05/31/2021 Methotrexate lung fibrosis dx per pulmonary 04/02/21 Medications Medication Sig Dispensed Refills Start Date End Date Status omeprazole (PRILOSEC) 40 mg capsule Take 1 Capsule by mouth daily. 04/28/2019 Active metoprolol XL (TOPROL-XL) 25 mg tablet Take 1 Tablet by mouth daily. 10/20/2019 Active aspirin 81 mg EC tablet Take 1 Tablet by mouth daily. Active simvastatin (ZOCOR) 40 mg tablet Take 1 Tablet by mouth every evening. Active metroNIDAZOLE (METROGEL) 0.75 % gel Apply topically as needed. 10/05/2021 Active ergocalciferol, vitamin D2, (VITAMIN D ORAL) Take 2,000 mg by mouth daily. Active HYDROXYUREA, SICKLE CELL, ORAL Take 500 mg by mouth daily. Active finasteride (PROSCAR) 5 mg tablet Take 1 Tablet by mouth daily. 03/13/2023 Active sulfaSALAzine (AZULFIDINE) 500 mg tabletIndications:I nflammatory arthritis 1 tab twice daily 180 Tablet 3 05/19/2023 Active gabapentin (NEURONTIN) 300 mg capsule Take 1 Capsule by mouth as needed. 11/17/2023 Active melatonin 3 mg tablet Take 10 mg by mouth at bedtime. Active Active Problems Patient Care Coordination No te Formatting of this note migh t be different from the original. 2021-10-17 [facility] MGP Verbal DEIDRE: permission to speak with Augustina Villanueva (,) Rebeka Villanueva (daughter.) Problem Noted Date Diagnosed Date PV (polycythemia vera) ([facility]) 05/02/2021 Coronary artery disease invo lving keweenaw coronary artery of keween[place] heart without angina pectoris 03/02/2021 Last Assessment & Plan: Non flow limiting disease observed on [facility] 11/2020 involving the LAD, D1, LCx and RCA. Currently without CP symptoms. Previously developed dizziness while on imdur therefore discontinued this medication. Exertional chest pain 11/15/2020 Overview: Added automatically from request for surgery [id number] History of seronegative inflammatory arthritis 0 09/24/2016 Facial rash 09/24/2016 Left hand weakness 09/15/2013 Overview: Currently being worked up Light headed 04/09/2012 Sick sinus syndrome ([facility]) 04/09/2012 Chest pain 04/07/2012 Overview: Resolved. Cardiac cath showing bridging and mild luminal irregularities in '12 Pacemaker Last Assessment & Plan: Device functioning normally with ample generator remaining. No arrhythmias. Refer to scanned documents for interrogation details. Sleep apnea Overview: weaing cpap Hypertension Last Assessment & Plan: Acceptable BP control on current regimen, no changes. Reinforced lifestyle modification through diet, limiting sodium intake, regular activity and maintaining a healthy weight. GERD (gastroesophageal reflux disease) Hypercholesteremia Last Assessment & Plan: Continue statin. Enlarged prostate Encounters Date Type Department Care Team Description 12/17/2023 8:30 EDT Telemedicine [facility] Rheumatology & Immunology [address] [phone] Tod Perez NP Inflammatory arthritis (Primary Dx); Encounter for long-term (current) use of medications; Osteopenia, unspecified location 12/17/2023 Telephone [facility] Rheumatology & Immunology [address] [phone] Tod Perez NP Appointment Related (5 MO Follow Up) 12/15/2023 Telephone [facility] Rheumatology & Immunology [address] [phone] Stephanie Mercado MA Appointment Related 12/04/2023 9:00 EDT Ancillary Procedure [facility] [address] [place] [address] Pacemaker 12/04/2023 9:00 EDT Office Visit [facility] [address] [place] [address] Claire Lopez NP Pacemaker (Primary Dx); Coronary artery disease involving keweenaw coronary artery of keweenaw heart without angina pectoris; Primary hypertension; Hypercholesteremia 11/14/2023 Telephone [facility] Rheumatology & Immunology [address] [phone] Tod Perez NP Appointment Related 10/13/2023 16:20 EDT Telemedicine [facility] [place] Hematology & Oncology [address] [phone] Reshma Hilario NP PV (polycythemia vera) ([facility]) (Primary Dx) from Last 3 Months Immunizations Name Administration Dates Next Due Covid-19 mRNA Vaccine (MODER NA COVID-19) PF 0.5 ml IM (12 yrs+) 04/03/2021,08/11/2020,07/13/2020 Historical Influenza Vaccine, Unspecified 2018 Influenza Vaccine =>3yo Spli t Preservative Free IM 04/08/2012 Influenza Vaccine High Dose (FLUZONE HIGH DOSE) PF 0.7 ml IM (65 yrs+) 03/08/2021,04/29/2020,05/20/2019 Pneumococcal Conjugate Vacci ne 13-Valent (PCV13) (PREVNAR-13) 0.5 mL IM (6 wks+) 12/28/2014 Pneumococcal Polysaccharide (PPSV23) Vaccine (PNEUMOVAX-23) =>2YO SQ/IM 12/05/2008 Surgical History Surgery Date Site/Laterality Comments CHOLECYSTECTOMY 2005 CATARACT REMOVAL bilateral HERNIA REPAIR EYE SURGERY CARDIAC PACEMAKER PLACEMENT Medical History Medical History Date Comments GERD (gastroesophageal reflux disease) Cataract bilateral Biliary colic Hypercholesteremia Enlarged prostate Inguinal hernia bilateral Hypertension Sleep apnea weaing cpap Pacemaker Heart imaging Left heart Cath 2011 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 Arthritis Family History Medical History Relation Comments Diabetes Brother Diabetes Father Stroke Father Arthritis Mother unkown type Relation Status Comments Brother Father Mother Social History Tobacco Use Types Packs/Day Years Used Date Smoking Tobacco: Former Cigarettes 3 20.2 1 961 - 09/15/1980 Cigars Passive Smoke Exposure: Never Smokeless Tobacco: Never Tobacco Cessation:Counseling Given: Yes Comments:Quit >30 years ago Alcohol Use Standard Drinks/Week Comments Yes 0 (1 standard drink = 0.6 oz pur e alcohol) Occasional beer Interpersonal Safety Answer Date Record ed Physically Hurt Never 01/16/2020 Verbally Threaten Not on file 01/16/2020 Sex and Gender Information Value Date Recorded Sex Assigned at Not on file Gender Identity Male 05/11/2019 13:17 EST Sexual Orientation Not on file Obstetrics History Last Filed Vital Signs Vital Sign Reading Time Taken Comments Blood Pressure 116/70 12/04/2023 0853 EDT Pulse 67 12/04/2023 0853 EDT Temperature 36.7 ??C (98.1 ??F) 05/19/2023 1321 EST Respiratory Rate 16 03/14/2023 1415 EDT Oxygen Saturation 98% 12/04/2023 0853 EDT Inhaled Oxygen Concentration - - Weight 102.8 kg (226 lb 9.6 oz) 12/04/2023 0853 EDT Height 181 cm (5' 11.26) 12/04/2023 0853 EDT Body Mass Index 31.37 12/04/2023 0853 EDT Plan of Treatment Upcoming Encounters Date Type Department Care Team (Late st Contact Info) Description 04/09/2024 16:30 EDT Office Visit [facility] Hematology & Oncology - [address] [phone] Erin Barillas MD 111 [facility], [address] [place] [phone] 05/18/2024 10:00 EST Office Visit [facility] Rheumatology & Immunology - [address] [phone] Tod Perez NP [address] [place] [address], [facility] 5 [place] [phone] 06/03/2024 9:00 EST Ancillary Procedure [facility] [address] [place] [address] [phone] 06/03/2024 9:00 EST Office Visit [facility] [address] [place] [address] [phone] Claire Lopez NP 130 [facility] [address] [place] [address] Health Maintenance Due Date Last Done Comments RSV Immunization ( o r 60+ Years) (1 - 1-dose 60+ series) 2003 COVID-19 Vaccine (2022-2 4 season) 2023 04/03/2021, 08/11/2020, 07/13/2020 Fall Risk Screening 12/03/2024 12/04/2023, 10/24/2022, 05/30/2022, Additional history exists Procedures Procedure Name Priority Date/Time Associated Diagnosis Comments CARDIAC IMPLANT CHECK - IN CLINIC Routine 12/04/2023 9:21 EDT Pacemaker from Last 3 Months Results * CARDIAC IMPLANT CHECK - IN CLINIC - PACEMAKER SINGLE CHAMBER W/ PROG (12/04/2023 9:21 EDT) Anatomical Region Laterality Modality Device Narrative 12/04/2023 9:21 EDT Refer to same day OV for full details Procedure Note Claire Lopez NP - 12/04/2023 Refer to same day OV for full details Claire Lopez ELECTRONIC EQUIPMENT REPAIRMEN CV IMPLANTABLE CARDI AC DEVICE from Last 3 Months Advance Directives For more information, please contact: [phone] * Full Code (Latest Code Status on File) Date Activated Date Inactivated Comments 11/22/2020 9:45 11/22/2020 17:38 Question Answer Comments Reason for decision includes: Full code consistent with overall plan of care Who participated in the discussion? Not Discusse d * Full Code Date Activated Date Inactivated Comments 04/09/2012 14:03 04/10/2012 16:34 * Full Code Date Activated Date Inactivated Comments 04/08/2012 0:29 04/09/2012 14:03 Care Teams Electron Beam Welder Setter Relationship Specialty Start Date End Date Vianey Bocanegra APRN [address] [facility] [address] [place] [phone] PCP - General 12/17/23 Claire Lopez NP [address] [place] [address] [address] [place] [address] Cardiovascular Disease 11/22/20 Tod Perez NP [address] [place] [address], [facility] 5 [place] [phone] Rheumatology 12/28/20
--- OUTSIDE RECORDS SUMMARY | 2024-01-09 01:47 | XMS_ITS | Encounter Summary ---
Author Organization [facility] Address [address] [place] [address] Care Team Providers Care Tin Roofer Name Role Phone Layne Cai MD Primary Care Provider [phone] Claire Lopez PARATRANSIT DRIVER Unavailable [phone] Tod Perez PARATRANSIT DRIVER Unavailable [phone] Reason for Visit * Reason Onset Date Comments Appointment Related 12/15/2023 Encounter Details Date Type Department Care Team (Late st Contact Info) Description 12/15/2023 Telephone [facility] Rheumatology & Immunology - [facility] [address] [place] [address] Stephanie Mercado MA Appointment Related Social History Tobacco Use Types Packs/Day Years [...] encounter Miscellaneous Notes * Telephone Encounter - Stephanie Mercado MA - 12/15/2023 1324 EDT Rescheduled appt from 11-17-2023 for December 16 at 8:30 am via Cardoct video with Tod. documented in this encounter Plan of Treatment Upcoming Encounters Date Type Department Care Team (Late st Contact Info) Description 04/09/2024 16:30 EDT Office Visit [facility] Hematology & Oncology [address] [phone] Erin Barillas MD [address] [place] [address] 2 [place] [phone] 05/18/2024 10:00 EST Office Visit [facility] Rheumatology & Immunology [address] [phone] Tod Perez NP [address] [place] [address], [facility] [address] [place] [phone] 06/03/2024 9:[address] [facility] Cardiology Clinic [address] [place] [address] [phone] 06/03/2024 9:[address] [facility] Cardiology Clinic [address] [place] [address] [phone] Claire Lopez NP [address] [place] [address] [address] [place] [phone] documented as of this encounter Visit Diagnoses Not on filedocumented in this encounter Care Teams Tin Roofer Relationship Specialty Start Date End Date Layne Cai MD [address] [place] [phone] PCP - General 04/05/20 12/16/23 Claire Lopez NP [address] [place] [address] [phone] Cardiovascular Disease 11/22/20 Tod Perez NP [address] [place] [address], [address] [place] [phone] Rheumatology 12/28/20 documented as of this encounter
--- OUTSIDE RECORDS SUMMARY | 2024-01-09 01:47 | XMS_ITS | Encounter Summary ---
Author Organization [facility] Address [address] [place] [address] Care Team Providers Care Supervisor Heading Name Role Phone Layne Cai MD Primary Care Provider [phone] Claire Lopez CAN PUSHER Unavailable [phone] Tod Perez CAN PUSHER Unavailable [phone] Encounter Details Date Type Department Care Team (Late st Contact Info) Description 01/28/2023 Orders Only [facility] Hematology & Oncology - [facility] [address] [place], [place] [phone] Libra Rich, RN Social History Tobacco Use Types Packs/Day Years [...] Info) Description 04/09/2024 16:30 EDT Office Visit [facility] Hematology & Oncology - [address] [phone] Erin Barillas MD [address] [place] [address] 2 [place] [phone] 05/18/2024 10:00 EST [facility] Visit [facility] Rheumatology & Immunology [address] [phone] Tod Perez NP [address] [place] [address] 5 [place] [phone] 06/03/2024 9:00 EST Ancillary Procedure [facility] Cardiology Clinic [address] [place] [address] [phone] 06/03/2024 9:00 EST Office Visit [facility]iology Clinic [address] [place] [address] [phone] Claire Lopez NP [address] [place] [address] [address] [place] [phone] documented as of this encounter Visit Diagnoses Not on filedocumented in this encounter Care Teams Supervisor Heading Relationship Specialty Start Date End Date Layne Cai MD [address] [place] [phone] PCP - General 04/05/20 12/16/23 Claire Lopez NP [address] [place] [address] 2[address] [place] [address] Cardiovascular Disease 11/22/20 Tod Perez NP 111 [facility], [facility] 5 [place] [phone] Rheumatology 12/28/20 documented as of this encounter
--- OUTSIDE RECORDS SUMMARY | 2024-01-09 01:47 | XMS_ITS | Encounter Summary ---
Author Organization [facility] Address [address] [place] [address] Care Team Providers Care Robotic Maintenance Technician Name Role Phone Layne Cai MD Primary Care Provider Claire Lopez RESEARCH MANUFACTURING OPERATOR Unavailable [phone] Tod Perez RESEARCH MANUFACTURING OPERATOR Unavailable [phone] Encounter Details Date Type Department Care Team (Late st Contact Info) Description 10/30/2022 Orders Only [facility] Hematology & Oncology - [facility] [address] [place], [place] [phone] Libra Rich, TRAM Microcytosis (Primary Dx) Social History Tobacco Use Types [...] of this encounter Progress Notes * Libra Rich RN - 10/30/2022 1229 EDT CBC diff + CMP faxed to [facility] lab documented in this encounter Plan of Treatment Upcoming Encounters Date Type Department Care Team (Late st Contact Info) Description 04/09/2024 16:30 EDT Office Visit [facility] Hematology & Oncology - [address] [phone] Erin Barillas MD [address] [place] [address] 2 [place] [phone] 05/18/2024 10:00 EST Office Visit [facility] Rheumatology & Immunology - [address] [phone] Tod Perez NP 111 [facility], [facility] 5 [place] [phone] 06/03/2024 9:00 EST Ancillary Procedure [facility] Cardiology Clinic [address] [place] [address] [phone] 06/03/2024 9:00 EST Office Visit [facility] Cardiology Clinic [address] [place] [address] Claire Lopez NP [address] [place] [address] [address] [place] [phone] documented as of this encounter Visit Diagnoses Diagnosis Microcytosis- Primary Other abnormality of red blood cells documented in this encounter Care Teams Robotic Maintenance Technician Relationship Specialty Start Date End Date Layne Cai MD [address] [place] [phone] PCP - General 04/05/20 12/16/23 Claire Lopez NP [address] [place] [address] 2[address] [place] [address] Cardiovascular Disease 11/22/20 Tod Perez NP 111 [facility], [address] [place] [phone] Rheumatology 12/28/20 documented as of this encounter
--- OUTSIDE RECORDS SUMMARY | 2024-01-09 01:47 | XMS_ITS | Encounter Summary ---
Author Organization [facility] Address [address] [place] [address] Care Team Providers Care Sox Analyst Name Role Phone Layne Cai MD Primary Care Provider Claire Lopez STUDENT SERVICES COUNSELOR Unavailable [phone] Tod Perez STUDENT SERVICES COUNSELOR Unavailable [phone] Encounter Details Date Type Department Care Team (Late st Contact Info) Description 07/31/2023 Orders Only [facility] Hematology & Oncology - [facility] [address] [place], [place] [phone] Erin Barillas MD 111 [facility], Level 2 [place] [address] Social History Tobacco Use Types [...] Dispensed Refills Start Date End Da te doxycycline (VIBRA-TABS) 100 mg tablet Take 1 Tablet by mouth 2 times daily for 5 days. 10 Tablet 07/31/2023 08/01/2023 documented in this encounter Plan of Treatment Upcoming Encounters Date Type Department Care Team (Late st Contact Info) Description 04/09/2024 16:30 EDT Office Visit [facility] Hematology & Oncology [address] [phone] Erin Barillas MD [address] [place] [address], [facility] 2 [place] [phone] 05/18/2024 10:00 EST Office Visit [facility] Rheumatology & Immunology [address] [phone] Tod Perez NP [address] [place] [address], [facility] 5 [place] [phone] 06/03/2024 9:00 EST Ancillary Procedure [facility] [address] [place] [phone] 06/03/2024 9:00 EST Office Visit [facility] [address] [place] [address] [phone] Claire Lopez NP 130 [facility] [address] [place] [phone] documented as of this encounter Visit Diagnoses Not on filedocumented in this encounter Care Teams Sox Analyst Relationship Specialty Start Date End Date Layne Cai MD [address] [place] [phone] PCP - General 04/05/20 12/16/23 Claire Lopez NP [address] [place] [address] [address] [place] [address] Cardiovascular Disease 11/22/20 Tod Perez NP [address] [place] [address], [facility] 5 [place] [address] Rheumatology 12/28/20 documented as of this encounter
--- OUTSIDE RECORDS SUMMARY | 2024-01-09 01:47 | XMS_ITS | Encounter Summary ---
Author Organization [facility] Address [address] [place] [address] Care Team Providers Care Emergency Physician Name Role Phone JessicaClaire campoverde FESTUS Unavailable [phone] Tod Perez NP Unavailable [phone] Vianey Bocanegra APRN Primary Care Provider [phone] Reason for Referral * Laboratory Services (Routine/Next Available) - New Request Specialty Diagnoses / Procedures Referred By Marissa carney Referred To Contact Diagnoses Inflammatory arthritis Encounter for long-term (current) use of medications Osteopenia, unspecified location Procedures COMPREHENSIVE METABOLIC PANEL (CMP) Tod Perez NP [address] [address] Referral ID Status Reason Start Date Expiration Date V isits Requested Visits Authorized [id number] New Request 12/17/2023 1 1 * Laboratory Services (Routine/Next Available) - New Request Specialty Diagnoses / Procedures Referred By Marissa carney Referred To Contact Diagnoses Inflammatory arthritis Encounter for long-term (current) use of medications Osteopenia, unspecified location Procedures COMPLETE BLOOD COUNT AND DIFFERENTIAL Tod Perez NP [address] [address] Referral ID Status Reason Start Date Expiration Date V isits Requested Visits Authorized [id number] New Request 12/17/2023 1 1 * Radiology Services (Routine/Next Available) - Authorization Not Required Specialty Diagnoses / Procedures Referred By Contac t Referred To Contact Diagnoses Inflammatory arthritis Encounter for long-term (current) use of medications Osteopenia, unspecified location Procedures DXA BONE DENSITY Tod Perez NP [address] [place] [phone] Referral ID Status Reason Start Date Expiration Date Visits Requested Visits Authorized [id number] Authorization Not Required 12/17/2023 1 1 Reason for Visit * Reason Comments Follow-up Encounter Details Date Type Department Care Team (Late st Contact Info) Description 12/17/2023 8:30 EDT Telemedicine [facility] Rheumatology & Immunology - [address] [phone] Tod Perez NP [address] [place] [phone] Inflammatory arthritis (Primary Dx); Encounter for long-term (current) use of medications; Osteopenia, unspecified location Social History Tobacco Use Types Packs/Day Years [...] encounter Patient Instructions * Patient Instructions* Tod Perez NP - 12/17/2023 8:30 EDT Continue current meds. Labs every 3-4 months DXA at [facility] documented in this encounter Progress Notes * Starla Riley MA - 12/17/2023 0830 EDT The concept of ???Telemedicine?? has been described to the patient.? Patient has been informed of the anticipated benefits and possible risks.? Patient understands the information provided regardingtelemedicine, has had the opportunity to ask questions about this information, and all questions have been answered to patient???s satisfaction. Patient consents for the use of telemedicine in his/her medical care and authorizes the transmission of any relevant medical information to providers and their staff involved in patient???s medical or mental health care. Patient understands that they maybe responsible for copays, deductible or coinsurance for this service. Today's visit was conducted by telephone: The location of the patient: Home (where patient lives) The location of the provider: Office The following staff and their role did participate in today's encounter visit: STARLA RILEY MA I spent a total of minutes with Praneeth Villanueva as described in the progress note. * Tod Perez NP - 12/17/2023 0830 EDT Patient ID: Praneeth Villanueva is a 78 y.o. y.o. male Subjective: Chief Complaint: Follow-up HPI: Pertinent Rheumatological History: 1. Seronegative inflammatory arthritis - On MTX 20 mg orally weekly with folic acid 1 mg orally daily - Will Reduce MTX to 17.5 mg orally weekly x 4 weeks then 15 mg orally weekly - Previously treated with hydroxychloroquine. 2. Degenerative disc disease 3. Rosacea - treated with Soolantra 4. Polycythemia vera Previously followed with [facility] Mcclendon history of seronegative inflammatory polyarthritis and degenerative disc disease who presents todayfor a follow-up visit. 04/03/2021 Alecia Saavedra at [facility] is concerned for MTX ILD/fibrosis. Reviewed [...] other structures normal. No specialty comments available. 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 ? Myocardial bridging Methotrexate Methotrexate lung fibrosis dx per pulmonary 04/02/21 Current Outpatient Medications Medication aspirin 81 mg EC tablet ergocalciferol, vitamin D2, (VITAMIN D ORAL) finasteride (PROSCAR) 5 mg tablet gabapentin (NEURONTIN) 300 mg capsule HYDROXYUREA, SICKLE CELL, ORAL melatonin 3 mg tablet metoprolol XL (TOPROL-XL) 25 mg tablet metroNIDAZOLE (METROGEL) 0.75 % gel omeprazole (PRILOSEC) 40 mg capsule simvastatin (ZOCOR) 40 mg tablet sulfaSALAzine (AZULFIDINE) 500 mg tablet No current facility-administered medications for this visit. Objective: There were no vitals taken for this visit. LABS: Latest Reference Range & Units 08/01/23 00:00 WBC, External 4.4 - 10.8 12.24 ! (E) RBC, External 4.36 - 5.78 6.01 ! (E) Hemoglobin, External 13.5 - 17.5 % 12.7 ! (E) HCT, External 45.5 (E) MCH, External 27.0 - 33.0 g/dL 21.1 ! (E) MCV, External 80 - 95 76 ! (E) MCHC, External 32.0 - 36.0 g/dL 27.9 ! (E) RDW-CV, External 11.8 - 14.1 19.8 ! (E) PLT, External 348 (E) Neutrophils, External 76.3 (E) Lymphocytes, External 14.1 (E) Monocytes, External 6.1 (E) Eosinophils, External 1.6 (E) Basophils, External 0.9 (E) ABS Neutrophils, External 1.2 - 6.7 9.34 ! (E) ABS Lymphs, External 1.73 (E) ABS Monocytes, External 0.75 (E) ABS Eosinophils, External 0.20 (E) ABS Basophils, External 0.11 (E) !: Data is abnormal (E): External lab result Lab Results Component Value Date WBC 10.79 [...] CHOLHDL 5.0 04/08/2012 RAPID3 Summary Functional Status: 1 Pain Tolerance: 0 - No Pain Global Estimate: 0 - Very Well Score: 1 Interpretation: Near Remission ASSESSMENT/PLAN: Encounter Diagnoses Name Primary? Inflammatory arthritis Yes Encounter for long-term (current) use of medications [...] normal. 3. Previously Dr. Alecia Calderon, at [facility] was concerned for MTX ILD/fibrosis. MTX d/'c'd forthis reason. At last visit Pt's states SOB has resolved, and CT findings had improved. Sleep apnea resolved on recent sleep study. Pulm D/c PT in 2023 as doing well. 1 3. Labs every 3-4 months 4. Polycythemia vera -followed by Dr. Barillas Hematology/Oncology On hydrea and aspirin 81mg. Not needing phlebotomy at this time as CBC and abs neutrophils normalized doing well. 5. moderna #1 and #2 and #3 6. HD flu 2020 complete 7. DXA at [facility]- osteopenia- neg for spinal fx. Reviewed calcium and vit D recommendations. 9 dependent edema 1+ has been taking a break from his compression stockings- 2/2 increased restlessleg - drinking pick juice per his PCP for restless leg, feels like it has helped some covid 05/16/22 did not stop SSZ , had -10lb wt loss, loss taste and smell, arthralgias, diarrha - treated with molpinivir, -still has a lingering cough. Pt does not think he will get 2022 covid vaccine. There are no Patient Instructions on file for this visit. No follow-ups on file. Patient verbalizes understanding and agrees with plan Yes I was directly supervised by: Dr. Warner They were present in clinic and available for consult if needed. I spent a total of 17 minutes on the date of this encounter meeting with the patient and reviewing documentation/coordinating care as described in the above note. No procedures were performed at the time of the visit. Tod Perez NP 05/19/2023 documented in this encounter Plan of Treatment Upcoming Encounters Date Type Department Care Team (Late st Contact Info) Description 04/09/2024 16:30 EDT [facility] Hematology & Oncology - [address] [phone] Erin Barillas MD 111 [facility] 2 [place] [phone] 05/18/2024 10:00 EST Office Visit [facility] Rheumatology & Immunology - [address] [phone] Tod Perez NP 111 [facility] 5 [place] [phone] 06/03/2024 9:00 EST Ancillary Procedure [facility] [address] [place] [address] 06/03/2024 9:00 EST Office Visit [facility] [address] [place], [place] 919[address] Claire Lopez NP [address] [phone] Scheduled Orders Name Type Priority Associated Diagnoses Orde r Schedule DXA BONE DENSITY Imaging Routine Inflammatory arthritis Encounter for long-term (current) use of medications Osteopenia, unspecified location Expected: 12/24/2023 (Approximate), Expires: 12/16/2025 COMPLETE BLOOD COUNT AND DIFFERENTIAL Lab Routine Inflammatory arthritis Encounter for long-term (current) use of medications Osteopenia, unspecified location Every 12-Weeks for 4 Occurrences starting 12/17/2023 until 12/16/2024 COMPREHENSIVE METABOLIC PANEL (CMP) Lab Routine Inflammatory arthritis Encounter for long-term (current) use of medications Osteopenia, unspecified location Every 12-Weeks for 4 Occurrences starting 12/17/2023 until 12/16/2024 documented as of this encounter Visit Diagnoses Diagnosis Inflammatory arthritis- Primary Unspecified inflammatory polyarthropathy Encounter for long-term (current) use of medications Encounter for long-term (current) use of other medications Osteopenia, unspecified location documented in this encounter Care Teams Emergency Physician Relationship Specialty Start Date End Date Vianey Bocanegra APRN 26 [facility] [address] [place] [phone] PCP - General 12/17/23 Claire Lopez NP [address] [place] [phone] Cardiovascular Disease 11/22/20 Tod Perez NP 111 [facility] 5 [place] [phone] Rheumatology 12/28/20 documented as of this encounter
--- OUTSIDE RECORDS SUMMARY | 2024-01-09 01:47 | XMS_ITS | Encounter Summary ---
Author Organization [facility] Address [address] [place] [address] Care Team Providers Care Main Line Station Engineer Name Role Phone Layne Cai MD Primary Care Provider [phone] Claire Lopez PROJECT MANAGEMENT IT SPECIALIST Unavailable [phone] Tod Perez PROJECT MANAGEMENT IT SPECIALIST Unavailable [phone] Reason for Visit * Reason Comments Follow-up Encounter Details Date Type Department Care Team (Late st Contact Info) Description 05/02/2023 14:30 EST Telemedicine [facility] Hematology & Oncology - [facility] [address] [place], [place] [phone] Erin Barillas MD 111 [facility], Level [address] [place] [address] PV (polycythemia vera) ([facility]) (Primary Dx) Social History Tobacco Use Types [...] as of this encounter Progress Notes * Erin Barillas MD - 05/02/2023 1430 EST DATE: 05/02/23 The concept of ???Telemedicine?? has been described [...] Home Patient location state: Visit Location State: [place] The location of the provider: Office Provider location state: Visit Location State: [place] The following people and their roles were present for today's visit: Appointment Provider: Erin Barillas MD Sakshi Jasra, MD HEMATOLOGIC HISTORY: Mr. Villanueva is a 77 y.o. gentleman with past medical history of [...] He receives intermittent phlebotomy. INTERVAL HISTORY: Praneeth continues to take Hydrea 500mg daily without any issues. No specific concerns today. He has a chronic dry cough for which he is following up with pulmonary. REVIEW OF SYSTEMS: The remainder of a 10-point review of systems, as filled out on the patient's symptom report form, is otherwise negative. SOCIAL HISTORY: Retired. Worked for the [employer]. Former smoker with 20 pack year smoking history, quit 40 years ago. 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 Family history: No family history of cancer, thrombosis or other blood disorders that patient is aware of. PHYSICAL EXAM: General: Well- appearing, in no acute distress. Alert and oriented to person, place, date and time. HEENT: Normocephalic. Labs: Reviewed in [facility] ASSESSMENT: Praneeth Villanueva is a 77 y.o. male with a JAK2 positive myeloproliferative neoplasm, Polycythemia vera. He was started on hydroxyurea 1,000 mg daily in November, but this was complicated by cytopenias.He is now on hydroxyurea 500 mg po daily which is well tolerated. Also undergoes intermittent phlebotomy. Noted to have iron deficiency today. Likely secondary to the repeat phlebotomies. Hgb and Hct are at goal. No oral iron supplementation recommended as the purpose of phlebotomy is to create a state of absolute iron deficiency and control counts. He has undergone EGD/Colonoscopy and had a hyperplastic polyp removed Plan: 1. Continue Hydrea 500mg daily. Goal Hct of <45 2. Recommend repeat labs monthly. Will organize for this to be done in [place] per patient preference. Check CBC diff, CMP. Will also repeat Ferritin levels. 3. Age appropriate cancer screening 4. Covid, Flu and RSV vaccines recommended. Follow up with me in April after labs Erin Barillas MD I spent 30 minutes related to this patient's care today, which includes time with the patient, timereviewing medical records and reviewing imaging reports and laboratory results, time updating the chart information, and time composing this note. documented in this encounter Plan of Treatment Upcoming Encounters Date Type Department Care Team (Late st Contact Info) Description 04/09/2024 16:30 EDT Office Visit [facility] Hematology & Oncology - [address] [phone] Erin Barillas MD [address] [place] [address], [facility] 2 [place] [phone] 05/18/2024 10:00 EST Office Visit [facility] Rheumatology & Immunology - [address] [phone] Tod Perez NP [address] [place] [address], [facility] 5 [place] [phone] 06/03/2024 9:00 EST Ancillary Procedure [facility] [address] [place] [phone] 06/03/2024 9:00 EST Office Visit [facility] [address] [place] [phone] Claire Lopez NP [address] [place] [phone] documented as of this encounter Visit Diagnoses Diagnosis PV (polycythemia vera) ([facility])- Primary Polycythemia vera documented in this encounter Care Teams Main Line Station Engineer Relationship Specialty Start Date End Date Layne Cai MD [address] [place] [phone] PCP - General 04/05/20 12/16/23 Claire Lopez NP [address] [place] [address] [phone] Cardiovascular Disease 11/22/20 Tod Perez NP 111 [facility], Level [address] [place] [address] Rheumatology 12/28/20 documented as of this encounter
--- OUTSIDE RECORDS SUMMARY | 2024-01-09 01:47 | XMS_ITS | Encounter Summary ---
Author Organization [facility] Address [address] [place] [address] Care Team Providers Care Heat Regulator Name Role Phone Layne Cai MD Primary Care Provider [phone] Claire Lopez LANDSCAPE LABORER Unavailable [phone] Tod Perez LANDSCAPE LABORER Unavailable [phone] Encounter Details Date Type Department Care Team (Late st Contact Info) Description 08/01/2023 Orders Only [facility] Cancer Center Hematology & Oncology - [facility] [address] [place], [place] [phone] Sabiha Lockett, RN [address] [place] [address] Social History Tobacco Use Types Packs/Day Years [...] as of this encounter Progress Notes * Sabiha Lockett, RN - 08/01/2023 1352 EST Prescription cx per Dr. Barillas. documented in this encounter Plan of Treatment Upcoming Encounters Date Type Department Care Team (Late st Contact Info) Description 04/09/2024 16:30 EDT Office Visit [facility] Hematology & Oncology [address] [phone] Erin Barillas MD [address] [place] [address] 2 [place] [phone] 05/18/2024 10:00 EST Office Visit [facility] Rheumatology & Immunology [address] [phone] Tod Perez NP [address] [place] [address], [facility] 5 [place] [phone] 06/03/2024 9:[address] [facility] [address] [place] [phone] 06/03/2024 9:[address] [facility] [address] [place] [address] Claire Lopez NP [address] [place] [address]-[address] [place] [phone] documented as of this encounter Visit Diagnoses Not on filedocumented in this encounter Discontinued Medications Medication Sig Discontinue Reason Start Date End Da te doxycycline (VIBRA-TABS) 100 mg tablet Take 1 Tablet by mouth 2 times daily for 5 days. Error 07/31/2023 08/01/2023 documented as of this encounter Care Teams Heat Regulator Relationship Specialty Start Date End Date Layne Cai MD [address] [place] [address] PCP - General 04/05/20 12/16/23 Claire Lopez NP [address] [place] [address] [phone] Cardiovascular Disease 11/22/20 Tod Perez NP 111 [facility], [facility] 5 [place] [phone] Rheumatology 12/28/20 documented as of this encounter
--- OUTSIDE RECORDS SUMMARY | 2024-01-09 01:47 | XMS_ITS | Encounter Summary ---
Author Organization [facility] Address [address] [place] [address] Care Team Providers Care Ream Cutter Name Role Phone Layne Cai MD Primary Care Provider [phone] Claire Lopez ENDOCRINOLOGY TEACHER Unavailable [phone] Tod Perez ENDOCRINOLOGY TEACHER Unavailable Reason for Visit * Reason Onset Date Comments Appointment Related 09/15/2023 Encounter Details Date Type Department Care Team (Late st Contact Info) Description 09/15/2023 Telephone [facility] Cancer Center Hematology & Oncology - [facility] [address] [place], [place] [phone] Reshma Soni, ENDOCRINOLOGY TEACHER 111 [facility] Level 2 [place] [address] Appointment Related Social History Tobacco Use Types [...] encounter Miscellaneous Notes * Telephone Encounter - Tod Erickson - 09/15/2023 1509 EDT Lmom for pt about no 09/28 rescheduled for 09/24 at 420 via zoom with reshma soni at home. Labs prior can send orders closer to home left PAC# documented in this encounter Plan of Treatment Upcoming Encounters Date Type Department Care Team (Late st Contact Info) Description 04/09/2024 16:30 EDT Office Visit [facility] [place] Hematology & Oncology - [address] [phone] Erin Barillas MD [address] [place] [address], [facility] 2 [place] [phone] 05/18/2024 10:00 EST Office Visit [facility] Rheumatology & Immunology - [address] 750671 Tod Perez NP 111 [facility], [facility] 5 [place] [phone] 06/03/2024 9:00 EST Ancillary Procedure [facility] [address] [place] [phone] 06/03/2024 9:00 EST Office Visit [facility] [address] [place] [address] Claire Lopez NP [address] [phone] documented as of this encounter Visit Diagnoses Not on filedocumented in this encounter Care Teams Ream Cutter Relationship Specialty Start Date End Date Layne Cai MD [address] [place] [phone] PCP - General 04/05/20 12/16/23 Claire Lopez NP [address] [place] [phone] Cardiovascular Disease 11/22/20 Tod Perez NP [address] [place] [address], Level [address] [place] [address] Rheumatology 12/28/20 documented as of this encounter
--- OUTSIDE RECORDS SUMMARY | 2024-01-09 01:47 | XMS_ITS | Encounter Summary ---
Author Organization [facility] Address [address] [place] [address] Care Team Providers Care Trip Motor Operator Name Role Phone Layne Cai MD Primary Care Provider [phone] Claire Lopez GUARD IMMIGRATION Unavailable Tod Perez GUARD IMMIGRATION Unavailable [phone] Encounter Details Date Type Department Care Team (Late st Contact Info) Description 05/07/2023 Orders Only [facility] Cardiology Clinic [address] [place] [address] Ryann Venegas MA Pacemaker (Primary Dx) Social History Tobacco Use Types [...] Info) Description 04/09/2024 16:30 EDT Office Visit [facility] Hematology & Oncology [address] [phone] Erin Barillas MD [address] [place] [address] 2 [place] [phone] 05/18/2024 10:00 EST Office Visit [facility] Rheumatology & Immunology [address] [phone] Tod Perez NP [address] [place] [address] 5 [place] [phone] 06/03/2024 9:00 EST Ancillary Procedure [facility] [address] [place] [address] [phone] 06/03/2024 9:00 EST Office Visit [facility] [address] [place] [address] [phone] Claire Lopez NP [address] [place] [address] [address] [place] [phone] documented as of this encounter Procedures Procedure [...] documented in this encounter Visit Diagnoses Diagnosis Pacemaker- Primary Cardiac pacemaker in situ documented in this encounter Care Teams Trip Motor Operator Relationship Specialty Start Date End Date Layne Cai MD [address] [place] [phone] PCP - General 04/05/20 12/16/23 Claire Lopez NP [address] [place] [address] [address] [place] [phone] Cardiovascular Disease 11/22/20 Tod Perez NP [address] [place] [address], [facility] 5 [place] [address] Rheumatology 12/28/20 documented as of this encounter
--- OUTSIDE RECORDS SUMMARY | 2024-01-09 01:47 | XMS_ITS | Encounter Summary ---
Author Organization [facility] Address [address] [place] [address] Care Team Providers Care Billing Spec Name Role Phone Layne Cai MD Primary Care Provider [phone] Claire Lopez STITCHDOWNS TOE FORMER Unavailable [phone] Tod Perez STITCHDOWNS TOE FORMER Unavailable [phone] Reason for Visit * Reason Onset Date Comments Appointment Related 11/14/2023 Encounter Details Date Type Department Care Team (Late st Contact Info) Description 11/14/2023 Telephone [facility] Rheumatology & Immunology - [facility] [address] [place], [place] [phone] Tod Perez, STITCHDOWNS TOE FORMER [address] [facility], [address] [place] [address] Appointment Related Social History Tobacco [...] encounter Miscellaneous Notes * Telephone Encounter - Nan Cohen MA - 11/14/2023 1356 EDT Tod Perez broke her ankle and will be out for an unknown amount of time. Called patient to cancel appointment on 11/17/23 at 3:00pm. Informed patient we will not be rescheduling their appointmentat this time until we have more information. Staff will reach out to reschedule when we know when Tod will be returning. If you have any questions, please call [phone]. documented in this encounter Plan of Treatment Upcoming Encounters Date Type Department Care Team (Late st Contact Info) Description 04/09/2024 16:30 EDT Office Visit [facility] Hematology & Oncology - [address] [phone] Erin Barillas MD [address] [place] [address] 2 [place] [phone] 05/18/2024 10:00 EST Office Visit [facility] Rheumatology & Immunology - [address] [address] Tod Perez NP [address] [facility], [facility] 5 [place] [phone] 06/03/2024 9:00 EST Ancillary Procedure [facility] [address] [place] [phone] 06/03/2024 9:00 EST Office Visit [facility] Card[facility] Clinic [address] [place] [address] Claire Lopez NP [address] [place] [address] [phone] documented as of this encounter Visit Diagnoses Not on filedocumented in this encounter Care Teams Billing Spec Relationship Specialty Start Date End Date Layne Cai MD [address] [place] [phone] PCP - General 04/05/20 12/16/23 Claire Lopez NP [address] [place] [phone] Cardiovascular Disease 11/22/20 Tod Perez NP 111 [facility], [facility] 5 [place] [phone] Rheumatology 12/28/20 documented as of this encounter
--- OUTSIDE RECORDS SUMMARY | 2024-01-09 01:47 | XMS_ITS | Encounter Summary ---
Author Organization [facility] Address [address] [place] [address] Care Team Providers Care Consumer Science Teacher Name Role Phone Layne Cai MD Primary Care Provider [phone] Claire Lopez CONTROL ELECTRICIAN Unavailable [phone] Tod Perez NP Unavailable [phone] Reason for Visit * Reason Comments Pacemaker/Device Check Medtronic Encounter Details Date Type Department Care Team (Late st Contact Info) Description 05/13/2023 10:45 EST Office Visit [facility] [address] [place] [address] Claire Lopez NP 130 [facility] [address] [place] [address] Pacemaker (Primary Dx); 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; Primary hypertension; Hypercholesteremia [...] Sign Reading Time Taken Comments Blood Pressure 136/78 05/13/2023 1026 EST Pulse 63 05/13/2023 1026 EST Temperature - - Respiratory Rate - - Oxygen Saturation 97% 05/13/2023 1026 EST Inhaled Oxygen Concentration - - Weight 103.9 kg (229 lb) 05/13/2023 1026 EST Height 181.4 cm (5' 11.42) 05/13/2023 1026 EST Body Mass Index 31.56 05/13/2023 1026 EST documented in this encounter Functional Status [...] Progress Notes * Claire Lopez NP - 05/13/2023 1045 EST Cardiology Clinic Note 05/13/23 10:36 Presenting complaint: Pacemaker/Device Check (Medtronic) HPI Praneeth is a pleasant 77 yo with multiple medical co-morbidities including inflammatory polyarthropathy, hx benign neoplasm of the colon, polycythemia vera, GERD, BPH, stage III CKD, HLD, NATALIE, HTN, sinus node dysfunction s/p single chamber pacemaker who returns to the office for follow-up. From a cardiac perspective Praneeth is feeling well. He is accompanied today by his , Augustina. They are hoping shyanne able to head out to [place] in their camper later this winter. Systems review A 10 point review of [...] chest pain ??? 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 PV (polycythemia vera) ([facility]) Past Surgical History: Procedure Laterality Date ??? CARDIAC PACEMAKER PLACEMENT ??? CATARACT REMOVAL bilateral ??? CHOLECYSTECTOMY 2005 ??? EYE SURGERY ??? HERNIA REPAIR Medications Current Outpatient Medications on File Prior to Visit Medication Sig Dispense Refill ??? aspirin 81 mg EC tablet Take 1 Tablet by mouth daily. ??? ergocalciferol, vitamin D2, (VITAMIN D ORAL) Take 2,000 mg by mouth. ??? HYDROXYUREA, SICKLE CELL, ORAL Take 500 mg by mouth daily. ??? metoprolol XL (TOPROL-XL) 25 mg tablet Take 1 Tablet by mouth daily. ??? metroNIDAZOLE (METROGEL) 0.75 % gel Apply topically as needed. ??? omeprazole (PRILOSEC) 40 mg capsule Take 1 Capsule by mouth daily. ??? simvastatin (ZOCOR) 40 mg tablet Take 1 Tablet by mouth every evening. ??? sulfaSALAzine (AZULFIDINE) 500 mg tablet 1 tab twice daily (Patient taking differently: Take 1 Tablet by mouth 2 times daily. 1 tab [...] file Tobacco Use ??? Smoking status: Former Current packs/day: 0.00 Average packs/day: 3.0 packs/day for 20.2 years (60.7 ttl pk-yrs) Types: Cigarettes, Cigars Start date: 1962 Quit date: 09/15/1980 Years since quittin.6 Passive exposure: Never ??? Smokeless tobacco: Never ??? Tobacco comments: Quit >30 years ago Vaping Use ??? Vaping Use: Never used ??? Passive vaping exposure: Yes Substance and Sexual Activity ??? Alcohol use: Yes Comment: Occasional beer ??? Drug use: No ??? Sexual activity: Not on file Other Topics Concern ??? 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 General - A/Ox3, no acute distress [...] intact Peripheral neurology - no focal deficits [facility] Cardiology Device Visit Bank Examiner: Medtronic Device Type: Pacemaker Service: Office Visit Implant Date: 06/27/2020 Indication: Bradycardia Battery Longevity: 8.3 years Underlying rhythm: sinus arrest with rare ventricular escape Mode: VVIR URL/LRL: 130/60 bpm Ventricle Paced: 99.2% Lead Impedance, threshold, and sensing testing all [...] Component Value Date CREATININE 1.15 10/24/2022 CREATININEEX 1.3 04/18/2023 Lab Results Component Value Date NA 141 10/24/2022 K 4.6 10/24/2022 KEXT 4.4 04/18/2023 CL 103 10/24/2022 CLEXT 103 04/18/2023 CO2 27 10/24/2022 CO2EXT 26.7 04/18/2023 Lab Results Component Value Date TSH 0.38 09/15/2013 Lab Results Component Value Date HGBA1C 6.0 04/08/2012 Lab Results Component Value Date CHOL 111 04/08/2012 HDL 22 04/08/2012 LDLBASE 66 04/08/2012 TRIG 117 04/08/2012 CHOLHDL 5.0 04/08/2012 Diagnostics [facility] 11/2020 CORONARY ARTERIES: The coronary circulation is [...] CAD Non flow limiting disease observed on [facility] 11/2020 involving the LAD, D1, LCx and RCA. Currently without CP symptoms. Previously developed dizziness while on imdur therefore discontinued this medication. ?? 3. Essential hypertension Acceptable BP control on current regimen, no changes. Reinforced lifestyle modification through diet, limiting sodium intake, regular activity and maintaining a healthy weight. ?? 4. Hypercholesteremia Continue statin. Lifestyle as above Claire Lopez NP [facility] Cardiology documented in this encounter Plan of Treatment Upcoming Encounters Date Type Department Care Team (Late st Contact Info) Description 04/09/2024 16:30 EDT Office Visit [facility] Hematology & Oncology - [address] [phone] Erin Barillas MD 111 [facility] 2 [place] [phone] 05/18/2024 10:00 EST Office Visit [facility] Rheumatology & Immunology - [address] [phone] Tod Perez NP 111 [facility], Level [address] [place] [phone] 06/03/2024 9:00 EST Ancillary Procedure [facility] Cardiology Clinic [address] [place] [address] [phone] 06/03/2024 9:00 EST Office Visit [facility] Cardiology Clinic [address] [place] [address] Claire Lopez NP [address] [place] [phone] documented as of this encounter Visit Diagnoses Diagnosis Pacemaker- Primary Cardiac pacemaker in situ 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 Primary hypertension Unspecified essential hypertension Hypercholesteremia Pure hypercholesterolemia documented in this encounter Historical Medications * This list may reflect changes made after this encounter. Medication Sig Dispensed Refills Start Date End Date HYDROXYUREA, SICKLE CELL, ORAL Take 500 mg by mouth daily. added in this encounter Care Teams Consumer Science Teacher Relationship Specialty Start Date End Date Layne Cai MD [address] [place] [phone] PCP - General 04/05/20 12/16/23 Claire Lopez NP [address] [place] [phone] Cardiovascular Disease 11/22/20 Tod Perez NP 111 [facility], [address] [place] [phone] Rheumatology 12/28/20 documented as of this encounter
--- OUTSIDE RECORDS SUMMARY | 2024-01-09 01:47 | XMS_ITS | Encounter Summary ---
Author Organization [facility] Address [address] [place] [address] Care Team Providers Care [place] Monitoring Technician Name Role Phone Layne Cai MD Primary Care Provider [phone] Claire Lopez CLIENT CARE COORDINATOR Unavailable [phone] Tod Perez CLIENT CARE COORDINATOR Unavailable [phone] Reason for Visit * Reason Onset Date Comments Results 08/04/2023 Encounter Details Date Type Department Care Team (Late st Contact Info) Description 08/04/2023 Telephone [facility] Cancer Center Hematology & Oncology - [facility] [address] [place] [address] Erin Barillas MD 111 [facility], Level [address] [place] [address] Results Social History Tobacco Use Types Packs/Day Years [...] encounter Miscellaneous Notes * Telephone Encounter - Augustina Salazar - 08/04/2023 1420 EST LABS ENTERED FROM [facility] LAB. Augustina Salazar 08/04/2023 14:20 documented in this encounter Plan of Treatment Upcoming Encounters Date Type Department Care Team (Late st Contact Info) Description 04/09/2024 16:30 EDT Office Visit [facility] [place] Hematology & Oncology - [address] [phone] Erin Barillas MD [address] [place] [address] 2 [place] [phone] 05/18/2024 10:00 EST Office Visit [facility] Rheumatology & Immunology - [address] [phone] Tod Perez NP [address] [place] [address] 5 [place] [phone] 06/03/2024 9:00 EST Ancillary Procedure [facility] Cardiology Clinic [address] [place] [phone] 06/03/2024 9:00 EST Office Visit [facility] Cardiology Clinic [address] [place] [phone] Claire Lopez NP [address] [place] [address]-[address] [place] [address] documented as of this encounter Procedures Procedure Name Priority Date/Time Associated Diagnosis Comments COMPREHENSIVE METABOLIC PANEL (ONCOLOGY USE ONLY-INC MG) Routine 08/01/2023 COMPLETE BLOOD COUNT AND DIFFERENTIAL Routine 08/01/2023 documented in this encounter Results * (ABNORMAL) COMPREHENSIVE METABOLIC PANEL (ONCOLOGY USE ONLY-INC MG) (08/01/2023) Calcium, External 9.0 mg/dL [facility] CO2, External 26.6 mmol/L [facility] AST, External 18 U/L [facility] ALT, External 18 [facility] Bilirubin, Total, External 0.5 [facility] Creatinine, External 1.4(A) 0.70 - 1.30 mg/dL [facility] Calculated Calcium, External [facility] Anion Gap, External [facility] Total Protein, External 7.6 [facility] Potassium, External 4.1 mmol/L [facility] Total Alkaline Phosphatase, External 87 [facility] Albumin, External 4.1 g/dL [facility] BUN, External 24(A) 7 - 18 mg/dL [facility] GFR, Calculated, External 51.13 [facility] Fasting?, External [facility] Chloride, External 103 mmol/L [facility] Glucose, Serum, External 145(A) 74 - 106 mg/dL [facility] Sodium, External 139 mmol/L [facility] Magnesium, External [facility] Blood VENOUS BLOOD / Unknown 08/01/2023 Historical Provider CHEMISTRY & BLOOD GAS ORDERABLES [facility] * (ABNORMAL) COMPLETE BLOOD COUNT AND DIFFERENTIAL (08/01/2023) WBC, External 12.24(A) 4.4 - 10.8 [facility] RBC, External 6.01(A) 4.36 - 5.78 [facility] Hemoglobin, External 12.7(A) 13.5 - 17.5 % [facility] HCT, External 45.5 [facility] MCV, External 76(A) 80 - 95 [facility] MCH, External 21.1(A) 27.0 - 33.0 g/dL [facility] MCHC, External 27.9(A) 32.0 - 36.0 g/dL [facility] PLT, External 348 [facility] RDW-CV, External 19.8(A) 11.8 - 14.1 [facility] Neutrophils, External 76.3 [facility] Lymphocytes, External 14.1 [facility] Monocytes, External 6.1 [facility] Eosinophils, External 1.6 [facility] Basophils, External 0.9 [facility] ABS Neutrophils, External 9.34(A) 1.2 - 6.7 [facility] ABS Lymphs, External 1.73 [facility] ABS Monocytes, External 0.75 [facility] ABS Eosinophils, External 0.20 [facility] ABS Basophils, External 0.11 [facility] Blood VENOUS BLOOD / Unknown 08/01/2023 Historical Provider PACKAGES & DNA [place] OBE ORDERABLES [facility] documented in this encounter Visit Diagnoses Not on filedocumented in this encounter Care Teams [place] Monitoring Technician Relationship Specialty Start Date End Date Layne Cai MD [address] [place] [phone] PCP - General 04/05/20 12/16/23 Claire Lopez NP [address] [place] [address] 2[address] [place] [address] Cardiovascular Disease 11/22/20 Tod Perez NP [address] [place] [address], [facility] 5 [place] [phone] Rheumatology 12/28/20 documented as of this encounter
--- OUTSIDE RECORDS SUMMARY | 2024-01-09 01:47 | XMS_ITS | Encounter Summary ---
Author Organization [facility] Address [address] [place] [address] Care Team Providers Care Mining Captain Name Role Phone Layne Cai MD Primary Care Provider [phone] Claire Lopez RESEARCH GENETICIST Unavailable [phone] Tod Perez RESEARCH GENETICIST Unavailable [phone] Reason for Visit * Laboratory Services (Routine/Next Available) - Order Cancelled Specialty Diagnoses / Procedures Referred By Marissa carney Referred To Contact Diagnoses Inflammatory arthritis Encounter for vitamin deficiency screening Procedures COMPLETE BLOOD COUNT AND DIFFERENTIAL Tod Perez, RESEARCH GENETICIST 111 [facility], Level 5 [place] [address] Referral ID Status Reason Start Date Expiration Date V isits Requested Visits Authorized [id number] Order Cancelled 12/18/2021 1 1 Encounter Details Date Type Department Care Team (Late st Contact Info) Description 10/24/2022 14:00 EDT Phlebotomy Only [facility] ED Center 2 Phlebotomy [address] [place], [place] [id number] Surface Hydrologist, Acc Phlebotomy Inflammatory arthritis; Encounter for vitamin deficiency screening; Encounter for long-term (current) use of medications [...] Description 04/09/2024 16:30 EDT Office Visit [facility] Hematology & Oncology - [address] [phone] Erin Barillas MD [address] [place] [address] 2 [place] [phone] 05/18/2024 10:00 EST Office Visit [facility] Rheumatology & Immunology - [address] 419451 Tod Perez NP [address] [place] [address] 5 [place] [phone] 06/03/2024 9:00 EST Ancillary Procedure [facility] [address] [place] [address] [phone] 06/03/2024 9:00 EST Office Visit [facility] [address] [place] [address] [phone] Claire Lopez NP 130 [facility] 2-1 [place] [address] documented as of this encounter Procedures Procedure Name Priority Date/Time Associated Diagnosis Comments COMPLETE BLOOD COUNT AND DIFFERENTIAL Routine 10/24/2022 14:03 EDT Inflammatory arthritis Encounter for vitamin deficiency screening COMPREHENSIVE METABOLIC PANEL (CMP) Routine 10/24/2022 14:03 EDT Inflammatory arthritis Encounter for vitamin deficiency screening documented in this encounter Results * (ABNORMAL) COMPREHENSIVE METABOLIC PANEL (CMP) (10/24/2022 14:03 EDT) Sodium 141 136 - 145 mmol/L 10/24/2022 14:39 [facility] Potassium 4.6 3.5 - 5.0 mmol/L 10/24/2022 14:39 [facility] Chloride 103 96 - 110 mmol/L 10/24/2022 14:39 [facility] CO2 Total 27 22 - 32 mmol/L 10/24/2022 14:39 [facility] Glucose 114(H) 70 - 100 mg/dl 10/24/2022 14:39 [facility] BUN 16 10 - 26 mg/dL 10/24/2022 14:39 [facility] Creatinine 1.15 0.66 - 1.25 mg/dL 10/24/2022 14:39 [facility] eGFR 65 >60 mL/min/1.7 3m2 10/24/2022 14:39 [facility] Total Protein 7.4 6.3 - 8.2 g/dL 10/24/2022 14:39 [facility] Albumin 4.8 3.4 - 4.9 g/dL 10/24/2022 14:39 [facility] Alkaline Phosphatase 72 38 - 126 U/L 10/24/2022 14:39 [facility] AST 22 15 - 46 U/L 10/24/2022 14:39 [facility] ALT 15 <50 U/L 10/24/2022 14:39 T [facility] Bilirubin, Total 0.7 <1.4 mg/dL 10/25/19 14:39 T [facility] Calcium 9.5 8.5 - 10.5 mg/dL 10/24/2022 14:39 [facility] Albumin/Globulin Ratio 1.8 1.0 - 2.5 10/24/2022 14:39 T [facility] Anion Gap 11 5 - 14 mmol/L 10/24/2022 14:39 [facility] Blood VENOUS BLOOD / Unknown Venipuncture / Unknown 10/24/2022 14:03 EDT 10/24/2022 14:11 EDT Tod Perez NP CHEMISTRY & BLOOD G ORDERABLES Performing Organization Address City/State/[facility] Co de Phone Number [facility] [address] [place] [address] * (ABNORMAL) COMPLETE BLOOD COUNT AND DIFFERENTIAL (10/24/2022 14:03 EDT) WBC 10.79(H) 4.00 - 10.40 K/cmm 10/24/2022 14:24 [facility] RBC 5.87(H) 4.36 - 5.78 M/cmm 10/24/2022 14:24 [facility] Hemoglobin 12.6(L) 13.8 - 17.3 gm/dL 10/24/2022 14:24 [facility] HCT 45.1 39.5 - 50.2 % 10/24/2022 14:24 [facility] MCV 77(L) 81 - 95 fl 10/24/2022 14:24 [facility] MCH 21.5(L) 27.6 - 33.0 pg 10/24/2022 14:24 [facility] Hypochromia 2+ 10/24/2022 14:24 [facility] MCHC 27.9(L) 32.8 - 36.4 gm/dL 10/24/2022 14:24 [facility] RDW-CV 20.3(H) <14.2 % 10/24/2022 14:24 [facility] RDW-SD 53.6(H) <46.0 fl 10/24/2022 14:24 [facility] Anisocytosis 2+ 10/24/2022 14:24 [facility] PLT 298 141 - 377 K/cmm 10/24/2022 14:24 [facility] MPV 10/24/2022 14:24 [facility] Comment:Not Available % Neutrophils 78.3 % 10/24/2022 14:24 [facility] % Lymphocytes 13.1 % 10/24/2022 14:24 [facility] % Monocytes 6.1 % 10/24/2022 14:24 [facility] % Eosinophils 1.1 % 10/24/2022 14:24 [facility] % Basophils 0.8 % 10/24/2022 14:24 [facility] % Immature Grans 0.6 % 10/25/19 14:24 [facility] Absolute Neutrophils 8.45 2.20 - 8.85 K/cmm 10/24/2022 14:24 [facility] Absolute Lymphocytes 1.41 1.09 - 3.30 K/cmm 10/24/2022 14:24 [facility] Absolute Monocytes 0.66 0.10 - 0.80 K/cmm 10/24/2022 14:24 [facility] Absolute Eosinophils 0.12 0.03 - 0.61 K/cmm 10/24/2022 14:24 [facility] ABS Basophils 0.09 0.01 - 0.11 K/cmm 10/24/2022 14:24 [facility] Absolute Immature Grans 0.06 0.00 - 0.06 K/cmm 10/24/2022 14:24 [facility] Type of Differential: Auto 10/24/2022 14:24 EDT [facility] Blood VENOUS BLOOD / Unknown Venipuncture / Unknown 10/24/2022 14:03 EDT 10/24/2022 14:08 EDT Tod Perez NP PACKAGES & DNA PROB E ORDERABLES [facility] [address] [place] [address] documented in this encounter Visit Diagnoses Diagnosis Inflammatory arthritis Unspecified inflammatory polyarthropathy Encounter for vitamin deficiency screening Screening for other and unspecified endocrine, nutritional, metabolic, and immunity disorders Encounter for long-term (current) use of medications Encounter for long-term (current) use of other medications documented in this encounter Care Teams Mining Captain Relationship Specialty Start Date End Date Layne Cai MD [address] [place] [address] PCP - General 04/05/20 12/16/23 Claire Lopez NP [address] [place] [address] [phone] Cardiovascular Disease 11/22/20 Tod Perez NP 111 [facility], [facility] 5 [place] [address] Rheumatology 12/28/20 documented as of this encounter
--- OUTSIDE RECORDS SUMMARY | 2024-01-09 01:47 | XMS_ITS | Encounter Summary ---
Author Organization [facility] Address [address] [place] [address] Care Team Providers Care Field Service Rep Name Role Phone Layne Cai MD Primary Care Provider [phone] Claire Lopez TESTING COORDINATOR Unavailable Tod Perez TESTING COORDINATOR Unavailable Reason for Visit * Reason Onset Date Comments Appointment Related 04/30/2023 Encounter Details Date Type Department Care Team (Late st Contact Info) Description 04/30/2023 Telephone [facility] Hematology & Oncology - [facility] [address] [place], [place] [phone] Erin Barillas MD 111 [facility] Level 2 [place] [address] Appointment Related Social History Tobacco [...] encounter Miscellaneous Notes * Telephone Encounter - Selin Terry - 04/30/2023 0910 EST Informed spouse about change to 05/02 appt to be a zoom. Pt and spouse ok with this and comfortablezooming from home. Email sent documented in this encounter Plan of Treatment Upcoming Encounters Date Type Department Care Team (Late st Contact Info) Description 04/09/2024 16:30 EDT Office Visit [facility] Hematology & Oncology [address] [phone] Erin Barillas MD [address] [place] [address] 2 [place] [phone] 05/18/2024 10:00 EST Office Visit [facility] Rheumatology & Immunology - [address] [phone] Tod Perez NP 111 [facility], [facility] 5 [place] [phone] 06/03/2024 9:00 EST Ancillary Procedure [facility] Cardiology Clinic [address] [place] [phone] 06/03/2024 9:00 EST Office Visit [facility]iology Clinic [address] [place] [address] Claire Lopez NP 130 [facility] 21 [place] [address] documented as of this encounter Visit Diagnoses Not on filedocumented in this encounter Care Teams Field Service Rep Relationship Specialty Start Date End Date Layne Cai MD [address] [place] [address] PCP - General 04/05/20 12/16/23 Claire Lopez NP 130 [facility] [address] [address] Cardiovascular Disease 11/22/20 Tod Perez NP 111 [facility], [facility] 5 [place] [address] Rheumatology 12/28/20 documented as of this encounter
--- OUTSIDE RECORDS SUMMARY | 2024-01-09 01:47 | XMS_ITS | Encounter Summary ---
Author Organization [facility] Address [address] [place] [address] Care Team Providers Care Kalsominer Name Role Phone Layne Cai MD Primary Care Provider [phone] Claire Lopez NP Unavailable [phone] Tod Perez NP Unavailable [phone] Reason for Visit * (Routine) - Closed Specialty Diagnoses / Procedures Referred By Marissa carney Referred To Contact Diagnoses Pacemaker Procedures CARDIAC IMPLANT CHECK - IN CLINIC Claire Lopez NP 130 [facility] [address] [place] [address] Referral ID Status Reason Start Date Expiration Date Visits Re quested Visits Authorized [id number] Closed 05/11/2019 1 1 Encounter Details Date Type Department Care Team (Late st Contact Info) Description 12/04/2023 9:00 EDT Ancillary Procedure [facility] [address] [place] [address] Pacemaker Social History Tobacco Use [...] Info) Description 04/09/2024 16:30 EDT Office Visit [facility] Hematology & Oncology [address] 199401 Erin Barillas MD [address] [place] [address] 2 [place] [phone] 05/18/2024 10:00 EST Office Visit [facility] Rheumatology & Immunology [address] 211331 Tod Perez NP [address] [place] [address] 5 [place] [phone] 06/03/2024 9:00 EST Ancillary Procedure [facility] Cardiology Clinic [address] [place] [address] [phone] 06/03/2024 9:00 EST Office Visit [facility] Cardiology Clinic [address] [place] [address] [phone] Claire Lopez NP [address] [place] [address] MOB-A [address] [place] [phone] documented as of this encounter Procedures Procedure Name Priority Date/Time Associated Diagnosis Comments CARDIAC IMPLANT CHECK - IN CLINIC Routine 12/04/2023 9:21 EDT Pacemaker documented in this encounter Results [...] situ documented in this encounter Care Teams Kalsominer Relationship Specialty Start Date End Date Layne Cai MD [address] [place] [address] PCP - General 04/05/20 12/16/23 Claire Lopez NP [address] [place] [address] [address] [place] [address] Cardiovascular Disease 11/22/20 Tod Perez NP 111 [facility], Level [address] [place] [phone] Rheumatology 12/28/20 documented as of this encounter
--- OUTSIDE RECORDS SUMMARY | 2024-01-09 01:47 | XMS_ITS | Encounter Summary ---
Author Organization Health system Address [address] [place] [address] Care Team Providers Care Residential Assistant Name Role Phone Layne Cai MD Primary Care Provider [phone] Claire Lopez BILLING AUDITOR Unavailable [phone] Tod Perez BILLING AUDITOR Unavailable [phone] Vianey Bocanegra APRN Primary Care Provider [phone] Encounter Details Date Type Department Care Team (Late st Contact Info) Description 12/03/2022 Lab Requisition [facility] Pathology & Laboratory Medicine - [facility] [address] [place] [address] Swetha Tobin, DO [address] [facility] [address] Arthur 1 [place] [address] Encounter for other general examination Social History Tobacco Use Types Packs/Day Years [...] 04/09/2024 16:30 EDT Office Visit [facility] [place] Hematology & Oncology - [address] [phone] Erin Barillas MD [address] [place] [address] 2 [place] [phone] 05/18/2024 10:00 EST Office Visit [facility] Rheumatology & Immunology [address] [phone] Tod Perez NP [address] [place] [address] 5 [place] [phone] 06/03/2024 9:00 EST Ancillary Procedure [facility] Cardiology Clinic [address] [place] [phone] 06/03/2024 9:00 EST Office Visit [facility] Cardiology Clinic [address] [place] [address] Claire Lopez NP [address] [place] [address]-[address] [place] [address] documented as of this encounter Procedures Procedure Name Priority Date/Time Associated Diagnosis Comments SURGICAL PATHOLOGY Today 12/03/2022 11 :26 EDT Encounter for other general examination documented in this encounter Results * SURGICAL PATHOLOGY (12/03/2022 11:26 EDT) Note to Patient The following pathology results have been interpreted by your pathologist and may be available to you before your health provider has had the opportunity to review them. Please allow time for your provider to receive these results and explore management options, if applicable. 12/05/2022 9:10 [facility] Final Diagnosis A. JEJUNUM, PROXIMAL, BIOPSY: - Small intestinal mucosa with no significant diagnostic abnormalities. B. DUODENUM, BULB, BIOPSY: - Duodenal mucosa with no significant diagnostic abnormalities. C. SMALL INTESTINE, POLYP, BIOPSY: - Consistent with benign submucosal lipoma. D. STOMACH, ANTRUM, BIOPSY: - Antral mucosa with reactive (chemical) gastropathy. - Negative for Helicobacter pylori on H&E stained sections. E. STOMACH, GREATER CURVATURE, BIOPSY: - Gastric fundic mucosa with no significant diagnostic abnormalities. - Negative for Helicobacter pylori on H&E stained sections. F. GASTROESOPHAGEAL JUNCTION, 42 CMS, BIOPSY: - Gastric cardiofundic-type mucosa with mild reactive changes. - Negative for intestinal metaplasia and dysplasia. G. ESOPHAGUS, DISTAL AT 42 CMS, BIOPSY: - Squamous mucosa with no significant diagnostic abnormalities. H. COLON, 30 CMS, POLYP, BIOPSY: - Hyperplastic polyp. 12/05/2022 9:10 [facility] Attestation By the signature below, the attending physician certifies that they have 1) personally conducted a gross and/or microscopic examination of the described specimen(s), and/or personally interpreted the results of laboratory testing of the described specimen(s), and 2) personally rendered or confirmed the above diagnosis. 12/05/2022 9:10 [facility] at 0910 Clinical History Barretts esophagus, anemia, 1 cm HH, CE-ileum, polyp 3 cm 12/05/2022 9:10 [facility] Gross Description A. Received in formalin labelled with proper patient identification (initials C, J) and proximal jejunum Bx is a single martínez soft tissue fragment (0.4 x 0.3 x 0.2 cm). Submitted intact in A1. B. Received in formalin labelled with proper patient identification (initials C, J) and duodenum bulb Bx is a single martínez focally brown soft tissue fragment (0.5 x 0.3 x 0.2 cm). Submitted intact in B1. C. Received in formalin labelled with proper patient identification (initials C, J) and polyp in D1 are 2 pale martínez focally red-brown soft tissue fragments (0.4 x 0.2 x 0.2 cm and 0.4 x 0.3 x 0.2 cm). Entirely submitted in C1. D. Received in formalin labelled with proper patient identification (initials C, J) and antrum Bx is a single pale white focally martínez soft tissue fragment (0.5 x 0.4 x 0.2 cm). Submitted intact in D1. E. Received in formalin labelled with proper patient identification (initials C, J) and greater curve is a single martínez focally brown soft tissue fragment (0.8 x 0.2 x 0.2 cm). Submitted intact in E1. F. Received in formalin labelled with proper patient identification (initials C, J) and GE junction Bx at 40 cm are 2 pale martínez focally dark brown soft tissue fragments (0.4 x 0.3 x 0.2 cm and 0.5 x 0.3 x 0.1 cm). Entirely submitted in F1. G. Received in formalin labelled with proper patient identification (initials C, J) and distal esophagus at 42 cm Bx are 2 pale white focally martínez soft tissue fragments (0.3 x 0.2 x 0.1 cm and 0.5 x 0.2 x 0.1 cm). Entirely submitted in G1. H. Received in formalin labelled with proper patient identification (initials C, J) and colon polyp at 30 cm is a single pale martínez focally brown soft tissue fragment (0.4 x 0.3 x 0.2 cm). Submitted intact in H1. Sudhir Khan 12/04/2022 9:53 12/05/2022 9:10 [facility] Performing Lab [facility] 9:10 [facility] Scanned Images 12/05/2022 9:10 [facility] Tissue ENTIRE COLON / Unknown 12/03/2022 11:26 EDT 12/03/2022 17:57 EDT Tissue specimen (specimen) STRUCTURE OF SMALL INTESTINE / Unknown 12/03/2022 11:26 EDT 12/03/2022 17:57 EDT Tissue specimen (specimen) STRUCTURE OF SMALL INTESTINE / Unknown 12/03/2022 11:26 EDT 12/03/2022 17:57 EDT Tissue specimen (specimen) STOMACH STRUCTURE / Unknown 12/03/2022 11:26 EDT 12/03/2022 17:57 EDT Tissue specimen (specimen) STOMACH STRUCTURE / Unknown 12/03/2022 11:26 EDT 12/03/2022 17:57 EDT Tissue specimen (specimen) ESOPHAGEAL STRUCTURE / Unknown 12/03/2022 11:26 EDT 12/03/2022 17:57 EDT Tissue specimen (specimen) ESOPHAGEAL STRUCTURE / Unknown 12/03/2022 11:26 EDT 12/03/2022 17:57 EDT Tissue specimen (specimen) COLON STRUCTURE / Unknown 12/03/2022 11:26 EDT 12/03/2022 17:57 EDT Swetha Tobin DO PATHOLOGY ORDERABLES Performing Organization Address [facility]/State/[facility] Co de Phone Number [facility] [address] [place] [address] documented in this encounter Visit Diagnoses Diagnosis Encounter for other general examination documented in this encounter Care Teams Residential Assistant Relationship Specialty Start Date End Date Layne Cai MD [address] [place] [phone] PCP - General 04/05/20 12/16/23 Vianey Bocanegra APRN 26 [facility] 185 [place] [address] PCP - General 12/17/23 Claire Lopez NP [address] [place] [address] [address] [place] [phone] Cardiovascular Disease 6/9/21 Tod Perez NP 111 [facility], Level [address] [place] [address] Rheumatology 12/28/20 documented as of this encounter
--- OUTSIDE RECORDS SUMMARY | 2024-01-09 01:47 | XMS_ITS | Encounter Summary ---
Author Organization [facility] Address [address] [place] [address] Care Team Providers Care Wharf Attendant Name Role Phone Layne Cai MD Primary Care Provider [phone] Claire Lopez REGIONAL PROPERTY MANAGER Unavailable [phone] Tod Perez REGIONAL PROPERTY MANAGER Unavailable [phone] Vianey Bocanegra APRN Primary Care Provider [phone] Encounter Details Date Type Department Care Team (Late st Contact Info) Description 02/05/2023 Orders Only [facility] Cardiology Clinic [address] [place] [address] Rebeka Bell, TRAM Sinus node dysfunction ([facility]) Social History Tobacco Use Types Packs/Day Years [...] Info) Description 04/09/2024 16:30 EDT Office Visit [facility] Hematology & Oncology [address] [address] Erin Barillas MD [address] [place] [address], [facility] 2 [place] [phone] 05/18/2024 10:00 EST Office Visit [facility] Rheumatology & Immunology [address] [phone] Tod Perez NP [address] [place] [address], [facility] 5 [place] [phone] 06/03/2024 9:00 EST Ancillary Procedure [facility] Cardiology Clinic [address] [place] [address] [phone] 06/03/2024 9:00 EST Office Visit [facility] Cardiology Clinic [address] [place] [phone] Claire Lopez NP [address] [place] [address] MOB-A [address] [place] [phone] documented as of this encounter Procedures Procedure Name Priority Date/Time Associated Diagnosis Comments CARDIAC IMPLANT CHECK - REMOTE MONITOR Routine 02/05/2023 8:38 EDT Sinus node dysfunction ([facility]) documented in this encounter Results * CARDIAC IMPLANT CHECK - REMOTE - PACEMAKER (02/05/2023 8:38 EDT) Anatomical Region Laterality Modality Device Narrative 02/07/2023 8:40 EDT Remote pacemaker interrogation shows normal device function, ample generator. No arrhythmias. See scanned documents for full details. Procedure Note Claire Lopez NP - 02/07/2023 Remote pacemaker interrogation shows normal device function, amplegenerator. No arrhythmias. See scanned documents for full details. Adrien Hackett NP CV IMPLANTABLE CARDI AC DEVICE documented in this encounter Visit Diagnoses Diagnosis Sinus node dysfunction ([facility]) Sinoatrial node dysfunction documented in this encounter Care Teams Wharf Attendant Relationship Specialty Start Date End Date Layne Cai MD [address] [place] [address] PCP - General 04/05/20 12/16/23 Vianey Bocanegra APRN 26 [facility] 185 [place] [address] PCP - General 12/17/23 Claire Lopez NP [address] [place] [address] [address] [place] [address] Cardiovascular Disease 11/22/20 Tod Perez NP [address] [place] [address], [facility] 5 [place] [address] Rheumatology 12/28/20 documented as of this encounter
--- OUTSIDE RECORDS SUMMARY | 2024-01-09 01:47 | XMS_ITS | Encounter Summary ---
Author Organization [facility] Address [address] [place] [address] Care Team Providers Care Operator Prefinish Name Role Phone Layne Cai MD Primary Care Provider [phone] Claire Lopez YOUTH LIAISON OFFICER Unavailable [phone] Tod Perez YOUTH LIAISON OFFICER Unavailable [phone] Reason for Visit * Reason Onset Date Comments Results 04/21/2023 Encounter Details Date Type Department Care Team (Late st Contact Info) Description 04/21/2023 Telephone [facility] Cancer Center Hematology & Oncology - [facility] [address] [place] [address] Erin Barillas MD 111 [facility], Level 2 [place] [address] Results Social History Tobacco Use [...] * Telephone Encounter - Augustina Salazar - 04/21/2023 1544 EST LABS ENTERED FROM [facility]. Augustina Salazar 04/21/2023 15:44 documented in this encounter Plan of Treatment Upcoming Encounters Date Type Department Care Team (Late st Contact Info) Description 04/09/2024 16:30 EDT Office Visit [facility] Hematology & Oncology - [address] [phone] Erin Barillas MD [address] [place] [address] 2 [place] [phone] 05/18/2024 10:00 EST Office Visit [facility] Rheumatology & Immunology - [address] [phone] Tod Perez NP [address] [place] [address] 5 [place] [phone] 06/03/2024 9:00 EST Ancillary Procedure [facility] [address] [place] [address] [phone] 06/03/2024 9:00 EST Office Visit [facility] [address] [place] [address] [phone] Claire Lopez NP [address] [place] [address]-[address] [place] [address] documented as of this encounter Procedures Procedure Name Priority Date/Time Associated Diagnosis Comments COMPREHENSIVE METABOLIC PANEL (ONCOLOGY USE ONLY-INC MG) Routine 04/18/2023 COMPLETE BLOOD COUNT AND DIFFERENTIAL Routine 04/18/2023 documented in this encounter Results * (ABNORMAL) COMPLETE BLOOD COUNT AND DIFFERENTIAL (04/18/2023) WBC, External 11.12(A) 4.4 - 10.8 [facility] RBC, External 5.80(A) 4.36 - 5.78 [facility] Hemoglobin, External 12.3(A) 13.5 - 17.5 % [facility] HCT, External 44.4 [facility] MCV, External 77(A) 80 - 95 [facility] MCH, External 21.2(A) 27.0 - 33.0 g/dL [facility] MCHC, External 27.7(A) 32.0 - 36.0 g/dL [facility] PLT, External 320 [facility] RDW-CV, External 19.9(A) 11.8 - 14.1 [facility] Neutrophils, External 71.0 [facility] Lymphocytes, External 19.0 [facility] Monocytes, External 3.0 [facility] Eosinophils, External 3.0 [facility] Basophils, External 0.0 [facility] ABS Neutrophils, External 7.90(A) 1.2 - 6.7 [facility] ABS Lymphs, External 2.56 [facility] ABS Monocytes, External 0.33 [facility] ABS Eosinophils, External 0.33 [facility] ABS Basophils, External 0.00 [facility] Blood VENOUS BLOOD / Unknown 04/18/2023 Historical Provider PACKAGES & DNA IA OBE ORDERABLES Performing Organization Address [facility] de Phone Number [facility] * (ABNORMAL) COMPREHENSIVE METABOLIC PANEL (ONCOLOGY USE ONLY-INC MG) (04/18/2023) Calcium, External 9.4 mg/dL [facility] CO2, External 26.7 mmol/L [facility] AST, External 16 U/L [facility] ALT, External 19 [facility] Bilirubin, Total, External 0.3 [facility] Creatinine, External 1.3 mg/dL [facility] Calculated Calcium, External [facility] Anion Gap, External [facility] Total Protein, External 7.7 [facility] Potassium, External 4.4 mmol/L [facility] Total Alkaline Phosphatase, External 81 [facility] Albumin, External 4.2 g/dL [facility] BUN, External 21(A) 7 - 18 mg/dL [facility] GFR, Calculated, External 55.88 [facility] Fasting?, External [facility] Chloride, External 103 mmol/L [facility] Glucose, Serum, External 137(A) 74 - 105 mg/dL [facility] Sodium, External 139 mmol/L [facility] Magnesium, External [facility] Blood VENOUS BLOOD / Unknown 04/18/2023 Historical Provider CHEMISTRY & BLOOD GAS ORDERABLES [facility] documented in this encounter Visit Diagnoses Not on filedocumented in this encounter Care Teams Operator Prefinish Relationship Specialty Start Date End Date Layne Cai MD [address] [place] [phone] PCP - General 04/05/20 12/16/23 Claire Lopez NP [address] [place] [address]A [address] [place] [address] Cardiovascular Disease 11/22/20 Tod Perez NP 111 [facility], Level 5 [place] [phone] Rheumatology 12/28/20 documented as of this encounter
--- OUTSIDE RECORDS SUMMARY | 2024-01-09 01:47 | XMS_ITS | Encounter Summary ---
Author Organization [facility] Address [address] [place] [address] Care Team Providers Care Range Management Specialist Name Role Phone Layne Cai MD Primary Care Provider [phone] Claire Lopez TRAVELING ENGINEER Unavailable [phone] Tod Perez TRAVELING ENGINEER Unavailable [phone] Reason for Visit * Reason Comments Follow-up Encounter Details Date Type Department Care Team (Late st Contact Info) Description 03/14/2023 14:30 EDT Office Visit [facility] Cancer Center Hematology & Oncology - [address] [phone] Erin Barillas MD 111 [facility], Level 2 [place] [address] PV (polycythemia vera) ([facility]) (Primary Dx); Iron deficiency anemia due to [...] Sign Reading Time Taken Comments Blood Pressure 147/71 03/14/2023 1415 EDT Pulse 68 03/14/2023 1415 EDT manual r egular Temperature 36.2 ??C (97.1 ??F) 03/14/2023 1415 EDT Respiratory Rate 16 03/14/2023 1415 EDT Oxygen Saturation 99% 03/14/2023 1415 EDT Inhaled Oxygen Concentration - - Weight 101.2 kg (223 lb) 03/14/2023 1415 EDT Height 181.4 cm (5' 11.42) 03/14/2023 1415 EDT Body Mass Index 30.74 03/14/2023 1415 EDT documented in this encounter Functional Status [...] Progress Notes * Erin Barillas MD - 03/14/2023 1430 EDT DATE: 03/14/23 HEMATOLOGIC HISTORY: Mr. Villanueva is a 77 [...] to the clinic today with his spouse. Continues to take Hydrea 500mg daily without any issues. No specific concerns today. Does report some fatigue. Last phlebotomy was 3 weeks ago REVIEW OF SYSTEMS: The remainder of a 10-point review of systems, as filled out on the patient's symptom report form, is otherwise negative. SOCIAL HISTORY: Retired. Worked for the [employer]. Former smoker with 20 pack year smoking history, quit 40 years ago. 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 Family history: No family history of cancer, thrombosis or other blood disorders that patient is aware of. PHYSICAL EXAM: General: Well- appearing, in no acute distress. Alert and oriented to person, place, date and time. HEENT: Normocephalic. Labs: Reviewed in [facility] ASSESSMENT: Praneeth Villanueva is a [...] Hct of <45 2. Recommend repeat labs in April - CBC diff, CMP, Ferritin 3. Age appropriate cancer screening 4. Covid, Flu and RSV vaccines recommended Follow up with me in April after labs Erin Barillas MD I spent 40 minutes related to this patient's care today, which includes time with the patient, timereviewing medical records and reviewing imaging reports and laboratory results, time updating the chart information, and time composing this note. documented in this encounter Plan of Treatment Upcoming Encounters Date Type Department Care Team (Late st Contact Info) Description 04/09/2024 16:30 EDT Office Visit [facility] Hematology & Oncology - [address] [phone] Erin Barillas MD 111 [facility], [facility] 2 [place] [phone] 05/18/2024 10:[address] [facility] Rheumatology & Immunology - [address] [phone] Tod Perez NP 111 [facility], [facility] 5 [place] [phone] 06/03/2024 9:00 EST Ancillary Procedure [facility] Cardiology Clinic [address] [place] [address] [phone] 06/03/2024 9:00 EST Office Visit [facility] Cardiology Clinic [address] [place] [address] Claire Lopez NP [address] [place] [phone] documented as of this encounter Visit Diagnoses Diagnosis PV (polycythemia vera) ([facility])- Primary Polycythemia vera Iron deficiency anemia due to chronic blood loss Iron deficiency anemia secondary to blood loss (chronic) documented in this encounter Historical Medications * This list may reflect changes made after this encounter. Medication Sig Dispensed Refills Start Date End Date ergocalciferol, vitamin D2, (VITAMIN D ORAL) Take 2,000 mg by mouth daily. added in this encounter Care Teams Range Management Specialist Relationship Specialty Start Date End Date Layne Cai MD [address] [place] [phone] PCP - General 04/05/20 12/16/23 Claire Lopez NP [address] [place] [address] [phone] Cardiovascular Disease 11/22/20 Tod Perez NP [address] [place] [address], [address] 5 [place] [phone] Rheumatology 12/28/20 documented as of this encounter
--- OUTSIDE RECORDS SUMMARY | 2024-01-09 01:47 | XMS_ITS | Referral Summary ---
Author Organization [facility] Address [address] [place] [address] Care Team Providers Care Concrete Rod Buster Name Role Phone Claire Lopez PROJECT MANAGEMENT ADVISOR Unavailable [phone] Tod Perez PROJECT MANAGEMENT ADVISOR Unavailable [phone] Vianey Bocanegra APRN Primary Care Provider [phone] Encounters Date Type Department Care Team Description 12/17/[address] [facility] Rheumatology & Immunology [facility] [address] [place], [place] [phone] Tod Perez NP Appointment Related (5 MO Follow Up) 12/17/2023 8:[address] [facility] Rheumatology & Immunology [facility] [address] [place], [place] [phone] Tod Perez NP Inflammatory arthritis (Primary Dx); Encounter for long-term (current) use of medications; Osteopenia, unspecified location 12/15/[address] 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 Rheumatology & Immunology [address] [phone] Tod Perez NP Appointment Related 10/13/2023 16:20 EDT Telemedicine [facility] Hematology & Oncology [address] [phone] Reshma Hilario NP PV (polycythemia vera) ([facility]) (Primary Dx) from Last 3 Months Allergies Active Allergy Reactions Criticality Noted Date [...] t be different from the original. 2021-10-17 [facility] Verbal DEIDRE: permission to speak with Augustina Villanueva (,) Rebeka Villanueva (daughter.) Problem Noted Date Diagnosed Date PV (polycythemia vera) ([facility]) 05/02/2021 Coronary artery disease invo lving rincon coronary artery of rincon heart without angina pectoris 03/02/2021 Last Assessment & Plan: Non flow limiting disease observed on [facility] 11/2020 involving the LAD, D1, LCx and RCA. Currently without CP symptoms. Previously developed dizziness while on imdur therefore discontinued this medication. Exertional chest pain 11/15/2020 Overview: Added automatically from request for surgery [id number] History of seronegative inflammatory arthritis 0 09/24/2016 Facial rash 09/24/2016 Left hand weakness 09/15/2013 Overview: Currently being worked up Light headed 04/09/2012 Sick sinus syndrome ([facility]) 04/09/2012 Chest pain 04/07/2012 Overview: Resolved. Cardiac [...] Assessment & Plan: Continue statin. Enlarged prostate Immunizations Name Administration Dates Next Due Covid-19 [...] Polysaccharide (PPSV23) Vaccine (PNEUMOVAX-23) =>2YO SQ/IM 12/05/2008 Social History Tobacco Use Types Packs/Day Years [...] 13:17 EST Sexual Orientation Not on file Last Filed Vital Signs [...] Body Mass Index 31.37 12/04/2023 0853 EDT Functional Status Functional Status Response Date of [...] concentrating, remembering, or making decisions? No 11/24/2017 Plan of Treatment Upcoming Encounters Date Type Department Care Team (Late st Contact Info) Description 04/09/2024 16:30 EDT Office Visit [facility] Hematology & Oncology - [address] [phone] Erin Barillas MD 111 [facility], [facility] 2 [place] [phone] 05/18/2024 10:[address] [facility] Rheumatology & Immunology - [address] [phone] Tod Perez NP 111 [facility], [facility] 5 [place] [address] 06/03/2024 9:00 EST Ancillary Procedure [facility] Cardiology Clinic [address] [place] [phone] 06/03/2024 9:00 EST Office Visit [facility] Cardiology Clinic [address] [place] [address] [phone] Claire Lopez NP [address] [place] [address] MOB[address]A [address] [place] [address] Procedures Procedure Name Priority Date/Time Associated Diagnosis [...] Lopez NP CV IMPLANTABLE CARDI AC DEVICE from Last 3 Months Advance Directives For more information, please contact: [phone] * Full Code (Latest Code Status on [...] Comments 04/08/2012 0:29 04/09/2012 14:03 Care Teams Concrete Rod Buster Relationship Specialty Start Date End Date Vianey Bocanegra APRN 26 [facility] 185 [place] [address] PCP - General 12/17/23 Claire Lopez NP [address] [place] [address] [address] Cardiovascular Disease 11/22/20 Tod Perez NP 111 [facility], [facility] 5 [place] [address] Rheumatology 12/28/20
--- OUTSIDE RECORDS SUMMARY | 2024-01-09 01:48 | XMS_ITS | Encounter Summary ---
Author Organization [facility] Address [address] [place] [address] Care Team Providers Care Business Analysis Analyst Name Role Phone Layne Cai MD Primary Care Provider [phone] Claire Lopez CONE TRUCKER Unavailable [phone] Tod Perez CONE TRUCKER Unavailable [phone] Reason for Visit * Reason Onset Date Comments Appointment Related 10/10/2022 Encounter Details Date Type Department Care Team (Late st Contact Info) Description 10/10/2022 Telephone [facility] Cancer Center Hematology & Oncology - [place] [address] [place] [address] Erin Barillas MD 111 [facility] Level 2 [place] [address] Appointment Related Social History Tobacco Use Types Packs/Day Years Used Date Smoking Tobacco: Former Cigarettes 3 20 0 09/15/1960 - 09/15/1980 Cigars Passive Smoke Exposure: Never [...] visiting a doctor's office or shopping? No 06/19/2021 Cognitive Status Response Date of Assessm ent Because of a physical, menta l, or emotional condition, does this person have serious difficulty concentrating, remembering, or making decisions? No 11/24/2017 documented as of this encounter Miscellaneous Notes * Telephone Encounter - Karina Bustamante - 10/10/2022 1605 EDT 10/24 appt moved to 4:30 documented in this encounter Plan of Treatment Upcoming Encounters Date Type Department Care Team (Late st Contact Info) Description 04/09/2024 16:30 EDT [facility] - [address] [phone] Erin Barillas MD [address] [place] [address] 2 [place] [phone] 05/18/2024 10:00 EST Office Visit [facility] Rheumatology & Immunology - [address] [phone] Tod Perez NP [address] [place] [address] 5 [place] [phone] 06/03/2024 9:00 EST Ancillary Procedure [facility] Cardiology Clinic [address] [place] [phone] 06/03/2024 9:00 EST Office Visit [facility] Cardiology Clinic [address] [place] [address] [phone] Claire Lopez NP [address] [place] [address]-A [address] [place] [address] documented as of this encounter Visit Diagnoses Not on filedocumented in this encounter Care Teams Business Analysis Analyst Relationship Specialty Start Date End Date Layne Cai MD [address] [place] [phone] PCP - General 04/05/20 12/16/23 Claire Lopez NP 130 [facility] [address] [place] [address] Cardiovascular Disease 11/22/20 Tod Perez NP 111 [facility], Level [address] [place] [address] Rheumatology 12/28/20 documented as of this encounter
--- OUTSIDE RECORDS SUMMARY | 2024-01-09 01:48 | XMS_ITS | Encounter Summary ---
Author Organization [facility] Address [address] [place] [address] Care Team Providers Care Washery Engineer Name Role Phone Layne Cai MD Primary Care Provider [phone] Claire Lopez EVALUATION ADVISOR Unavailable [phone] Tod Perez NP Unavailable [phone] Reason for Visit * Reason Onset Date Comments Other 09/05/2021 Disconnected car elink box Encounter Details Date Type Department Care Team (Late st Contact Info) Description 09/05/2021 Telephone [facility] Cardiology Clinic [address] [place] [address] Claire Lopez NP 130 [facility] [address] [place] [address] Other (Disconnected carelink box) Social History Tobacco Use Types Packs/Day Years Used Date Smoking Tobacco: Former Cigarettes 3 20 0 09/15/1960 - 09/15/1980 Cigars Smokeless Tobacco: Never Comments:Quit >30 years ago [...] encounter Miscellaneous Notes * Telephone Encounter - Ryann Venegas MA - 10/02/2021 1201 EDT Pt's carelink device is pluged back in and working. Pt has an appt in October with Claire and then a remote check scheduled on 01/21/22 * Telephone Encounter - Ryann Venegas MA - 09/05/2021 [...] asked pt to call the office with anyquestions. documented in this encounter Plan of Treatment Upcoming Encounters Date Type Department Care Team (Late st Contact Info) Description 04/09/2024 16:30 EDT Office Visit [facility] Hematology & Oncology - [address] [phone] Erin Barillas MD [address] [place] [address], Level [address] [place] [phone] 05/18/2024 10:[address] [facility] Rheumatology & Immunology - [address] [phone] Tod Perez NP [address] [place] [phone] 06/03/2024 9:00 EST Ancillary Procedure [facility] Cardiology Clinic [address] [place] [address] 06/03/2024 9:00 EST Office Visit [facility]iology Clinic [address] [place] [address] Claire Lopez NP [address] [place] [phone] documented as of this encounter Visit Diagnoses Not on filedocumented in this encounter Care Teams Washery Engineer Relationship Specialty Start Date End Date Layne Cai MD [address] [place] [phone] PCP - General 04/05/20 12/16/23 Claire Lopez NP [address] [place] [phone] Cardiovascular Disease 11/22/20 Tod Perez EVALUATION ADVISOR [address] [place] [phone] Rheumatology 12/28/20 documented as of this encounter
--- OUTSIDE RECORDS SUMMARY | 2024-01-09 01:48 | XMS_ITS | Encounter Summary ---
Author Organization [facility] Address [address] [place] [address] Care Team Providers Care Special Effects Artist Name Role Phone Layne Cai MD Primary Care Provider [phone] Claire Lopez LAYOUT ARTIST Unavailable [phone] Tod Perez LAYOUT ARTIST Unavailable [phone] Encounter Details Date Type Department Care Team (Late st Contact Info) Description 11/05/2021 Abstract [facility] Rheumatology & Immunology - [facility] [address] [place], [place] [phone] Tod Perez, LAYOUT ARTIST [address] [facility], [address] [place] [address] Social History Tobacco Use Types [...] EDT Office Visit [facility] Hematology & Oncology - [address] [phone] Erin Barillas MD [address] [place] [address], [facility] [address] [place] [phone] 05/18/2024 10:00 EST Office Visit [facility] Rheumatology & Immunology [address] [phone] Tod Perez NP [address] [place] [address], [facility] [address] [place] [phone] 06/03/2024 9:00 EST Ancillary Procedure [facility] [address] [place] [phone] 06/03/2024 9:00 EST Office Visit [facility] [address] [place] [address] [phone] Claire Lopez NP [address] [place] [address] [address] [place] [address] documented as of this encounter Procedures Procedure Name Priority Date/Time Associated Diagnosis Comments COMPLETE BLOOD COUNT AND DIFFERENTIAL Routine 11/05/2021 MAGNESIUM Routine 11/05/2021 COMPREHENSIVE METABOLIC PANEL (CMP) Routine 11/05/2021 documented in this encounter Results * MAGNESIUM (11/05/2021) [facility] Magnesium, External 2.5 [facility] Comment:High Blood VENOUS BLOOD / Unknown 11/05/2021 Tod Perez NP CHEMISTRY & BLOOD G ORDERABLES Performing Organization Address City/[facility]/ZIP Co de Phone Number [facility] * COMPLETE BLOOD COUNT AND DIFFERENTIAL (11/05/2021) [facility] WBC, External 8.60 [facility] RBC, External 5.72 [facility] Hemoglobin, External 13.0 [facility] Comment:Low HCT, External 46.0 [facility] MCV, External 80 [facility] MCH, External 22.7 [facility] Comment:Low MCHC, External 28.3 [facility] Comment:Low PLT, External 291 [facility] RDW-CV, External 18.3 [facility] Comment:High Neutrophils, External 73.6 [facility] Lymphocytes, External 17.2 [facility] Monocytes, External 7.8 [facility] Eosinophils, External 0.0 [facility] Basophils, External 0.8 [facility] ABS Neutrophils, External 6.33 [facility] ABS Lymphs, External 1.48 [facility] ABS Monocytes, External 0.67 [facility] ABS Eosinophils, External 0.00 [facility] ABS Basophils, External 0.07 [facility] Blood VENOUS BLOOD / Unknown 11/05/2021 Tod Perez NP PACKAGES & DNA PROB E ORDERABLES Performing Organization Address [facility]/ZIP Co de Phone Number [facility] * COMPREHENSIVE METABOLIC PANEL (CMP) (11/05/2021) GFR, Calculated, External 53.39 [facility] Glucose, Serum, External 128 [facility] Comment:High Albumin, External 4.2 [facility] Total Alkaline Phosphatase, External 97 [facility] ALT, External 19 [facility] AST, External 15 [facility] BUN, External 23 [facility] Comment:High Calculated Calcium, External [facility] Calcium, External 8.9 [facility] Chloride, External 106 [facility] CO2, External 26.3 [facility] Creatinine, External 1.3 [facility] Fasting?, External [facility] Potassium, External 4.9 [facility] Sodium, External 140 [facility] Total Protein, External 7.1 [facility] Bilirubin, Total, External 0.5 [facility] Blood VENOUS BLOOD / Unknown 11/05/2021 Tod Perez NP CHEMISTRY & BLOOD G ORDERABLES [facility] documented in this encounter Visit Diagnoses Not on filedocumented in this encounter Care Teams Special Effects Artist Relationship Specialty Start Date End Date Layne Cai MD [address] [place] [phone] PCP - General 04/05/20 12/16/23 Claire Lopez NP [address] [place] [address] [address] [place] [phone] Cardiovascular Disease 11/22/20 Tod Perez NP [address] [facility], [address] [place] [address] Rheumatology 12/28/20 documented as of this encounter
--- OUTSIDE RECORDS SUMMARY | 2024-01-09 01:48 | XMS_ITS | Encounter Summary ---
Author Organization [facility] Address [address] [place] [address] Care Team Providers Care Intercell Connector Placer Name Role Phone Layne Cai MD Primary Care Provider [phone] Claire Lopez WAREHOUSE PERSON Unavailable [phone] Tod Perez WAREHOUSE PERSON Unavailable [phone] Reason for Visit * Reason Onset Date Comments Coordination Of Care 07/30/2021 Encounter Details Date Type Department Care Team (Late st Contact Info) Description 07/30/2021 Telephone [facility] Rheumatology & Immunology - [facility] [address] [place] [address] Tod Perez, WAREHOUSE PERSON 111 [facility], [address] [place] [address] Coordination Of Care Social History Tobacco Use Types Packs/Day Years [...] encounter Miscellaneous Notes * Telephone Encounter - Della Ceron RN - 07/31/2021 1505 EST I faxed over new order with correct ICD-10 code to [facility] Radiology. * Telephone Encounter - Tod Perez NP - 07/31/2021 1245 EST Spoke to [facility] [id number] was accepted. Please bipin corrected order on cover sheet and fax new order. * Telephone Encounter - Gisele Elliott - 07/30/2021 1336 EST [facility] is calling to advise that Medicare won't cover a DXA for this patient with the diagnosis codesgiven on the referral. They need something showing he has fractures. It won't cover his right inferior pubic ramus fracture (S32.5) either. Please call back [facility] radiology to advise. documented in this encounter Plan of Treatment Upcoming Encounters Date Type Department Care Team (Late st Contact Info) Description 04/09/2024 16:30 EDT Office Visit [facility] Hematology [place] [address] Erin Barillas MD [address] [place] [address], [address] [place] [phone] 05/18/2024 10:00 EST Office Visit [facility] Rheumatology & Immunology - [address] [phone] Tod Perez WAREHOUSE PERSON [address] [place] [address] 5 [place] [phone] 06/03/2024 9:[address] [facility] [address] [place] [phone] 06/03/2024 9:[address] [facility] [address] [place] [phone] Claire Lopez NP [address] [place] [address] [place] [address] [phone] documented as of this encounter Visit Diagnoses Diagnosis Pathological fracture of other site due to other disease, initial encounter- Primary Screening for osteoporosis Special screening for osteoporosis History of recent steroid use Inflammatory arthritis Unspecified inflammatory polyarthropathy documented in this encounter Care Teams Intercell Connector Placer Relationship Specialty Start Date End Date Layne Cai MD [address] [place] [phone] PCP - General 04/05/20 12/16/23 Claire Lopez NP [address] [place] [address] [place] [address] [phone] Cardiovascular Disease 11/22/20 Tod Perez WAREHOUSE PERSON [address] [place] [address] 5 [place] [phone] Rheumatology 12/28/20 documented as of this encounter
--- OUTSIDE RECORDS SUMMARY | 2024-01-09 01:48 | XMS_ITS | Encounter Summary ---
Author Organization [facility] Address [address] [place] [address] Care Team Providers Care Direct Customer Service Representative Name Role Phone Layne Cai MD Primary Care Provider [phone] Claire Lopez HOME SUPERVISOR Unavailable [phone] Tod Perez HOME SUPERVISOR Unavailable [phone] Reason for Visit * Reason Comments Follow-up Encounter Details Date Type Department Care Team (Late st Contact Info) Description 10/24/2022 16:30 EDT Office Visit [facility] Hematology & Oncology - [facility] [address] [place], [place] [phone] Erin Barillas MD 111 [facility], [address] [place] [address] Microcytosis (Primary Dx) Social History Tobacco Use [...] Progress Notes * Erin Barillas MD - 10/24/2022 1630 EDT DATE: 10/29/22 HEMATOLOGIC HISTORY: Mr. Villanueva is a 77 [...] without any issues. No specific concerns today. REVIEW OF SYSTEMS: The remainder of a 10-point review of systems, as filled out on the patient's symptom report form, is otherwise negative. SOCIAL HISTORY: Retired. Worked for the [employer]. Former smoker with 20 pack year smoking history, quit 40 years ago. 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 Family history: No family history of cancer, thrombosis or other blood disorders that patient is aware of. PHYSICAL EXAM: Vitals were not performed for this video visit. General: Well- appearing, in no acute distress. Alert and oriented to person, place, date and time. HEENT: Normocephalic. Resp: Lungs clear to auscultation Ext: No edema. Skin: Left upper extremity skin lesion noted. Labs: Reviewed in Epic ASSESSMENT: Praneeth Villanueva is a 77 y.o. [...] of absolute iron deficiency and control counts. However, he is due to have an EGD with Dr. Maxine Rashid in summer 2022. Would recommend doing colonoscopy at the same time to rule out a secondary cause of iron deficiency. Plan: 1. Continue Hydrea 500mg daily. Goal Hct of <45 2. Colonoscopy with EGD 3. Up to date with annual dermatologic evaluation 4. Up to date with COVID vaccination series and booster. He is thinking about getting the 4th booster. RTC in 3 months Erin Barillas MD I spent 45 minutes related to this patient's care today, which includes time with the patient, timereviewing medical records and reviewing imaging reports and laboratory results, time updating the chart information, and time composing this note. documented in this encounter Plan of Treatment Upcoming Encounters Date Type Department Care Team (Late st Contact Info) Description 04/09/2024 16:30 EDT Office Visit [facility] Hematology & Oncology - [address] [phone] Erin Barillas MD [address] [place] [address], [facility] 2 [place] [phone] 05/18/2024 10:00 EST Office Visit [facility] Rheumatology & Immunology - [address] [phone] Tod Perez NP 111 [facility], [address] [place] [phone] 06/03/2024 9:00 EST Ancillary Procedure [facility] [address] [place], [place] [phone] 06/03/2024 9:00 EST Office Visit [facility] [address] [place], [place] 140[address] Claire Lopez NP [address] [facility] [address] [place] [address] documented as of this encounter Procedures Procedure Name Priority Date/Time Associated Diagnosis Comments FERRITIN Add-On 10/24/2022 14:03 EDT Microcytosis documented in this encounter Results * (ABNORMAL) FERRITIN (10/24/2022 14:03 EDT) Ferritin 8(L) 22 - 322 ng/mL 10/24/2022 18:59 EDT [facility] Blood VENOUS BLOOD / Unknown Venipuncture / Unknown 10/24/2022 14:03 EDT 10/24/2022 14:11 EDT Erin Barillas MD CHEMISTRY & BLOOD GA S ORDERABLES [facility] [address] [place] [address] documented in this encounter Visit Diagnoses Diagnosis Microcytosis- Primary Other abnormality of red blood cells documented in this encounter Discontinued Medications Medication Sig Discontinue Reason Start Date End Da te finasteride (PROSCAR) 5 mg tablet Take 5 mg by mouth daily. 10/24/2022 documented as of this encounter Care Teams Direct Customer Service Representative Relationship Specialty Start Date End Date Layne Cai MD [address] [place] [phone] PCP - General 04/05/20 12/16/23 Claire Lopez NP [address] [place] [address] [address] [place] [phone] Cardiovascular Disease 11/22/20 Tod Perez NP [address] [place] [address], [address] [place] [address] Rheumatology 12/28/20 documented as of this encounter
--- OUTSIDE RECORDS SUMMARY | 2024-01-09 01:48 | XMS_ITS | Encounter Summary ---
Author Organization [facility] Address [address] [place] [address] Care Team Providers Care Rotary Surface Grinder Name Role Phone Layne Cai MD Primary Care Provider [phone] Claire Lopez LEARNING DISABLED TEACHER Unavailable [phone] Tod Perez NP Unavailable [phone] Reason for Visit * Reason Comments Follow-up 5-6 month follow up, inflammatory arthritis Encounter Details Date Type Department Care Team (Late st Contact Info) Description 05/30/2022 11:00 EST Office Visit [facility] Rheumatology & Immunology - [address] [phone] Tod Perez, LEARNING DISABLED TEACHER [address] [place] [address], Level 5 [place] [address] Inflammatory arthritis (Primary Dx); Encounter for [...] Sign Reading Time Taken Comments Blood Pressure 144/69 05/30/2022 1057 EST Pulse 78 05/30/2022 1057 EST Temperature - - Respiratory Rate - - Oxygen Saturation - - Inhaled Oxygen Concentration - - Weight 98.9 kg (218 lb) 05/30/2022 1057 EST Height 181 cm (5' 11.26) 05/30/2022 1057 EST Body Mass Index 30.18 05/30/2022 1057 EST documented in this encounter Functional Status [...] * Patient Instructions* Tod Perez NP - 05/30/2022 11:00 EST Continue current meds. Labs every 3-4 months 3. If you do get covid vaccine- due around August 2022 4.Recommend shingrix- 5. If you get covid, stop sulfasalazine and call rheumatology for treatment documented in this encounter Ordered Prescriptions Prescription Sig Dispensed Refills Start Date End Da te sulfaSALAzine (AZULFIDINE) 500 mg tablet 1 tab twice daily 180 Tablet 3 05/30/2022 06/29/2022 documented in this encounter Progress Notes * Nan Cohen MA - 05/30/2022 1100 EST Had covid on 05/16/22, but never stopped sulfasalazine if though note said stop and call office * Tod Perez NP - 05/30/2022 1100 EST Images from the original note were not included. Patient ID: Deon Villanueva is a 76 y.o. y.o. male Subjective: Chief Complaint: Follow-up (5-6 month follow up, inflammatory arthritis ) HPI: ?? Pertinent Rheumatological History: [...] follow-up visit. ?? 04/03/2021 [facility]aved[facility] is concerned for MTX ILD/fibrosis. Reviewed [...] Joint pain X Weight gain or loss -10 from covid pounds (lbs) Duration of AM joint stiffness hours / min Eye pain or dryness X Numbness/tingling X Mouth or nose sores X Heart burn / Nausea X Chest pain X Diarrhea X Shortness of Breath X Blood in stool X Cough X X Burning on urination X Skin rash X Hand/Foot color change in cold X moderna #1 and #2 #3 - might consider future covid in the fall covid 05/16/22 did not stop SSZ , had -10lb wt loss, loss taste and smell, arthralgias, diarrha - treated with molpinivir, -still has a lingering cough they discussed covid vaccines with Dr. Barillas- might not get next vaccine 2/2 severe reactions, Dr. Barillas is in agreement, he would be interested in treatment for covid if need pt had 2021 flu Denies any other joint pains or swelling. [...] chest pain ??? 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 PV (polycythemia [...] as documented in Prism. Objective: BP (!) 144/69 (BP Cuff Location: Right arm, BP Patient Position: Sitting, BP Cuff Sizes: Adult, regular) Pulse 78 Ht 181 cm (71.26) Wt 98.9 kg (218 lb) BMI 30.18 kg/m?? General: No acute distress. Alert, fully oriented, pleasant, conversant. HEENT: Conjunctivae/corneas clear. Pupils equal, Sclerae anicteric. Mucus membranes moist; oropharynx clear. Neck supple, symmetrical, trachea midline maxillary sinus tender to palpation bilaterally Lungs: small amount FC RLL lateral aspect only Heart: Regular rate and rhythm, S1, S2 [...] warmth is present. Appropriate range ofmotion present. LABS: 05/23/22 07:24 Sodium, External 140 (E) Potassium, External 4.3 (E) Chloride, External 102 (E) CO2, External 30.4 (E) BUN, External 19 (H) (E) Creatinine, External 1.4 (H) (E) GFR, Calculated, External 51.45 (E) Glucose, Serum, External 128 (H) (E) Total Protein, External 7.4 (E) Albumin, External 3.9 (E) ALT, External 23 (E) AST, External 19 (E) Bilirubin, Total, External 0.5 (E) Alkaline Phosphatase, External 76 (E) Calcium, External 9.2 (E) WBC, External 9.40 (E) RBC, External 5.51 (E) Hemoglobin, External 12.8 (L) (E) HCT, External 44.7 (E) MCH, External 23.2 (L) (E) MCV, External 81 (E) MCHC, External 28.6 (L) (E) RDW-CV, External 19 (H) (E) PLT, External 371 (E) ABS Neutrophils, External 7.10 (H) (E) Neutrophils, External 10.7 (E) Lymphocytes, External 13.0 (E) Eosinophils, External 1.6 (E) Basophils, External 0.6 (E) ABS Lymphs, External 1.22 (E) ABS Monocytes, External 0.71 (E) ABS Eosinophils, External 0.15 (E) ABS Basophils, External 0.06 (E) Monocytes, External 7.6 (E) (H): Data is abnormally high (L): Data is abnormally low (E): External lab result Results: SURGICAL PATHOLOGY Status: Final result (Collected: 10/23/2016 18:29) ?? SURGICAL PATHOLOGY Status: Final result ?Visible to patient: Yes (Serviceful) Next appt: 05/25/2018 at 11:40 in Rheumatology (Sudhir Rosales MD) Order: [id number] ? 1yr ago ?? Pathology Report: SURGICAL PATHOLOGY REPORT Reports generated via electronic interface contain original data; however they are lacking the format of the original report. Caution should be taken when reading/interpreting unformatted reports. Name: ? DEON VILLANUEVA ? Accession #: ? [id number] ? : ? 1945 (Age: 71) ??M ?Collect Date: ? 10/23/2016 ? Location: ? [facility] ? Receive Date: ? 10/24/2016 ? Provider: SHREYA LEA MD Copy to: MINDY SZYMANSKI SOUVENIR AND NOVELTY MAKER ? Final Pathologic Diagnosis: A. ??GASTROESOPHAGEAL [...] Status: Final result ?Visible to patient: Yes (Serviceful) Next appt: 05/25/2018 at 11:40 in Rheumatology (Sudhir Rosales MD) Order: [id number] ? 1yr ago ?? Pathology Report: SURGICAL PATHOLOGY REPORT Reports generated via electronic interface contain original data; however they are lacking the format of the original report. Caution should be taken when reading/interpreting unformatted reports. Name: ? DEON VILLANUEVA ? Accession #: ? [id number] ? : ? 1945 (Age: 71) ??M ?Collect Date: ? 10/23/2016 ? Location: ? [facility] ? Receive Date: ? 10/24/2016 ? Provider: SHREYA LEA MD Copy to: MINDY SZYMANSKI SOUVENIR AND NOVELTY MAKER ? Final Pathologic Diagnosis: A. ??GASTROESOPHAGEAL [...] 7:55 AM ?XR CHEST 2 VIEWS (Order [id number]) Status: Final result (Exam End: 05/19/2020 16:15) Results XR CHEST 2 VIEWS ( (Order [id number]) XR CHEST 2 VIEWS Order: [id number] Status: Final result ?Visible to patient: Yes (MyChart) Next appt: None Details Reading Physician Reading Date Result Priority Dustin Ibrahim MD [phone] 05/19/2020 Narrative & Impression EXAM: RADIOLOGY/CHEST PA [...] Ibrahim MD XR CHEST 2 VIEWS (Order [id number]) Status: Final result (Exam End: 11/09/2020 16:33) Results XR CHEST 2 VIEWS ( (Order [id number]) XR CHEST 2 VIEWS Order: [id number] Status: Final result ?Visible to patient: Yes (seen) Next appt: 01/22/2021 at 10:45 in Cardiology (Claire Lopez APRN) 0 Result Notes Details Reading Physician Reading Date Result Priority Gerald Garcia MD [phone] 11/09/2020 Narrative & Impression EXAM: RADIOLOGY/CHEST PA LAT EX. D/ (1807) CLINICAL INFORMATION: SOB/cp PROCEDURE INFORMATION: Exam: XR [...] Reported By: Gerald CAMPBELL Summary Functional Status: 0 Pain Tolerance: 0 - No Pain Global Estimate: 0 - Very Well Score: 0 Interpretation: Near Remission ASSESSMENT: 1.Inflammator arthritis doing well, no flares on SZZ 500mg BID started around 02/2021. Continue current meds. 2. 03/27/21 ECHO EF 55-60%, aortic valve sclerotic with mild to moderate aortic regurgitation, mildmitral annual calcification, trace mitral regurgitation, trace triscupid regurgitation, IVC could not be assessed d/t poor imaging quality. All other structures normal. 3. Previously Dr. Ale[facility] Calderon, at [facility] was concerned for MTX ILD/fibrosis. MTX d/'c'd forthis reason. Pt's states SOB has resolved, and [...] HD flu 2020 complete 7. DXA at [facility]- osteopenia- neg for spinal fx. Reviewed calcium and vit D recommendations. Vit D lab added to next labs 9 dependent edema 2+ has been taking a break from his compression stockings- 2/2 increased restlessleg - drinking pick juice per his PCP for restless leg, feels like it has helped some 10 recommend shingrix covid 12/1/22 did not stop SSZ , had -10lb wt loss, loss taste and smell, arthralgias, diarrha - treated with molpinivir, -still has a lingering cough No diagnosis found. PLAN: 1. Continue current meds. 2. Labs every 3-4 months 3. If you do get covid vaccine- due around August 2022 4.Recommend shingrix- 5. If you get covid, stop sulfasalazine and call rheumatology for treatment No diagnosis found. No orders of the defined types were placed in this encounter. Barriers to learning identified: No Patient verbalizes understanding and agrees with plan Yes I was directly supervised by: Dr. Warner They were present in clinic and available for consult if needed. Tod Perez NP 05/30/2022 11:33 I spent a total of 30 minutes on the date of this encounter meeting with the patient and reviewing documentation/coordinating care as described in the above note. No procedures were performed at the time of the visit. documented in this encounter Plan of Treatment Upcoming Encounters Date Type Department Care Team (Late st Contact Info) Description 04/09/2024 16:30 EDT Office Visit [facility] [place] Hematology & Oncology - [address] [phone] Erin Barillas MD [address] [place] [address] 2 [place] [phone] 05/18/2024 10:00 EST Office Visit [facility] Rheumatology & Immunology - [address] [phone] Tod Perez NP [address] [place] [address] 5 [place] [phone] 06/03/2024 9:00 EST Ancillary Procedure [facility] Cardiology Clinic [address] [place] [address] 06/03/2024 9:00 EST Office Visit [facility] Cardiology Clinic [address] [place], [place] 307952 Claire Lopez NP [address] [phone] documented as of this encounter Visit Diagnoses Diagnosis Inflammatory arthritis- Primary Unspecified inflammatory polyarthropathy Encounter for long-term (current) use of medications Encounter for long-term (current) use of other medications documented in this encounter Discontinued Medications Medication Sig Discontinue Reason Start Date End Da te sulfaSALAzine (AZULFIDINE) 500 mg tablet 1 tab twice daily Reorder 06/19/2021 05/30/2022 documented as of this encounter Care Teams Rotary Surface Grinder Relationship Specialty Start Date End Date Layne Cai MD [address] [place] [phone] PCP - General 04/05/20 12/16/23 Claire Lopez NP [address] [place] [address] Cardiovascular Disease 11/22/20 Tod Perez NP 111 [facility], [facility] 5 [place] [address] Rheumatology 12/28/20 documented as of this encounter
--- OUTSIDE RECORDS SUMMARY | 2024-01-09 01:48 | XMS_ITS | Encounter Summary ---
Author Organization [facility] Address [address] [place] [address] Care Team Providers Care Uppers Edge Burnisher Name Role Phone Layne Cai MD Primary Care Provider [phone] Claire Lopez TICKET AGENT Unavailable Tod Perez TICKET AGENT Unavailable [phone] Vianey Bocanegra APRN Primary Care Provider [phone] Encounter Details Date Type Department Care Team (Late st Contact Info) Description 01/21/2022 Orders Only [facility] Cardiology Clinic [address] [place] [address] Rebeka Bell RN Sinus node dysfunction (HCC-CMS) ([facility]) Social History Tobacco Use Types Packs/Day Years [...] No 06/19/2021 Cognitive Status Response Date of Assess ent Because of a physical, menta l, or emotional condition, does this person have serious difficulty concentrating, remembering, or making decisions? No 11/24/2017 documented as of this encounter Plan of Treatment Upcoming Encounters Date Type Department Care Team (Late st Contact Info) Description 04/09/2024 16:30 EDT Office Visit [facility] Hematology & Oncology [address] [phone] Erin Barillas MD [address] [place] [address], [facility] 2 [place] [phone] 05/18/2024 10:00 EST Office Visit [facility] Rheumatology & Immunology [address] [phone] Tod Perez NP [address] [place] [address], [facility] 5 [place] [phone] 06/03/2024 9:00 EST Ancillary Procedure [facility] Cardiology Clinic [address] [place] [phone] 06/03/2024 9:00 EST Office Visit [facility] Cardiology Clinic [address] [place] [phone] Claire Lopez NP [address] [place] [address] [address] [place] [phone] documented as of this encounter Procedures Procedure Name Priority Date/Time Associated Diagnosis Comments CARDIAC IMPLANT CHECK - REMOTE MONITOR Routine 01/24/2022 14:48 EDT Sinus node dysfunction (HCC-CMS) (HCC) documented in this encounter Results * CARDIAC IMPLANT CHECK - REMOTE - PACEMAKER (01/24/2022 14:48 EDT) Anatomical Region Laterality Modality Device Narrative 01/24/2022 14:49 EDT Remote pacemaker interrogation shows normal device function, ample generator. No arrhythmias. See scanned documents for full details. Procedure Note Claire Lopez NP - 01/24/2022 Remote pacemaker interrogation shows normal device function, amplegenerator. No arrhythmias. See scanned documents for full details. Adrien Hackett NP CV IMPLANTABLE CARDI AC DEVICE documented in this encounter Visit Diagnoses Diagnosis Sinus node dysfunction ([facility]-CMS) Sinoatrial node dysfunction documented in this encounter Care Teams Uppers Edge Burnisher Relationship Specialty Start Date End Date Layne Cai MD [address] [place] [address] PCP - General 04/05/20 12/16/23 Vianey Bocanegra APRN 26 [facility] 185 [place] [address] PCP - General 12/17/23 Claire Lopez NP [address] [place] [address] [address] [place] [phone] Cardiovascular Disease 11/22/20 Tod Perez NP [address] [place] [address], [facility] 5 [place] [address] Rheumatology 12/28/20 documented as of this encounter
--- OUTSIDE RECORDS SUMMARY | 2024-01-09 01:48 | XMS_ITS | Encounter Summary ---
Author Organization [facility] Address [address] [place] [address] Care Team Providers Care Ammonia Solution Preparer Name Role Phone Layne Cai MD Primary Care Provider Claire Lopez SURGERY ASSISTANT Unavailable [phone] Tod Perez SURGERY ASSISTANT Unavailable [phone] Reason for Visit * Reason Onset Date Comments Appointment Related 09/27/2021 Encounter Details Date Type Department Care Team (Late st Contact Info) Description 09/27/2021 Telephone [facility] Hematology & Oncology - [facility] [address] [place], [place] [phone] Reshma Hilario, SURGERY ASSISTANT 111 [facility] Level [address] [place] [address] Appointment Related Social History Tobacco [...] encounter Miscellaneous Notes * Telephone Encounter - Kristi Adrian - 09/27/2021 1523 EDT Patient's Augustina called regarding patient's appointment and freelance writer informed it was rescheduled for 10/04 at 13:00. Augustina confirmed this time works. Please send new zoom link to patient. documented in this encounter Plan of Treatment Upcoming Encounters Date Type Department Care Team (Late st Contact Info) Description 04/09/2024 16:30 EDT Office Visit [facility] Hematology & Oncology - [address] [phone] Erin Barillas MD [address] [place] [address], [facility] 2 [place] [phone] 05/18/2024 10:00 EST Office Visit [facility] Rheumatology & Immunology - [address] [phone] Tod Perez NP [address] [place] [address], [facility] [address] [place] [phone] 06/03/2024 9:00 EST Ancillary Procedure [facility] Cardiology Clinic [address] [place] [phone] 06/03/2024 9:00 EST Office Visit [facility] Cardiology Clinic [address] [place] [address] [phone] Claire Lopez NP [address] [phone] documented as of this encounter Visit Diagnoses Not on filedocumented in this encounter Care Teams Ammonia Solution Preparer Relationship Specialty Start Date End Date Layne Cai MD [address] [place] [phone] PCP - General 04/05/20 12/16/23 Claire Lopez NP [address] [address] Cardiovascular Disease 11/22/20 Tod Perez NP [address] [place] [address], [address] [place] [phone] Rheumatology 12/28/20 documented as of this encounter
--- OUTSIDE RECORDS SUMMARY | 2024-01-09 01:48 | XMS_ITS | Encounter Summary ---
Author Organization [facility] Address [address] [place] [address] Care Team Providers Care Line Technician Name Role Phone Layne Cai MD Primary Care Provider [phone] Claire Lopez DIVERSIFIED CROPS FARMWORKER Unavailable [phone] Tod Perez DIVERSIFIED CROPS FARMWORKER Unavailable [phone] Vianey Bocanegra APRN Primary Care Provider [phone] Reason for Visit * Reason Comments Other Encounter Details Date Type Department Care Team (Late st Contact Info) Description 11/07/2021 Refill [facility] Hematology & Oncology - [facility] [address] [place], [place] [phone] Renate José, DIVERSIFIED CROPS FARMWORKER 111 [facility], Level [address] [place] [address] Other Social History Tobacco Use Types Packs/Day Years [...] Da te hydroxyurea (HYDREA) 500 mg capsule TAKE 1 CAPSULE BY MOUTH DAILY 90 capsule 1 11/08/2021 11/11/2021 documented in this encounter Plan of Treatment Upcoming Encounters Date Type Department Care Team (Late st Contact Info) Description 04/09/2024 16:30 EDT Office Visit [facility] [place] Hematology & Oncology - [address] [phone] Erin Barillas MD [address] [place] [address] 2 [place] [phone] 05/18/2024 10:00 EST Office Visit [facility] Rheumatology & Immunology [address] [phone] Tod Perez NP [address] [place] [address] 5 [place] [phone] 06/03/2024 9:00 EST Ancillary Procedure [facility] Cardiology Clinic [address] [place] [phone] 06/03/2024 9:00 EST Office Visit [facility] Cardiology Clinic [address] [place] [phone] Claire Lopez NP [address] [place] [address] [address] [place] [phone] documented as of this encounter Visit Diagnoses Not on filedocumented in this encounter Discontinued Medications Medication Sig Discontinue Reason Start Date End Da te hydroxyurea (HYDREA) 500 mg capsule Take one tablet by mouth daily. 05/14/2021 11/08/2021 documented as of this encounter Care Teams Line Technician Relationship Specialty Start Date End Date Layne Cai MD [address] [place] [address] PCP - General 04/05/20 12/16/23 Vianey Bocanegra APRN 26 [facility] 185 [place] [address] PCP - General 12/17/23 Claire Lopez NP [address] [place] [address] [phone] Cardiovascular Disease 11/22/20 Tod Perez, DIVERSIFIED CROPS FARMWORKER [address] [place] [address], Level [address] [place] [phone] Rheumatology 12/28/20 documented as of this encounter
--- OUTSIDE RECORDS SUMMARY | 2024-01-09 01:48 | XMS_ITS | Encounter Summary ---
Author Organization [facility] Address [address] [place] [address] Care Team Providers Care Machine Buffer Name Role Phone Layne Cai MD Primary Care Provider [phone] Claire Lopez DISH CLOTH INSPECTOR Unavailable [phone] Tod Perez DISH CLOTH INSPECTOR Unavailable [phone] Encounter Details Date Type Department Care Team (Late st Contact Info) Description 06/21/2022 Documentation Visit [facility] Hematology & Oncology - [facility] [address] [place], [place] [phone] Almita Peters, RN Social History Tobacco Use Types Packs/Day [...] Info) Description 04/09/2024 16:30 EDT Office Visit [facility] Hematology & Oncology - [address] [phone] Erin Barillas MD [address] [place] [address] 2 [place] [phone] 05/18/2024 10:00 EST Office Visit [facility] Rheumatology & Immunology [address] [phone] Tod Perez NP [address] [place] [address] 5 [place] [phone] 06/03/2024 9:00 EST Ancillary Procedure [facility] Cardiology Clinic [address] [place] [phone] 06/03/2024 9:00 EST Office Visit [facility] Cardiology Clinic [address] [place] [phone] Claire Lopez NP [address] [place] [address]-[address] [place] [phone] documented as of this encounter Procedures Procedure Name Priority Date/Time Associated Diagnosis Comments HGB Routine 06/21/2022 HEMATOCRIT Routine 06/21/2022 documented in this encounter Results * (ABNORMAL) HGB (06/21/2022) Hemoglobin, External 12.7(A) 13.5 - 17.5 g'dL [facility] POINT OF CARE Blood VENOUS BLOOD / Unknown 06/21/2022 Historical Provider HEMATOLOGY & PF4 ORDERABLES [facility] POINT OF CARE * HEMATOCRIT (06/21/2022) HCT, External 45.3 40.0 - 50.0 % [facility] POINT OF CARE Blood VENOUS BLOOD / Unknown 06/21/2022 Historical Provider HEMATOLOGY & PF4 ORDERABLES [facility] POINT OF CARE documented in this encounter Visit Diagnoses Not on filedocumented in this encounter Care Teams Machine Buffer Relationship Specialty Start Date End Date Layne Cai MD [address] [place] [phone] PCP - General 04/05/20 12/16/23 Claire Lopez NP [address] [place] [address] [address] [place] [address] Cardiovascular Disease 11/22/20 Tod Perez NP [address] [place] [address], Level [address] [place] [address] Rheumatology 12/28/20 documented as of this encounter
--- OUTSIDE RECORDS SUMMARY | 2024-01-09 01:48 | XMS_ITS | Encounter Summary ---
Author Organization [facility] Address [address] [place] [address] Care Team Providers Care Asbestos Surveyor Name Role Phone Layne Cai MD Primary Care Provider [phone] Claire Lopez STEM TEACHER Unavailable [phone] Tod Perez STEM TEACHER Unavailable [phone] Encounter Details Date Type Department Care Team (Late st Contact Info) Description 08/09/2021 Abstract [facility] Rheumatology & Immunology - [facility] [address] [place], [place] [phone] Tod Perez, STEM TEACHER [address] [facility], Level 5 [place] [address] Social History Tobacco Use Types [...] Info) Description 04/09/2024 16:30 EDT Office Visit [facility] [place] Hematology & Oncology - [address] [phone] Erin Barillas MD [address] [place] [address], [facility] 2 [place] [phone] 05/18/2024 10:00 EST Office Visit [facility] Rheumatology & Immunology [address] [phone] Tod Perez NP [address] [place] [address], [facility] 5 [place] [phone] 06/03/2024 9:00 EST Ancillary Procedure [facility]iology Clinic [address] [place] [phone] 06/03/2024 9:00 EST Office Visit [facility] [address] [place] [address] [phone] Claire Lopez NP [address] [place] [address] MOB[address]A [address] [place] [address] documented as of this encounter Procedures Procedure Name Priority Date/Time Associated Diagnosis Comments COMPLETE BLOOD COUNT AND DIFFERENTIAL Routine 07/25/2021 COMPREHENSIVE METABOLIC PANEL (CMP) Routine 07/25/2021 documented in this encounter Results * COMPLETE BLOOD COUNT AND DIFFERENTIAL (07/25/2021) WBC, External 6.6 [facility] RBC, External 5.40 [facility] Hemoglobin, External 13.8 [facility] HCT, External 48.0 [facility] MCV, External 88.9 [facility] MCH, External 25.6 [facility] Comment:Low MCHC, External 28.8 [facility] Comment:Low PLT, External 214 [facility] RDW-CV, External 16.9 [facility] Comment:High Neutrophils, External 70.2 [facility] Lymphocytes, External 19.7 [facility] Monocytes, External 9.0 [facility] Eosinophils, External 0.0 [facility] Basophils, External 0.6 [facility] ABS Neutrophils, External 4.63 [facility] ABS Lymphs, External 1.30 [facility] ABS Monocytes, External 0.59 [facility] ABS Eosinophils, External 0.00 [facility] ABS Basophils, External 0.04 [facility] Blood VENOUS BLOOD / Unknown 07/25/2021 Tod Perez NP PACKAGES & DNA PROB E ORDERABLES [facility] * COMPREHENSIVE METABOLIC PANEL (CMP) (07/25/2021) GFR, Calculated, External 65 [facility] Glucose, Serum, External 138 [facility] Comment:High Albumin, External 4.7 [facility] Total Alkaline Phosphatase, External 113 [facility] ALT, External 12 [facility] AST, External 17 [facility] BUN, External 18 [facility] Calculated Calcium, External [facility] Calcium, External 9.4 [facility] Chloride, External 101 [facility] CO2, External 26 [facility] Creatinine, External 1.15 [facility] Fasting?, External [facility] Potassium, External 4.2 [facility] Sodium, External 138 [facility] Total Protein, External 7.0 [facility] Bilirubin, Total, External 0.4 [facility] Blood VENOUS BLOOD / Unknown 07/25/2021 Tod Perez NP CHEMISTRY & BLOOD G ORDERABLES [facility] documented in this encounter Visit Diagnoses Not on filedocumented in this encounter Care Teams Asbestos Surveyor Relationship Specialty Start Date [place] [phone] PCP - General 04/05/20 12/16/23 Claire Lopez NP [address] [place] [address] 2-1 [place] [phone] Cardiovascular Disease 11/22/20 Tod Perez NP [address] [place] [address], [facility] 5 [place] [phone] Rheumatology 12/28/20 documented as of this encounter
--- OUTSIDE RECORDS SUMMARY | 2024-01-09 01:48 | XMS_ITS | Encounter Summary ---
Author Organization [facility] Address [address] [place] [address] Care Team Providers Care Air Moving Technician Name Role Phone Layne Cai MD Primary Care Provider [phone] Claire Lopez NP Unavailable [phone] Tod Perez NP Unavailable [phone] Reason for Visit * (Routine) - Closed Specialty Diagnoses / Procedures Referred By Marissa carney Referred To Contact Diagnoses Pacemaker Procedures CARDIAC IMPLANT CHECK - IN CLINIC Claire Lopez NP [address] [facility] [address] [place] [address] Referral ID Status Reason Start Date Expiration Date Visits Re quested Visits Authorized [id number] Closed 05/11/2019 1 1 Encounter Details Date Type Department Care Team (Late st Contact Info) Description 04/25/2022 14:15 EST Ancillary Procedure [facility] Card[facility] Clinic [address] [place] [address] Pacemaker Social History Tobacco Use [...] Info) Description 04/09/2024 16:30 EDT Office Visit [facility] Hematology & Oncology [address] [phone] Erin Barillas MD [address] [place] [address] 2 [place] [phone] 05/18/2024 10:00 EST Office Visit [facility] Rheumatology & Immunology [address] 655671 Tod Perez NP [address] [place] [address] 5 [place] [phone] 06/03/2024 9:[address] [facility] Cardiology Clinic [address] [place] [phone] 06/03/2024 9:[address] [facility] Cardiology Clinic [address] [place] [address] [phone] Claire Lopez NP [address] [place] [address] MOB-A [address] [place] [phone] documented as of this encounter Procedures Procedure Name Priority Date/Time Associated Diagnosis Comments CARDIAC IMPLANT CHECK - IN CLINIC Routine 04/25/2022 14:17 EST Pacemaker documented in this encounter Results * CARDIAC IMPLANT CHECK - IN CLINIC - PACEMAKER SINGLE CHAMBER W/ PROG (04/25/2022 14:17 EST) Anatomical Region Laterality Modality Device Narrative 04/25/2022 14:17 EST Refer to same day OV for full details Procedure Note Claire Lopez NP - 04/25/2022 Refer to same day OV for full details Claire Lopez NP CV IMPLANTABLE CARDI AC DEVICE documented in this encounter Visit Diagnoses Diagnosis Pacemaker Cardiac pacemaker in situ documented in this encounter Care Teams Air Moving Technician Relationship Specialty Start Date End Date Layne Cai MD [address] [place] [address] PCP - General 04/05/20 12/16/23 Claire Lopez NP [address] [place] [address] 2[address] [place] [address] Cardiovascular Disease 11/22/20 Tod Perez NP [address] [place] [address], Level [address] [place] [phone] Rheumatology 12/28/20 documented as of this encounter
--- OUTSIDE RECORDS SUMMARY | 2024-01-09 01:48 | XMS_ITS | Encounter Summary ---
Author Organization [facility] Address [address] [place] [address] Care Team Providers Care Mattress Stuffer Name Role Phone Layne Cai MD Primary Care Provider [phone] Claire Lopez MEMORIAL MARKER DESIGNER Unavailable [phone] Tod Perez MEMORIAL MARKER DESIGNER Unavailable [phone] Encounter Details Date Type Department Care Team (Late st Contact Info) Description 11/16/2021 Orders Only [facility] Hematology & Oncology - [facility] [address] [place], [place] [phone] Almita Peters, RN Social History Tobacco Use [...] as of this encounter Progress Notes * Almita Peters, RN - 11/16/2021 1536 EDT Called [facility], left message requesting they send us any needed paper orders for TP. Left PAC# and ourfax #. documented in this encounter Plan of Treatment Upcoming Encounters Date Type Department Care Team (Late st Contact Info) Description 04/09/2024 16:30 EDT Office Visit [facility] Hematology & Oncology - [address] [phone] Erin Barillas MD [address] [place] [address] 2 [place] [phone] 05/18/2024 10:00 EST Office Visit [facility] Rheumatology & Immunology - [address] [phone] Tod Perez NP [address] [place] [address], [facility] 5 [place] [phone] 06/03/2024 9:00 EST Ancillary Procedure [facility] Cardiology Clinic [address] [place] [phone] 06/03/2024 9:00 EST Office Visit [facility] Cardiology Clinic [address] [place] [address] Claire Lopez NP [address] [place] [address]-A [address] [place] [phone] documented as of this encounter Visit Diagnoses Not on filedocumented in this encounter Care Teams Mattress Stuffer Relationship Specialty Start Date End Date Layne Cai MD [address] [place] [phone] PCP - General 04/05/20 12/16/23 Claire Lopez NP [address] [place] [address] 2-1 [place] [address] Cardiovascular Disease 11/22/20 Tod Perez NP [address] [place] [address], Level [address] [place] [address] Rheumatology 12/28/20 documented as of this encounter
--- OUTSIDE RECORDS SUMMARY | 2024-01-09 01:48 | XMS_ITS | Encounter Summary ---
Author Organization [facility] Address [address] [place] [address] Care Team Providers Care Cryptologic Linguist Name Role Phone Layne Cai MD Primary Care Provider [phone] Claire Lopez NP Unavailable [phone] Tod Perez NP Unavailable [phone] Reason for Visit * (Routine) - Closed Specialty Diagnoses / Procedures Referred By Marissa carney Referred To Contact Diagnoses Pacemaker Procedures CARDIAC IMPLANT CHECK - IN CLINIC Claire Lopez NP [address] [facility] [address] [place] [address] Referral ID Status Reason Start Date Expiration Date Visits Re quested Visits Authorized [id number] Closed 05/11/2019 1 1 Encounter Details Date Type Department Care Team (Late st Contact Info) Description 10/17/2021 15:00 EDT Ancillary Procedure [facility] [place] [address] [place] [address] Pacemaker Social History Tobacco Use [...] [facility] Hematology & Oncology [address] [phone] Erin Barillas MD [address] [place] [address] 2 [place] [phone] 05/18/2024 10:00 EST Office Visit [facility] Rheumatology & Immunology [address] 784451 Tod Perez NP [address] [place] [address] 5 [place] [phone] 06/03/2024 9:00 EST Ancillary Procedure [facility] [address] [place] [phone] 06/03/2024 9:00 EST Office [facility] [address] [place] [address] [phone] Claire Lopez NP [address] [facility] MOB-A [address] [place] [phone] documented as of this encounter Procedures Procedure Name Priority Date/Time Associated Diagnosis Comments CARDIAC IMPLANT CHECK - IN CLINIC Routine 10/17/2021 15:57 EDT Pacemaker documented in this encounter Results * CARDIAC IMPLANT CHECK - IN CLINIC - PACEMAKER SINGLE CHAMBER W/ PROG (10/17/2021 15:57 EDT) Anatomical Region Laterality Modality Device Narrative 10/17/2021 15:58 EDT Refer to same day OV for full details Procedure Note Claire Lopez NP - 10/17/2021 Refer to same day OV for full details Claire Lopez NP CV IMPLANTABLE CARDI AC DEVICE documented in this encounter Visit Diagnoses Diagnosis Pacemaker Cardiac pacemaker in situ documented in this encounter Care Teams Cryptologic Linguist Relationship Specialty Start Date End Date Layne Cai MD [address] [place] [phone] PCP - General 04/05/20 12/16/23 Claire Lopez NP [address] [place] [address] 2-1 [place] [address] Cardiovascular Disease 11/22/20 Tod Perez NP [address] [place] [address], Level [address] [place] [phone] Rheumatology 12/28/20 documented as of this encounter
--- OUTSIDE RECORDS SUMMARY | 2024-01-09 01:48 | XMS_ITS | Encounter Summary ---
Author Organization [facility] Address [address] [place] [address] Care Team Providers Care Bacteriologist Medical Name Role Phone Layne Cai MD Primary Care Provider [phone] Claire Lopez PYTHON DJANGO DEVELOPER Unavailable [phone] Tod Perez PYTHON DJANGO DEVELOPER Unavailable [phone] Encounter Details Date Type Department Care Team (Late st Contact Info) Description 05/23/2022 Documentation Visit [facility] Cancer Center Hematology & Oncology - [facility] [address] [place], [place] [phone] Jeannette Vaughn RN [address] [place] [address] Social History Tobacco Use Types Packs/Day Years [...] as of this encounter Progress Notes * Jeannette Vaughn RN - 05/23/2022 1443 EST External labs entered from [facility] documented in this encounter Plan of Treatment Upcoming Encounters Date Type Department Care Team (Late st Contact Info) Description 04/09/2024 16:30 EDT Office Visit [facility] Hematology & Oncology - [address] [phone] Erin Barillas MD [address] [place] [address] 2 [place] [phone] 05/18/2024 10:00 EST Office Visit [facility] Rheumatology & Immunology - [address] [phone] Tod Perez NP [address] [place] [address], [facility] 5 [place] [phone] 06/03/2024 9:00 EST Ancillary Procedure [facility] Cardiology Clinic [address] [place] [phone] 06/03/2024 9:00 EST Office Visit [facility] Cardiology Clinic [address] [place] [address] Claire Lopez NP [address] [place] [address]-A [address] [place] [address] documented as of this encounter Procedures Procedure Name Priority Date/Time Associated Diagnosis Comments COMPLETE BLOOD COUNT AND DIFFERENTIAL Routine 05/23/2022 7:24 EST COMPREHENSIVE METABOLIC PANEL (CMP) Routine 05/23/2022 7:24 EST documented in this encounter Results * (ABNORMAL) COMPLETE BLOOD COUNT AND DIFFERENTIAL (05/23/2022 7:24 EST) WBC, External 9.40 [facility] RBC, External 5.51 [facility] Hemoglobin, External 12.8(L) [facility] HCT, External 44.7 [facility] MCV, External 81 [facility] MCH, External 23.2(L) [facility] MCHC, External 28.6(L) [facility] PLT, External 371 [facility] RDW-CV, External 19(H) [facility] Neutrophils, External 10.7 [facility] Lymphocytes, External 13.0 [facility] Monocytes, External 7.6 [facility] Eosinophils, External 1.6 [facility] Basophils, External 0.6 [facility] ABS Neutrophils, External 7.10(H) [facility] ABS Lymphs, External 1.22 [facility] ABS Monocytes, External 0.71 [facility] ABS Eosinophils, External 0.15 [facility] ABS Basophils, External 0.06 [facility] Blood VENOUS BLOOD / Unknown 05/23/2022 7:24 EST Historical Provider PACKAGES & DNA LA OBE ORDERABLES [facility] * (ABNORMAL) COMPREHENSIVE METABOLIC PANEL (CMP) (05/23/2022 7:24 EST) GFR, Calculated, External 51.45 [facility] Glucose, Serum, External 128(H) [facility] Albumin, External 3.9 [facility] Total Alkaline Phosphatase, External 76 [facility] ALT, External 23 [facility] AST, External 19 [facility] BUN, External 19(H) [facility] Calculated Calcium, External [facility] Calcium, External 9.2 [facility] Chloride, External 102 [facility] CO2, External 30.4 [facility] Creatinine, External 1.4(H) [facility] Fasting?, External [facility] Potassium, External 4.3 [facility] Sodium, External 140 [facility] Total Protein, External 7.4 [facility] Bilirubin, Total, External 0.5 [facility] Blood VENOUS BLOOD / Unknown 05/23/2022 7:24 EST Historical Provider CHEMISTRY & BLOOD GAS ORDERABLES Performing Organization Address City/State/[facility] Co de Phone Number [facility] documented in this encounter Visit Diagnoses Not on filedocumented in this encounter Care Teams Bacteriologist Medical Relationship Specialty Start Date End Date Layne Cai MD [address] [place] [address] PCP - General 04/05/20 12/16/23 Claire Lopez NP [address] [place] [address] [phone] Cardiovascular Disease 11/22/20 Tod Perez NP [address] [place] [address], Level [address] [place] [phone] Rheumatology 12/28/20 documented as of this encounter
--- OUTSIDE RECORDS SUMMARY | 2024-01-09 01:48 | XMS_ITS | Encounter Summary ---
Author Organization [facility] Address [address] [place] [address] Care Team Providers Care Music Teacher Name Role Phone Layne Cai MD Primary Care Provider [phone] Claire Lopez LAMPS TESTER AND INSPECTOR Unavailable [phone] Tod Perez LAMPS TESTER AND INSPECTOR Unavailable [phone] Reason for Visit * Reason Onset Date Comments Coordination Of Care 11/28/2021 Orders (Non Pre-visit) 12/03/2021 Encounter Details Date Type Department Care Team (Late st Contact Info) Description 11/28/2021 Telephone [facility] Cancer Center Hematology & Oncology - [facility] [address] [place], [place] [phone] Erin Barillas MD [address] [facility], Level [address] [place] [phone] Coordination Of Care; Orders (Non Pre-visit) Social History Tobacco Use Types Packs/Day Years [...] encounter Miscellaneous Notes * Telephone Encounter - Almita Peters RN - 12/03/2021 1140 EDT Returned call to [facility]. Clarified that pt should have TP if hct is >44%. * Telephone Encounter - Demetrice Cole - 12/03/2021 1032 EDT Chikis from [facility] calling to get clarification on orders. Please call back to discuss * Telephone Encounter - Almita Peters RN - 11/30/2021 1651 EDT Returned call to Praneeth.Left message with PAC# for call back. * Telephone Encounter - Jame Soriano - 11/29/2021 1225 EDT Whitney with [facility] infusion services is calling regarding orders she received. Please call to discuss. * Telephone Encounter - Graciela Ross - 11/28/2021 0956 EDT States patient is to have theoputic phlebotomy [facility] in [facility]. Calling to follow up documented in this encounter Plan of Treatment Upcoming Encounters Date Type Department Care Team (Late st Contact Info) Description 04/09/2024 16:30 EDT Office Visit [facility] Hematology & Oncology [address] [phone] Erin Barillas MD [address] [place] [address], [facility] 2 [place] [phone] 05/18/2024 10:00 EST Office Visit [facility] Rheumatology & Immunology [address] [phone] Tod Perez NP [address] [place] [address] 5 [place] [phone] 06/03/2024 9:00 EST Ancillary Procedure [facility] Cardiology Clinic [address] [place] [phone] 06/03/2024 9:00 EST Office Visit [facility] Cardiology Clinic [address] [place] [address] [phone] Claire Lopez NP [address] [place] [phone] documented as of this encounter Visit Diagnoses Not on filedocumented in this encounter Care Teams Music Teacher Relationship Specialty Start Date End Date Layne Cai MD [address] [place] [address] PCP - General 04/05/20 12/16/23 Claire Lopez NP [address] [place] [address] Cardiovascular Disease 11/22/20 Tod Perez NP [address] [place] [address], [facility] 5 [place] [address] Rheumatology 12/28/20 documented as of this encounter
--- OUTSIDE RECORDS SUMMARY | 2024-01-09 01:48 | XMS_ITS | Encounter Summary ---
Author Organization [facility] Address [address] [place] [address] Care Team Providers Care Solar Sales Associate Name Role Phone Lyane Cai MD Primary Care Provider [phone] Claire Lopez DRAWER UPFITTER Unavailable Tod Perez DRAWER UPFITTER Unavailable [phone] Encounter Details Date Type Department Care Team (Late st Contact Info) Description 08/30/2021 Abstract [facility] Rheumatology & Immunology - [facility] [address] [place], [place] [phone] Tod Perez, DRAWER UPFITTER 111 [facility], Level 5 [place] [address] Social History Tobacco Use Types [...] Info) Description 04/09/2024 16:30 EDT Office Visit [facility] [place] Hematology & Oncology - [address] [phone] Erin Barillas MD [address] [place] [address], [facility] 2 [place] [phone] 05/18/2024 10:00 EST Office Visit [facility] Rheumatology & Immunology [address] 488761 Tod Perez NP [address] [place] [address], [facility] 5 [place] [phone] 06/03/2024 9:00 EST Ancillary Procedure [facility] Cardiology Clinic [address] [place] [address] [phone] 06/03/2024 9:00 EST Office Visit [facility] Card[facility] Clinic [address] [place] [address] [phone] Claire Lopez NP [address] [place] [address] [address] [place] [address] documented as of this encounter Procedures Procedure Name Priority Date/Time Associated Diagnosis Comments COMPLETE BLOOD COUNT AND DIFFERENTIAL Routine 08/29/2021 COMPREHENSIVE METABOLIC PANEL (CMP) Routine 08/29/2021 documented in this encounter Results * COMPLETE BLOOD COUNT AND DIFFERENTIAL (08/29/2021) WBC, External 7.6 [facility] RBC, External 5.00 [facility] Hemoglobin, External 12.4 [facility] Comment:Low HCT, External 43.0 [facility] MCV, External 86.0 [facility] MCH, External 24.8 [facility] Comment:Low MCHC, External 28.8 [facility] Comment:Low PLT, External 251 [facility] RDW-CV, External 17.8 [facility] Comment:High Neutrophils, External 71.8 [facility] Lymphocytes, External 18.5 [facility] Monocytes, External 8.5 [facility] Eosinophils, External 0.0 [facility] Basophils, External 0.7 [facility] ABS Neutrophils, External 5.43 [facility] ABS Lymphs, External 1.40 [facility] ABS Monocytes, External 0.64 [facility] ABS Eosinophils, External 0.00 [facility] ABS Basophils, External 0.05 [facility] Blood VENOUS BLOOD / Unknown 08/29/2021 Tod Perez NP PACKAGES & DNA PROB E ORDERABLES [facility] * COMPREHENSIVE METABOLIC PANEL (CMP) (08/29/2021) GFR, Calculated, External 57 [facility] Comment:Low Glucose, Serum, External 124 [facility] Comment:High Albumin, External 4.5 [facility] Total Alkaline Phosphatase, External 94 [facility] ALT, External 8 [facility] AST, External 15 [facility] BUN, External 23 [facility] Calculated Calcium, External [...] Total Protein, External 6.7 [facility] Bilirubin, Total, External 0.3 [facility] Blood VENOUS BLOOD / Unknown 08/29/2021 Tod Perez NP CHEMISTRY & BLOOD G ORDERABLES [facility] documented in this encounter Visit Diagnoses Not on filedocumented in this encounter Care Teams Solar Sales Associate Relationship Specialty Start Date End Date Layne Cai MD [address] [place] [phone] PCP - General 04/05/20 12/16/23 Claire Lopez NP [address] [place] [address] [phone] Cardiovascular Disease 11/22/20 Tod Perez NP [address] [place] [address], Level [address] [place] [phone] Rheumatology 12/28/20 documented as of this encounter
--- OUTSIDE RECORDS SUMMARY | 2024-01-09 01:48 | XMS_ITS | Encounter Summary ---
Author Organization [facility] Address [address] [place] [address] Care Team Providers Care Ion Exchange Operator Name Role Phone Layne Cai MD Primary Care Provider [phone] Claire Lopez ASSOCIATE PROFESSOR OF SURGERY Unavailable [phone] Tod Perez ASSOCIATE PROFESSOR OF SURGERY Unavailable [phone] Encounter Details Date Type Department Care Team (Late st Contact Info) Description 07/29/2022 Orders Only [facility] [address] [place] [address] Ryann Venegas MA Sinus node [...] Info) Description 04/09/2024 16:30 EDT Office Visit [facility] Hematology & Oncology [address] [phone] Erin Barillas MD [address] [place] [address] 2 [place] [phone] 05/18/2024 10:[address] [facility] Rheumatology & Immunology [address] [phone] Tod Perez NP [address] [place] [address], [facility] 5 [place] [phone] 06/03/2024 9:00 EST Ancillary Procedure [facility] Cardiology Clinic [address] [place] [address] [phone] 06/03/2024 9:00 EST Office Visit [facility] Cardiology Clinic [address] [place] [address] [phone] Claire Lopez NP [address] [place] [address] [address] [place] [phone] documented as of this encounter Procedures Procedure Name Priority Date/Time Associated Diagnosis Comments CARDIAC IMPLANT CHECK - REMOTE MONITOR Routine 07/30/2022 9:43 EST Sinus node dysfunction (HCC-CMS) documented in this encounter Results * CARDIAC IMPLANT CHECK - REMOTE - PACEMAKER (07/30/2022 9:43 EST) Anatomical Region Laterality Modality Device Narrative 07/30/2022 9:43 EST Remote pacemaker interrogation shows normal device function, ample generator. No arrhythmias. See scanned documents for full details. Procedure Note Claire Lopez NP - 07/30/2022 Remote pacemaker interrogation shows normal device function, amplegenerator. No arrhythmias. See scanned documents for full details. Adrien Hackett NP CV IMPLANTABLE CARDI AC DEVICE documented in this encounter Visit Diagnoses Diagnosis Sinus node dysfunction (HCC-CMS)- Primary Sinoatrial node dysfunction documented in this encounter Care Teams Ion Exchange Operator Relationship Specialty Start Date End Date Layne Cai MD [address] [place] [address] PCP - General 04/05/20 12/16/23 Claire Lopez NP [address] [place] [address] [address] [place] [address] Cardiovascular Disease 11/22/20 Tod Perez NP [address] [place] [address], Level [address] [place] [address] Rheumatology 12/28/20 documented as of this encounter
--- OUTSIDE RECORDS SUMMARY | 2024-01-09 01:48 | XMS_ITS | Encounter Summary ---
Author Organization [facility] Address [address] [place] [address] Care Team Providers Care Flask Pusher Name Role Phone Layne Cai MD Primary Care Provider [phone] Claire Lopez TOE STAPLER Unavailable [phone] Tod Perez TOE STAPLER Unavailable Vianey Bocanegra APRN Primary Care Provider [phone] Reason for Visit * Reason Onset Date Comments Appointment Related 05/22/2022 1.19.23 F/U Encounter Details Date Type Department Care Team (Late st Contact Info) Description 05/22/2022 Telephone [facility] Rheumatology & Immunology - [facility] [address] [place] [address] Tod Perez, TOE STAPLER 111 [facility], Level [address] [place] [address] Appointment Related (1..23 F/U) Social History Tobacco Use Types Packs/Day Years [...] * Telephone Encounter - Nikole Guan - 05/22/2022 1203 EST Reason for Call: Appointment Related (07.04. F/U) Summary/Symptoms: LMOM to call back if interested in sooner availability 05.23.2022 at 8a.m. Please schedule if still available. Please schedule from WAIT LIST TAB Nikole Guan 05/22/2022 12:04 documented in this encounter Plan of Treatment Upcoming Encounters Date Type Department Care Team (Late st Contact Info) Description 04/09/2024 16:30 EDT Office Visit [facility] Hematology & Oncology - [address] [phone] Erin Barillas MD [address] [place] [address] 2 [place] [phone] 05/18/2024 10:00 EST Office Visit [facility] Rheumatology & Immunology - [address] [phone] Tod Perez NP [address] [place] [address] 5 [place] [phone] 06/03/2024 9:00 EST Ancillary Procedure [facility] Cardiology Clinic [address] [place] [address] 06/03/2024 9:00 EST Office Visit [facility] Cardiology Clinic [address] [place] [address] Claire Lopez NP [address] [place] [phone] documented as of this encounter Visit Diagnoses Not on filedocumented in this encounter Care Teams Flask Pusher Relationship Specialty Start Date End Date Layne Cai MD [address] [place] [address] PCP - General 04/05/20 12/16/23 Vianey Bocanegra APRN 26 [facility] [address] [place] [address] PCP - General 12/17/23 Claire Lopez NP [address] [place] [phone] Cardiovascular Disease 11/22/20 Tod Perez NP [address] [place] [address], Level [address] [place] [phone] Rheumatology 12/28/20 documented as of this encounter
--- OUTSIDE RECORDS SUMMARY | 2024-01-09 01:48 | XMS_ITS | Encounter Summary ---
Author Organization [facility] Address [address] [place] [address] Care Team Providers Care Linux Systems Administrator Name Role Phone Layne Cai MD Primary Care Provider [phone] Claire Lopez CITY EDITOR Unavailable [phone] Tod Perez NP Unavailable [phone] Reason for Visit * Reason Comments Follow-up inflammatory arthrit is, dexa scan results, lab work results (no response) Encounter Details Date Type Department Care Team (Late st Contact Info) Description 12/18/2021 10:00 EDT Office Visit [facility] Rheumatology & Immunology - [address] [address] Tod Perez, FESTUS 111 [facility], Level 5 [place] [address] Inflammatory arthritis (Primary Dx); Encounter for vitamin deficiency screening Social History Tobacco Use Types Packs/Day Years [...] * Patient Instructions* Tod Perez NP - 12/18/2021 10:00 EDT 1. [...] person documented in this encounter Progress Notes * Tod Perez NP - 12/18/2021 1000 EDT [...] follow-up visit. ?? 04/03/2021 Alecia Saavedra at [facility] is concerned for MTX ILD/fibrosis. Reviewed [...] no flares Had a [place] winter in [place], Director Business Systems in [place] Dr. Tellez ordered sleep study- neg for Sleep apnea, SOB has resolved CT findings had improved, F/u CT and PFTs 1 year- if good, might D/c pt. DXA at [facility] - osteopenia, no compression fractures Seeing hematology for polycethenia Denies any other joint pains or swelling. AM stiffness: Some Physical activity: Walks 2 miles per day Patient Active Problem List Diagnosis ??? Chest pain ??? Light headed ??? Sick sinus syndrome (HCC-CMS) ([facility]) ??? Pacemaker ??? Sleep apnea ??? Hypertension ??? GERD (gastroesophageal reflux disease) ??? Hypercholesteremia ??? Enlarged prostate ??? Left hand weakness ??? History of seronegative inflammatory arthritis ??? Facial rash ??? Exertional chest pain ??? Coronary artery disease involving [place] coronary artery of [place] heart without angina pectoris ??? PV (polycythemia vera) (HCC-CMS) ([facility]) Past Medical History: Diagnosis Date ??? Arthritis [...] is present. Appropriate range ofmotion present. LABS: Results for DEON VILLANUEVA ( [...] Status: Final result ?Visible to patient: Yes ([employer]) Next appt: 05/25/2018 at 11:40 in Rheumatology (Sudhir Rosales MD) Order: [id number] ? 1yr ago ?? Pathology Report: SURGICAL PATHOLOGY REPORT Reports generated via electronic interface contain original data; however they are lacking the format of the original report. Caution should be taken when reading/interpreting unformatted reports. Name: ? DEON VILLANUEVA ? Accession #: ? [id number] ? : ? 1945 (Age: 71) ??M [...] Status: Final result ?Visible to patient: Yes ([employer]) Next appt: 05/25/2018 at 11:40 in Rheumatology (Sudhir Rosales MD) Order: [id number] ? 1yr ago ?? Pathology Report: SURGICAL PATHOLOGY REPORT Reports generated via electronic interface contain original data; however they are lacking the format of the original report. Caution should be taken when reading/interpreting unformatted reports. Name: ? DEON VILLANUEVA ? Accession #: ? [id number] ? : ? 1945 (Age: 71) ??M ?Collect Date: ? 10/23/2016 ? Location: ? [facility] ? Receive Date: ? 10/24/2016 ? Provider: SHREYA LEA MD Copy to: MINDYMarcio SZYMANSKI SAMPLER FIRST ? Final Pathologic Diagnosis: A. ??GASTROESOPHAGEAL JUNCITON, [...] 7:55 AM ?XR CHEST 2 VIEWS (Order [id number]) Status: Final result (Exam End: 05/19/2020 16:15) Results XR CHEST 2 VIEWS ( (Order [id number]) XR CHEST 2 VIEWS Order: [id number] Status: Final result ?Visible to patient: Yes (MyChart) Next appt: None Details Reading Physician Reading Date Result Priority Dustin Ibrahim MD [phone] 05/19/2020 Narrative & Impression EXAM: RADIOLOGY/CHEST PA [...] IN OTHER VENDOR SYSTEM 05/19/2020 Reported By: Dusitn Ibrahim MD XR CHEST 2 VIEWS (Order [id number]) Status: Final result (Exam End: 11/09/2020 16:33) Results XR CHEST 2 VIEWS ( (Order [id number]) XR CHEST 2 VIEWS Order: [id number] Status: Final result ?Visible to patient: Yes (seen) Next appt: 01/22/2021 at 10:45 in Cardiology (Claire Lopez APRN) 0 Result Notes Details Reading Physician Reading Date Result Priority Gerald Garcia MD [phone] 11/09/2020 Narrative & Impression EXAM: RADIOLOGY/CHEST PA [...] normal. 3. Previously Dr. Alecia Calderon, at [facility] was concerned for MTX ILD/fibrosis. MTX [...] HD flu 2020 complete 7. DXA at [facility]- osteopenia- neg for spinal fx. Reviewed [...] Info) Description 04/09/2024 16:30 EDT Office Visit [facility] Hematology & Oncology - [address] [phone] Erin Barillas MD [address] [place] [address] 2 [place] [phone] 05/18/2024 10:00 EST Office Visit [facility] Rheumatology & Immunology - [address] 281691 Tod Perez NP [address] [place] [address], [facility] 5 [place] [phone] 06/03/2024 9:00 EST Ancillary Procedure [facility] Cardiology Clinic [address] [place] [address] [phone] 06/03/2024 9:00 EST Office Visit [facility] Cardiology Clinic [address] [place] [address] [phone] Claire Lopez NP 130 [facility] 21 [place] [address] documented as of this encounter Visit Diagnoses Diagnosis Inflammatory arthritis- Primary Unspecified inflammatory polyarthropathy Encounter for vitamin deficiency screening Screening for other and unspecified endocrine, nutritional, metabolic, and immunity disorders documented in this encounter Care Teams Linux Systems Administrator Relationship Specialty Start Date End Date Layne Cai MD [address] [place] [address] PCP - General 04/05/20 12/16/23 Claire Lopez NP 130 [facility] [address] [address] Cardiovascular Disease 11/22/20 Tod Perez NP [address] [place] [address], [facility] 5 [place] [address] Rheumatology 12/28/20 documented as of this encounter
--- OUTSIDE RECORDS SUMMARY | 2024-01-09 01:48 | XMS_ITS | Encounter Summary ---
Author Organization [facility] Address [address] [place] [address] Care Team Providers Care Hydraulic Tester Name Role Phone Layne Cai MD Primary Care Provider [phone] Claire Lopez TALKBACK HOST Unavailable [phone] Tod Perez TALKBACK HOST Unavailable [phone] Reason for Visit * Reason Onset Date Comments Appointment Related 09/25/2021 Encounter Details Date Type Department Care Team (Late st Contact Info) Description 09/25/2021 Telephone [facility] Hematology & Oncology - [facility] [address] [place], [place] [phone] Reshma Hilario, TALKBACK HOST 111 [facility] Level 2 [place] [address] Appointment Related Social History Tobacco [...] Miscellaneous Notes * Telephone Encounter - Nan Queen MA - 09/25/2021 1607 EDT Called patient to remind them about upcoming televideo appointment scheduled for 09/27/21. Left a voicemail. documented in this encounter Plan of Treatment Upcoming Encounters Date Type Department Care Team (Late st Contact Info) Description 04/09/2024 16:30 EDT Office Visit [facility] Hematology & Oncology [address] [phone] Erin Barillas MD [address] [place] [address] 2 [place] [phone] 05/18/2024 10:00 EST Office Visit [facility] Rheumatology & Immunology - [address] 173631 Tod Perez NP [address] [place] [address], [facility] 5 [place] [phone] 06/03/2024 9:00 EST Ancillary Procedure [facility] Cardiology Clinic [address] [place] [phone] 06/03/2024 9:00 EST Office Visit [facility] Cardiology Clinic [address] [place] [address] Claire Lopez NP 130 [facility] 21 [place] [address] documented as of this encounter Visit Diagnoses Not on filedocumented in this encounter Care Teams Hydraulic Tester Relationship Specialty Start Date End Date Layne Cai MD [address] [place] [address] PCP - General 04/05/20 12/16/23 Claire Lopez NP 130 [facility] [address] [address] Cardiovascular Disease 11/22/20 Tod Perez NP 111 [facility], Level [address] [place] [phone] Rheumatology 12/28/20 documented as of this encounter
--- OUTSIDE RECORDS SUMMARY | 2024-01-09 01:48 | XMS_ITS | Encounter Summary ---
Author Organization [facility] Address [address] [place] [address] Care Team Providers Care Consultant Technology Name Role Phone Layne Cai MD Primary Care Provider [phone] Claire Lopez NP Unavailable [phone] Tod Perez NP Unavailable [phone] Reason for Visit * Reason Onset Date Comments Medications Refill 07/25/2021 Pt in [facility] and is in need of a new RX Returning Call 07/25/2021 Encounter Details Date Type Department Care Team (Late st Contact Info) Description 07/25/2021 Refill [facility] Rheumatology & Immunology - [facility] [address] [place], [place] [phone] Tod Perez NP 111 [facility], Level [address] [place] [phone] Medications Refill (Pt in [facility] and is in need of a new RX); Returning Call Social History Tobacco Use Types Packs/Day Years [...] encounter Miscellaneous Notes * Telephone Encounter - Lane Uribe - 07/25/2021 1410 EST Patient's called to let us know this was sent to us in error. Patient's omeprazole filled by adifferent provider. Patient is all set. * Telephone Encounter - Raven Xei RN - 07/25/2021 1314 EST Left message for patient to call back. Not sure about the refill request we received today. I don'tfind a previous prescription for omeprazole from this office. documented in this encounter Plan of Treatment Upcoming Encounters Date Type Department Care Team (Late st Contact Info) Description 04/09/2024 16:30 EDT Office Visit [facility] Hematology & Oncology - [address] [phone] Erin Barillas MD [address] [place] [address], Level [address] [place] [phone] 05/18/2024 10:00 EST Office Visit [facility] Rheumatology & Immunology - [address] [phone] Tod Perez NP [address] [phone] 06/03/2024 9:00 EST Ancillary Procedure [facility] Cardiology Clinic [address] [place] [address] 06/03/2024 9:00 EST Office Visit [facility] Cardiology Clinic [address] [place] [address] [phone] Claire Lopez NP [address] [place] [phone] documented as of this encounter Visit Diagnoses Not on filedocumented in this encounter Care Teams Consultant Technology Relationship Specialty Start Date End Date Layne Cai MD [address] [place] [phone] PCP - General 04/05/20 12/16/23 Claire Lopez NP [address] [place] [address] Cardiovascular Disease 11/22/20 Tod Perez NP [address] [address] Rheumatology 12/28/20 documented as of this encounter
--- OUTSIDE RECORDS SUMMARY | 2024-01-09 01:48 | XMS_ITS | Encounter Summary ---
Author Organization [facility] Address [address] [place] [address] Care Team Providers Care Air Plant Engineer Name Role Phone Layne Cai MD Primary Care Provider [phone] Claire Lopez MANIFOLD BUILDER Unavailable [phone] Tod Perez NP Unavailable [phone] Reason for Visit * Reason Comments Pacemaker/Device Check Medtronic Encounter Details Date Type Department Care Team (Late st Contact Info) Description 04/25/2022 14:15 EST Office Visit [facility] [address] [place] [address] Claire Lopez NP 130 [facility] [address] [place] [address] Pacemaker (Primary Dx); Coronary artery disease involving [place] coronary artery of [place] heart without angina pectoris; Primary hypertension; Hypercholesteremia Social History Tobacco Use Types Packs/Day Years Used Date Smoking Tobacco: Former Cigarettes 3 20 0 09/15/1960 - 09/15/1980 Cigars Smokeless Tobacco: Never Tobacco Cessation:Counseling Given: Not [...] Sign Reading Time Taken Comments Blood Pressure 142/70 04/25/2022 1347 EST Pulse 64 04/25/2022 1347 EST Temperature - - Respiratory Rate - - Oxygen Saturation 98% 04/25/2022 1347 EST Inhaled Oxygen Concentration - - Weight 102.1 kg (225 lb) 04/25/2022 1347 EST Height 181 cm (5' 11.26) 04/25/2022 1347 EST Body Mass Index 31.15 04/25/2022 1347 EST documented in this encounter Functional Status [...] of this encounter Progress Notes * Claire Lopez, FESTUS - 04/25/2022 1415 EST Cardiology Clinic Note 04/25/22 13:54 Presenting complaint: Pacemaker/Device Check (Medtronic/) CHASITY Dacosta is a pleasant 76 yo with multiple medical co-morbidities including inflammatory polyarthropathy, hx benign neoplasm of the colon, polycythemia vera, GERD, BPH, stage III CKD, HLD, NATALIE, HTN, sinus node dysfunction s/p single chamber pacemaker who returns to the office for follow-up. From a cardiac perspective Praneeth is feeling well. He is accompanied today by his , Augustina. Continues to routinely check BP. It has been well controlled until the last couple of weeks where readings have been consistently around 140. They are planning to leave for [place] in the next several weeks and are going tostay until October. They may prolong their trip to go with friends to [facility]. Systems review A 10 point review of [...] chest pain ??? Coronary artery disease involving [place] coronary artery of [place] heart without angina pectoris ??? PV (polycythemia vera) (HCC-CMS) (HCC) Past Surgical History: Procedure Laterality Date ??? [...] daily. ??? hydroxyurea (HYDREA) 500 mg capsule TAKE 1 CAPSULE BY MOUTH DAILY 90 capsule 1 ??? metoprolol XL (TOPROL-XL) [...] Years since quittin.6 ??? Smokeless tobacco: Never ??? Tobacco comments: Quit >30 years ago Vaping Use ??? Vaping Use: Never used ??? Passive vaping exposure: Yes Substance and Sexual Activity ??? Alcohol use: Yes Comment: Occasional beer ??? Drug use: No ??? Sexual activity: Not on file Other Topics Concern ??? 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 General - A/Ox3, no acute distress [...] intact Peripheral neurology - no focal deficits [facility] Card[facility] Device Visit Global Compensation Analyst: Medtronic Device Type: Pacemaker Service: Office Visit Implant Date: 06/27/2020 Indication: Bradycardia Battery Longevity: 9.5 years Underlying rhythm: CHB with rare ventricular escape Mode: VVIR URL/LRL: 130/60 bpm Ventricle Paced: 94.5% Lead Impedance, threshold, and sensing testing all [...] Value Date CREATININE 1.04 12/28/2020 CREATININEEX 1.3 11/05/2021 Lab Results Component Value Date NA 139 12/28/2020 K 4.8 12/28/2020 KEXT 4.9 11/05/2021 CL 101 12/28/2020 CLEXT 106 11/05/2021 CO2 24 12/28/2020 CO2EXT 26.3 11/05/2021 Lab Results Component Value Date TSH 0.38 09/15/2013 Lab Results Component Value Date HGBA1C 6.0 04/08/2012 Lab Results Component Value Date CHOL 111 04/08/2012 HDL 22 04/08/2012 LDLBASE 66 04/08/2012 TRIG 117 04/08/2012 CHOLHDL 5.0 04/08/2012 Diagnostics [facility] 11/2020 CORONARY ARTERIES: The coronary circulation is [...] CAD Non flow limiting disease observed on [facility] 11/2020 involving the LAD, D1, LCx and [...] statin. Lifestyle as above Claire Lopez NP [facility] Cardiology documented in this encounter Plan of Treatment Upcoming Encounters Date Type Department Care Team (Late st Contact Info) Description 04/09/2024 16:30 EDT Office Visit [facility] Hematology & Oncology - [address] [phone] Erin Barillas MD 111 [facility], Level 2 [place] [phone] 05/18/2024 10:00 EST Office Visit [facility] Rheumatology & Immunology - [address] [address] Tod Perez NP [address] [place] [address], [facility] 5 [place] [phone] 06/03/2024 9:00 EST Ancillary Procedure [facility] Cardiology Clinic [address] [place] [phone] 06/03/2024 9:00 EST Office Visit [facility] Cardiology Clinic [address] [place] [address] Claire Lopez NP [address] [place] [phone] documented as of this encounter Visit Diagnoses Diagnosis Pacemaker- Primary Cardiac pacemaker in situ Coronary artery disease involving [place] coronary artery of [place] heart without angina pectoris Primary hypertension Unspecified essential hypertension Hypercholesteremia Pure hypercholesterolemia documented in this encounter Care Teams Air Plant Engineer Relationship Specialty Start Date End Date Layne Cai MD [address] [place] [phone] PCP - General 04/05/20 12/16/23 Claire Lopez NP [address] [place] [phone] Cardiovascular Disease 11/22/20 Tod Perez NP 111 [facility], [address] [place] [phone] Rheumatology 12/28/20 documented as of this encounter
--- OUTSIDE RECORDS SUMMARY | 2024-01-09 01:48 | XMS_ITS | Encounter Summary ---
Author Organization [facility] Address [address] [place] [address] Care Team Providers Care Material Worker Name Role Phone Layne Cai MD Primary Care Provider [phone] Claire Lopez BENCH HAND MACHINE Unavailable [phone] Tod Perez NP Unavailable [phone] Reason for Visit * Reason Comments Pacemaker/Device Check Medtronic Encounter Details Date Type Department Care Team (Late st Contact Info) Description 10/17/2021 15:00 EDT Office Visit [facility] Card[facility] Clinic [address] [place] [address] Claire Lopez NP 130 [facility] [address] [place] [address] Pacemaker (Primary Dx); Coronary artery disease involving [place] coronary artery of [place] heart without angina pectoris; Primary hypertension; Hypercholesteremia [...] this encounter Patient Instructions * Patient Instructions* Claire Lopez NP - 10/17/2021 15:00 EDT CONTINUE WITH ROUTINE HOME BP CHECKS IF CONSISTENTLY > 140/90 CALL OUR OFFICE OR MESSAGE IN [facility] documented in this encounter Progress Notes * Claire Lopez NP - 10/17/2021 1500 EDT Cardiology Clinic Note 10/17/21 14:57 Presenting [...] well. He is accompanied today by his ,Augustina. They got back to [place] a few weeks ago after spending 3 months in [place]. Have follow up with dairy lab technician later this month. Recent Chest CT to f/u presumed methotrexate toxicity showed resolution ofatelectasis. Also Praneeth recent had f/u with a sleep doctor who does not believe he has sleep apnea, a lthough in recent days Augustina has noticed more snoring and apneic episodes. His fitbit shows improved sleep scores when he wears his CPAP so he has been doing this lately to see if he feels any better. Reports having good days and bad but overall is doing well. Routinely checks his BP at home. For the most part this shows excellent control although for the past few days has been in the 130's/80's.In the past he has become dizzy and [...] chest pain ??? Coronary artery disease involving [place] coronary artery of [place] heart without angina pectoris ??? PV (polycythemia [...] by mouth 2 times daily. (Patient not taking:Reported on 06/19/2021) ??? 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 LVEF after stress 59%. 1. Pacemaker Device functioning normally with ample generator remaining. No arrhythmias. Refer to scanned documents for interrogation details. ?? 2. CAD Non flow limiting disease observed on [facility] 11/2020 involving the LAD, D1, LCx [...] statin. Lifestyle as above Claire Lopez NP [facility] Cardiology I spent a total of 40 [...] [facility] [address] [phone] Erin Barillas MD [address] [place] [address] 2 [place] [phone] 05/18/2024 10:00 EST Office Visit [facility] Rheumatology & Immunology [address] [phone] Tod Perez NP [address] [place] [address], [facility] 5 [place] [phone] 06/03/2024 9:00 EST Ancillary Procedure [facility] Cardiology Clinic 130 [facility] [place] [address] 06/03/2024 9:00 EST Office Visit [facility] Cardiology Clinic [address] [place] [address], [place] [address]152 Claire Lopez NP [address] [place] [address] [address] [place] [address] documented as of this encounter Visit Diagnoses Diagnosis Pacemaker- Primary Cardiac pacemaker in situ Coronary artery disease involving [place] coronary artery of [place] heart without angina pectoris Primary hypertension Unspecified essential hypertension Hypercholesteremia Pure hypercholesterolemia documented in this encounter Historical Medications * This list may reflect changes made after this encounter. Medication Sig Dispensed Refills Start Date End Date metroNIDAZOLE (METROGEL) 0.75 % gel Apply topically as needed. 10/05/2021 added in this encounter Care Teams Material Worker Relationship Specialty Start Date End Date Layne Cai MD [address] [place] [phone] PCP - General 04/05/20 12/16/23 Claire Lopez NP [address] [place] [address] [phone] Cardiovascular Disease 11/22/20 Tod Perez NP [address] [place] [address], [facility] 5 [place] [phone] Rheumatology 12/28/20 documented as of this encounter
--- OUTSIDE RECORDS SUMMARY | 2024-01-09 01:48 | XMS_ITS | Encounter Summary ---
Author Organization [facility] Address [address] [place] [address] Care Team Providers Care Farm Labor Contractor Name Role Phone Layne Cai MD Primary Care Provider [phone] Claire Lopez ELECTRONIC INDUCTION HARDENER Unavailable [phone] Tod Perez ELECTRONIC INDUCTION HARDENER Unavailable Vianey Bocanegra APRN Primary Care Provider [phone] Reason for Visit * Reason Onset Date Comments Medications Refill 05/11/2022 Encounter Details Date Type Department Care Team (Late st Contact Info) Description 05/11/2022 Refill [facility] Hematology & Oncology - [address] [phone] Erin Barillas MD 111 [facility] Level [address] [place] [address] Medications Refill Social History Tobacco [...] TAKE 1 CAPSULE BY MOUTH DAILY 90 Capsule 1 05/13/2022 10/01/2022 documented in this encounter Miscellaneous Notes * Telephone Encounter - Flakita Abreu RN - 05/13/2022 1204 ESTFrom: Praneeth Villanueva To: Office of Erin Barillas MD Sent: 05/11/2022 20:21 EST Subject: Medication Renewal Request Refills have been requested for the following medications: hydroxyurea (HYDREA) 500 mg capsule [Erin Barillas] Preferred pharmacy: [facility] [address] documented in this encounter Plan of Treatment Upcoming Encounters Date Type Department Care Team (Late st Contact Info) Description 04/09/2024 16:30 EDT Office Visit [facility] Hematology & Oncology - [address] [phone] Erin Barillas MD [address] [place] [phone] 05/18/2024 10:00 EST Office Visit [facility] Rheumatology & Immunology - [address] [phone] Tod Perez NP [address] [facility] [address] [phone] 06/03/2024 9:00 EST Ancillary Procedure [facility] Cardiology Clinic [address] [place] [phone] 06/03/2024 9:00 EST Office Visit [facility] Cardiology Clinic [address] [place] [address] Claire Lopez NP [address] [place] [phone] documented as of this encounter Visit Diagnoses Not on filedocumented in this encounter Discontinued Medications Medication Sig Discontinue Reason Start Date End Da te hydroxyurea (HYDREA) 500 mg capsule TAKE 1 CAPSULE BY MOUTH DAILY Reorder 11/15/2021 05/11/2022 documented as of this encounter Care Teams Farm Labor Contractor Relationship Specialty Start Date End Date Layne Cai MD [address] [place] [address] PCP - General 04/05/20 12/16/23 Vianey Bocanegra APRN 26 [facility] [address] [place] [address] PCP - General 12/17/23 Claire Lopez NP [address] [place] [phone] Cardiovascular Disease 11/22/20 Tod Perez NP [address] [phone] Rheumatology 12/28/20 documented as of this encounter
--- OUTSIDE RECORDS SUMMARY | 2024-01-09 01:48 | XMS_ITS | Encounter Summary ---
Author Organization [facility] Address [address] [place] [address] Care Team Providers Care Rehab Trainer Name Role Phone Layne Cai MD Primary Care Provider [phone] Claire Lopez NP Unavailable [phone] Tod Perez NP Unavailable [phone] Reason for Visit * Reason Comments Follow-up 5 month follow up, i nflammatory arthritis Encounter Details Date Type Department Care Team (Late st Contact Info) Description 10/24/2022 13:30 EDT Office Visit [facility] Rheumatology & Immunology - [address] [phone] Tod Perez, STRIKE PLATE ATTACHER [address] [place] [address], [address] [place] [address] Inflammatory arthritis (Primary Dx); Encounter [...] Sign Reading Time Taken Comments Blood Pressure 155/72 10/24/2022 1310 EDT Pulse 61 10/24/2022 1310 EDT Temperature - - Respiratory Rate - - Oxygen Saturation - - Inhaled Oxygen Concentration - - Weight 101.6 kg (224 lb) 10/24/2022 1310 EDT Height 181.5 cm (5' 11.46) 10/24/2022 1310 EDT Body Mass Index 30.84 10/24/2022 1310 EDT documented in this encounter [...] * Patient Instructions* Tod Perez NP - 10/24/2022 13:30 EDT Continue current meds. Cmp today Then labs every 3-4 months 4. Recommend covid bivariant #1 and then #2 2 months after #1, hold sulfasalzine 1-2 weeks after then restart or depending what Dr. Barillas recommends Recommend shingrix 5 f/u early May 2023 documented in this encounter Progress Notes * Tod Perez NP - 10/24/2022 1330 EDT Images from the original note were not included. Patient ID: Deon Villanueva is a 77 y.o. y.o. male Subjective: Chief Complaint: Follow-up (5 month follow up, inflammatory arthritis ) HPI: [...] follow-up visit. ?? 04/03/[address] [facility] is concerned for MTX ILD/fibrosis. Reviewed that [...] pounds (lbs) Duration of AM joint stiffness Few min hours / min Eye pain or dryness X Numbness/tingling X Mouth or nose sores X Heart burn / Nausea X Chest pain X Diarrhea X Shortness of Breath X Blood in stool X Cough X X Burning on urination X Skin rash X Hand/Foot color change in cold X they discussed covid vaccines with Dr. Barillas- might not get next vaccine 2/2 severe reactions, Dr. Barillas is in agreement, he would be interested in treatment for covid if need pt had [address] chest planned at [facility] for Dr. Tellez Denies any other joint pains or swelling. [...] chest pain ??? Coronary artery disease involving [place] coronary artery of [place] heart without angina pectoris ??? PV (polycythemia vera) ([facility]) Past Medical History: Diagnosis Date ??? Arthritis [...] as documented in Prism. Objective: BP (!) 155/72 (BP Cuff Location: Right arm, BP Patient Position: Sitting, BP Cuff Sizes: Adult, long) Pulse 61 Ht 181.5 cm (71.46) Wt (!) 101.6 kg (224 lb) BMI 30.84 kg/m?? General: No acute distress. Alert, fully [...] is present. Appropriate range ofmotion present. LABS: Results: SURGICAL PATHOLOGY Status: Final result (Collected: 10/23/2016 18:29) ?? SURGICAL PATHOLOGY Status: Final result ?Visible to patient: Yes (Stylr) Next appt: 05/25/2018 at 11:40 in Rheumatology (Sudhir Rosales MD) Order: [id number] ? 1yr ago ?? Pathology Report: SURGICAL PATHOLOGY REPORT Reports generated via electronic interface contain original data; however they are lacking the format of the original report. Caution should be taken when reading/interpreting unformatted reports. Name: ? DEON VILLANUEVA ? Accession #: ? [id number] ? : ? 1945 (Age: 71) ??M ?Collect Date: ? 10/23/2016 ? Location: ? [facility] ? Receive Date: ? 10/24/2016 ? Provider: SHREYA LEA MD Copy to: MINDY SZYMANSKI EMERGENCY MANAGEMENT DIRECTOR ? Final Pathologic Diagnosis: A. ??GASTROESOPHAGEAL JUNCITON, [...] Status: Final result ?Visible to patient: Yes (Stylr) Next appt: 05/25/2018 at 11:40 in Rheumatology (Sudhir Rosales MD) Order: [id number] ? 1yr ago ?? Pathology Report: SURGICAL PATHOLOGY REPORT Reports generated via electronic interface contain original data; however they are lacking the format of the original report. Caution should be taken when reading/interpreting unformatted reports. Name: ? DEON VILLANUEVA ? Accession #: ? [id number] ? : ? 1945 (Age: 71) ??M ?Collect Date: ? 10/23/2016 ? Location: ? [facility] ? Receive Date: ? 10/24/2016 ? Provider: SHREYA LEA MD Copy to: MINDY SZYMANSKI EMERGENCY MANAGEMENT DIRECTOR ? Final Pathologic Diagnosis: A. ??GASTROESOPHAGEAL JUNCITON, [...] 7:55 AM ?XR CHEST 2 VIEWS (Order [id number]) Status: Final result (Exam End: 05/19/2020 16:15) Results XR CHEST 2 VIEWS ( (Order [id number]) XR CHEST 2 VIEWS Order: [id number] Status: Final result ?Visible to patient: Yes (MyChart) Next appt: None Details Reading Physician Reading Date Result Priority Dustin Ibrahim MD [phone] 05/19/2020 Narrative & Impression EXAM: RADIOLOGY/CHEST PA LAT EX. D/ (2542) CLINICAL INFORMATION: Z95.0 PACEMAKER PLACEMENT PRIOR TO [...] Ibrahim MD XR CHEST 2 VIEWS (Order [id number]) Status: Final result (Exam End: 11/09/2020 16:33) Results XR CHEST 2 VIEWS ( (Order [id number]) XR CHEST 2 VIEWS Order: [id number] Status: Final result ?Visible to patient: Yes (seen) Next appt: 01/22/2021 at 10:45 in Cardiology (Claire Lopez APRN) 0 Result Notes Details Reading Physician Reading Date Result Priority Gerald Garcia MD [phone] 11/09/2020 Narrative & Impression EXAM: RADIOLOGY/CHEST PA LAT EX. D/ (9847) CLINICAL INFORMATION: SOB/cp PROCEDURE INFORMATION: Exam: XR [...] normal. 3. Previously Dr. Alecia Calderon, at [facility] was concerned for MTX ILD/fibrosis. MTX d/'c'd [...] complete 7. DXA at [facility]- osteopenia- neg for spinal fx. Reviewed calcium and vit D recommendations. 9 dependent edema 2+ has been taking a break from his compression stockings- 2/2 increased restlessleg - drinking pick juice per his PCP for restless leg, feels like it has helped some 10 recommend shingrix covid 12/1/22 did not stop SSZ , had -10lb wt loss, loss taste and smell, arthralgias, diarrha - treated with molpinivir, -still has a lingering cough Encounter Diagnoses Name Primary? Inflammatory arthritis Yes ??? Encounter for long-term (current) use of medications PLAN: 1. Continue current meds. 2. Cmp today 3. Then labs every 3-4 months 4. Recommend covid bivariant #1 and then #2 2 months after #1, hold sulfasalzine 1-2 weeks after then restart or depending what Dr. Barillas recommends Recommend shingrix 5 f/u early May 2023 1. Inflammatory arthritis 2. Encounter for long-term (current) use of medications No orders of the defined types were placed in this encounter. Barriers to learning identified: No Patient verbalizes understanding and agrees with plan Yes I was directly supervised by: Dr. Warner They were present in clinic and available for consult if needed. Tod Perez NP 10/24/2022 13:21 I spent a total of 30 minutes on the date of this encounter meeting with the patient and reviewing documentation/coordinating care as described in the above note. No procedures were performed at the time of the visit. documented in this encounter Plan of Treatment Upcoming Encounters Date Type Department Care Team (Late st Contact Info) Description 04/09/2024 16:30 EDT Office Visit [facility] Hematology & Oncology - [address] [phone] Erin Barillas MD [address] [place] [address] 2 [place] [phone] 05/18/2024 10:00 EST Office Visit [facility] Rheumatology & Immunology [address] [phone] Tod Perez NP [address] [place] [address] 5 [place] [phone] 06/03/2024 9:00 EST Ancillary Procedure [facility] Cardiology Clinic [address] [place] [address] 06/03/2024 9:00 EST Office Visit [facility] Cardiology Clinic [address] [place] [address] Claire Lopez NP [address] [place] [phone] documented as of this encounter Visit Diagnoses Diagnosis Inflammatory arthritis- Primary Unspecified inflammatory polyarthropathy Encounter for long-term (current) use of medications Encounter for long-term (current) use of other medications documented in this encounter Orders Lab Orders Without Results Count Last Ordered D ate First Ordered Date COMPREHENSIVE METABOLIC PANEL (CMP) 1 10/24 documented in this encounter Care Teams Rehab Trainer Relationship Specialty Start Date End Date Layne Cai MD [address] [place] [phone] PCP - General 04/05/20 12/16/23 Claire Lopez NP [address] [place] [phone] Cardiovascular Disease 11/22/20 Tod Perez NP 111 [facility] 5 [place] [phone] Rheumatology 12/28/20 documented as of this encounter
--- OUTSIDE RECORDS SUMMARY | 2024-01-09 01:48 | XMS_ITS | Encounter Summary ---
Author Organization [facility] Address [address] [place] [address] Care Team Providers Care Teacher Selection Specialist Name Role Phone Layne Cai MD Primary Care Provider [phone] Claire Lopez PIANO INSTRUCTOR Unavailable [phone] Tod Perez PIANO INSTRUCTOR Unavailable [phone] Reason for Visit * Reason Comments Medications Refill Encounter Details Date Type Department Care Team (Late st Contact Info) Description 10/10/2022 Refill [facility] Cancer Center Hematology & Oncology - [facility] [address] [place], [place] [phone] Renate José, PIANO INSTRUCTOR 111 [facility], Level 2 [place] [address] Medications Refill Social History Tobacco [...] Office Visit [facility] Cancer [place] Hematology & Oncology - [address] [phone] Erin Barillas MD [address] [place] [address] 2 [place] [phone] 05/18/2024 10:[address] [facility] Rheumatology & Immunology [address] [phone] Tod Perez NP [address] [place] [address] 5 [place] [phone] 06/03/2024 9:[address] [facility] [address] [place] [address] 06/03/2024 9:[address] [facility] [address] [place] [address] Claire Lopez NP [address] [place] [address]- [address] [address] documented as of this encounter Visit Diagnoses Not on filedocumented in this encounter Care Teams Teacher Selection Specialist Relationship Specialty Start Date End Date Layne Cai MD [address] [place] [phone] PCP - General 04/05/20 12/16/23 Claire Lopez NP [address] [place] [address] 21 [place] [address] Cardiovascular Disease 11/22/20 Tod Perez NP [address] [place] [address], Level 5 [place] [address] Rheumatology 12/28/20 documented as of this encounter
--- OUTSIDE RECORDS SUMMARY | 2024-01-09 01:48 | XMS_ITS | Encounter Summary ---
Author Organization [facility] Address [address] [place] [address] Care Team Providers Care General Agent Name Role Phone Layne Cai MD Primary Care Provider Claire Lopez CASH SHORTAGE INVESTIGATOR Unavailable [phone] Tod Perez CASH SHORTAGE INVESTIGATOR Unavailable [phone] Reason for Visit * Reason Onset Date Comments Appointment Related 09/27/2021 Encounter Details Date Type Department Care Team (Late st Contact Info) Description 09/27/2021 Telephone [facility] Hematology & Oncology - [facility] [address] [place], [place] [phone] Reshma Hilario, CASH SHORTAGE INVESTIGATOR 111 [facility] Level 2 [place] [address] Appointment Related Social History Tobacco [...] * Telephone Encounter - Karina Bustamante - 09/27/2021 1213 EDT pts 09/27 zoom now on 10/04 due to AB feeling sick documented in this encounter Plan of Treatment Upcoming Encounters Date Type Department Care Team (Late st Contact Info) Description 04/09/2024 16:30 EDT Office Visit [facility] [place] Hematology & Oncology - [address] [phone] Erin Barillas MD [address] [place] [address] 2 [place] [phone] 05/18/2024 10:00 EST Office Visit [facility] Rheumatology & Immunology - [address] [phone] Tod Perez NP [address] [place] [address] 5 [place] [phone] 06/03/2024 9:00 EST Ancillary Procedure [facility] [address] [place] [phone] 06/03/2024 9:00 EST Office Visit [facility] [address] [place] [address] [phone] Claire Lopez NP 130 [facility] [address] [place] [address] documented as of this encounter Visit Diagnoses Not on filedocumented in this encounter Care Teams General Agent Relationship Specialty Start Date End Date Layne Cai MD 26 [place] [phone] PCP - General 04/05/20 12/16/23 Claire Lopez NP 130 [facility] 21 [place] [address] Cardiovascular Disease 11/22/20 Tod Perez NP 111 [facility], Level 5 [place] [address] Rheumatology 12/28/20 documented as of this encounter
--- OUTSIDE RECORDS SUMMARY | 2024-01-09 01:48 | XMS_ITS | Encounter Summary ---
Author Organization [facility] Address [address] [place] [address] Care Team Providers Care Plastics Bench Mechanic Name Role Phone Layne Cai MD Primary Care Provider [phone] Claire Lopez HAIR DRESSER Unavailable [phone] Tod Perez HAIR DRESSER Unavailable [phone] Reason for Visit * Reason Comments Follow-up Encounter Details Date Type Department Care Team (Late st Contact Info) Description 11/15/2021 10:00 EDT Office Visit [facility] Cancer Center Hematology & Oncology - [facility] [address] [place], [place] [phone] Erin Barillas MD 111 [facility], Level 2 [place] [address] Polycythemia vera (HCC) (HCC-CMS) (Primary Dx) Social History Tobacco Use [...] kg (227 lb 1.6 oz) 11/15/2021 1016 ED T Height 181.8 cm (5' 11.58) 11/15/2021 1016 [...] CAPSULE BY MOUTH DAILY 90 capsule 1 11/15/2021 05/11/2022 documented in this encounter Progress Notes * Erin Barillas MD - 11/15/2021 1000 EDT [...] today with his spouse. Received phlebotomy in [place], [place] in August 2021. Tolerated this well. Continues to take Hydrea 500mg daily without any issues. No specific concernstoday. BP elevated in the clinic but reports that it runs in SBP 120-130s at home. REVIEW OF SYSTEMS: The remainder of a 10-point review of systems, as filled out on the patient's symptom report form, is otherwise negative. SOCIAL HISTORY: Retired. Worked for the [employer] [place] [employer]. Former smoker with 20 pack year smoking history, quit 40 years ago. 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 Family history: No family history of cancer, thrombosis or other blood disorders that patient is aware of. PHYSICAL EXAM: Vitals were not performed for this video visit. General: Well- appearing, in no acute distress. Alert and oriented to person, place, date and time. HEENT: Normocephalic. Resp: Lungs clear to auscultation Ext: No edema. Skin: Left upper extremity skin lesion noted. Labs: Reviewed in [facility] - Hct 46% Labs ordered, reviewed and interpreted by [...] Hct <45. Will arrange for this at [facility] per patient request 3. Will send repeat lab orders for CBC with Diff, CMP to [facility] 4. Recommend yearly whole body skin examination given increased risk of secondary skin cancers while on Hydrea. He has a roofer helper that he sees locally and will follow [...] Info) Description 04/09/2024 16:30 EDT Office Visit [facility] Hematology & Oncology - [address] 189561 Erin Barillas MD [address] [place] [address] 2 [place] [phone] 05/18/2024 10:[address] [facility] Rheumatology & Immunology - [address] [phone] Tod Perez NP [address] [place] [address], [facility] 5 [place] [phone] 06/03/2024 9:00 EST Ancillary Procedure [facility] [address] [place] [phone] 06/03/2024 9:00 EST Office Visit [facility] [address] [place] [address] [phone] Claire Lopez NP [address] [place] [address]A [address] [phone] documented as of this encounter Visit Diagnoses Diagnosis Polycythemia vera (HCC-CMS)- Primary documented in this encounter Discontinued Medications Medication Sig Discontinue Reason Start Date End Da te doxycycline (VIBRA-TABS) 100 mg tablet Take 100 mg by mouth 2 times daily. 11/15/2021 hydroxyurea (HYDREA) 500 mg capsule TAKE 1 CAPSULE BY MOUTH DAILY Reorder 11/13/2021 11/15/2021 documented as of this encounter Care Teams Plastics Bench Mechanic Relationship Specialty Start Date End Date Layne Cai MD 26 [place] [phone] PCP - General 04/05/20 12/16/23 Claire Lopez NP [address] [place] [address] 21 [place] [phone] Cardiovascular Disease 11/22/20 Tod Perez NP [address] [place] [address], Level 5 [place] [phone] Rheumatology 12/28/20 documented as of this encounter
--- OUTSIDE RECORDS SUMMARY | 2024-01-09 01:48 | XMS_ITS | Encounter Summary ---
Author Organization [facility] Address [address] [place] [address] Care Team Providers Care Shipping And Receiving Specialist Name Role Phone Layne Cai MD Primary Care Provider Claire Lopez COMPUTATOR Unavailable [phone] Tod Perez COMPUTATOR Unavailable [phone] Reason for Visit * Reason Comments Follow-up Encounter Details Date Type Department Care Team (Late st Contact Info) Description 05/23/2022 13:00 EST Telemedicine [facility] Cancer Center Hematology & Oncology - [facility] [address] [place], [place] [phone] Reshma Hilario, COMPUTATOR 111 [facility], Level 2 [place] [address] PV (polycythemia vera) ([facility]) (Primary Dx) Social History Tobacco Use Types [...] Progress Notes * Reshma Hilario NP - 05/23/2022 1300 EST DATE: 05/23/22 The concept of ???Telemedicine?? has been described [...] visit. The location of the patient : [place], [place] The location of the provider: [place], [place] The following staff and their role did participate in today's encounter visit: Reshma Hilario NP HEMATOLOGIC HISTORY: Mr. Villanueva is a 76 [...] history of blood clots. He was initially s tarted on hydroxyurea 500 mg po bid, but developed cytopenias. His dose was decreased to hydroxyurea 500 mg po daily. He receives intermittent phlebotomy. INTERVAL HISTORY: Praneeth returns for follow-up. His is with him on video. He tested positive for COVID-19 on 05/12/22 and was symptomatic. His PCP prescribed antiviral therapy, and he reports he has completely recovered. He is vaccinated for COVID- 19 but has not yet received the bivalent COVID-19 booster. He has received his flu vaccine. He reports no side effects from hydroxyurea therapy, which he continues totake daily. He and his are planning to travel to [place] and [place], leaving around June 23 and returning around October 14. He did require TP while in [place] last year, and they stated it wasactually easier to do it there than in [place]. REVIEW OF SYSTEMS: The remainder of a 10-point review of systems, as filled out on the patient's symptom report form, is otherwise negative. Outpatient Medications Marked as Taking for the 05/23/22 encounter (Appointment) with Reshma Hilario NP Medication Sig Dispense Refill ??? aspirin 81 mg EC tablet Take 81 mg by mouth daily. ??? finasteride (PROSCAR) 5 mg tablet Take 5 mg by mouth daily. ??? hydroxyurea (HYDREA) 500 mg capsule TAKE 1 CAPSULE BY MOUTH DAILY 90 Capsule 1 ??? metoprolol XL (TOPROL-XL) 25 mg [...] 1 tab twice daily 180 Tablet 3 SOCIAL HISTORY: Retired. Worked for the [place] [email or web address]. Former smoker with 20 pack year smoking history, quit 40 years ago. 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 Family history: No family history of cancer, thrombosis or other blood disorders that patient is aware of. PHYSICAL EXAM: Vitals were not performed for this video visit. General: Well- appearing, in no acute distress. Alert and oriented to person, place, date and time. HEENT: Normocephalic. Resp: No distress noted, breathing comfortably on room air. LABS: Pending- these were drawn this morning at [facility]. However, his has the report and tells me his hematocrit is 44.7. 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 Epo [...] receives intermittent phlebotomy at [facility], most recently in August, while traveling in [place]. While I do not have labs to review personally at today's visit (they were drawn locally this morning), his is able to report that his hematocrit is 44.7. While we would not phlebotomize him unless > 45, I am somewhat suspicious that in light of his recent COVID infection, once fully recovered, he may be higher. We discussed that it would not be unreasonable to plan a phlebotomy before he leaves the [facility] (as he's not back until October) but he had no trouble having labs drawn and a phlebotomy performed while in [place]. Therefore, we'll mail the patient a copy for a lab orderand an order for phlebotomy as needed should hematocrit increase over 45. PLAN: 1. Continue hydroxyurea 500 mg po daily. 2. We'll mail an order to patient for CBC and phlebotomy PRN if hematocrit > [address] 3. Continue CBC and CMP every 3 months. We'll request a copy of his labs from today. 4. Continue aspirin 81 mg po daily for secondary prophylaxis. 5. Follow-up with us in October when returning from [place]. Reshma Hilario NP (Annie) Hematology Oncology I spent a total of 30 minutes [...] [facility] Hematology & Oncology - [address] [phone] Erin Barillas MD [address] [place] [address] 2 [place] [phone] 05/18/2024 10:00 EST Office Visit [facility] Rheumatology & Immunology - [address] [phone] Tod Perez NP [address] [place] [address], [facility] 5 [place] [phone] 06/03/2024 9:00 EST Ancillary Procedure [facility] [address] [place] [address] [phone] 06/03/2024 9:00 EST Office Visit [facility] [address] [place] [address] [phone] Claire Lopez NP [address] [place] [phone] documented as of this encounter Visit Diagnoses Diagnosis PV (polycythemia vera) ([facility])- Primary Polycythemia vera documented in this encounter Care Teams Shipping And Receiving Specialist Relationship Specialty Start Date End Date Layne Cai MD [address] [place] [phone] PCP - General 04/05/20 12/16/23 Claire Lopez NP [address] [place] [phone] Cardiovascular Disease 11/22/20 Tod Perez NP 111 [facility], Level 5 [place] [phone] Rheumatology 12/28/20 documented as of this encounter
--- OUTSIDE RECORDS SUMMARY | 2024-01-09 01:48 | XMS_ITS | Encounter Summary ---
Author Organization [facility] Address [address] [place] [address] Care Team Providers Care Ornamental Machine Operator Name Role Phone Layne Cai MD Primary Care Provider [phone] Claire Lopez SILVER PLATER Unavailable [phone] Tod Perez SILVER PLATER Unavailable [phone] Reason for Visit * Reason Comments Follow-up Encounter Details Date Type Department Care Team (Late st Contact Info) Description 02/14/2022 14:00 EDT Office Visit [facility] Cancer Center Hematology & Oncology - [address] [phone] Erin Barillas MD 111 [facility], Level 2 [place] [address] PV (polycythemia vera) (HCC-CMS) (HCC) (HCC-CMS) (Primary Dx) Social History Tobacco [...] Sign Reading Time Taken Comments Blood Pressure 161/77 02/14/2022 1346 EDT Pulse 79 02/14/2022 1346 EDT Temperature 36.4 ??C (97.5 ??F) 02/14/2022 1346 EDT Respiratory Rate 16 02/14/2022 1346 EDT Oxygen Saturation 99% 02/14/2022 1346 EDT Inhaled Oxygen Concentration - - Weight 101.2 kg (223 lb 3.2 oz) 02/14/2022 1346 EDT Height - - Body Mass Index 30.9 12/18/2021 0958 EDT documented in this encounter [...] Progress Notes * Erin Barillas MD - 02/14/2022 1400 EDT DATE: 02/14/22 HEMATOLOGIC HISTORY: Mr. Villanueva is a 76 [...] today with his spouse. Received phlebotomy in [place], [place] in August 2021. Tolerated this well. Continues to take Hydrea 500mg daily without any issues. No specific concernstoday. REVIEW OF SYSTEMS: The remainder of a 10-point review of systems, as filled out on the patient's symptom report form, is otherwise negative. SOCIAL HISTORY: Retired. Worked for the [employer]. Former smoker with 20 pack year smoking history, quit 40 years ago. 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 Family history: No family history [...] in Epic ASSESSMENT: Praneeth Villanueva is a 76 y.o. male with a JAK2 positive myeloproliferative neoplasm, Polycythemia vera. He was started on hydroxyurea 1,000 mg daily in November, but this was complicated by cytopenias.He is now on hydroxyurea 500 mg po daily which is well tolerated. Also undergoes intermittent phlebotomy. PLAN: 1. Continue Hydrea 500mg daily 2. Recommend phlebotomy to maintain goal Hct <45. Will likely plan to obtain another phlebotomy when patient is in [place] as needed 3. Up to date with annual dermatologic evaluation 4. Up to date with COVID vaccination series and booster. He is thinking about getting the 4th booster. RTC in 3 months Erin Barillas MD I spent 20 minutes related to this patient's care today, which includes time with the patient, timereviewing medical records and reviewing imaging reports and laboratory results, time updating the chart information, and time composing this note. documented in this encounter Plan of Treatment Upcoming Encounters Date Type Department Care Team (Late st Contact Info) Description 04/09/2024 16:30 EDT Office Visit [facility] Cancer Center Hematology & Oncology - Main [address] [address] Erin Barillas MD [address] [place] [address] 2 [place] [phone] 05/18/2024 10:00 EST Office Visit [facility] Rheumatology & Immunology - [address] [phone] Tod Perez NP [address] [place] [phone] 06/03/2024 9:00 EST Ancillary Procedure [facility] [address] [place] [address] [phone] 06/03/2024 9:00 EST Office Visit [facility] [address] [place] [address] [phone] Claire Lopez NP [address] [place] [phone] documented as of this encounter Visit Diagnoses Diagnosis PV (polycythemia vera) ([facility])- Primary Polycythemia vera documented in this encounter Care Teams Ornamental Machine Operator Relationship Specialty Start Date End Date Layne Cai MD [address] [place] [phone] PCP - General 04/05/20 12/16/23 Claire Lopez NP [address] [place] [phone] Cardiovascular Disease 11/22/20 Tod Perez NP [address] [place] [phone] Rheumatology 12/28/20 documented as of this encounter
--- OUTSIDE RECORDS SUMMARY | 2024-01-09 01:48 | XMS_ITS | Encounter Summary ---
Author Organization [facility] Address [address] [place] [address] Care Team Providers Care Manager Retail Name Role Phone Layne Cai MD Primary Care Provider [phone] Claire Lopez SENIOR APPLICATIONS DEVELOPER Unavailable [phone] Tod Perez SENIOR APPLICATIONS DEVELOPER Unavailable [phone] Reason for Visit * Reason Onset Date Comments Results 05/23/2022 Encounter Details Date Type Department Care Team (Late st Contact Info) Description 05/23/2022 Telephone [facility] Cancer Center Hematology & Oncology - [facility] [address] [place] [address] Erin Barillas MD 111 [facility] Level 2 [place] [address] Results Social History Tobacco Use [...] * Telephone Encounter - Augustina Salazar - 05/23/2022 1411 EST LABS ENTERED FROM [facility]. Augustina Salazar 05/23/2022 14:12 documented in this encounter Plan of Treatment Upcoming Encounters Date Type Department Care Team (Late st Contact Info) Description 04/09/2024 16:30 EDT Office Visit [facility] Hematology & Oncology [address] [phone] Erin Barillas MD [address] [place] [address] 2 [place] [address] 05/18/2024 10:00 EST Office Visit [facility] Rheumatology & Immunology - [address] [phone] Tod Perez NP [address] [place] [address], [facility] 5 [place] [phone] 06/03/2024 9:00 EST Ancillary Procedure [facility] [address] [place] [phone] 06/03/2024 9:00 EST Office Visit [facility] [address] [place] [address] [phone] Claire Lopez NP [address] [place] [address] [address] [place] [phone] documented as of this encounter Procedures Procedure Name Priority Date/Time Associated Diagnosis Comments COMPREHENSIVE METABOLIC PANEL (ONCOLOGY USE ONLY-INC MG) Routine 05/23/2022 COMPLETE BLOOD COUNT AND DIFFERENTIAL Routine 05/23/2022 documented in this encounter Results * (ABNORMAL) COMPLETE BLOOD COUNT AND DIFFERENTIAL (05/23/2022) WBC, External 9.40 [facility] RBC, External 5.51 [facility] Hemoglobin, External 12.8(A) 13.5 - 17.5 [facility] HCT, External 44.7 [facility] MCV, External 81 [facility] MCH, External 23.2(A) 27.0 - 33.0 [facility] MCHC, External 28.6(A) 32.0 - 36.0 [facility] PLT, External 371 [facility] RDW-CV, External 19.3(A) 11.8 - 14.1 [facility] Neutrophils, External 75.5 [facility] Lymphocytes, External 13.0 [facility] Monocytes, External 7.6 [facility] Eosinophils, External 1.6 [facility] Basophils, External 0.6 [facility] ABS Neutrophils, External 7.10(A) 1.2 - 6.7 [facility] ABS Lymphs, External 1.22 [facility] ABS Monocytes, External 0.71 [facility] ABS Eosinophils, External 0.15 [facility] ABS Basophils, External 0.06 [facility] Blood VENOUS BLOOD / Unknown 05/23/2022 Historical Provider MD PACKAGES & DNA ND OBE ORDERABLES [facility] * (ABNORMAL) COMPREHENSIVE METABOLIC PANEL (ONCOLOGY USE ONLY-INC MG) (05/23/2022) Calcium, External 9.2 [facility] CO2, External 30.4 [facility] AST, External 19 [facility] ALT, External 23 [facility] Bilirubin, Total, External 0.5 [facility] Creatinine, External 1.4(A) 0.70 - 1.30 [facility] Calculated Calcium, External [facility] Anion Gap, External [facility] Total Protein, External 7.4 [facility] Potassium, External 4.3 [facility] Total Alkaline Phosphatase, External 76 [facility] Albumin, External 3.9 [facility] BUN, External 19(A) 7 - 18 [facility] GFR, Calculated, External 51.45 [facility] Fasting?, External [facility] Chloride, External 102 [facility] Glucose, Serum, External 128(A) 74 - 106 [facility] Sodium, External 140 [facility] Magnesium, External [facility] Blood VENOUS BLOOD / Unknown 05/23/2022 Historical Provider CHEMISTRY & BLOOD GAS ORDERABLES [facility] documented in this encounter Visit Diagnoses Not on filedocumented in this encounter Care Teams Manager Retail Relationship Specialty Start Date End Date Layne Cai MD [address] [place] [phone] PCP - General 04/05/20 12/16/23 Claire Lopez NP [address] [place] [address] [address] [place] [phone] Cardiovascular Disease 11/22/20 Tod Perez NP 111 [facility], Level 5 [place] [phone] Rheumatology 12/28/20 documented as of this encounter
--- OUTSIDE RECORDS SUMMARY | 2024-01-09 01:48 | XMS_ITS | Encounter Summary ---
Author Organization [facility] Address [address] [place] [address] Care Team Providers Care Denture Model Maker Name Role Phone Layne Cai MD Primary Care Provider [phone] Claire Lopez RABBLER Unavailable [phone] Tod Perez RABBLER Unavailable Vianey Bocanegra APRN Primary Care Provider [phone] Reason for Visit * Reason Onset Date Comments Medications Refill 10/01/2022 Encounter Details Date Type Department Care Team (Late st Contact Info) Description 10/01/2022 Refill [facility] Hematology & Oncology - [facility] [address] [place], [place] [phone] Renate José RABBLER 111 [facility] Level 2 [place] [phone] Medications Refill Social History Tobacco Use Types [...] Capsule by mouth daily. 30 Capsule 2 10/02/2022 02/01/2023 documented in this encounter Miscellaneous Notes * Telephone Encounter - Libra Rich RN - 10/01/2022 1739 EDTFrom: Praneeth Villanueva To: Office of Renate José NP Sent: 10/01/2022 2:01 EDT Subject: Medication Renewal Request Refills have been requested for the following medications: hydroxyurea (HYDREA) 500 mg capsule [Renate José] Preferred pharmacy: [id number] documented in this encounter Plan of Treatment Upcoming Encounters Date Type Department Care Team (Late st Contact Info) Description 04/09/2024 16:30 EDT Office Visit [facility] Hematology & Oncology - [address] [phone] Erin Barillas MD [address] [place] [address], Level 2 [place] [phone] 05/18/2024 10:00 EST Office Visit [facility] Rheumatology & Immunology [address] 064481 Tod Perez NP 111 [facility] 5 [place] [address] 06/03/2024 9:00 EST Ancillary Procedure [facility] [address] [place], [place] [phone] 06/03/2024 9:00 EST Office Visit [facility] [address] [place] [address] Claire Lopez NP [address] [address] documented as of this encounter Visit Diagnoses Diagnosis PV (polycythemia vera) ([facility])- Primary Polycythemia vera documented in this encounter Discontinued Medications Medication Sig Discontinue Reason Start Date End Da te hydroxyurea (HYDREA) 500 mg capsule TAKE 1 CAPSULE BY MOUTH DAILY Reorder 05/13/2022 10/01/2022 documented as of this encounter Care Teams Denture Model Maker Relationship Specialty Start Date End Date Layne Cai MD 26 [place] [address] PCP - General 04/05/20 12/16/23 Vianey Bocanegra APRN 26 [facility] [address] [place] [address] PCP - General 12/17/23 Claire Lopez NP [address] [place] [address] Cardiovascular Disease 11/22/20 Tod Perez NP 111 [facility], [address] [address] Rheumatology 12/28/20 documented as of this encounter
--- OUTSIDE RECORDS SUMMARY | 2024-01-09 01:48 | XMS_ITS | Encounter Summary ---
Author Organization [facility] Address [address] [place] [address] Care Team Providers Care Sed Special Education Teacher Name Role Phone Layne Cai MD Primary Care Provider [phone] Claire Lopez BUSINESS REPRESENTATIVE Unavailable [phone] Tod Perez BUSINESS REPRESENTATIVE Unavailable [phone] Encounter Details Date Type Department Care Team (Late st Contact Info) Description 06/29/2022 Orders Only [facility] Rheumatology & Immunology - [facility] [address] [place], [place] [phone] Russ Warner Chi, MD 111 [facility], Level 5 [place] [address] Inflammatory arthritis (Primary Dx) Social History Tobacco Use Types [...] End Da te sulfaSALAzine (AZULFIDINE) 500 mg tabletIndications:Inflamm atory arthritis 1 tab twice daily 180 Tablet 3 06/29/2022 05/19/2023 documented in this encounter Plan of Treatment Upcoming Encounters Date Type Department Care Team (Late st Contact Info) Description 04/09/2024 16:30 EDT Office Visit [facility] Hematology & Oncology - [address] [address]85[address] Erin Barillas MD [address] [place] [address] 2 [place] [phone] 05/18/2024 10:00 EST Office Visit [facility] Rheumatology & Immunology [address] 068451 Tod Perez NP [address] [place] [address], [facility] 5 [place] [phone] 06/03/2024 9:00 EST Ancillary Procedure [facility]iology Clinic [address] [place] [phone] 06/03/2024 9:00 EST Office Visit [facility] Clinic [address] [place] [address] [phone] Claire Lopez NP [address] [place] [address] [facility] [address] [place] [phone] documented as of this encounter Visit Diagnoses Diagnosis Inflammatory arthritis- Primary Unspecified inflammatory polyarthropathy documented in this encounter Discontinued Medications Medication Sig Discontinue Reason Start Date End Da te sulfaSALAzine (AZULFIDINE) 500 mg tablet 1 tab twice daily Reorder 05/30/2022 06/29/2022 documented as of this encounter Care Teams Sed Special Education Teacher Relationship Specialty Start Date End Date Layne Cai MD 26 [place] [address] PCP - General 04/05/20 12/16/23 Claire Lopez NP [address] [place] [address] 2-1 [place] [address] Cardiovascular Disease 11/22/20 Tod Perez NP 111 [facility], Level 5 [place] [address] Rheumatology 12/28/20 documented as of this encounter
--- OUTSIDE RECORDS SUMMARY | 2024-01-09 01:48 | XMS_ITS | Encounter Summary ---
Author Organization [facility] Address [address] [place] [address] Care Team Providers Care Manager Site Name Role Phone Layne Cai MD Primary Care Provider [phone] Claire Lopez GEOSCIENCE TECHNICIAN Unavailable Tod Perez GEOSCIENCE TECHNICIAN Unavailable [phone] Vianey Bocanegra APRN Primary Care Provider [phone] Reason for Visit * Reason Onset Date Comments Medications Refill 11/11/2021 Encounter Details Date Type Department Care Team (Late st Contact Info) Description 11/11/2021 Refill [facility] Hematology & Oncology - [address] [phone] Renate José GEOSCIENCE TECHNICIAN 111 [facility] Level 2 [place] [phone] Medications Refill Social History Tobacco Use Types [...] CAPSULE BY MOUTH DAILY 90 capsule 1 11/13/2021 11/15/2021 documented in this encounter Miscellaneous Notes * Telephone Encounter - Almita Peters RN - 11/13/2021 9732 EDTFrom: Praneeth Villanueva To: Office of Renate José APRN Sent: 11/11/2021 21:28 EDT Subject: Medication Renewal Request Refills have been requested for the following medications: hydroxyurea (HYDREA) 500 mg capsule [Erin Barillas MD] Preferred pharmacy: [id number] documented in this encounter Plan of Treatment Upcoming Encounters Date Type Department Care Team (Late st Contact Info) Description 04/09/2024 16:30 EDT [facility] Hemat[facility] & Oncology - [address] [phone] Erin Barillas MD [address] [place] [address] 2 [place] [phone] 05/18/2024 10:00 EST Office Visit [facility] Rheumatology & Immunology - [address] 926761 Tod Perez NP [address] [phone] 06/03/2024 9:00 EST Ancillary Procedure [facility] Cardiology Clinic [address] [place] [phone] 06/03/2024 9:00 EST Office Visit [facility]iology Clinic [address] [place] [address] Claire Lopez NP [address] [place] [phone] documented as of this encounter Visit Diagnoses Not on filedocumented in this encounter Discontinued Medications Medication Sig Discontinue Reason Start Date End Da te hydroxyurea (HYDREA) 500 mg capsule TAKE 1 CAPSULE BY MOUTH DAILY Reorder 11/08/2021 11/11/2021 documented as of this encounter Care Teams Manager Site Relationship Specialty Start Date End Date Layne Cai MD 26 [place] [address] PCP - General 04/05/20 12/16/23 Vianey Bocanegra APRN 26 [facility] 185 [place] [address] PCP - General 12/17/23 Claire Lopez NP [address] [place] [phone] Cardiovascular Disease 11/22/20 Tod Perez NP [address] [phone] Rheumatology 12/28/20 documented as of this encounter
--- OUTSIDE RECORDS SUMMARY | 2024-01-09 01:49 | XMS_ITS | Encounter Summary ---
Author Organization [facility] Address [address] [place] [address] Care Team Providers Care Ship'S Officer Name Role Phone Layne Cai MD Primary Care Provider Claire Lopez TRAIL MAINTENANCE WORKER Unavailable [phone] Tod Perez TRAIL MAINTENANCE WORKER Unavailable [phone] Reason for Visit * Reason Onset Date Comments Coordination Of Care 04/18/2021 Encounter Details Date Type Department Care Team (Late st Contact Info) Description 04/18/2021 Telephone [facility] Hematology & Oncology - [facility] [place] [address] [place] [address] Chikis Bearden, RN Coordination Of Care Social History Tobacco Use [...] as visiting a doctor's office or shopping? Yes 12/28/2020 Cognitive Status Response Date of Assessm ent Because of a physical, menta l, or emotional condition, does this person have serious difficulty concentrating, remembering, or making decisions? No 11/24/2017 documented as of this encounter Miscellaneous Notes * Telephone Encounter - Chikis Bearden RN - 04/18/2021 1328 EDT Called [facility] and requested 03/23 labs be sent to us as patient has a follow up this week. documented in this encounter Plan of Treatment Upcoming Encounters Date Type Department Care Team (Late st Contact Info) Description 04/09/2024 16:30 EDT Office Visit [facility] Hematology & Oncology - [address] 182461 Erin Barillas MD [address] [place] [address] 2 [place] [phone] 05/18/2024 10:00 EST Office Visit [facility] Rheumatology & Immunology - [address] 570391 Tod Perez NP [address] [place] [address], [facility] 5 [place] [phone] 06/03/2024 9:00 EST Ancillary Procedure [facility] Cardiology Clinic [address] [place] [address] 06/03/2024 9:00 EST Office Visit [facility] Cardiology Clinic [address] [place] [phone] Claire Lopez NP [address] [place] [address] [address] [address] [place] [phone] documented as of this encounter Visit Diagnoses Not on filedocumented in this encounter Care Teams Ship'S Officer Relationship Specialty Start Date End Date Layne Cai MD 26 [place] [phone] PCP - General 04/05/20 12/16/23 Claire Lopez NP [address] [place] [address] 2-1 [place] [address] Cardiovascular Disease 11/22/20 Tod Perez TRAIL MAINTENANCE WORKER [address] [place] [address], Level 5 [place] [phone] Rheumatology 12/28/20 documented as of this encounter
--- OUTSIDE RECORDS SUMMARY | 2024-01-09 01:49 | XMS_ITS | Encounter Summary ---
Author Organization [facility] Address [address] [place] [address] Care Team Providers Care Drinking Water Technician Name Role Phone Layne Cai MD Primary Care Provider [phone] Claire Lopez CAMPUS RECEPTIONIST Unavailable [phone] Tod Perez CAMPUS RECEPTIONIST Unavailable [phone] Encounter Details Date Type Department Care Team (Late st Contact Info) Description 06/14/2021 Orders Only [facility] Hematology & Oncology - [facility] [address] [place], [place] [phone] Norah Verduzco RN Polycythemia vera (HCC) ([facility]) (Primary Dx) Social History Tobacco Use [...] Yes 12/28/2020 Cognitive Status Response Date of Assess ent Because of a physical, menta l, or emotional condition, does this person have serious difficulty concentrating, remembering, or making decisions? No 11/24/2017 documented as of this encounter Progress Notes * Norah Verduzco RN - 06/14/2021 0914 EST Therapeutic phlebotomy order entered per Alden Quintana NP for 06/19/21 documented in this encounter Plan of Treatment Upcoming Encounters Date Type Department Care Team (Late st Contact Info) Description 04/09/2024 16:30 EDT Office Visit [facility] Hematology & Oncology [address] [phone] Erin Barillas MD [address] [place] [address] 2 [place] [phone] 05/18/2024 10:00 EST Office Visit [facility] Rheumatology & Immunology [address] 920011 Tod Perez NP [address] [place] [address], [facility] 5 [place] [phone] 06/03/2024 9:00 EST Ancillary Procedure [facility] Cardiology Clinic [address] [place] [phone] 06/03/2024 9:00 EST Office Visit [facility] Cardiology Clinic [address] [place] [address] Claire Lopez NP 130 [facility] [address] [place] [phone] documented as of this encounter Visit Diagnoses Diagnosis Polycythemia vera ([facility])- Primary documented in this encounter Orders IV Count Last Ordered Date First Orde red Date THERAPEUTIC PHLEBOTOMY 1 06/14/2021 documented in this encounter Care Teams Drinking Water Technician Relationship Specialty Start Date End Date Layne aCi MD [address] [place] [address] PCP - General 04/05/20 12/16/23 Claire Lopez NP [address] [place] [address] 2-1 [place] [address] Cardiovascular Disease 11/22/20 Tod Perez NP [address] [place] [address], Level 5 [place] [address] Rheumatology 12/28/20 documented as of this encounter
--- OUTSIDE RECORDS SUMMARY | 2024-01-09 01:49 | XMS_ITS | Encounter Summary ---
Author Organization [facility] Address [address] [place] [address] Care Team Providers Care News Gathering Technician Name Role Phone Layne Cai MD Primary Care Provider [phone] Claire Lopez GREEN HOUSE MANAGER Unavailable [phone] Tod Perez GREEN HOUSE MANAGER Unavailable [phone] Reason for Visit * Reason Comments Medication Management discuss [place] Dizziness Encounter Details Date Type Department Care Team (Late st Contact Info) Description 04/03/2021 11:00 EDT Office Visit [facility] Rheumatology & Immunology - [facility] [address] [place], [place] [phone] Tod Perez, GREEN HOUSE MANAGER 111 [facility], Level 5 [place] [address] History of seronegative inflammatory arthritis (Primary Dx); Encounter for long-term (current) [...] encounter Patient Instructions * Patient Instructions* Tod Perez, BATSHEVA - 04/03/2021 11:00 EDT 1. Stop methotrexate and folic acid 2. Start antibiotics from pulmonary for rash to face/head 3. Once antibiotics complete Start sulfasalazine 500mg (1 tab) orally daily x 7- 14 days if tolerated increase to 1 tab [...] up to 6 pills (3g) a day in some situations. An Enteric-coated (or stomach-coated) preparation is available that may lessensome of the side effects associated with sulfasalazine, particularly stomach upset. This form of sulfasalazine should not be crushed or chewed. Adequate fluid intake is required to prevent kidney stones. It usually takes between 2 to 3 months to notice any improvement in RA symptoms after starting sulfasalazine. TIME TO EFFECT It usually takes between 1 and 3 months to notice any improvement in rheumatoid arthritis symptoms after starting sulfasalazine. SIDE EFFECTS In general, most patients can take sulfasalazine with few side effects. 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 Most rashes are not serious, but [...] (yellowing of baby's skin and eyes) and brain problems in infants younger than two years old. Tell your doctor if you have ever had any unusual or allergic reaction to any other sulfa medicines as well as medicines that are chemically relatedto sulfa drugs. In men, sulfasalazine may lower sperm count, although this should improve after stopping the medication. ?? 2019 [employer] [place] documented in this encounter Progress Notes * Tod Perez APRN - 04/03/2021 1100 EDT [...] HD flu completed 2020 Alecia Saavedra at [facility] is concerned for MTX ILD/fibrosis. Reviewed that [...] start oral doxy, Will go back to [place] Jun 2021 Denies any other joint pains [...] chest pain ??? 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 Appropriate range of motionpresent. Ankle/Foot: In compression stockings, hard to palpate 2-5 MTP but I think this is due to edema someOA, with cock ups, no significant tenderness, swelling, effusions, erythema or warmth is present. Appropriate range ofmotion present. LABS: ??Results for DEON VILLANUEVA ( [...] Status: Final result ?Visible to patient: Yes ([employer]) Next appt: 05/25/2018 at 11:40 in Rheumatology (Sudhir Rosales MD) Order: [id number] ? 1yr ago ?? Pathology Report: SURGICAL PATHOLOGY REPORT Reports generated via electronic interface contain original data; however they are lacking the format of the original report. Caution should be taken when reading/interpreting unformatted reports. Name: ? DEON VILLANUEVA ? Accession #: ? [id number] ? : ? 1945 (Age: 71) ??M [...] in B1. Minat Moscoso 10/25/2016 7:55 AM ?? Results: SURGICAL PATHOLOGY Status: Final result (Collected: 10/23/2016 18:29) ?? SURGICAL PATHOLOGY Status: Final result ?Visible to patient: Yes ([employer]) Next appt: 05/25/2018 at 11:40 in Rheumatology (Sudhir Rosales MD) Order: [id number] ? 1yr ago ?? Pathology Report: SURGICAL PATHOLOGY REPORT Reports generated via electronic interface contain original data; however they are lacking the format of the original report. Caution should be taken when reading/interpreting unformatted reports. Name: ? DEON VILLANUEVA ? Accession #: ? [id number] ? : ? 1945 (Age: 71) ??M ?Collect Date: ? 10/23/2016 ? Location: ? [facility] ? Receive Date: ? 10/24/2016 ? Provider: SHREYA LEA MD Copy to: MINDY SZYMANSKI RACK LOADER ? Final Pathologic Diagnosis: A. ??GASTROESOPHAGEAL JUNCITON, [...] 7:55 AM ?XR CHEST 2 VIEWS (Order [id number]) Status: Final result (Exam End: 05/19/2020 16:15) Results XR CHEST 2 VIEWS ( (Order [id number]) XR CHEST 2 VIEWS Order: [id number] Status: Final result ?Visible to patient: Yes (MyChart) Next appt: None Details Reading Physician Reading Date Result Priority Dustin Ibrahim MD [phone] 05/19/2020 Narrative & Impression EXAM: RADIOLOGY/CHEST PA [...] Ibrahim MD XR CHEST 2 VIEWS (Order [id number]) Status: Final result (Exam End: 11/09/2020 16:33) Results XR CHEST 2 VIEWS ( (Order [id number]) XR CHEST 2 VIEWS Order: [id number] Status: Final result ?Visible to patient: Yes (seen) Next appt: 01/22/2021 at 10:45 in Cardiology (Claire Lopez, BATSHEVA) 0 Result Notes Details Reading Physician Reading Date Result Priority Gerald Garcia MD [phone] 11/09/2020 Narrative & Impression EXAM: RADIOLOGY/CHEST PA [...] pen was too expencive. Alecia Saavedra at [facility] is concerned for MTX ILD/fibrosis. Reviewed that [...] not able to do his spring walking, typicallycan do up to 10 miles, usually goes to [place] and walks daily in the winter, was not able to do that 2/2 covid panemic this year. 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 He was not [...] Discussed this could be deconditioning, and he does have a hx of smoking, occasionally MTX can contribute to ILD, or ILD can be ideopathic. No signs of infection or acte interstitial lung disease on chest xray. Referred to Pulmonary at [facility] per their request. They states driving to [place] gets very tiring. Chest xray did show Hyperinflation, interstitial prominence, and trace basilar airspace disease. Discussed this could be smoking and/or ILD related. Pt updated by [facility]. 04/03/2021 Alecia Saavedra at [facility] is concerned for MTX ILD/fibrosis. Reviewed that [...] orally daily x 7- 14 days if tolerated increase to 1 tab [...] only block results from tests performed at [facility] and does not apply for Miscellaneous Test [...] only block results from tests performed at [facility] and does not apply for Miscellaneous Test [...] Info) Description 04/09/2024 16:30 EDT Office Visit [facility] [place] Hematology & Oncology - [address] [phone] Erin Barillas MD 111 [facility] 2 [place] [phone] 05/18/2024 10:00 EST Office Visit [facility] Rheumatology & Immunology - [address] [phone] Tod Perez NP 111 [facility], [facility] 5 [place] [phone] 06/03/2024 9:00 EST Ancillary Procedure [facility] Cardiology Clinic [address] [place], [place] [address] 06/03/2024 9:00 EST Office Visit [facility] Cardiology Clinic [address] [place] [address] Claire Lopez NP 130 [facility] 21 [place] [phone] documented as of this encounter Visit Diagnoses Diagnosis History of seronegative inflammatory arthritis- Primary Encounter for long-term (current) use of medications Encounter for long-term (current) use of other medications documented in this encounter Discontinued Medications Medication Sig Discontinue Reason Start Date End Da te methotrexate 2.5 mg tabletIndications:Inflamm ation around joint,Encounter for long-term (current) use of medications Take 10 Tabs by mouth once a week. 11/16/2020 04/03/2021 folic acid (FOLVITE) 1 mg tabletIndications:Inflamm ation around joint,Encounter for long-term (current) use of medications Take 1 Tab by mouth daily. 09/20/2020 04/03/2021 documented as of this encounter Care Teams News Gathering Technician Relationship Specialty Start Date End Date Layne Cai MD 26 [place] [phone] PCP - General 04/05/20 12/16/23 Claire Lopez NP 130 [facility] [address] [address] Cardiovascular Disease 11/22/20 Tod Perez NP 111 [facility], [facility] 5 [place] [phone] Rheumatology 12/28/20 documented as of this encounter
--- OUTSIDE RECORDS SUMMARY | 2024-01-09 01:49 | XMS_ITS | Encounter Summary ---
Author Organization [facility] Address [address] [place] [address] Care Team Providers Care House Worker General Name Role Phone Layne Cai MD Primary Care Provider [phone] Claire Lopez DESIGN PRINTING MACHINE SETTER Unavailable [phone] Tod Perez DESIGN PRINTING MACHINE SETTER Unavailable Reason for Visit * Reason Onset Date Comments Appointment Related 06/19/2021 Encounter Details Date Type Department Care Team (Late st Contact Info) Description 06/19/2021 Telephone [facility] Ambulatory Infusion Center [address] [place], [place] [phone] Reshma Hilario, DESIGN PRINTING MACHINE SETTER 111 [facility] 2 [place] [address] Appointment Related Social History Tobacco [...] encounter Miscellaneous Notes * Telephone Encounter - Robina Mendiola - 06/19/2021 [...] since your last infusion? If so, is your ordering provider aware? No 4. Have you had a recent COVID vaccination or have one scheduled? If so, does your ordering provider aware? No 5. (for Remicade, Entyvio, Renflexis, Rituximab, Ocrevus, pts, 'mab' patients) Have you had any recent surgeries in the last month or have any planned in the near future? No documented in this encounter Plan of Treatment Upcoming Encounters Date Type Department Care Team (Late st Contact Info) Description 04/09/2024 16:30 EDT Office Visit [facility] Hematology & Oncology - [address] 156151 Erin Barillas MD 111 [facility] 2 [place] [phone] 05/18/2024 10:00 EST Office Visit [facility] Rheumatology & Immunology - [address] [phone] Tod Perez NP [address] [phone] 06/03/2024 9:[address] [facility] Cardiology Clinic [address] [place] [phone] 06/03/2024 9:[address] [facility] Cardiology Clinic [address] [place] [address] Claire Lopez NP [address] [place] [phone] documented as of this encounter Visit Diagnoses Not on filedocumented in this encounter Care Teams House Worker General Relationship Specialty Start Date End Date Layne Cai MD [address] [place] [phone] PCP - General 04/05/20 12/16/23 Claire Lopez NP [address] [place] [phone] Cardiovascular Disease 11/22/20 Tod Perez NP 111 [facility] 5 [place] [address] Rheumatology 12/28/20 documented as of this encounter
--- OUTSIDE RECORDS SUMMARY | 2024-01-09 01:49 | XMS_ITS | Encounter Summary ---
Author Organization [facility] Address [address] [place] [address] Care Team Providers Care County Judge Name Role Phone Layne Cai MD Primary Care Provider [phone] Claire Lopez HIGH SCHOOL ART TEACHER Unavailable [phone] Tod Perez HIGH SCHOOL ART TEACHER Unavailable [phone] Reason for Referral * Prior Authorization (See Order Priority) - Closed Specialty Diagnoses / Procedures Referred By Marissa carney Referred To Contact Infusion Therapy Diagnoses Polycythemia vera ([facility]) Reshma Hilario, HIGH SCHOOL ART TEACHER 111 [facility] 2 [place] [address] [facility] Adult Infusion [facility] Shep [address] [place] [address] Referral ID Status Reason Start Date Expiration Date V isits Requested Visits Authorized [id number] Closed Specialty Services Required 06/14/2021 1 1 Question Answer Is this appt for transfusion, medication, test or injection? Procedure Type of procedure? Therapeutic phlebotomy Have orders been place for this appt? (i.e.: Blood Transfusion Order Set, Therapy Plan, Lab Orders, Supportive Plan, Etc) Yes Comments Patient needs appt on 06/19/21 (will be onsite for a 12pm appt and can do earlier or after that appointment please) Reason for Visit * Prior Authorization (See Order Priority) - Closed Specialty Diagnoses / Procedures Referred By Marissa t Referred To Contact Infusion Therapy Diagnoses Polycythemia vera ([facility]) Reshma Hilario, HIGH SCHOOL ART TEACHER 111 [facility] 2 [place] [address] [facility]fusion [facility] [address] [place] [address] Referral ID Status Reason Start Date Expiration Date V isits Requested Visits Authorized [id number] Closed Specialty Services Required 06/14/2021 1 1 Encounter Details Date Type Department Care Team (Latest Contact Info) Description 06/19/2021 8:36 EST - 06/19/2021 23:59 EST Hospital Encounter [facility] [address] [place] [address] Polycythemia vera (HCC) ([facility]) Discharge Disposition: Home or Self Care Social History Tobacco Use Types Packs/Day [...] No 11/24/2017 documented as of this encounter Medications at Time of Discharge Medication Sig Dispensed Refills Start Date End Date aspirin 81 mg EC tablet Take 1 Tablet by mouth daily. metoprolol XL (TOPROL-XL) 25 mg tablet Take 1 Tablet by mouth daily. 10/20/2019 omeprazole (PRILOSEC) 40 mg capsule Take 1 Capsule by mouth daily. 04/28/2019 simvastatin (ZOCOR) 40 mg tablet Take 1 Tablet by mouth every evening. doxycycline (VIBRA-TABS) 100 mg tablet Take 100 mg by mouth 2 times daily. 11/15/2021 finasteride (PROSCAR) 5 mg tablet Take 5 mg by mouth daily. 10/24/2022 hydroxyurea (HYDREA) 500 mg capsule Take one tablet by mouth daily. 90 capsule 1 05/14/2021 11/08/2021 sulfaSALAzine (AZULFIDINE) 500 mg tablet 1 tab twice daily 180 Tablet 3 06/19/2021 05/30/2022 documented as of this encounter Discharge Disposition Disposition Code Departure Means Destination Home or Self Retirement documented in this encounter Progress Notes * Mata Singer, TRAM - 06/19/2021 1300 EST CBC drawn via butterfly * Mata Singer, TRAM - 06/19/2021 1300 EST Praneeth Villanueva arrive to [address] [facility]lebot[facility] secondary to D45 [...] Post Therapeutic phlebotomy instructions reviewed with patient. documented in this encounter Plan of Treatment Upcoming Encounters Date Type Department Care Team (Late st Contact Info) Description 04/09/2024 16:30 EDT Office Visit [facility] Hematology & Oncology - [address] [phone] Erin Barillas MD [address] [place] [address] 2 [place] [phone] 05/18/2024 10:00 EST Office Visit [facility] Rheumatology & Immunology [address] [phone] Tod Perez NP [address] [place] [address], [facility] 5 [place] [phone] 06/03/2024 9:00 EST Ancillary Procedure [facility] Cardiology Clinic [address] [place] [phone] 06/03/2024 9:00 EST Office Visit [facility] Cardiology Clinic [address] [place] [address] [phone] Claire Lopez NP [address] [place] [address] [address] [place] [phone] Scheduled Referrals Name Type Priority Associated Diagnoses Orde r Schedule AMB CONS/FOLLOW UP (SHEP 4 INFUSIONS) Outpatient Referral STAT Polycythemia vera (HCC) (HCC-CMS) 1 Occurrences starting 06/19/2021 until 06/19/2021 documented as of this encounter Procedures Procedure Name Priority Date/Time Associated Diagnosis Comments COMPLETE BLOOD COUNT AND DIFFERENTIAL STAT 06/19/2021 13:03 EST documented in this encounter Results * (ABNORMAL) COMPLETE BLOOD COUNT AND DIFFERENTIAL (06/19/2021 13:03 [facility]) WBC 8.09 4.00 - 10.40 K/cmm 06/19/2021 13:26 [facility] RBC 5.06 4.36 - 5.78 M/cmm 06/19/2021 13:26 [facility] Hemoglobin 13.7(L) 13.8 - 17.3 gm/dL 06/19/2021 13:26 [facility] HCT 45.3 39.5 - 50.2 % 06/19/2021 13:26 [facility] MCV 90 81 - 95 fl 06/19/2021 13:26 [facility] MCH 27.1(L) 27.6 - 33.0 pg 06/19/2021 13:26 [facility] MCHC 30.2(L) 32.8 - 36.4 gm/dL 06/19/2021 13:26 [facility] RDW-CV 16.5(H) <14.2 % 06/19/2021 13:26 [facility] RDW-SD 53.1(H) <46.0 fl 06/19/2021 13:26 [facility] PLT 286 141 - 377 K/cmm 06/19/2021 13:26 [facility] MPV 12.1 9.5 - 12.7 fl 06/19/2021 13:26 [facility] % Neutrophils 73.4 % 06/19/2021 13:26 [facility] % Lymphocytes 17.6 % 06/19/2021 13:26 [facility] % Monocytes 8.0 % 06/19/2021 13:26 [facility] % Eosinophils 0.0 % 06/19/2021 13:26 [facility] % Basophils 0.5 % 06/19/2021 13:26 [facility] % Immature Grans 0.5 % 06/19/19 13:26 [facility] Absolute Neutrophils 5.94 2.20 - 8.85 K/cmm 06/19/2021 13:26 [facility] Absolute Lymphocytes 1.42 1.09 - 3.30 K/cmm 06/19/2021 13:26 [facility] Absolute Monocytes 0.65 0.10 - 0.80 K/cmm 06/19/2021 13:26 [facility] Absolute Eosinophils 0.00(L) 0.03 - 0.61 K/cmm 06/19/2021 13:26 [facility] ABS Basophils 0.04 0.01 - 0.11 K/cmm 06/19/2021 13:26 [facility] Absolute Immature Grans 0.04 0.00 - 0.06 K/cmm 06/19/2021 13:26 [facility] Type of Differential: Auto 06/19/2021 13:26 [facility] Blood VENOUS BLOOD / Unknown Venipuncture / Unknown 06/19/2021 13:03 EST 06/19/2021 13:17 EST Erin Barillas MD PACKAGES & DNA PROBE ORDERABLES Performing Organization Address City/State/[facility] Co de Phone Number [facility] [address] [place] [address] documented in this encounter Visit Diagnoses Diagnosis Polycythemia vera (HCC-CMS) documented in this encounter Care Teams County Judge Relationship Specialty Start Date End Date Layne Cai MD [address] [place] [phone] PCP - General 04/05/20 12/16/23 Claire Lopez NP 130 [facility] [address] [place] [address] Cardiovascular Disease 11/22/20 Tod Perez NP 111 [facility], Level 5 [place] [address] Rheumatology 12/28/20 documented as of this encounter
--- OUTSIDE RECORDS SUMMARY | 2024-01-09 01:49 | XMS_ITS | Encounter Summary ---
Author Organization [facility] Address [address] [place] [address] Care Team Providers Care Gift Manager Name Role Phone Layne Cai MD Primary Care Provider [phone] Claire Lopez APPLIANCE PAINTER AND REFINISHER Unavailable [phone] Tod Perez APPLIANCE PAINTER AND REFINISHER Unavailable [phone] Reason for Visit * Reason Onset Date Comments Appointment Related 05/04/2021 Encounter Details Date Type Department Care Team (Late st Contact Info) Description 05/04/2021 Telephone [facility] Ambulatory Infusion Center [address] [place], [place] [phone] Erin Barillas MD 111 [facility] 2 [place] [address] Appointment Related Social History Tobacco [...] * Telephone Encounter - Robina Mendiola - 05/04/2021 [...] If so, does your ordering provider aware? Booster, 3 wks ago 5. (for Remicade, Entyvio, Renflexis, Rituximab, Ocrevus, pts, 'mab' patients) Have you had any recent surgeries in the last month or have any planned in the near future? No documented in this encounter Plan of Treatment Upcoming Encounters Date Type Department Care Team (Late st Contact Info) Description 04/09/2024 16:30 EDT Office Visit [facility] Hematology & Oncology [address] [phone] Erin Barillas MD [address] [place] [address], Level [address] [place] [phone] 05/18/2024 10:00 EST Office Visit [facility] Rheumatology & Immunology [address] [phone] Tod Perez NP 111 [facility] 5 [place] [address] 06/03/2024 9:00 EST Ancillary Procedure [facility] Cardiology Clinic [address] [place] [phone] 06/03/2024 9:00 EST Office Visit [facility] Cardiology Clinic [address] [place] [phone] Claire Lopez NP [address] [place] [phone] documented as of this encounter Visit Diagnoses Not on filedocumented in this encounter Care Teams Gift Manager Relationship Specialty Start Date End Date Layne Cai MD [address] [place] [phone] PCP - General 04/05/20 12/16/23 Claire Lopez NP [address] [place] [phone] Cardiovascular Disease 11/22/20 Tod Perez NP 111 [facility] 5 [place] [address] Rheumatology 12/28/20 documented as of this encounter
--- OUTSIDE RECORDS SUMMARY | 2024-01-09 01:49 | XMS_ITS | Encounter Summary ---
Author Organization [facility] Address [address] [place] [address] Care Team Providers Care Fieldwork Coordinator Name Role Phone Layne Cai MD Primary Care Provider [phone] Claire Lopez ACCOUNTING TECHNICIAN Unavailable [phone] Tod Perez ACCOUNTING TECHNICIAN Unavailable [phone] Reason for Referral * Prior Authorization (See Order Priority) - Closed Specialty Diagnoses / Procedures Referred By Marissa carney Referred To Contact Infusion Therapy Diagnoses Polycythemia vera ([facility]) Erin Barillas MD 111 [facility] 2 [place] [address] [facility] Adult Infusion Center Shep [address] [place] [address] Referral ID Status Reason Start Date Expiration Date V isits Requested Visits Authorized [id number] Closed Specialty Services Required 04/23/2021 06/15/2021 1 1 Question Answer Is this appt for transfusion, medication, test or injection? Procedure Type of procedure? Therapeutic phlebotomy Are labs to be obtained during the appt? No Does this have a lab dependency? This patient is not lab dependent Are preliminary tests complete (like MRI)? No Have orders been place for this appt? (i.e.: Blood Transfusion Order Set, Therapy Plan, Lab Orders, Supportive Plan, Etc) Yes Comments Therapeutic phleb order from 08/2020 Reason for Visit * Prior Authorization (See Order Priority) - Closed Specialty Diagnoses / Procedures Referred By Contac t Referred To Contact Infusion Therapy Diagnoses Polycythemia vera ([facility]) Erin Barillas MD 111 [facility] 2 [place] [address] [facility] Adult Infusion Center She[address] [place] [address] Referral ID Status Reason Start Date Expiration Date V isits Requested Visits Authorized [id number] Closed Specialty Services Required 04/23/2021 06/15/2021 1 1 Encounter Details Date Type Department Care Team (Latest Contact Info) Description 05/04/2021 12:51 EST - 05/04/2021 23:[address] [facility] Ambulatory Infusion Center [address] [place] [address] Polycythemia vera (HCC) ([facility]) Discharge Disposition: Home or Self Care Social [...] Take 1 Capsule by mouth daily. 04/28/2019 atorvastatin (LIPITOR) 40 mg tablet Take 1 Tab by mouth at bedtime. 90 Tab 3 11/09/2020 06/14/2021 finasteride (PROSCAR) 5 mg tablet Take 5 mg by mouth daily. 10/24/2022 hydroxyurea (HYDREA) 500 mg capsule TAKE ONE CAPSULE BY MOUTH EVERY DAY 90 capsule 02/12/2021 05/13/2021 isosorbide MONOnitrate (IMDUR) 30 mg CR tablet Take 1 Tablet by mouth daily. 90 Tablet 3 03/02/2021 06/14/2021 sulfaSALAzine (AZULFIDINE) 500 mg tablet Take 1 tab daily for 7-14 days then increase to 1 tab in am and 1 tab in pm- check labs after 30 days 60 Tablet 2 04/12/2021 06/10/2021 documented as of this encounter Discharge Disposition Disposition Code Departure Means Destination Home or Self Care documented in this encounter Plan of Treatment Upcoming Encounters Date Type Department Care Team (Late st Contact Info) Description 04/09/2024 16:30 EDT Office Visit [facility] Hematology & Oncology - [address] [address] Erin Barillas MD [address] [place] [address], [facility], Level 2 [place] [address] 05/18/2024 10:[address] [facility] Rheumatology & Immunology - [address] [phone] Tod Perez NP [address] [place] [phone] 06/03/2024 9:00 EST Ancillary Procedure [facility] Cardiology Clinic [address] [place] [address] 06/03/2024 9:00 EST Office Visit [facility] Cardiology Clinic [address] [place] [address] Claire Lopez NP [address] [place] [phone] Scheduled Referrals Name Type Priority Associated Diagnoses Order Schedule AMB CONS/FOLLOW UP SHEP 4 INFUSIONS Outpatient Referral Routine/Next Available Polycythemia vera (HCC) (HCC-CMS) 1 Occurrences starting 05/04/2021 until 05/04/2021 documented as of this encounter Visit Diagnoses Diagnosis Polycythemia vera (HCC-CMS) documented in this encounter Care Teams Fieldwork Coordinator Relationship Specialty Start Date End Date Layne Cai MD [address] [place] [phone] PCP - General 04/05/20 12/16/23 Claire Lopez NP [address] [place] [phone] Cardiovascular Disease 11/22/20 Tod Perez NP [address] [place] [address] Rheumatology 12/28/20 documented as of this encounter
--- OUTSIDE RECORDS SUMMARY | 2024-01-09 01:49 | XMS_ITS | Encounter Summary ---
Author Organization [facility] Address [address] [place] [address] Care Team Providers Care Director Wholesale Name Role Phone Layne Cai MD Primary Care Provider [phone] Claire Lopez HEEL SEAM RUBBER Unavailable [phone] Tod Perez HEEL SEAM RUBBER Unavailable [phone] Vianey Bocanegra APRN Primary Care Provider [phone] Encounter Details Date Type Department Care Team (Late st Contact Info) Description 01/30/2021 Lab Requisition [facility] Pathology & Laboratory Medicine - [facility] [address] [place], [place] [phone] Outr Resulting Lab, Provider Social History Tobacco Use Types Packs/Day Years [...] Description 04/09/2024 16:30 EDT Office Visit [facility] Hematology & Oncology [address] [phone] Erin Barillas MD [address] [place] [address] 2 [place] [phone] 05/18/2024 10:00 EST Office Visit [facility] Rheumatology & Immunology [address] [phone] Tod Perez NP [address] [place] [address], [facility] 5 [place] [phone] 06/03/2024 9:00 EST Ancillary Procedure [facility] Cardiology Clinic [address] [place] [phone] 06/03/2024 9:00 EST Office Visit [facility] Cardiology Clinic [address] [place] [phone] Claire Lopez NP [address] [place] [address] [address] [place] [phone] documented as of this encounter Procedures Procedure Name Priority Date/Time Associated Diagnosis Comments DOUBLE STRANDED DNA ANTIBODY, IGG Routine 01/30/2021 10:15 EDT ANTI NUCLEAR AB (AMOL), IFA Routine 01/30/2021 10:15 EDT documented in this encounter Results * ANTI DNA (DOUBLE STRANDED) (01/30/2021 10:15 EDT) Anti-DNA (Double Stranded) <12.3 <30.0 IU/mL 02/01/2021 11:12 EDT [facility] Comment: ? Negative: ??<30.0 IU/mL ? Borderline Positive: ??30.0 - 75.0 IU/mL ? Positive: ??>75.0 IU/mL Results were obtained with the [employer] Lite dsDNA SC SHANIA assay on the [employer]. Blood VENOUS BLOOD / Unknown 01/30/2021 10:15 EDT 01/30/2021 21:20 EDT Provider Outr Resulting Lab IMMUNOLOGY A ND SEROLOGY ORDERABLES [facility] [address] [place] [address] * (ABNORMAL) ANTI NUCLEAR AB (AMOL), IFA (01/30/2021 10:15 EDT) Pathologist [facility] AMOL Interpretation Positive(A) Negative 01/31/2021 15:03 EDT [facility] Comment: For titers greater than or equal to 1:160 (except the centromere and nucleolar patterns) it is recommended that specific follow-up autoantibody testing ??(such as for dsDNA and Extractable Nuclear Antigens) be performed on all diffuse and/or speckled patterns NOTE: For add-on testing dsDNA is stable for 7 days refrigerated while Extractable Nuclear Antigens are only stable for 48 hours refrigerated. AMOL Titer and Pattern 1 1:160 Homogeneous 01/31/2021 15:03 EDT [facility] Blood VENOUS BLOOD / Unknown 01/30/2021 10:15 EDT 01/30/2021 21:20 EDT Narrative [facility] - 01/31/2021 15:03 EDT Results were obtained with the [employer] NOVA Lite HEp-2 AMOL Kit by indirect immunofluorescence. Provider Outr Resulting Lab IMMUNOLOGY A ND SEROLOGY ORDERABLES [facility] [address] [place] [address] documented in this encounter Visit Diagnoses Not on filedocumented in this encounter Care Teams Director Wholesale Relationship Specialty Start Date End Date Layne Cai MD [address] [place] [address] PCP - General 04/05/20 12/16/23 Vianey Bocanegra APRN 26 [facility] [address] [place] [address] PCP - General 12/17/23 Claire Lopez NP [address] [place] [address] [phone] Cardiovascular Disease 11/22/20 Tod Perez, HEEL SEAM RUBBER 111 [facility], [facility] 5 [place] [address] Rheumatology 12/28/20 documented as of this encounter
--- OUTSIDE RECORDS SUMMARY | 2024-01-09 01:49 | XMS_ITS | Encounter Summary ---
Author Organization [facility] Address [address] [place] [address] Care Team Providers Care Electronic Parts Designer Name Role Phone Layne Cai MD Primary Care Provider [phone] Claire Lopez HOME THEATER INSTALLER Unavailable [phone] Tod Perez HOME THEATER INSTALLER Unavailable [phone] Reason for Visit * Reason Onset Date Comments Appointment Related 06/11/2021 Encounter Details Date Type Department Care Team (Late st Contact Info) Description 06/11/2021 Telephone [facility] Hematology & Oncology - [facility] [address] [place], [place] [phone] Reshma Hilario, HOME THEATER INSTALLER 111 [facility] Level 2 [place] [address] Appointment Related Social History Tobacco [...] encounter Miscellaneous Notes * Telephone Encounter - Joanie Bowling MA - 06/11/2021 0930 EST Called patient pre-charting, no answer. Left message, reminder of visit. Will call back as time allows. documented in this encounter Plan of Treatment Upcoming Encounters Date Type Department Care Team (Late st Contact Info) Description 04/09/2024 16:30 EDT Office Visit [facility] Hematology & Oncology - [address] [phone] Erin Barillas MD [address] [place] [address] 2 [place] [phone] 05/18/2024 10:00 EST Office Visit [facility] Rheumatology & Immunology - [address] 717071 Tod Perez NP [address] [place] [address] 5 [place] [phone] 06/03/2024 9:00 EST Ancillary Procedure [facility] [address] [place] [address] [phone] 06/03/2024 9:00 EST Office Visit [facility] [address] [place] [address] [phone] Claire Lopez NP 130 [facility] [address] [place] [address] documented as of this encounter Visit Diagnoses Not on filedocumented in this encounter Care Teams Electronic Parts Designer Relationship Specialty Start Date End Date Layne Cai MD 26 [place] [phone] PCP - General 04/05/20 12/16/23 Claier Lopez NP [address] [address] Cardiovascular Disease 11/22/20 Tod Perez NP [address] [place] [address], Level 5 [place] [phone] Rheumatology 12/28/20 documented as of this encounter
--- OUTSIDE RECORDS SUMMARY | 2024-01-09 01:49 | XMS_ITS | Encounter Summary ---
Author Organization [facility] Address [address] [place] [address] Care Team Providers Care Woodworking Machine Offbearer Name Role Phone Layne Cai MD Primary Care Provider [phone] Claire Lopez TORQUE TESTER Unavailable Tod Perez TORQUE TESTER Unavailable [phone] Vianey Bocanegra APRN Primary Care Provider [phone] Encounter Details Date Type Department Care Team (Late st Contact Info) Description 05/31/2021 Orders Only [facility] Rheumatology & Immunology - [address] [phone] Tod Perez, TORQUE TESTER [address] [place] [address], Level 5 [place] [address] Social History Tobacco Use Types [...] Description 04/09/2024 16:30 EDT Office Visit [facility] Hematology & Oncology - [address] [phone] Erin Barillas MD [address] [place] [address] 2 [place] [phone] 05/18/2024 10:00 EST Office Visit [facility] Rheumatology & Immunology - [address] [phone] Tod Perez NP [address] [place] [address] 5 [place] [phone] 06/03/2024 9:00 EST Ancillary Procedure [facility] [address] [place] [address] [phone] 06/03/2024 9:00 EST Office Visit [facility] [address] [place] [address] Claire Lopez NP 130 [facility] [address] [address] documented as of this encounter Visit Diagnoses Not on filedocumented in this encounter Care Teams Woodworking Machine Offbearer Relationship Specialty Start Date End Date Layne Cai MD [address] [place] [phone] PCP - General 04/05/20 12/16/23 Vianey Bocanegra APRN 26 [facility] 185 [place] [address] PCP - General 12/17/23 Claire Lopez NP [address] [place] [address] Cardiovascular Disease 11/22/20 Tod Perez NP [address] [place] [address], [facility] 5 [place] [phone] Rheumatology 12/28/20 documented as of this encounter
--- OUTSIDE RECORDS SUMMARY | 2024-01-09 01:49 | XMS_ITS | Encounter Summary ---
Author Organization [facility] Address [address] [place] [address] Care Team Providers Care Lifestyle Block Farmer Name Role Phone Layne Cai MD Primary Care Provider Claire Lopez NP Unavailable [phone] Tod Perez AMMUNITION ASSEMBLY I LABORER Unavailable [phone] Reason for Visit * Reason Comments Follow-up 3 month Joint Pain Nothing to mention - Inability to stay on feet. Feel and Fractured his pelvis (Right Sided) Fell about a month ago Encounter Details Date Type Department Care Team (Late st Contact Info) Description 06/19/2021 12:00 EST Office Visit [facility] Rheumatology & Immunology - [address] [phone] Tod Perez NP 111 [facility], Level 5 [place] [address] History of seronegative inflammatory arthritis (Primary Dx); Encounter for long-term (current) use of medications; Fall, initial encounter; Screening for osteoporosis Social History Tobacco Use Types Packs/Day Years [...] Patient Instructions * Patient Instructions* Tod Perez, HOME HEALTH CNA - 06/19/2021 12:00 EST 1. Continue on sulfasalazine 2 tabs orally daily 2. Please get labs monthly x 2, then if stable every 3-4 months 3. DXA for [facility] For when you get back to [place] to screen for osteoporosis 4. Recommend shingrix - sign up with pharmacist 5. Recommend compression stockings daily Vaccine Information Statement: Shingrix 6. F/u 4-5 months in person wear extra sun screen as the sulfasalazine can make you burn easier Recombinant Zoster (Shingles) Vaccine, RZV: What you need to know Many Vaccine Information Statements are available in [place]an and other languages. See www.immunize.org/vis Hojas de Informaci??n Sobre Vacunas est??n disponibles en Espa??ol y en muchos otros idiomas. Visite http://www.immunize.org/vis 1. Why get vaccinated? Shingles (also called herpes zoster, or just zoster) is a painful skin rash, often with blisters. Shingles is caused by the varicella zoster virus, the same virus that causes chickenpox. After you have chickenpox, the virus stays in your body and [...] older than in younger people, and the risk increases with age. It is also more common in people whose immune system is weakened because of a disease such as cancer, or by drugs such as steroids or chemotherapy. At least 1 million people a year in the [place] get shingles. 2. Shingles vaccine (recombinant) Recombinant shingles vaccine was approved by FDA in 2017 for the prevention of shingles. In clinical trials, it was more than 90% effective in [...] has a severe allergy to any component of this vaccine, may be advised not to be [...] Some people felt tired, had muscle pain, aheadache, shivering, fever, stomach pain, or nausea. About [...] by a fall. Tell your provider if you feel dizzy or have vision changes or ringing [...] usually start a few minutes to a few hours after the vaccination. What should I do? [...] it yourself through the VAERS website at www.WillCallers.[facility].gov, or by calling . [employer] does not give medical advice. 6. How can I learn more? Ask your health care provider. He or she can give you the vaccine package insert or suggest other sources of information. ??? Call your local or state health department. ??? Contact the Centers for Disease Control and Prevention (CDC): - Call (7-349-BAZ-INFO) or - Visit CDC???s website at www.cdc.gov/vaccines Vaccine Information Statement Recombinant Zoster Vaccine 07/28/2017 Department of Health and Human Services Centers for Disease Control and Prevention Office Use Only documented in this encounter Ordered Prescriptions Prescription Sig Dispensed Refills Start Date End Da te sulfaSALAzine (AZULFIDINE) 500 mg tablet 1 tab twice daily 180 Tablet 3 06/19/2021 05/30/2022 documented in this encounter Progress Notes * Tod Perez APRN - 06/19/2021 1200 EST Images from the original note were not included. Patient ID: Deon Villanueva is a 75 y.o. y.o. male Subjective: Chief Complaint: Follow-up (3 month) and Joint Pain (Nothing to mention - Inability to stay on feet. Feel and Fractured [...] follow-up visit. ?? 04/03/2021 Alecia Saavedra at [facility] is concerned for MTX ILD/fibrosis. Reviewed [...] chest pain ??? Coronary artery disease involving [place] coronary artery of [place] heart without angina pectoris ??? PV (polycythemia [...] Ht 181.6 cm (71.5) Wt (!) 101.6 kg(224 lb) BMI 30.81 kg/m?? General: No acute [...] Status: Final result ?Visible to patient: Yes (WinLocal) Next appt: 05/25/2018 at 11:40 in Rheumatology (Sudhir Rosales MD) Order: [id number] ? 1yr ago ?? Pathology Report: SURGICAL PATHOLOGY REPORT Reports generated via electronic interface contain original data; however they are lacking the format of the original report. Caution should be taken when reading/interpreting unformatted reports. Name: ? DEON VILLANUEVA ? Accession #: ? [id number] ? : ? 1945 (Age: 71) ??M ?Collect Date: ? 10/23/2016 ? Location: ? [facility] ? Receive Date: ? 10/24/2016 ? Provider: SHREYA LEA MD Copy to: MINDY SZYMANSKI [facility] ? Final Pathologic Diagnosis: A. ??GASTROESOPHAGEAL [...] 0.1 cm). Submitted intact in B1. Mihrab Blanka 10/25/2016 7:55 AM ?? Results: SURGICAL PATHOLOGY Status: Final result (Collected: 10/23/2016 18:29) ?? SURGICAL PATHOLOGY Status: Final result ?Visible to patient: Yes (Team[employer] Online) Next appt: 05/25/2018 at 11:40 in Rheumatology (Sudhir Rosales MD) Order: [id number] ? 1yr ago ?? Pathology Report: SURGICAL PATHOLOGY REPORT Reports generated via electronic interface contain original data; however they are lacking the format of the original report. Caution should be taken when reading/interpreting unformatted reports. Name: ? DEON VILLANUEVA ? Accession #: ? [id number] ? : ? 1945 (Age: 71) ??M ?Collect Date: ? 10/23/2016 ? Location: ? [facility] ? Receive Date: ? 10/24/2016 ? Provider: SHREYA LEA MD Copy to: MINDY SZYMANSKI [facility] ? Final Pathologic Diagnosis: A. ??GASTROESOPHAGEAL [...] 7:55 AM ?XR CHEST 2 VIEWS (Order [id number]) Status: Final result (Exam End: 05/19/2020 16:15) Results XR CHEST 2 VIEWS ( (Order [id number]) XR CHEST 2 VIEWS Order: [id number] Status: Final result ?Visible to patient: Yes (MyChart) Next appt: None Details Reading Physician Reading Date Result Priority Dustin Ibrahim MD [phone] 05/19/2020 Narrative & Impression EXAM: RADIOLOGY/CHEST PA [...] Ibrahim MD XR CHEST 2 VIEWS (Order [id number]) Status: Final result (Exam End: 11/09/2020 16:33) Results XR CHEST 2 VIEWS ( (Order [id number]) XR CHEST 2 VIEWS Order: [id number] Status: Final result ?Visible to patient: Yes (seen) Next appt: 01/22/2021 at 10:45 in Cardiology (Claire Joeaudry, HOME HEALTH CNA) 0 Result Notes Details Reading Physician Reading Date Result Priority Gerald Garcia MD [phone] 11/09/2020 Narrative & Impression EXAM: RADIOLOGY/CHEST PA [...] Pain Global Estimate: .5 Score: 2.5 Interpretation: Near Remission ASSESSMENT: 1.Inflammator arthritis doing well on SZZ 500mg BID started around 02/2021 as Alecia Saavedra at [facility] is concerned for MTX ILD/fibrosis. Doing well without SE and no joint swelling or pain. Continue current meds. 2. 03/27/21 ECHO EF 55-60%, aortic valve sclerotic with mild to moderate aortic regurgitation, mildmitral annual calcification, trace mitral regurgitation, trace triscupid regurgitation, IVC could not be assessed d/t poor imaging quality. All other structures normal. 3. 04/03/2021 Alecia Saavedra at [facility] is concerned for MTX ILD/fibrosis. Reviewed [...] stable every 3-4 months 3. DXA for [facility] when you get back to [place] to screen for osteoporosis 4. Recommend shingrix [...] 16:30 EDT Office Visit [facility] Hematology & Oncology - [address] [phone] Erin Barillas MD 111 [facility], [facility] 2 [place] [phone] 05/18/2024 10:00 EST Office Visit [facility] Rheumatology & Immunology - [address] [phone] Tod Perez NP 111 [facility], [facility] 5 [place] [address] 06/03/2024 9:00 EST Ancillary Procedure [facility]iology Clinic [address] [place] [address] 669262 06/03/2024 9:00 EST Office Visit [facility] [address] [place] [address] 866402 Claire Lopez NP [address] [place] [address]-A [facility] [address] [phone] documented as of this encounter Visit Diagnoses Diagnosis History of seronegative inflammatory arthritis- Primary Encounter for long-term (current) use of medications Encounter for long-term (current) use of other medications Fall, initial encounter Screening for osteoporosis Special screening for osteoporosis documented in this encounter Discontinued Medications Medication Sig Discontinue Reason Start Date End Da te sulfaSALAzine (AZULFIDINE) 500 mg tablet Take 1 tab daily for 7-14 days then increase to 1 tab in am and 1 tab in pm- check labs after 30 days Reorder 06/11/2021 06/19/2021 documented as of this encounter Care Teams Lifestyle Block Farmer Relationship Specialty Start Date End Date Layne Cai MD [address] [place] [phone] PCP - General 04/05/20 12/16/23 Claire Lopez NP [address] [place] [address] 2-1 [place] [address] Cardiovascular Disease 11/22/20 Tod Perez NP [address] [place] [address], [facility] 5 [place] [address] Rheumatology 12/28/20 documented as of this encounter
--- OUTSIDE RECORDS SUMMARY | 2024-01-09 01:49 | XMS_ITS | Encounter Summary ---
Author Organization [facility] Address [address] [place] [address] Care Team Providers Care Crime Data Specialist Name Role Phone Layne aCi MD Primary Care Provider Claire Lopez SERVICE DESK DIRECTOR Unavailable [phone] [facility] Tod Perez SERVICE DESK DIRECTOR Unavailable [phone] Vianey Bocanegra APRN Primary Care Provider [phone] Reason for Visit * Reason Comments Other Encounter Details Date Type Department Care Team (Late st Contact Info) Description 02/11/2021 Refill [facility] Hematology & Oncology - [address] [address] Erin Barillas MD [address] [place] [address], Level 2 [place] [address] Other Social History Tobacco Use [...] te hydroxyurea (HYDREA) 500 mg capsule TAKE ONE CAPSULE BY MOUTH EVERY DAY 90 capsule 02/12/2021 05/13/2021 documented in this encounter Miscellaneous Notes * Telephone Encounter - Renate De Leon RN - 02/12/2021 1242 EDT Hydrea refill routed to [facility]. Per last note on 12/15/20 pt to continue on 500mg a day. Last filled 11/14. Pt has a return appointment with Dr Barillas on 03/29 documented in this encounter Plan of Treatment Upcoming Encounters Date Type Department Care Team (Late st Contact Info) Description 04/09/2024 16:30 EDT Office Visit [email or web address] Hematology & Oncology - [address] [phone] Erin Barillas MD [address] [place] [address], [facility] 2 [place] [phone] 05/18/2024 10:00 EST Office Visit [facility] Rheumatology & Immunology - [address] [phone] Tod Perez NP 111 [facility], [facility] 5 [place] [phone] 06/03/2024 9:[address] [facility]iology Clinic [address] [place] [address] 06/03/2024 9:[address] [facility] Cardiology Clinic [address] [place] [address] [phone] Claire Lopez NP [address] [place] [phone] documented as of this encounter Visit Diagnoses Not on filedocumented in this encounter Discontinued Medications Medication Sig Discontinue Reason Start Date End Da te hydroxyurea (HYDREA) 500 mg capsuleIndications:polycy themia vera Take 1 Cap by mouth daily for 90 days. 11/14/2020 02/12/2021 documented as of this encounter Care Teams Crime Data Specialist Relationship Specialty Start Date End Date Layne Cai MD 26 [place] [address] PCP - General 04/05/20 12/16/23 Vianey Bocanegra APRN 26 [facility] 185 [place] [address] PCP - General 12/17/23 Claire Lopez NP [address] [place] [address] Cardiovascular Disease 11/22/20 Tod Perez NP 111 [facility] 5 [place] [address] Rheumatology 12/28/20 documented as of this encounter
--- OUTSIDE RECORDS SUMMARY | 2024-01-09 01:49 | XMS_ITS | Encounter Summary ---
Author Organization [facility] Address [address] [place] [address] Care Team Providers Care Parachute Packer Name Role Phone Layne Cai MD Primary Care Provider [phone] Claire Lopez OVEN OPERATOR AUTOMATIC Unavailable [phone] Tod Perez OVEN OPERATOR AUTOMATIC Unavailable [phone] Encounter Details Date Type Department Care Team (Late st Contact Info) Description 06/25/2021 Abstract [facility] Rheumatology & Immunology - [facility] [address] [place], [place] [phone] Tod Perez, OVEN OPERATOR AUTOMATIC 111 [facility], Level 5 [place] [address] Social History Tobacco Use Types [...] Description 04/09/2024 16:30 EDT Office Visit [facility] [place] Hematology & Oncology - [address] [phone] Erin Barillas MD [address] [place] [address], [facility] 2 [place] [phone] 05/18/2024 10:00 EST Office Visit [facility] Rheumatology & Immunology [address] [phone] Tod Perez NP [address] [place] [address], [facility] 5 [place] [phone] 06/03/2024 9:00 EST Ancillary Procedure [facility] Cardiology Clinic [address] [place] [address] 06/03/2024 9:00 EST Office Visit [facility] Cardiology Clinic [address] [place] [address] [phone] Claire Lopez NP [address] [place] [address] [facility] [address] [place] [address] documented as of this encounter Procedures Procedure Name Priority Date/Time Associated Diagnosis Comments COMPREHENSIVE METABOLIC PANEL (CMP) Routine 06/22/2021 documented in this encounter Results * COMPREHENSIVE METABOLIC PANEL (CMP) (06/22/2021) GFR, Calculated, External 58.71 [facility] Glucose, Serum, External 124 [facility] Comment:high Albumin, External 4.0 [facility] Total Alkaline Phosphatase, External 118 [facility] Comment:high ALT, External 24 [facility] AST, External 15 [facility] BUN, External 20 [facility] Comment:high Calculated Calcium, External [facility] Calcium, External 8.7 [facility] [...] OF CARE Blood VENOUS BLOOD / Unknown 06/22/2021 Tod Perez NP CHEMISTRY & BLOOD G ORDERABLES [facility] documented in this encounter Visit Diagnoses Not on filedocumented in this encounter Care Teams Parachute Packer Relationship Specialty Start Date End Date Layne Cai MD 26 [place] [address] PCP - General 04/05/20 12/16/23 Claire Lopez NP [address] [place] [address] 21 [place] [phone] Cardiovascular Disease 11/22/20 Tod Perez NP [address] [place] [address], [facility] 5 [place] [phone] Rheumatology 12/28/20 documented as of this encounter
--- OUTSIDE RECORDS SUMMARY | 2024-01-09 01:49 | XMS_ITS | Encounter Summary ---
Author Organization [facility] Address [address] [place] [address] Care Team Providers Care Shell Worker Name Role Phone Layne Cai MD Primary Care Provider [phone] Claire Lopez YARD MANAGER Unavailable [phone] Tod Perez YARD MANAGER Unavailable [phone] Reason for Referral * Prior Authorization (See Order Priority) - Closed Specialty Diagnoses / Procedures Referred By Marissa carney Referred To Contact Infusion Therapy Diagnoses Polycythemia vera ([facility]) Reshma Hilario, YARD MANAGER 111 [facility], [facility] 2 [place] [address] [facility] [address] [place] [address] Referral ID Status Reason Start Date Expiration Date V isits Requested Visits Authorized [id number] Closed Specialty Services Required 06/14/2021 1 1 [...] st Contact Info) Description 06/14/2021 Orders Only [facility] Hematology Oncology [address] [address] Norah Verduzco RN Polycythemia vera (HCC) ([facility]) (Primary Dx) Social History Tobacco Use Types [...] Notes * Norah Verduzco RN - 06/14/2021 0851 EST [id number] placed for therapeutic phlebotomy needed on 06/19/21 documented in this encounter Plan of Treatment Upcoming Encounters Date Type Department Care Team (Late st Contact Info) Description 04/09/2024 16:30 EDT Office Visit [facility] Hematology & Oncology [address] [phone] Erin Barillas MD [address] [place] [address] Level 2 [place] [phone] 05/18/2024 10:00 EST Office Visit [facility] Rheumatology & Immunology - [address] [phone] Tod Perez NP [address] [place] [address] 5 [place] [address] 06/03/2024 9:00 EST Ancillary Procedure [facility] Cardiology Clinic [address] [place] [address] 06/03/2024 9:00 EST Office Visit [facility]iology Clinic [address] [place] [address] Claire Lopez NP [address] [place] [address] Scheduled Referrals Name Type Priority Associated Diagnoses Orde r Schedule AMB CONS/FOLLOW UP (SHEP 4 INFUSIONS) Outpatient Referral STAT Polycythemia vera (HCC) ([facility]) Expected: 06/14/2021 (Approximate), Expires: 06/14/2022 documented as of this encounter Visit Diagnoses Diagnosis Polycythemia vera ([facility])- Primary documented in this encounter Care Teams Shell Worker Relationship Specialty Start Date End Date Layne Cai MD [address] [place] [phone] PCP - General 04/05/20 12/16/23 Claire Lopez NP [address] [place] [address] Cardiovascular Disease 11/22/20 Tod Perez NP [address] [place] [address] Level 5 [place] [address] Rheumatology 12/28/20 documented as of this encounter
--- OUTSIDE RECORDS SUMMARY | 2024-01-09 01:49 | XMS_ITS | Encounter Summary ---
Author Organization [facility] Address [address] [place] [address] Care Team Providers Care Biostatistics Teacher Name Role Phone Layne Cai MD Primary Care Provider [phone] Claire Lopez PHYSICIAN ASSISTANT CERTIFIED Unavailable [phone] Tod Perez PHYSICIAN ASSISTANT CERTIFIED Unavailable [phone] Reason for Visit * Reason Onset Date Comments Appointment Related 05/16/2021 Encounter Details Date Type Department Care Team (Late st Contact Info) Description 05/16/2021 Telephone [facility] Cancer Center Hematology & Oncology - [facility] [address] [place], [place] [phone] Reshma Hilario, PHYSICIAN ASSISTANT CERTIFIED 111 [facility] Level 2 [place] [address] Appointment Related Social History Tobacco [...] * Telephone Encounter - Karina Bustamante - 05/16/2021 0943 EST pts 05/17 zoom now on 06/14 as pt needed to get labs documented in this encounter Plan of Treatment Upcoming Encounters Date Type Department Care Team (Late st Contact Info) Description 04/09/2024 16:30 EDT Office Visit [facility] [place] Hematology & Oncology - [address] [phone] Erin Barillas MD [address] [place] [address] 2 [place] [phone] 05/18/2024 10:00 EST Office Visit [facility] Rheumatology & Immunology - [address] 329171 Tod Perez NP [address] [place] [address] 5 [place] [phone] 06/03/2024 9:00 EST Ancillary Procedure [facility] Cardiology Clinic [address] [place] [address] [id number] 06/03/2024 9:00 EST Office Visit [facility] Cardiology Clinic [address] [place] [address] [phone] Claire Loepz NP [address] [place] [address]-[address] [place] [address] documented as of this encounter Visit Diagnoses Not on filedocumented in this encounter Care Teams Biostatistics Teacher Relationship Specialty Start Date End Date Layne Cai MD [address] [place] [address] PCP - General 04/05/20 12/16/23 Claire Lopez NP 130 [facility] 21 [place] [address] Cardiovascular Disease 11/22/20 Tod Perez NP 111 [facility], Level 5 [place] [address] Rheumatology 12/28/20 documented as of this encounter
--- OUTSIDE RECORDS SUMMARY | 2024-01-09 01:49 | XMS_ITS | Encounter Summary ---
Author Organization [facility] Address [address] [place] [address] Care Team Providers Care Wire Straightener Name Role Phone Layne Cai MD Primary Care Provider [phone] Claire Lopez HOUSE MOVER SUPERVISOR Unavailable Tod Perez HOUSE MOVER SUPERVISOR Unavailable [phone] Reason for Visit * Reason Onset Date Comments Appointment Related 05/15/2021 Encounter Details Date Type Department Care Team (Late st Contact Info) Description 05/15/2021 Telephone [facility] Cancer Center Hematology & Oncology - [facility] [address] [place], [place] [phone] Reshma Hilario, HOUSE MOVER SUPERVISOR 111 [facility] Level 2 [place] [address] Appointment Related Social History Tobacco [...] * Telephone Encounter - Karina Bustamante - 05/15/2021 1138 EST Asked pt to have labs done either today or tomorrow for 05/17 zoom appt with AB documented in this encounter Plan of Treatment Upcoming Encounters Date Type Department Care Team (Late st Contact Info) Description 04/09/2024 16:30 EDT Office Visit [facility] Hematology & Oncology - [address] [phone] Erin Barillas MD [address] [place] [address] 2 [place] [phone] 05/18/2024 10:00 EST Office Visit [facility] Rheumatology & Immunology - [address] 602881 Tod Perez NP [address] [place] [address], [facility] 5 [place] [address] 06/03/2024 9:[address] [facility] Cardiology Clinic [address] [place] [address] [id number] 06/03/2024 9:[address] [facility] Cardiology Clinic [address] [place] [address] [phone] Claire Lopez NP [address] [place] [address]-A [address] [place] [phone] documented as of this encounter Visit Diagnoses Not on filedocumented in this encounter Care Teams Wire Straightener Relationship Specialty Start Date End Date Layne Cai MD 26 [place] [address] PCP - General 04/05/20 12/16/23 Claire Lopez NP 130 [facility] 21 [place] [address] Cardiovascular Disease 11/22/20 Tod Perez NP 111 [facility], Level 5 [place] [phone] Rheumatology 12/28/20 documented as of this encounter
--- OUTSIDE RECORDS SUMMARY | 2024-01-09 01:49 | XMS_ITS | Encounter Summary ---
Author Organization [facility] Address [address] [place] [address] Care Team Providers Care Leather Cutter Name Role Phone Layne Cai MD Primary Care Provider [phone] Claire Lopez ADULT BASIC EDUCATION INSTRUCTOR Unavailable [phone] Tod Perez ADULT BASIC EDUCATION INSTRUCTOR Unavailable [phone] Reason for Visit * Reason Comments Telemedicine Video Visit Follow-up Encounter Details Date Type Department Care Team (Late st Contact Info) Description 06/14/2021 8:[address] [facility] Cancer Center Hematology & Oncology - [facility] [place] [address] [place], [place] [phone] Reshma Hilario, ADULT BASIC EDUCATION INSTRUCTOR 111 [facility], Level 2 [place] [address] Polycythemia vera (HCC) (HCC-CMS) (Primary [...] of this encounter Progress Notes * Reshma Hilario, BATSHEVA - 06/14/2021 0800 EST [...] visit. The location of the patient : [place], [place] The location of the provider: [place], [place] The following staff and their role [...] states that he is feeling well. He has not had any trouble with hydroxyrea. He periodically receives TP intermittently, last on 05/04. Hetolerates this fine. He has noticed an acneiform rash that his thinks could be from hydroxyurea. His PCP prescribed doxycycline and this has resolved. They are planning on traveling to [place] from June 26 to mid-September. They're thinking of etablishing care with a cable supervisor out there, but would prefer not to. [...] 2 SOCIAL HISTORY: Retired. Worked for the [employer]. Former smoker with 20 pack year smoking history, quit 40 years ago. His was an x-ray biological science technician fish at [employer]. Family history: No family history [...] well tolerated. He receives intermittent phlebotomy at [facility], most recently on 05/04 (although I cannot see labs prior to that since December.) His most recent hematocrit level on 05/21/21 was 44 which is at goal. That being said, he is planning on traveling to [place] for 3 months and I think it would make sense to have phlebotomy before he leaves. We'll try to arrange this for 06/19/21, [facility] We'll plan on seeing him back when he returns from [place] in September. PLAN: 1. Schedule phlebotomy ideally [...] us in 3 months when returning from [place]. Reshma Hilario NP ([facility]) Hematology Oncology I [...] CENTER Cancer Center Hematology & Oncology - [address] [phone] Erin Barillas MD 111 [facility], [facility] 2 [place] [phone] 05/18/2024 10:00 EST Office Visit [facility] Rheumatology & Immunology - [address] 309451 Tod Perez NP 111 [facility], [facility] 5 [place] [phone] 06/03/2024 9:00 EST Ancillary Procedure [facility] [address] [place] [address] 06/03/2024 9:00 EST Office Visit [facility] [address] [place] [address] Claire Lopez NP 130 [facility] [address] [address] documented as of this encounter Visit Diagnoses Diagnosis Polycythemia vera (HCC-CMS)- Primary documented in this encounter Discontinued Medications Medication Sig Discontinue Reason Start Date End Da te isosorbide MONOnitrate (IMDUR) 30 mg CR tablet Take 1 Tablet by mouth daily. 03/02/2021 06/14/2021 atorvastatin (LIPITOR) 40 mg tablet Take 1 Tab by mouth at bedtime. 11/09/2020 06/14/2021 documented as of this encounter Historical Medications * This list may reflect changes made after this encounter. Medication Sig Dispensed Refills Start Date End Date simvastatin (ZOCOR) 40 mg tablet Take 1 Tablet by mouth every evening. doxycycline (VIBRA-TABS) 100 mg tablet Take 100 mg by mouth 2 times daily. 11/15/2021 added in this encounter Care Teams Leather Cutter Relationship Specialty Start Date End Date Layne Cai MD 26 [place] [address] PCP - General 04/05/20 12/16/23 Claire Lopez NP 130 [facility] [address] [address] Cardiovascular Disease 11/22/20 Tod Perez NP 111 [facility], [facility] 5 [place] [phone] Rheumatology 12/28/20 documented as of this encounter
--- OUTSIDE RECORDS SUMMARY | 2024-01-09 01:49 | XMS_ITS | Encounter Summary ---
Author Organization [facility] Address [address] [place] [address] Care Team Providers Care Hand Scudder Name Role Phone Layne Cai MD Primary Care Provider Claire Lopez VOICE OVER ANNOUNCER Unavailable [phone] Tod Perez VOICE OVER ANNOUNCER Unavailable [phone] Reason for Visit * Reason Comments Telemedicine Video Visit Follow-up Encounter Details Date Type Department Care Team (Late st Contact Info) Description 04/20/2021 16:30 EDT Telemedicine [facility] Cancer Center Hematology & Oncology - [address] [phone] Erin Barillas MD 111 [facility] Level 2 [place] [address] Polycythemia vera (HCC) (HCC-CMS) (Primary [...] Progress Notes * Erin Barillas MD - 04/20/2021 1630 EDT [...] over but no episodes of loss of consciousnessor falls reported. No other concerns today. 12 point ROS performed with pertinent positives and negatives as documented in HPI and ROS summary below. Previous Visit Patient reports that he generally feels well. States that he is very active and works 8-10 hours a day. Denies any fatigue. However, does report an unintentional weight loss of 8-10 lbs over the past6 months. States that he has a good appetite. Denies any fevers or chills. No night sweats. No headaches. Occasional dizziness but no loss of consciousness reported. No vision changes reported. No URI symptoms. Denies any dyspnea or cough. No chest pain or palpitations. No nausea or vomiting. No abdominal pain. No changes in bowel habits. No blood in stool or urine reported. Reports occasional tingling in the left hand. Denies any pruritus. Denies any skin rashes. States that he spent the winter in [place] and noted that his fingers would turn [...] below. Social history: Retired. Worked for the [employer]. 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 Attends [employer]: Not on file ??? Active Member [...] No calf tenderness Labs: Labs: Reviewed in [facility] Review of records from patient's PCP's office [...] the date of this encounter meeting with this patient, reviewing medical records, radiology reports and studies, laboratory results, updating the chart and records, documenting today's findings and recommendations, writing orders as necessary, and reviewing this all with the patient and coordinating care and followup as necessary. Erin Barillas MD documented in this encounter Plan of Treatment Upcoming Encounters Date Type Department Care Team (Late st Contact Info) Description 04/09/2024 16:30 EDT Office Visit [facility] Cancer [place] Hematology & Oncology - [address] [phone] Erin Barillas MD [address] [place] [address], [facility] 2 [place] [phone] 05/18/2024 10:00 EST Office Visit [facility] [place] Rheumatology & Immunology - [address] [phone] Tod Perez NP 111 [facility], [facility] 5 [place] [phone] 06/03/2024 9:00 EST Ancillary Procedure [facility] Cardiology Clinic 130 [place] [address] 06/03/2024 9:00 EST Office Visit [facility] Cardiology Clinic [address] [place] [address] Claire Lopez NP 130 [facility] [address] [place] [address] documented as of this encounter Visit Diagnoses Diagnosis Polycythemia vera (HCC-CMS)- Primary documented in this encounter Care Teams Hand Scudder Relationship Specialty Start Date End Date Layne Cai MD [address] [place] [phone] PCP - General 04/05/20 12/16/23 Claire Lopez NP 130 [facility] [address] [address] Cardiovascular Disease 11/22/20 Tod Perez NP 111 [facility], Level 5 [place] [phone] Rheumatology 12/28/20 documented as of this encounter
--- OUTSIDE RECORDS SUMMARY | 2024-01-09 01:49 | XMS_ITS | Encounter Summary ---
Author Organization [facility] Address [address] [place] [address] Care Team Providers Care Tool Technician Name Role Phone Layne Cia MD Primary Care Provider [phone] Claire Lopez LATHE OPERATOR Unavailable [phone] Tod Perez LATHE OPERATOR Unavailable [phone] Reason for Visit * Reason Onset Date Comments Results 06/11/2021 Encounter Details Date Type Department Care Team (Late st Contact Info) Description 06/11/[address] [facility] Cancer Center Hematology & Oncology - [facility] [address] [place] [address] Erin Barillas MD 111 [facility] Level 2 [place] [address] Results Social History Tobacco Use [...] * Telephone Encounter - Augustina Salazar - 06/11/2021 1520 EST LABS ENTERED FROM EXTERNAL LAB. Augustina Salazar 06/11/2021 15:20 documented in this encounter Plan of Treatment Upcoming Encounters Date Type Department Care Team (Late st Contact Info) Description 04/09/2024 16:30 EDT Office Visit [facility] Hematology & Oncology [address] 1770[address] Erin Barillas MD [address] [place] [address] 2 [place] [phone] 05/18/2024 10:00 EST Office Visit [facility] Rheumatology & Immunology - [address] 508031 Tod Perez NP [address] [place] [address] 5 [place] [phone] 06/03/2024 9:00 EST Ancillary Procedure [facility] Cardiology Clinic [address] [place] [address] [phone] 06/03/2024 9:00 EST Office Visit [facility] Cardiology Clinic [address] [place] [address] [phone] Claire Lopez NP [address] [place] [address] MOB-A [address] [place] [address] documented as of this encounter Procedures Procedure Name Priority Date/Time Associated Diagnosis Comments COMPREHENSIVE METABOLIC PANEL (ONCOLOGY USE ONLY-INC MG) Routine 05/21/2021 COMPLETE BLOOD COUNT AND DIFFERENTIAL Routine 05/21/2021 documented in this encounter Results * (ABNORMAL) COMPLETE BLOOD COUNT AND DIFFERENTIAL (05/21/2021) WBC, External 7.51 EXTERNAL LAB RBC, External 4.73 EXTERNAL LAB Hemoglobin, External 13.3(A) 13.5 - 17.5 EXTERNAL LAB HCT, External 44.4 EXTERNAL LAB MCV, External 93.9 EXTERNAL LAB MCH, External 28.1 EXTERNAL LAB MCHC, External 30.0(A) 32.0 - 36.0 EXTERNAL LAB PLT, External 328 EXTERNAL LAB RDW-CV, External 16.4(A) 11.8 - 14.1 EXTERNAL LAB Neutrophils, External 72.9 EXTERNAL LAB Lymphocytes, External 17.7 EXTERNAL LAB Monocytes, External 8.0 EXTERNAL LAB Eosinophils, External 0.0 EXTERNAL LAB Basophils, External 0.7 EXTERNAL LAB ABS Neutrophils, External 5.48 EXTERNAL LAB ABS Lymphs, External 1.33 EXTERNAL LAB ABS Monocytes, External 0.60 EXTERNAL LAB ABS Eosinophils, External 0.00 EXTERNAL LAB ABS Basophils, External 0.05 EXTERNAL LAB Blood VENOUS BLOOD / Unknown 05/21/2021 Historical Provider PACKAGES & DNA IA OBE ORDERABLES EXTERNAL LAB * (ABNORMAL) COMPREHENSIVE METABOLIC PANEL (ONCOLOGY USE ONLY-INC MG) (05/21/2021) Calcium, External 9.0 EXTERNAL LAB CO2, External 29.3 EXTERNAL LAB AST, External 19 EXTERNAL LAB ALT, External 20 EXTERNAL LAB Bilirubin, Total, External 0.4 EXTERNAL LAB Creatinine, External 1.3 EXTERNAL LAB Calculated Calcium, External EXTERNAL LAB Anion Gap, External EXTERNAL LAB Total Protein, External 7.0 EXTERNAL LAB Potassium, External 5.0 EXTERNAL LAB Total Alkaline Phosphatase, External 93 EXTERNAL LAB Albumin, External 3.7 EXTERNAL LAB BUN, External 17 EXTERNAL LAB GFR, Calculated, External 53.53 EXTERNAL LAB Fasting?, External EXTERNAL LAB Chloride, External 102 EXTERNAL LAB Glucose, Serum, External 127(A) 74 - 106 EXTERNAL LAB Sodium, External 139 EXTERNAL LAB Magnesium, External EXTERNAL LAB Blood VENOUS BLOOD / Unknown 05/21/2021 Historical Provider CHEMISTRY & BLOOD GAS ORDERABLES EXTERNAL LAB documented in this encounter Visit Diagnoses Not on filedocumented in this encounter Care Teams Tool Technician Relationship Specialty Start Date End Date Layne Cai MD [address] [place] [phone] PCP - General 04/05/20 12/16/23 Claire Lopez NP [address] [place] [address] 2[address]1 [place] [address] Cardiovascular Disease 11/22/20 Tod Perez NP [address] [place] [address], [facility] 5 [place] [address] Rheumatology 12/28/20 documented as of this encounter
--- OUTSIDE RECORDS SUMMARY | 2024-01-09 01:49 | XMS_ITS | Encounter Summary ---
Author Organization [facility] Address [address] [place] [address] Care Team Providers Care Manufacturing Technology Analyst Name Role Phone Layne Cai MD Primary Care Provider [phone] Claire Lopez DOPE DRY HOUSE OPERATOR Unavailable [phone] Tod Perez DOPE DRY HOUSE OPERATOR Unavailable [phone] Reason for Visit * Reason Onset Date Comments Appointment Related 04/23/2021 Encounter Details Date Type Department Care Team (Late st Contact Info) Description 04/23/2021 Telephone [facility] Cancer Center Hematology & Oncology - [facility] [address] [place] [address] Erin Barillas MD 111 [facility] Level 2 [place] [address] Appointment Related Social History Tobacco [...] * Telephone Encounter - Karina Bustamante - 04/23/2021 1041 EST Called pt with 05/07 labs and 05/17 zoom with AB documented in this encounter Plan of Treatment Upcoming Encounters Date Type Department Care Team (Late st Contact Info) Description 04/09/2024 16:30 EDT Office Visit [facility] Hematology & Oncology [address] 805261 Erin Barillas MD [address] [place] [address] 2 [place] [address] 05/18/2024 10:00 EST Office Visit [facility] Rheumatology & Immunology - [address] [phone] Tod Perez NP [address] [place] [address], [facility] 5 [place] [phone] 06/03/2024 9:00 EST Ancillary Procedure [facility] Cardiology Clinic [address] [place] [phone] 06/03/2024 9:00 EST Office Visit [facility] Cardiology Clinic [address] [place] [address] [phone] Claire Lopez NP [address] [place] [address] MOB-A [address] [place] [address] documented as of this encounter Visit Diagnoses Not on filedocumented in this encounter Care Teams Manufacturing Technology Analyst Relationship Specialty Start Date End Date Layne Cai MD [address] [place] [address] PCP - General 04/05/20 12/16/23 Claire Lopez NP [address] [place] [address] MOB-A [address] [place] [address] Cardiovascular Disease 11/22/20 Tod Perez NP [address] [place] [address], [facility] 5 [place] [address] Rheumatology 12/28/20 documented as of this encounter
--- OUTSIDE RECORDS SUMMARY | 2024-01-09 01:49 | XMS_ITS | Encounter Summary ---
Author Organization [facility] Address [address] [place] [address] Care Team Providers Care Chiropractic Neurologist Name Role Phone Layne Cai MD Primary Care Provider [phone] Claire Lopez NP Unavailable [phone] Tod Perez NP Unavailable [phone] Reason for Visit * (Routine) - Closed Specialty Diagnoses / Procedures Referred By Marissa carney Referred To Contact Diagnoses Pacemaker Procedures CARDIAC IMPLANT CHECK - IN CLINIC Claire Lopez NP 130 [facility] [address] [place] [address] Referral ID Status Reason Start Date Expiration Date Visits Re quested Visits Authorized [id number] Closed 05/11/2019 1 1 Encounter Details Date Type Department Care Team (Late st Contact Info) Description 03/02/2021 15:00 EDT Ancillary Procedure [facility] Cardiology Clinic [address] [place] [address] Pacemaker Social History Tobacco Use [...] Visit [facility] Hematology & Oncology [address] 082641 Erin Barillas MD [address] [place] [address] 2 [place] [phone] 05/18/2024 10:00 EST Office Visit [facility] Rheumatology & Immunology [address] 116531 Tod Perez NP [address] [place] [address] 5 [place] [phone] 06/03/2024 9:00 EST Ancillary Procedure [facility] Cardiology Clinic [address] [place] [phone] 06/03/2024 9:00 EST Office Visit [facility] Cardiology Clinic [address] [place] [address] [phone] Claire Lopez NP 130 [facility] MOB-A [address] [place] [address] documented as of this encounter Procedures Procedure Name Priority Date/Time Associated Diagnosis Comments CARDIAC IMPLANT CHECK - IN CLINIC Routine 03/02/2021 16:26 EDT Pacemaker documented in this encounter Results * CARDIAC IMPLANT CHECK - IN CLINIC - PACEMAKER SINGLE CHAMBER W/ PROG (03/02/2021 16:26 EDT) Anatomical Region Laterality Modality Device Narrative 03/02/2021 16:26 EDT Refer to same day OV for full details Procedure Note Claire Lopez APRN - 03/02/2021 Refer to same day OV for full details Claire Lopez NP CV IMPLANTABLE CARDI AC DEVICE documented in this encounter Visit Diagnoses Diagnosis Pacemaker Cardiac pacemaker in situ documented in this encounter Care Teams Chiropractic Neurologist Relationship Specialty Start Date End Date Layne Cai MD [address] [place] [address] PCP - General 04/05/20 12/16/23 Claire Lopez NP [address] [place] [address] [address] [place] [address] Cardiovascular Disease 11/22/20 Tod Perez NP [address] [place] [address], [address] [place] [phone] Rheumatology 12/28/20 documented as of this encounter
--- OUTSIDE RECORDS SUMMARY | 2024-01-09 01:49 | XMS_ITS | Encounter Summary ---
Author Organization [facility] Address [address] [place] [address] Care Team Providers Care Mud Jack Nozzle Worker Name Role Phone Layne Cai MD Primary Care Provider Claire Lopez FILLING AND PACKING SUPERVISOR Unavailable [phone] Tod Perez FILLING AND PACKING SUPERVISOR Unavailable [phone] Encounter Details Date Type Department Care Team (Late st Contact Info) Description 05/03/2021 Orders Only [facility] Cancer Center Hematology & Oncology - [facility] [address] [place] [address] Chikis Bearden, TRAM Polycythemia vera (HCC) ([facility]) (Primary Dx) Social History Tobacco Use Types [...] Description 04/09/2024 16:30 EDT Office Visit [facility] Hematology & Oncology [address] 408691 Erin Barillas MD [address] [place] [address] 2 [place] [phone] 05/18/2024 10:00 EST Office Visit [facility] Rheumatology & Immunology [address] [phone] Tod Perez NP [address] [place] [address] 5 [place] [phone] 06/03/2024 9:00 EST Ancillary Procedure [facility] [address] [place] [address] 06/03/2024 9:00 EST Office Visit [facility] [address] [place] [address] [phone] Claire Lopez NP [address] [place] [address] [address] [place] [phone] documented as of this encounter Visit Diagnoses Diagnosis Polycythemia vera (HCC-CMS)- Primary documented in this encounter Orders Nursing Count Last Ordered Date First Orde red Date NURSING COMMUNICATION 1 05/03/2021 documented in this encounter Care Teams Mud Jack Nozzle Worker Relationship Specialty Start Date End Date Layne Cai MD [address] [place] [phone] PCP - General 04/05/20 12/16/23 Claire Lopez NP [address] [place] [address] [phone] Cardiovascular Disease 11/22/20 Tod Perez NP [address] [place] [address], Level 5 [place] [address] Rheumatology 12/28/20 documented as of this encounter
--- OUTSIDE RECORDS SUMMARY | 2024-01-09 01:49 | XMS_ITS | Encounter Summary ---
Author Organization [facility] Address [address] [place] [address] Care Team Providers Care Application Penetration Tester Name Role Phone Layne Cai MD Primary Care Provider [phone] Claire Lopez SURVEYOR MINE Unavailable [phone] Tod Perez SURVEYOR MINE Unavailable [phone] Reason for Visit * Reason Onset Date Comments Appointment Related 05/15/2021 Encounter Details Date Type Department Care Team (Late st Contact Info) Description 05/15/2021 Telephone [facility] Cancer Center Hematology & Oncology - [facility] [address] [place], [place] [phone] Reshma Hilario, SURVEYOR MINE 111 [facility] Level 2 [place] [address] Appointment Related Social History Tobacco [...] encounter Miscellaneous Notes * Telephone Encounter - Margaret Zelaya MA - 05/15/2021 1502 EST Called pt for 05/17 appt. No answer. Left message. MARGARET ZELAYA MA 05/15/2021 15:09 documented in this encounter Plan of Treatment Upcoming Encounters Date Type Department Care Team (Late st Contact Info) Description 04/09/2024 16:30 EDT Office Visit [facility] Hematology & Oncology [address] [phone] Erin Barillas MD [address] [place] [address] 2 [place] [phone] 05/18/2024 10:00 EST Office Visit [facility] Rheumatology & Immunology - [address] [phone] Tod Perez NP [address] [place] [address], [facility] 5 [place] [phone] 06/03/2024 9:00 EST Ancillary Procedure [facility] Cardiology Clinic [address] [place] [address] [phone] 06/03/2024 9:00 EST Office Visit [facility] Cardiology Clinic [address] [place] [address] Claire Lopez NP 130 [facility] 21 [place] [address] documented as of this encounter Visit Diagnoses Not on filedocumented in this encounter Care Teams Application Penetration Tester Relationship Specialty Start Date End Date Layne Cai MD 26 [place] [phone] PCP - General 04/05/20 12/16/23 Claire Lopez NP 130 [facility] [address] [address] Cardiovascular Disease 11/22/20 Tod Perez NP 111 [facility], Level 5 [place] [phone] Rheumatology 12/28/20 documented as of this encounter
--- OUTSIDE RECORDS SUMMARY | 2024-01-09 01:49 | XMS_ITS | Encounter Summary ---
Author Organization [facility] Address [address] [place] [address] Care Team Providers Care Superintendent Maintenance Name Role Phone Layne Cai MD Primary Care Provider [phone] Claire Lopez MAINSPRING WINDER AND OILER Unavailable [phone] Tod Perez MAINSPRING WINDER AND OILER Unavailable [phone] Vianey Bocanegra APRN Primary Care Provider [phone] Reason for Visit * Reason Onset Date Comments Coordination Of Care 01/02/2021 Encounter Details Date Type Department Care Team (Late st Contact Info) Description 01/02/2021 Telephone [facility] Rheumatology & Immunology - [facility] [address] [place] [address] Tod Perez MAINSPRING WINDER AND OILER 111 [facility], Level 5 [place] [address] Coordination Of Care Social History [...] encounter Miscellaneous Notes * Telephone Encounter - Melchor Cantrell - 01/02/2021 9373 EDT Reason for Call: Coordination Of Care Summary/Symptoms: [facility] received a referral from Tod but the clinic is confused on if the patient was needing anything sleep related as from what they can tell the referral is for Pulm. If it was for Pulm please refax to [phone] and Pulm phone is [phone] Melchor Cantrell 01/02/2021 12:38 documented in this encounter Plan of Treatment Upcoming Encounters Date Type Department Care Team (Late st Contact Info) Description 04/09/2024 16:30 EDT Office Visit [facility] Hematology & Oncology - [address] [phone] Erin Barillas MD 111 [facility] 2 [place] [phone] 05/18/2024 10:00 EST Office Visit [facility] Rheumatology & Immunology [address] [phone] Tod Perez NP 111 [facility], [facility] 5 [place] [phone] 06/03/2024 9:00 EST Ancillary Procedure [facility] Cardiology Clinic 130 [place] [address] 06/03/2024 9:00 EST Office Visit [facility] Cardiology Clinic [address] [place] [address] Claire Lopez NP 130 [facility] [address] [address] documented as of this encounter Visit Diagnoses Not on filedocumented in this encounter Additional Health Concerns Infection Onset Date Last Indicated Resolved Time R/O COVID-19 12/28/2020 12/28/2020 01/02/2021 22:1 5 EDT documented as of this encounter Care Teams Superintendent Maintenance Relationship Specialty Start Date End Date Layne Cai MD 26 [place] [address] PCP - General 04/05/20 12/16/23 Vianey Bocanegra APRN 26 [facility] 185 [place] [address] PCP - General 12/17/23 Claire Lopez NP [address] [place] [address] [phone] Cardiovascular Disease 11/22/20 Tod Perez NP 111 [facility] 5 [place] [phone] Rheumatology 12/28/20 documented as of this encounter
--- OUTSIDE RECORDS SUMMARY | 2024-01-09 01:49 | XMS_ITS | Encounter Summary ---
Author Organization [facility] Address [address] [place] [address] Care Team Providers Care Call Center Professional Name Role Phone Layne Cai MD Primary Care Provider [phone] Claire Lopez LAMINATION OPERATOR Unavailable Tod Perez LAMINATION OPERATOR Unavailable [phone] Reason for Referral * Prior Authorization (See Order Priority) - Closed Specialty Diagnoses / Procedures Referred By Marissa carney Referred To Contact Infusion Therapy Diagnoses Polycythemia vera ([facility] Erin Barillas MD 111 [facility], [facility] 2 [place] [address] [facility] She[address] [place] [address] Referral ID Status Reason Start Date Expiration Date V isits Requested Visits Authorized [id number] Closed Specialty Services Required 04/23/2021 06/15/2021 1 [...] Yes Comments Therapeutic phleb order from 08/2020 Encounter Details Date Type Department Care Team (Late st Contact Info) Description 04/23/2021 Orders Only [facility] Hematology & Oncology [address] [address] Chikis Bearden RN Polycythemia vera (HCC) ([facility]) (Primary Dx) Social History Tobacco Use Types [...] as of this encounter Progress Notes * Chikis Bearden RN - 04/23/2021 1350 EST requested patient have therapeutic phlebotomy week of 04/30. Spoke with Jatinder at [facility], placed new [email or web address] to be scheduled. documented in this encounter Plan of Treatment Upcoming Encounters Date Type Department Care Team (Late st Contact Info) Description 04/09/2024 16:30 EDT Office Visit [facility] Hematology & Oncology - [address] 749201 Erin Barillas MD 111 [facility], [facility] 2 [place] [phone] 05/18/2024 10:00 EST Office Visit [facility] Rheumatology & Immunology - [address] [phone] Tod Perez NP 111 [facility], Level 5 [place] [phone] 06/03/2024 9:00 EST Ancillary Procedure [facility] Cardiology Clinic [address] [place] [phone] 06/03/2024 9:00 EST Office Visit [facility] Cardiology Clinic [address] [place] [address] [phone] Claire Lopez NP [address] [place], [place] [address]A [facility] [address] [address] Scheduled Referrals Name Type Priority Associated Diagnoses Order Schedule AMB CONS/FOLLOW UP SHEP 4 INFUSIONS Outpatient Referral Routine/Next Available Polycythemia vera (HCC) (HCC-CMS) Expected: 04/30/2021 (Approximate), Expires: 04/23/2022 documented as of this encounter Visit Diagnoses Diagnosis Polycythemia vera (HCC-CMS)- Primary documented in this encounter Care Teams Call Center Professional Relationship Specialty Start Date End Date Layne Cai MD [address] [place] [phone] PCP - General 04/05/20 12/16/23 Claire Lopez NP [address] [place], [place] [address]A [address] [address] Cardiovascular Disease 11/22/20 Tod Perez NP 111 [facility], [facility] 5 [place] [address] Rheumatology 12/28/20 documented as of this encounter
--- OUTSIDE RECORDS SUMMARY | 2024-01-09 01:49 | XMS_ITS | Encounter Summary ---
Author Organization [facility] Address [address] [place] [address] Care Team Providers Care Ios Architect Name Role Phone Layne Cai MD Primary Care Provider [phone] Claire Lopez EGG SORTER Unavailable [phone] Tod Perez EGG SORTER Unavailable [phone] Encounter Details Date Type Department Care Team (Late st Contact Info) Description 06/07/2021 Orders Only [facility] Card[facility] Clinic [address] [place] [address] Rebeka Bell RN Sinus node dysfunction (HCC-CMS) (HCC) (Primary Dx) Social History Tobacco Use Types [...] Visit [facility] Hematology & Oncology - [address] [address] Erin Barillas MD [address] [place] [address] 2 [place] [phone] 05/18/2024 10:00 EST Office Visit [facility] Rheumatology & Immunology [address] 210061 Tod Perez NP [address] [place] [address] 5 [place] [phone] 06/03/2024 9:00 EST Ancillary Procedure [facility] Cardiology Clinic [address] [place] [address] [phone] 06/03/2024 9:00 EST Office Visit [facility] Cardiology Clinic [address] [place] [address] [phone] Claire Lopez NP [address] [place] [address] [address]OB[address] [place] [phone] documented as of this encounter Visit Diagnoses Diagnosis Sinus node dysfunction (HCC-CMS)- Primary Sinoatrial node dysfunction documented in this encounter Orders Imaging Orders Without Results Count Last Order ed Date First Ordered Date CARDIAC IMPLANT CHECK - REMOTE MONITOR 1 documented in this encounter Care Teams Ios Architect Relationship Specialty Start Date End Date Layne Cai MD 26 [place] [phone] PCP - General 04/05/20 12/16/23 Claire Lopez NP [address] [place] [address] 21 [place] [phone] Cardiovascular Disease 11/22/20 Tod Perez NP [address] [place] [address], [facility] 5 [place] [address] Rheumatology 12/28/20 documented as of this encounter
--- OUTSIDE RECORDS SUMMARY | 2024-01-09 01:49 | XMS_ITS | Encounter Summary ---
Author Organization [facility] Address [address] [place] [address] Care Team Providers Care Offset Pressman Name Role Phone Layne Cai MD Primary Care Provider [phone] Claire Lopez STEM FRAZER Unavailable [phone] Tod Perez STEM FRAZER Unavailable [phone] Reason for Visit * Reason Onset Date Comments Appointment Related 03/09/2021 Encounter Details Date Type Department Care Team (Late st Contact Info) Description 03/09/2021 Telephone [facility] Cancer Center Hematology & Oncology - [facility] [address] [place] [address] Erin Barillas MD 111 [facility] Level 2 [place] [address] Appointment Related Social History Tobacco [...] * Telephone Encounter - Karina Bustamante - 03/12/2021 0851 EDT Called pt with zoom on April 20 * Telephone Encounter - Juan Bucio - 03/09/2021 1329 EDT Patients is calling about upcoming appt on 03/29/21 which they cannot make. They would prefer a zoom appointment as they are [place] [facility] to get to the clinic. Please call back to reschedule. documented in this encounter Plan of Treatment Upcoming Encounters Date Type Department Care Team (Late st Contact Info) Description 04/09/2024 16:30 EDT Office Visit [facility] Hematology & Oncology - [address] [phone] Erin Barillas MD [address] [place] [address] 2 [place] [phone] 05/18/2024 10:[address] [facility] Rheumatology & Immunology - [address] [phone] Tod Perez NP 111 [facility], [facility] 5 [place] [phone] 06/03/2024 9:00 EST Ancillary Procedure [facility] Cardiology Clinic [address] [place] [address] 06/03/2024 9:00 EST Office Visit [facility] Cardiology Clinic [address] [place] [address] [phone] Claire Lopez NP [address] [place] [address] documented as of this encounter Visit Diagnoses Not on filedocumented in this encounter Care Teams Offset Pressman Relationship Specialty Start Date End Date Layne Cai MD [address] [place] [phone] PCP - General 04/05/20 12/16/23 Claire Lopez NP [address] [place] [address] Cardiovascular Disease 11/22/20 Tod Perez NP 111 [facility], [facility] 5 [place] [address] Rheumatology 12/28/20 documented as of this encounter
--- OUTSIDE RECORDS SUMMARY | 2024-01-09 01:49 | XMS_ITS | Encounter Summary ---
Author Organization [facility] Address [address] [place] [address] Care Team Providers Care Shrimp Peeling Machine Tender Name Role Phone Lyane Cai MD Primary Care Provider [phone] Claire Lopez CONDUIT MECHANIC Unavailable [phone] Tod Perez CONDUIT MECHANIC Unavailable [phone] Reason for Visit * Reason Onset Date Comments Appointment Related 04/23/2021 Encounter Details Date Type Department Care Team (Late st Contact Info) Description 04/23/[address] [facility] Ambulatory Infusion Center [address] [place], [place] [phone] Erin Barillas MD 111 [facility] 2 [place] [address] Appointment Related Social History Tobacco [...] encounter Miscellaneous Notes * Telephone Encounter - Marilu Cleaning - 04/23/2021 1647 EST 1st attempt- Left VM requesting a call back to schedule appt. documented in this encounter Plan of Treatment Upcoming Encounters Date Type Department Care Team (Late st Contact Info) Description 04/09/2024 16:30 EDT Office Visit [facility] Hematology & Oncology - [address] [phone] Erin Barillas MD [address] [place] [address] 2 [place] [phone] 05/18/2024 10:[address] [facility] Rheumatology & Immunology - [address] 157311 Tod Perez NP [address] [place] [address], [facility] 5 [place] [phone] 06/03/2024 9:00 EST Ancillary Procedure [facility] Cardiology Clinic [address] [place] [address] 06/03/2024 9:00 EST Office Visit [facility] Cardiology Clinic [address] [place] [address] Claire Lopze NP [address] [place] [address] [address] [place] [phone] documented as of this encounter Visit Diagnoses Not on filedocumented in this encounter Care Teams Shrimp Peeling Machine Tender Relationship Specialty Start Date End Date Layne Cai MD 26 [place] [address] PCP - General 04/05/20 12/16/23 Claire Lopez NP [address] [place] [address] [address] Cardiovascular Disease 11/22/20 Tod Perez NP [address] [place] [address], [facility] 5 [place] [phone] Rheumatology 12/28/20 documented as of this encounter
--- OUTSIDE RECORDS SUMMARY | 2024-01-09 01:49 | XMS_ITS | Encounter Summary ---
Author Organization [facility] Address [address] [place] [address] Care Team Providers Care President Of [place] Name Role Phone Layne Cai MD Primary Care Provider [phone] Claire Lopez SHORT GOODS DRIER Unavailable [phone] Tod Perez SHORT GOODS DRIER Unavailable [phone] Vianey Bocanegra APRN Primary Care Provider [phone] Encounter Details Date Type Department Care Team (Late st Contact Info) Description 01/30/2021 Lab Requisition [facility] Pathology & Laboratory Medicine - [facility] [address] [place], [place] [phone] Outr Resulting Lab, Provider Social History Tobacco [...] Description 04/09/2024 16:30 EDT Office Visit [facility] Hematology & Oncology [address] 699[address] Erin Barillas MD [address] [place] [address] 2 [place] [phone] 05/18/2024 10:00 EST Office Visit [facility] Rheumatology & Immunology [address] 568991 Tod Perez NP [address] [place] [address], [facility] 5 [place] [phone] 06/03/2024 9:00 EST Ancillary Procedure [facility] Cardiology Clinic [address] [place] [address] 06/03/2024 9:00 EST Office Visit [facility] Cardiology Clinic [address] [place] [address] [phone] Claire Lopez NP [address] [place] [address] [address] [place] [phone] documented as of this encounter Procedures Procedure Name Priority Date/Time Associated Diagnosis Comments CCP ANTIBODIES Routine 01/30/2021 10:15 EDT RHEUMATOID FACTOR Routine 01/30/2021 10: 15 EDT documented in this encounter Results * RHEUMATOID FACTOR (01/30/2021 10:15 EDT) Rheumatoid Factor <8.6 <12.0 IU/mL 01/30/2021 22:06 EDT [facility] Blood VENOUS BLOOD / Unknown 01/30/2021 10:15 EDT 01/30/2021 21:19 EDT Provider Outr Resulting Lab CHEMISTRY & BLOOD GAS ORDERABLES Performing Organization Address City/[facility] Co de Phone Number [facility] [address] [place] [address] * CCP ANTIBODIES (01/30/2021 10:15 EDT) CCP Antibodies <2.5 <5.0 U/mL 01/31/2021 8:50 EDT [facility] Blood VENOUS BLOOD / Unknown 01/30/2021 10:15 EDT 01/30/2021 21:19 EDT Provider Outr Resulting Lab IMMUNOLOGY A ND SEROLOGY ORDERABLES Performing Organization Address [facility] de Phone Number [facility] [address] [place] [address] documented in this encounter Visit Diagnoses Not on filedocumented in this encounter Care Teams President Of The [place] Relationship Specialty Start Date End Date Layne Cai MD 26 [place] [address] PCP - General 04/05/20 12/16/23 Vianey Bocanegra APRN 26 [facility] 185 [place] [address] PCP - General 12/17/23 Claire Lopez NP [address] [place] [address] [phone] Cardiovascular Disease 11/22/20 Tod Perez NP 111 [facility], [facility] 5 [place] [phone] Rheumatology 12/28/20 documented as of this encounter
--- OUTSIDE RECORDS SUMMARY | 2024-01-09 01:49 | XMS_ITS | Encounter Summary ---
Author Organization [facility] Address [address] [place] [address] Care Team Providers Care Operator Name Role Phone Layne Cai MD Primary Care Provider [phone] Claire Lopez HUMAN RESOURCE PROFESSIONAL Unavailable [phone] Tod Perez HUMAN RESOURCE PROFESSIONAL Unavailable [phone] Reason for Visit * Reason Onset Date Comments Appointment Related 04/19/2021 Encounter Details Date Type Department Care Team (Late st Contact Info) Description 04/19/2021 Telephone [facility] Cancer Center Hematology & Oncology - [facility] [address] [place] [address] Erin Barillas MD 111 [facility] Level 2 [place] [address] Appointment Related Social History Tobacco [...] [facility] Hematology & Oncology - [address] 362451 Erin Barillas MD [address] [place] [address] 2 [place] [phone] 05/18/2024 10:00 EST Office Visit [facility] Rheumatology & Immunology - [address] 270311 Tod Perez NP [address] [place] [address] 5 [place] [phone] 06/03/2024 9:[address] [facility] Cardiology Clinic [address] [place] [address] 06/03/2024 9:[address] [facility] Cardiology Clinic [address] [place] [address] [phone] Claire Lopez NP 130 [facility] [address] [place] [address] documented as of this encounter Visit Diagnoses Not on filedocumented in this encounter Care Teams Operator Relationship Specialty Start Date End Date Layne Cai MD 26 [place] [phone] PCP - General 04/05/20 12/16/23 Claire Lopez NP 130 [facility] 21 [place] [address] Cardiovascular Disease 11/22/20 Tod Perez NP [address] [place] [address], Level [address] [place] [address] Rheumatology 12/28/20 documented as of this encounter
--- OUTSIDE RECORDS SUMMARY | 2024-01-09 01:49 | XMS_ITS | Encounter Summary ---
Author Organization [facility] Address [address] [place] [address] Care Team Providers Care Technician Inventory Specialist Name Role Phone Layne Cai MD Primary Care Provider [phone] Claire Lopez CITY MAGISTRATE Unavailable [phone] Tod Perez CITY MAGISTRATE Unavailable [phone] Vianey Bocanegra APRN Primary Care Provider [phone] Encounter Details Date Type Department Care Team (Late st Contact Info) Description 01/01/[address] [facility] Rheumatology & Immunology - [facility] [address] [place] [address] Tod Perez, CITY MAGISTRATE [address] [place] [address], Level 5 [place] [address] Social History Tobacco Use Types [...] Info) Description 04/09/2024 16:30 EDT Office Visit [facility] [place] Hematology & Oncology - [address] [phone] Erin Barillas MD [address] [place] [address] 2 [place] [phone] 05/18/2024 10:[address] [facility] Rheumatology & Immunology [address] [phone] Tod Perez NP [address] [place] [address] 5 [place] [phone] 06/03/2024 9:00 EST Ancillary Procedure [facility] [address] [place] [phone] 06/03/2024 9:00 EST Office Visit [facility] Cardiology Clinic [address] [place] [address] [phone] Claire Lopez NP [address] [place] [address]-A [address] [address] documented as of this encounter Visit Diagnoses Not on filedocumented in this encounter Additional Health Concerns Infection Onset Date Last Indicated Resolved Time R/O COVID-19 12/28/2020 12/28/2020 01/02/2021 22:1 5 EDT documented as of this encounter Care Teams Technician Inventory Specialist Relationship Specialty Start Date End Date Layne Cai MD [address] [place] [address] PCP - General 04/05/20 12/16/23 Vianey Bocanegra APRN 26 [facility] 185 [place] [address] PCP - General 12/17/23 Claire Lopez NP [address] [place] [address] [address] Cardiovascular Disease 11/22/20 Tod Perez NP [address] [place] [address], [facility] 5 [place] [phone] Rheumatology 12/28/20 documented as of this encounter
--- OUTSIDE RECORDS SUMMARY | 2024-01-09 01:49 | XMS_ITS | Encounter Summary ---
Author Organization [facility] Address [address] [place] [address] Care Team Providers Care Display Department Manager Name Role Phone Layne Cai MD Primary Care Provider [phone] Claire Lopez LBD TEACHER Unavailable [phone] Tod Perez LBD TEACHER Unavailable [phone] Vianey Bocanegra APRN Primary Care Provider [phone] Encounter Details Date Type Department Care Team (Late st Contact Info) Description 04/02/2021 Telephone [facility] Rheumatology & Immunology - [facility] [address] [place] [address] Tod Perez, LBD TEACHER [address] [place] [address], Level [address] [place] [address] Social History Tobacco Use Types [...] Miscellaneous Notes * Telephone Encounter - Tod Perez, BATSHEVA - 04/02/2021 1634 EDT Spoke to rosalinda on his . Dr. 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 Therefore stop MTX and switch to sulfasalazine 1. Stop methotrexate 2. Start sulfasalazine 500mg (1 tab) orally daily x 7-14 days if tolerated increase to 1 tab am and1 tab pm 3. Check labs 1 month after starting, then every 3-4 months Alt arava, or biologic documented in this encounter Plan of Treatment Upcoming Encounters Date Type Department Care Team (Late st Contact Info) Description 04/09/2024 16:30 EDT Office Visit [facility] Hematology & Oncology - [address] [phone] Erin Barillas MD [address] [place] [address] 2 [place] [phone] 05/18/2024 10:00 EST Office Visit [facility] Rheumatology & Immunology - [address] [phone] Tod Perez, FESTUS [address] [place] [address], [facility] 5 [place] [phone] 06/03/2024 9:00 EST Ancillary Procedure [facility] [address] [place] [phone] 06/03/2024 9:00 EST Office Visit [facility] [address] [place] [address] Claire Lopez NP [address] [place] [address] 21 [place] [address] documented as of this encounter Visit Diagnoses Diagnosis History of seronegative inflammatory arthritis- Primary Encounter for long-term (current) use of medications Encounter for long-term (current) use of other medications documented in this encounter Care Teams Display Department Manager Relationship Specialty Start Date End Date Layne Cai MD 26 [place] [address] PCP - General 04/05/20 12/16/23 Vianey Bocanegra APRN 26 [facility] 185 [place] [address] PCP - General 12/17/23 Claire Lopez NP [address] [place] [phone] Cardiovascular Disease 11/22/20 Tod Perez NP [address] [place] [address], [facility] 5 [place] [address] Rheumatology 12/28/20 documented as of this encounter
--- OUTSIDE RECORDS SUMMARY | 2024-01-09 01:49 | XMS_ITS | Encounter Summary ---
Author Organization [facility] Address [address] [place] [address] Care Team Providers Care Cushion Filler Name Role Phone Layne Cai MD Primary Care Provider [phone] Claire Lopez SOUNDSCRIBER MECHANIC Unavailable [phone] Tod Perez NP Unavailable [phone] Reason for Referral * Cardiology (Routine/Next Available) - Specialty Report Received Specialty Diagnoses / Procedures Referred By Marissa carney Referred To Contact Diagnoses Pacemaker Procedures TRANSTHORACIC ECHO (TTE) COMPLETE Claire Lopez, FESTUS [address] [facility] [address] [place] [phone] Referral ID Status Reason Start Date Expiration Date V isits Requested Visits Authorized [id number] Specialty Report Received 03/02/2021 1 1 Reason for Visit * Reason Comments Pacemaker/Device Check Medtronic * Cardiology (Routine) - Closed Specialty Diagnoses / Procedures Referred By Marissa carney Referred To Contact Cardiology Diagnoses Other chest pain Yannick Shaw MD [address] [place] [address] [facility] Card[facility] Clinic [address] [place] [address] Referral ID Status Reason Start Date Expiration Date Visits Re quested Visits Authorized [id number] Closed 1 1 Encounter Details Date Type Department Care Team (Late st Contact Info) Description 03/02/2021 15:00 EDT Office Visit [facility] Cardiology Clinic [address] [place], [place] [address] Claire Lopez NP 130 [facility] [address]OB-A [address] [place] [address] Pacemaker (Primary Dx); 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 90 Tablet 3 03/02/2021 06/14/2021 documented in this encounter Progress Notes * Claire Lopez APRN - 03/02/2021 1500 EDT Cardiology Clinic Note 03/02/21 15:03 Presenting complaint: Pacemaker/Device Check (DLVR Therapeuticstronic) CHASITY Dacosta is a pleasant 75 yo [...] diaphoresis. Underwent exercise nuclear stress test at [facility] and was told that this was normal, although mentions he wasonly able to exercise for 2 to 3 minutes on the treadmill before experiencing symptoms. Given his ongoing symptoms it was recommended he go to the emergency department for further evaluation. There his work-up was generally benign, however we coordinated an outpatient cardiac catheterization to assess for flow-limiting coronary disease. This was obtained on November 22, 2020 and showed no flow-limiting disease, minor luminal irregularities of the LAD, left circumflex and RCA. Imdur was increased at that time with near resolution of symptoms, however today he and his expressed concern that this has resulted in increased dizziness. 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 They have not yet heard if he will be weaning off of this medication. 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 Attends Yarsanism Services: Not on file ??? Active Member [...] intact Peripheral neurology - no focal deficits [facility] Cardiology Device Visit Sheather: Medtronic Device Type: Pacemaker Service: Office Visit [...] 04/08/2012 TRIG 117 04/08/2012 CHOLHDL 5.0 04/08/2012 [facility] 11/2020 CORONARY ARTERIES: The coronary circulation [...] CAD Non flow limiting disease observed on [facility] 11/2020 involving the LAD, D1, LCx [...] statin. Lifestyle as above Claire Lopez NP [facility] Cardiology I spent a total of 30 [...] Office Visit [facility] [place] Hematology & Oncology - [address] [phone] Erin Barillas MD [address] [place] [address] 2 [place] [phone] 05/18/2024 10:00 EST Office Visit [facility] Rheumatology & Immunology [address] [phone] Tod Perez NP [address] [place] [address] 5 [place] [phone] 06/03/2024 9:00 EST Ancillary Procedure [facility]iology [facility] [address] [place] [address] [phone] 06/03/2024 9:00 EST Office Visit [facility] [address] [place] [address]302 Claire Lopez NP [address] [place] [address]A [address] [place] [phone] Scheduled Orders Name Type Priority Associated Diagnoses Order Schedule TRANSTHORACIC ECHO (TTE) COMPLETE Echocardiography Routine Pacemaker Expected: 03/02/2021 (Approximate), Expires: 03/02/2023 documented as of this encounter Visit Diagnoses Diagnosis Pacemaker- Primary Cardiac pacemaker in situ 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 11/09/2020 03/02/2021 documented as of this encounter Care Teams Cushion Filler Relationship Specialty Start Date End Date Layne Cai MD [address] [place] [address] PCP - General 04/05/20 12/16/23 Claire Lopez NP [address] [place] [address] [address] Cardiovascular Disease 11/22/20 Tod Perez NP 111 [facility] 5 [place] [phone] Rheumatology 12/28/20 documented as of this encounter
--- OUTSIDE RECORDS SUMMARY | 2024-01-09 01:49 | XMS_ITS | Encounter Summary ---
Author Organization [facility] Address [address] [place] [address] Care Team Providers Care Purchasing Administrator Name Role Phone Layne Cai MD Primary Care Provider [phone] Claire Lopez ALTERATIONS EXPERT Unavailable [phone] Tod Perez ALTERATIONS EXPERT Unavailable [phone] Vianey Bocanegra APRN Primary Care Provider [phone] Reason for Visit * Reason Onset Date Comments Medications Refill 05/13/2021 Encounter Details Date Type Department Care Team (Late st Contact Info) Description 05/13/2021 Refill [facility] Hematology & Oncology - [address] [phone] Erin Barillas MD 111 [facility] Level 2 [place] [phone] Medications Refill Social History Tobacco Use Types [...] mouth daily. 90 capsule 1 05/14/2021 11/08/2021 documented in this encounter Plan of Treatment Upcoming Encounters Date Type Department Care Team (Late st Contact Info) Description 04/09/2024 16:30 EDT Office Visit [facility] Hematology & Oncology - [address] [phone] Erin Barillas MD [address] [place] [address] 2 [place] [phone] 05/18/2024 10:00 EST Office Visit [facility] Rheumatology & Immunology - [address] [phone] Tod Perez NP [address] [place] [address] 5 [place] [phone] 06/03/2024 9:00 EST Ancillary Procedure [facility] Cardiology Clinic [address] [place] [address] 06/03/2024 9:00 EST Office Visit [facility] Cardiology Clinic [address] [place] [address] Claire Lopez NP [address] [place] [address] [address]OB[address] [place] [phone] documented as of this encounter Visit Diagnoses Not on filedocumented in this encounter Discontinued Medications Medication Sig Discontinue Reason Start Date End Da te hydroxyurea (HYDREA) 500 mg capsule TAKE ONE CAPSULE BY MOUTH EVERY DAY Reorder 02/12/2021 05/13/2021 documented as of this encounter Care Teams Purchasing Administrator Relationship Specialty Start Date End Date Layne Cai MD [address] [place] [address] PCP - General 04/05/20 12/16/23 Vianey Bocanegra APRN [address] [facility] [address] [place] [address] PCP - General 12/17/23 Claire Lopez NP [address] [place] [address] [address] [place] [phone] Cardiovascular Disease 11/22/20 Tod Perez, FESTUS [address] [place] [address], [facility] 5 [place] [address] Rheumatology 12/28/20 documented as of this encounter
--- OUTSIDE RECORDS SUMMARY | 2024-01-09 01:49 | XMS_ITS | Encounter Summary ---
Author Organization [facility] Address [address] [place] [address] Care Team Providers Care Make Up Operator Name Role Phone Layne Cai MD Primary Care Provider [phone] Claire Lopez COFFEE PLANTATION WORKER Unavailable [phone] Tod Perez COFFEE PLANTATION WORKER Unavailable [phone] Vianey Bocanegra APRN Primary Care Provider [phone] Reason for Visit * Reason Onset Date Comments Medications Refill 06/10/2021 Encounter Details Date Type Department Care Team (Late st Contact Info) Description 06/10/2021 Refill [facility] Rheumatology & Immunology - [facility] [address] [place], [place] [phone] Sudhir Rosales MD 910 [facility] [address] [address] Medications Refill Social History Tobacco Use Types [...] labs after 30 days 60 Tablet 2 06/11/2021 06/19/2021 documented in this encounter Miscellaneous Notes * Telephone Encounter - Bing Espinal RN - 06/13/2021 1059 EST Images from the original note were not included. Catalina Willard MD Rheumatology Nurse Pool 13 hours ago (21:06) Hi, No concerns with labs. His renal function is stable. CBC and LFTs look good. No evidence of medication toxicity. Darcy * Telephone Encounter - Bing Espinal RN - 06/11/2021 1250 EST Results received. * Telephone Encounter - Bing Espinal RN - 06/11/2021 1245 EST [facility] lab contacted. Results to be faxed to us. * Telephone Encounter - Bing Espinal RN - 06/11/2021 1211 EST ESE 04/03/21 PLAN: Start sulfasalazine 500mg (1 tab) orally daily x 7-14 days if tolerated increase to 1 tab am and 1 tab pm Check labs 1 month after starting, then every 3-4 months Last labs 03/23/21 * Telephone Encounter - Bing Espinal RN - 06/11/2021 1211 ESTFrom: Praneeth Villanueva To: Office of Sudhir Rosales MD Sent: 06/10/2021 9:41 EST Subject: Medication Renewal Request Refills have been requested for the following medications: sulfaSALAzine (AZULFIDINE) 500 mg tablet [Sudhir Rosales MD] Preferred pharmacy: [facility] [address] documented in this encounter Plan of Treatment Upcoming Encounters Date Type Department Care Team (Late st Contact Info) Description 04/09/2024 16:30 EDT Office Visit [facility] Hematology & Oncology - [address] [phone] Erin Barillas MD [address] [place] [address] 2 [place] [address] 05/18/2024 10:00 EST Office Visit [facility] Rheumatology & Immunology - [address] [phone] Tod Perez NP [address] [place] [address], [facility] 5 [place] [phone] 06/03/2024 9:00 EST Ancillary Procedure [facility] Cardiology [facility] [address] [place] [address] [phone] 06/03/2024 9:00 EST Office Visit [facility] Cardiology [facility] [address] [place] [address] [phone] Claire Lopez NP 130 [facility] 21 [place] [phone] documented as of this encounter Visit Diagnoses Not on filedocumented in this encounter Discontinued Medications Medication Sig Discontinue Reason Start Date End Da te sulfaSALAzine (AZULFIDINE) 500 mg tablet Take 1 tab daily for 7-14 days then increase to 1 tab in am and 1 tab in pm- check labs after 30 days Reorder 04/12/2021 06/10/2021 documented as of this encounter Care Teams Make Up Operator Relationship Specialty Start Date End Date Layne Cai MD [address] [place] [address] PCP - General 04/05/20 12/16/23 Vianey Bocanegra APRN 26 [facility] 185 [place] [address] PCP - General 12/17/23 Claire Lopez NP 130 [facility] [address] [address] Cardiovascular Disease 11/22/20 Tod Perez NP 111 [facility], [facility] 5 [place] [phone] Rheumatology 12/28/20 documented as of this encounter
--- OUTSIDE RECORDS SUMMARY | 2024-01-09 01:50 | XMS_ITS | Encounter Summary ---
Author Organization [facility] Address [address] [place] [address] Care Team Providers Care Legislative Director Name Role Phone Layne Cai MD Primary Care Provider [phone] Encounter Details Date Type Department Care Team (Late st Contact Info) Description 11/09/2020 Results Only [facility] - [place] [address] [place] [phone] Randy Null MD [address] [place] [phone] Social History Tobacco Use Types Packs/Day Years [...] visiting a doctor's office or shopping? No 06/01/2020 Cognitive Status Response Date of Assessm ent Because of a physical, menta l, or emotional condition, does this person have serious difficulty concentrating, remembering, or making decisions? No 11/24/2017 documented as of this encounter Plan of Treatment Upcoming Encounters Date Type Department Care Team (Late st Contact Info) Description 04/09/2024 16:30 EDT Office Visit [facility] Hematology & Oncology - [address] [phone] Erin Barillas MD [address] [place] [address] 2 [place] [phone] 05/18/2024 10:00 EST [facility] Visit [facility] Rheumatology & Immunology [address] [phone] Tod Perez NP [address] [place] [address] [address] [place] [phone] 06/03/2024 9:00 EST Ancillary Procedure [facility] [address] [place] [phone] 06/03/2024 9:00 EST Office Visit [facility] [address] [place] [address] [phone] Claire Lopez NP [address] [facility] [address] [place] [phone] documented as of this encounter Procedures Procedure Name Priority Date/Time Associated Diagnosis Comments D-DIMER Routine 11/09/2020 15:00 EDT [facility]OB[facility] Routine 11/09/2020 14:40 EDT COMPLETE BLOOD COUNT WITH DIFFERENTIAL (AUTO) Routine 11/09/2020 14:40 EDT TROPONIN I Routine 11/09/2020 14:40 EDT MAGNESIUM Routine 11/09/2020 14:40 EDT documented in this encounter Results * D-DIMER (11/09/2020 15:00 EDT) D-Dimer <150 <230 ng/mLDDU 11/09/2020 15:[address] [facility] Comment: CUTOFF VALUE FOR THE EXCLUSION OF DVT and PE: 230 ng/mL D-dimer units. Any use of the age-adjusted cutoff value is a post-analytic modification of this FDA-approved test and is considered off-label use of the test result. [facility] does not have literature to support the validity of an age-adjusted cutoff for our specific assay. 11/09/2020 15:0 0 EDT 11/09/2020 15:11 EDT Randy Null MD HEMATOLOGY & PF4 ORD ERABLES [facility] [address] [place] [address] * NT-PROBNP [facility] (11/09/2020 14:40 EDT) Pathologist [facility] NT-pro BNP 126 <300 pg/mL 11/09/2020 17:[address] [facility] Comment: NT-proBNP values less than 300 pg/ml have a 99% negative predictive value for excluding acute congestive heart failure. A diagnostic NT-proBNP cutoff of 900 pg/ml has been suggested in adults over 50 years of age in the absence of renal failure. A cutoff of 1200 pg/ml for patients with eGFR <60 yields a diagnostic sensitivity and specificity of 89% and 72% for acute congestive failure. (OCD Praneeth Perez, PhD, [employer] of NT-proBNP (ICON) Study The results of this assay can be falsely lowered due to the consumption of Biotin. 11/09/2020 14:4 0 EDT 11/09/2020 15:03 EDT Randy Null MD CHEMISTRY & BLOOD GA S ORDERABLES Performing Organization Address City/State/[facility] de Phone Number [facility] [address] [place] [address] * TROPONIN I (11/09/2020 14:40 EDT) [facility] Troponin I (ng/mL) <0.034 0.000 - 0.034 ng/mL 11/09/2020 15:[address] [facility] Comment: Interpretation comments: ??Cutoff for a positive troponin result is set at the 99th percentile of the upper reference limit. ??Elevated troponin must always be interpreted in the context of the clinical presentation. ?Serial troponin testing 3-6 hr from baseline is favored over relying on a single troponin level. ?? The results of this assay can be falsely lowered due to the consumption of Biotin. 11/09/2020 14:4 0 EDT 11/09/2020 15:03 EDT Randy Null MD CHEMISTRY & BLOOD GA S ORDERABLES Performing Organization Address [facility] Phone Number [facility] [address] [place] [address] * MAGNESIUM (11/09/2020 14:40 EDT) [facility] Magnesium 2.00 1.7 - 2.8 mg/dL 11/09/2020 15:[address] [facility] 11/09/2020 14:4 0 EDT 11/09/2020 15:03 EDT Randy Null MD CHEMISTRY & BLOOD GA S ORDERABLES Performing Organization Address [facility] de Phone Number [facility] [address] [place] [address] * (ABNORMAL) COMPLETE BLOOD COUNT WITH DIFFERENTIAL (AUTO) (11/09/2020 14:40 EDT) [facility] ABSOLUTE NEUTROPHIL COUN - [facility] 5.5 2.2 - 8.85 10e3/uL 11/09/2020 15:[address] [facility] BASO # - [facility] 0.07 0.01 - 0.11 10e/uL 11/09/2020 15:07 [facility] BASO % - [facility] 1 0 - 2 % 11/09/2020 15:07 [facility] EOS # - [facility] 0.16 0.03 - 0.61 10e3/ul 11/09/2020 15:07 [facility] EOS % - [facility] 2 0 - 5 % 11/09/2020 15:07 [facility] GRAN % - [facility] 72.6 40 - 80 % 11/09/2020 15:07 [facility] HEMATOCRIT - [facility] 43.5 39.5 - 50.2 % 11/09/2020 15:07 [facility] HEMOGLOBIN - [facility] 13.6(L) 13.8 - 17.3 g/dl 11/09/2020 15:07 [facility] IG# - [facility] 0.04 0 - 0.7 10e3/uL 11/09/2020 15:07 [facility] IG% - [facility] 0.5 0 - 0.9 % 11/09/2020 15:07 [facility] LYMPH # - [facility] 1.2 1.09 - 3.3 10e3/ul 11/09/2020 15:07 [facility] LYMPH% - [facility] 16.4(L) 20 - 40 % 11/09/2020 15:07 [facility] MEAN CORPUSCULAR HGB - [facility] 28.5 27.6 - 33.0 pg 11/09/2020 15:07 [facility] MEAN CORPUSCULAR HGB CONC - [facility] 31.3(L) 32.8 - 36.4 g/dL 11/09/2020 15:07 [facility] MEAN CELL VOLUME - [facility] 91.2 81 - 95 fl 11/09/2020 15:07 [facility] MONO # - [facility] 0.6 0.1 - 0.8 10e3/uL 11/09/2020 15:07 [facility] MONO% - [facility] 7.5 0 - 12 % 11/09/2020 15:[address] [facility] PLATELET COUNT 255 141 - 377 10e3/ul 11/09/2020 15:[address] [facility] RED BLOOD COUNT - [facility] 4.77 4.36 - 5.78 10e6/ul 11/09/2020 15:[address] [facility] RED CELL DISTRI WIDTH - [facility] 17.6 <14.2 % 11/09/2020 15:[address] [facility] WHITE BLOOD COUNT - [facility] 7.6 4.0 - 10.4 10e3/ul 11/09/2020 15:[address] [facility] 11/09/2020 14:4 0 EDT 11/09/2020 15:04 EDT Randy Null MD HEMATOLOGY & PF4 ORD ERABLES [facility] [address] [place] [address] documented in this encounter Visit Diagnoses Not on filedocumented in this encounter Care Teams Legislative Director Relationship Specialty Start Date End Date Layne Cai MD [address] [place] [phone] PCP - General 04/05/20 12/16/23 documented as of this encounter
--- OUTSIDE RECORDS SUMMARY | 2024-01-09 01:50 | XMS_ITS | Encounter Summary ---
Author Organization [facility] Address [address] [place] [address] Care Team Providers Care Internal Sales Engineer Name Role Phone Layne Cai MD Primary Care Provider [phone] Reason for Visit * Reason Onset Date Comments Results 09/05/2020 Encounter Details Date Type Department Care Team (Late st Contact Info) Description 09/05/2020 Telephone [facility] Hematology & Oncology - [facility] [address] [place], [place] [phone] Erin Barillas MD [address] [facility], Level [address] [place] [phone] Results Social History Tobacco Use [...] * Telephone Encounter - Augustina Salazar - 09/05/2020 1517 EDT LABS ENTERED FROM [facility]. Augustina Salazar 09/05/2020 15:17 documented in this encounter Plan of Treatment Upcoming Encounters Date Type Department Care Team (Late st Contact Info) Description 04/09/2024 16:30 EDT Office Visit [facility] Hematology & Oncology - [address] [phone] Erin Barillas MD [address] [place] [address] [address] [place] [phone] 05/18/2024 10:00 EST Office Visit [facility] Rheumatology & Immunology [address] [phone] Tod Perez NP [address] [place] [address], [facility] [address] [place] [phone] 06/03/2024 9:00 EST Ancillary Procedure [facility] [address] [place] [phone] 06/03/2024 9:00 EST Office Visit [facility] [address] [place] [address] [phone] Claire Lopez NP [address] [place] [address] [address] [place] [phone] documented as of this encounter Procedures Procedure Name Priority Date/Time Associated Diagnosis Comments COMPREHENSIVE METABOLIC PANEL (ONCOLOGY USE ONLY-INC MG) Routine 09/05/2020 COMPLETE BLOOD COUNT AND DIFFERENTIAL Routine 09/05/2020 documented in this encounter Results * (ABNORMAL) COMPREHENSIVE METABOLIC PANEL (ONCOLOGY USE ONLY-INC MG) (09/05/2020) Calcium, External 9.2 [facility] CO2, External 30.0 [facility] AST, External 22 [facility] ALT, External 30 [facility] Bilirubin, Total, External 0.6 [facility] Creatinine, External 1.1 [facility] Calculated Calcium, External [facility] Anion Gap, External [facility] Total Protein, External 7.1 [facility] Potassium, External 4.7 [facility] Total Alkaline Phosphatase, External 83 [facility] Albumin, External 4.1 [facility] BUN, External 22(A) 7 - 18 [facility] GFR, Calculated, External 60 [facility] Fasting?, External [facility] Chloride, External 102 [facility] Glucose, Serum, External 119(A) 74 - 106 [facility] Sodium, External 140 [facility] Magnesium, External [facility] Blood VENOUS BLOOD / Unknown 09/05/2020 Historical Provider MD CHEMISTRY & BLOOD GAS ORDERABLES [facility] * (ABNORMAL) COMPLETE BLOOD COUNT AND DIFFERENTIAL (09/05/2020) WBC, External 5.98 [facility] RBC, External 4.81 [facility] Hemoglobin, External 14.6 [facility] HCT, External 46.6 [facility] MCV, External 96.9(A) 80 - 95 [facility] MCH, External 30.4 [facility] MCHC, External 31.3(A) 32.0 - 36.0 [facility] PLT, External 252 [facility] RDW-CV, External 18.2(A) 11.8 - 14.1 [facility] Neutrophils, External 70.5 [facility] Lymphocytes, External 18.6 [facility] Monocytes, External 6.5 [facility] Eosinophils, External 3.2 [facility] Basophils, External 0.7 [facility] ABS Neutrophils, External 4.22 [facility] ABS Lymphs, External 1.11(A) 1.2 - 3.4 [facility] ABS Monocytes, External 0.39 [facility] ABS Eosinophils, External 0.19 [facility] ABS Basophils, External 0.04 [facility] Blood VENOUS BLOOD / Unknown 09/05/2020 Historical Provider MD PACKAGES & DNA [place] OBE ORDERABLES [facility] documented in this encounter Visit Diagnoses Not on filedocumented in this encounter Care Teams Internal Sales Engineer Relationship Specialty Start Date End Date Layne Cai MD [address] [place] [phone] PCP - General 04/05/20 12/16/23 documented as of this encounter
--- OUTSIDE RECORDS SUMMARY | 2024-01-09 01:50 | XMS_ITS | Encounter Summary ---
Author Organization [facility] Address [address] [place] [address] Care Team Providers Care Key Ringer Name Role Phone Layne Cai MD Primary Care Provider [phone] Reason for Visit * Reason Onset Date Comments Medications Refill 11/12/2020 Encounter Details Date Type Department Care Team (Late st Contact Info) Description 11/12/2020 Refill [facility] Hematology & Oncology - [facility] [address] [place] [address] Erin Barillas MD [address] [facility], Level [address] [place] [phone] Medications Refill Social History Tobacco Use Types [...] End Da te hydroxyurea (HYDREA) 500 mg capsuleIndications:polycyt hemia vera Take 1 Cap by mouth daily for 90 days. 90 Cap 11/14/2020 02/12/2021 documented in this encounter Miscellaneous Notes * Telephone Encounter - Thalia Linda RN - 11/14/2020 0900 EDTFrom: Praneeth Villanueva To: Office of Erin Barillas MD Sent: 11/12/2020 9:15 EDT Subject: Medication Renewal Request Refills have been requested for the following medications: hydroxyurea (HYDREA) 500 mg capsule [Erin Barillas MD] Preferred pharmacy: [id number] documented in this encounter Plan of Treatment Upcoming Encounters Date Type Department Care Team (Late st Contact Info) Description 04/09/2024 16:30 EDT Office Visit [facility] Hematology & Oncology - [address] [phone] Erin Barillas MD [address] [place] [address], [facility] [address] [place] [phone] 05/18/2024 10:00 EST Office Visit [facility] Rheumatology & Immunology - [address] [phone] Tod Perez NP [address] [place] [address], [facility] [address] [place] [phone] 06/03/2024 9:00 EST Ancillary Procedure [facility] [address] [place], [place] [phone] 06/03/2024 9:00 EST Office Visit [facility] [address] [place], [place] [phone] Claire Lopez NP 130 [facility] [address] [place] [phone] documented as of this encounter Visit Diagnoses Not on filedocumented in this encounter Discontinued Medications Medication Sig Discontinue Reason Start Date End Da te hydroxyurea (HYDREA) 500 mg capsuleIndications:polycy themia vera Take 1 Cap by mouth daily for 90 days. Reorder 08/14/2020 11/12/2020 documented as of this encounter Care Teams Key Ringer Relationship Specialty Start Date End Date Layne Cai MD [address] [place] [phone] PCP - General 04/05/20 12/16/23 documented as of this encounter
--- OUTSIDE RECORDS SUMMARY | 2024-01-09 01:50 | XMS_ITS | Encounter Summary ---
Author Organization [facility] Address [address] [place] [address] Care Team Providers Care Seed Cleaning Machine Operator Name Role Phone Layne Cai MD Primary Care Provider [phone] Claire Lopez ANIMAL CYTOLOGIST Unavailable [phone] Tod Perez ANIMAL CYTOLOGIST Unavailable Reason for Visit * Reason Comments Follow-up Medication Management wants to discuss m ethotrexate and if it could be contributing to his SOB Shortness of Breath SOB since august 2020 , had extensive cards workup with no clear etiology Encounter Details Date Type Department Care Team (Late st Contact Info) Description 12/28/2020 10:30 EDT Office Visit [facility] Rheumatology & Immunology - [facility] [address] [place], [place] [phone] Tod Perez NP 111 [facility], [address] 5 [place] [address] History of seronegative inflammatory arthritis (Primary Dx); Encounter for long-term (current) use of medications; SOB (shortness of breath); Hx of smoking Social History Tobacco Use Types Packs/Day Years [...] Patient Instructions * Patient Instructions* Tod Perez APRN - 12/28/2020 10:30 EDT 1. Pt sent to ED - for covid screening which was neg 2. Referred to Pulmonary- ext- pt would like to see [facility]. Chest xray Neg for infection, but it did show Chest xray did show Hyperinflation, interstitial prominence, and trace basilar airspace disease. Discussed this could be smoking and/or ILD related. 3. Inflammatory arthritis doing well continue methotrexate 10 tabs orally once weekly. Cr 1.02 doing well. 4. Labs every 3-4 months 5. F/u 04/03/21 at 11am. If this time does not work for you please call the clinic. documented in this encounter Progress Notes * Tod Perez APRN - 12/28/2020 1030 EDT Images from the original note were not included. Patient ID: Deon Villanueva is a 75 y.o. y.o. male Subjective: Chief Complaint: Follow-up, Medication Management (wants to discuss methotrexate and if it could becontributing to his SOB), and Shortness of Breath (SOB since august 2020, had extensive cards workupwith no clear etiology ) HPI: ?? Pertinent [...] ??? Labs Only ? SUBJECTIVE: Mr. Deon iVllanueva is a 73 y.o. male with history [...] to improvement of symptoms - Travelled to [place] including [facility]. Able to ambulate without difficulty. - AM [...] early 2019 with bilateral hand swelling. Was ester 5th mneg in [place] at that time. new dx around 04/2019 of polycythemia: elevated RBC and hemoglobin Had repeat labs at [facility] 05/2019 PCP was suppose to set up NPV with hematology at [facility] - they have not heard from PCP [...] in cold X moderna #1 and #2 11/22/20 cardiac cath was completed which was neg SOB since September 2020, was not able to do his spring walking, typically can do up to 10 miles, usually goes to [place] and walks daily in the winter, was not able to do that 2/ covid panemic this year. 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 He was not SOB while shoveling. Friday- cough, sore throat, headache, fever 100.1 Was not able to get out of bed, was able to get out of bed tues, still has cough, nasal congestion, using saline [...] had 2 grand children at the house [facility], children were not sick. Denies any other [...] range of motionpresent. Ankle/Foot: In compression stockings, some OA, with [...] 135 05/10/2014 ?? C4 27 05/10/2014 ?? [facility]: 11/18/18: CBC with differential: CBC [...] Status: Final result ?Visible to patient: Yes (TUNJI Online) Next appt: 05/25/2018 at 11:40 in Rheumatology (Sudhir Rosales MD) Order: [id number] ? 1yr ago ?? Pathology Report: SURGICAL PATHOLOGY REPORT Reports generated via electronic interface contain original data; however they are lacking the format of the original report. Caution should be taken when reading/interpreting unformatted reports. Name: ? DEON VILLANUEVA ? Accession #: ? [id number] ? : ? 1945 (Age: 71) ??M ?Collect Date: ? 10/23/2016 ? Location: ? [facility] ? Receive Date: ? 10/24/2016 ? Provider: SHREYA LEA MD Copy to: MINDY SZYMANSKI [facility] ? Final Pathologic Diagnosis: A. [...] Status: Final result ?Visible to patient: Yes ([email or web address]) Next appt: 05/25/2018 at 11:40 in Rheumatology (Sudhir Rosales MD) Order: [id number] ? 1yr ago ?? Pathology Report: SURGICAL PATHOLOGY REPORT Reports generated via electronic interface contain original data; however they are lacking the format of the original report. Caution should be taken when reading/interpreting unformatted reports. Name: ? ROBEL DEON Jean-Paul ? Accession #: ? [id number] ? : ? 1945 (Age: 71) ??M ?Collect Date: ? 10/23/2016 ? Location: ? [facility] ? Receive Date: ? 10/24/2016 ? Provider: SHREYA LEA MD Copy to: MINDY SZYMANSKI [facility] ? Final Pathologic Diagnosis: A. [...] 7:55 AM ?XR CHEST 2 VIEWS (Order [id number]) Status: Final result (Exam End: 05/19/2020 16:15) Results XR CHEST 2 VIEWS ( (Order [id number]) XR CHEST 2 VIEWS Order: [id number] Status: Final result ?Visible to patient: Yes (MyChart) Next appt: None Details Reading Physician Reading Date Result Priority Dustin Ibrahim MD [phone] 05/19/2020 Narrative & Impression EXAM: RADIOLOGY/CHEST PA [...] Ibrahim MD XR CHEST 2 VIEWS (Order [id number]) Status: Final result (Exam End: 11/09/2020 16:33) Results XR CHEST 2 VIEWS ( (Order [id number]) XR CHEST 2 VIEWS Order: [id number] Status: Final result ?Visible to patient: Yes (seen) Next appt: 01/22/2021 at 10:45 in Cardiology (Claire Lopez, PROFESSOR OF LANGUAGES) 0 Result Notes Details Reading Physician Reading Date Result Priority Gerald Garcia MD [phone] 11/09/2020 Narrative & Impression EXAM: RADIOLOGY/CHEST PA [...] VENDOR SYSTEM 11/09/2020 Reported By: Gerald Garcia [email or web address] Summary Functional Status: 1.7 Pain Tolerance: 0 - No Pain Global Estimate: 2.5 Score: 4.2 Interpretation: Low ASSESSMENT: 1.Inflammator arthritis doing well on MTX 10 tabs MTX pen was too expencive. Cr 1.04 GFR 69 12/28/2020 inflammatory arthritis doing well on MTX 10 tabs, no flares URI started Friday, with cough, sinus congestion, fever 100.1, fever blisters orally which pt states he has had in the past with fevers. He was not able to get out of bed on Friday and Friday and wasfeeling better Friday. He still has cough, nasal congestion, using saline mist and tried lanre seltzer x 1 without improvement. No loss of state or smell. I do not see any oral blisters on PE, he still has cough in office, and maxillary sinus tenderness on palpation bilaterally. He was at an event on December 17 and was talking to a person who was coughing, had 2 grand children at the [place], children were not sick. Denies any other sick contacts orpeople who were coughing, Curbside consult with Dr. Philly Gee- pt sent to ER for covid 19 screening and was neg. Dx for URI, with chest xray neg for pneumonia or acute interstitial syndrome. Pt has been having new onset SOB since September 2020, was not able to do his spring walking, typicallycan do up to 10 miles, usually goes to [place] and walks daily in the winter, was not able to do that 2/ covid panemic this year. He was much [...] per their request. They states driving to [place] gets very tiring. Chest xray did show [...] Pulmonary- ext- pt would like to see [facility]. Chest xray Neg for infection, but it did show Chest xray did show Hyperinflation, interstitial prominence, and trace basilar airspace disease. Discussed this could be smoking and/or ILD related. 3. Inflammatory arthritis doing well continue methotrexate 10 tabs orally once weekly. Cr 1.02 doing well. 4. Labs every 3-4 months 5. F/u [...] 50 minutes on the date of this encountermeeting with the patient and reviewing documentation/coordinating care as described in the above note. No procedures were performed at the time of the visit. documented in this encounter Plan of Treatment Upcoming Encounters Date Type Department Care Team (Late st Contact Info) Description 04/09/2024 16:30 EDT Office Visit [facility] Hematology & Oncology - [address] [phone] Erin Barillas MD [address] [place] [address] 2 [place] [address] 05/18/2024 10:00 EST Office Visit [facility] Rheumatology & Immunology - [address] [phone] Tod Perez NP [address] [place] [address] 5 [place] [phone] 06/03/2024 9:00 EST Ancillary Procedure [facility] Cardiology Clinic [address] [place] [address] 06/03/2024 9:00 EST Office Visit [facility] Cardiology Clinic [address] [place] [address] Claire Lopez NP [address] [place] [address] [address] [place] [phone] documented as of this encounter Visit Diagnoses Diagnosis History of seronegative inflammatory arthritis- Primary Encounter for long-term (current) use of medications Encounter for long-term (current) use of other medications SOB (shortness of breath) Shortness of breath Hx of smoking Personal history of tobacco use, presenting hazards to health documented in this encounter Additional Health Concerns Infection Onset Date Last Indicated Resolved Time R/O COVID-19 12/28/2020 12/28/2020 01/02/2021 22:1 5 EDT documented as of this encounter Care Teams Seed Cleaning Machine Operator Relationship Specialty Start Date End Date Layne Cai MD [address] [place] [phone] PCP - General 04/05/20 12/16/23 Claire Lopez NP [address] [place] [address] [address] [place] [phone] Cardiovascular Disease 11/22/20 Tod Perez NP 111 [facility], [facility] 5 [place] [phone] Rheumatology 12/28/20 documented as of this encounter
--- OUTSIDE RECORDS SUMMARY | 2024-01-09 01:50 | XMS_ITS | Encounter Summary ---
Author Organization [facility] Address [address] [place] [address] Care Team Providers Care Jewelry Casting Model Maker Apprentice Name Role Phone Layne Cai MD Primary Care Provider [phone] Claire Lopez NP Unavailable [phone] Reason for Visit * Reason Comments Follow-up Encounter Details Date Type Department Care Team (Late st Contact Info) Description 12/15/2020 14:00 EDT Office Visit [facility] Hematology & Oncology - [facility] [address] [place], [place] [phone] Erin Barillas MD 111 [facility], Level 2 [place] [address] Polycythemia vera (HCC-CMS) (Primary Dx) Social History Tobacco Use [...] 13:17 EST Sexual Orientation Not on file COVID-19 Exposure Response Date Recorded In the last month, have you been in contact with someone who was confirmed or suspected to have Coronavirus / COVID-19? No / Unsure 11/22/2020 9:32 EDT documented as of this encounter Last Filed [...] Progress Notes * Erin Barillas MD - 12/15/2020 1400 EDT [...] States that he spent the winter in [place] and noted that his fingers would turn [...] below. Social history: Retired. Worked for the [employer]. 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 Attends Taoist Services: ??? Active Member of Clubs or [...] (Tympanic) Resp 16 Ht 181.8 cm (71.58) Wt (!) 103.5 kg (228 lb 3.2 oz) SpO2 [...] [facility] [place] Hematology & Oncology - [address] [phone] Erin Barillas MD [address] [place] [address], [facility] 2 [place] [phone] 05/18/2024 10:00 EST Office Visit [facility] Rheumatology & Immunology [address] [phone] Tod Perez NP [address] [place] [address], [facility] 5 [place] [phone] 06/03/2024 9:00 EST Ancillary Procedure [facility] Cardiology Clinic [address] [place] [address] 06/03/2024 9:00 EST Office Visit [facility] Cardiology Clinic [address] [place] [phone] Claire Lopez NP [address] [place] [address]A [address] [place] [address] documented as of this encounter Visit Diagnoses Diagnosis Polycythemia vera (HCC-CMS)- Primary documented in this encounter Discontinued Medications Medication Sig Discontinue Reason Start Date End Da te ibuprofen (MOTRIN) 200 mg tablet Take 200 mg by mouth every 6 hours as needed for Pain. 12/15/2020 documented as of this encounter Care Teams Jewelry Casting Model Maker Apprentice Relationship Specialty Start Date End Date Layne Cai MD [address] [place] [phone] PCP - General 04/05/20 12/16/23 Claire Lopez NP [address] [place] [address] 2[address] [place] [phone] Cardiovascular Disease 11/22/20 documented as of this encounter
--- OUTSIDE RECORDS SUMMARY | 2024-01-09 01:50 | XMS_ITS | Encounter Summary ---
Author Organization [facility] Address [address] [place] [address] Care Team Providers Care Ventilation Equipment Tender Name Role Phone Layne Cai MD Primary Care Provider [phone] Reason for Visit * Reason Onset Date Comments COVID-19 11/15/2020 testing Returning Call 11/15/2020 Encounter Details Date Type Department Care Team (Late st Contact Info) Description 11/15/[address] [facility] - [place] [address] [place] [address] Reid Brown MD 111 [facility] 1 [place] [phone] COVID-19 (testing); Returning Call Social History Tobacco Use Types [...] encounter Miscellaneous Notes * Telephone Encounter - Cheyenne Pringle - 11/15/2020 1407 EDT We no longer do Covid testing here. Please call your patient and give them instructions and lab hours per the new algorythm. * Telephone Encounter - Nikole Guan - 11/15/2020 1320 EDT Per Augustina, , patient would like to have testing done on 6.6 Friday for 6.9 Friday procedure in [place]. Please call to schedule. * Telephone Encounter - Concepcion Woods - 11/15/2020 1305 EDT Called patient to schedule COVID-19 testing. Requested a call back [phone]. This is our firstattempt at contacting patient. documented in this encounter Plan of Treatment Upcoming Encounters Date Type Department Care Team (Late st Contact Info) Description 04/09/2024 16:30 EDT Office Visit [facility] Hematology & Oncology - [address] [phone] Erin Barillas MD [address] [place] [address], Level [address] [place] [phone] 05/18/2024 10:00 EST Office Visit [facility] Rheumatology & Immunology - [address] [address] Tod Perez NP 111 [facility], Level 5 [place] [address] 06/03/2024 9:00 EST Ancillary Procedure [facility] Cardiology Clinic [address] [place] [address] 06/03/2024 9:00 EST Office Visit [facility] Cardiology Clinic [address] [place] [address] Claire Lopez NP 130 [facility] [address] [place] [address] documented as of this encounter Visit Diagnoses Not on filedocumented in this encounter Care Teams Ventilation Equipment Tender Relationship Specialty Start Date End Date Layne Cai MD [address] [place] [address] PCP - General 04/05/20 12/16/23 documented as of this encounter
--- OUTSIDE RECORDS SUMMARY | 2024-01-09 01:50 | XMS_ITS | Encounter Summary ---
Author Organization [facility] Address [address] [place] [address] Care Team Providers Care Environmental Aid Name Role Phone Layne Cai MD Primary Care Provider [phone] Reason for Referral * Prior Authorization (3 - 10 Business Days) - Closed Specialty Diagnoses / Procedures Referred By Contac t Referred To Contact Infusion Therapy Diagnoses Polycythemia vera ([facility]) Procedures TX PHLEBOTOMY Reshma Hilario, ASH PIT WORKER 111 [facility] 2 [place] [address] [facility] [address] [place] [address] Referral ID Status Reason Start Date Expiration Date V isits Requested Visits Authorized [id number] Closed Specialty Services Required 09/07/2020 06/15/2032 1 1 Question Answer Is this appt for transfusion, medication, test or injection? Procedure Type of procedure? Therapeutic phlebotomy Have orders been place for this appt? (i.e.: Blood Transfusion Order Set, Therapy Plan, Lab Orders, Supportive Plan, Etc) No Reason for Visit * Prior Authorization (3 - 10 Business Days) - Closed Specialty Diagnoses / Procedures Referred By Marissa t Referred To Contact Infusion Therapy Diagnoses Polycythemia vera ([facility]) Procedures [place] PHLEBOTOMY Reshma Hilario, ASH PIT WORKER 111 [facility] 2 [place] [address] [facility] [address] [place] [address] Referral ID Status Reason Start Date Expiration Date V isits Requested Visits Authorized [id number] Closed Specialty Services Required 09/07/2020 06/15/2032 1 1 Encounter Details Date Type Department Care Team (Latest Contact Info) Description 09/15/2020 15:37 EDT - 09/15/2020 23:59 EDT Hospital Encounter [facility]fusion [facility] [address] [place] [address] Polycythemia vera ([facility]) Discharge Disposition: Home or Self Care [...] Take 1 Capsule by mouth daily. 04/28/2019 finasteride (PROSCAR) 5 mg tablet Take 5 mg by mouth daily. 10/24/2022 folic acid (FOLVITE) 1 mg tabletIndications:Inflamm ation around joint,Encounter for long-term (current) use of medications Take 1 Tab by mouth daily. 90 Tab 3 09/23/2019 2020 hydroxyurea (HYDREA) 500 mg capsuleIndications:polycy themia vera Take 1 Cap by mouth daily for 90 days. 90 Cap 08/14/2020 11/12/2020 ibuprofen (MOTRIN) 200 mg tablet Take 200 mg by mouth every 6 hours as needed for Pain. 12/15/2020 methotrexate 2.5 mg tabletIndications:Inflamm ation around joint,Encounter for long-term (current) use of medications Take 10 Tabs by mouth once a week. 120 Tab 3 08/14/2020 11/12/2020 simvastatin (ZOCOR) 40 mg tablet Take 40 mg by mouth every evening. 11/09/2020 documented as of this encounter Discharge Disposition Disposition Code Departure Means Destination Home or Self Care documented in this encounter Progress Notes * Robi Dunlap, RN - 09/15/2020 1600 EDT Patient Praneeth Villanueva admitted to [facility] for therapeutic phlebotomy related to d45. Patient [...] 16:30 EDT Office Visit [facility] Hematology & Oncology - [address] [phone] Erin Barillas MD [address] [place] [address], [facility] 2 [place] [phone] 05/18/2024 10:00 EST Office Visit [facility] Rheumatology & Immunology - [address] [phone] Tod Perez NP [address] [place] [address], [facility] 5 [place] [phone] 06/03/2024 9:00 EST Ancillary Procedure [facility] Cardiology Clinic [address] [place] [phone] 06/03/2024 9:00 EST Office Visit [facility] Cardiology Clinic [address] [place] [phone] Claire Lopez NP [address] [place] [address] [address] [phone] Scheduled Referrals Name Type Priority Associated Diagnoses Order Schedule AMB CONS/FOLLOW UP INFUSION Outpatient Referral Routine Polycythemia vera (HCC-CMS) 1 Occurrences starting 09/15/2020 until 09/15/2020 documented as of this encounter Visit Diagnoses Diagnosis Polycythemia vera (HCC-CMS) documented in this encounter Care Teams Environmental Aid Relationship Specialty Start Date End Date Layne Cai MD [address] [place] [phone] PCP - General 04/05/20 12/16/23 documented as of this encounter
--- OUTSIDE RECORDS SUMMARY | 2024-01-09 01:50 | XMS_ITS | Encounter Summary ---
Author Organization [facility] Address [address] [place] [address] Care Team Providers Care Software Support Technician Name Role Phone Layne Cai MD Primary Care Provider [phone] Claire Lopez SOCIAL SERVICES ASSISTANT Unavailable [phone] Tod Perez SOCIAL SERVICES ASSISTANT Unavailable Encounter Details Date Type Department Care Team (Late st Contact Info) Description 12/28/2020 11:48 EDT - 12/28/2020 14:12 EDT Emergency [facility] Emergency Department - [place] [address] [place] [address] Margaret Villavicencio MD [address] [place] [address] [address] [place] [address] Acute viral syndrome (Primary Dx) Discharge Disposition: Home or Self Care Social [...] No 11/24/2017 documented as of this encounter Discharge Instructions * Discharge Instructions* Margaret Villavicencio MD - 12/28/2020 14:00 EDT Thank you for trusting me with your [...] at ANY time for any reason, particularly forany new or concerning symptoms. I hope you [...] Tab by mouth daily. 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 90 Cap 11/14/2020 02/12/2021 isosorbide MONOnitrate (IMDUR) 60 mg CR tablet Take 1 Tab by mouth daily. 90 Tab 3 11/09/2020 03/02/2021 methotrexate 2.5 mg tabletIndications:Inflamm ation around joint,Encounter for long-term (current) use of medications Take 10 Tabs by mouth once a week. 120 Tab 1 11/16/2020 04/03/2021 documented as of this encounter Discharge Disposition Disposition Code Departure Means Destination Home or Self Assisted documented in this encounter ED Notes * Margaret Villavicencio MD - 12/28/2020 1258 EDT EMERGENCY DEPARTMENT ATTENDING NOTE Scribe Attestation: This documentation is recorded by Lawanda Carrera acting as Scribe under the direction and presence of Margaret Villavicencio*. Margaret Villavicencio*: I personally performed the services recorded by the scribe in my presence. I confirm the scribe's documentation has been reviewed by me to accurately and completely record my work, treatment, procedures, and medical decision making. CHIEF COMPLAINT Fever, nasal congestion MEDICAL DECISION MAKING: This patient received an evaluation and medical screening exam for emergent medical conditions at the [facility] on 12/28/2020 I reviewed past medical history, I reviewed relevant prior medical records. I reviewed all labs, EKGs, and imaging studies, pertinent results are discussed below. More detailed results are found at the bottom of this note. Symptoms and exam most consistent with acute viral upper respiratory infection with mild sore throat, nasal congestion and a mild headache. He has no throat erythema, no exudate, no swelling therefore I think bacterial pharyngitis is unlikely.He has an unchanged chronic cough, clear lungs bilaterally on exam, no worsening of chronic shortness of breath and [id number]-[id number] lung ultrasound very reassuring with no evidence of an acute interstitial syndrome, consolidation or viral process. 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 Considered tickborne illness though no known [...] for several years that is also unchanged. [place] with his PCPs office over the phone about the symptoms and they were concerned about possibleCovid though he has been fully vaccinated and referred him to the emergency department. Patient reports mild gradual onset headache as well but no neck stiffness. He denies chest pain. Denies leg swel ling. Denies rash. Denies any known tick bites. Denies known sick contacts. Denies nausea, vomitingor diarrhea. No abdominal pain. He has been [...] Concern ??? 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 Attends [employer] Services: ??? Active Member of Clubs or Organizations: ??? Attends Club or Organization Meetings: ??? Marital Status: PHYSICAL EXAM Gen: well appearing, afebrile Eyes: conjunctiva without injection HENT: atraumatic, no nasal discharge, mucous membranes moist, oropharynx clear with no erythema, noexudates, no cervical lymphadenopathy Neck: supple, no stridor [...] Ab Negative Final COVID-19 TESTING COVID-19 TEST [facility] PCR HOLD BLUE TOP Hold Hold Final HOLD GREEN TOP Hold Hold Final HOLD LAVENDER TOP Hold Hold Final HOLD SST Hold Hold Final HOLD GREEN TOP Hold Hold Final EXTRA BLOOD DRAW (RAINBOW) Narrative: The following orders were created for panel order EXTRA BLOOD DRAW (RAINBOW). Procedure Abnormality Status --------- ------ HOLD BLUE TOP[[id number]] Final result HOLD GREEN TOP[[id number]] Final result HOLD LAVENDER TOP[[id number]] Final result HOLD RED TOP[[id number]] HOLD SST[[id number]] Final result Please view results for these tests on the individual orders. HOLD RED TOP IMAGING: I performed a limited ED POCUS applications: Thoracic [id number] ultrasound. Please see my narrative and impression recorded in imaging results. I performed, reviewed, and independently interpreted the images. Images saved in [employer] and PACS. Procedures documented in this encounter Plan of Treatment Upcoming Encounters Date Type Department Care Team (Late st Contact Info) Description 04/09/2024 16:30 EDT Office Visit [facility] Hematology & Oncology - [address] [address] Erin Barillas MD 111 [facility] 2 [place] [address] 05/18/2024 10:00 EST Office Visit [facility] Rheumatology & Immunology - [address] [address] Tod Perez NP 111 [facility] 5 [place] [address] 06/03/2024 9:00 EST Ancillary Procedure [facility] [address] [facility], [place] [address] 06/03/2024 9:00 EST Office Visit [facility] Cardiology Clinic [address] [facility], [place] [address] JessicaClaire, FESTUS [address] [facility] [address] [address] [place] [address] documented as of this encounter Procedures Procedure Name Priority Date/Time Associated Diagnosis Comments POCT US ED THORACIC 12/28/2020 1 3:06 EDT ZZCOVID-19 TEST [facility] PCR Today 12/28/2020 12:58 EDT COVID-19 TESTING Routine 12/28/2020 12:5 8 EDT HOLD GREEN TOP Routine 12/28/2020 12:57 EDT HOLD SST Routine 12/28/2020 12:39 EDT HOLD LAVENDER TOP Routine 12/28/2020 12: 39 EDT HOLD GREEN TOP Routine 12/28/2020 12:39 EDT HOLD BLUE TOP Routine 12/28/2020 12:39 EDT LYME AB Add-On 12/28/2020 12:39 EDT EXTRA BLOOD DRAW (RAINBOW) Routine 12/28/2020 12:39 EDT COMPLETE BLOOD COUNT AND DIFFERENTIAL STAT Add-on 12/28/2020 12:39 EDT COMPREHENSIVE METABOLIC PANEL (CMP) STAT Add-on 12/28/2020 12:39 EDT documented in this encounter Results * POCT US ED THORACIC (12/28/2020 13:06 EDT) Anatomical Region Laterality Modality Other 12/28/2020 13:0 6 EDT Narrative 02/21/2021 20:35 EDT Addendum: Authorized by Margaret Villavicencio on 2021-02-21 20:35 Study Date and Time: 2020-12-28 13:06 Study Author: Margaret Villavicencio ED Thoracic/Lung: Indication(s) for exam: ?Select all that apply: Dyspnea ?Other: N/A Views obtained: ?Right Thorax: RT Anterior / Superior Thorax, RT Lateral/Distal Thorax, RT Posterior/PLAPS ?Left Thorax: LT Anterior / Superior Thorax, LT Lateral / Distal Thorax, LT Posterior/PLAPS ?Cardiac Views: N/A ?Other: N/A Findings (Right Thorax): ?RT Lung Sliding: Present ?RT Lung Point Sign: Absent ?If positive, estimated size of pneumothorax: N/A ?Right Pleural Findings: Normal ?Other right pleural findings: N/A ?RT Interstitium: A-Lines: Present ?RT Interstitium: B-Lines (>3 per view): Absent ?RT Pleural Effusion: Absent ?If RT Pleural Effusion present: N/A ?RT Lung Consolidation: Absent ?RT Air Bronchograms: N/A ?Other Right Thoracic Findings: N/A Findings (Left Thorax): ?LT Lung Sliding: Present ?LT Lung Point Sign: Absent ?If positive, estimated size of pneumothorax: N/A ?Left Pleural Findings: Normal ?Other left pleural findings: N/A ?LT Interstitium: A-Lines: Present ?LT Interstitium: B-Lines (>3 per view): Absent ?LT Pleural Effusion: Absent ?If LT Pleural Effusion present: N/A ?LT Lung Consolidation: Absent ?LT Air Bronchograms: N/A ?Other Left Thoracic Findings: N/A Findings - Cardiac/IVC: ?Cardiac Findings: N/A ?Other Cardiac: N/A ?IVC Findings: N/A Interpretation: ?Select all that apply: No sonographic evidence of acute pulmonary disease ?Other: N/A Confirmatory Study: ?What confirmatory study was performed during ED patient evaluation?: No additional imaging ordered ?Confirmatory Study Findings/Comments:: N/A Signed by Margaret Villavicencio on 2021-02-21 20:35 Procedure Note Margaret Villavicencio MD - 02/21/2021 Addendum: Authorized by Margaret Villavicencio on 2021-02-21 20:35 Study Date and Time: 2020-12-28 13:06 Study Author: Margaret Villavicencio ED Thoracic/Lung: Indication(s) for exam: Select all that apply: Dyspnea Other: N/A Views obtained: Right Thorax: RT Anterior / Superior Thorax, RT Lateral/Distal Thorax,RT Posterior/PLAPS Left Thorax: LT Anterior / Superior Thorax, LT Lateral / DistalThorax, LT Posterior/PLAPS Cardiac Views: N/A Other: N/A Findings (Right Thorax): RT Lung Sliding: Present RT Lung Point Sign: Absent If positive, estimated size of pneumothorax: N/A Right Pleural Findings: Normal Other right pleural findings: N/A RT Interstitium: A-Lines: Present RT Interstitium: B-Lines (>3 per view): Absent RT Pleural Effusion: Absent If RT Pleural Effusion present: N/A RT Lung Consolidation: Absent RT Air Bronchograms: N/A Other Right Thoracic Findings: N/A Findings (Left Thorax): LT Lung Sliding: Present LT Lung Point Sign: Absent If positive, estimated size of pneumothorax: N/A Left Pleural Findings: Normal Other left pleural findings: N/A LT Interstitium: A-Lines: Present LT Interstitium: B-Lines (>3 per view): Absent LT Pleural Effusion: Absent If LT Pleural Effusion present: N/A LT Lung Consolidation: Absent LT Air Bronchograms: N/A Other Left Thoracic Findings: N/A Findings - Cardiac/IVC: Cardiac Findings: N/A Other Cardiac: N/A IVC Findings: N/A Interpretation: Select all that apply: No sonographic evidence of acute pulmonarydisease Other: N/A Confirmatory Study: What confirmatory study was performed during ED patient evaluation?:No additional imaging ordered Confirmatory Study Findings/Comments:: N/A Signed by Margaret Villavicencio on 2021-02-21 20:35 Margaret Villavicencio MD IMG POCT US O RDERABLES * COVID-19 TEST [facility] PCR (12/28/2020 12:58 EDT) Swab ENTIRE NASOPHARYNX / Unknown Swab / Unknown 12/28/2020 12:58 EDT 12/28/2020 13:03 EDT Margaret Villavicencio MD MICROBIOLOGY - GENERAL ORDERABLES [facility] [address] [place] [address] * COVID-19 TESTING (12/28/2020 12:58 EDT) COVID-19 rt-PCR Result Negative Negative 12/28/2020 16:46 EDT [facility] Comment: This test has not been FDA cleared or approved. This test has been authorized [...] Negative results do not preclude 2019-nCoV infection and should not be used as the sole basis for treatment or other patient management decisions. Negative results must be combined with clinical observations, patient history, and epidemiological information. Performed on the [employer] [place] Fusion instrument Performing Lab [place] [facility] 12/28/2020 16:46 EDT [facility] Swab ENTIRE NASOPHARYNX / Unknown Swab / Unknown 12/28/2020 12:58 EDT 12/28/2020 13:03 EDT Margaret Villavicencio MD MICROBIOLOGY - GENERAL ORDERABLES [facility] [address] [place] [address] * HOLD GREEN TOP (12/28/2020 12:57 EDT) Hold Hold 12/28/2020 14:15 EDT [facility] Blood VENOUS BLOOD / Unknown Venipuncture / Unknown 12/28/2020 12:57 EDT 12/28/2020 13:02 EDT Margaret Villavicencio MD LAB INFO SERV ICE AND SUPPORT & PHONE RESULT Performing Organization Address [facility] Co de Phone Number [facility] [address] [place] [address] * LYME AB (12/28/2020 12:39 EDT) Lyme Ab Negative Negative 12/28/2020 14:14 EDT [facility] Comment:New 3rd generation a ssay in use 11/24/2019 Blood VENOUS BLOOD / Unknown Venipuncture / Unknown 12/28/2020 12:39 EDT 12/28/2020 13:02 EDT Margaret Villavicencio MD IMMUNOLOGY AN D SEROLOGY ORDERABLES Performing Organization Address City/[facility]/ZIP Co de Phone Number [facility] [address] [place] [address] * (ABNORMAL) COMPREHENSIVE METABOLIC PANEL (CMP) (12/28/2020 12:39 ED) Sodium 139 136 - 145 mEq/L 12/28/2020 13:38 [facility] Potassium 4.8 3.5 - 5.0 mEq/L 12/28/2020 13:38 [facility] Comment:Slight hemolysis asad ntified, interpret with caution as hemolysis will elevate potassium result. Chloride 101 96 - 110 mEq/L 12/28/2020 13:38 [facility] CO2 Total 24 22 - 32 mEq/L 12/28/2020 13:38 [facility] Glucose 108(H) 70 - 100 mg/dL 12/28/2020 13:38 [facility] BUN 16 10 - 26 mg/dL 12/28/2020 13:38 [facility] Comment: Slight hemolysis identified, interpret with caution as results may be affected due to hemolysis. Creatinine 1.04 0.66 - 1.25 mg/dL 12/28/2020 13:38 [facility] eGFR 69 >60 mL/min/1.7 3m2 12/28/2020 13:38 [facility] Comment:eGFR calculated noa acosta CKD-EPI equation for non- Americans. Multiply eGFR by 1.16 for patients. Total Protein 6.9 6.3 - 8.2 g/dL 12/28/2020 13:38 [facility] Comment:Slight hemolysis asad ntified, interpret with caution as results may be affected due to hemolysis. Albumin 4.4 3.4 - 4.9 g/dL 12/28/2020 13:38 [facility] Comment:Slight hemolysis asad ntified, interpret with caution as results may be affected due to hemolysis. Alkaline Phosphatase 58 38 - 126 U/L 12/28/2020 13:38 [facility] Comment:Slight hemolysis asad ntified, hemolysis will decrease ALKP result. Interpret with caution as results may be affected due to hemolysis. AST 39 15 - 46 U/L 12/28/2020 13:38 [facility] Comment:Slight hemolysis asad ntified, interpret with caution as results may be affected due to hemolysis. ALT 18 <50 U/L 12/28/2020 13:38 [facility] Bilirubin, Total 0.8 <1.4 mg/dL 12/29/19 13:38 [facility] Calcium 9.5 8.5 - 10.5 mg/dL 12/28/2020 13:38 [facility] Calculated Calcium 9.2 8.5 - 10.5 mg/dL 12/28/2020 13:38 [facility] Comment:Slight hemolysis asad ntified, interpret with caution as results may be affected due to hemolysis. Blood VENOUS BLOOD / Unknown Venipuncture / Unknown 12/28/2020 12:39 EDT 12/28/2020 13:02 EDT Margaret Villavicencio MD CHEMISTRY & B LOOD GAS ORDERABLES Performing Organization Address City/State/[facility] Co de Phone Number [facility] [address] [place] [address] * (ABNORMAL) COMPLETE BLOOD COUNT AND DIFFERENTIAL (12/28/2020 12:39 EDT) WBC 5.77 4.00 - 10.40 K/cmm 12/28/2020 13:30 [facility] RBC 4.75 4.36 - 5.78 M/cmm 12/28/2020 13:30 [facility] Hemoglobin 13.5(L) 13.8 - 17.3 gm/dL 12/28/2020 13:30 [facility] HCT 42.6 39.5 - 50.2 % 12/28/2020 13:30 [facility] MCV 90 81 - 95 fl 12/28/2020 13:30 [facility] MCH 28.4 27.6 - 33.0 pg 12/28/2020 13:30 [facility] MCHC 31.7(L) 32.8 - 36.4 gm/dL 12/28/2020 13:30 [facility] RDW-CV 20.1(H) <14.2 % 12/28/2020 13:30 [facility] RDW-SD 64.3(H) <46.0 fl 12/28/2020 13:30 [facility] PLT 286 141 - 377 K/cmm 12/28/2020 13:30 [facility] MPV 12.5 9.5 - 12.7 fl 12/28/2020 13:30 [facility] % Neutrophils 65.8 % 12/28/2020 13:30 [facility] % Lymphocytes 20.1 % 12/28/2020 13:30 [facility] % Monocytes 7.6 % 12/28/2020 13:30 [facility] % Eosinophils 4.9 % 12/28/2020 13:30 [facility] % Basophils 0.7 % 12/28/2020 13:30 [facility] % Immature Grans 0.9 % 12/29/19 13:30 [facility] Absolute Neutrophils 3.80 2.20 - 8.85 K/cmm 12/28/2020 13:30 [facility] Absolute Lymphocytes 1.16 1.09 - 3.30 K/cmm 12/28/2020 13:30 [facility] Absolute Monocytes 0.44 0.10 - 0.80 K/cmm 12/28/2020 13:30 [facility] Absolute Eosinophils 0.28 0.03 - 0.61 K/cmm 12/28/2020 13:30 [facility] ABS Basophils 0.04 0.01 - 0.11 K/cmm 12/28/2020 13:30 [facility] Absolute Immature Grans 0.05 0.00 - 0.06 K/cmm 12/28/2020 13:30 [facility] Type of Differential: Auto 12/28/2020 13:30 [facility] Blood VENOUS BLOOD / Unknown Venipuncture / Unknown 12/28/2020 12:39 EDT 12/28/2020 13:02 EDT Margaret Villavicencio MD PACKAGES & DN A PROBE ORDERABLES Performing Organization Address [facility] Co de Phone Number [facility] [address] [place] [address] * HOLD SST (12/28/2020 12:39 EDT) Hold Hold 12/28/2020 14:15 EDT [facility] Blood VENOUS BLOOD / Unknown Venipuncture / Unknown 12/28/2020 12:39 EDT 12/28/2020 13:02 EDT Margaret Villavicencio MD LAB INFO SERV ICE AND SUPPORT & PHONE RESULT Performing Organization Address [facility] de Phone Number [facility] [address] [place] [id number] * HOLD LAVENDER TOP (12/28/2020 12:39 EDT) Hold Hold 12/28/2020 14:15 EDT [facility] Blood VENOUS BLOOD / Unknown Venipuncture / Unknown 12/28/2020 12:39 EDT 12/28/2020 13:02 EDT Margaret Villavicencio MD LAB INFO SERV ICE AND SUPPORT & PHONE RESULT Performing Organization Address [facility] Co de Phone Number [facility] [address] [place] [address] * HOLD GREEN TOP (12/28/2020 12:39 EDT) Hold Hold 12/28/2020 14:15 EDT [facility] Blood VENOUS BLOOD / Unknown Venipuncture / Unknown 12/28/2020 12:39 EDT 12/28/2020 13:02 EDT Margaret Villavicencio MD LAB INFO SERV ICE AND SUPPORT & PHONE RESULT Performing Organization Address City/[facility]/ZIP Co de Phone Number [facility] [address] [place] [address] * HOLD BLUE TOP (12/28/2020 12:39 EDT) Hold Hold 12/28/2020 14:15 EDT [facility] Blood VENOUS BLOOD / Unknown Venipuncture / Unknown 12/28/2020 12:39 EDT 12/28/2020 13:02 EDT Margaret Villavicencio MD LAB INFO SERV ICE AND SUPPORT & PHONE RESULT [facility] [address] [place] [address] documented in this encounter Visit Diagnoses Diagnosis Acute viral syndrome- Primary Unspecified viral infection, in conditions classified elsewhere and of unspecified site documented in this encounter Active and Recently Administered Medications Orders Medications Ordered That Ramon ht Not Have Been Administered Count Last Ordered Date First Ordered Date lidocaine (PF) 10 mg/mL (1 % ) injection 2 mg 1 12/28/2020 documented in this encounter Additional Health Concerns Infection Onset Date Last Indicated Resolved Time R/O COVID-19 12/28/2020 12/28/2020 01/02/2021 22:1 5 EDT documented as of this encounter Care Teams Software Support Technician Relationship Specialty Start Date End Date Layne Cai MD [address] [place] [phone] PCP - General 04/05/20 12/16/23 Claire Lopez NP [address] [place] [address] [address] [place] [address] Cardiovascular Disease 11/22/20 Tod Perez NP [address] [facility], [address] [place] [phone] Rheumatology 12/28/20 documented as of this encounter
--- OUTSIDE RECORDS SUMMARY | 2024-01-09 01:50 | XMS_ITS | Encounter Summary ---
Author Organization [facility] Address [address] [place] [address] Care Team Providers Care Head Inspector And Center Marker Name Role Phone Layne Cai MD Primary Care Provider [phone] Reason for Visit * Reason Onset Date Comments Medications Refill 2020 Encounter Details Date Type Department Care Team (Late st Contact Info) Description 2020 Refill [facility] Rheumatology & Immunology - [facility] [address] [place] [address] Tod Perez, STEEL LAYER [address] [facility], [address] [place] [phone] Medications Refill Social History Tobacco Use Types [...] Dispensed Refills Start Date End Da te folic acid (FOLVITE) 1 mg tabletIndications:Inflamma tion around joint,Encounter for long-term (current) use of medications Take 1 Tab by mouth daily. 90 Tab 3 2020 09/20/2020 documented in this encounter Plan of Treatment Upcoming Encounters Date Type Department Care Team (Late st Contact Info) Description 04/09/2024 16:30 EDT Office Visit [facility] Hematology & Oncology [address] [phone] Erin Barillas MD [address] [place] [address] 2 [place] [phone] 05/18/2024 10:00 EST Office Visit [facility] Rheumatology & Immunology [address] [address] Tod Perez NP [address] [place] [address], [facility] [address] [place] [phone] 06/03/2024 9:00 EST Ancillary Procedure [facility] [address] [place] [phone] 06/03/2024 9:00 EST Office Visit [facility] [address] [place] [address] Claire Lopez NP [address] [place] [address] [place] [phone] documented as of this encounter Visit Diagnoses Diagnosis Inflammation around joint Enthesopathy of unspecified site Encounter for long-term (current) use of medications Encounter for long-term (current) use of other medications documented in this encounter Discontinued Medications Medication Sig Discontinue Reason Start Date End Da te folic acid (FOLVITE) 1 mg tabletIndications:Inflamm ation around joint,Encounter for long-term (current) use of medications Take 1 Tab by mouth daily. Reorder 09/23/2019 2020 documented as of this encounter Care Teams Head Inspector And Center Marker Relationship Specialty Start Date End Date Layne aCi MD [address] [place] [address] PCP - General 04/05/20 12/16/23 documented as of this encounter
--- OUTSIDE RECORDS SUMMARY | 2024-01-09 01:50 | XMS_ITS | Encounter Summary ---
Author Organization [facility] Address [address] [place] [address] Care Team Providers Care Defense Travel Administrator Name Role Phone Layne Cai MD Primary Care Provider [phone] Claire Lopez NP Unavailable [phone] Reason for Visit * Reason Onset Date Comments Results 12/13/2020 Encounter Details Date Type Department Care Team (Late st Contact Info) Description 12/13/2020 Telephone [facility] Hematology & Oncology - [facility] [address], [place] [phone] Erin Barillas MD 111 [facility], Level 2 [place] [address] Results Social History Tobacco Use [...] 9:32 EDT documented as of this encounter Functional Status [...] * Telephone Encounter - Augustina Salazar - 12/13/2020 1200 EDT LABS ENTERED FROM [facility]. Augustina Salazar 12/13/2020 12:00 documented in this encounter Plan of Treatment Upcoming Encounters Date Type Department Care Team (Late st Contact Info) Description 04/09/2024 16:30 EDT Office Visit [facility] Hematology & Oncology - [address] [phone] Erin Barillas MD [address] [place] [address], [facility] 2 [place] [phone] 05/18/2024 10:00 EST Office Visit [facility] Rheumatology & Immunology - [address] [phone] Tod Perez NP 111 [facility], [facility] 5 [place] [address] 06/03/2024 9:00 EST Ancillary Procedure [facility]iology Clinic [address] [place] [address] 06/03/2024 9:00 EST Office Visit [facility] [facility] Cardiology Clinic [address] [place] [address] Jessica ClaireFESTUS [address] [facility] [address] [place] [address] documented as of this encounter Procedures Procedure Name Priority Date/Time Associated Diagnosis Comments COMPREHENSIVE METABOLIC PANEL (ONCOLOGY USE ONLY-INC MG) Routine 12/11/2020 COMPLETE BLOOD COUNT AND DIFFERENTIAL Routine 12/11/2020 documented in this encounter Results * (ABNORMAL) COMPREHENSIVE METABOLIC PANEL (ONCOLOGY USE ONLY-INC MG) (12/11/2020) [facility] Calcium, External 8.9 [facility] CO2, External 27.4 [facility] AST, External 26 [facility] ALT, External 30 [facility] Bilirubin, Total, External 0.8 [facility] Creatinine, External 1.3 [facility] Calculated Calcium, External [facility] Anion Gap, External [facility] Total Protein, External 6.9 [facility] Potassium, External 4.5 [facility] Total Alkaline Phosphatase, External 76 [facility] Albumin, External 4.0 [facility] BUN, External 19(A) 7 - 18 [facility] GFR, Calculated, External 53.53 [facility] Fasting?, External [facility] Chloride, External 105 [facility] Glucose, Serum, External 130(A) 74 - 106 [facility] Sodium, External 141 [facility] Magnesium, External [facility] Blood VENOUS BLOOD / Unknown 12/11/2020 Historical Provider CHEMISTRY & BLOOD GAS ORDERABLES [facility] * (ABNORMAL) COMPLETE BLOOD COUNT AND DIFFERENTIAL (12/11/2020) Pathologist [facility] WBC, External 6.02 [facility] RBC, External 4.77 [facility] Hemoglobin, External 13.3(A) 13.5 - 17.5 [facility] HCT, External 44.0 [facility] MCV, External 92.2 [facility] MCH, External 27.9 [facility] MCHC, External 30.2(A) 32.0 - 36.0 [facility] PLT, External 259 [facility] RDW-CV, External 18.6(A) 11.8 - 14.1 [facility] Neutrophils, External 72.8 [facility] Lymphocytes, External 18.6 [facility] Monocytes, External 5.3 [facility] Eosinophils, External 2.0 [facility] Basophils, External 1.0 [facility] ABS Neutrophils, External 4.38 [facility] ABS Lymphs, External 1.12(A) 1.2 - 3.4 [facility] ABS Monocytes, External 0.32 [facility] ABS Eosinophils, External 0.12 [facility] ABS Basophils, External 0.06 [facility] Blood VENOUS BLOOD / Unknown 12/11/2020 Historical Provider MD PACKAGES & DNA SD OBE ORDERABLES [facility] documented in this encounter Visit Diagnoses Not on filedocumented in this encounter Care Teams Defense Travel Administrator Relationship Specialty Start Date End Date Layne Cai MD [address] [place] [address] PCP - General 04/05/20 12/16/23 Claire Lopez NP [address] [place] [address]A [address] [place] [address] Cardiovascular Disease 11/22/20 documented as of this encounter
--- OUTSIDE RECORDS SUMMARY | 2024-01-09 01:50 | XMS_ITS | Encounter Summary ---
Author Organization [facility] Address [address] [place] [address] Care Team Providers Care Car Starter Name Role Phone Layne Cai MD Primary Care Provider [phone] Reason for Visit * Reason Onset Date Comments Medications Refill 11/12/2020 Encounter Details Date Type Department Care Team (Late st Contact Info) Description 11/12/2020 Refill [facility] Rheumatology & Immunology - [facility] [address] [place] [address] Tod Perez, SEWER TAPPER 111 [facility], Level 5 [place] [phone] Medications Refill Social History Tobacco Use Types [...] Dispensed Refills Start Date End Da te methotrexate 2.5 mg tabletIndications:Inflamma tion around joint,Encounter for long-term (current) use of medications Take 10 Tabs by mouth once a week. 120 Tab 1 11/16/2020 04/03/2021 documented in this encounter Miscellaneous Notes * Telephone Encounter - Payton Young - 11/15/2020 1620 EDT Requested Prescriptions Pending Prescriptions Disp Refills ??? methotrexate 2.5 mg tablet 120 Tab 3 Sig: Take 10 Tabs by mouth once a week. Pharmacy: [facility] Last Refill Date: 08/14/20 - different pharmacy Last Visit Date: 08/31/20 Next Non-Acute Visit Date Scheduled with Care Team: 12/28/2020 From last OV note 08/31/20: 'We will see what your next Cr is, if it is higher we need to decrease your methorexate PAYTON YOUNG RN 11/15/2020 16:20 * Telephone Encounter - Payton Young - 11/15/2020 1609 EDTFrom: Praneeth Villanueva To: Office of Tod Perez APRN Sent: 11/12/2020 9:24 EDT Subject: Medication Renewal Request Refills have been requested for the following medications: methotrexate 2.5 mg tablet [Tod Perez APRN] Patient Comment: Prescriptions have been moved from [facility] to [facility] will not transfer prescription [facility] . Preferred pharmacy: [phone] documented in this encounter Plan of Treatment Upcoming Encounters Date Type Department Care Team (Late st Contact Info) Description 04/09/2024 16:30 EDT Office Visit [facility] Hematology & Oncology [address] [phone] Erin Barillas MD [address] [place] [address], [facility] 2 [place] [phone] 05/18/2024 10:00 EST Office Visit [facility] Rheumatology & Immunology - [address] [phone] Tod Perez NP [address] [place] [address], [facility] 5 [place] [phone] 06/03/2024 9:00 EST Ancillary Procedure [facility] Clinic [address] [place] [phone] 06/03/2024 9:00 EST Office Visit [facility] Cardiology Clinic [address] [place] [phone] Claire Lopez NP [address] [place] [address]-A [address] [place] [phone] documented as of this encounter Visit Diagnoses [...] 10 Tabs by mouth once a week. Reorder 08/14/2020 11/12/2020 documented as of this encounter Care Teams Car Starter Relationship Specialty Start Date End Date Layne Cai MD [address] [place] [phone] PCP - General 04/05/20 12/16/23 documented as of this encounter
--- OUTSIDE RECORDS SUMMARY | 2024-01-09 01:50 | XMS_ITS | Encounter Summary ---
Author Organization [facility] Address [address] [place] [address] Care Team Providers Care Contract Attorney Name Role Phone Layne Cai MD Primary Care Provider [phone] Claire Lopez PETROLEUM ENGINEER Unavailable [phone] Tod Perez PETROLEUM ENGINEER Unavailable [phone] Vianey Bocanegra APRN Primary Care Provider [phone] Encounter Details Date Type Department Care Team (Late st Contact Info) Description 12/28/2020 Telephone [facility] Rheumatology & Immunology - [facility] [address] [place] [address] Tod Perez, PETROLEUM ENGINEER [address] [place] [address], [address] [place] [address] Social History Tobacco Use Types [...] Telephone Encounter - Tod Perez, BATSHEVA - 12/28/2020 1139 EDT Spoke to [facility] intake, Sending [...] 6-10 miles daily, did not go to [place] in the winter covid and was much [...] Info) Description 04/09/2024 16:30 EDT Office Visit [facility] Hematology & Oncology - [address] [phone] Erin Barillas MD 111 [facility], [facility] 2 [place] [phone] 05/18/2024 10:00 EST Office Visit [facility] Rheumatology & Immunology - [address] [phone] Tod Perez NP 111 [facility], [facility] 5 [place] [phone] 06/03/2024 9:00 EST Ancillary Procedure [facility] Cardiology Clinic [address] [place] [phone] 06/03/2024 9:00 EST Office Visit [facility] Cardiology Clinic [address] [place] [address] Claire Lopez NP 130 [facility] [address] [phone] documented as of this encounter Visit Diagnoses Not on filedocumented in this encounter Additional Health Concerns Infection Onset Date Last Indicated Resolved Time R/O COVID-19 12/28/2020 12/28/2020 01/02/2021 22:1 5 EDT documented as of this encounter Care Teams Contract Attorney Relationship Specialty Start Date End Date Layne Cai MD [address] [place] [address] PCP - General 04/05/20 12/16/23 Vianey Bocanegra APRN [address] [address] PCP - General 12/17/23 Claire Lopez NP [address] [place] [address] [address] [place] [address] Cardiovascular Disease 11/22/20 Tod Perez NP [address] [place] [address], [facility] 5 [place] [phone] Rheumatology 12/28/20 documented as of this encounter
--- OUTSIDE RECORDS SUMMARY | 2024-01-09 01:50 | XMS_ITS | Encounter Summary ---
Author Organization [facility] Address [address] [place] [address] Care Team Providers Care Breaker Unit Assembler Name Role Phone Layne Cai MD Primary Care Provider [phone] Reason for Visit * Reason Comments Follow-up Joint Pain Encounter Details Date Type Department Care Team (Late st Contact Info) Description 08/31/2020 10:30 EDT Office Visit [facility] Rheumatology & Immunology - [facility] [address] [place] [address] Tod Perez, FURNITURE DESIGNER 111 [facility], Level 5 [place] [address] History of seronegative inflammatory arthritis [...] * Patient Instructions* Tod Perez, BATSHEVA - 08/31/2020 10:30 EDT 1. Continue current [...] joint damage and reduce the risk of long-termdisability. Hydroxychloroquine is in a class of medications that was first used to prevent and treat malaria. Today, it is used to treat rheumatoid arthritis, some symptoms of lupus, childhood arthrit is (also known as juvenile idiopathic arthritis) and other autoimmune diseases. It is not clear whyhydroxychloroquine is effective at treating autoimmune diseases. It [...] Serious side effects are rare. The most commonside effects are nausea and diarrhea, which often improve with time. Less common side effects include rash, changes in skin pigment (such as darkening or dark spots), hair changes, and muscle weakness. Rarely, hydroxychloroquine can lead to anemia in some individuals. This can happen in individualswith a condition known as G6PD deficiency or porphyria. In rare cases, hydroxychloroquine can cause visual changes or loss of vision. Such vision problems are more likely to occur in individuals taking high doses for many years, in individuals 60 years orolder, or in those with significant kidney disease. At the recommended dose, development of visual problems due to the medication is rare. It is recommended that you have an eye exam within the firstyear of use, then repeat every 1 to 5 years based on current guidelines. TELL YOUR DOCTOR Although there are few drug interactions with hydroxychloroquine, to be safe be sure to tell your doctor about all of the medications you are taking, including xlzj-nkk-[id number] drugs and natural remedies. Be sure to [...] has been shown to be safe during and breast feeding. ?? 2019 [employer] documented in this encounter Progress Notes * Tod Perez APRN - 08/31/2020 1030 EDT [...] to improvement of symptoms - Travelled to [place] including [facility]. Able to ambulate without difficulty. - AM [...] with bilateral hand swelling. Was ester 5th meng in [place] at that time. new dx around 04/2019 of polycythemia: elevated RBC and hemoglobin Had repeat labs at [facility] 05/2019 PCP was suppose to set up NPV with hematology at [facility] - they have not heard from PCP [...] - 40 % 17.8 (L) MONO% - CV Latest Ref Range: 0 - 12 % 9.8 EOS % - CV Latest Ref Range: 0 - 5 % 2 BASO % - CVMC Latest Ref Range: 0 - 2 % 1 ABSOLUTE NEUTROPHIL COUN - CV Latest Ref Range: 2.2 - 8.85 10e3/uL 4.9 LYMPH # - CV Latest Ref Range: 1.09 - 3.3 10e3/ul 1.3 MONO # - CV Latest Ref Range: 0.1 - 0.8 10e3/uL 0.7 EOS # - CV Latest Ref Range: 0.03 - 0.61 10e3/ul 0.16 BASO # - CV Latest Ref Range: 0.01 - 0.11 10e/uL [...] ?? Lab Results Component Value Date ?? AMLO <40 05/10/2014 ?? DSDNA <12.3 05/10/2014 ?? C3 135 05/10/2014 ?? C4 27 05/10/2014 ?? [facility]: 11/18/18: CBC with differential: CBC [...] Status: Final result ?Visible to patient: Yes ([employer]) Next appt: 05/25/2018 at 11:40 in Rheumatology (Sudhir Rosales MD) Order: [id number] ? 1yr ago ?? Pathology Report: SURGICAL PATHOLOGY REPORT Reports generated via electronic interface contain original data; however they are lacking the format of the original report. Caution should be taken when reading/interpreting unformatted reports. Name: ? DEON VILLANUEVA ? Accession #: ? [id number] ? : ? 1945 (Age: 71) ??M [...] Status: Final result ?Visible to patient: Yes ([employer]) Next appt: 05/25/2018 at 11:40 in Rheumatology (Sudhir Rosales MD) Order: [id number] ? 1yr ago ?? Pathology Report: SURGICAL PATHOLOGY REPORT Reports generated via electronic interface contain original data; however they are lacking the format of the original report. Caution should be taken when reading/interpreting unformatted reports. Name: ? DEON VILLANUEVA ? Accession #: ? [id number] ? : ? 1945 (Age: 71) ??M ?Collect Date: ? 10/23/2016 ? Location: ? [facility] ? Receive Date: ? 10/24/2016 ? Provider: SHREYA LEA MD Copy to: MINDY SZYMANSKI STOVE INSTALLER ? Final Pathologic Diagnosis: A. ??GASTROESOPHAGEAL JUNCITON, [...] x 0.1 cm). Submitted intact in B1. nAn Moscoso 10/25/2016 7:55 AM ?XR CHEST 2 VIEWS (Order [id number]) Status: Final result (Exam End: 05/19/2020 16:15) Results XR CHEST 2 VIEWS ( (Order [id number]) XR CHEST 2 VIEWS Order: [id number] Status: Final result ?Visible to patient: Yes (MyChart) Next appt: None Details Reading Physician Reading Date Result Priority Dustin Ibrahim MD [phone] 05/19/2020 Narrative & Impression EXAM: RADIOLOGY/CHEST PA [...] and available for consult if needed. Tod Perez, CELLULAR TOWER CLIMBER 08/31/2020 12:30 I spent a total of [...] [facility] [place] [facility] On[facility] [address] [phone] Erin Barillas MD [address] [place] [address] 2 [place] [phone] 05/18/2024 10:00 EST Office Visit [facility] Rheumatology & Immunology [address] [phone] Tod Perez NP [address] [place] [address] 5 [place] [phone] 06/03/2024 9:[address] [facility] Cardiology Clinic [address] [place] [phone] 06/03/2024 9:[address] [facility] Cardiology Clinic [address] [place] [phone] Claire Lopez NP [address] [place] [address]A [address] [place] [phone] documented as of this encounter Visit Diagnoses Diagnosis History of seronegative inflammatory arthritis- Primary Encounter for long-term (current) use of medications Encounter for long-term (current) use of other medications documented in this encounter Discontinued Medications Medication Sig Discontinue Reason Start Date End Da te methotrexate, PF, (RASUVO, PF,) 25 mg/0.5 mL auto-injector Inject 25 mg into the skin once a week. Therapy completed 06/06/2020 08/31/2020 documented as of this encounter Care Teams Breaker Unit Assembler Relationship Specialty Start Date End Date Layne Cai MD [address] [place] [phone] PCP - General 04/05/20 12/16/23 documented as of this encounter
--- OUTSIDE RECORDS SUMMARY | 2024-01-09 01:50 | XMS_ITS | Encounter Summary ---
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 11/22/20 0930 Posted [facility] Operational Review Sergeant Operational Review Sergeant 3 [facility] Outpatient Procedure H - Elective Panel 1 Procedure LRB Anes Op Region Wound Class Comments Coronary Angiogram Left Chest Surgeon Surgeon Role Service Panel Jose Joseph MD Primary Cardiovascular 1 Deon Flores MD Fellow Interventional Car diology 1 documented in this encounter Social History Tobacco Use Types Packs/Day Years [...] - Temperature 36 ??C (96.8 ??F) 11/22/2020 095 0 EDT Respiratory Rate - - Oxygen Saturation 97% 11/22/2020 095 0 EDT Inhaled Oxygen Concentration - - Weight 102.9 kg (226 lb 13.7 oz) 11/22/2020 0950 EDT Simultaneous filing. User may not have seen previous data. Height 182.9 cm (6') [...] this encounter Discharge Instructions * Discharge Instructions* Anastasiya Steve RN - 11/22/2020 12:11 EDT Diagnostic Cardiovascular Catheterization Discharge Instructions Department of Cardiology Deon Jeong Kay, your Procedure was performed by Dr Joseph . Phone # [phone] You have had a Cardiovascular Catheterization performed [...] for 90 days. 90 Cap 11/14/2020 02/12/2021 ibuprofen (MOTRIN) 200 mg tablet Take 200 mg by mouth every 6 hours as needed for Pain. 12/15/2020 isosorbide MONOnitrate (IMDUR) 60 mg CR tablet Take 1 Tab by mouth daily. 90 Tab 3 11/09/2020 03/02/2021 methotrexate 2.5 mg tabletIndications:Inflamm ation around joint,Encounter for long-term (current) use of medications Take 10 Tabs by mouth once a week. 120 Tab 1 11/16/2020 04/03/2021 documented as of this encounter Discharge Disposition Disposition Code Departure Means Destination Home or Self [facility] documented in this encounter Progress Notes * Jeannette Hernandez RN - 11/22/2020 1517 EDT 1515 Reviewed discharge instructions with patient and . Verbalized understanding of discharge instructions. * Anastasiya Steve RN - 11/22/2020 1419 EDT Deon Villanueva arrived to U # 5 at 1142 via stretcher s/p diag heart cath. Alert and oriented x3. 1330 Discharge instructions gone over with pt and , copy given 1345 5ml removed from tr band immediate bleeding noted 3 place back in 1430 Last 4ml removed from tr band no bleeding or hematoma noted, good csmt. TR Band removed dsd applied,, Report given to Octavia hernandez rn. * Kristina Rivera RN - 11/22/2020 1002 EDT Deon Villanueva arrived to the Cardiovascular Unit via ambulation. Patient alert and oriented x3. Transfers to stretcher independently. Patient greeted and identified per [facility] policy. Allergies and procedure verified & patient oriented to Unit. Reviewed all pre-procedure instructions with Deon Villanueva. All questions answered & patient verbalizes willingness and understanding of pre-procedure education. Patient stretcher in low position with side rails up & call bellwithin patient reach. Patient's spouse is at bedside No covid symptoms. * Lin Flores RN - 11/15/2020 1231 EDT Pt's support person is fully vaccinated. Precardiac Cath Nursing Checklist Recent Labs: Lab Results Component Value Date BUN 19 11/09/2020 CREATININE 1.01 11/09/2020 HGB 13.6 (L) 11/09/2020 CALCGFR >60 11/09/2020 Hgt: 181.6cm Wgt: 104.2kg Allergies: Allergies Allergen Reactions ??? Lisinopril Causes chest pain. ? Myocardial bridging Local [id number] - [place], [place] - [address] [facility] [address] [facility] [address] Cardiac History: Stress Test? No Reason for [...] history that includes Cholecystectomy; Cataract removal; hernia repair;eye surgery; and Cardiac pacemaker placement. Chronic Risk [...] instructed to register on the 3rd floor [facility]. Transportation Issues: No Patient/family instructed that they will need a designated log truck driver if they are discharged on the dayof the procedure. Medications: Medication list: Patient/family instructed to bring medication list with them on the day of the procedure. Anticoagulants/Antiplatelets: Takes Aspirin 81 mg daily Anti-Anginal meds: B-Blockers and Long acting Nitrates LIN FLORES RN * Lin Flores RN - 11/15/2020 1214 EDT Images from the original note were not included. [facility] [address] [place] [phone] Ara Melchor is important information regarding your upcoming Cardiac Catheterization procedure. I will call you soon to go over these and answer any questions you may have. Please feel free to call with anyquestions or concerns, using phone numbers provided at [...] clear fruit juices (apple or cranberry), carbonated beverages,Jell-O, black or sweetened coffee and tea. 1. On the morning of your procedure please take your regular morning medications with a small amount of water. 2. Please REMAIN on your Aspirin. 3. Please self-quarantine as much as possible prior to your procedure. 4. Please shower the evening before or the morning of your procedure. 5. Please do not bring any medications with you to the hospital; it is important however to bring an accurate list of the medications you are currently taking. 6. You may need to spend the night in the hospital, so please plan accordingly by bringing an overnight bag with simple items, such as a tooth brush, change of clothes, etc. We request that you leaveany valuables at home unless you are able to hand them over to the support person with you. IF you need to spend the night you will be Allowed 1 FULLY vaccinated visitor per day. (Fully Vaccinated ishas received 1 J&J, or both doses of the Pfizer or Moderna vaccine a FULL 14 days prior to admission). 7. If you do not need to spend the night, you will be discharged once you have recovered. When you go home you will need a designated log truck driver, or a responsible adult to accompany you if you are takingpublic transportation or a cab. 8. The pre-registration department will call you 1 to 2 business days before your procedure to verify your address and insurance information. You will still need to stop by registration the day of your procedure. When you arrive at the Hospital 1. Park in the underground garage, and take any elevator to the 3rd floor registration; or you may prefer to have your log truck driver drop you off at the [...] waiting room. Please check in with the executive receptionist and they will notify of your arrival. If someone is accompanying you they willstay in the waiting room until your procedure [...] your family member or friend to review theresults. We are here to help, so should you need assistance feel free to call anyone listed below with questions. Cath Field Talent Qualification Specialist - [phone] Advanced Testing Nurse- [phone] ~ Lin Patients & Visitors Information [email or web address] documented in this encounter H&P Notes * Deon Azevedo MD - 11/22/2020 1056 EDT CARDIOLOGY ADMISSION H&P Admit Date: 11/22/2020 PCP: Layne Cai Chief Complaint: SOB and PENDLETON HPI: Deon Villanueva is a 75 y.o. 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 Patient follows with Dr. Chawla with noted generator change 06/27/2020 and follow-up for complaintsof exertional CP, S OB, diaphoresis. Symptoms noted over the past few months occurring both at restand with exertion. Underwent nuclear stress test at [facility] which had been reportedly normal. ROS: Full 10 point system obtained; negative unless indicated in the HPI Relevant prior Cardiac Studies: [facility]: 04/08/2012: Left Main Artery: The left main [...] 2004 ??? EYE SURGERY ??? HERNIA REPAIR Social [...] oz)(Simultaneous filing. User may not have seen previousdata.) BMI: Body mass index is 30.77 kg/m??. [...] reviewed. EKG: Reviewed Labs: WBC/Hgb/Hct/Plts: 7.59/13.9/43.7/315 (11/22 1013) PT/INR/PTT: 12.4/1.1/-- (11/22 1013) BMP: Recent Labs 11/22/20 1014 NA 143 K 4.8 CL 106 CO2 25 BUN 22 CREATININE 1.07 Assessment/Plan: 75 y.o. male with a history of CAD, HTN, HLD, SSS (s/p PPM), inflammatory polyarthropathy (on MTX),benign neoplasm of the colon, PV, CKD 3, and BPH presenting for [facility]. Plan: Left heart catheterization to evaluate coronary [...] and/or intervention to the patient (or responsible alliance party) and have answered the patient's (or responsible alliance party's) questions. To the best of my knowledge, the patient (or responsible alliance party) has been adequately informed. The patient (or responsible alliance party) has consented to the interventional cardiac procedure. As part of the consent we reviewed that, like surgical procedures, interventional procedures require aggressive short term support to determine the potential benefits of the procedures. For this reason, the patient (or responsible alliance party) has agreed to remain FULL CODE for a minimum of 48 hours after the procedure. DEON AZEVEDO MD 11/22/2020 10:59 documented in this encounter Procedure Notes * Jose Joseph Jr., MD - 11/22/2020 1134 EDT Cardiovascular Catheterization Laboratory Preliminary Report -- Catheterization Date of Service/Procedure: 11/22/2020 Attending Physician: Jose Joseph Jr., MD Fellow: Deon Azevedo MD Dear Claire, I had the pleasure of performing cardiac catheterization on Deon Gunn today. As you know, he is a 75-year-old male with atypical chest discomfort, with both exertional symptoms as well as symptoms with the onset at rest. He has a [...] new flow-limiting coronary artery disease. His films todaylook identical to those in 2012, with the absence of the vasospasm after pressure wire assessment in 2011. Thus, he has no flow-limiting coronary artery disease, and revascularization is clearly not indicated. The origin of his symptoms is not related to high risk coronary artery disease. Thank you for allowing me to participate in the care of this patient. Please feel free to contact me anytime if you have any questions or concerns. Pre-Procedure Diagnosis /NCDR Indication: Deon Villanueva is a 75 y.o. year old male with new onsetangina <= 2 months and stable known CAD. Chest Pain Symptom Assessment: Atypical Angina Heart Failure: No CHSA Clinical Frailty Scale: 3: Managing Well Prior Stress Testing? Yes, with a negative result. Anesthesia: A moderate level of anesthesia/conscious sedation was used in addition to local anesthesia. Access: Right radial artery Procedure: He was brought to [facility] Cardiac Catheterization Laboratory for the procedure: [...] With the patients consent, all family members and patient support persons who were present at the conclusion of the procedure have been notified ofthese results and treatment plans as well. Post Procedure Follow Up: Patient to follow up with Claire Lopez in 4 weeks Jose Joseph Jr., MD PagerNumber: [phone] 11/22/2020 11:34 documented in this encounter Plan of Treatment Upcoming Encounters Date Type Department Care Team (Late st Contact Info) Description 04/09/2024 16:30 EDT Office Visit [facility] [place] [facility] - [address] [phone] Erin Barillas MD 111 [facility], [facility] 2 [place] [phone] 05/18/2024 10:00 EST Office Visit [facility] Rheumatology & Immunology - [address] [phone] Tod Perez NP [address] [place] [address], [facility] 5 [place] [phone] 06/03/2024 9:00 EST Ancillary Procedure [facility] [address] [place] [phone] 06/03/2024 9:00 EST Office Visit [facility] [address] [place] [phone] Claire Lopez NP [address] [place] [address] [place] [phone] documented as of this encounter Procedures Procedure Name Priority Date/Time Associated Diagnosis Comments ECG REPORT - SCANNED 11/27/2020 14:03 EDT ECG REPORT - SCANNED 11/27/2020 14:03 EDT ECG REPORT - SCANNED 11/23/2020 16:32 EDT CARDIAC CATHETERIZATION Routine 11/23/19 21 11:38 EDT Exertional chest pain PROTIME STAT 11/22/2020 10:14 EDT COMPLETE BLOOD COUNT STAT 11/22/2020 10:14 EDT BUN STAT 11/22/2020 10:14 EDT CREATININE STAT 11/22/2020 10:14 EDT ELECTROLYTES STAT 11/22/2020 10:14 EDT EKG 12-LEAD Routine 11/22/2020 10:03 EDT documented in this encounter Results * ECG REPORT - SCANNED (11/27/2020 14:03 EDT) 11/27/2020 14:0 3 EDT Scan 2 Channeling Machine Runner PROCEDURE/MINOR JHOAN GICAL ORDERABLES * ECG REPORT - SCANNED (11/27/2020 14:03 EDT) 11/27/2020 14:0 3 EDT Scan 2 Channeling Machine Runner PROCEDURE/MINOR JHOAN GICAL ORDERABLES * ECG REPORT - SCANNED (11/23/2020 16:32 EDT) 11/23/2020 16:3 2 EDT Scan 2 Channeling Machine Runner PROCEDURE/MINOR JHOAN GICAL ORDERABLES * CORONARY ANGIOGRAM (11/22/2020 11:38 EDT) Anatomical Region Laterality Modality Operational Review Sergeant 11/22/2020 10:5 5 EDT Narrative 11/28/2020 12:28 EDT Cardiology [address] [place] [phone] Catheterization Laboratory Study Patient: Deon Villanueva ? Study Date: ? 11/22/2020 ? Accession #: ?[id number] : ? 1945 Referring: Claire Lopez Aprn Diagnostic Attending: ?Jose Bernal Interventional Attending: ?? Jose Joseph Interventional Fellow: Deon Azevedo ATTESTATION: IDr. Deon was the initial author of this report. Dr. Jose Joseph was present and supervising for the entire procedure. I, Dr. Jose Joseph have reviewed and agreed with the findings of this report. (Report amended ) PROCEDURE PLAN: A diagnostic study was performed without intervention. RESEARCH STUDY: Patient is not enrolled in any research studies. IMPRESSIONS: Mild coronary artery disease. SUMMARY: 1. HPI and indications: Dyspnea. Sinus bradycardia. 2. Coronary arteries: The coronary circulation is right dominant. 3. Left main: Normal. 4. LAD: Minor luminal irregularities. 5. 1st diagonal: Minor luminal irregularities. Unchanged. 6. Left circumflex: Minor luminal irregularities. 7. Right coronary: Minor luminal irregularities. High anterior origin. RECOMMENDATIONS: ACC recommendation: Medical therapy and/or counseling. HISTORY: Dyspnea. ??Sinus bradycardia. ??Functional status: ?? Normal LV systolic function; NYHA class III (symptoms with minimal exercise). ??Risk factors: ??Hypertension. Dyslipidemia. LABS, PRIOR TESTS, PROCEDURES AND SURGERY: International normalized ratio (INR) of 1.1. ??Serum potassium (K) of 4.8 mEq/l. ??Serum creatinine (current admission) of 1.07 mg/dl. ??Blood urea nitrogen of 22 mg/dl. ??Platelet count of 315 th/ul. ??Hematocrit of 43.7 %. ??Hemoglobin (pre-procedure) of 13.9 g/dl. STUDY DATA: Study status: ??Cardiac cath: elective. ??Location: ??Catheterization laboratory. Sex: male. Patient is 75yr old. Height: 182.9cm. Weight: 102.9kg. BSA: 2.31m^2. Procedures performed: ?Left heart catheterization. ?Right radial artery access. ?Left coronary angiography. ?Right coronary angiography. ANESTHESIA: Conscious sedation by cardiology staff. PROCEDURE: 1. Initial setup. The patient was brought to the laboratory in the ?? fasting state. A baseline ECG was recorded. Surface ECG leads, ?? automatic cuff blood pressure measurements, and pulse oximetric ?? signals were monitored. 2. Skin preparation. The planned puncture sites were prepped with ?? chlorhexidine and draped in the usual sterile manner. 3. Local anesthesia. Using 2% Lidocaine, local anesthetic was ?? administered to the access site(s). 4. Left heart catheterization. A 5 FR Dennis catheter was successfully ?? advanced across the aortic valve to the left ventricle under ?? fluoroscopic guidance. Resting hemodynamics were obtained. ?? Post-ventriculography LV pressure was obtained. The catheter was ?? gradually withdrawn into the aorta with continuous pressure ?? recording. 5. Right radial artery access. A 6FR/.021 [place] Slender sheath ?? was advanced into the vessel. 6. Selective left coronary angiography. A 5 FR Dennis catheter was ?? advanced into the left coronary vessel ostium under fluoroscopic ?? guidance. Contrast was injected. Images were obtained in multiple ?? projections. 7. Selective right coronary angiography. A 6F WRP catheter was advanced ?? into the right coronary vessel ostium under fluoroscopic guidance. ?? Contrast was injected. Images were obtained in multiple projections. 8. Right radial artery hemostasis. Mechanical compression was applied. STUDY COMPLETION: The estimated blood loss was 10ml. All catheters inserted during the procedure were removed. The patient tolerated the procedure well and was discharged from the lab. There were no complications. ??Contrast: Isovue 70ml (total dose). ??Isovue 130ml (wasted). ??Fluoroscopy time: 7.2min. ??Fluoroscopy dose: ??38.4cGy. CORONARY ARTERIES: The coronary circulation is right dominant. Left main: ??Normal. LAD: ??Minor luminal irregularities. 1st diagonal: ??Minor luminal irregularities. Unchanged. Left circumflex: ??Minor luminal irregularities. Right coronary: ??Minor luminal irregularities. High anterior origin. HEMODYNAMICS: LVEDP 12 There was no gradient across the aortic valve. End diastolic pressure in the left ventricle is normal. + + + LV pressure s/ed ? 120/12 ? + + + Arterial pressure s/d (m) 125/64 (91) + + + * Amended and electronically signed by Jose Joseph Jr., MD 2020-12-04 11:01 Procedure Note Jose Joseph Jr., MD - 12/04/[address] [place] [address] Catheterization Laboratory Study Patient: Deon Villanueva Study Date: 11/22/2020 : 1945 Referring: Claire Lopez Aprn Diagnostic Attending: Jose Joseph Interventional Attending: Jose Joseph Interventional Fellow: eDon Azevedo ATTESTATION: Dr. Deon Prajapati was the initial author of this report. Dr. Jose Joseph was present and supervising for the entire procedure. Dr. Jose Prajapati have reviewed and agreed with the findings of this report. (Report amended ) PROCEDURE PLAN: A diagnostic study was performed without intervention. RESEARCH STUDY: Patient is not enrolled in any research studies. IMPRESSIONS: Mild coronary artery disease. SUMMARY: 1. HPI and indications: Dyspnea. Sinus bradycardia. 2. Coronary arteries: The coronary circulation is right dominant. 3. Left main: Normal. 4. LAD: Minor luminal irregularities. 5. 1st diagonal: Minor luminal irregularities. Unchanged. 6. Left circumflex: Minor luminal irregularities. 7. Right coronary: Minor luminal irregularities. High anterior origin. RECOMMENDATIONS: ACC recommendation: Medical therapy and/or counseling. HISTORY: Dyspnea. Sinus bradycardia. Functional status: Normal LV systolic function; NYHA class III (symptoms with minimal exercise). Risk factors: Hypertension. Dyslipidemia. LABS, PRIOR TESTS, PROCEDURES AND SURGERY: International normalized ratio (INR) of 1.1. Serum potassium (K) of 4.8 mEq/l. Serum creatinine (current admission) of 1.07 mg/dl. Blood urea nitrogen of 22 mg/dl. Platelet count of 315 th/ul. Hematocrit of 43.7 %. Hemoglobin (pre-procedure) of 13.9 g/dl. STUDY DATA: Study status: Cardiac cath: elective. Location: Catheterization laboratory. Sex: male. Patient is 75yr old. Height: 182.9cm. Weight: 102.9kg. BSA: 2.31m^2. Procedures performed: Left heart catheterization. Right radial artery access. Left coronary angiography. Right coronary angiography. ANESTHESIA: Conscious sedation by cardiology staff. PROCEDURE: 1. Initial setup. The patient was brought to the laboratory in the fasting state. A baseline ECG was recorded. Surface ECG leads, automatic cuff blood pressure measurements, and pulse oximetric signals were monitored. 2. Skin preparation. The planned puncture sites were prepped with chlorhexidine and draped in the usual sterile manner. 3. Local anesthesia. Using 2% Lidocaine, local anesthetic was administered to the access site(s). 4. Left heart catheterization. A 5 FR Dennis catheter was successfully advanced across the aortic valve to the left ventricle under fluoroscopic guidance. Resting hemodynamics were obtained. Post-ventriculography LV pressure was obtained. The catheter was gradually withdrawn into the aorta with continuous pressure recording. 5. Right radial artery access. A 6FR/.021 [place] Slender sheath was advanced into the vessel. 6. Selective left coronary angiography. A 5 FR Dennis catheter was advanced into the left coronary vessel ostium under fluoroscopic guidance. Contrast was injected. Images were obtained in multiple projections. 7. Selective right coronary angiography. A 6F WRP catheter was advanced into the right coronary vessel ostium under fluoroscopic guidance. Contrast was injected. Images were obtained in multiple projections. 8. Right radial artery hemostasis. Mechanical compression was applied. STUDY COMPLETION: The estimated blood loss was 10ml. All catheters inserted during the procedure were removed. The patient tolerated the procedure well and was discharged from the lab. There were no complications. Contrast: Isovue 70ml (total dose). Isovue 130ml (wasted). Fluoroscopy time: 7.2min. Fluoroscopy dose: 38.4cGy. CORONARY ARTERIES: The coronary circulation is right dominant. Left main: Normal. LAD: Minor luminal irregularities. 1st diagonal: Minor luminal irregularities. Unchanged. Left circumflex: Minor luminal irregularities. Right coronary: Minor luminal irregularities. High anterior origin. HEMODYNAMICS: LVEDP 12 There was no gradient across the aortic valve. End diastolic pressure in the left ventricle is normal. + + + LV pressure s/ed 120/12 + + + Arterial pressure s/d (m) 125/64 (91) + + + * Amended and electronically signed by Jose Joseph Jr., MD 2020-12-04 11:01 Claire Lopez NP CARDIAC CATH ORDERAB LES * PROTIME (11/22/2020 10:14 EDT) I.N.R. 1.1 0.9 - 1.1 Ratio 11/22/2020 10:38 [facility] Pro Time 12.4 10.4 - 12.6 secs 11/22/2020 10:38 [facility] Blood VENOUS BLOOD / Unknown Venipuncture / Unknown 11/22/2020 10:14 EDT 11/22/2020 10:[address] [facility]ORATORY [facility] - 11/22/2020 10:38 EDT Moderate Intensity Coumadin INR = 2.0-3.0 Adjustments in anticoagulant therapy dose should be based on the INR and NOT on the Protime. Malik Irving MD HEMATOLOGY & PF4 ORD ERABLES [facility] [address] [place] [address] * (ABNORMAL) COMPLETE BLOOD COUNT (11/22/2020 10:14 EDT) WBC 7.59 4.00 - 10.40 K/cmm 11/22/2020 10:30 EDT [facility] RBC 4.86 4.36 - 5.78 M/cmm 11/22/2020 10:30 [facility] Hemoglobin 13.9 13.8 - 17.3 gm/dL 11/22/2020 10:30 [facility] HCT 43.7 39.5 - 50.2 % 11/22/2020 10:30 [facility] MCV 90 81 - 95 fl 11/22/2020 10:30 [facility] MCH 28.6 27.6 - 33.0 pg 11/22/2020 10:30 [facility] MCHC 31.8(L) 32.8 - 36.4 gm/dL 11/22/2020 10:30 [facility] RDW-CV 18.4(H) <14.2 % 11/22/2020 10:30 [facility] RDW-SD 58.2(H) <46.0 fl 11/22/2020 10:30 [facility] PLT 315 141 - 377 K/cmm 11/22/2020 10:30 [facility] MPV 11.8 9.5 - 12.7 fl 11/22/2020 10:30 [facility] Blood VENOUS BLOOD / Unknown Venipuncture / Unknown 11/22/2020 10:14 EDT 11/22/2020 10:18 EDT Malik Irving MD HEMATOLOGY & PF4 ORD ERABLES Performing Organization Address City/[facility] Co de Phone Number [facility] [address] [place] [address] * ELECTROLYTES (11/22/2020 10:14 EDT) Sodium 143 136 - 145 mEq/L 11/22/2020 10:38 EDT [facility] Potassium 4.8 3.5 - 5.0 mEq/L 11/22/2020 10:38 EDT [facility] Chloride 106 96 - 110 mEq/L 11/22/2020 10:38 EDT [facility] CO2 Total 25 22 - 32 mEq/L 11/22/2020 10:38 EDT [facility] Blood VENOUS BLOOD / Unknown Venipuncture / Unknown 11/22/2020 10:14 EDT 11/22/2020 10:18 EDT Malik Irving MD CHEMISTRY & BLOOD GA S ORDERABLES Performing Organization Address [facility] Co de Phone Number [facility] [address] [place] [address] * CREATININE (11/22/2020 10:14 EDT) Creatinine 1.07 0.66 - 1.25 mg/dL 11/22/2020 10:38 EDT [facility] eGFR 67 >60 mL/min/1.7 3m2 11/22/2020 10:38 EDT [facility] Comment:eGFR calculated noa acosta CKD-EPI equation for non- Americans. Multiply eGFR by 1.16 for patients. Blood VENOUS BLOOD / Unknown Venipuncture / Unknown 11/22/2020 10:14 EDT 11/22/2020 10:18 EDT Malik Irving MD CHEMISTRY & BLOOD GA S ORDERABLES Performing Organization Address City/[facility]/ZIP Co de Phone Number [facility] [address] [place] [address] * BUN (11/22/2020 10:14 EDT) BUN 22 10 - 26 mg/dL 11/22/2020 10:38 EDT [facility] Blood VENOUS BLOOD / Unknown Venipuncture / Unknown 11/22/2020 10:14 EDT 11/22/2020 10:18 EDT Malik Irving MD CHEMISTRY & BLOOD GA S ORDERABLES [facility] [address] [place] [address] * EKG 12-LEAD (11/22/2020 10:03 EDT) 11/22/2020 10:0 3 EDT Narrative [facility] EKG - 11/23/2020 16:27 EDT ? [facility] ? Test Date: ?2020-11-22 Pat Name: ? DEON VILLANUEVA ?Department: ?? CVU ? Room: ? CL Gender: ? Male ? Chemical Recovery Operator: ?? [id number] : ?1945 ? Requested By: BARRY CHAVES Order Number: [id number] ? Fernanda FUCHS: ?? SCARLETT JIN MD ? Measurements Intervals ?Ashley ? Rate: ? 62 ? P: ?261 KS: ? 239 ?QRS: ?53 QRSD: ? 92 ? T: ?59 QT: ? 442 ? QTc: ?451 ? Interpretive Statements ELECTRONIC ATRIAL PACEMAKER ABNORMAL RHYTHM ECG I reviewed the tracing and have either agreed or edited the findings in this report. Electronically Signed On 11-23-2020 16:27:49 EDT by SCARLETT JIN MD. Procedure Note Scarlett Jin MD - 11/23/[address] [facility] Test Date: 2020-11-22 Pat Name: DEON VILLANUEVA Department: CVU Room: Gender: Male Chemical Recovery Operator: [id number] : 1945 Requested By: BARRY CHAVES Order Number: [id number] Reading MD: SCARLETT JIN MD Measurements Intervals Ashley Rate: 62 P: 261 KS: 239 QRS: 53 QRSD: 92 T: 59 QT: 442 QTc: 451 Interpretive Statements ELECTRONIC ATRIAL PACEMAKER ABNORMAL RHYTHM ECG I reviewed the tracing and have either agreed or edited the findings inthis report. Electronically Signed On 11-23-2020 16:27:49 EDT by SCARLETT SANTO. Malik Irving MD CARDIAC ECG ORDERABL ES [facility] EKG documented in this encounter Visit Diagnoses Diagnosis Exertional chest pain- Primary Chest pain, unspecified Exertional chest pain Chest pain, unspecified documented in this encounter Admitting Diagnoses Diagnosis Exertional chest pain Chest pain, unspecified documented in this encounter Administered Medications Inactive Administered Medications - up to 3 most recent administrations Medication Order MAR Action Action Date Dose Rate Site acetaminophen (TYLENOL) tablet 650 mg 650 mg, oral, EVERY 4 HOURS PRN, Starting on Fri11/22/20 at 1141, Until Fri11/22/20 at 1733, Pain, Routine, Release Given 11/22/2020 15:11 EDT 650 mg fentaNYL citrate (PF) 50 mcg/mL injection 1 dose, Starting on Fri11/22/20 at 1041, Until Fri11/22/20 at 1733 fentaNYL citrate (PF) injection PRN, Starting on Fri11/22/20 at 1112, Until Fri11/22/20 at 1138, Routine, Intraprocedure Given 11/22/2020 11:12 EDT 25 mcg heparin 1,000 unit/mL injection 1 dose, Starting on Fri11/22/20 at 1041, Until Fri11/22/20 at 1733 iopamidoL (ISOVUE-370) injection PRN, Starting on Fri11/22/20 at 1138, Until Fri11/22/20 at 1138, Routine, Intraprocedure Given 11/22/2020 11:38 EDT 70 mL lidocaine 20 mg/mL (2 %) injection 1 dose, Starting on Fri11/22/20 at 1041, Until Fri11/22/20 at 1733 midazolam (PF) (VERSED) 1 mg/mL injection 1 dose, Starting on Fri11/22/20 at 1041, Until Fri11/22/20 at 1733 midazolam (PF) (VERSED) injection PRN, Starting on Fri11/22/20 at 1112, Until Fri11/22/20 at 1138, Routine, Intraprocedure Given 11/22/2020 11:12 EDT 1 mg nitroglycerin 100 mcg/mL syringe 1 dose, Starting on Fri11/22/20 at 1041, Until Fri11/22/20 at 1733 sodium chloride 0.9 % (NS) infusion 30 mL/hr, intravenous, CONTINUOUS, Starting on Fri11/22/20 at 1015, Until Fri11/22/20 at 1733, Routine, Preprocedure Rate Change 11/22/2020 14:17 EDT 104 mL/hr 104 mL/hr Rate Change 11/22/2020 11:52 EDT 30 mL/hr 30 mL/hr sodium chloride 0.9 % (NS) infusion 3 mL/kg/hr ? 104.2 kg (312.6 mL/hr), intravenous, CONTINUOUS, Starting on Fri11/22/20 at 1015, Until Fri11/22/20 at 1125, Routine, Preprocedure New Bag 11/22/2020 10:26 EDT 3 mL/kg/hr 312.6 mL/hr sodium chloride 0.9 % (NS) infusion 1 mL/kg/hr ? 104.2 kg (104.2 mL/hr), intravenous, CONTINUOUS, Starting on Fri11/22/20 at 1126, Until Fri11/22/20 at 1725, Routine, Preprocedure verapamil (ISOPTIN) 2.5 mg/mL injection 1 dose, Starting on Fri11/22/20 at 1041, Until Fri11/22/20 at 1733 documented in this encounter Active and Recently Administered Medications Times are shown in EDT. Continuous Medication Order 11/20/2020 11/21/2020 11/22/2020 sodium chloride 0.9 % (NS) infusion 30 mL/hr, intravenous, CONTINUOUS, Starting on Fri11/22/20 at 1015, Until Fri11/22/20 at 1733, Routine, Preprocedure 1015 (Canceled Entry - Provider: Batch Job User Admin - Comment: Automatically canceled at discontinue of medication order)1152 (Rate Change - Provider: Adam Florian RN)1417 (Rate Change - Provider: Anastasiya Steve RN) sodium chloride 0.9 % (NS) infusion(Linked Group 1) 3 mL/kg/hr ? 104.2 kg (312.6 mL/hr), intravenous, CONTINUOUS, Starting on Fri11/22/20 at 1015, Until Fri11/22/20 at 1125, Routine, Preprocedure 1026 (New Bag - Prov ider: Kristina Rivera RN - Comment: rate set at 125/hr) sodium chloride 0.9 % (NS) infusion(Linked Group 1) 1 mL/kg/hr ? 104.2 kg (104.2 mL/hr), intravenous, CONTINUOUS, Starting on Fri11/22/20 at 1126, Until Fri11/22/20 at 1725, Routine, Preprocedure 1126 (Canceled Entry - Provider: Batch Job User Admin - Comment: Automatically canceled at discontinue of medication order) PRN Medication Order 11/20/2020 11/21/2020 11/22/2020 acetaminophen (TYLENOL) tablet 650 mg 650 mg, oral, EVERY 4 HOURS PRN, Starting on Fri11/22/20 at 1141, Until Fri11/22/20 at 1733, Pain, Routine, Release 1511 (Given - Provid er: Jeannette Hernandez RN) fentaNYL citrate (PF) injection (CANCELED) PRN, Starting on Fri11/22/20 at 1112, Until Fri11/22/20 at 1138, Routine, Intraprocedure 1112 (Given - Provid er: Ladonna Hernandez RN) iopamidoL (ISOVUE-370) injection (CANCELED) PRN, Starting on Fri11/22/20 at 1138, Until Fri11/22/20 at 1138, Routine, Intraprocedure 1138 (Given - Provid er: Jose Joseph Jr., MD) midazolam (PF) (VERSED) injection (CANCELED) PRN, Starting on Fri11/22/20 at 1112, Until Fri11/22/20 at 1138, Routine, Intraprocedure 1112 (Given - Provid er: Ladonna Hernandez RN) No Frequency Medication Order 11/20/2020 11/21/2020 11/22/2020 fentaNYL citrate (PF) 50 mcg/mL injection 1 dose, Starting on Fri11/22/20 at 1041, Until Fri11/22/20 at 1733 heparin 1,000 unit/mL injection 1 dose, Starting on Fri11/22/20 at 1041, Until Fri11/22/20 at 1733 lidocaine 20 mg/mL (2 %) injection 1 dose, Starting on Fri11/22/20 at 1041, Until Fri11/22/20 at 1733 midazolam (PF) (VERSED) 1 mg/mL injection 1 dose, Starting on Fri11/22/20 at 1041, Until Fri11/22/20 at 1733 nitroglycerin 100 mcg/mL syringe 1 dose, Starting on Fri11/22/20 at 1041, Until Fri11/22/20 at 1733 verapamil (ISOPTIN) 2.5 mg/mL injection 1 dose, Starting on Fri11/22/20 at 1041, Until Fri11/22/20 at 1733 Linked Groups Order Group 1: sodium chloride 0.9 % (NS) infusionJump to med 3 mL/kg/hr ? 104.2 kg (312.6 mL/hr), intravenous, CONTINUOUS, Starting on Fri11/22/20 at 1015, Until Fri11/22/20 at 1125, Routine, Preprocedure Followed by sodium chloride 0.9 % (NS) infusionJump to med 1 mL/kg/hr ? 104.2 kg (104.2 mL/hr), intravenous, CONTINUOUS, Starting on Fri11/22/20 at 1126, Until Fri11/22/20 at 1725, Routine, Preprocedure documented in this encounter Orders Medications Ordered That Ramon ht Not Have Been Administered Count Last Ordered Date First Ordered Date fentaNYL citrate (PF) 50 mcg/mL injection 1 11/22/2020 heparin 1,000 unit/mL injection 1 lidocaine (PF) 10 mg/mL (1 % ) injection 2 mg 1 11/22/2020 lidocaine 20 mg/mL (2 %) injection 1 2020 midazolam (PF) (VERSED) 1 mg/mL injection 1 11/22/2020 nitroglycerin 100 mcg/mL syringe 1 11/23/19 21 sodium chloride 0.9 % (NS) infusion 1 11/22 verapamil (ISOPTIN) 2.5 mg/mL injection 1 0 11/22/2020 Nursing Count Last Ordered Date First Orde red Date PATIENT AT LOW RISK FOR VTE: RISK OF MECHANICAL PROPHYLAXIS OUTWEIGHS 1 11/22/2020 PATIENT AT LOW RISK FOR VTE: RISK OF PHARMACOLOGIC PROPHYLAXIS OUTWEIG 1 11/22/2020 Discharge Count Last Ordered Date First Orde red Date DISCHARGE PATIENT 1 11/22/2020 documented in this encounter Care Teams Securities Counselor Relationship Specialty Start Date End Date Layne Cai MD [address] [place] [address] PCP - General 04/05/20 12/16/23 Claire Lopez NP [address] [place] [address] [phone] Cardiovascular Disease 11/22/20 documented as of this encounter
--- OUTSIDE RECORDS SUMMARY | 2024-01-09 01:50 | XMS_ITS | Encounter Summary ---
Author Organization [facility] Address [address] [place] [address] Care Team Providers Care Engine Head Repairer Name Role Phone Layne Cai MD Primary Care Provider [phone] Claire Lopez NP Unavailable [phone] Reason for Visit * Auth/Cert Specialty Diagnoses / Procedures Referred By Marissa carney Referred To Contact Diagnoses Exertional chest pain Exertional chest pain [R07.9] Cupid, Child Protective Services Social Worker Referral ID Status Reason Start Date Expiration Date Visits Re quested Visits Authorized [id number] 11/09/2020 1 1 Encounter Details Date Type Department Care Team (Late st Contact Info) Description 11/22/2020 9:36 EDT - 11/22/2020 15:28 EDT Hospital Encounter [facility] Cardiovascular Unit [address] [place] [address] Jose Joseph MD 111 [facility], Level 1 [place] [phone] Exertional chest pain Discharge Disposition: Home or Self Care Social [...] - Temperature 36.1 ??C (97 ??F) 11/22/2020 143 5 EDT Respiratory Rate 16 11/22/2020 1435 EDT Oxygen Saturation 97% 11/22/2020 143 5 EDT Inhaled Oxygen Concentration - - Weight [...] performed by Dr Joseph . Phone # [phone] You have had a Cardiovascular Catheterization performed [...] Code Departure Means Destination Home or Self Long-Term documented in this encounter Progress Notes * [...] given to Octavia hernandez rn. * Kristina Rivera, TRAM - 11/22/2020 1002 EDT Deon Villanueva arrived to the Cardiovascular Unit via ambulation. Patient alert and oriented x3. Transfers to stretcher independently. Patient greeted and identified per [facility] medical center policy. Allergies and [...] chest pain. ? Myocardial bridging [id number] - [address] [address] Cardiac History: Stress Test? No Reason for [...] instructed to register on the 3rd floor [facility]. Transportation Issues: No Patient/family instructed that they will need a designated motor bus driver if they are discharged on the dayof the procedure. Medications: Medication list: Patient/family instructed to bring medication list with them on the day of the procedure. Anticoagulants/Antiplatelets: Takes Aspirin 81 mg daily Anti-Anginal meds: B-Blockers and Long acting Nitrates LIN FLORES RN * Lin Flores RN - 11/15/2020 1214 EDT Images from the original note were not included. [facility] Cardiology Services [address] [place] [id number] Octavio Dacosta, Here is important information regarding [...] go home you will need a designated motor bus driver, or a responsible adult to accompany [...] or you may prefer to have your motor bus driver drop you off at the front [...] waiting room. Please check in with the hotel receptionist and they will notify of your [...] call anyone listed below with questions. Cath Realty Specialist - [phone] Advanced Testing Nurse- [phone] ~ Lin Patients & Visitors Information [email or web address] documented in this encounter H&P Notes * Deon Azevedo MD - 11/22/2020 1056 EDT CARDIOLOGY ADMISSION H&P Admit Date: 11/22/2020 PCP: Layne Cai Chief Complaint: SOB and PENDLETON HPI: Deon Villanueva is a 75 y.o. male with a PMHx significant for CAD, HTN, HLD, SSS (s/p PPM), inflammatory polyarthropathy (on MTX), benign neoplasm of the colon, PV, CKD 3, and BPH presenting for [facility]. Patient follows with Dr. Chawla with noted generator change 06/27/2020 and follow-up for complaintsof exertional CP, S OB, diaphoresis. Symptoms noted over the past few months occurring both at restand with exertion. Underwent nuclear stress test at [facility] which had been reportedly normal. ROS: Full 10 point system obtained; negative unless indicated in the HPI Relevant prior Cardiac Studies: [facility]: 04/08/2012: Left Main Artery: The left [...] reviewed. EKG: Reviewed Labs: WBC/Hgb/Hct/Plts: 7.59/13.9/43.7/315 (11/22 101) PT/INR/PTT: 12.4/1.1/-- (11/22 101) BMP: Recent Labs 11/22/20 1014 NA 143 K 4.8 CL 106 CO2 25 BUN 22 CREATININE 1.07 Assessment/Plan: 75 y.o. male with a history of CAD, HTN, HLD, SSS (s/p PPM), inflammatory polyarthropathy (on MTX),benign neoplasm of the colon, PV, CKD 3, and BPH presenting for [facility]. Plan: Left heart catheterization to evaluate [...] artery Procedure: He was brought to [facility] Cardiac Catheterization Laboratory for the procedure: [...] 4 weeks Jose Joseph Jr., MD PagerNumber: [phone] 11/22/2020 11:34 documented in this encounter Plan of Treatment Upcoming Encounters Date Type Department Care Team (Late st Contact Info) Description 04/09/2024 16:30 EDT Office Visit [facility] Cancer Center Hematology & Oncology - [address] [address] Erin Barillas MD [address] [place] [address], [address] 2 [place] [phone] 05/18/2024 10:00 EST Office Visit [facility] Rheumatology & Immunology - [facility] [address] [facility], [place] [phone] Tod Perez NP 111 [facility], [facility], Level [address] [place] [phone] 06/03/2024 9:00 EST Ancillary Procedure [facility] [address] [place] [address], [place] [phone] 06/03/2024 9:00 EST Office Visit [facility] Cardiology Clinic [address] [facility] [place], [place] [address] Claire Lopez NP [address] [facility] [address] [place] [address] documented as of this encounter [...] EDT) 11/27/2020 14:0 3 EDT Scan 2 Oracle Analyst PROCEDURE/MINOR JHOAN GICAL ORDERABLES * ECG REPORT - SCANNED (11/27/2020 14:03 EDT) 11/27/2020 14:0 3 EDT Scan 2 Oracle Analyst PROCEDURE/MINOR JHOAN GICAL ORDERABLES * ECG REPORT - SCANNED (11/23/2020 16:32 EDT) 11/23/2020 16:3 2 EDT Scan 2 Oracle Analyst PROCEDURE/MINOR JHOAN GICAL ORDERABLES * CORONARY ANGIOGRAM (11/22/2020 11:38 EDT) Anatomical Region Laterality Modality Industrial Ecologist 11/22/2020 10:5 5 EDT Narrative 11/28/2020 12:28 EDT Cardiology [address] [place] [address] Catheterization Laboratory Study Patient: Deon Villanueva ? Study Date: ? 11/22/2020 ? Accession #: ?[id number] : ? 1945 Referring: Claire Lopez Aprn Diagnostic Attending: ??Jose Joseph Interventional Attending: ?? Jose Joseph Interventional Fellow: [...] 5. Right radial artery access. A 6FR/.021 [place] Sheath Slender sheath ?? was advanced into [...] Jose Joseph Jr., MD - 12/04/[address] [place] [address] Catheterization Laboratory Study Patient: Deon Villanueva Study Date: 11/22/2020 : 1945 Referring: Claire Lopez Aprn Diagnostic Attending: Jose Joseph Interventional Attending: Jose Joseph Interventional Fellow: Deon Azevedo ATTESTATION: Dr. Deon Prajapati was the initial author of this report. Dr. Jose Joseph was present and supervising for the entire procedure. Victorina, Dr. Jose Joseph have reviewed and agreed [...] 5. Right radial artery access. A 6FR/.021 [place] Sheath Slender sheath was advanced into the [...] 1.1 0.9 - 1.1 Ratio 11/22/2020 10:38 EDT [facility] Pro Time 12.4 10.4 - 12.6 secs 11/22/2020 10:38 EDT [facility] Blood VENOUS BLOOD / Unknown Venipuncture / Unknown 11/22/2020 10:14 EDT 11/22/2020 10:18 EDT Narrative [facility] - 11/22/2020 10:38 EDT Moderate Intensity Coumadin INR = 2.0-3.0 Adjustments in anticoagulant therapy dose should be based on the INR and NOT on the Protime. Malik Irving MD HEMATOLOGY & PF4 ORD ERABLES [facility] [address] [place] [address] * (ABNORMAL) COMPLETE BLOOD COUNT (11/22/2020 10:14 EDT) WBC 7.59 4.00 - 10.40 K/cmm 11/22/2020 10:30 EDT [facility] RBC 4.86 4.36 - 5.78 M/cmm 11/22/2020 10:30 T [facility] Hemoglobin 13.9 13.8 - 17.3 gm/dL 11/22/2020 10:30 EDT [facility] HCT 43.7 39.5 - 50.2 % 11/22/2020 10:30 [facility] MCV 90 81 - 95 fl 11/22/2020 10:30 [facility] MCH 28.6 27.6 - 33.0 pg 11/22/2020 10:30 [facility] MCHC 31.8(L) 32.8 - 36.4 gm/dL 11/22/2020 10:30 T [facility] RDW-CV 18.4(H) <14.2 % 11/22/2020 10:30 [facility] RDW-SD 58.2(H) <46.0 fl 11/22/2020 10:30 [facility] PLT 315 141 - 377 K/cmm 11/22/2020 10:30 [facility] MPV 11.8 9.5 - 12.7 fl 11/22/2020 10:30 [facility] Blood VENOUS BLOOD / Unknown Venipuncture / Unknown 11/22/2020 10:14 EDT 11/22/2020 10:18 EDT Malik Irving MD HEMATOLOGY & PF4 ORD ERABLES [facility] [address] [place] [address] * ELECTROLYTES (11/22/2020 10:14 EDT) Sodium 143 136 - 145 mEq/L 11/22/2020 10:38 EDT [facility] Potassium 4.8 3.5 - 5.0 mEq/L 11/22/2020 10:38 EDT [facility] Chloride 106 96 - 110 mEq/L 11/22/2020 10:38 EDT [facility] CO2 Total 25 22 - 32 mEq/L 11/22/2020 10:38 EDT [facility] Blood VENOUS BLOOD / Unknown Venipuncture / Unknown 11/22/2020 10:14 EDT 11/22/2020 10:18 EDT Malik Irving MD CHEMISTRY & BLOOD GA S ORDERABLES Performing Organization Address City/[facility] Co de Phone Number [facility] [address] [place] [address] * CREATININE (11/22/2020 10:14 EDT) Creatinine 1.07 0.66 - 1.25 mg/dL 11/22/2020 10:38 EDT [facility] eGFR 67 >60 mL/min/1.7 3m2 11/22/2020 10:38 EDT [facility] Comment:eGFR calculated noa acosta CKD-EPI equation for non- Americans. Multiply eGFR by 1.16 for patients. Blood VENOUS BLOOD / Unknown Venipuncture / Unknown 11/22/2020 10:14 EDT 11/22/2020 10:18 EDT Malik Irving MD CHEMISTRY & BLOOD GA S ORDERABLES [facility] [address] [place] [address] * BUN (11/22/2020 10:14 EDT) BUN 22 10 - 26 mg/dL 11/22/2020 10:38 EDT [facility] Blood VENOUS BLOOD / Unknown Venipuncture / Unknown 11/22/2020 10:14 EDT 11/22/2020 10:18 EDT Malik Irving MD CHEMISTRY & BLOOD GA S ORDERABLES [facility] [address] [place] [address] * EKG 12-LEAD (11/22/2020 10:03 EDT) 11/22/2020 10:0 3 EDT Narrative [facility] EKG - 11/23/2020 16:27 EDT ? [facility] ? Test Date: ?2020-11-22 Pat Name: ? DEON VILLANUEVA ?Department: ?? CVU ? Room: ? CL Gender: ? Male ? Lead Dental Assistant: ?? [id number] : ?1945 ? Requested By: BARRY CHAVES Order Number: [id number] ? Fernanda FUCHS: ?? SCARLETT JIN MD ? Measurements Intervals ?[place] ? Rate: ? 62 ? P: ?261 GA: ? 239 ?QRS: ?53 QRSD: ? 92 ? T: ?59 QT: ? 442 ? QTc: ?451 ? Interpretive Statements ELECTRONIC ATRIAL PACEMAKER ABNORMAL RHYTHM ECG I reviewed the tracing and have either agreed or edited the findings in this report. Electronically Signed On 11-23-2020 16:27:49 EDT by SCARLETT JIN MD. Procedure Note Scarlett Jin MD - 11/23/2020 [facility] Test Date: 2020-11-22 Pat Name: DEON VILLANUEVA Department: CVU Room: Gender: Male Lead Dental Assistant: [id number] : 1945 Requested By: BARRY CHAVES Order Number: [id number] Reading MD: SCARLETT JIN MD Measurements Intervals [place] Rate: 62 P: 261 GA: 239 QRS: 53 QRSD: 92 T: 59 QT: 442 QTc: 451 Interpretive Statements ELECTRONIC ATRIAL PACEMAKER ABNORMAL RHYTHM ECG I reviewed the tracing and have either agreed or edited the findings inthis report. Electronically Signed On 11-23-2020 16:27:49 EDT by SCARLETT SANTO. Malik Irving MD CARDIAC ECG ORDERABL ES [facility] EKG documented in this encounter Visit Diagnoses [...] citrate (PF) 50 mcg/mL injection 1 11/22/2020 fentaNYL citrate (PF) injection 1 1 heparin 1,000 unit/mL injection 1 1 iopamidoL (ISOVUE-370) injection 1 11/23/19 21 lidocaine (PF) 10 mg/mL (1 % ) injection 2 mg 1 11/22/2020 lidocaine 20 mg/mL (2 %) injection 1 2020 midazolam (PF) (VERSED) 1 mg/mL injection 1 11/22/2020 midazolam (PF) (VERSED) injection 1 021 nitroglycerin 100 mcg/mL syringe 1 11/23/19 21 [...] 11/22/2020 documented in this encounter Care Teams Engine Head Repairer Relationship Specialty Start Date End Date Layne Cai MD [address] [place] [phone] PCP - General 04/05/20 12/16/23 Claire Lopez NP [address] [place] [address] [address] [place] [phone] Cardiovascular Disease 11/22/20 documented as of this encounter
--- OUTSIDE RECORDS SUMMARY | 2024-01-09 01:50 | XMS_ITS | Encounter Summary ---
Author Organization [facility] Address [address] [place] [address] Care Team Providers Care Semi Automatic Sewing Machine Operator Name Role Phone Layne Cai MD Primary Care Provider [phone] Reason for Visit * Reason Comments Telemedicine Video Visit Encounter Details Date Type Department Care Team (Late st Contact Info) Description 09/07/2020 10:00 EDT Telemedicine [facility] Center Hematology & Oncology - [facility] [address] [place], [place] [phone] Reshma Hilario, PROFESSIONAL NURSING ASSISTANT [address] [facility], Level 2 [place] [phone] Polycythemia vera (HCC-CMS) (Primary Dx) Social History [...] this encounter Progress Notes * Reshma Hilario APRN - 09/07/2020 1000 EDT [...] health care. The visit was conducted via Pacinian, Kamelio arting at 10:00 and ending at 10:22. TELEMEDICINE [...] He reports that he has been feeling well. He has not noticed any side effects with [...] evening. SOCIAL HISTORY: Retired. Worked for the [employer]. Former smoker with 20 pack year smoking history, quit 40 years ago. 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 Family history: No family history [...] well tolerated. He receives intermittent phlebotomy at [facility]. His most recent hematocrit levels have been>45, and not meeting goal. We will schedule him for therapeutic phlebotomy next week. He remainstolerating hydroxyurea well with no side effects or toxicity. He'll continue to have labs monitoredevery 4 weeks locally, and will follow-up with us [...] [facility] - [address] [phone] Erin Barillas MD [address] [place] [address] 2 [place] [phone] 05/18/2024 10:00 EST Office Visit [facility] Rheumatology & Immunology [address] [address] Tod Perez NP [address] [place] [address], [facility] 5 [place] [phone] 06/03/2024 9:00 EST Ancillary Procedure [facility] [address] [place] [address] [phone] 06/03/2024 9:00 EST Office Visit [facility] [address] [place] [address] [phone] Claire Lopez NP [address] [place] [address]-[address] [place] [phone] documented as of this encounter Visit Diagnoses Diagnosis Polycythemia vera (HCC-CMS)- Primary documented in this encounter Care Teams Semi Automatic Sewing Machine Operator Relationship Specialty Start Date End Date Layne Cai MD [address] [place] [phone] PCP - General 04/05/20 12/16/23 documented as of this encounter
--- OUTSIDE RECORDS SUMMARY | 2024-01-09 01:50 | XMS_ITS | Encounter Summary ---
Author Organization [facility] Address [address] [place] [address] Care Team Providers Care Lockstitch Front Maker Name Role Phone Layne Cai MD Primary Care Provider [phone] Claire Lopez DINING ROOM ATTENDANT CAFETERIA Unavailable [phone] Encounter Details Date Type Department Care Team (Latest Contact Info) Description 11/22/2020 Travel Social History Tobacco Use [...] [place] [facility] - [address] [phone] Erin Barillas MD [address] [place] [address] 2 [place] [phone] 05/18/2024 10:00 EST Office Visit [facility] Rheumatology & Immunology [address] [phone] Tod Perez NP [address] [place] [address] 5 [place] [phone] 06/03/2024 9:00 EST Ancillary Procedure [facility] [address] [place] [phone] 06/03/2024 9:00 EST Office Visit [facility] [address] [place] [address] [phone] Claire Lopez NP [address] [place] [phone] documented as of this encounter Visit Diagnoses Not on filedocumented in this encounter Care Teams Lockstitch Front Maker Relationship Specialty Start Date End Date Layne Cai MD [address] [place] [phone] PCP - General 04/05/20 12/16/23 Claire Lopez NP [address] [place] [phone] Cardiovascular Disease 11/22/20 documented as of this encounter
--- OUTSIDE RECORDS SUMMARY | 2024-01-09 01:50 | XMS_ITS | Encounter Summary ---
Author Organization [facility] Address [address] [place] [address] Care Team Providers Care Nnp Name Role Phone Layne Cai MD Primary Care Provider [phone] Encounter Details Date Type Department Care Team (Late st Contact Info) Description 09/07/2020 Orders Only [facility] Cancer Center Hematology & Oncology - [facility] [address] [place], [place] [phone] Alisa Powell, RN Polycythemia vera ([facility]) (Primary Dx) Social History Tobacco Use Types [...] Info) Description 04/09/2024 16:30 EDT Office Visit [facility] Hematology & Oncology [address] [phone] Erin Barillas MD [address] [place] [address] 2 [place] [phone] 05/18/2024 10:00 EST Office Visit [facility] Rheumatology & Immunology [address] [phone] Tod Perez NP [address] [place] [address] 5 [place] [phone] 06/03/2024 9:00 EST Ancillary Procedure [facility] Cardiology Clinic [address] [place] [phone] 06/03/2024 9:00 EST Office Visit [facility]iology Clinic [address] [place] [address] [phone] Claire Lopez NP 130 [facility]-A [address] [place] [phone] documented as of this encounter Visit Diagnoses Diagnosis Polycythemia vera ([facility])- Primary documented in this encounter Care Teams Nnp Relationship Specialty Start Date End Date Layne Cai MD [address] [place] [phone] PCP - General 04/05/20 12/16/23 documented as of this encounter
--- OUTSIDE RECORDS SUMMARY | 2024-01-09 01:50 | XMS_ITS | Encounter Summary ---
Author Organization [facility] Address [address] [place] [address] Care Team Providers Care Binder Sorter Name Role Phone Layne Cai MD Primary Care Provider [phone] Encounter Details Date Type Department Care Team (Late st Contact Info) Description 08/29/2020 Orders Only [facility] Cancer Center Hematology & Oncology - [facility] [address] [place] [address] Rebeka Espinosa, RN [address] [place] [address] Social History Tobacco Use Types Packs/Day Years [...] Visit [facility] Hematology & Oncology [address] [phone] Erin Barillas MD [address] [place] [address], [facility] 2 [place] [phone] 05/18/2024 10:00 EST Office Visit [facility] Rheumatology & Immunology - [address] [phone] Tod Perez NP [address] [place] [address] 5 [place] [phone] 06/03/2024 9:00 EST Ancillary Procedure [facility] Cardiology Clinic [address] [place] [address] [phone] 06/03/2024 9:00 EST Office Visit [facility] Cardiology Clinic [address] [place] [address] [phone] Claire Lopez NP 130 [facility] MOB-A [address] [place] [phone] documented as of this encounter Visit Diagnoses Not on filedocumented in this encounter Care Teams Binder Sorter Relationship Specialty Start Date End Date Layne Cai MD [address] [place] [phone] PCP - General 04/05/20 12/16/23 documented as of this encounter
--- OUTSIDE RECORDS SUMMARY | 2024-01-09 01:50 | XMS_ITS | Encounter Summary ---
Author Organization [facility] Address [address] [place] [address] Care Team Providers Care Finishing Operator Name Role Phone Layne Cai MD Primary Care Provider [phone] Encounter Details Date Type Department Care Team (Late st Contact Info) Description 10/23/2020 Orders Only [facility] Cardiology Clinic [address] [place], [place] [phone] Ryann Venegas MA Sinus node dysfunction (HCC-CMS) [...] [facility] Hematology & Oncology - [address] [phone] Erin Barillas MD 111 [facility], [facility] 2 [place] [phone] 05/18/2024 10:00 EST Office Visit [facility] Rheumatology & Immunology - [address] [phone] Tod Perez NP [address] [place] [address], [facility] 5 [place] [phone] 06/03/2024 9:00 EST Ancillary Procedure [facility] Cardiology Clinic [address] [place] [address] [phone] 06/03/2024 9:00 EST Office Visit [facility] Cardiology Clinic [address] [place] [address] [phone] Claire Lopez NP [address] [place] [address] MOB-A [address] [place] [phone] documented as of this encounter Procedures Procedure Name Priority Date/Time Associated Diagnosis Comments CARDIAC IMPLANT CHECK - REMOTE MONITOR Routine 10/24/2020 9:31 EDT Sinus node dysfunction (HCC-CMS) documented in this encounter Results * CARDIAC IMPLANT CHECK - REMOTE - PACEMAKER (10/24/2020 9:31 EDT) Anatomical Region Laterality Modality Device Narrative 10/24/2020 9:32 EDT I have reviewed the pacemaker interrogation. ??I agree with the findings. See scanned document for details of remote download. Adrien Hackett APRN Procedure Note Adrien Hackett APRN - 10/24/2020 I have reviewed the pacemaker interrogation. I agree with the findings.See scanned document for details of remote download. Adrien Hackett APRN Adrien Hackett ORIENTOR CV IMPLANTABLE CARDI AC DEVICE documented in this encounter Visit Diagnoses Diagnosis Sinus node dysfunction ([facility])- Primary Sinoatrial node dysfunction documented in this encounter Care Teams Finishing Operator Relationship Specialty Start Date End Date Layne Cai MD [address] [place] [phone] PCP - General 04/05/20 12/16/23 documented as of this encounter
--- OUTSIDE RECORDS SUMMARY | 2024-01-09 01:50 | XMS_ITS | Encounter Summary ---
Author Organization [facility] Address [address] [place] [address] Care Team Providers Care Level Vial Curvature Gauger Name Role Phone Layne Cai MD Primary Care Provider [phone] Encounter Details Date Type Department Care Team (Latest Contact Info) Description 11/19/2020 9:45 EDT Phlebotomy Only [facility] - [employer] [facility] [address] [place] [address] SOB (shortness of breath) Social History Tobacco Use Types Packs/Day Years [...] No 06/01/2020 Cognitive Status Response Date of Assess ent Because of a physical, menta l, or emotional condition, does this person have serious difficulty concentrating, remembering, or making decisions? No 11/24/2017 documented as of this encounter Plan of Treatment Upcoming Encounters Date Type Department Care Team (Late st Contact Info) Description 04/09/2024 16:30 EDT Office Visit [facility] Hematology & Oncology - [address] [phone] Erin Barillas MD [address] [place] [address] 2 [place] [phone] 05/18/2024 10:00 EST Office Visit [facility] Rheumatology & Immunology [address] [phone] Tod Perez NP [address] [place] [address], [facility] 5 [place] [phone] 06/03/2024 9:00 EST Ancillary Procedure [facility] Cardiology Clinic [address] [place] [address] [phone] 06/03/2024 9:00 EST Office Visit [facility] Cardiology Clinic [address] [place] [address] [phone] Claire Lopez NP [address] [place] [address] MOB-A [address] [place] [phone] documented as of this encounter Procedures Procedure Name Priority Date/Time Associated Diagnosis Comments ZZCOVID-19 TEST [facility] PCR Today 11/19/2020 9:26 EDT SOB (shortness of breath) COVID-19 TESTING Routine 11/19/2020 9:26 EDT SOB (shortness of breath) documented in this encounter Results * COVID-19 TEST [facility] PCR (11/19/2020 9:26 EDT) Swab BOTH ANTERIOR NARES / Unknown Swab / Unknown 11/19/2020 9:26 EDT 11/19/2020 9:26 EDT Reid Brown MD MICROBIOLOGY - [facility] ORDERABLES [facility] [address] [place] [address] * COVID-19 TESTING (11/19/2020 9:26 EDT) COVID-19 rt-PCR Result Negative Negative 11/20/2020 15:39 EDT [facility] Comment: This test has not [...] clinical observations, patient history, and epidemiological information. This test was developed and its performance characteristics determined by [facility]. It has not been cleared or approved by the US Food and Drug Administration. FDA does not require this test to go through premarket FDA review. This test is used for clinical purposes. It should not be regarded as investigational or for research. This laboratory is certified under the Clinical Laboratory Improvement Amendments (CLIA) as qualified to perform high complexity clinical laboratory testing. This test is based on the [facility] COVID-19 Emergency Use Authorization (EUA) assay, with minor modification as defined by the FDA Performed on the [employer] 7 Flex RT-PCR System. Performing Lab [facility] 11/20/2020 15:39 EDT [facility] Swab BOTH ANTERIOR NARES / Unknown Swab / Unknown 11/19/2020 9:26 EDT 11/19/2020 9:26 EDT Reid Brown MD MICROBIOLOGY - [facility] ORDERABLES [facility] [address] [place] [address] documented in this encounter Visit Diagnoses Diagnosis SOB (shortness of breath) Shortness of breath documented in this encounter Care Teams Level Vial Curvature Gauger Relationship Specialty Start Date End Date Layne Cai MD [address] [place] [phone] PCP - General 04/05/20 12/16/23 documented as of this encounter
--- OUTSIDE RECORDS SUMMARY | 2024-01-09 01:50 | XMS_ITS | Encounter Summary ---
Author Organization [facility] Address [address] [place] [address] Care Team Providers Care Cell Assembly Pinner Name Role Phone Layne Cai MD Primary Care Provider [phone] Reason for Visit * Reason Onset Date Comments COVID-19 11/15/2020 Encounter Details Date Type Department Care Team (Late st Contact Info) Description 11/15/2020 Telephone [facility] Cardiology - [address] [place] [address] Lia Michaud, [place] [address] COVID-19 Social History Tobacco Use Types Packs/Day Years [...] encounter Miscellaneous Notes * Telephone Encounter - Lia Michaud, RN - 11/15/2020 1211 EDT COVID pre [facility] documented in this encounter Plan of Treatment Upcoming Encounters Date Type Department Care Team (Late st Contact Info) Description 04/09/2024 16:30 EDT Office Visit [facility] [place] Hematology & Oncology - [address] [phone] Erin Barillas MD [address] [place] [address] 2 [place] [phone] 05/18/2024 10:00 EST Office Visit [facility] Rheumatology & Immunology - [address] [phone] Tod Perez NP [address] [place] [address], [facility] 5 [place] [phone] 06/03/2024 9:00 EST Ancillary Procedure [facility] Cardiology Clinic [address] [place] [address] [phone] 06/03/2024 9:00 EST Office Visit [facility] Cardiology Clinic [address] [place] [address] Claire Lopez NP [address] [place] [address]-A [address] [place] [phone] documented as of this encounter Results * COVID-19 TESTING (11/19/2020 9:26 EDT) [facility] Signature COVID-19 rt-PCR Result Negative Negative 11/20/2020 15:39 EDT [facility] Comment: This test [...] developed and its performance characteristics determined by [facility]. It has not been cleared [...] testing. This test is based on the CDC COVID-19 Emergency Use Authorization (EUA) assay, with minor modification as defined by the FDA Performed on the [employer] 7 Flex RT-PCR System. Performing Lab [facility] Lab 11/20/2020 15:39 EDT [facility] Swab BOTH ANTERIOR NARES / Unknown Swab / Unknown 11/19/2020 9:26 EDT 11/19/2020 9:26 EDT Reid Brown MD MICROBIOLOGY - [facility] ORDERABLES [facility] [address] [place] [address] documented in this encounter Visit Diagnoses Diagnosis SOB (shortness of breath)- Primary Shortness of breath documented in this encounter Care Teams Cell Assembly Pinner Relationship Specialty Start Date End Date Layne Cai MD [address] [place] [phone] PCP - General 04/05/20 12/16/23 documented as of this encounter
--- OUTSIDE RECORDS SUMMARY | 2024-01-09 01:50 | XMS_ITS | Encounter Summary ---
Author Organization [facility] Address [address] [place] [address] Care Team Providers Care Cloth Neutralizer Name Role Phone Layne Cai MD Primary Care Provider [phone] Reason for Visit * Reason Onset Date Comments Results 11/10/2020 Encounter Details Date Type Department Care Team (Late st Contact Info) Description 11/10/2020 Telephone [facility] Hematology & Oncology - [facility] [address] [place], [place] [phone] Erin Barillas MD 111 [facility], Level 2 [place] [phone] Results Social History Tobacco Use [...] * Telephone Encounter - Augustina Salazar - 11/10/2020 1016 EDT LABS ENTERED FROM [facility]. Augustina Salazar 11/10/2020 10:16 documented in this encounter Plan of Treatment Upcoming Encounters Date Type Department Care Team (Late st Contact Info) Description 04/09/2024 16:30 EDT Office Visit [facility] Hematology & Oncology [address] 345461 Erin Barillas MD [address] [place] [address] 2 [place] [phone] 05/18/2024 10:00 EST Office Visit [facility] Rheumatology & Immunology [address] 007601 Tod Perez NP [address] [place] [address] 5 [place] [phone] 06/03/2024 9:00 EST Ancillary Procedure [facility] Cardiology Clinic [address] [place] [address] [phone] 06/03/2024 9:00 EST Office Visit [facility] [address] [place] [address] [phone] Claire Lopez NP [address] [place] [address] MOB-A [address] [place] [phone] documented as of this encounter Procedures Procedure Name Priority Date/Time Associated Diagnosis Comments COMPREHENSIVE METABOLIC PANEL (ONCOLOGY USE ONLY-INC MG) Routine 10/19/2020 COMPLETE BLOOD COUNT AND DIFFERENTIAL Routine 10/19/2020 documented in this encounter Results * (ABNORMAL) COMPREHENSIVE METABOLIC PANEL (ONCOLOGY USE ONLY-INC MG) (10/19/2020) Calcium, External 9.1 [facility] CO2, External 28.1 [facility] AST, External 14(A) 15 - 37 [facility] ALT, External 25 [facility] Bilirubin, Total, External 0.5 [facility] Creatinine, External 1.3 [facility] Calculated Calcium, External [facility] Anion Gap, External [facility] Total Protein, External 7.4 [facility] Potassium, External 4.1 [facility] Total Alkaline Phosphatase, External 81 [facility] Albumin, External 4.2 [facility] BUN, External 23(A) 7 - 18 [facility] GFR, Calculated, External 53.53 [facility] Fasting?, External [facility] Chloride, External 105 [facility] Glucose, Serum, External 129(A) 74 - 106 [facility] Sodium, External 141 [facility] Magnesium, External [facility] Blood VENOUS BLOOD / Unknown 10/19/2020 Historical Provider CHEMISTRY & BLOOD GAS ORDERABLES [facility] * (ABNORMAL) COMPLETE BLOOD COUNT AND DIFFERENTIAL (10/19/2020) WBC, External 7.37 [facility] RBC, External 4.75 [facility] Hemoglobin, External 14.0 [facility] HCT, External 44.7 [facility] MCV, External 94.1 [facility] MCH, External 29.5 [facility] MCHC, External 31.3(A) 32.0 - 36.0 [facility] PLT, External 272 [facility] RDW-CV, External 16.7(A) 11.8 - 14.1 [facility] Neutrophils, External 71.6 [facility] Lymphocytes, External 16.7 [facility] Monocytes, External 8.0 [facility] Eosinophils, External 2.0 [facility] Basophils, External 0.8 [facility] ABS Neutrophils, External 5.27 [facility] ABS Lymphs, External 1.23 [facility] ABS Monocytes, External 0.59 [facility] ABS Eosinophils, External 0.15 [facility] ABS Basophils, External 0.06 [facility] Blood VENOUS BLOOD / Unknown 10/19/2020 Historical Provider PACKAGES & DNA [place] ORDERABLES [facility] documented in this encounter Visit Diagnoses Not on filedocumented in this encounter Care Teams Cloth Neutralizer Relationship Specialty Start Date End Date Layne Cai MD [address] [place] [phone] PCP - General 04/05/20 12/16/23 documented as of this encounter
--- OUTSIDE RECORDS SUMMARY | 2024-01-09 01:50 | XMS_ITS | Encounter Summary ---
Author Organization [facility] Address [address] [place] [address] Care Team Providers Care Pan Tank Worker Name Role Phone Layne Cai MD Primary Care Provider [phone] Reason for Referral * Prior Authorization (3 - 10 Business Days) - Closed Specialty Diagnoses / Procedures Referred By Contac t Referred To Contact Infusion Therapy Diagnoses Polycythemia vera ([facility]) Procedures GA PHLEBOTOMY Reshma Hilario, COMMERCIAL DRIVER 111 [facility] 2 [place] [address] [facility] [address] [place] [address] Referral ID Status Reason Start Date Expiration Date V isits Requested Visits Authorized [id number] Closed Specialty Services Required 09/07/2020 06/15/2032 1 1 Question Answer Is this appt for transfusion, medication, test or injection? Procedure Type of procedure? Therapeutic phlebotomy Have orders been place for this appt? (i.e.: Blood Transfusion Order Set, Therapy Plan, Lab Orders, Supportive Plan, Etc) No Encounter Details Date Type Department Care Team (Late st Contact Info) Description 09/07/2020 Orders Only [facility] Hematology & Oncology - [address] [phone] Alisa Powell RN Polycythemia vera ([facility]) (Primary Dx) Social History Tobacco Use Types [...] Visit [facility] Hematology & Oncology - [address] [phone] Erin Barillas MD 111 [facility] 2 [place] [phone] 05/18/2024 10:00 EST Office Visit [facility] Rheumatology & Immunology [address] [phone] Tod Perez NP 111 [facility], [facility] 5 [place] [phone] 06/03/2024 9:00 EST Ancillary Procedure [facility] [address] [place], [place] [phone] 06/03/2024 9:00 EST Office Visit [facility] [address] [place], [place] [phone] Claire Lopez NP 130 [facility] MOB-A [address] [place] [phone] Scheduled Referrals Name Type Priority Associated Diagnoses Orde r Schedule AMB CONS/FOLLOW UP INFUSION Outpatient Referral Routine Polycythemia vera ([facility]) Expected: 09/15/2020 documented as of this encounter Visit Diagnoses Diagnosis Polycythemia vera ([facility])- Primary documented in this encounter Care Teams Pan Tank Worker Relationship Specialty Start Date End Date Layne Cai MD [address] [place] [address] PCP - General 04/05/20 12/16/23 documented as of this encounter
--- OUTSIDE RECORDS SUMMARY | 2024-01-09 01:50 | XMS_ITS | Encounter Summary ---
Author Organization [facility] Address [address] [place] [address] Care Team Providers Care Patient Service Associate Name Role Phone Layne Cai MD Primary Care Provider [phone] Reason for Visit * Reason Comments Shortness of Breath Encounter Details Date Type Department Care Team (Late st Contact Info) Description 11/09/2020 13:45 EDT Office Visit [facility] Cardiology Clinic [address] [place] [address] Claire Herrmann NP 130 [facility]-A [address] [place] [address] Exertional chest pain (Primary Dx) Social History Tobacco Use Types [...] Dispensed Refills Start Date End Da te atorvastatin (LIPITOR) 40 mg tablet Take 1 Tab by mouth at bedtime. 90 Tab 3 11/09/2020 06/14/2021 isosorbide MONOnitrate (IMDUR) 60 mg CR tablet Take 1 Tab by mouth daily. 90 Tab 3 11/09/2020 03/02/2021 documented in this encounter Progress Notes * Claire Herrmann APRN - 11/09/2020 1345 EDT [...] to the office prior to regularly scheduled follow-up with complaints of exertional chest pain, shortness [...] rest. Underwent exercise nuclear stress test at [facility] and was told that this was normal, although mentions he was only able to exercise for 2 to 3 minutes on the treadmill before experiencing symptoms. Has noticed a significant decline in his functional capacity and is not ableto participate in enjoyable activities or work. 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 Claire Herrmann NP [facility] documented in this encounter Miscellaneous Notes * Addendum Note - Claire Herrmann APRN - 11/09/2020 1345 EDTAddended by: CLAIRE HERRMANN on: 11/09/2020 17:11 Modules accepted: Orders * Addendum Note - Claire Herrmann APRN - 11/09/2020 1345 EDTAddended by: CLAIRE HERRMANN on: 11/09/2020 17:12 Modules accepted: Orders documented in this encounter Plan of Treatment Upcoming Encounters Date Type Department Care Team (Late st Contact Info) Description 04/09/2024 16:30 EDT Office Visit [facility] Hematology & Oncology - [address] [phone] Erin Barillas MD [address] [place] [address] 2 [place] [phone] 05/18/2024 10:00 EST Office Visit [facility] Rheumatology & Immunology [address] [phone] Tod Perez NP [address] [place] [address] 5 [place] [phone] 06/03/2024 9:00 EST Ancillary Procedure [facility] [address] [place] [phone] 06/03/2024 9:00 EST Office Visit [facility] [address] [place] [phone] Claire Herrmann NP [address] [place] [address]-A [address] [place] [address] documented as of this encounter Procedures Procedure Name Priority Date/Time Associated Diagnosis Comments XR CHEST 2 VIEWS 11/09/2020 16:3 3 EDT EKG 12-LEAD 11/09/2020 14:46 EDT EKG 12-LEAD 11/09/2020 13:44 EDT documented in this encounter Results * XR CHEST 2 VIEWS (11/09/2020 16:33 EDT) Anatomical Region Laterality Modality Computed Radiogr aphy 11/09/2020 16:3 3 EDT Narrative 11/09/2020 16:33 EDT ? EXAM: RADIOLOGY/CHEST PA ?? LAT ?EX. D/ (1627) ? CLINICAL INFORMATION: ? SOB/cp ? PROCEDURE INFORMATION: ? Exam: XR Chest ? Exam date and time: 11/09/2020 4:01 PM ? Age: 75 years old ? Clinical indication: Pain; Other: Cp; Additional info: Sob/cp ? TECHNIQUE: ? Imaging protocol: XR of the chest. ? Views: 2 views. ? COMPARISON: ? CR (CHEST, CHEST PA) 05/19/2020 3:25 PM ? FINDINGS: ? Tubes, catheters and devices: Pacemaker. ? Lungs: ??Hyperinflation, interstitial prominence, and trace ? basilar airspace disease. ? Pleural spaces: No significant pleural effusion. ? Heart/Mediastinum: No cardiomegaly. ? Vasculature: Calcification of the thoracic aorta. ? Bones/joints: Degenerative change. ? IMPRESSION: ? 1. Hyperinflation, interstitial prominence, and trace basilar ? airspace disease. ? 2. Additional findings as described above. ? REPORT SIGNED IN OTHER VENDOR SYSTEM 11/09/2020 ?Reported By: Gerald Garcia ? CC: ? Transcribed Date/Time: 11/09/2020 (0943) ? Grip Wrapper: ? Printed Date/Time: 11/09/2020 (6333) ? PAGE 1 ? Signed Report ? Procedure Note Gerald Garcia MD - 11/09/2020 EXAM: RADIOLOGY/CHEST PA LAT EX. D/ (7114) CLINICAL INFORMATION: SOB/cp PROCEDURE INFORMATION: Exam: XR [...] By: Gerald Garcia CC: Transcribed Date/Time: 11/09/2020 (4153) Grip Wrapper: Printed Date/Time: 11/09/2020 (4233) PAGE 1 Signed Report Randy Null MD IMG DIAGNOSTIC IMAGI NG ORDERABLES * EKG 12-LEAD (11/09/2020 14:46 EDT) 11/09/2020 14:4 6 EDT Narrative [facility] - 11/09/2020 14:46 EDT ? [facility] ? Test Date: ?2020-11-09 14:46:13 Pat Name: ? DEON VILLANUEVA ?Department: ?Room: ? Gender: ? M ?Metal Control Worker: ?? DT : ?1945 ? Requested By: Order Number: ?Reading MD: ?? Shiv Stellar, MD ? Measurements Intervals ?[place] ? Rate: ? 67 ? P: ? KS: ? 242 ?QRS: ?47 QRSD: ? 92 ? T: ?50 QT: ? 460 ? QTc: ?486 ? Interpretive Statements Atrial-paced rhythm with prolonged AV conduction with premature atrial complexes with aberrant conduction Prolonged QT Abnormal ECG Compared to ECG 05/19/2020 14:35:38 Atrial premature complex(es) now present Aberrant conduction of supraventricular beat(s) now present Prolonged QT interval now present Electronically Signed On 11-09-2020 17:24:48 EDT by Shiv Moran MD [email or web address] Procedure Note Shiv Moran MD - 11/09/2020 [facility] Test Date: 2020-11-09 14:46:13 Pat Name: DEON VILLANUEVA Department: Room: Gender: M Metal Control Worker: PEPPER : 1945 Requested By: Order Number: Reading MD: Shiv Moran MD Measurements Intervals [place] Rate: 67 P: KS: 242 QRS: 47 QRSD: 92 T: 50 QT: 460 QTc: 486 Interpretive Statements Atrial-paced rhythm with prolonged AV conduction with premature atrial complexes with aberrant conduction Prolonged QT Abnormal ECG Compared to ECG 05/19/2020 14:35:38 Atrial premature complex(es) now present Aberrant conduction of supraventricular beat(s) now present Prolonged QT interval now present Electronically Signed On 11-09-2020 17:24:48 EDT by Shiv Moran MD [email or web address] Randy Null MD CARDIAC ECG ORDERABL ES [facility] [address] [place] [address] * EKG 12-LEAD (11/09/2020 13:44 EDT) 11/09/2020 13:4 4 EDT Narrative [facility] - 11/09/2020 13:44 EDT ? [facility] ? Test Date: ?2020-11-09 13:44:16 Pat Name: ? DEON VILLANUEVA ?Department: ?Room: ? Gender: ? M ?Metal Control Worker: ?? ES : ?1945 ? Requested By: Order Number: ?Reading : ?? Shiv Moran MD ? Measurements Intervals ?[place] ? Rate: ? 62 ? P: ?-19 KS: ? 234 ?QRS: ?51 QRSD: ? 86 ? T: ?54 QT: ? 442 ? QTc: ?448 ? Interpretive Statements Atrial-paced rhythm with prolonged AV conduction Abnormal ECG Compared to ECG 05/19/2020 14:35:38 No significant changes Electronically Signed On 11-09-2020 17:26:13 EDT by Shiv Moran MD [email or web address] Procedure Note Shiv Moran MD - 11/09/2020 [facility] Test Date: 2020-11-09 13:44:16 Pat Name: DEON VILLANUEVA Department: Room: Gender: M Metal Control Worker: ES : 1945 Requested By: Order Number: Reading MD: Shiv Moran MD Measurements Intervals [place] Rate: 62 P: -19 KS: 234 QRS: 51 QRSD: 86 T: 54 QT: 442 QTc: 448 Interpretive Statements Atrial-paced rhythm with prolonged AV conduction Abnormal ECG Compared to ECG 05/19/2020 14:35:38 No significant changes Electronically Signed On 11-09-2020 17:26:13 EDT by Shiv Moran MD [email or web address] Claire Herrmann DEPUTY CORONER INVESTIGATOR CARDIAC ECG ORDERABL ES [facility] [address] [place] [address] documented in this encounter Visit Diagnoses Diagnosis Exertional chest pain- Primary Chest pain, unspecified documented in this encounter Discontinued Medications Medication Sig Discontinue Reason Start Date End Da te isosorbide MONOnitrate (IMDUR) 30 mg CR tablet Take 30 mg by mouth daily. 10/21/2020 11/09/2020 simvastatin (ZOCOR) 40 mg tablet Take 40 mg by mouth every evening. Alternate therapy 11/09/2020 documented as of this encounter Historical Medications * This list may reflect changes made after this encounter. Medication Sig Dispensed Refills Start Date End Date isosorbide MONOnitrate (IMDUR) 30 mg CR tablet Take 30 mg by mouth daily. 10/21/2020 11/09/2020 added in this encounter Orders Case Request Count Last Ordered Date First Orde red Date CASE REQUEST RECORDS TECH 1 11/09/2020 documented in this encounter Care Teams Patient Service Associate Relationship Specialty Start Date End Date Layne Cai MD [address] [place] [phone] PCP - General 04/05/20 12/16/23 documented as of this encounter
--- OUTSIDE RECORDS SUMMARY | 2024-01-09 01:50 | XMS_ITS | Encounter Summary ---
Author Organization [facility] Address [address] [place] [address] Care Team Providers Care Fiberglass Bonding Machine Tender Name Role Phone Layne Cai MD Primary Care Provider [phone] Reason for Referral * (Routine) - Authorization Not Required Specialty Diagnoses / Procedures [facility] Referred To Contact Diagnoses Sinus node dysfunction ([facility]) Procedures CARDIAC IMPLANT CHECK - REMOTE MONITOR Adrien Hackett NP 130 [facility] [address] [address] Referral ID Status Reason Start Date Expiration Date Visits Requested Visits Authorized [id number] Authorization Not Required 10/23/2020 18 18 Encounter Details Date Type Department Care Team (Late st Contact Info) Description 10/23/2020 Orders Only [facility] Clinic [address] [place] [address] Adrien Hackett NP 130 [facility] [address] [address] Sinus node dysfunction ([facility]CC-CMS) (Primary Dx) Social [...] [facility] Hematology & Oncology - [address] [phone] Erin Barillas MD [address] [place] [address] 2 [place] [phone] 05/18/2024 10:00 EST Office Visit [facility] Rheumatology & Immunology - [address] [phone] Tod Perez NP [address] [place] [address] 5 [place] [phone] 06/03/2024 9:00 EST Ancillary Procedure [facility] Cardiology Clinic [address] [place] [phone] 06/03/2024 9:00 EST Office Visit [facility] Clinic [address] [place] [phone] Claire Lopez NP [address] [place] [address]-A [address] [place] [address] Scheduled Orders Name Type Priority Associated Diagnoses Orde r Schedule CARDIAC IMPLANT CHECK - REMOTE MONITOR Implantable Cardiac Device Routine Sinus node dysfunction ([facility]) 18 Occurrences starting 10/23/2020 until 11/13/2024, 6 completed documented as of this encounter Results * CARDIAC IMPLANT CHECK [...] Hackett NP CV IMPLANTABLE CARDI AC DEVICE * CARDIAC IMPLANT CHECK - REMOTE - [...] Hackett NP CV IMPLANTABLE CARDI AC DEVICE * CARDIAC IMPLANT CHECK - REMOTE - PACEMAKER (07/30/2022 9:43 EST) Anatomical Region Laterality Modality Device Narrative 07/30/2022 9:43 EST Remote pacemaker interrogation shows normal device function, ample generator. No arrhythmias. See scanned documents for full details. Procedure Note Claire Lopez NP - 07/30/2022 Remote pacemaker interrogation shows normal device function, amplegenerator. No arrhythmias. See scanned documents for full details. Adrien Hernandezpastor [place] CV IMPLANTABLE CARDI AC DEVICE * CARDIAC IMPLANT CHECK - REMOTE - PACEMAKER (01/24/2022 14:48 EDT) Anatomical Region Laterality Modality Device Narrative 01/24/2022 14:49 EDT Remote pacemaker interrogation shows normal device function, ample generator. No arrhythmias. See scanned documents for full details. Procedure Note Claire Lopez FESTUS - 01/24/2022 Remote pacemaker interrogation shows normal device function, amplegenerator. No arrhythmias. See scanned documents for full details. Adrien Gt Hackett NP CV IMPLANTABLE CARDI AC DEVICE * CARDIAC IMPLANT CHECK - REMOTE - PACEMAKER (06/04/2021 12:55 EST) Anatomical Region Laterality Modality Device Narrative 06/07/2021 12:56 EST I have reviewed the pacemaker interrogation. ??I agree with the findings. See scanned document for details of remote download. Adrien Hackett APRN Adrien Hackett NP CV IMPLANTABLE CARDI AC DEVICE * CARDIAC IMPLANT CHECK - REMOTE - [...] remote download. Adrien Hackett APRN Adrien Hackett NP CV IMPLANTABLE CARDI AC DEVICE documented in this encounter Visit Diagnoses Diagnosis Sinus node dysfunction ([facility])- Primary Sinoatrial node dysfunction documented in this encounter Care Teams Fiberglass Bonding Machine Tender Relationship Specialty Start Date End Date Layne Cai MD [address] [place] [address] PCP - General 04/05/20 12/16/23 documented as of this encounter
--- OUTSIDE RECORDS SUMMARY | 2024-01-09 01:51 | XMS_ITS | Encounter Summary ---
Author Organization [facility] Address [address] [place] [address] Care Team Providers Care Rehabilitation Worker Name Role Phone Dereck Schultz MD Primary Care Provider U navailable Reason for Visit * Reason Comments Telemedicine Phone Call Encounter Details Date Type Department Care Team (Late st Contact Info) Description 02/24/2020 14:30 EDT Telemedicine [facility] Hematology & Oncology - [facility] [address] [place], [place] [phone] Erin Barillas MD 111 [facility], Level 2 [place] [address] Polycythemia vera (HCC-CMS) (Primary Dx) [...] visiting a doctor's office or shopping? Yes 09/23/2019 Cognitive Status Response Date of Assessm ent Because of a physical, menta l, or emotional condition, does this person have serious difficulty concentrating, remembering, or making decisions? No 11/24/2017 documented as of this encounter Progress Notes * Erin Barillas MD - 02/24/2020 1430 EDT [...] Patient presents with ??? Telemedicine Phone Call HPI Mr. Villanueva is a pleasant 74 [...] No fever/chills or night sweats. No unintentional weight loss. No dysuria/hematuria. No rashes. No epistaxis/gum [...] States that he spent the winter in [place] and noted that his fingers would turn [...] below. Social history: Retired. Worked for the [employer]. 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 Rheumatology & Immunology [address] [phone] Tod Perez NP [address] [place] [address] 5 [place] [phone] 06/03/2024 9:00 EST Ancillary Procedure [facility] Cardiology Clinic [address] [place] [phone] 06/03/2024 9:00 EST Office Visit [facility] Cardiology Clinic [address] [place] [phone] Claire Lopez NP [address] [place] [address]-A [address] [place] [address] documented as of this encounter Visit Diagnoses Diagnosis Polycythemia vera (HCC-CMS)- Primary documented in this encounter Care Teams Rehabilitation Worker Relationship Specialty Start Date End Date Dereck Schultz MD PCP - General 04/07/19 04/04/20 documented as of this encounter
--- OUTSIDE RECORDS SUMMARY | 2024-01-09 01:51 | XMS_ITS | Encounter Summary ---
Author Organization [facility] Address [address] [place] [address] Care Team Providers Care Nursery Worker Name Role Phone Layne Cai MD Primary Care Provider [phone] Encounter Details Date Type Department Care Team (Latest Contact Info) Description 04/07/2020 Travel Social History Tobacco Use [...] have Coronavirus / COVID-19? No / Unsure 04/07/2020 12:30 EDT documented as of this encounter Functional [...] Info) Description 04/09/2024 16:30 EDT Office Visit [facility] Hematology & Oncology - [address] [phone] Erin Barillas MD [address] [place] [address], [facility] 2 [place] [phone] 05/18/2024 10:00 EST Office Visit [facility] Rheumatology & Immunology - [address] [phone] Tod Perez NP [address] [place] [address], [facility] 5 [place] [phone] 06/03/2024 9:00 EST Ancillary Procedure [facility] Cardiology Clinic [address] [place] [phone] 06/03/2024 9:00 EST Office Visit [facility] Cardiology Clinic [address] [place] [address] [phone] Claire Lopez NP [address] [place] [address] MOB-A [address] [place] [phone] documented as of this encounter Visit Diagnoses Not on filedocumented in this encounter Care Teams Nursery Worker Relationship Specialty Start Date End Date Layne Cai MD [address] [place] [phone] PCP - General 04/05/20 12/16/23 documented as of this encounter
--- OUTSIDE RECORDS SUMMARY | 2024-01-09 01:51 | XMS_ITS | Encounter Summary ---
Author Organization [facility] Address [address] [place] [address] Care Team Providers Care Cork Pressing Machine Operator Name Role Phone Layne Cai MD Primary Care Provider [phone] Reason for Visit * Reason [place] Date Comments Medications Refill 05/29/2020 Encounter Details Date Type Department Care Team (Late st Contact Info) Description 05/29/2020 Refill [facility] Rheumatology & Immunology - [facility] [address] [place], [place] [phone] Tod Perez, FESTUS 111 [facility], [facility] 5 [place] [address] Medications Refill Social History Tobacco [...] for long-term (current) use of medications Take 9 Tabs by mouth once a week. 36 Tab 3 05/29/2020 06/01/2020 documented in this encounter Miscellaneous Notes * Telephone Encounter - aZri Mccabe RN - 05/29/2020 0938 ESTFrom: Praneeth Villanueva To: Office of Tod Perez APRN Sent: 05/29/2020 8:36 EST Subject: Medication Renewal Request Refills have been requested for the following medications: methotrexate 2.5 mg tablet [Tod Perez, BATSHEVA] Preferred pharmacy: [id number] AT [facility] documented in this encounter Plan of Treatment Upcoming Encounters Date Type Department Care Team (Late st Contact Info) Description 04/09/2024 16:30 EDT Office Visit [facility] Hematology & Oncology - [address] [phone] Eirn Barillas MD [address] [place] [address] 2 [place] [phone] 05/18/2024 10:00 EST Office Visit [facility] Rheumatology & Immunology - [address] [phone] Tod Perez NP [address] [place] [address], [facility] 5 [place] [phone] 06/03/2024 9:[address] [facility] Cardiology Clinic [address] [place], [place] [phone] 06/03/2024 9:[address] [facility] Cardiology Clinic [address] [place], [place] [address] Claire Lopez NP 130 [facility] MOB-A [address] [place] [address] documented as of this encounter Visit Diagnoses Diagnosis Inflammation around joint Enthesopathy of unspecified site Encounter for long-term (current) use of medications Encounter for long-term (current) use of other medications documented in this encounter Discontinued Medications Medication Sig Discontinue Reason Start Date End Da te methotrexate 2.5 mg tabletIndications:Inflamm ation around joint,Encounter for long-term (current) use of medications Take 9 Tabs by mouth once a week. Reorder 04/10/2020 05/29/2020 documented as of this encounter Care Teams Cork Pressing Machine Operator Relationship Specialty Start Date End Date Layne Cai MD [address] [place] [phone] PCP - General 04/05/20 12/16/23 documented as of this encounter
--- OUTSIDE RECORDS SUMMARY | 2024-01-09 01:51 | XMS_ITS | Encounter Summary ---
Author Organization [facility] Address [address] [place] [address] Care Team Providers Care Heavy Mobile Equipment Operator Name Role Phone Layne Cai MD Primary Care Provider [phone] Reason for Visit * Reason Onset Date Comments Results 07/06/2020 Encounter Details Date Type Department Care Team (Late st Contact Info) Description 07/06/2020 Telephone [facility] Cancer Center Hematology & Oncology - [facility] [address], [place] [phone] Erin Barillas MD [address] [facility], Level 2 [place] [address] Results Social History Tobacco Use [...] encounter Miscellaneous Notes * Telephone Encounter - Marie Augustina - 07/06/2020 1352 EST LABS ENTERED FROM [facility]. Augustina Salazar 07/06/2020 13:52 documented in this encounter Plan of Treatment Upcoming Encounters Date Type Department Care Team (Late st Contact Info) Description 04/09/2024 16:30 EDT Office Visit [facility] Hematology & Oncology [address] [phone] Erin Barillas MD [address] [place] [address] 2 [place] [phone] 05/18/2024 10:00 EST Office Visit [facility] Rheumatology & Immunology [address] [phone] Tod Perez NP [address] [place] [address], [facility] 5 [place] [phone] 06/03/2024 9:00 EST Ancillary Procedure [facility] [address] [place] [phone] 06/03/2024 9:00 EST Office Visit [facility] [address] [place] [address] [phone] Claire Lopez NP [address] [place] [address]A [address] [place] [phone] documented as of this encounter Procedures Procedure Name Priority Date/Time Associated Diagnosis Comments COMPREHENSIVE METABOLIC PANEL (ONCOLOGY USE ONLY-INC MG) Routine 07/06/2020 COMPLETE BLOOD COUNT AND DIFFERENTIAL Routine 07/06/2020 documented in this encounter Results * (ABNORMAL) COMPREHENSIVE METABOLIC PANEL (ONCOLOGY USE ONLY-INC MG) (07/06/2020) Calcium, External 8.8 [facility] CO2, External 26.8 [facility] AST, External 16 [facility] ALT, External 25 [facility] Bilirubin, Total, External 0.4 [facility] Creatinine, External 1.29 [facility] Calculated Calcium, External [facility] Anion Gap, External [facility] Total Protein, External 6.9 [facility] Potassium, External 4.6 [facility] Total Alkaline Phosphatase, External 72 [facility] Albumin, External 4.0 [facility] BUN, External 22(A) 7 - 18 [facility] GFR, Calculated, External 54.15 [facility] Fasting?, External [facility] Chloride, External 105 [facility] Glucose, Serum, External 142(A) 74 - 106 [facility] Sodium, External 140 [facility] Magnesium, External [facility] Blood VENOUS BLOOD / Unknown 07/06/2020 Historical Provider MD CHEMISTRY & BLOOD GAS ORDERABLES [facility] * (ABNORMAL) COMPLETE BLOOD COUNT AND DIFFERENTIAL (07/06/2020) WBC, External 7.14 [facility] RBC, External 4.95 [facility] Hemoglobin, External 14.4 [facility] HCT, External 46.8 [facility] MCV, External 94.5 [facility] MCH, External 29.1 [facility] MCHC, External 30.8(A) 32.0 - 36.0 [facility] PLT, External 277 [facility] RDW-CV, External 18.4(A) 11.8 - 14.1 [facility] Neutrophils, External 69.7 [facility] Lymphocytes, External 17.5 [facility] Monocytes, External 8.3 [facility] Eosinophils, External 2.7 [facility] Basophils, External 0.8 [facility] ABS Neutrophils, External 4.98 [facility] ABS Lymphs, External 1.25 [facility] ABS Monocytes, External 0.59 [facility] ABS Eosinophils, External 0.19 [facility] ABS Basophils, External 0.06 [facility] Blood VENOUS BLOOD / Unknown 07/06/2020 Historical Provider MD PACKAGES & DNA [place] OBE ORDERABLES [facility] documented in this encounter Visit Diagnoses Not on filedocumented in this encounter Care Teams Heavy Mobile Equipment Operator Relationship Specialty Start Date End Date Layne Cai MD [address] [place] [phone] PCP - General 04/05/20 12/16/23 documented as of this encounter
--- OUTSIDE RECORDS SUMMARY | 2024-01-09 01:51 | XMS_ITS | Encounter Summary ---
Author Organization [facility] Address [address] [place] [address] Care Team Providers Care Healthcare Architect Name Role Phone Layne Cai MD Primary Care Provider [phone] Reason for Visit * Reason Onset Date Comments Medications Refill 05/15/2020 Encounter Details Date Type Department Care Team (Late st Contact Info) Description 05/15/2020 Refill [facility] Cancer Center Hematology & Oncology - [facility] [address] [place], [place] [phone] Erin Barillas MD 111 [facility], Level [address] [place] [phone] Medications Refill Social History Tobacco Use Types [...] mouth daily for 90 days. 90 Cap 05/15/2020 08/14/2020 documented in this encounter Miscellaneous Notes * Telephone Encounter - Jeannette Araiza - 05/15/2020 0825 EST Medication(s) Requested hydroxyurea (HYDREA) 500 mg capsule 500 mg, DAILY EditCancel Reorder Summary: Take 500 mg by mouth daily Pharmacy [facility] Next Visit Date Visit date not found Out of Medication? No Jeannette Araiza 05/15/2020 8:25 documented in this encounter Plan of Treatment Upcoming Encounters Date Type Department Care Team (Late st Contact Info) Description 04/09/2024 16:30 EDT Office Visit [facility] Cancer Center Hematology & Oncology - [address] [phone] Erin Barillas MD 111 [facility], [facility] 2 [place] [phone] 05/18/2024 10:00 EST Office Visit [facility] Rheumatology & Immunology - [address] [phone] Tod Perez NP 111 [facility], [facility] 5 [place] [phone] 06/03/2024 9:00 EST Ancillary Procedure [facility] [address] [place] [address] 06/03/2024 9:00 EST Office [facility] [address] [place], [place] [phone] Claire Lopez NP 130 [facility] [address] [place] [phone] documented as of this encounter Visit Diagnoses Not on filedocumented in this encounter Discontinued Medications Medication Sig Discontinue Reason Start Date End Da te hydroxyurea (HYDREA) 500 mg capsuleIndications:polycy themia vera Take 500 mg by mouth daily. Reorder 05/15/2020 documented as of this encounter Care Teams Healthcare Architect Relationship Specialty Start Date End Date Layne Cai MD [address] [place] [address] PCP - General 04/05/20 12/16/23 documented as of this encounter
--- OUTSIDE RECORDS SUMMARY | 2024-01-09 01:51 | XMS_ITS | Encounter Summary ---
Author Organization [facility] Address [address] [place] [address] Care Team Providers Care Licensed Staff Mft Name Role Phone Layne Cai MD Primary Care Provider [phone] Reason for Visit * Reason Onset Date Comments Results 04/05/2020 Encounter Details Date Type Department Care Team (Late st Contact Info) Description 04/05/2020 Telephone [facility] Cancer Center Hematology & Oncology - [facility] [address] [place] [address] Erin Barillas MD 111 [facility], [facility] 2 [place] [address] Results Social History Tobacco Use [...] * Telephone Encounter - Augustina Salazar - 04/05/2020 7379 EDT LABS ENTERED FROM [facility]. Augustina Salazar 04/05/2020 13:55 documented in this encounter Plan of Treatment Upcoming Encounters Date Type Department Care Team (Late st Contact Info) Description 04/09/2024 16:30 EDT Office Visit [facility] Hematology & Oncology [address] [phone] Erin Barillas MD [address] [place] [address] 2 [place] [phone] 05/18/2024 10:00 EST Office Visit [facility] Rheumatology & Immunology [address] [phone] Tod Perez NP [address] [place] [address], [facility] [address] [place] [phone] 06/03/2024 9:00 EST Ancillary Procedure [facility] [address] [place] [phone] 06/03/2024 9:00 EST Office Visit [facility] [address] [place] [phone] Claire Lopez NP 130 [facility] [address] [place] [phone] documented as of this encounter Procedures Procedure Name Priority Date/Time Associated Diagnosis Comments COMPREHENSIVE METABOLIC PANEL (ONCOLOGY USE ONLY-INC MG) Routine 04/04/2020 COMPLETE BLOOD COUNT AND DIFFERENTIAL Routine 04/04/2020 documented in this encounter Results * (ABNORMAL) COMPLETE BLOOD COUNT AND DIFFERENTIAL (04/04/2020) WBC, External 6.58 [facility] RBC, External 4.46 [facility] Hemoglobin, External 14.8 [facility] HCT, External 45.0 [facility] MCV, External 100.9(A) 80 - 95 [facility] MCH, External 33.2(A) 27.0 - 33.0 [facility] MCHC, External 32.9 [facility] PLT, External 279 [facility] RDW-CV, External 16.0(A) 11.8 - 14.1 [facility] Neutrophils, External 69.4 [facility] Lymphocytes, External 20.8 [facility] Monocytes, External 7.0 [facility] Eosinophils, External 1.8 [facility] Basophils, External 0.5 [facility] ABS Neutrophils, External 4.57 [facility] ABS Lymphs, External 1.37 [facility] ABS Monocytes, External 0.46 [facility] ABS Eosinophils, External 0.12 [facility] ABS Basophils, External 0.03 [facility] Blood VENOUS BLOOD / Unknown 04/04/2020 Historical Provider PACKAGES & DNA [place] OBE ORDERABLES [facility] * (ABNORMAL) COMPREHENSIVE METABOLIC PANEL (ONCOLOGY USE ONLY-INC MG) (04/04/2020) Calcium, External 9.1 [facility] CO2, External 25.7 [facility] AST, External 18 [facility] ALT, External 20 [facility] Bilirubin, Total, External 0.5 [facility] Creatinine, External 1.24 [facility] Calculated Calcium, External [facility] Anion Gap, External [facility] Total Protein, External 6.7 [facility] Potassium, External 4.4 [facility] Total Alkaline Phosphatase, External 69 [facility] Albumin, External 4.0 [facility] BUN, External 19(A) 7 - 18 [facility] GFR, Calculated, External 56.68 [facility] Fasting?, External [facility] Chloride, External 105 [facility] Glucose, Serum, External 120(A) 74 - 106 [facility] Sodium, External 139 [facility] Magnesium, External [facility] Blood VENOUS BLOOD / Unknown 04/04/2020 Historical Provider CHEMISTRY & BLOOD GAS ORDERABLES [facility] documented in this encounter Visit Diagnoses Not on filedocumented in this encounter Care Teams Licensed Staff Mft Relationship Specialty Start Date End Date Layne Cai MD [address] [place] [phone] PCP - General 04/05/20 12/16/23 documented as of this encounter
--- OUTSIDE RECORDS SUMMARY | 2024-01-09 01:51 | XMS_ITS | Encounter Summary ---
Author Organization [facility] Address [address] [place] [address] Care Team Providers Care Auxiliary Equipment Tender Name Role Phone Layne Cai MD Primary Care Provider [phone] Reason for Visit * Reason Comments Pacemaker/Device Check Medtronic Encounter Details Date Type Department Care Team (Late st Contact Info) Description 05/19/2020 14:15 EST Office Visit [facility] [address] [place] [address] Claire Lopez NP [address] [facility] [place] [address] Pacemaker (Primary Dx); Sick sinus syndrome (HCC-CMS); Essential hypertension; Hypercholesteremia Social History Tobacco Use [...] kg (227 lb 8 oz) 05/19/2020 1417 ES T Height 180.3 cm (5' 11) 05/19/2020 1417 [...] this encounter Progress Notes * Claire Lopez, BATSHEVA - 05/19/2020 1415 EST Cardiology Clinic Note [...] feeling well from a cardiac perspective. Has nospecific complaints or concerns to offer. 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 Device program evaluation with iterative adjustments were made to test device function andselect optimal permanent program values with analysis, review, and report. Generator approaching ADEBAYO, elevated battery impedance. 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 12 lead EKG, BMP, CBC and CXR today in preparation for generator change. Will try to arrange [facility] 2. Sick sinus syndrome (HCC-CMS) S/p single [...] maintaining a healthy weight. Claire Lopez NP [facility] Cardiology Face to face time spent with patient 25 minutes, > 50% in counseling and education regarding multiple medical co-morbidities and discussion regarding plan of care documented in this encounter Plan of Treatment Upcoming Encounters Date Type Department Care Team (Late st Contact Info) Description 04/09/2024 16:30 EDT Office Visit [facility] Cancer Center Hematology & Oncology - [place] [phone] Erin Barillas MD 111 [facility], [address] [place] [phone] 05/18/2024 10:00 EST Office Visit [facility] Rheumatology & Immunology - [facility] [address] [place], [place] [phone] Tod Perez NP 111 [facility], [address] 5 [place] [phone] 06/03/2024 9:00 EST Ancillary Procedure [facility] [address] [place] [phone] 06/03/2024 9:00 EST Office Visit [facility] [address] [place] [phone] Claire Lopez NP 130 [facility] [address]A [address] [place] [phone] documented as of this encounter Procedures Procedure Name Priority Date/Time Associated Diagnosis Comments XR CHEST 2 VIEWS 05/19/2020 16:1 5 EST COMPLETE BLOOD COUNT WITH DIFFERENTIAL (AUTO) Routine 05/19/2020 15:25 EST Pacemaker BASIC METABOLIC PANEL (BMP) Routine 05/19/2020 15:25 EST Pacemaker EKG 12-LEAD 05/19/2020 14:35 EST documented in this encounter Results * XR CHEST 2 VIEWS (05/19/2020 16:15 EST) Anatomical Region Laterality Modality Computed Radiogr aphy 05/19/2020 16:1 2 EST Narrative 05/19/2020 16:15 EST ? EXAM: RADIOLOGY/CHEST PA ?? LAT ?EX. D/ (1542) ? CLINICAL INFORMATION: ? Z95.0 PACEMAKER PLACEMENT PRIOR TO GENERATOR ? CHANGE ? INDICATION: Z95.0 PACEMAKER PLACEMENT PRIOR TO GENERATOR, CHANGE. ? COMPARISON: None. ? TECHNIQUE: 2 views of the chest were obtained. ? FINDINGS: ? A single lead cardiac pacer is present with the lead tip superimposed ? over the right atrium. The cardiomediastinal silhouette and pulmonary ? vasculature are within normal limits. The lungs are clear. No pleural ? effusion or pneumothorax. Degenerative changes of aging throughout ? the thoracic spine. ? IMPRESSION: ? 1. Osteopenia. ? 2. Single lead cardiac pacer with lead tip superimposed over the ? right atrium. ? REPORT SIGNED IN OTHER VENDOR SYSTEM 05/19/2020 ?Reported By: Dustin Ibrahim MD ? CC: ? Transcribed Date/Time: 05/19/2020 (7706) ? Reagent Tender Helper: ? Printed Date/Time: 05/19/2020 (0265) ? PAGE 1 ? Signed Report ? Procedure Note Dustin Ibrahim MD - 05/19/2020 EXAM: RADIOLOGY/CHEST PA LAT EX. D/ (1542) CLINICAL INFORMATION: Z95.0 PACEMAKER PLACEMENT PRIOR TO GENERATOR CHANGE INDICATION: Z95.0 PACEMAKER PLACEMENT PRIOR TO GENERATOR, CHANGE. COMPARISON: None. TECHNIQUE: 2 views of the chest were obtained. FINDINGS: A single lead cardiac pacer is present with the lead tipsuperimposed over the right atrium. The cardiomediastinal silhouette andpulmonary vasculature are within normal limits. The lungs are clear. Nopleural effusion or pneumothorax. Degenerative changes of aging throughout the thoracic spine. IMPRESSION: 1. Osteopenia. 2. Single lead cardiac pacer with lead tip superimposed over the right atrium. REPORT SIGNED IN OTHER VENDOR SYSTEM 05/19/2020 Reported By: Dustin Ibrahim MD CC: Transcribed Date/Time: 05/19/2020 (1614) Reagent Tender Helper: Printed Date/Time: 05/19/2020 (1614) PAGE 1 Signed Report Claire Lopez TIRE BUFFER IMG DIAGNOSTIC IMAGI NG ORDERABLES * (ABNORMAL) BASIC METABOLIC PANEL (BMP) (05/19/2020 15:25 EST) BUN - [facility] 20 10 - 26 mg/dL 05/19/2020 16:10 [facility] CALCIUM - [facility] 9.6 8.5 - 10.5 mg/dL 05/19/2020 16:10 [facility] Chloride 102 96 - 110 mmol/L 05/19/2020 16:10 [facility] CO2 Total 28 21 - 32 mEq/L 05/19/2020 16:10 [facility] CREATININE 1.06 0.66 - 1.25 mg/dL 05/19/2020 16:10 [facility] eGFR >60 05/19/2020 16:10 [facility] Comment: Chronic renal impairment is defined as GFR <60 Multiply result by 1.210 for patients. Anion Gap 8 0 - 18 05/19/2020 16:10 [facility] GLUCOSE - [facility] 105(H) 70 - 100 mg/dL 05/19/2020 16:10 [facility] Potassium 4.5 3.5 - 5.0 mEq/L 05/19/2020 16:10 [facility] Sodium 138 136 - 145 mEq/L 05/19/2020 16:10 [facility] 05/19/2020 15:2 5 EST 05/19/2020 15:25 EST [facility] - 05/19/2020 16:10 EST Does PT Have a Latex Allergy? NO Claire Lopez NP CHEMISTRY & BLOOD GA S ORDERABLES Performing Organization Address City/State/[facility] Co de Phone Number [facility] [address] [place] [address] * (ABNORMAL) COMPLETE BLOOD COUNT WITH DIFFERENTIAL (AUTO) (05/19/2020 15:25 EST) ABSOLUTE NEUTROPHIL COUN - [facility] 4.9 2.2 - 8.85 10e3/uL 05/19/2020 15:54 [facility] BASO # - [facility] 0.07 0.01 - 0.11 10e/uL 05/19/2020 15:54 [facility] BASO % - [facility] 1 0 - 2 % 05/19/2020 15:54 [facility] EOS # - [facility] 0.16 0.03 - 0.61 10e3/ul 05/19/2020 15:54 [facility] EOS % - [facility] 2 0 - 5 % 05/19/2020 15:54 [facility] GRAN % - [facility] 68.5 40 - 80 % 05/19/2020 15:54 [facility] HEMATOCRIT - [facility] 46.2 39.5 - 50.2 % 05/19/2020 15:54 [facility] HEMOGLOBIN - [facility] 14.3 13.8 - 17.3 g/dl 05/19/2020 15:54 [facility] IG# - [facility] 0.05 0 - 0.7 10e3/uL 05/19/2020 15:54 [facility] IG% - [facility] 0.7 0 - 0.9 % 05/19/2020 15:54 [facility] LYMPH # - [facility] 1.3 1.09 - 3.3 10e3/ul 05/19/2020 15:54 [facility] LYMPH% - [facility] 17.8(L) 20 - 40 % 05/19/2020 15:54 [facility] MEAN CORPUSCULAR HGB - [facility] 30.2 27.6 - 33.0 pg 05/19/2020 15:54 [facility] MEAN CORPUSCULAR HGB CONC - [facility] 31.0(L) 32.8 - 36.4 g/dL 05/19/2020 15:54 [facility] MEAN CELL VOLUME - [facility] 97.5(H) 81 - 95 fl 05/19/2020 15:54 [facility] MONO # - [facility] 0.7 0.1 - 0.8 10e3/uL 05/19/2020 15:54 [facility] MONO% - [facility] 9.8 0 - 12 % 05/19/2020 15:54 [facility] PLATELET COUNT 243 141 - 377 10e3/ul 05/19/2020 15:54 [facility] RED BLOOD COUNT - [facility] 4.74 4.36 - 5.78 10e3/ul 05/19/2020 15:54 [facility] RED CELL DISTRI WIDTH - [facility] 15.1 <14.2 % 05/19/2020 15:54 [facility] WHITE BLOOD COUNT - [facility] 7.2 4.0 - 10.4 10e3/ul 05/19/2020 15:54 [facility] 05/19/2020 15:2 5 EST 05/19/2020 15:25 EST Narrative [facility] - 05/19/2020 15:54 EST Does PT Have a Latex Allergy? NO Claire Lopez TIRE BUFFER HEMATOLOGY & PF4 ORD ERABLES [facility] [address] [place] [address] * EKG 12-LEAD (05/19/2020 14:35 EST) 05/19/2020 14:3 5 EST Narrative [facility] - 05/19/2020 14:35 EST ? [facility] ? Test Date: ?2020-05-19 14:35:38 Pat Name: ? DEON VILLANUEVA ?Department: ?Room: ? Gender: ? M ?Gis Analyst Developer: ?? ES : ?1945 ? Requested By: Order Number: ?Reading MD: ?? Clayton Lischke, MD ? Measurements Intervals ?[place] ? Rate: ? 61 ? P: ? FL: ? 234 ?QRS: ?36 QRSD: ? 90 ? T: ?51 QT: ? 438 ? QTc: ?440 ? Interpretive Statements Atrial-paced rhythm with prolonged AV conduction Abnormal ECG No previous ECG available for comparison Electronically Signed On 05-19-2020 15:02:25 EST by Clayton Torres MD [email or web address] Procedure Note Clayton Torres MD - 05/19/2020 [facility]iology Test Date: 2020-05-19 14:35:38 Pat Name: DEON VILLANUEVA Department: Room: Gender: M Gis Analyst Developer: ES : 1945 Requested By: Order Number: Reading MD: Clayton Trores MD Measurements Intervals [place] Rate: 61 P: FL: 234 QRS: 36 QRSD: 90 T: 51 QT: 438 QTc: 440 Interpretive Statements Atrial-paced rhythm with prolonged AV conduction Abnormal ECG No previous ECG available for comparison Electronically Signed On 05-19-2020 15:02:25 EST by Clayton Torres MD [email or web address] Claire Lopez TIRE BUFFER CARDIAC ECG ORDERABL ES [facility] [address] [place] [address] documented in this encounter Visit Diagnoses Diagnosis Pacemaker- Primary Cardiac pacemaker in situ Sick sinus syndrome (HCC-CMS) Sinoatrial node dysfunction Essential hypertension Unspecified essential hypertension Hypercholesteremia Pure hypercholesterolemia documented in this encounter Care Teams Auxiliary Equipment Tender Relationship Specialty Start Date End Date Layne Cai MD [address] [place] [phone] PCP - General 04/05/20 12/16/23 documented as of this encounter
--- OUTSIDE RECORDS SUMMARY | 2024-01-09 01:51 | XMS_ITS | Encounter Summary ---
Author Organization [facility] Address [address] [place] [address] Care Team Providers Care Textile Bag Sewer Name Role Phone Layne Cai MD Primary Care Provider [phone] Reason for Visit * Reason Onset Date Comments Appointment Related 07/28/2020 Encounter Details Date Type Department Care Team (Late st Contact Info) Description 07/28/[address] [facility] [address] [place] [address] Reshma Hilario, LEAD PRODUCER 111 [facility] 2 [place] [address] Appointment Related Social History Tobacco [...] * Telephone Encounter - Marilu [employer]aning - 07/28/2020 6209 EST Spoke w/PT. Did not schedule as he was confused about who the provider is & insists he's never heard of Dr. Hilario. I sent an [employer] message to Dr. Hilario. documented in this encounter Plan of Treatment Upcoming Encounters Date Type Department Care Team (Late st Contact Info) Description 04/09/2024 16:30 EDT Office Visit [facility] Hematology & Oncology - [address] [phone] Erin Barillas MD [address] [place] [address] 2 [place] [phone] 05/18/2024 10:[address] [facility] Rheumatology & Immunology - [address] 635[address] Tod Perez NP [address] [place] [address], [facility] [address] [place] [phone] 06/03/2024 9:00 EST Ancillary Procedure [facility] [address] [place] [address] 06/03/2024 9:00 EST Office Visit [facility] [address] [place] [phone] Claire Lopez NP [address] [place] [address] [address] [place] [address] documented as of this encounter Visit Diagnoses Not on filedocumented in this encounter Care Teams Textile Bag Sewer Relationship Specialty Start Date End Date Layne Cai MD [address] [place] [address] PCP - General 04/05/20 12/16/23 documented as of this encounter
--- OUTSIDE RECORDS SUMMARY | 2024-01-09 01:51 | XMS_ITS | Encounter Summary ---
Author Organization [facility] Address [address] [place] [address] Care Team Providers Care Tangible Personal Property Appraiser Name Role Phone Layne Cai MD Primary Care Provider [phone] Reason for Visit * Reason Onset Date Comments Results 05/15/2020 Encounter Details Date Type Department Care Team (Late st Contact Info) Description 05/15/2020 Telephone [facility] Cancer Center Hematology & Oncology - [facility] [address] [place] [address] Erin Barillas MD 111 [facility], [facility] 2 [place] [address] Results Social History Tobacco Use [...] Miscellaneous Notes * Telephone Encounter - Chikis Ji RN - 05/15/2020 0937 EST Received copy of Praneeth's lab results collected on 05/01/2020 at [facility]. I entered Praneeth's [...] mg daily and she refilled the Hydrea rx request. Outgoing call made to Praneeth's Augustina, I relayed the above information and she is agreeable and understanding. * Telephone Encounter - Jeannette Araiza - 05/15/2020 0827 EST Patients calling for the results of patients labs done at [facility] from 2 weeks ago. documented in this encounter Plan of Treatment Upcoming Encounters Date Type Department Care Team (Late st Contact Info) Description 04/09/2024 16:30 EDT Office Visit [facility] Cancer Center Hematology & Oncology - [address] [phone] Erin Barillas MD 111 [facility], Level [address] [place] [phone] 05/18/2024 10:00 EST Office Visit [facility] Rheumatology & Immunology - [facility] [address] [place], [place] [address] Tod Perez, BUSH HOG OPERATOR 111 [facility], Level [address] [place] [phone] 06/03/2024 9:00 EST Ancillary Procedure [facility] [address] [place], [place] [phone] 06/03/2024 9:00 EST Office Visit [facility] [address] [place], [place] [address] Claire Lopez NP 130 [facility] [address] [place] [phone] documented as of this encounter Procedures Procedure Name Priority Date/Time Associated Diagnosis Comments COMPLETE BLOOD COUNT AND DIFFERENTIAL Routine 05/01/2020 COMPREHENSIVE METABOLIC PANEL (CMP) Routine 05/01/2020 COMPLETE BLOOD COUNT AND DIFFERENTIAL Routine 04/19/2020 COMPREHENSIVE METABOLIC PANEL (CMP) Routine 04/19/2020 documented in this encounter Results * COMPREHENSIVE METABOLIC PANEL (CMP) (05/01/2020) GFR, Calculated, External 59.44 [facility] Glucose, Serum, External 126 [facility] Albumin, External 4.1 [facility] Total Alkaline Phosphatase, External 68 [facility] ALT, External 26 [facility] AST, External 28 [facility] BUN, External 18 [facility] Calculated Calcium, External [facility] Calcium, External 8.6 [facility] Chloride, External 105 [facility] CO2, External 26.2 [facility] Creatinine, External 1.19 [facility] Fasting?, External [facility] Potassium, External 4.3 [facility] Sodium, External 139 [facility] Total Protein, External 7.2 [facility] Bilirubin, Total, External 0.6 [facility] Blood VENOUS BLOOD / Unknown 05/01/2020 Erin Barillas MD CHEMISTRY & BLOOD GA S ORDERABLES Performing Organization Address City/[facility]/ZIP Co de Phone Number [facility] * COMPLETE BLOOD COUNT AND DIFFERENTIAL (05/01/2020) WBC, External 5.93 [facility] [...] ABS Monocytes, External 0.29 [facility] ABS Eosinophils, External 0.15 [facility] ABS Basophils, External 0.03 [facility] Blood VENOUS BLOOD / Unknown 05/01/2020 Erin Barillas MD PACKAGES & DNA PROBE ORDERABLES [facility] * COMPREHENSIVE METABOLIC PANEL (CMP) (04/19/2020) GFR, Calculated, External 53.20 [facility] Glucose, Serum, External 138 [facility] Albumin, External 4.2 [facility] Total Alkaline Phosphatase, External 75 [facility] ALT, External 23 [facility] AST, External 17 [facility] BUN, External 21 [facility] Calculated Calcium, External [facility] Calcium, External 8.9 [facility] Chloride, External 104 [facility] CO2, External 27.6 [facility] Creatinine, External 1.31 [facility] Fasting?, External [facility] Potassium, External 4.5 [facility] Sodium, External 141 [facility] Total Protein, External 6.9 [facility] Bilirubin, Total, External 0.5 [facility] Blood VENOUS BLOOD / Unknown 04/19/2020 Erin Barillas MD CHEMISTRY & BLOOD GA S ORDERABLES [facility] * COMPLETE BLOOD COUNT AND DIFFERENTIAL (04/19/2020) WBC, External 7.43 [facility] [...] ABS Monocytes, External 0.51 [facility] ABS Eosinophils, External 0.15 [facility] ABS Basophils, External 0.06 [facility] Blood VENOUS BLOOD / Unknown 04/19/2020 Erin Barillas MD PACKAGES & DNA PROBE ORDERABLES [facility] documented in this encounter Visit Diagnoses Not on filedocumented in this encounter Care Teams Tangible Personal Property Appraiser Relationship Specialty Start Date End Date Layne Cai MD [address] [place] [phone] PCP - General 04/05/20 12/16/23 documented as of this encounter
--- OUTSIDE RECORDS SUMMARY | 2024-01-09 01:51 | XMS_ITS | Encounter Summary ---
Author Organization [facility] Address [address] [place] [address] Care Team Providers Care Core Blower Name Role Phone Layne Cai MD Primary Care Provider [phone] Reason for Visit * Reason Comments Telemedicine Video Visit Follow-up Encounter Details Date Type Department Care Team (Late st Contact Info) Description 04/21/2020 16:30 EST Telemedicine [facility] Cancer Center Hematology & Oncology - [facility] [address] [place], [place] [phone] Erin Barillas MD 111 [facility], Level [address] [place] [phone] Polycythemia vera (HCC-CMS) (Primary Dx) Social History [...] Progress Notes * Erin Barillas MD - 04/21/2020 1630 EST [...] below. Social history: Retired. Worked for the [employer]. 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, [...] Description 04/09/2024 16:30 EDT Office Visit [facility] Hematology & Oncology [address] [phone] Erin Barillas MD [address] [place] [address] 2 [place] [phone] 05/18/2024 10:00 EST Office Visit [facility] Rheumatology & Immunology [address] [phone] Tod Perez NP [address] [place] [address], [facility] 5 [place] [phone] 06/03/2024 9:00 EST Ancillary Procedure [facility] [address] [place] [phone] 06/03/2024 9:00 EST Office Visit [facility] [address] [place] [phone] Claire Lopez NP [address] [place] [address]-[address] [place] [phone] documented as of this encounter Procedures Procedure Name Priority Date/Time Associated Diagnosis Comments ORDERS - SCANNED 08/03/2020 7:34 EST documented in this encounter Results * ORDERS - SCANNED (08/03/2020 7:34 EST) 08/03/2020 7:34 EST Scan 2 Candle Cutter ADMISSION ORDERABLE S documented in this encounter Visit Diagnoses Diagnosis Polycythemia vera ([facility])- Primary documented in this encounter Care Teams Core Blower Relationship Specialty Start Date End Date Layne Cai MD [address] [place] [phone] PCP - General 04/05/20 12/16/23 documented as of this encounter
--- OUTSIDE RECORDS SUMMARY | 2024-01-09 01:51 | XMS_ITS | Encounter Summary ---
Author Organization [facility] Address [address] [place] [address] Care Team Providers Care Digital Forensics Examiner Name Role Phone Layne Cai MD Primary Care Provider [phone] Claire Lopez NP Unavailable [phone] Tod Perez BODY MECHANIC Unavailable [phone] Vianey Bocanegra APRN Primary Care Provider [phone] Reason for Visit * Reason Onset Date Comments Prior Auth, Medication 06/05/2020 Rasuvo 25 mg Encounter Details Date Type Department Care Team (Late st Contact Info) Description 06/05/2020 Telephone [facility] Rheumatology & Immunology - [address] [phone] Tod Perez NP 111 [facility], Level 5 [place] [address] Prior Auth, Medication (Rasuvo 25mg) Social History Tobacco Use Types Packs/Day Years [...] Dispensed Refills Start Date End Da te methotrexate, PF, (RASUVO, PF,) 25 mg/0.5 mL auto-injector Inject 25 mg into the skin once a week. 12 Syringe 1 06/06/2020 08/31/2020 documented in this encounter Miscellaneous Notes * Telephone Encounter - Blanka Albert RPH - 06/06/2020 0854 EST Patient and informed that a PA is not required for Rasuvo (injectable methotrexate) use. They prefer that this prescription is sent to their [facility] pharmacy. Will discuss use with their pharmacist and call clinic afterwards if additional Zoom training is needed. Will also alert us if cost is an issue. Blanka Albert, Pharm.D., [facility] Pharmacist Clinician - Rheumatology 06/06/2020 * Telephone Encounter - Scot Parikh - 06/05/2020 1301 EST Prior Authorization Not Required Medication: Rasuvo 25mg Insurance Response: drug is covered by current benefit plan Pharmacy: [facility] Prior Authorization Submission Process Medication: Rasuvo 25mg Insurance: GUI MedD Date PA Request Received: 06/01/20 PA Submission Date: 06/05/20 CMM Hansen: [id number] Submitted by: Scot documented in this encounter Plan of Treatment Upcoming Encounters Date Type Department Care Team (Late st Contact Info) Description 04/09/2024 16:30 EDT Office Visit [facility] [place] Hematology & Oncology - [address] [phone] Erin Barillas MD 111 [facility] 2 [place] [phone] 05/18/2024 10:00 EST Office Visit [facility] Rheumatology & Immunology - [address] [phone] Tod Perez NP [address] [place] [address] 5 [place] [phone] 06/03/2024 9:00 EST Ancillary Procedure [facility] Cardiology Clinic [address] [place] [phone] 06/03/2024 9:00 EST Office Visit [facility] Cardiology Clinic [address] [place] [address] [phone] Claire Lopez NP 130 [facility] [address] [address] documented as of this encounter Visit Diagnoses Not on filedocumented in this encounter Additional Health Concerns Infection Onset Date Last Indicated Resolved Time R/O COVID-19 12/28/2020 12/28/2020 01/02/2021 22:1 5 EDT documented as of this encounter Care Teams Digital Forensics Examiner Relationship Specialty Start Date End Date Layne Cai MD [address] [place] [phone] PCP - General 04/05/20 12/16/23 Vianey Bocanegra APRN [address] [phone] PCP - General 12/17/23 Claire Lopez NP [address] [place] [phone] Cardiovascular Disease 11/22/20 Tod Perez NP [address] [place] [address], [facility] 5 [place] [address] Rheumatology 12/28/20 documented as of this encounter
--- OUTSIDE RECORDS SUMMARY | 2024-01-09 01:51 | XMS_ITS | Encounter Summary ---
Author Organization [facility] Address [address] [place] [address] Care Team Providers Care Certified Adaptive Physical Educator Name Role Phone Layne Cai MD Primary Care Provider [phone] Reason for Visit * Reason Onset Date Comments Results 06/28/2020 Encounter Details Date Type Department Care Team (Late st Contact Info) Description 06/28/2020 Telephone [facility] Hematology & Oncology - [facility] [address] [place], [place] [phone] Erin Barillas MD 111 [facility], Level 2 [place] [address] Results Social History Tobacco Use [...] encounter Miscellaneous Notes * Telephone Encounter - MarieKirken - 06/28/2020 7888 EST LABS ENTERED FROM [facility]. documented in this encounter Plan of Treatment Upcoming Encounters Date Type Department Care Team (Late st Contact Info) Description 04/09/2024 16:30 EDT Office Visit [facility] Hematology & Oncology - [address] [phone] Erin Barillas MD [address] [place] [address] 2 [place] [phone] 05/18/2024 10:00 EST Office Visit [facility] Rheumatology & Immunology - [address] [phone] Tod Perez NP [address] [place] [address], [facility] 5 [place] [phone] 06/03/2024 9:00 EST Ancillary Procedure [facility] [address] [place] [phone] 06/03/2024 9:00 EST Office Visit [facility] [address] [place] [address] Claire Lopez NP 130 [facility] [address] [place] [phone] documented as of this encounter Procedures Procedure Name Priority Date/Time Associated Diagnosis Comments COMPLETE BLOOD COUNT AND DIFFERENTIAL Routine 06/22/2020 documented in this encounter Results * (ABNORMAL) COMPLETE BLOOD COUNT AND DIFFERENTIAL (06/22/2020) WBC, External 6.74 [facility] RBC, External 4.93 [facility] Hemoglobin, External 14.4 [facility] HCT, External 46.5 [facility] MCV, External 94.3 [facility] MCH, External 29.2 [facility] MCHC, External 31.0(A) 32.0 - 36.0 [facility] PLT, External 215 [facility] RDW-CV, External 16.8(A) 11.8 - 14.1 [facility] Neutrophils, External 73.1 [facility] Lymphocytes, External 17.5 [facility] Monocytes, External 6.2 [facility] Eosinophils, External 1.9 [facility] Basophils, External 0.6 [facility] ABS Neutrophils, External 4.92 [facility] ABS Lymphs, External 1.18(A) 1.2 - 3.4 [facility] ABS Monocytes, External 0.42 [facility] ABS Eosinophils, External 0.13 [facility] ABS Basophils, External 0.04 [facility] Blood VENOUS BLOOD / Unknown 06/22/2020 Historical Provider PACKAGES & DNA [place] OBE ORDERABLES [facility] documented in this encounter Visit Diagnoses Not on filedocumented in this encounter Care Teams Certified Adaptive Physical Educator Relationship Specialty Start Date End Date Layne Cai MD [address] [place] [address] PCP - General 04/05/20 12/16/23 documented as of this encounter
--- OUTSIDE RECORDS SUMMARY | 2024-01-09 01:51 | XMS_ITS | Encounter Summary ---
Author Organization [facility] Address [address] [place] [address] Care Team Providers Care Manager Produce Name Role Phone Layne Cai MD Primary Care Provider [phone] Reason for Visit * Reason Comments Other pre-op covid 19 test ing Encounter Details Date Type Department Care Team (Late st Contact Info) Description 06/22/2020 9:00 EST Office Visit [facility] - Mobile Testing Department [address] [place] [address] Nurse, [facility] Testing Screening for viral disease (Primary Dx) Social History Tobacco Use Types [...] as of this encounter Progress Notes * Anisha Amezcua - 06/22/2020 0900 EST Covid specimen collected by: Michael Amezcua CCA II Patient tolerated well. Covid instructional hand-out given. documented in this encounter Plan of Treatment Upcoming Encounters Date Type Department Care Team (Late st Contact Info) Description 04/09/2024 16:30 EDT Office Visit [facility] Hematology & Oncology [address] [phone] Erin Barillas MD [address] [place] [address] 2 [place] [phone] 05/18/2024 10:00 EST Office Visit [facility] Rheumatology & Immunology [address] [phone] Tod Perez NP [address] [place] [address], [facility] 5 [place] [phone] 06/03/2024 9:00 EST Ancillary Procedure [facility] Cardiology Clinic [address] [place] [phone] 06/03/2024 9:00 EST Office Visit [facility] Cardiology Clinic [address] [place] [address] [phone] Claire Lopez NP [address] [place] [address]-A [address] [place] [phone] documented as of this encounter Visit Diagnoses Diagnosis Screening for viral disease- Primary Special screening examination for unspecified viral disease documented in this encounter Care Teams Manager Produce Relationship Specialty Start Date End Date Layne Cai MD [address] [place] [phone] PCP - General 04/05/20 12/16/23 documented as of this encounter
--- OUTSIDE RECORDS SUMMARY | 2024-01-09 01:51 | XMS_ITS | Encounter Summary ---
Author Organization [facility] Address [address] [place] [address] Care Team Providers Care Special Effects Technician Name Role Phone Layne Cai MD Primary Care Provider [phone] Reason for Visit * Reason Comments Other battery depletion Encounter Details Date Type Department Care Team (Late st Contact Info) Description 06/27/2020 External Contact [facility] [address] [place] [address] Andres Chawla MD 130 [facility] [address] [place] [address] Pacemaker battery depletion (Primary Dx); Pacemaker; Sick sinus syndrome (HCC-CMS) Social History Tobacco Use Types Packs/Day Years [...] as of this encounter Progress Notes * Andres Chawla MD - 06/27/2020 2332 EST Operative Note ?? Patient:??Praneeth Villanueva ?? :??1945 ?? Date of service:??06/27/2020 ?? Preoperative diagnosis:??Pacemaker battery depletion, Sinus node dysfunction ?? Postoperative diagnosis:??Pacemaker battery depletion, Sinus node dysfunction ?? Procedure: Single chamber (AAI) pacemaker generator change ? Elder Assistant: Andres Chawla MD ?? Anesthesia/sedation: Local and MAC??(Donato Abel CRNA) ?? Fluids: Per anesthesia protocol ?? Preprocedure antibiotic: Cefazolin??2000mg IV x1? Estimated blood loss:??less than 30 mL ?? Specimens: None ?? Drains: None ?? Complications: None ?? Fluoroscopy: 0.1 minutes ?? Indication for procedure:??Pacemaker??battery depletion ?? HPI:??74-year-old man with history of sinus node dysfunction and single-chamber atrial pacemaker implantation in 2011 at [facility]. He was noted on his last device check that his device had come close toERI. He now presents for generator change. ?Procedure in detail: After informed consent was obtained, the patient was brought to the operating room in the fasting state??and??was prepped and draped in the usual sterile manner. ??Cefazolin was??given for perioperative infection prophylaxis. ??After timeout the??left??deltopectoral groove region was anesthetized. ??An incision was made??through the previous incision scar and cautiously taken down towards the device.??A [place] SPARK PlasmaBlade was used to??dissect??around the lead??plug??tofree the device from scar tissue. ??After explanting the device,??the lead was??tested on the external rpg programmer analyst. ??The??lead measurements were??within normal range??and the??lead plug??was [...] incision was closed with a deep Continuous v ertical mattress suture using 2-0 Biosyn. The mid layer with a continuous horizontal mattress suture using 3-0 Biosyn and the superficial layer was continuous horizontal mattress suture using 4-0 Biosyn. ??The skin was closed with Dermabond skin glue and covered with a pressure dressing. ?? Programming: The device was programmed in??AAIR??mode with a lower rate of??60/min,??upper rate 130/min,??output??2.75V at 0.4ms.?Sensitivity was set to 0.45??mV.? Implanted hardware: 1. ??New Device: Medtronic??Red Devil S SR MRI,??[id number], serial number??[id number] 2. ??Right Atrial lead:??Medtronic 5076, 52cm, serial# [id number],??implanted?? 04/09/2012??to the??RA,??pacing threshold??0.5at 0.5ms, impedance??503??ohms,??P??wave??8.6??mV. Explanted device: Pacemaker Medtronic Sensia SR, SESR01, serial number??[id number],??implanted??04/09/2012. ?? Summary: ??1.??Successful??pacemaker generator change for battery depletion. ??2. As the Medtronic 5076 lead was approved MRI conditional, the pacemaker system is now MRI approved by FDA. ?? CPT 63070 ?? Andres Chawla MD documented in this encounter Plan of Treatment Upcoming Encounters Date Type Department Care Team (Late st Contact Info) Description 04/09/2024 16:30 EDT Office Visit [facility] Hematology & Oncology [address] [phone] Erin Barillas MD [address] [place] [address] 2 [place] [phone] 05/18/2024 10:00 EST Office Visit [facility] Rheumatology & Immunology [address] [phone] Tod Perez NP [address] [place] [address] 5 [place] [phone] 06/03/2024 9:00 EST Ancillary Procedure [facility]iology [facility] [address] [place] [address] [phone] 06/03/2024 9:00 EST Office Visit [facility] [address] [place] [address] [phone] Claire Lopez NP [address] [place] [address]-A [address] [place] [address] documented as of this encounter Visit Diagnoses Diagnosis Pacemaker battery depletion- Primary Fitting and adjustment of cardiac pacemaker Pacemaker Cardiac pacemaker in situ Sick sinus syndrome (HCC-CMS) Sinoatrial node dysfunction documented in this encounter Care Teams Special Effects Technician Relationship Specialty Start Date End Date Layne Cai MD [address] [place] [phone] PCP - General 04/05/20 12/16/23 documented as of this encounter
--- OUTSIDE RECORDS SUMMARY | 2024-01-09 01:51 | XMS_ITS | Encounter Summary ---
Author Organization [facility] Address [address] [place] [address] Care Team Providers Care Rad Tech Name Role Phone Layne Cai MD Primary Care Provider [phone] Reason for Visit * Reason Onset Date Comments Results 06/30/2020 Encounter Details Date Type Department Care Team (Late st Contact Info) Description 06/30/2020 Telephone [facility] Cancer Center Hematology & Oncology - [facility] [address] [place], [place] [phone] Erin Barillas MD 111 [facility], Level 2 [place] [address] Results Social History Tobacco Use [...] Notes * Telephone Encounter - MarieKirken - 06/30/2020 1557 EST LABS ENTERED FROM [facility]. Augustinalinda Salazar 06/30/2020 15:58' documented in this encounter Plan of Treatment Upcoming Encounters Date Type Department Care Team (Late st Contact Info) Description 04/09/2024 16:30 EDT Office Visit [facility] Cancer [place] Hematology & Oncology - [address] [phone] Erin Barillas MD [address] [place] [address] 2 [place] [phone] 05/18/2024 10:00 EST Office Visit [facility] Rheumatology & Immunology [address] [phone] Tod Perez NP [address] [place] [address], [facility] 5 [place] [phone] 06/03/2024 9:00 EST Ancillary Procedure [facility] Cardiology Clinic [address] [place] [phone] 06/03/2024 9:00 EST Office Visit [facility] Cardiology Clinic [address] [place] [address] [phone] Claire Lopez NP [address] [place] [address] [facility]-A [address] [place] [phone] documented as of this encounter Procedures Procedure Name Priority Date/Time Associated Diagnosis Comments COMPREHENSIVE METABOLIC PANEL (ONCOLOGY USE ONLY-INC MG) Routine 06/29/2020 COMPLETE BLOOD COUNT AND DIFFERENTIAL Routine 06/29/2020 documented in this encounter Results * (ABNORMAL) COMPREHENSIVE METABOLIC PANEL (ONCOLOGY USE ONLY-INC MG) (06/29/2020) Calcium, External 8.8 [facility] CO2, External 26.4 [facility] AST, External 15 [facility] ALT, External 24 [facility] Bilirubin, Total, External 0.5 [facility] Creatinine, External 1.20 [facility] Calculated Calcium, External [facility] Anion Gap, External [facility] Total Protein, External 6.9 [facility] Potassium, External 4.5 [facility] Total Alkaline Phosphatase, External 78 [facility] Albumin, External 4.0 [facility] BUN, External 19(A) 7 - 18 [facility] GFR, Calculated, External 58.86 [facility] Fasting?, External [facility] Chloride, External 103 [facility] Glucose, Serum, External 102 [facility] Sodium, External 138 [facility] Magnesium, External [facility] Blood VENOUS BLOOD / Unknown 06/29/2020 Historical Provider MD CHEMISTRY & BLOOD GAS ORDERABLES [facility] * (ABNORMAL) COMPLETE BLOOD COUNT AND DIFFERENTIAL (06/29/2020) WBC, External 8.12 [facility] RBC, External 4.99 [facility] Hemoglobin, External 14.5 [facility] HCT, External 46.1 [facility] MCV, External 92.4 [facility] MCH, External 29.1 [facility] MCHC, External 31.5(A) 32.0 - 36.0 [facility] PLT, External 237 [facility] RDW-CV, External 17.6(A) 11.8 - 14.1 [facility] Neutrophils, External 71.0 [facility] Lymphocytes, External 15.8 [facility] Monocytes, External 9.6 [facility] Eosinophils, External 2.3 [facility] Basophils, External 0.6 [facility] ABS Neutrophils, External 5.76 [facility] ABS Lymphs, External 1.28 [facility] ABS Monocytes, External 0.78 [facility] ABS Eosinophils, External 0.19 [facility] ABS Basophils, External 0.05 [facility] Blood VENOUS BLOOD / Unknown 06/29/2020 Historical Provider MD PACKAGES & DNA [place] OBE ORDERABLES [facility] documented in this encounter Visit Diagnoses Not on filedocumented in this encounter Care Teams Rad Tech Relationship Specialty Start Date End Date Layne Cai MD [address] [place] [address] PCP - General 04/05/20 12/16/23 documented as of this encounter
--- OUTSIDE RECORDS SUMMARY | 2024-01-09 01:51 | XMS_ITS | Encounter Summary ---
Author Organization [facility] Address [address] [place] [address] Care Team Providers Care Crystal Syrup Maker Name Role Phone Layne Cai MD Primary Care Provider [phone] Encounter Details Date Type Department Care Team (Latest Contact Info) Description 04/12/2020 13:00 EDT - 04/12/2020 23:59 EDT Hospital Encounter [facility] [address] [place] [address] Discharge Disposition: Home or Self Care Social [...] vera Take 500 mg by mouth daily. 05/15/2020 ibuprofen (MOTRIN) 200 mg tablet Take 200 mg by mouth every 6 hours as needed for Pain. 12/15/2020 methotrexate 2.5 mg tabletIndications:Inflamm ation around joint,Encounter for long-term (current) use of medications Take 9 Tabs by mouth once a week. 16 Tab 1 04/10/2020 05/29/2020 simvastatin (ZOCOR) 40 mg tablet Take 40 mg by mouth every evening. 11/09/2020 documented as of this encounter Discharge Disposition Disposition Code Departure Means Destination Home or Self [facility] documented in this encounter Plan of Treatment Upcoming Encounters Date Type Department Care Team (Late st Contact Info) Description 04/09/2024 16:30 EDT Office Visit [facility] Hematology & Oncology - [address] [phone] Erin Barillas MD [address] [place] [address], Level [address] [place] [address] 05/18/2024 10:00 EST Office Visit [facility] Rheumatology & Immunology - [facility] [address] [place] [address] Tod Perez, AIR POLLUTION COMPLIANCE INSPECTOR 111 [facility], Level [address] [place] [address] 06/03/2024 9:00 EST Ancillary Procedure [facility] Cardiology Clinic [address] [place] [phone] 06/03/2024 9:00 EST Office Visit [facility] Cardiology Clinic [address] [place] [address] Claire Lopez NP 130 [facility] [address] [place] [phone] documented as of this encounter Visit Diagnoses Not on filedocumented in this encounter Care Teams Crystal Syrup Maker Relationship Specialty Start Date End Date Layne Cai MD [address] [place] [address] PCP - General 04/05/20 12/16/23 documented as of this encounter
--- OUTSIDE RECORDS SUMMARY | 2024-01-09 01:51 | XMS_ITS | Encounter Summary ---
Author Organization [facility] Address [address] [place] [address] Care Team Providers Care Outside Machinist Apprentice Name Role Phone Layne Cai MD Primary Care Provider [phone] Claire Lopez AUTOMOTIVE SERVICE DIRECTOR Unavailable [phone] Tod Perez AUTOMOTIVE SERVICE DIRECTOR Unavailable [phone] Vianey Bocanegra APRN Primary Care Provider [phone] Encounter Details Date Type Department Care Team (Late st Contact Info) Description 06/22/2020 Lab Requisition [facility] Pathology & Laboratory Medicine - [facility] [address], [place] [phone] Outr Resulting Lab, Provider Social History Tobacco [...] [facility] Hematology & Oncology [address] 190131 Erin Barillas MD [address] [place] [address] 2 [place] [phone] 05/18/2024 10:00 EST Office Visit [facility] Rheumatology & Immunology [address] 040101 Tod Perez NP [address] [place] [address], [facility] 5 [place] [phone] 06/03/2024 9:00 EST Ancillary Procedure [facility] [address] [place] [address] [phone] 06/03/2024 9:00 EST Office Visit [facility] [address] [place] [address] [phone] Claire Lopez NP [address] [place] [address] [address] [place] [address] documented as of this encounter Procedures Procedure Name Priority Date/Time Associated Diagnosis Comments ZZCOVID-19 TEST [facility] LAB PCR Today 06/22/2020 9:02 EST COVID-19 TESTING Routine 06/22/2020 9:02 EST documented in this encounter Results * COVID-19 TEST [facility] LAB PCR (06/22/2020 9:02 EST) Swab ENTIRE NASOPHARYNX / Unknown 06/22/2020 9:02 EST 06/22/2020 15:45 EST Provider Outr Resulting Lab MICROBIOLOGY - GENERAL ORDERABLES Performing Organization Address City/[facility] Co de Phone Number [facility] [address] [place] [address] * COVID-19 TESTING (06/22/2020 9:02 EST) COVID-19 rt-PCR Result Negative Negative 06/22/2020 20:34 EST [facility] Comment: This test has [...] history, and epidemiological information. Performed on the At[employer]her Fusion instrument Performing Lab [facility] Lab 06/22/2020 20:34 EST [facility] Swab 06/22/2020 9:02 EST 06/22/2020 15:45 EST Provider Outr Resulting Lab MICROBIOLOGY - GENERAL ORDERABLES Performing Organization Address City/[facility]/ZIP Co de Phone Number [facility] [address] [place] [address] documented in this encounter Visit Diagnoses Not on filedocumented in this encounter Additional Health Concerns Infection Onset Date Last Indicated Resolved Time R/O COVID-19 12/28/2020 12/28/2020 01/02/2021 22:1 5 EDT documented as of this encounter Care Teams Outside Machinist Apprentice Relationship Specialty Start Date End Date Layne Cai MD [address] [place] [address] PCP - General 04/05/20 12/16/23 Vianey Bocanegra APRN 26 [facility] [address] [place] [address] PCP - General 12/17/23 Claire Lopez NP [address] [place] [phone] Cardiovascular Disease 11/22/20 Tod Perez AUTOMOTIVE SERVICE DIRECTOR [address] [place] [address], Level [address] [place] [phone] Rheumatology 12/28/20 documented as of this encounter
--- OUTSIDE RECORDS SUMMARY | 2024-01-09 01:51 | XMS_ITS | Encounter Summary ---
Author Organization [facility] Address [address] [place] [address] Care Team Providers Care Scuba Instructor Name Role Phone Layne Cai MD Primary Care Provider [phone] Encounter Details Date Type Department Care Team (Late st Contact Info) Description 07/07/2020 Orders Only [facility] Cancer Center Hematology & Oncology - Main [place] [address] [place], [place] [phone] Alisa Powell, RN Polycythemia vera ([facility]) (Primary Dx) Social History Tobacco Use Types [...] Info) Description 04/09/2024 16:30 EDT Office Visit [facility] Hematology & Oncology [address] [phone] Erin Barillas MD [address] [place] [address] 2 [place] [phone] 05/18/2024 10:00 EST Office Visit [facility] Rheumatology & Immunology [address] [phone] Tod Perez NP [address] [place] [address] 5 [place] [phone] 06/03/2024 9:00 EST Ancillary Procedure [facility] [address] [place] [address]662 06/03/2024 9:00 EST Office Visit [facility] [address] [place] [address] [phone] Claire Lopez NP 130 [facility]-A [address] [place] [phone] documented as of this encounter Visit Diagnoses Diagnosis Polycythemia vera ([facility])- Primary documented in this encounter Care Teams Scuba Instructor Relationship Specialty Start Date End Date Layne Cai MD [address] [place] [phone] PCP - General 04/05/20 12/16/23 documented as of this encounter
--- OUTSIDE RECORDS SUMMARY | 2024-01-09 01:51 | XMS_ITS | Encounter Summary ---
Author Organization [facility] Address [address] [place] [address] Care Team Providers Care Box Loader Name Role Phone Layne Cai MD Primary Care Provider [phone] Claire Lopez LEATHER SPRAYER Unavailable [phone] Tod Perez LEATHER SPRAYER Unavailable Vianey Bocanegra APRN Primary Care Provider [phone] Reason for Visit * Reason Onset Date Comments Medications Refill 08/14/2020 Encounter Details Date Type Department Care Team (Late st Contact Info) Description 08/14/2020 Refill [facility] Cancer Center Hematology & Oncology - [address] [phone] Erin Barillas MD 111 [facility] Level 2 [place] [address] Medications Refill Social History Tobacco [...] for 90 days. 90 Cap 08/14/2020 11/12/2020 documented in this encounter Plan of Treatment Upcoming Encounters Date Type Department Care Team (Late st Contact Info) Description 04/09/2024 16:30 EDT Office Visit [facility] Cancer Center Hematology & Oncology - [address] [phone] Erin Barillas MD [address] [place] [address] 2 [place] [phone] 05/18/2024 10:00 EST Office Visit [facility] Rheumatology & Immunology - [address] [phone] Tod Perez NP [address] [place] [address] 5 [place] [phone] 06/03/2024 9:00 EST Ancillary Procedure [facility] Clinic [address] [place] [phone] 06/03/2024 9:00 EST Office Visit [facility]iology Clinic [address] [place] [address] [phone] Claire Lopez NP 130 [facility] 21 [place] [phone] documented as of this encounter Visit Diagnoses Not on filedocumented in this encounter Discontinued Medications Medication Sig Discontinue Reason Start Date End Da te hydroxyurea (HYDREA) 500 mg capsuleIndications:polycy themia vera Take 1 Cap by mouth daily for 90 days. Reorder 05/15/2020 08/14/2020 documented as of this encounter Additional Health Concerns Infection Onset Date Last Indicated Resolved Time R/O COVID-19 12/28/2020 12/28/2020 01/02/2021 22:1 5 EDT documented as of this encounter Care Teams Box Loader Relationship Specialty Start Date End Date Layne Cai MD [address] [place] [address] PCP - General 04/05/20 12/16/23 Vianey Bocanegra APRN 26 [facility] 185 [place] [address] PCP - General 12/17/23 Claire Lopez NP [address] [address] Cardiovascular Disease 11/22/20 Tod Perez, FESTUS 111 [facility], [facility] 5 [place] [address] Rheumatology 12/28/20 documented as of this encounter
--- OUTSIDE RECORDS SUMMARY | 2024-01-09 01:51 | XMS_ITS | Encounter Summary ---
Author Organization [facility] Address [address] [place] [address] Care Team Providers Care Psychiatric Lpn Name Role Phone Layne Cai MD Primary Care Provider [phone] Encounter Details Date Type Department Care Team (Late st Contact Info) Description 07/27/2020 Orders Only [facility] Cancer Center Hematology & Oncology - Main [place] [address] [place], [place] [phone] Alisa Powell, RN Polycythemia vera ([facility]) (Primary Dx) Social History Tobacco Use [...] Info) Description 04/09/2024 16:30 EDT Office Visit [facility] Hematology & Oncology [address] [phone] Erin Barillas MD [address] [place] [address] 2 [place] [phone] 05/18/2024 10:00 EST Office Visit [facility] Rheumatology & Immunology [address] [phone] Tod Perez NP [address] [place] [address] 5 [place] [phone] 06/03/2024 9:00 EST Ancillary Procedure [facility] Cardiology Clinic [address] [place] [address] [phone] 06/03/2024 9:00 EST Office Visit [facility] Cardiology Clinic [address] [place] [address] [phone] Claire Lopez NP 130 [facility]-[address] [place] [phone] documented as of this encounter Visit Diagnoses Diagnosis Polycythemia vera ([facility])- Primary documented in this encounter Care Teams Psychiatric Lpn Relationship Specialty Start Date End Date Layne Cai MD [address] [place] [phone] PCP - General 04/05/20 12/16/23 documented as of this encounter
--- OUTSIDE RECORDS SUMMARY | 2024-01-09 01:51 | XMS_ITS | Encounter Summary ---
Author Organization [facility] Address [address] [place] [address] Care Team Providers Care Deputy Commonwealth'S Attorney Name Role Phone Layne Cai MD Primary Care Provider [phone] Reason for Visit * Reason Onset Date Comments Medications Refill 08/14/2020 Encounter Details Date Type Department Care Team (Late st Contact Info) Description 08/14/2020 Refill [facility] Rheumatology & Immunology - [facility] [address] [place] [address] Tod Perez, PRIVATE CLIENT ADVISOR 111 [facility], Level 5 [place] [phone] Medications Refill Social History Tobacco Use Types [...] a week. 120 Tab 3 08/14/2020 11/12/2020 documented in this encounter Miscellaneous Notes * Telephone Encounter - Zari Mccabe RN - 08/14/2020 1139 ESTFrom: Praneeth Villanueva To: Office of Tod Perez APRN Sent: 08/14/2020 7:56 EST Subject: Medication Renewal Request Refills have been requested for the following medications: methotrexate 2.5 mg tablet [Tod Perez, BATSHEVA] Preferred pharmacy: [id number] [facility] [address] documented in this encounter Plan of Treatment Upcoming Encounters Date Type Department Care Team (Late st Contact Info) Description 04/09/2024 16:30 EDT Office Visit [facility] Cancer Center Hematology & Oncology - [address] [phone] Erin Barillas MD [address] [place] [address] 2 [place] [phone] 05/18/2024 10:00 EST Office Visit [facility] Rheumatology & Immunology - [address] [phone] Tod Perez NP 111 [facility], [facility] 5 [place] [phone] 06/03/2024 9:00 EST Ancillary Procedure [facility] Cardiology Clinic [address] [place] [address] 06/03/2024 9:00 EST Office Visit [facility] Cardiology Clinic [address] [place] [address] [phone] Claire Lopez NP 130 [facility] [address] [place] [address] documented as of this encounter [...] Tabs by mouth once a week. Reorder 06/01/2020 08/14/2020 documented as of this encounter Care Teams Deputy Commonwealth'S Attorney Relationship Specialty Start Date End Date Layne Cai MD [address] [place] [phone] PCP - General 04/05/20 12/16/23 documented as of this encounter
--- OUTSIDE RECORDS SUMMARY | 2024-01-09 01:51 | XMS_ITS | Encounter Summary ---
Author Organization [facility] Address [address] [place] [address] Care Team Providers Care Floral Merchandiser Name Role Phone Layne Cai MD Primary Care Provider [phone] Reason for Visit * (Routine) - Closed Specialty Diagnoses / Procedures Referred By Marissa carney Referred To Contact Diagnoses Pacemaker Procedures CARDIAC IMPLANT CHECK - IN CLINIC Claire Lopez NP 130 [facility]-[address] [place] [address] Referral ID Status Reason Start Date Expiration Date Visits Re quested Visits Authorized [id number] Closed 05/11/2019 1 1 Encounter Details Date Type Department Care Team (Late st Contact Info) Description 05/19/2020 14:15 EST Ancillary Procedure [facility] Cardiology Clinic [address] [place] [address] Social History Tobacco Use Types [...] [facility] Hematology & Oncology [address] [phone] Erin Barillas MD [address] [place] [address] 2 [place] [phone] 05/18/2024 10:00 EST Office Visit [facility] Rheumatology & Immunology [address] 115171 Tod Perez NP 111 [facility] 5 [place] [phone] 06/03/2024 9:00 EST Ancillary Procedure [facility] Cardiology Clinic [address] [place] [address] [phone] 06/03/2024 9:00 EST Office Visit [facility] Clinic [address] [place] [address] [phone] Claire Lopez NP [address] [place] [address] [address] [place] [address] documented as of this encounter Visit Diagnoses Not on filedocumented in this encounter Orders Imaging Orders Without Results Count Last Order ed Date First Ordered Date CARDIAC IMPLANT CHECK - IN CLINIC 1 020 documented in this encounter Care Teams Floral Merchandiser Relationship Specialty Start Date End Date Layne Cai MD [address] [place] [phone] PCP - General 04/05/20 12/16/23 documented as of this encounter
--- OUTSIDE RECORDS SUMMARY | 2024-01-09 01:51 | XMS_ITS | Encounter Summary ---
Author Organization [facility] Address [address] [place] [address] Care Team Providers Care Mammography Technician Name Role Phone Dereck Schultz MD Primary Care Provider U navailpiero Reason for Visit * Reason Comments Joint Pain inflammatory arthrit is Encounter Details Date Type Department Care Team (Late st Contact Info) Description 03/02/2020 10:00 EDT Office Visit [facility] Rheumatology & Immunology - [facility] [address] [place] [address] Tod Perez NP 111 [facility], Level [address] [place] [address] Inflammation around joint (Primary Dx); History of seronegative inflammatory arthritis; Encounter for long-term (current) use of medications [...] * Patient Instructions* Tod Perez, BATSHEVA - 03/02/2020 10:00 EDT 1. [...] Many Vaccine Information Statements are available in [place]o and other languages. See www.immunize.org/vis [place] [...] it yourself through the VAERS website at www.vaers.[facility].gov, or by calling . VAERS does not give medical advice. 6. How can I learn more? Ask your health care provider. He or she can give you the vaccine package insert or suggest other sources of information. ??? Call your local or state health department. ??? Contact the Centers for Disease Control and Prevention (CDC): - Call (3-064-BXI-INFO) or - Visit [facility]???s website at www.cdc.gov/vaccines Vaccine Information Statement Recombinant Zoster Vaccine 07/28/2017 Department of Health and Human Services Centers for Disease Control and Prevention Office Use Only documented in this encounter Ordered Prescriptions Prescription Sig Dispensed Refills Start Date End Da te methotrexate 2.5 mg tabletIndications:Inflamma tion around joint,Encounter for long-term (current) use of medications Take 7 Tabs by mouth once a week. 84 Tab 1 03/02/2020 04/10/2020 documented in this encounter Progress Notes * Tod Perez APRN - 03/02/2020 1000 EDT Images from [...] of symptoms - Travelled to [place] including [facility]. Able to ambulate without difficulty. - AM [...] hand swelling. Was ester 5th meng in [place] at that time. new dx around 04/2019 of polycythemia: elevated RBC and hemoglobin Had repeat labs at [facility] 05/2019 PCP was suppose to set [...] right hand dorsal as well, not as much as left, trouble making tight fist with left hand, No significant tenderness, swelling, effusions,erythema or warmth is present. Appropriate range of motion present. Hips/Knee: No significant tenderness, or erythema or warmth is present. Appropriate range of motionpresent. Ankle/Foot: swelling left lateral ankle - ? Tenosynovitis? -pt states this never changes and is chronic, swelling right medial ankle, soft tissue swelling vs edema right dorsal surface No significanttenderness, swelling, effusions, erythema or warmth is present. Appropriate range of motion present. LABS: Results for DEON ANDERSON ( ) as of 03/01/2020 09:09 Ref. [...] 135 05/10/2014 ?? C4 27 05/10/2014 ?? [facility]: 11/18/18: CBC with differential: CBC [...] Status: Final result ?Visible to patient: Yes (Phase Eight Online) Next appt: 05/25/2018 at 11:40 in Rheumatology (Sudhir Rosales MD) Order: [id number] ? 1yr ago ?? Pathology Report: SURGICAL PATHOLOGY REPORT Reports generated via electronic interface contain original data; however they are lacking the format of the original report. Caution should be taken when reading/interpreting unformatted reports. Name: ? DEON VILLANUEVA ? Accession #: ? [id number] ? : ? 1945 (Age: 71) ??M ?Collect Date: ? 10/23/2016 ? Location: ? [facility] ? Receive Date: ? 10/24/2016 ? Provider: SHREYA LEA MD Copy to: [facility] ? Final Pathologic Diagnosis: A. ??GASTROESOPHAGEAL JUNCITON, [...] 0.1 cm). Submitted intact in B1. Ann Blanka 10/25/2016 7:55 AM ?? Results: SURGICAL PATHOLOGY Status: Final result (Collected: 10/23/2016 18:29) ?? SURGICAL PATHOLOGY Status: Final result ?Visible to patient: Yes (Phase Eight Online) Next appt: 05/25/2018 at 11:40 in Rheumatology (Sudhir Rosales MD) Order: [id number] ? 1yr ago ?? Pathology Report: SURGICAL PATHOLOGY REPORT Reports generated via electronic interface contain original data; however they are lacking the format of the original report. Caution should be taken when reading/interpreting unformatted reports. Name: ? DEON VILLANUEVA ? Accession #: ? [id number] ? : ? 1945 (Age: 71) ??M ?Collect Date: ? 10/23/2016 ? Location: ? [facility] ? Receive Date: ? 10/24/2016 ? Provider: SHREYA LEA MD Copy to: [facility] ? Final Pathologic Diagnosis: A. ??GASTROESOPHAGEAL JUNCITON, [...] Jul 2019 with hand swelling. Was in [place] at that time. Received prednisone burst from [...] if needed. Tod Perez APRN 03/02/2020 10:35 * Zari Mccabe RN - 03/02/2020 1000 EDT [...] [facility] H[facility] On[facility] - [address] [address] Erin Barillas MD [address] [place] [address], [facility] 2 [place] [address] 05/18/2024 10:00 EST Office Visit [facility] Rheumatology & Immunology - [address] [phone] Tdo Perez, FESTUS [address] [place] [address] 5 [place] [address] 06/03/2024 9:00 EST Ancillary Procedure [facility] Cardiology Clinic 130 [place], [place] 127[address] 06/03/2024 9:00 EST Office Visit [facility] Cardiology Clinic [address] [place] [address] [phone] Claire Lopez NP 130 [facility] MOB-A [address] [place] [phone] documented as of this encounter Visit Diagnoses Diagnosis Inflammation around joint- Primary Enthesopathy of unspecified site History of seronegative inflammatory arthritis Encounter for long-term (current) use of medications Encounter for long-term (current) use of other medications documented in this encounter Discontinued Medications Medication Sig Discontinue Reason Start Date End Da te predniSONE (DELTASONE) 5 mg tablet Take 1 Tab by mouth daily. 5mg daily x 14-21 then taper to 2.5 mg x 7 days Therapy completed 10/25/2019 03/02/2020 methotrexate 2.5 mg tabletIndications:Inflamm ation around joint,Encounter for long-term (current) use of medications Take 6 Tabs by mouth once a week. Reorder 12/02/2019 03/02/2020 documented as of this encounter Historical Medications * This list may reflect changes made after this encounter. Medication Sig Dispensed Refills Start Date End Date hydroxyurea (HYDREA) 500 mg capsuleIndications:polycy themia vera Take 500 mg by mouth daily. 05/15/2020 added in this encounter Care Teams Mammography Technician Relationship Specialty Start Date End Date Dereck Schultz MD PCP - General 04/07/19 04/04/20 documented as of this encounter
--- OUTSIDE RECORDS SUMMARY | 2024-01-09 01:51 | XMS_ITS | Encounter Summary ---
Author Organization [facility] Address [address] [place] [address] Care Team Providers Care Psychiatric Security Nurse Name Role Phone Layne Cai MD Primary Care Provider [phone] Encounter Details Date Type Department Care Team (Late st Contact Info) Description 06/22/2020 Results Only [facility] Cardiology Clinic [address] [place] [address] Andres Chawla MD 130 [facility]-A [address] [place] [address] Social History Tobacco Use Types [...] [facility] Hematology & Oncology - [address] [phone] Erin Barillas MD [address] [place] [address] 2 [place] [phone] 05/18/2024 10:00 EST Office Visit [facility] Rheumatology & Immunology [address] [phone] Tod Perez NP [address] [place] [address] 5 [place] [phone] 06/03/2024 9:00 EST Ancillary Procedure [facility] Cardiology Clinic [address] [place] [address] 06/03/2024 9:00 EST Office Visit [facility] Cardiology Clinic [address] [place] [address] Claire Lopez NP [address] [place] [address]-[address] [place] [address] documented as of this encounter Procedures Procedure Name Priority Date/Time Associated Diagnosis Comments COVID-19 TESTING Routine 06/22/2020 9:02 EST documented in this encounter Results * COVID-19 TESTING (06/22/2020 9:02 EST) Performing Lab [place] [facility] () 06/23/2020 3:33 EST [facility] Comment: Please indicate the Triage TierT1 Test performed or referred by The [address] [address] COVID-19 rt-PCR Result Not Detected Negative 06/23/2020 3:33 EST [facility] Comment: This test has not been FDA [...] ? 360bbb-3(b) (1), unless the authorization is terminated or revoked sooner. Negative results do not preclude 2019-nCoV infection and should not be used as the sole basis for treatment or other patient management decisions. Negative results must be combined with clinical observations, patient history, and epidemiological information. Performed on the [employer] Fusion instrument 06/22/2020 9:02 EST 06/22/2020 10:58 EST Andres Chawla MD MICROBIOLOGY - GENERAL ORDERABLES Performing Organization Address City/State/[facility] Co de Phone Number [facility] [address] [place] [address] documented in this encounter Visit Diagnoses Not on filedocumented in this encounter Care Teams Psychiatric Security Nurse Relationship Specialty Start Date End Date Layne Cai MD [address] [place] [address] PCP - General 04/05/20 12/16/23 documented as of this encounter
--- OUTSIDE RECORDS SUMMARY | 2024-01-09 01:51 | XMS_ITS | Encounter Summary ---
Author Organization [facility] Address [address] [place] [address] Care Team Providers Care Real Estate Services Coordinator Name Role Phone Layne Cai MD Primary Care Provider [phone] Reason for Visit * Reason Onset Date Comments Coordination Of Care 08/01/2020 Encounter Details Date Type Department Care Team (Late st Contact Info) Description 08/01/2020 Telephone [facility] Center Hematology & Oncology - [facility] [address], [place] [phone] Reshma Hilario, DRYWALL INSTALLER [address] [facility], Level 2 [place] [phone] Coordination Of Care Social History Tobacco Use [...] encounter Miscellaneous Notes * Telephone Encounter - Reshma Hilario, SOLID WASTE DISPOSAL MANAGER - 08/01/2020 1323 EST ----- Message from [employer] sent at 07/28/2020 14:53 EST ----- Regarding: Confused Patient Good afternoon Dr. Hilario, I reached out to this patient in attempt to schedule a Therapeutic Phlebotomy for next week, and hedidn't have a clue what I was talking about. He said the only provider he sees in [place] is and he will not do anything without first speaking with her. I suggested he contact the office for more information but I wanted to inform you, too. Please let me know if there's anything I truman to help. Have a great day- Marilu Cleaning ----- I called Praeneth to help clarify. No answer. Left message on machine asking for call back. -Diana Hilario NP documented in this encounter Plan of Treatment Upcoming Encounters Date Type Department Care Team (Late st Contact Info) Description 04/09/2024 16:30 EDT Office Visit [facility] Hematology & Oncology [address] [phone] Erin Barillas MD [address] [place] [address], Level 2 [place] [phone] 05/18/2024 10:00 EST Office Visit [facility] Rheumatology & Immunology - [address] 2417[address] Tod Perez NP 111 [facility], Level 5 [place] [address] 06/03/2024 9:00 EST Ancillary Procedure [facility] [address] [place] [phone] 06/03/2024 9:[address] EST Office Visit [facility] [address] [place] [address] Claire Lopez, FESTUS 130 [facility] [address] [place] [address] documented as of this encounter Visit Diagnoses Not on filedocumented in this encounter Care Teams Real Estate Services Coordinator Relationship Specialty Start Date End Date Layne Cai MD [address] [place] [phone] PCP - General 04/05/20 12/16/23 documented as of this encounter
--- OUTSIDE RECORDS SUMMARY | 2024-01-09 01:51 | XMS_ITS | Encounter Summary ---
Author Organization [facility] Address [address] [place] [address] Care Team Providers Care Assembly Member Name Role Phone Dereck Schultz MD Primary Care Provider U navailable Reason for Visit * Reason Onset Date Comments Follow-up 03/06/2020 Encounter Details Date Type Department Care Team (Late st Contact Info) Description 03/06/2020 Telephone [facility] Cancer Center Hematology & Oncology - [facility] [place] [address] [place], [place] [phone] Chikis Ji RN Follow-up Social History Tobacco Use Types Packs/Day Years [...] and will get repeat labs done at [facility] (this facility already has standing lab orders in place). * Telephone Encounter - Chikis Ji RN - 03/06/2020 1244 EDT Entered external lab results collected today at [facility] lab. Routed encounter to Dr. Barillas for review. documented in this encounter Plan of Treatment Upcoming Encounters Date Type Department Care Team (Late st Contact Info) Description 04/09/2024 16:30 EDT Office Visit [facility] Cancer Center Hematology & Oncology - [address] [phone] Erin Barillas MD 111 [facility] 2 [place] [phone] 05/18/2024 10:00 EST Office Visit [facility] Rheumatology & Immunology - [address] [phone] Tod Perez NP 111 [facility], [facility] 5 [place] [phone] 06/03/2024 9:00 EST Ancillary Procedure [facility] Cardiology Clinic [address] [place] [address] 06/03/2024 9:00 EST Office Visit [facility] Cardiology Clinic [address] [place] [address] Claire Lopez, FESTUS 130 [facility] [address] [place] [address] documented as of this encounter Procedures Procedure Name Priority Date/Time Associated Diagnosis Comments COMPLETE BLOOD COUNT AND DIFFERENTIAL Routine 03/06/2020 COMPREHENSIVE METABOLIC PANEL (CMP) Routine 03/06/2020 documented in this encounter Results * COMPLETE BLOOD COUNT AND DIFFERENTIAL (03/06/2020) WBC, External 4.50 [facility] POINT OF CARE [...] ABS Monocytes, External 0.25 [facility] ABS Eosinophils, External 0.11 [facility] ABS Basophils, External 0.02 [facility] Blood VENOUS BLOOD / Unknown 03/06/2020 Erin Barillas MD PACKAGES & DNA PROBE ORDERABLES [facility] * COMPREHENSIVE METABOLIC PANEL (CMP) (03/06/2020) GFR, Calculated, External >60 [facility] Glucose, Serum, External 118 [facility] Albumin, External 4.0 [facility] Total Alkaline Phosphatase, External 61 [facility] ALT, External 18 [facility] AST, External 21 [facility] BUN, External 18 [facility] Calculated Calcium, External [facility] Calcium, External 8.8 [facility] Chloride, External 105 [facility] CO2, External 29.3 [facility] Creatinine, External 1.08 [facility] Fasting?, External [facility] Potassium, External 4.5 [facility] Sodium, External 139 [facility] Total Protein, External 6.7 [facility] Bilirubin, Total, External 0.9 [facility] Blood VENOUS BLOOD / Unknown 03/06/2020 Erin Barillas MD CHEMISTRY & BLOOD GA S ORDERABLES [facility] documented in this encounter Visit Diagnoses Not on filedocumented in this encounter Care Teams Assembly Member Relationship Specialty Start Date End Date Dereck Schultz MD PCP - General 04/07/19 04/04/20 documented as of this encounter
--- OUTSIDE RECORDS SUMMARY | 2024-01-09 01:51 | XMS_ITS | Encounter Summary ---
Author Organization [facility] Address [address] [place] [address] Care Team Providers Care Smoking Pipe Maker Name Role Phone Layne Cai MD Primary Care Provider [phone] Reason for Visit * Reason Onset Date Comments Pacemaker Problem 05/22/2020 Needs generato r change Labs Only 05/22/2020 06/22/20 9:00am Encounter Details Date Type Department Care Team (Late st Contact Info) Description 05/22/2020 Telephone [facility] Cardiology Clinic [address] [place] [address] Claire Lopez NP 130 [facility] [address] [place] [address] Pacemaker Problem (Needs generator change); Labs Only (06/22/20 9:00am) Social History Tobacco Use Types Packs/Day Years [...] encounter Miscellaneous Notes * Telephone Encounter - Ruthie Cheung RN - 06/26/2020 1137 EST OR called to request that patients OR time change to 1PM. Per time change OK. Per OR they called patient and [employer] and they are also OK with time change * Telephone Encounter - Liz Alvarez - 06/19/2020 1614 EST ..C-19 screening recommended by provider. Routed for testing ordering. Pre Surgery Clearance- 06/27 Vehicle: pittman escape Color: white Cell #: [phone] Spoke to patient and verbally gave instructions for Testing Facility. Patient is instructed to be there at 9:00am sharp on 06/22/20. * Telephone Encounter - Thony Brooks RN - 06/19/2020 1526 EST Pt has a scheduled appt at [facility] on 07/04/20 and they can do a wound check on his surgical site at that time. * Telephone Encounter - Bronson Padilla - 06/19/2020 1311 EST Needs covid test scheduled on 06/22. * Telephone Encounter - Thony Brooks RN - 06/19/2020 1255 EST [facility]ulers to schedule patient for pre procedure COVID-19 screening. * Telephone Encounter - Sophie Chicas - 06/19/2020 1254 EST Called patient to schedule 4 week follow up with Claire, scheduled for 07/25/20. Patient's asked about having wound check done at PCP at [facility]? * Telephone Encounter - Thony Brooks RN - 06/19/2020 0858 EST Single Chamber Pacemaker Generator Change requested by Claire Lopez APRN for Sick Sinus Syndrome. Timeframe: 06/27/20 Location: [facility] Same Day Surgery unit. Physician Order form [...] receiving sedation and will not be able todrive. Patient verbalizes understanding that if they do not have a responsible person to drive themthen the procedure will have to be rescheduled and that a bus or taxi is not acceptable for this situation. Current guidelines require patient have a screening test for COVID-19 and they are requesting thosebe done 5 days prior to the procedure. Order placed. Pt wondered about getting the COVID screening done closer to home, in [facility]. Advised pt thatis acceptable to do so, but after explaining steps to register on line and that he would need to email the results to the office, pt decided to just have the COVID screening as ordered, performed at [facility] testing site. Wound Check scheduled in the PCP office ([facility]) for 07/04/20. 4 week follow up visit in office for device check and office visit with Claire Lopez APRN needsto be scheduled. Will forward to scheduling. Letter with detailed information as above printed and mailed to patient on 06/19/20. Patient verbalizes understanding of above information and advised to contact office as needed for questions or for clarification. * Telephone Encounter - Thony Brooks RN - 05/25/2020 1555 EST Called and offered 06/27/20 for generator change to see if that date works for pt/spouse. That is agreeable with them. Booking slip sent to the [facility] scheduling office requesting that date at either 1300 or 1400 hrs. Will contact pt with further details when date/time of procedure is confirmed. * Telephone Encounter - Claire Lopez APRN - 05/25/2020 1217 EST Wound check needs to be within 5-7 days of generator change. I already had Ricardo fax my OV note anddevice check. Thanks. * Telephone Encounter - Thony Brooks RN - 05/24/2020 1048 EST Routing to BATSHEVA Mar. Can you clarify how urgently patient is in need of generator change? * Telephone Encounter - Vianey Stark - 05/24/2020 1030 EST Call from [facility]. Pt has an appt scheduled already for 07/04/20. Wanted to know if this is an appropriate f/u time frame. The PCP would like any office notes, labs, testing faxed to them prior to checkup. * Telephone Encounter - Thony Brooks RN - 05/22/2020 [...] check to be performed by PCP at [facility]. * Telephone Encounter - Claire Lopez APRN - 05/22/2020 1150 EST He needs a visit for wound check with his PCP once he has been scheduled. Is from [facility]. Thanks. * Telephone Encounter - Vianey Stark - 05/22/2020 1016 EST Call from Solomon at PCP office. Returning call to Claire to discuss this patients pace maker. documented in this encounter Plan of Treatment Upcoming Encounters Date Type Department Care Team (Late st Contact Info) Description 04/09/2024 16:30 EDT Office Visit [facility] Hematology & Oncology - [address] [phone] Erin Barillas MD 111 [facility], [facility] 2 [place] [phone] 05/18/2024 10:00 EST Office Visit [facility] Rheumatology & Immunology - [address] [phone] Tod Perez NP 111 [facility], [facility] 5 [place] [phone] 06/03/2024 9:00 EST Ancillary Procedure [facility] Cardiology Clinic [address] [place], [place] [address] 06/03/2024 9:00 EST Office Visit [facility] Cardiology Clinic [address] [place], [place] [phone] Claire Lopez NP 130 [facility] [address] [place] [address] documented as of this encounter Visit Diagnoses Diagnosis Encounter for preprocedure screening laboratory testing for COVID-19- Primary documented in this encounter Care Teams Smoking Pipe Maker Relationship Specialty Start Date End Date Layne Cai MD [address] [place] [address] PCP - General 04/05/20 12/16/23 documented as of this encounter
--- OUTSIDE RECORDS SUMMARY | 2024-01-09 01:51 | XMS_ITS | Encounter Summary ---
Author Organization [facility] Address [address] [place] [address] Care Team Providers Care Foil Operator Name Role Phone Layne Cai MD Primary Care Provider [phone] Reason for Visit * Reason Onset Date Comments Results 07/27/2020 Encounter Details Date Type Department Care Team (Late st Contact Info) Description 07/27/2020 Telephone [facility] Cancer Center Hematology & Oncology - [facility] [address] [place], [place] [phone] Erin Barillas MD 111 [facility], Level 2 [place] [address] Results Social History Tobacco Use [...] * Telephone Encounter - Augustina Salazar - 07/27/2020 1041 EST LABS ENTERED FROM [facility]. Augustina Salazar 07/27/2020 10:42 documented in this encounter Plan of Treatment Upcoming Encounters Date Type Department Care Team (Late st Contact Info) Description 04/09/2024 16:30 EDT Office Visit [facility] Hematology & Oncology [address] 438161 Erin Barillas MD [address] [place] [address] 2 [place] [phone] 05/18/2024 10:00 EST Office Visit [facility] Rheumatology & Immunology [address] [phone] Tod Perez NP [address] [place] [address], [facility] 5 [place] [phone] 06/03/2024 9:00 EST Ancillary Procedure [facility] Cardiology Clinic [address] [place] [phone] 06/03/2024 9:00 EST Office Visit [facility] Cardiology Clinic [address] [place] [phone] Claire Lopez NP [address] [place] [address]A [address] [place] [phone] documented as of this encounter Procedures Procedure Name Priority Date/Time Associated Diagnosis Comments COMPREHENSIVE METABOLIC PANEL (ONCOLOGY USE ONLY-INC MG) Routine 07/24/2020 COMPLETE BLOOD COUNT AND DIFFERENTIAL Routine 07/24/2020 documented in this encounter Results * (ABNORMAL) COMPREHENSIVE METABOLIC PANEL (ONCOLOGY USE ONLY-INC MG) (07/24/2020) Pathologist [facility] Calcium, External 8.9 [facility] CO2, External 27.1 [facility] AST, External 23 [facility] ALT, External 24 [facility] Bilirubin, Total, External 0.6 [facility] Creatinine, External 1.5(A) 0.70 - 1.30 [facility] Calculated Calcium, External [facility] Anion Gap, External [facility] Total Protein, External 7.3 [facility] Potassium, External 4.4 [facility] Total Alkaline Phosphatase, External 83 [facility] Albumin, External 3.9 [facility] BUN, External 25(A) 7 - 18 [facility] GFR, Calculated, External 45.50 [facility] Fasting?, External [facility] Chloride, External 105 [facility] Glucose, Serum, External 137(A) 74 - 106 [facility] Sodium, External 140 [facility] Magnesium, External [facility] Blood VENOUS BLOOD / Unknown 07/24/2020 Historical Provider MD CHEMISTRY & BLOOD GAS ORDERABLES [facility] * (ABNORMAL) COMPLETE BLOOD COUNT AND DIFFERENTIAL (07/24/2020) WBC, External 7.01 [facility] RBC, External 4.96 [facility] Hemoglobin, External 14.5 [facility] HCT, External 46.3 [facility] MCV, External 93.3 [facility] MCH, External 29.2 [facility] MCHC, External 31.3(A) 32.0 - 36.0 [facility] PLT, External 245 [facility] RDW-CV, External 19.1(A) 11.8 - 14.1 [facility] Neutrophils, External 74.4 [facility] Lymphocytes, External 13.6 [facility] Monocytes, External 7.0 [facility] Eosinophils, External 3.6 [facility] Basophils, External 0.7 [facility] ABS Neutrophils, External 5.22 [facility] ABS Lymphs, External 0.95(A) 1.2 - 3.4 [facility] ABS Monocytes, External 0.49 [facility] ABS Eosinophils, External 0.25 [facility] ABS Basophils, External 0.05 [facility] Blood VENOUS BLOOD / Unknown 07/24/2020 Historical Provider MD PACKAGES & DNA AR OBE ORDERABLES [facility] documented in this encounter Visit Diagnoses Not on filedocumented in this encounter Care Teams Foil Operator Relationship Specialty Start Date End Date Layne Cai MD [address] [place] [phone] PCP - General 04/05/20 12/16/23 documented as of this encounter
--- OUTSIDE RECORDS SUMMARY | 2024-01-09 01:51 | XMS_ITS | Encounter Summary ---
Author Organization [facility] Address [address] [place] [address] Care Team Providers Care Tile Applicator Name Role Phone Layne Cai MD Primary Care Provider Reason for Visit * (Routine) - Closed Specialty Diagnoses / Procedures Referred By Marissa carney Referred To Contact Diagnoses Pacemaker Procedures CARDIAC IMPLANT CHECK - IN CLINIC Claire Lopez NP 130 [facility] [address] [place] [address] Referral ID Status Reason Start Date Expiration Date Visits Re quested Visits Authorized [id number] Closed 05/11/2019 1 1 Encounter Details Date Type Department Care Team (Late st Contact Info) Description 07/25/2020 10:15 EST Ancillary Procedure [facility] Cardiology Clinic [address] [place] [address] Pacemaker Social History Tobacco Use [...] [facility] Hematology & Oncology [address] [phone] Erin Barillas MD [address] [place] [address] 2 [place] [phone] 05/18/2024 10:00 EST Office Visit [facility] Rheumatology & Immunology [address] 610761 Tod Perez NP [address] [place] [address] 5 [place] [phone] 06/03/2024 9:00 EST Ancillary Procedure [facility] Cardiology Clinic [address] [place] [address] 06/03/2024 9:00 EST Office Visit [facility] Cardiology Clinic [address] [place] [phone] Claire Lopez NP [address] [place] [address] [address] [place] [address] documented as of this encounter Visit Diagnoses Diagnosis Pacemaker Cardiac pacemaker in situ documented in this encounter Orders Imaging Orders Without Results Count Last Order ed Date First Ordered Date CARDIAC IMPLANT CHECK - IN CLINIC 021 documented in this encounter Care Teams Tile Applicator Relationship Specialty Start Date End Date Layne Cai MD [address] [place] [phone] PCP - General 04/05/20 12/16/23 documented as of this encounter
--- OUTSIDE RECORDS SUMMARY | 2024-01-09 01:51 | XMS_ITS | Encounter Summary ---
Author Organization [facility] Address [address] [place] [address] Care Team Providers Care Lumber Estimator Name Role Phone Layne Cai MD Primary Care Provider [phone] Claire Lopez WEB ANALYST Unavailable [phone] Tod Perez WEB ANALYST Unavailable [phone] Vianey Bocanegra APRN Primary Care Provider [phone] Reason for Visit * Reason Onset Date Comments Returning Call 08/07/2020 Labs Only 08/07/2020 Encounter Details Date Type Department Care Team (Late st Contact Info) Description 08/07/2020 Telephone [facility] Hematology & Oncology - [facility] [address] [place], [place] [phone] Reshma Hilario WEB ANALYST 111 [facility], Level 2 [place] [phone] Returning Call; Labs Only Social History Tobacco Use Types Packs/Day Years [...] encounter Miscellaneous Notes * Telephone Encounter - Coreen Astorga - 08/07/2020 1133 EST Patient returning Reshma's call regarding lab orders? Please call to discuss. documented in this encounter Plan of Treatment Upcoming Encounters Date Type Department Care Team (Late st Contact Info) Description 04/09/2024 16:30 EDT Office Visit [facility] Hematology & Oncology - [address] [phone] Erin Barillas MD [address] [place] [address], [facility] 2 [place] [phone] 05/18/2024 10:00 EST Office Visit [facility] Rheumatology & Immunology - [address] 544871 Tod Perez NP 111 [facility], [facility] 5 [place] [phone] 06/03/2024 9:00 EST Ancillary Procedure [facility] Cardiology Clinic [address] [place] [address] 06/03/2024 9:00 EST Office Visit [facility] Cardiology Clinic [address] [place] [address] [phone] Claire Lopez NP [address] [phone] documented as of this encounter Visit Diagnoses Not on filedocumented in this encounter Additional Health Concerns Infection Onset Date Last Indicated Resolved Time R/O COVID-19 12/28/2020 12/28/2020 01/02/2021 22:1 5 EDT documented as of this encounter Care Teams Lumber Estimator Relationship Specialty Start Date End Date Layne Cai MD [address] [place] [address] PCP - General 04/05/20 12/16/23 Vianey Bocanegra APRN 26 [facility] 185 [place] [address] PCP - General 12/17/23 Claire Lopez NP [address] [place] [phone] Cardiovascular Disease 11/22/20 Tod Perez NP 111 [facility] 5 [place] [phone] Rheumatology 12/28/20 documented as of this encounter
--- OUTSIDE RECORDS SUMMARY | 2024-01-09 01:51 | XMS_ITS | Encounter Summary ---
Author Organization [facility] Address [address] [place] [address] Care Team Providers Care Principal Technologist Name Role Phone Layne Cai MD Primary Care Provider [phone] Reason for Visit * Reason Comments Follow-up doing well Encounter Details Date Type Department Care Team (Late st Contact Info) Description 06/01/2020 10:30 EST Office Visit [facility] Rheumatology & Immunology - [facility] [address] [place], [place] [phone] Tod Perez, FESTUS [address] [facility], Level 5 [place] [address] History of seronegative inflammatory arthritis (Primary Dx); Encounter for long-term (current) use of medications; Inflammation around joint Social History Tobacco Use Types Packs/Day Years [...] * Patient Instructions* Tod Perez APRN - 06/01/2020 10:30 EST 1 [...] mouth once a week. 120 Tab 3 06/01/2020 08/14/2020 documented in this encounter Progress Notes * Tod Perez APRN - 06/01/2020 1030 EST [...] to improvement of symptoms - Travelled to [place] including [facility]. Able to ambulate without difficulty. - AM [...] hand swelling. Was ester 5th meng in [place] at that time. new dx around 04/2019 of polycythemia: elevated RBC and hemoglobin Had repeat labs at [facility] 05/2019 PCP was suppose to set up NPV with hematology at [facility] - they have not heard [...] present. Appropriate range of motionpresent. Ankle/Foot: In nylon stockings with mild compression [...] Calculated Unknown >60 [place] BLOOD COUNT - [facility] Latest Ref Range: 4.0 - 10.4 10e3/ul 7.2 RED BLOOD COUNT - [facility] Latest Ref Range: 4.36 - 5.78 10e3/ul [...] 135 05/10/2014 ?? C4 27 05/10/2014 ?? [facility]: 11/18/18: CBC with differential: CBC = [...] Status: Final result ?Visible to patient: Yes (EndorphMe) Next appt: 05/25/2018 at 11:40 in Rheumatology (Sudhir Rosales MD) Order: [id number] ? 1yr ago ?? Pathology Report: SURGICAL PATHOLOGY REPORT Reports generated via electronic interface contain original data; however they are lacking the format of the original report. Caution should be taken when reading/interpreting unformatted reports. Name: ? DEON VILLANUEVA ? Accession #: ? [id number] ? : ? 1945 (Age: 71) ??M ?Collect Date: ? 10/23/2016 ? Location: ? [facility] ? Receive Date: ? 10/24/2016 ? Provider: SHREYA LEA MD Copy to: MINDY SZYMANSKI SOFTWARE SUPPORT REPRESENTATIVE ? Final Pathologic Diagnosis: A. ??GASTROESOPHAGEAL JUNCITON, [...] Status: Final result ?Visible to patient: Yes (Sabrix Online) Next appt: 05/25/2018 at 11:40 in Rheumatology (Sudhir Rosales MD) Order: [id number] ? 1yr ago ?? Pathology Report: SURGICAL PATHOLOGY REPORT Reports generated via electronic interface contain original data; however they are lacking the format of the original report. Caution should be taken when reading/interpreting unformatted reports. Name: ? DEON VILLANUEVA ? Accession #: ? [id number] ? : ? 1945 (Age: 71) ??M ?Collect Date: ? 10/23/2016 ? Location: ? [facility] ? Receive Date: ? 10/24/2016 ? Provider: SHREYA LEA MD Copy to: MINDY SZYMANSKI [facility] ? Final Pathologic Diagnosis: A. [...] x 0.1 cm). Submitted intact in B1. Lisanat Moscoso 10/25/2016 7:55 AM ?XR CHEST 2 VIEWS (Order [id number]) Status: Final result (Exam End: 05/19/2020 16:15) Results XR CHEST 2 VIEWS ( (Order [id number]) XR CHEST 2 VIEWS Order: [id number] Status: Final result ?Visible to patient: Yes (MyChart) Next appt: None Details Reading Physician Reading Date Result Priority Dustin Ibrahim MD [phone] 05/19/2020 Narrative & Impression EXAM: RADIOLOGY/CHEST PA LAT EX. D/ (1433) CLINICAL INFORMATION: Z95.0 PACEMAKER PLACEMENT PRIOR TO [...] increased MTX to 10 tabs, but would like to switch him to MTX 25mg Sc pen. I do not think he will be able to do needles due to his hands. PA placed for MTX 25mg sc pen- brand does not matter 2 up to date on labs Labs up to date from cardiology but missing LFTs He is suppose to get his pacer luis armando replaced Jun and will need LFT labs [...] [facility] Hematology & Oncology - [address] [phone] Erin Barillas MD [address] [place] [address] 2 [place] [phone] 05/18/2024 10:00 EST Office Visit [facility] Rheumatology & Immunology [address] [phone] Tod Perez NP [address] [place] [address] 5 [place] [phone] 06/03/2024 9:00 EST Ancillary Procedure [facility] Clinic [address] [place] [phone] 06/03/2024 9:00 EST Office Visit [facility] [address] [place] [address] [phone] Claire Lopez NP [address] [place] [address] [place] [phone] documented as of this encounter Visit Diagnoses [...] Tabs by mouth once a week. Reorder 05/29/2020 06/01/2020 documented as of this encounter Care Teams Principal Technologist Relationship Specialty Start Date End Date Layne Cai MD [address] [place] [phone] PCP - General 04/05/20 12/16/23 documented as of this encounter
--- OUTSIDE RECORDS SUMMARY | 2024-01-09 01:51 | XMS_ITS | Encounter Summary ---
Author Organization [facility] Address [address] [place] [address] Care Team Providers Care Database Administration Manager Name Role Phone Layne Cai MD Primary Care Provider [phone] Reason for Visit * Reason Comments Pacemaker/Device Check Medtronic Encounter Details Date Type Department Care Team (Late st Contact Info) Description 07/25/2020 10:15 EST Office Visit [facility] Cardiology Clinic [address] [place] [address] Claire Lopez NP 130 [facility] [address] [place] [address] Pacemaker (Primary Dx); Sick sinus [...] Reading Time Taken Comments Blood Pressure 122/70 07/25/202046 EST Pulse 61 07/25/2020 0946 EST Temperature - - Respiratory Rate - - Oxygen Saturation 97% 07/25/2020945 EST Inhaled Oxygen Concentration - - Weight 105 kg (231 lb 6.4 oz) 07/25/2020945 ES T Height 181.6 cm (5' 11.5) 07/25/2020 0946 [...] Progress Notes * Claire Lopez, BATSHEVA - 07/25/2020 1015 EST [...] his pacer insertion site has healed well. Sincehaving his device change out he has noticed improved sleep and his CPAP machine is reading better O2 sats throughout the night. 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 Claire Lopez NP [facility] [place] documented in this encounter Plan of Treatment Upcoming Encounters Date Type Department Care Team (Late st Contact Info) Description 04/09/2024 16:30 EDT Office Visit [facility] Hematology & Oncology - [address] [address] Erin Barillas MD 111 [facility], [facility], Level [address] [place] [phone] 05/18/2024 10:00 EST Office Visit [facility] Rheumatology & Immunology - [address] [phone] Tod Perez NP 111 [facility], [facility], Level [address] [place] [phone] 06/03/2024 9:00 EST Ancillary Procedure [facility] [address] [place], [place] [address] 06/03/2024 9:00 EST Office Visit [facility] [address] [place], [place] [address] Claire Lopez NP 130 [facility] [address] [place] [phone] documented as of this encounter Visit Diagnoses Diagnosis Pacemaker- Primary Cardiac pacemaker in situ Sick sinus syndrome (HCC-CMS) Sinoatrial node dysfunction Essential hypertension Unspecified essential hypertension Hypercholesteremia Pure hypercholesterolemia documented in this encounter Care Teams Database Administration Manager Relationship Specialty Start Date End Date Layne Cai MD [address] [place] [address] PCP - General 04/05/20 12/16/23 documented as of this encounter
--- OUTSIDE RECORDS SUMMARY | 2024-01-09 01:51 | XMS_ITS | Encounter Summary ---
Author Organization [facility] Address [address] [place] [address] Care Team Providers Care Transition Mgr Name Role Phone Layne Cai MD Primary Care Provider [phone] Reason for Visit * Reason Comments Other pacer battery deplet ion Encounter Details Date Type Department Care Team (Late st Contact Info) Description 06/27/2020 External Contact [facility] [address] [place] [address] Andres Chawla MD 130 [facility] [address] [place] [address] Sick sinus syndrome (HCC-CMS) (Primary Dx); Pacemaker battery depletion; Pacemaker Social History Tobacco Use Types Packs/Day [...] Notes * Andres Chawla MD - 06/27/2020 1258 EST [facility] Cardiology PreOP H&P Subjective: Chief Complaint(s): Other [...] specific complaints or concerns to offer. His pediatric acute care unit nurse and tag writer have gotten his arthritis and polycythemia under control and he is back to being busy outside [employer] and [employer]. ?? Systems review A 10 point review [...] Gets together: Not on file ? Attends druze service: Not on file ? Active member [...] on file Social History Narrative ?? 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 [...] check to be performed by PCP at [facility]. ?? 2. Sick sinus syndrome (HCC-CMS) S/p single chamber pacemaker. ?? Andres Chawla MD documented in this encounter Plan of Treatment Upcoming Encounters Date Type Department Care Team (Late st Contact Info) Description 04/09/2024 16:30 EDT Office Visit [facility] Hematology & Oncology - [address] [phone] Erin Barillas MD [address] [place] [address], [facility] 2 [place] [phone] 05/18/2024 10:00 EST Office Visit [facility] Rheumatology & Immunology - [address] [phone] Tod Perez NP [address] [place] [address], [facility] 5 [place] [phone] 06/03/2024 9:00 EST Ancillary Procedure [facility] Cardiology Clinic [address] [facility] [place] [address] 06/03/2024 9:00 EST Office Visit [facility] Cardiology Clinic [address] [facility] [place] [phone] Claire Lopez NP 130 [facility] [address] [place] [phone] documented as of this encounter Visit Diagnoses Diagnosis Sick sinus syndrome (HCC-CMS)- Primary Sinoatrial node dysfunction Pacemaker battery depletion Fitting and adjustment of cardiac pacemaker Pacemaker Cardiac pacemaker in situ documented in this encounter Care Teams Transition Mgr Relationship Specialty Start Date End Date Layne Cai MD [address] [place] [address] PCP - General 04/05/20 12/16/23 documented as of this encounter
--- OUTSIDE RECORDS SUMMARY | 2024-01-09 01:52 | XMS_ITS | Encounter Summary ---
Author Organization [facility] Address [address] [place] [address] Care Team Providers Care Building Code Administrator Name Role Phone Dereck Schultz MD Primary Care Provider U morgan Encounter Details Date Type Department Care Team (Latest Contact Info) Description 12/06/2019 Travel Social History Tobacco Use Types Packs/Day Years Used Date Smoking Tobacco: Former Cigarettes 3 20 0 09/15/1960 - 09/15/1980 Cigars Smokeless Tobacco: Never Comments:Quit >30 years ago Alcohol Use Standard Drinks/Week Comments Yes 0 (1 standard drink = 0.6 oz pur e alcohol) Occasional beer Sex and Gender Information Value Date Recorded Sex Assigned at Not on file Gender Identity Male 05/11/2019 13:17 EST Sexual Orientation Not on file COVID-19 Exposure Response Date Recorded In the last month, have you been in contact with someone who was confirmed or suspected to have Coronavirus / COVID-19? No / Unsure 12/06/2019 11:42 EDT documented as of this encounter Functional [...] Info) Description 04/09/2024 16:30 EDT Office Visit [facility] [place] Hematology & Oncology - [address] [phone] Erin Barillas MD [address] [place] [address] 2 [place] [phone] 05/18/2024 10:00 EST Office Visit [facility] Rheumatology & Immunology - [address] [phone] Tod Perez NP [address] [place] [address] 5 [place] [phone] 06/03/2024 9:00 EST Ancillary Procedure [facility] Cardiology Clinic [address] [place] [phone] 06/03/2024 9:00 EST Office Visit [facility] Cardiology Clinic [address] [place] [phone] Claire Lopez NP [address] [place] [address] [phone] documented as of this encounter Visit Diagnoses Not on filedocumented in this encounter Care Teams Building Code Administrator Relationship Specialty Start Date End Date Dereck Schultz MD PCP - General 04/07/19 04/04/20 documented as of this encounter
--- OUTSIDE RECORDS SUMMARY | 2024-01-09 01:52 | XMS_ITS | Encounter Summary ---
Author Organization [facility] Address [address] [place] [address] Care Team Providers Care Necktie Maker Name Role Phone Dereck Schultz MD Primary Care Provider U navailable Reason for Visit * Reason Onset Date Comments Critical Value 01/31/2020 Encounter Details Date Type Department Care Team (Late st Contact Info) Description 01/31/2020 Telephone [facility] Hematology & Oncology - [facility] [address] [place], [place] [phone] Erin Barillas MD 111 [facility], [facility] 2 [place] [address] Critical Value Social History Tobacco Use Types Packs/Day Years [...] Dispensed Refills Start Date End Da te levOFLOXacin (LEVAQUIN) 500 mg tablet Take 1 Tab by mouth daily for 14 days. 14 Tab 01/31/2020 02/14/2020 fluconazole (DIFLUCAN) 200 mg tabletIndications:Neutrope jessi, unspecified type (HCC-CMS),Polycythemia vera (HCC-CMS) Take 1 Tab by mouth daily for 14 days. 14 Tab 01/31/2020 02/14/2020 acyclovir (ZOVIRAX) 400 mg tabletIndications:Neutrope jessi, unspecified type (HCC-CMS),Polycythemia vera (HCC-CMS) Take 1 Tab by mouth 2 times daily for 14 days. 28 Tab 01/31/2020 02/14/2020 documented in this encounter Miscellaneous Notes * Telephone Encounter - Chikis Ji RN - 01/31/2020 [address] Barillas, Praneeth should get repeat labs this 02/03/2020. Outgoing call made to Praneeth. He answered and I reviewed the information I discussed earlier with hiswife Augustina - Praneeth said he already spoke with Augustina and did not have any questions. I reinforced neutropenic precautions and when he should call the clinic. I advised Praneeth that he needs to get repeat labs this 02/02. He verbalized understanding of the conversation and asked me to call his wifeabout the labs. Outgoing call made to Augustina. Augustina verbalized understanding that Praneeth needs to get labs done this . * Telephone Encounter - Chikis Ji RN [...] is up the road at their other house working on a trailer. I reviewed Praneeth's lab results and that Dr. Barillas is requesting Praneeth to hold his Hydrea and start prophylactic antimicrobials. I reviewed neutropenic precautions (to include notworking in the yard or on equipment) and symptoms for which he should call the clinic immediately (including but not limited to temp or greater, chills, feeling run- down, vomiting, diarrhea, any skinissues like a poorly healing cut). Augustina reports Praneeth cut his forearm this weekend - she said it is healing fine but I will take a look at it again today. Augustina took notes during the conversation an d verbalized understanding. At the end of the conversation Praneeth started walking into their house and Augustina said she will review the information with Praneeth. I encouraged them to please call the clinic if they have any questions or concerns. Entered prophylactic antimicrobial prescriptions to Praneeth's local pharmacy. Of note, Augustina reports Praneeth does not have any antibiotic allergies. * Telephone Encounter - Cihkis Ji RN - 01/31/2020 1014 EDT Clinical Staff notified with Critical Results Provider Notified: Provider Name: Dr. Barillas Date: 01/31/2020 Time: 1015 AM Treatment Plan: Patient Notified: Date: Time: Did not notify Praneeth yet about his results. Routed encounter to Dr. Barillas for review and recommendation. Called [facility] lab and requested them to fax the rest of Praneeth's results to [phone]. * Telephone Encounter - Augustina Salazar - 01/31/2020 1003 [...] Visit [facility] Hematology & Oncology [address] [phone] Erin Barillas MD [address] [place] [address] 2 [place] [phone] 05/18/2024 10:00 EST Office Visit [facility] Rheumatology & Immunology [address] [phone] Tod Perez NP [address] [place] [address] 5 [place] [phone] 06/03/2024 9:00 EST Ancillary Procedure [facility] Cardiology Clinic [address] [place] [phone] 06/03/2024 9:00 EST Office Visit [facility] Cardiology Clinic [address] [place] [phone] Claire Lopez NP [address] [place] [address]-[address] [place] [phone] documented as of this encounter Visit Diagnoses Diagnosis Neutropenia, unspecified type (HCC-CMS)- Primary Polycythemia vera (HCC-CMS) documented in this encounter Care Teams Necktie Maker Relationship Specialty Start Date End Date Dereck Schultz MD PCP - General 04/07/19 04/04/20 documented as of this encounter
--- OUTSIDE RECORDS SUMMARY | 2024-01-09 01:52 | XMS_ITS | Encounter Summary ---
Author Organization [facility] Address [address] [place] [address] Care Team Providers Care Dowel Inspector Name Role Phone Dereck Schultz MD Primary Care Provider U navailable Reason for Visit * Reason Onset Date Comments Follow-up 01/24/2020 Encounter Details Date Type Department Care Team (Late st Contact Info) Description 01/24/2020 Telephone [facility] Hematology & Oncology - [place] [address] [place] [address] Chikis Ji RN Follow-up Social History Tobacco [...] have Coronavirus / COVID-19? No / Unsure 12/28/2019 12:44 EDT documented as of this encounter Functional [...] to get repeat labs next week at [facility]. Standing lab orders are aflready entered. * Telephone Encounter - Chikis Ji RN [...] [facility] Hematology & Oncology - [address] [address] Erin Barillas MD [address] [place] [address] 2 [place] [phone] 05/18/2024 10:00 EST Office Visit [facility] Rheumatology & Immunology - [address] [address] Tod Perez SODDER 111 [facility], Level [address] [place] [phone] 06/03/2024 9:00 EST Ancillary Procedure [facility] Cardiology Clinic [address] [place] [phone] 06/03/2024 9:00 EST Office Visit [facility]iology Clinic [address] [place] [address], [place] [phone] Claire Lopez NP 130 [facility] [address] [place] [phone] documented as of this encounter Visit Diagnoses Not on filedocumented in this encounter Care Teams Dowel Inspector Relationship Specialty Start Date End Date Dereck Schultz MD PCP - General 04/07/19 04/04/20 documented as of this encounter
--- OUTSIDE RECORDS SUMMARY | 2024-01-09 01:52 | XMS_ITS | Encounter Summary ---
Author Organization [facility] Address [address] [place] [address] Care Team Providers Care Cpr Instructor Name Role Phone Dereck Schultz MD Primary Care Provider U navailable Reason for Visit * Reason Onset Date Comments Results 02/15/2020 Encounter Details Date Type Department Care Team (Late st Contact Info) Description 02/15/2020 Telephone [facility] Cancer Center Hematology & Oncology - [facility] [address] [place], [place] [phone] Erin Barillas MD 111 [facility], [facility] 2 [place] [address] Results Social History Tobacco Use [...] Yes 09/23/2019 Cognitive Status Response Date of Assess ent Because of a physical, menta l, or emotional condition, does this person have serious difficulty concentrating, remembering, or making decisions? No 11/24/2017 documented as of this encounter Miscellaneous Notes * Telephone Encounter - Augustina Salazar - 02/15/2020 1219 EDT LABS ENTERED FROM [facility]. Augustina Salazar 02/15/2020 12:19 documented in this encounter Plan of Treatment Upcoming Encounters Date Type Department Care Team (Late st Contact Info) Description 04/09/2024 16:30 EDT Office Visit [facility] Hematology & Oncology [address] [address] Erin Barillas MD [address] [place] [address] 2 [place] [phone] 05/18/2024 10:00 EST Office Visit [facility] Rheumatology & Immunology - [address] 849451 Tod Perez NP [address] [place] [address], [facility] 5 [place] [phone] 06/03/2024 9:[address] [facility] [address] [place] [phone] 06/03/2024 9:[address] [facility] [address] [place] [address] Claire Lopez NP [address] [facility] [address] [place] [phone] documented as of this encounter Procedures Procedure Name Priority Date/Time Associated Diagnosis Comments COMPREHENSIVE METABOLIC PANEL (ONCOLOGY USE ONLY-INC MG) Routine 01/31/2020 COMPLETE BLOOD COUNT AND DIFFERENTIAL Routine 01/31/2020 documented in this encounter Results * (ABNORMAL) COMPREHENSIVE METABOLIC PANEL (ONCOLOGY USE ONLY-INC MG) (01/31/2020) Calcium, External 8.4(A) 8.5 - 10.1 [facility] CO2, External 23.9 [facility] AST, External 21 [facility] ALT, External 23 [facility] Bilirubin, Total, External 0.3 [facility] Creatinine, External 1.07 [facility] Calculated Calcium, External [facility] Anion Gap, External [facility] Total Protein, External 6.0(A) 6.4 - 8.2 [facility] Potassium, External 4.0 [facility] Total Alkaline Phosphatase, External 63 [facility] Albumin, External 3.5 [facility] BUN, External 20(A) 7 - 18 [facility] GFR, Calculated, External 60 [facility] Fasting?, External [facility] Chloride, External 107 [facility] Glucose, Serum, External 125(A) 74 - 106 [facility] Sodium, External 141 [facility] Magnesium, External [facility] Blood VENOUS BLOOD / Unknown 01/31/2020 Historical Provider CHEMISTRY & BLOOD GAS ORDERABLES [facility] * (ABNORMAL) COMPLETE BLOOD COUNT AND DIFFERENTIAL (01/31/2020) WBC, External 1.24(A) 4.4 - 10.8 [facility] RBC, External 3.99(A) 4.36 - 5.78 [facility] Hemoglobin, External 12.4(A) 13.5 - 17.5 [facility] HCT, External 37.7(A) 40.0 - 50.0 [facility] MCV, External 94.5 [facility] MCH, External 31.1 [facility] MCHC, External 32.9 [facility] PLT, External 123(A) 130 - 400 [facility] RDW-CV, External 26.2(A) 11.8 - 14.1 [facility] Neutrophils, External 15.4 [facility] Lymphocytes, External 54.0 [facility] Monocytes, External 25.8 [facility] Eosinophils, External 3.2 [facility] Basophils, External 0.8 [facility] ABS Neutrophils, External 0.19(A) 1.2 - 6.7 [facility] ABS Lymphs, External 0.67(A) 1.2 - 3.4 [facility] ABS Monocytes, External 0.32 [facility] ABS Eosinophils, External 0.04 [facility] ABS Basophils, External 0.01 [facility] Blood VENOUS BLOOD / Unknown 01/31/2020 Historical Provider PACKAGES & DNA [place] OBE ORDERABLES [facility] documented in this encounter Visit Diagnoses Not on filedocumented in this encounter Care Teams Cpr Instructor Relationship Specialty Start Date End Date Dereck Schultz MD PCP - General 04/07/19 04/04/20 documented as of this encounter
--- OUTSIDE RECORDS SUMMARY | 2024-01-09 01:52 | XMS_ITS | Encounter Summary ---
Author Organization [facility] Address [address] [place] [address] Care Team Providers Care Ornamenter Name Role Phone Dereck Schultz MD Primary Care Provider U navailable Reason for Visit * Reason Onset Date Comments Results 01/24/2020 Encounter Details Date Type Department Care Team (Late st Contact Info) Description 01/24/2020 Telephone [facility] Cancer Center Hematology & Oncology - [facility] [address] [place], [place] [phone] Erin Barillas MD 111 [facility], [facility] 2 [place] [address] Results Social History Tobacco Use [...] * Telephone Encounter - Augustina Salazar - 01/24/2020 1324 EDT LABS ENTERED FROM [facility]. documented in this encounter Plan of Treatment Upcoming Encounters Date Type Department Care Team (Late st Contact Info) Description 04/09/2024 16:30 EDT Office Visit [facility] Hematology & Oncology - [address] [phone] Erin Barillas MD [address] [place] [address] 2 [place] [phone] 05/18/2024 10:00 EST Office Visit [facility] Rheumatology & Immunology - [address] [phone] Tod Perez NP [address] [place] [address], [facility] 5 [place] [phone] 06/03/2024 9:00 EST Ancillary Procedure [facility] Cardiology Clinic [address] [place] [address] 06/03/2024 9:00 EST Office Visit [facility] Cardiology Clinic [address] [place] [address] [phone] Claire Lopez NP [address] [place] [address] [address] [place] [phone] documented as of this encounter Procedures Procedure Name Priority Date/Time Associated Diagnosis Comments COMPREHENSIVE METABOLIC PANEL (ONCOLOGY USE ONLY-INC MG) Routine 01/24/2020 COMPLETE BLOOD COUNT AND DIFFERENTIAL Routine 01/24/2020 documented in this encounter Results * (ABNORMAL) COMPREHENSIVE METABOLIC PANEL (ONCOLOGY USE ONLY-INC MG) (01/24/2020) Pathologist [facility] Calcium, External 8.9 [facility] CO2, External 25.6 [facility] AST, External 18 [facility] ALT, External 21 [facility] Bilirubin, Total, External 0.6 [facility] Creatinine, External 1.10 [facility] Calculated Calcium, External [facility] Anion Gap, External [facility] Total Protein, External 6.5 [facility] Potassium, External 4.9 [facility] Total Alkaline Phosphatase, External 72 [facility] Albumin, External 3.7 [facility] BUN, External 20(A) 7 - 18 [facility] GFR, Calculated, External 60 [facility] Fasting?, External [facility] Chloride, External 105 [facility] Glucose, Serum, External 128(A) 74 - 106 [facility] Sodium, External 141 [facility] Magnesium, External [facility] Blood VENOUS BLOOD / Unknown 01/24/2020 Historical Provider MD CHEMISTRY & BLOOD GAS ORDERABLES [facility] * (ABNORMAL) COMPLETE BLOOD COUNT AND DIFFERENTIAL (01/24/2020) WBC, External 2.57(A) 4.4 - 10.8 [facility] RBC, External 4.36 [facility] Hemoglobin, External 13.3(A) 13.5 - 17.5 [facility] HCT, External 41.2 [facility] MCV, External 94.5 [facility] MCH, External 30.5 [facility] MCHC, External 32.3 [facility] PLT, External [facility] RDW-CV, External 26.2(A) 11.8 - 14.1 [facility] Neutrophils, External 53.2 [facility] Lymphocytes, External 31.5 [facility] Monocytes, External 12.1 [facility] Eosinophils, External 1.6 [facility] Basophils, External 1.2 [facility] ABS Neutrophils, External 1.37 [facility] ABS Lymphs, External 0.81(A) 1.2 - 3.4 [facility] ABS Monocytes, External 0.31 [facility] ABS Eosinophils, External 0.04 [facility] ABS Basophils, External 0.03 [facility] Blood VENOUS BLOOD / Unknown 01/24/2020 Historical Provider PACKAGES & DNA [place] OBE ORDERABLES [facility] documented in this encounter Visit Diagnoses Not on filedocumented in this encounter Care Teams Ornamenter Relationship Specialty Start Date End Date Dereck Schultz MD PCP - General 04/07/19 04/04/20 documented as of this encounter
--- OUTSIDE RECORDS SUMMARY | 2024-01-09 01:52 | XMS_ITS | Encounter Summary ---
Author Organization [facility] Address [address] [place] [address] Care Team Providers Care Importer Or Exporter Name Role Phone Dereck Schultz MD Primary Care Provider U navailable Reason for Visit * Reason Onset Date Comments Critical Value 02/03/2020 Encounter Details Date Type Department Care Team (Late st Contact Info) Description 02/03/2020 Telephone [facility] Cancer Center Hematology & Oncology - [facility] [address] [place] [address] Erin Barillas MD 111 [facility], [facility] 2 [place] [address] Critical Value Social History Tobacco [...] encounter Miscellaneous Notes * Telephone Encounter - Karin Cardoza - 02/03/2020 1241 EDT Spoke to Praneeth. Scheduled him for a video appt on 02/10/[address] Barillas at 10am. Emailed Zoom link. * Telephone Encounter - Chikis Ji RN [...] 02/06. I also reinforced that Praneeth should continue neutropenic precautions and he should call the clinic [...] Augustina that I will notify Dr. Barillas. * Telephone Encounter - Chikis Ji RN - 02/03/2020 0857 EDT Clinical Staff notified with Critical Results Provider Notified: Provider Name: Dr. Barillas Date: 02/03/2020 Time: 0900 AM Treatment Plan: Patient Notified: Date: Time: Praneeth not yet notified. Routed encounter to Dr. Barillas for review. Also called [facility] and requested copy of Praneeth's lab results from today. * Telephone Encounter - Marie Augustina - 02/03/2020 0814 EDT Non Clinical Staff [...] [facility] Hematology & Oncology - [address] [phone] Erin Barillas MD [address] [place] [address] 2 [place] [phone] 05/18/2024 10:00 EST Office Visit [facility] Rheumatology & Immunology - [address] [phone] Tod Perez NP [address] [place] [address], [facility] 5 [place] [phone] 06/03/2024 9:00 EST Ancillary Procedure [facility] Cardiology Clinic [address] [place] [address] [phone] 06/03/2024 9:00 EST Office Visit [facility] Cardiology Clinic [address] [place] [address] [phone] Claire Lopez NP [address] [place] [address] [address] [place] [address] documented as of this encounter Visit Diagnoses Not on filedocumented in this encounter Care Teams Importer Or Exporter Relationship Specialty Start Date End Date Dereck Schultz MD PCP - General 04/07/19 04/04/20 documented as of this encounter
--- OUTSIDE RECORDS SUMMARY | 2024-01-09 01:52 | XMS_ITS | Encounter Summary ---
Author Organization [facility] Address [address] [place] [address] Care Team Providers Care Manager Manufacturing Name Role Phone Dereck Schultz MD Primary Care Provider U navailable Reason for Visit * Reason Onset Date Comments Labs Only 02/10/2020 Encounter Details Date Type Department Care Team (Late st Contact Info) Description 02/10/2020 Telephone [facility] Cancer Center Hematology & Oncology - [place] [address] [place], [place] [phone] Chikis Ji, TRAM Labs Only Social History Tobacco Use Types [...] Encounter - Chikis Ji RN - 02/10/2020 5428 EDT Per discussion with Dr. Barillas, Praneeth will have repeat labs in 1 week, and he is holding Hydrea for now. Dr. Barillas ordered the BCR-ABL lab and is requesting this to be done when Praneeth gets his repeat labs done next week. I called [facility] and spoke with Steph. I advised Steph of the above information - she made note of this request in Praneeth's record and requested me to fax the BCR-ABL order [phone]. Faxed BCR-ABL lab order as requested. documented in this encounter Plan of Treatment Upcoming Encounters Date Type Department Care Team (Late st Contact Info) Description 04/09/2024 16:[address] [facility] Hematology & Oncology - [address] [phone] Erin Barillas MD 111 [facility] 2 [place] [phone] 05/18/2024 10:00 EST Office Visit [facility] Rheumatology & Immunology - [address] [phone] Tod Perez NP 111 [facility], [facility] 5 [place] [phone] 06/03/2024 9:00 EST Ancillary Procedure [facility] Cardiology Clinic [address] [place] [phone] 06/03/2024 9:00 EST Office Visit [facility] Cardiology Clinic [address] [place] [address] Claire Lopez, FESTUS [address] [facility] [address] [place] [phone] documented as of this encounter Visit Diagnoses Not on filedocumented in this encounter Care Teams Manager Manufacturing Relationship Specialty Start Date End Date Dereck Schultz MD PCP - General 04/07/19 04/04/20 documented as of this encounter
--- OUTSIDE RECORDS SUMMARY | 2024-01-09 01:52 | XMS_ITS | Encounter Summary ---
Author Organization [facility] Address [address] [place] [address] Care Team Providers Care Delivery Motorcycle Driver Name Role Phone Dereck Schultz MD Primary Care Provider U navailable Reason for Visit * Reason Comments Telemedicine Video Visit Encounter Details Date Type Department Care Team (Late st Contact Info) Description 02/10/2020 10:00 EDT Telemedicine [facility] Cancer Center Hematology & Oncology - [facility] [address] [place], [place] [phone] Erin Barillas MD 111 [facility], Level 2 [place] [address] Polycythemia vera (HCC-CMS) (Primary Dx) [...] Progress Notes * Erin Barillas MD - 02/10/2020 1000 EDT [...] loss of consciousness. No vision changes reported. Deniesany dyspnea at rest or with exertion. No [...] States that he spent the winter in [place] and noted that his fingers would turn red and get cold very easily. Denies any epistaxis, gum bleeding or easy bruising. Patient denies any history of blood clots. 12 point ROS performed with pertinent positives and negatives as documented in HPI and ROS summary below. Social history: Retired. Worked for the [employer]. Former smoker with 20 pack year smoking [...] on phone: None Gets together: None Attends voodoo service: None Active member of club or organization: None Attends meetings of clubs or organizations: None Relationship status: None ??? Intimate partner violence Fear of current or ex partner: None Emotionally abused: None Physically abused: None Forced sexual activity: None Other Topics Concern ??? 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 Will reinitiate Hydrea at 500mg daily at that time. Hct [...] [facility] Hematology & Oncology [address] 300161 Erin Barillas MD [address] [place] [address] 2 [place] [phone] 05/18/2024 10:00 EST Office Visit [facility] Rheumatology & Immunology [address] 293951 Tod Perez NP [address] [place] [address] 5 [place] [phone] 06/03/2024 9:00 EST Ancillary Procedure [facility] Cardiology Clinic [address] [place] [address] [phone] 06/03/2024 9:00 EST Office Visit [facility] Cardiology Clinic [address] [place] [address] [phone] Claire Lopez NP [address] [place] [address]-[address] [place] [address] documented as of this encounter Visit Diagnoses Diagnosis Polycythemia vera (HCC-CMS)- Primary documented in this encounter Care Teams Delivery Motorcycle Driver Relationship Specialty Start Date End Date Dereck Schultz MD PCP - General 04/07/19 04/04/20 documented as of this encounter
--- OUTSIDE RECORDS SUMMARY | 2024-01-09 01:52 | XMS_ITS | Encounter Summary ---
Author Organization [facility] Address [address] [place] [address] Care Team Providers Care Popcorn Machine Operator Name Role Phone Dereck Schultz MD Primary Care Provider U navailable Reason for Visit * Reason Onset Date Comments Labs Only 01/03/2020 Encounter Details Date Type Department Care Team (Late st Contact Info) Description 01/03/2020 Telephone [facility] Cancer Center Hematology & Oncology - Main [place] [address] [place] [address] Chikis Ji, TRAM Labs Only Social History [...] Encounter - Chikis Ji RN - 01/03/2020 1156 EDT Entered external lab results from , labs were collected today01/03/2020. Praneeth's Hct is 47.8. Praneeth is scheduled for therapeutic phlebotomy on 01/04/2020 at 1145 am on [facility]p 4. Outgoing call made to Praneeth, his Augustina answered the phone. I reviewed lab results and she saidPraneeth is agreeable with TP on 01/03. Augustina is wondering if future therapeutic phlebotomies can be arranged at [facility]. I advised Augustina that Dr. Barillas does not have privileges there but I could see if Praneeth's PCP could order this at [facility]. Augustina would like me to look into this. Per Augustina, Praneeth's current PCP is Layne Cai at the [facility] (the current PCP Dereck Schultz listed for Praneeth has since retired). I asked our clinical outcomes manager to please update Praneeth's PCP information in Epic. Scanned lab results to Dr. Barillas for review. documented in this encounter Plan of Treatment Upcoming Encounters Date Type Department Care Team (Late st Contact Info) Description 04/09/2024 16:30 EDT Office Visit [facility] Hematology & Oncology - [address] [phone] Erin Barillas MD [address] [place] [address], Level 2 [place] [phone] 05/18/2024 10:00 EST Office Visit [facility] Rheumatology & Immunology - [address] [phone] Tod Perez NP 111 [facility], Level 5 [place] [address] 06/03/2024 9:00 EST Ancillary Procedure [facility] Cardiology Clinic [address] [place] [address] 06/03/2024 9:00 EST Office Visit [facility] Cardiology Clinic 130 [facility] [place] [address] Claier Lopez NP 130 [facility] [address]OB[address]A [address] [place] [phone] documented as of this encounter Procedures Procedure Name Priority Date/Time Associated Diagnosis Comments COMPLETE BLOOD COUNT AND DIFFERENTIAL Routine 01/03/2020 COMPREHENSIVE METABOLIC PANEL (CMP) Routine 01/03/2020 documented in this encounter Results * COMPREHENSIVE METABOLIC PANEL (CMP) (01/03/2020) GFR, Calculated, External >=60 [facility] Glucose, Serum, External 108 [facility] Albumin, External 4.0 [facility] Total Alkaline Phosphatase, External 71 [facility] ALT, External 29 [facility] AST, External 29 [facility] BUN, External 20 [facility] Calculated Calcium, External [facility] Calcium, External 8.8 [facility] Chloride, External 103 [facility] CO2, External 24.6 [facility] Creatinine, External 1.08 [facility] Fasting?, External [facility] Potassium, External 4.3 [facility] Sodium, External 138 [facility] Total Protein, External 6.7 [facility] Bilirubin, Total, External 0.8 [facility] Blood VENOUS BLOOD / Unknown 01/03/2020 Erin Barillas MD CHEMISTRY & BLOOD GA S ORDERABLES [facility] * COMPLETE BLOOD COUNT AND DIFFERENTIAL (01/03/2020) WBC, External 4.90 [facility] [...] ABS Neutrophils, External 3.67 [facility] ABS Lymphs, External 0.84 [facility] ABS Monocytes, External 0.32 [facility] ABS Eosinophils, External 0.05 [facility] ABS Basophils, External 0.01 [facility] Blood VENOUS BLOOD / Unknown 01/03/2020 Erin Barillas MD PACKAGES & DNA PROBE ORDERABLES [facility] documented in this encounter Visit Diagnoses Not on filedocumented in this encounter Care Teams Popcorn Machine Operator Relationship Specialty Start Date End Date Dereck Schultz MD PCP - General 04/07/19 04/04/20 documented as of this encounter
--- OUTSIDE RECORDS SUMMARY | 2024-01-09 01:52 | XMS_ITS | Encounter Summary ---
Author Organization [facility] Address [address] [place] [address] Care Team Providers Care Pattern Cleaner Name Role Phone Dereck Schultz MD Primary Care Provider U navailable Reason for Visit * Reason Onset Date Comments Follow-up 01/10/2020 Encounter Details Date Type Department Care Team (Late st Contact Info) Description 01/10/2020 Telephone [facility] Hematology & Oncology - Main [place] [address] [place] [address] Chikis Ji RN Follow-up Social [...] are standing lab orders for CBCD/CMP at [facility] (orders valid through December 2020). * Telephone Encounter - Chikis Ji RN - 01/10/2020 1505 EDT Reviewed Praneeth's lab results from today. [...] Description 04/09/2024 16:30 EDT Office Visit [facility] Hematology & Oncology - [address] [address] Erin Barillas MD [address] [place] [address], [facility], Level 2 [place] [address] 05/18/2024 10:00 EST Office Visit [facility] Rheumatology & Immunology - [address] 119551 Tod Perez NP 111 [facility], Level 5 [place] [phone] 06/03/2024 9:00 EST Ancillary Procedure [facility] Cardiology Clinic [address] [place] [phone] 06/03/2024 9:00 EST Office Visit [facility] Cardiology Clinic [address] [place] [address] [phone] Claire Lopez NP [address] [place] [address] [address] [place] [phone] documented as of this encounter Visit Diagnoses Not on filedocumented in this encounter Care Teams Pattern Cleaner Relationship Specialty Start Date End Date Dereck Schultz MD PCP - General 04/07/19 04/04/20 documented as of this encounter
--- OUTSIDE RECORDS SUMMARY | 2024-01-09 01:52 | XMS_ITS | Encounter Summary ---
Author Organization [facility] Address [address] [place] [address] Care Team Providers Care Mainframe Consultant Name Role Phone Dereck Schultz MD Primary Care Provider U navailable Reason for Visit * Reason Onset Date Comments Labs Only 12/20/2019 Encounter Details Date Type Department Care Team (Late st Contact Info) Description 12/20/2019 Telephone [facility] Hematology & Oncology - Main [place] [address] [place] [address] Chikis Ji, TRAM Labs Only [...] Miscellaneous Notes * Telephone Encounter - Chikis Ji, TRAM - 12/20/2019 2216 EDT Received copy of Praneeth's labs from [facility] that were collected today. Hct is 50.3. Per parameters established by Dr. Barillas, Praneeth needs weekly TP until Hct <45. Praneeth is already scheduled for TP on Shep 4 tomorrow 12/21/2019. I messaged Praneeth via [employer] requesting him to please get his TP done as previously arranged. I emailed a copy of Praneeth's lab results to Dr. Barillas, and requested our medical office technologist to enter the results. documented in this encounter Plan of Treatment Upcoming Encounters Date Type Department Care Team (Late st Contact Info) Description 04/09/2024 16:30 EDT Office Visit [facility] Hematology & Oncology - [address] [phone] Erin Barillas MD [address] [place] [address], [facility] 2 [place] [phone] 05/18/2024 10:00 EST Office Visit [facility] Rheumatology & Immunology - [address] [phone] Tod Perez NP 111 [facility], [facility] 5 [place] [phone] 06/03/2024 9:00 EST Ancillary Procedure [facility] [address] [place] [address] 06/03/2024 9:00 EST Office Visit [facility] [address] [place] [address] Claire Lopez NP 130 [facility] [address] [place] [phone] documented as of this encounter Visit Diagnoses Not on filedocumented in this encounter Care Teams Mainframe Consultant Relationship Specialty Start Date End Date Dereck Schultz MD PCP - General 04/07/19 04/04/20 documented as of this encounter
--- OUTSIDE RECORDS SUMMARY | 2024-01-09 01:52 | XMS_ITS | Encounter Summary ---
Author Organization [facility] Address [address] [place] [address] Care Team Providers Care County Coroner Name Role Phone Dereck Schultz MD Primary Care Provider U navailable Reason for Visit * Reason Onset Date Comments Results 01/18/2020 Encounter Details Date Type Department Care Team (Late st Contact Info) Description 01/18/2020 Telephone [facility] Cancer Center Hematology & Oncology - [facility] [address] [place], [place] [phone] Erin Barillas MD 111 [facility], [facility] 2 [place] [address] Results Social History Tobacco Use [...] * Telephone Encounter - Augustina Salazar - 01/18/2020 0843 EDT LABS ENTERED FROM [facility]. documented in this encounter Plan of Treatment Upcoming Encounters Date Type Department Care Team (Late st Contact Info) Description 04/09/2024 16:30 EDT Office Visit [facility] Hematology & Oncology - [address] [phone] Erin Barillas MD [address] [place] [address] 2 [place] [phone] 05/18/2024 10:00 EST Office Visit [facility] Rheumatology & Immunology - [address] 879251 Tod Perez NP [address] [place] [address], [facility] 5 [place] [phone] 06/03/2024 9:00 EST Ancillary Procedure [facility] [address] [place] [address] 06/03/2024 9:00 EST Office Visit [facility] [address] [place] [address] [phone] Claire Lopez NP [address] [place] [address] [address] [place] [phone] documented as of this encounter Procedures Procedure Name Priority Date/Time Associated Diagnosis Comments COMPREHENSIVE METABOLIC PANEL (ONCOLOGY USE ONLY-INC MG) Routine 12/20/2019 COMPLETE BLOOD COUNT AND DIFFERENTIAL Routine 12/20/2019 documented in this encounter Results * (ABNORMAL) COMPREHENSIVE METABOLIC PANEL (ONCOLOGY USE ONLY-INC MG) (12/20/2019) Calcium, External 8.8 [facility] CO2, External 24.6 [facility] AST, External 32 [facility] ALT, External 35 [facility] Bilirubin, Total, External 0.4 [facility] Creatinine, External 1.01 [facility] Calculated Calcium, External [facility] Anion Gap, External [facility] Total Protein, External 6.5 [facility] Potassium, External 4.8 [facility] Total Alkaline Phosphatase, External 73 [facility] Albumin, External 3.8 [facility] BUN, External 18 [facility] GFR, Calculated, External 60 [facility] Fasting?, External [facility] Chloride, External 105 [facility] Glucose, Serum, External 131(A) 74 - 106 [facility] Sodium, External 139 [facility] Magnesium, External [facility] Blood VENOUS BLOOD / Unknown 12/20/2019 Historical Provider CHEMISTRY & BLOOD GAS ORDERABLES [facility] * (ABNORMAL) COMPLETE BLOOD COUNT AND DIFFERENTIAL (12/20/2019) WBC, External 6.07 [facility] RBC, External 5.93 [facility] Hemoglobin, External 15.9 [facility] HCT, External 50.3(A) 40.0 - 50.0 [facility] MCV, External 84.8 [facility] MCH, External 26.8(A) 27.0 - 33.0 [facility] MCHC, External 31.6(A) 32.0 - 36.0 [facility] PLT, External 365 [facility] RDW-CV, External 23.6(A) 11.8 - 14.1 [facility] Neutrophils, External 76.7 [facility] Lymphocytes, External 15.2 [facility] Monocytes, External 5.6 [facility] Eosinophils, External 2.0 [facility] Basophils, External 0.3 [facility] ABS Neutrophils, External 4.66 [facility] ABS Lymphs, External 0.92(A) 1.2 - 3.4 [facility] ABS Monocytes, External 0.34 [facility] ABS Eosinophils, External 0.12 [facility] ABS Basophils, External 0.02 [facility] Blood VENOUS BLOOD / Unknown 12/20/2019 Historical Provider PACKAGES & DNA NE OBE ORDERABLES [facility] documented in this encounter Visit Diagnoses Not on filedocumented in this encounter Care Teams County Coroner Relationship Specialty Start Date End Date Dereck Schultz MD PCP - General 04/07/19 04/04/20 documented as of this encounter
--- OUTSIDE RECORDS SUMMARY | 2024-01-09 01:52 | XMS_ITS | Encounter Summary ---
Author Organization [facility] Address [address] [place] [address] Care Team Providers Care Hot Sealing Machine Operator Name Role Phone Dereck Schultz MD Primary Care Provider U navailable Reason for Visit * Reason Onset Date Comments Coordination Of Care 01/04/2020 Encounter Details Date Type Department Care Team (Late st Contact Info) Description 01/04/2020 Telephone [facility] Cancer Center Hematology & Oncology - Main [place] [address] [place] [address] Chikis Ji, RN Coordination Of Care Social History Tobacco [...] Encounter - Chikis Ji RN - 01/04/[address] Barillas and, per Praneeth's preference, she is agreeable for Praneeth to receive future therapeutic phlebotomies at [facility] as long as Praneeth's PCP office agrees to make these arrangements. Outgoing call made to Praneeth, his Augustina answered. I advised Augustina that we still need Praneeth to gethis labs done on 01/10/2020, and if he needs TP then the clinic nurse will contact Praneeth's PCP and attempt to have this arranged at [facility]. But for now, we will keep Praneeth's scheduled TP appts on Shep 4 just in case these appts are needed, if they are not needed then the clinic nurse will cancel these appts. Augustina verbalized understanding and agreement with the plan. Of note, ??Praneeth's current PCP is Layne Cai at the [facility] (the current PCP Dereck Schultz listed for Praneeth has since retired). On 01/03/20 I asked our clinical documentation improvement specialist to please update Praneeth's PCP information in Epic. documented in this encounter Plan of Treatment Upcoming Encounters Date Type Department Care Team (Late st Contact Info) Description 04/09/2024 16:30 EDT Office Visit [facility] Hematology & Oncology - [address] [phone] Erin Barillas MD [address] [place] [address], Level [address] [place] [phone] 05/18/2024 10:00 EST Office Visit [facility] Rheumatology & Immunology - [address] [phone] Tod Perez NP 111 [facility], Level [address] [place] [phone] 06/03/2024 9:00 EST Ancillary Procedure [facility] [address] [place] [phone] 06/03/2024 9:00 EST Office Visit [facility] [address] [place] [address] [phone] Claire Lopez NP 130 [facility] [address] [place] [address] documented as of this encounter Visit Diagnoses Not on filedocumented in this encounter Care Teams Hot Sealing Machine Operator Relationship Specialty Start Date End Date Dereck Schultz MD PCP - General 04/07/19 04/04/20 documented as of this encounter
--- OUTSIDE RECORDS SUMMARY | 2024-01-09 01:52 | XMS_ITS | Encounter Summary ---
Author Organization [facility] Address [address] [place] [address] Care Team Providers Care Doorperson Name Role Phone Dereck Schultz MD Primary Care Provider U navailable Reason for Visit * Reason Onset Date Comments Results 12/14/2019 Encounter Details Date Type Department Care Team (Late st Contact Info) Description 12/14/2019 Telephone [facility] Cancer Center Hematology & Oncology - [facility] [address] [place], [place] [phone] Erin Barillas MD 111 [facility] [place] [facility], [facility] 2 [place] [address] Results Social History Tobacco Use [...] * Telephone Encounter - Augustina Salazar - 12/14/2019 1329 EDT LABS ENTERED FROM [facility]. Augustina Salazar 12/14/2019 13:29 documented in this encounter Plan of Treatment Upcoming Encounters Date Type Department Care Team (Late st Contact Info) Description 04/09/2024 16:30 EDT Office Visit [facility] Hematology & Oncology [address] [phone] Erin Barillas MD [address] [place] [address] 2 [place] [phone] 05/18/2024 10:00 EST Office Visit [facility] Rheumatology & Immunology [address] [phone] Tod Perez NP [address] [place] [address], [facility] 5 [place] [phone] 06/03/2024 9:00 EST Ancillary Procedure [facility] [address] [place] [phone] 06/03/2024 9:00 EST Office Visit [facility] [address] [place] [address] [phone] Claire Lopez NP 130 [facility] [address] [place] [phone] documented as of this encounter Procedures Procedure Name Priority Date/Time Associated Diagnosis Comments COMPREHENSIVE METABOLIC PANEL (ONCOLOGY USE ONLY-INC MG) Routine 12/14/2019 COMPLETE BLOOD COUNT AND DIFFERENTIAL Routine 12/14/2019 documented in this encounter Results * (ABNORMAL) COMPLETE BLOOD COUNT AND DIFFERENTIAL (12/14/2019) WBC, External 5.20 [facility] RBC, External 6.56(A) 4.50 - 6.00 [facility] Hemoglobin, External 17.3 [facility] HCT, External 55.1(A) 40.0 - 50.0 [facility] MCV, External 84.0 [facility] MCH, External 26.4(A) 27.0 - 33.0 [facility] MCHC, External 31.4(A) 32.0 - 36.0 [facility] PLT, External 454(A) 130 - 400 [facility] RDW-CV, External 23.5(A) 11.8 - 14.1 [facility] Neutrophils, External 68.1 [facility] Lymphocytes, External 21.2 [facility] Monocytes, External 5.8 [facility] Eosinophils, External 3.3 [facility] Basophils, External 1.0 [facility] ABS Neutrophils, External 3.55 [facility] ABS Lymphs, External 1.10(A) 1.2 - 3.4 [facility] ABS Monocytes, External 0.30 [facility] ABS Eosinophils, External 0.17 [facility] ABS Basophils, External 0.05 [facility] Blood VENOUS BLOOD / Unknown 12/14/2019 Historical Provider MD PACKAGES & DNA ND OBE ORDERABLES [facility] * (ABNORMAL) COMPREHENSIVE METABOLIC PANEL (ONCOLOGY USE ONLY-INC MG) (12/14/2019) Calcium, External 9.6 [facility] CO2, External 29.0 [facility] AST, External 20 [facility] ALT, External 22 [facility] Bilirubin, Total, External 0.7 [facility] Creatinine, External 1.22 [facility] Calculated Calcium, External [facility] Anion Gap, External [facility] Total Protein, External 7.0 [facility] Potassium, External 5.1 [facility] Total Alkaline Phosphatase, External 83 [facility] Albumin, External 4.1 [facility] BUN, External 18 [facility] GFR, Calculated, External 57.75 [facility] Fasting?, External [facility] Chloride, External 102 [facility] Glucose, Serum, External 119(A) 74 - 106 [facility] Sodium, External 138 [facility] Magnesium, External [facility] Blood VENOUS BLOOD / Unknown 12/14/2019 Historical Provider CHEMISTRY & BLOOD GAS ORDERABLES [facility] documented in this encounter Visit Diagnoses Not on filedocumented in this encounter Care Teams Doorperson Relationship Specialty Start Date End Date Dereck Schultz MD PCP - General 04/07/19 04/04/20 documented as of this encounter
--- OUTSIDE RECORDS SUMMARY | 2024-01-09 01:52 | XMS_ITS | Encounter Summary ---
Author Organization [facility] Address [address] [place] [address] Care Team Providers Care Legal Secretary Name Role Phone Dereck Schultz MD Primary Care Provider U navailable Reason for Visit * Laboratory Services (Routine) - Order Cancelled Specialty Diagnoses / Procedures Referred By Marissa carney Referred To Contact Diagnoses Encounter for long-term (current) use of medications Arthritis Procedures COMPLETE BLOOD COUNT AND DIFFERENTIAL Sudhir Rosales MD [address] [phone] Referral ID Status Reason Start Date Expiration Date V isits Requested Visits Authorized [id number] Order Cancelled 12/07/2018 1 1 Encounter Details Date Type Department Care Team (Late st Contact Info) Description 12/06/2019 9:30 EDT Phlebotomy Only [facility] ED Center 2 Phlebotomy [address] [place], [place] [phone] Supervisor [place] Department, Acc Phlebotomy Encounter for long-term (current) use of medications; Arthritis; Inflammation around joint; Polycythemia; Polycythemia vera ([facility]) Social History Tobacco Use Types Packs/Day [...] Info) Description 04/09/2024 16:30 EDT Office Visit [facility] Hematology & Oncology - [address] [phone] Erin Barillas MD [address] [place] [address] 2 [place] [phone] 05/18/2024 10:00 EST Office Visit [facility] Rheumatology & Immunology - [address] [phone] Tod Perez NP [address] [place] [address] 5 [place] [phone] 06/03/2024 9:00 EST Ancillary Procedure [facility] [address] [place] [address] 06/03/2024 9:00 EST Office Visit [facility] [address] [place] [address] Claire Lopez NP [address] [place] [address] [address] [place] [address] documented as of this encounter Procedures Procedure Name Priority Date/Time Associated Diagnosis Comments ERYTHROPOIETIN Routine 12/06/2019 9:26 EDT Polycythemia COMPLETE BLOOD COUNT AND DIFFERENTIAL STAT 12/06/2019 9:26 EDT Polycythemia vera ([facility]) COMPREHENSIVE METABOLIC PANEL (CMP) STAT 12/06/2019 9:26 EDT Polycythemia vera ([facility]) documented in this encounter Results * (ABNORMAL) COMPLETE BLOOD COUNT AND DIFFERENTIAL (12/06/2019 9:26 EDT) WBC 8.98 4.00 - 10.40 K/cmm 12/06/2019 14:47 [facility] RBC 6.97(H) 4.36 - 5.78 M/cmm 12/06/2019 14:47 [facility] Hemoglobin 17.8(H) 13.8 - 17.3 gm/dL 12/06/2019 14:47 [facility] HCT 58.4(H) 39.5 - 50.2 % 12/06/2019 14:47 [facility] MCV 84 81 - 95 fl 12/06/2019 14:47 [facility] MCH 25.5(L) 27.6 - 33.0 pg 12/06/2019 14:47 [facility] Hypochromia 1+ 12/06/2019 14:47 [facility] MCHC 30.5(L) 32.8 - 36.4 gm/dL 12/06/2019 14:47 [facility] RDW-CV 23.2(H) <14.2 % 12/06/2019 14:47 [facility] RDW-SD 66.3(H) <46.0 fl 12/06/2019 14:47 [facility] Anisocytosis 2+ 12/06/2019 14:47 [facility] PLT 551(H) 141 - 377 K/cmm 12/06/2019 14:47 [facility] MPV 11.1 9.5 - 12.7 fl 12/06/2019 14:47 [facility] % Neutrophils 75.1 % 12/06/2019 14:47 [facility] % Lymphocytes 15.7 % 12/06/2019 14:47 [facility] % Monocytes 5.3 % 12/06/2019 14:47 [facility] % Eosinophils 2.9 % 12/06/2019 14:47 [facility] % Basophils 0.6 % 12/06/2019 14:47 [facility] % Immature Grans 0.4 % 12/06/19 20 14:47 [facility] Absolute Neutrophils 6.74 2.20 - 8.85 K/cmm 12/06/2019 14:47 [facility] Absolute Lymphocytes 1.41 1.09 - 3.30 K/cmm 12/06/2019 14:47 [facility] Absolute Monocytes 0.48 0.10 - 0.80 K/cmm 12/06/2019 14:47 [facility] Absolute Eosinophils 0.26 0.03 - 0.61 K/cmm 12/06/2019 14:47 [facility] ABS Basophils 0.05 0.01 - 0.11 K/cmm 12/06/2019 14:47 [facility] Absolute Immature Grans 0.04 0.00 - 0.06 K/cmm 12/06/2019 14:47 [facility] Type of Differential: Auto 12/06/2019 14:47 [facility] Blood VENOUS BLOOD / Unknown Venipuncture / Unknown 12/06/2019 9:26 EDT 12/06/2019 9:31 EDT Erin Barillas MD PACKAGES & DNA PROBE ORDERABLES [facility] [address] [place] [address] * (ABNORMAL) COMPREHENSIVE METABOLIC PANEL (CMP) (12/06/2019 9:26 EDT) Sodium 138 136 - 145 mEq/L 12/06/2019 9:58 [facility] Potassium 4.9 3.5 - 5.0 mEq/L 12/06/2019 9:58 [facility] Chloride 102 96 - 110 mEq/L 12/06/2019 9:58 [facility] CO2 Total 30 22 - 32 mEq/L 12/06/2019 9:58 [facility] Glucose 111(H) 70 - 100 mg/dL 12/06/2019 9:58 [facility] BUN 24 10 - 26 mg/dL 12/06/2019 9:58 [facility] Creatinine 1.09 0.66 - 1.25 mg/dL 12/06/2019 9:58 [facility] eGFR 66 >60 mL/min/1.7 3m2 12/06/2019 9:58 [facility] Comment:eGFR calculated noa acosta CKD-EPI equation for non- Americans. Multiply eGFR by 1.16 for patients. Total Protein 7.1 6.3 - 8.2 g/dL 12/06/2019 9:58 [facility] Albumin 4.3 3.4 - 4.9 g/dL 12/06/2019 9:58 [facility] Alkaline Phosphatase 68 38 - 126 U/L 12/06/2019 9:58 [facility] AST 26 15 - 46 U/L 12/06/2019 9:58 [facility] ALT 16 <50 U/L 12/06/2019 9:58 [facility] Bilirubin, Total <0.5 <1.4 mg/dL 12/06/19 20 9:58 [facility] Calcium 9.6 8.5 - 10.5 mg/dL 12/06/2019 9:58 [facility] Calculated Calcium 9.4 8.5 - 10.5 mg/dL 12/06/2019 9:58 EDT [facility] Blood VENOUS BLOOD / Unknown Venipuncture / Unknown 12/06/2019 9:26 EDT 12/06/2019 9:31 EDT Erin Barillas MD CHEMISTRY & BLOOD GA S ORDERABLES [facility] [address] [place] [address] * (ABNORMAL) ERYTHROPOIETIN (12/06/2019 9:26 EDT) Erythropoietin (EPO), S 1.4(L) 2.6 - 18.5 mIU/mL 12/07/2019 12:[address] [facility] Comment: Test Performed by: [facility] [address] [place] [id number] [address] Shearer: Shiv Bhatia M.D. Ph.D.; CLIA# [id number] Blood VENOUS BLOOD / Unknown Venipuncture / Unknown 12/06/2019 9:26 EDT 12/06/2019 9:31 EDT Erin Barillas MD CHEMISTRY & BLOOD GA S ORDERABLES Performing Organization Address City/[facility]/ZIP Co de Phone Number [facility] [address] [place] [address] documented in this encounter Visit Diagnoses Diagnosis Encounter for long-term (current) use of medications Encounter for long-term (current) use of other medications Arthritis Arthropathy, unspecified, site unspecified Inflammation around joint Enthesopathy of unspecified site Polycythemia Polycythemia vera Polycythemia vera ([facility]) documented in this encounter Care Teams Legal Secretary Relationship Specialty Start Date End Date Dereck Schultz MD PCP - General 04/07/19 04/04/20 documented as of this encounter
--- OUTSIDE RECORDS SUMMARY | 2024-01-09 01:52 | XMS_ITS | Encounter Summary ---
Author Organization [facility] Address [address] [place] [address] Care Team Providers Care Airplane Pilot Crop Dusting Name Role Phone Dereck Schultz MD Primary Care Provider Anselmo mora Encounter Details Date Type Department Care Team (Latest Contact Info) Description 12/28/2019 12:45 EDT - 12/28/2019 23:59 EDT Hospital Encounter [facility] Ambulatory Infusion Center [address] [place] [address] Discharge Disposition: Home or Self Care Social [...] 12:44 EDT documented as of this encounter Last [...] 3 09/23/2019 2020 hydroxyurea (HYDREA) 500 mg capsule Take 1 Cap by mouth 3 times daily for 30 days. 90 Cap 1 12/28/2019 01/27/2020 ibuprofen (MOTRIN) 200 mg tablet Take 200 mg by mouth every 6 hours as needed for Pain. 12/15/2020 methotrexate 2.5 mg tabletIndications:Inflamm ation around joint,Encounter for long-term (current) use of medications Take 6 Tabs by mouth once a week. 72 Tab 1 12/02/2019 03/02/2020 predniSONE (DELTASONE) 5 mg tablet Take 1 Tab by mouth daily. 5mg daily x 14-21 then taper to 2.5 mg x 7 days 25 Tab 10/25/2019 03/02/2020 simvastatin (ZOCOR) 40 mg tablet Take 40 mg by mouth every evening. 11/09/2020 documented as of this encounter Discharge Disposition Disposition Code Departure Means Destination Home or Self Care documented in this encounter Progress Notes * Judith Granados RN - 12/28/2019 1318 EDT Patient Praneeth Villanueva arrives to [place] [address] infusion center for Therapeutic Phlebotomy related to D45. Pt identification verified verbally and on patient armband. Peripheral IV Placed line in place on arrival. Therapeutic Phlebotomy initiated at 1315 Completed [facility] [address] [phone] Erin Barillas MD [address] [place] [address] 2 [place] [phone] 05/18/2024 10:00 EST Office Visit [facility] Rheumatology & Immunology - [address] [phone] Tod Perez NP [address] [place] [address] 5 [place] [phone] 06/03/2024 9:00 EST Ancillary Procedure [facility] Cardiology Clinic [address] [place] [address] [phone] 06/03/2024 9:00 EST Office Visit [facility] Cardiology Clinic [address] [place] [address] [phone] Claire Lopez NP [address] [place] [address]-[address] [place] [phone] documented as of this encounter Visit Diagnoses Not on filedocumented in this encounter Care Teams Airplane Pilot Crop Dusting Relationship Specialty Start Date End Date Dereck Schultz MD PCP - General 04/07/19 04/04/20 documented as of this encounter
--- OUTSIDE RECORDS SUMMARY | 2024-01-09 01:52 | XMS_ITS | Encounter Summary ---
Author Organization [facility] Address [address] [place] [address] Care Team Providers Care Poultry Husbandry Worker Name Role Phone Dereck Schultz MD Primary Care Provider Anselmo mora Encounter Details Date Type Department Care Team (Latest Contact Info) Description 12/21/2019 13:54 EDT - 12/21/2019 23:59 EDT Hospital Encounter [facility] Ambulatory Infusion Center [address] [place] [address] Discharge Disposition: Home or Self Care Social [...] have Coronavirus / COVID-19? No / Unsure 12/21/2019 13:54 EDT documented as of this encounter Last [...] mg capsule Take 1 Cap by mouth 2 times daily for 30 days. 60 Cap 11/26/2019 12/26/2019 ibuprofen (MOTRIN) 200 mg tablet Take 200 [...] Progress Notes * Judith Granados RN - 12/21/2019 1416 EDT Patient Praneeth Villanueva arrives to [place] [address] infusion center for therapeutic phlebotomy related to D45. Pt identification verified verbally and on patient armband. Peripheral IV Placed. Therapeutic phlebotomy initiated at 1410 completed at 1430 Pt replaced with 250 ml NS Pt tolerated infusion well without signs or symptoms of infusion reaction. Peripheral IV removed. Pt left infusion center via ambulation. documented in this encounter Plan of Treatment Upcoming Encounters Date Type Department Care Team (Late st Contact Info) Description 04/09/2024 16:30 EDT Office Visit [facility] [place] Hematology & Oncology - [address] [phone] Erin Barillas MD [address] [place] [address] 2 [place] [phone] 05/18/2024 10:00 EST Office Visit [facility] Rheumatology & Immunology - [address] [phone] Tod Perez NP [address] [place] [address] 5 [place] [phone] 06/03/2024 9:00 EST Ancillary Procedure [facility] Cardiology Clinic [address] [place] [address] [phone] 06/03/2024 9:00 EST Office Visit [facility] Cardiology Clinic [address] [place] [address] Claire Lopez NP [address] [place] [address]-[address] [place] [phone] documented as of this encounter Visit Diagnoses Not on filedocumented in this encounter Care Teams Poultry Husbandry Worker Relationship Specialty Start Date End Date Dereck Schultz MD PCP - General 04/07/19 04/04/20 documented as of this encounter
--- OUTSIDE RECORDS SUMMARY | 2024-01-09 01:52 | XMS_ITS | Encounter Summary ---
Author Organization [facility] Address [address] [place] [address] Care Team Providers Care Featherer Name Role Phone Dereck Schultz MD Primary Care Provider U morgan Encounter Details Date Type Department Care Team (Latest Contact Info) Description 12/28/2019 Travel Social History Tobacco Use [...] EDT Office Visit [facility] [place] Hematology & Oncology - [address] [phone] Erin Barillas MD [address] [place] [address] 2 [place] [phone] 05/18/2024 10:00 EST Office Visit [facility] Rheumatology & Immunology - [address] [phone] Tod Perez NP [address] [place] [address] 5 [place] [phone] 06/03/2024 9:00 EST Ancillary Procedure [facility] Cardiology Clinic [address] [place] [address] [phone] 06/03/2024 9:00 EST Office Visit [facility] Cardiology Clinic [address] [place] [address] [phone] Claire Lopez NP [address] [place] [address] [phone] documented as of this encounter Visit Diagnoses Not on filedocumented in this encounter Care Teams Featherer Relationship Specialty Start Date End Date Dereck Schultz MD PCP - General 04/07/19 04/04/20 documented as of this encounter
--- OUTSIDE RECORDS SUMMARY | 2024-01-09 01:52 | XMS_ITS | Encounter Summary ---
Author Organization [facility] Address [address] [place] [address] Care Team Providers Care Apparel Embroidery Digitizer Name Role Phone Dereck Schultz MD Primary Care Provider U navailable Reason for Visit * Reason Onset Date Comments Critical Value 02/03/2020 Encounter Details Date Type Department Care Team (Late st Contact Info) Description 02/03/[address] [facility] Hematology & Oncology - [facility] [address] [place] [address] Erin Barillas MD 111 [facility], [facility] 2 [place] [address] Critical Value Social History Tobacco [...] refer to previous note written by this account underwriter on 02/03/2020 at 0857. * Telephone Encounter - Mirela Pantoja - 02/03/2020 0808 EDT Nick from [facility] calling with critical values. Paging nurse. documented in this encounter Plan of Treatment Upcoming Encounters Date Type Department Care Team (Late st Contact Info) Description 04/09/2024 16:30 EDT Office Visit [facility] Cancer [place] Hematology & Oncology - [address] [phone] Erin Barillas MD 111 [facility], [facility] 2 [place] [phone] 05/18/2024 10:00 EST Office Visit [facility] [place] [facility] Rheumatology & Immunology - [address] [phone] Tod Perez NP 111 [facility], [facility] 5 [place] [phone] 06/03/2024 9:00 EST Ancillary Procedure [facility] Cardiology Clinic [address] [place] [address] 06/03/2024 9:00 EST Office Visit [facility] Cardiology Clinic [address] [place] [address] Claire Lopez, FESTUS 130 [facility] [address] [place] [address] documented as of this encounter Visit Diagnoses Not on filedocumented in this encounter Care Teams Apparel Embroidery Digitizer Relationship Specialty Start Date End Date Dereck Schultz MD PCP - General 04/07/19 04/04/20 documented as of this encounter
--- OUTSIDE RECORDS SUMMARY | 2024-01-09 01:52 | XMS_ITS | Encounter Summary ---
Author Organization [facility] Address [address] [place] [address] Care Team Providers Care Business Liaison Manager Name Role Phone Dereck Schultz MD Primary Care Provider Anselmo mora Encounter Details Date Type Department Care Team (Latest Contact Info) Description 01/04/2020 11:40 EDT - 01/04/2020 23:59 EDT Hospital Encounter [facility] Ambulatory Infusion Center [address] [place] [address] Discharge Disposition: Home or Self Care Social [...] documented in this encounter Progress Notes * Loida Araujo, RN - 01/04/2020 1314 EDT Post T.P. Hydration completed at 13:09. VSS. PIV removed, site wnl. Pt ambulated off of unit for discharge. * Ivon Serna RN - 01/04/2020 1257 EDT Pt Praneeth Villanueva admitted to [address] for Therapeutic Phlebotomy and post hydrationafter. DX--D45 1155 Therapeutic phlebotomy started.-djp 1250Therapeutic phlebotomy [...] [facility] [address] [phone] Erin Barillas MD 111 [facility], [facility] 2 [place] [phone] 05/18/2024 10:00 EST Office Visit [facility] Rheumatology & Immunology - [address] 424351 Tod Perez NP 111 [facility], [facility] 5 [place] [phone] 06/03/2024 9:00 EST Ancillary Procedure [facility] Cardiology Clinic [address] [place] [address] [phone] 06/03/2024 9:00 EST Office Visit [facility] Cardiology Clinic [address] [place] [address] [phone] Claire Lopez, FESTUS 130 [facility] [address] [place] [address] documented as of this encounter Visit Diagnoses Not on filedocumented in this encounter Administered Medications Inactive Administered Medications - up to 3 most recent administrations Medication Order MAR Action Action Date Dose Rate Site sodium chloride 0.9 % BOLUS 250 mL 250 mL, intravenous, Once (Without Time Specified), 1 dose, Starting on Fri01/04/20 at 1215, Until Fri01/04/20 at 1309, Routine New Bag 01/04/2020 12:52 EDT 250 mL documented in this encounter Orders Medications Ordered That Ramon ht Not Have Been Administered Count Last Ordered Date First Ordered Date sodium chloride 0.9 % BOLUS 250 mL 1 2019 documented in this encounter Care Teams Business Liaison Manager Relationship Specialty Start Date End Date Dereck Schultz MD PCP - General 04/07/19 04/04/20 documented as of this encounter
--- OUTSIDE RECORDS SUMMARY | 2024-01-09 01:52 | XMS_ITS | Encounter Summary ---
Author Organization [facility] Address [address] [place] [address] Care Team Providers Care Independent Insurance Adjuster Name Role Phone Dereck Schultz MD Primary Care Provider U morgan Encounter Details Date Type Department Care Team (Latest Contact Info) Description 12/21/2019 Travel Social History Tobacco Use [...] 13:54 EDT documented as of this encounter Functional [...] Info) Description 04/09/2024 16:30 EDT Office Visit [facility] [place] Hematology & Oncology - [address] [phone] Erin Barillas MD [address] [place] [address] 2 [place] [phone] 05/18/2024 10:00 EST Office Visit [facility] Rheumatology & Immunology - [address] [phone] Tod Perez NP [address] [place] [address] 5 [place] [phone] 06/03/2024 9:00 EST Ancillary Procedure [facility] Cardiology Clinic [address] [place] [address] [phone] 06/03/2024 9:00 EST Office Visit [facility] Cardiology Clinic [address] [place] [address] [phone] Claire Lopez NP [address] [place] [address] [phone] documented as of this encounter Visit Diagnoses Not on filedocumented in this encounter Care Teams Independent Insurance Adjuster Relationship Specialty Start Date End Date Dereck Schultz MD PCP - General 04/07/19 04/04/20 documented as of this encounter
--- OUTSIDE RECORDS SUMMARY | 2024-01-09 01:52 | XMS_ITS | Encounter Summary ---
Author Organization [facility] Address [address] [place] [address] Care Team Providers Care Marine Engine Driver Name Role Phone Dereck Schultz MD Primary Care Provider U Layne Clemons MD Primary Care Provider [phone] Reason for Visit * Reason Onset Date Comments Appointment Related 02/09/2020 Encounter Details Date Type Department Care Team (Late st Contact Info) Description 02/09/2020 Telephone [facility] Cancer [facility] Hematology & Oncology - [facility] [address] [place] [address] Erin Barillas MD 111 [facility], [facility] 2 [place] [address] Appointment Related Social History Tobacco [...] encounter Miscellaneous Notes * Telephone Encounter - Elly Martinez MA - 02/09/2020 1054 EDT Called to pre-chart for 02/[address] Barillas. No answer. Will try again later. documented in this encounter Plan of Treatment Upcoming Encounters Date Type Department Care Team (Late st Contact Info) Description 04/09/2024 16:30 EDT Office Visit [facility] Cancer [place] Hematology & Oncology - [address] 260561 Erin Barillas MD 111 [facility] 2 [place] [phone] 05/18/2024 10:00 EST Office Visit [facility] Rheumatology & Immunology - [address] [phone] Tod Perez NP 111 [facility], [facility] 5 [place] [phone] 06/03/2024 9:00 EST Ancillary Procedure [facility] Cardiology Clinic [address] [place] [address] 06/03/2024 9:00 EST Office Visit [facility] Cardiology Clinic [address] [place] [address] Claire Lopez NP 130 [facility] [address] [place] [address] documented as of this encounter Visit Diagnoses Not on filedocumented in this encounter Care Teams Marine Engine Driver Relationship Specialty Start Date End Date Dereck Schultz MD PCP - General 04/07/19 04/04/20 Layne Cai MD [address] [place] [phone] PCP - General 04/05/20 12/16/23 documented as of this encounter
--- OUTSIDE RECORDS SUMMARY | 2024-01-09 01:52 | XMS_ITS | Encounter Summary ---
Author Organization [facility] Address [address] [place] [address] Care Team Providers Care Sap [employer]ico Business Analyst Name Role Phone Dereck Schultz MD Primary Care Provider U navailable Reason for Visit * Reason Onset Date Comments Coordination Of Care 12/30/2019 Encounter Details Date Type Department Care Team (Late st Contact Info) Description 12/30/2019 Telephone [facility] Hematology & Oncology - [place] [address] [place] [address] Chikis Ji, RN Coordination Of Care Social [...] Encounter - Chikis Ji RN - 12/30/[address] Barillas, Praneeth needs weekly therapeutic phlebotomies until his Hct <45, and Praneeth needs CBCD/CMP labs done prior to each TP. I scheduled Praneeth for lab dependent weekly therapeutic phlebotomies through 02/15/2020 on Shep 4. Praneeth will continue to get his weekly labs done at [facility] the day prior to each scheduled therapeutic phlebotomy. Standing CBCD/CMP orders are already in place at [facility] - I called the lab today and they confirmed the standing orders are valid until December 2020. Praneeth and his are aware of the TP appts via [employer]. documented in this encounter Plan of Treatment Upcoming Encounters Date Type Department Care Team (Late st Contact Info) Description 04/09/2024 16:30 EDT Office Visit [facility] Cancer [place] Hematology & Oncology - [address] [phone] Erin Barillas MD 111 [facility] 2 [place] [phone] 05/18/2024 10:00 EST Office Visit [facility] Rheumatology & Immunology - [address] 996131 Tod Perez NP 111 [facility], [facility] 5 [place] [phone] 06/03/2024 9:00 EST Ancillary Procedure [facility] [address] [place], [place] 402252 06/03/2024 9:00 EST Office Visit [facility] [address] [place] [address] Claire Lopez NP 130 [facility] [address] [place] [phone] documented as of this encounter Visit Diagnoses Not on filedocumented in this encounter Care Teams Sap [employer]ico Business Analyst Relationship Specialty Start Date End Date Dereck Schultz MD PCP - General 04/07/19 04/04/20 documented as of this encounter
--- OUTSIDE RECORDS SUMMARY | 2024-01-09 01:52 | XMS_ITS | Encounter Summary ---
Author Organization [facility] Address [address] [place] [address] Care Team Providers Care Cell Tester Name Role Phone Dereck Schultz MD Primary Care Provider U navailable Reason for Visit * Reason Onset Date Comments Labs Only 02/07/2020 Follow-up 02/07/2020 Encounter Details Date Type Department Care Team (Late st Contact Info) Description 02/07/2020 Telephone [facility] Cancer Center Hematology & Oncology - [place] [address] [place], [place] [phone] Chikis Ji, TRAM Labs Only; Follow-up Social History Tobacco Use Types Packs/Day [...] Encounter - Chikis Ji RN - 02/07/2020 9374 EDT Received Praneeth's lab results collected today from [facility] lab. Entered external lab results. Per discussion with Dr. Barillas, [...] has improved, he should stop the prophylactic antimicrobials.Also advised that Dr. Barillas wants him to continue to hold his Hydrea and get repeat labs again nextMon 02/14/2020. Both parties verbalized understanding. Of note, Praneeth [...] [facility] Hematology & Oncology - [address] [phone] Erin Barillas MD [address] [place] [address] 2 [place] [phone] 05/18/2024 10:00 EST Office Visit [facility] Rheumatology & Immunology - [address] [phone] Tod Perez NP 111 [facility], [facility] 5 [place] [phone] 06/03/2024 9:00 EST Ancillary Procedure [facility] Cardiology Clinic [address] [place] [address] 06/03/2024 9:00 EST Office Visit [facility] Cardiology Clinic [address] [place], [place] [phone] JessicaClaire, FESTUS 130 [facility]A [address] [place] [address] documented as of this encounter Procedures Procedure Name Priority Date/Time Associated Diagnosis Comments COMPLETE BLOOD COUNT AND DIFFERENTIAL Routine 02/07/2020 COMPREHENSIVE METABOLIC PANEL (CMP) Routine 02/07/2020 COMPLETE BLOOD COUNT AND DIFFERENTIAL Routine 02/03/2020 COMPREHENSIVE METABOLIC PANEL (CMP) Routine 02/03/2020 documented in this encounter Results * COMPLETE BLOOD COUNT AND DIFFERENTIAL (02/07/2020) WBC, External 3.60 [facility] POINT OF CARE [...] ABS Monocytes, External 0.58 [facility] POINT OF CARE ABS Eosinophils, External 0.07 [facility] POINT OF CARE ABS Basophils, External 0.07 [facility] POINT OF CARE Blood VENOUS BLOOD / Unknown 02/07/2020 Erin Barillas MD PACKAGES & DNA PROBE ORDERABLES Performing Organization Address City/[facility]/ZIP Co de Phone Number [facility] POINT OF CARE * COMPREHENSIVE METABOLIC PANEL (CMP) (02/07/2020) GFR, Calculated, External >60 [facility] POINT OF CARE Glucose, Serum, External 123 [facility] POINT OF CARE Albumin, External 4.1 [facility] POINT OF CARE Total Alkaline Phosphatase, External 66 [facility] POINT OF CARE ALT, External 25 [facility] POINT OF CARE AST, External 20 [facility] POINT OF CARE BUN, External 19 [facility] POINT OF CARE Calculated Calcium, External [facility] POINT OF CARE Calcium, External 9.0 [facility] POINT OF CARE [...] OF CARE Blood VENOUS BLOOD / Unknown 02/07/2020 Erin Barillas MD CHEMISTRY & BLOOD GA S ORDERABLES [facility] POINT OF CARE * COMPLETE BLOOD COUNT AND DIFFERENTIAL (02/03/2020) WBC, External 1.76 [facility] POINT OF CARE [...] ABS Monocytes, External 0.40 [facility] POINT OF CARE ABS Eosinophils, External 0.04 [facility] POINT OF CARE ABS Basophils, External 0.04 [facility] POINT OF CARE Blood VENOUS BLOOD / Unknown 02/03/2020 Erin Barillas MD PACKAGES & DNA PROBE ORDERABLES [facility] POINT OF CARE * COMPREHENSIVE METABOLIC PANEL (CMP) (02/03/2020) GFR, Calculated, External 57.75 [facility] POINT OF CARE Glucose, Serum, External 115 [facility] POINT OF CARE Albumin, External 4.2 [facility] POINT OF CARE Total Alkaline Phosphatase, External 71 [facility] POINT OF CARE ALT, External 25 [facility] POINT OF CARE AST, External 22 [facility] POINT OF CARE BUN, External 17 [facility] POINT OF CARE Calculated Calcium, External [facility] POINT OF CARE Calcium, External 9.0 [facility] POINT OF CARE [...] OF CARE Blood VENOUS BLOOD / Unknown 02/03/2020 Erin Barillas MD CHEMISTRY & BLOOD GA S ORDERABLES [facility] POINT OF CARE documented in this encounter Visit Diagnoses Not on filedocumented in this encounter Care Teams Cell Tester Relationship Specialty Start Date End Date Dereck Schultz MD PCP - General 04/07/19 04/04/20 documented as of this encounter
--- OUTSIDE RECORDS SUMMARY | 2024-01-09 01:52 | XMS_ITS | Encounter Summary ---
Author Organization [facility] Address [address] [place] [address] Care Team Providers Care Firearms Instructor Name Role Phone Dereck Schultz MD Primary Care Provider U navailable Reason for Visit * Reason Onset Date Comments Labs Only 12/14/2019 Encounter Details Date Type Department Care Team (Late st Contact Info) Description 12/14/2019 Telephone [facility] Hematology & Oncology - Main [place] [address] [place] [address] Chikis Ji, TRAM Labs Only [...] Received Praneeth's lab results collected today from [facility]. Left voicemail for Praneeth and his Augustina letting them know we received the results and Praneeth should attend his previously arranged therapeutic phlebotomy appointment on [facility] 4 tomorrow 12/15/2019 [id number]. I requested them to please call back if they have any questions or concerns. * Telephone Encounter - Chikis Ji RN - 12/14/2019 1149 EDT Called [facility] to inquire about Praneeth's CBCD/CMP results from this morning. I spoke with Layne - she said the results are complete and she will fax the results to [facility] fax [phone]. Will continue to monitor for incoming fax. documented in this encounter Plan of Treatment Upcoming Encounters Date Type Department Care Team (Late st Contact Info) Description 04/09/2024 16:30 EDT Office Visit [facility] Hematology & Oncology - [address] [phone] Erin Barillas MD [address] [place] [address], [facility] [address] [place] [address] 05/18/2024 10:00 EST Office Visit [facility] Rheumatology & Immunology - [address] [phone] Tod Perez NP [address] [place] [address], [facility] [address] [place] [address] 06/03/2024 9:[address] [facility] [address] [place] [address] [phone] 06/03/2024 9:[address] [facility] [address] [phone] Claire Lopez NP [address] [place] [address] MOB-A [address] [place] [address] documented as of this encounter Visit Diagnoses Not on filedocumented in this encounter Care Teams Firearms Instructor Relationship Specialty Start Date End Date Dereck Schultz MD PCP - General 04/07/19 04/04/20 documented as of this encounter
--- OUTSIDE RECORDS SUMMARY | 2024-01-09 01:52 | XMS_ITS | Encounter Summary ---
Author Organization [facility] Address [address] [place] [address] Care Team Providers Care Diet Attendant Name Role Phone Dereck Schultz MD Primary Care Provider U navailable Reason for Visit * Reason Onset Date Comments Labs Only 12/27/2019 Encounter Details Date Type Department Care Team (Late st Contact Info) Description 12/27/2019 Telephone [facility] Hematology & Oncology - Main [place] [address] [place] [address] Chikis Ji, TRAM Labs Only [...] 1520 EDT Entered external lab results from [facility] that were collected on 12/27/2019. documented in this encounter Plan of Treatment Upcoming Encounters Date Type Department Care Team (Late st Contact Info) Description 04/09/2024 16:30 EDT Office Visit [facility] Hematology & Oncology - [address] [phone] Erin Barillas MD [address] [place] [address] 2 [place] [phone] 05/18/2024 10:00 EST Office Visit [facility] Rheumatology & Immunology - [address] [phone] Tod Perez NP [address] [place] [address], [facility] 5 [place] [phone] 06/03/2024 9:00 EST Ancillary Procedure [facility] Clinic [address] [place] [address] [phone] 06/03/2024 9:00 EST Office Visit [facility] [address] [place] [address] [phone] Claire Lopez NP [address] [place] [address]-A [address] [place] [phone] documented as of this encounter Procedures Procedure Name Priority Date/Time Associated Diagnosis Comments COMPREHENSIVE METABOLIC PANEL (CMP) Routine 11/09/2020 14:40 EDT COMPLETE BLOOD COUNT AND DIFFERENTIAL Routine 12/27/2019 COMPREHENSIVE METABOLIC PANEL (CMP) Routine 12/27/2019 documented in this encounter Results * (ABNORMAL) COMPREHENSIVE METABOLIC PANEL (CMP) (11/09/2020 14:40 EDT) Albumin % 4.6 3.4 - 4.9 g/dL 11/09/2020 15:19 [facility] ALKALINE PHOSPHATASE - [facility] 65 38 - 126 U/L 11/09/2020 15:19 [facility] BILIRUBIN TOTAL 0.5 0.2 - 1.3 mg/dL 11/09/2020 15:19 [facility] BUN - [facility] 19 10 - 26 mg/dL 11/09/2020 15:19 [facility] CALCIUM - [facility] 9.5 8.5 - 10.5 mg/dL 11/09/2020 15:19 [facility] Chloride 103 96 - 110 mmol/L 11/09/2020 15:19 [facility] CO2 Total 22 21 - 32 mEq/L 11/09/2020 15:19 [facility] CREATININE 1.01 0.66 - 1.25 mg/dL 11/09/2020 15:19 [facility] eGFR >60 11/09/2020 15:19 [facility] Comment: Chronic renal impairment is defined as GFR <60 Multiply result by 1.210 for patients. Anion Gap 14 0 - 18 11/09/2020 15:19 [facility] GLUCOSE - [facility] 152(H) 70 - 100 mg/dL 11/09/2020 15:19 [facility] Potassium 4.3 3.5 - 5.0 mEq/L 11/09/2020 15:19 [facility] Sodium 139 136 - 145 mEq/L 11/09/2020 15:19 [facility] TOTAL PROTEIN - [facility] 7.1 6.2 - 8.2 gm/dL 11/09/2020 15:19 EDT [facility] SGOT/AST - [facility] 23 17 - 59 U/L 11/09/2020 15:19 EDT [facility] SGPT/ALT - [facility] 15 0 - 50 U/L 15:19 EDT [facility] Blood VENOUS BLOOD / Unknown 11/09/2020 14:40 EDT 11/09/2020 15:03 EDT Erin Barillas MD CHEMISTRY & BLOOD GA S ORDERABLES [facility] [address] [place] [address] * COMPREHENSIVE METABOLIC PANEL (CMP) (12/27/2019) GFR, Calculated, External >=60 POINT OF CARE [facility] Glucose, Serum, External 117 [facility]INT [facility] C[facility] Albumin, External 4.0 [facility]INT [facility] C[facility] Total Alkaline Phosphatase, External 70 [facility] C[facility] ALT, External 32 [facility] AST, External 30 [facility] BUN, External 19 [facility] Calculated Calcium, External POINT [facility] CARE [facility] Calcium, External 9.2 [facility] [...] E [facility] Blood VENOUS BLOOD / Unknown 12/27/2019 Erin Barillas MD CHEMISTRY & BLOOD GA S ORDERABLES POINT OF CARE [facility] * COMPLETE BLOOD COUNT AND DIFFERENTIAL (12/27/2019) WBC, External 4.01 POINT [facility] C[facility] [...] ABS Neutrophils, External 2.7 POINT [facility] CARE [facility] ABS Lymphs, External 0.97 [facility]INT [facility] C[facility] ABS Monocytes, External 0.25 POINT [facility] CARE [facility] ABS Eosinophils, External 0.07 POINT [facility] CARE [facility] ABS Basophils, External 0.02 POINT [facility] CARE [facility] Blood VENOUS BLOOD / Unknown 12/27/2019 Erin Barillas MD PACKAGES & DNA PROBE ORDERABLES POINT OF CARE [facility] documented in this encounter Visit Diagnoses Not on filedocumented in this encounter Care Teams Diet Attendant Relationship Specialty Start Date End Date Dereck Schultz MD PCP - General 04/07/19 04/04/20 documented as of this encounter
--- OUTSIDE RECORDS SUMMARY | 2024-01-09 01:52 | XMS_ITS | Encounter Summary ---
Author Organization [facility] Address [address] [place] [address] Care Team Providers Care Brickmason Helper Name Role Phone Dereck Schultz MD Primary Care Provider U navailable Reason for Visit * Reason Onset Date Comments Follow-up 12/27/2019 Encounter Details Date Type Department Care Team (Late st Contact Info) Description 12/27/2019 Telephone [facility] Hematology & Oncology - Main [place] [address] [place] [address] Chikis Ji RN Follow-up Social [...] the Hydrea prescription has been sent to [facility] in [facility] - he verbalized understanding. * Telephone Encounter - Chikis Ji RN - 12/27/2019 1409 EDT Received copy of Praneeth's lab results collected today at . Reviewed results with Dr. Barillas - she recommends Praneeth continue Hydrea 500 mg PO TID, and that Praneeth needsto continue with the previously arranged therapeutic phlebotomy that is scheduled for tomorrow 12/27. I called Praneeth and his Augustina answered. I relayed the above information and she verbalized understanding. Per Augustina, Praneeth has enough Hydrea pills until the evening of Fri12/29/2019, so she is requesting aprescription be sent to the [facility] pharmacy in [facility]. I entered the Hydrea prescription and routed to Dr. Barillas for review and signature. documented in this encounter Plan of Treatment Upcoming Encounters Date Type Department Care Team (Late st Contact Info) Description 04/09/2024 16:30 EDT Office Visit [facility] Hematology & Oncology - [address] [phone] Erin Barillas MD [address] [place] [address], Level [address] [place] [phone] 05/18/2024 10:00 EST Office Visit [facility] Rheumatology & Immunology - [facility] [address] [place] [address] Tod Perez CHILD ATTENDANT [address] [facility], [address] [place] [address] 06/03/2024 9:00 EST Ancillary Procedure [facility]iology Clinic [address] [place] [address] [phone] 06/03/2024 9:00 EST Office Visit [facility]iology Clinic [address] [place] [address] [phone] Claire Lopez NP [address] [facility] MOB-A [address] [place] [phone] documented as of this encounter Visit Diagnoses Diagnosis Polycythemia vera ([facility])- Primary documented in this encounter Care Teams Brickmason Helper Relationship Specialty Start Date End Date Dereck Schultz MD PCP - General 04/07/19 04/04/20 documented as of this encounter
--- OUTSIDE RECORDS SUMMARY | 2024-01-09 01:52 | XMS_ITS | Encounter Summary ---
Author Organization [facility] Address [address] [place] [address] Care Team Providers Care Rn Document Improvement Name Role Phone Dereck Schultz MD Primary Care Provider U morgan Encounter Details Date Type Department Care Team (Late st Contact Info) Description 12/28/2019 Orders Only [facility] Center Hematology & Oncology - [facility] [address] [place] [address] Erin Barillas MD 111 [facility], Level [address] [place] [address] Social History Tobacco Use Types [...] 30 days. 90 Cap 1 12/28/2019 01/27/2020 documented in this encounter Plan of Treatment Upcoming Encounters Date Type Department Care Team (Late st Contact Info) Description 04/09/2024 16:30 EDT Office Visit [facility] Hematology & Oncology [address] [phone] Erin Barillas MD [address] [place] [address] 2 [place] [phone] 05/18/2024 10:00 EST Office Visit [facility] Rheumatology & Immunology [address] [phone] Tod Perez NP [address] [place] [address], [facility] 5 [place] [phone] 06/03/2024 9:00 EST Ancillary Procedure [facility] [address] [place] [address] [phone] 06/03/2024 9:00 EST Office Visit [facility] [address] [place] [address] [phone] Claire oLpez NP [address] [place] [address]-A [address] [phone] documented as of this encounter Visit Diagnoses Not on filedocumented in this encounter Care Teams Rn Document Improvement Relationship Specialty Start Date End Date Dereck Schultz MD PCP - General 04/07/19 04/04/20 documented as of this encounter
--- OUTSIDE RECORDS SUMMARY | 2024-01-09 01:52 | XMS_ITS | Encounter Summary ---
Author Organization [facility] Address [address] [place] [address] Care Team Providers Care Locum Tenens Psychiatrist Name Role Phone Dereck Schultz MD Primary Care Provider U navailable Reason for Visit * Reason Onset Date Comments Follow-up 12/20/2019 Encounter Details Date Type Department Care Team (Late st Contact Info) Description 12/20/2019 Telephone [facility] Hematology & Oncology - Main [place] [address] [place] [address] Chikis Ji RN Follow-up Social [...] Encounter - Chikis Ji RN - 12/20/2019 8662 EDT Per discussion with Dr. Barillas, Praneeth [...] Info) Description 04/09/2024 16:30 EDT Office Visit [facility] Hematology & Oncology - [address] [phone] Erin Barillas MD [address] [place] [address] 2 [place] [phone] 05/18/2024 10:00 EST Office Visit [facility] Rheumatology & Immunology [address] [address]18101 Tod Perez NP [address] [place] [address], [facility] 5 [place] [phone] 06/03/2024 9:00 EST Ancillary Procedure [facility] Cardiology Clinic [address] [place] [address] 06/03/2024 9:00 EST Office [facility]iology Clinic [address] [place] [address] [phone] Claire Lopez NP [address] [place] [address] MOB-A [address] [place] [phone] documented as of this encounter Visit Diagnoses Not on filedocumented in this encounter Care Teams Locum Tenens Psychiatrist Relationship Specialty Start Date End Date Dereck Schultz MD PCP - General 04/07/19 04/04/20 documented as of this encounter
--- OUTSIDE RECORDS SUMMARY | 2024-01-09 01:52 | XMS_ITS | Encounter Summary ---
Author Organization [facility] Address [address] [place] [address] Care Team Providers Care Software Release Manager Name Role Phone Dereck Schultz MD Primary Care Provider U navailable Reason for Visit * Reason Onset Date Comments Follow-up 02/14/2020 Encounter Details Date Type Department Care Team (Late st Contact Info) Description 02/14/2020 Telephone [facility] Cancer Center Hematology & Oncology - Main [place] [address] [place], [place] [phone] Chikis Ji RN Follow-up Social History Tobacco [...] Encounter - Chikis Ji RN - 02/14/2020 1455 EDT Per discussion with Dr. Barillas, Praneeth can restart Hydrea 500 mg daily and he needs to get repeat labsin 1 week. Outgoing call made to Praneeth - I advised him of the above information from Dr. Barillas and he verbalized understanding and agreement. Outgoing call made to Praneeth's Augustina - no answer so I left a voicemail with the above information from Dr. Barillas. * Telephone Encounter - Chikis Ji RN - 02/14/2020 1413 EDT Entered external lab results collected on 02/14/2020 from [facility] lab. Of note, BCR-ABL lab was collected but it gets sent to [facility] so it will not result for a few days. [place] lab said they will fax the final result to the clinic fax number [phone]. documented in this encounter Plan of Treatment Upcoming Encounters Date Type Department Care Team (Late st Contact Info) Description 04/09/2024 16:30 EDT Office Visit [facility] Hematology & Oncology - [address] [phone] Erin Barillas MD [address] [place] [address] 2 [place] [address] 05/18/2024 10:00 EST Office Visit [facility] Rheumatology & Immunology - [address] [phone] Tod Perez NP [address] [place] [address], [facility] 5 [place] [address] 06/03/2024 9:00 EST Ancillary Procedure [facility] Cardiology Clinic [address] [place] [phone] 06/03/2024 9:00 EST Office Visit [facility] Cardiology Clinic [address] [place] [address], [place] 850982 Claire Lopez NP 130 [facility] MOB-A [address] [place] [phone] documented as of this encounter Procedures Procedure Name Priority Date/Time Associated Diagnosis Comments COMPLETE BLOOD COUNT AND DIFFERENTIAL Routine 02/14/2020 COMPREHENSIVE METABOLIC PANEL (CMP) Routine 02/14/2020 documented in this encounter Results * COMPLETE BLOOD COUNT AND DIFFERENTIAL (02/14/2020) WBC, External 6.10 [facility] POINT OF CARE [...] OF CARE Blood VENOUS BLOOD / Unknown 02/14/2020 Erin Barillas MD PACKAGES & DNA PROBE ORDERABLES [facility] POINT OF CARE * COMPREHENSIVE METABOLIC PANEL (CMP) (02/14/2020) GFR, Calculated, External >60 [facility] POINT OF CARE Glucose, Serum, External 128 [facility] POINT OF CARE Albumin, External 4.1 [facility] POINT OF CARE Total Alkaline Phosphatase, External 69 [facility] POINT OF CARE ALT, External 26 [facility] POINT OF CARE AST, External 22 [facility] POINT OF CARE BUN, External 24 [facility] POINT OF CARE Calculated Calcium, External [facility] POINT OF CARE Calcium, External 9.1 [facility] POINT OF CARE [...] OF CARE Blood VENOUS BLOOD / Unknown 02/14/2020 Erin Barillas MD CHEMISTRY & BLOOD GA S ORDERABLES [facility] POINT OF CARE documented in this encounter Visit Diagnoses Not on filedocumented in this encounter Care Teams Software Release Manager Relationship Specialty Start Date End Date Dereck Schultz MD PCP - General 04/07/19 04/04/20 documented as of this encounter
--- OUTSIDE RECORDS SUMMARY | 2024-01-09 01:52 | XMS_ITS | Encounter Summary ---
Author Organization [facility] Address [address] [place] [address] Care Team Providers Care Nnp Name Role Phone Dereck Schultz MD Primary Care Provider U navailable Reason for Visit * Reason Onset Date Comments Labs Only 02/22/2020 Follow-up 02/22/2020 Encounter Details Date Type Department Care Team (Late st Contact Info) Description 02/22/2020 Telephone [facility] Cancer Center Hematology & Oncology - Main [place] [address] [place], [place] [phone] Chikis Ji, TRAM Labs Only; Follow-up Social [...] * Telephone Encounter - Karin Cardoza - 02/23/2020 1724 EDT Call Augustina and she wants to do a phone call on 02/[address] Dr[address] Barillas. * Telephone Encounter - Chikis Ji RN - 02/22/2020 1217 EDT Entered external labs (CBCD/CMP) collected today at [facility]. Forwarded results to Dr. Barillas for [...] a Zoom link. I told her I'd ask our mental health social worker to call her and clarify the plan. I sent an [employer] message to vp clinical research. Of note, I securely emailed Praneeth's BCR-ABL results to Dr. Barillas for review and sent copy of resultsto be scanned into Praneeth's medical record. documented in this encounter Plan of Treatment Upcoming Encounters Date Type Department Care Team (Late st Contact Info) Description 04/09/2024 16:30 EDT Office Visit [facility] Cancer Center Hematology & Oncology - [address] [address] Erin Barillas MD 111 [facility], Level 2 [place] [phone] 05/18/2024 10:00 EST Office Visit [facility] Rheumatology & Immunology - [facility] [address] [place], [place] [phone] Tod Perez, TRACTOR MECHANIC APPRENTICE 111 [facility], [facility], Level [address] [place] [phone] 06/03/2024 9:00 EST Ancillary Procedure [facility] Cardiology Clinic [address] [place] [address] 06/03/2024 9:00 EST Office Visit [facility] Cardiology Clinic [address] [place] [address] Claire Lopez NP 130 [facility] MOB[address]A [address] [place] [address] documented as of this encounter Procedures Procedure Name Priority Date/Time Associated Diagnosis Comments COMPLETE BLOOD COUNT AND DIFFERENTIAL Routine 02/22/2020 COMPREHENSIVE METABOLIC PANEL (CMP) Routine 02/22/2020 documented in this encounter Results * COMPREHENSIVE METABOLIC PANEL (CMP) (02/22/2020) GFR, Calculated, External >60 [facility] POINT OF CARE Glucose, Serum, External 125 [facility] POINT OF CARE Albumin, External 3.9 [facility] POINT OF CARE Total Alkaline Phosphatase, External 63 [facility] POINT OF CARE ALT, External 24 [facility] POINT OF CARE [...] OF CARE Blood VENOUS BLOOD / Unknown 02/22/2020 Erin Barillas MD CHEMISTRY & BLOOD GA S ORDERABLES [facility] POINT OF CARE * COMPLETE BLOOD COUNT AND DIFFERENTIAL (02/22/2020) WBC, External 5.55 [facility] POINT OF CARE [...] ABS Monocytes, External 0.36 [facility] POINT OF CARE ABS Eosinophils, External 0.09 [facility] POINT OF CARE ABS Basophils, External 0.01 [facility] POINT OF CARE Blood VENOUS BLOOD / Unknown 02/22/2020 Erin Barillas MD PACKAGES & DNA PROBE ORDERABLES [facility] POINT OF CARE documented in this encounter Visit Diagnoses Not on filedocumented in this encounter Care Teams Nnp Relationship Specialty Start Date End Date Dereck Schultz MD PCP - General 04/07/19 04/04/20 documented as of this encounter
--- OUTSIDE RECORDS SUMMARY | 2024-01-09 01:52 | XMS_ITS | Encounter Summary ---
Author Organization [facility] Address [address] [place] [address] Care Team Providers Care Senior Computer Specialist Name Role Phone Dereck Schultz MD Primary Care Provider Anselmo mora Encounter Details Date Type Department Care Team (Latest Contact Info) Description 12/15/2019 14:16 EDT - 12/15/2019 23:59 EDT Hospital Encounter [facility] [address] [place] [address] Discharge Disposition: Home or Self Care Social [...] 11:42 EDT documented as of this encounter Last [...] documented in this encounter Progress Notes * NunezSavannah ramirez RN - 12/15/2019 1430 EDT Therapeutic phlebotomy [...] Info) Description 04/09/2024 16:30 EDT Office Visit [facility] Hematology & Oncology - [address] [phone] Erin Barillas MD [address] [place] [address] 2 [place] [phone] 05/18/2024 10:00 EST Office Visit [facility] Rheumatology & Immunology - [address] [phone] Tod Perez NP [address] [place] [address] 5 [place] [phone] 06/03/2024 9:00 EST Ancillary Procedure [facility] Cardiology Clinic [address] [place] [address] [phone] 06/03/2024 9:00 EST Office Visit [facility] [address] [place] [address] [phone] Claire Lopez NP [address] [place] [address]-A [address] [place] [address] documented as of this encounter Visit Diagnoses Not on filedocumented in this encounter Care Teams Senior Computer Specialist Relationship Specialty Start Date End Date Dereck Schultz MD PCP - General 04/07/19 04/04/20 documented as of this encounter
--- OUTSIDE RECORDS SUMMARY | 2024-01-09 01:52 | XMS_ITS | Encounter Summary ---
Author Organization [facility] Address [address] [place] [address] Care Team Providers Care Flexible Machining System Machinist Name Role Phone Dereck Schultz MD Primary Care Provider U navailable Reason for Visit * Reason Comments Telemedicine Video Visit Encounter Details Date Type Department Care Team (Late st Contact Info) Description 12/20/2019 9:30 EDT Telemedicine [facility] Hematology & Oncology - [facility] [address] [place], [place] [phone] Erin Barillas MD 111 [facility], Level 2 [place] [address] Polycythemia vera (HCC-CMS) (Primary Dx) [...] Progress Notes * Erin Barillas MD - 12/20/2019 0930 EDT [...] that he spent the winter in [place] and noted that his fingers would turn red and get cold very easily. Denies any epistaxis, gum bleeding or easy bruising. Patient denies any history of blood clots. 12 point ROS performed with pertinent positives and negatives as documented in HPI and ROS summary below. Social history: Retired. Worked for the [employer] Former smoker with 20 pack year smoking [...] on phone: None Gets together: None Attends shinto service: None Active member of club or organization: None Attends meetings of clubs or organizations: None Relationship status: None ??? Intimate partner violence Fear of current or ex partner: None Emotionally abused: None Physically abused: None Forced sexual activity: None Other Topics Concern ??? 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 Check weeklylabs. 3. Continue low-dose Aspirin 81mg daily. We [...] [facility] Cancer Center Hematology [place] [address] Erin Barillas MD [address] [place] [address], [facility] 2 [place] [phone] 05/18/2024 10:00 EST Office Visit [facility] Rheumatology & Immunology - [facility] [address] [place], [place] [phone] Tod Perez, BAGGAGE AGENT SUPERVISOR 111 [facility], [facility] 5 [place] [address] 06/03/2024 9:00 EST Ancillary Procedure [facility] Clinic [address] [place] [address] 06/03/2024 9:00 EST Office Visit [facility] [address] [place] [address] Claire Lopez NP 130 [facility] [address] [place] [address] documented as of this encounter Visit Diagnoses Diagnosis Polycythemia vera (HCC-CMS)- Primary documented in this encounter Care Teams Flexible Machining System Machinist Relationship Specialty Start Date End Date Dereck Schultz MD PCP - General 04/07/19 04/04/20 documented as of this encounter
--- OUTSIDE RECORDS SUMMARY | 2024-01-09 01:52 | XMS_ITS | Encounter Summary ---
Author Organization [facility] Address [address] [place] [address] Care Team Providers Care Reroller Hand Name Role Phone Dereck Schultz MD Primary Care Provider U navailable Reason for Visit * Reason Onset Date Comments Labs Only 01/10/2020 Encounter Details Date Type Department Care Team (Late st Contact Info) Description 01/10/2020 Telephone [facility] Center Hematology & Oncology - [place] [address] [place] [address] Chikis Ji, TRAM Labs Only [...] Encounter - Chikis Ji RN - 01/10/2020 2416 EDT Entered external lab results from [facility]. Labs collected on 01/10/2020. documented in this encounter Plan of Treatment Upcoming Encounters Date Type Department Care Team (Late st Contact Info) Description 04/09/2024 16:30 EDT Office Visit [facility] Hematology & Oncology - [address] [phone] Erin Barillas MD [address] [place] [address] 2 [place] [phone] 05/18/2024 10:00 EST Office Visit [facility] Rheumatology & Immunology - [address] [phone] Tod Perez NP [address] [place] [address], [facility] 5 [place] [phone] 06/03/2024 9:00 EST Ancillary Procedure [facility] Cardiology Clinic [address] [place] [phone] 06/03/2024 9:00 EST Office Visit [facility] Cardiology Clinic [address] [place] [phone] Claire Lopez NP [address] [place] [address]-A [address] [place] [phone] documented as of this encounter Procedures Procedure Name Priority Date/Time Associated Diagnosis Comments COMPLETE BLOOD COUNT AND DIFFERENTIAL Routine 01/10/2020 COMPREHENSIVE METABOLIC PANEL (CMP) Routine 01/10/2020 documented in this encounter Results * COMPLETE BLOOD COUNT AND DIFFERENTIAL (01/10/2020) WBC, External 4.03 POINT [facility] C[facility] [...] ABS Neutrophils, External 2.75 POINT OF C[facility] ABS Lymphs, External 1.03 POINT [facility] CARE [facility] ABS Monocytes, External 0.18 POINT [facility] CARE [facility] ABS Eosinophils, External 0.04 POINT OF CARE [facility] ABS Basophils, External 0.02 POINT [facility] CARE [facility] Blood VENOUS BLOOD / Unknown 01/10/2020 Erin Barillas MD PACKAGES & DNA PROBE ORDERABLES POINT OF CARE [facility] * COMPREHENSIVE METABOLIC PANEL (CMP) (01/10/2020) GFR, Calculated, External >=60 POINT [facility] CARE [facility] Glucose, Serum, External 114 POINT [facility] C[facility] Albumin, External 3.8 POINT [facility] C[facility] Total Alkaline Phosphatase, External 59 [facility] ALT, External 28 [facility] AST, External 28 [facility] BUN, External 23 [facility] C[facility] Calculated Calcium, External POINT [facility] C[facility] Calcium, External 8.7 POINT [facility] C[facility] Chloride, External 106 POINT [facility] C[facility] CO2, External 26.0 POINT [facility] C[facility] Creatinine, External 1.02 POINT [facility] C[facility] Fasting?, External POINT [facility] C[facility] Potassium, External 4.3 POINT [facility] CARE [facility] Sodium, External 140 POINT [facility] CARE [facility] Total Protein, External 6.4 POINT OF CARE [facility] Bilirubin, Total, External 0.6 POINT OF CAR E [facility] Blood VENOUS BLOOD / Unknown 01/10/2020 Erin Barillas MD CHEMISTRY & BLOOD GA S ORDERABLES POINT OF CARE [facility] documented in this encounter Visit Diagnoses Not on filedocumented in this encounter Care Teams Reroller Hand Relationship Specialty Start Date End Date Dereck Schultz MD PCP - General 04/07/19 04/04/20 documented as of this encounter
--- OUTSIDE RECORDS SUMMARY | 2024-01-09 01:53 | XMS_ITS | Encounter Summary ---
Author Organization [facility] Address [address] [place] [address] Care Team Providers Care Utility Worker Production Name Role Phone Dereck Schultz MD Primary Care Provider U navailable Reason for Visit * Reason Onset Date Comments Appointment Related 11/03/2019 Encounter Details Date Type Department Care Team (Late st Contact Info) Description 11/03/2019 Telephone [facility] Cancer Center Hematology & Oncology - [facility] [address] [place], [place] [phone] Erin Barillas MD [address] [facility], Level 2 [place] [address] Appointment Related Social History Tobacco [...] [facility] Hematology & Oncology - [address] [phone] Erin Barillas MD [address] [place] [address] 2 [place] [phone] 05/18/2024 10:00 EST Office Visit [facility] Rheumatology & Immunology [address] [phone] Tod Perez NP [address] [place] [address], [facility] 5 [place] [phone] 06/03/2024 9:00 EST Ancillary Procedure [facility] Cardiology Clinic [address] [place] [phone] 06/03/2024 9:00 EST Office Visit [facility] Cardiology Clinic [address] [place] [address] Claire Lopez NP [address] [place] [address]-[address] [place] [phone] documented as of this encounter Visit Diagnoses Not on filedocumented in this encounter Care Teams Utility Worker Production Relationship Specialty Start Date End Date Dereck Schultz MD PCP - General 04/07/19 04/04/20 documented as of this encounter
--- OUTSIDE RECORDS SUMMARY | 2024-01-09 01:53 | XMS_ITS | Encounter Summary ---
Author Organization [facility] Address [address] [place] [address] Care Team Providers Care Motor Vehicle Escort Driver Name Role Phone Dereck Schultz MD Primary Care Provider U Layne Clemons MD Primary Care Provider [phone] Claire Lopez ABLE BODIED TANKERMAN Unavailable [phone] Tod Perez ABLE BODIED TANKERMAN Unavailable [phone] Vianey Bocanegra APRN Primary Care Provider [phone] Encounter Details Date Type Department Care Team (Late st Contact Info) Description 09/24/2019 Telephone [facility] Rheumatology & Immunology - [facility] [address] [place] [address] Claudia Salgado RN Social History Tobacco Use Types Packs/Day [...] encounter Miscellaneous Notes * Telephone Encounter - Claudia Salgado RN - 09/24/2019 1437 EDT Received PA request for prednisone. Called pharmacy and cost to pt would be $13 dollars. While speaking with pt asked about folic acid needing PA. Reported that we did not receive PA request forfolic acid and is reporting that they are being told it will be over $300. Discussed to use [facility] where it is priced from $3 dollars to $5 dollars or get OTC. If any issues will call our officeand will pay frankel for the prednisone. documented in this encounter Plan of Treatment Upcoming Encounters Date Type Department Care Team (Late st Contact Info) Description 04/09/2024 16:30 EDT Office Visit [facility] Hematology & Oncology - [address] [phone] Erin Barillas MD 111 [facility], [facility] 2 [place] [phone] 05/18/2024 10:00 EST Office Visit [facility] Rheumatology & Immunology - [address] 605[address] Tod Perez NP 111 [facility], [facility] 5 [place] [phone] 06/03/2024 9:00 EST Ancillary Procedure [facility] Cardiology Clinic [address] [place] [phone] 06/03/2024 9:00 EST Office Visit [facility] Cardiology Clinic [address] [place] [address] [phone] Claire Lopez NP 130 [facility] 21 [place] [address] documented as of this encounter Visit Diagnoses Not on filedocumented in this encounter Additional Health Concerns Infection Onset Date Last Indicated Resolved Time R/O COVID-19 12/28/2020 12/28/2020 01/02/2021 22:1 5 EDT documented as of this encounter Care Teams Motor Vehicle Escort Driver Relationship Specialty Start Date End Date Dereck Schultz MD PCP - General 04/07/19 04/04/20 Layne Cai MD [address] [place] [address] PCP - General 04/05/20 12/16/23 Vianey Bocanegra APRN 26 [facility] 185 [place] [address] PCP - General 12/17/23 Claire Lopez NP [address] [place] [phone] Cardiovascular Disease 11/22/20 Tod Perez NP 111 [facility] 5 [place] [address] Rheumatology 12/28/20 documented as of this encounter
--- OUTSIDE RECORDS SUMMARY | 2024-01-09 01:53 | XMS_ITS | Encounter Summary ---
Author Organization [facility] Address [address] [place] [address] Care Team Providers Care Shop Technician Name Role Phone Dereck Schultz MD Primary Care Provider U navailable Reason for Visit * Reason Onset Date Comments Medications Refill 11/04/2016 Encounter Details Date Type Department Care Team (Late st Contact Info) Description 11/04/2016 Refill [facility] Rheumatology & Immunology - [facility] [address] [place], [place] [phone] Sudhir Rosales MD [address] [phone] Medications Refill Social History Tobacco [...] visiting a doctor's office or shopping? No 09/24/2016 Cognitive Status Response Date of Assessm ent Because of a physical, menta l, or emotional condition, does this person have serious difficulty concentrating, remembering, or making decisions? No 09/24/2016 documented as of this encounter Ordered Prescriptions Prescription Sig Dispensed Refills Start Date End Da te methotrexate 2.5 mg tablet Take 8 Tabs by mouth once a week. 96 Tab 1 11/05/2016 04/22/2017 documented in this encounter Miscellaneous Notes * Telephone Encounter - Claudia Salgado RN - 11/05/2016 8246 EDTFrom: Praneeth Villanueva To: Sudhir Rosales MD Sent: 11/04/2016 9:11 EDT Subject: Medication Renewal Request Original authorizing provider: MD Praneeth Evans would like a refill of the following medications: methotrexate 2.5 mg tablet [Sudhir Rosales MD] [id number] Comment: documented in this encounter Plan of Treatment Upcoming Encounters Date Type Department Care Team (Late st Contact Info) Description 04/09/2024 16:30 EDT Office Visit [facility] Cancer Center Hematology & Oncology - [address] [phone] Erin Barillas MD 111 [facility] 2 [place] [phone] 05/18/2024 10:00 EST Office Visit [facility] Rheumatology & Immunology - [address] [address]56[address] Tod Perez NP 111 [facility], [facility] 5 [place] [phone] 06/03/2024 9:00 EST Ancillary Procedure [facility] Cardiology Clinic [address] [place] [address] 06/03/2024 9:00 EST Office Visit [facility] Cardiology Clinic [address] [place] [address] Claire Lopez NP 130 [facility]-A [address] [place] [phone] documented as of this encounter Visit Diagnoses Not on filedocumented in this encounter Discontinued Medications Medication Sig Discontinue Reason Start Date End Da te methotrexate 2.5 mg tablet Take 8 Tabs by mouth once a week. Reorder 08/12/2016 11/04/2016 documented as of this encounter Care Teams Shop Technician Relationship Specialty Start Date End Date Dereck Schultz MD PCP - General 10/19/08 02/12/17 documented as of this encounter
--- OUTSIDE RECORDS SUMMARY | 2024-01-09 01:53 | XMS_ITS | Encounter Summary ---
Author Organization [facility] Address [address] [place] [address] Care Team Providers Care Data Entry Name Role Phone Lawanda Parisi [facility] Primary Care Provider + Reason for Visit * Reason Comments Joint Pain neck and shoulders Medications Refill Labs Only Encounter Details Date Type Department Care Team (Latest Contact Info) Description 12/07/2018 14:40 EDT Office Visit [facility] Rheumatology & Immunology - [facility] [address] [place], [place] [phone] Sudhir Rosales MD [address] [phone] History of seronegative inflammatory arthritis (Primary Dx); Encounter for long-term (current) use of medications; Arthritis Discharge Disposition: Auto Discharge Social History Tobacco Use Types Packs/Day Years [...] visiting a doctor's office or shopping? No 11/24/2017 Cognitive Status Response Date of Assessm ent Because of a physical, menta l, or emotional condition, does this person have serious difficulty concentrating, remembering, or making decisions? No 11/24/2017 documented as of this encounter Discharge Diagnoses Diagnosis Z87.39 Personal history of other diseases of the musculoskeletal system and connective tissue-Z87.39[ICD-10-CM] Z79.899 Other termite control servicer (current) drug therapy-Z79.899[ICD-10-CM] M19.90 Unspecified osteoarthritis, unspecified site-M19.90[ICD-10-CM] documented in this encounter Patient Instructions * Patient Instructions* Sudhir Rosales MD, - 12/07/2018 14:40 EDT 1. Continue methotrexate [...] Da te methotrexate 2.5 mg tablet Take 4 Tabs by mouth once a week. 48 Tab 1 12/07/2018 09/23/2019 documented in this encounter Discharge Disposition Disposition Code Departure Means Destination Auto Discharge documented in this encounter Progress Notes * Jazmyne Welch - 12/07/2018 1440 EDT REVIEW [...] no, note change(s) below and update record * Sudhir Rosales MD, - 12/07/2018 1440 EDT DIVISION OF RHEUMATOLOGY [...] Refill ??? Labs Only SUBJECTIVE: Mr. Deon Villanueva is a 73 [...] of symptoms - Travelled to [place] including [facility]. Able to ambulate without difficulty. - [...] a week. (Patient taking differently: Take 10 mg by mouth once a week. ) metoprolol (LOPRESSOR) [...] MCP joints without tenderness, bogginess or erythema. No significant tenderness, swelling, effusions, erythema or [...] 05/10/2014 C3 135 05/10/2014 C4 27 05/10/2014 [facility]: 11/18/18: CBC with differential: CBC = [...] Status: Final result ?Visible to patient: Yes ([employer]) Next appt: 05/25/2018 at 11:40 in Rheumatology (Sudhir Rosales MD) Order: [id number] ?? 1yr ago Pathology Report: SURGICAL PATHOLOGY REPORT Reports generated via electronic interface contain original data; however they are lacking the format of the original report. Caution should be taken when reading/interpreting unformatted reports. Name: ? DEON VILLANUEVA ? Accession #: ? [id number] ? : ? 1945 (Age: 71) ??M ?Collect Date: ? 10/23/2016 ? Location: ? [facility] ? Receive Date: ? 10/24/2016 ? Provider: SHREYA LEA MD Copy to: [facility] ? Final Pathologic Diagnosis: A. ??GASTROESOPHAGEAL [...] Status: Final result ?Visible to patient: Yes ([employer]) Next appt: 05/25/2018 at 11:40 in Rheumatology (Sudhir Roslaes MD) Order: [id number] ?? 1yr ago Pathology Report: SURGICAL PATHOLOGY REPORT Reports generated via electronic interface contain original data; however they are lacking the format of the original report. Caution should be taken when reading/interpreting unformatted reports. Name: ? DEON VILLANUEVA ? Accession #: ? [id number] ? : ? 1945 (Age: 71) ??M ?Collect Date: ? 10/23/2016 ? Location: ? [facility] ? Receive Date: ? 10/24/2016 ? Provider: SHREYA LEA MD Copy to: [facility] ? Final Pathologic Diagnosis: A. ??GASTROESOPHAGEAL [...] Remission Low IMPRESSION / PLAN: Mr. Deon Villanueva is a 73 y.o. male with 1. Seronegative Inflammatory arthritis - Decreased methotrexate by 2.5 mg every 4 weeks until 10 mgorally weekly. Presents today on 10 mg orally weekly. A mild flare initially when reduced to 10 mg weekly then increased to 12.5 mg for 2-3 weeks with improvement of symptoms. [place] well then decreased back to 10 mg [...] laying supine. Able to participate in mowing the lawn and weed whacking without difficulty. Ibuprofen 800 mg orally as needed helps alleviate backpain but not the radicular symptoms. On examination [...] corticosteroids. If rash worsens he was instructed tocontact Dr. Farley's office. 6. Encounter for long-term [...] documentation was created using voice recognition software. Sports Analyst errors may be present. documented in this encounter Plan of Treatment Upcoming Encounters Date Type Department Care Team (Late st Contact Info) Description 04/09/2024 16:30 EDT [facility] Hematology & Oncology - [address] [address] Erin Barillas MD 111 [facility], Level 2 [place] [phone] 05/18/2024 10:00 EST Office Visit [facility] Rheumatology & Immunology - [address] [phone] Tod Perez NP 111 [facility], Level 5 [place] [phone] 06/03/2024 9:00 EST Ancillary Procedure [facility] Cardiology Clinic [address] [place] [address] 06/03/2024 9:00 EST Office Visit [facility] Cardiology Clinic [address] [place] [address] Claire Lopez NP 130 [facility] [address]OB-A [address] [place] [phone] documented as of this encounter Visit Diagnoses Diagnosis History of seronegative inflammatory arthritis- Primary Encounter for long-term (current) use of medications Encounter for long-term (current) use of other medications Arthritis Arthropathy, unspecified, site unspecified documented in this encounter Discontinued Medications Medication Sig Discontinue Reason Start Date End Da te aspirin chewable 81 mg tablet Take 81 mg by mouth daily. 12/07/2018 methotrexate 2.5 mg tablet Take 6 Tabs by mouth once a week. Reorder 07/07/2018 12/07/2018 documented as of this encounter Care Teams Data Entry Relationship Specialty Start Date End Date Lawanda Parisi, [employer] [address] [place] [address] PCP - General 11/24/17 04/06/19 documented as of this encounter
--- OUTSIDE RECORDS SUMMARY | 2024-01-09 01:53 | XMS_ITS | Encounter Summary ---
Author Organization [facility] Address [address] [place] [address] Care Team Providers Care Semiconductors Wafer Breaker Name Role Phone Dereck Schultz MD Primary Care Provider U navailable Reason for Visit * Reason Onset Date Comments Labs Only 07/09/2019 Encounter Details Date Type Department Care Team (Late st Contact Info) Description 07/09/2019 Orders Only [facility] Rheumatology & Immunology - [facility] [address] [place], [place] [phone] Sudhir Rosales MD [address] [phone] Encounter for long-term (current) use of medications (Primary Dx); Inflammation around joint Social History Tobacco Use [...] No 11/24/2017 Cognitive Status Response Date of Assess ent Because of a physical, menta l, or emotional condition, does this person have serious difficulty concentrating, remembering, or making decisions? No 11/24/2017 documented as of this encounter Progress Notes * Jazmyne Welch MA - 07/09/2019 0822 EST Standing orders [facility] [id number] documented in this encounter Plan of Treatment Upcoming Encounters Date Type Department Care Team (Late st Contact Info) Description 04/09/2024 16:30 EDT Office Visit [facility] Hematology & Oncology [address] [phone] Erin Barillas MD [address] [place] [address] 2 [place] [phone] 05/18/2024 10:00 EST Office Visit [facility] Rheumatology & Immunology [address] [phone] Tod Perez NP [address] [place] [address], [facility] 5 [place] [phone] 06/03/2024 9:00 EST Ancillary Procedure [facility] [address] [place] [phone] 06/03/2024 9:00 EST Office Visit [facility] [address] [place] [phone] Claire Lopez NP [address] [place] [address] [facility] [address] [phone] documented as of this encounter Visit Diagnoses Diagnosis Encounter for long-term (current) use of medications- Primary Encounter for long-term (current) use of other medications Inflammation around joint Enthesopathy of unspecified site documented in this encounter Care Teams Semiconductors Wafer Breaker Relationship Specialty Start Date End Date Dereck Schultz MD PCP - General 04/07/19 04/04/20 documented as of this encounter
--- OUTSIDE RECORDS SUMMARY | 2024-01-09 01:53 | XMS_ITS | Encounter Summary ---
Author Organization [facility] Address [address] [place] [address] Care Team Providers Care Lathe Set Up Operator Name Role Phone Dereck Schultz MD Primary Care Provider U navailable Reason for Visit * (Routine) - Closed Specialty Diagnoses / Procedures Referred By Marissa carney Referred To Contact Diagnoses Pacemaker Procedures CARDIAC IMPLANT CHECK - IN CLINIC Claire Lopez NP [address] [facility] [address] [place] [address] Referral ID Status Reason Start Date Expiration Date Visits Re quested Visits Authorized [id number] Closed 05/11/2019 1 1 Encounter Details Date Type Department Care Team (Late st Contact Info) Description 11/18/2019 15:30 EDT Ancillary Procedure [facility] [address] [place] [address] Pacemaker Social History Tobacco Use [...] [facility] Hematology & Oncology [address] [phone] Erin Barillas MD [address] [place] [address], [facility] 2 [place] [phone] 05/18/2024 10:[address] [facility] Rheumatology & Immunology [address] [phone] Tod Perez NP [address] [place] [address], [facility] 5 [place] [phone] 06/03/2024 9:00 EST Ancillary Procedure [facility] Cardiology Clinic [address] [place] [address] [phone] 06/03/2024 9:00 EST Office Visit [facility] Cardiology Clinic [address] [place] [address] [phone] Claire Lopez NP [address] [place] [address] [address] [place] [phone] documented as of this encounter Procedures Procedure Name Priority Date/Time Associated Diagnosis Comments CARDIAC IMPLANT CHECK - IN CLINIC Routine 11/22/2019 11:05 EDT Pacemaker documented in this encounter Results * CARDIAC IMPLANT CHECK - IN CLINIC - PACEMAKER SINGLE CHAMBER W/ PROG (11/22/2019 11:05 EDT) Anatomical Region Laterality Modality Device Narrative 11/22/2019 11:05 EDT Refer to same day OV for full details Claire Lopez NP CV IMPLANTABLE CARDI AC DEVICE documented in this encounter Visit Diagnoses Diagnosis Pacemaker Cardiac pacemaker in situ documented in this encounter Care Teams Lathe Set Up Operator Relationship Specialty Start Date End Date Dereck Schultz MD PCP - General 04/07/19 04/04/20 documented as of this encounter
--- OUTSIDE RECORDS SUMMARY | 2024-01-09 01:53 | XMS_ITS | Encounter Summary ---
Author Organization [facility] Address [address] [place] [address] Care Team Providers Care Customer Assistant Name Role Phone Dereck Schultz MD Primary Care Provider U navailable Reason for Visit * Reason Onset Date Comments Coordination Of Care 11/26/2019 Encounter Details Date Type Department Care Team (Late st Contact Info) Description 11/26/2019 Telephone [facility] Hematology & Oncology - Main [place] [address] [place] [address] Chikis Ji, RN Coordination Of Care Social [...] Encounter - Chikis Ji RN - 11/26/[address] Barillas, Praneeth needs weekly [...] am working on coordinating the two follow up appointments and will reach out to him next week. Will follow up with Sheregina [address] Barillas availability and contact Praneeth once the two appointments are coordinated. documented in this encounter Plan of Treatment Upcoming Encounters Date Type Department Care Team (Late st Contact Info) Description 04/09/2024 16:30 EDT Office Visit [facility] Hematology & Oncology - [address] [phone] Erin Barillas MD [address] [place] [address], [facility] 2 [place] [phone] 05/18/2024 10:00 EST Office Visit [facility] Rheumatology & Immunology - [address] 354911 Tod Perez NP 111 [facility], [facility] 5 [place] [phone] 06/03/2024 9:[address] [facility] Cardiology Clinic [address] [place] [address] [phone] 06/03/2024 9:[address] [facility] Card[facility] [address] [place] [address] [phone] Claire Lopez, FESTUS [address] [facility] [address] [place] [address] documented as of this encounter Results * (ABNORMAL) COMPREHENSIVE METABOLIC PANEL (CMP) (12/06/2019 9:26 EDT) Sodium 138 136 - 145 mEq/L 12/06/2019 9:58 [facility] Potassium 4.9 3.5 - 5.0 mEq/L 12/06/2019 9:58 [facility] Chloride 102 96 - 110 mEq/L 12/06/2019 9:58 [facility] CO2 Total 30 22 - 32 mEq/L 12/06/2019 9:58 [facility] Glucose 111(H) 70 - 100 mg/dL 12/06/2019 9:58 [facility] BUN 24 10 - 26 mg/dL 12/06/2019 9:58 [facility] Creatinine 1.09 0.66 - 1.25 mg/dL 12/06/2019 9:58 [facility] eGFR 66 >60 mL/min/1.7 3m2 12/06/2019 9:58 [facility] Comment:eGFR calculated in g CKD-EPI equation for non- Americans. Multiply eGFR by 1.16 for patients. Total Protein 7.1 6.3 - 8.2 g/dL 12/06/2019 9:58 [facility] Albumin 4.3 3.4 - 4.9 g/dL 12/06/2019 9:58 [facility] Alkaline Phosphatase 68 38 - 126 U/L 12/06/2019 9:58 [facility] AST 26 15 - 46 U/L 12/06/2019 9:58 [facility] ALT 16 <50 U/L 12/06/2019 9:58 [facility] Bilirubin, Total <0.5 <1.4 mg/dL 12/06/19 20 9:58 [facility] Calcium 9.6 8.5 - 10.5 mg/dL 12/06/2019 9:58 EDT [facility] Calculated Calcium 9.4 8.5 - 10.5 mg/dL 12/06/2019 9:58 EDT [facility] Blood VENOUS BLOOD / Unknown Venipuncture / Unknown 12/06/2019 9:26 EDT 12/06/2019 9:31 EDT Erin Barillas MD CHEMISTRY & BLOOD GA S ORDERABLES [facility] [address] [place] [address] documented in this encounter Visit Diagnoses Diagnosis Polycythemia vera (HCC-CMS)- Primary documented in this encounter Care Teams Customer Assistant Relationship Specialty Start Date End Date Dereck Schultz MD PCP - General 04/07/19 04/04/20 documented as of this encounter
--- OUTSIDE RECORDS SUMMARY | 2024-01-09 01:53 | XMS_ITS | Encounter Summary ---
Author Organization [facility] Address [address] [place] [address] Care Team Providers Care Harness Builder Name Role Phone Dereck Schultz MD Primary Care Provider U morgan Encounter Details Date Type Department Care Team (Late st Contact Info) Description 09/30/2019 Documentation Visit [facility] Hematology & Oncology - Main [place] [address] [place] [address] Lius Felipe Parry RN [address] [place] [address] Social History Tobacco Use Types Packs/Day Years [...] as of this encounter Progress Notes * Luis Felipe Parry RN - 09/30/2019 0916 EDT Pt referred for long standing polycythemia. 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 Pt needs MPN panel drawn by PCP and then apt in hematology in October when he returns from [place]. PCPwill be notified. documented in this encounter Plan of Treatment Upcoming Encounters Date Type Department Care Team (Late st Contact Info) Description 04/09/2024 16:30 EDT Office Visit [facility] Hematology & Oncology - [address] [phone] Erin Barillas MD [address] [place] [address] 2 [place] [phone] 05/18/2024 10:00 EST Office Visit [facility] Rheumatology & Immunology - [address] 469691 Tod Perez NP [address] [place] [address], [facility] 5 [place] [phone] 06/03/2024 9:00 EST Ancillary Procedure [facility] Cardiology Clinic [address] [place] [address] [phone] 06/03/2024 9:00 EST Office Visit [facility] Cardiology Clinic [address] [place] [address] [phone] Claire Lopez NP [address] [place] [address] [address] [place] [address] documented as of this encounter Visit Diagnoses Not on filedocumented in this encounter Care Teams Harness Builder Relationship Specialty Start Date End Date Dereck Schultz MD PCP - General 04/07/19 04/04/20 documented as of this encounter
--- OUTSIDE RECORDS SUMMARY | 2024-01-09 01:53 | XMS_ITS | Encounter Summary ---
Author Organization Health system Address [address] [place] [address] Care Team Providers Care Manager Telemarketing Name Role Phone AlexanderLawanda ayala [facility] Primary Care Provider + Encounter Details Date Type Department Care Team (Late st Contact Info) Description 07/17/2018 Orders Only [facility] Rheumatology & Immunology - [facility] [address] [place] [address] Zari Mccabe RN History of seronegative inflammatory arthritis (Primary Dx); [...] [facility] Hematology & Oncology [address] 590201 Erin Barillas MD 111 [facility], [facility] 2 [place] [phone] 05/18/2024 10:00 EST Office Visit [facility] Rheumatology & Immunology [address] [phone] Tod Perez NP 111 [facility], [facility] 5 [place] [phone] 06/03/2024 9:00 EST Ancillary Procedure [facility] Cardiology Clinic [address] [place] [address] 06/03/2024 9:00 EST Office Visit [facility] Cardiology Clinic [address] [place] [address] Claire Lopez NP [address] [place] [address]-[address] [place] [phone] documented as of this encounter Visit Diagnoses Diagnosis History of seronegative inflammatory arthritis- Primary Encounter for long-term (current) use of medications Encounter for long-term (current) use of other medications documented in this encounter Care Teams Manager Telemarketing Relationship Specialty Start Date End Date Lawanda Parisi, [employer] [address] [facility] [address] PCP - General 11/24/17 04/06/19 documented as of this encounter
--- OUTSIDE RECORDS SUMMARY | 2024-01-09 01:53 | XMS_ITS | Encounter Summary ---
Author Organization [facility] Address [address] [place] [address] Care Team Providers Care Senior Python Developer Name Role Phone Rebecca Pickens [employer] Primary Care Provider [phone] Reason for Visit * Reason Comments Joint Pain neck,arms,hands, Rash legs Encounter Details Date Type Department Care Team (Latest Contact Info) Description 05/28/2017 15:00 EST Office Visit [facility] Rheumatology & Immunology - [facility] [address] [place] [address] Sudhir Rosales MD [address] [place] [phone] History of seronegative inflammatory arthritis (Primary Dx); Taking multiple medications for chronic disease; Skin rash Discharge Disposition: Auto Discharge Social History Tobacco [...] visiting a doctor's office or shopping? No 05/28/2017 Cognitive Status Response Date of Assessm ent Because of a physical, menta l, or emotional condition, does this person have serious difficulty concentrating, remembering, or making decisions? No 05/28/2017 documented as of this encounter Discharge Diagnoses Diagnosis Z87.39 Personal history of other diseases of the musculoskeletal system and connective tissue-Z87.39[ICD-10-CM] R69 Illness, unspecified-R69[ICD-10-CM] R21 Rash and other nonspecific skin eruption-R21[ICD-10-CM] documented in this encounter Patient Instructions * Patient Instructions* Sudhir Rosales MD - 05/28/2017 15:00 EST 1. [...] 4% (patches or cream)/Salonpas lidocaine 4% patches orcapzasin cream or icy/hot or biofreeze up to 4x/day to affected muscles and joints. 6. Schedule an appointment with dermatology for a skin check. 7. Recheck blood work every 3-4 months 8. Follow up in 6 months documented in this encounter Discharge Disposition Disposition Code Departure Means Destination Auto Discharge documented in this encounter Progress Notes * Sudhir Rosales MD - 05/28/2017 1500 EST DIVISION OF [...] he was instructed tocontact Dr. Farley's office. 4. Encounter for long-term [...] 4% (patches or cream)/Salonpas lidocaine 4% patches orcapzasin cream or icy/hot or biofreeze up to [...] documentation was created using voice recognition software. Shirring Machine Operator Automatic errors may be present. * Svetlana Stringer - 05/28/2017 1500 EST REVIEW [...] x Hand/Foot color change in cold X documented in this encounter Plan of Treatment Upcoming Encounters Date Type Department Care Team (Late st Contact Info) Description 04/09/2024 16:30 EDT Office Visit [facility] Hematology & Oncology - [address] [phone] Erin Barillas MD 111 [facility], [facility] 2 [place] [phone] 05/18/2024 10:00 EST Office Visit [facility] Rheumatology & Immunology - [address] [address] Tod Perez NP 111 [facility], [facility] 5 [place] [phone] 06/03/2024 9:00 EST Ancillary Procedure [facility] Cardiology Clinic [address] [place] [address] 06/03/2024 9:00 EST Office Visit [facility] Cardiology Clinic [address] [place] [address] [phone] Claire Lopez NP [address] [place] [address] [address] [place] [address] documented as of this encounter Visit Diagnoses Diagnosis History of seronegative inflammatory arthritis- Primary Taking multiple medications for chronic disease Other unknown and unspecified cause of morbidity or mortality Skin rash Rash and other nonspecific skin eruption documented in this encounter Historical Medications * This list may reflect changes made after this encounter. Medication Sig Dispensed Refills Start Date End Date triamcinolone (KENALOG) 0.1 % creamIndications:History of seronegative inflammatory arthritis,Taking multiple medications for chronic disease,Skin rash Apply topically daily. 05/10/2019 added in this encounter Care Teams Senior Python Developer Relationship Specialty Start Date End Date Rebecca Pickens NP PCP - General 02/13/17 11/23/17 documented as of this encounter
--- OUTSIDE RECORDS SUMMARY | 2024-01-09 01:53 | XMS_ITS | Encounter Summary ---
Author Organization [facility] Address [address] [place] [address] Care Team Providers Care Plate Sensitizer Name Role Phone Dereck Schultz MD Primary Care Provider Anselmo mora Encounter Details Date Type Department Care Team (Latest Contact Info) Description 10/23/2016 9:25 EDT - 10/23/2016 23:59 EDT Hospital Encounter [address] [address] Unknown, Provider, Discharge Disposition: Home or Self Care Social [...] No 09/24/2016 documented as of this encounter Medications at Time of Discharge Medication Sig Dispensed Refills Start Date End Date aspirin chewable 81 mg tablet Take 81 mg by mouth daily. 12/07/2018 finasteride (PROSCAR) 5 mg tablet Take 5 mg by mouth daily. 10/24/2022 folic acid (FOLVITE) 1 mg tablet Take 1 Tab by mouth daily. 90 Tab 3 09/09/2016 09/03/2017 ibuprofen (MOTRIN) 200 mg tablet Take 200 mg by mouth every 6 hours as needed for Pain. 12/15/2020 LACTOBACILLUS ACIDOPHILUS (PROBIOTIC ORAL) Take by mouth daily 04/17 methotrexate 2.5 mg tablet Take 8 Tabs by mouth once a week. 96 Tab 08/12/2016 11/04/2016 metoprolol (LOPRESSOR) 25 mg tablet Take 25 mg by mouth daily. 11/17/2019 omeprazole (PRILOSEC) 20 mg capsule Take 40 mg by mouth daily. 05/11/2019 RANITIDINE HCL ORAL Take 300 mg by mouth daily. 11/17/2019 simvastatin (ZOCOR) 40 mg tablet Take 40 mg by mouth every evening. 11/09/2020 documented as of this encounter Discharge Disposition Disposition Code Departure Means Destination Home or Self Snf documented in this encounter Plan of Treatment Upcoming Encounters Date Type Department Care Team (Late st Contact Info) Description 04/09/2024 16:30 EDT Office Visit [facility] Hematology & Oncology - [address] [phone] Erin Barillas MD [address] [facility], [facility] 2 [place] [phone] 05/18/2024 10:00 EST Office Visit [facility] Rheumatology & Immunology - [address] [phone] Tod Perez NP 111 [facility], [facility] 5 [place] [phone] 06/03/2024 9:00 EST Ancillary Procedure [facility] Cardiology Clinic [address] [place], [place] [phone] 06/03/2024 9:00 EST Office Visit [facility] Cardiology Clinic [address] [place], [place] [phone] Claire Lopez NP [address] [place] [address] [address] [place] [address] documented as of this encounter Visit Diagnoses Not on filedocumented in this encounter Care Teams Plate Sensitizer Relationship Specialty Start Date End Date Dereck Schultz MD PCP - General 10/19/08 02/12/17 documented as of this encounter
--- OUTSIDE RECORDS SUMMARY | 2024-01-09 01:53 | XMS_ITS | Encounter Summary ---
Author Organization [facility] Address [address] [place] [address] Care Team Providers Care Hot Plate Plywood Press Offbearer Name Role Phone Lawanda Parisi [facility] Primary Care Provider + Reason for Visit * Reason Onset Date Comments Medications Refill 02/24/2018 Encounter Details Date Type Department Care Team (Late st Contact Info) Description 02/24/2018 Refill [facility] Rheumatology & Immunology - [facility] [address] [place] [address] Sudhir Rosales MD [address] [place] [phone] Medications Refill Social History Tobacco Use [...] Da te folic acid (FOLVITE) 1 mg tablet Take 1 Tab by mouth daily. 90 Tab 1 02/24/2018 09/06/2018 documented in this encounter Miscellaneous Notes * Telephone Encounter - Layne Hatfield - 02/24/2018 1046 EDT Medication(s) Requested Folic Acid 1 mg tablet [facility] [place] [facility]9 Next Visit Date 05/25/2018 Out of Medication? No Layne Hatfield 02/24/2018 10:48 documented in this encounter Plan of Treatment Upcoming Encounters Date Type Department Care Team (Late st Contact Info) Description 04/09/2024 16:30 EDT Office Visit [facility] Hematology & Oncology - [address] [phone] Erin Barillas MD [address] [place] [address], [facility] 2 [place] [phone] 05/18/2024 10:00 EST Office Visit [facility] Rheumatology & Immunology - [address] 408521 Tod Perez NP [address] [place] [address], [facility] 5 [place] [phone] 06/03/2024 9:00 EST Ancillary Procedure [facility] Cardiology Clinic [address] [place] [address] 06/03/2024 9:00 EST Office Visit [facility] Cardiology Clinic [address] [place] [address] [phone] Claire Lopez NP [address] [place] [address]-[facility] 2-[address] [place] [address] documented as of this encounter Visit Diagnoses Not on filedocumented in this encounter Discontinued Medications Medication Sig Discontinue Reason Start Date End Da te folic acid (FOLVITE) 1 mg tablet Take 1 Tab by mouth daily. Reorder 09/04/2017 02/24/2018 documented as of this encounter Care Teams Hot Plate Plywood Press Offbearer Relationship Specialty Start Date End Date Lawanda Parisi, HYDRAULIC SPINNER- [address] [facility] [address] PCP - General 11/24/17 04/06/19 documented as of this encounter
--- OUTSIDE RECORDS SUMMARY | 2024-01-09 01:53 | XMS_ITS | Encounter Summary ---
Author Organization [facility] Address [address] [place] [address] Care Team Providers Care Recreation Leader Name Role Phone Dereck Schultz MD Primary Care Provider U vinnyailpiero Encounter Details Date Type Department Care Team (Late st Contact Info) Description 12/06/2019 11:40 EDT - 12/06/2019 23:59 EDT Hospital Encounter [facility] [address] [place] [address] Erin Barillas MD 111 [facility] 2 [place] [address] Discharge Disposition: Home or Self Care Social [...] this encounter Discharge Instructions * Discharge Instructions* Conchis Centeno RN - 12/06/2019 12:42 EDT After having a therapeutic phlebotomy, your body will require time to adjust to the loss of blood. You may feel mildly light-headed or dizzy and may need to lie down for a few minutes. Please make sure to increase your fluid intake about 2 liters per day with water or juices for the next two to three days and avoid alcohol. Also, you should avoid strenuous activity for the next six to eight hours. You should keep your arm dry for a few hours. You may develop a bruise at the site where the needlewas placed. This is normal and will disappear in a few days. You may wish to use a warm compress tohelp this. There should be no bleeding at [...] Code Departure Means Destination Home or Self Fdc documented in this encounter Progress Notes * Conchis Centeno RN - 12/06/2019 1158 EDT Patient Praneeth Villanueva admitted to [address] for Therapeutic Phlebotomy related to D45. Patient identification verified verbally and on patient armband. Therapeutic phlebotomy performed per protocol. Peripheral IV placed. Blood collection bag attached and unclamped. Tourniquet released after blood began to flow. 500 ml blood withdrawn over 25 minutes. Patient encouraged to increase po fluids before, during andafter Therapeutic Phlebotomy procedure. NS bolus given 250 ml post infusion. Patient tolerated procedure. Pressure dressing applied. Post Therapeutic phlebotomy instructions reviewed with patient. No heavy lifting with the arm the IV was placed in for the next 6-8 hours to prevent bleeding. Increase fluids over next two days. Dressing clean dry and intact upon discharge. CONCHIS CENTENO RN 12/06/2019 12:29 documented in this encounter Plan of Treatment Upcoming Encounters Date Type Department Care Team (Late st Contact Info) Description 04/09/2024 16:30 EDT Office Visit [facility] Hematology & Oncology - [address] [phone] Erin Barillas MD [address] [place] [address] 2 [place] [phone] 05/18/2024 10:00 EST Office Visit [facility] Rheumatology & Immunology - [address] [phone] Tod Perez NP [address] [place] [address] 5 [place] [phone] 06/03/2024 9:00 EST Ancillary Procedure [facility] Cardiology Clinic [address] [place] [address] [phone] 06/03/2024 9:00 EST Office Visit [facility] Cardiology Clinic [address] [place] [address] [phone] Claire Lopez NP [address] [place] [address] [address] [place] [phone] documented as of this encounter Visit Diagnoses Not on filedocumented in this encounter Administered Medications Inactive Administered Medications - up to 3 most recent administrations Medication Order MAR Action Action Date Dose Rate Site sodium chloride 0.9 % BOLUS 250 mL 250 mL, intravenous, NOW X1, 1 dose, On 12/06/19 at 1200, Routine New Bag 12/06/2019 12:24 EDT 250 mL documented in this encounter Orders Medications Ordered That Ramon ht Not Have Been Administered Count Last Ordered Date First Ordered Date sodium chloride 0.9 % BOLUS 250 mL 1 2019 documented in this encounter Care Teams Recreation Leader Relationship Specialty Start Date End Date Dreeck Schultz MD PCP - General 04/07/19 04/04/20 documented as of this encounter
--- OUTSIDE RECORDS SUMMARY | 2024-01-09 01:53 | XMS_ITS | Encounter Summary ---
Author Organization [facility] Address [address] [place] [address] Care Team Providers Care Supervisor Type Bar And Segment Name Role Phone Dereck Schultz MD Primary Care Provider U morgan Encounter Details Date Type Department Care Team (Late st Contact Info) Description 11/18/[address] [facility] Cardiology Clinic [address] [place], [place] [phone] Claire Lopez NP [address] [facility] [address] [place] [address] Pacemaker (Primary Dx) Social History Tobacco Use [...] [facility] Hematology & Oncology - [address] [phone] Erin Barillas MD [address] [place] [address] 2 [place] [phone] 05/18/2024 10:[address] [facility] Rheumatology & Immunology - [address] [phone] Tod Perez NP [address] [place] [address], [facility] [address] [place] [phone] 06/03/2024 9:00 EST Ancillary Procedure [facility] Cardiology Clinic [address] [place] [phone] 06/03/2024 9:00 EST Office Visit [facility] Cardiology Clinic [address] [place] [phone] Claire Lopez NP [address] [place] [address] [address] [place] [phone] documented as of this encounter Visit Diagnoses Diagnosis Pacemaker- Primary Cardiac pacemaker in situ documented in this encounter Orders Imaging Orders Without Results Count Last Order ed Date First Ordered Date CARDIAC IMPLANT CHECK - IN CLINIC 1 020 documented in this encounter Care Teams Supervisor Type Bar And Segment Relationship Specialty Start Date End Date Dereck Schultz MD PCP - General 04/07/19 04/04/20 documented as of this encounter
--- OUTSIDE RECORDS SUMMARY | 2024-01-09 01:53 | XMS_ITS | Encounter Summary ---
Author Organization [facility] Address [address] [place] [address] Care Team Providers Care Senior Qc Technician Name Role Phone Dereck Schultz MD Primary Care Provider U navailable Reason for Visit * Reason Comments Back Pain Telemedicine Video Visit Joint Pain left hand pain/ feel s like a shocking pain/ swelling Encounter Details Date Type Department Care Team (Late st Contact Info) Description 12/02/2019 11:00 EDT Telemedicine [facility] Rheumatology & Immunology - [facility] [address] [place], [place] [phone] Tod Perez, BREAST TRIMMER 111 [facility], Level [address] [place] [phone] Inflammation around joint (Primary Dx); Encounter for long-term (current) use [...] * Patient Instructions* Tod Perez APRN - 12/02/2019 11:00 EDT 1. [...] would prefer to avoid prednisone if possible as it increases your risk of infection 6. F/u 3-4 months could be by zoom documented in this encounter Ordered Prescriptions Prescription Sig Dispensed Refills Start Date End Da te methotrexate 2.5 mg tabletIndications:Inflamma tion around joint,Encounter for long-term (current) use of medications Take 6 Tabs by mouth once a week. 72 Tab 1 12/02/2019 03/02/2020 documented in this encounter Progress Notes * Tod Perez APRN - 12/02/2019 1100 EDT [...] to improvement of symptoms - Travelled to [place] including [facility]. Able to ambulate without difficulty. - AM [...] hand swelling. Was ester 5th meng in [place] at that time. new dx around 04/2019 of polycythemia: elevated RBC and hemoglobin Had repeat labs at [facility] 05/2019 PCP was suppose to set up NPV with hematology at [facility] - they have not heard from [...] Status: Final result ?Visible to patient: Yes (Viewb[employer] Online) Next appt: 05/25/2018 at 11:40 in Rheumatology (Sudhir Rosales MD) Order: [id number] ? 1yr ago ?? Pathology Report: SURGICAL PATHOLOGY REPORT Reports generated via electronic interface contain original data; however they are lacking the format of the original report. Caution should be taken when reading/interpreting unformatted reports. Name: ? ROBEL DEON Jeong ? Accession #: ? [id number] ? : ? 1945 (Age: 71) ??M [...] Status: Final result ?Visible to patient: Yes (AOBiome) Next appt: 05/25/2018 at 11:40 in Rheumatology (Sudhir Rosales MD) Order: [id number] ? 1yr ago ?? Pathology Report: SURGICAL PATHOLOGY REPORT Reports generated via electronic interface contain original data; however they are lacking the format of the original report. Caution should be taken when reading/interpreting unformatted reports. Name: ? DEON VILLANUEVA ? Accession #: ? [id number] ? : ? 1945 (Age: 71) ??M ?Collect Date: ? 10/23/2016 ? Location: ? [facility] ? Receive Date: ? 10/24/2016 ? Provider: SHREYA LEA MD Copy to: MINDY SZYMANSKI PRODUCT COORDINATOR ? Final Pathologic Diagnosis: A. ??GASTROESOPHAGEAL JUNCITON, [...] to 15mg po weekly. 2. Labs at [facility] in October 2019 - I have called for these will check labs 1 month for MTX increase then every 3-4 months 3. Active right sided sciatica, not sure if improved with prednisone burst from PCP, hx of left sided sciatic 1 year ago, resolved with PT. Encouraged him to restart those exercises and will mail himsome additional ones. Instructed to pick which exercises work for his body. - intermittently active, saw PT for left side occasionally home PT exercises, does not think they are helping, declines PT 4. New dx of polycythemia - managed by PCP was suppose to see NPV with hematology at [facility]. pt is not yet taking hydroxyurea until [...] would prefer to avoid prednisone if possible as it increases your risk of infection 6. F/u [...] if needed. Tod Perez APRN 12/02/2019 12:17 * Jazmyne Welch MA - 12/02/2019 1100 EDT [...] note change(s) below and update record y documented in this encounter Plan of Treatment Upcoming Encounters Date Type Department Care Team (Late st Contact Info) Description 04/09/2024 16:30 EDT Office Visit [facility] Hematology & Oncology - [address] [phone] Erin Barillas MD [address] [place] [address] 2 [place] [phone] 05/18/2024 10:00 EST Office Visit [facility] Rheumatology & Immunology - [address] [phone] Tod Perez NP [address] [place] [address], [facility] [address] [place] [phone] 06/03/2024 9:00 EST Ancillary Procedure [facility] Cardiology Clinic [address] [place] [phone] 06/03/2024 9:00 EST Office Visit [facility] Cardiology Clinic [address] [place] [address] Claire Lopez NP [address] [place] [address]-[address] [place] [phone] documented as of this encounter Visit Diagnoses Diagnosis Inflammation around joint- Primary Enthesopathy of unspecified site Encounter for long-term (current) use of medications Encounter for long-term (current) use of other medications documented in this encounter Discontinued Medications Medication Sig Discontinue Reason Start Date End Da te ranitidine (ZANTAC) 300 mg tablet TK 1 T PO D Therapy completed 08/23/2019 12/02/2019 methotrexate 2.5 mg tabletIndications:Inflamm ation around joint,Encounter for long-term (current) use of medications Take 4 Tabs by mouth once a week. Reorder 09/23/2019 12/02/2019 documented as of this encounter Care Teams Senior Qc Technician Relationship Specialty Start Date End Date Dereck Schultz MD PCP - General 04/07/19 04/04/20 documented as of this encounter
--- OUTSIDE RECORDS SUMMARY | 2024-01-09 01:53 | XMS_ITS | Encounter Summary ---
Author Organization [facility] Address [address] [place] [address] Care Team Providers Care Hospitality Director Name Role Phone Dereck Schultz MD Primary Care Provider U navailable Reason for Referral * Laboratory Services (Routine/Next Available) - New Request Specialty Diagnoses / Procedures Referred By Marissa carney Referred To Contact Diagnoses Inflammation around joint Encounter for long-term (current) use of medications Procedures COMPREHENSIVE METABOLIC PANEL (CMP) Tod Perez NP [address] [phone] Referral ID Status Reason Start Date Expiration Date V isits Requested Visits Authorized [id number] New Request 09/23/2019 1 1 * Laboratory Services (Routine/Next Available) - New Request Specialty Diagnoses / Procedures Referred By Marissa carney Referred To Contact Diagnoses Encounter for long-term (current) use of medications Inflammation around joint Procedures COMPLETE BLOOD COUNT AND DIFFERENTIAL Tod Perez NP [address] [phone] Referral ID Status Reason Start Date Expiration Date V isits Requested Visits Authorized [id number] New Request 09/23/2019 1 1 Reason for Visit * Reason Comments Telemedicine Phone Call Hand Problem given prednisone [facility] for hand problem/ twice really helped Back Pain radiateds down right side Medication Management stopped meds in Ja n/ per Dr Rosales Encounter Details Date Type Department Care Team (Late st Contact Info) Description 09/23/2019 14:00 EDT Telemedicine [facility] Rheumatology & Immunology - [address] [phone] Tod Perez, HOT PUNCH PRESS OPERATOR 111 [facility], [address] [place] [address] Inflammation around joint (Primary Dx); Encounter for [...] * Patient Instructions* Tod Perez, BATSHEVA - 09/23/2019 14:00 EDT Images [...] Many Vaccine Information Statements are available in Lithuanian and other languages. See www.immunize.org/vis [place] de [...] Disease Control and Prevention (CDC): - Call (6-142-RKF-INFO) or - Visit CDC???s website at www.cdc.gov/vaccines Vaccine Information Statement Recombinant Zoster Vaccine 07/28/2017 Department of Health and Human Services Centers for Disease Control and Prevention Office Use Only documented in this encounter Ordered Prescriptions Prescription Sig Dispensed Refills Start Date End Da te predniSONE (DELTASONE) 5 mg tablet 20mg (4 tabs) x 5 days orally, decrease by 5 mg (1 tab) orally weekly 62 Tab 09/23/2019 11/18/2019 folic acid (FOLVITE) 1 mg tabletIndications:Inflamm ation around joint,Encounter for long-term (current) use of medications Take 1 Tab by mouth daily. 90 Tab 3 09/23/2019 2020 methotrexate 2.5 mg tabletIndications:Inflamm ation around joint,Encounter for long-term (current) use of medications Take 4 Tabs by mouth once a week. 48 Tab 1 09/23/2019 12/02/2019 documented in this encounter Progress Notes * Jazmyne Welch MA - 09/23/2019 1400 EDT [...] note change(s) below and update record * Tod Perez APRN - 09/23/2019 1400 EDT Images from the [...] to improvement of symptoms - Travelled to [place] including [facility]. Able to ambulate without difficulty. - [...] hand swelling. Was ester 5th meng in [place] at that time. new dx around 04/2019 of polycythemia: elevated RBC and hemoglobin Had repeat labs at [facility] 05/2019 PCP was suppose to set up NPV with hematology at [facility] - they have not heard from [...] 135 05/10/2014 ?? C4 27 05/10/2014 ?? [facility]: 11/18/18: CBC with differential: CBC = [...] Status: Final result ?Visible to patient: Yes (Toldo) Next appt: 05/25/2018 at 11:40 in Rheumatology (Sudhir Rosales MD) Order: [id number] ? 1yr ago ?? Pathology Report: SURGICAL PATHOLOGY REPORT Reports generated via electronic interface contain original data; however they are lacking the format of the original report. Caution should be taken when reading/interpreting unformatted reports. Name: ? DEON VILLANUEVA ? Accession #: ? [id number] ? : ? 1945 (Age: 71) ??M ?Collect Date: ? 10/23/2016 ? Location: ? [facility] ? Receive Date: ? 10/24/2016 ? Provider: SHREYA LEA MD Copy to: MINDY SZYMANSKI FAST FOOD TEAM MEMBER ? Final Pathologic Diagnosis: A. ??GASTROESOPHAGEAL JUNCITON, [...] Status: Final result ?Visible to patient: Yes (iHigh Online) Next appt: 05/25/2018 at 11:40 in Rheumatology (Sudhir Rosales MD) Order: [id number] ? 1yr ago ?? Pathology Report: SURGICAL PATHOLOGY REPORT Reports generated via electronic interface contain original data; however they are lacking the format of the original report. Caution should be taken when reading/interpreting unformatted reports. Name: ? DEON VILLANUEVA ? Accession #: ? [id number] ? : ? 1945 (Age: 71) ??M ?Collect Date: ? 10/23/2016 ? Location: ? [facility] ? Receive Date: ? 10/24/2016 ? Provider: SHREYA LEA MD Copy to: MINDY SZYMANSKI [facility] ? Final Pathologic Diagnosis: A. ??GASTROESOPHAGEAL [...] Jul 2019 with hand swelling. Was in [place] at that time. Received prednisone burst from PCP 2 weeks ago- 20mg x 7 days, then 10mg x 7 days, he completed thistoday. Will restart MTX at last effective dose 10mg orally weekly and folic acid 1mg orally daily prednisone burst sent 20mg (4 tabs) x 5 days orally, decrease by 5 mg (1 tab) orally weekly 2. Labs at [facility] in October 2019 if Covid 19 quiet [...] suppose to see NPV with hematology at [facility]. I do not see a referral in [facility], his will follow up with PCP States 05/2019 labs at [facility]- will call for labs Encounter Diagnoses Name [...] the patientas described in the progress note. documented in this encounter Plan of Treatment Upcoming Encounters Date Type Department Care Team (Late st Contact Info) Description 04/09/2024 16:30 EDT Office Visit [facility] Hematology & Oncology - [address] [phone] Erin Barillas MD [address] [place] [address] 2 [place] [phone] 05/18/2024 10:00 EST Office Visit [facility] Rheumatology & Immunology - [address] [phone] Tod Perez NP [address] [place] [address], [facility] 5 [place] [phone] 06/03/2024 9:00 EST Ancillary Procedure [facility] Cardiology Clinic [address] [place] [phone] 06/03/2024 9:00 EST Office Visit [facility] Cardiology Clinic [address] [place] [phone] Claire Lopez NP [address] [place] [address] [address] [place] [phone] documented as of this encounter Visit Diagnoses Diagnosis Inflammation around joint- Primary Enthesopathy of unspecified site Encounter for long-term (current) use of medications Encounter for long-term (current) use of other medications documented in this encounter Discontinued Medications Medication Sig Discontinue Reason Start Date End Da te metoprolol XL (TOPROL-XL) 25 mg tablet Duplicate order 05/02/2019 020 PREDNISONE ORAL Take 10 mg by mouth daily. Alternate therapy 09/23/2019 methotrexate 2.5 mg tablet Take 4 Tabs by mouth once a week. Reorder 12/07/2018 09/23/2019 folic acid (FOLVITE) 1 mg tablet Take 1 tablet by mouth daily. Reorder 09/07/2018 09/23/2019 documented as of this encounter Historical Medications * This list may reflect changes made after this encounter. Medication Sig Dispensed Refills Start Date End Date PREDNISONE ORAL Take 10 mg by mouth daily. 09/23/2019 added in this encounter Orders Lab Orders Without Results Count Last Ordered D ate First Ordered Date COMPLETE BLOOD COUNT AND DIFFERENTIAL 1 02/2020 COMPREHENSIVE METABOLIC PANEL (CMP) 1 09/22 documented in this encounter Care Teams Hospitality Director Relationship Specialty Start Date End Date Dereck Schultz MD PCP - General 04/07/19 04/04/20 documented as of this encounter
--- OUTSIDE RECORDS SUMMARY | 2024-01-09 01:53 | XMS_ITS | Encounter Summary ---
Author Organization [facility] Address [address] [place] [address] Care Team Providers Care A P Supervisor Name Role Phone Dereck Schultz MD Primary Care Provider U navailable Reason for Referral * (Routine) - Closed Specialty Diagnoses / Procedures Referred By Marissa carney Referred To Contact Diagnoses Pacemaker Procedures CARDIAC IMPLANT CHECK - IN CLINIC Claire Lopez NP [address] [place] [address] [address] Referral ID Status Reason Start Date Expiration Date Visits Re quested Visits Authorized [id number] Closed 05/11/2019 1 1 * (Routine) - Closed Specialty Diagnoses / Procedures Referred By Marissa carney Referred To Contact Diagnoses Pacemaker Procedures CARDIAC IMPLANT CHECK - IN CLINIC Claire Lopez NP [address] [place] [address] [address] [place] [address] Referral ID Status Reason Start Date Expiration Date Visits Re quested Visits Authorized [id number] Closed 05/11/2019 1 1 Reason for Visit * Reason Comments Pacemaker/Device Check Medtronic * Cardiology (Routine) - Specialty Report Received Specialty Diagnoses / Procedures Referred By Marissa carney Referred To Contact Diagnoses Encounter for adjustment and management of other part of cardiac pacemaker Procedures CARDIAC IMPLANT CHECK - IN CLINIC Andres Chawla MD [address] [facility] [address] [place] [address] Referral ID Status Reason Start Date Expiration Date V isits Requested Visits Authorized [id number] Specialty Report Received 04/04/2019 1 1 Encounter Details Date Type Department Care Team (Late st Contact Info) Description 05/11/2019 15:15 EST Office Visit [facility] Clinic [address] [place] [address] Claire Lopez NP [address] [facility] [address] [place] [address] Pacemaker (Primary Dx); Sick sinus [...] this encounter Progress Notes * Claire Lopez, PUBLIC HOUSING INTERVIEWER - 05/11/2019 1515 EST Cardiology Clinic Note 05/11/19 15:30 Presenting complaint: Pacemaker/Device Check (Medtronic) CHASITY Dacosta is a pleasant 73 yo with multiple medical co-morbidities including inflammatory polyarthropathy treated with methotrexate, hx benign neoplasm of the colon, GERD, BPH, stage III CKD, HLD, NATALIE, HTN, sinus node dysfunction s/p single chamber pacemaker who returns to the office for routine device i nterrogation. Last seen in January 2019 at [facility] device clinic where he complained of dizziness and pre-syncope prompting a holter and ECHO. Holter monitor 01/2019 showed no evidence of arrhythmia or high degree AVB that would contribute to symptoms. He also had an ECHO at that time which showed normal LV function and no significant structural or valvular disease to explain his dizziness/pre-syncope. Today he reports feeling well from a cardiac standpoint, however he experiences daily headaches and dizziness that does not seem to be related to position changes. 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 Judging from battery longevity at last visit 3 months ago we should be ok to [...] up with his PCP. Claire Lopez NP [facility] Cardiology documented in this encounter Plan of Treatment Upcoming Encounters Date Type Department Care Team (Late st Contact Info) Description 04/09/2024 16:30 EDT Office Visit [facility] Cancer Black Hematology & Oncology - [address] [phone] Erin Barillas MD [address] [place] [address], [facility] 2 [place] [phone] 05/18/2024 10:00 EST Office Visit [facility] Rheumatology & Immunology [address] [address] Tod Perez NP [address] [place] [address], [facility] 5 [place] [phone] 06/03/2024 9:00 EST Ancillary Procedure [facility] [address] [place] [phone] 06/03/2024 9:00 EST Office Visit [facility] [address] [place] [phone] Claire Lopez NP [address] [place] [address] [address] [place] [address] Scheduled Orders Name Type Priority Associated Diagnoses Order Schedule CARDIAC IMPLANT CHECK - IN CLINIC Implantable Cardiac Device Routine Pacemaker 12 Occurrences starting 05/11/2019 until 03/02/2026, 7 completed documented as of this encounter Results * CARDIAC IMPLANT CHECK - IN CLINIC - PACEMAKER SINGLE CHAMBER W/ PROG (12/04/2023 9:21 EDT) Anatomical Region Laterality Modality Device Narrative 12/04/2023 9:21 EDT Refer to same day OV for full details Procedure Note Claire Lopez NP - 12/04/2023 Refer to same day OV for full details Claire Lopez NP CV IMPLANTABLE CARDI AC DEVICE * CARDIAC IMPLANT CHECK - IN CLINIC - PACEMAKER SINGLE CHAMBER W/ PROG (05/13/2023 11:02 EST) Anatomical Region Laterality Modality Device Narrative 05/13/2023 11:02 EST Refer to same day OV for full details Procedure Note Claire Lopez SCORING MACHINE OPERATOR - 05/13/2023 Refer to same day OV for full details Claire Lopez NP CV IMPLANTABLE CARDI AC DEVICE * CARDIAC IMPLANT CHECK - IN CLINIC - PACEMAKER SINGLE CHAMBER W/ PROG (11/05/2022 10:56 EDT) Anatomical Region Laterality Modality Device Narrative 11/05/2022 10:56 EDT Refer to same day OV for full details Procedure Note Claire Lopez SCORING MACHINE OPERATOR - 11/05/2022 Refer to same day OV for full details Claire Lopez SCORING MACHINE OPERATOR CV IMPLANTABLE CARDI AC DEVICE * CARDIAC IMPLANT CHECK - IN CLINIC - PACEMAKER SINGLE CHAMBER W/ PROG (04/25/2022 14:17 EST) Anatomical Region Laterality Modality Device Narrative 04/25/2022 14:17 EST Refer to same day OV for full details Procedure Note Claire Lopez NP - 04/25/2022 Refer to same day OV for full details Claire Jessica SCORING MACHINE OPERATOR CV IMPLANTABLE CARDI AC DEVICE * CARDIAC IMPLANT CHECK - IN CLINIC - PACEMAKER SINGLE CHAMBER W/ PROG (10/17/2021 15:57 EDT) Anatomical Region Laterality Modality Device Narrative 10/17/2021 15:58 EDT Refer to same day OV for full details Procedure Note Claire Lopez FESTUS - 10/17/2021 Refer to same day OV for full details Claire Lopez NP CV IMPLANTABLE CARDI AC DEVICE * CARDIAC IMPLANT CHECK - IN CLINIC - PACEMAKER SINGLE CHAMBER W/ PROG (03/02/2021 16:26 EDT) Anatomical Region Laterality Modality Device Narrative 03/02/2021 16:26 EDT Refer to same day OV for full details Procedure Note Claire LpoezBATSHEVA - 03/02/2021 Refer to same day OV for full details Claire Lopez NP CV IMPLANTABLE CARDI AC DEVICE * CARDIAC IMPLANT CHECK - IN CLINIC - PACEMAKER SINGLE CHAMBER W/ PROG (11/22/2019 11:05 EDT) Anatomical Region Laterality Modality Device Narrative 11/22/2019 11:05 EDT Refer to same day OV for full details Claire Lopez NP CV IMPLANTABLE CARDI AC DEVICE * CARDIAC IMPLANT CHECK - IN CLINIC - PACEMAKER (05/11/2019 15:41 EST) Anatomical Region Laterality Modality Device Narrative 05/11/2019 15:42 EST Refer to Office note performed same day for full details. Procedure Note Claire LopezBATSHEVA - 05/11/2019 Refer to Office note performed same day for full details. Claire Lopez NP CV IMPLANTABLE CARDI AC [...] Discontinue Reason Start Date End Da te triamcinolone (KENALOG) 0.1 % creamIndications:Histor y of seronegative inflammatory arthritis,Taking multiple medications for chronic disease,Skin rash Apply topically daily. Patient Stopped Taking 05/10/2019 LACTOBACILLUS ACIDOPHILUS (PROBIOTIC ORAL) Take by mouth daily Patient Stopped Taking 05/10/2019 ivermectin 1 % cream Apply topically to affected area daily. Patient Stopped Taking 02/14/2017 05/10/2019 omeprazole (PRILOSEC) 20 mg capsule Take 40 mg by mouth daily. Duplicate order 05/11/2019 documented as of this encounter Historical Medications * This list may reflect changes made after this encounter. Medication Sig Dispensed Refills Start Date End Date omeprazole (PRILOSEC) 40 mg capsule Take 1 Capsule by mouth daily. 04/28/2019 metoprolol XL (TOPROL-XL) 25 mg tablet 05/02/201902/2020 added in this encounter Orders Imaging Orders Without Results Count Last Order ed Date First Ordered Date CARDIAC IMPLANT CHECK - IN CLINIC 1 019 documented in this encounter Care Teams A P Supervisor Relationship Specialty Start Date End Date Dereck Schultz MD PCP - General 04/07/19 04/04/20 documented as of this encounter
--- OUTSIDE RECORDS SUMMARY | 2024-01-09 01:53 | XMS_ITS | Encounter Summary ---
Author Organization [facility] Address [address] [place] [address] Care Team Providers Care Biofuels Research Scientist Name Role Phone Dereck Schultz MD Primary Care Provider U navailable Reason for Visit * Reason Comments Follow-up Encounter Details Date Type Department Care Team (Late st Contact Info) Description 12/06/2019 10:30 EDT Office Visit [facility] Hematology & Oncology - [facility] [address] [place], [place] [phone] Erin Barillas MD [address] [facility], Level 2 [place] [phone] Polycythemia vera (HCC-CMS) (Primary Dx) Social History [...] Progress Notes * Erin Barillas MD - 12/06/2019 1030 EDT [...] that he spent the winter in [place] and noted that his fingers would turn red and get cold very easily. Denies any epistaxis, gum bleeding or easy bruising. Patient denies any history of blood clots. 12 point ROS performed with pertinent positives and negatives as documented in HPI and ROS summary below. Social history: Retired. Worked for the [employer]. Former smoker with 20 pack year [...] on phone: None Gets together: None Attends tenriism service: None Active member of club or organization: None Attends meetings of clubs or organizations: None Relationship status: None ??? Intimate partner violence: Fear of current or ex partner: None Emotionally abused: None Physically abused: None Forced sexual activity: None Other Topics Concern ??? 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 3. Continue low-dose Aspirin 81mg daily. 4. Noted to have an elevated BP in clinic today. Patient does not recall what medication he takes at home for this. As per records is on Metoprolol but unclear if a recent change was made in his BP medications. Will follow up and contact PCP regarding adjusting medications. I explained the above findings to the patient who is agreeable to this course of action. Thank you for this referral. Diagnoses and all orders for this visit: Polycythemia vera (HCC-CMS) Erin Barillas MD documented in this encounter Plan of Treatment Upcoming Encounters Date Type Department Care Team (Late st Contact Info) Description 04/09/2024 16:30 EDT Office Visit [facility] Hematology & Oncology - [address] [phone] Erin Barillas MD [address] [place] [address], [facility] 2 [place] [phone] 05/18/2024 10:00 EST Office Visit [facility] Rheumatology & Immunology [address] [phone] Tod Perez NP [address] [place] [address], [facility] 5 [place] [phone] 06/03/2024 9:00 EST Ancillary Procedure [facility] Cardiology Clinic [address] [place] [phone] 06/03/2024 9:00 EST Office Visit [facility] Cardiology Clinic [address] [place] [phone] Claire Lopez NP [address] [place] [address]-[address] [place] [address] documented as of this encounter Visit Diagnoses Diagnosis Polycythemia vera (HCC-CMS)- Primary documented in this encounter Care Teams Biofuels Research Scientist Relationship Specialty Start Date End Date Dereck Schultz MD PCP - General 04/07/19 04/04/20 documented as of this encounter
--- OUTSIDE RECORDS SUMMARY | 2024-01-09 01:53 | XMS_ITS | Encounter Summary ---
Author Organization [facility] Address [address] [place] [address] Care Team Providers Care Post Closing Specialist Name Role Phone Dereck Schultz MD Primary Care Provider U navailable Reason for Visit * Reason Onset Date Comments Joint Swelling 09/10/2019 Hands Hand Pain 09/10/2019 Encounter Details Date Type Department Care Team (Late st Contact Info) Description 09/10/2019 Telephone [facility] Rheumatology & Immunology - [facility] [address] [place], [place] [phone] Sudhir Rosales MD [address] [phone] Joint Swelling (Hands); Hand Pain Social History Tobacco Use Types Packs/Day Years [...] encounter Miscellaneous Notes * Telephone Encounter - Vera Silva RN - 09/10/2019 1306 EDT Spoke with Ching from PCP office. They gave pt a new burst of prednisone to take for 2 weeks until FUR with FESTUS Perez. The burst is 20 mg for one week then 10 for one week. * Telephone Encounter - Yessica Tyson - 09/10/2019 1120 EDT Patient had hands swelling so PCP got him Prednisone on 08/24/19. He still is having pain but swelling has gone down. This was all going on while Patient was having wige drive across country back to [place]. Please call Ching for the next steps. documented in this encounter Plan of Treatment Upcoming Encounters Date Type Department Care Team (Late st Contact Info) Description 04/09/2024 16:30 EDT Office Visit [facility] Hematology & Oncology - [address] [phone] Erin Barillas MD [address] [place] [address], [facility] 2 [place] [phone] 05/18/2024 10:00 EST Office Visit [facility] Rheumatology & Immunology - [address] [phone] Tod Perez NP [address] [facility], Level 5 [place] [phone] 06/03/2024 9:00 EST Ancillary Procedure [facility] Cardiology Clinic [address] [place] [phone] 06/03/2024 9:00 EST Office Visit [facility] Cardiology Clinic [address] [place] [phone] Claire Lopez NP 130 [facility] [address] [place] [address] documented as of this encounter Visit Diagnoses Not on filedocumented in this encounter Care Teams Post Closing Specialist Relationship Specialty Start Date End Date Dereck Schultz MD PCP - General 04/07/19 04/04/20 documented as of this encounter
--- OUTSIDE RECORDS SUMMARY | 2024-01-09 01:53 | XMS_ITS | Encounter Summary ---
Author Organization [facility] Address [address] [place] [address] Care Team Providers Care Department Clinician Name Role Phone Dereck Schultz MD Primary Care Provider U navailable Reason for Visit * (Routine) - Closed Specialty Diagnoses / Procedures Referred By Marissa carney Referred To Contact Diagnoses Pacemaker Procedures CARDIAC IMPLANT CHECK - IN CLINIC Claire Lopez NP [address] [facility] [address] [place] [address] Referral ID Status Reason Start Date Expiration Date Visits Re quested Visits Authorized [id number] Closed 05/11/2019 1 1 Encounter Details Date Type Department Care Team (Late st Contact Info) Description 05/11/2019 15:45 EST Ancillary Procedure [facility] Cardiology Clinic [address] [place] [address] Pacemaker Social History Tobacco Use [...] Visit [facility] Hematology & Oncology [address] [address]781 Erin Barillas MD [address] [place] [address] [address] [place] [phone] 05/18/2024 10:00 EST Office Visit [facility] Rheumatology & Immunology [address] [phone] Tod Perez NP [address] [place] [address], [facility] 5 [place] [phone] 06/03/2024 9:00 EST Ancillary Procedure [facility] Cardiology Clinic [address] [place] [phone] 06/03/2024 9:00 EST Office Visit [facility] Cardiology Clinic [address] [place] [address] [phone] Claire Lopez NP [address] [place] [address] [address] [place] [phone] documented as of this encounter Procedures Procedure Name Priority Date/Time Associated Diagnosis Comments CARDIAC IMPLANT CHECK - IN CLINIC Routine 05/11/2019 15:41 EST Pacemaker documented in this encounter Results * CARDIAC IMPLANT CHECK - IN CLINIC - PACEMAKER (05/11/2019 15:41 EST) Anatomical Region Laterality Modality Device Narrative 05/11/2019 15:42 EST Refer to Office note performed same day for full details. Procedure Note Claire Lopez, BATSHEVA - 05/11/2019 Refer to Office note performed same day for full details. Claire Lopez SILK WORKER CV IMPLANTABLE CARDI AC DEVICE documented in this encounter Visit Diagnoses Diagnosis Pacemaker Cardiac pacemaker in situ documented in this encounter Care Teams Department Clinician Relationship Specialty Start Date End Date Dereck Schultz MD PCP - General 04/07/19 04/04/20 documented as of this encounter
--- OUTSIDE RECORDS SUMMARY | 2024-01-09 01:53 | XMS_ITS | Encounter Summary ---
Author Organization [facility] Address [address] [place] [address] Care Team Providers Care Pickling Operator Name Role Phone Rebecca Pickens BIOSTATISTICS PROFESSOR Primary Care Provider [phone] Reason for Visit * Reason Onset Date Comments Medications Refill 09/03/2017 Encounter Details Date Type Department Care Team (Late st Contact Info) Description 09/03/2017 Refill [facility] Rheumatology & Immunology - [facility] [address] [place], [place] [phone] Sudhir Rosales MD [address] [phone] Medications Refill Social History Tobacco [...] No 05/28/2017 documented as of this encounter Ordered Prescriptions Prescription Sig Dispensed Refills Start Date End Da te folic acid (FOLVITE) 1 mg tablet Take 1 Tab by mouth daily. 90 Tab 1 09/04/2017 02/24/2018 documented in this encounter Miscellaneous Notes * Telephone Encounter - Claudia Salgado RN - 09/04/2017 1010 EDTFrom: Praneeth Villanueva To: Sudhir Rosales MD Sent: 09/03/2017 18:48 EDT Subject: Medication Renewal Request Original authorizing provider: MD Praneeth Evans would like a refill of the following medications: folic acid (FOLVITE) 1 mg tablet [Sudhir Rosales MD] Preferred pharmacy: [address] Comment: documented in this encounter Plan of Treatment Upcoming Encounters Date Type Department Care Team (Late st Contact Info) Description 04/09/2024 16:30 EDT Office Visit [facility] Cancer Center Hematology & Oncology - [address] [place] [address] [phone] Erin Barillas MD 111 [facility] 2 [place] [phone] 05/18/2024 10:00 EST Office Visit [facility] Rheumatology & Immunology - [address] [place] [address] [phone] Tod Perez NP 111 [facility], [facility] 5 [place] [phone] 06/03/2024 9:00 EST Ancillary Procedure [facility] Cardiology Clinic [address] [place] [phone] 06/03/2024 9:00 EST Office [facility] [address] [place], [place] [phone] Claire Lopez NP 130 [facility] [address] [place] [phone] documented as of this encounter Visit Diagnoses Not on filedocumented in this encounter Discontinued Medications Medication Sig Discontinue Reason Start Date End Da te folic acid (FOLVITE) 1 mg tablet Take 1 Tab by mouth daily. Reorder 09/09/2016 09/03/2017 documented as of this encounter Care Teams Pickling Operator Relationship Specialty Start Date End Date Rebecca Pickens NP PCP - General 02/13/17 11/23/17 documented as of this encounter
--- OUTSIDE RECORDS SUMMARY | 2024-01-09 01:53 | XMS_ITS | Encounter Summary ---
Author Organization [facility] Address [address] [place] [address] Care Team Providers Care Planner Chief Name Role Phone Dereck Schultz MD Primary Care Provider U navailable Reason for Visit * Reason Onset Date Comments Appointment Related 11/02/2019 Encounter Details Date Type Department Care Team (Late st Contact Info) Description 11/02/2019 Telephone [facility] Cancer Center Hematology & Oncology - [facility] [address] [place], [place] [phone] Erin Barillas MD [address] [facility], Level 2 [place] [address] Appointment Related Social History Tobacco [...] encounter Miscellaneous Notes * Telephone Encounter - Pepe Meier MA - 11/02/2019 1602 EDT Attempted to call and speak to discuss pre-charting for 11/04/19 televideo appt with Erin Barillas MD. No answer. Will call again later. - 11/02/19 documented in this encounter Plan of Treatment Upcoming Encounters Date Type Department Care Team (Late st Contact Info) Description 04/09/2024 16:30 EDT Office Visit [facility] Hematology & Oncology - [address] [address] Erin Barillas MD [address] [place] [address], [facility] 2 [place] [phone] 05/18/2024 10:00 EST Office Visit [facility] Rheumatology & Immunology [address] 1665[address] Tod Perez NP [address] [place] [address], [facility] 5 [place] [phone] 06/03/2024 9:00 EST Ancillary Procedure [facility] Cardiology Clinic [address] [place] [address] 06/03/2024 9:00 EST Office Visit [facility] Cardiology Clinic [address] [place] [address] Claire Lopez NP [address] [place] [address]-[address] [place] [phone] documented as of this encounter Visit Diagnoses Not on filedocumented in this encounter Care Teams Planner Chief Relationship Specialty Start Date End Date Dereck Schultz MD PCP - General 04/07/19 04/04/20 documented as of this encounter
--- OUTSIDE RECORDS SUMMARY | 2024-01-09 01:53 | XMS_ITS | Encounter Summary ---
Author Organization [facility] Address [address] [place] [address] Care Team Providers Care Marketing Services Manager Name Role Phone Dereck Schultz MD Primary Care Provider U navailable Reason for Visit * Reason Comments Telemedicine Video Visit Follow-up Encounter Details Date Type Department Care Team (Late st Contact Info) Description 11/26/2019 9:30 EDT Telemedicine [facility] Cancer Center Hematology & Oncology - [facility] [address], [place] [phone] Erin Barillas MD 111 [facility], Level 2 [place] [phone] Polycythemia vera ([facility]-CMS) (Primary Dx) Social History Tobacco Use Types [...] for 30 days. 60 Cap 11/26/2019 12/26/2019 documented in this encounter Progress Notes * Erin Barillas MD - 11/26/2019 0930 EDT [...] tingling in his hands. States that he notices trouble moving his left wrist and is not able to make a fist with that hand. Denies any shoulder pains. Denies any overall weakness in his arms or legs. Denies similar tingling, numbness or pain in his feet. Reports that he has chronic back pain which has not worsened. Reports occasional dizzinesswhen bending but denies any headaches or vision [...] States that he spent the winter in [place] and noted that his fingers would turn red and get cold very easily. Denies any epistaxis, gum bleeding or easy bruising. Patient denies any history of blood clots. 12 point ROS performed with pertinent positives and negatives as documented in HPI and ROS summary below. Social history: Retired. Worked for the [employer]. Former smoker with 20 pack year smoking [...] on phone: None Gets together: None Attends rastafari service: None Active member of club or organization: None Attends meetings of clubs or organizations: None Relationship status: None ??? Intimate partner violence: Fear of current or ex partner: None Emotionally abused: None Physically abused: None Forced sexual activity: None Other Topics Concern ??? 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 In no distress. Able tospeak in full sentences without difficulty Review of [...] orders for this visit: Polycythemia vera (HCC-CMS) Other orders - hydroxyurea (HYDREA) 500 mg [...] Description 04/09/2024 16:30 EDT Office Visit [facility] Hematology & Oncology - [address] [phone] Erin Barillas MD [address] [place] [address] 2 [place] [phone] 05/18/2024 10:[address] [facility] Rheumatology & Immunology - [address] [phone] Tod Perez NP [address] [place] [address] 5 [place] [phone] 06/03/2024 9:00 EST Ancillary Procedure [facility] Cardiology Clinic [address] [place] [address] [phone] 06/03/2024 9:00 EST Office Visit [facility] Cardiology Clinic [address] [place] [address] [phone] Claire Lopez NP [address] [place] [address] [address] [place] [address] documented as of this encounter Visit Diagnoses Diagnosis Polycythemia vera (HCC-CMS)- Primary documented in this encounter Care Teams Marketing Services Manager Relationship Specialty Start Date End Date Dereck Schultz MD PCP - General 04/07/19 04/04/20 documented as of this encounter
--- OUTSIDE RECORDS SUMMARY | 2024-01-09 01:53 | XMS_ITS | Encounter Summary ---
Author Organization [facility] Address [address] [place] [address] Care Team Providers Care Warehouse Technician Name Role Phone Lawanda Parisi [facility] Primary Care Provider + Reason for Visit * Reason Comments Follow-up pt says he is stiff, but doing okay Encounter Details Date Type Department Care Team (Latest Contact Info) Description 07/07/2018 11:20 EST Office Visit [facility] Rheumatology & Immunology - [facility] [address] [place], [place] [phone] Sudhir Rosales MD [address] [phone] History of seronegative inflammatory arthritis (Primary Dx); Encounter for long-term (current) use of medications Discharge Disposition: Auto Discharge Social History Tobacco [...] musculoskeletal system and connective tissue-Z87.39[ICD-10-CM] Z79.899 Other custodial (current) drug therapy-Z79.899[ICD-10-CM] documented in this encounter Patient Instructions * Patient Instructions* Sudhir Rosales MD - 07/07/2018 11:20 EST 1. [...] Da te methotrexate 2.5 mg tablet Take 6 Tabs by mouth once a week. 72 Tab 1 07/07/2018 12/07/2018 documented in this encounter Discharge Disposition Disposition Code Departure Means Destination Auto Discharge documented in this encounter Progress Notes * Bill Walker - 07/07/2018 1120 EST REVIEW [...] note change(s) below and update record x * Sudhir Rosales MD - 07/07/2018 1120 EST [...] Feeling well. - Travelled to [place] including [facility]. Able to ambulate without difficulty. - [...] 05/10/2014 C3 135 05/10/2014 C4 27 05/10/2014 [facility]: 11/18/18: CBC with differential: [...] Status: Final result ?Visible to patient: Yes ([facility]) Next appt: 05/25/2018 at 11:40 in Rheumatology (Sudhir Rosales MD) Order: [id number] ?? 1yr ago Pathology Report: SURGICAL PATHOLOGY REPORT Reports generated via electronic interface contain original data; however they are lacking the format of the original report. Caution should be taken when reading/interpreting unformatted reports. Name: ? DEON VILLANUEVA ? Accession #: ? [id number] ? : ? 1945 (Age: 71) ??M ?Collect Date: ? 10/23/2016 ? Location: ? [facility] ? Receive Date: ? 10/24/2016 ? Provider: SHREYA LEA MD Copy to: [facility] ? Final Pathologic Diagnosis: A. ??GASTROESOPHAGEAL [...] in B1. Lisanat Moscoso 10/25/2016 7:55 AM Results: SURGICAL PATHOLOGY Status: Final result (Collected: 10/23/2016 18:29) SURGICAL PATHOLOGY Status: Final result ?Visible to patient: Yes ([facility]) Next appt: 05/25/2018 at 11:40 in Rheumatology (Sudhir Rosales MD) Order: [id number] ?? 1yr ago Pathology Report: SURGICAL PATHOLOGY REPORT Reports generated via electronic interface contain original data; however they are lacking the format of the original report. Caution should be taken when reading/interpreting unformatted reports. Name: ? DEON VILLANUEVA ? Accession #: ? [id number] ? : ? 1945 (Age: 71) ??M ?Collect Date: ? 10/23/2016 ? Location: ? [facility] ? Receive Date: ? 10/24/2016 ? Provider: SHREYA LEA MD Copy to: [facility] ? Final Pathologic Diagnosis: A. ??GASTROESOPHAGEAL [...] Feels well. CBC w/diff and CMP on 05/03/2018 reviewed. No evidence of leukopenia, leukocytosis, anemia, thrombocytopenia, neutropenia, lymphopenia, renal insufficiency or transaminitis. Will continue to reduce methotrexate. Decrease to 12.5 mg orally weekly x 4 weeks then 10 mg orallyweekly. If arthritis symptoms return or worsen, he [...] documentation was created using voice recognition software. Back Closer errors may be present. documented in this encounter Plan of Treatment Upcoming Encounters Date Type Department Care Team (Late st Contact Info) Description 04/09/2024 16:30 EDT Office Visit [facility] Cancer Center Hematology & Oncology - [address] [phone] Erin Barillas MD [address] [place] [address], [facility], Level 2 [place] [address] 05/18/2024 10:00 EST Office Visit [facility] Rheumatology & Immunology - [address] [address] Tod Perez, MACHINE PACKAGING TECHNICIAN 111 [facility], [address] [place] [phone] 06/03/2024 9:00 EST Ancillary Procedure [facility] Cardiology Clinic [address] [place], [place] [address] 06/03/2024 9:00 EST Office Visit [facility] Cardiology Clinic [address] [place] [address] [phone] Claire Lopez NP 130 [facility] [address] [place] [phone] documented as of this encounter Visit Diagnoses Diagnosis History of seronegative inflammatory arthritis- Primary Encounter for long-term (current) use of medications Encounter for long-term (current) use of other medications documented in this encounter Discontinued Medications Medication Sig Discontinue Reason Start Date End Da te methotrexate 2.5 mg tablet Take 6 Tabs by mouth once a week. Reorder 04/28/2018 07/07/2018 documented as of this encounter Care Teams Warehouse Technician Relationship Specialty Start Date End Date Lawanda Parisi, TECHNICAL DOCUMENT WRITER-BC [address] [place] [phone] PCP - General 11/24/17 04/06/19 documented as of this encounter
--- OUTSIDE RECORDS SUMMARY | 2024-01-09 01:53 | XMS_ITS | Encounter Summary ---
Author Organization [facility] Address [address] [place] [address] Care Team Providers Care Lead Cargo Mover Name Role Phone Dereck Schultz MD Primary Care Provider U navailable Reason for Visit * Reason Onset Date Comments Appointment Related 11/24/2019Saturday 11/25 Encounter Details Date Type Department Care Team (Late st Contact Info) Description 11/24/2019 Telephone [facility] Cancer Center Hematology & Oncology - [facility] [address] [place], [place] [phone] Erin Barillas MD 111 [facility] 2 [place] [phone] Appointment Related (Saturday 11/25) Social History Tobacco Use Types Packs/Day Years [...] Notes * Telephone Encounter - Libra Rich - 11/25/2019 0940 EDT Called and scheduled on 11/25 at 930 * Telephone Encounter - Miley Verde - 11/24/2019 1252 EDT Please call to schedule appt for 11/25 as per RN note as soon as possible documented in this encounter Plan of Treatment Upcoming Encounters Date Type Department Care Team (Late st Contact Info) Description 04/09/2024 16:30 EDT Office Visit [facility] Hematology & Oncology - [address] [phone] Erin Barillas MD [address] [place] [address] 2 [place] [phone] 05/18/2024 10:00 EST Office Visit [facility] Rheumatology & Immunology - [address] [phone] Tod Perez NP [address] [place] [address], [facility] 5 [place] [phone] 06/03/2024 9:00 EST Ancillary Procedure [facility] Cardiology Clinic [address] [place] [phone] 06/03/2024 9:00 EST Office Visit [facility] Cardiology Clinic [address] [place] [address] [phone] Claire Lopez NP 130 [facility] [address] [place] [address] documented as of this encounter Visit Diagnoses Not on filedocumented in this encounter Care Teams Lead Cargo Mover Relationship Specialty Start Date End Date Dereck Schultz MD PCP - General 04/07/19 04/04/20 documented as of this encounter
--- OUTSIDE RECORDS SUMMARY | 2024-01-09 01:53 | XMS_ITS | Encounter Summary ---
Author Organization [facility] Address [address] [place] [address] Care Team Providers Care Applied Anthropologist Name Role Phone Dereck Schultz MD Primary Care Provider U navailable Reason for Visit * Reason Onset Date Comments Coordination Of Care 11/29/2019 Encounter Details Date Type Department Care Team (Late st Contact Info) Description 11/29/2019 Telephone [facility] Cancer Center Hematology & Oncology - [facility] [place] [address] [place] [address] Chikis Ji, RN Coordination Of Care Social [...] Fri12/06/19 at 1030 hrs. Received confirmation from [facility] that Praneeth is scheduled for a therapeutic phlebotomy on Fri12/06/[address] Barillas anticipates Praneeth will need weekly therapeutic phlebotomies for now until Hct <45, and he will need CBCD/CMP done prior to each phlebotomy. Called Praneeth and spoke with his Augustina. Augustina reports Praneeth is busy but she can take the call. I informed Augustina about Praneeth's appointments as listed above and that Praneeth will need a CBCD/CMP done prior to each phlebotomy. Augustina reports Praneeth will get his labs done at [facility] on Fri12/06/19 around 0900hrs. Regarding labs for future phlebotomies, since Praneeth lives in [place], [place], he would prefer to complete lab work at [facility] the day prior to future phlebotomies. Submitted a [facility] booking request for weekly Therapeutic Phlebotomies on Tuesdays, 12/20, 12/27,01/03, and 01/10. Once future TP appts are confirmed, will need to route CBCD/CMP lab orders to [facility] and call Praneeth with confirmed future TP appts. documented in this encounter Plan of Treatment Upcoming Encounters Date Type Department Care Team (Late st Contact Info) Description 04/09/2024 16:30 EDT Office Visit [facility] Hematology & Oncology - [address] [phone] Erin Barillas MD [address] [place] [address], [address] [place] [phone] 05/18/2024 10:00 EST Office Visit [facility] Rheumatology & Immunology - [address] [address] Tod Perez NP 111 [facility], [address] 5 [place] [phone] 06/03/2024 9:00 EST Ancillary Procedure [facility] Cardiology Clinic [address] [place] [address] 06/03/2024 9:00 EST Office Visit [facility] Cardiology Clinic [address] [place] [address] [phone] Claire Lopez NP 130 [facility] [address] [place] [phone] documented as of this encounter Visit Diagnoses Not on filedocumented in this encounter Care Teams Applied Anthropologist Relationship Specialty Start Date End Date Dereck Schultz MD PCP - General 04/07/19 04/04/20 documented as of this encounter
--- OUTSIDE RECORDS SUMMARY | 2024-01-09 01:53 | XMS_ITS | Encounter Summary ---
Author Organization [facility] Address [address] [place] [address] Care Team Providers Care Hardware Technician Name Role Phone Dereck Schultz MD Primary Care Provider U navailable Reason for Visit * Reason Comments Pacemaker/Device Check Follow-up Encounter Details Date Type Department Care Team (Latest Contact Info) Description 11/18/2019 15:45 EDT Office Visit [facility] - [facility] Cardiology Clinic [address] [place] [address] Claire Lopez NP 130 [facility] [address] [place] [address] Hypercholesteremia (Primary Dx); Pacemaker; Sick sinus syndrome (HCC-CMS); Essential hypertension Social History Tobacco Use Types Packs/Day Years [...] Progress Notes * Claire Lopez, BATSHEVA - 11/18/2019 1545 EDT Cardiology Clinic Note 11/18/19 15:36 Presenting complaint: Pacemaker/Device Check and Follow-up CHASITY Dacosta is a pleasant 74 yo with multiple medical co-morbidities including inflammatory polyarthropathy treated with methotrexate, hx benign neoplasm of the colon, GERD, BPH, stage III CKD, HLD, NATALIE, HTN, sinus node dysfunction s/p single chamber pacemaker who returns to the office for routine device i nterrogation. 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 If heremains hypertensive would recommend adding an ACEI or ARB. Reinforced lifestyle modification through diet, limiting sodium intake, regular activity and maintaining a healthy weight. 4. Hypercholesteremia Continue statin Claire Lopez NP [facility] Cardiology * Ryann Venegas - 11/18/2019 4776 EDT Note faxed to PCP documented in this encounter Plan of Treatment Upcoming Encounters Date Type Department Care Team (Late st Contact Info) Description 04/09/2024 16:30 EDT Office Visit [facility] Hematology & Oncology - [address] [phone] Erin Barillas MD [address] [place] [address], [facility] 2 [place] [phone] 05/18/2024 10:00 EST Office Visit [facility] Rheumatology & Immunology - [address] 305641 Tod Perez NP [address] [place] [address], [facility] 5 [place] [phone] 06/03/2024 9:00 EST Ancillary Procedure [facility] Cardiology Clinic [address] [place] [phone] 06/03/2024 9:00 EST Office Visit [facility] Cardiology Clinic [address] [place] [address] [phone] Claire Lopez NP 130 [facility] [address] [place] [address] documented as of this encounter Visit Diagnoses Diagnosis Hypercholesteremia- Primary Pure hypercholesterolemia Pacemaker Cardiac pacemaker in situ Sick sinus syndrome (HCC-CMS) Sinoatrial node dysfunction Essential hypertension Unspecified essential hypertension documented in this encounter Discontinued Medications Medication Sig Discontinue Reason Start Date End Da te RANITIDINE HCL ORAL Take 300 mg by mouth daily. 11/17/2019 metoprolol (LOPRESSOR) 25 mg tablet Take 25 mg by mouth daily. 11/17/2019 predniSONE (DELTASONE) 10 mg tablet Therapy completed 09/10/2019 11/18/2019 predniSONE (DELTASONE) 5 mg tablet 20mg (4 tabs) x 5 days orally, decrease by 5 mg (1 tab) orally weekly Therapy completed 09/23/2019 11/18/2019 documented as of this encounter Historical Medications * This list may reflect changes made after this encounter. Medication Sig Dispensed Refills Start Date End Date aspirin 81 mg EC tablet Take 1 Tablet by mouth daily. metoprolol XL (TOPROL-XL) 25 mg tablet Take 1 Tablet by mouth daily. 10/20/2019 ranitidine (ZANTAC) 300 mg tablet TK 1 T PO D 08/23/2019 12/02/2019 predniSONE (DELTASONE) 10 mg tablet 09/10/2019 11/18/2019 added in this encounter Care Teams Hardware Technician Relationship Specialty Start Date End Date Dereck Schultz MD PCP - General 04/07/19 04/04/20 documented as of this encounter
--- OUTSIDE RECORDS SUMMARY | 2024-01-09 01:53 | XMS_ITS | Encounter Summary ---
Author Organization [facility] Address [address] [place] [address] Care Team Providers Care Sterilizer Operator Name Role Phone Lawanda Parisi [facility] Primary Care Provider + Reason for Visit * Reason Onset Date Comments Medications Refill 09/06/2018 Encounter Details Date Type Department Care Team (Late st Contact Info) Description 09/06/2018 Refill [facility] Rheumatology & Immunology - [facility] [address] [place] [address] Sudhir Rosales MD [address] [place] [phone] Medications Refill Social History Tobacco Use [...] tablet Take 1 tablet by mouth daily. 90 tablet 3 09/07/2018 09/23/2019 documented in this encounter Miscellaneous Notes * Telephone Encounter - Zari Mccabe RN - 09/07/2018 0945 EDTFrom: Praneeth Villanueva Sent: 09/06/2018 10:02 EDT Subject: Medication Renewal Request Praneeth Villanueva would like a refill of the following medications: folic acid (FOLVITE) 1 mg tablet [Sudhir Rosales MD] [phone] documented in this encounter Plan of Treatment Upcoming Encounters Date Type Department Care Team (Late st Contact Info) Description 04/09/2024 16:30 EDT Office Visit [facility] Cancer Center Hematology & Oncology - [address] [phone] Erin Barillas MD 111 [facility] 2 [place] [phone] 05/18/2024 10:00 EST Office Visit [facility] Rheumatology & Immunology - [address] [phone] Tod Perez NP 111 [facility] 5 [place] [phone] 06/03/2024 9:00 EST Ancillary Procedure [facility] Cardiology Clinic [address] [place] [address] 06/03/2024 9:00 EST Office Visit [facility] Cardiology Clinic [address] [place] [address] Claire Lopez NP 130 [facility] [address] [place] [address] documented as of this encounter Visit Diagnoses Not on filedocumented in this encounter Discontinued Medications Medication Sig Discontinue Reason Start Date End Da te folic acid (FOLVITE) 1 mg tablet Take 1 Tab by mouth daily. Reorder 02/24/2018 09/06/2018 documented as of this encounter Care Teams Sterilizer Operator Relationship Specialty Start Date End Date Lawanda Parisi, KNOTTER HAND-BC [address] [place] [phone] PCP - General 11/24/17 04/06/19 documented as of this encounter
--- OUTSIDE RECORDS SUMMARY | 2024-01-09 01:53 | XMS_ITS | Encounter Summary ---
Author Organization [facility] Address [address] [place] [address] Care Team Providers Care Manager Asset Name Role Phone Lawanda Parisi [facility] Primary Care Provider + Reason for Referral * Radiology Services (Routine) - New Request Specialty Diagnoses / Procedures Referred By Contac t Referred To Contact Diagnoses Radicular low back pain History of seronegative inflammatory arthritis Sick sinus syndrome (HCC-CMS) Pacemaker Procedures CT MYELOGRAM LUMBAR W CONTRAST Sudhir Rosales MD [address] [place] [phone] Referral ID Status Reason Start Date Expiration Date V isits Requested Visits Authorized [id number] New Request 11/24/2017 1 1 * PT/OT/ST (Routine) - New Request Specialty Diagnoses / Procedures Referred By Contac t Referred To Contact Diagnoses Radicular low back pain History of seronegative inflammatory arthritis Sick sinus syndrome (HCC-CMS) Pacemaker Sudhir Rosales MD [address] [place] [address] Referral ID Status Reason Start Date Expiration Date Visits Requested Visits Authorized [id number] New Request Specialty Services Required 11/24/2017 1 1 Question Answer Reason for Request: low back pain with left lower extremity radiculopathy * Prior Authorization (Routine) - Closed Specialty Diagnoses / Procedures Referred By Marissa carney Referred To Contact Diagnoses Radicular low back pain History of seronegative inflammatory arthritis Sick sinus syndrome (HCC-CMS) Pacemaker Sudhir Rosales MD [address] [employer] [address] [place] [address] Referral ID Status Reason Start Date Expiration Date V isits Requested Visits Authorized [id number] Closed Specialty Services Required 11/24/2017 1 1 Question Answer Reason for Request: CT myelogram of the lumbar spine. Low back pain with left lower extremity radiculopathy. Worse when ascending hills and spinal extension. Positive left lower extremity straight leg raise. Comments The purpose of this consult request is to inform the scheduling staff that a procedure/surgery needs to be prior-authorized before it is scheduled. * Radiology Services (Routine) - New Request Specialty Diagnoses / Procedures Referred By Marissa carney Referred To Contact Diagnoses Radicular low back pain History of seronegative inflammatory arthritis Sick sinus syndrome (HCC-CMS) Pacemaker Procedures L SPINE 2-3 VIEWS Sudhir Rosales MD [address] [place] [address] Referral ID Status Reason Start Date Expiration Date V isits Requested Visits Authorized [id number] New Request 11/24/2017 1 1 Reason for Visit * Reason Comments Joint Pain right hand Back Pain lower left side Encounter Details Date Type Department Care Team (Latest Contact Info) Description 11/24/2017 15:00 EDT Office Visit [facility] Rheumatology & Immunology - [address] [address] Sudhir Rosales MD [address] [employer] [address] [address] [place] [address] Radicular low back pain (Primary Dx); History of seronegative inflammatory arthritis; Sick sinus syndrome (HCC-CMS); Pacemaker Discharge Disposition: Auto Discharge Social History Tobacco [...] M54.5 Low back pain-M54.5[ICD-10-CM] M54.10 Radiculopathy, site unspecified-M54.10[ICD-10-CM] Z87.39 Personal history of other diseases of the musculoskeletal system and connective tissue-Z87.39[ICD-10-CM] I49.5 Sick sinus syndrome-I49.5[ICD-10-CM] documented in this encounter Patient Instructions * Patient Instructions* Sudhir Rosales MD - 11/24/2017 15:00 EDT 1. Please have an x-ray of your lumbar spine done today 2. We will order a CT Myelogram imaging of the lumbar spine to evaluate further for spinal stenosis 3. This can be scheduled by you at [facility] 4. Schedule physical therapy for lumbar spinal stenosis 5. Continue ibuprofen 800 mg orally up to every 8 hours with food 6. Continue methotrexate 15 mg (6 tab) orally weekly 7. Once your back symptoms improve/resolve, we can then continue working on reducing the methotrexate. 8. If your back pain and left lower extremity symptoms worsen, please contact me. I can have you see the spine doctors or pain management 9. Follow up in 6 months documented in this encounter Discharge Disposition Disposition Code Departure Means Destination Auto Discharge documented in this encounter Progress Notes * Svetlana Stringer - 11/24/2017 1500 EDT REVIEW [...] record x * Sudhir Rosales MD - 11/24/2017 1500 EDT [...] Status: Final result ?Visible to patient: Yes (ROKT Online) Next appt: 05/25/2018 at 11:40 in Rheumatology (Sudhir Rosales MD) Order: [id number] ?? 1yr ago Pathology Report: SURGICAL PATHOLOGY REPORT Reports generated via electronic interface contain original data; however they are lacking the format of the original report. Caution should be taken when reading/interpreting unformatted reports. Name: ? DEON VILLANUEVA ? Accession #: ? [id number] ? : ? 1945 (Age: 71) ??M ?Collect Date: ? 10/23/2016 ? Location: ? [facility] ? Receive Date: ? 10/24/2016 ? Provider: SHREYA LEA MD Copy to: MINDY E STEPHON AUTOCUTTER ? Final Pathologic Diagnosis: A. ??GASTROESOPHAGEAL JUNCITON, [...] Status: Final result ?Visible to patient: Yes (ROKT Online) Next appt: 05/25/2018 at 11:40 in Rheumatology (Sudhir Rosales MD) Order: [id number] ?? 1yr ago Pathology Report: SURGICAL PATHOLOGY REPORT Reports generated via electronic interface contain original data; however they are lacking the format of the original report. Caution should be taken when reading/interpreting unformatted reports. Name: ? DEON ANDERSON ? Accession #: ? [id number] ? : ? 1945 (Age: 71) ??M ?Collect Date: ? 10/23/2016 ? Location: ? [facility] ? Receive Date: ? 10/24/2016 ? Provider: SHREYA LEA MD Copy to: MINDY Jean-Paul STEPHON AUTOCUTTER ? Final Pathologic Diagnosis: A. ??GASTROESOPHAGEAL JUNCITON, [...] as a Medtronic SES01 pacemaker that is notMRI compatible. Local steroid injections can be considered [...] he was instructed tocontact Dr. Farley's office. 56. Encounter for long-term (current) use of medications - CBC w/diff and CMP in October 2017 is withinnormal limits. ?? PATIENT INSTRUCTIONS: 1. Please have an x-ray of your lumbar spine done today 2. We will order a CT Myelogram imaging of the lumbar spine to evaluate further for spinal stenosis 3. This can be scheduled by you at [facility] 4. Schedule physical therapy for lumbar spinal stenosis 5. Continue ibuprofen 800 mg orally up to every 8 hours with food 6. Continue methotrexate 15 mg (6 tab) orally weekly 7. Once your back symptoms improve/resolve, we can then continue working on reducing the methotrexate. 8. If your back pain and left lower extremity symptoms worsen, please contact me. I can have you see the spine doctors or pain management 9. Follow up in 6 months There are no barriers to understanding/learning. Patient verbalizes understanding and agrees with plan. Sudhir Rosales MD 11/24/2017 Please note: Parts of this documentation was created using voice recognition software. Windshield Installer errors may be present. documented in this encounter Plan of Treatment Upcoming Encounters Date Type Department Care Team (Late st Contact Info) Description 04/09/2024 16:30 EDT Office Visit [facility] Hematology & Oncology - [address] [phone] Erin Barillas MD [address] [place] [address], [facility] [address] [place] [phone] 05/18/2024 10:00 EST Office Visit [facility] Rheumatology & Immunology - [address] [phone] Tod Perez NP [address] [place] [address], [facility] [address] [place] [phone] 06/03/2024 9:00 EST Ancillary Procedure [facility] [address] [place] [phone] 06/03/2024 9:00 EST Office Visit [facility] [address] [place] [address] Claire Lopez NP [address] [facility] [address] [place] [phone] Scheduled Orders Name Type Priority Associated Diagnoses Orde r Schedule CT MYELOGRAM LUMBAR W CONTRAST Imaging Routine Radicular low back pain History of seronegative inflammatory arthritis Sick sinus syndrome (HCC-CMS) Pacemaker Ordered: 11/24/2017 Scheduled Referrals Name Type Priority Associated Diagnoses Orde r Schedule AMB CONS/FOLLOW UP PROCEDURE PRIOR AUTHORIZATION REQUEST Outpatient Referral Routine Radicular low back pain History of seronegative inflammatory arthritis Sick sinus syndrome (CMS-HCC) Pacemaker Ordered: 11/24/2017 AMB CONS/FOLLOW UP PHYSICAL THERAPY Outpatient Referral Routine Radicular low back pain History of seronegative inflammatory arthritis Sick sinus syndrome (HCC-CMS) Pacemaker Ordered: 11/24/2017 documented as of this encounter Procedures Procedure Name Priority Date/Time Associated Diagnosis Comments L SPINE 2-3 VIEWS Routine 11/24/2017 16: 44 EDT Radicular low back pain History of seronegative inflammatory arthritis Sick sinus syndrome (HCC-CMS) Pacemaker documented in this encounter Results * L SPINE 2-3 VIEWS (11/24/2017 16:44 EDT) Anatomical Region Laterality Modality Other 11/24/2017 16:4 4 EDT 11/26/2017 8:39 EDT Narrative 11/26/2017 8:39 EDT L SPINE 2-3 VIEWS ??11/24/2017 4:44 PM Signs and Symptoms/Comments: ?? M54.10-Radiculopathy, site [id number]-[id number] Z87.39-Personal history of other diseases of the musculoskeletal system and connective [id number]-WKV-84; Low back pain with left lower extremity radiculopathy. ??Worse when ascending hills and spinal extension. Positive left lower extremity straight leg raise. COMPARISON: None FINDINGS: Recumbent frontal, lateral and spot LS lateral views were obtained. Alignment is normal and vertebral body heights are preserved. Moderate disc space narrowing is present at L4-L5. The L5-S1 disc space is severely narrowed. Facet arthropathy is probably present at L4-L5, but the facets are incompletely evaluated without oblique views. Procedure Note Arjun Draper MD - 11/26/2017 L SPINE 2-3 VIEWS 11/24/2017 4:44 PM Signs and Symptoms/Comments: M54.10-Radiculopathy, site [id number]-QZJ-09 Z87.39-Personal history of other diseases of the musculoskeletal system and connective qbjfwk-YDN-95; Low back pain with left lower extremity radiculopathy. Worse when ascending hills and spinal extension. Positive left lower extremity straight leg raise. COMPARISON: None FINDINGS: Recumbent frontal, lateral and spot LS lateral views were obtained. Alignment is normal and vertebral body heights are preserved. Moderate disc space narrowing is present at L4-L5. The L5-S1 disc space is severely narrowed. Facet arthropathy is probably present at L4-L5, but the facets are incompletely evaluated without oblique views. Sudhir Rosales MD IMG DIAGNOSTIC IMAGI NG ORDERABLES documented in this encounter Visit Diagnoses Diagnosis Radicular low back pain- Primary Thoracic or lumbosacral neuritis or radiculitis, unspecified History of seronegative inflammatory arthritis Sick sinus syndrome (HCC-CMS) Sinoatrial node dysfunction Pacemaker Cardiac pacemaker in situ documented in this encounter Care Teams Manager Asset Relationship Specialty Start Date End Date Lawanda Parisi, AUTOCUTTER-[employer] [address] [place] [address] PCP - General 11/24/17 04/06/19 documented as of this encounter
--- OUTSIDE RECORDS SUMMARY | 2024-01-09 01:53 | XMS_ITS | Encounter Summary ---
Author Organization [facility] Address [address] [place] [address] Care Team Providers Care Body Trimmer Name Role Phone Rebecca Pickens SUPERVISORY HISTORIAN Primary Care Provider [phone] Reason for Visit * Reason Comments New Patient Visit facial rash x10 year s * Consult (Routine) - Closed Specialty Diagnoses / Procedures Referred By Marissa carney Referred To Contact Dermatology Diagnoses History of seronegative inflammatory arthritis Facial rash Taking multiple medications for chronic disease Sudhir Rosales MD [address] [address] [facility] [address] Dermatology [address] [place] [address] Referral ID Status Reason Start Date Expiration Date V isits Requested Visits Authorized [id number] Closed Specialty Services Required 09/24/2016 1 1 Encounter Details Date Type Department Care Team (Late st Contact Info) Description 02/14/2017 9:30 EDT Office Visit [facility] Dermatology [address] [facility] [address] [place], [place] [phone] Tye Farley MD 111 [facility], [facility], [address] [place] [address] Rosacea (Primary Dx); Seborrheic keratoses Discharge Disposition: Auto Discharge Social History Tobacco [...] No 09/24/2016 documented as of this encounter Discharge Diagnoses Diagnosis L71.9 Rosacea, unspecified-L71.9[ICD-10-CM] documented in this encounter Ordered Prescriptions Prescription Sig Dispensed Refills Start Date End Da te ivermectin 1 % cream Apply topically to affected area daily. 1 Tube 11 02/14/2017 05/10/2019 documented in this encounter Discharge Disposition Disposition Code Departure Means Destination Auto Discharge documented in this encounter Progress Notes * Vinita Lion - 02/14/2017 0930 EDT Review of [...] is not nervous/anxious. Vinita Lion 02/14/2017 9:10 * Tye Farley MD - 02/14/2017 0930 EDT [...] social and family history, which were reviewed atthis visit. Present medications, allergies, review of systems [...] rtc prn Tye Farley MD 02/14/2017 9:37 documented in this encounter Plan of Treatment Upcoming Encounters Date Type Department Care Team (Late st Contact Info) Description 04/09/2024 16:30 EDT Office Visit [facility] Hematology & Oncology - [address] [phone] Erin Barillas MD [address] [place] [address], [facility], [address] [place] [phone] 05/18/2024 10:00 EST Office Visit [facility] Rheumatology & Immunology - [facility] [address] [place] [address] Tod Perez, FESTUS [address] [facility], [address] [place] [phone] 06/03/2024 9:00 EST Ancillary Procedure [facility] [address] [place] [address] 06/03/2024 9:00 EST Office Visit [facility] Cardiology Clinic [address] [place] [address] Claire Lopez NP [address] [place] [address] [place] [phone] documented as of this encounter Visit Diagnoses Diagnosis Rosacea- Primary Seborrheic keratoses documented in this encounter Care Teams Body Trimmer Relationship Specialty Start Date End Date Rebecca Pickens NP PCP - General 02/13/17 11/23/17 documented as of this encounter
--- OUTSIDE RECORDS SUMMARY | 2024-01-09 01:53 | XMS_ITS | Encounter Summary ---
Author Organization [facility] Address [address] [place] [address] Care Team Providers Care Van Loader Name Role Phone Rebecca Pickens GAS ENGINE OPERATOR COMPRESSORS Primary Care Provider [phone] Reason for Visit * Reason Onset Date Comments Medications Refill 04/22/2017 Encounter Details Date Type Department Care Team (Late st Contact Info) Description 04/22/2017 Refill [facility] Rheumatology & Immunology - [facility] [address] [place], [place] [phone] Sudhir Rosales MD [address] [address] Medications Refill Social History Tobacco [...] mouth once a week. 96 Tab 1 04/23/2017 11/09/2017 documented in this encounter Miscellaneous Notes * Telephone Encounter - Claudia Salgado RN - 04/23/2017 1113 ESTFrom: Praneeth Villanueva To: Sudhir Rosales MD Sent: 04/22/2017 6:22 EST Subject: Medication Renewal Request Original authorizing provider: MD Praneeth Evans would like a refill of the following medications: methotrexate 2.5 mg tablet [Sudhir Rosales MD] Preferred pharmacy: [facility] Comment: documented in this encounter Plan of Treatment Upcoming Encounters Date Type Department Care Team (Late st Contact Info) Description 04/09/2024 16:30 EDT Office Visit [facility] Hematology & Oncology - [address] [phone] Erin Barillas MD [address] [place] [address] 2 [place] [phone] 05/18/2024 10:00 EST Office Visit [facility] Rheumatology & Immunology - [address] [phone] Tod Perez NP 111 [facility], [facility] 5 [place] [phone] 06/03/2024 9:[address] [facility] Cardiology Clinic [address] [place] [address] 06/03/2024 9:00 EST Office Visit [facility] Cardiology Clinic [address] [place], [place] [address] Claire Lopez NP 130 [facility] [address] [place] [phone] documented as of this encounter Visit Diagnoses Not on filedocumented in this encounter Discontinued Medications Medication Sig Discontinue Reason Start Date End Da te methotrexate 2.5 mg tablet Take 8 Tabs by mouth once a week. Reorder 11/05/2016 04/22/2017 documented as of this encounter Care Teams Van Loader Relationship Specialty Start Date End Date Rebecca Pickens NP PCP - General 02/13/17 11/23/17 documented as of this encounter
--- OUTSIDE RECORDS SUMMARY | 2024-01-09 01:53 | XMS_ITS | Encounter Summary ---
Author Organization [facility] Address [address] [place] [address] Care Team Providers Care Ceramic Tile Installation Helper Name Role Phone Dereck Schultz MD Primary Care Provider U navailable Reason for Referral * Laboratory Services (Routine) - New Request Specialty Diagnoses / Procedures Referred By Marissa carney Referred To Contact Diagnoses Polycythemia Procedures ERYTHROPOIETIN Erin Barillas MD [address] [facility], [facility] 2 [place] [address] Referral ID Status Reason Start Date Expiration Date V isits Requested Visits Authorized [id number] New Request 11/04/2019 1 1 Reason for Visit * Reason Comments Telemedicine Video Visit * Consult (Routine) - Receiving Office to Obtain Authorization Specialty Diagnoses / Procedures Referred By Marissa carney Referred To Contact Hematology and Oncology Diagnoses Polycythemia Ary Araujo, RESIDENTIAL DESIGNER [address] [facility] [address] [place] [address] [facility] Ep2 Hem/Onc [address] [place] [address] Referral ID Status Reason Start Date Expiration Date Visits Requested Visits Authorized [id number] Receiving Office to Obtain Authorization 1 1 Encounter Details Date Type Department Care Team (Late st Contact Info) Description 11/04/2019 11:00 EDT Telemedicine [facility] Hematology & Oncology - [address] [phone] Erin Barillas MD 111 [facility], [facility], Level [address] [place] [address] Polycythemia (Primary Dx) Social History Tobacco Use Types [...] Progress Notes * Erin Barillas MD - 11/04/2019 1100 EDT [...] States that he spent the winter in [place] and noted that his fingers would turn red and get cold very easily. Denies any epistaxis, gum bleeding or easy bruising. Patient denies any history of blood clots. 12 point ROS performed with pertinent positives and negatives as documented in HPI and ROS summary below. Social history: Retired. Worked for the [employer]. 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, we need to either perform [...] [facility] Hematology & Oncology - [address] [phone] Erin Barillas MD [address] [place] [address] 2 [place] [phone] 05/18/2024 10:00 EST Office Visit [facility] Rheumatology & Immunology - [address] [phone] Tod Perez NP [address] [place] [address] 5 [place] [phone] 06/03/2024 9:00 EST Ancillary Procedure [facility]iology Clinic [address] [place] [phone] 06/03/2024 9:00 EST Office Visit [facility] Cardiology Clinic [address] [place] [phone] Claire Lopez NP [address] [place] [address] [address] [place] [phone] documented as of this encounter Results * (ABNORMAL) ERYTHROPOIETIN (12/06/2019 9:26 EDT) Erythropoietin (EPO), S 1.4(L) 2.6 - 18.5 mIU/mL 12/07/2019 12:30 EDT [facility] Comment: Test Performed by: [facility] [address] [place] [address] Crime Scene Technician: Shiv Bhatia M.D. Ph.D.; CLIA# [id number] Blood VENOUS BLOOD / Unknown Venipuncture / Unknown 12/06/2019 9:26 EDT 12/06/2019 9:31 EDT Erin Barillas MD CHEMISTRY & BLOOD GA S ORDERABLES [facility] [address] [place] [address] documented in this encounter Visit Diagnoses Diagnosis Polycythemia- Primary Polycythemia vera documented in this encounter Care Teams Ceramic Tile Installation Helper Relationship Specialty Start Date End Date Dereck Schultz MD PCP - General 04/07/19 04/04/20 documented as of this encounter
--- OUTSIDE RECORDS SUMMARY | 2024-01-09 01:53 | XMS_ITS | Encounter Summary ---
Author Organization [facility] Address [address] [place] [address] Care Team Providers Care Electrical Discharge Machine Operator Name Role Phone Lawanda Parisi [facility] Primary Care Provider + Reason for Visit * Reason Onset Date Comments Medications Refill 04/26/2018 Encounter Details Date Type Department Care Team (Late st Contact Info) Description 04/26/2018 Refill [facility] Rheumatology & Immunology - [facility] [address] [place] [address] Sudhir Rosales MD [address] [place] [phone] Medications Refill Social History Tobacco Use [...] mouth once a week. 72 Tab 1 04/28/2018 07/07/2018 documented in this encounter Miscellaneous Notes * Telephone Encounter - Claudia Salgado RN - 04/28/2018 1606 EST My Health message sent to pt to get labs completed when able. * Telephone Encounter - Sudhir Rosales MD - 04/28/2018 1539 EST 1. He should monitor blood work every 3-4 months 2. Ok to refill methotrexate Thank you Sudhir Rosales MD * Telephone Encounter - Claudia Salgado RN - 04/28/2018 1520 EST Is pt to do labs every 3-4 months or on different schedule? Last done 11/2017. documented in this encounter Plan of Treatment Upcoming Encounters Date Type Department Care Team (Late st Contact Info) Description 04/09/2024 16:[address] [facility] Hematology & Oncology - [address] [address] Erin Barillas MD [address] [place] [address], [facility] 2 [place] [phone] 05/18/2024 10:00 EST Office Visit [facility] Rheumatology & Immunology - [address] [address]751 Tod Perez NP 111 [facility], Level 5 [place] [phone] 06/03/2024 9:00 EST Ancillary Procedure [facility] Cardiology Clinic [address] [place], [place] [phone] 06/03/2024 9:00 EST Office Visit [facility] Cardiology Clinic [address] [place] [phone] Claire Lopez, FESTUS 130 [facility] [address] [place] [phone] documented as of this encounter Visit Diagnoses Not on filedocumented in this encounter Discontinued Medications Medication Sig Discontinue Reason Start Date End Da te methotrexate 2.5 mg tablet Take 6 Tabs by mouth once a week. Reorder 11/13/2017 04/26/2018 documented as of this encounter Care Teams Electrical Discharge Machine Operator Relationship Specialty Start Date End Date Lawanda Parisi, [employer] DIVISION MANAGER- [address] [place] [phone] PCP - General 11/24/17 04/06/19 documented as of this encounter
--- OUTSIDE RECORDS SUMMARY | 2024-01-09 01:53 | XMS_ITS | Encounter Summary ---
Author Organization [facility] Address [address] [place] [address] Care Team Providers Care Professor Of History Name Role Phone Rebecca Pickens [employer] Primary Care Provider [phone] Reason for Visit * Reason Onset Date Comments Medications Refill 11/09/2017 Encounter Details Date Type Department Care Team (Late st Contact Info) Description 11/09/2017 Refill [facility] Rheumatology & Immunology - [facility] [address] [place], [place] [phone] Sudhir Rosales MD [address] [phone] Medications Refill Social History Tobacco [...] mouth once a week. 72 Tab 1 11/13/2017 04/26/2018 documented in this encounter Miscellaneous Notes * Telephone Encounter - Diandra Chavez, RN - 11/13/2017 0844 EDT Received call from pt's spouse verifying that pt is taking 6 tabs of methotrexate weekly. Labs current, methotrexate refilled. * Telephone Encounter - Savannah Nunez RN - 11/12/2017 0842 EDTFrom: Praneeth Villanueva To: Sudhir Rosales MD Sent: 11/09/2017 9:46 EDT Subject: Medication Renewal Request Original authorizing provider: MD Praneeth Evans would like a refill of the following medications: methotrexate 2.5 mg tablet [Sudhir Rosales MD] Preferred pharmacy: [facility] Comment: documented in this encounter Plan of Treatment Upcoming Encounters Date Type Department Care Team (Late st Contact Info) Description 04/09/2024 16:30 EDT Office Visit [facility] Hematology & Oncology - [address] 188[address] Erin Barillas MD [address] [place] [address], [address] [place] [phone] 05/18/2024 10:00 EST Office Visit [facility] Rheumatology & Immunology - [address] 218641 Tod Perez NP 111 [facility], [address] [place] [phone] 06/03/2024 9:[address] [facility] [address] [place], [place] [address] 06/03/2024 9:[address] [facility] Card[facility] [address] [place], [place] [phone] Claire Lopez NP 130 [facility] [address] [place] [address] documented as of this encounter Visit Diagnoses Not on filedocumented in this encounter Discontinued Medications Medication Sig Discontinue Reason Start Date End Da te methotrexate 2.5 mg tablet Take 8 Tabs by mouth once a week. Reorder 04/23/2017 11/09/2017 documented as of this encounter Care Teams Professor Of History Relationship Specialty Start Date End Date Rebecca Pickens NP PCP - General 02/13/17 11/23/17 documented as of this encounter
--- OUTSIDE RECORDS SUMMARY | 2024-01-09 01:53 | XMS_ITS | Encounter Summary ---
Author Organization [facility] Address [address] [place] [address] Care Team Providers Care Office Machine Embossograph Operator Name Role Phone Dereck Schultz MD Primary Care Provider U navailable Reason for Visit * Reason Onset Date Comments Coordination Of Care 11/30/2019 Encounter Details Date Type Department Care Team (Late st Contact Info) Description 11/30/2019 Telephone [facility] Cancer Center Hematology & Oncology - [place] [address] [place] [address] Chikis Ji, RN Coordination Of Care Social [...] Encounter - Chikis Ji RN - 11/30/2019 1304 EDT Received the fax number for [facility] lab. Faxed standing CBCD/CMP laborders to [phone]. * Telephone Encounter - Chikis Ji RN - 11/30/2019 1043 EDT PAC - When [facility] lab calls back, please page [phone] or call [phone], thank you Per Dr. Barillas, Praneeth will need weekly therapeutic phlebotomies for now until Hct <45, and he willneed CBCD/CMP done prior to each phlebotomy. Praneeth is scheduled for initial TP on [facility] 4 on Fri12/06/19 at 1245. Praneeth will get his CBCD/CMP labs done Fri12/06/19 around 0900. [facility] confirmed future weekly therapeutic phlebotomy appts for: 12/15/19, 12/21/19, 12/28/19, 01/04/20, 01/11/20. Given the fact that Praneeth lives in [facility], heprefers to get pre-TP labs done at [facility] the day prior to future TP. I called Praneeth and reviewed his upcoming TP appts/needing labs done day prior - he verbalized understanding but asked that I call his Augustina as she usually handles his appts. I then called Augustina and reviewed his upcoming TP appts and needing labs done the day prior. Augustina is agreeable with the plan and said she will check the appointments in [facility] and Praneeth will get future labs done at [facility]. Augustina knows the lab is open Mon-Fri 7 am to 5 pm and they only see patients via appointments. I called [facility] lab to clarify the number which I should route standing CBCD/CMP orders - no answer so I left a voicemail requesting a call back. Will route lab ordersonce [facility] lab calls back. documented in this encounter Plan of Treatment Upcoming Encounters Date Type Department Care Team (Late st Contact Info) Description 04/09/2024 16:30 EDT Office Visit [facility] Hematology & Oncology - [address] [phone] Erin Barillas MD [address] [place] [address] [address] [place] [phone] 05/18/2024 10:00 EST Office Visit [facility] Rheumatology & Immunology - [address] [phone] Tod Perez NP [address] [place] [address], [facility] [address] [place] [phone] 06/03/2024 9:00 EST Ancillary Procedure [facility] Cardiology Clinic [address] [place] [address] 06/03/2024 9:00 EST Office Visit [facility] Cardiology Clinic [address] [place] [phone] Claire Lopez NP [address] [place] [address]-[address] [place] [phone] documented as of this encounter Visit Diagnoses Diagnosis Polycythemia vera ([facility])- Primary documented in this encounter Care Teams Office Machine Embossograph Operator Relationship Specialty Start Date End Date Dereck Schultz MD PCP - General 04/07/19 04/04/20 documented as of this encounter
--- OUTSIDE RECORDS SUMMARY | 2024-01-09 01:53 | XMS_ITS | Encounter Summary ---
Author Organization [facility] Address [address] [place] [address] Care Team Providers Care Technician'S Helper Name Role Phone Dereck Schultz MD Primary Care Provider U navailable Reason for Referral * Laboratory Services (Routine) - New Request Specialty Diagnoses / Procedures Referred By Marissa carney Referred To Contact Diagnoses Polycythemia Procedures ERYTHROPOIETIN Erin Barillas MD 111 [facility], [facility], Level [address] [place] [address] Referral ID Status Reason Start Date Expiration Date V isits Requested Visits Authorized [id number] New Request 11/04/2019 1 1 Reason for Visit * Reason Onset Date Comments Labs Only 11/04/2019 Encounter Details Date Type Department Care Team (Late st Contact Info) Description 11/04/2019 Telephone [facility] Cancer Center Hematology & Oncology - [facility] [address] [place] [address] Chikis Ji RN Labs Only Social History Tobacco Use Types [...] Encounter - Chikis Ji RN - 11/04/2019 6235 EDT Per request of Dr. Barillas, entered lab order for serum erythropoietin and routed lab order to 's local hospital [facility]. Spoke with [facility] lab and they report Praneeth needs to call ([phone]) ahead of time to schedule an appt. Called Praneeth and spoke with his Augustina. Augustina reports she will let Praneeth know about the lab. documented in this encounter Plan of Treatment Upcoming Encounters Date Type Department Care Team (Late st Contact Info) Description 04/09/2024 16:30 EDT Office Visit [facility] Hematology & Oncology - [address] [phone] Erin Barillas MD 111 [facility], [facility] 2 [place] [phone] 05/18/2024 10:00 EST Office Visit [facility] Rheumatology & Immunology - [address] [phone] Tod Perez NP 111 [facility], Level [address] [place] [phone] 06/03/2024 9:00 EST Ancillary Procedure [facility] Cardiology Clinic [address] [place], [place] [phone] 06/03/2024 9:00 EST Office Visit [facility] Cardiology Clinic [address] [place], [place] [phone] Claire Lopez NP 130 [facility] [address] [place] [phone] documented as of this encounter Visit Diagnoses Diagnosis Polycythemia- Primary Polycythemia vera documented in this encounter Orders Lab Orders Without Results Count Last Ordered D ate First Ordered Date ERYTHROPOIETIN 11/04/2019 documented in this encounter Care Teams Technician'S Helper Relationship Specialty Start Date End Date Dereck Schultz MD PCP - General 04/07/19 04/04/20 documented as of this encounter
--- OUTSIDE RECORDS SUMMARY | 2024-01-09 01:53 | XMS_ITS | Encounter Summary ---
Author Organization [facility] Address [address] [place] [address] Care Team Providers Care Heavy Mobile Equipment Operator Name Role Phone Dereck Schultz MD Primary Care Provider U Layne Clemons MD Primary Care Provider [phone] Reason for Visit * Reason Onset Date Comments Appointment Related 11/02/2019 called for p re-visit, no answer Encounter Details Date Type Department Care Team (Late st Contact Info) Description 11/02/2019 Telephone [facility] Cancer Center Hematology & Oncology - [facility] [place] [address] [place], [place] [phone] Erin Barillas MD 111 [facility], Level [address] [place] [address] Appointment Related (called for pre-visit, no answer) Social History Tobacco Use Types Packs/Day Years [...] encounter Miscellaneous Notes * Telephone Encounter - Sintia Piña MA - 09/28/2020 1025 EDT Apt related documented in this encounter Plan of Treatment Upcoming Encounters Date Type Department Care Team (Late st Contact Info) Description 04/09/2024 16:30 EDT Office Visit [facility] [place] Hematology & Oncology - [address] [phone] Erin Barillas MD 111 [facility], [facility] 2 [place] [phone] 05/18/2024 10:00 EST Office Visit [facility] [place] Rheumatology & Immunology - [address] [phone] Tod Perez NP 111 [facility], [facility] 5 [place] [phone] 06/03/2024 9:00 EST Ancillary Procedure [facility] Cardiology Clinic [address] [place] [address] 06/03/2024 9:00 EST Office Visit [facility] Cardiology Clinic [address] [place] [address] Claire Lopez NP 130 [facility] [address] [place] [phone] documented as of this encounter Visit Diagnoses Not on filedocumented in this encounter Care Teams Heavy Mobile Equipment Operator Relationship Specialty Start Date End Date Dereck Schultz MD PCP - General 04/07/19 04/04/20 Layne Cai MD [address] [place] [phone] PCP - General 04/05/20 12/16/23 documented as of this encounter
--- OUTSIDE RECORDS SUMMARY | 2024-01-09 01:54 | XMS_ITS | Encounter Summary ---
Author Organization [facility] Address [address] [place] [address] Care Team Providers Care Trade Show Manager Name Role Phone Dereck Schultz MD Primary Care Provider U vinnyailpiero Encounter Details Date Type Department Care Team (Late st Contact Info) Description 05/10/2014 Phlebotomy Only [address] [phone] Barrel Scraper, Outpatient Inflammatory arthritis; Pain in joint, multiple sites Social History Tobacco Use Types Packs/Day Years [...] Functional Status Cognitive Status Response Date of Assessm ent Because of a physical, menta l, or emotional condition, do you have serious difficulty concentrating, remembering, or making decisions? (5 years old or older) Yes 04/08/2012 documented as of this encounter Plan of Treatment Upcoming Encounters Date Type Department Care Team (Late st Contact Info) Description 04/09/2024 16:30 EDT Office Visit [facility] Hematology & Oncology [address] [address] Erin Barillas MD 111 [facility], [facility], Level [address] [place] [phone] 05/18/2024 10:[address] [facility] Rheumatology & Immunology - [facility] [address] [place], [place] [phone] Tod Perez NP 111 [facility], [address] [place] [phone] 06/03/2024 9:00 EST Ancillary Procedure [facility] [address] [place] [address] [phone] 06/03/2024 9:00 EST Office Visit [facility] [address] [place] [address] [phone] Claire Lopez NP 130 [facility] [address] [place] [phone] documented as of this encounter Procedures Procedure Name Priority Date/Time Associated Diagnosis Comments SS-B (LA) ANTIBODY, IGG Routine 05/10/2014 15:37 EST Inflammatory arthritis Pain in joint, multiple sites ZZHN SSA ANTIBODIES BY YUE Routine 05/10/2014 15:37 EST Inflammatory arthritis Pain in joint, multiple sites URINALYSIS WITH MICROSCOPIC IF POSITIVE Routine 05/10/2014 15:37 EST Inflammatory arthritis Pain in joint, multiple sites HEPATITIS C AB W REFLEX TO HCV RNA BY PCR Routine 05/10/2014 15:37 EST Inflammatory arthritis Pain in joint, multiple sites DOUBLE STRANDED DNA ANTIBODY, IGG Routine 05/10/2014 15:37 EST Inflammatory arthritis Pain in joint, multiple sites HEPATITIS B SURFACE ANTIGEN Routine 05/10/2014 15:37 EST Inflammatory arthritis Pain in joint, multiple sites ANCA, IFA Routine 05/10/2014 15:37 EST Inflammatory arthritis Pain in joint, multiple sites SED RATE Routine 05/10/2014 15:37 EST Inflammatory arthritis Pain in joint, multiple sites COMPLETE BLOOD COUNT AND DIFFERENTIAL Routine 05/10/2014 15:37 EST Inflammatory arthritis Pain in joint, multiple sites C3 COMPLEMENT Routine 05/10/2014 15:37 EST Inflammatory arthritis Pain in joint, multiple sites C4 COMPLEMENT Routine 05/10/2014 15:37 EST Inflammatory arthritis Pain in joint, multiple sites C REACTIVE PROTEIN Routine 05/10/2014 15 :37 EST Inflammatory arthritis Pain in joint, multiple sites ANTI NUCLEAR AB (AMOL), IFA Routine 05/10/2014 15:37 EST Inflammatory arthritis Pain in joint, multiple sites COMPREHENSIVE METABOLIC PANEL (CMP) Routine 05/10/2014 15:37 EST Inflammatory arthritis Pain in joint, multiple sites documented in this encounter Results * ANTI DNA (DOUBLE STRAND) (05/10/2014 15:37 EST) [facility] Anti DNA (DS) <12.3 <30 IU/mL 05/11/2014 13:17 EST [facility] Comment: The following results were obtained with the INOVA QUANTA Lite dsDNA SC Yue assay on the [employer] DSX. Blood specimen (specimen) BLOOD SPECIMEN / Unknown 05/10/2014 15:37 EST 05/10/2014 16:12 EST Major [place] MD IMMUNOLOGY AND SERTRICIA SAGASTUME ORDERABLES [facility] [address] [place] [address] * ANTI NUCLEAR ANTIBODY (05/10/2014 15:37 EST) [facility] Anti Nuclear Ab <40 0 - 40 Dils 05/11/2014 11:17 EST [facility] Blood specimen (specimen) BLOOD SPECIMEN / Unknown 05/10/2014 15:37 EST 05/10/2014 16:12 EST Major [place] MD IMMUNOLOGY AND SEROL OGY ORDERABLES Performing Organization Address [facility] de Phone Number [facility] [address] [place] [address] * ANCA (05/10/2014 15:37 EST) ANCA Neg Neg Dils 05/11/2014 11:20 EST [facility] Blood specimen (specimen) BLOOD SPECIMEN / Unknown 05/10/2014 15:37 EST 05/10/2014 16:12 EST Major [place] MD IMMUNOLOGY AND SEROL OGY ORDERABLES Performing Organization Address [facility] de Phone Number [facility] [address] [place] [address] * HEPATITIS C ANTIBODY (05/10/2014 15:37 EST) Hepatitis C Ab Negative 05/11/2014 11:24 EST [facility] Comment:Reference Range: Neg ative Blood specimen (specimen) BLOOD SPECIMEN / Unknown 05/10/2014 15:37 EST 05/10/2014 16:12 EST Major [place] MD CHEMISTRY & BLOOD GA S ORDERABLES Performing Organization Address [facility] de Phone Number [facility] [address] [place] [address] * HEPATITIS B SURFACE ANTIGEN (05/10/2014 15:37 EST) Hepatitis B Surface Ag Negative 05/11/2014 11:11 EST [facility] Comment:Reference Range: Neg ative Blood specimen (specimen) BLOOD SPECIMEN / Unknown 05/10/2014 15:37 EST 05/10/2014 16:12 EST Major [place] MD CHEMISTRY & BLOOD GA S ORDERABLES Performing Organization Address City/[facility]/ZIP Co de Phone Number [facility] [address] [place] [address] * SED. RATE:WESTERGREN (05/10/2014 15:37 EST) Pathologist [facility] Sed. Rate Westergren 5 0 - 20 mm/hr 05/10/2014 16:19 EST [facility] Blood specimen (specimen) BLOOD SPECIMEN / Unknown 05/10/2014 15:37 EST 05/10/2014 16:12 EST Major [place] MD HEMATOLOGY & PF4 ORD ERABLES Performing Organization Address City/[facility] Co de Phone Number [facility] [address] [place] [address] * (ABNORMAL) C-REACTIVE PROTEIN (05/10/2014 15:37 EST) Pathologist [facility] C-Reactive Protein 2.9(H) <1.0 mg/dl 05/10/2014 17:01 EST [facility] Blood specimen (specimen) BLOOD SPECIMEN / Unknown 05/10/2014 15:37 EST 05/10/2014 16:12 EST Major [place] MD CHEMISTRY & BLOOD GA S ORDERABLES Performing Organization Address [facility] Co de Phone Number [facility] [address] [place] [address] * (ABNORMAL) HEMAGRAM AND DIFFERENTIAL (05/10/2014 15:37 EST) Pathologist [facility] WBC 7.48 4.0 - 10.4 K/cmm 05/10/2014 16:26 [facility] RBC 4.91 4.36 - 5.78 M/cmm 05/10/2014 16:26 [facility] Hemoglobin 14.4 13.8 - 17.3 gm/dl 05/10/2014 16:26 [facility] HCT 43.3 39.5 - 50.2 % 05/10/2014 16:26 [facility] MCV 88 81 - 95 fl 05/10/2014 16:26 [facility] MCH 29.4 27.6 - 33.0 pg 05/10/2014 16:26 [facility] MCHC 33.3 32.8 - 36.4 gm/dl 05/10/2014 16:26 [facility] PLT 220 141 - 320 K/cmm 05/10/2014 16:26 [facility] RDW-CV 14.5(H) 11.8 - 14.1 % 05/10/2014 16:26 [facility] % Neutrophils 74.2 45.5 - 79.7 % 05/10/2014 16:26 [facility] % Lymphocytes 17.0 15.0 - 46.8 % 05/10/2014 16:26 [facility] % Monocytes 8.0 1.8 - 12.0 % 05/10/2014 16:26 [facility] % Eosinophils 0.3(L) 0.6 - 6.9 % 05/10/2014 16:26 [facility] % Basophils 0.5 0.2 - 1.4 % 05/10/2014 16:26 [facility] ABS Neutrophils 5.54 2.20 - 8.85 K/cmm 05/10/2014 16:26 [facility] ABS Lymphs 1.27 1.09 - 3.30 K/cmm 05/10/2014 16:26 [facility] ABS Monocytes 0.60 0.1 - 0.8 K/cmm 05/10/2014 16:26 [facility] ABS Eosinophils 0.02(L) 0.03 - 0.61 K/cmm 05/10/2014 16:26 [facility] ABS Basophils 0.04 0.01 - 0.11 K/cmm 05/10/2014 16:26 [facility] Type of Diff: Automated 05/10/2014 16:26 [facility] Blood specimen (specimen) BLOOD SPECIMEN / Unknown 05/10/2014 15:37 EST 05/10/2014 16:12 EST Major [place] MD PACKAGES & DNA PROBE ORDERABLES [facility] [address] [place] [address] * (ABNORMAL) COMPREHENSIVE METABOLIC PANEL (CMP) (05/10/2014 15:37 [facility]) Potassium 4.7 3.5 - 5.0 mEq/L 05/10/2014 17:01 [facility] Sodium 141 136 - 145 mEq/L 05/10/2014 17:01 [facility] Chloride 105 96 - 110 mEq/L 05/10/2014 17:01 [facility] CO2 25 24 - 32 mEq/L 05/10/2014 17:01 [facility] Total Alkaline Phosphatase 62 38 - 126 U/L 05/10/2014 17:01 [facility] Bilirubin, Total <0.5 <1.4 mg/dl 05/10/20 14 17:01 [facility] AST 22 15 - 46 U/L 05/10/2014 17:01 [facility] ALT 32 21 - 72 U/L 05/10/2014 17:01 [facility] Albumin 4.5 3.4 - 4.9 g/dl 05/10/2014 17:01 [facility] Total Protein 6.8 6.5 - 8.3 g/dl 05/10/2014 17:01 [facility] Creatinine 0.90 0.66 - 1.25 mg/dl 05/10/2014 17:01 [facility] GFR, Calculated >60 >60 ml/min/1.7 3m2 05/10/2014 17:01 [facility] BUN 25 10 - 26 mg/dl 05/10/2014 17:01 [facility] Calcium 9.9 8.5 - 10.5 mg/dl 05/10/2014 17:01 [facility] Calculated Calcium 9.8 8.5 - 10.5 mg/dl 05/10/2014 17:01 [facility] Glucose, Serum 134(H) 70 - 100 mg/dl 05/10/2014 17:01 [facility] Fasting? Unknown 05/10/2014 15:37 EST [facility] Blood specimen (specimen) BLOOD SPECIMEN / Unknown 05/10/2014 15:37 EST 05/10/2014 16:12 EST Major [place] MD CHEMISTRY & BLOOD GA S ORDERABLES Performing Organization Address [facility] Co de Phone Number [facility] [address] [place] [address] * SS-B/LA ANTIBODY, IGG, SERUM (05/10/2014 15:37 EST) SS B/La Ab, IgG, S <0.2 <1.0 (Negative) U 05/11/2014 14:01 EST [facility] Blood specimen (specimen) BLOOD SPECIMEN / Unknown 05/10/2014 15:37 EST 05/10/2014 16:12 EST Major [place] MD IMMUNOLOGY AND SEROL OGY ORDERABLES Performing Organization Address [facility] Co de Phone Number [facility] [address] [place] [address] * SS-A/RO ANTIBODY, IGG, SERUM (05/10/2014 15:37 EST) SS A/Ro Ab, IgG, S 0.3 <1.0 (Negative) U 05/11/2014 14:01 EST [facility] Blood specimen (specimen) BLOOD SPECIMEN / Unknown 05/10/2014 15:37 EST 05/10/2014 16:12 EST Major [place] MD IMMUNOLOGY AND SEROL OGY ORDERABLES Performing Organization Address City/[facility] Co de Phone Number [facility] [address] [place] [address] * (ABNORMAL) URINALYSIS (05/10/2014 15:37 EST) Color, UA Yellow 05/10/2014 18:06 EST [facility] Clarity, UA Clear 05/10/2014 18:06 EST [facility] Glucose, UA Neg Neg 05/10/2014 18:06 [facility] Bilirubin, UA Neg Neg 05/10/2014 18:06 [facility] Ketones, UA Neg Neg 05/10/2014 18:06 [facility] Specific [place], Urine 1.025 1.001 - 1.035 05/10/2014 18:06 [facility] Blood, UA 2+(A) Neg 05/10/2014 18:06 [facility] pH, UA 5.5 4.6 - 8.0 05/10/2014 18:06 [facility] Protein, UA Neg Neg 05/10/2014 18:06 [facility] Urobilinogen, UA 0.2 0.2 - 1.0 E.U./dl 05/10/2014 18:06 [facility] Nitrite, UA Neg Neg 05/10/2014 18:06 [facility] Leuk Esterase Neg Neg 05/10/2014 18:06 [facility] Urine specimen (specimen) URINE / Unknown 05/10/2014 15:37 EST 05/10/2014 17:19 EST Major [place] MD URINALYSIS ORDERABLE S Performing Organization Address [facility] Co de Phone Number [facility] [address] [place] [address] * C4 COMPLEMENT (05/10/2014 15:37 EST) C4 Complement 27 16 - 38 mg/dl 05/11/2014 11:23 [facility] Blood specimen (specimen) BLOOD SPECIMEN / Unknown 05/10/2014 15:37 EST 05/10/2014 16:12 EST Major [place] MD CHEMISTRY & BLOOD GA S ORDERABLES Performing Organization Address [facility] Co de Phone Number [facility] [address] [place] [address] * C3 COMPLEMENT (05/10/2014 15:37 EST) C3 Complement 135 79 - 152 mg/dl 05/11/2014 11:23 [facility] Blood specimen (specimen) BLOOD SPECIMEN / Unknown 05/10/2014 15:37 EST 05/10/2014 16:12 EST Major [place] MD CHEMISTRY & BLOOD GA S ORDERABLES [facility] [address] [place] [address] documented in this encounter Visit Diagnoses Diagnosis Inflammatory arthritis Unspecified inflammatory polyarthropathy Pain in joint, multiple sites documented in this encounter Care Teams Trade Show Manager Relationship Specialty Start Date End Date Dereck [place] MD PCP - General 10/19/08 02/12/17 documented as of this encounter
--- OUTSIDE RECORDS SUMMARY | 2024-01-09 01:54 | XMS_ITS | Encounter Summary ---
Author Organization [facility] Address [address] [place] [address] Care Team Providers Care Industrial Engineering Technologist Name Role Phone Dereck Sch[place] MD Primary Care Provider Anselmo mora Encounter Details Date Type Department Care Team (Late st Contact Info) Description 10/23/2016 Results Only [facility] [phone] Shreya Lea MD [address] [place] [address] [phone] Social History Tobacco Use Types Packs/Day Years [...] No 09/24/2016 documented as of this encounter Plan of Treatment Upcoming Encounters Date Type Department Care Team (Late st Contact Info) Description 04/09/2024 16:30 EDT Office Visit [facility] Hematology & Oncology - [address] [phone] Erin [place] MD 111 [facility], [facility] [address] [place] [phone] 05/18/2024 10:00 EST Office Visit [facility] Rheumatology & Immunology - [address] [phone] [place] NP [address] [place] [address], [facility] [address] [place] [phone] 06/03/2024 9:00 EST Ancillary Procedure [facility] [address] [place] [address] [phone] 06/03/2024 9:00 EST [facility] [address] [place] [address] [phone] Claire [place] NP [address] [place] [address]-A [address] [place] [phone] documented as of this encounter Procedures Procedure Name Priority Date/Time Associated Diagnosis Comments SURGICAL PATHOLOGY Routine 10/23/2016 18 :29 EDT documented in this encounter Results * SURGICAL PATHOLOGY (10/23/2016 18:29 EDT) Pathology Report: SURGICAL PATHOLOGY REPORT Reports generated via electronic interface contain original data; however they are lacking the format of the original report. Caution should be taken when reading/interpret ing unformatted reports. Name: ? MONICA DEON Jeong ? Accession #: ? [id number] ? : ? 1945 (Age: 71) ??M ? Collect Date: ? 10/23/2016 ? Location: ? [facility] ? Receive Date: ? 10/24/2016 ? Provider: SHREYA LEA MD Copy to: MINDY SZYMANSKI [employer]ORY WORKER ? Final Pathologic Diagnosis: A. ??GASTROESOPHAGEA L JUNCITON, BIOPSY: - Squamocolumnar junctional mucosa with [...] Moscoso 10/25/2016 7:55 AM End of Report [facility] 10/23/2016 18:2 9 EDT 10/24/2016 18:29 EDT Shreya Lea MD PATHOLOGY ORDERA KANDIS [facility] [address] [place] [address] documented in this encounter Visit Diagnoses Not on filedocumented in this encounter Care Teams Industrial Engineering Technologist Relationship Specialty Start Date End Date Dereck Schultz MD PCP - General 10/19/08 02/12/17 documented as of this encounter
--- OUTSIDE RECORDS SUMMARY | 2024-01-09 01:54 | XMS_ITS | Encounter Summary ---
Author Organization [facility] Address [address] [place] [address] Care Team Providers Care Trimmer Sawyer Name Role Phone Dereck Schultz MD Primary Care Provider U navailable Reason for Visit * Reason Comments Other Encounter Details Date Type Department Care Team (Late st Contact Info) Description 03/17/2014 Refill [facility] Rheumatology & Immunology - [facility] [address] [place] [address] Major [place] MD Other Social History Tobacco Use Types Packs/Day [...] Yes 04/08/2012 documented as of this encounter Ordered Prescriptions Prescription Sig Dispensed Refills Start Date End Da te gabapentin (NEURONTIN) 100 mg capsule Take 2 Caps by mouth 3 times daily. 180 Cap 5 03/18/2014 06/23/2014 documented in this encounter Miscellaneous Notes * [...] [facility] Hematology & Oncology [address] [address] Erin [place] MD [address] [place] [address] 2 [place] [phone] 05/18/2024 10:00 EST Office Visit [facility] Rheumatology & Immunology [address] [address] [place] NP [address] [place] [address] 5 [place] [phone] 06/03/2024 9:00 EST Ancillary Procedure [facility] [address] [place] [address] [phone] 06/03/2024 9:00 EST Office Visit [facility] [address] [place] [address] [phone] Claire [place] NP [address] [place] [address]-A [address] [phone] documented as of this encounter Visit Diagnoses Not on filedocumented in this encounter Discontinued Medications Medication Sig Discontinue Reason Start Date End Da te gabapentin (NEURONTIN) 100 mg capsule 1 tablet at bedtime for 4 days, then 1 bid for 4 days then 1 tid; after 2 weeks increase to 2 tid. Reorder 01/03/2014 03/17/2014 documented as of this encounter Care Teams Trimmer Sawyer Relationship Specialty Start Date End Date Dereck Schultz MD PCP - General 10/19/08 02/12/17 documented as of this encounter
--- OUTSIDE RECORDS SUMMARY | 2024-01-09 01:54 | XMS_ITS | Encounter Summary ---
Author Organization [facility] Address [address] [place] [address] Care Team Providers Care Installation And Repair Technician Name Role Phone Dereck Schultz MD Primary Care Provider U navailable Reason for Visit * Reason Onset Date Comments Medications Refill 06/04/2014 Encounter Details Date Type Department Care Team (Late st Contact Info) Description 06/04/2014 Refill [facility] Rheumatology & Immunology - [facility] [address] [place] [address] Major [place] MD Medications Refill Social History Tobacco Use Types [...] Da te predniSONE (DELTASONE) 5 mg tablet 3 daily or as directed by taper. 90 Tab 1 06/06/2014 09/14/2014 gabapentin (NEURONTIN) 400 mg capsule Take 1 Cap by mouth 3 times daily. 90 Cap 5 06/06/2014 12/05/2014 documented in this encounter Miscellaneous Notes * Telephone Encounter - Zari Mccabe RN - 06/06/2014 0854 EST Spoke with pt's . I advised her that I would send in a new RX for 400mg Gabapentin Caps. He will take one cap three times a day. He will keep his follow up for Jun. * Telephone Encounter - Zari Mccabe RN - 06/06/2014 0831 ESTFrom: Praneeth Villanueva To: Major [place] MD Sent: 06/04/2014 12:55 EST Subject: Medication Renewal Request Original authorizing provider: MD Praneeth Odom would like a refill of the following medications: gabapentin (NEURONTIN) 100 mg capsule [Major [place] MD] Preferred pharmacy: [facility] [place] [address] Comment: Praneeth is taking 400 mg 3x/day. [...] [facility] [address] [phone] Erin [place]illas MD [address] [place] [address], [address] [place] [phone] 05/18/2024 10:00 EST Office Visit [facility] Rheumatology & Immunology - [address] [phone] Tod [place] NP 111 [facility], [address] [place] [phone] 06/03/2024 9:00 EST Ancillary Procedure [facility] [address] [place] [address] 06/03/2024 9:00 EST Office Visit [facility] [address] [place] [address] Claire [place] NP 130 [facility] [address] [address] [place] [phone] documented as of this encounter Visit Diagnoses Not on filedocumented in this encounter Discontinued Medications Medication Sig Discontinue Reason Start Date End Da te predniSONE (DELTASONE) 5 mg tablet 1 daily or as directed. Reorder 02/07/2014 06/06/2014 documented as of this encounter Care Teams Installation And Repair Technician Relationship Specialty Start Date End Date Dereck Schultz MD PCP - General 10/19/08 02/12/17 documented as of this encounter
--- OUTSIDE RECORDS SUMMARY | 2024-01-09 01:54 | XMS_ITS | Encounter Summary ---
Author Organization [facility] Address [address] [place] [address] Care Team Providers Care Oxygen Equipment Aide Name Role Phone Dereck Schultz MD Primary Care Provider U morgan Encounter Details Date Type Department Care Team (Late st Contact Info) Description 03/29/2015 Phlebotomy Only [facility] [address] [place] [address] Sales Coach, Outpatient Inflammatory arthritis; Encounter for long-term (current) use of [...] visiting a doctor's office or shopping? No 03/29/2015 Cognitive Status Response Date of Assessm ent Because of a physical, menta l, or emotional condition, does this person have serious difficulty concentrating, remembering, or making decisions? No 03/29/2015 documented as of this encounter Plan of Treatment Upcoming Encounters Date Type Department Care Team (Late st Contact Info) Description 04/09/2024 16:30 EDT Office Visit [facility] Hematology & Oncology - [address] [phone] Erin Barillas MD 111 [facility] [place] [address] [place] [phone] 05/18/2024 10:00 EST Office Visit [facility] Rheumatology & Immunology - [address] [phone] Tod Perez NP [address] [place] [address], [place] [address] [place] [phone] 06/03/2024 9:00 EST Ancillary Procedure [facility] [address] [place] [address] [phone] 06/03/2024 9:00 EST Office Visit [facility] [address] [place] [address] [phone] Claire Lopez NP [address] [place] [address] [address] [place] [phone] documented as of this encounter Procedures Procedure Name Priority Date/Time Associated Diagnosis Comments COMPLETE BLOOD COUNT AND DIFFERENTIAL Routine 03/29/2015 10:13 EDT Inflammatory arthritis Encounter for long-term (current) use of medications COMPREHENSIVE METABOLIC PANEL (CMP) Routine 03/29/2015 10:13 EDT Inflammatory arthritis Encounter for long-term (current) use of medications documented in this encounter Results * (ABNORMAL) COMPREHENSIVE METABOLIC PANEL (CMP) (03/29/2015 10:13 EDT) Potassium 4.3 3.5 - 5.0 mEq/L 03/29/2015 11:01 EDT [facility] Sodium 139 136 - 145 mEq/L 03/29/2015 11:01 [facility] Chloride 104 96 - 110 mEq/L 03/29/2015 11:01 [facility] CO2 25 24 - 32 mEq/L 03/29/2015 11:01 [facility] Total Alkaline Phosphatase 62 38 - 126 U/L 03/29/2015 11:01 [facility] Bilirubin, Total 0.5 <1.4 mg/dl 03/29/20 15 11:01 [facility] AST 14(L) 15 - 46 U/L 03/29/2015 11:01 [facility] ALT 33 21 - 72 U/L 03/29/2015 11:01 [facility] Albumin 4.1 3.4 - 4.9 g/dl 03/29/2015 11:01 [facility] Total Protein 6.1(L) 6.3 - 8.2 g/dl 03/29/2015 11:01 [facility] Creatinine 0.90 0.66 - 1.25 mg/dl 03/29/2015 11:01 [facility] GFR, Calculated 86 >60 ml/min/1.7 3m2 03/29/2015 11:01 [facility] Comment: eGFR calculated using CKD-EPI equation for non Americans. Multiply eGFR by 1.16 for Americans. BUN 13 10 - 26 mg/dl 03/29/2015 11:01 [facility] Calcium 9.0 8.5 - 10.5 mg/dl 03/29/2015 11:01 [facility] Calculated Calcium 9.3 8.5 - 10.5 mg/dl 03/29/2015 11:01 [facility] Glucose, Serum 93 70 - 100 mg/dl 03/29/2015 11:01 [facility] Fasting? No 03/29/2015 10:13 [facility] Blood specimen (specimen) BLOOD SPECIMEN / Unknown 03/29/2015 10:13 EDT 03/29/2015 10:23 EDT Marie Stanford PA-C CHEMISTRY & BLOOD GAS ORDERABLES [facility] [address] [place] [address] * (ABNORMAL) HEMAGRAM AND DIFFERENTIAL (03/29/2015 10:13 EDT) WBC 7.21 4.0 - 10.4 K/cmm 03/29/2015 10:52 EDT [facility] RBC 4.89 4.36 - 5.78 M/cmm 03/29/2015 10:52 [facility] Hemoglobin 14.6 13.8 - 17.3 gm/dl 03/29/2015 10:52 [facility] HCT 44.5 39.5 - 50.2 % 03/29/2015 10:52 [facility] MCV 91 81 - 95 fl 03/29/2015 10:52 [facility] MCH 29.9 27.6 - 33.0 pg 03/29/2015 10:52 [facility] MCHC 32.9 32.8 - 36.4 gm/dl 03/29/2015 10:52 [facility] RDW-CV 15.5(H) 11.8 - 14.1 % 03/29/2015 10:52 [facility] RDW-SD 48.6(H) 36.5 - 45.9 fl 03/29/2015 10:52 [facility] PLT 219 141 - 320 K/cmm 03/29/2015 10:52 [facility] MPV 10.1 7.5 - 11.2 fl 03/29/2015 10:52 [facility] % Neutrophils 66.1 45.5 - 79.7 % 03/29/2015 10:52 [facility] % Lymphocytes 25.6 15.0 - 46.8 % 03/29/2015 10:52 [facility] % Monocytes 6.7 1.8 - 12.0 % 03/29/2015 10:52 [facility] % Eosinophils 1.0 0.6 - 6.9 % 03/29/2015 10:52 EDT [facility] % Basophils 0.6 0.2 - 1.4 % 03/29/2015 10:52 T [facility] ABS Neutrophils 4.76 2.20 - 8.85 K/cmm 03/29/2015 10:52 T [facility] ABS Lymphs 1.84 1.09 - 3.30 K/cmm 03/29/2015 10:52 EDT [facility] ABS Monocytes 0.49 0.1 - 0.8 K/cmm 03/29/2015 10:52 T [facility] ABS Eosinophils 0.08 0.03 - 0.61 K/cmm 03/29/2015 10:52 [facility] ABS Basophils 0.04 0.01 - 0.11 K/cmm 03/29/2015 10:52 [facility] Type of Diff: Automated 03/29/2015 10:52 [facility] Blood specimen (specimen) BLOOD SPECIMEN / Unknown 03/29/2015 10:13 EDT 03/29/2015 10:23 EDT Marie Stanford PA-C PACKAGES & DNA PRO BE ORDERABLES [facility] [address] [place] [address] documented in this encounter Visit Diagnoses Diagnosis Inflammatory arthritis Unspecified inflammatory polyarthropathy Encounter for long-term (current) use of medications Encounter for long-term (current) use of other medications documented in this encounter Orders Lab Orders Without Results Count Last Ordered D ate First Ordered Date COMPREHENSIVE METABOLIC PANEL (CMP) 1 03/29 HEMAGRAM AND DIFFERENTIAL 1 03/29/2015 documented in this encounter Care Teams Oxygen Equipment Aide Relationship Specialty Start Date End Date Dereck Schultz MD PCP - General 10/19/08 02/12/17 documented as of this encounter
--- OUTSIDE RECORDS SUMMARY | 2024-01-09 01:54 | XMS_ITS | Encounter Summary ---
Author Organization [facility] Address [address] [place] [address] Care Team Providers Care [employer] Fitness Instructor Name Role Phone Dereck Schultz MD Primary Care Provider U navailable Reason for Visit * Reason Onset Date Comments Medications Refill 08/11/2016 Encounter Details Date Type Department Care Team (Late st Contact Info) Description 08/11/[address] [facility] Rheumatology & Immunology - [facility] [address] [place] [address] Marie Stanford PA-C [address] [place] [address] Medications Refill Social History Tobacco Use Types [...] visiting a doctor's office or shopping? No 12/27/2015 Cognitive Status Response Date of Assessm ent Because of a physical, menta l, or emotional condition, does this person have serious difficulty concentrating, remembering, or making decisions? No 12/27/2015 documented as of this encounter Ordered Prescriptions Prescription Sig Dispensed Refills Start Date End Da te methotrexate 2.5 mg tablet Take 8 Tabs by mouth once a week. 96 Tab 08/12/2016 11/04/2016 documented in this encounter Miscellaneous Notes * Telephone Encounter - Zari Mccabe RN - 08/12/2016 09 ESTFrom: Praneeth Villanueva To: Marie Stanford PA Sent: 08/11/2016 11:08 EST Subject: Medication Renewal Request Original authorizing provider: ALMA Bills would like a refill of the following medications: methotrexate 2.5 mg tablet [ALMA Bills] Preferred pharmacy: [id number] Comment: documented in this encounter Plan of Treatment Upcoming Encounters Date Type Department Care Team (Late st Contact Info) Description 04/09/2024 16:30 EDT Office Visit [facility] Hematology & Oncology - [address] [phone] Erin Barillas MD 111 [facility] 2 [place] [phone] 05/18/2024 10:00 EST Office Visit [facility] Rheumatology & Immunology - [address] [phone] Tod Perez NP 111 [facility] 5 [place] [phone] 06/03/2024 9:[address] [facility] [address] [place] [address] [id number] 06/03/2024 9:00 EST Office Visit [facility] [address] [place], [place] [address] Claire Lopez NP 130 [facility] [address] [place] [phone] documented as of this encounter Visit Diagnoses Not on filedocumented in this encounter Discontinued Medications Medication Sig Discontinue Reason Start Date End Da te methotrexate 2.5 mg tablet Take 8 Tabs by mouth once a week. Reorder 12/08/2015 08/11/2016 documented as of this encounter Care Teams Aquatics Group Fitness Instructor Relationship Specialty Start Date End Date Dereck Schultz MD PCP - General 10/19/08 02/12/17 documented as of this encounter
--- OUTSIDE RECORDS SUMMARY | 2024-01-09 01:54 | XMS_ITS | Encounter Summary ---
Author Organization [facility] Address [address] [place] [address] Care Team Providers Care Slp Teacher Name Role Phone Dereck Schultz MD Primary Care Provider U navailable Reason for Visit * Reason Comments Other Encounter Details Date Type Department Care Team (Late st Contact Info) Description 12/03/2014 Refill [facility] Rheumatology & Immunology [address] [address] Major Turner MD Other Social History Tobacco [...] Visit [facility] Hematology & Oncology [address] [phone] Erin Barillas MD 111 [facility] 2 [place] [phone] 05/18/2024 10:00 EST Office Visit [facility] Rheumatology & Immunology - [address] [phone] Tod Perez NP 111 [facility] 5 [place] [phone] 06/03/2024 9:00 EST Ancillary Procedure [facility] [address] [place] [address] [id number] 06/03/2024 9:00 EST Office Visit [facility] [address] [place] [phone] Claire Lopez NP [address] [place] [address] [place] [phone] documented as of this encounter Visit Diagnoses Not on filedocumented in this encounter Care Teams Slp Teacher Relationship Specialty Start Date End Date Dereck Schultz MD PCP - General 10/19/08 02/12/17 documented as of this encounter
--- OUTSIDE RECORDS SUMMARY | 2024-01-09 01:54 | XMS_ITS | Encounter Summary ---
Author Organization [facility] Address [address] [place] [address] Care Team Providers Care Wound Care Coordinator Name Role Phone Dereck Schultz MD Primary Care Provider U morgan Encounter Details Date Type Department Care Team (Late st Contact Info) Description 12/19/2014 Orders Only [facility] Rheumatology & Immunology - [facility] [address] [place] [address] Marie Stanford, PADomingaC [address] [place], [place] [phone] Inflammatory arthropathy (Primary Dx) Social History Tobacco Use Types [...] Yes 04/08/2012 documented as of this encounter Progress Notes * Desire Adrian RN - 12/19/2014 [id number] EDT Asked by LEONEL padilla to add on CBC with diff and CMP to pt's labs drawn today at [facility]. Spoke with [facility]. They are not able to add CBC with diff because no purple top drawn. Order for CMP faxed to [phone] with confirmation of successful transmission page received. documented in this encounter Plan of Treatment Upcoming Encounters Date Type Department Care Team (Late st Contact Info) Description 04/09/2024 16:30 EDT Office Visit [facility] Hematology & Oncology - [address] [phone] Erin Barillas MD [address] [place] [address] 2 [place] [phone] 05/18/2024 10:00 EST Office Visit [facility] Rheumatology & Immunology [address] [phone] Tod Perez NP [address] [place] [address] 5 [place] [phone] 06/03/2024 9:00 EST Ancillary Procedure [facility] [address] [place] [phone] 06/03/2024 9:00 EST Office Visit [facility] [address] [place] [phone] Claire Lopez NP [address] [place] [address]-[address] [place] [phone] documented as of this encounter Procedures Procedure Name Priority Date/Time Associated Diagnosis Comments OUTPATIENT ADD-ON STAT 12/19/2014 16: 46 EDT Inflammatory arthropathy documented in this encounter Results * OUTPATIENT ADD-ON (12/19/2014 16:46 EDT) Tests to be added CMP 12/19/2014 16:47 EDT [facility] Diagnosis Code SEE PRISM 12/19/2014 17:00 EDT [facility] Number for problems 802 12/19/2014 16:47 EDT [facility] Comment: [phone] Accession number CALLED RHEUM WITH INABILITY TO ADD ON CMP DUE TO NOT HAVING A SAMPLE SPOKE WITH LOW 12/19/2014 17:00 EDT [facility] Acknowledge ABP Done 17:00 EDT [facility] BLOOD SPECIMEN / Unknown 12/19/2014 16:46 EDT 12/19/2014 17:00 EDT Marie Stanford PA-C HEMATOLOGY & PF4 O RDERABLES [facility] [address] [place] [address] documented in this encounter Visit Diagnoses Diagnosis Inflammatory arthropathy- Primary Arthropathy, unspecified, site unspecified documented in this encounter Care Teams Wound Care Coordinator Relationship Specialty Start Date End Date Dereck Schultz MD PCP - General 10/19/08 02/12/17 documented as of this encounter
--- OUTSIDE RECORDS SUMMARY | 2024-01-09 01:54 | XMS_ITS | Encounter Summary ---
Author Organization [facility] Address [address] [place] [address] Care Team Providers Care Director Of Market Research Name Role Phone Dereck Schultz MD Primary Care Provider U navailable Reason for Visit * Reason Comments Joint Pain shoulders Encounter Details Date Type Department Care Team (Latest Contact Info) Description 05/10/2014 15:45 EST Office Visit [facility] Rheumatology & Immunology - [facility] [address] [place] [address] Major Turner MD Inflammatory arthritis (Primary Dx); Pain in joint, multiple sites Social History [...] Yes 04/08/2012 documented as of this encounter Discharge Diagnoses Diagnosis 714.9 INFLAMM POLYARTHROP NOS[ICD-9-CM] 719.49 JOINT PAIN-MULT JTS[ICD-9-CM] documented in this encounter Ordered Prescriptions Prescription Sig Dispensed Refills Start Date End Da te folic acid (FOLVITE) 1 mg tablet Take 1 Tab by mouth daily. 100 Tab 3 05/10/2014 12/19/2014 methotrexate 2.5 mg tablet 4 tablets once a week. 20 Tab 3 05/10/2014 05/30/2014 documented in this encounter Progress Notes * Major Turner MD - 05/10/2014 6343 EST Division of Rheumatology and Clinical Immunology [...] a steroid injection in his left shoulder, whichhelped for a few days. 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 Lungs clear to auscultation.Heart regular rate and rhythm without murmur, rub [...] without significant pain. Shoulders revealed mild to moderatepain with abduction at 60 to 70 degrees. [...] Office Visit [facility] Hematology & Oncology - [address] [address] Erin Barillas MD [address] [place] [address], [facility], [address] [place] [phone] 05/18/2024 10:00 EST Office Visit [facility] Rheumatology & Immunology - [facility] [address] [place], [place] [phone] Tod Perez NP [address] [facility], [facility], [address] [place] [phone] 06/03/2024 9:00 EST Ancillary Procedure [facility] [address] [place] [address] 06/03/2024 9:00 EST Office Visit [facility] [address] [place] [address] Claire Lopez NP 130 [facility] [address] [place] [address] documented as of this encounter Results * SS-B/LA ANTIBODY, IGG, SERUM (05/10/2014 15:37 EST) SS B/La Ab, IgG, S <0.2 <1.0 (Negative) U 05/11/2014 14:[address] [facility] Blood specimen (specimen) BLOOD SPECIMEN / Unknown 05/10/2014 15:37 EST 05/10/2014 16:12 EST Major Turner MD IMMUNOLOGY AND SERTRICIA SAGASTUME ORDERABLES [facility] [address] [place] [address] * SS-A/RO ANTIBODY, IGG, SERUM (05/10/2014 15:37 EST) SS A/Ro Ab, IgG, S 0.3 <1.0 (Negative) U 05/11/2014 14:[address] [facility] Blood specimen (specimen) BLOOD SPECIMEN / Unknown 05/10/2014 15:37 EST 05/10/2014 16:12 EST Major Turner MD IMMUNOLOGY AND SEROL TRELLY ORDERABLES Performing Organization Address City/[facility]/ZIP Co de Phone Number [facility] [address] [place] [address] * (ABNORMAL) URINALYSIS (05/10/2014 15:37 EST) Color, UA Yellow 05/10/2014 18:06 [facility] Clarity, UA Clear 05/10/2014 18:06 [facility] Glucose, UA Neg Neg 05/10/2014 18:06 [facility] Bilirubin, UA Neg Neg 05/10/2014 18:06 [facility] Ketones, UA Neg Neg 05/10/2014 18:06 [facility] Specific [employer], Urine 1.025 1.001 - 1.035 05/10/2014 18:06 [facility] Blood, UA 2+(A) Neg 05/10/2014 18:06 [facility] pH, UA 5.5 4.6 - 8.0 05/10/2014 18:06 [facility] Protein, UA Neg Neg 05/10/2014 18:06 [facility] Urobilinogen, UA 0.2 0.2 - 1.0 E.U./dl 05/10/2014 18:06 [facility] Nitrite, UA Neg Neg 05/10/2014 18:06 [facility] Leuk Esterase Neg Neg 05/10/2014 18:06 [facility] Urine specimen (specimen) URINE / Unknown 05/10/2014 15:37 EST 05/10/2014 17:19 EST Major Turner MD URINALYSIS ORDERABLE S Performing Organization Address [facility]/ZIP Co de Phone Number [facility] [address] [place] [address] * C4 COMPLEMENT (05/10/2014 15:37 EST) C4 Complement 27 16 - 38 mg/dl 05/11/2014 11:[address] [facility] Blood specimen (specimen) BLOOD SPECIMEN / Unknown 05/10/2014 15:37 EST 05/10/2014 16:12 EST Major Turner MD CHEMISTRY & BLOOD GA S ORDERABLES Performing Organization Address [facility] Co de Phone Number [facility] [address] [place] [address] * C3 COMPLEMENT (05/10/2014 15:37 EST) C3 Complement 135 79 - 152 mg/dl 05/11/2014 11:[address] [facility] Blood specimen (specimen) BLOOD SPECIMEN / Unknown 05/10/2014 15:37 EST 05/10/2014 16:12 EST Major Turner MD CHEMISTRY & BLOOD GA S ORDERABLES Performing Organization Address [facility] de Phone Number [facility] [address] [place] [address] * ANTI DNA (DOUBLE STRAND) (05/10/2014 15:37 EST) Anti DNA (DS) <12.3 <30 IU/mL 05/11/2014 13:[address] [facility] Comment: The following results were obtained with the [employer] QUANTA Lite dsDNA SC Yue assay on the X-IO DSX. Blood specimen (specimen) BLOOD SPECIMEN / Unknown 05/10/2014 15:37 EST 05/10/2014 16:12 EST Major Turner MD IMMUNOLOGY AND SEROL OGY ORDERABLES Performing Organization Address [facility] Co de Phone Number [facility] [address] [place] [address] * ANTI NUCLEAR ANTIBODY (05/10/2014 15:37 EST) Anti Nuclear Ab <40 0 - 40 Dils 05/11/2014 11:[address] [facility] Blood specimen (specimen) BLOOD SPECIMEN / Unknown 05/10/2014 15:37 EST 05/10/2014 16:12 EST Major Turner MD IMMUNOLOGY AND SEROL OGY ORDERABLES Performing Organization Address City/[facility]/ZIP Co de Phone Number [facility] [address] [place] [address] * ANCA (05/10/2014 15:37 EST) ANCA Neg Neg Dils 05/11/2014 11:[address] [facility] Blood specimen (specimen) BLOOD SPECIMEN / Unknown 05/10/2014 15:37 EST 05/10/2014 16:12 EST Major Turner MD IMMUNOLOGY AND SEROL OGY ORDERABLES Performing Organization Address [facility] Co de Phone Number [facility] [address] [place] [address] * HEPATITIS C ANTIBODY (05/10/2014 15:37 EST) Hepatitis C Ab Negative 05/11/2014 11:[address] [facility] Comment:Reference Range: Neg ative Blood specimen (specimen) BLOOD SPECIMEN / Unknown 05/10/2014 15:37 EST 05/10/2014 16:12 EST Major Turner MD CHEMISTRY & BLOOD GA S ORDERABLES Performing Organization Address [facility] Co de Phone Number [facility] [address] [place] [address] * HEPATITIS B SURFACE ANTIGEN (05/10/2014 15:37 EST) Hepatitis B Surface Ag Negative 05/11/2014 11:[address] [facility] Comment:Reference Range: Neg ative Blood specimen (specimen) BLOOD SPECIMEN / Unknown 05/10/2014 15:37 EST 05/10/2014 16:12 EST Major Turner MD CHEMISTRY & BLOOD GA S ORDERABLES Performing Organization Address [facility] Co de Phone Number [facility] [address] [place] [address] * SED. RATE:WESTERGREN (05/10/2014 15:37 EST) Pathologist [facility] Sed. Rate Westergren 5 0 - 20 mm/hr 05/10/2014 16:19 [facility] Blood specimen (specimen) BLOOD SPECIMEN / Unknown 05/10/2014 15:37 EST 05/10/2014 16:12 EST Major Turner MD HEMATOLOGY & PF4 ORD ERABLES Performing Organization Address City/[facility] Co de Phone Number [facility] [address] [place] [address] * (ABNORMAL) C-REACTIVE PROTEIN (05/10/2014 15:37 EST) [facility] C-Reactive Protein 2.9(H) <1.0 mg/dl 05/10/2014 17:01 [facility] Blood specimen (specimen) BLOOD SPECIMEN / Unknown 05/10/2014 15:37 EST 05/10/2014 16:12 EST Major Turner MD CHEMISTRY & BLOOD GA S ORDERABLES Performing Organization Address [facility] Co de Phone Number [facility] [address] [place] [address] * (ABNORMAL) HEMAGRAM AND DIFFERENTIAL (05/10/2014 15:37 EST) [facility] WBC 7.48 4.0 - 10.4 K/cmm 05/10/2014 16:26 [facility] RBC 4.91 4.36 - 5.78 M/cmm 05/10/2014 16:26 [facility] Hemoglobin 14.4 13.8 - 17.3 gm/dl 05/10/2014 16:26 [facility] HCT 43.3 39.5 - 50.2 % 05/10/2014 16:26 [facility] MCV 88 81 - 95 fl 05/10/2014 16:26 [facility] MCH 29.4 27.6 - 33.0 pg 05/10/2014 16:26 [facility] MCHC 33.3 32.8 - 36.4 gm/dl 05/10/2014 16:26 [facility] PLT 220 141 - 320 K/cmm 05/10/2014 16:26 [facility] RDW-CV 14.5(H) 11.8 - 14.1 % 05/10/2014 16:26 [facility] % Neutrophils 74.2 45.5 - 79.7 % 05/10/2014 16:26 [facility] % Lymphocytes 17.0 15.0 - 46.8 % 05/10/2014 16:26 [facility] % Monocytes 8.0 1.8 - 12.0 % 05/10/2014 16:26 [facility] % Eosinophils 0.3(L) 0.6 - 6.9 % 05/10/2014 16:26 [facility] % Basophils 0.5 0.2 - 1.4 % 05/10/2014 16:26 [facility] ABS Neutrophils 5.54 2.20 - 8.85 K/cmm 05/10/2014 16:26 [facility] ABS Lymphs 1.27 1.09 - 3.30 K/cmm 05/10/2014 16:26 [facility] ABS Monocytes 0.60 0.1 - 0.8 K/cmm 05/10/2014 16:26 [facility] ABS Eosinophils 0.02(L) 0.03 - 0.61 K/cmm 05/10/2014 16:26 [facility] ABS Basophils 0.04 0.01 - 0.11 K/cmm 05/10/2014 16:26 [facility] Type of Diff: Automated 05/10/2014 16:26 [facility] Blood specimen (specimen) BLOOD SPECIMEN / Unknown 05/10/2014 15:37 EST 05/10/2014 16:12 EST Major Turner MD PACKAGES & DNA PROBE ORDERABLES [facility] [address] [place] [address] * (ABNORMAL) COMPREHENSIVE METABOLIC PANEL (CMP) (05/10/2014 15:37 EST) Potassium 4.7 3.5 - 5.0 mEq/L 05/10/2014 17:01 [facility] Sodium 141 136 - 145 mEq/L 05/10/2014 17:01 [facility] Chloride 105 96 - 110 mEq/L 05/10/2014 17:01 [facility] CO2 25 24 - 32 mEq/L 05/10/2014 17:01 [facility] Total Alkaline Phosphatase 62 38 - 126 U/L 05/10/2014 17:01 [facility] Bilirubin, Total <0.5 <1.4 mg/dl 05/10/20 14 17:01 [facility] AST 22 15 - 46 U/L 05/10/2014 17:01 [facility] ALT 32 21 - 72 U/L 05/10/2014 17:01 [facility] Albumin 4.5 3.4 - 4.9 g/dl 05/10/2014 17:01 [facility] Total Protein 6.8 6.5 - 8.3 g/dl 05/10/2014 17:01 [facility] Creatinine 0.90 0.66 - 1.25 mg/dl 05/10/2014 17:01 [facility] GFR, Calculated >60 >60 ml/min/1.7 3m2 05/10/2014 17:01 [facility] BUN 25 10 - 26 mg/dl 05/10/2014 17:01 [facility] Calcium 9.9 8.5 - 10.5 mg/dl 05/10/2014 17:01 [facility] Calculated Calcium 9.8 8.5 - 10.5 mg/dl 05/10/2014 17:01 [facility] Glucose, Serum 134(H) 70 - 100 mg/dl 05/10/2014 17:01 [facility] Fasting? Unknown 05/10/2014 15:37 [facility] Blood specimen (specimen) BLOOD SPECIMEN / Unknown 05/10/2014 15:37 EST 05/10/2014 16:12 EST Major Turner MD CHEMISTRY & BLOOD GA S ORDERABLES [facility] [address] [place] [address] documented in this encounter Visit Diagnoses Diagnosis Inflammatory arthritis- Primary Unspecified inflammatory polyarthropathy Pain in joint, multiple sites documented in this encounter Care Teams Director Of Market Research Relationship Specialty Start Date End Date Dereck Schultz MD PCP - General 10/19/08 02/12/17 documented as of this encounter
--- OUTSIDE RECORDS SUMMARY | 2024-01-09 01:54 | XMS_ITS | Encounter Summary ---
Author Organization [facility] Address [address] [place] [address] Care Team Providers Care Psych Nurse Name Role Phone Dereck Schultz MD Primary Care Provider U vinnyailpiero Encounter Details Date Type Department Care Team (Late st Contact Info) Description 09/20/2014 Phlebotomy Only [address] [phone] Machine [employer] Maker, Outpatient Inflammatory arthritis; LBP (low back pain) Social History Tobacco Use Types Packs/Day Years [...] Visit [facility] Hematology & Oncology [address] [address] Erin Barillas MD 111 [facility], [facility], [address] [place] [phone] 05/18/2024 10:00 EST Office Visit [facility] Rheumatology & Immunology - [address] [phone] Tod Perez NP 111 [facility], [address] [place] [phone] 06/03/2024 9:00 EST Ancillary Procedure [facility] [address] [place] [phone] 06/03/2024 9:00 EST Office Visit [facility] [address] [place] [phone] Claire Lopez NP 130 [facility] [address] [place] [phone] documented as of this encounter Procedures Procedure Name Priority Date/Time Associated Diagnosis Comments COMPLETE BLOOD COUNT AND DIFFERENTIAL Routine 09/20/2014 15:43 EDT Inflammatory arthritis LBP (low back pain) COMPREHENSIVE METABOLIC PANEL (CMP) Routine 09/20/2014 15:43 EDT Inflammatory arthritis LBP (low back pain) documented in this encounter Results * (ABNORMAL) HEMAGRAM AND DIFFERENTIAL (09/20/2014 15:43 EDT) WBC 7.10 4.0 - 10.4 K/cmm 09/20/2014 16:24 EDT [facility] RBC 4.73 4.36 - 5.78 M/cmm 09/20/2014 16:24 EDT [facility] Hemoglobin 14.7 13.8 - 17.3 gm/dl 09/20/2014 16:24 EDT [facility] HCT 43.7 39.5 - 50.2 % 09/20/2014 16:24 [facility] MCV 92 81 - 95 fl 09/20/2014 16:24 [facility] MCH 31.1 27.6 - 33.0 pg 09/20/2014 16:24 [facility] MCHC 33.7 32.8 - 36.4 gm/dl 09/20/2014 16:24 [facility] RDW-CV 15.7(H) 11.8 - 14.1 % 09/20/2014 16:24 [facility] RDW-SD 49.4(H) 36.5 - 45.9 fl 09/20/2014 16:24 [facility] PLT 210 141 - 320 K/cm 09/20/2014 16:24 [facility] MPV 9.7 7.5 - 11.2 fl 09/20/2014 16:24 [facility] % Neutrophils 65.9 45.5 - 79.7 % 09/20/2014 16:24 [facility] % Lymphocytes 24.7 15.0 - 46.8 % 09/20/2014 16:24 [facility] % Monocytes 7.9 1.8 - 12.0 % 09/20/2014 16:24 [facility] % Eosinophils 0.9 0.6 - 6.9 % 09/20/2014 16:24 [facility] % Basophils 0.6 0.2 - 1.4 % 09/20/2014 16:24 [facility] ABS Neutrophils 4.68 2.20 - 8.85 K/cmm 09/20/2014 16:24 [facility] ABS Lymphs 1.76 1.09 - 3.30 K/cmm 09/20/2014 16:24 [facility] ABS Monocytes 0.56 0.1 - 0.8 K/cmm 09/20/2014 16:24 [facility] ABS Eosinophils 0.06 0.03 - 0.61 K/cmm 09/20/2014 16:24 [facility] ABS Basophils 0.04 0.01 - 0.11 K/cmm 09/20/2014 16:24 EDT [facility] Type of Diff: Automated 09/20/2014 16:24 [facility] Blood specimen (specimen) BLOOD SPECIMEN / Unknown 09/20/2014 15:43 EDT 09/20/2014 16:00 EDT Major Turner MD PACKAGES & DNA PROBE ORDERABLES [facility] [address] [place] [address] * (ABNORMAL) COMPREHENSIVE METABOLIC PANEL (CMP) (09/20/2014 15:43 EDT) Potassium 4.5 3.5 - 5.0 mEq/L 09/20/2014 16:55 [facility] Sodium 143 136 - 145 mEq/L 09/20/2014 16:55 [facility] Chloride 100 96 - 110 mEq/L 09/20/2014 16:55 [facility] CO2 30 24 - 32 mEq/L 09/20/2014 16:55 [facility] Total Alkaline Phosphatase 64 38 - 126 U/L 09/20/2014 16:55 [facility] Bilirubin, Total 0.6 <1.4 mg/dl 09/21/19 15 16:55 [facility] AST 22 15 - 46 U/L 09/20/2014 16:55 [facility] ALT 38 21 - 72 U/L 09/20/2014 16:55 [facility] Albumin 4.5 3.4 - 4.9 g/dl 09/20/2014 16:55 [facility] Total Protein 6.7 6.5 - 8.3 g/dl 09/20/2014 16:55 [facility] Creatinine 1.01 0.66 - 1.25 mg/dl 09/20/2014 16:55 [facility] GFR, Calculated >60 >60 ml/min/1.7 3m2 09/20/2014 16:55 EDT [facility] BUN 19 10 - 26 mg/dl 09/20/2014 16:55 EDT [facility] Calcium 9.7 8.5 - 10.5 mg/dl 09/20/2014 16:55 T [facility] Calculated Calcium 9.6 8.5 - 10.5 mg/dl 09/20/2014 16:55 EDT [facility] Glucose, Serum 102(H) 70 - 100 mg/dl 09/20/2014 16:55 EDT [facility] Fasting? No 09/20/2014 15:44 EDT [facility] Blood specimen (specimen) BLOOD SPECIMEN / Unknown 09/20/2014 15:43 EDT 09/20/2014 16:00 EDT Major Turner MD CHEMISTRY & BLOOD GA S ORDERABLES Performing Organization Address City/State/[facility] Co de Phone Number [facility] [address] [place] [address] documented in this encounter Visit Diagnoses Diagnosis Inflammatory arthritis Unspecified inflammatory polyarthropathy LBP (low back pain) Lumbago documented in this encounter Care Teams Psych Nurse Relationship Specialty Start Date End Date Dereck Schultz MD PCP - General 10/19/08 02/12/17 documented as of this encounter
--- OUTSIDE RECORDS SUMMARY | 2024-01-09 01:54 | XMS_ITS | Encounter Summary ---
Author Organization [facility] Address [address] [place] [address] Care Team Providers Care Gauger Chief Delivery Name Role Phone Dereck Schultz MD Primary Care Provider U navailable Reason for Visit * Reason Onset Date Comments Medications Refill 09/11/2015 Encounter Details Date Type Department Care Team (Late st Contact Info) Description 09/11/2015 Refill [facility] Rheumatology & Immunology - [facility] [address] [place], [place] [address] Marie Stanford PA-C [address] [place] [address] Medications Refill Social History Tobacco Use Types [...] visiting a doctor's office or shopping? No 06/29/2015 Cognitive Status Response Date of Assessm ent Because of a physical, menta l, or emotional condition, does this person have serious difficulty concentrating, remembering, or making decisions? No 06/29/2015 documented as of this encounter Ordered Prescriptions Prescription Sig Dispensed Refills Start Date End Da te folic acid (FOLVITE) 1 mg tablet Take 1 Tab by mouth daily. 90 Tab 3 09/11/2015 09/09/2016 documented in this encounter Miscellaneous Notes * Telephone Encounter - Claudia Salgado RN - 09/11/2015 1614 EDTFrom: Praneeth Villanueva To: Marie Stanford PA Sent: 09/11/2015 16:06 EDT Subject: Medication Renewal Request Original authorizing provider: ALMA Bills would like a refill of the following medications: folic acid (FOLVITE) 1 mg tablet [ALMA Bills] Preferred pharmacy: [address] Comment: Is it possible to get a 90 day prescription for the folic acid? Please renew at [facility] in [facility]. Thank you. documented in this encounter Plan of Treatment Upcoming Encounters Date Type Department Care Team (Late st Contact Info) Description 04/09/2024 16:30 EDT Office Visit [facility] Hematology & Oncology - [address] [phone] Erin Barillas MD 111 [facility], [facility] 2 [place] [phone] 05/18/2024 10:00 EST Office Visit [facility] Rheumatology & Immunology - [address] [phone] Tod Perez NP [address] [place] [address], [facility] 5 [place] [phone] 06/03/2024 9:00 EST Ancillary Procedure [facility] [address] [place] [address] 06/03/2024 9:00 EST Office Visit [facility] [address] [place] [address] Claire Lopez NP 130 [facility] [address] [place] [address] documented as of this encounter Visit Diagnoses Not on filedocumented in this encounter Discontinued Medications Medication Sig Discontinue Reason Start Date End Da te folic acid (FOLVITE) 1 mg tablet Take 1 Tab by mouth daily Reorder 12/19/2014 09/11/2015 documented as of this encounter Care Teams Gauger Chief Delivery Relationship Specialty Start Date End Date Dereck Schultz MD PCP - General 10/19/08 02/12/17 documented as of this encounter
--- OUTSIDE RECORDS SUMMARY | 2024-01-09 01:54 | XMS_ITS | Encounter Summary ---
Author Organization [facility] Address [address] [place] [address] Care Team Providers Care Traffic Sergeant Name Role Phone Dereck Schultz MD Primary Care Provider U morgna Encounter Details Date Type Department Care Team (Late st Contact Info) Description 07/26/2014 Phlebotomy Only [address] [address] Sales Rep, Outpatient Inflammatory arthritis; Pain in joint, ankle and foot; LBP (low back pain) Social History Tobacco [...] [facility] Hematology & Oncology [address] [phone] Erin Barillas MD 111 [facility], Level 2 [place] [phone] 05/18/2024 10:00 EST Office Visit [facility] Rheumatology & Immunology - [address] [phone] Tod Perez NP 111 [facility], Level 5 [place] [phone] 06/03/2024 9:00 EST Ancillary Procedure [facility] [address] [place] [address] [phone] 06/03/2024 9:00 EST [facility] [address] [place] [address] [phone] Claire Lopez NP 130 [facility] [address] [place] [phone] documented as of this encounter Procedures Procedure Name Priority Date/Time Associated Diagnosis Comments COMPLETE BLOOD COUNT AND DIFFERENTIAL Routine 07/26/2014 15:06 EST Inflammatory arthritis Pain in joint, ankle and foot LBP (low back pain) COMPREHENSIVE METABOLIC PANEL (CMP) Routine 07/26/2014 15:06 EST Inflammatory arthritis Pain in joint, ankle and foot LBP (low back pain) documented in this encounter Results * (ABNORMAL) HEMAGRAM AND DIFFERENTIAL (07/26/2014 15:06 EST) WBC 8.75 4.0 - 10.4 K/cmm 07/26/2014 16:07 EST [facility] RBC 5.02 4.36 - 5.78 M/cmm 07/26/2014 16:07 EST [facility] Hemoglobin 15.1 13.8 - 17.3 gm/dl 07/26/2014 16:07 [facility] HCT 45.5 39.5 - 50.2 % 07/26/2014 16:07 [facility] MCV 91 81 - 95 fl 07/26/2014 16:07 [facility] MCH 30.0 27.6 - 33.0 pg 07/26/2014 16:07 [facility] MCHC 33.1 32.8 - 36.4 gm/dl 07/26/2014 16:07 [facility] RDW-CV 16.6(H) 11.8 - 14.1 % 07/26/2014 16:07 [facility] RDW-SD 53.4(H) 36.5 - 45.9 fl 07/26/2014 16:07 [facility] Anisocytosis 1+ 07/26/2014 16:07 [facility] PLT 196 141 - 320 K/cmm 07/26/2014 16:07 [facility] MPV 9.8 7.5 - 11.2 fl 07/26/2014 16:07 [facility] % Neutrophils 74.9 45.5 - 79.7 % 07/26/2014 16:07 [facility] % Lymphocytes 17.2 15.0 - 46.8 % 07/26/2014 16:07 [facility] % Monocytes 6.9 1.8 - 12.0 % 07/26/2014 16:07 [facility] % Eosinophils 0.7 0.6 - 6.9 % 07/26/2014 16:07 [facility] % Basophils 0.3 0.2 - 1.4 % 07/26/2014 16:07 [facility] ABS Neutrophils 6.56 2.20 - 8.85 K/cmm 07/26/2014 16:07 [facility] ABS Lymphs 1.51 1.09 - 3.30 K/cmm 07/26/2014 16:07 [facility] ABS Monocytes 0.60 0.1 - 0.8 K/cmm 07/26/2014 16:07 [facility] ABS Eosinophils 0.06 0.03 - 0.61 K/cmm 07/26/2014 16:07 [facility] ABS Basophils 0.03 0.01 - 0.11 K/[facility] 07/26/2014 16:07 [facility] Type of Diff: Automated 07/26/2014 16:07 [facility] Blood specimen (specimen) BLOOD SPECIMEN / Unknown 07/26/2014 15:06 EST 07/26/2014 15:18 EST Major Turner MD PACKAGES & DNA PROBE ORDERABLES [facility] [address] [place] [address] * (ABNORMAL) COMPREHENSIVE METABOLIC PANEL (CMP) (07/26/2014 15:06 EST) Potassium 4.4 3.5 - 5.0 mEq/L 07/26/2014 15:54 [facility] Sodium 140 136 - 145 mEq/L 07/26/2014 15:54 [facility] Chloride 103 96 - 110 mEq/L 07/26/2014 15:54 [facility] CO2 27 24 - 32 mEq/L 07/26/2014 15:54 [facility] Total Alkaline Phosphatase 56 38 - 126 U/L 07/26/2014 15:54 [facility] Bilirubin, Total 0.7 <1.4 mg/dl 07/26/19 15 15:54 [facility] AST 17 15 - 46 U/L 07/26/2014 15:54 [facility] ALT 30 21 - 72 U/L 07/26/2014 15:54 [facility] Albumin 4.2 3.4 - 4.9 g/dl 07/26/2014 15:54 [facility] Total Protein 6.6 6.5 - 8.3 g/dl 07/26/2014 15:54 [facility] Creatinine 1.02 0.66 - 1.25 mg/dl 07/26/2014 15:54 [facility] GFR, Calculated >60 >60 ml/min/1.7 3m2 07/26/2014 15:54 EST [facility] BUN 19 10 - 26 mg/dl 07/26/2014 15:54 EST [facility] Calcium 9.6 8.5 - 10.5 mg/dl 07/26/2014 15:54 [facility] Calculated Calcium 9.8 8.5 - 10.5 mg/dl 07/26/2014 15:54 [facility] Glucose, Serum 118(H) 70 - 100 mg/dl 07/26/2014 15:54 EST [facility] Fasting? YES 07/26/2014 15:54 EST [facility] Blood specimen (specimen) BLOOD SPECIMEN / Unknown 07/26/2014 15:06 EST 07/26/2014 15:18 EST Major Turner MD CHEMISTRY & BLOOD GA S ORDERABLES Performing Organization Address City/State/[facility] Co de Phone Number [facility] [address] [place] [address] documented in this encounter Visit Diagnoses Diagnosis Inflammatory arthritis Unspecified inflammatory polyarthropathy Pain in joint, ankle and foot LBP (low back pain) Lumbago documented in this encounter Care Teams Traffic Sergeant Relationship Specialty Start Date End Date Dereck Schultz MD PCP - General 10/19/08 02/12/17 documented as of this encounter
--- OUTSIDE RECORDS SUMMARY | 2024-01-09 01:54 | XMS_ITS | Encounter Summary ---
Author Organization [facility] Address [address] [place] [address] Care Team Providers Care Visual Training Aide Name Role Phone Dereck Schultz MD Primary Care Provider U navailable Reason for Visit * Reason Onset Date Comments Medications Refill 12/08/2015 Encounter Details Date Type Department Care Team (Late st Contact Info) Description 12/08/2015 Refill [facility] Rheumatology & Immunology - [facility] [address] [place], [place] [phone] Marie Stanford PA-C [address] [place] [address] Medications Refill Social History Tobacco Use Types [...] mouth once a week. 96 Tab 1 12/08/2015 08/11/2016 documented in this encounter Miscellaneous Notes * Telephone Encounter - Zari Mccabe RN - 12/08/2015 1247 EDTFrom: Praneeth Villanueva To: Marie Stanford PA Sent: 12/08/2015 11:36 EDT Subject: Medication Renewal Request Original authorizing provider: ALMA Bills would like a refill of the following medications: methotrexate 2.5 mg tablet [ALMA Bills] Preferred pharmacy: [id number] Comment: documented in this encounter Plan of Treatment Upcoming Encounters Date Type Department Care Team (Late st Contact Info) Description 04/09/2024 16:30 EDT Office Visit [facility] Hematology & Oncology - [address] [phone] Erin Barillas MD 111 [facility] 2 [place] [phone] 05/18/2024 10:00 EST Office Visit [facility] Rheumatology & Immunology - [address] [phone] Tod Perez NP 111 [facility] 5 [place] [phone] 06/03/2024 9:00 EST Ancillary Procedure [facility] [address] [place] [address] 06/03/2024 9:00 EST Office Visit [facility] Clinic [address] [place], [place] [phone] Claire Lopez NP 130 [facility] [address] [place] [phone] documented as of this encounter Visit Diagnoses Not on filedocumented in this encounter Discontinued Medications Medication Sig Discontinue Reason Start Date End Da te methotrexate 2.5 mg tablet Take 8 Tabs by mouth once a week. Reorder 2015 12/08/2015 documented as of this encounter Care Teams Visual Training Aide Relationship Specialty Start Date End Date Dereck Schultz MD PCP - General 10/19/08 02/12/17 documented as of this encounter
--- OUTSIDE RECORDS SUMMARY | 2024-01-09 01:54 | XMS_ITS | Encounter Summary ---
Author Organization [facility] Address [address] [place] [address] Care Team Providers Care Cook Vegetable Name Role Phone Dereck Schultz MD Primary Care Provider U navailable Reason for Visit * Reason Onset Date Comments Medications Refill 05/30/2014 methotrexate Encounter Details Date Type Department Care Team (Late st Contact Info) Description 05/30/2014 Refill [facility] Rheumatology & Immunology - [facility] [address] [place] [address] Major Turner MD Medications Refill (methotrexate) Social History Tobacco Use Types Packs/Day Years [...] End Da te methotrexate 2.5 mg tablet 4 tablets once a week. 20 Tab 3 05/30/2014 06/23/2014 documented in this encounter Miscellaneous Notes * Telephone Encounter - Claudia Salgado RN - 05/31/2014 1508 EST The pharmacy was able to run the medication and it went through without difficulty. * Telephone Encounter - Claudia Salgado RN - 05/31/2014 1209 EST Spoke with pt's and he took the MTX wrong. He has taken two doses and only has 3 tablets left.Will need 5 tablets phoned in to allow him to take the the correct dose. Do you want any lab work or ok to phone in a one time order of 5 tablets that will allow 8 tablets that will take him to his next refill. * Telephone Encounter - Shruthi Martel - 05/30/2014 0935 EST Medication(s) Requested: Methotrexate 2.5 mg tab 5 tabs a week Pharmacy: [facility] [place], [place] Last Refill Date: 05/10/14 Last Visit Date: 05/10/14 Next Visit Date: 06/23/2014 Is patient out of medication? Yes, pt's next does is 06/03/14 Shruthi Martel 05/30/2014 9:45 documented in this encounter Plan of Treatment Upcoming Encounters Date Type Department Care Team (Late st Contact Info) Description 04/09/2024 16:30 EDT Office Visit [facility] Hematology & Oncology - [address] [phone] Erin Barillas MD [address] [place] [address], [facility] 2 [place] [phone] 05/18/2024 10:00 EST Office Visit [facility] Rheumatology & Immunology - [address] 512841 Tod Perez NP 111 [facility], [address] 5 [place] [phone] 06/03/2024 9:00 EST Ancillary Procedure [facility] [address] [place], [place] [phone] 06/03/2024 9:00 EST Office Visit [facility] [address] [place] [address] [phone] Claire Lopez NP 130 [facility] [address] [place] [phone] documented as of this encounter Visit Diagnoses Not on filedocumented in this encounter Discontinued Medications Medication Sig Discontinue Reason Start Date End Da te methotrexate 2.5 mg tablet 4 tablets once a week. Reorder 05/10/2014 05/30/2014 documented as of this encounter Care Teams Cook Vegetable Relationship Specialty Start Date End Date Dereck Schultz MD PCP - General 10/19/08 02/12/17 documented as of this encounter
--- OUTSIDE RECORDS SUMMARY | 2024-01-09 01:54 | XMS_ITS | Encounter Summary ---
Author Organization [facility] Address [address] [place] [address] Care Team Providers Care Manager Building Name Role Phone Dereck Schultz MD Primary Care Provider U navailable Reason for Visit * Reason Comments Follow-up inflammatory arthrit is Encounter Details Date Type Department Care Team (Latest Contact Info) Description 03/29/2015 9:30 EDT Office Visit [facility] Rheumatology & Immunology - [facility] [address] [place] [address] Marie Stanford PA-C [address] [place] [address] Inflammatory arthritis (Primary Dx); Chronic low back pain; Encounter for long-term (current) use of medications [...] No 03/29/2015 documented as of this encounter Discharge Diagnoses Diagnosis M06.4 Inflammatory polyarthropathy-M06.4[ICD-10-CM] Z79.899 Other shelter (current) drug therapy-Z79.899[ICD-10-CM] documented in this encounter Patient Instructions * Patient Instructions* Marie Stanford PA - 03/29/2015 9:47 EDT Please stop downstairs for labs today (2nd floor). As long as your labs look ok I would like you to increase Methotrexate to 8 tabs (20 mg) once weekly to better control your arthritis. Please have labs repeated in 1 month then every 2-3 months thereafter to monitor Methotrexate. I would also like you to try tapering Prednisone again but slower this time. Start by dropping downto 4 mg daily for 1 month. If doing ok you can continue to wean by 1 mg every month as tolerated. Please let me know if you have any problems tapering Prednisone. Otherwise I will plan to follow upwith you in 3 months. documented in this encounter Ordered Prescriptions Prescription Sig Dispensed Refills Start Date End Da te predniSONE (DELTASONE) 1 mg tablet Decrease Prednisone to 4 mg daily for 1 month then slowly taper by 1 mg every month as tolerated 120 Tab 2 03/31/2015 12/27/2015 methotrexate 2.5 mg tablet Take 8 Tabs by mouth once a week 96 Tab 1 03/31/2015 06/29/2015 documented in this encounter Progress Notes * Marie Stanford PA - 03/29/2015 0938 EDT [...] in low back pain. Has also been tapering Prednisone. Got down to 2.5 mg daily but [...] twice a day for inflammatory arthritis (714.9) (Patient taking differently: Take 5 mg by mouth daily [...] restart Gabapentin if symptoms worsen. Encounter for shelter use of medication. Due for labs. Patient Instructions Please stop downstairs for labs today (2nd floor). As long as your labs look ok I would like you to increase Methotrexate to 8 tabs (20 mg) once weekly to better control your arthritis. Please have labs repeated in 1 month then every 2-3 months thereafter to monitor Methotrexate. I would also like you to try tapering Prednisone again but slower this time. Start by dropping downto 4 mg daily for 1 month. If doing ok you can continue to wean by 1 mg every month as tolerated. Please let me know if you have any problems tapering Prednisone. Otherwise I will plan to follow upwith you in 3 months. Barriers to learning identified: No Patient verbalizes understanding and agrees with plan: Yes I was supervised by Dr. Sahu who was in the suite and immediately available for the entire time the service was provided. ALMA Bills 03/29/2015 9:38 I was available during the encounter. Gokul Sahu MD 03/31/2015 10:10 * Jazmyne Welch - 03/29/2015 0856 EDT REVIEW OF SYSTEMS: [...] entire body? 0 f. Bend down to quill picking machine operator clothing from the floor? 1 g. Turn [...] [facility] H[facility] Oncology - [address] [phone] Erin Barillas MD [address] [place] [address], [facility], Level 2 [place] [phone] 05/18/2024 10:00 EST Office Visit [facility] Rheumatology & Immunology - [facility] [place] [address] [place] [address] Tod Perez NP 111 [facility], [address] [place] [phone] 06/03/2024 9:00 EST Ancillary Procedure [facility] [address] [place], [place] [phone] 06/03/2024 9:00 EST Office Visit [facility] Clinic [address] [place] [address] Claire Lopez NP 130 [facility] [address] [place] [phone] documented as of this encounter Visit Diagnoses Diagnosis Inflammatory arthritis- Primary Unspecified inflammatory polyarthropathy Chronic low back pain Lumbago Encounter for long-term (current) use of medications Encounter for long-term (current) use of other medications documented in this encounter Discontinued Medications Medication Sig Discontinue Reason Start Date End Da te gabapentin (NEURONTIN) 400 mg capsule Take 400 mg by mouth daily Therapy completed 03/29/2015 HYDROcodone-acetaminophen (VICODIN) 5-300 mg tablet Take 2 Tabs by mouth at bedtime. Therapy completed 03/29/2015 methotrexate 2.5 mg tablet Take 6 Tabs by mouth once a week Reorder 12/19/2014 03/29/2015 documented as of this encounter Historical Medications * This list may reflect changes made after this encounter. Medication Sig Dispensed Refills Start Date End Date LACTOBACILLUS ACIDOPHILUS (PROBIOTIC ORAL) Take by mouth daily 04/17 added in this encounter Care Teams Manager Building Relationship Specialty Start Date End Date Dereck Schultz MD PCP - General 10/19/08 02/12/17 documented as of this encounter
--- OUTSIDE RECORDS SUMMARY | 2024-01-09 01:54 | XMS_ITS | Encounter Summary ---
Author Organization [facility] Address [address] [place] [address] Care Team Providers Care Tomographic Tech Name Role Phone Dereck Schultz MD Primary Care Provider U navailable Reason for Visit * Reason Comments Follow-up inflammatory arthrit is; no new issues Encounter Details Date Type Department Care Team (Latest Contact Info) Description 06/29/2015 8:30 EST Office Visit [facility] Rheumatology & Immunology - [facility] [address] [place], [place] [phone] Marie Stanford PA-C [address] [place], [place] [phone] Inflammatory arthritis (Primary Dx); Encounter for long-term [...] No 06/29/2015 documented as of this encounter Discharge Diagnoses Diagnosis M19.90 Unspecified osteoarthritis, unspecified site-M19.90[ICD-10-CM] Z79.899 Other director long term care (current) drug therapy-Z79.899[ICD-10-CM] documented in this encounter Patient Instructions * Patient Instructions* Marie Stanford PA - 06/29/2015 9:01 EST No changes today. Continue Methotrexate 8 tabs once weekly. Keep tapering Prednisone by 1 mg every month as tolerated. Remember to have your labs checked every 3-4 months to monitor Methotrexate. Due again in September. Please let me know if you have any problems tapering Prednisone. Otherwise I'll plan to see you back in 6 months. documented in this encounter Ordered Prescriptions Prescription Sig Dispensed Refills Start Date End Da te methotrexate 2.5 mg tablet Take 8 Tabs by mouth once a week 96 Tab 1 06/29/2015 2015 documented in this encounter Progress Notes * Marie Stanford PA - 06/29/2015 0842 EST [...] Prednisone. Otherwise I'll plan to see you back in 6 months. Barriers to learning identified: No Patient verbalizes understanding and agrees with plan: Yes I was supervised by Dr. Kaminski who was in the suite and immediately available for the entire time the service was provided. ALMA Bills 06/29/2015 8:42 * Claudia Salgado RN - 06/29/2015 0836 EST REVIEW OF [...] entire body? 0 f. Bend down to picker machine operator clothing from the floor? 0 g. [...] Upcoming Encounters Date Type Department Care Team (Maureen nielsen Contact Info) Description 04/09/2024 16:[address] [facility] Hematology & Oncology [address] [phone] Erin Barillas MD [address] [place] [address] 2 [place] [phone] 05/18/2024 10:00 EST Office Visit [facility] Rheumatology & Immunology [address] [phone] Tod Perez NP [address] [place] [address] 5 [place] [phone] 06/03/2024 9:00 EST Ancillary Procedure [facility] [address] [place] [phone] 06/03/2024 9:00 EST Office Visit [facility] [address] [place] [address] [phone] Claire Lopez NP [address] [place] [address]-[address] [place] [phone] documented as of this encounter Visit Diagnoses Diagnosis Inflammatory arthritis- Primary Unspecified inflammatory polyarthropathy Encounter for long-term (current) use of medications Encounter for long-term (current) use of other medications documented in this encounter Discontinued Medications Medication Sig Discontinue Reason Start Date End Da te predniSONE (DELTASONE) 5 mg tablet 1 tab twice a day for inflammatory arthritis (714.9) Dose adjustment 09/20/2014 06/29/2015 methotrexate 2.5 mg tablet Take 8 Tabs by mouth once a week Reorder 03/31/2015 06/29/2015 documented as of this encounter Care Teams Tomographic Tech Relationship Specialty Start Date End Date Dereck Schultz MD PCP - General 10/19/08 02/12/17 documented as of this encounter
--- OUTSIDE RECORDS SUMMARY | 2024-01-09 01:54 | XMS_ITS | Encounter Summary ---
Author Organization [facility] Address [address] [place] [address] Care Team Providers Care Utility Aircrewman Name Role Phone Dereck Schultz MD Primary Care Provider U navailable Reason for Referral * Consult (Routine) - Closed Specialty Diagnoses / Procedures Referred By Marissa carney Referred To Contact Dermatology Diagnoses History of seronegative inflammatory arthritis Facial rash Taking multiple medications for chronic disease Sudhir Rosales MD [address] [place] [address] [place] [address] [address] [place] [id number] Referral ID Status Reason Start Date Expiration Date V isits Requested Visits Authorized [id number] Closed Specialty Services Required 09/24/2016 1 1 Question Answer Reason for Request: Facial rash and skin check. History of inflammatory arthritis on methotrexate. Reason for Visit * Reason Comments Joint Pain neck and shoulders a m is the worst Encounter Details Date Type Department Care Team (Latest Contact Info) Description 09/24/2016 8:00 EDT Office Visit [facility] Rheumatology & Immunology - [facility] [address], [place] [address] Sudhir Rosales MD [address] [address] History of seronegative inflammatory arthritis (Primary Dx); Facial rash; Taking multiple medications for chronic disease Social History Tobacco Use Types Packs/Day Years [...] Time Taken Comments Blood Pressure 151/75 09/24/2016 075 EDT Pulse 67 09/24/2016 075 EDT Temperature - - Respiratory Rate - [...] tissue-Z87.39[ICD-10-CM] R21 Rash and other nonspecific skin eruption-R21[ICD-10-CM] R69 Illness, unspecified-R69[ICD-10-CM] documented in this encounter Patient Instructions * Patient Instructions* Sudhir Rosales MD - 09/24/2016 8:00 EDT 1. [...] months. documented in this encounter Progress Notes * Della Catalan - 09/24/2016 0800 EDT REVIEW OF SYSTEMS: [...] X Hand/Foot color change in cold X * Sudhir Rosales MD - 09/24/2016 0800 EDT [...] documentation was created using voice recognition software. [employer] Hr Developer errors may be present. documented in this encounter Plan of Treatment Upcoming Encounters Date Type Department Care Team (Late st Contact Info) Description 04/09/2024 16:30 EDT Office Visit [facility] Hematology & Oncology - [address] [phone] Erin Barillas MD [address] [place] [address], [facility] [address] [place] [phone] 05/18/2024 10:00 EST Office Visit [facility] Rheumatology & Immunology - [address] 221541 Tod Perez NP 111 [facility], [facility] 5 [place] [phone] 06/03/2024 9:00 EST Ancillary Procedure [facility] Card[facility] Clinic [address] [place] [phone] 06/03/2024 9:00 EST Office Visit [facility] Cardiology Clinic [address] [place] [address] Claire Lopez, FESTUS [address] [facility] [address] [place] [phone] Scheduled Referrals Name Type Priority Associated Diagnoses Orde r Schedule AMB CONS/FOLLOW UP DERMATOLOGY Outpatient Referral Routine History of seronegative inflammatory arthritis Facial rash Taking multiple medications for chronic disease Ordered: 09/24/2016 documented as of this encounter Visit Diagnoses Diagnosis History of seronegative inflammatory arthritis- Primary Facial rash Rash and other nonspecific skin eruption Taking multiple medications for chronic disease Other unknown and unspecified cause of morbidity or mortality documented in this encounter Care Teams Utility Aircrewman Relationship Specialty Start Date End Date Dereck Schultz MD PCP - General 10/19/08 02/12/17 documented as of this encounter
--- OUTSIDE RECORDS SUMMARY | 2024-01-09 01:54 | XMS_ITS | Encounter Summary ---
Author Organization [facility] Address [address] [place] [address] Care Team Providers Care Air Pollution Specialist Name Role Phone Dereck Schultz MD Primary Care Provider U Rebecca Shukla LAW OFFICE RECEPTIONIST Primary Care Provider Lawanda Parisi IRA [facility] Primary Care Provider + Dereck Schultz MD Primary Care Provider U Layne Clemons MD Primary Care Provider [phone] Claire Lopez LAW OFFICE RECEPTIONIST Unavailable [phone] Tod Perez LAW OFFICE RECEPTIONIST Unavailable [phone] Vianey Bocanegra APRN Primary Care Provider [phone] Reason for Referral * Other Type (48 Hrs (Urgent)) - Closed Specialty Diagnoses / Procedures Referred By Contdelbert t Referred To Contact Diagnoses Unspecified inflammatory polyarthropathy Encounter for long-term (current) use of other medications Major Turner MD [address] [place] [address] Referral ID Status Reason Start Date Expiration Date V isits Requested Visits Authorized [id number] Closed Other 06/27/2014 1 1 Question Answer Medication to be Prior Authorized: Methotrexate 6 tabs once weekly. (pt needs refill) Comments The purpose of this consult request is to inform the scheduling staff that a medication needs to be prior-authorized before it is prescribed and/or administered. Reason for Visit * Reason Onset Date Comments Medications Refill 06/27/2014 Encounter Details Date Type Department Care Team ([facility] Contact Info) Description 06/27/2014 Refill [facility] Rheumatology & Immunology [address] [address] Major Turner MD Medications Refill Social History [...] Yes 04/08/2012 documented as of this encounter Miscellaneous Notes * Telephone Encounter - Zari Mccabe RN - 06/27/2014 1415 ESTFrom: Praneeth Villanueva To: Major Turner MD Sent: 06/27/2014 14:00 EST Subject: Medication Renewal Request Original authorizing provider: MD Praneeth Odom would like a refill of the following medications: methotrexate 2.5 mg tablet [Major Turner MD] Preferred pharmacy: [id number] Comment: I have tried twice now to picker tender helper this Methotrexate prescription and the pharmacy tells me they need a prior authorization. Please advise when this has been sent. Thank you. Augustina Villanueva documented in this encounter Plan of Treatment Upcoming Encounters Date Type Department Care Team ([facility] Contact Info) Description 04/09/2024 16:30 EDT Office Visit [facility] Hematology & Oncology - [address] [phone] Erin Barillas MD [address] [place] [address] 2 [place] [phone] 05/18/2024 10:00 EST Office Visit [facility] Rheumatology & Immunology - [address] [phone] Tod Perez NP [address] [place] [address], [facility] [address] [place] [phone] 06/03/2024 9:00 EST Ancillary Procedure [facility] [address] [place] [phone] 06/03/2024 9:00 EST Office Visit [facility] [address] [place] [address] [phone] Claire Lopez NP [address] [place] [address]A [address] [phone] Scheduled Referrals Name Type Priority Associated Diagnoses Orde r Schedule AMB MEDICATION PRIOR AUTHORIZATION Outpatient Referral Routine Unspecified inflammatory polyarthropathy Encounter for long-term (current) use of other medications Ordered: 06/27/2014 documented as of this encounter Visit Diagnoses Diagnosis Unspecified inflammatory polyarthropathy- Primary Encounter for long-term (current) use of other medications documented in this encounter Additional Health Concerns Infection Onset Date Last Indicated Resolved Time R/O COVID-19 12/28/2020 12/28/2020 01/02/2021 22:1 5 EDT documented as of this encounter Care Teams Air Pollution Specialist Relationship Specialty Start Date End Date Dereck Schultz MD PCP - General 10/19/08 02/12/17 Rebecca Pickens NP PCP - General 02/13/17 11/23/17 Lawanda Parisi, CLIENT CUSTOMER MANAGER-BC [address] [facility] [place] [address] PCP - General 11/24/17 04/06/19 Dereck Schultz MD [address] [facility] [place] [address] PCP - General 04/07/19 04/04/20 Layne Cai MD [address] [place] [address] PCP - General 04/05/20 12/16/23 Vianey Bocanegra APRN 26 [facility] [address] [place] [address] PCP - General 12/17/23 Claire Lopez NP [address] [place] [address] [phone] Cardiovascular Disease 11/22/20 Tod Perez NP [address] [place] [address], [address] [place] [phone] Rheumatology 12/28/20 documented as of this encounter
--- OUTSIDE RECORDS SUMMARY | 2024-01-09 01:54 | XMS_ITS | Encounter Summary ---
Author Organization [facility] Address [address] [place] [address] Care Team Providers Care Sewer And Drain Technician Name Role Phone Dereck Schultz MD Primary Care Provider U navailable Reason for Visit * Reason Onset Date Comments Medications Refill 12/03/2014 Encounter Details Date Type Department Care Team (Late st Contact Info) Description 12/03/2014 Refill [facility] Rheumatology & Immunology - [facility] [address] [place] [address] Major Turner MD Medications Refill Social History [...] End Da te methotrexate 2.5 mg tablet 6 tablets once a week 24 Tab 0 12/05/2014 12/19/2014 gabapentin (NEURONTIN) 400 mg capsule Take 1 Cap by mouth 3 times daily 90 Cap 0 12/05/2014 12/19/2014 documented in this encounter Miscellaneous Notes * Telephone Encounter - Zari Mccabe RN - 12/05/2014 0840 EDTFrom: Praneeth Villanueva To: Major Turner MD Sent: 12/03/2014 13:17 EDT Subject: Medication Renewal Request Original authorizing provider: MD Praneeth Odom would like a refill of the following medications: gabapentin (NEURONTIN) 400 mg capsule [Major Turner MD] methotrexate 2.5 mg tablet [Major Turner MD] [facility]: [facility] Comment: documented in this encounter Plan of Treatment Upcoming Encounters Date Type Department Care Team (Late st Contact Info) Description 04/09/2024 16:30 EDT Office Visit [facility] Hematology & Oncology - [address] [phone] Erin Barillas MD [address] [place] [address] 2 [place] [phone] 05/18/2024 10:00 EST Office Visit [facility] Rheumatology & Immunology - [address] [phone] Tod Perez NP [address] [place] [address] 5 [place] [phone] 06/03/2024 9:00 EST Ancillary Procedure [facility] Card[facility] [address] [place] [phone] 06/03/2024 9:00 EST Office Visit [facility] Card[facility] [address] [place] [address] [phone] Claier Lopez NP 130 [facility] [address] [place] [address] documented as of this encounter Visit Diagnoses Not on filedocumented in this encounter Discontinued Medications Medication Sig Discontinue Reason Start Date End Da te gabapentin (NEURONTIN) 400 mg capsule Take 1 Cap by mouth 3 times daily. Reorder 06/06/2014 12/05/2014 methotrexate 2.5 mg tablet 6 tablets once a week. Reorder 06/23/2014 12/05/2014 documented as of this encounter Care Teams Sewer And Drain Technician Relationship Specialty Start Date End Date Dereck Schultz MD PCP - General 10/19/08 02/12/17 documented as of this encounter
--- OUTSIDE RECORDS SUMMARY | 2024-01-09 01:54 | XMS_ITS | Encounter Summary ---
Author Organization [facility] Address [address] [place] [address] Care Team Providers Care Dairy Management Specialist Name Role Phone Dereck Schultz MD Primary Care Provider U navailable Reason for Visit * Reason Comments Medication Management doing well today Encounter Details Date Type Department Care Team (Latest Contact Info) Description 07/26/2014 14:45 EST Office Visit [facility] Rheumatology & Immunology - [facility] [address] [place] [address] Major Turner MD Inflammatory arthritis (Primary Dx); Pain in joint, ankle and foot; LBP [...] LUMBAGO[ICD-9-CM] documented in this encounter Progress Notes * Della Catalan - 07/26/2014 1413 EST Division of Rheumatology and Clinical Immunology Chief Complaint Patient presents with ??? Medication Management doing well today HPI: Return visit for this 68-year-old male with a seronegative inflammatory polyarthritis. It has been 1 month since my last visit with him. He is currently on methotrexate 15 mg orally once a week alongwith prednisone 12.5 mg a day. Since my last visit with him, he reports significant improvement in his joint pain and he no longer has any [...] ??? Ketones, UA 05/10/2014 Neg ??? Specific [place], Urine 05/10/2014 1.025 ??? Blood, UA 05/10/2014 [...] mg b.i.d. He will continue methotrexate 15 mgonce a week along with folic acid 1 [...] EDT Office Visit [facility] [place] Hematology & Oncology - [address] [phone] Erin Barillas MD [address] [place] [address] 2 [place] [phone] 05/18/2024 10:00 EST Office Visit [facility] Rheumatology & Immunology [address] [phone] Tod Perez NP [address] [place] [address] 5 [place] [phone] 06/03/2024 9:00 EST Ancillary Procedure [facility] [address] [place] [phone] 06/03/2024 9:00 EST Office Visit [facility] [address] [place] [address] [phone] Claire Lopez NP [address] [place] [address]A [address] [place] [phone] documented as of this encounter Results * (ABNORMAL) HEMAGRAM AND DIFFERENTIAL (07/26/2014 15:06 EST) WBC 8.75 4.0 - 10.4 K/cmm 07/26/2014 16:07 EST [facility] RBC 5.02 4.36 - 5.78 M/cmm 07/26/2014 16:07 EST [facility] Hemoglobin 15.1 13.8 - 17.3 gm/dl 07/26/2014 16:07 [facility] HCT 45.5 39.5 - 50.2 % 07/26/2014 16:07 [facility] MCV 91 81 - 95 fl 07/26/2014 16:07 [facility] MCH 30.0 27.6 - 33.0 pg 07/26/2014 16:07 [facility] MCHC 33.1 32.8 - 36.4 gm/dl 07/26/2014 16:07 [facility] RDW-CV 16.6(H) 11.8 - 14.1 % 07/26/2014 16:07 [facility] RDW-SD 53.4(H) 36.5 - 45.9 fl 07/26/2014 16:07 [facility] Anisocytosis 1+ 07/26/2014 16:07 [facility] PLT 196 141 - 320 K/cmm 07/26/2014 16:07 [facility] MPV 9.8 7.5 - 11.2 fl 07/26/2014 16:07 [facility] % Neutrophils 74.9 45.5 - 79.7 % 07/26/2014 16:07 [facility] % Lymphocytes 17.2 15.0 - 46.8 % 07/26/2014 16:07 [facility] % Monocytes 6.9 1.8 - 12.0 % 07/26/2014 16:07 [facility] % Eosinophils 0.7 0.6 - 6.9 % 07/26/2014 16:07 [facility] % Basophils 0.3 0.2 - 1.4 % 07/26/2014 16:07 [facility] ABS Neutrophils 6.56 2.20 - 8.85 K/cmm 07/26/2014 16:07 [facility] ABS Lymphs 1.51 1.09 - 3.30 K/cmm 07/26/2014 16:07 [facility] ABS Monocytes 0.60 0.1 - 0.8 K/cmm 07/26/2014 16:07 [facility] ABS Eosinophils 0.06 0.03 - 0.61 K/cmm 07/26/2014 16:07 [facility] ABS Basophils 0.03 0.01 - 0.11 K/cmm 07/26/2014 16:07 [facility] Type of Diff: Automated 07/26/2014 16:07 [facility] Blood specimen (specimen) BLOOD SPECIMEN / Unknown 07/26/2014 15:06 EST 07/26/2014 15:18 EST Major Turner MD PACKAGES & DNA PROBE ORDERABLES [facility] [address] [place] [address] * (ABNORMAL) COMPREHENSIVE METABOLIC PANEL (CMP) (07/26/2014 15:06 EST) Potassium 4.4 3.5 - 5.0 mEq/L 07/26/2014 15:54 [facility] Sodium 140 136 - 145 mEq/L 07/26/2014 15:54 [facility] Chloride 103 96 - 110 mEq/L 07/26/2014 15:54 [facility] CO2 27 24 - 32 mEq/L 07/26/2014 15:54 [facility] Total Alkaline Phosphatase 56 38 - 126 U/L 07/26/2014 15:54 [facility] Bilirubin, Total 0.7 <1.4 mg/dl 07/26/19 15 15:54 [facility] AST 17 15 - 46 U/L 07/26/2014 15:54 [facility] ALT 30 21 - 72 U/L 07/26/2014 15:54 [facility] Albumin 4.2 3.4 - 4.9 g/dl 07/26/2014 15:54 [facility] Total Protein 6.6 6.5 - 8.3 g/dl 07/26/2014 15:54 [facility] Creatinine 1.02 0.66 - 1.25 mg/dl 07/26/2014 15:54 [facility] GFR, Calculated >60 >60 ml/min/1.7 3m2 07/26/2014 15:54 [facility] BUN 19 10 - 26 mg/dl 07/26/2014 15:54 [facility] Calcium 9.6 8.5 - 10.5 mg/dl 07/26/2014 15:54 [facility] Calculated Calcium 9.8 8.5 - 10.5 mg/dl 07/26/2014 15:54 [facility] Glucose, Serum 118(H) 70 - 100 mg/dl 07/26/2014 15:54 [facility] Fasting? YES 07/26/2014 15:54 [facility] Blood specimen (specimen) BLOOD SPECIMEN / Unknown 07/26/2014 15:06 EST 07/26/2014 15:18 EST Major Turner MD CHEMISTRY & BLOOD GA S ORDERABLES Performing Organization Address City/State/[facility] Co de Phone Number [facility] [address] [place] [address] documented in this encounter Visit Diagnoses Diagnosis Inflammatory arthritis- Primary Unspecified inflammatory polyarthropathy Pain in joint, ankle and foot LBP (low back pain) Lumbago documented in this encounter Care Teams Dairy Management Specialist Relationship Specialty Start Date End Date Dereck Schultz MD PCP - General 10/19/08 02/12/17 documented as of this encounter
--- OUTSIDE RECORDS SUMMARY | 2024-01-09 01:54 | XMS_ITS | Encounter Summary ---
Author Organization [facility] Address [address] [place] [address] Care Team Providers Care Bracelet Former Name Role Phone Dereck Schultz MD Primary Care Provider U navailable Reason for Visit * Reason Comments Follow-up Medication Management Encounter Details Date Type Department Care Team (Latest Contact Info) Description 12/19/2014 16:15 EDT Office Visit [facility] Rheumatology & Immunology - [facility] [address] [place] [address] Marie Stanford PA-C [address] [place] [address] Inflammatory arthritis (Primary Dx); Spondylosis of lumbar region without myelopathy or radiculopathy; Encounter for long-term (current) use of other medications Social History Tobacco Use Types Packs/Day [...] POLYARTHROP NOS[ICD-9-CM] 721.3 LUMBOSACRAL SPONDYLOSIS[ICD-9-CM] V58.69 AFTERCARE LONGTERM USE MEDICATN[ICD-9-CM] documented in this encounter Patient Instructions * Patient Instructions* Marie Stanford PA - 12/19/2014 16:55 EDT Continue Prednisone 2.5 mg daily for 2 more weeks then decrease to 2.5 mg every other day for 1 month. If no difference in joint symptoms you can try stopping it. Ok to try tapering Gabapentin by taking 1 tab every other day for 1 week. As long as your back paindoesn't worsen you can also try stopping this. [...] 6 Tabs by mouth once a week 72 Tab 3 12/19/2014 03/29/2015 folic acid (FOLVITE) 1 mg tablet Take 1 Tab by mouth daily 100 Tab 3 12/19/2014 09/11/2015 documented in this encounter Progress Notes * Marie Stanford PA - 12/19/2014 1627 EDT [...] mg daily in the beginning of October. Then2 weeks ago further dropped down to 2.5 mg daily. Is hoping to get off of it soon. No difference injoint symptoms on lower dose Prednisone. He also [...] cough from a recent cold that he caughtfrom his grandchildren. No other infections. 24 Tab 0 ??? metoprolol (LOPRESSOR) 25 mg tablet Take 25 mg by mouth daily. ??? omeprazole (PRILOSEC) 20 mg capsule Take 20 mg by mouth daily. ??? predniSONE (DELTASONE) 5 mg tablet 1 tab twice a day for inflammatory arthritis (714.9) (Patient taking differently: Take 2.5 mg by mouth daily [...] changes in lumbar spine. Symptomatic improvement on Gabapentin but Praneeth is eager to taper off as many medications as he can so will try weaning off. Encounter for [facility] use of medication. Praneeth says that he had labs drawn at [facility] this morning. Nursing contacted [facility] but these did not include our standing [...] 1 week. As long as your back paindoesn't worsen you can also try stopping this. [...] was seeing patients. Russ Warner MD. 12/26/2014 * Jazmyne Welch - 12/19/2014 4989 EDT REVIEW OF SYSTEMS: Yes No Yes [...] entire body? 0 f. Bend down to garbage pick up man clothing from the floor? 0 g. [...] Office Visit [facility] [place] Hematology & Oncology - [address] [phone] Erin Barillas MD 111 [facility], [facility] 2 [place] [phone] 05/18/2024 10:00 EST Office Visit [facility] Rheumatology & Immunology - [address] [phone] Tod Perez NP 111 [facility], [facility] 5 [place] [phone] 06/03/2024 9:00 EST Ancillary Procedure [facility] Cardiology Clinic [address] [place] [address] [phone] 06/03/2024 9:00 EST Office Visit [facility] Cardiology Clinic [address] [place] [address] [phone] Claire Lopez NP [address] [place] [address] [phone] documented as of this encounter Visit Diagnoses Diagnosis Inflammatory arthritis- Primary Unspecified inflammatory polyarthropathy 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 Reorder 05/10/2014 12/19/2014 methotrexate 2.5 mg tablet 6 tablets once a week Reorder 12/05/2014 12/19/2014 documented as of this encounter Historical Medications * This list may reflect changes made after this encounter. Medication Sig Dispensed Refills Start Date End Date gabapentin (NEURONTIN) 400 mg capsule Take 400 mg by mouth daily 03/29/2015 added in this encounter Care Teams Bracelet Former Relationship Specialty Start Date End Date Dereck Schultz MD PCP - General 10/19/08 02/12/17 documented as of this encounter
--- OUTSIDE RECORDS SUMMARY | 2024-01-09 01:54 | XMS_ITS | Encounter Summary ---
Author Organization [facility] Address [address] [place] [address] Care Team Providers Care Billing Clerk Name Role Phone Dereck Schultz MD Primary Care Provider U navailable Reason for Visit * Reason Onset Date Comments Labs Only 12/19/2014 STAT add on Encounter Details Date Type Department Care Team (Late st Contact Info) Description 12/19/[address] [facility] Rheumatology & Immunology - [facility] [address] [place], [place] [phone] Marie Stanford PA-C [address] [place] [address] Labs Only (STAT add on ) Social History Tobacco Use Types Packs/Day Years [...] encounter Miscellaneous Notes * Telephone Encounter - Desire Adrian RN - 12/20/2014 0848 EDT Spoke with lab. The add on was entered for external and faxed to hospital in [facility]. composite bond technician verbalized understanding. * Telephone Encounter - Krista Mahan - 12/19/2014 1700 EDT Reason for Call: Labs Only Summary/Symptoms: Lab unable to complete STAT add on CMP, as no sample submitted. Krista Mahan 12/19/2014 17:00 documented in this encounter Plan of Treatment Upcoming Encounters Date Type Department Care Team (Late st Contact Info) Description 04/09/2024 16:30 EDT Office Visit [facility] Hematology & Oncology - [address] [phone] Erin Barillas MD 111 [facility] 2 [place] [phone] 05/18/2024 10:00 EST Office Visit [facility] Rheumatology & Immunology - [address] [phone] Tod Perez NP [address] [place] [address], [facility] 5 [place] [phone] 06/03/2024 9:00 EST Ancillary Procedure [facility] Cardiology Clinic [address] [place] [address] 06/03/2024 9:00 EST Office Visit [facility] Cardiology Clinic [address] [place] [address] Claire Lopez NP [address] [place] [address]-A [address] [place] [address] documented as of this encounter Visit Diagnoses Not on filedocumented in this encounter Care Teams Billing Clerk Relationship Specialty Start Date End Date Dereck Schultz MD PCP - General 10/19/08 02/12/17 documented as of this encounter
--- OUTSIDE RECORDS SUMMARY | 2024-01-09 01:54 | XMS_ITS | Encounter Summary ---
Author Organization [facility] Address [address] [place] [address] Care Team Providers Care Gas Fitter Name Role Phone Dereck Schultz MD Primary Care Provider U vinnyailpiero Reason for Visit * Reason Onset Date Comments Provider Referred 09/24/2016 Encounter Details Date Type Department Care Team (Late st Contact Info) Description 09/24/2016 Telephone [facility] Dermatology 3rd Floor [facility] [address] [place], [place] [address] Swetha Mace MD [address] [place] [address] [phone] Provider Referred Social History Tobacco Use Types Packs/Day Years [...] No 09/24/2016 documented as of this encounter Miscellaneous Notes * Telephone Encounter - Sonja Green RN - 10/02/2016 1534 EDT Spoke [...] 02/14/17 at 9:[address] bunch, EP3 SONJA GREEN RN 10/02/2016 15:41 * Telephone Encounter - Cami Cooper - 10/02/2016 1451 EDT The patient's stated she is returning a call. Please call the patient back. * Telephone Encounter - Cami Cooper - 09/24/2016 0913 EDT Per senior insight manager international: Referring Provider: Sudhir Rosales MD Reason for referral: Facial rash and skin check. History of inflammatory arthritis on methotrexate Notes are in Prism documented in this encounter Plan of Treatment Upcoming Encounters Date Type Department Care Team (Late st Contact Info) Description 04/09/2024 16:30 EDT Office Visit [facility] Hematology & Oncology - [address] [phone] Erin Barillas MD [address] [place] [address], [address] [place] [phone] 05/18/2024 10:[address] [facility] Rheumatology & Immunology - [address] [address] Tod Perez NP 111 [facility], [address] [place] [address] 06/03/2024 9:00 EST Ancillary Procedure [facility] Cardiology Clinic [address] [place] [address] 06/03/2024 9:00 EST Office Visit [facility] Cardiology Clinic [address] [place] [address] Claire Lopez NP 130 [facility] [address] [place] [address] documented as of this encounter Visit Diagnoses Not on filedocumented in this encounter Care Teams Gas Fitter Relationship Specialty Start Date End Date Dereck Schultz MD PCP - General 10/19/08 02/12/17 documented as of this encounter
--- OUTSIDE RECORDS SUMMARY | 2024-01-09 01:54 | XMS_ITS | Encounter Summary ---
Author Organization [facility] Address [address] [place] [address] Care Team Providers Care Barrel Brander Name Role Phone Dereck Schultz MD Primary Care Provider U navailable Reason for Visit * Reason Comments Clinic Admin Medications follow up predn isone dosing Encounter Details Date Type Department Care Team (Latest Contact Info) Description 06/23/2014 13:45 EST Office Visit [facility] Rheumatology & Immunology - [facility] [address] [place] [address] Major Turner MD Inflammatory arthritis (Primary Dx) Social History Tobacco [...] tablets once a week. 30 Tab 3 06/23/2014 12/05/2014 documented in this encounter Progress Notes * Major Turner MD - 06/23/2014 1301 EST Division of Rheumatology and Clinical Immunology Chief Complaint: Joint pain HPI: Return visit for this 68-year-old male with inflammatory arthritis. He is currently on prednisone 15 mg daily and methotrexate 10 mg once a week. Since my last visit with him, there has been substantial improvement in his joint pain. He is now almost pain free and no longer has any tingling in his left hand. In addition to the methotrexate and prednisone he is also on gabapentin 400 mg 3 times daily. This has been quite helpful for his low [...] swelling or pain in the DIP, PIP orMCP joints. Wrists, elbows, shoulders, hips, knees and [...] ??? Ketones, UA 05/10/2014 Neg ??? Specific [place], Urine 05/10/2014 1.025 ??? Blood, UA 05/10/2014 [...] Info) Description 04/09/2024 16:30 EDT Office Visit [facility] Hematology & Oncology - [address] [phone] Erin Barillas MD [address] [place] [address] [address] [place] [phone] 05/18/2024 10:00 EST Office Visit [facility] Rheumatology & Immunology - [address] [phone] Tod Perez NP [address] [place] [address], [facility] 5 [place] [phone] 06/03/2024 9:[address] [facility] Cardiology Clinic [address] [place] [phone] 06/03/2024 9:[address] [facility] Cardiology Clinic [address] [place] [address] Claire Lopez NP [address] [place] [address]-[address] [place] [phone] documented as of this encounter Results * (ABNORMAL) HEMAGRAM AND DIFFERENTIAL (06/23/2014 13:39 EST) WBC 9.15 4.0 - 10.4 K/cmm 06/23/2014 14:14 [facility] RBC 5.01 4.36 - 5.78 M/cmm 06/23/2014 14:14 [facility] Hemoglobin 14.9 13.8 - 17.3 gm/dl 06/23/2014 14:14 [facility] HCT 44.4 39.5 - 50.2 % 06/23/2014 14:14 [facility] MCV 89 81 - 95 fl 06/23/2014 14:14 [facility] MCH 29.8 27.6 - 33.0 pg 06/23/2014 14:14 [facility] MCHC 33.6 32.8 - 36.4 gm/dl 06/23/2014 14:14 [facility] PLT 212 141 - 320 K/cmm 06/23/2014 14:14 [facility] RDW-CV 15.6(H) 11.8 - 14.1 % 06/23/2014 14:14 [facility] % Neutrophils 75.4 45.5 - 79.7 % 06/23/2014 14:14 [facility] % Lymphocytes 17.0 15.0 - 46.8 % 06/23/2014 14:14 [facility] % Monocytes 6.7 1.8 - 12.0 % 06/23/2014 14:14 [facility] % Eosinophils 0.3(L) 0.6 - 6.9 % 06/23/2014 14:14 [facility] % Basophils 0.6 0.2 - 1.4 % 06/23/2014 14:14 [facility] ABS Neutrophils 6.89 2.20 - 8.85 K/cmm 06/23/2014 14:14 [facility] ABS Lymphs 1.55 1.09 - 3.30 K/cmm 06/23/2014 14:14 [facility] ABS Monocytes 0.62 0.1 - 0.8 K/cmm 06/23/2014 14:14 [facility] ABS Eosinophils 0.03 0.03 - 0.61 K/cmm 06/23/2014 14:14 [facility] ABS Basophils 0.05 0.01 - 0.11 K/cmm 06/23/2014 14:14 [facility] Type of Diff: Automated 06/23/2014 14:14 [facility] Blood specimen (specimen) BLOOD SPECIMEN / Unknown 06/23/2014 13:39 EST 06/23/2014 13:51 EST Major Turner MD PACKAGES & DNA PROBE ORDERABLES [facility] [address] [place] [address] * (ABNORMAL) COMPREHENSIVE METABOLIC PANEL (CMP) (06/23/2014 13:39 EST) Potassium 4.6 3.5 - 5.0 mEq/L 06/23/2014 14:30 [facility] Sodium 143 136 - 145 mEq/L 06/23/2014 14:30 [facility] Chloride 102 96 - 110 mEq/L 06/23/2014 14:30 [facility] CO2 30 24 - 32 mEq/L 06/23/2014 14:30 [facility] Total Alkaline Phosphatase 54 38 - 126 U/L 06/23/2014 14:30 [facility] Bilirubin, Total <0.5 <1.4 mg/dl 06/23/19 15 14:30 [facility] AST 16 15 - 46 U/L 06/23/2014 14:30 [facility] ALT 26 21 - 72 U/L 06/23/2014 14:30 [facility] Albumin 4.4 3.4 - 4.9 g/dl 06/23/2014 14:30 [facility] Total Protein 6.7 6.5 - 8.3 g/dl 06/23/2014 14:30 [facility] Creatinine 1.20 0.66 - 1.25 mg/dl 06/23/2014 14:30 [facility] GFR, Calculated 60(L) >60 ml/min/1.7 3m2 06/23/2014 14:30 [facility] BUN 25 10 - 26 mg/dl 06/23/2014 14:30 [facility] Calcium 9.6 8.5 - 10.5 mg/dl 06/23/2014 14:30 [facility] Calculated Calcium 9.6 8.5 - 10.5 mg/dl 06/23/2014 14:30 [facility] Glucose, Serum 121(H) 70 - 100 mg/dl 06/23/2014 14:30 [facility] Fasting? Unknown 06/23/2014 13:39 [facility] Blood specimen (specimen) BLOOD SPECIMEN / Unknown 06/23/2014 13:39 EST 06/23/2014 13:51 EST Major Turner MD CHEMISTRY & BLOOD GA S ORDERABLES [facility] [address] [place] [address] documented in this encounter Visit Diagnoses Diagnosis Inflammatory arthritis- Primary Unspecified inflammatory polyarthropathy documented in this encounter Discontinued Medications Medication Sig Discontinue Reason Start Date End Da te gabapentin (NEURONTIN) 100 mg capsule Take 2 Caps by mouth 3 times daily. Dose adjustment 03/18/2014 06/23/2014 predniSONE (DELTASONE) 1 mg tablet 4 tablets daily or as directed. Therapy completed 02/07/2014 06/23/2014 methotrexate 2.5 mg tablet 4 tablets once a week. 05/30/2014 06/23/2014 documented as of this encounter Care Teams Barrel Brander Relationship Specialty Start Date End Date Dereck Schultz MD PCP - General 10/19/08 02/12/17 documented as of this encounter
--- OUTSIDE RECORDS SUMMARY | 2024-01-09 01:54 | XMS_ITS | Encounter Summary ---
Author Organization [facility] Address [address] [place] [address] Care Team Providers Care Cottrell Operator Name Role Phone Dereck Schultz MD Primary Care Provider U navailable Reason for Visit * Reason Onset Date Comments Medications Refill 09/17/2015 Encounter Details Date Type Department Care Team (Late st Contact Info) Description 09/17/2015 Refill [facility] Rheumatology & Immunology - [facility] [address] [place], [place] [phone] Marie Stanford PA-C [address] [place] [address] Medications Refill Social History Tobacco Use Types [...] by mouth once a week. 96 Tab 0 2015 12/08/2015 documented in this encounter Miscellaneous Notes * Telephone Encounter - Zari Mccabe RN - 2015 1239 EDTFrom: Praneeth Villanueva To: Marie Stanford PA Sent: 09/17/2015 8:44 EDT Subject: Medication Renewal Request Original authorizing provider: ALMA Bills would like a refill of the following medications: methotrexate 2.5 mg tablet [ALMA Bills] Preferred pharmacy: [id number] Comment: documented in this encounter Plan of Treatment Upcoming Encounters Date Type Department Care Team (Late st Contact Info) Description 04/09/2024 16:[address] [facility] Hematology & Oncology - [address] [phone] Erin Barillas MD 111 [facility] 2 [place] [phone] 05/18/2024 10:00 EST Office Visit [facility] Rheumatology & Immunology - [address] [phone] Tod Perez NP 111 [facility], [facility] 5 [place] [phone] 06/03/2024 9:00 EST Ancillary Procedure [facility] Cardiology Clinic [address] [place] [address] 06/03/2024 9:00 EST Office Visit [facility] Cardiology Clinic [address] [place], [place] [phone] Claire Lopez NP 130 [facility] [address] [place] [phone] documented as of this encounter Visit Diagnoses Not on filedocumented in this encounter Discontinued Medications Medication Sig Discontinue Reason Start Date End Da te methotrexate 2.5 mg tablet Take 8 Tabs by mouth once a week Reorder 06/29/2015 2015 documented as of this encounter Care Teams Cottrell Operator Relationship Specialty Start Date End Date Dereck Schultz MD PCP - General 10/19/08 02/12/17 documented as of this encounter
--- OUTSIDE RECORDS SUMMARY | 2024-01-09 01:54 | XMS_ITS | Encounter Summary ---
Author Organization [facility] Address [address] [place] [address] Care Team Providers Care Payroll Officer Name Role Phone Dereck Schultz MD Primary Care Provider U navailable Reason for Referral * Prior Authorization (Routine) - Closed Specialty Diagnoses / Procedures Referred By Marissa carney Referred To Contact Diagnoses Inflammatory polyarthritis ([facility]) Major Turner MD [address] [place] [address] Referral ID Status Reason Start Date Expiration Date V isits Requested Visits Authorized [id number] Closed Other 09/14/2014 1 1 Question Answer Medication to be Prior Authorized: prednisone 5 mg twice a day Comments The purpose of this consult request is to inform the scheduling staff that a medication needs to be prior-authorized before it is prescribed and/or administered. Reason for Visit * Reason Onset Date Comments Medications Refill 09/13/2014 Encounter Details Date Type Department Care Team (Late st Contact Info) Description 09/13/2014 Refill [facility] Rheumatology & Immunology - [facility] [address] [place] [address] Major Turner MD Medications Refill Social History [...] mg tablet 1 tab twice a day 60 Tab 1 09/14/2014 09/20/2014 documented in this encounter Miscellaneous Notes * Telephone Encounter - Lynda Treadwell RN - 09/14/2014 1112 EDT Refill signed for 5 mg bid. New order for prior auth of prednisone has been placed * Telephone Encounter - Lynda Treadwell RN - 09/14/2014 1110 EDTFrom: Praneeth Villanueva To: Major Turner MD Sent: 09/13/2014 14:40 EDT Subject: Medication Renewal Request Original authorizing provider: MD Praneeth Odom would like a refill of the following medications: predniSONE (DELTASONE) 5 mg tablet [Major Turner MD] Preferred pharmacy: [address] Comment: Praneeth needs a new prescription - please send to [facility]. The pharmacy tells me this Rx needs a prior authorization. Thank you. Augustina Villanueva documented in this encounter Plan of Treatment Upcoming Encounters Date Type Department Care Team (Late st Contact Info) Description 04/09/2024 16:30 EDT Office Visit [facility] Hematology & Oncology - [address] [address] Erin Barillas MD [address] [place] [address], Level [address] [place] [phone] 05/18/2024 10:00 EST Office Visit [facility] Rheumatology & Immunology - [facility] [address] [place], [place] [address] Tod Perez, PRICING LEAD 111 [facility] 5 [place] [phone] 06/03/2024 9:00 EST Ancillary Procedure [facility] Cardiology Clinic [address] [place] [address] 06/03/2024 9:00 EST Office Visit [facility] Cardiology Clinic [address] [place] [address] Claire Lopez NP 130 [facility] [address]OB[address]A [address] [place] [address] Scheduled Referrals Name Type Priority Associated Diagnoses Orde r Schedule AMB MEDICATION PRIOR AUTHORIZATION Outpatient Referral Routine Inflammatory polyarthritis ([facility]) Ordered: 09/14/2014 documented as of this encounter Visit Diagnoses Diagnosis Inflammatory polyarthritis ([facility])- Primary Unspecified inflammatory polyarthropathy documented in this encounter Discontinued Medications Medication Sig Discontinue Reason Start Date End Da te predniSONE (DELTASONE) 5 mg tablet 3 daily or as directed by taper. Reorder 06/06/2014 09/14/2014 documented as of this encounter Care Teams Payroll Officer Relationship Specialty Start Date End Date Dereck Schultz MD PCP - General 10/19/08 02/12/17 documented as of this encounter
--- OUTSIDE RECORDS SUMMARY | 2024-01-09 01:54 | XMS_ITS | Encounter Summary ---
Author Organization [facility] Address [address] [place] [address] Care Team Providers Care L D Rn Name Role Phone Dereck Schultz MD Primary Care Provider U morgan Encounter Details Date Type Department Care Team (Late st Contact Info) Description 06/23/2014 Phlebotomy Only [address] [address] Boiler Testing Technician, Outpatient Inflammatory arthritis Social History Tobacco Use Types Packs/Day Years [...] Visit [facility] Hematology & Oncology [address] [address] Erin Barillas MD 111 [facility], Level 2 [place] [phone] 05/18/2024 10:00 EST Office Visit [facility] Rheumatology & Immunology - [address] [phone] Tod Perez NP 111 [facility], Level 5 [place] [phone] 06/03/2024 9:00 EST Ancillary Procedure [facility] [address] [place] [address] [phone] 06/03/2024 9:00 EST Office Visit [facility] [address] [place] [address] [phone] Claire Lopez NP 130 [facility] [address] [place] [phone] documented as of this encounter Procedures Procedure Name Priority Date/Time Associated Diagnosis Comments COMPLETE BLOOD COUNT AND DIFFERENTIAL Routine 06/23/2014 13:39 EST Inflammatory arthritis COMPREHENSIVE METABOLIC PANEL (CMP) Routine 06/23/2014 13:39 EST Inflammatory arthritis documented in this encounter Results * (ABNORMAL) HEMAGRAM AND DIFFERENTIAL (06/23/2014 13:39 EST) WBC 9.15 4.0 - 10.4 K/cmm 06/23/2014 14:14 EST [facility] RBC 5.01 4.36 - 5.78 M/cmm 06/23/2014 14:14 [facility] Hemoglobin 14.9 13.8 - 17.3 gm/dl 06/23/2014 14:14 [facility] HCT 44.4 39.5 - 50.2 % 06/23/2014 14:14 [facility] MCV 89 81 - 95 fl 06/23/2014 14:14 [facility] MCH 29.8 27.6 - 33.0 pg 06/23/2014 14:14 [facility] MCHC 33.6 32.8 - 36.4 gm/dl 06/23/2014 14:14 [facility] PLT 212 141 - 320 K/cmm 06/23/2014 14:14 [facility] RDW-CV 15.6(H) 11.8 - 14.1 % 06/23/2014 14:14 [facility] % Neutrophils 75.4 45.5 - 79.7 % 06/23/2014 14:14 [facility] % Lymphocytes 17.0 15.0 - 46.8 % 06/23/2014 14:14 [facility] % Monocytes 6.7 1.8 - 12.0 % 06/23/2014 14:14 [facility] % Eosinophils 0.3(L) 0.6 - 6.9 % 06/23/2014 14:14 [facility] % Basophils 0.6 0.2 - 1.4 % 06/23/2014 14:14 [facility] ABS Neutrophils 6.89 2.20 - 8.85 K/cmm 06/23/2014 14:14 [facility] ABS Lymphs 1.55 1.09 - 3.30 K/cmm 06/23/2014 14:14 [facility] ABS Monocytes 0.62 0.1 - 0.8 K/cmm 06/23/2014 14:14 [facility] ABS Eosinophils 0.03 0.03 - 0.61 K/cmm 06/23/2014 14:14 [facility] ABS Basophils 0.05 0.01 - 0.11 K/cmm 06/23/2014 14:14 [facility] Type of Diff: Automated 06/23/2014 14:14 [facility] Blood specimen (specimen) BLOOD SPECIMEN / Unknown 06/23/2014 13:39 EST 06/23/2014 13:51 EST Major Turner MD PACKAGES & DNA PROBE ORDERABLES [facility] [address] [place] [address] * (ABNORMAL) COMPREHENSIVE METABOLIC PANEL (CMP) (06/23/2014 13:39 EST) Potassium 4.6 3.5 - 5.0 mEq/L 06/23/2014 14:30 [facility] Sodium 143 136 - 145 mEq/L 06/23/2014 14:30 [facility] Chloride 102 96 - 110 mEq/L 06/23/2014 14:30 [facility] CO2 30 24 - 32 mEq/L 06/23/2014 14:30 [facility] Total Alkaline Phosphatase 54 38 - 126 U/L 06/23/2014 14:30 [facility] Bilirubin, Total <0.5 <1.4 mg/dl 06/23/19 15 14:30 [facility] AST 16 15 - 46 U/L 06/23/2014 14:30 [facility] ALT 26 21 - 72 U/L 06/23/2014 14:30 [facility] Albumin 4.4 3.4 - 4.9 g/dl 06/23/2014 14:30 [facility] Total Protein 6.7 6.5 - 8.3 g/dl 06/23/2014 14:30 [facility] Creatinine 1.20 0.66 - 1.25 mg/dl 06/23/2014 14:30 [facility] GFR, Calculated 60(L) >60 ml/min/1.7 3m2 06/23/2014 14:30 [facility] BUN 25 10 - 26 mg/dl 06/23/2014 14:30 [facility] Calcium 9.6 8.5 - 10.5 mg/dl 06/23/2014 14:30 [facility] Calculated Calcium 9.6 8.5 - 10.5 mg/dl 06/23/2014 14:30 [facility] Glucose, Serum 121(H) 70 - 100 mg/dl 06/23/2014 14:30 [facility] Fasting? Unknown 06/23/2014 13:39 EST [facility] Blood specimen (specimen) BLOOD SPECIMEN / Unknown 06/23/2014 13:39 EST 06/23/2014 13:51 EST Major Turner MD CHEMISTRY & BLOOD GA S ORDERABLES Performing Organization Address City/State/[facility] Co de Phone Number [facility] [address] [place] [address] documented in this encounter Visit Diagnoses Diagnosis Inflammatory arthritis Unspecified inflammatory polyarthropathy documented in this encounter Care Teams L D Rn Relationship Specialty Start Date End Date Dereck Schultz MD PCP - General 10/19/08 02/12/17 documented as of this encounter
--- OUTSIDE RECORDS SUMMARY | 2024-01-09 01:54 | XMS_ITS | Encounter Summary ---
Author Organization [facility] Address [address] [place] [address] Care Team Providers Care Seedling Sorter Name Role Phone Dereck Schultz MD Primary Care Provider U morgan Encounter Details Date Type Department Care Team (Late st Contact Info) Description 05/10/2014 Results Only [facility] Rheumatology & Immunology [address] [phone] Major Turner MD Social History Tobacco Use Types Packs/Day Years [...] [facility] Hematology & Oncology [address] 573151 Erin Barillas MD 111 [facility], [facility], Level 2 [place] [address] 05/18/2024 10:00 EST Office Visit [facility] Rheumatology & Immunology - [facility] [address] [place], [place] [phone] Tod Perez, FESTUS 111 [facility], Level 5 [place] [phone] 06/03/2024 9:00 EST Ancillary Procedure [facility] [address] [place] [phone] 06/03/2024 9:00 EST Office Visit [facility] [address] [place] [address] Claire Lopez NP 130 [facility] [address] [place] [address] documented as of this encounter Procedures Procedure Name Priority Date/Time Associated Diagnosis Comments URINE MICROSCOPIC Routine 05/10/2014 15: 37 EST documented in this encounter Results * URINE MICROSCOPIC (05/10/2014 15:37 EST) WBC, UA less than 1 0 - 5 /HPF 05/10/2014 18:06 [facility] RBC, UA 1 to 5 0 - 5 /HPF 05/10/2014 18:06 [facility] Squam Epithel, UA None seen None seen /HPF 05/10/2014 18:06 [facility] Renal Epithel, UA None seen None seen /HPF 05/10/2014 18:06 [facility] Bacteria, UA None seen None seen /HPF 05/10/2014 18:06 [facility] Crystals, UA None seen /HPF 05/10/2014 18:06 [facility] Hyaline Casts, UA None seen /LPF 05/10/2014 18:06 EST [facility] UA Comment Microscopic results 05/10/2014 18:06 EST [facility] Comment: are unreliable on urines unrefrig >2hrs or refrig >8hrs. Mucus, UA Present 05/10/2014 18:06 EST [facility] URINE / Unknown 05/10/2014 1 5:37 EST 05/10/2014 17:19 EST Major Turner MD URINALYSIS ORDERABLE S [facility] [address] [place] [address] documented in this encounter Visit Diagnoses Not on filedocumented in this encounter Care Teams Seedling Sorter Relationship Specialty Start Date End Date Dereck Schultz MD PCP - General 10/19/08 02/12/17 documented as of this encounter
--- OUTSIDE RECORDS SUMMARY | 2024-01-09 01:54 | XMS_ITS | Encounter Summary ---
Author Organization [facility] Address [address] [place] [address] Care Team Providers Care Hot Dip Plater Name Role Phone Dereck Schultz MD Primary Care Provider U navailable Reason for Visit * Reason Comments Joint Pain hands hard time clos ing them Encounter Details Date Type Department Care Team (Latest Contact Info) Description 12/27/2015 9:00 EDT Office Visit [facility] Rheumatology & Immunology - [facility] [address] [place] [address] Marie Stanford PA-C [address] [place] [address] Inflammatory arthritis (Primary Dx); Encounter for long-term [...] Pressure 135/78 12/27/2015 0913 EDT Pulse 66 12/27/2015 0913 EDT Temperature - - Respiratory Rate 18 12/27/2015 0913 EDT Oxygen Saturation - - Inhaled Oxygen Concentration - - Weight 112.5 kg (248 lb) 12/27/2015 09 EDT Height 183.5 cm (6' 0.25) 12/27/2015 09 EDT Body Mass Index 33.4 12/27/2015912 EDT [...] No 12/27/2015 documented as of this encounter Discharge Diagnoses Diagnosis M19.90 Unspecified osteoarthritis, unspecified site-M19.90[ICD-10-CM] Z79.899 Other retirement (current) drug therapy-Z79.899[ICD-10-CM] documented in this encounter Patient Instructions * Patient Instructions* Marie Stanford PA - 12/27/2015 9:52 EDT No [...] Progress Notes * Marie Stanford PA - 12/27/2015 09 EDT [...] a full fist. Makes it hard to hangon to the weedwacker. AM stiffness: Lasts 30 [...] Attestation statement: Supervising Physician Sudhir Rosales MD * Della Catalan - 12/27/2015 0916 EDT REVIEW OF SYSTEMS: [...] [facility] Hematology & Oncology - [address] [phone] Erin Barillas MD [address] [place] [address] 2 [place] [phone] 05/18/2024 10:00 EST Office Visit [facility] Rheumatology & Immunology - [address] [phone] Tod Perez NP [address] [place] [address], [facility] 5 [place] [phone] 06/03/2024 9:00 EST Ancillary Procedure [facility] Cardiology Clinic [address] [place] [address] 06/03/2024 9:00 EST Office Visit [facility] [address] [place] [address] [phone] Claire Lopez NP [address] [place] [address] [address] [place] [phone] (work) documented as of this encounter Visit Diagnoses [...] by 1 mg every month as tolerated Therapy completed 03/31/2015 12/27/2015 documented as of this encounter Historical Medications * This list may reflect changes made after this encounter. Medication Sig Dispensed Refills Start Date End Date RANITIDINE HCL ORAL Take 300 mg by mouth daily. 11/17/2019 added in this encounter Care Teams Hot Dip Plater Relationship Specialty Start Date End Date Dereck Schultz MD PCP - General 10/19/08 02/12/17 documented as of this encounter
--- OUTSIDE RECORDS SUMMARY | 2024-01-09 01:54 | XMS_ITS | Encounter Summary ---
Author Organization [facility] Address [address] [place] [address] Care Team Providers Care Fretted Instrument Inspector Name Role Phone Dereck Schultz MD Primary Care Provider U navailable Reason for Visit * Reason Comments Joint Pain right or left should er 1st hour in AM Medication Management ?instruction for t apering prednisone (cut down prednisone to 2.5 mg in AM, 5 mg in PM to not run out before getting insurance auth). ?cut down gabapentin Bruise left upper arm Encounter Details Date Type Department Care Team (Latest Contact Info) Description 09/20/2014 15:05 EDT Office Visit [facility] Rheumatology & Immunology - [facility] [address] [place] [address] Major Turner MD Inflammatory arthritis (Primary Dx); LBP (low back pain); Osteoarthritis Social History Tobacco Use Types Packs/Day Years [...] for inflammatory arthritis (714.9) 60 Tab 5 09/20/2014 06/29/2015 documented in this encounter Progress Notes * Major Turner MD - 09/20/2014 1502 EDT [...] degenerative disk disease, left lower extremity weakness. Heis currently on immunosuppressive therapy with methotrexate 15 mg orally once a week and prednisone, the dose of which has now been reduced to 7.5 mg per day. He also continues on gabapentin 400 mg 3times daily. He has not needed to take any hydrocodone now for the last 2 to 3 months as the pain in his back and left leg, and in fact, the rest of his joints has been much improved. Currently, he has about 10 minutes of morning stiffness. He has occasional shoulder pain. Since my last visit with him, he has had a flareup of his chronic rosacea. [...] tenderness in the DIP, PIP or MCP joints.Wrists, elbows, shoulders, hips, knees and ankles reveal [...] disk disease, and facet joint degenerative arthropathy, symptomatically improved. 4. Left lower extremity weakness, which has [...] [facility] Hematology & Oncology - [address] [phone] Erin Barillas MD 111 [facility], [facility] 2 [place] [phone] 05/18/2024 10:00 EST Office Visit [facility] Rheumatology & Immunology - [address] [phone] Tod Perez NP 111 [facility], [facility] 5 [place] [address] 06/03/2024 9:00 EST Ancillary Procedure [facility] [address] [place] [address] 06/03/2024 9:00 EST Office Visit [facility] [address] [place] [address] [phone] Claire Lopez NP [address] [place] [address]-[address] [place] [address] documented as of this encounter Results * (ABNORMAL) HEMAGRAM AND DIFFERENTIAL (09/20/2014 15:43 EDT) WBC 7.10 4.0 - 10.4 K/cmm 09/20/2014 16:24 EDT [facility] RBC 4.73 4.36 - 5.78 M/cmm 09/20/2014 16:24 EDT [facility] Hemoglobin 14.7 13.8 - 17.3 gm/dl 09/20/2014 16:24 EDT [facility] HCT 43.7 39.5 - 50.2 % 09/20/2014 16:24 EDT [facility] MCV 92 81 - 95 fl 09/20/2014 16:24 EDT [facility] MCH 31.1 27.6 - 33.0 pg 09/20/2014 16:24 [facility] MCHC 33.7 32.8 - 36.4 gm/dl 09/20/2014 16:24 [facility] RDW-CV 15.7(H) 11.8 - 14.1 % 09/20/2014 16:24 [facility] RDW-SD 49.4(H) 36.5 - 45.9 fl 09/20/2014 16:24 [facility] PLT 210 141 - 320 K/cm 09/20/2014 16:24 [facility] MPV 9.7 7.5 - 11.2 fl 09/20/2014 16:24 [facility] % Neutrophils 65.9 45.5 - 79.7 % 09/20/2014 16:24 [facility] % Lymphocytes 24.7 15.0 - 46.8 % 09/20/2014 16:24 [facility] % Monocytes 7.9 1.8 - 12.0 % 09/20/2014 16:24 [facility] % Eosinophils 0.9 0.6 - 6.9 % 09/20/2014 16:24 [facility] % Basophils 0.6 0.2 - 1.4 % 09/20/2014 16:24 [facility] ABS Neutrophils 4.68 2.20 - 8.85 K/cmm 09/20/2014 16:24 [facility] ABS Lymphs 1.76 1.09 - 3.30 K/cm 09/20/2014 16:24 [facility] ABS Monocytes 0.56 0.1 - 0.8 K/cmm 09/20/2014 16:24 [facility] ABS Eosinophils 0.06 0.03 - 0.61 K/cm 09/20/2014 16:24 [facility] ABS Basophils 0.04 0.01 - 0.11 K/cmm 09/20/2014 16:24 [facility] Type of Diff: Automated 09/20/2014 16:24 [facility] Blood specimen (specimen) BLOOD SPECIMEN / Unknown 09/20/2014 15:43 EDT 09/20/2014 16:00 EDT Major Turner MD PACKAGES & DNA PROBE ORDERABLES [facility] [address] [place] [address] * (ABNORMAL) COMPREHENSIVE METABOLIC PANEL (CMP) (09/20/2014 15:43 EDT) Potassium 4.5 3.5 - 5.0 mEq/L 09/20/2014 16:55 [facility] Sodium 143 136 - 145 mEq/L 09/20/2014 16:55 [facility] Chloride 100 96 - 110 mEq/L 09/20/2014 16:55 [facility] CO2 30 24 - 32 mEq/L 09/20/2014 16:55 [facility] Total Alkaline Phosphatase 64 38 - 126 U/L 09/20/2014 16:55 [facility] Bilirubin, Total 0.6 <1.4 mg/dl 09/21/19 15 16:55 [facility] AST 22 15 - 46 U/L 09/20/2014 16:55 [facility] ALT 38 21 - 72 U/L 09/20/2014 16:55 [facility] Albumin 4.5 3.4 - 4.9 g/dl 09/20/2014 16:55 [facility] Total Protein 6.7 6.5 - 8.3 g/dl 09/20/2014 16:55 [facility] Creatinine 1.01 0.66 - 1.25 mg/dl 09/20/2014 16:55 [facility] GFR, Calculated >60 >60 ml/min/1.7 3m2 09/20/2014 16:55 [facility] BUN 19 10 - 26 mg/dl 09/20/2014 16:55 [facility] Calcium 9.7 8.5 - 10.5 mg/dl 09/20/2014 16:55 [facility] Calculated Calcium 9.6 8.5 - 10.5 mg/dl 09/20/2014 16:55 EDT [facility] Glucose, Serum 102(H) 70 - 100 mg/dl 09/20/2014 16:55 EDT [facility] Fasting? No 09/20/2014 15:44 EDT [facility] Blood specimen (specimen) BLOOD SPECIMEN / Unknown 09/20/2014 15:43 EDT 09/20/2014 16:00 EDT Major Turner MD CHEMISTRY & BLOOD GA S ORDERABLES [facility] [address] [place] [address] documented in this encounter Visit Diagnoses Diagnosis Inflammatory arthritis- Primary Unspecified inflammatory polyarthropathy LBP (low back pain) Lumbago Osteoarthritis Osteoarthrosis, unspecified whether generalized or localized, unspecified site documented in this encounter Discontinued Medications Medication Sig Discontinue Reason Start Date End Da te predniSONE (DELTASONE) 5 mg tablet 1 tab twice a day Reorder 09/14/2014 09/20/2014 documented as of this encounter Care Teams Fretted Instrument Inspector Relationship Specialty Start Date End Date Dereck Schultz MD PCP - General 10/19/08 02/12/17 documented as of this encounter
--- OUTSIDE RECORDS SUMMARY | 2024-01-09 01:55 | XMS_ITS | Encounter Summary ---
Author Organization [facility] Address [address] [place] [address] Care Team Providers Care Lacquer Maker Name Role Phone Dereck Schultz MD Primary Care Provider U morgan Encounter Details Date Type Department Care Team (Latest Contact Info) Description 09/22/2013 8:59 EDT - 09/22/2013 23:59 EDT Hospital Encounter [facility] Neurophysiology - [facility] [place] [address] [place] [address] Unknown, Provider, Melchor Chan MD Emg, MD Discharge Disposition: Home or Self Care Social [...] Refills Start Date End Date acetaminophen (TYLENOL) 650 mg tablet Take 1 Tab by mouth every 4 hours as needed for Pain. 60 Tab 3 04/10/2012 01/03/2014 aspirin chewable 81 mg tablet Take 81 mg by mouth daily. 12/07/2018 finasteride (PROSCAR) 5 mg tablet Take 5 mg by mouth daily. 10/24/2022 HYDROcodone-acetaminophen (VICODIN) 5-300 mg tablet Take 2 Tabs by mouth at bedtime. 03/29/2015 ibuprofen (MOTRIN) 200 mg tablet Take 200 mg by mouth every 6 hours as needed for Pain. 12/15/2020 metoprolol (LOPRESSOR) 25 mg tablet Take 25 mg by mouth daily. 11/17/2019 omeprazole (PRILOSEC) 20 mg capsule Take 40 mg by mouth daily. 05/11/2019 PREDNISONE ORAL Take 20 mg by mouth daily 20 mg alt with 10 mg. 02/07/2014 simvastatin (ZOCOR) 40 mg tablet Take 40 mg by mouth every evening. 11/09/2020 documented as of this encounter Discharge Disposition Disposition Code Departure Means Destination Home or Self Long Term documented in this encounter Procedure Notes * Melchor Chan MD - 09/22/2013 1533 EDT [facility] ELECTRODIAGNOSTIC MEDICINE CONSULTATION - 09/22/2013 Major Turner MD [facility] - Rheumatology [address] [place] [address] Turner: Thank you for your referral of Praneeth Villanueva, seen in electrodiagnostic consultation on 09/22/2013.This 68-year-old gentleman has noted persistent left hand [...] prolonged and the left median motor conduction study showed mild slowing in the velocity. The left [...] amplitude. The ulnar sensory amplitudes were mildly reducedin both hands. Needle examination was then performed in proximal muscles of the left lower extremity because of his perceived weakness in that limb. Needle exam of the iliopsoas, tensor fascia jv, tibialis anterior, gastrocnemius and vastus lateralis was unremarkable. Interpretation: Today's study shows prolonged sensory latencies in both median nerves across the wrist and in the left median motor conduction study across the wrist. Findings are more prominent on the left and are consistent with CTS. Additionally, there [...] 10 13 AM - Melchor Chan MD Dictation ID: [id number] cc: Major Turner MD, [facility] - Rheumatology [address] [place] [address] documented in this encounter Plan of Treatment Upcoming Encounters Date Type Department Care Team (Late st Contact Info) Description 04/09/2024 16:30 EDT Office Visit [facility] Hematology & [place] [address] Erin Barillas MD [address] [place] [address], [address] [place] [phone] 05/18/2024 10:00 EST Office Visit [facility] Rheumatology & Immunology - [facility] [address] [place], [place] [address] Tod Perez, ENGRAVING PLATE MAKER 111 [facility] 5 [place] [phone] 06/03/2024 9:00 EST Ancillary Procedure [facility] [address] [place] [phone] 06/03/2024 9:00 EST Office Visit [facility] [address] [place] [address] [phone] Claire Lopez NP 130 [facility] [address] [place] [address] Pending Results Name Type Priority Associated Diagnoses Date /Time OUTSIDE CD - OTHER NEURO Imaging 01/25/2014 11:52 EDT Scheduled Orders Name Type Priority Associated Diagnoses Orde r Schedule OUTSIDE CD - OTHER NEURO Imaging One Time for 1 Occurrences starting 01/25/2014 until 01/25/2014 documented as of this encounter Procedures Procedure Name Priority Date/Time Associated Diagnosis Comments ELECTROMYOGRAM - SCANNED 09/22/2013 11:43 EDT documented in this encounter Results * ELECTROMYOGRAM - SCANNED (09/22/2013 11:43 EDT) 09/22/2013 11:4 3 EDT Scan 2 Insight Leader PROCEDURE/MINOR JHOAN GICAL ORDERABLES documented in this encounter Visit Diagnoses Not on filedocumented in this encounter Care Teams Lacquer Maker Relationship Specialty Start Date End Date Dereck Schultz MD PCP - General 10/19/08 02/12/17 documented as of this encounter
--- OUTSIDE RECORDS SUMMARY | 2024-01-09 01:55 | XMS_ITS | Encounter Summary ---
Author Organization [facility] Address [facility] [place] [address] Care Team Providers Care Diplomatic Interpreter/Translator Name Role Phone Vianey Bocanegra APRN Primary Care Provider [phone] Reason for Visit * Reason Comments Follow-up Encounter Details Date Type Department Care Team (Late st Contact Info) Description 10/04/2021 9:15 AM EDT Office Visit Dermatology at [address] [phone] Dustin Espinoza MD [address] [facility] [address] Rosacea Social History Tobacco Use Types Packs/Day Years Used Date Smoking Tobacco: Never Smokeless Tobacco: Never Sex and Gender Information Value Date Recorded Sex Assigned at Not on file Gender Identity Not on file Sexual Orientation Not on file documented as of this encounter Progress Notes * Dustin Espinoza MD - 10/04/2021 9:15 AM [...] right cheek.. They spent the winter in [place]. The rash improves when he takes oral [...] a year ago he was seen at [facility] and a $600 prescription was given to them. They do not want to use that again nor do they want for Praneeth to be on long-termoral antibiotics. 2. Begin metronidazole 0.75% gel apply on a twice daily basis first for 6 weeks then use this once daily once every other day. 3. Metronidazole 0.75% gel dispense 45 g with 5 refills apply once to twice daily. We will call this into [email or web address] in [facility]. If too expensive there, they are familiar with [facility] and I gave thema written prescription to fill at the pharmacy of his choice 4. Return to clinic here as needed CC: Vianey Bocanegra APRN documented in this encounter Plan of Treatment Upcoming Encounters Date Type Department Care Team (Late st Contact Info) Description 02/12/2024 8:30 AM EDT Office Visit Dermatology at [address] [place] [address] Dustin Espinoza MD [address] [facility] [place] [address] documented as of this encounter Visit Diagnoses Diagnosis Rosacea documented in this encounter Care Teams Diplomatic Interpreter/Translator Relationship Specialty Start Date End Date Vianey Bocanegra APRN [address] [place] [address] PCP - General Family Medicine 10/04/21 documented as of this encounter
--- OUTSIDE RECORDS SUMMARY | 2024-01-09 01:55 | XMS_ITS | Encounter Summary ---
Author Organization [facility] Address [address] [place] [address] Care Team Providers Care Certified Scrum Master Name Role Phone Dereck Schultz MD Primary Care Provider U navailable Reason for Visit * Reason Comments Joint Swelling left wrist- wears br tom Medication Management currently on 30 mg of prednisone- doing better Encounter Details Date Type Department Care Team (Latest Contact Info) Description 10/11/2013 12:45 EDT Office Visit [facility] Rheumatology & Immunology - [facility] [address] [place] [address] Major Turner MD Inflammatory arthritis (Primary Dx); CTS (carpal tunnel syndrome); Pain in joint, multiple sites Social History [...] JTS[ICD-9-CM] documented in this encounter Progress Notes * Major Turner MD - 10/11/2013 1254 EDT Division of Rheumatology and Clinical Immunology Chief Complaint Patient presents with ??? Joint Swelling left wrist- wears brace ??? 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 Since my last visit was him he has continued on prednisone 30 mg daily and reports substantial improvement in his joint pain. At this time, he only has some intermittent tingling in the 2nd, 3rd and 4th fingers of his left hand and he is wearing a wrist brace. 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 The wrists, elbows, shoulders, [...] MEDICINE CONSULTATION - 09/22/2013 Major Turner MD [facility] - Rheumatology [address] [place] [address] Turner: Thank you for your [...] to 20 mg daily. I will see him again in a month. Barriers to learning identified: No Patient verbalizes understanding and agrees with plan Yes LOPEZ MADISON RN 10/11/2013 12:54 documented in this encounter Plan of Treatment Upcoming Encounters Date Type Department Care Team (Late st Contact Info) Description 04/09/2024 16:30 EDT Office Visit [facility] Hematology & Oncology - [address] [phone] Erin Barillas MD [address] [place] [address] [address] [place] [phone] 05/18/2024 10:00 EST Office Visit [facility] Rheumatology & Immunology - [address] [phone] Tod Perez NP [address] [place] [address], [facility] [address] [place] [phone] 06/03/2024 9:00 EST Ancillary Procedure [facility] Cardiology Clinic [address] [place] [phone] 06/03/2024 9:00 EST Office Visit [facility] Cardiology Clinic [address] [place] [address] Claire Lopez NP [address] [place] [address]-[address] [place] [phone] documented as of this encounter Visit Diagnoses Diagnosis Inflammatory arthritis- Primary Unspecified inflammatory polyarthropathy CTS (carpal tunnel syndrome) Carpal tunnel syndrome Pain in joint, multiple sites documented in this encounter Care Teams Certified Scrum Master Relationship Specialty Start Date End Date Dereck Schultz MD PCP - General 10/19/08 02/12/17 documented as of this encounter
--- OUTSIDE RECORDS SUMMARY | 2024-01-09 01:55 | XMS_ITS | Encounter Summary ---
Author Organization [facility] Address [address] [place] [address] Care Team Providers Care Hourly Sign Language Interpreter Name Role Phone Dereck Schultz MD Primary Care Provider U navailable Reason for Visit * Reason Comments Follow-up has decreased predni sone to 20 mg without any increase in pain. Encounter Details Date Type Department Care Team (Latest Contact Info) Description 11/18/2013 15:05 EDT Office Visit [facility] Rheumatology & Immunology - [facility] [address] [place] [address] Major Turner MD Inflammatory polyarthritis ([facility]) (Primary Dx); Numbness and tingling in left hand; Rash and other nonspecific skin eruption Social History Tobacco Use Types Packs/Day Years [...] NEC[ICD-9-CM] documented in this encounter Patient Instructions * Patient Instructions* Major Turner MD - 11/18/2013 15:19 EDT Reduce prednisone to 1/2 tablet one day with 1 tablet the next day for 3 weeks, the 1/2 tablet daily documented in this encounter Progress Notes * Major Turner MD - 11/18/2013 1451 EDT Division of Rheumatology and Clinical Immunology Chief Complaint Patient presents with ??? Follow-up has decreased prednisone to 20 mg without any increase in pain. HPI: Return visit for this 68-year-old male with inflammatory polyarthritis. This has been associated with tingling in the left hand, thought to be due to carpal tunnel syndrome. 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 This was not [...] hand, which may be due to some residual median nerve irritation from this inflammatory process. 3. Solitary skin lesion, left forearm, etiology unclear. On further review, he tells me he has had these spots come up periodically over the last 4 years, but they are not painful and seem to go awaywithin a couple of weeks of when he gets them. Recommendations/Evaluation: I have gone ahead and given him instructions on further reducing his prednisone dose so alternate 20 mg 1 day with 10 mg the next day for the next 3 weeks and then to reduce the dose further at 10 mgdaily. I will see him again in 6 weeks. Barriers to learning identified: No Patient verbalizes understanding and agrees with plan Yes Major Turner MD 11/18/2013 15:28 documented in this encounter Plan of Treatment Upcoming Encounters Date Type Department Care Team (Late st Contact Info) Description 04/09/2024 16:30 EDT Office Visit [facility] Hematology & Oncology - [address] [phone] Erin Barillas MD [address] [place] [address], [facility] [address] [place] [phone] 05/18/2024 10:00 EST Office Visit [facility] Rheumatology & Immunology - [address] [phone] Tod Perez NP [address] [place] [address], [facility] [address] [place] [phone] 06/03/2024 9:[address] [facility] Cardiology Clinic [address] [place] [phone] 06/03/2024 9:[address] [facility] Cardiology Clinic [address] [place] [address] Claire Lopez, FESTUS [address] [place] [address] documented as of this encounter Visit Diagnoses Diagnosis Inflammatory polyarthritis ([facility])- Primary Unspecified inflammatory polyarthropathy Numbness and tingling in left hand Disturbance of skin sensation Rash and other nonspecific skin eruption documented in this encounter Care Teams Hourly Sign Language Interpreter Relationship Specialty Start Date End Date Dereck Schultz MD PCP - General 10/19/08 02/12/17 documented as of this encounter
--- OUTSIDE RECORDS SUMMARY | 2024-01-09 01:55 | XMS_ITS | Encounter Summary ---
Author Organization [facility] Address [address] [place] [address] Care Team Providers Care Sustainability Engineer Name Role Phone Dereck Schultz MD Primary Care Provider U navailable Reason for Visit * Reason Comments Joint Pain hips Rash spot on upper left a rm area Encounter Details Date Type Department Care Team (Latest Contact Info) Description 02/07/2014 15:45 EDT Office Visit [facility] Rheumatology & Immunology - [facility] [address] [place] [address] Major Turner MD Inflammatory arthritis (Primary Dx); LBP (low back pain); CTS (carpal tunnel syndrome) Social History Tobacco Use Types Packs/Day Years [...] SYNDROME[ICD-9-CM] documented in this encounter Patient Instructions * Patient Instructions* Major Turner MD - 02/07/2014 15:51 EDT Reduce prednisone to 9 mg daily with breakfast for 30 days Then 8 mg daily for 30 days Then 7 mg daily for 30 days, until return visit documented in this encounter Ordered Prescriptions Prescription Sig Dispensed Refills Start Date End Da te predniSONE (DELTASONE) 1 mg tablet 4 tablets daily or as directed. 100 Tab 5 02/07/2014 06/23/2014 predniSONE (DELTASONE) 5 mg tablet 1 daily or as directed. 100 Tab 3 02/07/2014 06/06/2014 documented in this encounter Progress Notes * Major Turner MD - 02/07/2014 1526 EDT Division of Rheumatology and Clinical Immunology Chief Complaint Patient presents with ??? Joint Pain hips ??? Rash spot on upper left arm area HPI: Return visit for this 68-year-old gentleman with an inflammatory polyarthritis. Since my last visitwith him, he has been doing well. In [...] has some mild numbness in his left handand left foot. 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 Wrists, elbows, shoulders,hips, knees and ankles reveal no pain with passive motion. Mid-foot and MTP joints are nontender. There is an area of erythema and scale on the upper left arm between 1 and 2 cm in diameter, which isnot raised. LABS No visits with results within [...] will reduce that in 30 days to 8mg per day and 30 days later to [...] [facility] - [address] [phone] Erin Barillas MD [address] [place] [address], [address] [place] [phone] 05/18/2024 10:00 EST Office Visit [facility] Rheumatology & Immunology - [address] 057261 Tod Perez NP [address] [facility], [address] [place] [address] 06/03/2024 9:00 EST Ancillary Procedure [facility] Cardiology Clinic [address] [place], [place] [phone] 06/03/2024 9:00 EST Office Visit [facility] Cardiology Clinic [address] [place] [address] Claire Lopez NP [address] [facility] [address] [place] [address] documented as of this encounter Visit Diagnoses Diagnosis Inflammatory arthritis- Primary Unspecified inflammatory polyarthropathy LBP (low back pain) Lumbago CTS (carpal tunnel syndrome) Carpal tunnel syndrome documented in this encounter Discontinued Medications Medication Sig Discontinue Reason Start Date End Da te PREDNISONE ORAL Take 20 mg by mouth daily 20 mg alt with 10 mg. 02/07/2014 documented as of this encounter Care Teams Sustainability Engineer Relationship Specialty Start Date End Date Dereck Schultz MD PCP - General 10/19/08 02/12/17 documented as of this encounter
--- OUTSIDE RECORDS SUMMARY | 2024-01-09 01:55 | XMS_ITS | Encounter Summary ---
Author Organization [facility] Address [facility] [place] [address] Care Team Providers Care Trimmer Machine Operator Name Role Phone Vianey Bocanegra APRN Primary Care Provider [phone] Reason for Visit * Reason Comments Annual Exam Encounter Details Date Type Department Care Team (Late st Contact Info) Description 01/28/2023 10:00 AM EDT Office Visit Dermatology at [address] [phone] Dustin Espinoza MD [address] [facility] [place] [address] Rosacea; Nevus; AK (actinic keratosis) Social History Tobacco Use Types Packs/Day Years Used Date Smoking Tobacco: Never Smokeless Tobacco: Never Sex and Gender Information Value Date Recorded Sex Assigned at Not on file Gender Identity Not on file Sexual Orientation Not on file documented as of this encounter Progress Notes * Dustin Espinoza MD - 01/28/2023 10:00 AM EDT Problem: 1. Skin checkup 2. Patient on hydroxyurea for polycythemia vera 3. Rosacea on metronidazole 0.75% gel. Praneeth follows up today with his Augustina. His facepiece line supervisor at [facility] recommend that he get a yearly skin checkup given the fact that he is on hydroxyurea. He has not noted any particular lesions of concern today, except for a dry spot behind his left ear. He is been getting styes and has had some issues with rosacea on his face. We have used meant metronidazole in the past. Because of some particular bad styes while in [place] they were seen at an urgent care center and he was started on washing the area with baby shampoo on a daily basis.. While this has helped decrease the frequency and the number of styes he still gets them. Hematologically she states that his ferritin is low and his vitamin D level is low. He still getting phlebotomy. Physical examination reveals a pleasant 77-year-old gentleman who has a benign examination of the head and the neck the chest the back the hands on forearms thighs and calves. Behind his left ear he has an actinic keratosis. There is no evidence of any cutaneous malignancy today. Assessment plan: Skin examination 1. Patient reassured about his benign skin examination 2. Continue to once yearly skin checkups 3. Continue sun avoidance precautions Rosacea with ocular styes 1. Continue continue metronidazole 0.75% gel applying on it once twice daily basis to face. 2. Continue using baby shampoo to clean eyelids and prevent blepharitis/styes 3. Discussed the option of oral doxycycline which will we will did not pursue today. Actinic keratosis left posterior helix 1. LN 2 x 2 applied to posterior ear site. cc: Vianey Barillas MD, documented in this encounter Plan of Treatment Upcoming Encounters Date Type Department Care Team (Late st Contact Info) Description 02/12/2024 8:30 AM EDT Office Visit Dermatology at [address] [phone] Dustin Espinoza MD [address] [place] [address] [place] [address] documented as of this encounter Visit Diagnoses Diagnosis Rosacea Nevus Benign neoplasm of skin, site unspecified AK (actinic keratosis) Actinic keratosis documented in this encounter Care Teams Trimmer Machine Operator Relationship Specialty Start Date End Date Vianey Bocanegra APRN [address] [place] [address] PCP - General Family Medicine 10/04/21 documented as of this encounter
--- OUTSIDE RECORDS SUMMARY | 2024-01-09 01:55 | XMS_ITS | Encounter Summary ---
Author Organization [facility] [address] Care Team Providers Care [facility] Name Role Phone Vianey Bocanegra CUSHION COVER INSPECTOR Primary Care Provider [phone] Encounter Details Date Type Department Care Team (Late st Contact Info) Description 10/04/2021 Refill Dermatology at [address] [phone] Danya Taylor LPN Social History Tobacco Use Types Packs/Day Years [...] 8:30 AM EDT Office Visit Dermatology at [address] [phone] Dustin Espinoza MD [address] [place] [address] DERMATOLOGY [place], [place] [phone] documented as of this encounter Visit Diagnoses Not on filedocumented in this encounter Care Teams [facility] Relationship Specialty Start Date End Date Vianey Bocanegra APRN [address] [place] [address] PCP - General Family Medicine 10/04/21 documented as of this encounter
--- OUTSIDE RECORDS SUMMARY | 2024-01-09 01:55 | XMS_ITS | Encounter Summary ---
Author Organization [facility] Address [address] [place] [address] Care Team Providers Care Gaming Commissioner Name Role Phone Dereck Narvaez MD Primary Care Provider U vinnyailpiero Encounter Details Date Type Department Care Team (Late st Contact Info) Description 12/21/2003 Results Only [facility] conversion [address] [place] [address] Deon Logan MD [address] [place] [phone] Social History Tobacco Use Types Packs/Day Years Used Date Smoking Tobacco: Never Assessed Sex and Gender Information Value Date Recorded Sex Assigned at Not on file Gender Identity Male 05/11/2019 13:17 EST Sexual Orientation Not on file documented as of this encounter Plan of Treatment Upcoming Encounters Date Type Department Care Team (Late st Contact Info) Description 04/09/2024 16:30 EDT Office Visit [facility] Hematology & Oncology - [address] [address] Erin Barillas MD 111 [facility], Level [address] [place] [phone] 05/18/2024 10:00 EST Office Visit [facility] Rheumatology & Immunology [address] [phone] Tod Perez, FESTUS [address] [facility], Level [address] [place] [address] 06/03/2024 9:00 EST Ancillary Procedure [facility] Cardiology Clinic [address] [place], [place] [address] 06/03/2024 9:00 EST Office Visit [facility] Cardiology Clinic [address] [place], [place] [phone] Claire Lopez NP 130 [facility] [address] [place] [address] documented as of this encounter Procedures Procedure Name Priority Date/Time Associated Diagnosis Comments SURGICAL PATHOLOGY Routine 12/21/2003 0:00 EDT documented in this encounter Results * SURGICAL PATHOLOGY (12/21/2003 0:00 EDT) Pathology Report: SURGICAL PATHOLOGY REPORT Reports generated via electronic interface contain original data; however they are lacking the format of the original report. Caution should be taken when reading/interpreti ng unformatted reports. Name: ? DEON VILLANUEVA ? Accession #: ? [id number] ? : ? 1945 (Age: 58) ??M ? Collect Date: ? 12/21/2003 ? Location: ? [facility] ? Receive Date: ? 12/23/2003 ? Provider: MISSY LOGAN MD Copy to: DERECK NARVAEZ MD ? Final Pathologic Diagnosis: ? Colon, 30 cm, polypectomy: - Tubular adenoma. Document reviewed and electronically signed by: FLOR OSORIO MD Report ??Date: 12/27/2003 16:06 By the signature above, the attending physician certifies that he/she has personally conducted a gross and/or microscopic examination of the described specimens and rendered or confirmed the above diagnosis. Specimen(s) Received: ? Polyp 30 cm Clinical History: ? Screening colonoscopy; polyp @ 30 cm Gross Description: ? Received in Hollande's fixative labelled [place] and polyp 30 cm are two martínez-pink, irregular soft tissue fragments measuring 0.2 x 0.2 x 0.2 cm and 0.7 x 0.6 x 0.3 cm. ??The specimen is entirely submitted in one cassette. ??(Pooja Cruz)/modesta End of Report JOHN [facility] 12/21/2003 12/23/2003 10: 30 EDT Deon Logan MD PATHOLOGY ORDERABLES [facility] [address] [place] [address] documented in this encounter Visit Diagnoses Not on filedocumented in this encounter Care Teams Gaming Commissioner Relationship Specialty Start Date End Date Dereck Narvaez MD PCP - General 10/19/08 02/12/17 documented as of this encounter
--- OUTSIDE RECORDS SUMMARY | 2024-01-09 01:55 | XMS_ITS | Encounter Summary ---
Author Organization [facility] Address [address] [place] [address] Care Team Providers Care Horse Rancher Name Role Phone Dereck Narvaez MD Primary Care Provider U morgan Encounter Details Date Type Department Care Team (Late st Contact Info) Description 06/24/2007 Results Only [facility] conversion [address] [place] [address] Deon Logan MD [address] [place] [phone] Social History Tobacco Use Types Packs/Day Years [...] Visit [facility] Hematology & Oncology - [address] [phone] Erin Barillas MD 111 [facility], Level 2 [place] [phone] 05/18/2024 10:00 EST Office Visit [facility] Rheumatology & Immunology [address] [phone] Tod Perez, FESTUS 111 [facility], Level 5 [place] [address] 06/03/2024 9:00 EST Ancillary Procedure [facility] Cardiology Clinic [address] [place] [address] 06/03/2024 9:00 EST Office Visit [facility] Cardiology Clinic [address] [place], [place] [phone] Claire Lopez NP [address] [facility] [address]-A [address] [place] [address] documented as of this encounter Procedures Procedure Name Priority Date/Time Associated Diagnosis Comments SURGICAL PATHOLOGY Routine 06/24/2007 0:00 EST documented in this encounter Results * SURGICAL PATHOLOGY (06/24/2007 0:00 EST) Pathology Report: SURGICAL PATHOLOGY REPORT Reports generated via electronic interface contain original data; however they are lacking the format of the original report. Caution should be taken when reading/interpreting unformatted reports. Name: ? DEON VILLANUEVA ? Accession #: ? [id number] ? : ? 1945 (Age: 61) ??M ? Collect Date: ? 06/24/2007 ? Location: ? [facility] ? Receive Date: ? 06/25/2007 ? Provider: MISSY LOGAN MD Copy to: DERECK NARVAEZ MD ? Final Pathologic Diagnosis: A. ?Colon, 26 cm, polyp, biopsy: 1. ?Hyperplastic polyp. ??See comment. B. ?Colon, 30 cm, polyp, biopsy: 1. ?Benign fibroblastic polyp. See comment. C. ?Colon, 40 cm, polyp, biopsy: 1. ?Hyperplastic polyp with cautery artifact. D. ?Colon, transverse, biopsies: 1. ?Fragments of hyperplastic polyp. Comment: ? Sections (A) and (B) were shown at intradepartmental consultation conference on 06/26/07. (Pooja Adkins) Document reviewed and electronically signed by: DOLORES ADKINS MD Report ??Date: 06/26/2007 15:38 By the signature above, the attending physician certifies that he/she has personally conducted a gross and/or microscopic examination of the described specimens and rendered or confirmed the above diagnosis. Specimen(s) Received: A. ?Polyp at 26 cm B. ? Polyp at 30 cm C. ? Polyp at 40 cm D. ? Transverse colon Clinical History: ? Hx of polyps Gross Description: ? Received in Hollande's fixative labelled Colgrove and #1 polyp at 26 cm is a 0.5 x 0.5 x 0.3 cm firm, slightly lobular sessile polyp which is bisected and submitted entirely as (A). Received in Hollande's fixative labelled Colgrove and #2 polyp at 30 cm is a 0.3 x 0.3 x 0.2 cm firm, smooth-surface sessile polyp which is bisected and submitted entirely as (B). Received in Hollande's fixative labelled Colgrove and #3 polyp at 40 cm is a 0.9 x 0.2 x 0.2 cm piece of tissue which is submitted intact as (C). Received in Hollande's fixative labelled Colgrove and #4 transverse colon are two firm pieces of tissue each of which measures 0.2 x 0.2 x 0.2 cm which are submitted intact as (D). (Raul Bartholomew)/mpl End of Report [facility] 06/24/2007 06/25/2007 10: 10 EST Deon Logan MD PATHOLOGY ORDERABLES [facility] [address] [place] [address] documented in this encounter Visit Diagnoses Not on filedocumented in this encounter Care Teams Horse Rancher Relationship Specialty Start Date End Date Dereck Narvaez MD PCP - General 10/19/08 02/12/17 documented as of this encounter
--- OUTSIDE RECORDS SUMMARY | 2024-01-09 01:55 | XMS_ITS | Encounter Summary ---
Author Organization [facility] Address [address] [place] [address] Care Team Providers Care Counseling Center Director Name Role Phone Dereck Narvaez MD Primary Care Provider U vinnyailpiero Encounter Details Date Type Department Care Team (Late st Contact Info) Description 11/17/2007 Results Only [facility] conversion [address] [place] [address] Deon Logan MD [address] [place] [phone] Social History Tobacco Use Types Packs/Day Years [...] [facility] Hematology & Oncology - [address] [phone] Erin Barillas MD 111 [facility], Level 2 [place] [phone] 05/18/2024 10:00 EST Office Visit [facility] Rheumatology & Immunology [address] [address] Tod Perez, FESTUS 111 [facility], Level 5 [place] [address] 06/03/2024 9:00 EST Ancillary Procedure [facility] Cardiology Clinic [address] [place], [place] [phone] 06/03/2024 9:00 EST Office Visit [facility] Cardiology Clinic [address] [place], [place] [phone] Claire Lopez NP 130 [facility] [address]OB[facility] [address] [place] [address] documented as of this encounter Procedures Procedure Name Priority Date/Time Associated Diagnosis Comments SURGICAL PATHOLOGY Routine 11/17/2007 0:00 EDT documented in this encounter Results * SURGICAL PATHOLOGY (11/17/2007 0:00 EDT) Pathology Report: SURGICAL PATHOLOGY REPORT Reports generated via electronic interface contain original data; however they are lacking the format of the original report. Caution should be taken when reading/interpretin g unformatted reports. Name: ? DEON VILLANUEVA ? Accession #: ? [id number] ? : ? 1945 (Age: 62) ??M ? Collect Date: ? 11/17/2007 ? Location: ? [facility] ? Receive Date: ? 11/17/2007 ? Provider: MISSY LOGAN MD Copy to: DERECK NARVAEZ MD ? Final Pathologic Diagnosis: A. ?Stomach, polyp, biopsies: 1. ?Fundic gland polyp. B. ?Esophagus, gastroesophageal junction, biopsy: 1. ?Squamocolumnar-li ne mucosa with acute and chronic inflammation and reactive epithelial changes. ? - PAS stain for fungal organisms is negative. ?2. ?? Negative for intestinal metaplasia. ? 3. ?? Negative for H. pylori on H&E. Document reviewed and electronically signed by: Kathy Sahu [facility] Report ??Date: 11/23/2007 14:15 By the signature above, the attending physician certifies that he/she has personally conducted a gross and/or microscopic examination of the described specimens and rendered or confirmed the above diagnosis. Specimen(s) Received: A. ?Fundic gland polyp B. ? Bx GE junction Clinical History: ? Epigastric pain, dyspepsia Gross Description: ? Received in Hollande's fixative labelled Colgrove and #1 fundic gland polyp are two polypoid biopsies measuring 0.2 x 0.2 x 0.1 cm and 0.4 x 0.3 x 0.2 cm. ??The specimen is submitted intact as (A). Received in Hollande's fixative labelled Colgrove and #2 bx GE junction is a 0.3 x 0.1 x 0.1 cm biopsy. ??The specimen is submitted intact as (B). ??(NITA Bartholomew)/[facility] End of Report [facility] 11/17/2007 11/17/2007 16: 33 EDT Deon Logan MD PATHOLOGY ORDERABLES [facility] [address] [place] [address] documented in this encounter Visit Diagnoses Not on filedocumented in this encounter Care Teams Counseling Center Director Relationship Specialty Start Date End Date Dereck Narvaez MD PCP - General 10/19/08 02/12/17 documented as of this encounter
--- OUTSIDE RECORDS SUMMARY | 2024-01-09 01:55 | XMS_ITS | Encounter Summary ---
Author Organization [facility] Address [address] [place] [address] Care Team Providers Care Marketing Programs Specialist Name Role Phone Dereck Schultz MD Primary Care Provider U navailable Reason for Visit * Reason Onset Date Comments Labs Only 09/24/2013 Encounter Details Date Type Department Care Team (Late st Contact Info) Description 09/24/2013 Telephone [facility] Rheumatology & Immunology - [facility] [address] [place] [address] Major Turner MD Labs Only Social History Tobacco Use Types [...] Encounter - Lynda Treadwell RN - 09/24/2013 4322 EDT Lab req has been sent to pcp office as requested. * Telephone Encounter - Mariana Naik - 09/24/2013 1425 EDT Pt would like lab order to be sent to his PCP office/ [facility] documented in this encounter Plan of Treatment Upcoming Encounters Date Type Department Care Team (Late st Contact Info) Description 04/09/2024 16:30 EDT Office Visit [facility] Hematology & Oncology [address] [phone] Erin Barillas MD [address] [place] [address] 2 [place] [phone] 05/18/2024 10:00 EST Office Visit [facility] Rheumatology & Immunology [address] [address] Tod Perez NP [address] [place] [address] 5 [place] [phone] 06/03/2024 9:00 EST Ancillary Procedure [facility] Cardiology Clinic [address] [place] [phone] 06/03/2024 9:00 EST Office Visit [facility] Cardiology Clinic [address] [place] [phone] Claire Lopez NP [address] [place] [address] [place] [address] documented as of this encounter Visit Diagnoses Not on filedocumented in this encounter Care Teams Marketing Programs Specialist Relationship Specialty Start Date End Date Dereck Schultz MD PCP - General 10/19/08 02/12/17 documented as of this encounter
--- OUTSIDE RECORDS SUMMARY | 2024-01-09 01:55 | XMS_ITS | Encounter Summary ---
Author Organization [facility] Address [address] [place] [address] Care Team Providers Care Fireproof Door Maker Name Role Phone Dereck Schultz MD Primary Care Provider U navailable Reason for Referral * Radiology Services (Routine) - Closed Specialty Diagnoses / Procedures Referred By Marissa carney Referred To Contact Diagnoses Left leg pain LBP (low back pain) Procedures L SPINE 4 OR MORE VIEWS Major Turner MD [address] [place] [address] Referral ID Status Reason Start Date Expiration Date Visits Re quested Visits Authorized [id number] Closed 01/03/2014 1 1 Reason for Visit * Reason Comments Joint Pain whole left side ache s and tingles Encounter Details Date Type Department Care Team (Latest Contact Info) Description 01/03/2014 15:45 EDT Office Visit [facility] Rheumatology & Immunology - [place] [address] [place], [place] [phone] Major Turner MD Inflammatory arthritis (Primary Dx); Left leg pain; LBP (low back pain) Social History Tobacco [...] increase to 2 tid. 100 Cap 3 01/03/2014 03/17/2014 documented in this encounter Progress Notes * Jazmyne Welch - 01/03/2014 1604 EDT Division [...] prednisone and is currently taking a 20mg alternated with 10mg dose. He does report significant back pain which bothers him when he sits for long periods of time which will affect him on an upcoming trip to [facility]. 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 These problems have made it difficult for him to do the physical labor he wishes to do. 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 If this worsens or objective weakness occurs, certainly we can reconsider other neurologic causes. Of note,his symptom of tingling in his left foot [...] patient and 15 minutes of that time was spent in [...] [facility] Hematology & Oncology - [address] [phone] Erin Barillas MD [address] [place] [address] 2 [place] [phone] 05/18/2024 10:00 EST Office Visit [facility] Rheumatology & Immunology [address] [address] Tod Perez NP [address] [place] [address], [facility] 5 [place] [phone] 06/03/2024 9:00 EST Ancillary Procedure [facility] Cardiology Clinic [address] [place] [phone] 06/03/2024 9:00 EST Office Visit [facility] Cardiology Clinic [address] [place] [phone] Claire Lopez NP [address] [place] [address] [place] [address] Scheduled Orders Name Type Priority Associated Diagnoses Orde r Schedule L SPINE 4 OR MORE VIEWS Imaging Routine Left leg pain LBP (low back pain) Ordered: 01/03/2014 documented as of this encounter Visit Diagnoses Diagnosis Inflammatory arthritis- Primary Unspecified inflammatory polyarthropathy Left leg pain Pain in limb LBP (low back pain) Lumbago documented in this encounter Discontinued Medications Medication Sig Discontinue Reason Start Date End Da te acetaminophen (TYLENOL) 650 mg tablet Take 1 Tab by mouth every 4 hours as needed for Pain. Therapy completed 04/10/2012 01/03/2014 documented as of this encounter Care Teams Fireproof Door Maker Relationship Specialty Start Date End Date Dereck Schultz MD PCP - General 10/19/08 02/12/17 documented as of this encounter
--- OUTSIDE RECORDS SUMMARY | 2024-01-09 01:55 | XMS_ITS | Encounter Summary ---
Author Organization [facility] Address [address] [place] [address] Care Team Providers Care High Density Finishing Operator Name Role Phone Dereck Schultz MD Primary Care Provider U vinnyailpiero Encounter Details Date Type Department Care Team (Late st Contact Info) Description 09/15/2013 Phlebotomy Only [address] [address] [phone] Manufacturing Coordinator, Outpatient Pain in joint, ankle and foot Social History Tobacco Use Types Packs/Day Years [...] [facility] Hematology & Oncology [address] [address] Erin Barillas MD 111 [facility], [facility], Level 2 [place] [phone] 05/18/2024 10:00 EST Office Visit [facility] Rheumatology & Immunology - [facility] [address] [place], [place] [phone] Tod Peerz, COSMETICS DEMONSTRATOR 111 [facility], Level [address] [place] [phone] 06/03/2024 9:[address] [facility] Cardiology Clinic [address] [place] [phone] 06/03/2024 9:[address] [facility] Cardiology Clinic [address] [place] [phone] Claire Lopez NP 130 [facility] [address]OB-A [address] [place] [phone] documented as of this encounter Procedures Procedure Name Priority Date/Time Associated Diagnosis Comments [facility]CP ANTIBODIES Routine 09/15/2013 11:57 EDT Pain in joint, ankle and foot SED RATE Routine 09/15/2013 11:57 EDT Pain in joint, ankle and foot C REACTIVE PROTEIN Routine 09/15/2013 11 :57 EDT Pain in joint, ankle and foot TSH Routine 09/15/2013 11:57 EDT Pain in joint, ankle and foot SPEP, INCLUDES QUANTITATION OF MONOCLONAL SPIKE Routine 09/15/2013 11:57 EDT Pain in joint, ankle and foot COMPREHENSIVE METABOLIC PANEL (CMP) Routine 09/15/2013 11:57 EDT Pain in joint, ankle and foot documented in this encounter Results * SED. RATE:TERIREN (09/15/2013 11:57 EDT) [facility] Sed. Rate Westergren 4 0 - 20 mm/hr [facility] Blood specimen (specimen) 09/15/2013 11:57 EDT 09/15/2013 13:08 EDT Major Turner MD HEMATOLOGY & PF4 ORD ERABLES Performing Organization Address [facility] de Phone Number [facility] [address] [place] [address] * C-REACTIVE PROTEIN (09/15/2013 11:57 EDT) [facility] C-Reactive Protein 0.8 <1.0 mg/dl [facility] Blood specimen (specimen) 09/15/2013 11:57 EDT 09/15/2013 13:08 EDT Major Turner MD CHEMISTRY & BLOOD GA S ORDERABLES Performing Organization Address [facility] de Phone Number [facility] [address] [place] [address] * (ABNORMAL) COMPREHENSIVE METABOLIC PANEL (CMP) (09/15/2013 11:57 EDT) [facility] Potassium 4.9 3.5 - 5.0 mEq/L [facility] Sodium 140 136 - 145 mEq/L [facility] Chloride 102 96 - 110 mEq/L [facility] CO2 24 24 - 32 mEq/L [facility] Total Alkaline Phosphatase 77 38 - 126 U/L [facility] Bilirubin, Total 0.6 <1.4 mg/dl [facility] AST 18 15 - 46 U/L [facility] ALT 39 21 - 72 U/L [facility] Albumin 4.7 3.4 - 4.9 g/dl [facility] Total Protein 7.4 6.5 - 8.3 g/dl [facility] Creatinine 0.92 0.66 - 1.25 mg/dl [facility] GFR, Calculated Not calculated >60 ml/min/1. 73m2 [facility] BUN 20 10 - 26 mg/dl [facility] Calcium 9.8 8.5 - 10.5 mg/dl [facility] Calculated Calcium 9.5 8.5 - 10.5 mg/dl [facility] Glucose, Serum 138(H) 70 - 100 mg/dl [facility] Fasting? Unknown [facility] Blood specimen (specimen) 09/15/2013 11:57 EDT 09/15/2013 13:08 EDT Major Turner MD CHEMISTRY & BLOOD GA S ORDERABLES Performing Organization Address [facility] de Phone Number [facility] [address] [place] [address] * ELECTROPHORESIS, SERUM (09/15/2013 11:57 EDT) Total Protein 7.5 6.5 - 8.3 g/dl [facility] Albumin, SPEP 55.6 47.6 - 61.9 % [facility] Alpha-1 % 4.1 1.4 - 4.6 % [facility] Alpha 2, SPEP 13.0 7.3 - 13.9 % [facility] Beta, SPEP 13.0 10.9 - 19.1 % [facility] Gamma, SPEP 14.3 9.5 - 24.8 % [facility] Comments, SPEP No apparent monoclonal protein [facility] Comment: on serum electrophoresis. See Pathology Scanned Report in [employer]ISM. Blood specimen (specimen) 09/15/2013 11:57 EDT 09/15/2013 13:08 EDT Major Turner MD CHEMISTRY & BLOOD GA S ORDERABLES Performing Organization Address City/[facility] Co de Phone Number [facility] [address] [place] [address] * TSH (09/15/2013 11:57 EDT) TSH 0.38 0.35 - 5.00 uIU/ml [facility] Blood specimen (specimen) 09/15/2013 11:57 EDT 09/15/2013 13:08 EDT Major Turner MD CHEMISTRY & BLOOD GA S ORDERABLES Performing Organization Address [facility] de Phone Number [facility] [address] [address] * CCP ANTIBODIES (09/15/2013 11:57 EDT) [facility] Antibodies <2.5 <5.0 U/mL [facility] 09/15/2013 11:5 7 EDT 09/15/2013 13:08 EDT Major Turner MD IMMUNOLOGY AND SEROL OGY ORDERABLES Performing Organization Address [facility] de Phone Number [facility] [address] [address] documented in this encounter Visit Diagnoses Diagnosis Pain in joint, ankle and foot documented in this encounter Care Teams High Density Finishing Operator Relationship Specialty Start Date End Date Dereck Schultz MD PCP - General 10/19/08 02/12/17 documented as of this encounter
--- OUTSIDE RECORDS SUMMARY | 2024-01-09 01:55 | XMS_ITS | Encounter Summary ---
Author Organization [facility] Address [address] [place] [address] Care Team Providers Care Title Specialist Name Role Phone Dereck Narvaez MD Primary Care Provider U vinnyailpiero Encounter Details Date Type Department Care Team (Late st Contact Info) Description 11/06/2005 Results Only [facility] conversion [address] [place] [address] Luke Shen MD [address] [place] [phone] Social History Tobacco Use Types Packs/Day Years [...] [facility] Hematology & Oncology - [address] [phone] Erin Barillas MD 111 [facility], [facility], Level [address] [place] [phone] 05/18/2024 10:00 EST Office Visit [facility] Rheumatology & Immunology - [address] [address] Tod Perez NP 111 [facility], Level [address] [place] [phone] 06/03/2024 9:00 EST Ancillary Procedure [facility] Cardiology Clinic [address] [place] [address] 06/03/2024 9:00 EST Office Visit [facility] Cardiology Clinic [address] [place] [address] Claire Lopez NP 130 [facility] [address] [place] [phone] documented as of this encounter Procedures Procedure Name Priority Date/Time Associated Diagnosis Comments SURGICAL PATHOLOGY Routine 11/06/2005 0:00 EDT documented in this encounter Results * SURGICAL PATHOLOGY (11/06/2005 0:00 EDT) Pathology Report: SURGICAL PATHOLOGY REPORT Reports generated via electronic interface contain original data; however they are lacking the format of the original report. Caution should be taken when reading/interpreti ng unformatted reports. Name: ? DEON VILLNAUEVA ? Accession #: ? [id number] ? : ? 1945 (Age: 60) ??M ? Collect Date: ? 11/06/2005 ? Location: ? [facility] ? Receive Date: ? 11/06/2005 ? Provider: LUKE SHEN MD Copy to: [...] confirmed the above diagnosis. Specimen(s) Received: ? Gallbladder Clinical History: ? Biliary colic Gross Description: ? Received in formalin labelled Colgrove and gallbladder is a product of a cholecystectomy which measures 8.0 x 4.2 x 2.5 cm and is received closed. ??The serosa is dark green to yellow, smooth and glistening. ??There is a moderate amount of attached adipose tissue on the non-hepatic side of the gallbladder. The cystic duct measures 0.4 cm in length by 0.2 cm in diameter and shows a 0.1 cm lumen. ??A possible cystic duct lymph node is identified which measures 0.5 x 0.3 x 0.3 cm. ??The gallbladder is open revealing a moderate amount of dark green bile. ??The mucosa is dark green, smooth and glistening. ??No choleliths are identified. ??The gallbladder wall measures less than 0.1 cm in thickness. Drilling Assistant sections to include cystic duct margin en face, body and fundus are submitted as (A1) and the cystic duct lymph node is submitted as (A2). (Dr. Vann)/mpl End of Report [facility] 11/06/2005 11/06/2005 15: 28 EDT Luke Shen MD PATHOLOGY ORDERABLE S [facility] [address] [place] [address] documented in this encounter Visit Diagnoses Not on filedocumented in this encounter Care Teams Title Specialist Relationship Specialty Start Date End Date Dereck Narvaez MD PCP - General 10/19/08 02/12/17 documented as of this encounter
--- OUTSIDE RECORDS SUMMARY | 2024-01-09 01:55 | XMS_ITS | Encounter Summary ---
Author Organization [facility] Address [facility] [place] [address] Care Team Providers Care Medical Data Entry Clerk Name Role Phone Vianey Bocanegra MANDOLIN REPAIRER Primary Care Provider [phone] Encounter Details Date Type Department Care Team (Late st Contact Info) Description 01/24/2022 3:15 PM EDT Office Visit Dermatology at [address] [phone] Dustin Espinoza MD [address] [facility] [place], [place] [id number] Rosacea; Nevus Social History Tobacco Use Types Packs/Day Years Used Date Smoking Tobacco: Never Smokeless Tobacco: Never Sex and Gender Information Value Date Recorded Sex Assigned at Not on file Gender Identity Not on file Sexual Orientation Not on file documented as of this encounter Progress Notes * uDstin Espinoza MD - 01/24/2022 3:15 PM EDT Problem: 1. Skin checkup 2. Patient on hydroxyurea for polycythemia vera 3. Rosacea on metronidazole 0.75% gel. Praneeth follows up today with his [place]. His judicial clerk at [facility] recommend that he get a yearly skin checkup given the fact that he is on hydroxyurea. He has not noted any particular lesions of concern today. Physical examination reveals a pleasant 76-year-old gentleman who is darkly tanned after spending several weeks in [place] (going back later in the fall) with a benign examination of the head andneck the chest the back the hands on forearms thighs and calves. He has 1 fading and 2 active erythematous ovoid patches on his right back. These are new only have been noticed over the last week or 2. His rosacea is quiescent. He is responded beautifully to the metronidazole 0.75% gel. I would recommend he continue that Assessment plan: Benign skin examination the patient on hydroxyurea for his polycythemia vera 1. Patient reassured about benign examination today 2. Agree with once yearly skin checkups 3. Return to clinic [facility] 1 year 4. Encouraged sun avoidance precautions Rosacea 1. Continue metronidazole 0.75% gel apply once to twice daily to face to prevent and control rosacea. He was given a 45 g tube in 5 refills back in September of this year. Fleeting ovoid dermatitis back 1. Suspect viral etiology 2. Suspect that this will be very short-lived 3. They will contact me if he has further problems with this CC: Vianey Barillas MD documented in this encounter Plan of Treatment Upcoming Encounters Date Type Department Care Team (Late st Contact Info) Description 02/12/2024 8:30 AM EDT Office Visit Dermatology at [place] [address] [place] [address] Dustin Espinoza MD [address] [facility] [address] documented as of this encounter Visit Diagnoses Diagnosis Rosacea Nevus Benign neoplasm of skin, site unspecified documented in this encounter Care Teams Medical Data Entry Clerk Relationship Specialty Start Date End Date Vianey Bocanegra APRN [address] [place] [address] PCP - General Family Medicine 10/04/21 documented as of this encounter
--- OUTSIDE RECORDS SUMMARY | 2024-01-09 01:55 | XMS_ITS | Encounter Summary ---
[place] [address] Care Team Providers Care Diabetes Specialist Name Role Phone Vianey Bocanegra APRN Primary Care Provider [phone] Encounter Details Date Type Department Care Team (Latest Contact Info) Description 01/28/2023 Travel Social History Tobacco Use Types Packs/Day [...] 8:30 AM EDT Office Visit Dermatology at [place] [address] [place] [phone] Dustin Espinoza MD [address] [facility] [place] [address] documented as of this encounter Visit Diagnoses Not on filedocumented in this encounter Care Teams Diabetes Specialist Relationship Specialty Start Date End Date Vianey Bocanegra APRN [address] [place] [address] PCP - General Family Medicine 10/04/21 documented as of this encounter
--- OUTSIDE RECORDS SUMMARY | 2024-01-09 01:55 | XMS_ITS | Encounter Summary ---
Author Organization [facility] Address [address] [place] [address] Care Team Providers Care Nurse Private Duty Name Role Phone Dereck Schultz MD Primary Care Provider U morgan Encounter Details Date Type Department Care Team (Late st Contact Info) Description 09/24/2013 Orders Only [facility] Adult Primary Care - [address] [address] Thony Richey, DO [address] [phone] Myopathy (Primary Dx) Social History Tobacco Use Types [...] Visit [facility] Hematology & Oncology - [address] [id number] Erin Barillas MD [address] [place] [address], [facility] [address] [place] [phone] 05/18/2024 10:00 EST Office Visit [facility] Rheumatology & Immunology - [address] [phone] Tod Perez NP [address] [place] [address], [facility] [address] [place] [phone] 06/03/2024 9:00 EST Ancillary Procedure [facility] [address] [place] [phone] 06/03/2024 9:00 EST Office Visit [facility] [address] [place] [phone] Claire Lopez NP [address] [place] [address]-[address] [place] [address] documented as of this encounter Visit Diagnoses Diagnosis Myopathy- Primary Myopathy, unspecified documented in this encounter Care Teams Nurse Private Duty Relationship Specialty Start Date End Date Dereck Schultz MD PCP - General 10/19/08 02/12/17 documented as of this encounter
--- OUTSIDE RECORDS SUMMARY | 2024-01-09 01:55 | XMS_ITS | Encounter Summary ---
Author Organization [facility] Address [address] [place] [address] Care Team Providers Care Driver Name Role Phone Dereck Schultz MD Primary Care Provider U navailable Reason for Visit * Reason Comments Chest Pain See TCall. Pt sent f or ACS, onset of SSCP at 1500, on Nitro gtt at 125 mcg/min, pain free upon arrival to ED. Denies SOB, n/v upon arrival. Encounter Details Date Type Department Care Team (Late st Contact Info) Description 04/07/2012 21:07 EDT - 04/10/2012 14:33 EDT Hospital Encounter [facility] Cardiac/Telemetry Unit [address], [place] [id number] Adan Valencia MD Clauss, David Ward, MD [address] [phone] Irena Posey MD [address] [phone] Nguyễn Nunez MD Chest pain; Lipids abnormal; HTN (hypertension); Unstable angina ([facility]-H[facility]); Dizziness - light-headed; SSS (sick sinus syndrome) (CMS-HCC) Discharge Disposition: Home or Self Care Social History Tobacco Use Types Packs/Day Years Used Date Smoking Tobacco: Former Comments:Quit >30 years ago Alcohol Use Standard [...] kg (225 lb 5 oz) 04/10/2012 0510 ED T Height 188 cm (6' 2.02) 04/08/2012 0051 EDT Body Mass Index 28.92 04/08/2012 0051 EDT documented in this encounter Functional Status Cognitive Status Response Date of Assessm ent Because of a physical, menta l, or emotional condition, do you have serious difficulty concentrating, remembering, or making decisions? (5 years old or older) Yes 04/08/2012 documented as of this encounter Discharge Summaries * Korey Raphael MD - 04/08/2012 1141 EDT Discharge Summary Deon Huston : 1945 [facility] Admission Dates: 04/07/2012 - 04/10/12 Discharge Location: [...] 6-8 week f/u with Dr. Canchola in [place] for pacemaker check. Condition at Discharge: Fair [...] ER, and pain resolved when given sublingual nitro and morphine. Commenced on IV nitroglycerin and transferred to [facility] for further care. Does report exertion chest pressure over last month - eased with rest, as well as some exertional SOB over thelast 1-2 months. On ED visit, he was pain free without SOB or nausea. No hx of palpitations or leg swelling or PND or orthopnea. No headache. His vital signs were within normal limits on room air. Physical exam was unremarkable. Had normal CBC, CMP, PT/PTT/INR, CK, MB, and troponins x 2. ECG showed irregular rhythmwith sinus block, normal rate. No ST changes. He was admitted to the telemetry floor, started on heparin gtt, loaded with Plavix, continued on nitro drip, and an echo was ordered. Echo showed EF of 60- 65% with no wall motion abnormalities. Mild L atrial dilation. The patient was scheduled for the cathode builder on 04/08/12 which showed mild CAD. Of [...] None. Pacemaker check as above noted in [facility] with Dr. Cnachola. Home Medication Instructions Medication Information simvastatin (ZOCOR) [...] Results at Discharge: CBC: Recent Labs Basename 04/10/1265104/09/1261404/08/1250 WBC 6.57 6.33 6.62 HGB 14.2 13.7* 12.6* PLT 152 152 168 BMP: Recent Labs Basename 04/10/1265104/09/1261404/08/1250 NA 138 139 138 K 4.2 4.1 4.4 CL 104 106 108 CO2 23* 23* 24 BUN 17 12 19 CREATININE 0.84 0.93 0.96 Blood Sugar: No results found for this basename: GLUCOSEFINGE:12 in the last 72 hours Coagulation: PT/INR/PTT: --/--/ (04/10 652) LFTs: No results found for this basename: ALT:3,AST:3,GGT:3,ALKPHOS:3,TBIL:3,CONJBILI:3,UNCONJBILI:3,TP:3, PREALBUMIN:3,LABALBU:3 in the last 72 hours cc: Dereck Gilliamsierra tucsondimitri Discharge Summary Completed by Korey Raphael MD Attending at time of discharge: MD Dina. documented in this encounter Discharge Instructions * Discharge Instructions* Korey Raphael MD - 04/10/2012 11:19 EDT DISCHARGE INSTRUCTIONS FOR PATIENTS WITH PACEMAKERS 1. Wound Care: Dermabond adhesive was used: Do not attempt to remove the adhesive. It will disappear in 2-3 weeks.You will NOT have a dressing over the [...] when traveling by air please inform the ticketing agent & airport security of your pacemaker. You must be hand searched verses walking through the medal detector. ?? Know your medicines, keep a list with you and take them as prescribed. ?? Please tell other physicians and dentists that you have a pacemaker. The pacemaker may need to be reprogrammed temporarily for certain procedures. ?? Instructions for the use of cellular phones: Your cellular phone should be held a minimum of 6 inches away from the ICD. It is recommended to hold the cellular phone on the side opposite of your device. ?? Carry your pacemaker identification card with you at all times. A permanent card will be sent toyour home in approximately 6-8 weeks. 4. Appointments: ?? You will need to have a wound check approximately 2 weeks post-op. An appointment will be arranged for you prior to your discharge from the hospital. If you do not receive an appointment please call your primary care physician or [place] [phone] Mancia in Dr. Schultz office on April 23 at 9:15 for a check of your incision. Please call Dr. Canchola's office in [facility] and make an appointment to follow up with him in 6-8 weeks. 5. Follow Up: ?? Your first pacemaker check will be scheduled in three months after implant at your closest chosen clinic location. You will be reminded of this date by mail ?? Subsequent pacemaker clinic checks will be scheduled either once or twice a year depending on your device. Appointments will be scheduled at your first pacemaker clinic visit. ?? Out Outpatient Cardiology clinic is located at [facility] in [place]. ?? Clinics are also held in [facility], [facility], and [place], [place] and [facility]. If you live in those areas, we will make arrangements for follow-up appointments in oneof those clinics. ?? Remote Monitors: Depending on where you live and the kind of pacemaker you have. You may be enrolled for a Remote Monitor. The monitor will be mailed to you and will allow you to have your pacemaker checked over the phone for some scheduled check instead of coming into the clinic. This will alsoallow you to send information about your pacemaker over the phone in the event you do not feel well. If you receive a remote monitor please bring it to your next clinic visit so you can learn how to use it. Please Note: If we have not contacted you or you have missed your scheduled appointment, you must contact us. If you have any nursing questions please don't hesitate to call the Cardiac Arrhythmia Service at [facility] at [phone] or extension [phone]. For any scheduling of appointments please call [phone] or extension [phone]. Mr. Huston's only new medicine prescribed is [...] Take 5 mg by mouth daily. 10/24/2022 lisinopril (PRINIVIL, ZESTRIL) 10 mg tablet Take 10 mg by mouth daily. 09/15/2013 omeprazole (PRILOSEC) 20 mg capsule Take 40 mg by mouth daily. 05/11/2019 simvastatin (ZOCOR) 40 mg tablet Take 40 mg by mouth every evening. 11/09/2020 documented as of this encounter Ordered Prescriptions Prescription Sig Dispensed Refills Start Date End Da te acetaminophen (TYLENOL) 650 mg tablet Take 1 Tab by mouth every 4 hours as needed for Pain. 60 Tab 3 04/10/2012 01/03/2014 documented in this encounter Discharge Disposition Disposition Code Departure Means Destination Home or Self Care documented in this encounter Progress Notes * Yessica Balbuena MD - 04/09/2012 1700 EDT Cardiology Post Procedure Note s/p pacemaker placement Subjective: Pt is resting comfortably. Denies chest pain, palpitations, lightheadedness, dizziness, dyspnea, numbness or weakness. Objective: Blood pressure 141/75, pulse 51, temperature 36.2 ??C (97.2 ??F), temperature source Tympanic, resp. rate 18, height 188 cm (74.02), weight 103.4 [...] per morning note Yessica Balbuena MD PGY2 * MonroySavannah baez - 04/09/2012 1448 EDT Brief Case [...] has [employer] and [employer] and states med assist (but per pt, his knows better than himself) . He uses [facility] in [facility] for meds. Case Management Actions (completed and planned): No needs identified. WIll monitor. Pt states his son and his daughter's boyfriend can assist with building his building and getting heat. JENNIFER Ryan #[id number] * Adan Valencia - 04/09/2012 0757 EDT Cardiology Progress note Admit Date: 04/07/2012 Hospital day: LOS: 2 days Date of Service: 04/09/2012 Code Status: Full Code Chief Complaint: Chest pain, sinus node dysfunction Events/ Procedures in the last 24 hrs: -cardiac catheterization showing mild CAD without stenosis, sinus pauses -seen by EP, plan for PPM today. Subjective: Mr. Huston denies chest pain, dyspnea, fatigue, irregular heart beat, palpitations. +dizziness with sitting yesterday. Current Facility-Administered Medications Medication [...] spent. Adan Valencia MD Attending in Cardiology #[id number] * Saman Lo - 04/08/2012 1109 EDT Cardiology Post Procedure Note s/p left heart cardiac catheterization S: Pt resting comfortably. Denies chest pain, palpitations, lightheadedness, dizziness, dyspnea, numbness or weakness. Denies pain, bleeding or discharge from the cath site. Ambulating without complication. O:Blood pressure 141/69, pulse 51, temperature 37 ??C (98.6 ??F), temperature source Tympanic, resp. rate 16, height 188 cm (74.02), weight 103.6 [...] PM placement tomorrow SAMAN LO MD PGY-3 * Adan Valencia - 04/08/2012 1405 EDT No significant flow [...] PPM. documented in this encounter H&P Notes * Adan Valencia - 04/07/2012 4035 EDT Cardiology Admission Note Date - 04/07/2012 [...] ER. Commenced on IV nitroglycerin. Transferred to [facility] for further care. Does report exertion chest pressure over last month - eased with rest. Hadalso noted some exertional SOB over the last [...] - uncertain Vaughn Gandhi MD Pager # [phone] 66 yo male with HTN, HLD ex smoker presents with substernal chest pressure at rest with multiple prior episodes as well sinus bradycardia with type II SA exit block, Sx relieved by nitro and triggered by activity. Keep npo for LHC in am given UA presentation and possible ischemic substrate to block. D/w Dr. Nunez and Dr. Hackett interventional staff I personally interviewed and examined the patient. I agree completely with Martha Davis and Eugene's history, physical examination and assessment. 40 minutes spent. Adan Valencia MD Attending in Cardiology #[id number] documented in this encounter Procedure Notes * SWITCHMAN SUPERVISOR, SCAN 2 - 04/15/2012 2220 EDTAssociated Order(s): CARDIAC CATHERIZATION REPORT - SCANNED * SWITCHMAN SUPERVISOR, SCAN 2 - 04/15/2012 2159 EDTAssociated Order(s): ECG REPORT - SCANNED * SWITCHMAN SUPERVISOR, SCAN 2 - 04/15/2012 2159 EDTAssociated Order(s): CARDIAC CATHERIZATION REPORT - SCANNED * SWITCHMAN SUPERVISOR, SCAN 2 - 04/15/2012 2159 EDTAssociated Order(s): IMPLANT RECORD - SCANNED * SWITCHMAN SUPERVISOR, SCAN 2 - 04/10/2012 1033 EDTAssociated Order(s): ECG REPORT - SCANNED * Nelson Dhaliwal Sa, MD - 04/09/2012 1442 EDT Electrophysiology Laboratory Preliminary Report -- Invasive Electrophysiology Procedure Date of Service/Procedure: 04/09/2012 Attending Physician: Manav Rodriguez MD Fellow: Nelson portillo Sa, MD Pre-Procedure Diagnosis/Indication: Deon Huston is a 66 y.o. year old male Presents to [facility] in [place] for a pacemaker implantation which is Indicated for symptomatic bradycardia or chronotropic incompetence w/ 2AVB, 3AVB, or SND. Symptoms includepre-syncope and indication for dual chamber pacing is [...] Post Procedural Disposition: Return for recovery to [place] [address] Reference: Hospitalization Criteria for Pacemaker and ICD Placement and EP/Ablation; Heart Rhythm Society; Revised November, NELSON PORTILLO SA, MD 04/09/2012 14:44 * Edwin Hernandez MD - 04/08/2012 1403 EDT Preliminary Cardiac Catheterization Results and Plan ATTENDING: Mary Fellow/DIRECTOR OF EXHIBITS: Scot Indication: A ( 66 ) year [...] Cardiology documented in this encounter Consult Notes * Jose Alejandro Corea MD - 04/08/2012 1612 EDT Cardiology Consult Presenting Illness: 1. Sinus Node Dysfunction History of Presenting Illness: Pt is a 66 yo WM with MHx of HTN, HLD, NATALIE, GERD who initially presented with an Atypical PleuriticCP. This has been occurring for some time, described as sharp, worsened with inspiration, occuring with greater frequency and severity. He also reports some Pre-Syncope type symptoms without over Syncope. The pt is not DM, and has never experienced an episode fo Syncope or Seizure. 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 This was further typified by Vagal Maneuvers at bedside as well as RCA Contrast Injections. PCP: Dereck Schultz Front Desk Lead: None 2D-TTE: Summary: 1. Left ventricle: The cavity size was normal. Wall thickness was normal. Systolic function was normal. The estimated ejection fraction was 60- 65%. Wall motion was normal; there were no [...] ? Sinus Wenckebach Krystina: Results for DEON ANDERSON ( ) as of 04/08/2012 16:32 Ref. [...] myself; and negative except for pertinent positives asper HPI. Medical History: Past Medical History Diagnosis [...] - - 14 98 % - - 04/07/125 106/60 mmHg - - - 14 99 % - - 04/07/120 104/61 mmHg - - - 15 100 % - - 04/07/120 108/70 mmHg - - - 14 99 % - - 04/07/122118 105/54 mmHg 36.7 ??C (98.1 ??F) Oral 51 14 99 % - - Weight: Weight : 103.6 kg (228 lb 6.3 oz) Body mass index is 29.31 kg/(m^2). General: Awake, Alert, Oriented x3/3, GCS 15. No Cardio-Pulmonary Distress. HEENT: Mucous Membranes [place] & Moist. Sclerae Anicteric. CVS: S1/S2, No Ad. Snds, Murmurs, Rubs, Gallops, Heaves, Thrills, Carotid Bruits. JVD/P wnl. MarkedSinus Bradycardia upon Carotid Massage. RS: CTAB btl, No Wheezes or Crackles. No Effusions. ENCAPSULATOR: No Focal Neurological Deficit noted. ABD: Soft, [...] 12.1 04/08/201250 INR 1.1 04/08/201250 PTT 99* 04/08/2012755 LFTs: No results found for this basename: ALT, AST, ALKPHOS, TBIL, CONJBILI, UNCONJBILI, TP, LABALBU DM: Lab Results Component Value Date/Time HGBA1C 6.0 04/08/201255 FLP: Lab Results Component Value Date/Time CHOL 111 04/08/201250 TRIG 117 04/08/201250 HDL 22 04/08/2012 0051 LDLBASE 66 04/08/2012 [...] M.D. Cem Mauricio M.D. Cardiovascular Disease Fellow [facility] Office: [phone] Pager: [phone] Email: [email or web address] documented in this encounter ED Notes * Lexi Self RN - 04/08/2012 0147 EDT Pt continues to be pain free, in hospital bed for comfort. * Rand Thomas RN - 04/08/2012 0120 EDT Blood drawn via saline lock per protocol, rainbow tube(s) sent to lab per order. * Kalia Cade - 04/08/2012 0011 EDT Blood drawn via saline lock per protocol, green tube(s) sent to lab per order. * Saman Ortega MD - 04/07/2012 0853 EDT The patient arrives stable in transfer for admission to the cardiology service. He is seen in the ED by cardiology and will be admitted to cardiology service for further evaluation and therapy. * Lexi Self RN - 04/07/20122222 EDT Cardiology at bedside for eval. * Quinton Main RN - 04/07/20122219 EDT 12 Lead EKG Performed by uQinton Main RN and shown to Saman Garcia MD. * Lexi Self RN - 04/07/20122136 EDT 12 Lead EKG Performed by Lexi Self RN and shown to Dr. Ortega. * Lexi Self RN - 04/07/20122125 EDT Upon arrival pt kept on Nitro at 125 mcg/min, placed on continuous cardiac, NIBP, and SpO2 monitoring, kept on 2L O2 via NC. Dr. Otrega at bedside for eval. * Alfredito Condon - 04/07/20122110 EDT Tcall: Deon Huston 41 Pt xfr from [facility] Dr. Nunez accepting. Cc: 66ym sudden onset SSCP at 1500. 6/10 Pale, sob on arrival. Ekg: SSS +ectopy DDimer neg, trop neg. 108/52 50'S-> 56 20 97% 4 liters 20G l ac Asa, ntg Note taken by Jean Carlos Saldivar RN ([facility]) documented in this encounter Miscellaneous Notes * Scanned Note-Null - SWITCHMAN SUPERVISOR, SCAN 2 - 04/15/2012 2220 EDT * Scanned Note-Null - SWITCHMAN SUPERVISOR, SCAN 2 - 04/15/20122158 EDT * Scanned Note-Null - SWITCHMAN SUPERVISOR, SCAN 2 - 04/15/20122158 EDT * Plan of Care - Marie Houston RN - 04/10/2012 0954 EDT Problem: PAIN Goal: Patient???s Pain And Discomfort Are Adequately Managed Intervention: Assess pain level Pain is to be assessed: admission, every shift, prior to medication administration, within two hours after pain medication administration, before transfer or discharge and every two hours while on MEDICAL RECORDS FIELD TECHNICIAN or epidural. Data: Pt reports aching pain [...] Pt expressed good understanding of discharge instructions. * Plan of Care - Karin Coronado RN - 04/10/2012 0627 EDT Problem: CIRCULATORY STATUS Goal: Patient Has Stable Vital Signs And Fluid Balance D Assumed care of post-ppm pt. VSS. SR on tele. L SC incision intact with minimal swelling. Pt declines pain medication. A Assessment per flow sheet. Reviewed plan of care. R Continue to monitor. * Plan of Care - Joanie Cole RN - [...] will CTM. Joanie Cole RN 04/09/2012 18:42 * Scanned Note-Null - SWITCHMAN SUPERVISOR, SCAN 2 - 04/09/2012 0707 EDT * Plan of Care - Anisha Hawley RN - 04/09/2012 0352 EDT Problem: CIRCULATORY STATUS Goal: Patient Has Stable Vital Signs And Fluid Balance Intervention: Assess rate, rhythm and regularity of pulses Including apical assessment for cardiology patients. D:Received pt at 1900 for care. Pt alert and oriented. A:No complaints of pain or discomfort. Call light in reach. Pt voiding in urinal. R:Will continue to monitor and report changes. * Plan of Care - Sophie Kothari RN - 04/08/2012 8367 EDT Problem: CIRCULATORY STATUS Goal: Patient Has Stable Vital Signs And Fluid Balance Outcome: Met This Shift D: Assumed care of pt this AM. Heparin gtt, nitro gtt & NS gtt infusing. NPO for cathode builder. VSS.Denies chest pain. Tele- SB/SR 30s-60s. A: Echo done. Pt returned from cathode builder with no intervention done. Right femoral cath site CDI. + pedal pulses. See post-cath flowsheet. R: Attempted to do orthos at 1710. Pt feeling dizzy when sitting at bedside. SBP increased. Pt backto bed for now. Encouraged food & fluids. Cath site remains intact. NPO after midnight for PPM r/t sick sinus syndrome. Sophie Kothari RN 04/08/2012 18:55 * Plan of Care - Eliceo Martin RN - 04/08/2012 0348 EDT D: Patient arrived to [place] [address]. Vital signs noted. Tele applied. Patient SB with HR in 50s. Patient denies chest pain, SOB, and discomfort. Patient denies complaints at this time. Patient oriented to room, equipment, and careplan. A: Assessment as documented in flowsheet. Admission database complete. R: RN will continue to monitor and document per protocol. * Scanned Note-Null - SWITCHMAN SUPERVISOR, SCAN 2 - 04/07/20122208 EDT * Scanned Note-Null - SWITCHMAN SUPERVISOR, SCAN 2 - 04/07/20122208 EDT * Scanned Note-Null - SWITCHMAN SUPERVISOR, SCAN 2 - 04/07/20122208 EDT documented in this encounter Plan of Treatment Upcoming Encounters Date Type Department Care Team (Late st Contact Info) Description 04/09/2024 16:30 EDT Office Visit [facility] Hematology & Oncology - [address] [phone] Erin Barillas MD [address] [place] [address], [facility], [address] [place] [address] 05/18/2024 10:00 EST Office Visit [facility] Rheumatology & Immunology - [facility] [address], [place] [address] Tod Perez, FESTUS [address] [facility], [facility], [address] [place] [phone] 06/03/2024 9:00 EST Ancillary Procedure [facility] [address] [place], [place] [phone] 06/03/2024 9:00 EST Office Visit [facility] Cardiology Clinic [address] [facility], [place] [phone] Claire Lopez NP [address] [facility] [address] [place] [address] documented as of this encounter Procedures Procedure Name Priority Date/Time Associated Diagnosis Comments INVASIVE CARDIOLOGY REPORT-SCANNED 04/15/2012 22:20 EDT IMPLANT RECORD - SCANNED 04/15/2012 21:59 EDT ECG REPORT - SCANNED 04/15/2012 21:59 EDT INVASIVE CARDIOLOGY REPORT-SCANNED 04/15/2012 21:59 EDT ECG REPORT - SCANNED 04/10/2012 10:33 EDT DIFFERENTIAL Routine 04/10/2012 6:52 EDT PTT Routine 04/10/2012 6:52 EDT COMPLETE BLOOD COUNT Routine 04/10/2012 6:52 EDT COMPLETE BLOOD COUNT AND DIFFERENTIAL Routine 04/10/2012 6:52 EDT BUN Routine 04/10/2012 6:52 EDT CREATININE Routine 04/10/2012 6:52 EDT ELECTROLYTES Routine 04/10/2012 6:52 EDT PORTABLE CHEST 1 VIEW Routine 04/09/2012 14:59 EDT PERMANENT PACEMAKER PROCEDURE Routine 04/09/2012 13:19 EDT DIFFERENTIAL Routine 04/09/2012 6:15 EDT PTT Routine 04/09/2012 6:15 EDT COMPLETE BLOOD COUNT Routine 04/09/2012 6:15 EDT COMPLETE BLOOD COUNT AND DIFFERENTIAL Routine 04/09/2012 6:15 EDT BUN Routine 04/09/2012 6:15 EDT CREATININE Routine 04/09/2012 6:15 EDT ELECTROLYTES Routine 04/09/2012 6:15 EDT LEFT HEART CATH Routine 04/08/2012 13:33 EDT ECHOCARDIOGRAM Routine 04/08/2012 9:33 EDT TROPONIN I Routine 04/08/2012 7:56 EDT PTT STAT 04/08/2012 7:56 EDT CK MB WITH TOTAL CK Routine 04/08/2012 7 :56 EDT HEMOGLOBIN A1C Routine 04/08/2012 0:56 EDT SCREENING GLUCOSE Routine 04/08/2012 0:5 1 EDT TROPONIN I Routine 04/08/2012 0:51 EDT DIFFERENTIAL Routine 04/08/2012 0:51 EDT PTT Routine 04/08/2012 0:51 EDT PROTIME Routine 04/08/2012 0:51 EDT COMPLETE BLOOD COUNT Routine 04/08/2012 0:51 EDT COMPLETE BLOOD COUNT AND DIFFERENTIAL Routine 04/08/2012 0:51 EDT BUN Routine 04/08/2012 0:51 EDT CREATININE Routine 04/08/2012 0:51 EDT CK MB WITH TOTAL CK Routine 04/08/2012 0 :51 EDT LIPID PROFILE (INCLUDES CHOLESTEROL, TRIGLYCERIDES, HDL, LDL) Routine 04/08/2012 0:51 EDT ELECTROLYTES Routine 04/08/2012 0:51 EDT TROPONIN I Routine 04/08/2012 0:08 EDT EKG 12-LEAD STAT 04/07/2012 22:08 EDT EKG 12-LEAD STAT 04/07/2012 21:33 EDT documented in this encounter Results * CARDIAC CATHERIZATION REPORT - SCANNED (04/15/2012 22:20 EDT) 04/15/2012 22:2 0 EDT Narrative 04/15/2012 22:23 EDT Procedure Note SWITCHMAN SUPERVISOR, SCAN 2 - 04/15/2012 22:20 EDT Scan 2 Oncologist PROCEDURE/MINOR JHOAN GICAL ORDERABLES * IMPLANT RECORD - SCANNED (04/15/2012 21:59 EDT) 04/15/2012 21:5 9 EDT Narrative 04/15/2012 22:23 EDT Procedure Note SWITCHMAN SUPERVISOR, SCAN 2 - 04/15/2012 21:59 EDT Scan 2 Oncologist PROCEDURE/MINOR JHOAN GICAL ORDERABLES * CARDIAC CATHERIZATION REPORT - SCANNED (04/15/2012 21:59 EDT) 04/15/2012 21:5 9 EDT Narrative 04/15/2012 22:23 EDT Procedure Note SWITCHMAN SUPERVISOR, SCAN 2 - 04/15/2012 21:59 EDT Scan 2 Oncologist PROCEDURE/MINOR JHOAN GICAL ORDERABLES * ECG REPORT - SCANNED (04/15/2012 21:59 EDT) 04/15/2012 21:5 9 EDT Narrative 04/15/2012 22:23 EDT Procedure Note SWITCHMAN SUPERVISOR, SCAN 2 - 04/15/2012 21:59 EDT Scan 2 Oncologist PROCEDURE/MINOR JHOAN GICAL ORDERABLES * ECG REPORT - SCANNED (04/10/2012 10:33 EDT) 04/10/2012 10:3 3 EDT Narrative 04/11/2012 4:44 EDT Procedure Note SWITCHMAN SUPERVISOR, SCAN 2 - 04/10/2012 10:33 EDT Scan 2 Oncologist PROCEDURE/MINOR JHOAN GICAL ORDERABLES * (ABNORMAL) DIFFERENTIAL (04/10/2012 6:52 EDT) % Neutrophils 72.6 45.5 - 79.7 % [facility] % Lymphocytes 14.0(L) 15.0 - 46.8 % [facility] % Monocytes 10.7 1.8 - 12.0 % [facility] % Eosinophils 2.4 0.6 - 6.9 % [facility] % Basophils 0.3 0.2 - 1.4 % [facility] ABS Neutrophils 4.77 2.20 - 8.85 K/cmm [facility] Lymphs 0.92(L) 1.09 - 3.30 K/cmm [facility] Monocytes 0.70 0.1 - 0.8 K/cmm [facility] Eosinophils 0.16 0.03 - 0.61 K/cmm [facility] Basophils 0.02 0.01 - 0.11 K/cmm [facility] Type of Diff: Automated [facility] 04/10/2012 6:52 EDT 04/10/2012 7:04 EDT Vaughn Gandhi MD HEMATOLOGY & PF4 OR DERABLES Performing Organization Address [facility] de Phone Number [facility] [address] [place] [address] * HEMAGRAM (04/10/2012 6:52 EDT) WBC 6.57 4.0 - 10.4 K/cmm [facility] RBC 4.73 4.36 - 5.78 M/cmm [facility] Hemoglobin 14.2 13.8 - 17.3 gm/dl [facility] HCT 41.5 39.5 - 50.2 % [facility] MCV 88 81 - 95 fl [facility] MCH 30.0 27.6 - 33.0 pg [facility] MCHC 34.2 32.8 - 36.4 gm/dl [facility] PLT 152 141 - 320 K/cmm [facility] RDW-CV 13.9 11.8 - 14.1 % [facility] 04/10/2012 6:52 EDT 04/10/2012 7:04 EDT Vaughn Gandhi MD HEMATOLOGY & PF4 OR DERABLES Performing Organization Address [facility] de Phone Number [facility] [address] [place] [address] * PTT (04/10/2012 6:52 EDT) PTT 29 26 - 37 secs [facility] Comment:Therapeutic Heparin range: 65-100 seconds Blood specimen (specimen) 04/10/2012 6:52 EDT 04/10/2012 7:04 EDT Vaughn Gandhi MD HEMATOLOGY & PF4 OR DERABLES Performing Organization Address [facility] de Phone Number [facility] [address] [place] [address] * CREATININE (04/10/2012 6:52 EDT) Creatinine 0.84 0.66 - 1.25 mg/dl [facility] GFR, Calculated >60 >60 ml/min/1.7 3m2 [facility] Blood specimen (specimen) 04/10/2012 6:52 EDT 04/10/2012 7:04 EDT Vaughn Gandhi MD CHEMISTRY & BLOOD G ORDERABLES Performing Organization Address [facility] Phone Number [facility] [address] [place] [address] * BUN (04/10/2012 6:52 EDT) BUN 17 10 - 26 mg/dl [facility] Blood specimen (specimen) 04/10/2012 6:52 EDT 04/10/2012 7:04 EDT Vaughn Gandhi MD CHEMISTRY & BLOOD G ORDERABLES Performing Organization Address [facility] Phone Number [facility] [address] [place] [address] * (ABNORMAL) ELECTROLYTES (04/10/2012 6:52 EDT) Sodium 138 136 - 145 mEq/L [facility] Potassium 4.2 3.5 - 5.0 mEq/L [facility] Chloride 104 96 - 110 mEq/L [facility] CO2 23(L) 24 - 32 mEq/L [facility] Blood specimen (specimen) 04/10/2012 6:52 EDT 04/10/2012 7:04 EDT Vaughn Gandhi MD CHEMISTRY & BLOOD G ORDERABLES [facility] [address] [place] [address] * PORTABLE CHEST 1 VIEW (04/09/2012 14:59 EDT) Anatomical Region Laterality Modality Other 04/09/2012 14:5 9 EDT 04/09/2012 15:05 EDT Narrative 04/09/2012 15:05 EDT PORTABLE CHEST 1 VIEW ??Apr 09, 2012 02:59:00 PM Signs and Symptoms/Comments: ?? s/p ppm, check leads Impression: 1. No pneumothorax identified. Description: A portable semiupright AP chest without comparisons. There is a battery pack projected over the left axillary soft tissues with a single lead from this to the right atrium. The left diaphragm is slightly higher than the right. Procedure Note 04/09/2012 PORTABLE CHEST 1 VIEW Apr 09, 2012 02:59:00 PM Signs and Symptoms/Comments: s/p ppm, check leads Impression: 1. No pneumothorax identified. Description: A portable semiupright AP chest without comparisons. There is a battery pack projected over the left axillary soft tissues with a single lead from this to the right atrium. The left diaphragm is slightly higher than the right. Manav Rodriguez MD IMG DIAGNOSTIC I MAGING ORDERABLES * PERMANENT PACEMAKER PROCEDURE (04/09/2012 13:19 EDT) Anatomical Region Laterality Modality Other 04/09/2012 13:1 9 EDT Narrative 04/09/2012 15:04 EDT *Cardiology* [address] [place] [address] Device Implantation Patient: Deon Huston ?Study Date: ? 04/09/2012 ?Accession #: ?[id number] : ? 1945 Referring: Dereck Schultz Attending: Manav Rodriguez MD Fellow: ?Nelson portillo Sa, MD Assisting: Copies: SUMMARY OF PROCEDURE: - There were no complications. - Successful Single chamber pacemaker implant. PROCEDURE INDICATION: INDICATION FOR PACING: Symptomatic bradycardia or chronotropic incompetence with 2AVB, 3AVB or SND. Symptoms include pre-syncope. HISTORY AND INDICATIONS: ??Pt is [...] fo Syncope or Seizure. 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 This was further typified by Vagal Maneuvers at bedside as well as RCA Contrast Injections. PROCEDURE: - Implant of a single chamber pacemaker ANESTHESIA: Conscious sedation and local anesthesia. PROCEDURE: The risks, benefits, and alternatives to the procedure and sedation were explained and informed consent was obtained. The patient name, date of , surgical site, and procedure were verified prior to the procedure. The patient was brought to the OR in the fasting state. The chest was prepped and draped in the usual sterile manner. ??Local anesthestic was administered to the left deltopectoral groove. ??Left axillary vein access. With the patient in Trendelenburg position and under fluoroscopic guidance the vessel was entered on 1 occasion(s) allowing for placement of 1 soft-tipped J-wire(s) to the level of the inferior vena cava. The attending physician was present for the entire procedure. An incision was made medial and perpendicular to the left deltopectoral groove. Using blunt dissection and electrocautery to achieve hemostasis, a device pocket was constructed. Lead implantation. The wire was tunneled into the incision area. Using a 7F safety sheath, a lead was advanced to the right atrium under fluoroscopic guidance and actively fixed to the right atrial appendage.The lead(s) were tested before and after suturing the lead sleeve(s) to the pre-pectoralis fascia. Device detail in table below. Wound closure. The pocket was copiously irrigated with bacitracin solution. The lead was attached to the device and the system was placed in the pocket.The wound was closed in three layers.The deepest layer was interrupted vertical mattress using 2-0 Monocryl.The mid layer was interrupted horizontal mattress using 3-0 Monocryl.The superficial layer was continuous horizontal mattress using 4-0 Monocryl.The skin was coated with topical skin adhesive. IMPLANTED HARDWARE: Implanted device: Medtronic - Sensia SR - [id number] LEAD PARAMETERS + + + Lead # ? 1 ? + + + Chamber ? RA ? + + + Date implanted ?? 09-Apr-2012 + + + Model information Medtronic ?? + + + Serial number ? [id number] ?? + + + Location ? RA [...] +-------+ STUDY COMPLETION Administered medications: ?? Cefazolin (Ancef, Kefzol) , prior to the procedure for infection prophylaxis. - Patient in-room time: 12:48 PM. - Patient out-of-room time: 02:30 PM. - Intake: 200ml - Estimated blood loss: 30ml. Clinical Trial: ??The patient is not enrolled in a clinical trial. PLAN: ??See post procedure orders. Bed rest for 2hours. At the completion of the procedure, findings, results, any complications, and treatment plan were communicated to the patient and reinforced after recovery from anesthesia. With the patient's consent, the attending physician communicated findings, results, any complications, and treatment plan to family members and patient support persons who were present at the conclusion of the procedure. ?? Electronically signed by Manav Rodriguez MD 04/09/2012 15:03 Procedure Note 04/09/2012 *Cardiology* [address] [place] [id number] Device Implantation Patient: Deon Huston Study Date: 04/09/2012 : 1945 Referring: Dereck Schultz Attending: Manav Rodriguez MD Fellow: Nelson portillo Sa, MD Assisting: Copies: SUMMARY OF PROCEDURE: - There were no complications. - Successful Single chamber pacemaker implant. PROCEDURE INDICATION: INDICATION FOR PACING: Symptomatic bradycardia or chronotropic incompetence with 2AVB, 3AVB or SND. Symptoms include pre-syncope. HISTORY AND INDICATIONS: Pt is a 66 yo WM with [...] fo Syncope or Seizure. 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 This was further typified by Vagal Maneuvers at bedside as well as RCA Contrast Injections. PROCEDURE: - Implant of a single chamber pacemaker ANESTHESIA: Conscious sedation and local anesthesia. PROCEDURE: The risks, benefits, and alternatives to the procedure and sedation were explained and informed consent was obtained. The patient name, date of , surgical site, and procedure were verified prior to the procedure. The patient was brought to the OR in the fasting state. The chest was prepped and draped in the usual sterile manner. Local anesthestic was administered to the left deltopectoral groove. Left axillary vein access. With the patient in Trendelenburg position and under fluoroscopic guidance the vessel was entered on 1 occasion(s) allowing for placement of 1 soft-tipped J-wire(s) to the level of the inferior vena cava. The attending physician was present for the entire procedure. An incision was made medial and perpendicular to the left deltopectoral groove. Using blunt dissection and electrocautery to achieve hemostasis, a device pocket was constructed. Lead implantation. The wire was tunneled into the incision area. Using a 7F safety sheath, a lead was advanced to the right atrium under fluoroscopic guidance and actively fixed to the right atrial appendage.The lead(s) were tested before and after suturing the lead sleeve(s) to the pre-pectoralis fascia. Device detail in table below. Wound closure. The pocket was copiously irrigated with bacitracin solution. The lead was attached to the device and the system was placed in the pocket.The wound was closed in three layers.The deepest layer was interrupted vertical mattress using 2-0 Monocryl.The mid layer was interrupted horizontal mattress using 3-0 Monocryl.The superficial layer was continuous horizontal mattress using 4-0 Monocryl.The skin was coated with topical skin adhesive. IMPLANTED HARDWARE: Implanted device: Medtronic - Sensia SR - [id number] LEAD PARAMETERS + + + Lead # 1 + + + Chamber RA + + + Date implanted 09-Apr-2012 + + + Model information [employer] + + + Serial number [id number] + + + Location RA appendage + [...] + +-------+ STUDY COMPLETION Administered medications: Cefazolin (Ancef, Kefzol) , prior to the procedure for infection prophylaxis. - Patient in-room time: 12:48 PM. - Patient out-of-room time: 02:30 PM. - Intake: 200ml - Estimated blood loss: 30ml. Clinical Trial: The patient is not enrolled in a clinical trial. PLAN: See post procedure orders. Bed rest for 2hours. At the completion of the procedure, findings, results, any complications, and treatment plan were communicated to the patient and reinforced after recovery from anesthesia. With the patient's consent, the attending physician communicated findings, results, any complications, and treatment plan to family members and patient support persons who were present at the conclusion of the procedure. Electronically signed by Manav Rodriguez MD 04/09/2012 15:03 Saman Lo MD CARDIAC EP ORDERABLE S * (ABNORMAL) DIFFERENTIAL (04/09/2012 6:15 EDT) % Neutrophils 69.7 45.5 - 79.7 % [facility] % Lymphocytes 15.6 15.0 - 46.8 % [facility] % Monocytes 13.6(H) 1.8 - 12.0 % [facility] % Eosinophils 0.8 0.6 - 6.9 % [facility] % Basophils 0.3 0.2 - 1.4 % [facility] ABS Neutrophils 4.41 2.20 - 8.85 K/cmm [facility] ABS Lymphs 0.99(L) 1.09 - 3.30 K/cmm [facility] ABS Monocytes 0.86(H) 0.1 - 0.8 K/cmm [facility] ABS Eosinophils 0.05 0.03 - 0.61 K/cmm [facility] ABS Basophils 0.02 0.01 - 0.11 K/cmm [facility] Type of Diff: Automated [facility] 04/09/2012 6:15 EDT 04/09/2012 6:39 EDT Vaughn Gandhi MD HEMATOLOGY & PF4 OR DERABLES [facility] [address] [place] [address] * (ABNORMAL) HEMAGRAM (04/09/2012 6:15 EDT) WBC 6.33 4.0 - 10.4 K/cmm [facility] RBC 4.67 4.36 - 5.78 M/cmm [facility] Hemoglobin 13.7(L) 13.8 - 17.3 gm/dl [facility] HCT 41.8 39.5 - 50.2 % [facility] MCV 89 81 - 95 fl [facility] MCH 29.4 27.6 - 33.0 pg [facility] MCHC 32.9 32.8 - 36.4 gm/dl [facility] PLT 152 141 - 320 K/cmm [facility] RDW-CV 14.0 11.8 - 14.1 % [facility] 04/09/2012 6:15 EDT 04/09/2012 6:39 EDT Vaughn Gandhi MD HEMATOLOGY & PF4 OR DERABLES Performing Organization Address [facility] Co de Phone Number [facility] [address] [place] [address] * PTT (04/09/2012 6:15 EDT) PTT 28 26 - 37 secs [facility] Comment:Therapeutic Heparin range: 65-100 seconds Blood specimen (specimen) 04/09/2012 6:15 EDT 04/09/2012 6:39 EDT Vaughn Gandhi MD HEMATOLOGY & PF4 OR DERABLES Performing Organization Address [facility] de Phone Number [facility] [address] [place] [address] * CREATININE (04/09/2012 6:15 EDT) Creatinine 0.93 0.66 - 1.25 mg/dl [facility] GFR, Calculated >60 >60 ml/min/1.7 3m2 [facility] Blood specimen (specimen) 04/09/2012 6:15 EDT 04/09/2012 6:39 EDT Vaughn Gandhi MD CHEMISTRY & BLOOD G ORDERABLES Performing Organization Address [facility] Co de Phone Number [facility] [address] [place] [address] * BUN (04/09/2012 6:15 EDT) BUN 12 10 - 26 mg/dl [facility] Blood specimen (specimen) 04/09/2012 6:15 EDT 04/09/2012 6:39 EDT Vaughn Gandhi MD CHEMISTRY & BLOOD G ORDERABLES Performing Organization Address [facility] de Phone Number [facility] [address] [place] [address] * (ABNORMAL) ELECTROLYTES (04/09/2012 6:15 EDT) Sodium 139 136 - 145 mEq/L [facility] Potassium 4.1 3.5 - 5.0 mEq/L [facility] Chloride 106 96 - 110 mEq/L [facility] CO2 23(L) 24 - 32 mEq/L [facility] Blood specimen (specimen) 04/09/2012 6:15 EDT 04/09/2012 6:39 EDT Vaughn Gandhi MD CHEMISTRY & BLOOD G ORDERABLES Performing Organization Address [facility] de Phone Number [facility] [address] [place] [address] * LEFT HEART CATH (04/08/2012 13:33 EDT) Anatomical Region Laterality Modality Other 04/08/2012 13:3 3 EDT Narrative 04/13/2012 11:42 EDT ?[facility] ? [address] ??[place] [address] ? [phone] ? [email or web address] ?Final Diagnostic Cardiovascular Catheterization Report ?--- SUMMARY OF RESULTS --- > Diagnostic cardiac catheterization was performed without any significant complications. > Coronary angiography revealed mild luminal irregularities only. >There is prominent bridging in the mid LAD. > Injection of the RCA is associated with increased pauses of sinus arrest 5- 10 seconds. ? --- PLAN --- > It is recommended that the patient have medical therapy for mild coronary disease. > Further evaluation of the patient's sinus pauses is planned. ? --- PATIENT PRESENTATION --- The patient is a 66 year old male with the following indications: ??arrythmia, chest pain . The patient has the following Comorbidities/Risk Factors: ??Dyslipidemia, Hypertension. : 1945 ?Sex: male ?Height: 188cm ?Weight: 103.6kg ?BSA: 2.3 Allergies: ??NKA Pre-Automatic Grinder Operator Values: ??HCT: 36.8 ?Platelets: 168.0 ?Creatinine:.9 ? --- PROCEDURE --- DIAGNOSTIC CARDIAC PROCEDURE Under local anesthesia, the right femoral artery was accessed with a 6F sheath using modified Seldinger technique. ??A 6F JL4 catheter was introduced and positioned in the ascending aorta. Selective coronary arteriography was then performed using a 6F JL4 catheter to engage the left coronary artery and a 6F modified AR catheter to engage the right coronary artery. ??Right and left coronary arteriography were performed in multiple views. Via a 6F guide, an 0.014 inch RADI pressure wire was placed in the 2nd Diagonal. ??IV adenosine was infused achieving maximal hyperemia and the fractional flow reserve was assessed. The Largest Arterial Sheath/Cath placed was ??6F The Hemostasis method used was: ? Starclose Vascular Cheryl Sys Fluoro Time (min): 7 ?? The NCDR Recommends a Warning if FT > 30 minutes SELECTED MEDICATION ADMINISTERED DURING THE PROCEDURE: ??FENTANYL, VERSED ? (Please see PhysioLog report for complete list of medications used.) ?--- RESULTS --- HEMODYNAMICS ??Pressures: ?Site ?Systolic ??Diasto ??Mean ?lic ?Ao ?97 ?53 ?73 ?Ao ?89 ?50 ?67 ?Ao ?81 ?34 ?64 LEFT VENTRICULOGRAPHY Ventriculography was not performed during the procedure. FEMORAL ANGIOGRAPHIC FINDINGS The right common femoral artery was normal in size and had no significant angiographic lesions. The femoral artery sheath was placed within the common femoral artery. CORONARY ANGIOGRAPHIC FINDINGS [...] irregularities. Right Coronary Artery: The RCA was normal in size and had mild luminal irregularities. The RCA is dominant. FFR: flow wire of D1 was negative for ischemia by FFR .94 Referring Physician: EUGENE FUCHS,PREETH Diagnostic Attending: Edwin Hernandez MD Diagnostic Assisting 1: Augustina Ellison NP As the attending, supervising physician, I was present for the entire procedure. Signature date/time: 04/13/2012 11:42:18 AM Procedure Note Edwin Hernandez MD - 04/13/2012 [facility] [address] [place] [address] [phone] [email or web address] Final Diagnostic Cardiovascular Catheterization Report --- SUMMARY OF RESULTS --- > Diagnostic cardiac catheterization was performed without anysignificant complications. > Coronary angiography revealed mild luminal irregularities only. >There is prominent bridging in the mid LAD. > Injection of the RCA is associated with increased pauses of sinus arrest5- 10 seconds. --- PLAN --- > It is recommended that the patient have medical therapy for mildcoronary disease. > Further evaluation of the patient's sinus pauses is planned. --- PATIENT PRESENTATION --- The patient is a 66 year old male with the following indications:arrythmia, chest pain . The patient has the following Comorbidities/Risk Factors: Dyslipidemia, Hypertension. : 1945 Sex: male Height: 188cm Weight: 103.6kg BSA:2.3 Allergies: NKA Pre-Automatic Grinder Operator Values: HCT: 36.8 Platelets: 168.0 Creatinine:.9 --- PROCEDURE --- DIAGNOSTIC CARDIAC PROCEDURE Under local anesthesia, the right femoral artery was accessed with a 6Fsheath using modified Seldinger technique. A 6F JL4 catheter was introducedand positioned in the ascending aorta. Selective coronary arteriography was then performed using a 6F [id number] to engage the left coronary artery and a 6F modified AR catheter to engagethe right coronary artery. Right and left coronary arteriography wereperformed in multiple views. Via a 6F guide, an 0.014 inch RADI pressure wire was placed in the 2nd Diagonal. IV adenosine was infused achieving maximal hyperemia and the fractional flow reserve was assessed. The Largest Arterial Sheath/Cath placed was 6F The Hemostasis method used was: Starclose Vascular Cheryl Sys Fluoro Time (min): 7 The NCDR Recommends a Warning if FT > 30 minutes SELECTED MEDICATION ADMINISTERED DURING THE PROCEDURE: FENTANYL, VERSED (Please see PhysioLog report for complete list of medicationsused.) --- RESULTS --- HEMODYNAMICS Pressures: Site Systolic Diasto Mean lic Ao 97 53 73 Ao 89 50 67 Ao 81 34 64 LEFT VENTRICULOGRAPHY Ventriculography was not performed during the procedure. FEMORAL ANGIOGRAPHIC FINDINGS The right common femoral artery was normal in size and had nosignificant angiographic lesions. The femoral artery sheath was placed within the common femoral artery. CORONARY ANGIOGRAPHIC FINDINGS Left Main Artery: The left main coronary artery is normal in size and has no significant angiographic lesions. Note injection of RCA is associated with increased pauses of sinus arrest5 to 10 secs Left Anterior Descending Artery: The LAD was normal in size and had mild luminal irregularities. The proximal portion of the 2nd Diagonal arteryhas a 50% stenosis The mid LAD has prominent bridging. Circumflex Artery: The circumflex artery was normal in size and had mild luminal irregularities. Right Coronary Artery: The RCA was normal in size and had mild luminal irregularities. The RCA is dominant. FFR: flow wire of D1 was negative for ischemia by FFR .94 Referring Physician: EUGENE FUCHS,PREETH Diagnostic Attending: Edwin Hernandez MD Assisting 1: Augustina Ellison NP As the attending, supervising physician, I was present for the entire procedure. Signature date/time: 04/13/2012 11:42:18 AM Vaughn Gandhi MD CARDIAC CATH [facility] * ECHOCARDIOGRAM (04/08/2012 9:33 EDT) Anatomical Region Laterality Modality Other 04/08/2012 9:33 EDT Narrative 04/08/2012 10:54 EDT *Interpreting Group:* *[facility]* [address] [place] [address] *STUDY CONCLUSIONS* Summary: 1. Left ventricle: The cavity size was normal. Wall ?? thickness was normal. Systolic function was normal. The ?? estimated ejection fraction was 60-65%. Wall motion was ?? normal; there were no regional wall motion abnormalities. 2. Left atrium: The atrium was mildly dilated. *PATIENT PRESENTATION* Height: ? 188cm (74in ) S/D Pressure: 100 / 48 Weight: ? 103.4kg (227.5lb ) BSA: ?2.34m^2 Test start time: ??08:35 AM. Test stop time: ??09:35 AM. ADMITTING ?Nguyễn Nunez ATTENDING ?Nguyễn Nunez SURVEY ANALYST ??Kristy Rooney RN RDCS REFERRING ?Dereck Schultz ORDERING ? Vaughn Gandhi REFERRING ?Vaughn Gandhi PERFORMING ?? [facility], SURVEY ANALYST ??Shruthi Ricardo *PROCEDURE DATA* Procedure information: ??This study was interpreted by [facility] at [facility]. ??Study status: Routine. Transthoracic echocardiography. ??M-mode, complete 2D, complete spectral Doppler, and color Doppler. A Transthoracic Echocardiogram was performed. The parasternal window was low, thus no M-mode measurements were recorded. Scanning was performed from the parasternal, apical, subcostal, and suprasternal notch acoustic windows. Images were obtained using a Gissel IE33 5 cardiac ultrasound machine. Image quality was adequate. ??Study completion: The patient tolerated the procedure well. *INDICATIONS AND HISTORY* Indications: ?? Chest pain 786.51. *CARDIAC ANATOMY* Left ventricle: ??The cavity size was normal. Wall thickness was normal. Systolic function was normal. The estimated ejection fraction was 60-65%. Wall motion was normal; there were no regional wall motion abnormalities. Aortic valve: ?? Trileaflet; mildly thickened leaflets. Mobility was not restricted. ??Doppler: ??Transvalvular velocity was within the normal range. There was no stenosis. ??No regurgitation. Aorta: ??Aortic root: The aortic root was normal in size. Mitral valve: ?? Structurally normal valve. ?? Mobility was not restricted. ??Doppler: ??Transvalvular velocity was within the normal range. There was no evidence for stenosis. ??No regurgitation. ?Peak gradient: 5.1mm Hg (D). Left atrium: ??The atrium was mildly dilated. Right ventricle: ??The cavity size was normal. Wall thickness was normal. Systolic function was normal. Pulmonic valve: ?Doppler: ??Transvalvular velocity was within the normal range. There was no evidence for stenosis. Tricuspid valve: ?? Structurally normal valve. ?Doppler: Transvalvular velocity was within the normal range. ??Trivial regurgitation. Pulmonary artery: ?? Pulmonary systolic pressure was within the normal range. Right atrium: ??The atrium was normal in size. Pericardium: ??There was no pericardial effusion. Systemic veins: Inferior vena cava: The vessel was normal in size. *MEASUREMENT TABLES* 2D measurements ?Normal [...] u=mean value. Asterisk (*) plasencia values outside specified normal range. Electronically signed by Adan Valencia MD [id number] Procedure Note 04/08/2012 *Interpreting Group:* *[facility]* [address] [place] [address] *STUDY CONCLUSIONS* Summary: 1. Left ventricle: The cavity size was normal. Wall thickness was normal. Systolic function was normal. The estimated ejection fraction was 60-65%. Wall motion was normal; there were no regional wall motion abnormalities. 2. Left atrium: The atrium was mildly dilated. *PATIENT PRESENTATION* Height: 188cm (74in ) S/D Pressure: 100 / 48 Weight: 103.4kg (227.5lb ) BSA: 2.34m^2 Test start time: 08:35 AM. Test stop time: 09:35 AM. ADMITTING Nguyễn Nunez ATTENDING Nguyễn Nunez SURVEY ANALYST Kristy Rooney RN RDCS REFERRING Dereck Schulzt Preeth REFERRING Vaughn Gandhi PERFORMING Fa, SURVEY ANALYST Shruthi Ricardo *PROCEDURE DATA* Procedure information: This study was interpreted by [facility] at [facility]. Study status: Routine. Transthoracic echocardiography. M-mode, complete 2D, complete spectral Doppler, and color Doppler. A Transthoracic Echocardiogram was performed. The parasternal window was low, thus no M-mode measurements were recorded. Scanning was performed from the parasternal, apical, subcostal, and suprasternal notch acoustic windows. Images were obtained using a Gissel [id number] 5 cardiac ultrasound machine. Image quality was adequate. Study completion: The patient tolerated the procedure well. *INDICATIONS AND HISTORY* Indications: Chest pain 786.51. *CARDIAC ANATOMY* Left ventricle: The cavity size was normal. Wall thickness was normal. Systolic function was normal. The estimated ejection fraction was 60-65%. Wall motion was normal; there were no regional wall motion abnormalities. Aortic valve: Trileaflet; mildly thickened leaflets. Mobility was not restricted. Doppler: Transvalvular velocity was within the normal range. There was no stenosis. No regurgitation. Aorta: Aortic root: The aortic root was normal in size. Mitral valve: Structurally normal valve. Mobility was not restricted. Doppler: Transvalvular velocity was within the normal range. There was no evidence for stenosis. No regurgitation. Peak gradient: 5.1mm Hg (D). Left atrium: The atrium was mildly dilated. Right ventricle: The cavity size was normal. Wall thickness was normal. Systolic function was normal. Pulmonic valve: Doppler: Transvalvular velocity was within the normal range. There was no evidence for stenosis. Tricuspid valve: Structurally normal valve. Doppler: Transvalvular velocity was within the normal range. Trivial regurgitation. Pulmonary artery: Pulmonary systolic pressure was within the normal range. Right atrium: The atrium was normal in size. Pericardium: There was no pericardial effusion. Systemic veins: Inferior vena cava: The vessel was normal in size. *MEASUREMENT TABLES* 2D measurements Normal Left ventricle Volume, ED, MOD, 1-plane 105 ml ------- Volume, ES, MOD, 1-plane 37 ml ------- Ejection fraction, MOD, 1-plane 65 % ------- Volume index, ED, MOD, 1-plane 45 ml/m^2 ------- Volume index, ES, MOD, 1-plane 16 ml/m^2 ------- Aorta Root diameter, ED 40 mm ------- Ascending aorta anterior-posterior 36 mm ------- diameter, S Left atrium Anterior-posterior dimension 41 mm ------- Anterior-posterior dimension index 1.75 cm/m^2 <2.2 Doppler measurements Normal Left ventricle IVRT 95 ms 60-100 Mitral valve Peak E-wave velocity 113 cm/s ------- Peak A-wave velocity 89.3 cm/s ------- Deceleration time *239 ms 150-230 Peak gradient, D 5.1 mm Hg ------- Peak E/A ratio 1.27 ------- Legend: Mean values are shown as u=mean value. Asterisk (*) plasencia values outside specified normal range. Electronically signed by Adan Valencia MD [id number] Vaughn Gandhi MD CARDIAC ECHO ORDERA BLES * (ABNORMAL) PTT (04/08/2012 7:56 EDT) [facility] PTT 99(H) 26 - 37 secs [facility] Comment:Therapeutic Heparin range: 65-100 seconds Blood specimen (specimen) 04/08/2012 7:56 EDT 04/08/2012 8:03 EDT Erwin Armando MD HEMATOLOGY & PF4 ORD ERABLES Performing Organization Address [facility] Co de Phone Number [facility] [address] [place] [address] * CK MB WITH TOTAL CK (04/08/2012 7:56 EDT) [facility] CK 65 0 - 250 U/L [facility] MB 0.76 <4.21 ng/ml [facility] Blood specimen (specimen) 04/08/2012 7:56 EDT 04/08/2012 8:28 EDT Vaughn Gandhi MD CHEMISTRY & BLOOD G ORDERABLES Performing Organization Address [facility] Phone Number [facility] [address] [place] [address] * TROPONIN I (04/08/2012 7:56 EDT) [facility] Troponin I (ng/mL) <0.034 <0.034 ng/ml [facility] Blood specimen (specimen) 04/08/2012 7:56 EDT 04/08/2012 8:28 EDT Vaughn Gandhi MD CHEMISTRY & BLOOD G ORDERABLES Performing Organization Address [facility] de Phone Number [facility] [address] [place] [address] * HEMOGLOBIN A1C (04/08/2012 0:56 EDT) [facility] Hemoglobin A1C 6.0 % [facility] Comment: Reference Range: <5.7% Normal 5.7-6.4% Increased risk for diabetes =>6.5% Diagnostic for diabetes (if confirmed) The A1c goal for non adults in general is <7%. The A1c goal for selected patients may be significantly lower than 7% if this can be achieved without significant hypoglycemia or other adverse effects of treatment. Est Avg Glucose 126 mg/dl [facility] Comment: eAG represents the A1c result expressed as average glucose in mg/dl. Blood specimen (specimen) 04/08/2012 0:56 EDT 04/08/2012 1:07 EDT Vaughn Gandhi MD CHEMISTRY & BLOOD G ORDERABLES Performing Organization Address [facility] de Phone Number [facility] [address] [place] [address] * DIFFERENTIAL (04/08/2012 0:51 EDT) % Neutrophils 68.4 45.5 - 79.7 % [facility] % Lymphocytes 20.1 15.0 - 46.8 % [facility] % Monocytes 9.6 1.8 - 12.0 % [facility] % Eosinophils 1.5 0.6 - 6.9 % [facility] % Basophils 0.4 0.2 - 1.4 % [facility] ABS Neutrophils 4.54 2.20 - 8.85 K/cmm [facility] ABS Lymphs 1.33 1.09 - 3.30 K/cmm [facility] ABS Monocytes 0.63 0.1 - 0.8 K/cmm [facility] ABS Eosinophils 0.10 0.03 - 0.61 K/cmm [facility] ABS Basophils 0.02 0.01 - 0.11 K/cmm [facility] Type of Diff: Automated [facility] 04/08/2012 0:51 EDT 04/08/2012 1:04 EDT Vaughn Gandhi MD HEMATOLOGY & PF4 OR DERABLES Performing Organization Address [facility] Co de Phone Number [facility] [address] [place] [address] * (ABNORMAL) HEMAGRAM (04/08/2012 0:51 EDT) WBC 6.62 4.0 - 10.4 K/cmm [facility] RBC 4.21(L) 4.36 - 5.78 M/cmm [facility] Hemoglobin 12.6(L) 13.8 - 17.3 gm/dl [facility] HCT 36.8(L) 39.5 - 50.2 % [facility] MCV 87 81 - 95 fl [facility] MCH 30.0 27.6 - 33.0 pg [facility] MCHC 34.3 32.8 - 36.4 gm/dl [facility] PLT 168 141 - 320 K/cmm [facility] RDW-CV 14.2(H) 11.8 - 14.1 % [facility] 04/08/2012 0:51 EDT 04/08/2012 1:04 EDT Vaughn Gandhi MD HEMATOLOGY & PF4 OR DERABLES [facility] [address] [place] [address] * LIPID PROFILE (INCLUDES CHOLESTEROL, TRIGLYCERIDES, HDL, LDL) (04/08/2012 0:51 EDT) Cholesterol 111 mg/dl [facility] Comment: Slight hemolysis Desirable:<200 Borderline High:200-239 High:>xi=693 Triglycerides 117 mg/dl [facility] Comment: Slight hemolysis Normal:<150 Borderline High:150-199 High:200-499 Very High:>wo=404 HDL 22 mg/dl [facility] Comment: Slight hemolysis Low:<40 Normal:40-60 Desirable: >60 LDL, Calculated 66 mg/dl [facility] Comment: Optimal:<100 Near Optimal:100-129 Borderline High:130-159 High:160-189 Very High:>me=741 Chol/HDL Ratio 5.0 [facility] Fasting? YES [facility] 04/08/2012 0:51 EDT 04/08/2012 1:04 EDT Vaughn Gandhi MD CHEMISTRY & BLOOD G ORDERABLES Performing Organization Address [facility] Phone Number [facility] [address] [place] [address] * CREATININE (04/08/2012 0:51 EDT) Creatinine 0.96 0.66 - 1.25 mg/dl [facility] Comment:Slight hemolysis GFR, Calculated >60 >60 ml/min/1.7 3m2 [facility] Blood specimen (specimen) 04/08/2012 0:51 EDT 04/08/2012 1:04 EDT Vaughn Gandhi MD CHEMISTRY & BLOOD G ORDERABLES Performing Organization Address [facility] Phone Number [facility] [address] [place] [address] * BUN (04/08/2012 0:51 EDT) BUN 19 10 - 26 mg/dl [facility] Comment: Slight hemolysis Results may be affected due to hemolysis. Blood specimen (specimen) 04/08/2012 0:51 EDT 04/08/2012 1:04 EDT Vaughn Gandhi MD CHEMISTRY & BLOOD G ORDERABLES Performing Organization Address [facility] Phone Number [facility] [address] [place] [address] * ELECTROLYTES (04/08/2012 0:51 EDT) Sodium 138 136 - 145 mEq/L [facility] Comment:Slight hemolysis Potassium 4.4 3.5 - 5.0 mEq/L [facility] Comment: Slight hemolysis Hemolysis may elevate potassium result. Chloride 108 96 - 110 mEq/L [facility] Comment:Slight hemolysis CO2 24 24 - 32 mEq/L [facility] Comment:Slight hemolysis Blood specimen (specimen) 04/08/2012 0:51 EDT 04/08/2012 1:04 EDT Vaughn Gandhi MD CHEMISTRY & BLOOD G ORDERABLES Performing Organization Address [facility] de Phone Number [facility] [address] [place] [address] * CK MB WITH TOTAL CK (04/08/2012 0:51 EDT) Pathologist [facility] CK 76 0 - 250 U/L [facility] MB 0.73 <4.21 ng/ml [facility] Blood specimen (specimen) 04/08/2012 0:51 EDT 04/08/2012 1:04 EDT Vaughn Gandhi MD CHEMISTRY & BLOOD G ORDERABLES Performing Organization Address [facility] Phone Number [facility] [address] [place] [address] * TROPONIN I (04/08/2012 0:51 EDT) [facility] Troponin I (ng/mL) <0.034 <0.034 ng/ml [facility] Blood specimen (specimen) 04/08/2012 0:51 EDT 04/08/2012 1:04 EDT Vaughn Gandhi MD CHEMISTRY & BLOOD G ORDERABLES Performing Organization Address [facility] Phone Number [facility] [address] [place] [address] * PTT (04/08/2012 0:51 EDT) Pathologist [facility] PTT 28 26 - 37 secs [facility] Comment:Therapeutic Heparin range: 65-100 seconds Blood specimen (specimen) 04/08/2012 0:51 EDT 04/08/2012 1:04 EDT Vaughn Gandhi MD HEMATOLOGY & PF4 OR DERABLES Performing Organization Address [facility] de Phone Number [facility] [address] [place] [address] * PROTIME (04/08/2012 0:51 EDT) Pathologist [facility] Pro Time 12.1 9.5 - 13.1 secs [facility] I.N.R. 1.1 0.9 - 1.1 Ratio [facility] Comment: Moderate Intensity Coumadin INR = 2.0-3.0 Adjustments in anticoagulant therapy dose should be based upon the INR and NOT the Pro Time. Blood specimen (specimen) 04/08/2012 0:51 EDT 04/08/2012 1:04 EDT Vaughn Gandhi MD HEMATOLOGY & PF4 OR DERABLES Performing Organization Address [facility] de Phone Number [facility] [address] [place] [address] * (ABNORMAL) SCREENING GLUCOSE (04/08/2012 0:51 EDT) Glucose, Screening 103(H) 70 - 100 mg/dl [facility] Comment: Slight hemolysis Results may be affected due to hemolysis. Blood specimen (specimen) 04/08/2012 0:51 EDT 04/08/2012 1:04 EDT Vaughn Gandhi MD CHEMISTRY & BLOOD G ORDERABLES Performing Organization Address [facility] Phone Number [facility] [address] [place] [address] * TROPONIN I (04/08/2012 0:08 EDT) Pathologist [facility] Troponin I (ng/mL) <0.034 <0.034 ng/ml [facility] Blood specimen (specimen) 04/08/2012 0:08 EDT 04/08/2012 0:12 EDT Vaughn Gandhi MD CHEMISTRY & BLOOD G ORDERABLES Performing Organization Address [facility] de Phone Number [facility] [address] [place] [address] * EKG 12-LEAD (04/07/2012 21:33 EDT) 04/07/2012 21:3 3 EDT Narrative [facility] - 04/08/2012 10:11 EDT ?[facility] ? Test Date: ?2012-04-07 Pat Name: ? DEON COLGROVE ?Department: ?? ED ? Room: ? AC10 Gender: ? M ?Rehab Aid: ?? [id number] : ?1945 ? Requested By: DINA DAVISON Order Number: [id number] ?Reading MD: ?? Edwin Hernandez MD ? Measurements Intervals ?[place] ? Rate: ? 53 ? P: ?53 MN: ? 180 ?QRS: ?45 QRSD: ? 96 ? T: ?56 QT: ? 520 ? QTc: ?502 ? 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, MOBITZ TYPE II LONG QT INTERVAL No previous ECG available for comparison Electronically Signed On 04-08-12 10:11:24 EDT by Edwin Hernandez MD Procedure Note Edwin Hernandez MD - 04/08/2012 [facility] Test Date: 2012-04-07 Pat Name: DEON HUSTON Department: ED Room: [facility] Gender: M Rehab Aid: [id number] : 1945 Requested By: DINA DAVISON Order Number: [id number] Reading MD: Edwin Hernandez MD Measurements Intervals [place] Rate: 53 P: 53 MN: 180 QRS: 45 QRSD: 96 T: 56 QT: 520 QTc: 502 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, MOBITZ TYPE II LONG QT INTERVAL No previous ECG available for comparison Electronically Signed On 04-08-12 10:11:24 EDT by Edwin Hernandez MD Adan Valencia MD CARDIAC ECG ORDER [facility] [address] [place] [address] documented in this encounter Visit Diagnoses Diagnosis Chest pain Chest pain, unspecified Lipids abnormal Unspecified disorder of lipoid metabolism HTN (hypertension) Unspecified essential hypertension Unstable angina (HCC-CMS) Intermediate coronary syndrome Dizziness - light-headed Dizziness and giddiness SSS (sick sinus syndrome) (HCC-CMS) Sinoatrial node dysfunction Chest pain Chest pain, unspecified Dizziness - light-headed Dizziness and giddiness SSS (sick sinus syndrome) (HCC-CMS) Sinoatrial node dysfunction documented in this encounter Administered Medications Inactive Administered Medications - up to 3 most recent administrations Medication Order MAR Action Action Date Dose Rate Site acetaminophen (TYLENOL) tablet 650 mg 650 mg, oral, EVERY 4 HOURS PRN, Starting on Fri04/09/12 at 1403, Until Fri04/10/12 at 1634, Pain, Routine, Postprocedure Given 04/10/2012 8:53 EDT 650 mg Given 04/09/2012 23:22 EDT 650 mg Given 04/09/2012 17:04 EDT 650 mg aspirin chewable tablet 81 mg 81 mg, oral, DAILY, First dose on Fri04/08/12 at 0900, Until Discontinued, STAT Given 04/10/2012 8:53 EDT 81 mg Given 04/09/2012 8:04 EDT 81 mg Given 04/08/2012 9:46 EDT 81 mg ceFAZolin (ANCEF) 1,000 mg in sodium chloride 0.9 % 50 mL IVPB 1,000 mg, intravenous, Administer over 30 Minutes, EVERY 8 HOURS, 3 doses, First dose on Fri04/09/12 at 1430, Last dose on Fri04/10/12 at 0800, Routine, Postprocedure Given 04/10/2012 6:13 EDT 1,000 mg Given 04/09/2012 21:43 EDT 1,000 mg clopidogrel (PLAVIX) tablet 300 mg 300 mg, oral, NOW X1, 1 dose, On Fri04/08/12 at 0045, STAT Given 04/08/2012 1:33 EDT 300 mg clopidogrel (PLAVIX) tablet 75 mg 75 mg, oral, DAILY, First dose on Fri04/08/12 at 0900, Until Discontinued, STAT Given 04/08/2012 9:46 EDT 75 mg finasteride (PROSCAR) tablet 5 mg 5 mg, oral, DAILY, First dose on Fri04/08/12 at 0900, Until Discontinued, STAT Given 04/10/2012 8:53 EDT 5 mg Given 04/09/2012 8:04 EDT 5 mg Given 04/08/2012 9:46 EDT 5 mg heparin 1,000 unit/mL injection 6,200 Units 6,200 Units (70 Units/kg ? 89.2 kg Adjusted weight), intravenous, NOW X1, 1 dose, On Fri04/08/12 at 0045, STAT Given 04/08/2012 1:35 EDT 6,200 Units heparin in D5W 25,000 unit/250 mL infusion 15 Units/kg/hr ? 89.2 kg Adjusted weight (rounded to 13.4 mL/hr), intravenous, CONTINUOUS, Starting on Fri04/08/12 at 0045, Until Fri04/08/12 at 1400, STAT Rate Documented 04/08/2012 7:30 EDT 15 Units/kg/hr 13.4 mL/hr Rate Documented 04/08/2012 3:07 EDT 15 Units/kg/hr 13.4 mL /hr New Bag 04/08/2012 1:36 EDT 15 Units/kg/hr 13.4 mL/hr heparin injection 5,000 Units 5,000 Units, subcutaneous, EVERY 8 HOURS, First dose on Marti 04/09/12 at 1600, Until Discontinued, Routine Given 04/10/2012 8:53 EDT 5,000 Units Given 04/09/2012 23:25 EDT 5,000 Units Given 04/09/2012 17:04 EDT 5,000 Units nitroglycerin 400 mcg/ml in D5W 250 ml infusion 1 dose, Starting on Fri04/07/12 at 2136, Until Fri04/07/12 at 2107 nitroglycerin 400 mcg/ml in D5W 250 ml infusion 5 mcg/min (rounded to 0.8 mL/hr), intravenous, CONTINUOUS, Starting on Fri04/07/12 at 2245, Until Fri04/08/12 at 1513, STAT Rate Documented 04/08/2012 7:43 EDT 100 mcg/min 15 mL/hr Rate Change 04/08/2012 3:09 EDT 100 mcg/min 15 mL/hr Rate Documented 04/08/2012 3:05 EDT 125 mcg/min 18.8 mL/hr pantoprazole (PROTONIX) tablet 40 mg 40 mg, oral, DAILY, First dose on Fri04/08/12 at 0900, Until Discontinued, STAT Given 04/10/2012 8:53 EDT 40 mg Given 04/09/2012 8:04 EDT 40 mg Given 04/08/2012 9:46 EDT 40 mg simvastatin (ZOCOR) tablet 40 mg 40 mg, oral, EVERY EVENING, First dose on Fri04/08/12 at 1700, Until Discontinued, STAT Given 04/09/2012 17:04 EDT 40 mg Given 04/08/2012 17:32 EDT 40 mg sodium chloride 0.9 % (NS) infusion at 75 mL/hr, intravenous, CONTINUOUS, Starting on Fri04/08/12 at 0200, Until Fri04/08/12 at 1335, STAT Rate Documented 04/08/2012 7:44 EDT 75 mL/hr New Bag 04/08/2012 1:36 EDT 75 mL/hr documented in this encounter Historical Medications * This list may reflect changes made after this encounter. Medication Sig Dispensed Refills Start Date End Date aspirin chewable 81 mg tablet Take 81 mg by mouth daily. 12/07/2018 omeprazole (PRILOSEC) 20 mg capsule Take 40 mg by mouth daily. 05/11/2019 finasteride (PROSCAR) 5 mg tablet Take 5 mg by mouth daily. 10/24/2022 lisinopril (PRINIVIL, ZESTRIL) 10 mg tablet Take 10 mg by mouth daily. 09/15/2013 simvastatin (ZOCOR) 40 mg tablet Take 40 mg by mouth every evening. 11/09/2020 added in this encounter Active and Recently Administered Medications Times are shown in EDT. Scheduled Medication Order 04/08/2012 04/09/2012 04/10/2012 aspirin chewable tablet 81 mg (CANCELED) 81 mg, oral, DAILY, First dose on Fri04/08/12 at 0900, Until Discontinued, STAT 0946 (Given - Provider: Sophie Kothari RN) 0804 (Given - Provider: Rocio Mustafa RN) 0853 (Given - Provider: Marie Houston RN) ceFAZolin (ANCEF) 1,000 mg in sodium chloride 0.9 % 50 mL IVPB (CANCELED) 1,000 mg, intravenous, Administer over 30 Minutes, EVERY 8 HOURS, 3 doses, First dose on Fri04/09/12 at 1430, Last dose on Fri04/10/12 at 0800, Routine, Postprocedure 1430 (Canceled Entry - Provider: Rocio Mustafa RN)2143 (Given - Provider: Karin Coronado RN) 0000 (Canceled Entry - Provider: Rocio Mustafa RN)0613 (Given - Provider: Karin Coronado RN)0800 (Canceled Entry - Provider: Rocio Mustafa, TRAM) clopidogrel (PLAVIX) tablet 300 mg (COMPLETED) 300 mg, oral, NOW X1, 1 dose, On Fri04/08/12 at 0045, STAT 0133 (Given - Provider: Lexi Self RN) clopidogrel (PLAVIX) tablet 75 mg (CANCELED) 75 mg, oral, DAILY, First dose on Fri04/08/12 at 0900, Until Discontinued, STAT 0946 (Given - Provider: Sophie Kothari, TRAM) finasteride (PROSCAR) tablet 5 mg (CANCELED) 5 mg, oral, DAILY, First dose on Fri04/08/12 at 0900, Until Discontinued, STAT 0946 (Given - Provider: Sophie Kothari RN) 0804 (Given - Provider: Rocio Mustafa RN) 0853 (Given - Provider: Marie Houston RN) heparin 1,000 unit/mL injection 6,200 Units (COMPLETED) 6,200 Units (70 Units/kg ? 89.2 kg Adjusted weight), intravenous, NOW X1, 1 dose, On Fri04/08/12 at 0045, STAT 0135 (Given - Provider: Lexi Self RN) heparin injection 5,000 Units (CANCELED) 5,000 Units, subcutaneous, EVERY 8 HOURS, First dose on Fri04/09/12 at 1600, Until Discontinued, Routine 1704 (Given - Provider: Joanie Cole RN)2325 (Given - Provider: Karin Coronado RN) 0853 (Given - Provider: Marie Houston RN) pantoprazole (PROTONIX) tablet 40 mg (CANCELED) 40 mg, oral, DAILY, First dose on Fri04/08/12 at 0900, Until Discontinued, STAT 0946 (Given - Provider: Sophie Kothari RN) 0804 (Given - Provider: Rocio Mustafa RN) 0853 (Given - Provider: Marie Houston RN) simvastatin (ZOCOR) tablet 40 mg (CANCELED) 40 mg, oral, EVERY EVENING, First dose on Fri04/08/12 at 1700, Until Discontinued, STAT 0204 (Not Given - Provider: Lexi Self RN - Reason: NPO)1732 (Given - Provider: Sophie Kothari, TRAM) 1704 (Given - Provider: Joanie Cole, TRAM) Continuous Medication Order 04/08/2012 04/09/2012 04/10/2012 heparin in D5W 25,000 unit/250 mL infusion (CANCELED) 15 Units/kg/hr ? 89.2 kg Adjusted weight (rounded to 13.4 mL/hr), intravenous, CONTINUOUS, Starting on Fri04/08/12 at 0045, Until Fri04/08/12 at 1400, STAT 0136 (New Bag - Provider: Lexi Self RN)0307 (Rate Documented - Provider: Eliceo Martin RN)0730 (Rate Documented - Provider: Sophie Kothari, TRAM) nitroglycerin 400 mcg/ml in D5W 250 ml infusion (CANCELED) 5 mcg/min (rounded to 0.8 mL/hr), intravenous, CONTINUOUS, Starting on Fri04/07/12 at 2245, Until Fri04/08/12 at 1513, STAT 0015 (Canceled Entry - Provider: Ce Melchor RN)0305 (Rate Documented - Provider: Eliceo Martin, TRAM)0309 (Rate Change - Provider: Eliceo Martin, TRAM)0743 (Rate Documented - Provider: Sophie Kothari, TRAM) sodium chloride 0.9 % (NS) infusion () at 75 mL/hr, intravenous, CONTINUOUS, Starting on Fri04/08/12 at 0200, Until Fri04/08/12 at 1335, STAT 0136 (New Bag - Provider: Lexi Self RN)0744 (Rate Documented - Provider: Sophie Kothari, RN) PRN Medication Order 04/08/2012 04/09/2012 04/10/2012 acetaminophen (TYLENOL) tablet 650 mg 650 mg, oral, EVERY 4 HOURS PRN, Starting on Marti 04/09/12 at 1403, Until 04/10/12 at 1634, Pain, Routine, Postprocedure 1704 (Given - Provider: Joanie Cole, TRAM)2322 (Given - Provider: Karin Coronado RN) 0828 (Given - Provider: Marie Houston RN) documented in this encounter Orders Medications Ordered That Ramon ht Not Have Been Administered Count Last Ordered Date First Ordered Date oxycodone-acetaminophen (PER COCET) 5-325 mg per tablet 1-2 Tab 1 04/09/2012 heparin 1,000 unit/mL inject ion 3,100 Units 1 04/08/2012 heparin 1,000 unit/mL inject ion 6,200 Units 1 04/08/2012 lidocaine-EPINEPHrine 2 %-1: 100,000 injection 5-10 mL 1 04/08/2012 omeprazole (PRILOSEC) capsule 20 mg 1 04/08 sodium bicarbonate 8.4 % 150 mEq in dextrose 5% (D5W) 1,000 mL infusion 2 04/08/2012 EKG Orders Without Results Count Last Ordered D ate First Ordered Date EKG 12-LEAD 1 04/07/2012 Admission Count Last Ordered Date First Orde red Date STATUS: INPATIENT ACUTE ADMISSION 2 012 04/07/2012 Transfer Count Last Ordered Date First Orde red Date NOTIFY PPS OF DISCHARGE COMPLETE 1 04/10/20 12 NOTIFY PPS OF ROOM CHANGE COMPLETE 1 2011 TEACHING SERVICE 1 04/08/2012 Discharge Count Last Ordered Date First Orde red Date DISCHARGE PATIENT 1 04/10/2012 documented in this encounter Care Teams Driver Relationship Specialty Start Date End Date Dereck Schultz MD PCP - General 10/19/08 02/12/17 documented as of this encounter
--- OUTSIDE RECORDS SUMMARY | 2024-01-09 01:55 | XMS_ITS | Encounter Summary ---
Author Organization [facility] Address [address] [place] [address] Care Team Providers Care Production Line Operator Name Role Phone Dereck Schultz MD Primary Care Provider U navailable Reason for Referral * Radiology Services (Routine) - Closed Specialty Diagnoses / Procedures Referred By Marissa carney Referred To Contact Diagnoses Pain in joint, ankle and foot Procedures HAND 2 VIEWS Major Turner MD [address] [place] [address] Referral ID Status Reason Start Date Expiration Date Visits Re quested Visits Authorized [id number] Closed 09/15/2013 1 1 Reason for Visit * Reason Comments Joint Pain back, neck, shoulder ,hand,/ mostly left sided Numbness hands and feet Encounter Details Date Type Department Care Team (Latest Contact Info) Description 09/15/2013 9:30 EDT Office Visit [facility] Rheumatology & Immunology - [facility] [address] [place] [address] Major Turner MD Pain in joint, ankle and foot (Primary Dx); CTS (carpal tunnel syndrome); Muscle pain Social History Tobacco Use Types Packs/Day Years [...] NOS[ICD-9-CM] documented in this encounter Patient Instructions * Patient Instructions* Thony Richey DO - 09/15/2013 11:30 EDT 1. Continue the current dose of prednisone at 30 mg 2. Xrays and Lab work today 3. The EMG test--speak to the front office schedulers about that 4. Bring a CD at next visit of your xrays and CT scan 5. Come back to see us in 3 weeks documented in this encounter Progress Notes * Thony Richey DO - 09/15/2013 1138 EDT Rheumatology Initial Patient Visit / Consultation 09/15/2013 Dereck Schultz MD Frank Meierdiercks, MD 2 [facility] [address] Chief Complaint Patient presents with ??? Joint [...] a chair and has required him to product picker his leg with hishands to get out of his truck. His [...] that we have not been able to directlyvisualize including a shoulder xray (the interpretation of [...] CRP 1.66, CK 66 and a normal BMP/CBC/Calcium.Approximately2 weeks ago the patient was put on [...] repeats at PCP. Social: , 3 children. 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 Achiles 1+ (B). Toes downgoingon babinski test.Left hip pain on external rotation. [...] impingement and some element of wrist inflammation causingirritation in wrist sheath. Suspect carpal tunnel syndrome [...] [facility] Hematology & Oncology - [address] [phone] Erin Barillas MD [address] [place] [address], [facility] [address] [place] [phone] 05/18/2024 10:00 EST Office Visit [facility] Rheumatology & Immunology [address] [address] Tod Perez NP [address] [place] [address], [facility] [address] [place] [phone] 06/03/2024 9:00 EST Ancillary Procedure [facility] [address] [place] [phone] 06/03/2024 9:00 EST Office Visit [facility] [address] [place] [address] [phone] Claire Lopez NP [address] [place] [address] [facility] [address] [place] [phone] documented as of this encounter Procedures Procedure Name Priority Date/Time Associated Diagnosis Comments PATHOLOGY - SCANNED 09/16/2013 1 4:00 EDT HAND 2 VIEWS Routine 09/15/2013 11:49 EDT Pain in joint, ankle and foot documented in this encounter Results * PATHOLOGY - SCANNED (09/16/2013 14:00 EDT) 09/16/2013 14:0 0 EDT Scan 2 [facility]ant LAB INFO SERVICE AN D SUPPORT & PHONE RESULT * SED. RATE:TERIREN (09/15/2013 11:57 EDT) Pathologist [facility] Sed. Rate Westergren 4 0 - 20 mm/hr [facility] Blood specimen (specimen) 09/15/2013 11:57 EDT 09/15/2013 13:08 EDT Major Turner MD HEMATOLOGY & PF4 ORD ERABLES Performing Organization Address [facility] Co de Phone Number [facility] [address] [place] [address] * C-REACTIVE PROTEIN (09/15/2013 11:57 EDT) Pathologist [facility] C-Reactive Protein 0.8 <1.0 mg/dl [facility] Blood specimen (specimen) 09/15/2013 11:57 EDT 09/15/2013 13:08 EDT Major Turner MD CHEMISTRY & BLOOD GA S ORDERABLES Performing Organization Address [facility] de Phone Number [facility] [address] [place] [address] * (ABNORMAL) COMPREHENSIVE METABOLIC PANEL (CMP) (09/15/2013 11:57 EDT) Pathologist [facility] Potassium 4.9 3.5 - 5.0 mEq/L [facility] Sodium 140 136 - 145 [...] [facility] Calcium 9.8 8.5 - 10.5 mg/dl [facility] Calculated Calcium 9.5 8.5 - 10.5 mg/dl [facility] Glucose, Serum 138(H) 70 - 100 mg/dl [facility] Fasting? Unknown [facility] Blood specimen (specimen) 09/15/2013 11:57 EDT 09/15/2013 13:08 EDT Major Turner MD CHEMISTRY & BLOOD GA S ORDERABLES [facility] [address] [place] [address] * ELECTROPHORESIS, SERUM (09/15/2013 11:57 EDT) Total Protein 7.5 6.5 - 8.3 g/dl [facility] Albumin, SPEP 55.6 47.6 - 61.9 % [facility] Alpha-1 % 4.1 1.4 - 4.6 % [facility] [...] BLOOD GA S ORDERABLES Performing Organization Address [facility] de Phone Number [facility] [address] [place] [address] * TSH (09/15/2013 11:57 EDT) TSH 0.38 0.35 - 5.00 uIU/ml [facility] Blood specimen (specimen) 09/15/2013 11:57 EDT 09/15/2013 13:08 EDT Majro Turner MD CHEMISTRY & BLOOD GA S ORDERABLES Performing Organization Address [facility] Phone Number [facility] [address] [address] * CCP ANTIBODIES (09/15/2013 11:57 EDT) CCP Antibodies <2.5 <5.0 U/mL BOBTATIANA [facility] 09/15/2013 11:5 7 EDT 09/15/2013 13:08 EDT Major Turner MD IMMUNOLOGY AND SEROL OGY ORDERABLES Performing Organization Address [facility] Phone Number [facility] [address] [place] [address] * HAND 2 VIEWS (09/15/2013 11:49 EDT) Anatomical Region Laterality Modality Other 09/15/2013 11:4 9 EDT 09/15/2013 16:34 EDT Narrative 09/15/2013 16:34 EDT HAND 2 VIEWS ??09/15/2013 11:49 AM Signs and Symptoms/Comments: ??719.47-Pain in joint, ankle and jazq-ZKJ-9-CM; hand pain. Comparisons: None. Technique: PA and AP ball-catcher's view of the left hand. Findings: Osteoarthritic degenerative changes are evident within the triscaphe joint with asymmetric joint space loss, subchondral sclerosis and osteophytes present. Mild degenerative changes are evident in the 1st MCP and carpometacarpal joint spaces. Additional mild osteoarthrosis is present throughout the DIP joints. The remainder of the joint spaces are relatively preserved. The overlying soft tissues are unremarkable. 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 Procedure Note 09/15/2013 HAND 2 VIEWS 09/15/2013 11:49 AM Signs and Symptoms/Comments: 719.47-Pain in joint, ankle and gpzc-DYP-2-CM; hand pain. Comparisons: None. Technique: PA and AP ball-catcher's view of the left hand. Findings: Osteoarthritic degenerative changes are evident within the triscaphe joint with asymmetric joint space loss, subchondral sclerosis and osteophytes present. Mild degenerative changes are evident in the 1st MCP and carpometacarpal joint spaces. Additional mild osteoarthrosis is present throughout the DIP joints. The remainder of the joint spaces are relatively preserved. The overlying soft tissues are unremarkable. 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 Major Turner MD IMG DIAGNOSTIC IMAGI NG ORDERABLES documented in this encounter Visit Diagnoses Diagnosis Pain in joint, ankle and foot- Primary CTS (carpal tunnel syndrome) Carpal tunnel syndrome Muscle pain Mylagia and myositis, unspecified documented in this encounter Discontinued Medications Medication Sig Discontinue Reason Start Date End Da te lisinopril (PRINIVIL, ZESTRIL) 10 mg tablet Take 10 mg by mouth daily. Formulary change 09/15/2013 documented as of this encounter Historical Medications * This list may reflect changes made after this encounter. Medication Sig Dispensed Refills Start Date End Date PREDNISONE ORAL Take 20 mg by mouth daily 20 mg alt with 10 mg. 02/07/2014 HYDROcodone-acetaminophen (VICODIN) 5-300 mg tablet Take 2 Tabs by mouth at bedtime. 03/29/2015 ibuprofen (MOTRIN) 200 mg tablet Take 200 mg by mouth every 6 hours as needed for Pain. 12/15/2020 metoprolol (LOPRESSOR) 25 mg tablet Take 25 mg by mouth daily. 11/17/2019 added in this encounter Care Teams Production Line Operator Relationship Specialty Start Date End Date Dereck Schultz MD PCP - General 10/19/08 02/12/17 documented as of this encounter
--- OUTSIDE RECORDS SUMMARY | 2024-01-09 01:55 | XMS_ITS | Clinical Summary ---
Author Organization [facility] Address [facility] [place] [address] Care Team Providers Care Scenic Designer Name Role Phone Vianey Bocanegra BATSHEVA Primary Care Provider [phone] Allergies Active Allergy Reactions Criticality Noted Date Comments Lisinopril Other (See Comments) High 01/28/2023 Cough Medications Medication Sig Dispensed Refills Start Date End Date Status CIS Free Text Med - Baby ASA (aspirin) 10/13/2006 Active simvastatin (ZOCOR) 40 mg tablet 10/13/2006 Active omeprazole (PRILOSEC) 20 mg capsule 10/13/2006 Active finasteride (PROSCAR) 5 mg tablet 10/13/2006 Active metroNIDAZOLE (METROGEL) 0.75 % Gel Apply twice daily to rosacea for six weeks then apply once daily or every other day. 45 g 5 10/04/2021 Active aspirin EC 81 mg EC (DR) tablet Take 81 mg by mouth Daily. Active erythromycin (Romycin) 5 mg/gram (0.5 %) Ointment APPLY 1/2 INCH RIBBON ON RIGHT EYE TWICE DAILY RUB AROUND UPPER AND LOWER EYELIDS FOR 7 DAYS 08/22/2022 Active gabapentin (Neurontin) 300 mg capsule Take 300 mg by mouth nightly. 11/08/2022 Active metoprolol succinate XL (Toprol-XL) 25 mg ER 24 hr tablet Take 25 mg by mouth daily. Active cholecalciferol, Vitamin D3, 50 mcg (2,000 unit) Capsule Take by mouth. Active Active Problems No known active problems Social History Tobacco Use Types Packs/Day Years Used Date Smoking Tobacco: Never Smokeless Tobacco: Never Sex and Gender Information Value Date Recorded Sex Assigned at Not on file Gender Identity Not on file Sexual Orientation Not on file Plan of Treatment Upcoming Encounters Date Type Department Care Team (Late st Contact Info) Description 02/12/2024 8:30 AM EDT Office Visit [facility] [place] [address] [place] [phone] Dustin Espinoza MD [address] [address] Health Maintenance Due Date Last Done Comments Hepatitis C Screening 09/17/1961 Tdap adult 09/17/1962 Tetanus vaccine 09/17/1962 Zoster vaccine (1 of 2) 09/17/1993 Advance Directive 09/17/1998 Pneumoccocal Vaccine: 65+ (1 of 1 - PCV) 09/17/2008 Covid-19 Vaccine ( - 2022-24 season) 2023 Influenza (Flu) vaccine (1 o f 1 - Influenza standard series) 02/15/2024 Care Teams Scenic Designer Relationship Specialty Start Date End Date Vianey Bocanegra APRN [address] [place] [address] PCP - General Family Medicine 10/04/21
--- OUTSIDE RECORDS SUMMARY | 2024-01-09 01:55 | XMS_ITS | Encounter Summary ---
Author Organization [facility] Address [address] [place] [address] Care Team Providers Care Machine Set Up Operator Name Role Phone Dereck Schultz MD Primary Care Provider U vinnyailpiero Encounter Details Date Type Department Care Team (Late st Contact Info) Description 09/14/2008 Before PRISM Converted Visit ([facility]) [facility] - Maple conversion [address] [place] [address] Asa Mcdonnell MD [address] [place] [phone] Social History Tobacco Use Types Packs/Day Years Used Date Smoking Tobacco: Never Assessed Sex and Gender Information Value Date Recorded Sex Assigned at Not on file Gender Identity Male 05/11/2019 13:17 EST Sexual Orientation Not on file documented as of this encounter Plan of Treatment Upcoming Encounters Date Type Department Care Team (Late st Contact Info) Description 04/09/2024 16:30 EDT Office Visit [facility] Center Hematology & Oncology - [facility] [address] [place], [place] [phone] Erin Barillas MD [address] [facility], Level 2 [place] [phone] 05/18/2024 10:00 EST Office Visit [facility] Rheumatology & Immunology - [facility] [address] [place] [address] Tod Perez NP [address] [facility], Level [address] [place] [phone] 06/03/2024 9:00 EST Ancillary Procedure [facility] [address] [place] [address] 06/03/2024 9:00 EST Office Visit [facility] [address] [place] [address] Claire Lopez NP [address] [facility] [address] [place] [phone] documented as of this encounter Procedures Procedure Name Priority Date/Time Associated Diagnosis Comments CYTOPATHOLOGY Routine 09/14/2008 0:00 EDT documented in this encounter Results * CYTOPATHOLOGY (09/14/2008 0:00 EDT) Pathology Report: CYTOPATHOLOGY REPORT ? Reports generated via electronic interface contain original data; ? however they are lacking the format of the original report. ? Caution should be taken when reading/interpreti ng unformatted reports. ? Name: ? COLGROVE, DEON ? Accession #: ? [id number] ? : ? 1945 (Age: 62) ??M ?Collect Date: ? 09/14/2008 ? Location: ? [facility] ? Receive Date: ? 09/15/2008 ? Provider: ? ASA FLORENCIO MD ? Copy to: ? Specimen Type: ? Urine, Voided ? Clinical History: ? Clinical diagnosis code: ??599.72 ? Gross Description: ? One vial of Cytolyt was received and processed by selective cellular ? enhancement technique. ? CYTOLOGIC DIAGNOSIS: ? Urine, voided, cytologic evaluation: ? 1. ?Negative for malignant cells. ? 2. ? Many degenerated urothelial cells. ? 3. ? Rare granular casts. ? Document reviewed and electronically signed by: ? ABDELMONEM ELHOSSEINY MD ? Report Date: ??09/15/2008 19:24 ? By the signature above, the attending physician certifies that he/she has ? personally conducted a gross and/or microscopic examination of the described ? specimens and rendered or confirmed the above diagnosis. ? End of Report ? [facility] 09/14/2008 09/15/2008 8:2 2 EDT Asa Mcdonnell MD PATHOLOGY ORDERABLES [facility] [address] [place] [address] documented in this encounter Visit Diagnoses Not on filedocumented in this encounter Care Teams Machine Set Up Operator Relationship Specialty Start Date End Date Dereck Schultz MD PCP - General 10/19/08 02/12/17 documented as of this encounter
--- OUTSIDE RECORDS SUMMARY | 2024-01-09 01:55 | XMS_ITS | Encounter Summary ---
Author Organization [facility] Address [address] [place] [address] Care Team Providers Care Layout Designer Name Role Phone Dereck Schultz MD Primary Care Provider U morgan Encounter Details Date Type Department Care Team (Late st Contact Info) Description 08/27/[address] [facility] Laboratory Services - [facility] [address] [place] [address] Luke Shen MD [address] [place] [id number] Social History Tobacco Use Types Packs/Day Years [...] CENTER Cancer Center Hematology & Oncology - [facility] [address] [place], [place] [address] Erin Barillas MD 111 [facility], Level 2 [place] [phone] 05/18/2024 10:[address] [facility] Rheumatology & Immunology - [facility] [address] [place] [address] Tod Perez NP 111 [facility], [address] [place] [phone] 06/03/2024 9:00 EST Ancillary Procedure [facility] [address] [place], [place] [address] 06/03/2024 9:00 EST Office Visit [facility] [address] [place] [address] Claire Lopez NP [address] [facility] [address] [place] [phone] documented as of this encounter Procedures Procedure Name Priority Date/Time Associated Diagnosis Comments SURGICAL PATHOLOGY Routine 08/27/2010 0:00 EDT documented in this encounter Results * SURGICAL PATHOLOGY (08/27/2010 0:00 EDT) Pathology Report: SURGICAL PATHOLOGY REPORT ? Reports generated via electronic interface contain original data; ? however they are lacking the format of the original report. ? Caution should be taken when reading/interpretin g unformatted reports. ? Name: ? COLGROVE, DEON ? Accession #: ? [id number] ? : ? 1945 (Age: 64) ??M ? Collect Date: ? 08/27/2010 ? Location: ? [facility] ? Receive Date: ? 08/27/2010 ? Provider: LUKE SHEN MD ? Copy to: DERECK MEIERDIERCKS MD ? Final Pathologic Diagnosis: ? A. ?Duodenum, biopsies: ? 1. ?Duodenal mucosa with villous blunting and increased intraepithelial lymphocytes. ??See comment. ? B. ?Stomach, body, biopsies: ? 1. ?Oxyntic mucosa with cystically dilated fundic glands. ??See comment. C. ?Esophagus, 38 cm, biopsies: ? 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 ? 2. ? Chronic inflammation and reactive epithelial changes. ? 3. ? No dysplasia identified. ? Comment: ? There is surface epithelial damage with increased intraepithelial ? lymphocytes and villous atrophy. 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 ??However, other conditions, such as bacterial overgrowth, chronic malnutrition or hypersensitivity to other proteins may produce similar findings. ??Serologic studies may be further contributory. ?? The stomach biopsy shows dilated fundic glands, raising the possibility of ? fundic gland polyp. Correlation with clinical and endoscopic findings is ? essential. ??(Dr. Brandon)/[facility] ? Document reviewed and electronically signed by: ? Jenni Cotton MD ? Report ??Date: 08/30/2010 11:20 ? By the signature above, the attending physician certifies that he/she has ? personally conducted a gross and/or microscopic examination of the described ? specimens and rendered or confirmed the above diagnosis. ? Specimen(s) Received: ? A. ?Duodenum bx ? B. ? Body of stomach bx ? C. ? Esophagus 38 cm bx ? Clinical History: ? Early satiety, 30 pound weight loss ? Gross Description: ? [facility] Deon Villanueva and duodenum ?? are two biopsies measuring 0.3 x 0.3 x 0.2 cm and 0.6 x 0.2 x 0.1 cm. ??The ? specimen is submitted intact as (A). ? [facility] labelled Deon Villanueva and #2 body of ? stomach bx are three polypoid biopsies which vary in size from 0.3 x 0.3 x 0.2 cm up to 0.5 x 0.3 x 0.3 cm. ??The specimen is submitted intact as (B). ? [facility] labelled Deon Villanueva and #3 esophagus 38 ?? cm bx are six biopsies which vary in size from 0.1 x 0.1 x 0.1 cm up to 0.5 x ?? 0.3 x 0.2 cm. ??The specimen is submitted intact as (C1) and (C2). ??(NITA ? [employer])/tmg ? End of Report ? [facility] 08/27/2010 08/27/2010 18: 00 EDT Luke Shen MD PATHOLOGY ORDERABLE S [facility] [address] [place] [address] documented in this encounter Visit Diagnoses Not on filedocumented in this encounter Care Teams Layout Designer Relationship Specialty Start Date End Date Dereck Schultz MD PCP - General 10/19/08 02/12/17 documented as of this encounter
--- OUTSIDE RECORDS SUMMARY | 2024-01-09 01:55 | XMS_ITS | Encounter Summary ---
Author Organization [facility] Address [address] [place] [address] Care Team Providers Care It Infrastructure Engineer Name Role Phone Dereck Schultz MD Primary Care Provider U navailable Reason for Visit * Reason Onset Date Comments Appointment Related 09/16/2013 09/22/13 Encounter Details Date Type Department Care Team (Late st Contact Info) Description 09/16/2013 Telephone [facility] Rheumatology & Immunology - [facility] [address] [place] [address] Major Turner MD Appointment Related (09/22/13) Social History Tobacco Use Types Packs/Day Years [...] pt with EMG appt day and time. * Telephone Encounter - Joselo Martelle - 09/16/2013 1639 EDT Remi Archibald pt is scheduled for EMG 09/22/13 at 9:15, check in 9:00 at [facility], no need to go to Registration. Requests we contact the pt and give them their number for call back - [phone]. documented in this encounter Plan of Treatment Upcoming Encounters Date Type Department Care Team (Late st Contact Info) Description 04/09/2024 16:30 EDT Office Visit [facility] Hematology & Oncology - [address] [phone] Erin Barillas MD [address] [place] [address], [facility] [address] [place] [phone] 05/18/2024 10:00 EST Office Visit [facility] Rheumatology & Immunology [address] [address] Tod Perez NP [address] [place] [address], [facility] [address] [place] [phone] 06/03/2024 9:00 EST Ancillary Procedure [facility] [address] [place] [phone] 06/03/2024 9:00 EST Office Visit [facility] [address] [place] [phone] Claire Lpoez NP [address] [place] [address] [facility]OB-A [address] [place] [phone] documented as of this encounter Visit Diagnoses Not on filedocumented in this encounter Care Teams It Infrastructure Engineer Relationship Specialty Start Date End Date Dereck Schultz MD PCP - General 10/19/08 02/12/17 documented as of this encounter
[2024-01-09 08:15] LABS: Abs Immature Grans 0.06 10^3/uL (0.0-0.06); Absolute Lymphocyte Count 1.45 10^3/uL (1.2-3.4); Absolute Monocyte Count 0.76 10^3/uL (0.1-0.8); Basophils % 0.9 %; Eosinophils % 1.7 %; HCT 46.8 % (40.0-50.0); HGB 13.1 g/dL (13.5-17.5); Immature Grans % 0.5 %; Lymphocytes % 12.4 %; MCH 21.7 pg (27.0-33.0); MCV 78 fL (80-95); Monocytes % 6.5 %; Platelet Count 307 10^3/uL (130-400); RBC 6.04 10^6/uL (4.36-5.78); RDW 20.5 % (11.8-14.1); RDW-SD 54.5 fL; WBC 11.66 10^3/uL (4.4-10.8)
[2024-01-09 08:17] LABS: Absolute Neutrophil Count 9.09 10^3/uL (1.2-6.7)
[2024-01-09 08:34] LABS: ALT 19 U/L (16-63); AST 15 U/L (15-37); Alkaline Phosphatase 80 U/L (46-116); Anion Gap 9.2 mmol/L (3-11); BUN 21 mg/dL (7-18); CO2 25.8 mmol/L (21.0-32.0); CREATININE 1.3 mg/dL (0.70-1.30); Calcium 9.1 mg/dL (8.5-10.1); Chloride 103 mmol/L (98-107); Estimated GFR 55.53 (mL/min/1.73m2); Glucose 128 mg/dL (74-106); Potassium 4.2 mmol/L (3.5-5.1); Sodium 138 mmol/L (136-145); Total Protein 7.3 g/dL (6.4-8.2)
[2024-01-09 08:38] LABS: Anisocytosis 2+; Diff Comment RBC Morph Reviewed; Polychromasia Present
[2024-01-09 08:39] LABS: Poikilocytes 1+
== END 2024-01-09 01:46 | disposition home or self-care (01) ==
PROVIDERS: PCP Nurse Practitioner Family; Visit Provider Nurse Practitioner Family
DX: Z79.899 Other long term (current) drug therapy (principal); M19.90 Unspecified osteoarthritis, unspecified site; M85.80 Other specified disorders of bone density and structure, unspecified site
CPT/HCPCS: 36415; 80053; 85025

== ENCOUNTER 2024-03-22 01:02 | Outpatient (CLI) | payer MEDICARE, BC, SELFPAY ==
--- NOTE | 2024-03-22 | DI.DEXA_ITS ---
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 COMPARISON: CR XR DEXA BONE DENSITY W/WO REY from 10/11/2021 FINDINGS: Performed on a Hologic unit. Lateral image: No compression fracture evident. Lumbar Spine total T-score: -1.0. Previous reading in 2021 was -1.5 Hip total T-score:-1.7. Previous reading in 2021 was -1.8 Independent reading at the level of the femoral neck yields T-score of -1.5 Forearm total T-score: -1.7 IMPRESSION: Bone mineral density measures in the osteopenia range. Fracture risk is moderate. Note: Any spine fracture indicates 5x risk for subsequent spine fracture and 2x risk for subsequent h ip fracture. World Health Organization criteria for BMD interpretation classify patients: Normal...... T- Score at or above -1.0 Osteopenic... T- Score between -1.0 and -2.5 Osteoporosis... T-Score at or below -2.5
== END 2024-03-22 01:22 ==
LOC: DI 01:03
PROVIDERS: PCP Nurse Practitioner Family; Visit Provider Nurse Practitioner Family
DX: M85.89 Other specified disorders of bone density and structure, multiple sites (principal)
CPT/HCPCS: 77080

== ENCOUNTER 2024-04-05 02:29 | Outpatient (CLI) | payer MEDICARE, BC, SELFPAY ==
[2024-04-05 08:33] LABS: Abs Immature Grans 0.12 10^3/uL (0.0-0.06); Absolute Basophil Count 0.08 10^3/uL (0.0-0.2); Absolute Eosinophil Count 0.26 10^3/uL (0.0-0.7); Absolute Monocyte Count 0.75 10^3/uL (0.1-0.8); Absolute Neutrophil Count 7.85 10^3/uL (1.2-6.7); Basophils % 0.7 %; Eosinophils % 2.4 %; HCT 44.5 % (40.0-50.0); HGB 12.3 g/dL (13.5-17.5); Immature Grans % 1.1 %; Lymphocytes % 16.6 %; MCH 21.7 pg (27.0-33.0); MCHC 27.6 % (32.0-36.0); MCV 78 fL (80-95); Monocytes % 6.9 %; Neutrophils % 72.3 %; Platelet Count 298 10^3/uL (130-400); RBC 5.68 10^6/uL (4.36-5.78); RDW 19.9 % (11.8-14.1); RDW-SD 54.2 fL; WBC 10.86 10^3/uL (4.4-10.8)
[2024-04-05 09:01] LABS: ALT 15 U/L (16-63); AST 18 U/L (15-37); Albumin 3.8 g/dL (3.4-5.0); Alkaline Phosphatase 84 U/L (46-116); BUN 18 mg/dL (7-18); Bilirubin, Total 0.45 mg/dL (0.2-1.0); CREATININE 1.4 mg/dL (0.70-1.30); Calcium 9.2 mg/dL (8.5-10.1); Chloride 108 mmol/L (98-107); Estimated GFR 50.81 (mL/min/1.73m2); Glucose 136 mg/dL (74-106); Potassium 4.4 mmol/L (3.5-5.1); Sodium 143 mmol/L (136-145); Total Protein 7.4 g/dL (6.4-8.2)
[2024-04-05 09:48] LABS: Diff Comment RBC Morph Reviewed; Hypochromasia 2+; Polychromasia Present
== END 2024-04-05 02:30 | disposition home or self-care (01) ==
PROVIDERS: PCP Nurse Practitioner Family; Visit Provider Student in an Organized Health Care Education/Training Program
DX: D45 Polycythemia vera (principal)
CPT/HCPCS: 36415; 80053; 85025

== ENCOUNTER → 2024-05-21 07:56 | Outpatient (BNVA) | payer MEDICARE, BC, SELFPAY | PROVIDERS: PCP Nurse Practitioner Family; Visit Provider Urology | DX: N40.1 Benign prostatic hyperplasia with lower urinary tract symptoms (principal); N13.8 Other obstructive and reflux uropathy; R31.29 Other microscopic hematuria | CPT/HCPCS: 81003; 99214 ==

== ENCOUNTER 2024-10-15 02:55 | Outpatient (CLI) | payer MEDICARE, BC, SELFPAY ==
[2024-10-15 08:40] LABS: Abs Immature Grans 0.07 10^3/uL (0.0-0.06); Absolute Basophil Count 0.06 10^3/uL (0.0-0.2); Absolute Eosinophil Count 0.08 10^3/uL (0.0-0.7); Absolute Lymphocyte Count 1.16 10^3/uL (1.2-3.4); Absolute Monocyte Count 0.57 10^3/uL (0.1-0.8); Absolute Neutrophil Count 6.92 10^3/uL (1.2-6.7); Basophils % 0.7 %; Eosinophils % 0.9 %; HCT 43.5 % (40.0-50.0); HGB 12.9 g/dL (13.5-17.5); Immature Grans % 0.8 %; Lymphocytes % 13.1 %; MCH 27.4 pg (27.0-33.0); MCHC 29.7 % (32.0-36.0); MCV 92 fL (80-95); Monocytes % 6.4 %; Neutrophils % 78.1 %; Platelet Count 229 10^3/uL (130-400); RBC 4.71 10^6/uL (4.36-5.78); RDW 23.2 % (11.8-14.1); RDW-SD 78.4 fL; WBC 8.86 10^3/uL (4.4-10.8)
[2024-10-15 08:59] LABS: Anisocytosis 2+; Diff Comment RBC Morph Reviewed; Polychromasia Present
[2024-10-15 09:00] LABS: Poikilocytes 1+
[2024-10-15 09:31] LABS: ALT 21 U/L (16-63); AST 19 U/L (15-37); Alkaline Phosphatase 87 U/L (46-116); Anion Gap 7.6 mmol/L (3-11); BUN 19 mg/dL (7-18); Bilirubin, Total 0.4 mg/dL (0.2-1.0); CO2 28.4 mmol/L (21.0-32.0); CREATININE 1.3 mg/dL (0.70-1.30); Calcium 9.2 mg/dL (8.5-10.1); Chloride 105 mmol/L (98-107); Estimated GFR 55.19 (mL/min/1.73m2); Glucose 133 mg/dL (74-106); Potassium 4.3 mmol/L (3.5-5.1); Sodium 141 mmol/L (136-145); Total Protein 7.4 g/dL (6.4-8.2)
== END 2024-10-15 02:56 | disposition home or self-care (01) ==
PROVIDERS: PCP Nurse Practitioner Family; Visit Provider Student in an Organized Health Care Education/Training Program
DX: D45 Polycythemia vera (principal)
CPT/HCPCS: 36415; 80053; 85025

== ENCOUNTER → 2025-05-24 08:06 | Outpatient (BNVA) | payer MEDICARE, BC, SELFPAY | PROVIDERS: PCP Nurse Practitioner Family; Referring Provider Nurse Practitioner Family; Visit Provider Urology | DX: R31.29 Other microscopic hematuria (principal); N40.1 Benign prostatic hyperplasia with lower urinary tract symptoms; N13.8 Other obstructive and reflux uropathy; R35.0 Frequency of micturition; R39.15 Urgency of urination | CPT/HCPCS: 99213; 81002 ==